=== PATIENT | male | born 1950 | race Caucasian/White ===

== ENCOUNTER → 2017-02-18 | Outpatient (CLI) | payer MEDICARE ==
[2017-02-18 12:01] LABS: EKG EKG PERFORMED
[2017-02-18 12:52] LABS: Partial Thromboplastin Time 25.1 sec (22.0-30.0); Prothrombin Time 10.5 sec (9.0-12.0)
[2017-02-18 12:54] LABS: Appearance,Urine Clear (Clear); Bilirubin,Urine Negative (Negative); Glucose,Urine (UA) Negative (Negative); Ketones,Urine Negative (Negative); Leukocyte Esterase,Urine Negative (Negative); Nitrite,Urine Negative (Negative); Protein,Urine Trace (Negative); Specific Gravity,Urine 1.013 (1.001-1.035); UA Billing (MACRO vs. MICRO) CHEM; Urobilinogen,Urine <2.0 mg/dL (<2.0)
[2017-02-18 12:55] LABS: Basophils # (A) 0.1 k/uL (0-0.2); Basophils % (A) 1 %; CH 31.2; CHCM 33.3; Eosinophils # (A) 0.5 k/uL (0-0.7); Eosinophils % (A) 6 %; HCT 42.7 % (39.0-53.0); HGB 13.6 gm/dL (13.0-17.5); Luc # (Auto) 0.16; Luc % (Auto) 2; Lymphocytes % (A) 11 %; MCHC 31.8 g/dL (31.0-37.0); MCV 94.2 fL (80.0-100.0); Mean Platelet Volume 8.2; Monocytes # (A) 0.8 k/uL (0-1.0); Monocytes % (A) 9 %; Neutrophils # (A) 6.2 k/uL (1.3-7.7); Neutrophils % (A) 71 %; RBC 4.53 m/uL (4.30-5.90); RDW 14.7 % (11.5-15.5); WBC 8.7 k/uL (3.8-10.6); WBC (Perox) 8.72
[2017-02-18 12:58] LABS: Anion Gap 9 mmol/L; Blood Urea Nitrogen 23 mg/dL (9-20); Calcium 9.7 mg/dL (8.4-10.2); Carbon Dioxide 23 mmol/L (22-30); Chloride 108 mmol/L (98-107); Glucose 161 mg/dL (74-99); Non-African American GFR(MDRD) >60 (>60 ml/min/1.73 sqM); Potassium 5.4 mmol/L (3.5-5.1); Sodium 140 mmol/L (137-145)
--- NOTE | 2017-02-18 13:02 | XR ---
EXAMINATION TYPE: XR chest 2V DATE OF EXAM: 02/18/2017 COMPARISON: Chest x-ray February 12, 2017 HISTORY: Presurgical study TECHNIQUE: Frontal and lateral views of the chest are obtained. FINDINGS: Background of chronic emphysematous changes felt present. There is some eventration of righ t hemidiaphragm with blunting of right posterior costophrenic angle suggesting new tiny right pleural effusion. There is some residual right basilar scarring and/or atelectasis redemonstrated. Left idris g remains clear. The cardiac silhouette size is stable and upper limits of normal. Surgical changes b ilateral humeral heads is partially imaged. IMPRESSION: Chronic emphysematous change with new small right pleural effusion and patchy right basil ar scarring and/or atelectasis redemonstrated.
== END | disposition home or self-care (01) ==
LOC: LABWHC1 11:30
PROVIDERS: ATTEND Orthopaedic Surgery Orthopaedic Surgery of the Spine
DX: Z01.818 Encounter for other preprocedural examination (principal); M48.00 Spinal stenosis, site unspecified; J43.9 Emphysema, unspecified; J90 Pleural effusion, not elsewhere classified; Z79.01 Long term (current) use of anticoagulants; Z01.810 Encounter for preprocedural cardiovascular examination
CPT/HCPCS: 36415; 71020; 80048; 81003; 85025; 85610; 85730; 93005

== ENCOUNTER → 2017-02-20 | Outpatient (CLI) | payer MEDICARE | END | disposition home or self-care (01) | LOC: LABPAT 13:48 | PROVIDERS: ATTEND Physician Assistant | DX: Z01.812 Encounter for preprocedural laboratory examination (principal) | CPT/HCPCS: 87070 ==

== ENCOUNTER 2017-02-27 06:17 | Inpatient (IN) | payer MEDICARE ==
[2017-02-19 12:45] VITALS: BMI 29.5
[~2017-02-27 06:17] MED LIST: BACITRACIN 50,000 UNIT, POLYMYXIN B 500,000 UNIT in SODIUM CHLORIDE 0.9% IRRIGATIO 1,00... IRRIGATION ONE; HYDROmorphone 1 MG/ML 1 ML SYRINGE IVP PRN; LACTATED RINGERS 1,000 ML IV SCH; LIDOCAINE 1% 20 ML VIAL (10MG/ML) FOR IV START INTRADERMA PRN; ONDANSETRON 4 MG/2 ML VIAL IVP ONE; SCOPOLAMINE 1.5MG/72HR PATCH TRANSDERM ONE; ceFAZolin 2 GM in SODIUM CHLORIDE 0.9% 100 ML IVPB ONE
[2017-02-27 07:17] LABS: Glucose,Whole Blood 142 mg/dL (75-99)
[2017-02-27] MEDS: LACTATED RINGERS 1,000 ML IV SCH (07:18)
[2017-02-27 08:08] LABS: Basophils # (A) 0.1 k/uL (0-0.2); Basophils % (A) 1 %; CHCM 33.2; Eosinophils # (A) 0.4 k/uL (0-0.7); Eosinophils % (A) 5 %; HCT 38.3 % (39.0-53.0); HDW 2.85; HGB 12.3 gm/dL (13.0-17.5); Luc # (Auto) 0.14; Luc % (Auto) 2; Lymphocytes # (A) 1.1 k/uL (1.0-4.8); Lymphocytes % (A) 12 %; MCH 30.2 pg (25.0-35.0); MCHC 32.1 g/dL (31.0-37.0); Monocytes # (A) 0.8 k/uL (0-1.0); Monocytes % (A) 9 %; Neutrophils # (A) 6.1 k/uL (1.3-7.7); Neutrophils % (A) 71 %; RBC 4.08 m/uL (4.30-5.90); RDW 14.3 % (11.5-15.5); WBC 8.6 k/uL (3.8-10.6); WBC (Perox) 8.84
[2017-02-27] MEDS ORDERED: GLYCOPYRROLATE 0.2 MG/ML 2 ML VIAL ONE (08:25)
[2017-02-27] MEDS ORDERED: SUCCINYLCHOLINE CHLORIDE 100 MG/5 ML SYR IV ONE (08:25)
[2017-02-27] MEDS ORDERED: ePHEDrine SULFATE/0.9% NACL/PF 50 MG/5 ML SYRINGE IV ONE (08:25)
[2017-02-27] MEDS ORDERED: PHENYLEPHRINE-0.9% NACL SYG 1 MG/10 ML SYRINGE ONE (08:25)
[2017-02-27] MEDS ORDERED: PROPOFOL 10 MG/ML 20 ML VIAL IV ONE (08:25)
[2017-02-27] MEDS ORDERED: fentaNYL (PF) 50 MCG/ML 2 ML AMP ONE (08:25)
[2017-02-27] MEDS ORDERED: HYDROmorphone (PF) 1 MG/ML ONE (08:25)
[2017-02-27] MEDS ORDERED: MIDAZOLAM 2 MG/2 ML VIAL ONE (08:25)
[2017-02-27 08:34] LABS: Potassium 5.2 mmol/L (3.5-5.1)
[2017-02-27] MEDS ORDERED: THROMBIN (BOVINE) 5,000 UNIT VIAL TOPICAL ONE (08:59)
[2017-02-27] MEDS ORDERED: GELATIN SPONGE,ABSORB (SMALL) 1 EACH SPONGE TOPICAL ONE (08:59)
[2017-02-27] MEDS ORDERED: BUPIVACAINE (PF) 0.25% 30 ML VIAL SQ ONE (08:59)
[2017-02-27] MEDS ORDERED: SODIUM CHLORIDE 0.9% 1,000 ML IV ONE ×3 (09:15→12:42)
[2017-02-27] MEDS: BUPIVACAINE LIPOSOME/PF 1.3% 20 ML, BUPIVACAIN-EPI 0.5%-1:200,000 25 ML, SODIUM CHLORID... MISCELLANE ONE ×6 (10:48→13:11)
[2017-02-27] MEDS ORDERED: SODIUM CHLORIDE 0.9% (PF) 10 ML VIAL ONE (10:48)
[2017-02-27] MEDS ORDERED: MAGNESIUM HYDROXIDE 2,400 MG/10 ML CUP PO PRN (13:37)
[2017-02-27] MEDS ORDERED: BENZOCAINE/MENTHOL LOZENG 1 EACH LOZENGE MUCOUS MEM PRN (13:37)
[2017-02-27] MEDS ORDERED: ONDANSETRON 4 MG/2 ML VIAL IVP PRN (13:38)
[2017-02-27] MEDS ORDERED: HYDROcodone/APAP 5-325MG 1 EACH TAB PO PRN (13:38)
[2017-02-27] MEDS ORDERED: IPRATROPIUM 0.5 MG/2.5 ML NEBU INHALATION PRN (13:44)
--- NOTE | 2017-02-27 13:54 | P.OP ---
Date of Procedure: 02/27/17 Preoperative Diagnosis: Spinal stenosis L3 4 L4 5 Spondylolisthesis L4 5 Neurogenic claudication Lower extremity radiculopathy Low back pain History of prior laminectomy decompression L4 5 Postoperative Diagnosis: Same Anesthesia: GETA Pathology: none sent Condition: stable Disposition: PACU Description of Procedure: DESCRIPTION OF PROCEDURE(S): BRIEF OPERATIVE NOTE Preoperative Diagnosis: Spinal stenosis, spondylolisthesis L4 5, degenerative disc disease, neurogenic claudication, lower extremity radiculopathy, history of prior laminectomy L4 5 Postoperative Diagnosis: Same Procedure: Laminectomy and decompression L3 4 with wide bilateral foraminotomies and facetectomy on the left Laminectomy and revision compression L4 5 with bilateral foraminotomy and facetectomy on the left Minimally invasive Posterior lateral decompression and fusion L3 4 L4 5 Minimally invasive Transforaminal lumbar interbody fusion for a 360 fusion L3 4 L4 5 Discectomy for decompression L3 4 L4 5 Placement of interbody graft L3 4 L4 5 Harvesting of bone marrow aspirate be of the pedicle of L3 on the right Local autogenous bone grafting Use of Cell Saver Use of bone graft extenders Surgeon: Dr. Lin Video Manager: Floyd Baer is present throughout the entire the case persistence during positioning, dissection, exposure, visualization, and all crucial elements of the case as well as closure. Anesthesia: General anesthesia per Dr. Dr. Zacarias Estimated blood loss: Approximately 750 mL Complications: None apparent Components implanted: K2M minimally invasive Festus pedicle screw system with 6 screws measuring 6.5 x 50 mm 2 rods measuring 70 mm and 2 [place] interbody cages with 1 asked to empty sponge and 30 mL of fibrous bone matrix to supplemental local autogenous bone graft Disposition: To recovery room in good stable condition. OPERATIVE INDICATIONS The patient has had long-standing issues in their lower back and lower extremities. He was having progressive pain in his lower back with worsening radicular symptoms and neurogenic claudication his bilateral lower extremities much worse on the left than the right. He had been through history of decompression and his lumbar spine many years ago which had given him some relief but over the past several years has been having worsening symptoms. The patient has been through conservative treatment. He is not having any prolonged relief despite conservative treatment for his lumbar spine. We discussed various treatment options including surgery, and the patient wishes to proceed with surgery We discussed the risk, patient's alternatives and benefits of surgery including but not limited to, risk of bleeding risk of infection, risk of need for further surgery, risk of decreased, loss of motion, muscle function, malunion nonunion, hardware failure, nerve damage, paralysis, heart attack, blindness and . OPERATIVE SUMMARY After discussing all the risks, patient alternatives and benefits at length, the patient elected to proceed with surgical intervention, signed informed consent, and presented for their procedure. The patient was seen and examined in the preoperative holding area and the surgical site was marked. The patient was given antibiotics and brought to the operating room. The patient was sedated and intubated by anesthesia in standard fashion. The patient was positioned on to the operating room table in a prone position on the appropriate frame which was well-padded and well molded. We were careful to pad any bony prominences and pressure points. We were careful to maintain the patient's cervical spine and good neutral alignment and position throughout. The patient was prepped and draped in a normal standard fashion. An appropriate timeout and keystone protocol performed. We were able to proceed with the surgery. The local wound area was infiltrated with local anesthetic. I was able utilize C-arm guidance to establish appropriate position over the pedicles bilaterally at the appropriate levels at L3 4 and 5. With the appropriate levels confirmed was able to make small stab incisions over the appropriate pedicle sites bilaterally. Utilizing C-arm in his house able to establish a Jamshidi needle over the lateral aspect of the pedicle and advanced the trocar into the pedicle being careful not to breech superiorly inferiorly medially or laterally. Position was confirmed regularly with AP and lateral images on C-arm. I was able to establish the trocar into the pedicle appropriately into the posterior aspect of the vertebral body bilaterally at the appropriate levels at L3 4 and 5. This was done at each of the pedicle positions and each of the vertebrae. At L3 on the right I used a device with the Jamshidi needle and the syringe to aspirate bone marrow from the vertebral body of the pedicle of L3 on the right. This was utilized to supplemental local autogenous bone graft and bone supplement. At each of the levels I was able place the guidewire into the trocar and into the vertebral body appropriately under C-arm guidance. Dissection was taken down over the wire to the appropriate starting position for the screw placed. The appropriate length screw was chosen, threaded over the guidewire and screwed appropriately into the pedicle and vertebral body under C-arm guidance in excellent alignment and position with good bony purchase. This is done at each of the screw sites at the appropriate levels at L3-L4 and L5 bilaterally. With the screws intact I extended the incision to connect the screw hole sites on the most symptomatic side on the left. I dissected down to establish access over the pars and lamina to the base of the spinous process. I was able to expose the facet joint. The capsule the facet was taken down and showed some facet arthrosis at the joint. I was able to use a combination of curettes and Kerrison rongeurs and a high-speed drill to take down the facet joint and do a facetectomy. Partial laminectomy was also performed. I was able get excellent foraminal decompression and central decompression with undermining across midline to perform a laminectomy centrally and contralaterally. As able get good central decompression. The ligamentum flavum was taken down to further decompress centrally and at bilateral neural foramen. I was able to expose the disc space and visualize the traversing nerve root. Note was made of some disc protrusion at the level causing further compression of the nerve root. I was able to establish a annulotomy at the appropriate level protecting soft tissue and neural structures. No was made of some disc desiccation at the disc. I performed a complete discectomy with accommodation of curettes and rasps and scrapers. I was able get good endplate preparation at the disc space. I sized for the appropriate size interbody spacer protecting the soft tissue and neural structures. The wound was copiously irrigated and suctioned dry. There is no evidence of any dural tear or leak. I was able to pack the disc space with local autogenous bone graft as well as a small amount of infuse which was also placed into the interbody cage itself. Protecting the soft tissue structures and neural structures I was able place the interbody cage in good alignment and good position with good fit and fill at the interbody space. His issues was confirmed with C-arm guidance. This was done first at L4 5 and then at L3 4 in similar fashion. Good hemostasis maintained. There is no evidence of any dural tear or leak. The wound was irrigated and suctioned dry. With the hardware intact, intraoperative C-arm imaging was again taken which showed good alignment and position of the hardware at the appropriate levels at L3 4 and L4 5. We were then able to measure, contour and place the rods and appropriate hardware bilaterally. I was able to place capcrews, tighten them down, and shear them off appropriately. The sheared portion was counted and accounted for. With this intact I was able to place the local autogenous bone graft with additional bone graft enhancer as necessary into the posterior lateral gutters over the decorticated transverse processes. The remainder of the bone graft was placed over the facet joint on the contralateral side after taking down the facet joint capsule. With the bone graft intact, a stable construct, and good decompression at the appropriate levels, we were able to proceed with closure. Good hemostasis was maintained. There is no evidence of dural tear or leak. The fascia was closed for a watertight closure. he subcuticular tissue was closed with absorbable suture. The wound was cleaned and dried and dressed with the appropriate dressing. The drapes were broken down. The patient was gently rolled back onto their hospital bed being careful to maintain their cervical spine and good neutral alignment and position. They were woken up by anesthesia, extubated, and brought to the recovery room in good stable condition. The patient will be admitted to the hospital for appropriate postoperative care , medical management and monitoring. We will continue to follow them closely about the postoperative course.
[2017-02-27] MEDS ORDERED: MIDAZOLAM 2 MG/2 ML VIAL IV ONE (13:57)
[2017-02-27] MEDS: HYDROmorphone 0.5 MG/0.5 ML SYRINGE IVP PRN ×2 (14:12→14:27)
--- NOTE | 2017-02-27 14:22 | FL ---
Fluoroscopy History: MIN INVASIVE LUMBAR FUSION 2 MIN 22 SEC FL TIME USED DURING MIN. INVASIVE LUMBAR FUSION
--- NOTE | 2017-02-27 14:23 | XR ---
EXAMINATION TYPE: XR lumbar spine 2 or 3V DATE OF EXAM: 02/27/2017 CLINICAL HISTORY: MIN INVASIVE LUMBAR FUSION TECHNIQUE: 2 paper images submitted. COMPARISON: None Pedicular screws are seen bilaterally at L3-L4 and L5.
[2017-02-27 14:35] LABS: Glucose,Whole Blood 182 mg/dL (75-99)
[2017-02-27] MEDS: HYDROmorphone 1 MG/ML 1 ML SYRINGE IVP PRN ×2 (16:15→22:44)
[2017-02-27 16:39] LABS: Glucose,Whole Blood 154 mg/dL (75-99)
[2017-02-27] MEDS: IPRATROPIUM-ALBUTEROL 3 ML NEB INHALATION PRN ×2 (16:43→20:26)
[2017-02-27] MEDS: HYDROcodone/APAP 5-325MG 1 EACH TAB PO PRN ×2 (17:01→21:04)
[2017-02-27] MEDS: metFORMIN 500 MG TAB PO SCH (17:02)
[2017-02-27] MEDS: REPAGLINIDE 1 MG TAB PO SCH (17:03)
[2017-02-27] MEDS: INSULIN LISPRO (humaLOG) 300 UNIT/3 ML VIAL SQ SCH ×2 (17:41→21:13)
[2017-02-27] MEDS: ceFAZolin 2 GM in SODIUM CHLORIDE 0.9% 100 ML IVPB SCH ×2 (17:41→23:31)
[2017-02-27] MEDS: SODIUM CHLORIDE 0.9% 1,000 ML IV SCH (17:46)
[2017-02-27] MEDS: Acetaminophen-Codeine 300-30mg TAB PO PRN (19:54)
[2017-02-27] MEDS: SYMBICORT 80-4.5 MCG INHALER INHALATION SCH (20:26)
[2017-02-27 20:41] LABS: Hemoglobin A1C 6.5 % (4.2-6.1)
[2017-02-27 20:59] LABS: Glucose,Whole Blood 153 mg/dL (75-99)
[2017-02-27] MEDS: ATORVASTATIN 40 MG TAB PO SCH (21:16)
[2017-02-28] MEDS: HYDROcodone/APAP 5-325MG 1 EACH TAB PO PRN ×6 (01:07→23:28)
[2017-02-28] MEDS: Acetaminophen-Codeine 300-30mg TAB PO PRN (02:06)
[2017-02-28] MEDS: CALCIUM CARBONATE 500 MG CHEWABLE PO PRN ×3 (03:36→17:23)
[2017-02-28] MEDS: HYDROmorphone 1 MG/ML 1 ML SYRINGE IVP PRN ×2 (03:37→07:58)
[2017-02-28] MEDS: SODIUM CHLORIDE 0.9% 1,000 ML IV SCH ×3 (03:37→19:21)
[2017-02-28] MEDS: LACTATED RINGERS 1,000 ML IV SCH (06:45)
[2017-02-28 06:59] LABS: Glucose,Whole Blood 150 mg/dL (75-99)
[2017-02-28] MEDS: IPRATROPIUM-ALBUTEROL 3 ML NEB INHALATION PRN (07:29)
[2017-02-28] MEDS: SYMBICORT 80-4.5 MCG INHALER INHALATION SCH ×2 (07:29→20:52)
[2017-02-28 07:51] LABS: Anion Gap 8 mmol/L; Blood Urea Nitrogen 11 mg/dL (9-20); Calcium 8.9 mg/dL (8.4-10.2); Carbon Dioxide 23 mmol/L (22-30); Chloride 108 mmol/L (98-107); Glucose 132 mg/dL (74-99); Non-African American GFR(MDRD) >60 (>60 ml/min/1.73 sqM); Potassium 5.2 mmol/L (3.5-5.1); Sodium 139 mmol/L (137-145)
[2017-02-28 08:07] LABS: Basophils # (A) 0.1 k/uL (0-0.2); Basophils % (A) 1 %; CH 30.9; CHCM 32.4; Eosinophils # (A) 0.3 k/uL (0-0.7); Eosinophils % (A) 2 %; HCT 33.1 % (39.0-53.0); HDW 2.76; HGB 10.5 gm/dL (13.0-17.5); Luc # (Auto) 0.12; Luc % (Auto) 1; Lymphocytes # (A) 0.6 k/uL (1.0-4.8); Lymphocytes % (A) 5 %; MCH 30.6 pg (25.0-35.0); MCHC 31.9 g/dL (31.0-37.0); Mean Platelet Volume 8.3; Monocytes # (A) 1.1 k/uL (0-1.0); Monocytes % (A) 9 %; Neutrophils # (A) 10.5 k/uL (1.3-7.7); Neutrophils % (A) 83 %; RBC 3.45 m/uL (4.30-5.90); RDW 14.1 % (11.5-15.5); WBC 12.6 k/uL (3.8-10.6); WBC (Perox) 13.49
[2017-02-28] MEDS: VIT A,C & E-LUTEIN-MINERALS 1 EACH TAB PO SCH (08:24)
[2017-02-28] MEDS: INSULIN LISPRO (humaLOG) 300 UNIT/3 ML VIAL SQ SCH ×4 (08:24→20:31)
[2017-02-28] MEDS: REPAGLINIDE 1 MG TAB PO SCH ×3 (08:25→17:24)
[2017-02-28] MEDS: ASPIRIN 325 MG TAB PO SCH (08:25)
[2017-02-28] MEDS: SENNOSIDES-DOCUSATE SODIUM 1 EACH TAB PO SCH (08:25)
[2017-02-28] MEDS: metFORMIN 500 MG TAB PO SCH ×2 (08:25→17:24)
[2017-02-28] MEDS: LISINOPRIL 20 MG TAB PO SCH (08:26)
[2017-02-28] MEDS: METOPROLOL TARTRATE 25 MG TAB PO SCH (08:26)
[2017-02-28] MEDS ORDERED: NICOTINE POLACRILEX 2 MG GUM BUCCAL PRN (08:40)
[2017-02-28] MEDS ORDERED: NON-FORMULARY DRUG (Liraglutide [Victoza 3-Pak] 1.8 MG) SQ SCH (09:00)
--- NOTE | 2017-02-28 09:34 | CONS ---
CONSULTATION DATE OF CONSULTATION: 02/27/2017 REASON FOR CONSULTATION: Medical management requested by Dr. Lin. CONSULTATION: This is a patient I saw yesterday evening on 3 surgical floor. Patient is a pleasant 67-year-old patient who follows with Dr. Leal. The patient has undergone lumbar surgery by Dr. Lin. Post procedure, patient had some pain lying in bed. Patient has difficulty getting around, Patient's chronic stable medical conditions include diabetes, hyperlipidemia, hypertension and coronary artery disease. Currently no nausea, vomiting. The patient at the baseline had slight shortness of breath. Patient did eat a small amount of supper. REVIEW OF SYSTEMS: CONSTITUTIONAL: None. HEENT: Decreased hearing with hearing aid. RESPIRATORY: Mild baseline shortness of breath. CARDIOVASCULAR: None. GASTROINTESTINAL: None. GENITOURINARY: Mooney catheter. DERMATOLOGICAL: None. HEMATOLOGICAL: None. LYMPHATIC: None. PSYCHIATRY: None. NEUROLOGICAL: None. MUSCULOSKELETAL: Chronic low back pain with some radiculopathy. PAST MEDICAL HISTORY: Diabetes mellitus type 2, hyperlipidemia, hypertension, coronary artery disease with stent. PAST SURGICAL HISTORY: Back surgery, cardiac cath with stent, joint replacement, bilateral knee replacement, bilateral shoulder surgery, lumbar decompression of L1. SOCIAL HISTORY: Smokes a pack a day. , no alcohol. FAMILY HISTORY: Reviewed, noncontributory to presentation. HOME MEDICATIONS: Glucophage 1000 mg p.o. b.i.d., PreserVision 1 capsule p.o. daily, stool softener 1 tablet p.o. daily p.r.n., Prandin 0.5 p.o. a.c. t.i.d., 10 mg p.o. daily, metoprolol 25 p.o. daily, Victoza 1.8 mg subcu in the morning, Combivent Respimat 2 puffs q.i.d. p.r.n., Atrovent nebulizers q.i.d. p.r.n., Neurontin 300 mg p.o. t.i.d. p.r.n., Symbicort 80/4.5 b.i.d., Lipitor 40 mg q.h.s., aspirin 325 mg p.o. daily, Tylenol No. 3 one tablet q.6 p.r.n. ALLERGIES: None. PHYSICAL EXAMINATION: Temperature 97, pulse 53, respiratory 18, blood pressure 135/75, pulse ox 96% on 2 L. GENERAL APPEARANCE: Average build, lying in bed, slightly uncomfortable. EYES: Pupils equal, conjunctivae normal. HEENT: External appearance of nose, ear, oral cavity normal. Hearing aid in place. NECK: JVD unable to assess. Mass not palpable. Respiratory effort normal. LUNGS: Diminished breath sounds. CARDIOVASCULAR: First and second sounds normal. No edema. ABDOMEN: Soft, nontender. Liver and spleen not palpable. LYMPHATICS: No lymph node palpable in the neck or axillae. PSYCHIATRY: Alert and oriented x3. Mood and affect normal. LOWER EXTREMITIES: Venodyne boots in place. MUSCULOSKELETAL: Dressing over the lumbar spine.. INVESTIGATIONS: White count 8.6, hemoglobin 12.3, potassium 5.2, Accu-Cheks noted, HGB A1c is 6.5. ASSESSMENT: 1. Patient has undergone laminectomy and decompression in the lumbar area with a diagnosis of spinal stenosis, L3, L4 and L5, spondylolisthesis at L4-5, neurogenic claudication, lower extremity radiculopathy. 2. Coronary artery disease with prior history of stent. 3. Diabetes mellitus, type 2. Chronically on oral hyperglycemic. 4. Hyperlipidemia. 5. Essential hypertension. 6. Hard of hearing, uses hearing aids. 7. Chronic nicotine dependence. Patient is an active cigarette smoker. 8. Chronic obstructive pulmonary disease in a current smoker. PLAN: Home medication will be resumed. Accu-Cheks will be followed. Will put the patient on scheduled nebulizers. Pain control per the Primary Team. Patient has got Venodyne boots for DVT prophylaxis. Care was discussed with the patient. Questions were answered. Thank you, Dr. Lin. MMODL / IJN: [id number] /
[2017-02-28] MEDS: GABAPENTIN 300 MG CAP PO PRN ×2 (09:41→17:24)
[2017-02-28] MEDS: NICOTINE 21MG/24HR PATCH TRANSDERM SCH (09:41)
--- NOTE | 2017-02-28 09:50 | P.PN ---
Progress Note - Text Postoperative day #1 Patient is seen and examined today at bedside. The patient has some pain around the surgical site as expected. Pain is being controlled with medication. He feels that his left lower extremity numbness and tingling is gone. He feels encouraged by the improvement at his left lower extremity. He was able to tolerate some breakfast this morning. Physical Exam Afebrile with stable vital signs Abdomen is soft nontender. Chest has good excursion deep and space expiration The incision site is clean dry and intact. No erythema there is no purulence. Dressing is clear Extremities have not had neurologic change from prior to surgery. He has sustained dorsal flexion plantarflexion and EHL intact bilateral lower extremities Calves and thighs were soft nontender without evidence of DVT. Assessment/Plan Postoperative day #1 status post minimally invasive decompression and fusion L3 4 and L4 5 for his spinal stenosis with spondylolisthesis and degenerative disease with lower extremity radiculopathy The patient's lower extremity symptoms have improved well already with his surgery. Patient is progressing as expected from the surgery. We will continue to increase the patient's mobilization with therapy. He was already able to get up out of bed and get to the bathroom and we'll continue to increase his mobilization over the next day or 2. We will continue pain control with oral or IV medications. We'll continue to follow patient closely.
[2017-02-28] MEDS: HYDROmorphone 0.5 MG/0.5 ML SYRINGE IVP PRN ×3 (11:09→21:40)
[2017-02-28] MEDS: IPRATROPIUM-ALBUTEROL 3 ML NEB INHALATION SCH ×4 (11:25→20:53)
[2017-02-28 11:38] LABS: Glucose,Whole Blood 183 mg/dL (75-99)
[2017-02-28 16:29] LABS: Glucose,Whole Blood 117 mg/dL (75-99)
[2017-02-28 18:01] LABS: Appearance,Urine Clear (Clear); Bilirubin,Urine Negative (Negative); Glucose,Urine (UA) Negative (Negative); Ketones,Urine Negative (Negative); Leukocyte Esterase,Urine Negative (Negative); Mucus,Urine Rare /hpf; Nitrite,Urine Negative (Negative); Particle Count 641; Protein,Urine Negative (Negative); RBC,Urine 4 /hpf (0-5); Specific Gravity,Urine 1.005 (1.001-1.035); UA Billing (MACRO vs. MICRO) MICRO; Urobilinogen,Urine <2.0 mg/dL (<2.0); WBC,Urine 3 /hpf (0-5)
--- NOTE | 2017-02-28 18:16 | PN ---
PROGRESS NOTE I am covering for Dr. Bynum. INTERVAL HISTORY: This 67-year-old gentleman who was admitted after back surgery is being closely monitored. No chest pain. No palpitations. No fever. PHYSICAL EXAM: HEENT: Alert, oriented x3. VITAL SIGNS: Pulse 70, blood pressure 140/61, respirations 16, temperature 98 degrees, pulse ox 94% on 2 L. HEENT: Conjunctivae normal. NECK: Supple. No JVD. CARDIOVASCULAR: S1 and S2 muffled. LUNGS: Breath sounds diminished at the bases. Few scattered rhonchi and crackles, left more than right. ABDOMEN: Soft. NERVOUS SYSTEM: Status post surgery. LABORATORY DATA: WBC 12.7, hemoglobin 10.5, sodium 139, potassium 3.2. ASSESSMENT: 1. Status post laminectomy and decompression L3, L4, and L5, for spondylolysis. 2. Coronary artery disease with stent. 3. Diabetes type 2. 4. Chronic obstructive pulmonary disease. 5. Hyperlipidemia. 6. Hypertension. 7. Hard of hearing. 8. History of nicotine dependence. RECOMMENDATIONS AND DISCUSSION: In this 67-year-old gentleman who presented with multiple medical issues, we will monitor the patient closely. Continue the current management and symptomatic treatment. Otherwise recommend continue the bronchodilators and incentive spirometry. DVT prophylaxis. Closely follow with surgery. Further recommendations to follow. MMODL / IJN: [id number] /
[2017-02-28 20:19] LABS: Glucose,Whole Blood 180 mg/dL (75-99)
[2017-02-28] MEDS: ATORVASTATIN 40 MG TAB PO SCH (20:30)
[2017-03-01] MEDS: HYDROmorphone 0.5 MG/0.5 ML SYRINGE IVP PRN ×3 (01:26→09:39)
[2017-03-01] MEDS: GABAPENTIN 300 MG CAP PO PRN ×2 (02:07→20:30)
[2017-03-01] MEDS: HYDROcodone/APAP 5-325MG 1 EACH TAB PO PRN (04:05)
[2017-03-01] MEDS: SODIUM CHLORIDE 0.9% 1,000 ML IV SCH (06:04)
[2017-03-01] MEDS: LACTATED RINGERS 1,000 ML IV SCH (06:06)
[2017-03-01 07:15] LABS: Glucose,Whole Blood 164 mg/dL (75-99)
[2017-03-01 07:43] LABS: Basophils # (A) 0.1 k/uL (0-0.2); Basophils % (A) 1 %; CH 30.2; CHCM 31.4; Eosinophils # (A) 0.1 k/uL (0-0.7); Eosinophils % (A) 1 %; HCT 30.9 % (39.0-53.0); HDW 2.87; HGB 9.8 gm/dL (13.0-17.5); Hypochromasia Slight; Luc # (Auto) 0.22; Luc % (Auto) 2; Lymphocytes # (A) 0.7 k/uL (1.0-4.8); Lymphocytes % (A) 6 %; MCH 30.6 pg (25.0-35.0); MCHC 31.8 g/dL (31.0-37.0); MCV 96.5 fL (80.0-100.0); Mean Platelet Volume 7.9; Monocytes # (A) 1.1 k/uL (0-1.0); Monocytes % (A) 9 %; Neutrophils # (A) 10.1 k/uL (1.3-7.7); Neutrophils % (A) 82 %; RDW 13.7 % (11.5-15.5); WBC 12.3 k/uL (3.8-10.6); WBC (Perox) 13.08
--- NOTE | 2017-03-01 07:49 | P.PN ---
Progress Note - Text Orthopedic Spine Patient is a pleasant 67-year-old male who is seen and examined at the bedside following posterior lateral decompression and fusion performed Saturday. Patient states they are doing well postsurgically. He is not currently experiencing any lower extremity radiculopathy of the bilateral lower extremities. He had numbness and tingling prior to surgery but states his symptoms have completely resolved. He does have some soreness at the surgical sites, which are expected. He states he felt pretty well yesterday and ambulating multiple times which may have caused an increase in his back pain. He has felt increased tightness of his lumbar spine. He's been eating and voiding without significant difficulty. He has not had a bowel movement yet but his abdomen is soft and he is not feeling any abdominal pain. He states he has had some heartburn postsurgically that has been controlled with Tums. He is happy with his progress so far postsurgically. He is hoping to continue to improve today with plans to hopefully discharge home tomorrow, 03/02/2017. . Physical Exam Lumbar Fusion: Status post surgical day number 2 Patient is awake, alert, and oriented 3 Vital signs stable Good chest excursion with deep inspiration and expiration Abdomen soft nontender Dorsiflexion, plantarflexion, and extensor hallucis longus positive sustained bilaterally No signs or symptoms of DVT; no calf pain; pneumatic cuffs not currently intact bilateral lower extremities Dressing is dry and intact; no erythema, purulence, or signs of infection No active drainage from the incision sites No significant pain with palpation of the incision sites Dressing removed during physical examination and nonstick Telfa and Tegaderm reapplied Neurovascularly intact bilaterally lower extremities Assessment: Minimally Invasive Posterior lateral decompression and fusion L3-4 and L4-5 Transforaminal lumbar interbody fusion 34 and L4-5 Neurogenic claudication L4-5 spondylolisthesis L3-4 and L4-5 spinal stenosis Low back pain Plan: 1. Ambulate as tolerated; work with Physical Therapy to increase mobilization 2. Continue pain control with IV and oral medications; we will plan to discontinue [place] 5 mg/325 mg and and [place] 7.5 mg/325 mg to try to better control his symptoms today. We will also add Valium 5 mg as needed every 8 hours for muscle spasms. We will plan to try to wean him off his IV Dilaudid today in anticipation for discharge home tomorrow. 3. Dressing changed to nonstick Telfa and Tegaderm 4. Medical management can continue to manage patient for patient's other medical issues 5. We will continue to follow the patient closely; patient continues to improve , we will plan for discharge home as early as tomorrow, 03/02/2017 6. Patient can follow-up with Floyd Amaya PA-C or Dr. Gamaliel Lin at [facility] in 2-3 weeks following discharge
[2017-03-01] MEDS: INSULIN LISPRO (humaLOG) 300 UNIT/3 ML VIAL SQ SCH ×4 (08:01→20:28)
[2017-03-01] MEDS: REPAGLINIDE 1 MG TAB PO SCH ×3 (08:02→18:18)
[2017-03-01] MEDS: metFORMIN 500 MG TAB PO SCH ×2 (08:02→18:18)
[2017-03-01] MEDS: HYDROcodone/APAP 7.5-325MG 1 EACH TAB PO PRN ×4 (08:46→20:29)
[2017-03-01] MEDS: LISINOPRIL 20 MG TAB PO SCH (08:47)
[2017-03-01] MEDS: ASPIRIN 325 MG TAB PO SCH (08:48)
[2017-03-01] MEDS: NICOTINE 21MG/24HR PATCH TRANSDERM SCH (08:48)
[2017-03-01] MEDS: METOPROLOL TARTRATE 25 MG TAB PO SCH (08:48)
[2017-03-01] MEDS: VIT A,C & E-LUTEIN-MINERALS 1 EACH TAB PO SCH (08:49)
[2017-03-01] MEDS: SENNOSIDES-DOCUSATE SODIUM 1 EACH TAB PO SCH (08:51)
[2017-03-01] MEDS: IPRATROPIUM-ALBUTEROL 3 ML NEB INHALATION SCH ×4 (09:11→19:29)
[2017-03-01] MEDS: SYMBICORT 80-4.5 MCG INHALER INHALATION SCH ×2 (09:12→19:29)
[2017-03-01] MEDS: DIAZEPAM 5 MG TAB PO PRN ×3 (10:48→23:34)
[2017-03-01 11:04] LABS: Glucose,Whole Blood 169 mg/dL (75-99)
[2017-03-01 17:35] LABS: Glucose,Whole Blood 130 mg/dL (75-99)
--- NOTE | 2017-03-01 19:02 | PN ---
PROGRESS NOTE DATE OF SERVICE: 03/01/2017 This 67-year-old gentleman with a past medical history of multiple medical problems was admitted after laminectomy and decompression at L3-4, L4-5. No chest pain. No palpitations. No fever. PHYSICAL EXAMINATION: On exam, alert and oriented x3. Pulse 77, blood pressure 99/61, respiration 16, temperature 98.4, pulse ox 91% on room air. HEENT: Conjunctivae normal. NECK: No jugular venous distention. CARDIOVASCULAR SYSTEM: S1, S2 muffled. RESPIRATORY: Breath sounds diminished at the bases. A few scattered rhonchi and crackles. Expiratory wheezing at present. ABDOMEN: Soft, non-tender. LEGS: No edema. No swelling. NERVOUS SYSTEM: No focal deficit.. LABS: WBC 12.6, hemoglobin 9.8. ASSESSMENT: 1. Status post laminectomy and decompression L3-4, L4-5 for spondylosis. 2. Coronary artery disease and stent. 3. Diabetes mellitus, type 2. 4. Chronic obstructive pulmonary disease. 5. Hyperlipidemia. 6. Hypertension. 7. Hard of hearing. 8. History of nicotine dependence. RECOMMENDATIONS AND DISCUSSION: I recommend to continue current management, continue symptomatic treatment, incentive spirometry. Closely monitor. Guarded prognosis. Closely follow with Surgery. Further recommendations to follow. MMODL / IJN: [id number] /
[2017-03-01 20:17] LABS: Glucose,Whole Blood 176 mg/dL (75-99)
[2017-03-01] MEDS: ATORVASTATIN 40 MG TAB PO SCH (20:28)
[2017-03-02] MEDS: HYDROcodone/APAP 7.5-325MG 1 EACH TAB PO PRN ×3 (00:36→04:40)
[2017-03-02] MEDS: GABAPENTIN 300 MG CAP PO PRN ×2 (04:36→13:35)
[2017-03-02] MEDS: LACTATED RINGERS 1,000 ML IV SCH (05:53)
[2017-03-02] MEDS: IPRATROPIUM-ALBUTEROL 3 ML NEB INHALATION SCH ×2 (07:14→11:04)
[2017-03-02] MEDS: SYMBICORT 80-4.5 MCG INHALER INHALATION SCH (07:14)
[2017-03-02] MEDS: INSULIN LISPRO (humaLOG) 300 UNIT/3 ML VIAL SQ SCH ×2 (07:46→12:28)
[2017-03-02 07:53] LABS: Glucose,Whole Blood 158 mg/dL (75-99)
[2017-03-02 07:54] LABS: Basophils # (A) 0.1 k/uL (0-0.2); Basophils % (A) 1 %; CHCM 32.9; Eosinophils # (A) 0.2 k/uL (0-0.7); Eosinophils % (A) 3 %; HCT 28.5 % (39.0-53.0); HDW 2.83; HGB 9.2 gm/dL (13.0-17.5); Luc # (Auto) 0.17; Luc % (Auto) 2; Lymphocytes # (A) 0.8 k/uL (1.0-4.8); Lymphocytes % (A) 8 %; MCH 30.8 pg (25.0-35.0); MCHC 32.4 g/dL (31.0-37.0); Mean Platelet Volume 8.4; Monocytes # (A) 0.8 k/uL (0-1.0); Monocytes % (A) 9 %; Neutrophils # (A) 7.2 k/uL (1.3-7.7); Neutrophils % (A) 78 %; RDW 14.1 % (11.5-15.5); WBC 9.3 k/uL (3.8-10.6); WBC (Perox) 9.84
[2017-03-02 08:00] VITALS: RESP 16
[2017-03-02] MEDS: metFORMIN 500 MG TAB PO SCH (08:01)
[2017-03-02] MEDS: ASPIRIN 325 MG TAB PO SCH (08:01)
[2017-03-02] MEDS: DIAZEPAM 5 MG TAB PO PRN (08:01)
[2017-03-02] MEDS: REPAGLINIDE 1 MG TAB PO SCH ×2 (08:01→13:35)
[2017-03-02] MEDS: LISINOPRIL 20 MG TAB PO SCH (08:02)
[2017-03-02] MEDS: METOPROLOL TARTRATE 25 MG TAB PO SCH (08:02)
[2017-03-02] MEDS: VIT A,C & E-LUTEIN-MINERALS 1 EACH TAB PO SCH (08:02)
[2017-03-02] MEDS: SENNOSIDES-DOCUSATE SODIUM 1 EACH TAB PO SCH (08:08)
[2017-03-02] MEDS ORDERED: HYDROcodone/APAP 5-325MG 1 EACH TAB PO PRN (10:20)
[2017-03-02] MEDS ORDERED: BISACODYL 5 MG TABLET.DR PO STA (10:22)
--- NOTE | 2017-03-02 10:23 | P.DS ---
Providers Date of admission: 02/27/17 06:17 Expected date of discharge: 03/02/17 Attending physician: Kisha Lin Consults: 02/27/17 13:38 Consult Physician Routine Consulting Provider: Beto Bynum Consult Reason/Comments: medical management Do you want consulting provider notified?: Yes Primary care physician: Clyde Leal - Discharge Diagnosis(es) (1) Neurogenic claudication Current Visit: Yes Status: Acute (2) Lumbar spinal stenosis Current Visit: Yes Status: Acute (3) Spondylolisthesis, lumbar region Current Visit: Yes Status: Acute (4) Low back pain Current Visit: Yes Status: Acute (5) Radiculopathy with lower extremity symptoms Current Visit: Yes Status: Acute Hospital Course: This is a pleasant 67-year-old male who presented with Neurogenic claudication, L4-5 spondylolisthesis, L3-4 and L4-5 spinal stenosis, and low back pain who failed outpatient conservative therapy. He was admitted for a Minimally invasive posterior lateral decompression and fusion at L3-4 and L4-5 with transforaminal lumbar interbody fusion L3-4 and L4-5. Patient has had significant improvement in his lower extremity radiculopathy postsurgically. He is not currently experiencing any pain in bilateral legs. He continues to have some stiffness and pain at the surgical sites, but states his pain has been fairly well controlled with medication. He's been able to ambulate without significant difficulty. He has not had a bowel movement since prior to surgical intervention. He does feel some abdominal distention and has been passing lots of gas. He has received a stool softener and laxative but has not had a bowel movement yet this morning. We discussed we'll continue to help facilitate a bowel movement prior to his discharge home. The patient tolerated the procedure well and did well postoperatively. Condition on day of discharge stable. Patient will be discharged home after he is able to have a bowel movement. Patient was cleared preoperatively for surgery by Dr. Leal. Patient currently denies any nausea, vomiting, fever, or chills. Patient is eating and voiding freely without difficulty. Patient may shower Tegaderm dressing intact. Patient may remove Tegaderm dressing in 3 days and shower without a dressing at that time. Patient should keep Steri-Strips intact and allow them to fall off naturally. Patient should refrain from driving until at least after their first follow-up appointment in the office. Patient should avoid excessive bending, lifting, and twisting; no lifting greater than 10 pounds. Patient will be given a prescription for [place] 7.5 mg/325 mg 1-2 tabs every 6 hours as needed for pain, dispense #90 and Valium 5 mg/325 mg 1 tab every 8 hours dispense #90 at discharge. He may resume regular home scheduled medications as previous he prescribed but should discontinue Tylenol #3. Physical Exam on day of discharge: Patient is awake, alert, and oriented 3 Vital signs stable Good chest excursion with deep inspiration and expiration Abdomen soft nontender No signs or symptoms of DVT; no calf pain Extensor hallucis longus, plantarflexion, and dorsiflexion positive sustained bilateral lower extremities Incision is clean, dry, and intact; no erythema, purulence, or signs of infection Tegaderm dressing and non-stick Telfa intact Procedures: Minimally invasive posterior lateral decompression and fusion at L3-4 and L4-5 with transforaminal lumbar interbody fusion L3-4 and L4-5. Patient Condition at Discharge: Stable Plan - Discharge Summary New Discharge Prescriptions: New Diazepam [Valium] 5 mg PO TID PRN #90 tab PRN Reason: Muscle Spasm HYDROcodone/APAP 7.5-325MG [[place] 7.5-325] 1 - 2 each PO Q6HR PRN #90 tab PRN Reason: Pain No Action metFORMIN HCL [Glucophage] 1,000 mg PO BID Ramipril [Ramipril] 10 mg PO QAM Ipratropium/Albuterol Sulfate [Combivent Respimat Inhaler] 2 puff INHALATION RT-QID PRN PRN Reason: Shortness Of Breath Ipratropium Nebulized [Atrovent Nebulized] 1 appful INHALATION RT-QID PRN PRN Reason: copd Budesonide-Formot 80-4.5 Mcg [Symbicort 80-4.5 Mcg Inhaler] 2 puff INHALATION RT-BID Atorvastatin [Lipitor] 40 mg PO HS Aspirin 325 mg PO DAILY Acetaminophen-Codeine 300-30mg [Tylenol #3] 1 tab PO Q6H PRN PRN Reason: Pain Repaglinide [Prandin] 0.5 mg PO AC-TID Liraglutide [Victoza 3-Casey] 1.8 mg SQ QAM Gabapentin [Neurontin] 300 mg PO TID PRN PRN Reason: Pain Metoprolol Tartrate 25 mg PO QAM Vit C/E/Zn/Coppr/Lutein/Zeaxan [Preservision Areds 2 Softgel] 1 cap PO DAILY Stool Softener(Unknown Name/Do 1 tab PO DAILY PRN PRN Reason: Constipation Discharge Medication List Aspirin 325 mg PO DAILY 04/26/14 [History] Atorvastatin [Lipitor] 40 mg PO HS 04/26/14 [History] Budesonide-Formot 80-4.5 Mcg [Symbicort 80-4.5 Mcg Inhaler] 2 puff INHALATION RT -BID 04/26/14 [History] Ipratropium Nebulized [Atrovent Nebulized] 1 appful INHALATION RT-QID PRN [History] Ipratropium/Albuterol Sulfate [Combivent Respimat Inhaler] 2 puff INHALATION RT- QID PRN 04/26/14 [History] Ramipril [Ramipril] 10 mg PO QAM 04/26/14 [History] metFORMIN HCL [Glucophage] 1,000 mg PO BID 04/26/14 [History] Acetaminophen-Codeine 300-30mg [Tylenol #3] 1 tab PO Q6H PRN 02/19/17 [History] Gabapentin [Neurontin] 300 mg PO TID PRN 02/19/17 [History] Liraglutide [Victoza 3-Casey] 1.8 mg SQ QAM 02/19/17 [History] Metoprolol Tartrate 25 mg PO QAM 02/19/17 [History] Repaglinide [Prandin] 0.5 mg PO AC-TID 02/19/17 [History] Stool Softener(Unknown Name/Do 1 tab PO DAILY PRN 02/19/17 [History] Vit C/E/Zn/Coppr/Lutein/Zeaxan [Preservision Areds 2 Softgel] 1 cap PO DAILY [History] Diazepam [Valium] 5 mg PO TID PRN #90 tab 03/02/17 [Rx] HYDROcodone/APAP 7.5-325MG [[place] 7.5-325] 1 - 2 each PO Q6HR PRN #90 tab [Rx] Follow up Appointment(s)/Referral(s): Floyd Amaya, RAJENDRA [PH[employer]ICIAN [employer]] - 2 Weeks (Patient may follow-up with Floyd Amaya PA-C or Dr. Gamaliel Lin at [facility] in 2-3 weeks following discharge. ) Activity/Diet/Wound Care/Special Instructions: 1. Patient may shower with Tegaderm dressing intact. 2. Patient may remove Tegaderm dressing in 3 days and shower without a dressing at that time. 3. Patient should keep Steri-Strips intact and allow them to fall off naturally. 4. Patient should refrain from driving until at least after their first follow- up appointment in the office. 5. Patient should avoid excessive bending, twisting, and lifting; no lifting greater than 10 pounds 6. Take medications as prescribed 7. Do not soak in tub No anti-inflammatory medication except daily home dose of aspirin Discharge Disposition: HOME SELF-CARE
[2017-03-02] MEDS ORDERED: HYDROcodone/APAP 7.5-325MG 1 EACH TAB PO PRN (11:10)
[2017-03-02 11:11] VITALS: PULSE 72
[2017-03-02 11:56] LABS: Glucose,Whole Blood 183 mg/dL (75-99)
[2017-03-02] MEDS: NICOTINE 21MG/24HR PATCH TRANSDERM SCH (12:20)
[2017-03-02 13:52] VITALS: BP 133/69; TEMP 98
--- NOTE | 2017-03-02 18:18 | P.PN ---
Subjective This 67-year-old gentleman with a past medical history of multiple medical problems was admitted after spine surgery. Patient is improved significantly. Blood sugars well controlled. No chest pain or shortness of breath. Objective - Vital Signs Vital signs: Vital Signs Temp 98 F 03/02/17 13:51 Pulse 72 03/02/17 13:51 Resp 16 03/02/17 13:51 BP 133/69 03/02/17 13:51 Pulse Ox 99 03/02/17 13:51 Intake & Output 03/01/17 03/02/17 03/02/17 18:59 06:59 18:59 Intake Total 780 900 Output Total 300 750 Balance 480 900 -750 Weight 90.718 kg Intake: IV 600 900 Sodium Chloride 0.9% 1, 600 900 000 ml @ 75 mls/hr IV . [id number] ZULMA Rx#:[id number] Oral 180 Output: Urine 300 750 Other: Voiding Method Toilet # Voids 2 - Exam On exam, alert and oriented x3. HEENT: Conjunctivae normal. eyes normal. NECK: No JVD. No thyroid enlargement. No LNs CARDIOVASCULAR: S1, S2 muffled. No murmur RESPIRATION: Breath sounds diminished in the bases. No rhonchi or crackles. No bronchial breathing. ABDOMEN: Soft, nontender . No guarding. no masses palpable. No ascites, No hepatosplenomegaly.Bowel sounds heard. LEGS: No edema. no swelling NERVOUS SYSTEM: Cranial N 2-12 grossly normal. Moves all 4 limbs. No focal deficits. No sensory deficit. No signs of cerebellar dysfucntion. Skin: no ulcer no rash Joints: No active swelling. No inflammation. Extension the back status post surgery Lymphatic system. No LN neck axilla or groin. - Labs CBC & Chem 7: 03/02/17 07:05 02/28/17 07:01 Labs: Abnormal Lab Results - Last 24 Hours (Table) 03/01/17 03/02/17 03/02/17 Range/Units 20:13 07:05 07:43 RBC 3.00 L (4.30-5.90) m/uL Hgb 9.2 L (13.0-17.5) gm/dL Hct 28.5 L (39.0-53.0) % Lymphocytes # 0.8 L (1.0-4.8) k/uL POC Glucose (mg/dL) 176 H 158 H (75-99) mg/dL 03/02/17 Range/Units 11:33 RBC (4.30-5.90) m/uL Hgb (13.0-17.5) gm/dL Hct (39.0-53.0) % Lymphocytes # (1.0-4.8) k/uL POC Glucose (mg/dL) 183 H (75-99) mg/dL Assessment and Plan Plan: Final diagnosis 1. Status post laminectomy and decompression of L3 for L5 of for further spondylosis. 2. CAD stent. Next in 3. Diabetes mellitus type 2. 4. COPD. 5. Hyperlipidemia. 6. Hypertension Plan In this 67-year-old gentleman I would recommend to continue the current medications. Resume the home medications. Incentive spirometry. Follow closely the primary physician. Rest of the recommendations per orthopedic surgery.
== END 2017-03-02 13:55 | disposition home or self-care (01) | DRG 460 ==
LOC: 2ORMAIN 06:17 → 3SUR 14:07
PROVIDERS: ADMIT Orthopaedic Surgery Orthopaedic Surgery of the Spine; ATTEND Orthopaedic Surgery Orthopaedic Surgery of the Spine
PROC: 0ST20ZZ Resection of Lumbar Vertebral Disc, Open Approach (ICD-10-PCS; 2017-02-27)
PROC: 07DS3ZZ Extraction of Vertebral Bone Marrow, Percutaneous Approach (ICD-10-PCS; 2017-02-27)
PROC: 0SG10A1 (ICD-10-PCS; principal; 2017-02-27 08:00)
DX: M48.06 Spinal stenosis, lumbar region (principal); I42.9 Cardiomyopathy, unspecified; K76.89 Other specified diseases of liver; J44.9 Chronic obstructive pulmonary disease, unspecified; I10 Essential (primary) hypertension; E11.9 Type 2 diabetes mellitus without complications; M43.16 Spondylolisthesis, lumbar region; E78.5 Hyperlipidemia, unspecified; F17.210 Nicotine dependence, cigarettes, uncomplicated; H91.90 Unspecified hearing loss, unspecified ear; I25.10 Atherosclerotic heart disease of native coronary artery without angina pectoris; M54.16 Radiculopathy, lumbar region; M51.36 Other intervertebral disc degeneration, lumbar region; I49.3 Ventricular premature depolarization; Z79.82 Long term (current) use of aspirin; Z79.84 Long term (current) use of oral hypoglycemic drugs; Z79.899 Other long term (current) drug therapy; Z96.653 Presence of artificial knee joint, bilateral; Z95.5 Presence of coronary angioplasty implant and graft; Z98.1 Arthrodesis status
CPT/HCPCS: 72100; 80048; 80051; 81001; 83036; 85025; 86850; 86900; 86901; 94640

== ENCOUNTER 2020-02-16 06:49 | Day surgery (SDC) | payer MEDICARE ==
[2020-02-02 11:46] VITALS: BMI 27.9
[~2020-02-16 06:49] MED LIST changes: -BACITRACIN 50,000 UNIT, POLYMYXIN B 500,000 UNIT in SODIUM CHLORIDE 0.9% IRRIGATIO 1,00... IRRIGATION ONE; -HYDROmorphone 1 MG/ML 1 ML SYRINGE IVP PRN; -LIDOCAINE 1% 20 ML VIAL (10MG/ML) FOR IV START INTRADERMA PRN; -ONDANSETRON 4 MG/2 ML VIAL IVP ONE; -SCOPOLAMINE 1.5MG/72HR PATCH TRANSDERM ONE; -ceFAZolin 2 GM in SODIUM CHLORIDE 0.9% 100 ML IVPB ONE
[2020-02-16 07:08] VITALS: TEMP 98.1
[2020-02-16] MEDS ORDERED: LIDOCAINE 1% (10MG/ML) FOR IV START INTRADERMA ONE (07:22)
[2020-02-16] MEDS ORDERED: PROPOFOL 10 MG/ML 20 ML VIAL IV ONE (07:27)
[2020-02-16 07:37] LABS: Glucose,Whole Blood 180 mg/dL (75-99)
--- NOTE | 2020-02-16 08:02 | P.PCN ---
Date of Procedure: 02/16/20 Description of Procedure: BRIEF HISTORY: Patient is a 69-year-old male with a personal history of colon polyps presents for outpatient colonoscopy. No change in bowel habits, blood per rectum. No family history of colon cancer. He reports last colonoscopy was 5 years ago. PROCEDURE PERFORMED: Colonoscopy with polypectomy. PREOPERATIVE DIAGNOSIS: Personal history of colon polyps, last colonoscopy 5 years ago by. ESTIMATED BLOOD LOSS: Minimal. IV sedation per Anesthesia. PROCEDURE: After informed consent was obtained, the patient, was brought into the endoscopy unit. IV sedation was administered by Anesthesia under continuous monitoring. Digital rectal examination was normal. Initially the Olympus CF-190 flexible video colonoscope was then inserted in the rectum, gradually advanced into the cecum without any difficulty. Careful examination was performed as the scope was gradually being withdrawn. Ileocecal valve and the appendiceal orifice were visualized and appeared normal. Prep was excellent. Mucosa of the cecum, ascending colon, transverse colon, descending colon, sigmoid colon, and rectum appeared normal, with 4 diminutive polyps measuring 2-3 mm in size removed from the transverse colon, descending colon and sigmoid colon 2 with cold forceps po lypectomy. Retroflexion was performed in the rectum and no lesions were seen, low-grade internal hemorrhoids and. The patient tolerated the procedure well. IMPRESSION: 4 diminutive polyps with cold forcep polypectomy, 2 from the sigmoid colon, and one from the transverse colon and descending colon. Low-grade internal hemorrhoids. RECOMMENDATIONS: Findings of this examination were discussed with the patient and his . Okay to resume diet. Okay to resume medication. Await pathology from polypectomies. Would recommend repeat colonoscopy in 5 years for personal history of colon polyps and pathology from polypectomies.
[2020-02-16 08:30] VITALS: BP 130/71; PULSE 71; RESP 20
== END 2020-02-16 08:30 | disposition home or self-care (01) ==
LOC: ORWHC2ENDO 06:49
PROVIDERS: ATTEND Internal Medicine
DX: Z12.11 Encounter for screening for malignant neoplasm of colon (principal); K63.5 Polyp of colon; K63.89 Other specified diseases of intestine; K64.8 Other hemorrhoids; D12.4 Benign neoplasm of descending colon; Z86.010 Personal history of colon polyps; I25.10 Atherosclerotic heart disease of native coronary artery without angina pectoris; I10 Essential (primary) hypertension; E78.5 Hyperlipidemia, unspecified; J44.9 Chronic obstructive pulmonary disease, unspecified; E11.9 Type 2 diabetes mellitus without complications; M19.90 Unspecified osteoarthritis, unspecified site; H91.90 Unspecified hearing loss, unspecified ear; Z72.0 Tobacco use; Z79.84 Long term (current) use of oral hypoglycemic drugs; Z79.51 Long term (current) use of inhaled steroids; Z79.82 Long term (current) use of aspirin; Z79.899 Other long term (current) drug therapy; Z96.653 Presence of artificial knee joint, bilateral; Z95.5 Presence of coronary angioplasty implant and graft; Z98.890 Other specified postprocedural states
CPT/HCPCS: 88305; 45380; J2704

== ENCOUNTER 2021-11-13 05:53 | Day surgery (SDC) | payer MEDICARE ==
[2021-11-09 16:40] VITALS: BMI 27.2
[2021-11-13] MEDS ORDERED: HEPARIN SODIUM,PORCINE 2,500 UNIT in SODIUM CHLORIDE 0.9% 250 ML IRRIGATION PRN (05:54)
[2021-11-13] MEDS ORDERED: ALPRAZolam 0.25 MG TAB PO PRN (05:54)
[2021-11-13] MEDS ORDERED: ATORVASTATIN 80 MG TAB PO STA (05:54)
[2021-11-13] MEDS ORDERED: HEPARIN SODIUM,PORCINE 10,000 UNIT in SODIUM CHLORIDE 0.9% 1,000 ML IRRIGATION PRN (05:54)
[2021-11-13] MEDS ORDERED: NITROGLYCERIN SL TABS 0.4 MG TAB SUBLINGUAL PRN (05:54)
[2021-11-13] MEDS ORDERED: ALPRAZolam 0.5 MG TAB PO PRN (05:54)
[2021-11-13] MEDS ORDERED: SODIUM CHLORIDE 0.9% 1,000 ML in EMPTY BAG 1 BAG IV SCH (05:54)
[2021-11-13] MEDS ORDERED: ASPIRIN 325 MG TAB PO STA (05:54)
[2021-11-13 06:37] LABS: Glucose,Whole Blood 183 mg/dL (75-99)
[2021-11-13 06:49] LABS: Basophils # (A) 0.1 k/uL (0-0.2); Basophils % (A) 1 %; Eosinophils # (A) 0.3 k/uL (0-0.7); Eosinophils % (A) 3 %; HCT 35.2 % (39.0-53.0); HGB 10.4 gm/dL (13.0-17.5); Hypochromasia Marked; Lymphocytes # (A) 1.1 k/uL (1.0-4.8); Lymphocytes % (A) 10 %; MCH 26.9 pg (25.0-35.0); MCHC 29.5 g/dL (31.0-37.0); MCV 91.2 fL (80.0-100.0); Mean Platelet Volume 8.5; Monocytes # (A) 0.9 k/uL (0-1.0); Monocytes % (A) 8 %; Neutrophils # (A) 8.8 k/uL (1.3-7.7); Neutrophils % (A) 76 %; Platelet Count 290 k/uL (150-450); RBC 3.87 m/uL (4.30-5.90); RDW 15.8 % (11.5-15.5); WBC 11.6 k/uL (3.8-10.6)
[2021-11-13 06:53] VITALS: TEMP 97.7
[2021-11-13 07:03] LABS: Calcium 8.7 mg/dL (8.4-10.2); Potassium 5.5 mmol/L (3.5-5.1)
[2021-11-13] MEDS ORDERED: fentaNYL (PF) 50 MCG/ML 2 ML AMP ONE (07:06)
[2021-11-13] MEDS: BENZOCAINE SPRAY 1 CAN MUCOUS MEM ONE ×2 (07:10→07:15)
[2021-11-13] MEDS ORDERED: fentaNYL (PF) 50 MCG/ML 2 ML AMP IVP ONE (07:16)
[2021-11-13] MEDS ORDERED: MIDAZOLAM 2 MG/2 ML VIAL IVP ONE (07:16)
[2021-11-13] MEDS ORDERED: VERAPAMIL 2.5 MG/ML 2 ML AMP ONE (07:17)
[2021-11-13] MEDS ORDERED: IV FLUID CONTINUATION 1,000 ML IV ONE (07:22)
--- NOTE | 2021-11-13 07:35 | P.PCN ---
Date of Procedure: 11/13/21 Description of Procedure: Indication: Evaluation of mitral valve Procedure Description: After explaining the procedure to the patient, it's risk and complications, blood pressure, heart rate and O2 saturation were monitored. The throat was sprayed with Cetacaine. Patient received 2 mg intravenous Versed, 50 mcg intravenous fentanyl. The probe was introduced into the esophagus without difficulty. Images were obtained. Following that, the probe was removed. There was no immediate complication. Findings: Left atrial size is dilated, left atrial appendage is normal. Left ventricular size is normal the inferior wall appears to be hypokinetic, ejection fraction 45-50%. The aortic valve revealed fibrocalcific changes with preserved opening. Thickening of the mitral valve leaflets was noted, tricuspid valve appears to be normal. No pericardial effusion was noted. The descending thoracic aorta re vealed mild to moderate atherosclerotic changes. Contrast bubble study revealed very late minor shunting. Doppler: Pulse wave and color Doppler was obtained and revealed severe mitral regurgitation, eccentric with moderate tricuspid and mild aortic regurgitation. There was a small PFO with [id number] shunting. Conclusion: 1. Dilated left atrium 2. Normal left ventricle size with mild decrease in the ejection fraction 3. Severe eccentric mitral regurgitation 4. And moderate tricuspid regurgitation with mild aortic regurgitation 5. Small PFO with [id number] shunting
[2021-11-13] MEDS: LIDOCAINE 1% INJ 10MG/ML (30 ML VIAL-PF) SQ ONE ×3 (07:46→07:58)
[2021-11-13] MEDS ORDERED: VERAPAMIL SYRINGE (5 MG/10 ML) INTRAARTER ONE (07:49)
[2021-11-13] MEDS ORDERED: HEPARIN SODIUM 1,000 UN/ML (10ML VL) ONE (08:01)
[2021-11-13] MEDS ORDERED: HEPARIN SODIUM 1,000 UN/ML (10ML VL) IV ONE (08:05)
[2021-11-13] MEDS ORDERED: IOPAMIDOL-370 125ML BTL INJ ONE (08:26)
[2021-11-13] MEDS ORDERED: RX INFO: IV CONTRAST WAS GIVEN 1 EACH MISC MISCELLANE PRN (08:35)
[2021-11-13] MEDS ORDERED: IPRATROPIUM 0.5 MG/2.5 ML NEBU INHALATION PRN (08:36)
[2021-11-13 08:37] LABS: O2 Sat Blood Gas 68.5 %
[2021-11-13 08:43] LABS: O2 Sat Blood Gas 97.8 %
[2021-11-13] MEDS ORDERED: SODIUM CHLORIDE 0.9% 1,000 ML IV SCH (08:45)
[2021-11-13 08:47] LABS: O2 Sat Blood Gas 62.5 %
[2021-11-13] MEDS ORDERED: NON FORMULARY DRUG (Fluticasone/Umeclidin/Vilanter [Trelegy Ellipta 100-62.5-25] 1 EACH Bl INHALATION SCH (09:00)
[2021-11-13] MEDS ORDERED: PIOGLITAZONE 15 MG TAB PO SCH (09:00)
[2021-11-13] MEDS ORDERED: NON FORMULARY DRUG (Liraglutide [Victoza 3-Pak] 0.6 MG/0.1 ML Pen.Injctr) SQ SCH (09:00)
[2021-11-13 11:18] VITALS: RESP 16
[2021-11-13 12:26] VITALS: BP 110/58; PULSE 66
--- NOTE | 2021-11-13 13:14 | P.CARDCATH ---
Date of Procedure: 11/13/21 Description of Procedure: Cardiac Catheterization: The patient's a 71-year-old male with a known history of CAD, diabetes, hypertension and hyperlipidemia who presented with progressive dyspnea, evidence of mitral regurgitation and new onset atrial fibrillation. Recommendations were made regarding cardiac catheterization, the risks and the complications were discussed with the patient who is in full understanding and agreement. 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 Using Xylocaine Anesthesia and Seldinger technique, a 6-Kosovan sheath was introduced in the right radial artery . Attempts to advance the wire in the right brachial venous sheath were unsuccessful, using Xylocaine anesthesia in the Seldinger technique an 8-Kosovan sheath were introduced in the right femoral vein. Subsequently, selective coronary angiography performed using a 5-Kosovan 3.5 bend Iván catheter. Multiple views of the coronary artery including hemiaxial views were obtained. The 5-Kosovan Pigtail catheter was used to cross the aortic valve and LVEDP was calculated. Following that right heart catheterization was performed using [place]-Varghese catheter, multiple pressures and this was obtained. Following that, catheter and sheath were removed. Hemostasis was obtained with deployment of TR band and compression of the right femoral vein. There was no immediate complication. Patient was returned to room in stable condition. Of note, the patient received a total of 4500 units of intravenous heparin as well as intra-arterial verapamil. There was no immediate complications. Findings: Fluoroscopy: Showed severe calcification involving the LAD and the right coronary artery Left main: This is a size vessel, bifurcating into LAD and left circumflex, left main has no high-grade stenosis. LAD: This is a large size vessel, reaching to the apex, giving rise to 2 diagonal branch. The LAD in the proximal and midsegment has intimal disease of 20-30%. Left circumflex: This is a nondominant vessel, giving rise to one obtuse marginal branch of moderate caliber. The proximal segment of the obtuse marginal branch has 50% stenosis. The left circumflex after the takeoff of the obtuse marginal branch has 99% stenosis, the vessel beyond that is small in caliber. RCA: This vessel is totally occluded proximally with no significant antegrade flow. Collaterals from the left system to the distal PDA and PLV were noted. [Left] Ventriculogram: Was not performed Hemodynamics: Cardiac output by thermodilution 6.7 L/m with an index of 3.3 L/m pulmonary artery systolic 65 with a diastolic of 23 and a mean of 40 mmHg, which pressure V-wave of 30 with a mean of 20 mmHg, right ventricle systolic pressure of 65 and end-diastolic of 15 mmHg, right atrium V-wave of 16 with a mean of 12 mmHg. There was no gradient across the aortic valve, LVEDP 12-16 mmHg. Pulmonary artery saturation 69%, right atrium 63%, arterial 98%. Cardiac output Carmen 6.6 L/m. Conclusion: 1. Calcified coronary arteries 2. Chronically occluded proximal RCA 3. Subtotally occluded mid left circumflex 4. Mild disease in the LAD 5. Moderate pulmonary hypertension Recommendations: The patient will be continued on maximal medical therapy and will be evaluated for possible mitral valve intervention. The findings and the recommendations were discussed with the patient and his family and they are in full und erstanding and agreement. Duration of sedation is 43 minutes.
[2021-11-13] MEDS ORDERED: REPAGLINIDE 1 MG TAB PO SCH (17:30)
[2021-11-13] MEDS ORDERED: ATORVASTATIN 80 MG TAB PO SCH (21:00)
[2021-11-14] MEDS ORDERED: lisinopriL 20 MG TAB PO SCH (09:00)
[2021-11-14] MEDS ORDERED: METOPROLOL TARTRATE 25 MG TAB PO SCH (09:00)
== END 2021-11-13 13:00 | disposition home or self-care (01) ==
LOC: CATHCVL 05:53
PROVIDERS: ATTEND Internal Medicine Interventional Cardiology
DX: I48.11 Longstanding persistent atrial fibrillation (principal); I08.3 Combined rheumatic disorders of mitral, aortic and tricuspid valves; Q21.1 Atrial septal defect; I70.0 Atherosclerosis of aorta; I25.10 Atherosclerotic heart disease of native coronary artery without angina pectoris; I25.84 Coronary atherosclerosis due to calcified coronary lesion; Z95.5 Presence of coronary angioplasty implant and graft; I27.20 Pulmonary hypertension, unspecified; E11.22 Type 2 diabetes mellitus with diabetic chronic kidney disease; I12.9 Hypertensive chronic kidney disease with stage 1 through stage 4 chronic kidney disease, or unspecified chronic kidney disease; N18.9 Chronic kidney disease, unspecified; J44.9 Chronic obstructive pulmonary disease, unspecified; E78.2 Mixed hyperlipidemia; I42.9 Cardiomyopathy, unspecified; Z79.4 Long term (current) use of insulin; Z79.01 Long term (current) use of anticoagulants; F17.210 Nicotine dependence, cigarettes, uncomplicated; Z79.899 Other long term (current) drug therapy; Z79.82 Long term (current) use of aspirin
CPT/HCPCS: 93312; 93320; 93325; 93460; 80048; 85018; 82810; 85025; 87635; C1769 ×4; C1894 ×2; C1751; J2250; J2001; J3010; J1644; Q9967

== ENCOUNTER 2021-11-19 22:47 | Emergency (ER) | payer MEDICARE ==
[2021-11-19] MEDS ORDERED: NITROGLYCERIN OINT 1 INCH/GM PACKET TOPICAL STA (22:58)
--- NOTE | 2021-11-19 23:03 | ED ---
Chest Pain HPI - General Stated Complaint: chest pain Time Seen by Provider: 11/19/21 22:51 Source: patient, RN notes reviewed - History of Present Illness Initial Comments: This is a pleasant 71-year-old male presents to emergency by complaining of chest pain. Patient has a history of cardiovascular disease. Patient states the pain started about 3 AM and continued to get worse today. He described a burning sensation in the left chest which radiated to the shoulder and the left jaw area. He did have some associated shortness of breath. No significant diaphoresis or nausea. Patient found some old nitroglycerin at home and took that at about 5 PM which did relieve the pain. However he then came back. Patient was given nitroglycerin in the EMS and was also given chewable aspirin. Patient states the pain has subsided at this time. Note that the patient is on Eliquis and has a history of atrial fibrillation Patient recently had a cardiac catheterization done by Dr. Man. This was done on November 13. Patient did have some blockages but there was no stent deployment. Apparently patient has some level valvular heart disease. No headache, no fever or chills, no changes in vision or hearing, no sore throat or difficulty with speech, no neck pain,, no abdominal pain, no nausea or vomiting, no changes in urination or bowel movements, no numbness or tingling, no extremity pain, no skin rashes or lesions. - Related Data Home Medications Medication Instructions Recorded Confirmed Aspirin 325 mg PO DAILY 04/26/14 11/13/21 Atorvastatin [Lipitor] 80 mg PO HS 04/26/14 11/13/21 Ipratropium Nebulized [Atrovent 1 appful INHALATION RT-QID PRN 04/26/14 11/13/21 Nebulized 0.2 MG/ML] Ramipril 10 mg PO QAM 04/26/14 11/13/21 metFORMIN HCL [Glucophage] 1,000 mg PO BID 04/26/14 11/13/21 Liraglutide [Victoza 3-Casey] 1.8 mg SQ QAM 02/19/17 11/13/21 Metoprolol Tartrate 25 mg PO QAM 02/19/17 11/13/21 Repaglinide [Prandin] 0.5 mg PO AC-SUPPER 02/19/17 11/13/21 Stool Softener(Unknown Name/Do 1 tab PO DAILY PRN 02/19/17 11/09/21 Vit C/E/Zn/Coppr/Lutein/Zeaxan 2 cap PO DAILY 02/19/17 11/13/21 [Preservision Areds 2 Softgel] Acetaminophen [Tylenol Extra 500 - 1,000 mg PO DIRECTED PRN 02/02/20 11/09/21 Strength] Pioglitazone [Actos] 15 mg PO DAILY 02/02/20 11/13/21 Apixaban [Eliquis] 5 mg PO BID 11/09/21 11/13/21 Fluticasone/Umeclidin/Vilanter 1 inhalation INHALATION DAILY 11/09/21 11/13/21 [Trelegy Ellipta 100-62.5-25] Furosemide [Lasix] 20 mg PO BID 11/09/21 11/13/21 Allergies Allergy/AdvReac Type Severity Reaction Status Date / Time No Known Allergies Allergy Verified 11/19/21 23:34 Review of Systems ROS Statement: Those systems with pertinent positive or pertinent negative responses have been documented in the HPI. ROS Other: All systems not noted in ROS Statement are negative. EKG Findings - EKG Comments: EKG Findings:: EKG done at 2255 reveals atrial fibrillation with a rate of 87. CO interval is not measurable. Other intervals are normal. Normal axis. Patient does have evidence of ST depression in the lateral precordial leads no evidence of ST elevation. When compared to the previous study from 11/13/2021 these depressions are new. Past Medical History Past Medical History: Atrial Fibrillation, COPD, Diabetes Mellitus, Hyperlipidemia, Hypertension, Myocardial Infarction (NH) Additional Past Medical History / Comment(s): BLE EDEMA Last Myocardial Infarction Date:: 2000 History of Any Multi-Drug Resistant Organisms: None Reported Past Surgical History: Back Surgery, Heart Catheterization With Stent, Joint Replacement, Orthopedic Surgery Additional Past Surgical History / Comment(s): LUIZ KNEE REPLACEMENT, LUIZ SHOULDER SX, ONE STENT, lumbar decompression, BACK INJECTIONS, COLONOSCOPY, LUIZ CATARACTS REMOVED WITH LENS IMPLANTS, Past Anesthesia/Blood Transfusion Reactions: No Reported Reaction Date of Last Stent Placement:: 2000 Smoking Status: Current every day smoker - Past Family History Father Family Medical History: No Reported History General Exam - General Exam Comments Initial Comments: Patient does not appear to be ill or toxic. No distress at the time I'm seeing him. General appearance: alert, in no apparent distress Head exam: Present: atraumatic, normocephalic, normal inspection Eye exam: Present: normal appearance, PERRL, EOMI. Absent: scleral icterus, conjunctival injection, periorbital swelling ENT exam: Present: normal exam, mucous membranes moist Neck exam: Present: normal inspection, full ROM. Absent: tenderness, meningismus, lymphadenopathy Respiratory exam: Present: normal lung sounds bilaterally. Absent: respiratory distress, wheezes, rales, rhonchi, stridor Cardiovascular Exam: Present: regular rate, normal rhythm, normal heart sounds. Absent: systolic murmur, diastolic murmur, rubs, gallop, clicks GI/Abdominal exam: Present: soft, normal bowel sounds. Absent: distended, tenderness, guarding, rebound, rigid, organomegaly, mass, bruit, pulsatile mass, hernia Rectal exam: Present: normal inspection, normal rectal tone. Absent: decreased rectal tone Extremities exam: Present: normal inspection, full ROM, normal capillary refill. Absent: tenderness, pedal edema, joint swelling, calf tenderness Back exam: Present: normal inspection Neurological exam: Present: alert, oriented X3, CN II-XII intact Psychiatric exam: Present: normal affect, normal mood Skin exam: Present: warm, dry, intact, pallor (Pale general). Absent: normal color, rash Course Vital Signs 11/19/21 11/20/21 11/20/21 23:15 01:00 01:43 Temperature 97.8 F 97.6 F 98 F Pulse Rate 91 94 102 H Respiratory 22 22 20 Rate Blood Pressure 103/61 104/59 102/63 O2 Sat by Pulse 97 100 99 Oximetry 11/20/21 11/20/21 11/20/21 01:57 02:27 02:41 Temperature 97.8 F 97.8 F Pulse Rate 100 100 100 Respiratory 20 20 20 Rate Blood Pressure 96/51 109/68 109/69 O2 Sat by Pulse 99 99 97 Oximetry - Reevaluation(s) Reevaluation #1: 11/19/21 23:51 Patient's hemoglobin came back at 5.7. This is a considerable drop over the last 6 days. 2 units of packed red blood cells ordered. Type and screen ordered. Protonix ordered as the patient was describing some burning chest pain. Reevaluation #2: 11/20/21 00:47 Medical record is reviewed Patient hemodynamically stable. Patient is informed of results and questions answered Patient in no distress Reevaluation #3: 11/20/21 This patient was again reevaluated prior to discharge and remained hemodynamically stable despite the hemoglobin. Blood transfusion process. Patient had no chest pain, no tachypnea. - Consultations Consultation #1: EKG findings were discussed in detail with the on-call biodiesel engine specialist, Dr. Ramos. Consultation #2: Was discussed with the ED physician at [facility], Dr. Espinoza who accepts transfer Chest Pain MDM - Differential Diagnosis AMI, ACS, Chest Wall Syndrome - MDM Cardiac catheter was from the right radial approach. Patient states she's been on Ahlquist for a few weeks. He denies any bleeding, denies any dark stools. Patient's hemoglobin 5.7. 2 units of packed red blood cells ordered. Rectal exam performed. Hemoccult sent. Protonix 80 mg ordered. Patient did receive aspirin in the ambulance on the way here. Patient states he did take his Eliquis earlier in the day. We'll hold any further antiplatelet or anticoagulation medications. Elevated troponin possibly related to demand from significant anemia transferred to [facility]. Consent for transfer obtained. Discussed findings with the patient and family. All questions answered. Discussed with Dr. Espinoza at the accepting hospital. Patient hemodynamic stable for transfer. Receiving 2 units of packed red blood cells. Critical Care Time Critical Care Time: Yes Total Critical Care Time: 50 Critical Care Time: Symptomatically anemia, chest pain, EKG changes consistent with ischemia. Disposition Clinical Impression: Acute coronary syndrome, Gastrointestinal bleeding, Non-STEMI (non-ST elevated myocardial infarction), Symptomatic anemia Narrative: Elevated troponin and an STEMI likely related to demand from significant anemia Disposition: OTHER INSTITUTION NOT DEFINED Condition: Fair Is patient prescribed a controlled substance at d/c from ED?: No Referrals: Clyde Leal DO [Primary Care Provider] - 1-2 days Time of Disposition: 01:53 - Out of Hospital Transfer - Req. Specs Out of Hospital Transfer - Requested Specifics: Other Emergency Center ([facility])
--- NOTE | 2021-11-19 23:36 | XR ---
EXAMINATION TYPE: XR chest 1V portable DATE OF EXAM: 11/19/2021 COMPARISON: 11/17/2020 HISTORY: Chest pain TECHNIQUE: FINDINGS: Heart is enlarged. There is no gross heart failure. There is some mild linear density at th e right lung base. No pleural effusion. There is very slight blunting of the costophrenic angles. IMPRESSION: There is some pleural reaction and subsegmental atelectasis at the lung bases mainly on t he right side which is increased compared to recent exam. No heart failure seen.
[2021-11-19 23:39] LABS: Anisocytosis Moderate; Basophils # (A) 0.1 k/uL (0-0.2); Basophils % (A) 1 %; Eosinophils # (A) 0.2 k/uL (0-0.7); Eosinophils % (A) 2 %; Hypochromasia Marked; Lymphocytes # (A) 1.1 k/uL (1.0-4.8); Lymphocytes % (A) 10 %; MCH 28.1 pg (25.0-35.0); MCHC 30.5 g/dL (31.0-37.0); MCV 92.2 fL (80.0-100.0); Macrocytosis Slight; Monocytes # (A) 0.7 k/uL (0-1.0); Monocytes % (A) 6 %; Neutrophils # (A) 8.3 k/uL (1.3-7.7); Neutrophils % (A) 78 %; Platelet Count 296 k/uL (150-450); RBC 2.04 m/uL (4.30-5.90); RDW 20.6 % (11.5-15.5); WBC 10.6 k/uL (3.8-10.6)
[2021-11-19 23:40] LABS: HCT 18.8 % (39.0-53.0); HGB 5.7 gm/dL (13.0-17.5)
[2021-11-19] MEDS ORDERED: PANTOPRAZOLE 40 MG/10 ML VIAL IVP ONE (23:49)
[2021-11-19 23:50] LABS: Albumin 3.1 g/dL (3.5-5.0); Calcium 7.9 mg/dL (8.4-10.2); Magnesium 2.2 mg/dL (1.6-2.3); Potassium 5.1 mmol/L (3.5-5.1); Total Bilirubin 0.2 mg/dL (0.2-1.3); Total Protein 5.1 g/dL (6.3-8.2)
[2021-11-20 00:41] LABS: INR 1.2 (<1.2); Partial Thromboplastin Time 23.6 sec (22.0-30.0); Prothrombin Time 12.5 sec (9.0-12.0)
[2021-11-20 01:52] VITALS: RESP 20
[2021-11-20 02:01] VITALS: PULSE 100
[2021-11-20] MEDS ORDERED: ACETAMINOPHEN TAB 500 MG TAB PO STA (02:03)
[2021-11-20] MEDS ORDERED: SODIUM CHLORIDE 0.9% 500 ML 500 ML IV ONE (02:03)
[2021-11-20 02:33] VITALS: TEMP 97.8
[2021-11-20 02:42] VITALS: BP 109/69
== END 2021-11-20 02:42 | disposition other institution (70) ==
LOC: EC 22:47
DX: I24.9 Acute ischemic heart disease, unspecified (principal); K92.2 Gastrointestinal hemorrhage, unspecified; I21.4 Non-ST elevation (NSTEMI) myocardial infarction; D64.9 Anemia, unspecified; J44.9 Chronic obstructive pulmonary disease, unspecified; F17.200 Nicotine dependence, unspecified, uncomplicated; I25.2 Old myocardial infarction; E11.9 Type 2 diabetes mellitus without complications; I10 Essential (primary) hypertension; I48.91 Unspecified atrial fibrillation; E78.5 Hyperlipidemia, unspecified; Z79.899 Other long term (current) drug therapy; Z79.02 Long term (current) use of antithrombotics/antiplatelets; Z79.51 Long term (current) use of inhaled steroids; Z79.84 Long term (current) use of oral hypoglycemic drugs; Z79.4 Long term (current) use of insulin; Z79.82 Long term (current) use of aspirin; Z79.01 Long term (current) use of anticoagulants
CPT/HCPCS: 36415; 71045; 80053; 82272; 83735; 83880; 84484; 85025; 85610; 85730; 86850; 86900; 86901; 86920; 93005; 96374; 99291

== ENCOUNTER 2021-12-25 05:34 | Day surgery (SDC) | payer MEDICARE ==
[2021-12-22 11:20] VITALS: BMI 28.0
[2021-12-25] MEDS ORDERED: SODIUM CHLORIDE 0.9% 1,000 ML IV SCH ×2 (06:00→07:45)
[2021-12-25 06:18] VITALS: TEMP 97.8
[2021-12-25 06:34] LABS: Glucose,Whole Blood 159 mg/dL (70-110)
[2021-12-25 07:03] LABS: Calcium 8.9 mg/dL (8.4-10.2); Potassium 4.6 mmol/L (3.5-5.1)
[2021-12-25] MEDS ORDERED: PROPOFOL 10 MG/ML 20 ML VIAL IV ONE (07:25)
[2021-12-25] MEDS ORDERED: BENZOCAINE SPRAY 1 CAN TOPICAL ONE (07:31)
[2021-12-25] MEDS ORDERED: IPRATROPIUM-ALBUTEROL 3 ML NEB INHALATION PRN (07:45)
[2021-12-25] MEDS ORDERED: HYDROcodone/APAP 7.5-325MG 1 EACH TAB PO PRN (07:45)
--- NOTE | 2021-12-25 07:50 | P.PCN ---
Date of Procedure: 12/25/21 Description of Procedure: Indication: Evaluation of left atrial appendage Procedure Description: After explaining the procedure to the patient, it's risk and complications, blood pressure, heart rate and O2 saturation were monitored. The throat was sprayed with Cetacaine. Patient received sedation per anesthesia department. The probe was introduced into the esophagus without difficulty. Images were obtained. Following that, the probe was removed. There was no immediate complication. Findings: Left atrial size is moderately dilated, left atrial appendage is normal. The ventricle size is normal. Inferior wall hypokinesis was noted with an ejection fraction of 45-50%. The aortic valve revealed fibrocalcific changes of the aortic cusps with preserved opening. Mild thickening of the mitral valve leaflets was noted. The tricuspid valve appears to be normal. Descending thoracic aorta was normal. No pericardial effusion was noted. Contrast bubble study revealed right to left shunting through a PFO. Doppler: Pulse wave and color Doppler were obtained, severe eccentric mitral regurgitation with moderate tricuspid regurgitation was noted. No clear shunting was documented. Conclusion: 1. Dilated left atrium with normal appearance of the left atrial appendage 2. Normal ventricle size with mild impairment of the systolic function 3. Severe eccentric mitral regurgitation was moderate tricuspid regurgitation 4. Evidence of PFO with [id number] shunting 5. Aortic sclerosis with no evidence of stenosis
--- NOTE | 2021-12-25 07:51 | P.PCN ---
Date of Procedure: 12/25/21 Description of Procedure: Cardioversion: Indication: Atrial fibrillation Procedure: After explaining the procedure to the patient as well as the risks and the complications and after performing transesophageal echocardiogram and obtaining sedate state. Anesthesia department synchronized biphasic cardiovers ion using 150 J, 200 J was successful in restoring sinus mechanism. There was no immediate complications.
[2021-12-25 08:24] VITALS: RESP 16
[2021-12-25] MEDS ORDERED: STOOL SOFTENER PO SCH (09:00)
[2021-12-25] MEDS ORDERED: FUROSEMIDE 40 MG TAB PO SCH (09:00)
[2021-12-25] MEDS ORDERED: PIOGLITAZONE 15 MG TAB PO SCH (09:00)
[2021-12-25] MEDS ORDERED: NON FORMULARY DRUG (Liraglutide [Victoza 3-Pak] 0.6 MG/0.1 ML Pen.Injctr) SQ SCH (09:00)
[2021-12-25] MEDS ORDERED: metFORMIN 500 MG TAB PO SCH (09:00)
[2021-12-25 09:05] VITALS: BP 141/71; PULSE 85
[2021-12-25] MEDS ORDERED: NON FORMULARY DRUG (Repaglinide 0.5 MG Tab) PO SCH (17:30)
[2021-12-25] MEDS ORDERED: PANTOPRAZOLE 40 MG TABLET PO SCH (17:30)
[2021-12-25] MEDS ORDERED: NON FORMULARY DRUG (Fluticasone/Umeclidin/Vilanter [Trelegy Ellipta 100-62.5-25] 1 EACH Bl INHALATION SCH (21:00)
[2021-12-25] MEDS ORDERED: FENOFIBRATE 160 MG TAB PO SCH (21:00)
[2021-12-25] MEDS ORDERED: FERROUS SULFATE 325 MG TAB PO SCH (21:00)
[2021-12-25] MEDS ORDERED: APIXABAN 5 MG TAB PO SCH (21:00)
[2021-12-25] MEDS ORDERED: ATORVASTATIN 80 MG TAB PO SCH (21:00)
[2021-12-26] MEDS ORDERED: lisinopriL 20 MG TAB PO SCH (09:00)
[2021-12-26] MEDS ORDERED: METOPROLOL TARTRATE 25 MG TAB PO SCH (09:00)
[2021-12-26] MEDS ORDERED: VIT A,C & E-LUTEIN-MINERALS 1 EACH TAB PO SCH (09:00)
== END 2021-12-25 09:09 | disposition home or self-care (01) ==
LOC: CATHCVL 05:34
PROVIDERS: ATTEND Internal Medicine Interventional Cardiology
DX: I48.11 Longstanding persistent atrial fibrillation (principal); I08.3 Combined rheumatic disorders of mitral, aortic and tricuspid valves; I25.10 Atherosclerotic heart disease of native coronary artery without angina pectoris; I12.9 Hypertensive chronic kidney disease with stage 1 through stage 4 chronic kidney disease, or unspecified chronic kidney disease; E11.22 Type 2 diabetes mellitus with diabetic chronic kidney disease; N18.9 Chronic kidney disease, unspecified; I25.5 Ischemic cardiomyopathy; F17.210 Nicotine dependence, cigarettes, uncomplicated; E78.2 Mixed hyperlipidemia; I49.3 Ventricular premature depolarization; J44.9 Chronic obstructive pulmonary disease, unspecified; K92.2 Gastrointestinal hemorrhage, unspecified; Z20.822 Contact with and (suspected) exposure to COVID-19; Z95.5 Presence of coronary angioplasty implant and graft; Z79.899 Other long term (current) drug therapy; Z79.01 Long term (current) use of anticoagulants; Z79.84 Long term (current) use of oral hypoglycemic drugs; Z79.51 Long term (current) use of inhaled steroids; Z98.890 Other specified postprocedural states
CPT/HCPCS: 93312; 93320; 93325; 92960; 80048; 87635; J2704

== ENCOUNTER → 2022-04-12 | Outpatient (CLI) | payer MEDICARE ==
--- NOTE | 2022-04-12 09:21 | XR ---
EXAMINATION TYPE: XR chest 2V DATE OF EXAM: 04/12/2022 9:12 AM COMPARISON: Chest radiographs from 11/19/2021 TECHNIQUE: XR chest 2V Frontal and lateral views of the chest. CLINICAL INDICATION:Male, 72 years old with history of OPEN HEART; FINDINGS: Lungs/Pleura: No pleural effusion or pneumothorax. Redemonstration of chronic parenchymal opacities i n the lower lungs with right greater than left. Underlying emphysematous changes. Pulmonary vascularity: Unremarkable. Heart/mediastinum: Cardiomediastinal silhouette is enlarged and stable. Atherosclerotic calcificatio ns are seen in the aorta. Musculoskeletal: Multiple level degenerative disc disease changes seen throughout the spine. Metallic anchors bilateral humeral heads redemonstrated. Partial visualization of lumbar fusion hardware. IMPRESSION: Chronic changes. No new focal infiltrate. No significant change from prior exams.
--- NOTE | 2022-04-12 09:48 | P.PN ---
Progress Note - Text Progress Note Date: 04/12/22 5 meter walk test completed without difficulty: #1 4.37 sec #2 4.08 sec #3 4.42 sec STS risk score for CAB/MVr calculated and discussed with patient/
[2022-04-12 10:24] LABS: Partial Thromboplastin Time 24.5 sec (22.0-30.0); Prothrombin Time 10.8 sec (9.0-12.0)
--- NOTE | 2022-04-12 12:17 | US ---
EXAMINATION TYPE: US carotid duplex BILAT DATE OF EXAM: 04/12/2022 COMPARISON: NONE CLINICAL HISTORY: OPEN HEART. PreOp. Hx CAD. TECHNIQUE: Carotid duplex ultrasound examination. Indirect Doppler criteria was utilized. FINDINGS: EXAM MEASUREMENTS: RIGHT: Peak Systolic Velocity (PSV) cm/sec ----- Right CCA: 104.7 ----- Right ICA: 169.3 ----- Right ECA: 96.9 ICA/CCA ratio: 1.6 RIGHT: End Diastole cm/sec ----- Right CCA: 14.1 ----- Right ICA: 43.2 ----- Right ECA: 0.0 LEFT: Peak Systolic Velocity (PSV) cm/sec ----- Left CCA: 78.8 ----- Left ICA: 86.7 ----- Left ECA: 146.8 ICA/CCA ratio: 1.1 LEFT: End Diastole cm/sec ----- Left CCA: 18.0 ----- Left ICA: 24.1 ----- Left ECA: 0.0 VERTEBRALS (direction of flow): Right Vertebral: Antegrade Left Vertebral: Antegrade Rhythm: Normal BIOASSAYIST NOTES: Plaque seen bilaterally. Elevated right ICA velocities and left ECA. Wall thicke moises. Moderate atherosclerotic plaque demonstrated within the bilateral carotid bulbs. IMPRESSION: 1. 50-69% stenosis involving the origin of the right internal carotid artery. 2. Less than 50% stenosis involving the origin of the left internal carotid artery. Criteria for Assigning % of Stenosis / Diameter reduction (Estimation based on the indirect measurements of the internal carotid artery velocities (ICA PSV). 1. Normal (no stenosis)=ICA PSV < 125 cm/s: ratio < 2.0: ICA EDV<40 cm/s. 2. Less than 50% stenosis=ICA PSV < 125 cm/s: ratio < 2.0: ICA EDV<40 cm/s. 3. 50 to 69% stenosis=ICA PSV of 125 to 230 cm/s: ration 2.0 ? 4.0: ICA EDV 40-100 cm/s. 4. Greater than 70% stenosis to near occlusion= ICA PSV > 230 cm/s: ratio > 4.0: ICA EDV > 100 cm/s. 5. Near occlusion= ICA PSV velocities may be low or undetectable: variable ratio and ICA EDV. 6. Total occlusion=unable to detect flow.
[2022-04-12 14:20] LABS: HCT 27.7 % (39.6-50.0); MCH 30.8 pg (27.0-32.0); MCHC 28.9 g/dL (32.0-37.0); MCV 106.5 fL (80.0-97.0); Mean Platelet Volume 10.3 fL (9.5-12.2); NRBC Per 100 WBC 0 /100 WBCS (0.0-0.0); Platelet Count 206 X 10*3/uL (140-440); RDW 17.2 % (11.5-14.5); WBC 6.14 X 10*3/uL (4.50-10.00)
[2022-04-12 14:33] LABS: ALT 17 U/L (10-49); AST 15 U/L (14-35); African American GFR (CKD) 48.8 (60.0-200.0); Albumin 4.3 g/dL (3.8-4.9); Albumin/Globulin Ratio 2.06 (1.60-3.17); Alkaline Phosphatase 29 U/L (41-126); BUN/Creat Ratio 20.19 Ratio (12.00-20.00); Blood Urea Nitrogen 32.3 mg/dL (9.0-27.0); Calcium 9.4 mg/dL (8.7-10.3); Carbon Dioxide 22.4 mmol/L (20.0-27.5); Chloride 112 mmol/L (96-109); Chol/HDL Ratio 2.78 Ratio; Globulin 2.1 g/dL (1.6-3.3); Glucose 185 mg/dL (70-110); LDL Cholesterol,Calculated 72.2 mg/dL (0.0-131.0); Magnesium 2.1 mg/dL (1.5-2.4); Non-African American GFR(CKD) 42.1 (60.0-200.0); Potassium 5.8 mmol/L (3.5-5.5); Sodium 143 mmol/L (135-145); Total Protein 6.4 g/dL (6.2-8.2)
[2022-04-12 15:38] LABS: Hepatitis A Antibody IgM Nonreactive (Nonreactive); Hepatitis B Core IgM Nonreactive (Nonreactive); Hepatitis B Surface Antigen Nonreactive (Nonreactive); Hepatitis C IgG Antibody Nonreactive (Nonreactive)
[2022-04-12 15:56] LABS: Appearance,Urine Clear (Clear); Bilirubin,Urine Negative (Negative); Blood,Urine Negative (Negative); Color,Urine Yellow (Yellow); Ketones,Urine Negative (Negative); Nitrite,Urine Negative (Negative); PH, Urine 5.5 (5.0-8.0); Specific Gravity,Urine 1.014 (1.001-1.030); Urobilinogen,Urine 0.2 (0.2,1.0)
--- NOTE | 2022-04-16 22:58 | US ---
EXAMINATION TYPE: US vein mapping BIL DATE OF EXAM: 04/12/2022 11:22 AM COMPARISON: NONE CLINICAL HISTORY: OPEN HEART. PreOP. SIDE PERFORMED: Bilateral TECHNIQUE: Lower extremity saphenous vein is examined and measured utilizing real time linear array sonography. Patient History: Smoker: Yes Heart Disease: Yes Previous DVT: No Vascular Surgery: No Discoloration: Yes Hypertension: No Diabetes: Yes Paralysis: No Varicosities: No Edema: Yes DUPLEX FINDINGS: Greater Saphenous: Color flow seen Measurements in mm: Right Greater Saphenous: Groin: 4.8 x 4.9 mm High Thigh: 3.6 x 2.7 mm Mid Thigh: 2.6 x 2.3 mm Above Knee: 2.4 x 2.0 mm Knee: 2.2 x 1.9 mm Below Knee: 2.0 x 1.6 mm Mid Calf: 3.9 x 2.4 mm At Ankle: 3.4 x 2.2 mm Left Greater Saphenous: Groin: 4.5 x 3.8 mm High Thigh: 4.4 x 3.5 mm Mid Thigh: 3.6 x 3.1 mm Above Knee: 2.9 x 2.6 mm Knee: 3.2 x 2.5 mm Below Knee: 3.3 x 2.3 mm Mid Calf: 1.8 x 1.2 mm At Ankle: 2.1 x 1.5 mm Edema channels visualized IMPRESSION: 1. Bilateral GSV measurements listed above. 2. Performing surgeon to determine viability as conduit.
--- NOTE | 2022-04-17 11:07 | US ---
EXAMINATION TYPE: US arterial LE single level DATE OF EXAM: 04/12/2022 11:41 AM CLINICAL HISTORY: OPEN HEART. Preop testing. Patient unable to lay flat. History of diabetes and hy perlipidemia. History of coronary artery disease and myocardial infarction. Doppler Waveforms: Right: Multiphasic Left: Biphasic Ankle-Brachial Indices: Right: 1.0 Left: 1.1 Toe Brachial Indices: Right: 0.7 Left: 0.6 IMPRESSION: Normal SATISH and TBI values bilaterally.
== END | disposition home or self-care (01) ==
LOC: LABWHC1 08:51
PROVIDERS: ATTEND Thoracic Surgery (Cardiothoracic Vascular Surgery)
DX: I25.10 Atherosclerotic heart disease of native coronary artery without angina pectoris (principal)
CPT/HCPCS: 36415; 71046; 80053; 80061; 80074; 81003; 83036; 83735; 84443; 85027; 85610; 85730; 87070; 87086; 93005; 93880; 93922; 93970; 94150

== ENCOUNTER 2022-04-19 05:43 | Inpatient (IN) | payer MEDICARE ==
[~2022-04-19 05:43] MED LIST changes: +ALBUMIN HUMAN 25% 50 ML IV ONE; +ALBUMIN HUMAN 5% 500 ML IVPB ONE; +ASPIRIN 325 MG TAB PO ONE; +ATORVASTATIN 10 MG TAB PO ONE; +CALCIUM CHLORIDE 100 MG/ML 10 ML SYRINGE IV ONE; +CARDIOPLEGIC SOLN (K+ 16 MEQ/L 1,000 ML with SODIUM BICARB (1 MEQ/ML) 20 ML, LIDOCAINE ... PERFUSION ONE; +CHLORHEXIDINE GLUCONATE 15 ML CUP MUCOUS MEM ONE; +CLEVIDIPINE BUTYRATE 25 MG in EMPTY BAG 1 BAG IV ONE; +HEPARIN SODIUM 1,000 UN/ML (10ML VL) IV ONE; +HEPARIN SODIUM,PORCINE 5,000 UNIT in SODIUM CHLORIDE 0.9% 500 ML 500 ML IV ONE; +INSULIN REGULAR 100 UNIT in SODIUM CHLORIDE 0.9% 100 ML IV ONE; +LACTATED RINGERS 1,000 ML IV ONE; -LACTATED RINGERS 1,000 ML IV SCH; +MAGNESIUM SULFATE 16.24 MEQ in EMPTY SYRINGE 1 SYR IV ONE; +MANNITOL 25% 12.5 GM/50 ML VIAL IV ONE; +METOPROLOL TARTRATE 12.5 MG TAB PO ONE; +NITROGLYCERIN SL TABS 0.4 MG TAB SUBLINGUAL ONE; +NITROGLYCERIN-D5W PMX 25 MG/250 ML BTL IV ONE; +NITROGLYCERIN-D5W PMX 50 MG in DEXTROSE/WATER 1 250ML.BAG IV ONE; +NOREPINEPHRINE 4 MG in SODIUM CHLORIDE 0.9% 250 ML IV ONE; +PAPAVERINE 360 MG in SODIUM CHLORIDE 0.9% 90 ML IV ONE; +PHENYLEPHRINE 10 MG/ML VIAL IV ONE; +PHENYLEPHRINE 40 MG in SODIUM CHLORIDE 0.9% 250 ML IV ONE; +PROTAMINE SULFATE 10 MG/ML 25 ML VIAL IV ONE; +PROTAMINE SULFATE 250 MG in EMPTY BAG 1 BAG IV ONE; +SODIUM BICARB 8.4% 50 ML SYR (1 MEQ/ML) IV ONE; +SODIUM CHLORIDE 0.9% 1,000 ML IV ONE; +TRANEXAMIC ACID 2,000 MG in SODIUM CHLORIDE 0.9% 80 ML IV ONE; +ceFAZolin 1,000 MG in SODIUM CHLORIDE 0.9% IRRIGATIO 1,000 ML IRRIGATION ONE; +propofoL 1,000 MG/100 ML VIAL IV ONE
[2022-04-19] MEDS ORDERED: LACTATED RINGERS 1,000 ML IV ONE (06:06)
[2022-04-19 06:11] LABS: Glucose,Whole Blood 148 mg/dL (70-110)
[2022-04-19 06:24] LABS: HCT 28.7 % (39.0-53.0); HGB 9.1 gm/dL (13.0-17.5); Hypochromasia Marked; MCH 32.2 pg (25.0-35.0); MCHC 31.8 g/dL (31.0-37.0); MCV 101.4 fL (80.0-100.0); Macrocytosis Slight; Mean Platelet Volume 9.2; Platelet Count 201 k/uL (150-450); Poikilocytosis Slight; RBC 2.83 m/uL (4.30-5.90); RDW 15.2 % (11.5-15.5); WBC 5.3 k/uL (3.8-10.6)
[2022-04-19 06:34] LABS: African American GFR (CKD) 56 (>60 ml/min/1.73 sqM); Anion Gap 7 mmol/L; Blood Urea Nitrogen 27 mg/dL (9-20); Calcium 9.1 mg/dL (8.4-10.2); Carbon Dioxide 24 mmol/L (22-30); Chloride 112 mmol/L (98-107); Glucose 162 mg/dL (74-99); Non-African American GFR(CKD) 49 (>60 ml/min/1.73 sqM); Potassium 4.9 mmol/L (3.5-5.1); Sodium 143 mmol/L (137-145)
[2022-04-19] MEDS ORDERED: LIDOCAINE 2% SYG (PF) 100 MG/5 ML ONE (07:45)
[2022-04-19] MEDS ORDERED: HEPARIN SODIUM,PORCINE 10,000 UNIT/ML 1 ML VIAL ONE (07:45)
[2022-04-19] MEDS ORDERED: MAGNESIUM SULFATE 4 MEQ/ML 10ML VIAL ONE (07:45)
[2022-04-19] MEDS ORDERED: ceFAZolin 1,000 MG VIAL ONE (07:45)
[2022-04-19] MEDS ORDERED: INSULIN REGULAR 100 UNIT/ML VIAL (IV) ONE (07:45)
[2022-04-19] MEDS ORDERED: WATER FOR INJECTION, STERILE 10 ML VIAL IV ONE (07:45)
[2022-04-19] MEDS ORDERED: VECURONIUM 10 MG VIAL IV ONE (07:45)
[2022-04-19] MEDS ORDERED: MIDAZOLAM HCL 10 MG/10 ML VIAL ONE (07:45)
[2022-04-19] MEDS ORDERED: NITROGLYCERIN-D5W PMX 50 MG/250 ML BOTTLE IV ONE (07:45)
[2022-04-19] MEDS ORDERED: SODIUM CHLORIDE 0.9% 100 ML BAG ONE (07:45)
[2022-04-19] MEDS ORDERED: ePHEDrine 50 MG/ML 1 ML VIAL ONE (07:45)
[2022-04-19] MEDS ORDERED: fentaNYL (PF) 50 MCG/ML 50 ML VIAL ONE (07:45)
[2022-04-19] MEDS ORDERED: PHENYLEPHRINE-0.9% NACL SYG 1,000 MCG/10 ML SYRINGE ONE (07:45)
[2022-04-19] MEDS ORDERED: GLYCOPYRROLATE 0.2 MG/ML 2 ML VIAL ONE (07:45)
[2022-04-19] MEDS ORDERED: TRANEXAMIC ACID IN NACL,ISO-OS 1,000 MG/100 ML BAG ONE (07:45)
[2022-04-19] MEDS ORDERED: PROPOFOL 10 MG/ML 20 ML VIAL IV ONE (07:45)
[2022-04-19] MEDS ORDERED: ELECTROLYTE-R (PH 7.4) 1,000 ML IV.SOLN IV ONE (07:45)
[2022-04-19] MEDS ORDERED: SODIUM CHLORIDE 0.9% IRRIG 1,000 ML BTL IRRIGATION ONE (07:45)
[2022-04-19 08:38] LABS: ABG Base Excess -2.8 mmol/L; ABG Glucose Whole Blood 139 mg/dL (75-99); ABG HCO3 23 mmol/L (21-25); ABG Ionized Calcium 5.1 mg/dL (4.5-5.3); ABG Lactic Acid Whole Blood 0.5 mmol/L (0.5-1.6); ABG PCO2 45 mmHg (35-45); ABG PH 7.32 (7.35-7.45); ABG PO2 170 mmHg (83-108); ABG Potassium Whole Blood 4.7 mmol/L (3.4-4.5); ABG Sodium Whole Blood 145 mmol/L (135-146); ABG TCO2 25 mmol/L (19-24)
[2022-04-19 10:15] LABS: ABG Base Excess -2.9 mmol/L; ABG Glucose Whole Blood 159 mg/dL (75-99); ABG HCO3 23 mmol/L (21-25); ABG Ionized Calcium 5.1 mg/dL (4.5-5.3); ABG Lactic Acid Whole Blood 0.5 mmol/L (0.5-1.6); ABG PCO2 42 mmHg (35-45); ABG PH 7.34 (7.35-7.45); ABG PO2 243 mmHg (83-108); ABG Potassium Whole Blood 4.7 mmol/L (3.4-4.5); ABG Sodium Whole Blood 144 mmol/L (135-146); ABG TCO2 24 mmol/L (19-24)
[2022-04-19 10:48] LABS: ABG Base Excess -6.1 mmol/L; ABG Glucose Whole Blood 159 mg/dL (75-99); ABG HCO3 22 mmol/L (21-25); ABG Ionized Calcium 4.6 mg/dL (4.5-5.3); ABG PCO2 58 mmHg (35-45); ABG PO2 273 mmHg (83-108); ABG Potassium Whole Blood 4.6 mmol/L (3.4-4.5); ABG Sodium Whole Blood 141 mmol/L (135-146); ABG TCO2 24 mmol/L (19-24)
[2022-04-19 10:57] LABS: ABG Base Excess -4.7 mmol/L; ABG Glucose Whole Blood 165 mg/dL (75-99); ABG HCO3 21 mmol/L (21-25); ABG Ionized Calcium 4.5 mg/dL (4.5-5.3); ABG Lactic Acid Whole Blood 0.9 mmol/L (0.5-1.6); ABG PCO2 40 mmHg (35-45); ABG PH 7.33 (7.35-7.45); ABG PO2 395 mmHg (83-108); ABG Potassium Whole Blood 4.9 mmol/L (3.4-4.5); ABG Sodium Whole Blood 141 mmol/L (135-146); ABG TCO2 22 mmol/L (19-24)
[2022-04-19 11:33] LABS: ABG Base Excess -2.3 mmol/L; ABG Glucose Whole Blood 131 mg/dL (75-99); ABG HCO3 23 mmol/L (21-25); ABG Ionized Calcium 4.8 mg/dL (4.5-5.3); ABG Lactic Acid Whole Blood 0.8 mmol/L (0.5-1.6); ABG PCO2 40 mmHg (35-45); ABG PH 7.37 (7.35-7.45); ABG PO2 258 mmHg (83-108); ABG Potassium Whole Blood 4.7 mmol/L (3.4-4.5); ABG Sodium Whole Blood 143 mmol/L (135-146); ABG TCO2 24 mmol/L (19-24)
[2022-04-19 12:07] LABS: ABG Base Excess -2.5 mmol/L; ABG Glucose Whole Blood 125 mg/dL (75-99); ABG HCO3 23 mmol/L (21-25); ABG Ionized Calcium 4.9 mg/dL (4.5-5.3); ABG Lactic Acid Whole Blood 0.9 mmol/L (0.5-1.6); ABG PCO2 45 mmHg (35-45); ABG PH 7.33 (7.35-7.45); ABG PO2 346 mmHg (83-108); ABG Potassium Whole Blood 4.8 mmol/L (3.4-4.5); ABG Sodium Whole Blood 143 mmol/L (135-146); ABG TCO2 25 mmol/L (19-24)
[2022-04-19 12:43] LABS: ABG Base Excess -3.3 mmol/L; ABG Glucose Whole Blood 111 mg/dL (75-99); ABG HCO3 22 mmol/L (21-25); ABG Ionized Calcium 4.7 mg/dL (4.5-5.3); ABG Lactic Acid Whole Blood 1.1 mmol/L (0.5-1.6); ABG PCO2 42 mmHg (35-45); ABG PH 7.33 (7.35-7.45); ABG PO2 356 mmHg (83-108); ABG Potassium Whole Blood 5.4 mmol/L (3.4-4.5); ABG Sodium Whole Blood 141 mmol/L (135-146); ABG TCO2 24 mmol/L (19-24)
[2022-04-19 13:08] LABS: ABG Base Excess -2.4 mmol/L; ABG Glucose Whole Blood 115 mg/dL (75-99); ABG HCO3 23 mmol/L (21-25); ABG Ionized Calcium 4.6 mg/dL (4.5-5.3); ABG Lactic Acid Whole Blood 1.8 mmol/L (0.5-1.6); ABG PCO2 39 mmHg (35-45); ABG PH 7.37 (7.35-7.45); ABG PO2 309 mmHg (83-108); ABG Potassium Whole Blood 5.5 mmol/L (3.4-4.5); ABG Sodium Whole Blood 143 mmol/L (135-146); ABG TCO2 24 mmol/L (19-24)
[2022-04-19 14:04] LABS: ABG Hematocrit 24 % (34.0-46.0)
[2022-04-19 14:05] LABS: ABG Hematocrit 23 % (34.0-46.0)
[2022-04-19 14:06] LABS: ABG Hematocrit 23 % (34.0-46.0); ABG PH 7.18 (7.35-7.45)
[2022-04-19 14:07] LABS: ABG Hematocrit 24 % (34.0-46.0)
[2022-04-19 14:08] LABS: ABG Hematocrit 23 % (34.0-46.0)
[2022-04-19 14:09] LABS: ABG Hematocrit 22 % (34.0-46.0)
[2022-04-19 14:09] LABS: ABG Hematocrit 23 % (34.0-46.0)
[2022-04-19 14:10] LABS: ABG Base Excess -3.8 mmol/L; ABG Glucose Whole Blood 123 mg/dL (75-99); ABG HCO3 23 mmol/L (21-25); ABG Ionized Calcium 4.8 mg/dL (4.5-5.3); ABG Lactic Acid Whole Blood 1.7 mmol/L (0.5-1.6); ABG Oxygen Saturation 98.7 % (94-97); ABG PCO2 50 mmHg (35-45); ABG PH 7.27 (7.35-7.45); ABG PO2 117 mmHg (83-108); ABG Potassium Whole Blood 4.8 mmol/L (3.4-4.5); ABG Sodium Whole Blood 145 mmol/L (135-146); ABG TCO2 25 mmol/L (19-24)
[2022-04-19 14:11] LABS: ABG Hematocrit 24 % (34.0-46.0)
[2022-04-19 14:15] LABS: ABG Hematocrit 22 % (34.0-46.0)
--- NOTE | 2022-04-19 14:22 | P.ANPRN ---
Procedure Note - Anesthesia - Invasive Line Right Central Line Time Out Performed: Yes ([id number]) Date of Procedure: 04/19/22 Time of Procedure: 07:32 Location of Patient: PreOp Preparation: Sterile Prep, Sterile Dressing Arterial Line Location: Radial Ultrasound Used: Yes Purpose - Visualization and Identification of Vasculature: Yes Needle Guage: 18g touhy Image Stored and Saved: Yes Narrative: Central line placement per sterile protocol utilized. +local +cvp +jwire +uneventful dilation and introduction right IJ CORDIS.
--- NOTE | 2022-04-19 14:24 | P.ANPRN ---
Procedure Note - Anesthesia - Invasive Line Right [place] Time Out Performed: Yes ([id number]) Date of Procedure: 04/19/22 Time of Procedure: 07:41 Preparation: Sterile Prep Arterial Line Location: Radial Ultrasound Used: No Purpose - Visualization and Identification of Vasculature: No Image Stored and Saved: No Narrative: Central line placement per sterile protocol utilized. swan floated in sheath in one attempt. wedge at 60cm. b/d. w/d 5 cm . locked at 55cm.
[2022-04-19] MEDS ORDERED: MUPIROCIN 2% OINT 22 GM TUBE NASAL ONE (14:45)
[2022-04-19] MEDS ORDERED: ALBUMIN HUMAN 5% 250 ML IVPB ONE ×2 (14:53→16:22)
[2022-04-19] MEDS ORDERED: DEXTROSE 50% SYRINGE 50 ML IVP PRN ×2 (14:56)
[2022-04-19] MEDS ORDERED: Magnesium Replacement Protocol 1 EACH MISC MISCELLANE PRN (14:56)
[2022-04-19] MEDS ORDERED: DEXTROSE 5% IN WATER 100 ML with AMIODARONE 150 MG IV PRN (14:56)
[2022-04-19] MEDS ORDERED: hydrALAZINE HCL 20 MG/ML 1 ML VIAL IVP PRN (14:56)
[2022-04-19] MEDS ORDERED: BENZOCAINE/MENTHOL LOZENG 1 EACH LOZENGE MUCOUS MEM PRN (14:56)
[2022-04-19] MEDS ORDERED: CLEVIDIPINE BUTYRATE 25 MG in EMPTY BAG 1 BAG IV SCH (14:56)
[2022-04-19] MEDS ORDERED: AMIODARONE 360 MG in DEXTROSE 5% IN WATER 200 ML IV PRN ×2 (14:56)
[2022-04-19] MEDS ORDERED: METOCLOPRAMIDE 5 MG/ML 2 ML VIAL IVP PRN (14:56)
[2022-04-19] MEDS ORDERED: DEXMEDETOMIDINE/0.9% NACL(PMX) 400 MCG in EMPTY BAG 1 BAG IV SCH (14:56)
[2022-04-19] MEDS ORDERED: Potassium Replacement Protocol 1 EACH MISC MISCELLANE PRN (14:56)
[2022-04-19] MEDS ORDERED: AMIODARONE 450 MG in DEXTROSE 5% IN WATER 250 ML IV PRN ×2 (14:56)
[2022-04-19] MEDS ORDERED: CALCIUM GLUCONATE IN NACL 2 GM in SALINE 1 100ML.BAG IVPB PRN (14:56)
--- NOTE | 2022-04-19 15:14 | P.OP ---
Date of Procedure: 04/19/22 Preoperative Diagnosis: Regurgitation, coronary artery disease, paroxysmal atrial fibrillation, patent foramen ovale, tricuspid regurgitation, chronic valvular systolic congestive heart failure Postoperative Diagnosis: Same Procedure(s) Performed: Mitral valve repair with 28 mm physio-2 ring, CABG 3 with saphenous vein grafts to first diagonal, obtuse marginal, posterior descending coronary arteries, closure of PFO, endovascular vein harvest, modified Castanon maze procedure with full left-sided lesion set and ligation of the left atrial appendage, SCOTT by anesthesia. Implants: 28 mm physio-2 ring Anesthesia: GETA Surgeon: Hai Raines It Account Manager #1: Herve Retana It Account Manager #2: Torin Willingham Estimated Blood Loss (ml): 800 IV fluids (ml): 2,000 Urine output (ml): 500 Pathology: none sent Condition: stable Disposition: ICU Indications for Procedure: 72-year-old male presents with persistent worsening shortness of breath. Echocardiography demonstrated severe mitral regurgitation with posteriorly directed jet tracking all the way along the posterior wall to the back wall of the atrium, mild to moderate tricuspid regurgitation, decreased left ventricular function with ejection fraction of 40-45%. Patent foramen ovale was noted. Cardiac catheterization showed severe 2 vessel coronary artery disease with 90% stenosis of the major marginal branch and circumflex and complete occlusion of the right coronary artery with faint filling of the posterior descending coronary artery. There was mild disease in the LAD but tight stenosis in the 2 diagonal branches. Patient has history of atrial fibrillation with previous cardioversion in the spring time of this year. He is currently in sinus rhythm. Patient was referred by Dr. Man for mitral valve repair and CABG. Patient was seen in the office. Plan was for mitral valve repair, possible tricuspid valve repair, modified Castanon maze procedure, closure of patent foramen ovale, coronary bypass grafting of obtuse marginal, posterior descending, one or 2 diagonal branches. Elective surgery was scheduled. Operative Findings: SCOTT demonstrated global hypokinesia with ejection fraction around 40%. There was severe mitral regurgitation with a posteriorly directed jet as noted previously. There was trivial tricuspid regurgitation noted under general anesthetic loading conditions. Posterior descending coronary was a heavily diseased vessel with a 1 mm lumen. Obtuse marginal was a small vessel with a 1 mm lumen. First diagonal was proximally calcified and a 1.5 mm distal lumen. The second diagonal was small. Mitral valve demonstrated posterior annular dilatation with mild prolapse of the anterior leaflet. On putting the posterior ring sutures in, the regurgitation appeared to markedly improve and there was no longer evidence of prolapse. This suggested that a ring would be adequate for repair. Exposure of the mitral valve itself was quite challenging. Following initial test dose of protamine which was uneventful patient developed hypotension and pulmonary artery hypertension with dilatation of the right ventricle during administration of the main protamine dose. Protamine reaction was diagnosed and the patient was treated appropriately and hemodynamics improved. Description of Procedure: Patient was brought to the operating room placed supine on the operating table. General anesthesia was induced. Anterior torso and bilateral lower extremities were sterilely prepped and draped. The probe was placed. Bilateral thigh saphenous veins were harvested using endovascular vein harvest technique. While the veins were being prepared on the back table, midline sternotomy was performed. Left pleural space was opened widely. The pericardium was opened in the midline and the heart exposed with pericardial sutures. Patient was systemically heparinized. Coronary targets were identified. Patient was cannulated for cardiopulmonary bypass with a 7 mm soft flow cannula in the distal ascending aorta, a 36 straight venous cannula through the right atrial appendage into the inferior vena cava, a 30 right angle cannula in the superior vena cava. Antegrade and retrograde cardioplegia lines were placed in standard fashion. Caval tapes were passed. Patient was placed on cardioplegia bypass. Dissection was first carried out around the right-sided pulmonary veins and ablation of the left atrium at the insertion of the right-sided pulmonary veins was performed with the AtriCure RF clamp. 3 parallel lines were performed. Next we exposed the left-sided pulmonary veins. The ligament of Adrian was divided with electrocautery. The left-sided pulmonary veins were encircled. Ablation of the left atrium at the insertion of the left-sided pulmonary veins was performed with 3 parallel lines with the AtriCure clamp. Heart was lowered into anatomic position. The aorta was crossclamped and the heart was arrested with cold crystalloid cardioplegia followed by retrograde cardioplegia. The PDA was exposed first. It was opened and saphenous vein anastomosed in end-to-side fashion with running 7-0 Prolene suture. On completion anastomosis it was probed proximally and distally and noted to be patent. The suture was tied and the graft tested and noted to be hemostatic. The vein was cut to appropriately to reach the ascending aorta. Lateral wall the heart was exposed the major marginal branch was opened fairly proximally. It was a soft vessel with minimal wall disease but very small. Second piece of saphenous vein was anastomosed in an inside fashion with running 7-0 Prolene suture. On completion anastomosis it was probed proximally and distally with a 1 mm probe noted to be patent. Suture was tied with good result and hemostasis and the graft was flushed with cold blood cardioplegia and noted to flow well. First diagonal was exposed. It was opened and easily accepted a 1.5 mm probe proximally. It was calcified and very tight proximally. Third piece of saphenous vein was anastomosed in end-to-side fashion with running 7-0 Prolene suture. Completion anastomosis was probed and noted to be patent. Suture was tied and blood cardioplegia was given with good hemostasis. We now exposed the inner atrial groove and dissected within it. The left atrium was opened through the inner atrial groove. Alicia retractor was used for exposure of the mitral valve. The left-sided maze was completed with the AtriCure clamp performing 3 parallel roof and floor lesions. AtriCure cryoprobe was used to perform the mitral valve lesion and the coronary sinus lesion. Left atrial appendage was oversewn with a 2 layer running closure of 3-0 Prolene suture. The mitral valve was now explored and tested. Posterior annular sutures were placed and the valve was again tested. It was felt that a ring would be adequate for closure and the remaining sutures were placed circumferentially around the annulus of the mitral valve. The anterior leaflet was sized and a 28 mm physio-2 ring was chosen and brought up on the field. Valve sutures were passed through the physio-2 ring and it was seated. Sutures were secured with coronary. The valve was tested and noted to be competent. We irrigated the left atrium at this point. The PFO was closed with running 4-0 Prolene in 2 layers. The left atrium was then closed with a single layer running 3-0 Prolene suture. It was de-aired prior to tying the suture. 2 proximal anastomoses were now instructed in the ascending aorta with a 4 mm punch holes 1 for the PDA and one for the obtuse marginal graft. The patient was taken placed in Trendelenburg and the cross-clamp was removed. Atrial and ventricular pacing wires were placed and patient was initially in complete heart block and was paced. Bulldog clamps were placed proximally and distally on the obtuse marginal graft and it was opened longitudinally. The diagonal graft was jumped off this with running 7-0 Prolene side to end anastomosis. On completion of this the grafts were all de- aired with needle holes and the inflow open. Distal anastomoses were checked and noted to be hemostatic. The left ventricle was de-aired with a 16-gauge Angiocath in the apex of the left ventricle which was then closed with a 6-0 Prolene suture. The aortic vent was removed and reinforced with a 40 pledgeted Prolene suture. The retrograde cardioplegia line had already been removed. The inferior vena caval cannula was pulled back into the right atrium and the superior vena caval cannula was clamped and removed. Pursestring was tied with good result and hemostasis. Patient was now weaned from cardiopulmonary bypass and without difficulty. Protamine was started and the patient was decannulated in standard fashion. Aortic cannulation site was reinforced with a 40 pledgeted Prolene suture. The right atrial cannulation site was reinforced with a heavy silk tie. About [address] way through the protamine dose patient became hypotensive. PA pressures danielle precipitously. Patient was started on epinephrine. Echocardiography demonstrated right ventricular dilatation and poor right ventricular function. Over a period of time this resolved.'s was felt to be a protamine reaction. Once the pressure had stabilized and normalized the epinephrine dose was cut back to a low dose. We then proceeded with closure of the sternum. The left pleural space was drained with a 32-Andorran chest tube. Mediastinum was drained with 236-Andorran chest tubes. The chest was irrigated with antibiotic solution. After assuring good hemostasis sternum was closed with 8 sternal wires. The fascia was closed with 0 Ethibond. The subcutaneous and subcuticular layers were closed layers of Vicryl suture. Dry sterile dressings were applied the patient was transferred to the ICU in stable hemodynamic condition. He did receive 2 units of blood prior to going on pump as pump prime due to a starting hemoglobin of 8. Her final hemoglobin was over 7. He also received 1 unit of platelets and 2 units of FFP.
[2022-04-19 15:22] LABS: Glucose,Whole Blood 168 mg/dL (70-110)
[2022-04-19 15:50] LABS: ABG Base Excess -2.2 mmol/L; ABG HCO3 25 mmol/L (21-25); ABG PCO2 53 mmHg (35-45); ABG PH 7.27 (7.35-7.45); ABG PO2 327 mmHg (83-108); ABG TCO2 26 mmol/L (19-24)
--- NOTE | 2022-04-19 15:53 | XR ---
EXAMINATION TYPE: XR chest 1V portable DATE OF EXAM: 04/19/2022 COMPARISON: 04/12/2022 HISTORY: Postop TECHNIQUE: Single frontal view of the chest is obtained. FINDINGS: ET tube 4 cm above mustapha. [place]-Varghese catheter overlying the proximal pulmonary outflow tra ct. Left-sided chest tube and mediastinal drain noted. Suggestion of an epicardial lead. Postsurgical changes with no pneumothorax. Prominent interstitium with areas of subsegmental consolidation and sm all effusion. Hyperinflation compatible COPD. IMPRESSION: 1. COPD with mild venous congestion and small bilateral pleural effusions. 2. Postoperative changes with no sizable pneumothorax.
[2022-04-19 15:55] LABS: Allen Test Performed? no
[2022-04-19] MEDS: LACTATED RINGERS 1,000 ML IV SCH (16:09)
[2022-04-19 16:22] LABS: Ionized Calcium 5.3 mg/dL (4.5-5.3)
[2022-04-19 16:25] LABS: Anisocytosis Slight; Basophils # (A) 0.1 k/uL (0-0.2); Basophils % (A) 0 %; Eosinophils # (A) 0.1 k/uL (0-0.7); Eosinophils % (A) 1 %; HCT 28.3 % (39.0-53.0); HGB 8.8 gm/dL (13.0-17.5); Hypochromasia Marked; Lymphocytes # (A) 0.6 k/uL (1.0-4.8); Lymphocytes % (A) 4 %; MCH 30.9 pg (25.0-35.0); MCV 99.8 fL (80.0-100.0); Macrocytosis Slight; Mean Platelet Volume 9.5; Monocytes # (A) 1.1 k/uL (0-1.0); Monocytes % (A) 8 %; Neutrophils % (A) 85 %; Platelet Count 200 k/uL (150-450); Poikilocytosis Moderate; RBC 2.83 m/uL (4.30-5.90); RDW 16.6 % (11.5-15.5)
[2022-04-19 16:29] LABS: INR 1.1 (<1.2); Partial Thromboplastin Time 30.9 sec (22.0-30.0)
[2022-04-19 16:30] LABS: Albumin 3.1 g/dL (3.5-5.0); Calcium 8.3 mg/dL (8.4-10.2); Magnesium 4.9 mg/dL (1.6-2.3); Total Bilirubin 0.9 mg/dL (0.2-1.3); Total Protein 4.8 g/dL (6.3-8.2)
[2022-04-19] MEDS: IPRATROPIUM-ALBUTEROL 3 ML NEB INHALATION SCH ×2 (16:45→19:09)
[2022-04-19] MEDS: HEPARIN SODIUM,PORCINE/PF 5,000 UNIT/0.5 ML SYRINGE SQ SCH ×2 (16:58→23:01)
[2022-04-19] MEDS ORDERED: NITROGLYCERIN-D5W PMX 50 MG in DEXTROSE/WATER 1 250ML.BAG IV SCH (17:00)
[2022-04-19] MEDS ORDERED: EPINEPHrine 4 MG in DEXTROSE 5% IN WATER 250 ML IV SCH ×2 (17:00)
[2022-04-19] MEDS: ACETAMINOPHEN IV (For NPO) 1,000 MG in EMPTY BAG 1 BAG IVPB SCH ×2 (17:00→23:01)
[2022-04-19 17:12] LABS: Glucose,Whole Blood 136 mg/dL (70-110)
[2022-04-19 18:01] LABS: Glucose,Whole Blood 135 mg/dL (70-110)
[2022-04-19] MEDS: INSULIN REGULAR 100 UNIT in SODIUM CHLORIDE 0.9% 100 ML IV SCH (18:09)
[2022-04-19 18:13] LABS: Anisocytosis Slight; Basophils # (A) 0.1 k/uL (0-0.2); Basophils % (A) 1 %; Eosinophils % (A) 0 %; HCT 25.4 % (39.0-53.0); HGB 8.4 gm/dL (13.0-17.5); Hypochromasia Marked; Lymphocytes # (A) 0.4 k/uL (1.0-4.8); Lymphocytes % (A) 3 %; MCH 32.5 pg (25.0-35.0); MCHC 33.2 g/dL (31.0-37.0); MCV 98.1 fL (80.0-100.0); Macrocytosis Slight; Mean Platelet Volume 10.1; Monocytes % (A) 10 %; Neutrophils # (A) 9.2 k/uL (1.3-7.7); Neutrophils % (A) 85 %; Platelet Count 154 k/uL (150-450); Poikilocytosis Moderate; RBC 2.59 m/uL (4.30-5.90); RDW 16.1 % (11.5-15.5); WBC 10.9 k/uL (3.8-10.6)
[2022-04-19 19:00] LABS: Glucose,Whole Blood 123 mg/dL (70-110)
[2022-04-19] MEDS: ALBUMIN HUMAN 5% 250 ML in EMPTY BAG 1 BAG IVPB PRN (19:01)
[2022-04-19] MEDS: SYMBICORT 80-4.5 MCG INHALER INHALATION SCH (19:10)
[2022-04-19 20:01] LABS: Glucose,Whole Blood 128 mg/dL (70-110)
[2022-04-19 20:07] LABS: ABG Base Excess -1.4 mmol/L; ABG HCO3 24 mmol/L (21-25); ABG Oxygen Saturation 99.9 % (94-97); ABG PCO2 43 mmHg (35-45); ABG PH 7.36 (7.35-7.45); ABG PO2 162 mmHg (83-108); ABG TCO2 25 mmol/L (19-24); Allen Test Performed? Yes
[2022-04-19 20:31] LABS: Anisocytosis Slight; Basophils % (A) 0 %; Eosinophils % (A) 0 %; HCT 24.9 % (39.0-53.0); HGB 7.9 gm/dL (13.0-17.5); Hypochromasia Marked; Lymphocytes # (A) 0.3 k/uL (1.0-4.8); Lymphocytes % (A) 4 %; MCH 31.6 pg (25.0-35.0); MCHC 31.9 g/dL (31.0-37.0); MCV 99.1 fL (80.0-100.0); Macrocytosis Slight; Mean Platelet Volume 9.3; Monocytes # (A) 0.9 k/uL (0-1.0); Monocytes % (A) 10 %; Neutrophils # (A) 7.2 k/uL (1.3-7.7); Neutrophils % (A) 83 %; Platelet Count 138 k/uL (150-450); Poikilocytosis Moderate; RBC 2.51 m/uL (4.30-5.90); RDW 16.2 % (11.5-15.5); WBC 8.7 k/uL (3.8-10.6)
[2022-04-19 21:08] LABS: Glucose,Whole Blood 125 mg/dL (70-110)
[2022-04-19] MEDS: ATORVASTATIN 80 MG TAB PO SCH (21:40)
[2022-04-19] MEDS: FERROUS SULFATE 325 MG TAB PO SCH (21:40)
[2022-04-19] MEDS: FENOFIBRATE 160 MG TAB PO SCH (21:42)
[2022-04-19 21:59] LABS: Glucose,Whole Blood 124 mg/dL (70-110)
[2022-04-19] MEDS: MUPIROCIN 2% OINT 22 GM TUBE NASAL SCH (22:27)
[2022-04-19 22:59] LABS: Glucose,Whole Blood 127 mg/dL (70-110)
[2022-04-19 23:59] LABS: Glucose,Whole Blood 132 mg/dL (70-110)
[2022-04-20 00:58] LABS: Glucose,Whole Blood 118 mg/dL (70-110)
[2022-04-20 01:58] LABS: Glucose,Whole Blood 120 mg/dL (70-110)
[2022-04-20 02:54] LABS: Glucose,Whole Blood 119 mg/dL (70-110)
[2022-04-20 03:15] LABS: Anisocytosis Slight; Basophils % (A) 0 %; Eosinophils % (A) 0 %; HCT 25.4 % (39.0-53.0); HGB 7.7 gm/dL (13.0-17.5); Hypochromasia Marked; Lymphocytes # (A) 0.5 k/uL (1.0-4.8); Lymphocytes % (A) 5 %; MCH 30.2 pg (25.0-35.0); MCHC 30.1 g/dL (31.0-37.0); MCV 100.5 fL (80.0-100.0); Macrocytosis Slight; Mean Platelet Volume 10.4; Monocytes % (A) 11 %; Neutrophils # (A) 7.1 k/uL (1.3-7.7); Neutrophils % (A) 80 %; Platelet Count 139 k/uL (150-450); Poikilocytosis Moderate; RBC 2.53 m/uL (4.30-5.90); RDW 16.5 % (11.5-15.5); WBC 8.9 k/uL (3.8-10.6)
[2022-04-20 03:27] LABS: Albumin 3.5 g/dL (3.5-5.0); Calcium 8.1 mg/dL (8.4-10.2); Magnesium 4.1 mg/dL (1.6-2.3); Potassium 5.8 mmol/L (3.5-5.1); Total Bilirubin 0.4 mg/dL (0.2-1.3)
[2022-04-20] MEDS ORDERED: FUROSEMIDE 10 MG/ML 2 ML VIAL IV STA (03:37)
[2022-04-20 03:52] LABS: Glucose,Whole Blood 115 mg/dL (70-110)
[2022-04-20 04:50] LABS: Glucose,Whole Blood 117 mg/dL (70-110)
[2022-04-20] MEDS: IPRATROPIUM-ALBUTEROL 3 ML NEB INHALATION PRN ×2 (05:44→14:38)
[2022-04-20 05:55] LABS: Glucose,Whole Blood 119 mg/dL (70-110)
[2022-04-20 06:31] LABS: Magnesium 3.6 mg/dL (1.6-2.3); Potassium 5.5 mmol/L (3.5-5.1)
[2022-04-20 06:53] LABS: Glucose,Whole Blood 115 mg/dL (70-110)
--- NOTE | 2022-04-20 07:31 | XR ---
EXAMINATION TYPE: XR chest 1V portable DATE OF EXAM: 04/20/2022 5:59 AM COMPARISON: Chest radiograph from one day prior. TECHNIQUE: XR chest 1V portable Portable AP radiograph of the chest. CLINICAL INDICATION:Male, 72 years old with history of Post Operative Cardiac Surgery; FINDINGS: Lungs/Pleura: Scattered opacities are unchanged from prior. There is no evidence of pleural effusion, focal consolidation, or pneumothorax. Pulmonary vascularity: Unremarkable. Heart/mediastinum: Cardiomediastinal silhouette is enlarged and stable. Musculoskeletal: No acute osseous pathology. Midline sternotomy wires are noted. Lines/Tubes: Left thoracotomy tube is present without evidence of pneumothorax. There is a [place]-Varghese catheter with tip projecting over the spine. Drainage tubes with tips projecting over the mediastinum. IMPRESSION: 1. Postsurgical changes. The lung parenchyma is grossly unchanged from prior. Scattered opacities co uld relate to atelectasis versus pulmonary vascular congestion. 2. Left thoracotomy without evidence pneumothorax.
[2022-04-20] MEDS: HYDROcodone/APAP 5-325MG 1 EACH TAB PO PRN ×5 (07:57→23:03)
[2022-04-20] MEDS: HEPARIN SODIUM,PORCINE/PF 5,000 UNIT/0.5 ML SYRINGE SQ SCH ×3 (08:03→23:03)
[2022-04-20 08:08] LABS: Glucose,Whole Blood 303 mg/dL (70-110)
[2022-04-20] MEDS: METOPROLOL TARTRATE 12.5 MG TAB PO SCH ×2 (08:14→21:15)
[2022-04-20] MEDS: ASPIRIN 325 MG TAB PO SCH (08:14)
[2022-04-20] MEDS: FERROUS SULFATE 325 MG TAB PO SCH ×2 (08:14→21:16)
[2022-04-20] MEDS: CLOPIDOGREL 75 MG TAB PO SCH (08:14)
[2022-04-20] MEDS: IPRATROPIUM-ALBUTEROL 3 ML NEB INHALATION SCH ×4 (08:25→21:24)
[2022-04-20] MEDS: SYMBICORT 80-4.5 MCG INHALER INHALATION SCH ×2 (08:25→21:24)
[2022-04-20 09:00] LABS: Glucose,Whole Blood 233 mg/dL (70-110)
[2022-04-20] MEDS ORDERED: AMIODARONE 200 MG TAB PO SCH (09:00)
[2022-04-20] MEDS ORDERED: MAGNESIUM HYDROXIDE 2,400 MG/10 ML CUP PO PRN (09:00)
[2022-04-20] MEDS ORDERED: PANTOPRAZOLE 40 MG/10 ML VIAL IVP SCH (09:00)
[2022-04-20] MEDS: MUPIROCIN 2% OINT 22 GM TUBE NASAL SCH ×2 (09:16→21:18)
[2022-04-20 09:56] LABS: Glucose,Whole Blood 170 mg/dL (70-110)
[2022-04-20] MEDS: ALBUMIN HUMAN 5% 250 ML in EMPTY BAG 1 BAG IVPB PRN ×2 (10:12→13:47)
[2022-04-20 11:04] LABS: Glucose,Whole Blood 125 mg/dL (70-110)
--- NOTE | 2022-04-20 11:25 | P.CNPUL ---
History of Present Illness Consult date: 04/20/22 Requesting physician: Hai Raines Reason for consult: other (Mechanical ventilator/critical care management) Chief complaint: Coronary artery disease, valvular heart disease History of present illness: This is a pleasant 72-year-old male patient with a known history of osteoarthritis was multiple orthopedic surgeries, diabetes mellitus, hyperlipidemia, chronic tobacco dependence, paroxysmal atrial fibrillation. He was recently found to have coronary artery disease with a total occlusion of the RCA with collateral circulation, obtuse marginal with 99% stenosis and mild LAD disease. His ejection fraction is 45%. He was also found to have severe mitral regurgitation, moderate central tricuspid regurgitation as well as evidence of a PFO with simid-tk-aodk shunt. He was recommended coronary artery bypass grafting and valvular repair. He was brought in to the hospital yesterday for an elective procedure. He did undergo mitral valve repair, coronary bypass grafting 3 with an SVG to the first diagonal, obtuse marginal and posterior descending coronary arteries, closure of a PFO, modified Castanon-Maze procedure and litigation of the left atrial appendage. He was successfully extubated within the 6 hour protocol. He is seen today in consultation in the intensive care unit. He is ready sitting up in a chair. Awake and alert in no acute distress. He is maintaining O2 saturation in the 90s on 3 L/m per nasal cannula. He has insulin drip at 5 units per hour. Lactated Ringer's at 20 miles per hour. He initially was on epinephrine drip that has been discontinu ed. He did receive 2 units of packed red blood cells, 2 units of fresh frozen plasma and 1 unit of platelets. White count 8.9. Hemoglobin 7.7. Platelets 139,000. Sodium 142. Potassium 5.5. Chloride 111. Bicarb 23. BUN 32. Creatinine 1.73. Glucose 125. AST 1:30. ALT 37. Magnesium 3.6. Mean arterial blood pressure in the 70s. PA pressures 50/18. CVP 12. Cardiac output 6.5. Cardiac index 3.1. He is on bronchodilators. Working well with the incentive spirometer. Chest x-ray reveals scattered opacities bilaterally. No evidence of pleural effusion, focal consolidation or pneumothorax. Mediastinal 2, left pleural chest tube in place. He is continued on oral amiodarone. Heparin for DVT prophylaxis. Review of Systems REVIEW OF SYSTEMS: CONSTITUTIONAL: Denies any recent significant weight loss or weight gain. EYES: Denies change in vision. EARS, NOSE, MOUTH, THROAT: Denies headaches, denies sore throat. CARDIOVASCULAR: Surgical site chest pain, no palpitations or syncopal episodes. RESPIRATORY: Denies shortness of breath, cough, congestion or hemoptysis. GASTROINTESTINAL: Denies change in appetite, denies abdominal pain GENITOURINARY: Denies hematuria, denies infections. MUSKULOSKELETAL: Denies pain, denies swelling. INTEGUMENTARY: Denies rash, denies eczema. NEUROLOGICAL: Denies recent memory loss, no recent seizure activity. PSYCHIATRIC: Denies anxiety, denies depression. HEMATOLOGIC/LYMPHATIC: Denies anemia, denies enlarged lymph nodes. Past Medical History Past Medical History: Atrial Fibrillation, Blood Disorder, COPD, Diabetes Mellitus, GI Bleed, Hearing Disorder / Deafness, Hyperlipidemia, Hypertension, Myocardial Infarction ([place]), Pneumonia Additional Past Medical History / Comment(s): Anemia, had GI Bleed 11/22, had 4 units of blood. Bilateral lower extremity edema. Hx [place] X2. Insomnia. Hx Pneumonia. Chronic back pain. Last Myocardial Infarction Date:: 11/2021 History of Any Multi-Drug Resistant Organisms: None Reported Past Surgical History: Back Surgery, Heart Catheterization With Stent, Joint Replacement, Orthopedic Surgery Additional Past Surgical History / Comment(s): BILATERAL KNEE REPLACEMENTS, BILATERAL SHOULDER SURGERY, ONE CARDIAC STENT, back surgery X2 (lumbar decompression and fusion), BACK INJECTIONS, COLONOSCOPY, BILATERAL CATARACTS REMOVED WITH LENS IMPLANTS, Cardioversion. Past Anesthesia/Blood Transfusion Reactions: No Reported Reaction Date of Last Stent Placement:: 2000 Smoking Status: Current some day smoker - Past Family History Father Family Medical History: No Reported History Mother Family Medical History: No Reported History Medications and Allergies Home Medications Medication Instructions Recorded Confirmed Type Atorvastatin [Lipitor] 80 mg PO HS 04/26/14 04/12/22 History Ramipril 10 mg PO QAM 04/26/14 04/12/22 History metFORMIN HCL [Glucophage] 500 mg PO BID 04/26/14 04/12/22 History Liraglutide [Victoza 3-Casey] 1.8 mg SQ DAILY 02/19/17 04/12/22 History Metoprolol Tartrate 25 mg PO QAM 02/19/17 04/12/22 History Stool Softener(Unknown Name/Do 2 tab PO DAILY 02/19/17 04/12/22 History Vit C/E/Zn/Coppr/Lutein/Zeaxan 2 cap PO DAILY 02/19/17 04/12/22 History [Preservision Areds 2 Softgel] Acetaminophen [Tylenol Extra 500 - 1,000 mg PO DIRECTED PRN 02/02/20 04/12/22 History Strength] Pioglitazone [Actos] 15 mg PO DAILY 02/02/20 04/19/22 History Apixaban [Eliquis] 5 mg PO BID 11/09/21 04/12/22 History Fluticasone/Umeclidin/Vilanter 1 inhalation INHALATION HS 11/09/21 04/12/22 History [Trelegy Ellipta 100-62.5-25] Fenofibrate 160 mg PO HS 12/22/21 04/12/22 History Ferrous Sulfate [Feosol] 325 mg PO BID 12/22/21 04/12/22 History Furosemide [Lasix] 40 mg PO BID 12/22/21 04/12/22 History Ipratropium-Albuterol Nebulize 3 ml INHALATION QID PRN 12/22/21 04/12/22 History [Duoneb 0.5 mg-3 mg/3 ml Soln] Pantoprazole Sodium [Protonix] 40 mg PO PC-LUNCH 12/22/21 04/12/22 History Repaglinide [Prandin] 0.5 mg PO AC-SUPPER 12/22/21 04/12/22 History Mupirocin [Mupirocin 2%] 1 applic NASAL BID #1 tub 04/14/22 04/19/22 Rx Allergies Allergy/AdvReac Type Severity Reaction Status Date / Time No Known Allergies Allergy Verified 04/12/22 09:23 Physical Exam Vitals: Vital Signs Temp Pulse Resp BP Pulse Ox FiO2 04/20/22 10:00 63 24 111/48 97 04/20/22 09:30 66 18 113/60 95 04/20/22 09:00 70 17 138/68 95 04/20/22 08:30 71 24 125/58 99 04/20/22 08:25 71 04/20/22 08:00 72 32 H 126/74 95 04/20/22 07:30 69 37 H 95 04/20/22 06:00 68 27 H 129/87 96 04/20/22 05:55 67 04/20/22 05:44 68 04/20/22 05:30 67 20 127/62 97 04/20/22 05:00 61 22 127/62 93 L 04/20/22 04:30 67 14 128/64 94 L 04/20/22 04:00 99.0 F 66 25 H 124/66 94 L 04/20/22 03:30 68 27 H 122/65 96 04/20/22 03:00 64 25 H 117/64 95 04/20/22 02:30 66 26 H 123/78 96 04/20/22 02:00 66 28 H 124/61 95 04/20/22 01:30 66 26 H 125/59 95 04/20/22 01:00 66 24 116/63 95 04/20/22 00:30 66 26 H 113/56 97 04/20/22 00:00 98.6 F 66 29 H 126/64 95 04/19/22 23:30 67 26 H 118/63 95 04/19/22 23:00 68 27 H 111/62 94 L 04/19/22 22:30 67 27 H 121/67 91 L 04/19/22 22:00 66 27 H 98 04/19/22 21:30 66 19 97 04/19/22 21:00 66 20 95 04/19/22 20:30 66 30 H 94 L 04/19/22 20:15 64 24 98 04/19/22 20:00 99.1 F 64 23 98 50 04/19/22 19:45 64 27 H 99 04/19/22 19:30 63 11 L 98 50 04/19/22 19:20 61 04/19/22 19:15 61 19 98 50 04/19/22 19:10 61 50 04/19/22 19:00 60 0 L 97 04/19/22 18:45 60 0 L 97 04/19/22 18:30 61 18 96 04/19/22 18:15 63 18 97 04/19/22 18:00 64 18 98 04/19/22 17:45 66 18 98 04/19/22 17:30 68 18 97 04/19/22 17:15 66 18 98 04/19/22 17:00 99.3 F 70 14 98 50 04/19/22 16:56 64 11/17/22 16:45 64 04/19/22 16:40 62 19 95 04/19/22 16:30 62 10 L 96 04/19/22 16:20 60 14 95 04/19/22 16:10 63 12 96 04/19/22 16:00 63 18 99 50 04/19/22 15:56 50 04/19/22 15:50 66 8 L 98 04/19/22 15:40 44 H 98 04/19/22 15:30 97.9 F 83 14 100 100 04/19/22 15:20 75 14 04/19/22 15:15 20 100 Intake and Output 04/19/22 04/20/22 04/20/22 22:59 06:59 14:59 Intake Total 2344.154 7239.449 584.751 Output Total 975 1239 315 Balance 925.628 4845.449 269.751 Intake: IV 372 721 167 ACETAMINOPHEN IV (For NPO 100 ) 1,000 mg In Empty Bag 1 bag @ 400 mls/hr IVPB Q6HR [facility] Rx#:[id number] Lactated Ringers 1,000 ml 150 400 60 @ 50 mls/hr IV .Q20H [facility] Rx#:[id number] cardiac ooutput 150 81 30 ceFAZolin 2 gm In Sodium 50 50 Chloride 0.9% 50 ml @ 100 mls/hr IVPB Q8HR [facility] Rx# :[id number] pressure bags 72 90 27 Intake, IV Titration 969.075 2.449 17.751 Amount Albumin Human 5% 250 ml @ 750 0 mls/hr IVPB .STK-[facility] Rx#:[id number] Insulin Regular 100 unit 3.392 2.449 17.751 In Sodium Chloride 0.9% 100 ml @ Per Protocol IV .Q0M [facility] Rx#:[id number] Lactated Ringers 1,000 ml 150 @ 50 mls/hr IV .Q20H [facility] Rx#:[id number] ceFAZolin 2 gm In Sodium 50 Chloride 0.9% 50 ml @ 100 mls/hr IVPB Q8HR [facility] Rx# :[id number] propofoL 1,000 mg In 15.683 Empty Bag 1 bag @ Titrate IV .Q0M [facility] Rx#: [id number] Oral 500 400 Tube Feeding 1200 Output: Chest Tube Drainage 370 434 160 left pleural 100 164 60 mediastinal x2 270 270 100 Urine 605 805 155 Other: Voiding Method Indwelling Catheter Indwelling Catheter Indwelling Catheter Weight 98.4 kg 98.4 kg ABP, PAP, CO, CI - Last 8 Hours Arterial Blood Pressure 106/42 Arterial Blood Pressure 105/41 Arterial Blood Pressure 122/45 Arterial Blood Pressure 140/46 Arterial Blood Pressure 123/47 Arterial Blood Pressure 129/50 Arterial Blood Pressure 123/44 Arterial Blood Pressure 114/42 Arterial Blood Pressure 136/48 Arterial Blood Pressure 119/52 Arterial Blood Pressure 129/52 Arterial Blood Pressure 130/52 Pulmonary Artery Pressure 50/18 Pulmonary Artery Pressure 55/21 Pulmonary Artery Pressure 54/20 Pulmonary Artery Pressure 60/23 Pulmonary Artery Pressure 66/22 Pulmonary Artery Pressure 65/22 Pulmonary Artery Pressure 60/19 Pulmonary Artery Pressure 58/20 Pulmonary Artery Pressure 76/32 Pulmonary Artery Pressure 71/27 Pulmonary Artery Pressure 73/25 Pulmonary Artery Pressure 69/25 Cardiac Output 6.5 Cardiac Output 6.2 Cardiac Output 6.1 Cardiac Index 3.1 Cardiac Index 3 Cardiac Index 2.9 GENERAL EXAM: Alert, pale, pleasant 72-year-old male, and 3 L nasal cannula, up in a chair at the bedside, fairly comfortable in no apparent distress. HEAD: Normocephalic. EYES: Normal reaction of pupils, equal size. NOSE: Clear with pink turbinates. THROAT: No erythema or exudates. NECK: Right IJ [place]-Varghese catheter in place. No masses, no JVD. CHEST: Surgical dressing dry and intact. Heart Hugger in place. Mediastinal 2, left pleural chest tubes in place LUNGS: Equal air entry with no crackles, wheeze, rhonchi or dullness. CVS: S1 and S2 normal with no audible murmur, regular rhythm. ABDOMEN: No hepatosplenomegaly, normal bowel sounds, no guarding or rigidity. SPINE: No scoliosis or deformity SKIN: No rashes CENTRAL NERVOUS SYSTEM: No focal deficits, tone is normal in all 4 extremities. EXTREMITIES: Arterial line secured in place. There is no peripheral edema. No clubbing, no cyanosis. Peripheral pulses are intact. Results - Laboratory Findings CBC and BMP: 04/20/22 02:50 04/20/22 05:55 ABG ABG pH 7.36 (7.35-7.45) 04/19/22 20:05 ABG pCO2 43 mmHg (35-45) 04/19/22 20:05 ABG pO2 162 mmHg (83-108) H 04/19/22 20:05 ABG O2 Saturation 99.9 % (94-97) H 04/19/22 20:05 PT/INR, D-dimer PT 12.0 sec (9.0-12.0) 04/19/22 15:45 INR 1.1 (<1.2) 04/19/22 15:45 Abnormal lab findings: Abnormal Labs 04/12/22 04/19/22 04/19/22 09:21 06:10 06:15 WBC RBC 2.83 L Hgb 9.1 L Hct 28.7 L MCV 101.4 H MCHC RDW Plt Count Neutrophils # Lymphocytes # Monocytes # APTT ABG pH ABG pCO2 ABG pO2 ABG Total CO2 ABG O2 Saturation ABG Hematocrit ABG Potassium ABG Glucose ABG Lactic Acid Hemoglobin Potassium Chloride BUN Creatinine Glucose POC Glucose (mg/dL) 148 H Calcium Magnesium AST Alkaline Phosphatase Total Protein Albumin Arterial Blood Potassium Arterial Blood Glucose Crossmatch See Detail 04/19/22 04/19/22 04/19/22 06:15 08:37 10:14 WBC RBC Hgb Hct MCV MCHC RDW Plt Count Neutrophils # Lymphocytes # Monocytes # APTT ABG pH 7.32 L 7.34 L ABG pCO2 ABG pO2 170 H 243 H ABG Total CO2 25 H ABG O2 Saturation 100.0 H 100.0 H ABG Hematocrit 24 L 23 L ABG Potassium 4.7 H 4.7 H ABG Glucose 139 H 159 H ABG Lactic Acid Hemoglobin 7.9 L 7.5 L Potassium Chloride 112 H BUN 27 H Creatinine 1.43 H Glucose 162 H POC Glucose (mg/dL) Calcium Magnesium AST Alkaline Phosphatase Total Protein Albumin Arterial Blood Potassium 4.7 H 4.7 H Arterial Blood Glucose 139 H 159 H Crossmatch 04/19/22 04/19/22 04/19/22 10:47 10:56 11:32 WBC RBC Hgb Hct MCV MCHC RDW Plt Count Neutrophils # Lymphocytes # Monocytes # APTT ABG pH 7.18 L* 7.33 L ABG pCO2 58 H ABG pO2 273 H 395 H 258 H ABG Total CO2 ABG O2 Saturation 100.0 H 100.0 H 100.0 H ABG Hematocrit 23 L 24 L 23 L ABG Potassium 4.6 H 4.9 H 4.7 H ABG Glucose 159 H 165 H 131 H ABG Lactic Acid Hemoglobin 7.4 L 7.9 L 7.6 L Potassium Chloride BUN Creatinine Glucose POC Glucose (mg/dL) Calcium Magnesium AST Alkaline Phosphatase Total Protein Albumin Arterial Blood Potassium 4.6 H 4.9 H 4.7 H Arterial Blood Glucose 159 H 165 H 131 H Crossmatch 04/19/22 04/19/22 04/19/22 12:06 12:42 13:07 WBC RBC Hgb Hct MCV MCHC RDW Plt Count Neutrophils # Lymphocytes # Monocytes # APTT ABG pH 7.33 L 7.33 L ABG pCO2 ABG pO2 346 H 356 H 309 H ABG Total CO2 25 H ABG O2 Saturation 100.0 H 100.0 H 100.0 H ABG Hematocrit 23 L 22 L 24 L ABG Potassium 4.8 H 5.4 H 5.5 H ABG Glucose 125 H 111 H 115 H ABG Lactic Acid 1.8 H Hemoglobin 7.5 L 7.0 L* 7.7 L Potassium Chloride BUN Creatinine Glucose POC Glucose (mg/dL) Calcium Magnesium AST Alkaline Phosphatase Total Protein Albumin Arterial Blood Potassium 4.8 H 5.4 H 5.5 H Arterial Blood Glucose 125 H 111 H 115 H Crossmatch 04/19/22 04/19/22 04/19/22 14:09 15:21 15:45 WBC 14.0 H RBC 2.83 L Hgb 8.8 L Hct 28.3 L MCV MCHC RDW 16.6 H Plt Count Neutrophils # 12.0 H Lymphocytes # 0.6 L Monocytes # 1.1 H APTT ABG pH 7.27 L ABG pCO2 50 H ABG pO2 117 H ABG Total CO2 25 H ABG O2 Saturation 98.7 H ABG Hematocrit 22 L ABG Potassium 4.8 H ABG Glucose 123 H ABG Lactic Acid 1.7 H Hemoglobin 7.2 L Potassium Chloride BUN Creatinine Glucose POC Glucose (mg/dL) 168 H Calcium Magnesium AST Alkaline Phosphatase Total Protein Albumin Arterial Blood Potassium 4.8 H Arterial Blood Glucose 123 H Crossmatch 04/19/22 04/19/22 04/19/22 15:45 15:45 15:48 WBC RBC Hgb Hct MCV MCHC RDW Plt Count Neutrophils # Lymphocytes # Monocytes # APTT 30.9 H ABG pH 7.27 L ABG pCO2 53 H ABG pO2 327 H ABG Total CO2 26 H ABG O2 Saturation 100.0 H ABG Hematocrit ABG Potassium ABG Glucose ABG Lactic Acid Hemoglobin Potassium Chloride 115 H BUN 27 H Creatinine 1.34 H Glucose 160 H POC Glucose (mg/dL) Calcium 8.3 L Magnesium 4.9 H AST 92 H Alkaline Phosphatase 28 L Total Protein 4.8 L Albumin 3.1 L Arterial Blood Potassium Arterial Blood Glucose Crossmatch 04/19/22 04/19/22 04/19/22 17:10 17:58 18:00 WBC 10.9 H RBC 2.59 L Hgb 8.4 L Hct 25.4 L MCV MCHC RDW 16.1 H Plt Count Neutrophils # 9.2 H Lymphocytes # 0.4 L Monocytes # APTT ABG pH ABG pCO2 ABG pO2 ABG Total CO2 ABG O2 Saturation ABG Hematocrit ABG Potassium ABG Glucose ABG Lactic Acid Hemoglobin Potassium Chloride BUN Creatinine Glucose POC Glucose (mg/dL) 136 H 135 H Calcium Magnesium AST Alkaline Phosphatase Total Protein Albumin Arterial Blood Potassium Arterial Blood Glucose Crossmatch 04/19/22 04/19/22 04/19/22 18:58 20:00 20:05 WBC RBC Hgb Hct MCV MCHC RDW Plt Count Neutrophils # Lymphocytes # Monocytes # APTT ABG pH ABG pCO2 ABG pO2 162 H ABG Total CO2 25 H ABG O2 Saturation 99.9 H ABG Hematocrit ABG Potassium ABG Glucose ABG Lactic Acid Hemoglobin Potassium Chloride BUN Creatinine Glucose POC Glucose (mg/dL) 123 H 128 H Calcium Magnesium AST Alkaline Phosphatase Total Protein Albumin Arterial Blood Potassium Arterial Blood Glucose Crossmatch 04/19/22 04/19/22 04/19/22 20:09 21:07 21:58 WBC RBC 2.51 L Hgb 7.9 L Hct 24.9 L MCV MCHC RDW 16.2 H Plt Count 138 L Neutrophils # Lymphocytes # 0.3 L Monocytes # APTT ABG pH ABG pCO2 ABG pO2 ABG Total CO2 ABG O2 Saturation ABG Hematocrit ABG Potassium ABG Glucose ABG Lactic Acid Hemoglobin Potassium Chloride BUN Creatinine Glucose POC Glucose (mg/dL) 125 H 124 H Calcium Magnesium AST Alkaline Phosphatase Total Protein Albumin Arterial Blood Potassium Arterial Blood Glucose Crossmatch 04/19/22 04/19/2204/20/22 22:57 23:58 00:57 WBC RBC Hgb Hct MCV MCHC RDW Plt Count Neutrophils # Lymphocytes # Monocytes # APTT ABG pH ABG pCO2 ABG pO2 ABG Total CO2 ABG O2 Saturation ABG Hematocrit ABG Potassium ABG Glucose ABG Lactic Acid Hemoglobin Potassium Chloride BUN Creatinine Glucose POC Glucose (mg/dL) 127 H 132 H 118 H Calcium Magnesium AST Alkaline Phosphatase Total Protein Albumin Arterial Blood Potassium Arterial Blood Glucose Crossmatch 04/20/22 04/20/22 04/20/22 01:56 02:50 02:50 WBC RBC 2.53 L Hgb 7.7 L Hct 25.4 L MCV 100.5 H MCHC 30.1 L RDW 16.5 H Plt Count 139 L Neutrophils # Lymphocytes # 0.5 L Monocytes # APTT ABG pH ABG pCO2 ABG pO2 ABG Total CO2 ABG O2 Saturation ABG Hematocrit ABG Potassium ABG Glucose ABG Lactic Acid Hemoglobin Potassium 5.8 H Chloride 112 H BUN 32 H Creatinine 1.68 H Glucose 111 H POC Glucose (mg/dL) 120 H Calcium 8.1 L Magnesium 4.1 H AST 130 H Alkaline Phosphatase 30 L Total Protein 5.0 L Albumin Arterial Blood Potassium Arterial Blood Glucose Crossmatch 04/20/22 04/20/22 04/20/22 02:52 03:50 04:48 WBC RBC Hgb Hct MCV MCHC RDW Plt Count Neutrophils # Lymphocytes # Monocytes # APTT ABG pH ABG pCO2 ABG pO2 ABG Total CO2 ABG O2 Saturation ABG Hematocrit ABG Potassium ABG Glucose ABG Lactic Acid Hemoglobin Potassium Chloride BUN Creatinine Glucose POC Glucose (mg/dL) 119 H 115 H 117 H Calcium Magnesium AST Alkaline Phosphatase Total Protein Albumin Arterial Blood Potassium Arterial Blood Glucose Crossmatch 04/20/22 04/20/22 04/20/22 05:53 05:55 06:51 WBC RBC Hgb Hct MCV MCHC RDW Plt Count Neutrophils # Lymphocytes # Monocytes # APTT ABG pH ABG pCO2 ABG pO2 ABG Total CO2 ABG O2 Saturation ABG Hematocrit ABG Potassium ABG Glucose ABG Lactic Acid Hemoglobin Potassium 5.5 H Chloride 111 H BUN 32 H Creatinine 1.73 H Glucose 111 H POC Glucose (mg/dL) 119 H 115 H Calcium 8.0 L Magnesium 3.6 H AST Alkaline Phosphatase Total Protein Albumin Arterial Blood Potassium Arterial Blood Glucose Crossmatch 04/20/22 04/20/22 04/20/22 08:06 08:58 09:55 WBC RBC Hgb Hct MCV MCHC RDW Plt Count Neutrophils # Lymphocytes # Monocytes # APTT ABG pH ABG pCO2 ABG pO2 ABG Total CO2 ABG O2 Saturation ABG Hematocrit ABG Potassium ABG Glucose ABG Lactic Acid Hemoglobin Potassium Chloride BUN Creatinine Glucose POC Glucose (mg/dL) 303 H 233 H 170 H Calcium Magnesium AST Alkaline Phosphatase Total Protein Albumin Arterial Blood Potassium Arterial Blood Glucose Crossmatch 04/20/22 11:02 WBC RBC Hgb Hct MCV MCHC RDW Plt Count Neutrophils # Lymphocytes # Monocytes # APTT ABG pH ABG pCO2 ABG pO2 ABG Total CO2 ABG O2 Saturation ABG Hematocrit ABG Potassium ABG Glucose ABG Lactic Acid Hemoglobin Potassium Chloride BUN Creatinine Glucose POC Glucose (mg/dL) 125 H Calcium Magnesium AST Alkaline Phosphatase Total Protein Albumin Arterial Blood Potassium Arterial Blood Glucose Crossmatch - Diagnostic Findings Chest x-ray: image reviewed Assessment and Plan Assessment: Coronary artery disease with valvular heart disease. Status post mitral valve repair, coronary bypass grafting 3 with an SVG to the first diagonal, obtuse marginal and posterior descending coronary arteries, closure of a PFO, modified Castanon-Maze procedure and litigation of the left atrial appendage. Postoperative d ay #1. Acute hypoxemic respiratory failure secondary to above, expected outcome of surgery, currently on 3 L nasal cannula Paroxysmal atrial fibrillation Chronic and ongoing tobacco dependence Chronic obstructive pulmonary disease, maintained on Trelegy and DuoNeb inhalations in the outpatient setting Acute on chronic anemia, status post 2 units packed red blood cells is in remission. Current hemoglobin 7.7 Osteoarthritis at multiple orthopedic surgeries Diabetes mellitus Hyperlipidemia Plan: The patient was seen and evaluated Chest x-ray, labs and medications reviewed Stable and on 3 L nasal cannula Encouraged increased use of the incentive spirometer Educated regarding the importance of complete smoking cessation Continue DuoNeb inhalations, Symbicort Heparin for DVT prophylaxis Titrate down the FiO2 as tolerated Increase his activity as tolerated We will continue to follow and make further recommendations based on his clinical status I have personally seen and examined the patient, performed the documentation and the assessment and plan as written. Number of minutes spent on the visit: 20.
--- NOTE | 2022-04-20 11:36 | CONS ---
CONSULTATION HISTORY OF PRESENT ILLNESS: This is a 72-year-old gentleman, who underwent aortocoronary bypass surgery, surgical closure of PFO, Maze procedure, and mitral valve repair performed by Dr. Raines. This was a high-risk operation, and the patient apparently intraoperatively had an episode of hypotension related to some protamine reaction, but he has recovered from this. This gentleman had bypass surgery with saphenous vein graft to the first diagonal, obtuse marginal, and PDA branches and closure of PFO. He has been extubated. He is actually doing well. His ejection fraction is in the 40% to 45% range. He has calcified coronary arteries. He is off the Cleviprex drip, seems to be doing well with fair urine output. He is also working on his incentive spirometry. Please refer to the detailed note by Dr. Man from his recent cardiac catheterization. PAST MEDICAL HISTORY: This patient has other comorbid conditions in the form of paroxysmal atrial fibrillation, type 2 diabetes, hypertension, and hyperlipidemia. LABORATORY DATA: Suggest that his renal function is mildly impaired at 1.73. He is receiving some albumin and IV fluids. PHYSICAL EXAMINATION: VITAL SIGNS: On examination, blood pressure is 108/70, pulse rate is 70, sinus. HEENT: Unremarkable. Fundus was not examined. NECK: Supple. There is JVD 1 cm. No carotid bruit. HEART: S1 and S2 heard normally. I cannot appreciate any murmurs. There is a lot of pericardial noise. LUNGS: Reveal diminished air entry in bilateral lung west. ABDOMEN: Deferred. LOWER EXTREMITIES: Reveal diminished pulses. CENTRAL NERVOUS SYSTEM: Grossly, no focal deficits. IMPRESSION: 1. Status post bypass surgery, mitral valve repair, and patent foramen ovale closure. High-risk surgery, did well. 2. Type 2 diabetes. 3. Hypertension. 4. Hyperlipidemia. RECOMMENDATIONS: Same medical regimen. Continue incentive spirometry. Prognosis is good with therapy. The patient is doing very well. MMODL / IJN: [id number] /
[2022-04-20 12:21] LABS: Glucose,Whole Blood 126 mg/dL (70-110)
--- NOTE | 2022-04-20 12:41 | P.PN ---
Subjective Progress Note Date: 04/20/22 Principal diagnosis: Severe mitral valve regurgitation, coronary artery disease, paroxysmal atrial fibrillation, patent foramen ovale, tricuspid regurgitation, chronic valvular systolic congestive heart failure. Past medical history significant for hypertension, hyperlipidemia, coronary artery disease with history of previous PCI to his circumflex coronary artery in May 2001, non-ST elevated myocardial infarction of November 2021, ischemic cardiomyopathy with an ejection f raction of 40-45%, anemia with history of GI bleed in November 2021 receiving a transfusion 4 units of packed red blood cells, diabetes mellitus type 2, osteoarthritis, COPD with a preoperative FEV1 of 41% with a base volume of 1.24 L, chronic ongoing nicotine dependence, chronic low back pain and a hearing disorder. POD #1 Mitral valve repair with 28 mm physio-2 ring, CABG 3 with saphenous vein grafts to first diagonal, obtuse marginal, posterior descending coronary arteries, closure of PFO, endovascular vein harvest, modified Castanon maze procedure with full left-sided lesion set and ligation of the left atrial appendage, SCOTT by anesthesia. Postoperative acute blood loss anemia, expected given his history of anemia, hemodilution and cardiopulmonary bypass. The patient was seen and examined in follow-up today 04/20/2022 at his bedside in the intensive care unit. He was successfully extubated at 8:17 PM last evening, oxygen saturation is are currently 96% on 3 L nasal cannula and he is achieving 1000 mL on his incentive spirometry with encouragement. Bedside telemetry showing normal sinus rhythm heart rate 71 BPM. Epinephrine drip and nitroglycerin drip have been discontinued. The patient currently rates his pain 5 out of 10 on the pain scale 2 his chest tube insertion sites and with taking a deep breath. Right IJ Cordis and Leasburg-Varghese catheter remain in place with current hemodynamic showing a cardiac output of 6.2, cardiac index 3.0, PA pressure 67/19 and CVP 19 mmHg. Mooney catheter remains in place for accurate I's and O's and his urine output in the last 8 hours was 805 mL. Chest x-ray results reviewed this morning. Mediastinal and left pleural chest tubes remain in place to low continuous wall suction -20 cm H2O. No air leak is present. Draining thin serosanguineous drainage. Mediastinal chest tubes drained 270 mL output in the last 8 hours and 550 mL output since surgery, left pleural chest tube drained 165 mL output in the last 8 hours and 250 mL output since surgery. Laboratory results reviewed this morning, the patient's potassium was 5.8 this morning he was given 20 mg of Lasix IV 1 and a repeat potassium was 5.5. Objective - Vital Signs Vital signs: Vital Signs Temp 99.0 F 04/20/22 04:00 Pulse 63 04/20/22 10:00 Resp 24 04/20/22 10:00 BP 111/48 04/20/22 10:00 Pulse Ox 97 04/20/22 10:00 FiO2 50 04/19/22 20:00 Intake & Output 04/19/22 04/20/22 04/20/22 18:59 06:59 18:59 Intake Total 2483.683 2932.841 584.751 Output Total 3035 1539 315 Balance -645.631 7187.841 269.751 Weight 98.4 kg 98.4 kg Intake: IV 168 977 167 ACETAMINOPHEN IV (For NPO 100 ) 1,000 mg In Empty Bag 1 bag @ 400 mls/hr IVPB Q6HR ZULMA Rx#:[id number] Lactated Ringers 1,000 ml 550 60 @ 50 mls/hr IV .Q20H ZULMA Rx#:[id number] cardiac ooutput 80 151 30 ceFAZolin 2 gm In Sodium 50 50 Chloride 0.9% 50 ml @ 100 mls/hr IVPB Q8HR ZULMA Rx# :[id number] pressure bags 36 126 27 Intake, IV Titration 715.683 255.841 17.751 Amount Albumin Human 5% 250 ml @ 500 250 0 mls/hr IVPB .STK-MED ONE Rx#:[id number] Insulin Regular 100 unit 5.841 17.751 In Sodium Chloride 0.9% 100 ml @ Per Protocol IV .Q0M ZULMA Rx#:[id number] Lactated Ringers 1,000 ml 150 @ 50 mls/hr IV .Q20H ZULMA Rx#:[id number] ceFAZolin 2 gm In Sodium 50 Chloride 0.9% 50 ml @ 100 mls/hr IVPB Q8HR ZULMA Rx# :[id number] propofoL 1,000 mg In 15.683 Empty Bag 1 bag @ Titrate IV .Q0M ZULMA Rx#: [id number] Oral 500 400 Tube Feeding 1200 Blood Product 1600 Ffp 24 Cpd Unit 319 [id number] Ffp 24 Cpd Unit 314 [id number] Platelet Pheresis Pas 347 Psoralen Unit [id number] Rc As-1 Unit 310 [id number] Rc As-1 Unit 310 [id number] Output: Chest Tube Drainage 230 574 160 left pleural 80 184 60 mediastinal x2 150 390 100 Urine 805 965 155 Estimated Blood Loss 1999 Other: Voiding Method Indwelling Catheter Indwelling Catheter Indwelling Catheter ABP, PAP, CO, CI - Last Documented Arterial Blood Pressure 106/42 Pulmonary Artery Pressure 50/18 Cardiac Output 6.5 Cardiac Index 3.1 - Exam CONSTITUTIONAL: Sitting up to the bedside chair in the intensive care unit, appears comfortable, cooperative, no apparent acute distress. HEENT: Neck is supple, no JVD, no lymphadenopathy. Right IJ Cordis and Leasburg- Varghese catheter in place and functioning. RESPIRATORY: Lungs sounds essentially clear throughout, diminished to his bilateral bases. Respirations are symmetrical and nonlabored. Currently on 3 L nasal cannula with oxygen saturations 96%. Able to achieve 1000 mL on incentive spirometry. Strong cough. CARDIOVASCULAR: Regular rhythm and rate. S1 and S2 present, negative for S3, gallop or murmur. Sternum is stable. Palpable peripheral pulses bilaterally, +1 edema to his bilateral lower extremities. No calf pain or tenderness noted. Heart hugger in place with patient demonstrating appropriate use. Knee-high RAFAEL hose and sequential compression devices in place to his bilateral lower extremities. GASTROINTESTINAL: Abdomen soft, nontender, nondistended. Hypoactive bowel sounds present 4 quadrants. Tolerating diet. Passing flatus. No guarding or rigidity. GENITOURINARY: Mooney present draining clear, yellow urine. Urine output 805 mL in the last 8 hours. INTEGUMENTARY: Skin is warm and dry with no evidence of clubbing or cyanosis. Midline sternal incision clean dry and well approximated, covered with dry intact dressing. Bilateral lower extremity EVH sites well approximated without redness or drainage. NEUROLOGIC: Cranial nerves II through XII intact. No focal deficits. MUSKULOSKELETAL: Able to move all extremities, strength equal bilaterally, generalized weakness. PSYCHIATRIC: Alert and oriented to person place and time, appropriate affect, intact judgment and insight. INVASIVE LINES AND TUBES: Mediastinal/left pleural chest tubes present and connected to low continuous wall suction, no air leaks present. Mediastinal tubes with 270 mL of thin serosanguineous drainage overnight, 550 mL output in the last 24 hours. Left pleural chest tube with 165 mL of thin serosanguineous drainage overnight, 250 mL output in the last 24 hours. Atrial and ventricular epicardial pacemaker wires present, connected to generator, VVI backup rate 50 bpm. Right internal jugular Leasburg/Cordis, right radial arterial line present. Last CO 6.0, CI 3.0, PA 67/19 and CVP 19 mmHg. - Allied health notes Allied health notes reviewed: nursing - Labs CBC & Chem 7: 04/20/22 02:50 04/20/22 05:55 Labs: Abnormal Lab Results - Last 24 Hours (Table) 04/12/22 04/19/22 04/19/22 Range/Units 09:21 08:37 10:14 WBC (3.8-10.6) k/uL RBC (4.30-5.90) m/uL Hgb (13.0-17.5) gm/dL Hct (39.0-53.0) % MCV (80.0-100.0) fL MCHC (31.0-37.0) g/dL RDW (11.5-15.5) % Plt Count (150-450) k/uL Neutrophils # (1.3-7.7) k/uL Lymphocytes # (1.0-4.8) k/uL Monocytes # (0-1.0) k/uL APTT (22.0-30.0) sec ABG pH 7.32 L 7.34 L (7.35-7.45) ABG pCO2 (35-45) mmHg ABG pO2 170 H 243 H (83-108) mmHg ABG Total CO2 25 H (19-24) mmol/L ABG O2 Saturation 100.0 H 100.0 H (94-97) % ABG Hematocrit 24 L 23 L (34.0-46.0) % ABG Potassium 4.7 H 4.7 H (3.4-4.5) mmol/L ABG Glucose 139 H 159 H (75-99) mg/dL ABG Lactic Acid (0.5-1.6) mmol/L Hemoglobin 7.9 L 7.5 L (13.0-17.5) gm/dL Potassium (3.5-5.1) mmol/L Chloride (98-107) mmol/L BUN (9-20) mg/dL Creatinine (0.66-1.25) mg/dL Glucose (74-99) mg/dL POC Glucose (mg/dL) (70-110) mg/dL Calcium (8.4-10.2) mg/dL Magnesium (1.6-2.3) mg/dL AST (17-59) U/L Alkaline Phosphatase (38-126) U/L Total Protein (6.3-8.2) g/dL Albumin (3.5-5.0) g/dL Arterial Blood Potassium 4.7 H 4.7 H (3.4-4.5) mmol/L Arterial Blood Glucose 139 H 159 H (75-99) mg/dL Crossmatch See Detail 04/19/22 04/19/22 04/19/22 Range/Units 10:47 10:56 11:32 WBC (3.8-10.6) k/uL RBC (4.30-5.90) m/uL Hgb (13.0-17.5) gm/dL Hct (39.0-53.0) % MCV (80.0-100.0) fL MCHC (31.0-37.0) g/dL RDW (11.5-15.5) % Plt Count (150-450) k/uL Neutrophils # (1.3-7.7) k/uL Lymphocytes # (1.0-4.8) k/uL Monocytes # (0-1.0) k/uL APTT (22.0-30.0) sec ABG pH 7.18 L* 7.33 L (7.35-7.45) ABG pCO2 58 H (35-45) mmHg ABG pO2 273 H 395 H 258 H (83-108) mmHg ABG Total CO2 (19-24) mmol/L ABG O2 Saturation 100.0 H 100.0 H 100.0 H (94-97) % ABG Hematocrit 23 L 24 L 23 L (34.0-46.0) % ABG Potassium 4.6 H 4.9 H 4.7 H (3.4-4.5) mmol/L ABG Glucose 159 H 165 H 131 H (75-99) mg/dL ABG Lactic Acid (0.5-1.6) mmol/L Hemoglobin 7.4 L 7.9 L 7.6 L (13.0-17.5) gm/dL Potassium (3.5-5.1) mmol/L Chloride (98-107) mmol/L BUN (9-20) mg/dL Creatinine (0.66-1.25) mg/dL Glucose (74-99) mg/dL POC Glucose (mg/dL) (70-110) mg/dL Calcium (8.4-10.2) mg/dL Magnesium (1.6-2.3) mg/dL AST (17-59) U/L Alkaline Phosphatase (38-126) U/L Total Protein (6.3-8.2) g/dL Albumin (3.5-5.0) g/dL Arterial Blood Potassium 4.6 H 4.9 H 4.7 H (3.4-4.5) mmol/L Arterial Blood Glucose 159 H 165 H 131 H (75-99) mg/dL Crossmatch 04/19/22 04/19/22 04/19/22 Range/Units 12:06 12:42 13:07 WBC (3.8-10.6) k/uL RBC (4.30-5.90) m/uL Hgb (13.0-17.5) gm/dL Hct (39.0-53.0) % MCV (80.0-100.0) fL MCHC (31.0-37.0) g/dL RDW (11.5-15.5) % Plt Count (150-450) k/uL Neutrophils # (1.3-7.7) k/uL Lymphocytes # (1.0-4.8) k/uL Monocytes # (0-1.0) k/uL APTT (22.0-30.0) sec ABG pH 7.33 L 7.33 L (7.35-7.45) ABG pCO2 (35-45) mmHg ABG pO2 346 H 356 H 309 H (83-108) mmHg ABG Total CO2 25 H (19-24) mmol/L ABG O2 Saturation 100.0 H 100.0 H 100.0 H (94-97) % ABG Hematocrit 23 L 22 L 24 L (34.0-46.0) % ABG Potassium 4.8 H 5.4 H 5.5 H (3.4-4.5) mmol/L ABG Glucose 125 H 111 H 115 H (75-99) mg/dL ABG Lactic Acid 1.8 H (0.5-1.6) mmol/L Hemoglobin 7.5 L 7.0 L* 7.7 L (13.0-17.5) gm/dL Potassium (3.5-5.1) mmol/L Chloride (98-107) mmol/L BUN (9-20) mg/dL Creatinine (0.66-1.25) mg/dL Glucose (74-99) mg/dL POC Glucose (mg/dL) (70-110) mg/dL Calcium (8.4-10.2) mg/dL Magnesium (1.6-2.3) mg/dL AST (17-59) U/L Alkaline Phosphatase (38-126) U/L Total Protein (6.3-8.2) g/dL Albumin (3.5-5.0) g/dL Arterial Blood Potassium 4.8 H 5.4 H 5.5 H (3.4-4.5) mmol/L Arterial Blood Glucose 125 H 111 H 115 H (75-99) mg/dL Crossmatch 04/19/22 04/19/22 04/19/22 Range/Units 14:09 15:21 15:45 WBC 14.0 H (3.8-10.6) k/uL RBC 2.83 L (4.30-5.90) m/uL Hgb 8.8 L (13.0-17.5) gm/dL Hct 28.3 L (39.0-53.0) % MCV (80.0-100.0) fL MCHC (31.0-37.0) g/dL RDW 16.6 H (11.5-15.5) % Plt Count (150-450) k/uL Neutrophils # 12.0 H (1.3-7.7) k/uL Lymphocytes # 0.6 L (1.0-4.8) k/uL Monocytes # 1.1 H (0-1.0) k/uL APTT (22.0-30.0) sec ABG pH 7.27 L (7.35-7.45) ABG pCO2 50 H (35-45) mmHg ABG pO2 117 H (83-108) mmHg ABG Total CO2 25 H (19-24) mmol/L ABG O2 Saturation 98.7 H (94-97) % ABG Hematocrit 22 L (34.0-46.0) % ABG Potassium 4.8 H (3.4-4.5) mmol/L ABG Glucose 123 H (75-99) mg/dL ABG Lactic Acid 1.7 H (0.5-1.6) mmol/L Hemoglobin 7.2 L (13.0-17.5) gm/dL Potassium (3.5-5.1) mmol/L Chloride (98-107) mmol/L BUN (9-20) mg/dL Creatinine (0.66-1.25) mg/dL Glucose (74-99) mg/dL POC Glucose (mg/dL) 168 H (70-110) mg/dL Calcium (8.4-10.2) mg/dL Magnesium (1.6-2.3) mg/dL AST (17-59) U/L Alkaline Phosphatase (38-126) U/L Total Protein (6.3-8.2) g/dL Albumin (3.5-5.0) g/dL Arterial Blood Potassium 4.8 H (3.4-4.5) mmol/L Arterial Blood Glucose 123 H (75-99) mg/dL Crossmatch 04/19/22 04/19/22 04/19/22 Range/Units 15:45 15:45 15:48 WBC (3.8-10.6) k/uL RBC (4.30-5.90) m/uL Hgb (13.0-17.5) gm/dL Hct (39.0-53.0) % MCV (80.0-100.0) fL MCHC (31.0-37.0) g/dL RDW (11.5-15.5) % Plt Count (150-450) k/uL Neutrophils # (1.3-7.7) k/uL Lymphocytes # (1.0-4.8) k/uL Monocytes # (0-1.0) k/uL APTT 30.9 H (22.0-30.0) sec ABG pH 7.27 L (7.35-7.45) ABG pCO2 53 H (35-45) mmHg ABG pO2 327 H (83-108) mmHg ABG Total CO2 26 H (19-24) mmol/L ABG O2 Saturation 100.0 H (94-97) % ABG Hematocrit (34.0-46.0) % ABG Potassium (3.4-4.5) mmol/L ABG Glucose (75-99) mg/dL ABG Lactic Acid (0.5-1.6) mmol/L Hemoglobin (13.0-17.5) gm/dL Potassium (3.5-5.1) mmol/L Chloride 115 H (98-107) mmol/L BUN 27 H (9-20) mg/dL Creatinine 1.34 H (0.66-1.25) mg/dL Glucose 160 H (74-99) mg/dL POC Glucose (mg/dL) (70-110) mg/dL Calcium 8.3 L (8.4-10.2) mg/dL Magnesium 4.9 H (1.6-2.3) mg/dL AST 92 H (17-59) U/L Alkaline Phosphatase 28 L (38-126) U/L Total Protein 4.8 L (6.3-8.2) g/dL Albumin 3.1 L (3.5-5.0) g/dL Arterial Blood Potassium (3.4-4.5) mmol/L Arterial Blood Glucose (75-99) mg/dL Crossmatch 04/19/22 04/19/22 04/19/22 Range/Units 17:10 17:58 18:00 WBC 10.9 H (3.8-10.6) k/uL RBC 2.59 L (4.30-5.90) m/uL Hgb 8.4 L (13.0-17.5) gm/dL Hct 25.4 L (39.0-53.0) % MCV (80.0-100.0) fL MCHC (31.0-37.0) g/dL RDW 16.1 H (11.5-15.5) % Plt Count (150-450) k/uL Neutrophils # 9.2 H (1.3-7.7) k/uL Lymphocytes # 0.4 L (1.0-4.8) k/uL Monocytes # (0-1.0) k/uL APTT (22.0-30.0) sec ABG pH (7.35-7.45) ABG pCO2 (35-45) mmHg ABG pO2 (83-108) mmHg ABG Total CO2 (19-24) mmol/L ABG O2 Saturation (94-97) % ABG Hematocrit (34.0-46.0) % ABG Potassium (3.4-4.5) mmol/L ABG Glucose (75-99) mg/dL ABG Lactic Acid (0.5-1.6) mmol/L Hemoglobin (13.0-17.5) gm/dL Potassium (3.5-5.1) mmol/L Chloride (98-107) mmol/L BUN (9-20) mg/dL Creatinine (0.66-1.25) mg/dL Glucose (74-99) mg/dL POC Glucose (mg/dL) 136 H 135 H (70-110) mg/dL Calcium (8.4-10.2) mg/dL Magnesium (1.6-2.3) mg/dL AST (17-59) U/L Alkaline Phosphatase (38-126) U/L Total Protein (6.3-8.2) g/dL Albumin (3.5-5.0) g/dL Arterial Blood Potassium (3.4-4.5) mmol/L Arterial Blood Glucose (75-99) mg/dL Crossmatch 04/19/22 04/19/22 04/19/22 Range/Units 18:58 20:00 20:05 WBC (3.8-10.6) k/uL RBC (4.30-5.90) m/uL Hgb (13.0-17.5) gm/dL Hct (39.0-53.0) % MCV (80.0-100.0) fL MCHC (31.0-37.0) g/dL RDW (11.5-15.5) % Plt Count (150-450) k/uL Neutrophils # (1.3-7.7) k/uL Lymphocytes # (1.0-4.8) k/uL Monocytes # (0-1.0) k/uL APTT (22.0-30.0) sec ABG pH (7.35-7.45) ABG pCO2 (35-45) mmHg ABG pO2 162 H (83-108) mmHg ABG Total CO2 25 H (19-24) mmol/L ABG O2 Saturation 99.9 H (94-97) % ABG Hematocrit (34.0-46.0) % ABG Potassium (3.4-4.5) mmol/L ABG Glucose (75-99) mg/dL ABG Lactic Acid (0.5-1.6) mmol/L Hemoglobin (13.0-17.5) gm/dL Potassium (3.5-5.1) mmol/L Chloride (98-107) mmol/L BUN (9-20) mg/dL Creatinine (0.66-1.25) mg/dL Glucose (74-99) mg/dL POC Glucose (mg/dL) 123 H 128 H (70-110) mg/dL Calcium (8.4-10.2) mg/dL Magnesium (1.6-2.3) mg/dL AST (17-59) U/L Alkaline Phosphatase (38-126) U/L Total Protein (6.3-8.2) g/dL Albumin (3.5-5.0) g/dL Arterial Blood Potassium (3.4-4.5) mmol/L Arterial Blood Glucose (75-99) mg/dL Crossmatch 04/19/22 04/19/22 04/19/22 Range/Units 20:09 21:07 21:58 WBC (3.8-10.6) k/uL RBC 2.51 L (4.30-5.90) m/uL Hgb 7.9 L (13.0-17.5) gm/dL Hct 24.9 L (39.0-53.0) % MCV (80.0-100.0) fL MCHC (31.0-37.0) g/dL RDW 16.2 H (11.5-15.5) % Plt Count 138 L (150-450) k/uL Neutrophils # (1.3-7.7) k/uL Lymphocytes # 0.3 L (1.0-4.8) k/uL Monocytes # (0-1.0) k/uL APTT (22.0-30.0) sec ABG pH (7.35-7.45) ABG pCO2 (35-45) mmHg ABG pO2 (83-108) mmHg ABG Total CO2 (19-24) mmol/L ABG O2 Saturation (94-97) % ABG Hematocrit (34.0-46.0) % ABG Potassium (3.4-4.5) mmol/L ABG Glucose (75-99) mg/dL ABG Lactic Acid (0.5-1.6) mmol/L Hemoglobin (13.0-17.5) gm/dL Potassium (3.5-5.1) mmol/L Chloride (98-107) mmol/L BUN (9-20) mg/dL Creatinine (0.66-1.25) mg/dL Glucose (74-99) mg/dL POC Glucose (mg/dL) 125 H 124 H (70-110) mg/dL Calcium (8.4-10.2) mg/dL Magnesium (1.6-2.3) mg/dL AST (17-59) U/L Alkaline Phosphatase (38-126) U/L Total Protein (6.3-8.2) g/dL Albumin (3.5-5.0) g/dL Arterial Blood Potassium (3.4-4.5) mmol/L Arterial Blood Glucose (75-99) mg/dL Crossmatch 04/19/22 04/19/22 04/20/22 Range/Units 22:57 23:58 00:57 WBC (3.8-10.6) k/uL RBC (4.30-5.90) m/uL Hgb (13.0-17.5) gm/dL Hct (39.0-53.0) % MCV (80.0-100.0) fL MCHC (31.0-37.0) g/dL RDW (11.5-15.5) % Plt Count (150-450) k/uL Neutrophils # (1.3-7.7) k/uL Lymphocytes # (1.0-4.8) k/uL Monocytes # (0-1.0) k/uL APTT (22.0-30.0) sec ABG pH (7.35-7.45) ABG pCO2 (35-45) mmHg ABG pO2 (83-108) mmHg ABG Total CO2 (19-24) mmol/L ABG O2 Saturation (94-97) % ABG Hematocrit (34.0-46.0) % ABG Potassium (3.4-4.5) mmol/L ABG Glucose (75-99) mg/dL ABG Lactic Acid (0.5-1.6) mmol/L Hemoglobin (13.0-17.5) gm/dL Potassium (3.5-5.1) mmol/L Chloride (98-107) mmol/L BUN (9-20) mg/dL Creatinine (0.66-1.25) mg/dL Glucose (74-99) mg/dL POC Glucose (mg/dL) 127 H 132 H 118 H (70-110) mg/dL Calcium (8.4-10.2) mg/dL Magnesium (1.6-2.3) mg/dL AST (17-59) U/L Alkaline Phosphatase (38-126) U/L Total Protein (6.3-8.2) g/dL Albumin (3.5-5.0) g/dL Arterial Blood Potassium (3.4-4.5) mmol/L Arterial Blood Glucose (75-99) mg/dL Crossmatch 04/20/22 04/20/22 04/20/22 Range/Units 01:56 02:50 02:50 WBC (3.8-10.6) k/uL RBC 2.53 L (4.30-5.90) m/uL Hgb 7.7 L (13.0-17.5) gm/dL Hct 25.4 L (39.0-53.0) % MCV 100.5 H (80.0-100.0) fL MCHC 30.1 L (31.0-37.0) g/dL RDW 16.5 H (11.5-15.5) % Plt Count 139 L (150-450) k/uL Neutrophils # (1.3-7.7) k/uL Lymphocytes # 0.5 L (1.0-4.8) k/uL Monocytes # (0-1.0) k/uL APTT (22.0-30.0) sec ABG pH (7.35-7.45) ABG pCO2 (35-45) mmHg ABG pO2 (83-108) mmHg ABG Total CO2 (19-24) mmol/L ABG O2 Saturation (94-97) % ABG Hematocrit (34.0-46.0) % ABG Potassium (3.4-4.5) mmol/L ABG Glucose (75-99) mg/dL ABG Lactic Acid (0.5-1.6) mmol/L Hemoglobin (13.0-17.5) gm/dL Potassium 5.8 H (3.5-5.1) mmol/L Chloride 112 H (98-107) mmol/L BUN 32 H (9-20) mg/dL Creatinine 1.68 H (0.66-1.25) mg/dL Glucose 111 H (74-99) mg/dL POC Glucose (mg/dL) 120 H (70-110) mg/dL Calcium 8.1 L (8.4-10.2) mg/dL Magnesium 4.1 H (1.6-2.3) mg/dL AST 130 H (17-59) U/L Alkaline Phosphatase 30 L (38-126) U/L Total Protein 5.0 L (6.3-8.2) g/dL Albumin (3.5-5.0) g/dL Arterial Blood Potassium (3.4-4.5) mmol/L Arterial Blood Glucose (75-99) mg/dL Crossmatch 04/20/22 04/20/22 04/20/22 Range/Units 02:52 03:50 04:48 WBC (3.8-10.6) k/uL RBC (4.30-5.90) m/uL Hgb (13.0-17.5) gm/dL Hct (39.0-53.0) % MCV (80.0-100.0) fL MCHC (31.0-37.0) g/dL RDW (11.5-15.5) % Plt Count (150-450) k/uL Neutrophils # (1.3-7.7) k/uL Lymphocytes # (1.0-4.8) k/uL Monocytes # (0-1.0) k/uL APTT (22.0-30.0) sec ABG pH (7.35-7.45) ABG pCO2 (35-45) mmHg ABG pO2 (83-108) mmHg ABG Total CO2 (19-24) mmol/L ABG O2 Saturation (94-97) % ABG Hematocrit (34.0-46.0) % ABG Potassium (3.4-4.5) mmol/L ABG Glucose (75-99) mg/dL ABG Lactic Acid (0.5-1.6) mmol/L Hemoglobin (13.0-17.5) gm/dL Potassium (3.5-5.1) mmol/L Chloride (98-107) mmol/L BUN (9-20) mg/dL Creatinine (0.66-1.25) mg/dL Glucose (74-99) mg/dL POC Glucose (mg/dL) 119 H 115 H 117 H (70-110) mg/dL Calcium (8.4-10.2) mg/dL Magnesium (1.6-2.3) mg/dL AST (17-59) U/L Alkaline Phosphatase (38-126) U/L Total Protein (6.3-8.2) g/dL Albumin (3.5-5.0) g/dL Arterial Blood Potassium (3.4-4.5) mmol/L Arterial Blood Glucose (75-99) mg/dL Crossmatch 04/20/22 04/20/22 04/20/22 Range/Units 05:53 05:55 06:51 WBC (3.8-10.6) k/uL RBC (4.30-5.90) m/uL Hgb (13.0-17.5) gm/dL Hct (39.0-53.0) % MCV (80.0-100.0) fL MCHC (31.0-37.0) g/dL RDW (11.5-15.5) % Plt Count (150-450) k/uL Neutrophils # (1.3-7.7) k/uL Lymphocytes # (1.0-4.8) k/uL Monocytes # (0-1.0) k/uL APTT (22.0-30.0) sec ABG pH (7.35-7.45) ABG pCO2 (35-45) mmHg ABG pO2 (83-108) mmHg ABG Total CO2 (19-24) mmol/L ABG O2 Saturation (94-97) % ABG Hematocrit (34.0-46.0) % ABG Potassium (3.4-4.5) mmol/L ABG Glucose (75-99) mg/dL ABG Lactic Acid (0.5-1.6) mmol/L Hemoglobin (13.0-17.5) gm/dL Potassium 5.5 H (3.5-5.1) mmol/L Chloride 111 H (98-107) mmol/L BUN 32 H (9-20) mg/dL Creatinine 1.73 H (0.66-1.25) mg/dL Glucose 111 H (74-99) mg/dL POC Glucose (mg/dL) 119 H 115 H (70-110) mg/dL Calcium 8.0 L (8.4-10.2) mg/dL Magnesium 3.6 H (1.6-2.3) mg/dL AST (17-59) U/L Alkaline Phosphatase (38-126) U/L Total Protein (6.3-8.2) g/dL Albumin (3.5-5.0) g/dL Arterial Blood Potassium (3.4-4.5) mmol/L Arterial Blood Glucose (75-99) mg/dL Crossmatch 04/20/22 04/20/22 04/20/22 Range/Units 08:06 08:58 09:55 WBC (3.8-10.6) k/uL RBC (4.30-5.90) m/uL Hgb (13.0-17.5) gm/dL Hct (39.0-53.0) % MCV (80.0-100.0) fL MCHC (31.0-37.0) g/dL RDW (11.5-15.5) % Plt Count (150-450) k/uL Neutrophils # (1.3-7.7) k/uL Lymphocytes # (1.0-4.8) k/uL Monocytes # (0-1.0) k/uL APTT (22.0-30.0) sec ABG pH (7.35-7.45) ABG pCO2 (35-45) mmHg ABG pO2 (83-108) mmHg ABG Total CO2 (19-24) mmol/L ABG O2 Saturation (94-97) % ABG Hematocrit (34.0-46.0) % ABG Potassium (3.4-4.5) mmol/L ABG Glucose (75-99) mg/dL ABG Lactic Acid (0.5-1.6) mmol/L Hemoglobin (13.0-17.5) gm/dL Potassium (3.5-5.1) mmol/L Chloride (98-107) mmol/L BUN (9-20) mg/dL Creatinine (0.66-1.25) mg/dL Glucose (74-99) mg/dL POC Glucose (mg/dL) 303 H 233 H 170 H (70-110) mg/dL Calcium (8.4-10.2) mg/dL Magnesium (1.6-2.3) mg/dL AST (17-59) U/L Alkaline Phosphatase (38-126) U/L Total Protein (6.3-8.2) g/dL Albumin (3.5-5.0) g/dL Arterial Blood Potassium (3.4-4.5) mmol/L Arterial Blood Glucose (75-99) mg/dL Crossmatch 04/20/22 Range/Units 11:02 WBC (3.8-10.6) k/uL RBC (4.30-5.90) m/uL Hgb (13.0-17.5) gm/dL Hct (39.0-53.0) % MCV (80.0-100.0) fL MCHC (31.0-37.0) g/dL RDW (11.5-15.5) % Plt Count (150-450) k/uL Neutrophils # (1.3-7.7) k/uL Lymphocytes # (1.0-4.8) k/uL Monocytes # (0-1.0) k/uL APTT (22.0-30.0) sec ABG pH (7.35-7.45) ABG pCO2 (35-45) mmHg ABG pO2 (83-108) mmHg ABG Total CO2 (19-24) mmol/L ABG O2 Saturation (94-97) % ABG Hematocrit (34.0-46.0) % ABG Potassium (3.4-4.5) mmol/L ABG Glucose (75-99) mg/dL ABG Lactic Acid (0.5-1.6) mmol/L Hemoglobin (13.0-17.5) gm/dL Potassium (3.5-5.1) mmol/L Chloride (98-107) mmol/L BUN (9-20) mg/dL Creatinine (0.66-1.25) mg/dL Glucose (74-99) mg/dL POC Glucose (mg/dL) 125 H (70-110) mg/dL Calcium (8.4-10.2) mg/dL Magnesium (1.6-2.3) mg/dL AST (17-59) U/L Alkaline Phosphatase (38-126) U/L Total Protein (6.3-8.2) g/dL Albumin (3.5-5.0) g/dL Arterial Blood Potassium (3.4-4.5) mmol/L Arterial Blood Glucose (75-99) mg/dL Crossmatch Microbiology - Last 24 Hours (Table) 04/19/22 19:45 Gram Stain - Preliminary Sputum Sputum Culture - Preliminary - Imaging and Cardiology Chest x-ray: report reviewed, image reviewed Assessment and Plan Assessment: 1. Severe mitral valve regurgitation, status post mitral valve repair with a 28 mm physio-2 ring 2. Coronary artery disease, history of PCI to his circumflex coronary artery in May 2001, status post coronary artery bypass grafting 3 vessels 3. Paroxysmal atrial fibrillation, status post modified Castanon maze procedure with full left-sided lesion set and ligation of left atrial appendage 4. Patent foramen ovale, status post closure of PFO 5. Chronic valvular systolic congestive heart failure 6. Ischemic cardiomyopathy with an ejection fraction of 40-45% 7. Non-ST elevated myocardial infarction in November 2021 8. History of renal insufficiency with a baseline creatinine of 1.28-1.6 9. History of hypertension 10. History of hyperlipidemia, treated, cholesterol 150, LDL 72 and triglycerides 119 11. Chronic anemia, with a history of GI bleed in November of 2021 requiring transfusion of 4 units of packed red blood cells 12. Diabetes mellitus type 2 13. COPD with a preoperative FEV1 41% of predicted value with a base volume of 1.24 L 14. Chronic ongoing tobacco dependence 15. Osteoarthritis 16. Chronic lower back pain 17. Hearing disorder 18. Postoperative acute blood loss anemia, expected given his history of anemia, hemodilution and cardiopulmonary bypass Plan: 1. Continue aspirin, statin, fenofibrate, Plavix, and beta siomara therapy. Will increase beta siomara therapy as tolerated. 2. Discontinue IV nitroglycerin. 3. Discontinue epinephrine drip. 4. Continue amiodarone for A. fib prophylaxis, ChadsVasc 5. Amiodarone 200 mg by mouth twice a day. 5. Wean O2 as tolerated. Encourage incentive spirometry is 10 times every hour while awake. Bronchodilators per pulmonology. Patient is on Symbicort 804 0.5 g inhaler 2 puffs twice a day. 6. Increase activity, ambulate as tolerated. PT/OT/cardiac rehab consulted. 7. Will monitor daily labs and chest x-rays. Electronic replacement per protocol. 8. GI/DVT prophylaxis. 9. Insulin management per primary care service. Patient is a diabetic with a preoperative hemoglobin A1c of 5.6%. 10. Pain control with current medication regimen. 11. Continue [place], [place], arterial line present with a 24 hours. 12. Continue mediastinal/left pleural chest tubes for another 24 hours. 13. Continue [place] catheter for another 24 hours for strict accurate intake and output. 14. Daily weights. 15. Continue home dose of iron sulfate for history of anemia, start vitamin C 500 mg by mouth daily at noon. 16. The importance of risk modification including smoking cessation has been discussed with the patient. Smoking cessation information will be provided to the patient upon discharge. 17. More recommendations to follow based on patient's clinical course. Time with Patient: Greater than 30
--- NOTE | 2022-04-20 13:00 | P.CONS ---
History of Present Illness - Reason for Consult Posterior CABG - History of Present Illness Patient is a pleasant 72-year-old male came in the for elective mitral valve repair, hematocrit bypass grafting maze procedure, PFO closure. Patient is extubated sitting in the chair patient still has a [place] catheter, CVP of around 12, cardiac index 3.1 patient creatinine went up to 1.70 resulting elevated potassium of 5.5 patient is off pressor support, off nitro drip patient still has 2 mediastinal and one left-sided chest tube. REVIEW OF SYSTEMS: CONSTITUTIONAL: No fever, no malaise, no fatigue. HEENT: No recent visual problems or hearing problems. Denied any sore throat. CARDIOVASCULAR: No chest pain, orthopnea, PND, no palpitations, no syncope. PULMONARY: No shortness of breath, no cough, no hemoptysis. GASTROINTESTINAL: No diarrhea, no nausea, no vomiting, no abdominal pain. NEUROLOGICAL: No headaches, no weakness, no numbness. HEMATOLOGICAL: Denies any bleeding or petechiae. GENITOURINARY: Denies any burning micturition, frequency, or urgency. MUSCULOSKELETAL/RHEUMATOLOGICAL: Denies any joint pain, swelling, or any muscle pain. ENDOCRINE: Denies any polyuria or polydipsia. The rest of the 14-point review of systems is negative. PHYSICAL EXAMINATION: GENERAL: The patient is alert and oriented x3, not in any acute distress. Well developed, well nourished. HEENT: Pupils are round and equally reacting to light. EOMI. No scleral icterus. No conjunctival pallor. Normocephalic, atraumatic. No pharyngeal erythema. No thyromegaly. CARDIOVASCULAR: S1 and S2 present. No murmurs, rubs, or gallops. PULMONARY: Chest is clear to auscultation, no wheezing or crackles. ABDOMEN: Soft, nontender, nondistended, normoactive bowel sounds. No palpable organomegaly. MUSCULOSKELETAL: No joint swelling or deformity. EXTREMITIES: No cyanosis, clubbing, or pedal edema. NEUROLOGICAL: Gross neurological examination did not reveal any focal deficits. SKIN: No rashes. Assessment and plan -Coronary artery disease mitral valvular disease status post CABG mitral valve repair. Postoperative Management is mainly by cardiothoracic surgery -Elevated blood sugars, type 2 diabetes mellitus will use a sliding scale insulin for that, patient usually uses metformin and pioglitazone at home. -Proximal atrial fibrillation status post modified [place]-Maze procedure [place]- acute renal failure on chronic kidney disease stage II with renal failure is probably prerenal azotemia e-hyperkalemia secondary to acute and failure -COPD without any acute exacerbation Hyperlipidemia DVT prophylaxis: Patient is on subcutaneous heparin Past Medical History Past Medical History: Atrial Fibrillation, Blood Disorder, COPD, Diabetes Mellitus, GI Bleed, Hearing Disorder / Deafness, Hyperlipidemia, Hypertension, Myocardial Infarction ([place]), Pneumonia Additional Past Medical History / Comment(s): Anemia, had GI Bleed 11/22, had 4 units of blood. Bilateral lower extremity edema. Hx [place] X2. Insomnia. Hx Pneumonia. Chronic back pain. Last Myocardial Infarction Date:: 11/2021 History of Any Multi-Drug Resistant Organisms: None Reported Past Surgical History: Back Surgery, Heart Catheterization With Stent, Joint Replacement, Orthopedic Surgery Additional Past Surgical History / Comment(s): BILATERAL KNEE REPLACEMENTS, BILATERAL SHOULDER SURGERY, ONE CARDIAC STENT, back surgery X2 (lumbar decompression and fusion), BACK INJECTIONS, COLONOSCOPY, BILATERAL CATARACTS REMOVED WITH LENS IMPLANTS, Cardioversion. Past Anesthesia/Blood Transfusion Reactions: No Reported Reaction Date of Last Stent Placement:: 2000 Smoking Status: Current some day smoker - Past Family History Father Family Medical History: No Reported History Mother Family Medical History: No Reported History Medications and Allergies Home Medications Medication Instructions Recorded Confirmed Type Atorvastatin [Lipitor] 80 mg PO HS 04/26/14 04/12/22 History Ramipril 10 mg PO QAM 04/26/14 04/12/22 History metFORMIN HCL [Glucophage] 500 mg PO BID 04/26/14 04/12/22 History Liraglutide [Victoza 3-Casey] 1.8 mg SQ DAILY 02/19/17 04/12/22 History Metoprolol Tartrate 25 mg PO QAM 02/19/17 04/12/22 History Stool Softener(Unknown Name/Do 2 tab PO DAILY 02/19/17 04/12/22 History Vit C/E/Zn/Coppr/Lutein/Zeaxan 2 cap PO DAILY 02/19/17 04/12/22 History [Preservision Areds 2 Softgel] Acetaminophen [Tylenol Extra 500 - 1,000 mg PO DIRECTED PRN 02/02/20 04/12/22 History Strength] Pioglitazone [Actos] 15 mg PO DAILY 02/02/20 04/19/22 History Apixaban [Eliquis] 5 mg PO BID 11/09/21 04/12/22 History Fluticasone/Umeclidin/Vilanter 1 inhalation INHALATION HS 11/09/21 04/12/22 History [Carlos Cowartta 100-62.5-25] Fenofibrate 160 mg PO HS 12/22/21 04/12/22 History Ferrous Sulfate [Feosol] 325 mg PO BID 12/22/21 04/12/22 History Furosemide [Lasix] 40 mg PO BID 12/22/21 04/12/22 History Ipratropium-Albuterol Nebulize 3 ml INHALATION QID PRN 12/22/21 04/12/22 History [Duoneb 0.5 mg-3 mg/3 ml Soln] Pantoprazole Sodium [Protonix] 40 mg PO PC-LUNCH 12/22/21 04/12/22 History Repaglinide [Prandin] 0.5 mg PO AC-SUPPER 12/22/21 04/12/22 History Mupirocin [Mupirocin 2%] 1 applic NASAL BID #1 tub 04/14/22 04/19/22 Rx Allergies Allergy/AdvReac Type Severity Reaction Status Date / Time No Known Allergies Allergy Verified 04/12/22 09:23 Physical Exam Vitals: Vital Signs Temp Pulse Resp BP Pulse Ox FiO2 04/20/22 12:12 80 04/20/22 12:01 80 04/20/22 11:30 60 25 H 98/57 98 04/20/22 11:00 61 26 H 101/59 98 04/20/22 10:30 62 23 108/70 96 04/20/22 10:00 63 24 111/48 97 04/20/22 09:30 66 18 113/60 95 04/20/22 09:00 70 17 138/68 95 04/20/22 08:35 71 04/20/22 08:30 71 24 125/58 99 04/20/22 08:25 71 04/20/22 08:00 72 32 H 126/74 95 04/20/22 07:30 69 37 H 95 04/20/22 06:00 68 27 H 129/87 96 04/20/22 05:55 67 04/20/22 05:44 68 04/20/22 05:30 67 20 127/62 97 04/20/22 05:00 61 22 127/62 93 L 04/20/22 04:30 67 14 128/64 94 L 04/20/22 04:00 99.0 F 66 25 H 124/66 94 L 04/20/22 03:30 68 27 H 122/65 96 04/20/22 03:00 64 25 H 117/64 95 04/20/22 02:30 66 26 H 123/78 96 04/20/22 02:00 66 28 H 124/61 95 04/20/22 01:30 66 26 H 125/59 95 04/20/22 01:00 66 24 116/63 95 04/20/22 00:30 66 26 H 113/56 97 04/20/22 00:00 98.6 F 66 29 H 126/64 95 04/19/22 23:30 67 26 H 118/63 95 04/19/22 23:00 68 27 H 111/62 94 L 04/19/22 22:30 67 27 H 121/67 91 L 04/19/22 22:00 66 27 H 98 04/19/22 21:30 66 19 97 04/19/22 21:00 66 20 95 04/19/22 20:30 66 30 H 94 L 04/19/22 20:15 64 24 98 04/19/22 20:00 99.1 F 64 23 98 50 04/19/22 19:45 64 27 H 99 04/19/22 19:30 63 11 L 98 50 04/19/22 19:20 61 04/19/22 19:15 61 19 98 50 04/19/22 19:10 61 50 04/19/22 19:00 60 0 L 97 04/19/22 18:45 60 0 L 97 04/19/22 18:30 61 18 96 04/19/22 18:15 63 18 97 04/19/22 18:00 64 18 98 04/19/22 17:45 66 18 98 04/19/22 17:30 68 18 97 04/19/22 17:15 66 18 98 04/19/22 17:00 99.3 F 70 14 98 50 04/19/22 16:56 64 17 16:45 64 04/19/22 16:40 62 19 95 04/19/22 16:30 62 10 L 96 04/19/22 16:20 60 14 95 04/19/22 16:10 63 12 96 04/19/22 16:00 63 18 99 50 04/19/22 15:56 50 04/19/22 15:50 66 8 L 98 04/19/22 15:40 44 H 98 04/19/22 15:30 97.9 F 83 14 100 100 04/19/22 15:20 75 14 04/19/22 15:15 20 100 Intake and Output 04/19/22 04/20/22 04/20/22 22:59 06:59 14:59 Intake Total 5592.507 1109.449 613.751 Output Total 975 1239 375 Balance 045.882 7440.449 238.751 Intake: IV 372 721 196 ACETAMINOPHEN IV (For NPO 100 ) 1,000 mg In Empty Bag 1 bag @ 400 mls/hr IVPB Q6HR [facility] Rx#:[id number] Lactated Ringers 1,000 ml 150 400 80 @ 50 mls/hr IV .Q20H [facility] Rx#:[id number] cardiac ooutput 150 81 30 ceFAZolin 2 gm In Sodium 50 50 Chloride 0.9% 50 ml @ 100 mls/hr IVPB Q8HR [facility] Rx# :[id number] pressure bags 72 90 36 Intake, IV Titration 969.075 2.449 17.751 Amount Albumin Human 5% 250 ml @ 750 0 mls/hr IVPB .STK-MED ONE Rx#:[id number] Insulin Regular 100 unit 3.392 2.449 17.751 In Sodium Chloride 0.9% 100 ml @ Per Protocol IV .Q0M [facility] Rx#:[id number] Lactated Ringers 1,000 ml 150 @ 50 mls/hr IV .Q20H [facility] Rx#:[id number] ceFAZolin 2 gm In Sodium 50 Chloride 0.9% 50 ml @ 100 mls/hr IVPB Q8HR [facility] Rx# :[id number] propofoL 1,000 mg In 15.683 Empty Bag 1 bag @ Titrate IV .Q0M [facility] Rx#: [id number] Oral 500 400 Tube Feeding 1200 Output: Chest Tube Drainage 370 434 190 left pleural 100 164 70 mediastinal x2 270 270 120 Urine 605 805 185 Other: Voiding Method Indwelling Catheter Indwelling Catheter Indwelling Catheter Weight 98.4 kg 98.4 kg ABP, PAP, CO, CI - Last 8 Hours Arterial Blood Pressure 96/39 Arterial Blood Pressure 101/41 Arterial Blood Pressure 103/43 Arterial Blood Pressure 106/42 Arterial Blood Pressure 105/41 Arterial Blood Pressure 122/45 Arterial Blood Pressure 140/46 Arterial Blood Pressure 123/47 Arterial Blood Pressure 129/50 Arterial Blood Pressure 123/44 Arterial Blood Pressure 114/42 Arterial Blood Pressure 136/48 Pulmonary Artery Pressure 55/17 Pulmonary Artery Pressure 52/16 Pulmonary Artery Pressure 50/17 Pulmonary Artery Pressure 50/18 Pulmonary Artery Pressure 55/21 Pulmonary Artery Pressure 54/20 Pulmonary Artery Pressure 60/23 Pulmonary Artery Pressure 66/22 Pulmonary Artery Pressure 65/22 Pulmonary Artery Pressure 60/19 Pulmonary Artery Pressure 58/20 Pulmonary Artery Pressure 76/32 Cardiac Output 4.6 Cardiac Output 6.5 Cardiac Output 6.2 Cardiac Index 2.2 Cardiac Index 3.1 Cardiac Index 3 Results CBC & Chem 7: 04/20/22 02:50 04/20/22 05:55 Labs: Abnormal Lab Results - Last 24 Hours (Table) 04/12/22 04/19/22 04/19/22 Range/Units 09:21 08:37 10:14 WBC (3.8-10.6) k/uL RBC (4.30-5.90) m/uL Hgb (13.0-17.5) gm/dL Hct (39.0-53.0) % MCV (80.0-100.0) fL MCHC (31.0-37.0) g/dL RDW (11.5-15.5) % Plt Count (150-450) k/uL Neutrophils # (1.3-7.7) k/uL Lymphocytes # (1.0-4.8) k/uL Monocytes # (0-1.0) k/uL APTT (22.0-30.0) sec ABG pH 7.32 L 7.34 L (7.35-7.45) ABG pCO2 (35-45) mmHg ABG pO2 170 H 243 H (83-108) mmHg ABG Total CO2 25 H (19-24) mmol/L ABG O2 Saturation 100.0 H 100.0 H (94-97) % ABG Hematocrit 24 L 23 L (34.0-46.0) % ABG Potassium 4.7 H 4.7 H (3.4-4.5) mmol/L ABG Glucose 139 H 159 H (75-99) mg/dL ABG Lactic Acid (0.5-1.6) mmol/L Hemoglobin 7.9 L 7.5 L (13.0-17.5) gm/dL Potassium (3.5-5.1) mmol/L Chloride (98-107) mmol/L BUN (9-20) mg/dL Creatinine (0.66-1.25) mg/dL Glucose (74-99) mg/dL POC Glucose (mg/dL) (70-110) mg/dL Calcium (8.4-10.2) mg/dL Magnesium (1.6-2.3) mg/dL AST (17-59) U/L Alkaline Phosphatase (38-126) U/L Total Protein (6.3-8.2) g/dL Albumin (3.5-5.0) g/dL Arterial Blood Potassium 4.7 H 4.7 H (3.4-4.5) mmol/L Arterial Blood Glucose 139 H 159 H (75-99) mg/dL Crossmatch See Detail 04/19/22 04/19/22 04/19/22 Range/Units 10:47 10:56 11:32 WBC (3.8-10.6) k/uL RBC (4.30-5.90) m/uL Hgb (13.0-17.5) gm/dL Hct (39.0-53.0) % MCV (80.0-100.0) fL MCHC (31.0-37.0) g/dL RDW (11.5-15.5) % Plt Count (150-450) k/uL Neutrophils # (1.3-7.7) k/uL Lymphocytes # (1.0-4.8) k/uL Monocytes # (0-1.0) k/uL APTT (22.0-30.0) sec ABG pH 7.18 L* 7.33 L (7.35-7.45) ABG pCO2 58 H (35-45) mmHg ABG pO2 273 H 395 H 258 H (83-108) mmHg ABG Total CO2 (19-24) mmol/L ABG O2 Saturation 100.0 H 100.0 H 100.0 H (94-97) % ABG Hematocrit 23 L 24 L 23 L (34.0-46.0) % ABG Potassium 4.6 H 4.9 H 4.7 H (3.4-4.5) mmol/L ABG Glucose 159 H 165 H 131 H (75-99) mg/dL ABG Lactic Acid (0.5-1.6) mmol/L Hemoglobin 7.4 L 7.9 L 7.6 L (13.0-17.5) gm/dL Potassium (3.5-5.1) mmol/L Chloride (98-107) mmol/L BUN (9-20) mg/dL Creatinine (0.66-1.25) mg/dL Glucose (74-99) mg/dL POC Glucose (mg/dL) (70-110) mg/dL Calcium (8.4-10.2) mg/dL Magnesium (1.6-2.3) mg/dL AST (17-59) U/L Alkaline Phosphatase (38-126) U/L Total Protein (6.3-8.2) g/dL Albumin (3.5-5.0) g/dL Arterial Blood Potassium 4.6 H 4.9 H 4.7 H (3.4-4.5) mmol/L Arterial Blood Glucose 159 H 165 H 131 H (75-99) mg/dL Crossmatch 04/19/22 04/19/22 04/19/22 Range/Units 12:06 12:42 13:07 WBC (3.8-10.6) k/uL RBC (4.30-5.90) m/uL Hgb (13.0-17.5) gm/dL Hct (39.0-53.0) % MCV (80.0-100.0) fL MCHC (31.0-37.0) g/dL RDW (11.5-15.5) % Plt Count (150-450) k/uL Neutrophils # (1.3-7.7) k/uL Lymphocytes # (1.0-4.8) k/uL Monocytes # (0-1.0) k/uL APTT (22.0-30.0) sec ABG pH 7.33 L 7.33 L (7.35-7.45) ABG pCO2 (35-45) mmHg ABG pO2 346 H 356 H 309 H (83-108) mmHg ABG Total CO2 25 H (19-24) mmol/L ABG O2 Saturation 100.0 H 100.0 H 100.0 H (94-97) % ABG Hematocrit 23 L 22 L 24 L (34.0-46.0) % ABG Potassium 4.8 H 5.4 H 5.5 H (3.4-4.5) mmol/L ABG Glucose 125 H 111 H 115 H (75-99) mg/dL ABG Lactic Acid 1.8 H (0.5-1.6) mmol/L Hemoglobin 7.5 L 7.0 L* 7.7 L (13.0-17.5) gm/dL Potassium (3.5-5.1) mmol/L Chloride (98-107) mmol/L BUN (9-20) mg/dL Creatinine (0.66-1.25) mg/dL Glucose (74-99) mg/dL POC Glucose (mg/dL) (70-110) mg/dL Calcium (8.4-10.2) mg/dL Magnesium (1.6-2.3) mg/dL AST (17-59) U/L Alkaline Phosphatase (38-126) U/L Total Protein (6.3-8.2) g/dL Albumin (3.5-5.0) g/dL Arterial Blood Potassium 4.8 H 5.4 H 5.5 H (3.4-4.5) mmol/L Arterial Blood Glucose 125 H 111 H 115 H (75-99) mg/dL Crossmatch 04/19/22 04/19/22 04/19/22 Range/Units 14:09 15:21 15:45 WBC 14.0 H (3.8-10.6) k/uL RBC 2.83 L (4.30-5.90) m/uL Hgb 8.8 L (13.0-17.5) gm/dL Hct 28.3 L (39.0-53.0) % MCV (80.0-100.0) fL MCHC (31.0-37.0) g/dL RDW 16.6 H (11.5-15.5) % Plt Count (150-450) k/uL Neutrophils # 12.0 H (1.3-7.7) k/uL Lymphocytes # 0.6 L (1.0-4.8) k/uL Monocytes # 1.1 H (0-1.0) k/uL APTT (22.0-30.0) sec ABG pH 7.27 L (7.35-7.45) ABG pCO2 50 H (35-45) mmHg ABG pO2 117 H (83-108) mmHg ABG Total CO2 25 H (19-24) mmol/L ABG O2 Saturation 98.7 H (94-97) % ABG Hematocrit 22 L (34.0-46.0) % ABG Potassium 4.8 H (3.4-4.5) mmol/L ABG Glucose 123 H (75-99) mg/dL ABG Lactic Acid 1.7 H (0.5-1.6) mmol/L Hemoglobin 7.2 L (13.0-17.5) gm/dL Potassium (3.5-5.1) mmol/L Chloride (98-107) mmol/L BUN (9-20) mg/dL Creatinine (0.66-1.25) mg/dL Glucose (74-99) mg/dL POC Glucose (mg/dL) 168 H (70-110) mg/dL Calcium (8.4-10.2) mg/dL Magnesium (1.6-2.3) mg/dL AST (17-59) U/L Alkaline Phosphatase (38-126) U/L Total Protein (6.3-8.2) g/dL Albumin (3.5-5.0) g/dL Arterial Blood Potassium 4.8 H (3.4-4.5) mmol/L Arterial Blood Glucose 123 H (75-99) mg/dL Crossmatch 04/19/22 04/19/22 04/19/22 Range/Units 15:45 15:45 15:48 WBC (3.8-10.6) k/uL RBC (4.30-5.90) m/uL Hgb (13.0-17.5) gm/dL Hct (39.0-53.0) % MCV (80.0-100.0) fL MCHC (31.0-37.0) g/dL RDW (11.5-15.5) % Plt Count (150-450) k/uL Neutrophils # (1.3-7.7) k/uL Lymphocytes # (1.0-4.8) k/uL Monocytes # (0-1.0) k/uL APTT 30.9 H (22.0-30.0) sec ABG pH 7.27 L (7.35-7.45) ABG pCO2 53 H (35-45) mmHg ABG pO2 327 H (83-108) mmHg ABG Total CO2 26 H (19-24) mmol/L ABG O2 Saturation 100.0 H (94-97) % ABG Hematocrit (34.0-46.0) % ABG Potassium (3.4-4.5) mmol/L ABG Glucose (75-99) mg/dL ABG Lactic Acid (0.5-1.6) mmol/L Hemoglobin (13.0-17.5) gm/dL Potassium (3.5-5.1) mmol/L Chloride 115 H (98-107) mmol/L BUN 27 H (9-20) mg/dL Creatinine 1.34 H (0.66-1.25) mg/dL Glucose 160 H (74-99) mg/dL POC Glucose (mg/dL) (70-110) mg/dL Calcium 8.3 L (8.4-10.2) mg/dL Magnesium 4.9 H (1.6-2.3) mg/dL AST 92 H (17-59) U/L Alkaline Phosphatase 28 L (38-126) U/L Total Protein 4.8 L (6.3-8.2) g/dL Albumin 3.1 L (3.5-5.0) g/dL Arterial Blood Potassium (3.4-4.5) mmol/L Arterial Blood Glucose (75-99) mg/dL Crossmatch 04/19/22 04/19/22 04/19/22 Range/Units 17:10 17:58 18:00 WBC 10.9 H (3.8-10.6) k/uL RBC 2.59 L (4.30-5.90) m/uL Hgb 8.4 L (13.0-17.5) gm/dL Hct 25.4 L (39.0-53.0) % MCV (80.0-100.0) fL MCHC (31.0-37.0) g/dL RDW 16.1 H (11.5-15.5) % Plt Count (150-450) k/uL Neutrophils # 9.2 H (1.3-7.7) k/uL Lymphocytes # 0.4 L (1.0-4.8) k/uL Monocytes # (0-1.0) k/uL APTT (22.0-30.0) sec ABG pH (7.35-7.45) ABG pCO2 (35-45) mmHg ABG pO2 (83-108) mmHg ABG Total CO2 (19-24) mmol/L ABG O2 Saturation (94-97) % ABG Hematocrit (34.0-46.0) % ABG Potassium (3.4-4.5) mmol/L ABG Glucose (75-99) mg/dL ABG Lactic Acid (0.5-1.6) mmol/L Hemoglobin (13.0-17.5) gm/dL Potassium (3.5-5.1) mmol/L Chloride (98-107) mmol/L BUN (9-20) mg/dL Creatinine (0.66-1.25) mg/dL Glucose (74-99) mg/dL POC Glucose (mg/dL) 136 H 135 H (70-110) mg/dL Calcium (8.4-10.2) mg/dL Magnesium (1.6-2.3) mg/dL AST (17-59) U/L Alkaline Phosphatase (38-126) U/L Total Protein (6.3-8.2) g/dL Albumin (3.5-5.0) g/dL Arterial Blood Potassium (3.4-4.5) mmol/L Arterial Blood Glucose (75-99) mg/dL Crossmatch 04/19/22 04/19/22 04/19/22 Range/Units 18:58 20:00 20:05 WBC (3.8-10.6) k/uL RBC (4.30-5.90) m/uL Hgb (13.0-17.5) gm/dL Hct (39.0-53.0) % MCV (80.0-100.0) fL MCHC (31.0-37.0) g/dL RDW (11.5-15.5) % Plt Count (150-450) k/uL Neutrophils # (1.3-7.7) k/uL Lymphocytes # (1.0-4.8) k/uL Monocytes # (0-1.0) k/uL APTT (22.0-30.0) sec ABG pH (7.35-7.45) ABG pCO2 (35-45) mmHg ABG pO2 162 H (83-108) mmHg ABG Total CO2 25 H (19-24) mmol/L ABG O2 Saturation 99.9 H (94-97) % ABG Hematocrit (34.0-46.0) % ABG Potassium (3.4-4.5) mmol/L ABG Glucose (75-99) mg/dL ABG Lactic Acid (0.5-1.6) mmol/L Hemoglobin (13.0-17.5) gm/dL Potassium (3.5-5.1) mmol/L Chloride (98-107) mmol/L BUN (9-20) mg/dL Creatinine (0.66-1.25) mg/dL Glucose (74-99) mg/dL POC Glucose (mg/dL) 123 H 128 H (70-110) mg/dL Calcium (8.4-10.2) mg/dL Magnesium (1.6-2.3) mg/dL AST (17-59) U/L Alkaline Phosphatase (38-126) U/L Total Protein (6.3-8.2) g/dL Albumin (3.5-5.0) g/dL Arterial Blood Potassium (3.4-4.5) mmol/L Arterial Blood Glucose (75-99) mg/dL Crossmatch 04/19/22 04/19/22 04/19/22 Range/Units 20:09 21:07 21:58 WBC (3.8-10.6) k/uL RBC 2.51 L (4.30-5.90) m/uL Hgb 7.9 L (13.0-17.5) gm/dL Hct 24.9 L (39.0-53.0) % MCV (80.0-100.0) fL MCHC (31.0-37.0) g/dL RDW 16.2 H (11.5-15.5) % Plt Count 138 L (150-450) k/uL Neutrophils # (1.3-7.7) k/uL Lymphocytes # 0.3 L (1.0-4.8) k/uL Monocytes # (0-1.0) k/uL APTT (22.0-30.0) sec ABG pH (7.35-7.45) ABG pCO2 (35-45) mmHg ABG pO2 (83-108) mmHg ABG Total CO2 (19-24) mmol/L ABG O2 Saturation (94-97) % ABG Hematocrit (34.0-46.0) % ABG Potassium (3.4-4.5) mmol/L ABG Glucose (75-99) mg/dL ABG Lactic Acid (0.5-1.6) mmol/L Hemoglobin (13.0-17.5) gm/dL Potassium (3.5-5.1) mmol/L Chloride (98-107) mmol/L BUN (9-20) mg/dL Creatinine (0.66-1.25) mg/dL Glucose (74-99) mg/dL POC Glucose (mg/dL) 125 H 124 H (70-110) mg/dL Calcium (8.4-10.2) mg/dL Magnesium (1.6-2.3) mg/dL AST (17-59) U/L Alkaline Phosphatase (38-126) U/L Total Protein (6.3-8.2) g/dL Albumin (3.5-5.0) g/dL Arterial Blood Potassium (3.4-4.5) mmol/L Arterial Blood Glucose (75-99) mg/dL Crossmatch 04/19/22 04/19/22 04/20/22 Range/Units 22:57 23:58 00:57 WBC (3.8-10.6) k/uL RBC (4.30-5.90) m/uL Hgb (13.0-17.5) gm/dL Hct (39.0-53.0) % MCV (80.0-100.0) fL MCHC (31.0-37.0) g/dL RDW (11.5-15.5) % Plt Count (150-450) k/uL Neutrophils # (1.3-7.7) k/uL Lymphocytes # (1.0-4.8) k/uL Monocytes # (0-1.0) k/uL APTT (22.0-30.0) sec ABG pH (7.35-7.45) ABG pCO2 (35-45) mmHg ABG pO2 (83-108) mmHg ABG Total CO2 (19-24) mmol/L ABG O2 Saturation (94-97) % ABG Hematocrit (34.0-46.0) % ABG Potassium (3.4-4.5) mmol/L ABG Glucose (75-99) mg/dL ABG Lactic Acid (0.5-1.6) mmol/L Hemoglobin (13.0-17.5) gm/dL Potassium (3.5-5.1) mmol/L Chloride (98-107) mmol/L BUN (9-20) mg/dL Creatinine (0.66-1.25) mg/dL Glucose (74-99) mg/dL POC Glucose (mg/dL) 127 H 132 H 118 H (70-110) mg/dL Calcium (8.4-10.2) mg/dL Magnesium (1.6-2.3) mg/dL AST (17-59) U/L Alkaline Phosphatase (38-126) U/L Total Protein (6.3-8.2) g/dL Albumin (3.5-5.0) g/dL Arterial Blood Potassium (3.4-4.5) mmol/L Arterial Blood Glucose (75-99) mg/dL Crossmatch 04/20/22 04/20/22 04/20/22 Range/Units 01:56 02:50 02:50 WBC (3.8-10.6) k/uL RBC 2.53 L (4.30-5.90) m/uL Hgb 7.7 L (13.0-17.5) gm/dL Hct 25.4 L (39.0-53.0) % MCV 100.5 H (80.0-100.0) fL MCHC 30.1 L (31.0-37.0) g/dL RDW 16.5 H (11.5-15.5) % Plt Count 139 L (150-450) k/uL Neutrophils # (1.3-7.7) k/uL Lymphocytes # 0.5 L (1.0-4.8) k/uL Monocytes # (0-1.0) k/uL APTT (22.0-30.0) sec ABG pH (7.35-7.45) ABG pCO2 (35-45) mmHg ABG pO2 (83-108) mmHg ABG Total CO2 (19-24) mmol/L ABG O2 Saturation (94-97) % ABG Hematocrit (34.0-46.0) % ABG Potassium (3.4-4.5) mmol/L ABG Glucose (75-99) mg/dL ABG Lactic Acid (0.5-1.6) mmol/L Hemoglobin (13.0-17.5) gm/dL Potassium 5.8 H (3.5-5.1) mmol/L Chloride 112 H (98-107) mmol/L BUN 32 H (9-20) mg/dL Creatinine 1.68 H (0.66-1.25) mg/dL Glucose 111 H (74-99) mg/dL POC Glucose (mg/dL) 120 H (70-110) mg/dL Calcium 8.1 L (8.4-10.2) mg/dL Magnesium 4.1 H (1.6-2.3) mg/dL AST 130 H (17-59) U/L Alkaline Phosphatase 30 L (38-126) U/L Total Protein 5.0 L (6.3-8.2) g/dL Albumin (3.5-5.0) g/dL Arterial Blood Potassium (3.4-4.5) mmol/L Arterial Blood Glucose (75-99) mg/dL Crossmatch 04/20/22 04/20/22 04/20/22 Range/Units 02:52 03:50 04:48 WBC (3.8-10.6) k/uL RBC (4.30-5.90) m/uL Hgb (13.0-17.5) gm/dL Hct (39.0-53.0) % MCV (80.0-100.0) fL MCHC (31.0-37.0) g/dL RDW (11.5-15.5) % Plt Count (150-450) k/uL Neutrophils # (1.3-7.7) k/uL Lymphocytes # (1.0-4.8) k/uL Monocytes # (0-1.0) k/uL APTT (22.0-30.0) sec ABG pH (7.35-7.45) ABG pCO2 (35-45) mmHg ABG pO2 (83-108) mmHg ABG Total CO2 (19-24) mmol/L ABG O2 Saturation (94-97) % ABG Hematocrit (34.0-46.0) % ABG Potassium (3.4-4.5) mmol/L ABG Glucose (75-99) mg/dL ABG Lactic Acid (0.5-1.6) mmol/L Hemoglobin (13.0-17.5) gm/dL Potassium (3.5-5.1) mmol/L Chloride (98-107) mmol/L BUN (9-20) mg/dL Creatinine (0.66-1.25) mg/dL Glucose (74-99) mg/dL POC Glucose (mg/dL) 119 H 115 H 117 H (70-110) mg/dL Calcium (8.4-10.2) mg/dL Magnesium (1.6-2.3) mg/dL AST (17-59) U/L Alkaline Phosphatase (38-126) U/L Total Protein (6.3-8.2) g/dL Albumin (3.5-5.0) g/dL Arterial Blood Potassium (3.4-4.5) mmol/L Arterial Blood Glucose (75-99) mg/dL Crossmatch 04/20/22 04/20/22 04/20/22 Range/Units 05:53 05:55 06:51 WBC (3.8-10.6) k/uL RBC (4.30-5.90) m/uL Hgb (13.0-17.5) gm/dL Hct (39.0-53.0) % MCV (80.0-100.0) fL MCHC (31.0-37.0) g/dL RDW (11.5-15.5) % Plt Count (150-450) k/uL Neutrophils # (1.3-7.7) k/uL Lymphocytes # (1.0-4.8) k/uL Monocytes # (0-1.0) k/uL APTT (22.0-30.0) sec ABG pH (7.35-7.45) ABG pCO2 (35-45) mmHg ABG pO2 (83-108) mmHg ABG Total CO2 (19-24) mmol/L ABG O2 Saturation (94-97) % ABG Hematocrit (34.0-46.0) % ABG Potassium (3.4-4.5) mmol/L ABG Glucose (75-99) mg/dL ABG Lactic Acid (0.5-1.6) mmol/L Hemoglobin (13.0-17.5) gm/dL Potassium 5.5 H (3.5-5.1) mmol/L Chloride 111 H (98-107) mmol/L BUN 32 H (9-20) mg/dL Creatinine 1.73 H (0.66-1.25) mg/dL Glucose 111 H (74-99) mg/dL POC Glucose (mg/dL) 119 H 115 H (70-110) mg/dL Calcium 8.0 L (8.4-10.2) mg/dL Magnesium 3.6 H (1.6-2.3) mg/dL AST (17-59) U/L Alkaline Phosphatase (38-126) U/L Total Protein (6.3-8.2) g/dL Albumin (3.5-5.0) g/dL Arterial Blood Potassium (3.4-4.5) mmol/L Arterial Blood Glucose (75-99) mg/dL Crossmatch 04/20/22 04/20/22 04/20/22 Range/Units 08:06 08:58 09:55 WBC (3.8-10.6) k/uL RBC (4.30-5.90) m/uL Hgb (13.0-17.5) gm/dL Hct (39.0-53.0) % MCV (80.0-100.0) fL MCHC (31.0-37.0) g/dL RDW (11.5-15.5) % Plt Count (150-450) k/uL Neutrophils # (1.3-7.7) k/uL Lymphocytes # (1.0-4.8) k/uL Monocytes # (0-1.0) k/uL APTT (22.0-30.0) sec ABG pH (7.35-7.45) ABG pCO2 (35-45) mmHg ABG pO2 (83-108) mmHg ABG Total CO2 (19-24) mmol/L ABG O2 Saturation (94-97) % ABG Hematocrit (34.0-46.0) % ABG Potassium (3.4-4.5) mmol/L ABG Glucose (75-99) mg/dL ABG Lactic Acid (0.5-1.6) mmol/L Hemoglobin (13.0-17.5) gm/dL Potassium (3.5-5.1) mmol/L Chloride (98-107) mmol/L BUN (9-20) mg/dL Creatinine (0.66-1.25) mg/dL Glucose (74-99) mg/dL POC Glucose (mg/dL) 303 H 233 H 170 H (70-110) mg/dL Calcium (8.4-10.2) mg/dL Magnesium (1.6-2.3) mg/dL AST (17-59) U/L Alkaline Phosphatase (38-126) U/L Total Protein (6.3-8.2) g/dL Albumin (3.5-5.0) g/dL Arterial Blood Potassium (3.4-4.5) mmol/L Arterial Blood Glucose (75-99) mg/dL Crossmatch 04/20/22 04/20/22 Range/Units 11:02 12:19 WBC (3.8-10.6) k/uL RBC (4.30-5.90) m/uL Hgb (13.0-17.5) gm/dL Hct (39.0-53.0) % MCV (80.0-100.0) fL MCHC (31.0-37.0) g/dL RDW (11.5-15.5) % Plt Count (150-450) k/uL Neutrophils # (1.3-7.7) k/uL Lymphocytes # (1.0-4.8) k/uL Monocytes # (0-1.0) k/uL APTT (22.0-30.0) sec ABG pH (7.35-7.45) ABG pCO2 (35-45) mmHg ABG pO2 (83-108) mmHg ABG Total CO2 (19-24) mmol/L ABG O2 Saturation (94-97) % ABG Hematocrit (34.0-46.0) % ABG Potassium (3.4-4.5) mmol/L ABG Glucose (75-99) mg/dL ABG Lactic Acid (0.5-1.6) mmol/L Hemoglobin (13.0-17.5) gm/dL Potassium (3.5-5.1) mmol/L Chloride (98-107) mmol/L BUN (9-20) mg/dL Creatinine (0.66-1.25) mg/dL Glucose (74-99) mg/dL POC Glucose (mg/dL) 125 H 126 H (70-110) mg/dL Calcium (8.4-10.2) mg/dL Magnesium (1.6-2.3) mg/dL AST (17-59) U/L Alkaline Phosphatase (38-126) U/L Total Protein (6.3-8.2) g/dL Albumin (3.5-5.0) g/dL Arterial Blood Potassium (3.4-4.5) mmol/L Arterial Blood Glucose (75-99) mg/dL Crossmatch Microbiology - Last 24 Hours (Table) 04/19/22 19:45 Gram Stain - Preliminary Sputum Sputum Culture - Preliminary
[2022-04-20 13:57] LABS: Glucose,Whole Blood 234 mg/dL (70-110)
[2022-04-20] MEDS: DEXTROSE/WATER 1 250ML.BAG with DOPamine DRIP 800 MG IV SCH (16:21)
[2022-04-20 17:21] LABS: Glucose,Whole Blood 197 mg/dL (70-110)
[2022-04-20] MEDS: INSULIN ASPART (NovoLOG) 100 UNIT/ML VIAL SQ SCH ×2 (18:13→21:18)
[2022-04-20] MEDS: LACTATED RINGERS 1,000 ML IV SCH (18:15)
[2022-04-20] MEDS: FUROSEMIDE 100 MG in SODIUM CHLORIDE 0.9% 90 ML IV SCH (20:29)
[2022-04-20] MEDS: SENNOSIDES-DOCUSATE SODIUM 1 EACH TAB PO SCH (21:15)
[2022-04-20] MEDS: ATORVASTATIN 80 MG TAB PO SCH (21:15)
[2022-04-20] MEDS: AMIODARONE 200 MG TAB PO SCH (21:16)
[2022-04-20] MEDS: FENOFIBRATE 160 MG TAB PO SCH (21:18)
[2022-04-20 23:36] LABS: Albumin 3.8 g/dL (3.5-5.0); Calcium 7.7 mg/dL (8.4-10.2); Potassium 5.7 mmol/L (3.5-5.1); Total Bilirubin 0.5 mg/dL (0.2-1.3); Total Protein 5.5 g/dL (6.3-8.2)
[2022-04-21 04:24] LABS: Basophils % (A) 0 %; Eosinophils % (A) 0 %; HCT 23.4 % (39.0-53.0); HGB 7.3 gm/dL (13.0-17.5); Hypochromasia Marked; Lymphocytes # (A) 0.5 k/uL (1.0-4.8); Lymphocytes % (A) 5 %; MCH 31.3 pg (25.0-35.0); MCHC 31.4 g/dL (31.0-37.0); MCV 99.7 fL (80.0-100.0); Macrocytosis Slight; Mean Platelet Volume 10.2; Monocytes # (A) 1.1 k/uL (0-1.0); Monocytes % (A) 11 %; Neutrophils # (A) 7.7 k/uL (1.3-7.7); Neutrophils % (A) 81 %; Platelet Count 144 k/uL (150-450); Poikilocytosis Slight; RBC 2.35 m/uL (4.30-5.90); RDW 15.4 % (11.5-15.5); WBC 9.6 k/uL (3.8-10.6)
[2022-04-21 04:31] LABS: Ionized Calcium 4.5 mg/dL (4.5-5.3)
[2022-04-21 04:38] LABS: Albumin 3.6 g/dL (3.5-5.0); Calcium 7.6 mg/dL (8.4-10.2); Total Bilirubin 0.6 mg/dL (0.2-1.3); Total Protein 5.3 g/dL (6.3-8.2)
[2022-04-21 05:03] LABS: Potassium 6.1 mmol/L (3.5-5.1)
[2022-04-21] MEDS ORDERED: DEXTROSE 50% SYRINGE 50 ML IVP STA ×2 (05:16→18:14)
[2022-04-21] MEDS ORDERED: INSULIN REGULAR 100 UNIT/ML VIAL (IV) IV ONE ×2 (05:16→18:30)
[2022-04-21 05:40] LABS: Glucose,Whole Blood 341 mg/dL (70-110)
[2022-04-21] MEDS: INSULIN ASPART (NovoLOG) 100 UNIT/ML VIAL SQ SCH (06:15)
[2022-04-21 07:02] LABS: Glucose,Whole Blood 176 mg/dL (70-110)
[2022-04-21] MEDS: INSULIN REGULAR 100 UNIT in SODIUM CHLORIDE 0.9% 100 ML IV SCH (07:05)
--- NOTE | 2022-04-21 07:47 | XR ---
EXAMINATION TYPE: XR chest 1V portable DATE OF EXAM: 04/21/2022 Comparison: 04/20/2022 Clinical History: 72-year-old male Post Operative Cardiac Surgery Findings: Right IJ [place] catheter is present. The tip is not clearly seen beyond the low right atrium. Medi astinal drain. Left-sided chest tube. No appreciable pneumothorax. Median sternotomy wires. Heart mil dly enlarged. Interstitial prominence. An annuloplasty ring. Increasing patchy bibasilar opacities. H eart remains enlarged. Suture anchors right humeral head from prior cuff repair. Impression: 1. Right IJ [place] catheter tip is obscured. Not clearly seen beyond the lower right atrium. 2. Similar cardiomegaly and ongoing mild pulmonary vascular congestion. 3. Increasing patchy bibasilar opacities, either atelectasis or patchy pulmonary edema.
[2022-04-21] MEDS: IPRATROPIUM-ALBUTEROL 3 ML NEB INHALATION SCH ×4 (07:52→20:55)
[2022-04-21] MEDS: SYMBICORT 80-4.5 MCG INHALER INHALATION SCH (07:52)
[2022-04-21] MEDS: HEPARIN SODIUM,PORCINE/PF 5,000 UNIT/0.5 ML SYRINGE SQ SCH ×2 (08:15→16:12)
[2022-04-21] MEDS: METOPROLOL TARTRATE 12.5 MG TAB PO SCH ×2 (08:15→20:08)
[2022-04-21] MEDS: HYDROcodone/APAP 5-325MG 1 EACH TAB PO PRN ×2 (08:16→16:08)
[2022-04-21] MEDS: ASPIRIN 325 MG TAB PO SCH (08:16)
--- NOTE | 2022-04-21 08:16 | P.PN ---
Subjective Progress Note Date: 04/21/22 Principal diagnosis: Severe mitral valve regurgitation, coronary artery disease, paroxysmal atrial fibrillation, patent foramen ovale, tricuspid regurgitation, chronic systolic congestive heart failure. Previous medical history of hypertension, hyperlipidemia, coronary artery disease with history of previous PCI, non-ST elevated myocardial infarction in November 2021, ischemic cardiomyopathy with EF 40- 45%, right internal carotid stenosis 50-79%, renal insufficiency, anemia with history of GI bleed in November 2021 S/P transfusion PRBCs, diabetes mellitus type 2, osteoarthritis, severe COPD, chronic ongoing nicotine dependence, remote history of pneumonia, chronic low back pain and hearing disorder. Nasal swab positive for MSSA preoperative POD #2 Mitral valve repair with 28 mm physio-2 ring, CABG 3 with saphenous vein grafts to first diagonal, obtuse marginal, posterior descending coronary arteries, closure of PFO, endovascular vein harvest, modified Castanon maze procedure with full left-sided lesion set and ligation of the left atrial appendage, SCOTT by anesthesia. Postoperative acute blood loss anemia, expected given his history of anemia, hemodilution and cardiopulmonary bypass The patient was seen and examined this morning sitting up in a recliner in the intensive care unit in no acute distress. Remains AV paced at 80 bpm, underlying rhythm sinus in the mid 60s, blood pressure soft, currently on IV dopamine. Remains on 4 L nasal cannula. States pain is controlled on current medication regimen, complains of mild shortness of breath, oxygen saturation 98- 100% on 4 L nasal cannula. Patient had minimal urine output yesterday and was started on continuous IV Lasix. Labs and chest x-ray reviewed, potassium 6.1 this morning, received insulin and dextrose which brought potassium down to 5.4. Right internal jugular [place], right radial arterial line, mediastinal/left pleural chest tubes all remain. Objective - Vital Signs Vital signs: Vital Signs Temp 99.1 F 04/21/22 04:00 Pulse 79 04/21/22 06:00 Resp 22 04/21/22 06:00 BP 92/60 04/21/22 06:00 Pulse Ox 100 04/21/22 06:00 FiO2 40 04/21/22 03:00 Intake & Output 04/20/22 04/21/22 04/21/22 18:59 06:59 18:59 Intake Total 1561.751 587 0 Output Total 561 572 Balance 1000.751 15 0 Weight 98.4 kg 96.7 kg Intake: IV 439 527 Lactated Ringers 1,000 ml 220 260 @ 20 mls/hr IV .Q24H ZULMA Rx#:[id number] cardiac ooutput 70 150 ceFAZolin 2 gm In Sodium 50 Chloride 0.9% 50 ml @ 100 mls/hr IVPB Q8HR ZULMA Rx# :[id number] pressure bags 99 117 Intake, IV Titration 22.751 60 0 Amount Furosemide 100 mg In 60 Sodium Chloride 0.9% 90 ml @ 5 MG/HR 5 mls/hr IV .Q20H ZULMA Rx#:[id number] Insulin Regular 100 unit 22.751 0 In Sodium Chloride 0.9% 100 ml @ Per Protocol IV .Q0M ZULMA Rx#:[id number] Oral 1100 Output: Chest Tube Drainage 330 170 left pleural 170 110 mediastinal x2 160 60 Urine 231 402 Other: Voiding Method Indwelling Catheter Indwelling Catheter ABP, PAP, CO, CI - Last Documented Arterial Blood Pressure 94/39 Pulmonary Artery Pressure 55/23 Cardiac Output 5.0 Cardiac Index 2.4 - Exam CONSTITUTIONAL: Appears somewhat comfortable, cooperative RESPIRATORY: Lungs sounds diminished and of course bilaterally. Respirations even, nonlabored. Currently on 4 L nasal cannula with oxygen saturation 98- 100%. Able to achieve 750 mL on incentive spirometry. Strong cough. CARDIOVASCULAR: S1, S2 present. Regular rate and rhythm, AV paced at 80 bpm, underlying rhythm sinus rhythm in the mid 60s on telemetry. Sternum stable. Palpable peripheral pulses bilaterally. Generalized edema present. No calf pain or tenderness noted. Heart hugger in place. Antiembolism stockings, SCDs present. GASTROINTESTINAL: Abdomen soft, nontender, nondistended. Tympanic to percussion. Hypoactive bowel sounds present 4 quadrants. Tolerating minimal clear liquids. Positive belching, denies flatus GENITOURINARY: Mooney present draining clear, yellow urine. Output overnight 30-50 mL per hour, 628 mL in the last 24 hours INTEGUMENTARY: Skin is warm and dry with evidence of good perfusion. Anterior chest incision well approximated and covered with dry intact dressing. Bilateral EVH site well approximated without redness or drainage. NEUROLOGIC: Cranial nerves II through XII intact MUSKULOSKELETAL: Able to move all extremities, strength equal bilaterally PSYCHIATRIC: Alert and oriented to person place and time, appropriate affect, intact judgment and insight INVASIVE LINES AND TUBES: Mediastinal/left pleural chest tubes present and connected to wall suction, no air leaks present. Mediastinal tube with 30 mL serosanguineous drainage overnight, 300 mL in the last 24 hours. Left pleural chest tube with 50 mL serosanguineous drainage overnight, 350 mL in the last 24 hours. A/V epicardial pacemaker wires present, connected to generator, DDD mode with rate 80 bpm. Right internal jugular [place], right radial arterial line present. Last CO/CI 5.0/2.4, PA 51/21, CVP 12. - Allied health notes Allied health notes reviewed: nursing - Labs CBC & Chem 7: 04/21/22 03:34 04/21/22 06:30 Labs: Abnormal Lab Results - Last 24 Hours (Table) 04/12/22 04/20/22 04/20/22 Range/Units 09:21 08:06 08:58 RBC (4.30-5.90) m/uL Hgb (13.0-17.5) gm/dL Hct (39.0-53.0) % Plt Count (150-450) k/uL Lymphocytes # (1.0-4.8) k/uL Monocytes # (0-1.0) k/uL Sodium (137-145) mmol/L Potassium (3.5-5.1) mmol/L Carbon Dioxide (22-30) mmol/L BUN (9-20) mg/dL Creatinine (0.66-1.25) mg/dL Glucose (74-99) mg/dL POC Glucose (mg/dL) 303 H 233 H (70-110) mg/dL Calcium (8.4-10.2) mg/dL Magnesium (1.6-2.3) mg/dL AST (17-59) U/L ALT (4-49) U/L Alkaline Phosphatase (38-126) U/L Total Protein (6.3-8.2) g/dL Crossmatch See Detail 04/20/22 04/20/22 04/20/22 Range/Units 09:55 11:02 12:19 RBC (4.30-5.90) m/uL Hgb (13.0-17.5) gm/dL Hct (39.0-53.0) % Plt Count (150-450) k/uL Lymphocytes # (1.0-4.8) k/uL Monocytes # (0-1.0) k/uL Sodium (137-145) mmol/L Potassium (3.5-5.1) mmol/L Carbon Dioxide (22-30) mmol/L BUN (9-20) mg/dL Creatinine (0.66-1.25) mg/dL Glucose (74-99) mg/dL POC Glucose (mg/dL) 170 H 125 H 126 H (70-110) mg/dL Calcium (8.4-10.2) mg/dL Magnesium (1.6-2.3) mg/dL AST (17-59) U/L ALT (4-49) U/L Alkaline Phosphatase (38-126) U/L Total Protein (6.3-8.2) g/dL Crossmatch 04/20/22 04/20/22 04/20/22 Range/Units 13:56 17:19 23:04 RBC (4.30-5.90) m/uL Hgb (13.0-17.5) gm/dL Hct (39.0-53.0) % Plt Count (150-450) k/uL Lymphocytes # (1.0-4.8) k/uL Monocytes # (0-1.0) k/uL Sodium 134 L (137-145) mmol/L Potassium 5.7 H (3.5-5.1) mmol/L Carbon Dioxide (22-30) mmol/L BUN 39 H (9-20) mg/dL Creatinine 2.21 H (0.66-1.25) mg/dL Glucose 169 H (74-99) mg/dL POC Glucose (mg/dL) 234 H 197 H (70-110) mg/dL Calcium 7.7 L (8.4-10.2) mg/dL Magnesium (1.6-2.3) mg/dL AST 1828 H (17-59) U/L ALT 646 H (4-49) U/L Alkaline Phosphatase 28 L (38-126) U/L Total Protein 5.5 L (6.3-8.2) g/dL Crossmatch 04/21/22 04/21/22 04/21/22 Range/Units 03:34 03:34 03:34 RBC 2.35 L (4.30-5.90) m/uL Hgb 7.3 L (13.0-17.5) gm/dL Hct 23.4 L (39.0-53.0) % Plt Count 144 L (150-450) k/uL Lymphocytes # 0.5 L (1.0-4.8) k/uL Monocytes # 1.1 H (0-1.0) k/uL Sodium 132 L (137-145) mmol/L Potassium 6.1 H* (3.5-5.1) mmol/L Carbon Dioxide 21 L (22-30) mmol/L BUN 41 H (9-20) mg/dL Creatinine 2.53 H (0.66-1.25) mg/dL Glucose 175 H (74-99) mg/dL POC Glucose (mg/dL) (70-110) mg/dL Calcium 7.6 L (8.4-10.2) mg/dL Magnesium 3.6 H (1.6-2.3) mg/dL AST 1309 H (17-59) U/L ALT 547 H (4-49) U/L Alkaline Phosphatase 31 L (38-126) U/L Total Protein 5.3 L (6.3-8.2) g/dL Crossmatch 04/21/22 04/21/22 04/21/22 Range/Units 05:39 06:30 07:00 RBC (4.30-5.90) m/uL Hgb (13.0-17.5) gm/dL Hct (39.0-53.0) % Plt Count (150-450) k/uL Lymphocytes # (1.0-4.8) k/uL Monocytes # (0-1.0) k/uL Sodium (137-145) mmol/L Potassium 5.4 H (3.5-5.1) mmol/L Carbon Dioxide (22-30) mmol/L BUN (9-20) mg/dL Creatinine (0.66-1.25) mg/dL Glucose (74-99) mg/dL POC Glucose (mg/dL) 341 H 176 H (70-110) mg/dL Calcium (8.4-10.2) mg/dL Magnesium (1.6-2.3) mg/dL AST (17-59) U/L ALT (4-49) U/L Alkaline Phosphatase (38-126) U/L Total Protein (6.3-8.2) g/dL Crossmatch Microbiology - Last 24 Hours (Table) 04/19/22 19:45 Gram Stain - Preliminary Sputum Sputum Culture - Preliminary - Imaging and Cardiology Chest x-ray: report reviewed, image reviewed Assessment and Plan Assessment: 1. Severe mitral valve regurgitation, status post mitral valve repair 2. Coronary artery disease, previous PCI, previous non-STEMI, status post CABG 3 3. History of paroxysmal atrial fibrillation, previous cardioversion, on Eliquis outpatient for anticoagulation, status post modified Castanon maze and ligation of left atrial appendage 4. Patent foramen ovale, status post closure 5. Tricuspid regurgitation 6. Chronic systolic congestive heart failure, ischemic cardiomyopathy with EF 40-45% 7. History of hypertension 8. History hyperlipidemia, treated, cholesterol 150, LDL 72 9. Right internal carotid stenosis 50-79% 10. Anemia with history of GI bleed in November 2021 S/P transfusion PRBCs 11. Acute on chronic renal insufficiency, baseline creatinine 1.28-1.6 12. Diabetes mellitus type 2, preoperative hemoglobin A1c 5.6% 13. Osteoarthritis 14. Severe COPD, preoperative FEV1 41% of predicted 15. Chronic ongoing nicotine dependence 16. Remote history of pneumonia 17. Chronic low back pain, hearing disorder 18. Nasal swab positive for MSSA preoperative 19. Postoperative acute blood loss anemia, expected 20. Elevated transaminases Plan: 1. Continue aspirin, Plavix, and beta siomara therapy. Hold parameters placed on BB. Statin on hold due to elevated LFT 2. Discontinue amiodarone due to elevated LFTs. No anticoagulation until after all lines and tubes have been discontinued, likely will discharge home on Eliquis 3. Continue dopamine, IV Lasix 4. Wean O2 as tolerated. Encourage incentive spirometry 10 times every hour while awake. Bronchodilators, BiPAP per pulmonology 5. Increase activity, ambulate as tolerated. PT/OT/cardiac rehab consulted. 6. Will monitor daily labs and chest x-rays. Electronic replacement per protocol. 7. GI/DVT prophylaxis. 8. Insulin management per primary care service. Patient is a diabetic with a preoperative hemoglobin A1c of 5.6% on multiple oral medications, needs tight blood sugar control, placed back on insulin drip due to blood sugars greater than 200 9. Pain control with current medication regimen. 10. Continue [place], arterial line 11. Continue mediastinal/left pleural chest tubes for another 24 hours 12. Continue Mooney catheter for another 24 hours for strict accurate intake and output. 13. Daily weights. 14. Smoking cessation counseling and education provided to patient and family 15. More recommendations to follow based on patient's clinical course.
[2022-04-21] MEDS: CLOPIDOGREL 75 MG TAB PO SCH (08:17)
[2022-04-21] MEDS: FERROUS SULFATE 325 MG TAB PO SCH ×2 (08:17→20:23)
[2022-04-21] MEDS: MUPIROCIN 2% OINT 22 GM TUBE NASAL SCH ×2 (08:17→20:24)
[2022-04-21] MEDS: ASCORBIC ACID 500 MG TAB PO SCH (08:17)
[2022-04-21] MEDS: AMIODARONE 200 MG TAB PO SCH (08:17)
[2022-04-21] MEDS: LACTATED RINGERS 1,000 ML IV SCH (08:27)
[2022-04-21 09:07] LABS: Glucose,Whole Blood 149 mg/dL (70-110)
[2022-04-21 10:30] LABS: Glucose,Whole Blood 138 mg/dL (70-110)
[2022-04-21 11:19] LABS: Glucose,Whole Blood 118 mg/dL (70-110)
[2022-04-21] MEDS: FUROSEMIDE 100 MG in SODIUM CHLORIDE 0.9% 90 ML IV SCH ×3 (12:14→22:03)
[2022-04-21 12:17] LABS: Glucose,Whole Blood 145 mg/dL (70-110)
--- NOTE | 2022-04-21 12:43 | P.PN ---
Subjective Progress Note Date: 04/21/22 This is a pleasant 72-year-old male patient with a known history of osteoarthritis was multiple orthopedic surgeries, diabetes mellitus, hyperlipidemia, chronic tobacco dependence, paroxysmal atrial fibrillation. He was recently found to have coronary artery disease with a total occlusion of the RCA with collateral circulation, obtuse marginal with 99% stenosis and mild LAD disease. His ejection fraction is 45%. He was also found to have severe mitral regurgitation, moderate central tricuspid regurgitation as well as evidence of a PFO with [id number] shunt. He was recommended coronary artery bypass grafting and valvular repair. He was brought in to the hospital yesterday 04/20/2022 for an elective procedure. He did undergo mitral valve repair, coronary bypass grafting 3 with an SVG to the first diagonal, obtuse marginal and posterior descending coronary arteries, closure of a PFO, modified Castanon-Maze procedure and litigation of the left atrial appendage. He was successfully extubated within the 6 hour protocol. He is seen today in consultation in the intensive care unit. He is ready sitting up in a chair. Awake and alert in no acute distress. He is maintaining O2 saturation in the 90s on 3 L/m per nasal cannula. He has insulin drip at 5 units per hour. Lactated Ringer's at 20 miles per hour. He initially was on epinephrine drip that has been discontinued. He did receive 2 units of packed red blood cells, 2 units of fresh frozen plasma and 1 unit of platelets. White count 8.9. Hemoglobin 7.7. Platelets 139,000. Sodium 142. Potassium 5.5. Chloride 111. Bicarb 23. BUN 32. Creatinine 1.73. Glucose 125. AST 1:30. ALT 37. Magnesium 3.6. Mean arterial blood pressure in the 70s. PA pressures 50/18. CVP 12. Cardiac output 6.5. Cardiac index 3.1. He is on bronchodilators. Working well with the incentive spirometer. Chest x-ray reveals scattered opacities bilaterally. No evidence of pleural effusion, focal consolidation or pneumothorax. Medias tinal 2, left pleural chest tube in place. He is continued on oral amiodarone. Heparin for DVT prophylaxis. The patient is seen today in 04/21/2022 in follow-up in the intensive care unit. He is currently sitting up in a recliner at the bedside. Maintaining O2 saturations on 5 L/m per nasal cannula. He did require BiPAP support last evening and was placed on 14/10 and 100% FiO2 eventually decreased to 40%. He is currently on a Lasix drip at 5 mg per hour. Dopamine drip at 2 mcg/kg/m. Ca rdiac output 4.6. Cardiac index 2.2. He is dual pacing. He has normal saline at 20 ML's per hour. He is unemployed about 750 MLS on the incentive spirometer. His x-ray continues to show cardiomegaly with ongoing mild pulmonary vascular congestion. Increasing patchy bibasilar opacities/atelecta sis. Right IJ [place]-Varghese catheter remains in place. He is sternal and left sided chest tubes remain in place. No pneumothorax. White count 9.6. Hemoglobin 7.3. Platelets 144. Sodium 132. Potassium 5.4. Bicarb 21. BUN 41. Creatinine 2.53. Glucose 175. AST 1309. ALT 547. Albumin 3.6. The patient does have a cyst the year smoking history. He remains on DuoNeb inhalations 4 times a day and when necessary. Heparin for DVT prophylaxis. Objective - Vital Signs Vital signs: Vital Signs Temp 99.1 F 04/21/22 04:00 Pulse 80 04/21/22 11:43 Resp 25 H 04/21/22 11:00 BP 100/56 04/21/22 11:00 Pulse Ox 96 04/21/22 11:36 FiO2 40 04/21/22 09:00 Intake & Output 04/20/22 04/21/22 04/21/22 18:59 06:59 18:59 Intake Total 1561.751 587 249.071 Output Total 561 572 100 Balance 1000.751 15 149.071 Weight 98.4 kg 96.7 kg Intake: IV 439 527 136 Lactated Ringers 1,000 ml 220 260 @ 20 mls/hr IV .Q24H ZULMA Rx#:[id number] NS 80 cardiac ooutput 70 150 20 ceFAZolin 2 gm In Sodium 50 Chloride 0.9% 50 ml @ 100 mls/hr IVPB Q8HR ZULMA Rx# :[id number] pressure bags 99 117 36 Intake, IV Titration 22.751 60 113.071 Amount Dextrose/Water 1 250ml. 8 bag @ 2 MCG/KG/MIN 3.69 mls/hr IV .Q24H ZULMA with DOPamine DRIP 800 mg Rx#: [id number] Furosemide 100 mg In 60 98.75 Sodium Chloride 0.9% 90 ml @ 5 MG/HR 5 mls/hr IV .Q20H ZULMA Rx#:[id number] Insulin Regular 100 unit 22.751 6.321 In Sodium Chloride 0.9% 100 ml @ Per Protocol IV .Q0M ZULMA Rx#:[id number] Oral 1100 Output: Chest Tube Drainage 330 170 40 left pleural 170 110 40 mediastinal x2 160 60 0 Urine 231 402 60 Other: Voiding Method Indwelling Catheter Indwelling Catheter Indwelling Catheter ABP, PAP, CO, CI - Last Documented Arterial Blood Pressure 89/46 Pulmonary Artery Pressure 55/26 Cardiac Output 4.6 Cardiac Index 2.2 - Exam GENERAL EXAM: Alert, pale, pleasant 72-year-old male,on 5 L nasal cannula, up in a chair at the bedside, fairly comfortable in no apparent distress. HEAD: Normocephalic. EYES: Normal reaction of pupils, equal size. NOSE: Clear with pink turbinates. THROAT: No erythema or exudates. NECK: Right IJ [place]Varghese catheter in place. No masses, no JVD. CHEST: Surgical dressing dry and intact. Heart Hugger in place. Mediastinal 2, left pleural chest tubes in place LUNGS: Equal air entry with end expiratory wheeze, basilar crackles. CVS: S1 and S2 normal with no audible murmur, regular rhythm. ABDOMEN: No hepatosplenomegaly, normal bowel sounds, no guarding or rigidity. SPINE: No scoliosis or deformity SKIN: No rashes CENTRAL NERVOUS SYSTEM: No focal deficits, tone is normal in all 4 extremities. EXTREMITIES: Arterial line secured in place. There is no peripheral edema. No clubbing, no cyanosis. Peripheral pulses are intact. - Labs CBC & Chem 7: 04/21/22 03:34 04/21/22 06:30 Labs: Abnormal Lab Results - Last 24 Hours (Table) 04/12/22 04/20/22 04/20/22 Range/Units 09:21 13:56 17:19 RBC (4.30-5.90) m/uL Hgb (13.0-17.5) gm/dL Hct (39.0-53.0) % Plt Count (150-450) k/uL Lymphocytes # (1.0-4.8) k/uL Monocytes # (0-1.0) k/uL Sodium (137-145) mmol/L Potassium (3.5-5.1) mmol/L Carbon Dioxide (22-30) mmol/L BUN (9-20) mg/dL Creatinine (0.66-1.25) mg/dL Glucose (74-99) mg/dL POC Glucose (mg/dL) 234 H 197 H (70-110) mg/dL Calcium (8.4-10.2) mg/dL Magnesium (1.6-2.3) mg/dL AST (17-59) U/L ALT (4-49) U/L Alkaline Phosphatase (38-126) U/L Total Protein (6.3-8.2) g/dL Crossmatch See Detail 04/20/22 04/21/22 04/21/22 Range/Units 23:04 03:34 03:34 RBC 2.35 L (4.30-5.90) m/uL Hgb 7.3 L (13.0-17.5) gm/dL Hct 23.4 L (39.0-53.0) % Plt Count 144 L (150-450) k/uL Lymphocytes # 0.5 L (1.0-4.8) k/uL Monocytes # 1.1 H (0-1.0) k/uL Sodium 134 L 132 L (137-145) mmol/L Potassium 5.7 H 6.1 H* (3.5-5.1) mmol/L Carbon Dioxide 21 L (22-30) mmol/L BUN 39 H 41 H (9-20) mg/dL Creatinine 2.21 H 2.53 H (0.66-1.25) mg/dL Glucose 169 H 175 H (74-99) mg/dL POC Glucose (mg/dL) (70-110) mg/dL Calcium 7.7 L 7.6 L (8.4-10.2) mg/dL Magnesium (1.6-2.3) mg/dL AST 1828 H 1309 H (17-59) U/L ALT 646 H 547 H (4-49) U/L Alkaline Phosphatase 28 L 31 L (38-126) U/L Total Protein 5.5 L 5.3 L (6.3-8.2) g/dL Crossmatch 04/21/22 04/21/22 04/21/22 Range/Units 03:34 05:39 06:30 RBC (4.30-5.90) m/uL Hgb (13.0-17.5) gm/dL Hct (39.0-53.0) % Plt Count (150-450) k/uL Lymphocytes # (1.0-4.8) k/uL Monocytes # (0-1.0) k/uL Sodium (137-145) mmol/L Potassium 5.4 H (3.5-5.1) mmol/L Carbon Dioxide (22-30) mmol/L BUN (9-20) mg/dL Creatinine (0.66-1.25) mg/dL Glucose (74-99) mg/dL POC Glucose (mg/dL) 341 H (70-110) mg/dL Calcium (8.4-10.2) mg/dL Magnesium 3.6 H (1.6-2.3) mg/dL AST (17-59) U/L ALT (4-49) U/L Alkaline Phosphatase (38-126) U/L Total Protein (6.3-8.2) g/dL Crossmatch 04/21/22 04/21/22 04/21/22 Range/Units 07:00 09:05 10:27 RBC (4.30-5.90) m/uL Hgb (13.0-17.5) gm/dL Hct (39.0-53.0) % Plt Count (150-450) k/uL Lymphocytes # (1.0-4.8) k/uL Monocytes # (0-1.0) k/uL Sodium (137-145) mmol/L Potassium (3.5-5.1) mmol/L Carbon Dioxide (22-30) mmol/L BUN (9-20) mg/dL Creatinine (0.66-1.25) mg/dL Glucose (74-99) mg/dL POC Glucose (mg/dL) 176 H 149 H 138 H (70-110) mg/dL Calcium (8.4-10.2) mg/dL Magnesium (1.6-2.3) mg/dL AST (17-59) U/L ALT (4-49) U/L Alkaline Phosphatase (38-126) U/L Total Protein (6.3-8.2) g/dL Crossmatch 04/21/22 04/21/22 Range/Units 11:17 12:12 RBC (4.30-5.90) m/uL Hgb (13.0-17.5) gm/dL Hct (39.0-53.0) % Plt Count (150-450) k/uL Lymphocytes # (1.0-4.8) k/uL Monocytes # (0-1.0) k/uL Sodium (137-145) mmol/L Potassium (3.5-5.1) mmol/L Carbon Dioxide (22-30) mmol/L BUN (9-20) mg/dL Creatinine (0.66-1.25) mg/dL Glucose (74-99) mg/dL POC Glucose (mg/dL) 118 H 145 H (70-110) mg/dL Calcium (8.4-10.2) mg/dL Magnesium (1.6-2.3) mg/dL AST (17-59) U/L ALT (4-49) U/L Alkaline Phosphatase (38-126) U/L Total Protein (6.3-8.2) g/dL Crossmatch Microbiology - Last 24 Hours (Table) 04/19/22 19:45 Gram Stain - Preliminary Sputum Sputum Culture - Preliminary Assessment and Plan Assessment: Coronary artery disease with valvular heart disease. Status post mitral valve repair, coronary bypass grafting 3 with an SVG to the first diagonal, obtuse marginal and posterior descending coronary arteries, closure of a PFO, modified Castanon-Maze procedure and litigation of the left atrial appendage. Postoperative day #2. Acute hypoxemic respiratory failure secondary to above, expected outcome of surgery, currently on 5 L nasal cannula and the patient did require BiPAP the evening of 04/20/2022 Paroxysmal atrial fibrillation Chronic and ongoing tobacco dependence Chronic obstructive pulmonary disease, FEV1 value of 52% of predicted, maintained on Trelegy and DuoNeb inhalations in the outpatient setting Acute on chronic anemia, status post 2 units packed red blood cells is in remission. Current hemoglobin 7.3 Osteoarthritis at multiple orthopedic surgeries Diabetes mellitus Hyperlipidemia Plan: The patient was seen and evaluated Chest x-ray, labs and medications reviewed Requiring a Lasix drip and dopamine support Did require BiPAP support last night, currently on 5 L Encouraged increased use of the incentive spirometer Educated regarding the importance of complete smoking cessation Continue DuoNeb inhalations, Symbicort Heparin for DVT prophylaxis Titrate down the FiO2 as tolerated Increase his activity as tolerated We will continue to follow I have personally seen and examined the patient, performed the documentation and the assessment and plan as written. Number of minutes spent on the visit: 10.
[2022-04-21 13:37] LABS: Glucose,Whole Blood 130 mg/dL (70-110)
--- NOTE | 2022-04-21 14:06 | P.PN ---
Subjective Progress Note Date: 04/21/22 Patient is a pleasant 72-year-old male came in the for elective mitral valve repair, CABG x 3 vessel, maze procedure, PFO closure. Patient is extubated sitting in the chair patient still has a [place]-Varghese catheter, CVP of around 12, cardiac index 3.1 patient creatinine went up to 1.70 resulting elevated pot assium of 5.5 patient is off pressor support, off nitro drip patient still has 2 mediastinal and one left-sided chest tube. 04/21/2022 Patient is evaluated in ICU today, sitting up in chair. He is postoperative day #2 for elective mitral valve repair, hematocrit bypass grafting maze procedure and PFO closure. He is on BiPAP with fio2 of 40% Continues with mediastinal/left pleural chest tubes. Continue with indwelling catheter. Received dose of IV albumin yesterday afternoon. Chest xray today showing ongoing mild pulmonary vascular congestion, increasing patchy bibasilar opacities, atelectasis vs. pulmonary edema. Currently on lasix gtt at 10mls/hr, continues on dopamine gtt at 3.68 mls/hr. Continues on insulin gtt and blood glucose remains in the 140 to 130s. Labs today showing sodium 132, potassium 6.1 improved to 5.4, BUN 41, creatinine 2.53, elevated liver enzymes. Hgb 7.3. Review of Systems Constitutional: Denied any fatigue denied any fever. Cardio vascular: denied any chest pain, palpitations Gastrointestinal: denied any nausea, vomiting, diarrhea Pulmonary: Denied any shortness of breath cough, reports incisional chest wall discomfort Neurologic denied any new focal deficits. Generalized weakness. All inpatient medications were reviewed and appropriate changes in these medications as dictated in the interval history and assessment and plan. PHYSICAL EXAMINATION: GENERAL: This a 72 year old male currently on BiPAP in ICU. HEENT: Pupils are round and equally reacting to light. EOMI. No scleral icterus. No conjunctival pallor. Normocephalic, atraumatic. No pharyngeal erythema. No thyromegaly. CARDIOVASCULAR: S1 and S2 present. No murmurs, rubs, or gallops. PULMONARY: Chest is clear to auscultation, no wheezing or crackles. Diminished. ABDOMEN: Soft, nontender, nondistended, normoactive bowel sounds. No palpable organomegaly. Mediastinal/left pleural chest tubes. Indwelling catheter. MUSCULOSKELETAL: No joint swelling or deformity. EXTREMITIES: No cyanosis, clubbing, or pedal edema. NEUROLOGICAL: Gross neurological examination did not reveal any focal deficits. SKIN: No rashes. Assessment and plan -Coronary artery disease mitral valvular disease status post CABG mitral valve repair. Postoperative Management is mainly by cardiothoracic surgery -Diabetes Mellitus type 2 with hyperglycemia, continuing hold oral diabetic agents, patient continues on insulin infusion. Once blood sugar improves and stable will consider transition off insulin gtt. -Paroxysmal atrial fibrillation status post modified Castanon-Maze procedure -acute renal failure on chronic kidney disease stage II with renal failure is probably prerenal azotemia -hyperkalemia secondary to acute renal failure, improved with lasix and dextrose currently 5.4. -COPD without any acute exacerbation -Hyperlipidemia -Hx of GI bleed requiring blood transfusion in November of 2021 -Chronic tobacco dependence DVT prophylaxis: Patient is on subcutaneous heparin Full Code The impression and plan of care has been dictated by Celestina Marroquin, Nurse Practitioner as directed. Dr. Ila MD I have performed a history and physical examination and medical decision making of this patient, discussed the same with the dictator, and agree with the dictators assessment and plan as written, documented as a scribe. Based on total visit time, I have performed more than 50% of this visit. Objective - Vital Signs Vital signs: Vital Signs Temp 37.1 F L 04/21/22 12:00 Pulse 80 04/21/22 13:00 Resp 38 H 04/21/22 13:00 BP 99/55 04/21/22 13:00 Pulse Ox 93 L 04/21/22 13:00 FiO2 40 04/21/22 12:00 Intake & Output 04/20/22 04/21/22 04/21/22 18:59 06:59 18:59 Intake Total 1561.751 587 578.986 Output Total 561 572 160 Balance 1000.751 15 418.986 Weight 98.4 kg 96.7 kg Intake: IV 439 527 214 Lactated Ringers 1,000 ml 220 260 @ 20 mls/hr IV .Q24H ZULMA Rx#:[id number] NS 120 cardiac ooutput 70 150 40 ceFAZolin 2 gm In Sodium 50 Chloride 0.9% 50 ml @ 100 mls/hr IVPB Q8HR ZULMA Rx# :[id number] pressure bags 99 117 54 Intake, IV Titration 22.751 60 124.986 Amount Dextrose/Water 1 250ml. 12 bag @ 2 MCG/KG/MIN 3.69 mls/hr IV .Q24H ZULMA with DOPamine DRIP 800 mg Rx#: [id number] Furosemide 100 mg In 60 105.083 Sodium Chloride 0.9% 90 ml @ 5 MG/HR 5 mls/hr IV .Q20H ZULMA Rx#:[id number] Insulin Regular 100 unit 22.751 7.903 In Sodium Chloride 0.9% 100 ml @ Per Protocol IV .Q0M ZULMA Rx#:[id number] Oral 1100 240 Output: Chest Tube Drainage 330 170 70 left pleural 170 110 60 mediastinal x2 160 60 10 Urine 231 402 90 Other: Voiding Method Indwelling Catheter Indwelling Catheter Indwelling Catheter ABP, PAP, CO, CI - Last Documented Arterial Blood Pressure 91/45 Pulmonary Artery Pressure 56/25 Cardiac Output 4.7 Cardiac Index 2.2 - Labs CBC & Chem 7: 04/21/22 03:34 04/21/22 06:30 Labs: Abnormal Lab Results - Last 24 Hours (Table) 04/12/22 04/20/22 04/20/22 Range/Units 09:21 13:56 17:19 RBC (4.30-5.90) m/uL Hgb (13.0-17.5) gm/dL Hct (39.0-53.0) % Plt Count (150-450) k/uL Lymphocytes # (1.0-4.8) k/uL Monocytes # (0-1.0) k/uL Sodium (137-145) mmol/L Potassium (3.5-5.1) mmol/L Carbon Dioxide (22-30) mmol/L BUN (9-20) mg/dL Creatinine (0.66-1.25) mg/dL Glucose (74-99) mg/dL POC Glucose (mg/dL) 234 H 197 H (70-110) mg/dL Calcium (8.4-10.2) mg/dL Magnesium (1.6-2.3) mg/dL AST (17-59) U/L ALT (4-49) U/L Alkaline Phosphatase (38-126) U/L Total Protein (6.3-8.2) g/dL Crossmatch See Detail 1104/21/22 04/21/22 Range/Units 23:04 03:34 03:34 RBC 2.35 L (4.30-5.90) m/uL Hgb 7.3 L (13.0-17.5) gm/dL Hct 23.4 L (39.0-53.0) % Plt Count 144 L (150-450) k/uL Lymphocytes # 0.5 L (1.0-4.8) k/uL Monocytes # 1.1 H (0-1.0) k/uL Sodium 134 L 132 L (137-145) mmol/L Potassium 5.7 H 6.1 H* (3.5-5.1) mmol/L Carbon Dioxide 21 L (22-30) mmol/L BUN 39 H 41 H (9-20) mg/dL Creatinine 2.21 H 2.53 H (0.66-1.25) mg/dL Glucose 169 H 175 H (74-99) mg/dL POC Glucose (mg/dL) (70-110) mg/dL Calcium 7.7 L 7.6 L (8.4-10.2) mg/dL Magnesium (1.6-2.3) mg/dL AST 1828 H 1309 H (17-59) U/L ALT 646 H 547 H (4-49) U/L Alkaline Phosphatase 28 L 31 L (38-126) U/L Total Protein 5.5 L 5.3 L (6.3-8.2) g/dL Crossmatch 04/21/22 04/21/22 04/21/22 Range/Units 03:34 05:39 06:30 RBC (4.30-5.90) m/uL Hgb (13.0-17.5) gm/dL Hct (39.0-53.0) % Plt Count (150-450) k/uL Lymphocytes # (1.0-4.8) k/uL Monocytes # (0-1.0) k/uL Sodium (137-145) mmol/L Potassium 5.4 H (3.5-5.1) mmol/L Carbon Dioxide (22-30) mmol/L BUN (9-20) mg/dL Creatinine (0.66-1.25) mg/dL Glucose (74-99) mg/dL POC Glucose (mg/dL) 341 H (70-110) mg/dL Calcium (8.4-10.2) mg/dL Magnesium 3.6 H (1.6-2.3) mg/dL AST (17-59) U/L ALT (4-49) U/L Alkaline Phosphatase (38-126) U/L Total Protein (6.3-8.2) g/dL Crossmatch 04/21/22 04/21/22 04/21/22 Range/Units 07:00 09:05 10:27 RBC (4.30-5.90) m/uL Hgb (13.0-17.5) gm/dL Hct (39.0-53.0) % Plt Count (150-450) k/uL Lymphocytes # (1.0-4.8) k/uL Monocytes # (0-1.0) k/uL Sodium (137-145) mmol/L Potassium (3.5-5.1) mmol/L Carbon Dioxide (22-30) mmol/L BUN (9-20) mg/dL Creatinine (0.66-1.25) mg/dL Glucose (74-99) mg/dL POC Glucose (mg/dL) 176 H 149 H 138 H (70-110) mg/dL Calcium (8.4-10.2) mg/dL Magnesium (1.6-2.3) mg/dL AST (17-59) U/L ALT (4-49) U/L Alkaline Phosphatase (38-126) U/L Total Protein (6.3-8.2) g/dL Crossmatch 04/21/22 04/21/22 04/21/22 Range/Units 11:17 12:12 13:35 RBC (4.30-5.90) m/uL Hgb (13.0-17.5) gm/dL Hct (39.0-53.0) % Plt Count (150-450) k/uL Lymphocytes # (1.0-4.8) k/uL Monocytes # (0-1.0) k/uL Sodium (137-145) mmol/L Potassium (3.5-5.1) mmol/L Carbon Dioxide (22-30) mmol/L BUN (9-20) mg/dL Creatinine (0.66-1.25) mg/dL Glucose (74-99) mg/dL POC Glucose (mg/dL) 118 H 145 H 130 H (70-110) mg/dL Calcium (8.4-10.2) mg/dL Magnesium (1.6-2.3) mg/dL AST (17-59) U/L ALT (4-49) U/L Alkaline Phosphatase (38-126) U/L Total Protein (6.3-8.2) g/dL Crossmatch Microbiology - Last 24 Hours (Table) 04/19/22 19:45 Gram Stain - Preliminary Sputum Sputum Culture - Preliminary Assessment and Plan Time with Patient: Less than 30
[2022-04-21] MEDS: DEXTROSE/WATER 1 250ML.BAG with DOPamine DRIP 800 MG IV SCH (14:25)
[2022-04-21 15:58] LABS: Glucose,Whole Blood 141 mg/dL (70-110)
[2022-04-21 17:10] LABS: Glucose,Whole Blood 151 mg/dL (70-110)
[2022-04-21 18:40] LABS: Glucose,Whole Blood 403 mg/dL (70-110)
[2022-04-21 18:42] LABS: Glucose,Whole Blood 378 mg/dL (70-110)
[2022-04-21 20:10] LABS: Glucose,Whole Blood 168 mg/dL (70-110)
[2022-04-21] MEDS: SENNOSIDES-DOCUSATE SODIUM 1 EACH TAB PO SCH (20:23)
[2022-04-21] MEDS: FENOFIBRATE 160 MG TAB PO SCH (20:24)
[2022-04-21] MEDS: SYMBICORT 160-4.5 MCG INHALER INHALATION SCH (20:55)
[2022-04-21 21:09] LABS: Glucose,Whole Blood 159 mg/dL (70-110)
[2022-04-21 21:54] LABS: Glucose,Whole Blood 160 mg/dL (70-110)
[2022-04-21 23:07] LABS: Glucose,Whole Blood 147 mg/dL (70-110)
[2022-04-21 23:57] LABS: Glucose,Whole Blood 149 mg/dL (70-110)
[2022-04-22 01:10] LABS: Glucose,Whole Blood 145 mg/dL (70-110)
[2022-04-22 02:01] LABS: Glucose,Whole Blood 135 mg/dL (70-110)
[2022-04-22] MEDS: IPRATROPIUM-ALBUTEROL 3 ML NEB INHALATION PRN (02:27)
[2022-04-22 03:03] LABS: Glucose,Whole Blood 125 mg/dL (70-110)
[2022-04-22 04:01] LABS: Glucose,Whole Blood 121 mg/dL (70-110)
[2022-04-22 04:13] LABS: Basophils % (A) 0 %; Eosinophils # (A) 0.1 k/uL (0-0.7); Eosinophils % (A) 2 %; HCT 23.3 % (39.0-53.0); HGB 7.4 gm/dL (13.0-17.5); Hypochromasia Marked; Lymphocytes # (A) 0.4 k/uL (1.0-4.8); Lymphocytes % (A) 5 %; MCH 31.4 pg (25.0-35.0); MCHC 31.7 g/dL (31.0-37.0); MCV 98.9 fL (80.0-100.0); Macrocytosis Slight; Mean Platelet Volume 10.1; Monocytes # (A) 0.9 k/uL (0-1.0); Monocytes % (A) 10 %; Neutrophils # (A) 6.8 k/uL (1.3-7.7); Neutrophils % (A) 79 %; Platelet Count 135 k/uL (150-450); Poikilocytosis Slight; RBC 2.35 m/uL (4.30-5.90); RDW 15.2 % (11.5-15.5); WBC 8.5 k/uL (3.8-10.6)
[2022-04-22 04:28] LABS: Albumin 3.4 g/dL (3.5-5.0); Calcium 7.4 mg/dL (8.4-10.2); Magnesium 3.7 mg/dL (1.6-2.3); Potassium 5.8 mmol/L (3.5-5.1); Total Bilirubin 0.7 mg/dL (0.2-1.3); Total Protein 5.3 g/dL (6.3-8.2)
[2022-04-22] MEDS: HYDROcodone/APAP 5-325MG 1 EACH TAB PO PRN (04:28)
[2022-04-22 04:59] LABS: Glucose,Whole Blood 116 mg/dL (70-110)
[2022-04-22 06:00] LABS: Glucose,Whole Blood 123 mg/dL (70-110)
[2022-04-22 07:02] LABS: Glucose,Whole Blood 107 mg/dL (70-110)
[2022-04-22] MEDS: FUROSEMIDE 100 MG in SODIUM CHLORIDE 0.9% 90 ML IV SCH ×3 (07:08→23:22)
--- NOTE | 2022-04-22 07:38 | P.PN ---
Subjective Progress Note Date: 04/22/22 Principal diagnosis: Severe mitral valve regurgitation, coronary artery disease, paroxysmal atrial fibrillation, patent foramen ovale, tricuspid regurgitation, chronic systolic congestive heart failure. Previous medical history of hypertension, hyperlipidemia, coronary artery disease with history of previous PCI, non-ST elevated myocardial infarction in November 2021, ischemic cardiomyopathy with EF 40- 45%, right internal carotid stenosis 50-79%, renal insufficiency, anemia with history of GI bleed in November 2021 S/P transfusion PRBCs, diabetes mellitus type 2, osteoarthritis, severe COPD, chronic ongoing nicotine dependence, remote history of pneumonia, chronic low back pain and hearing disorder. Nasal swab positive for MSSA preoperative POD #3 Mitral valve repair with 28 mm physio-2 ring, CABG 3 with saphenous vein grafts to first diagonal, obtuse marginal, posterior descending coronary arteries, closure of PFO, endovascular vein harvest, modified Castanon maze procedure with full left-sided lesion set and ligation of the left atrial appendage, SCOTT by anesthesia. Protamine reaction intraoperative Postoperative acute blood loss anemia, expected given his history of anemia, hemodilution and cardiopulmonary bypass Acute on chronic kidney failure, likely from hypotension from intraoperative protamine reaction Elevated transaminases, likely from hypotension from intraoperative protamine reaction The patient was seen and examined this morning sitting up in a recliner in the intensive care unit in no acute distress. Remains AV paced at 80 bpm, underlying rhythm sinus in the low 50s with hypotension off pacing, blood pressure soft especially when not paced, currently on IV dopamine. Currently on 12 L high flow nasal cannula with oxygen saturation in the high 90s, only able to achieve 750 mL on his incentive spirometer. States pain is controlled on current medication regimen, denies shortness of breath, states he feels a little better today. Patient had minimal urine output again decreased yesterday and continuous IV Lasix increased. Labs and chest x-ray reviewed. Right internal jugular [place]/Cordis, right radial arterial line, mediastinal/left pleural chest tubes all remain. Objective - Vital Signs Vital signs: Vital Signs Temp 99.3 F 04/22/22 04:00 Pulse 80 04/22/22 07:00 Resp 23 04/22/22 07:00 BP 114/61 04/22/22 07:00 Pulse Ox 96 04/22/22 07:00 FiO2 100 04/21/22 19:00 Intake & Output 11/04/22/22 04/22/22 18:59 06:59 18:59 Intake Total 1393.365 523.768 105.108 Output Total 395 530 Balance 998.365 -6.232 105.108 Weight 97.1 kg Intake: IV 448 438 NS 240 240 cardiac ooutput 100 90 pressure bags 108 108 Intake, IV Titration 145.365 85.768 105.108 Amount Dextrose/Water 1 250ml. 22 bag @ 2 MCG/KG/MIN 3.69 mls/hr IV .Q24H ZULMA with DOPamine DRIP 800 mg Rx#: [id number] Furosemide 100 mg In 114.250 76.333 90.833 Sodium Chloride 0.9% 90 ml @ 10 MG/HR 10 mls/hr IV .Q10H ZULMA Rx#: [id number] Insulin Regular 100 unit 9.115 9.435 14.275 In Sodium Chloride 0.9% 100 ml @ Per Protocol IV .Q0M ZULMA Rx#:[id number] Oral 800 Output: Chest Tube Drainage 180 140 left pleural 140 90 mediastinal x2 40 50 Urine 215 390 Other: Voiding Method Indwelling Catheter Indwelling Catheter ABP, PAP, CO, CI - Last Documented Arterial Blood Pressure 18/5 Pulmonary Artery Pressure 58/26 Cardiac Output 4.5 Cardiac Index 2.2 - Exam CONSTITUTIONAL: Appears comfortable, cooperative, very hard of hearing RESPIRATORY: Lungs sounds diminished bilaterally. Respirations even, nonla bored. Currently on 12 L high flow nasal cannula with oxygen saturation 98%. Able to achieve 750 mL on incentive spirometry. Strong nonproductive cough. CARDIOVASCULAR: S1, S2 present. Regular rate and rhythm, AV paced at 80 bpm, underlying rhythm sinus rhythm in the mid 50s on telemetry. Sternum stable. Palpable peripheral pulses bilaterally. Generalized edema present. No calf pain or tenderness noted. Heart hugger in place. Antiembolism stockings, SCDs present. GASTROINTESTINAL: Abdomen soft, nontender, nondistended. Tympanic to percussion. Active bowel sounds present 4 quadrants. Tolerating minimal diet. Positive flatus GENITOURINARY: Mooney present draining clear, yellow urine. Output overnight 30-55 mL per hour, 605 mL in the last 24 hours INTEGUMENTARY: Skin is warm and dry with evidence of good perfusion. Anterior chest incision well approximated and covered with dry intact dressing. Bilateral EVH site well approximated without redness or drainage. NEUROLOGIC: Cranial nerves II through XII intact MUSKULOSKELETAL: Able to move all extremities, strength equal bilaterally PSYCHIATRIC: Alert and oriented to person place and time, appropriate affect, intact judgment and insight INVASIVE LINES AND TUBES: Mediastinal/left pleural chest tubes present and connected to wall suction, no air leaks present. Mediastinal tube with 30 mL serosanguineous drainage overnight, 100 mL in the last 24 hours. Left pleural chest tube with 60 mL serosanguineous drainage overnight, 250 mL in the last 24 hours. A/V epicardial pacemaker wires present, connected to generator, DDD mode with rate 80 bpm. Right internal jugular [place]/Cordis, right radial arterial monica e present. Last CO/CI 4.5/2.2, PA 60/28, CVP 15. - Allied health notes Allied health notes reviewed: nursing - Labs CBC & Chem 7: 04/22/22 04:00 04/22/22 04:00 Labs: Abnormal Lab Results - Last 24 Hours (Table) 04/21/22 04/21/22 04/21/22 Range/Units 09:05 10:27 11:17 RBC (4.30-5.90) m/uL Hgb (13.0-17.5) gm/dL Hct (39.0-53.0) % Plt Count (150-450) k/uL Lymphocytes # (1.0-4.8) k/uL Sodium (137-145) mmol/L Potassium (3.5-5.1) mmol/L BUN (9-20) mg/dL Creatinine (0.66-1.25) mg/dL Glucose (74-99) mg/dL POC Glucose (mg/dL) 149 H 138 H 118 H (70-110) mg/dL Calcium (8.4-10.2) mg/dL Magnesium (1.6-2.3) mg/dL AST (17-59) U/L ALT (4-49) U/L Total Protein (6.3-8.2) g/dL Albumin (3.5-5.0) g/dL 04/21/22 04/21/22 04/21/22 Range/Units 12:12 13:35 15:50 RBC (4.30-5.90) m/uL Hgb (13.0-17.5) gm/dL Hct (39.0-53.0) % Plt Count (150-450) k/uL Lymphocytes # (1.0-4.8) k/uL Sodium (137-145) mmol/L Potassium (3.5-5.1) mmol/L BUN (9-20) mg/dL Creatinine (0.66-1.25) mg/dL Glucose (74-99) mg/dL POC Glucose (mg/dL) 145 H 130 H 141 H (70-110) mg/dL Calcium (8.4-10.2) mg/dL Magnesium (1.6-2.3) mg/dL AST (17-59) U/L ALT (4-49) U/L Total Protein (6.3-8.2) g/dL Albumin (3.5-5.0) g/dL 04/21/22 04/21/22 04/21/22 Range/Units 17:05 17:09 18:38 RBC (4.30-5.90) m/uL Hgb (13.0-17.5) gm/dL Hct (39.0-53.0) % Plt Count (150-450) k/uL Lymphocytes # (1.0-4.8) k/uL Sodium (137-145) mmol/L Potassium 6.2 H* (3.5-5.1) mmol/L BUN (9-20) mg/dL Creatinine (0.66-1.25) mg/dL Glucose (74-99) mg/dL POC Glucose (mg/dL) 151 H 403 H (70-110) mg/dL Calcium (8.4-10.2) mg/dL Magnesium (1.6-2.3) mg/dL AST (17-59) U/L ALT (4-49) U/L Total Protein (6.3-8.2) g/dL Albumin (3.5-5.0) g/dL 04/21/22 04/21/22 04/21/22 Range/Units 18:41 20:03 21:08 RBC (4.30-5.90) m/uL Hgb (13.0-17.5) gm/dL Hct (39.0-53.0) % Plt Count (150-450) k/uL Lymphocytes # (1.0-4.8) k/uL Sodium (137-145) mmol/L Potassium (3.5-5.1) mmol/L BUN (9-20) mg/dL Creatinine (0.66-1.25) mg/dL Glucose (74-99) mg/dL POC Glucose (mg/dL) 378 H 168 H 159 H (70-110) mg/dL Calcium (8.4-10.2) mg/dL Magnesium (1.6-2.3) mg/dL AST (17-59) U/L ALT (4-49) U/L Total Protein (6.3-8.2) g/dL Albumin (3.5-5.0) g/dL 04/21/22 04/21/22 04/21/22 Range/Units 21:50 21:52 23:04 RBC (4.30-5.90) m/uL Hgb (13.0-17.5) gm/dL Hct (39.0-53.0) % Plt Count (150-450) k/uL Lymphocytes # (1.0-4.8) k/uL Sodium (137-145) mmol/L Potassium 5.6 H (3.5-5.1) mmol/L BUN (9-20) mg/dL Creatinine (0.66-1.25) mg/dL Glucose (74-99) mg/dL POC Glucose (mg/dL) 160 H 147 H (70-110) mg/dL Calcium (8.4-10.2) mg/dL Magnesium (1.6-2.3) mg/dL AST (17-59) U/L ALT (4-49) U/L Total Protein (6.3-8.2) g/dL Albumin (3.5-5.0) g/dL 04/21/22 04/22/22 04/22/22 Range/Units 23:56 01:07 01:59 RBC (4.30-5.90) m/uL Hgb (13.0-17.5) gm/dL Hct (39.0-53.0) % Plt Count (150-450) k/uL Lymphocytes # (1.0-4.8) k/uL Sodium (137-145) mmol/L Potassium (3.5-5.1) mmol/L BUN (9-20) mg/dL Creatinine (0.66-1.25) mg/dL Glucose (74-99) mg/dL POC Glucose (mg/dL) 149 H 145 H 135 H (70-110) mg/dL Calcium (8.4-10.2) mg/dL Magnesium (1.6-2.3) mg/dL AST (17-59) U/L ALT (4-49) U/L Total Protein (6.3-8.2) g/dL Albumin (3.5-5.0) g/dL 04/22/22 04/22/22 04/22/22 Range/Units 03:01 03:59 04:00 RBC 2.35 L (4.30-5.90) m/uL Hgb 7.4 L (13.0-17.5) gm/dL Hct 23.3 L (39.0-53.0) % Plt Count 135 L (150-450) k/uL Lymphocytes # 0.4 L (1.0-4.8) k/uL Sodium (137-145) mmol/L Potassium (3.5-5.1) mmol/L BUN (9-20) mg/dL Creatinine (0.66-1.25) mg/dL Glucose (74-99) mg/dL POC Glucose (mg/dL) 125 H 121 H (70-110) mg/dL Calcium (8.4-10.2) mg/dL Magnesium (1.6-2.3) mg/dL AST (17-59) U/L ALT (4-49) U/L Total Protein (6.3-8.2) g/dL Albumin (3.5-5.0) g/dL 04/22/22 04/22/22 04/22/22 Range/Units 04:00 04:58 05:59 RBC (4.30-5.90) m/uL Hgb (13.0-17.5) gm/dL Hct (39.0-53.0) % Plt Count (150-450) k/uL Lymphocytes # (1.0-4.8) k/uL Sodium 131 L (137-145) mmol/L Potassium 5.8 H (3.5-5.1) mmol/L BUN 51 H (9-20) mg/dL Creatinine 3.14 H (0.66-1.25) mg/dL Glucose 110 H (74-99) mg/dL POC Glucose (mg/dL) 116 H 123 H (70-110) mg/dL Calcium 7.4 L (8.4-10.2) mg/dL Magnesium 3.7 H (1.6-2.3) mg/dL AST 2217 H (17-59) U/L ALT 1006 H (4-49) U/L Total Protein 5.3 L (6.3-8.2) g/dL Albumin 3.4 L (3.5-5.0) g/dL - Imaging and Cardiology Chest x-ray: image reviewed Assessment and Plan Assessment: 1. Severe mitral valve regurgitation, status post mitral valve repair 2. Coronary artery disease, previous PCI, previous non-STEMI, status post CABG 3 3. History of paroxysmal atrial fibrillation, previous cardioversion, on Eliquis outpatient for anticoagulation, status post modified Castanon maze and ligation of left atrial appendage 4. Patent foramen ovale, status post closure 5. Tricuspid regurgitation 6. Chronic systolic congestive heart failure, ischemic cardiomyopathy with EF 40-45% 7. History of hypertension 8. History hyperlipidemia, treated, cholesterol 150, LDL 72 9. Right internal carotid stenosis 50-79% 10. Anemia with history of GI bleed in November 2021 S/P transfusion PRBCs 11. Acute on chronic renal failure, baseline creatinine 1.28-1.6 12. Diabetes mellitus type 2, preoperative hemoglobin A1c 5.6% 13. Osteoarthritis 14. Severe COPD, preoperative FEV1 41% of predicted 15. Chronic ongoing nicotine dependence 16. Remote history of pneumonia 17. Chronic low back pain, hearing disorder 18. Nasal swab positive for MSSA preoperative 19. Postoperative acute blood loss anemia, expected 20. Elevated transaminases 21. Protamine reaction intraoperative Plan: 1. Continue aspirin, Plavix, and beta siomara therapy. Hold parameters placed on BB. Statin on hold due to elevated LFT 2. Amiodarone discontinued due to elevated LFTs. No anticoagulation until after all lines and tubes have been discontinued, likely will discharge home on Eliquis 3. Continue dopamine, IV Lasix 4. Wean O2 as tolerated. Encourage incentive spirometry 10 times every hour while awake. Bronchodilators, BiPAP per pulmonology 5. Increase activity, ambulate as tolerated. PT/OT/cardiac rehab consulted. 6. Will monitor daily labs and chest x-rays. Electronic replacement per protocol. 7. GI/DVT prophylaxis. 8. Insulin management per primary care service. Patient is a diabetic with a preoperative hemoglobin A1c of 5.6% on multiple oral medications, needs tight blood sugar control 9. Pain control with current medication regimen. 10. Continue Seneca, Cordis, arterial line 11. Will discontinue chest tubes 12. Continue Mooney catheter for another 24 hours for strict accurate intake and output. 13. Daily weights. 14. Smoking cessation counseling and education provided to patient and family 15. More recommendations to follow based on patient's clinical course.
--- NOTE | 2022-04-22 08:31 | XR ---
EXAMINATION TYPE: XR chest 1V portable DATE OF EXAM: 04/22/2022 Comparison: 04/21/2022 Clinical History: 72-year-old male post cardiac surgery Findings: Right IJ Butler-Varghese catheter, tip in the main pulmonary outflow tract. Median sternotomy wires with an nuloplasty ring. Left-sided chest tube in place. Interstitial prominence is similar to slightly impro brayan. Patchy bibasilar opacities persist but show slight improvement. No sizable pleural effusion. No appreciable pneumothorax. Heart remains enlarged. Full-thickness rotator cuff retear right shoulder. Impression: Cardiomegaly and mild pulmonary vascular congestion similar to slightly improved. Patchy bibasilar op acities persist but also show slight improvement.
[2022-04-22 08:35] LABS: Glucose,Whole Blood 155 mg/dL (70-110)
[2022-04-22] MEDS: SYMBICORT 160-4.5 MCG INHALER INHALATION SCH ×2 (08:55→19:47)
[2022-04-22] MEDS: IPRATROPIUM-ALBUTEROL 3 ML NEB INHALATION SCH ×4 (08:55→19:47)
[2022-04-22] MEDS: SODIUM CHLORIDE 0.9% 1,000 ML IV SCH ×2 (09:21→23:23)
[2022-04-22] MEDS: METOPROLOL TARTRATE 12.5 MG TAB PO SCH ×2 (09:29→19:34)
[2022-04-22 09:34] LABS: Glucose,Whole Blood 144 mg/dL (70-110)
[2022-04-22] MEDS: CLOPIDOGREL 75 MG TAB PO SCH (09:41)
[2022-04-22] MEDS: ASPIRIN 325 MG TAB PO SCH (09:41)
[2022-04-22] MEDS: HEPARIN SODIUM,PORCINE/PF 5,000 UNIT/0.5 ML SYRINGE SQ SCH ×4 (09:41→23:23)
[2022-04-22] MEDS: ASCORBIC ACID 500 MG TAB PO SCH (09:42)
[2022-04-22] MEDS: FERROUS SULFATE 325 MG TAB PO SCH ×2 (09:42→20:38)
[2022-04-22] MEDS: MUPIROCIN 2% OINT 22 GM TUBE NASAL SCH ×2 (09:44→20:38)
[2022-04-22] MEDS: traMADol 50 MG TAB PO PRN ×2 (09:54→15:09)
[2022-04-22 11:14] LABS: Glucose,Whole Blood 173 mg/dL (70-110)
--- NOTE | 2022-04-22 11:25 | CA ---
Transthoracic Echo Report Name: Derek Araiza Age: 72 Gender: M : 1950 Exam Date: 04/21/2022 13:45 Exam Location: [facility] Ht (in): 69 Wt (lb): 213 Ordering Physician: Santiago Ramos MD ([id number]) Attending/Referring Phys: Rachel MENEZES Comptroller Deyanira Laguna RDCS Procedure CPT: Indications: LV function Cardiac Hx: Technical Quality: Technically difficult study Contrast 1: Total Dose (mL): Contrast 2: Total Dose (mL): MEASUREMENTS (Male / Female) Normal Values DOPPLER MV Peak Velocity 190.2 cm/s MV Peak Gradient 14.5 mmHg MV Mean Velocity 84.9 cm/s MV Mean Gradient 4.1 mmHg MV Velocity Time Integral 33.0 cm MR Peak Velocity 402.9 cm/s MR Peak Gradient 64.9 mmHg TR Peak Velocity 342.2 cm/s TR Peak Gradient 46.8 mmHg Right Ventricular Systolic Press 51.8 mmHg FINDINGS Left Ventricle Limited study, s/p CABG, PFO closure and mitral valve repair. Preserved ejection fraction, EF 45-50%, Inferior wall hypokinesis. Abnormal (paradoxical) septal motion consistent with postoperative state. Right Ventricle Moderate to severe pulmonary hypertension. Right Atrium Left Atrium Mitral Valve S/P repair, [id number] mitral regurgitation. Aortic Valve Tricuspid Valve Moderate tricuspid regurgitation. Pulmonic Valve Pericardium No pericardial effusion. Aorta CONCLUSIONS Mild LV systolic dysfunction Mild to moderate mitral regurgitation Moderate pulmonary hypertension with moderate tricuspid regurgitation Previewed by: Dr. Santiago Ramos MD (Electronically Signed) Final Date: 22 April 2022 11:24
[2022-04-22 11:59] LABS: Glucose,Whole Blood 162 mg/dL (70-110)
--- NOTE | 2022-04-22 13:09 | P.PN ---
Subjective Progress Note Date: 04/22/22 Principal diagnosis: Status post CABG. This is a pleasant 72-year-old male patient with a known history of osteoarthritis was multiple orthopedic surgeries, diabetes mellitus, hyp erlipidemia, chronic tobacco dependence, paroxysmal atrial fibrillation. He was recently found to have coronary artery disease with a total occlusion of the RCA with collateral circulation, obtuse marginal with 99% stenosis and mild LAD disease. His ejection fraction is 45%. He was also found to have severe mitral regurgitation, moderate central tricuspid regurgitation as well as evidence of a PFO with aecfl-vw-ozwl shunt. He was recommended coronary artery bypass grafting and valvular repair. He was brought in to the hospital yesterday 04/20/2022 for an elective procedure. He did undergo mitral valve repair, coronary bypass grafting 3 with an SVG to the first diagonal, obtuse marginal and posterior descending coronary arteries, closure of a PFO, modified Castanon-Maze procedure and litigation of the left atrial appendage. He was successfully extubated within the 6 hour protocol. He is seen today in consultation in the intensive care unit. He is ready sitting up in a chair. Awake and alert in no acute distress. He is maintaining O2 saturation in the 90s on 3 L/m per nasal cannula. He has insulin drip at 5 units per hour. Lactated Ringer's at 20 miles per hour. He initially was on epinephrine drip that has been discontinued. He did receive 2 units of packed red blood cells, 2 units of fresh frozen plasma and 1 unit of platelets. White count 8.9. Hemoglobin 7.7. Platelets 139,000. Sodium 142. Potassium 5.5. Chloride 111. Bicarb 23. BUN 32. Creatinine 1.73. Glucose 125. AST 1:30. ALT 37. Magnesium 3.6. Mean arterial blood pressure in the 70s. PA pressures 50/18. CVP 12. Cardiac output 6.5. Cardiac index 3.1. He is on bronchodilators. Working well with the incentive spirometer. Chest x-ray reveals scattered opacities bilaterally. No evidence of pleural effusion, focal consolidation or pneumothorax. Mediastinal 2, left pleural chest tube in place. He is continued on oral amiodarone. Heparin for DVT prophylaxis. The patient is seen today in 04/21/2022 in follow-up in the intensive care unit. He is currently sitting up in a recliner at the bedside. Maintaining O2 saturations on 5 L/m per nasal cannula. He did require BiPAP support last evening and was placed on 14/10 and 100% FiO2 eventually decreased to 40%. He is currently on a Lasix drip at 5 mg per hour. Dopamine drip at 2 mcg/kg/m. Cardiac output 4.6. Cardiac index 2.2. He is dual pacing. He has normal saline at 20 ML's per hour. He is unemployed about 750 MLS on the incentive spirometer. His x-ray continues to show cardiomegaly with ongoing mild pulmonary vascular congestion. Increasing patchy bibasilar opacities/atelectasis. Right IJ [place]-Varghese catheter remains in place. He is sternal and left sided chest tubes remain in place. No pneumothorax. White count 9.6. Hemoglobin 7.3. Platelets 144. Sodium 132. Potassium 5.4. Bicarb 21. BUN 41. Creatinine 2.53. Glucose 175. AST 1309. ALT 547. Albumin 3.6. The patient does have a cyst the year smoking history. He remains on DuoNeb inhalations 4 times a day and when necessary. Heparin for DVT prophylaxis. Progress note dated 04/22/2022. 72-year-old male, who is currently seen in room 267. He's postop day #3. The patient's currently on 8 L high flow oxygen. He is getting dopamine at 2 mcg/kg/m, a Lasix drip at 10 mg an hour, insulin at 1.5 units an hour, and saline at 20 mL an hour. Labs today include a white count of 8.5, hemoglobin 7.4, hematocrit 23.3, and a platelet count of 135,000. Sodium 131, potassium 5.8, chlorides 102, CO2 23, BUN 51, and creatinine 3.1. AST was 2217. ALT is 1006. Chest x-ray shows cardiomegaly, and pulmonary vascular congestion. Objective - Vital Signs Vital signs: Vital Signs Temp 97.9 F 04/22/22 12:00 Pulse 80 04/22/22 12:00 Resp 23 04/22/22 12:00 BP 116/60 04/22/22 12:00 Pulse Ox 97 04/22/22 12:00 FiO2 100 04/22/22 12:00 Intake & Output 04/21/22 04/22/22 04/22/22 18:59 06:59 18:59 Intake Total 1393.365 523.768 535.057 Output Total 395 530 290 Balance 998.365 -6.232 245.057 Weight 97.1 kg Intake: IV 448 438 185 NS 240 240 100 cardiac ooutput 100 90 40 pressure bags 108 108 45 Intake, IV Titration 145.365 85.768 110.057 Amount Dextrose/Water 1 250ml. 22 bag @ 2 MCG/KG/MIN 3.69 mls/hr IV .Q24H ZULMA with DOPamine DRIP 800 mg Rx#: [id number] Furosemide 100 mg In 114.250 76.333 90.833 Sodium Chloride 0.9% 90 ml @ 10 MG/HR 10 mls/hr IV .Q10H ZULMA Rx#: [id number] Insulin Regular 100 unit 9.115 9.435 19.224 In Sodium Chloride 0.9% 100 ml @ Per Protocol IV .Q0M ZULMA Rx#:[id number] Oral 800 240 Output: Chest Tube Drainage 180 140 50 left pleural 140 90 40 mediastinal x2 40 50 10 Urine 215 390 240 Other: Voiding Method Indwelling Catheter Indwelling Catheter Indwelling Catheter ABP, PAP, CO, CI - Last Documented Arterial Blood Pressure 101/46 Pulmonary Artery Pressure 63/22 Cardiac Output 5.1 Cardiac Index 2.4 - Exam No acute distress, oriented 3. No audible wheezing, use of accessory muscles, or conversational dyspnea. The patient remains on high flow nasal cannula. HEENT examination is grossly unremarkable. Neck supple. Full range of motion. No adenopathy thyromegaly or neck vein distention. Cardiovascular examination reveals regular rhythm rate. S1-S2 normal. No S3 or S4. No discernible murmur noted. Heart rate is 80 bpm. Heart sounds are distant. Lungs reveal scattered bilateral rhonchi. Crackles at the bases. No wheezes. Breath sounds are equal bilaterally. Saturations are 97%. Abdomen soft bowel sounds are heard. No masses or tenderness. Extremities are intact. No cyanosis clubbing or edema. Skin is without rash or lesion. Neurologic examination is brief but nonfocal. - Labs CBC & Chem 7: 04/22/22 04:00 04/22/22 04:00 Labs: Abnormal Lab Results - Last 24 Hours (Table) 04/21/22 04/21/22 04/21/22 Range/Units 13:35 15:50 17:05 RBC (4.30-5.90) m/uL Hgb (13.0-17.5) gm/dL Hct (39.0-53.0) % Plt Count (150-450) k/uL Lymphocytes # (1.0-4.8) k/uL Sodium (137-145) mmol/L Potassium 6.2 H* (3.5-5.1) mmol/L BUN (9-20) mg/dL Creatinine (0.66-1.25) mg/dL Glucose (74-99) mg/dL POC Glucose (mg/dL) 130 H 141 H (70-110) mg/dL Calcium (8.4-10.2) mg/dL Magnesium (1.6-2.3) mg/dL AST (17-59) U/L ALT (4-49) U/L Total Protein (6.3-8.2) g/dL Albumin (3.5-5.0) g/dL 04/21/22 04/21/22 04/21/22 Range/Units 17:09 18:38 18:41 RBC (4.30-5.90) m/uL Hgb (13.0-17.5) gm/dL Hct (39.0-53.0) % Plt Count (150-450) k/uL Lymphocytes # (1.0-4.8) k/uL Sodium (137-145) mmol/L Potassium (3.5-5.1) mmol/L BUN (9-20) mg/dL Creatinine (0.66-1.25) mg/dL Glucose (74-99) mg/dL POC Glucose (mg/dL) 151 H 403 H 378 H (70-110) mg/dL Calcium (8.4-10.2) mg/dL Magnesium (1.6-2.3) mg/dL AST (17-59) U/L ALT (4-49) U/L Total Protein (6.3-8.2) g/dL Albumin (3.5-5.0) g/dL 04/21/22 04/21/22 04/21/22 Range/Units 20:03 21:08 21:50 RBC (4.30-5.90) m/uL Hgb (13.0-17.5) gm/dL Hct (39.0-53.0) % Plt Count (150-450) k/uL Lymphocytes # (1.0-4.8) k/uL Sodium (137-145) mmol/L Potassium 5.6 H (3.5-5.1) mmol/L BUN (9-20) mg/dL Creatinine (0.66-1.25) mg/dL Glucose (74-99) mg/dL POC Glucose (mg/dL) 168 H 159 H (70-110) mg/dL Calcium (8.4-10.2) mg/dL Magnesium (1.6-2.3) mg/dL AST (17-59) U/L ALT (4-49) U/L Total Protein (6.3-8.2) g/dL Albumin (3.5-5.0) g/dL 04/21/22 04/21/22 04/21/22 Range/Units 21:52 23:04 23:56 RBC (4.30-5.90) m/uL Hgb (13.0-17.5) gm/dL Hct (39.0-53.0) % Plt Count (150-450) k/uL Lymphocytes # (1.0-4.8) k/uL Sodium (137-145) mmol/L Potassium (3.5-5.1) mmol/L BUN (9-20) mg/dL Creatinine (0.66-1.25) mg/dL Glucose (74-99) mg/dL POC Glucose (mg/dL) 160 H 147 H 149 H (70-110) mg/dL Calcium (8.4-10.2) mg/dL Magnesium (1.6-2.3) mg/dL AST (17-59) U/L ALT (4-49) U/L Total Protein (6.3-8.2) g/dL Albumin (3.5-5.0) g/dL 04/22/22 04/22/22 04/22/22 Range/Units 01:07 01:59 03:01 RBC (4.30-5.90) m/uL Hgb (13.0-17.5) gm/dL Hct (39.0-53.0) % Plt Count (150-450) k/uL Lymphocytes # (1.0-4.8) k/uL Sodium (137-145) mmol/L Potassium (3.5-5.1) mmol/L BUN (9-20) mg/dL Creatinine (0.66-1.25) mg/dL Glucose (74-99) mg/dL POC Glucose (mg/dL) 145 H 135 H 125 H (70-110) mg/dL Calcium (8.4-10.2) mg/dL Magnesium (1.6-2.3) mg/dL AST (17-59) U/L ALT (4-49) U/L Total Protein (6.3-8.2) g/dL Albumin (3.5-5.0) g/dL 04/22/22 04/22/22 04/22/22 Range/Units 03:59 04:00 04:00 RBC 2.35 L (4.30-5.90) m/uL Hgb 7.4 L (13.0-17.5) gm/dL Hct 23.3 L (39.0-53.0) % Plt Count 135 L (150-450) k/uL Lymphocytes # 0.4 L (1.0-4.8) k/uL Sodium 131 L (137-145) mmol/L Potassium 5.8 H (3.5-5.1) mmol/L BUN 51 H (9-20) mg/dL Creatinine 3.14 H (0.66-1.25) mg/dL Glucose 110 H (74-99) mg/dL POC Glucose (mg/dL) 121 H (70-110) mg/dL Calcium 7.4 L (8.4-10.2) mg/dL Magnesium 3.7 H (1.6-2.3) mg/dL AST 2217 H (17-59) U/L ALT 1006 H (4-49) U/L Total Protein 5.3 L (6.3-8.2) g/dL Albumin 3.4 L (3.5-5.0) g/dL 04/22/22 04/22/22 04/22/22 Range/Units 04:58 05:59 08:33 RBC (4.30-5.90) m/uL Hgb (13.0-17.5) gm/dL Hct (39.0-53.0) % Plt Count (150-450) k/uL Lymphocytes # (1.0-4.8) k/uL Sodium (137-145) mmol/L Potassium (3.5-5.1) mmol/L BUN (9-20) mg/dL Creatinine (0.66-1.25) mg/dL Glucose (74-99) mg/dL POC Glucose (mg/dL) 116 H 123 H 155 H (70-110) mg/dL Calcium (8.4-10.2) mg/dL Magnesium (1.6-2.3) mg/dL AST (17-59) U/L ALT (4-49) U/L Total Protein (6.3-8.2) g/dL Albumin (3.5-5.0) g/dL 04/22/22 04/22/22 04/22/22 Range/Units 09:32 11:12 11:57 RBC (4.30-5.90) m/uL Hgb (13.0-17.5) gm/dL Hct (39.0-53.0) % Plt Count (150-450) k/uL Lymphocytes # (1.0-4.8) k/uL Sodium (137-145) mmol/L Potassium (3.5-5.1) mmol/L BUN (9-20) mg/dL Creatinine (0.66-1.25) mg/dL Glucose (74-99) mg/dL POC Glucose (mg/dL) 144 H 173 H 162 H (70-110) mg/dL Calcium (8.4-10.2) mg/dL Magnesium (1.6-2.3) mg/dL AST (17-59) U/L ALT (4-49) U/L Total Protein (6.3-8.2) g/dL Albumin (3.5-5.0) g/dL Microbiology - Last 24 Hours (Table) 04/19/22 19:45 Gram Stain - Final Sputum Sputum Culture - Final Assessment and Plan Assessment: Coronary artery disease with valvular heart disease. Status post mitral valve repair, coronary bypass grafting 3 with an SVG to the first diagonal, obtuse marginal and posterior descending coronary arteries, closure of a PFO, modified Castanon-Maze procedure and litigation of the left atrial appendage. Postoperative day #3. Acute hypoxemic respiratory failure secondary to above, expected outcome of surgery, currently on 8 L nasal cannula and the patient did require BiPAP the evening of 04/20/2022. Paroxysmal atrial fibrillation. Chronic and ongoing tobacco dependence. Chronic obstructive pulmonary disease, FEV1 value of 52% of predicted, maintained on Trelegy and DuoNeb inhalations in the outpatient setting. Acute on chronic anemia, status post 2 units packed red blood cells is in remission. Osteoarthritis at multiple orthopedic surgeries. Diabetes mellitus. Hyperlipidemia. Plan: Plan dated 04/22/2022. The patient will absolutely not wearing the BiPAP device. The patient is on dopamine, Lasix drip, and insulin drip. Today is postop day #3. Labs, x-rays, and medications are reviewed. The patient's overall prognosis remains guarded. We will continue to follow and make recommendations along the way. The patient continues on DVT and GI prophylaxis. He continues on breathing treatments. Prognosis is guarded.
[2022-04-22 13:16] LABS: Glucose,Whole Blood 151 mg/dL (70-110)
[2022-04-22 14:21] LABS: Glucose,Whole Blood 135 mg/dL (70-110)
--- NOTE | 2022-04-22 15:20 | P.PN ---
Subjective Progress Note Date: 04/22/22 Patient is a pleasant 72-year-old male came in the for elective mitral valve repair, CABG x 3 vessel, maze procedure, PFO closure. Patient is extubated sitting in the chair patient still has a [place]-Varghese catheter, CVP of around 12, cardiac index 3.1 patient creatinine went up to 1.70 resulting elevated pot assium of 5.5 patient is off pressor support, off nitro drip patient still has 2 mediastinal and one left-sided chest tube. 04/21/2022 Patient is evaluated in ICU today, sitting up in chair. He is postoperative day #2 for elective mitral valve repair, hematocrit bypass grafting maze procedure and PFO closure. He is on BiPAP with fio2 of 40% Continues with mediastinal/left pleural chest tubes. Continue with indwelling catheter. Received dose of IV albumin yesterday afternoon. Chest xray today showing ongoing mild pulmonary vascular congestion, increasing patchy bibasilar opacities, atelectasis vs. pulmonary edema. Currently on lasix gtt at 10mls/hr, continues on dopamine gtt at 3.68 mls/hr. Continues on insulin gtt and blood glucose remains in the 140 to 130s. Labs today showing sodium 132, potassium 6.1 improved to 5.4, BUN 41, creatinine 2.53, elevated liver enzymes. Hgb 7.3. 04/22/2022 Patient continues to be monitored closely in intensive care unit, he is postoperative day #3 for elective mitral valve repair, maze procedure, PFO closure. Managed by primary team. He had limited echocardiogram completed showing EF 45 to 50%, mild to moderate MR, moderate pulmonary hypertension with moderate TR. Chest xray today shows slight improvement in pulmonary vascular congestion. Maintained on lasix gtt at 10mls/hr, dopamine gtt, Continues with 2 mediastinal chest tubes. Continues with indwelling catheter. Continues with right IJ swan/cordis, right radial arterial line. He has been weaned off BiPAP currently on high flow cannula at 15L. He has been tolerating some diet. Continues on insulin gtt which will continue until his diet stabilizes. Current glucose in the 140s. Creatinine today 3.14. Review of Systems Constitutional: Denied any fatigue denied any fever. Cardio vascular: denied any chest pain, palpitations Gastrointestinal: denied any nausea, vomiting, diarrhea Pulmonary: Denied any shortness of breath cough, reports incisional chest wall discomfort Neurologic denied any new focal deficits. Generalized weakness. All inpatient medications were reviewed and appropriate changes in these medications as dictated in the interval history and assessment and plan. PHYSICAL EXAMINATION: GENERAL: This a 72 year old male currently on High flow cannula monitored in ICU. HEENT: Pupils are round and equally reacting to light. EOMI. No scleral icterus. No conjunctival pallor. Normocephalic, atraumatic. No pharyngeal erythema. No thyromegaly. CARDIOVASCULAR: S1 and S2 present. No murmurs, rubs, or gallops. PULMONARY: Chest is clear to auscultation, no wheezing or crackles. Diminished. ABDOMEN: Soft, nontender, nondistended, normoactive bowel sounds. No palpable organomegaly. Mediastinal/left pleural chest tubes. Indwelling catheter. MUSCULOSKELETAL: No joint swelling or deformity. EXTREMITIES: No cyanosis, clubbing, or pedal edema. NEUROLOGICAL: Gross neurological examination did not reveal any focal deficits. SKIN: No rashes. Assessment and plan -Coronary artery disease mitral valvular disease status post CABG mitral valve repair. Postoperative Management is mainly by cardiothoracic surgery -Diabetes Mellitus type 2 with hyperglycemia, continuing hold oral diabetic agents, patient continues on insulin infusion. Once blood sugar improves and stable, patient tolerating diet will consider transition off insulin gtt. -Paroxysmal atrial fibrillation status post modified Castanon-Maze procedure, Patient is currently AV Paced -acute renal failure on chronic kidney disease stage II with renal failure is probably prerenal azotemia, -hyperkalemia secondary to acute renal failure currently 5.8. -Elevated transaminases -COPD without any acute exacerbation -Hyperlipidemia -History of coronary artery disease with previous PCI -Hx of GI bleed requiring blood transfusion in November of 2021 -Chronic nicotine dependence DVT prophylaxis: Patient is on subcutaneous heparin Full Code The impression and plan of care has been dictated by Celestina Marroquin Nurse Practitioner as directed. Dr. Ila MD I have performed a history and physical examination and medical decision making of this patient, discussed the same with the dictator, and agree with the dictators assessment and plan as written, documented as a scribe. Based on total visit time, I have performed more than 50% of this visit. Objective - Vital Signs Vital signs: Vital Signs Temp 99.1 F 04/22/22 08:00 Pulse 81 04/22/22 09:09 Resp 24 04/22/22 09:00 BP 94/60 04/22/22 09:00 Pulse Ox 97 04/22/22 09:06 FiO2 100 04/21/22 19:00 Intake & Output 04/21/22 04/22/22 04/22/22 18:59 06:59 18:59 Intake Total 1393.365 523.768 403.108 Output Total 395 530 85 Balance 998.365 -6.232 318.108 Weight 97.1 kg Intake: IV 448 438 58 NS 240 240 40 cardiac ooutput 100 90 pressure bags 108 108 18 Intake, IV Titration 145.365 85.768 105.108 Amount Dextrose/Water 1 250ml. 22 bag @ 2 MCG/KG/MIN 3.69 mls/hr IV .Q24H ZULMA with DOPamine DRIP 800 mg Rx#: [id number] Furosemide 100 mg In 114.250 76.333 90.833 Sodium Chloride 0.9% 90 ml @ 10 MG/HR 10 mls/hr IV .Q10H ZULMA Rx#: [id number] Insulin Regular 100 unit 9.115 9.435 14.275 In Sodium Chloride 0.9% 100 ml @ Per Protocol IV .Q0M ZULMA Rx#:[id number] Oral 800 240 Output: Chest Tube Drainage 180 140 30 left pleural 140 90 20 mediastinal x2 40 50 10 Urine 215 390 55 Other: Voiding Method Indwelling Catheter Indwelling Catheter ABP, PAP, CO, CI - Last Documented Arterial Blood Pressure 95/46 Pulmonary Artery Pressure 67/26 Cardiac Output 5.1 Cardiac Index 2.4 - Labs CBC & Chem 7: 04/22/22 04:00 04/22/22 04:00 Labs: Abnormal Lab Results - Last 24 Hours (Table) 04/21/22 04/21/22 04/21/22 Range/Units 10:27 11:17 12:12 RBC (4.30-5.90) m/uL Hgb (13.0-17.5) gm/dL Hct (39.0-53.0) % Plt Count (150-450) k/uL Lymphocytes # (1.0-4.8) k/uL Sodium (137-145) mmol/L Potassium (3.5-5.1) mmol/L BUN (9-20) mg/dL Creatinine (0.66-1.25) mg/dL Glucose (74-99) mg/dL POC Glucose (mg/dL) 138 H 118 H 145 H (70-110) mg/dL Calcium (8.4-10.2) mg/dL Magnesium (1.6-2.3) mg/dL AST (17-59) U/L ALT (4-49) U/L Total Protein (6.3-8.2) g/dL Albumin (3.5-5.0) g/dL 04/21/22 04/21/22 04/21/22 Range/Units 13:35 15:50 17:05 RBC (4.30-5.90) m/uL Hgb (13.0-17.5) gm/dL Hct (39.0-53.0) % Plt Count (150-450) k/uL Lymphocytes # (1.0-4.8) k/uL Sodium (137-145) mmol/L Potassium 6.2 H* (3.5-5.1) mmol/L BUN (9-20) mg/dL Creatinine (0.66-1.25) mg/dL Glucose (74-99) mg/dL POC Glucose (mg/dL) 130 H 141 H (70-110) mg/dL Calcium (8.4-10.2) mg/dL Magnesium (1.6-2.3) mg/dL AST (17-59) U/L ALT (4-49) U/L Total Protein (6.3-8.2) g/dL Albumin (3.5-5.0) g/dL 04/21/22 04/21/22 04/21/22 Range/Units 17:09 18:38 18:41 RBC (4.30-5.90) m/uL Hgb (13.0-17.5) gm/dL Hct (39.0-53.0) % Plt Count (150-450) k/uL Lymphocytes # (1.0-4.8) k/uL Sodium (137-145) mmol/L Potassium (3.5-5.1) mmol/L BUN (9-20) mg/dL Creatinine (0.66-1.25) mg/dL Glucose (74-99) mg/dL POC Glucose (mg/dL) 151 H 403 H 378 H (70-110) mg/dL Calcium (8.4-10.2) mg/dL Magnesium (1.6-2.3) mg/dL AST (17-59) U/L ALT (4-49) U/L Total Protein (6.3-8.2) g/dL Albumin (3.5-5.0) g/dL 04/21/22 04/21/22 04/21/22 Range/Units 20:03 21:08 21:50 RBC (4.30-5.90) m/uL Hgb (13.0-17.5) gm/dL Hct (39.0-53.0) % Plt Count (150-450) k/uL Lymphocytes # (1.0-4.8) k/uL Sodium (137-145) mmol/L Potassium 5.6 H (3.5-5.1) mmol/L BUN (9-20) mg/dL Creatinine (0.66-1.25) mg/dL Glucose (74-99) mg/dL POC Glucose (mg/dL) 168 H 159 H (70-110) mg/dL Calcium (8.4-10.2) mg/dL Magnesium (1.6-2.3) mg/dL AST (17-59) U/L ALT (4-49) U/L Total Protein (6.3-8.2) g/dL Albumin (3.5-5.0) g/dL 04/21/22 04/21/22 04/21/22 Range/Units 21:52 23:04 23:56 RBC (4.30-5.90) m/uL Hgb (13.0-17.5) gm/dL Hct (39.0-53.0) % Plt Count (150-450) k/uL Lymphocytes # (1.0-4.8) k/uL Sodium (137-145) mmol/L Potassium (3.5-5.1) mmol/L BUN (9-20) mg/dL Creatinine (0.66-1.25) mg/dL Glucose (74-99) mg/dL POC Glucose (mg/dL) 160 H 147 H 149 H (70-110) mg/dL Calcium (8.4-10.2) mg/dL Magnesium (1.6-2.3) mg/dL AST (17-59) U/L ALT (4-49) U/L Total Protein (6.3-8.2) g/dL Albumin (3.5-5.0) g/dL 04/22/22 04/22/22 04/22/22 Range/Units 01:07 01:59 03:01 RBC (4.30-5.90) m/uL Hgb (13.0-17.5) gm/dL Hct (39.0-53.0) % Plt Count (150-450) k/uL Lymphocytes # (1.0-4.8) k/uL Sodium (137-145) mmol/L Potassium (3.5-5.1) mmol/L BUN (9-20) mg/dL Creatinine (0.66-1.25) mg/dL Glucose (74-99) mg/dL POC Glucose (mg/dL) 145 H 135 H 125 H (70-110) mg/dL Calcium (8.4-10.2) mg/dL Magnesium (1.6-2.3) mg/dL AST (17-59) U/L ALT (4-49) U/L Total Protein (6.3-8.2) g/dL Albumin (3.5-5.0) g/dL 04/22/22 04/22/22 04/22/22 Range/Units 03:59 04:00 04:00 RBC 2.35 L (4.30-5.90) m/uL Hgb 7.4 L (13.0-17.5) gm/dL Hct 23.3 L (39.0-53.0) % Plt Count 135 L (150-450) k/uL Lymphocytes # 0.4 L (1.0-4.8) k/uL Sodium 131 L (137-145) mmol/L Potassium 5.8 H (3.5-5.1) mmol/L BUN 51 H (9-20) mg/dL Creatinine 3.14 H (0.66-1.25) mg/dL Glucose 110 H (74-99) mg/dL POC Glucose (mg/dL) 121 H (70-110) mg/dL Calcium 7.4 L (8.4-10.2) mg/dL Magnesium 3.7 H (1.6-2.3) mg/dL AST 2217 H (17-59) U/L ALT 1006 H (4-49) U/L Total Protein 5.3 L (6.3-8.2) g/dL Albumin 3.4 L (3.5-5.0) g/dL 04/22/22 04/22/22 04/22/22 Range/Units 04:58 05:59 08:33 RBC (4.30-5.90) m/uL Hgb (13.0-17.5) gm/dL Hct (39.0-53.0) % Plt Count (150-450) k/uL Lymphocytes # (1.0-4.8) k/uL Sodium (137-145) mmol/L Potassium (3.5-5.1) mmol/L BUN (9-20) mg/dL Creatinine (0.66-1.25) mg/dL Glucose (74-99) mg/dL POC Glucose (mg/dL) 116 H 123 H 155 H (70-110) mg/dL Calcium (8.4-10.2) mg/dL Magnesium (1.6-2.3) mg/dL AST (17-59) U/L ALT (4-49) U/L Total Protein (6.3-8.2) g/dL Albumin (3.5-5.0) g/dL 04/22/22 Range/Units 09:32 RBC (4.30-5.90) m/uL Hgb (13.0-17.5) gm/dL Hct (39.0-53.0) % Plt Count (150-450) k/uL Lymphocytes # (1.0-4.8) k/uL Sodium (137-145) mmol/L Potassium (3.5-5.1) mmol/L BUN (9-20) mg/dL Creatinine (0.66-1.25) mg/dL Glucose (74-99) mg/dL POC Glucose (mg/dL) 144 H (70-110) mg/dL Calcium (8.4-10.2) mg/dL Magnesium (1.6-2.3) mg/dL AST (17-59) U/L ALT (4-49) U/L Total Protein (6.3-8.2) g/dL Albumin (3.5-5.0) g/dL Assessment and Plan Time with Patient: Less than 30
[2022-04-22 15:25] LABS: Glucose,Whole Blood 178 mg/dL (70-110)
[2022-04-22] MEDS: DEXTROSE/WATER 1 250ML.BAG with DOPamine DRIP 800 MG IV SCH (16:38)
[2022-04-22 16:42] LABS: Glucose,Whole Blood 175 mg/dL (70-110)
[2022-04-22 17:29] LABS: Glucose,Whole Blood 176 mg/dL (70-110)
[2022-04-22 17:52] LABS: Glucose,Whole Blood 140 mg/dL (70-110)
[2022-04-22 19:06] LABS: Glucose,Whole Blood 177 mg/dL (70-110)
[2022-04-22 19:56] LABS: Glucose,Whole Blood 167 mg/dL (70-110)
[2022-04-22 20:13] LABS: ABG HCO3 20 mmol/L (21-25); ABG Oxygen Saturation 99.6 % (94-97); ABG PCO2 47 mmHg (35-45); ABG PH 7.23 (7.35-7.45); ABG PO2 149 mmHg (83-108); ABG TCO2 21 mmol/L (19-24); Allen Test Performed? Yes
[2022-04-22] MEDS ORDERED: SODIUM BICARB 8.4% 50 ML SYR (1 MEQ/ML) IV STA ×3 (20:20→22:07)
[2022-04-22] MEDS: SENNOSIDES-DOCUSATE SODIUM 1 EACH TAB PO SCH (20:38)
[2022-04-22 21:03] LABS: Glucose,Whole Blood 144 mg/dL (70-110)
[2022-04-22 21:58] LABS: ABG Base Excess -3.7 mmol/L; ABG HCO3 23 mmol/L (21-25); ABG PCO2 49 mmHg (35-45); ABG PH 7.28 (7.35-7.45); ABG PO2 162 mmHg (83-108); ABG TCO2 24 mmol/L (19-24); Allen Test Performed? Yes
[2022-04-22 21:59] LABS: Glucose,Whole Blood 131 mg/dL (70-110)
[2022-04-22 23:10] LABS: Glucose,Whole Blood 126 mg/dL (70-110)
[2022-04-23 00:07] LABS: Glucose,Whole Blood 122 mg/dL (70-110)
--- NOTE | 2022-04-23 00:53 | PN ---
PROGRESS NOTE SUBJECTIVE: Derek is a 72-year-old gentleman who has coronary artery disease, severe mitral regurgitation, patent foramen ovale, and underwent surgery for the same. His postop course is complicated by blood loss anemia, acute worsening of underlying renal failure, and elevated liver enzymes. MEDICATIONS: The patient is currently on, 1. Aspirin. 2. Renal dose dopamine. 3. Lasix drip. An echocardiogram I repeated yesterday showed an ejection fraction of 45% to 50% with [id number] mitral regurgitation, moderate tricuspid regurgitation, and pulmonary hypertension. OBJECTIVE: VITAL SIGNS: Heart rate is 80 beats per minute. Blood pressure is 114/64, respiratory rate is 18, PA pressure is 64 mm. His O2 saturation is 96% on 6 L. CHEST: Reveals diminished air entry at the bases. HEART: Reveals first and second heart sounds. No gallop. No murmur. EXTREMITIES: Reveals 1+ edema. Peripheral pulses are felt. LABS: Show a hemoglobin of 7.4, platelet count is 135. He is in renal failure with a BUN of 51, creatinine of 3.1, and potassium of 5.8. ASSESSMENT: 1. Coronary artery disease, status post coronary artery bypass graft. 2. Severe mitral regurgitation, status post mitral valve repair. 3. Acute respiratory failure. 4. Acute renal failure. 5. Paroxysmal atrial fibrillation. PLAN: Continue the patient on Lasix drip. MMODL / IJN: [id number] /
[2022-04-23 00:55] LABS: Glucose,Whole Blood 125 mg/dL (70-110)
--- NOTE | 2022-04-23 01:35 | PN ---
PROGRESS NOTE DATE OF SERVICE: 04/21/2022 SUBJECTIVE: The patient was seen in the ICU. He has known coronary artery disease, severe mitral regurgitation, atrial fibrillation along with PFO, and underwent bypass surgery with mitral valve repair and closure of the PFO along with left atrial appendage occlusion. The patient had an ejection fraction of 40% to 45% prior to surgery. He developed multiple issues postoperatively including hypotension, respiratory insufficiency requiring BiPAP support, and the patient had been started on Lasix drip along with dopamine. He is alert, awake, and is able to answer questions. OBJECTIVE: GENERAL: On exam, remained in sinus rhythm, has severe pulmonary hypertension, maintaining blood pressure. CHEST: Reveals diminished air entry at the bases. HEART: Reveals first and second heart sounds, and a systolic murmur at the apex. ABDOMEN: Soft. EXTREMITIES: Reveals mild edema. ASSESSMENT: 1. Coronary artery disease, status post coronary artery bypass graft. 2. Mitral regurgitation, status post mitral valve repair. 3. Patent foramen ovale closure. PLAN: Given the unexplained hypotension and respiratory failure, I will obtain a limited echo on him to reassess his LV function and the mitral regurgitation. MMODL / IJN: [id number] /
[2022-04-23 01:59] LABS: Glucose,Whole Blood 121 mg/dL (70-110)
[2022-04-23 03:06] LABS: Glucose,Whole Blood 119 mg/dL (70-110)
[2022-04-23 04:04] LABS: Glucose,Whole Blood 116 mg/dL (70-110)
[2022-04-23 04:17] LABS: HGB 7.5 gm/dL (13.0-17.5); Hypochromasia Marked; MCH 32.3 pg (25.0-35.0); MCHC 32.7 g/dL (31.0-37.0); MCV 98.6 fL (80.0-100.0); Macrocytosis Slight; Mean Platelet Volume 10.5; Platelet Count 111 k/uL (150-450); Poikilocytosis Slight; RBC 2.33 m/uL (4.30-5.90); RDW 15.5 % (11.5-15.5)
[2022-04-23 04:30] LABS: Albumin 3.2 g/dL (3.5-5.0); Calcium 7.5 mg/dL (8.4-10.2); Magnesium 3.7 mg/dL (1.6-2.3); Total Bilirubin 0.9 mg/dL (0.2-1.3); Total Protein 5.2 g/dL (6.3-8.2)
[2022-04-23 05:10] LABS: Glucose,Whole Blood 115 mg/dL (70-110)
[2022-04-23 05:39] LABS: Band Neutrophils % 1 %; Eosinophils # (M) 0.33 k/uL (0-0.7); Lymphocytes # (M) 0.41 k/uL (1.0-4.8); Metamyelocytes # (M) 0.08 k/uL (0); Metamyelocytes % 1 %; Monocytes # (M) 1.07 k/uL (0-1.0); Myelocytes # (M) 0.08 k/uL (0); Myelocytes % 1 %; Neutrophils % (M) 77 %; Nucleated Red Blood Cells 2 /100 WBC (0-0); Polychromasia Present; Total Cells Counted 200; WBC 8.2 k/uL (3.8-10.6)
[2022-04-23 05:54] LABS: ABG Base Excess -3.9 mmol/L; ABG HCO3 23 mmol/L (21-25); ABG Oxygen Saturation 97.7 % (94-97); ABG PCO2 48 mmHg (35-45); ABG PH 7.28 (7.35-7.45); ABG PO2 95 mmHg (83-108); ABG TCO2 24 mmol/L (19-24); Allen Test Performed? Yes
[2022-04-23 06:08] LABS: Glucose,Whole Blood 119 mg/dL (70-110)
[2022-04-23 06:54] LABS: Glucose,Whole Blood 110 mg/dL (70-110)
[2022-04-23] MEDS ORDERED: traMADol 50 MG TAB PO PRN ×2 (07:01→08:14)
[2022-04-23] MEDS ORDERED: SODIUM ZIRCONIUM CYCLOSILICATE 10 GM PACKET PO ONE (07:30)
[2022-04-23] MEDS: IPRATROPIUM-ALBUTEROL 3 ML NEB INHALATION SCH ×4 (07:33→20:32)
[2022-04-23] MEDS: SYMBICORT 160-4.5 MCG INHALER INHALATION SCH ×2 (07:33→20:32)
--- NOTE | 2022-04-23 07:45 | CONS ---
CONSULTATION HISTORY OF PRESENT ILLNESS: Derek is a 72-year-old gentleman who underwent bypass along with mitral valve repair, had patent foraminal ovale that had been repaired. He has an ejection fraction of around 40%-45%. The patient also had a modified Castanon procedure in the ED. PHYSICAL EXAMINATION: VITAL SIGNS: Heart rate is 80 beats per minute, blood pressure is 91/55, and respiratory rate is 18. NECK: There is no jugular venous distention. CHEST: Reveals diminished air entry bilaterally. There are no rhonchi. HEART: Reveals first and second heart sounds, irregular rhythm. ABDOMEN: Soft. EXTREMITIES: Reveal bilateral 1+ pitting edema. LABORATORIES: Show a hemoglobin of 7.3, BUN is 41, creatinine is 2.5. ASSESSMENT: 1. Coronary artery disease, status post coronary artery bypass graft. 2. Mitral regurgitation, status post mitral valve repair. 3. Patent foramen ovale, status post closure. 4. Acute worsening of chronic renal failure. 5. Paroxysmal atrial fibrillation. 6. Hypotension. PLAN: The patient will continue with current medications. Continue with the supportive care. MMODL / IJN: [id number] /
[2022-04-23] MEDS ORDERED: [UNRECOGNIZED DRUG - REMARK] PO PRN (07:47)
[2022-04-23] MEDS: HEPARIN SODIUM,PORCINE/PF 5,000 UNIT/0.5 ML SYRINGE SQ SCH ×2 (07:59→16:14)
[2022-04-23 08:14] LABS: Glucose,Whole Blood 128 mg/dL (70-110)
[2022-04-23] MEDS: FUROSEMIDE 100 MG in SODIUM CHLORIDE 0.9% 90 ML IV SCH (08:31)
[2022-04-23] MEDS: ISOSORBIDE MONONITRATE ER 15 MG TAB PO SCH (08:33)
[2022-04-23] MEDS: FERROUS SULFATE 325 MG TAB PO SCH ×2 (08:33→20:40)
[2022-04-23] MEDS: ASPIRIN 325 MG TAB PO SCH (08:33)
[2022-04-23] MEDS: CLOPIDOGREL 75 MG TAB PO SCH (08:33)
[2022-04-23] MEDS: ASCORBIC ACID 500 MG TAB PO SCH (08:33)
--- NOTE | 2022-04-23 08:38 | P.PN ---
Subjective Progress Note Date: 04/23/22 Principal diagnosis: Severe mitral valve regurgitation, coronary artery disease, paroxysmal atrial fibrillation, patent foramen ovale, tricuspid regurgitation, chronic systolic congestive heart failure. Previous medical history of hypertension, hyperlipidemia, coronary artery disease with history of previous PCI, non-ST elevated myocardial infarction in November 2021, ischemic cardiomyopathy with EF 40- 45%, right internal carotid stenosis 50-79%, renal insufficiency, anemia with history of GI bleed in November 2021 S/P transfusion PRBCs, diabetes mellitus type 2, osteoarthritis, severe COPD, chronic ongoing nicotine dependence, remote history of pneumonia, chronic low back pain and hearing disorder. Nasal swab positive for MSSA preoperative POD #4 Mitral valve repair with 28 mm physio-2 ring, CABG 3 with saphenous vein grafts to first diagonal, obtuse marginal, posterior descending coronary arteries, closure of PFO, endovascular vein harvest, modified Castanon maze procedure with full left-sided lesion set and ligation of the left atrial appendage, SCOTT by anesthesia. Protamine reaction intraoperative Postoperative acute blood loss anemia, expected given his history of anemia, hemodilution and cardiopulmonary bypass Acute on chronic kidney failure, likely from hypotension from intraoperative protamine reaction Elevated transaminases, likely from hypotension from intraoperative protamine reaction The patient was seen and examined this morning sitting up in a recliner in the intensive care unit in no acute distress. Remains AV paced at 80 bpm, underlying rhythm sinus in the 70s, blood pressure actually improved without pacing. Currently on 5 L high flow nasal cannula with oxygen saturation in the high 90s, only able to achieve 750 mL on his incentive spirometer. States pain is controlled on current medication regimen, denies shortness of breath, appears a bit sleepy today. The patient was quite restless yesterday afternoon, sitter ordered, ABGs ordered, patient was acidotic and was given bicarb IV. Urine output has picked up. Remains on IV Lasix and dopamine, no beta blockers were given yesterday. Labs and chest x-ray reviewed. Right internal jugular [place]/Cordis, right radial arterial line all remain. Objective - Vital Signs Vital signs: Vital Signs Temp 98.4 F 04/23/22 04:00 Pulse 74 04/23/22 07:43 Resp 18 04/23/22 07:43 BP 110/63 04/23/22 07:00 Pulse Ox 100 04/23/22 07:00 FiO2 100 04/22/22 16:00 Intake & Output 04/22/22 04/23/22 04/23/22 18:59 06:59 18:59 Intake Total 1068.915 591.882 Output Total 550 715 Balance 518.915 -123.118 Weight 99.3 kg Intake: IV 388 477 NS 240 260 cardiac ooutput 40 100 pressure bags 108 117 Intake, IV Titration 200.915 114.882 Amount Furosemide 100 mg In 165.833 87.333 Sodium Chloride 0.9% 90 ml @ 10 MG/HR 10 mls/hr IV .Q10H ZULMA Rx#: [id number] Insulin Regular 100 unit 35.082 27.549 In Sodium Chloride 0.9% 100 ml @ Per Protocol IV .Q0M ZULMA Rx#:[id number] Oral 480 Output: Chest Tube Drainage 50 left pleural 40 mediastinal x2 10 Urine 500 715 Other: Voiding Method Indwelling Catheter Indwelling Catheter ABP, PAP, CO, CI - Last Documented Arterial Blood Pressure 88/41 Pulmonary Artery Pressure 59/25 Cardiac Output 4.7 Cardiac Index 2.2 - Exam CONSTITUTIONAL: Appears comfortable, cooperative, very hard of hearing RESPIRATORY: Lungs sounds diminished bilaterally. Respirations even, nonlabored. Currently on 5 L high flow nasal cannula with oxygen saturation 99%. Able to achieve 750 mL on incentive spirometry. Strong nonproductive cough. CARDIOVASCULAR: S1, S2 present. Regular rate and rhythm, AV paced at 80 bpm, underlying rhythm sinus rhythm in the 70s on telemetry. Sternum stable. Palpable peripheral pulses bilaterally. Generalized edema present. No calf pain or tenderness noted. Heart hugger in place. Antiembolism stockings, SCDs present. GASTROINTESTINAL: Abdomen soft, nontender, nondistended. Tympanic to percussi on. Active bowel sounds present 4 quadrants. Tolerating minimal diet. Positive flatus GENITOURINARY: Mooney present draining clear, yellow urine. Output overnight 35-80 mL per hour, 1170 mL in the last 24 hours INTEGUMENTARY: Skin is warm and dry with evidence of good perfusion. Anterior chest incision well approximated and covered with dry intact dressing. Bilateral EVH site well approximated without redness or drainage. NEUROLOGIC: Cranial nerves II through XII intact MUSKULOSKELETAL: Able to move all extremities, strength equal bilaterally PSYCHIATRIC: Oriented to person place and time, appears a bit sleepy today, less agitated INVASIVE LINES AND TUBES: A/V epicardial pacemaker wires present, connected to generator, DDD mode with rate 80 bpm. Right internal jugular [place]/Cordis, right radial arterial line present. Last CO/CI 4.7/2.2, PA 62/20, CVP 14. - Allied health notes Allied health notes reviewed: nursing - Labs CBC & Chem 7: 04/23/22 04:00 04/23/22 04:00 Labs: Abnormal Lab Results - Last 24 Hours (Table) 04/22/22 04/22/22 04/22/22 Range/Units 08:33 09:32 11:12 RBC (4.30-5.90) m/uL Hgb (13.0-17.5) gm/dL Hct (39.0-53.0) % Plt Count (150-450) k/uL Lymphocytes # (Manual) (1.0-4.8) k/uL Monocytes # (Manual) (0-1.0) k/uL Metamyelocytes # (Man) (0) k/uL Myelocytes # (Manual) (0) k/uL Nucleated RBCs (0-0) /100 WBC ABG pH (7.35-7.45) ABG pCO2 (35-45) mmHg ABG pO2 (83-108) mmHg ABG HCO3 (21-25) mmol/L ABG O2 Saturation (94-97) % Sodium (137-145) mmol/L Potassium (3.5-5.1) mmol/L BUN (9-20) mg/dL Creatinine (0.66-1.25) mg/dL Glucose (74-99) mg/dL POC Glucose (mg/dL) 155 H 144 H 173 H (70-110) mg/dL Calcium (8.4-10.2) mg/dL Magnesium (1.6-2.3) mg/dL AST (17-59) U/L ALT (4-49) U/L Total Protein (6.3-8.2) g/dL Albumin (3.5-5.0) g/dL 04/22/22 04/22/22 04/22/22 Range/Units 11:57 13:15 14:19 RBC (4.30-5.90) m/uL Hgb (13.0-17.5) gm/dL Hct (39.0-53.0) % Plt Count (150-450) k/uL Lymphocytes # (Manual) (1.0-4.8) k/uL Monocytes # (Manual) (0-1.0) k/uL Metamyelocytes # (Man) (0) k/uL Myelocytes # (Manual) (0) k/uL Nucleated RBCs (0-0) /100 WBC ABG pH (7.35-7.45) ABG pCO2 (35-45) mmHg ABG pO2 (83-108) mmHg ABG HCO3 (21-25) mmol/L ABG O2 Saturation (94-97) % Sodium (137-145) mmol/L Potassium (3.5-5.1) mmol/L BUN (9-20) mg/dL Creatinine (0.66-1.25) mg/dL Glucose (74-99) mg/dL POC Glucose (mg/dL) 162 H 151 H 135 H (70-110) mg/dL Calcium (8.4-10.2) mg/dL Magnesium (1.6-2.3) mg/dL AST (17-59) U/L ALT (4-49) U/L Total Protein (6.3-8.2) g/dL Albumin (3.5-5.0) g/dL 04/22/22 04/22/22 04/22/22 Range/Units 15:23 16:41 17:27 RBC (4.30-5.90) m/uL Hgb (13.0-17.5) gm/dL Hct (39.0-53.0) % Plt Count (150-450) k/uL Lymphocytes # (Manual) (1.0-4.8) k/uL Monocytes # (Manual) (0-1.0) k/uL Metamyelocytes # (Man) (0) k/uL Myelocytes # (Manual) (0) k/uL Nucleated RBCs (0-0) /100 WBC ABG pH (7.35-7.45) ABG pCO2 (35-45) mmHg ABG pO2 (83-108) mmHg ABG HCO3 (21-25) mmol/L ABG O2 Saturation (94-97) % Sodium (137-145) mmol/L Potassium (3.5-5.1) mmol/L BUN (9-20) mg/dL Creatinine (0.66-1.25) mg/dL Glucose (74-99) mg/dL POC Glucose (mg/dL) 178 H 175 H 176 H (70-110) mg/dL Calcium (8.4-10.2) mg/dL Magnesium (1.6-2.3) mg/dL AST (17-59) U/L ALT (4-49) U/L Total Protein (6.3-8.2) g/dL Albumin (3.5-5.0) g/dL 04/22/22 04/22/22 04/22/22 Range/Units 17:51 19:05 19:54 RBC (4.30-5.90) m/uL Hgb (13.0-17.5) gm/dL Hct (39.0-53.0) % Plt Count (150-450) k/uL Lymphocytes # (Manual) (1.0-4.8) k/uL Monocytes # (Manual) (0-1.0) k/uL Metamyelocytes # (Man) (0) k/uL Myelocytes # (Manual) (0) k/uL Nucleated RBCs (0-0) /100 WBC ABG pH (7.35-7.45) ABG pCO2 (35-45) mmHg ABG pO2 (83-108) mmHg ABG HCO3 (21-25) mmol/L ABG O2 Saturation (94-97) % Sodium (137-145) mmol/L Potassium (3.5-5.1) mmol/L BUN (9-20) mg/dL Creatinine (0.66-1.25) mg/dL Glucose (74-99) mg/dL POC Glucose (mg/dL) 140 H 177 H 167 H (70-110) mg/dL Calcium (8.4-10.2) mg/dL Magnesium (1.6-2.3) mg/dL AST (17-59) U/L ALT (4-49) U/L Total Protein (6.3-8.2) g/dL Albumin (3.5-5.0) g/dL 04/22/22 04/22/22 04/22/22 Range/Units 20:10 21:02 21:55 RBC (4.30-5.90) m/uL Hgb (13.0-17.5) gm/dL Hct (39.0-53.0) % Plt Count (150-450) k/uL Lymphocytes # (Manual) (1.0-4.8) k/uL Monocytes # (Manual) (0-1.0) k/uL Metamyelocytes # (Man) (0) k/uL Myelocytes # (Manual) (0) k/uL Nucleated RBCs (0-0) /100 WBC ABG pH 7.23 L 7.28 L (7.35-7.45) ABG pCO2 47 H 49 H (35-45) mmHg ABG pO2 149 H 162 H (83-108) mmHg ABG HCO3 20 L (21-25) mmol/L ABG O2 Saturation 99.6 H 100.0 H (94-97) % Sodium (137-145) mmol/L Potassium (3.5-5.1) mmol/L BUN (9-20) mg/dL Creatinine (0.66-1.25) mg/dL Glucose (74-99) mg/dL POC Glucose (mg/dL) 144 H (70-110) mg/dL Calcium (8.4-10.2) mg/dL Magnesium (1.6-2.3) mg/dL AST (17-59) U/L ALT (4-49) U/L Total Protein (6.3-8.2) g/dL Albumin (3.5-5.0) g/dL 04/22/22 04/22/22 04/23/22 Range/Units 21:57 23:09 00:06 RBC (4.30-5.90) m/uL Hgb (13.0-17.5) gm/dL Hct (39.0-53.0) % Plt Count (150-450) k/uL Lymphocytes # (Manual) (1.0-4.8) k/uL Monocytes # (Manual) (0-1.0) k/uL Metamyelocytes # (Man) (0) k/uL Myelocytes # (Manual) (0) k/uL Nucleated RBCs (0-0) /100 WBC ABG pH (7.35-7.45) ABG pCO2 (35-45) mmHg ABG pO2 (83-108) mmHg ABG HCO3 (21-25) mmol/L ABG O2 Saturation (94-97) % Sodium (137-145) mmol/L Potassium (3.5-5.1) mmol/L BUN (9-20) mg/dL Creatinine (0.66-1.25) mg/dL Glucose (74-99) mg/dL POC Glucose (mg/dL) 131 H 126 H 122 H (70-110) mg/dL Calcium (8.4-10.2) mg/dL Magnesium (1.6-2.3) mg/dL AST (17-59) U/L ALT (4-49) U/L Total Protein (6.3-8.2) g/dL Albumin (3.5-5.0) g/dL 04/23/22 04/23/22 04/23/22 Range/Units 00:53 01:58 03:04 RBC (4.30-5.90) m/uL Hgb (13.0-17.5) gm/dL Hct (39.0-53.0) % Plt Count (150-450) k/uL Lymphocytes # (Manual) (1.0-4.8) k/uL Monocytes # (Manual) (0-1.0) k/uL Metamyelocytes # (Man) (0) k/uL Myelocytes # (Manual) (0) k/uL Nucleated RBCs (0-0) /100 WBC ABG pH (7.35-7.45) ABG pCO2 (35-45) mmHg ABG pO2 (83-108) mmHg ABG HCO3 (21-25) mmol/L ABG O2 Saturation (94-97) % Sodium (137-145) mmol/L Potassium (3.5-5.1) mmol/L BUN (9-20) mg/dL Creatinine (0.66-1.25) mg/dL Glucose (74-99) mg/dL POC Glucose (mg/dL) 125 H 121 H 119 H (70-110) mg/dL Calcium (8.4-10.2) mg/dL Magnesium (1.6-2.3) mg/dL AST (17-59) U/L ALT (4-49) U/L Total Protein (6.3-8.2) g/dL Albumin (3.5-5.0) g/dL 04/23/22 04/23/22 04/23/22 Range/Units 04:00 04:00 04:02 RBC 2.33 L (4.30-5.90) m/uL Hgb 7.5 L (13.0-17.5) gm/dL Hct 23.0 L (39.0-53.0) % Plt Count 111 L (150-450) k/uL Lymphocytes # (Manual) 0.41 L (1.0-4.8) k/uL Monocytes # (Manual) 1.07 H (0-1.0) k/uL Metamyelocytes # (Man) 0.08 H (0) k/uL Myelocytes # (Manual) 0.08 H (0) k/uL Nucleated RBCs 2 H (0-0) /100 WBC ABG pH (7.35-7.45) ABG pCO2 (35-45) mmHg ABG pO2 (83-108) mmHg ABG HCO3 (21-25) mmol/L ABG O2 Saturation (94-97) % Sodium 135 L (137-145) mmol/L Potassium 6.0 H (3.5-5.1) mmol/L BUN 67 H (9-20) mg/dL Creatinine 3.43 H (0.66-1.25) mg/dL Glucose 108 H (74-99) mg/dL POC Glucose (mg/dL) 116 H (70-110) mg/dL Calcium 7.5 L (8.4-10.2) mg/dL Magnesium 3.7 H (1.6-2.3) mg/dL AST 3595 H (17-59) U/L ALT 1512 H (4-49) U/L Total Protein 5.2 L (6.3-8.2) g/dL Albumin 3.2 L (3.5-5.0) g/dL 04/23/22 04/23/22 04/23/22 Range/Units 05:08 05:50 06:07 RBC (4.30-5.90) m/uL Hgb (13.0-17.5) gm/dL Hct (39.0-53.0) % Plt Count (150-450) k/uL Lymphocytes # (Manual) (1.0-4.8) k/uL Monocytes # (Manual) (0-1.0) k/uL Metamyelocytes # (Man) (0) k/uL Myelocytes # (Manual) (0) k/uL Nucleated RBCs (0-0) /100 WBC ABG pH 7.28 L (7.35-7.45) ABG pCO2 48 H (35-45) mmHg ABG pO2 (83-108) mmHg ABG HCO3 (21-25) mmol/L ABG O2 Saturation 97.7 H (94-97) % Sodium (137-145) mmol/L Potassium (3.5-5.1) mmol/L BUN (9-20) mg/dL Creatinine (0.66-1.25) mg/dL Glucose (74-99) mg/dL POC Glucose (mg/dL) 115 H 119 H (70-110) mg/dL Calcium (8.4-10.2) mg/dL Magnesium (1.6-2.3) mg/dL AST (17-59) U/L ALT (4-49) U/L Total Protein (6.3-8.2) g/dL Albumin (3.5-5.0) g/dL 04/23/22 Range/Units 08:12 RBC (4.30-5.90) m/uL Hgb (13.0-17.5) gm/dL Hct (39.0-53.0) % Plt Count (150-450) k/uL Lymphocytes # (Manual) (1.0-4.8) k/uL Monocytes # (Manual) (0-1.0) k/uL Metamyelocytes # (Man) (0) k/uL Myelocytes # (Manual) (0) k/uL Nucleated RBCs (0-0) /100 WBC ABG pH (7.35-7.45) ABG pCO2 (35-45) mmHg ABG pO2 (83-108) mmHg ABG HCO3 (21-25) mmol/L ABG O2 Saturation (94-97) % Sodium (137-145) mmol/L Potassium (3.5-5.1) mmol/L BUN (9-20) mg/dL Creatinine (0.66-1.25) mg/dL Glucose (74-99) mg/dL POC Glucose (mg/dL) 128 H (70-110) mg/dL Calcium (8.4-10.2) mg/dL Magnesium (1.6-2.3) mg/dL AST (17-59) U/L ALT (4-49) U/L Total Protein (6.3-8.2) g/dL Albumin (3.5-5.0) g/dL Microbiology - Last 24 Hours (Table) 04/19/22 19:45 Gram Stain - Final Sputum Sputum Culture - Final - Imaging and Cardiology Chest x-ray: image reviewed Assessment and Plan Assessment: 1. Severe mitral valve regurgitation, status post mitral valve repair 2. Coronary artery disease, previous PCI, previous non-STEMI, status post CABG 3 3. History of paroxysmal atrial fibrillation, previous cardioversion, on Eliquis outpatient for anticoagulation, status post modified Castanon maze and ligation of left atrial appendage 4. Patent foramen ovale, status post closure 5. Tricuspid regurgitation 6. Chronic systolic congestive heart failure, ischemic cardiomyopathy with EF 40-45% 7. History of hypertension 8. History hyperlipidemia, treated, cholesterol 150, LDL 72 9. Right internal carotid stenosis 50-79% 10. Anemia with history of GI bleed in November 2021 S/P transfusion PRBCs 11. Acute on chronic renal failure, baseline creatinine 1.28-1.6 12. Diabetes mellitus type 2, preoperative hemoglobin A1c 5.6% 13. Osteoarthritis 14. Severe COPD, preoperative FEV1 41% of predicted 15. Chronic ongoing nicotine dependence 16. Remote history of pneumonia 17. Chronic low back pain, hearing disorder 18. Nasal swab positive for MSSA preoperative 19. Postoperative acute blood loss anemia, expected 20. Elevated transaminases 21. Protamine reaction intraoperative Plan: 1. Continue aspirin, Plavix. Hold BB today. Statin on hold due to elevated LFT. Initiate low-dose Imdur for pulmonary artery hypertension 2. Amiodarone discontinued due to elevated LFTs. No anticoagulation until after all lines and tubes have been discontinued, likely will discharge home on Eliquis 3. Will wean dopamine, decrease IV Lasix to 5 mg per hour 4. Wean O2 as tolerated. Encourage incentive spirometry 10 times every hour while awake. Bronchodilators, BiPAP per pulmonology 5. Increase activity, ambulate as tolerated. PT/OT/cardiac rehab following 6. Will monitor daily labs and chest x-rays. Electronic replacement per protocol. Avoid hepatotoxic and nephrotoxic medications. Will give lokelma for hyperkalemia 7. GI/DVT prophylaxis. 8. Insulin management per primary care service. Patient is a diabetic with a preoperative hemoglobin A1c of 5.6% on multiple oral medications, needs tight blood sugar control 9. Pain control with current medication regimen. 10. Likely will discontinue [place]/Cordis, arterial line later today 11. Continue Mooney catheter for another 24 hours for strict accurate intake and output. 12. Place external pacemaker to a backup rate 50 bpm 13. Daily weights. 14. Smoking cessation counseling and education provided to patient and family 15. More recommendations to follow based on patient's clinical course.
--- NOTE | 2022-04-23 08:52 | P.PN ---
Subjective Progress Note Date: 04/23/22 The patient is a 72-year-old male who is currently admitted to the hospital after undergoing CABG 3 with mitral valve repair and PFO closure on April 19. Postoperative complications include acute kidney injury, hypotension, and respiratory insufficiency requiring BiPAP. The patient is currently on a dopamine drip and Lasix drip. The patient was interviewed and examined resting comfortably in the recliner. He states he currently has no difficulty breathing and denies any pain. GENERAL: Ill-appearing, well-nourished and in no acute distress. NECK: Supple without JVD or thyromegaly. LUNGS: Breath sounds diminished to auscultation bilaterally. Respiration equal and unlabored. No wheezes, rales or rhonchi. HEART: Regular rate and rhythm. Soft systolic murmur. No rubs or gallops. S1 and S2 heard. EXTREMITIES: Normal range of motion, mild generalized edema. Cool extremities. No pedal pulses. VITALS: BP 123/66, pulse 74, temp 98.8F, respiratory rate 21, SpO2 93% on 5 L on high flow nasal cannula TELEMETRY: Sinus rhythm overnight. No arrhythmias. LABS: WBC 8.2, hemoglobin 7.5, platelet 111, sodium 135, potassium 6, BUN 67, creatinine 3.43, AST 3595, ALT 1512 IMPRESSION: Coronary artery disease status post CABG 3 Mitral regurgitation, status post mitral valve repair PFO, status post closure Acute kidney injury Hyperkalemia, secondary to a JENIFFER Elevated liver enzymes PLAN: Continue supportive care Continue to monitor for atrial arrhythmias Further recommendations will be based upon clinical course I am dictating on behalf of Dr Rudolph Elam's history/physical and asse ssment/plan. Objective - Vital Signs Vital signs: Vital Signs Temp 98.4 F 04/23/22 04:00 Pulse 74 04/23/22 07:43 Resp 18 04/23/22 07:43 BP 110/63 04/23/22 07:00 Pulse Ox 100 04/23/22 07:00 FiO2 100 04/22/22 16:00 Intake & Output 04/22/22 04/23/22 04/23/22 18:59 06:59 18:59 Intake Total 1068.915 591.882 395.333 Output Total 550 715 100 Balance 518.915 -123.118 295.333 Weight 99.3 kg Intake: IV 388 477 59 NS 240 260 20 cardiac ooutput 40 100 30 pressure bags 108 117 9 Intake, IV Titration 200.915 114.882 86.333 Amount Furosemide 100 mg In 165.833 87.333 86.333 Sodium Chloride 0.9% 90 ml @ 5 MG/HR 5 mls/hr IV .Q20H [facility]ULMA Rx#:[id number] Insulin Regular 100 unit 35.082 27.549 In Sodium Chloride 0.9% 100 ml @ Per Protocol IV .Q0M ZULMA Rx#:[id number] Oral 480 250 Output: Chest Tube Drainage 50 left pleural 40 mediastinal x2 10 Urine 500 715 100 Other: Voiding Method Indwelling Catheter Indwelling Catheter ABP, PAP, CO, CI - Last Documented Arterial Blood Pressure 88/41 Pulmonary Artery Pressure 59/25 Cardiac Output 4.7 Cardiac Index 2.2 - Labs CBC & Chem 7: 04/23/22 04:00 04/23/22 04:00 Labs: Abnormal Lab Results - Last 24 Hours (Table) 04/22/22 04/22/22 04/22/22 Range/Units 09:32 11:12 11:57 RBC (4.30-5.90) m/uL Hgb (13.0-17.5) gm/dL Hct (39.0-53.0) % Plt Count (150-450) k/uL Lymphocytes # (Manual) (1.0-4.8) k/uL Monocytes # (Manual) (0-1.0) k/uL Metamyelocytes # (Man) (0) k/uL Myelocytes # (Manual) (0) k/uL Nucleated RBCs (0-0) /100 WBC ABG pH (7.35-7.45) ABG pCO2 (35-45) mmHg ABG pO2 (83-108) mmHg ABG HCO3 (21-25) mmol/L ABG O2 Saturation (94-97) % Sodium (137-145) mmol/L Potassium (3.5-5.1) mmol/L BUN (9-20) mg/dL Creatinine (0.66-1.25) mg/dL Glucose (74-99) mg/dL POC Glucose (mg/dL) 144 H 173 H 162 H (70-110) mg/dL Calcium (8.4-10.2) mg/dL Magnesium (1.6-2.3) mg/dL AST (17-59) U/L ALT (4-49) U/L Total Protein (6.3-8.2) g/dL Albumin (3.5-5.0) g/dL 04/22/22 04/22/22 04/22/22 Range/Units 13:15 14:19 15:23 RBC (4.30-5.90) m/uL Hgb (13.0-17.5) gm/dL Hct (39.0-53.0) % Plt Count (150-450) k/uL Lymphocytes # (Manual) (1.0-4.8) k/uL Monocytes # (Manual) (0-1.0) k/uL Metamyelocytes # (Man) (0) k/uL Myelocytes # (Manual) (0) k/uL Nucleated RBCs (0-0) /100 WBC ABG pH (7.35-7.45) ABG pCO2 (35-45) mmHg ABG pO2 (83-108) mmHg ABG HCO3 (21-25) mmol/L ABG O2 Saturation (94-97) % Sodium (137-145) mmol/L Potassium (3.5-5.1) mmol/L BUN (9-20) mg/dL Creatinine (0.66-1.25) mg/dL Glucose (74-99) mg/dL POC Glucose (mg/dL) 151 H 135 H 178 H (70-110) mg/dL Calcium (8.4-10.2) mg/dL Magnesium (1.6-2.3) mg/dL AST (17-59) U/L ALT (4-49) U/L Total Protein (6.3-8.2) g/dL Albumin (3.5-5.0) g/dL 04/22/22 04/22/22 04/22/22 Range/Units 16:41 17:27 17:51 RBC (4.30-5.90) m/uL Hgb (13.0-17.5) gm/dL Hct (39.0-53.0) % Plt Count (150-450) k/uL Lymphocytes # (Manual) (1.0-4.8) k/uL Monocytes # (Manual) (0-1.0) k/uL Metamyelocytes # (Man) (0) k/uL Myelocytes # (Manual) (0) k/uL Nucleated RBCs (0-0) /100 WBC ABG pH (7.35-7.45) ABG pCO2 (35-45) mmHg ABG pO2 (83-108) mmHg ABG HCO3 (21-25) mmol/L ABG O2 Saturation (94-97) % Sodium (137-145) mmol/L Potassium (3.5-5.1) mmol/L BUN (9-20) mg/dL Creatinine (0.66-1.25) mg/dL Glucose (74-99) mg/dL POC Glucose (mg/dL) 175 H 176 H 140 H (70-110) mg/dL Calcium (8.4-10.2) mg/dL Magnesium (1.6-2.3) mg/dL AST (17-59) U/L ALT (4-49) U/L Total Protein (6.3-8.2) g/dL Albumin (3.5-5.0) g/dL 04/22/22 04/22/22 04/22/22 Range/Units 19:05 19:54 20:10 RBC (4.30-5.90) m/uL Hgb (13.0-17.5) gm/dL Hct (39.0-53.0) % Plt Count (150-450) k/uL Lymphocytes # (Manual) (1.0-4.8) k/uL Monocytes # (Manual) (0-1.0) k/uL Metamyelocytes # (Man) (0) k/uL Myelocytes # (Manual) (0) k/uL Nucleated RBCs (0-0) /100 WBC ABG pH 7.23 L (7.35-7.45) ABG pCO2 47 H (35-45) mmHg ABG pO2 149 H (83-108) mmHg ABG HCO3 20 L (21-25) mmol/L ABG O2 Saturation 99.6 H (94-97) % Sodium (137-145) mmol/L Potassium (3.5-5.1) mmol/L BUN (9-20) mg/dL Creatinine (0.66-1.25) mg/dL Glucose (74-99) mg/dL POC Glucose (mg/dL) 177 H 167 H (70-110) mg/dL Calcium (8.4-10.2) mg/dL Magnesium (1.6-2.3) mg/dL AST (17-59) U/L ALT (4-49) U/L Total Protein (6.3-8.2) g/dL Albumin (3.5-5.0) g/dL 04/22/22 04/22/22 04/22/22 Range/Units 21:02 21:55 21:57 RBC (4.30-5.90) m/uL Hgb (13.0-17.5) gm/dL Hct (39.0-53.0) % Plt Count (150-450) k/uL Lymphocytes # (Manual) (1.0-4.8) k/uL Monocytes # (Manual) (0-1.0) k/uL Metamyelocytes # (Man) (0) k/uL Myelocytes # (Manual) (0) k/uL Nucleated RBCs (0-0) /100 WBC ABG pH 7.28 L (7.35-7.45) ABG pCO2 49 H (35-45) mmHg ABG pO2 162 H (83-108) mmHg ABG HCO3 (21-25) mmol/L ABG O2 Saturation 100.0 H (94-97) % Sodium (137-145) mmol/L Potassium (3.5-5.1) mmol/L BUN (9-20) mg/dL Creatinine (0.66-1.25) mg/dL Glucose (74-99) mg/dL POC Glucose (mg/dL) 144 H 131 H (70-110) mg/dL Calcium (8.4-10.2) mg/dL Magnesium (1.6-2.3) mg/dL AST (17-59) U/L ALT (4-49) U/L Total Protein (6.3-8.2) g/dL Albumin (3.5-5.0) g/dL 04/22/22 04/23/22 04/23/22 Range/Units 23:09 00:06 00:53 RBC (4.30-5.90) m/uL Hgb (13.0-17.5) gm/dL Hct (39.0-53.0) % Plt Count (150-450) k/uL Lymphocytes # (Manual) (1.0-4.8) k/uL Monocytes # (Manual) (0-1.0) k/uL Metamyelocytes # (Man) (0) k/uL Myelocytes # (Manual) (0) k/uL Nucleated RBCs (0-0) /100 WBC ABG pH (7.35-7.45) ABG pCO2 (35-45) mmHg ABG pO2 (83-108) mmHg ABG HCO3 (21-25) mmol/L ABG O2 Saturation (94-97) % Sodium (137-145) mmol/L Potassium (3.5-5.1) mmol/L BUN (9-20) mg/dL Creatinine (0.66-1.25) mg/dL Glucose (74-99) mg/dL POC Glucose (mg/dL) 126 H 122 H 125 H (70-110) mg/dL Calcium (8.4-10.2) mg/dL Magnesium (1.6-2.3) mg/dL AST (17-59) U/L ALT (4-49) U/L Total Protein (6.3-8.2) g/dL Albumin (3.5-5.0) g/dL 04/23/22 04/23/22 04/23/22 Range/Units 01:58 03:04 04:00 RBC 2.33 L (4.30-5.90) m/uL Hgb 7.5 L (13.0-17.5) gm/dL Hct 23.0 L (39.0-53.0) % Plt Count 111 L (150-450) k/uL Lymphocytes # (Manual) 0.41 L (1.0-4.8) k/uL Monocytes # (Manual) 1.07 H (0-1.0) k/uL Metamyelocytes # (Man) 0.08 H (0) k/uL Myelocytes # (Manual) 0.08 H (0) k/uL Nucleated RBCs 2 H (0-0) /100 WBC ABG pH (7.35-7.45) ABG pCO2 (35-45) mmHg ABG pO2 (83-108) mmHg ABG HCO3 (21-25) mmol/L ABG O2 Saturation (94-97) % Sodium (137-145) mmol/L Potassium (3.5-5.1) mmol/L BUN (9-20) mg/dL Creatinine (0.66-1.25) mg/dL Glucose (74-99) mg/dL POC Glucose (mg/dL) 121 H 119 H (70-110) mg/dL Calcium (8.4-10.2) mg/dL Magnesium (1.6-2.3) mg/dL AST (17-59) U/L ALT (4-49) U/L Total Protein (6.3-8.2) g/dL Albumin (3.5-5.0) g/dL 04/23/22 04/23/22 04/23/22 Range/Units 04:00 04:02 05:08 RBC (4.30-5.90) m/uL Hgb (13.0-17.5) gm/dL Hct (39.0-53.0) % Plt Count (150-450) k/uL Lymphocytes # (Manual) (1.0-4.8) k/uL Monocytes # (Manual) (0-1.0) k/uL Metamyelocytes # (Man) (0) k/uL Myelocytes # (Manual) (0) k/uL Nucleated RBCs (0-0) /100 WBC ABG pH (7.35-7.45) ABG pCO2 (35-45) mmHg ABG pO2 (83-108) mmHg ABG HCO3 (21-25) mmol/L ABG O2 Saturation (94-97) % Sodium 135 L (137-145) mmol/L Potassium 6.0 H (3.5-5.1) mmol/L BUN 67 H (9-20) mg/dL Creatinine 3.43 H (0.66-1.25) mg/dL Glucose 108 H (74-99) mg/dL POC Glucose (mg/dL) 116 H 115 H (70-110) mg/dL Calcium 7.5 L (8.4-10.2) mg/dL Magnesium 3.7 H (1.6-2.3) mg/dL AST 3595 H (17-59) U/L ALT 1512 H (4-49) U/L Total Protein 5.2 L (6.3-8.2) g/dL Albumin 3.2 L (3.5-5.0) g/dL 04/23/22 04/23/22 04/23/22 Range/Units 05:50 06:07 08:12 RBC (4.30-5.90) m/uL Hgb (13.0-17.5) gm/dL Hct (39.0-53.0) % Plt Count (150-450) k/uL Lymphocytes # (Manual) (1.0-4.8) k/uL Monocytes # (Manual) (0-1.0) k/uL Metamyelocytes # (Man) (0) k/uL Myelocytes # (Manual) (0) k/uL Nucleated RBCs (0-0) /100 WBC ABG pH 7.28 L (7.35-7.45) ABG pCO2 48 H (35-45) mmHg ABG pO2 (83-108) mmHg ABG HCO3 (21-25) mmol/L ABG O2 Saturation 97.7 H (94-97) % Sodium (137-145) mmol/L Potassium (3.5-5.1) mmol/L BUN (9-20) mg/dL Creatinine (0.66-1.25) mg/dL Glucose (74-99) mg/dL POC Glucose (mg/dL) 119 H 128 H (70-110) mg/dL Calcium (8.4-10.2) mg/dL Magnesium (1.6-2.3) mg/dL AST (17-59) U/L ALT (4-49) U/L Total Protein (6.3-8.2) g/dL Albumin (3.5-5.0) g/dL Microbiology - Last 24 Hours (Table) 04/19/22 19:45 Gram Stain - Final Sputum Sputum Culture - Final
--- NOTE | 2022-04-23 08:58 | XR ---
EXAMINATION TYPE: XR chest 1V portable DATE OF EXAM: 04/23/2022 COMPARISON: 04/22/2022 HISTORY: Postop TECHNIQUE: Single frontal view of the chest is obtained. FINDINGS: Right IJ [place]-Varghese catheter, tip in the main pulmonary outflow tract. Median sternotomy wi res with annuloplasty ring. Left-sided chest tube in place. Interstitial prominence is similar to sli ghtly prior exam. Patchy bibasilar opacities persist but show slight improvement. No sizable pleural effusion. No appreciable pneumothorax. Heart remains enlarged. Postsurgical change right shoulder. IMPRESSION: 1. Cardiomegaly and pulmonary vascular congestion with bilateral infiltrate and pleural effusion phyllis herrera.
[2022-04-23 09:22] LABS: Glucose,Whole Blood 156 mg/dL (70-110)
[2022-04-23] MEDS ORDERED: DEXTROSE/WATER 1 250ML.BAG with DOPamine DRIP 800 MG IV SCH (10:00)
[2022-04-23 10:18] LABS: Glucose,Whole Blood 143 mg/dL (70-110)
[2022-04-23 11:06] LABS: Glucose,Whole Blood 141 mg/dL (70-110)
--- NOTE | 2022-04-23 11:09 | P.PN ---
Progress Note - Text Progress Note Date: 04/23/22 Patient is a pleasant 72-year-old male came in the for elective mitral valve repair, CABG x 3 vessel, maze procedure, PFO closure. Patient is extubated sitting in the chair patient still has a [place]-Varghese catheter, CVP of around 12, cardiac index 3.1 patient creatinine went up to 1.70 resulting elevated potassium of 5.5 patient is off pressor support, off nitro drip patient still has 2 mediastinal and one left-sided chest tube. 04/21/2022 Patient is evaluated in ICU today, sitting up in chair. He is postoperative day #2 for elective mitral valve repair, hematocrit bypass grafting maze procedure and PFO closure. He is on BiPAP with fio2 of 40% Continues with mediastinal/left pleural chest tubes. Continue with indwelling catheter. Received dose of IV albumin yesterday afternoon. Chest xray today showing ongoing mild pulmonary vascular congestion, increasing patchy bibasilar opacities, atelectasis vs. pulmonary edema. Currently on lasix gtt at 10mls/hr, continues on dopamine gtt at 3.68 mls/hr. Continues on insulin gtt and blood glucose remains in the 140 to 130s. Labs today showing sodium 132, potassium 6.1 improved to 5.4, BUN 41, creatinine 2.53, elevated liver enzymes. Hgb 7.3. 04/22/2022 Patient continues to be monitored closely in intensive care unit, he is postoperative day #3 for elective mitral valve repair, maze procedure, PFO closure. Managed by primary team. He had limited echocardiogram completed showing EF 45 to 50%, mild to moderate MR, moderate pulmonary hypertension with moderate TR. Chest xray today shows slight improvement in pulmonary vascular congestion. Maintained on lasix gtt at 10mls/hr, dopamine gtt, Continues with 2 mediastinal chest tubes. Continues with indwelling catheter. Continues with right IJ swan/cordis, right radial arterial line. He has been weaned off BiPAP currently on high flow cannula at 15L. He has been tolerating some diet. Continues on insulin gtt which will continue until his diet stabilizes. Current glucose in the 140s. Creatinine today 3.14. April 23: I assumed care of patient today from [facility]. ICU. In a recliner. Tired. Little oral intake. Nasal cannula. Drips include IV dopamine and Lasix. Some shortness of breath. Mooney catheter. Active Medications Albuterol/Ipratropium (Ipratropium-Albuterol 3 Ml Neb) 3 ml INHALATION RT-Q2H PRN PRN Reason: Shortness Of Breath Or Wheezing Last Admin: 04/22/22 02:27 Dose: 3 ml Albuterol/Ipratropium (Ipratropium-Albuterol 3 Ml Neb) 3 ml INHALATION RT-QID [facility] Last Admin: 04/23/22 07:33 Dose: 3 ml Ascorbic Acid (Ascorbic Acid 500 Mg Tab) 500 mg PO DAILY [facility] Last Admin: 04/23/22 08:33 Dose: 500 mg Aspirin (Aspirin 325 Mg Tab) 325 mg PO DAILY [facility] Last Admin: 04/23/22 08:33 Dose: 325 mg Benzocaine/Menthol (Benzocaine/Menthol Lozeng 1 Each Lozenge) 1 each MUCOUS MEM Q2H PRN PRN Reason: Sore Throat Bisacodyl (Bisacodyl 10 Mg Supp) 10 mg RECTAL DAILY PRN PRN Reason: Constipation Budesonide/Formoterol Fumarate (Symbicort 160-4.5 Mcg Inhaler) 2 puff INHALATION RT-BID [facility] Last Admin: 04/23/22 07:33 Dose: 2 puff Clopidogrel Bisulfate (Clopidogrel 75 Mg Tab) 75 mg PO DAILY [facility] Last Admin: 04/23/22 08:33 Dose: 75 mg Dextrose/Water (Dextrose 50% Syringe 50 Ml) 25 ml IVP PER PROTOCOL PRN; Protocol PRN Reason: Hypoglycemia Dextrose/Water (Dextrose 50% Syringe 50 Ml) 50 ml IVP PER PROTOCOL PRN; Protocol PRN Reason: Hypoglycemia Ferrous Sulfate (Ferrous Sulfate 325 Mg Tab) 325 mg PO BID [facility] Last Admin: 04/23/22 08:33 Dose: 325 mg Heparin Sodium (Porcine) (Heparin Sodium,Porcine/Pf 5,000 Unit/0.5 Ml Syringe) 5,000 unit SQ Q8HR [facility] Last Admin: 04/23/22 07:59 Dose: 5,000 unit Calcium Gluconate/Sodium (Chloride 2 gm/ IV Solution) 100 mls @ 100 mls/hr IVPB ONCE PRN PRN Reason: Ionized Calcium less than 4.4 Stop: 05/19/22 23:00 Insulin Human Regular 100 unit (/ Sodium Chloride) 101 mls @ 0 mls/hr IV .Q0M [facility]; Protocol Last Titration: 04/23/22 09:21 Dose: 2.5 unit/hr, 2.525 mls/hr Furosemide 100 mg/ Sodium (Chloride) 100 mls @ 5 mls/hr IV .Q20H [facility] Last Admin: 04/23/22 08:31 Dose: 10 mg/hr, 10 mls/hr Sodium Chloride (Saline 0.9%) 1,000 mls @ 20 mls/hr IV .Q24H [facility] Last Admin: 04/22/22 23:23 Dose: 20 mls/hr Isosorbide Mononitrate (Isosorbide Mononitrate Er 15 Mg Tab) 15 mg PO DAILY [facility] Last Admin: 04/23/22 08:33 Dose: 15 mg Magnesium Hydroxide (Magnesium Hydroxide 2,400 Mg/10 Ml Cup) 2,400 mg PO BID PRN PRN Reason: Constipation Last Admin: 04/22/22 07:08 Dose: 2,400 mg Metoprolol Tartrate (Metoprolol Tartrate 12.5 Mg Tab) 12.5 mg PO BID [facility] Last Admin: 04/22/22 19:34 Dose: Not Given Miscellaneous Information (Potassium Replacement Protocol 1 Each Misc) 1 each MISCELLANE DAILY PRN; Protocol PRN Reason: Per Protocol Miscellaneous Information (Magnesium Replacement Protocol 1 Each Misc) 1 each MISCELLANE DAILY PRN; Protocol PRN Reason: Per Protocol Miscellaneous Information (Hold Lopressor Today) 1 each PO ONCE PRN PRN Reason: See Comments Stop: 04/23/22 23:00 Ondansetron HCl (Ondansetron 4 Mg/2 Ml Vial) 4 mg IVP Q6HR PRN PRN Reason: Nausea And Vomiting Senna/Docusate Sodium (Sennosides-Docusate Sodium 1 Each Tab) 2 each PO HS [facility] Last Admin: 04/22/22 20:38 Dose: 2 each Sodium Chloride (Sodium Chloride 0.9% Flush 10 Ml Syringe) 10 ml IV BID [facility] Last Admin: 04/23/22 08:37 Dose: 10 ml Tramadol HCl (Tramadol 50 Mg Tab) 25 mg PO Q12HR PRN PRN Reason: Pain On examination: VITAL SIGNS: [98, 74, 21, 1 23 x 66, 93% on 5 L] GENERAL APPEARANCE: Tired, lethargic, and a recliner HEENT: Normal external appearance of nose and ear. Oral cavity normal EYES: Pupils equal. Conjunctiva normal. NECK: JVD not raised. Mass not palpable. RESPIRATORY: Respiratory effort increased. Lungs diminished breath sounds. CARDIOVASCULAR: First and second sounds normal. No edema. ABDOMEN: Soft. Liver and spleen not palpable. No tenderness. No mass palpable. Mooney catheter PSYCHIATRY: Tired but able to answer simple questions INVESTIGATIONS, reviewed in the clinical context: WBC 8.2 hemoglobin 7.5 platelets 111 sodium 135 progression 6 BUN 67 creatinine 3.43 AST 3595 ALT 1512 Limited 2-D echocardiogram: EF 45-50%. Inferior wall hypokinesis. Moderate MR. Moderate pulmonary hypertension with moderate TR. Assessment and plan -Coronary artery disease mitral valvular disease status post CABG mitral valve repair. Followed by by cardiothoracic surgery -Diabetes Mellitus type 2 with hyperglycemia, continuing hold oral diabetic agents, patient continues on insulin infusion. Once blood sugar improves and stable, patient tolerating diet will consider transition off insulin gtt. -Paroxysmal atrial fibrillation status post modified [place]-Maze procedure, Patient is currently AV Paced -acute renal failure on chronic kidney disease stage II with renal failure is probably prerenal azotemia, cardiorenal syndrome.: Worsening Follow eyes and nose. On dopamine. -hyperkalemia secondary to acute renal failure: Worsening add Lokelma. Renal diet -Acute hepatitis, likely ischemic Follow closely. GI services not available in the hospital. Hold any hepatic offensive medications. Amiodarone was discontinued. -COPD without any acute exacerbation DuoNeb -Hyperlipidemia Hold statins - coronary artery disease with previous PCI Aspirin, Lasix, Imdur, Lopressor currently on hold -Acute postprocedure blood loss anemia as expected from surgery Patient receive 2 units of PRBC -Chronic nicotine dependence -Moderate MR and TR Follow with cardiology -Moderate secondary probably hypertension Encourage oral intake. Patient noted renal diet. Lokelma 5 mg 3 times a day. Will consult nephrology if okay with primary. Other medications to continue. Follow labs. We'll transition to Lantus tonight. Resume home dose of Victoza
[2022-04-23 12:08] LABS: Glucose,Whole Blood 147 mg/dL (70-110)
--- NOTE | 2022-04-23 12:27 | P.PN ---
Subjective Progress Note Date: 04/23/22 On 04/23/2022, the patient is postop day #4. The patient underwent mitral valve repair and 3 vessel bypass surgery and closure of a PFO. The patient is sitting up on a chair and he seems to be calm and comfortable. His chest x-ray showing postsurgical changes/post thoracotomy changes and small effusions nonprotective changes in the lung base bilaterally. Otherwise, the patient is awake and alert and following commands. He is currently on 3 L of O2 nasal cannula with a pulse ox of 95%. His cardiac rhythm is sinus for now. Pain is under adequate control. Noted the patient has history of diabetes mellitus, chronic stage II kidney disease hyperlipidemia, the patient has had multiple orthopedic surgeries and the patient has also paroxysmal atrial fibrillation. The patient multivessel coronary artery disease as discussed earlier in the patient underwent cardiac bypass surgery. Blood work from today shows a hemoglobin 7.5 with a white cell count of 8.2 and a platelet count of 111. Sodium is at 135, potassium is at 6 with a BUN of 67 and a creatinine of 3.4 and a potassium is up to 6.0. The patient did have a shock liver situation where the ALT went up to 1512 and AST was up to 3595. Bilirubin remained of 0.9. The patient is currently on no pressors. The patient's chest tubes have been removed. In terms of blood products, he received 3 units of PRBC, 1 unit of platelets and 2 units of fresh frozen plasma postop. Currently is on Lasix drip which is running at 5 mg an hour. He was treated for his high potassium and he was given a dose of lokalma Objective - Vital Signs Vital signs: Vital Signs Temp 98.8 F 04/23/22 08:00 Pulse 76 04/23/22 11:37 Resp 18 04/23/22 11:37 BP 110/61 04/23/22 11:00 Pulse Ox 95 04/23/22 11:00 FiO2 100 04/22/22 16:00 Intake & Output 04/22/22 04/23/22 04/23/22 18:59 06:59 18:59 Intake Total 1068.915 591.882 486.752 Output Total 550 715 440 Balance 518.915 -123.118 46.752 Weight 99.3 kg Intake: IV 388 477 146 NS 240 260 80 cardiac ooutput 40 100 30 pressure bags 108 117 36 Intake, IV Titration 200.915 114.882 90.752 Amount Furosemide 100 mg In 165.833 87.333 86.333 Sodium Chloride 0.9% 90 ml @ 5 MG/HR 5 mls/hr IV .Q20H ZULMA Rx#:[id number] Insulin Regular 100 unit 35.082 27.549 4.419 In Sodium Chloride 0.9% 100 ml @ Per Protocol IV .Q0M ZULMA Rx#:[id number] Oral 480 250 Output: Chest Tube Drainage 50 left pleural 40 mediastinal x2 10 Urine 500 715 440 Other: Voiding Method Indwelling Catheter Indwelling Catheter Indwelling Catheter ABP, PAP, CO, CI - Last Documented Arterial Blood Pressure 137/47 Pulmonary Artery Pressure 67/18 Cardiac Output 5.8 Cardiac Index 2.8 - Exam CONSTITUTIONAL: Appears comfortable, cooperative, very hard of hearing RESPIRATORY: Lungs sounds diminished bilaterally. Respirations even, nonl abored. Currently on 5 L high flow nasal cannula with oxygen saturation 99%. Able to achieve 750 mL on incentive spirometry. Strong nonproductive cough. CARDIOVASCULAR: S1, S2 present. Regular rate and rhythm, AV paced at 80 bpm, underlying rhythm sinus rhythm in the 70s on telemetry. Sternum stable. Palpable peripheral pulses bilaterally. Generalized edema present. No calf pain or tenderness noted. Heart hugger in place. Antiembolism stockings, SCDs present. GASTROINTESTINAL: Abdomen soft, nontender, nondistended. Tympanic to percussion. Active bowel sounds present 4 quadrants. Tolerating minimal diet. Positive flatus GENITOURINARY: Mooney present draining clear, yellow urine. Output overnight 35-80 mL per hour, 1170 mL in the last 24 hours INTEGUMENTARY: Skin is warm and dry with evidence of good perfusion. Anterior chest incision well approximated and covered with dry intact dressing. Bilateral EVH site well approximated without redness or drainage. NEUROLOGIC: Cranial nerves II through XII intact MUSKULOSKELETAL: Able to move all extremities, strength equal bilaterally PSYCHIATRIC: Oriented to person place and time, appears a bit sleepy today, less agitated INVASIVE LINES AND TUBES: A/V epicardial pacemaker wires present, connected to generator, DDD mode with rate 80 bpm. Right internal jugular [employer]/[place], right radial arterial line present. Last CO/CI 4.7/2.2, PA 62/20, CVP 14. - Labs CBC & Chem 7: 04/23/22 04:00 04/23/22 04:00 Labs: Abnormal Lab Results - Last 24 Hours (Table) 04/22/22 04/22/22 04/22/22 Range/Units 13:15 14:19 15:23 RBC (4.30-5.90) m/uL Hgb (13.0-17.5) gm/dL Hct (39.0-53.0) % Plt Count (150-450) k/uL Lymphocytes # (Manual) (1.0-4.8) k/uL Monocytes # (Manual) (0-1.0) k/uL Metamyelocytes # (Man) (0) k/uL Myelocytes # (Manual) (0) k/uL Nucleated RBCs (0-0) /100 WBC ABG pH (7.35-7.45) ABG pCO2 (35-45) mmHg ABG pO2 (83-108) mmHg ABG HCO3 (21-25) mmol/L ABG O2 Saturation (94-97) % Sodium (137-145) mmol/L Potassium (3.5-5.1) mmol/L BUN (9-20) mg/dL Creatinine (0.66-1.25) mg/dL Glucose (74-99) mg/dL POC Glucose (mg/dL) 151 H 135 H 178 H (70-110) mg/dL Calcium (8.4-10.2) mg/dL Magnesium (1.6-2.3) mg/dL AST (17-59) U/L ALT (4-49) U/L Total Protein (6.3-8.2) g/dL Albumin (3.5-5.0) g/dL 04/22/22 04/22/22 04/22/22 Range/Units 16:41 17:27 17:51 RBC (4.30-5.90) m/uL Hgb (13.0-17.5) gm/dL Hct (39.0-53.0) % Plt Count (150-450) k/uL Lymphocytes # (Manual) (1.0-4.8) k/uL Monocytes # (Manual) (0-1.0) k/uL Metamyelocytes # (Man) (0) k/uL Myelocytes # (Manual) (0) k/uL Nucleated RBCs (0-0) /100 WBC ABG pH (7.35-7.45) ABG pCO2 (35-45) mmHg ABG pO2 (83-108) mmHg ABG HCO3 (21-25) mmol/L ABG O2 Saturation (94-97) % Sodium (137-145) mmol/L Potassium (3.5-5.1) mmol/L BUN (9-20) mg/dL Creatinine (0.66-1.25) mg/dL Glucose (74-99) mg/dL POC Glucose (mg/dL) 175 H 176 H 140 H (70-110) mg/dL Calcium (8.4-10.2) mg/dL Magnesium (1.6-2.3) mg/dL AST (17-59) U/L ALT (4-49) U/L Total Protein (6.3-8.2) g/dL Albumin (3.5-5.0) g/dL 04/22/22 04/22/22 04/22/22 Range/Units 19:05 19:54 20:10 RBC (4.30-5.90) m/uL Hgb (13.0-17.5) gm/dL Hct (39.0-53.0) % Plt Count (150-450) k/uL Lymphocytes # (Manual) (1.0-4.8) k/uL Monocytes # (Manual) (0-1.0) k/uL Metamyelocytes # (Man) (0) k/uL Myelocytes # (Manual) (0) k/uL Nucleated RBCs (0-0) /100 WBC ABG pH 7.23 L (7.35-7.45) ABG pCO2 47 H (35-45) mmHg ABG pO2 149 H (83-108) mmHg ABG HCO3 20 L (21-25) mmol/L ABG O2 Saturation 99.6 H (94-97) % Sodium (137-145) mmol/L Potassium (3.5-5.1) mmol/L BUN (9-20) mg/dL Creatinine (0.66-1.25) mg/dL Glucose (74-99) mg/dL POC Glucose (mg/dL) 177 H 167 H (70-110) mg/dL Calcium (8.4-10.2) mg/dL Magnesium (1.6-2.3) mg/dL AST (17-59) U/L ALT (4-49) U/L Total Protein (6.3-8.2) g/dL Albumin (3.5-5.0) g/dL 04/22/22 04/22/22 04/22/22 Range/Units 21:02 21:55 21:57 RBC (4.30-5.90) m/uL Hgb (13.0-17.5) gm/dL Hct (39.0-53.0) % Plt Count (150-450) k/uL Lymphocytes # (Manual) (1.0-4.8) k/uL Monocytes # (Manual) (0-1.0) k/uL Metamyelocytes # (Man) (0) k/uL Myelocytes # (Manual) (0) k/uL Nucleated RBCs (0-0) /100 WBC ABG pH 7.28 L (7.35-7.45) ABG pCO2 49 H (35-45) mmHg ABG pO2 162 H (83-108) mmHg ABG HCO3 (21-25) mmol/L ABG O2 Saturation 100.0 H (94-97) % Sodium (137-145) mmol/L Potassium (3.5-5.1) mmol/L BUN (9-20) mg/dL Creatinine (0.66-1.25) mg/dL Glucose (74-99) mg/dL POC Glucose (mg/dL) 144 H 131 H (70-110) mg/dL Calcium (8.4-10.2) mg/dL Magnesium (1.6-2.3) mg/dL AST (17-59) U/L ALT (4-49) U/L Total Protein (6.3-8.2) g/dL Albumin (3.5-5.0) g/dL 04/22/22 04/23/22 04/23/22 Range/Units 23:09 00:06 00:53 RBC (4.30-5.90) m/uL Hgb (13.0-17.5) gm/dL Hct (39.0-53.0) % Plt Count (150-450) k/uL Lymphocytes # (Manual) (1.0-4.8) k/uL Monocytes # (Manual) (0-1.0) k/uL Metamyelocytes # (Man) (0) k/uL Myelocytes # (Manual) (0) k/uL Nucleated RBCs (0-0) /100 WBC ABG pH (7.35-7.45) ABG pCO2 (35-45) mmHg ABG pO2 (83-108) mmHg ABG HCO3 (21-25) mmol/L ABG O2 Saturation (94-97) % Sodium (137-145) mmol/L Potassium (3.5-5.1) mmol/L BUN (9-20) mg/dL Creatinine (0.66-1.25) mg/dL Glucose (74-99) mg/dL POC Glucose (mg/dL) 126 H 122 H 125 H (70-110) mg/dL Calcium (8.4-10.2) mg/dL Magnesium (1.6-2.3) mg/dL AST (17-59) U/L ALT (4-49) U/L Total Protein (6.3-8.2) g/dL Albumin (3.5-5.0) g/dL 04/23/22 04/23/22 04/23/22 Range/Units 01:58 03:04 04:00 RBC 2.33 L (4.30-5.90) m/uL Hgb 7.5 L (13.0-17.5) gm/dL Hct 23.0 L (39.0-53.0) % Plt Count 111 L (150-450) k/uL Lymphocytes # (Manual) 0.41 L (1.0-4.8) k/uL Monocytes # (Manual) 1.07 H (0-1.0) k/uL Metamyelocytes # (Man) 0.08 H (0) k/uL Myelocytes # (Manual) 0.08 H (0) k/uL Nucleated RBCs 2 H (0-0) /100 WBC ABG pH (7.35-7.45) ABG pCO2 (35-45) mmHg ABG pO2 (83-108) mmHg ABG HCO3 (21-25) mmol/L ABG O2 Saturation (94-97) % Sodium (137-145) mmol/L Potassium (3.5-5.1) mmol/L BUN (9-20) mg/dL Creatinine (0.66-1.25) mg/dL Glucose (74-99) mg/dL POC Glucose (mg/dL) 121 H 119 H (70-110) mg/dL Calcium (8.4-10.2) mg/dL Magnesium (1.6-2.3) mg/dL AST (17-59) U/L ALT (4-49) U/L Total Protein (6.3-8.2) g/dL Albumin (3.5-5.0) g/dL 04/23/22 04/23/22 04/23/22 Range/Units 04:00 04:02 05:08 RBC (4.30-5.90) m/uL Hgb (13.0-17.5) gm/dL Hct (39.0-53.0) % Plt Count (150-450) k/uL Lymphocytes # (Manual) (1.0-4.8) k/uL Monocytes # (Manual) (0-1.0) k/uL Metamyelocytes # (Man) (0) k/uL Myelocytes # (Manual) (0) k/uL Nucleated RBCs (0-0) /100 WBC ABG pH (7.35-7.45) ABG pCO2 (35-45) mmHg ABG pO2 (83-108) mmHg ABG HCO3 (21-25) mmol/L ABG O2 Saturation (94-97) % Sodium 135 L (137-145) mmol/L Potassium 6.0 H (3.5-5.1) mmol/L BUN 67 H (9-20) mg/dL Creatinine 3.43 H (0.66-1.25) mg/dL Glucose 108 H (74-99) mg/dL POC Glucose (mg/dL) 116 H 115 H (70-110) mg/dL Calcium 7.5 L (8.4-10.2) mg/dL Magnesium 3.7 H (1.6-2.3) mg/dL AST 3595 H (17-59) U/L ALT 1512 H (4-49) U/L Total Protein 5.2 L (6.3-8.2) g/dL Albumin 3.2 L (3.5-5.0) g/dL 04/23/22 04/23/22 04/23/22 Range/Units 05:50 06:07 08:12 RBC (4.30-5.90) m/uL Hgb (13.0-17.5) gm/dL Hct (39.0-53.0) % Plt Count (150-450) k/uL Lymphocytes # (Manual) (1.0-4.8) k/uL Monocytes # (Manual) (0-1.0) k/uL Metamyelocytes # (Man) (0) k/uL Myelocytes # (Manual) (0) k/uL Nucleated RBCs (0-0) /100 WBC ABG pH 7.28 L (7.35-7.45) ABG pCO2 48 H (35-45) mmHg ABG pO2 (83-108) mmHg ABG HCO3 (21-25) mmol/L ABG O2 Saturation 97.7 H (94-97) % Sodium (137-145) mmol/L Potassium (3.5-5.1) mmol/L BUN (9-20) mg/dL Creatinine (0.66-1.25) mg/dL Glucose (74-99) mg/dL POC Glucose (mg/dL) 119 H 128 H (70-110) mg/dL Calcium (8.4-10.2) mg/dL Magnesium (1.6-2.3) mg/dL AST (17-59) U/L ALT (4-49) U/L Total Protein (6.3-8.2) g/dL Albumin (3.5-5.0) g/dL 04/23/22 04/23/22 04/23/22 Range/Units 09:20 10:16 11:05 RBC (4.30-5.90) m/uL Hgb (13.0-17.5) gm/dL Hct (39.0-53.0) % Plt Count (150-450) k/uL Lymphocytes # (Manual) (1.0-4.8) k/uL Monocytes # (Manual) (0-1.0) k/uL Metamyelocytes # (Man) (0) k/uL Myelocytes # (Manual) (0) k/uL Nucleated RBCs (0-0) /100 WBC ABG pH (7.35-7.45) ABG pCO2 (35-45) mmHg ABG pO2 (83-108) mmHg ABG HCO3 (21-25) mmol/L ABG O2 Saturation (94-97) % Sodium (137-145) mmol/L Potassium (3.5-5.1) mmol/L BUN (9-20) mg/dL Creatinine (0.66-1.25) mg/dL Glucose (74-99) mg/dL POC Glucose (mg/dL) 156 H 143 H 141 H (70-110) mg/dL Calcium (8.4-10.2) mg/dL Magnesium (1.6-2.3) mg/dL AST (17-59) U/L ALT (4-49) U/L Total Protein (6.3-8.2) g/dL Albumin (3.5-5.0) g/dL 04/23/22 Range/Units 12:06 RBC (4.30-5.90) m/uL Hgb (13.0-17.5) gm/dL Hct (39.0-53.0) % Plt Count (150-450) k/uL Lymphocytes # (Manual) (1.0-4.8) k/uL Monocytes # (Manual) (0-1.0) k/uL Metamyelocytes # (Man) (0) k/uL Myelocytes # (Manual) (0) k/uL Nucleated RBCs (0-0) /100 WBC ABG pH (7.35-7.45) ABG pCO2 (35-45) mmHg ABG pO2 (83-108) mmHg ABG HCO3 (21-25) mmol/L ABG O2 Saturation (94-97) % Sodium (137-145) mmol/L Potassium (3.5-5.1) mmol/L BUN (9-20) mg/dL Creatinine (0.66-1.25) mg/dL Glucose (74-99) mg/dL POC Glucose (mg/dL) 147 H (70-110) mg/dL Calcium (8.4-10.2) mg/dL Magnesium (1.6-2.3) mg/dL AST (17-59) U/L ALT (4-49) U/L Total Protein (6.3-8.2) g/dL Albumin (3.5-5.0) g/dL Microbiology - Last 24 Hours (Table) 04/19/22 19:45 Gram Stain - Final Sputum Sputum Culture - Final Assessment and Plan Plan: 1. Severe mitral valve regurgitation, status post mitral valve repair, postoperative day #4 2. Coronary artery disease, previous PCI, previous non-STEMI, status post CABG 3, postop day #4 3. History of paroxysmal atrial fibrillation, previous cardioversion, on [facility] outpatient for anticoagulation, status post modified [place] maze and ligation of left atrial appendage, postop day #4 4. Patent foramen ovale, status post closure, postop day #4 5. Tricuspid regurgitation 6. Chronic systolic congestive heart failure, ischemic cardiomyopathy with EF 4 0-45% 7. History of hypertension 8. History hyperlipidemia, treated, cholesterol 150, LDL 72 9. Right internal carotid stenosis 50-79% 10. Anemia with history of GI bleed in November 2021 S/P transfusion PRBCs 11. Acute on chronic renal failure, baseline creatinine 1.28-1.6, and the patient was found to have a secondary hyperkalemia and the potassium level is being monitored. The patient was treated accordingly. 12. Diabetes mellitus type 2, preoperative hemoglobin A1c 5.6% currently on insulin drip at 3 units an hour 13. Osteoarthritis 14. Severe COPD, preoperative FEV1 41% of predicted 15. Chronic ongoing nicotine dependence 16. Remote history of pneumonia 17. Chronic low back pain, hearing disorder 18. Nasal swab positive for MSSA preoperative 19. Postoperative acute blood loss anemia, expected 20. Elevated transaminases, most likely due to shock liver and the significant elevation of the ALT and AST which are being monitored 21. Protamine reaction intraoperative Plan: Keep the patient on 3 L O2 nasal cannula Continue incentive spirometer Continue Lasix at the rate of 10 mg an hour Monitor the potassium level and lokalma was given Monitor LFTs [employer]-[place] catheter removed Patient's underlying cardiac rhythm is sinus at the rate of 70 Surgical one-sided dry-cleaning and intact Moderate hemoglobin Chest tubes are removed The patient is going to be switched to Lantus and Victoza We'll continue to follow
[2022-04-23 13:31] LABS: Glucose,Whole Blood 137 mg/dL (70-110)
[2022-04-23 14:43] LABS: Glucose,Whole Blood 151 mg/dL (70-110)
[2022-04-23 16:12] LABS: Glucose,Whole Blood 137 mg/dL (70-110)
[2022-04-23] MEDS: SODIUM ZIRCONIUM CYCLOSILICATE 10 GM PACKET PO SCH ×2 (16:14→21:10)
[2022-04-23 18:01] LABS: Glucose,Whole Blood 169 mg/dL (70-110)
[2022-04-23] MEDS ORDERED: DEXTROSE 50% SYRINGE 50 ML IVP PRN ×2 (18:33)
[2022-04-23 18:55] LABS: Glucose,Whole Blood 216 mg/dL (70-110)
[2022-04-23 20:31] LABS: Glucose,Whole Blood 163 mg/dL (70-110)
[2022-04-23] MEDS: INSULIN DETEMIR (LEVEMIR) 100 UNIT/ML SYR SQ SCH (20:39)
[2022-04-23] MEDS: SENNOSIDES-DOCUSATE SODIUM 1 EACH TAB PO SCH (20:40)
[2022-04-23] MEDS: INSULIN ASPART (NovoLOG) 100 UNIT/ML VIAL SQ SCH (20:40)
[2022-04-23] MEDS ORDERED: INSULIN DETEMIR (LEVEMIR) 100 UNIT/ML SYR SQ SCH (21:00)
[2022-04-24] MEDS: HEPARIN SODIUM,PORCINE/PF 5,000 UNIT/0.5 ML SYRINGE SQ SCH ×3 (00:13→16:33)
[2022-04-24] MEDS: FUROSEMIDE 100 MG in SODIUM CHLORIDE 0.9% 90 ML IV SCH ×2 (00:14→21:51)
[2022-04-24] MEDS: bisacodyL 10 MG SUPP RECTAL PRN (06:11)
[2022-04-24 06:57] LABS: Glucose,Whole Blood 147 mg/dL (70-110)
[2022-04-24] MEDS: INSULIN ASPART (NovoLOG) 100 UNIT/ML VIAL SQ SCH ×4 (06:57→21:56)
[2022-04-24 07:04] LABS: Albumin 3.1 g/dL (3.5-5.0); Magnesium 3.3 mg/dL (1.6-2.3); Phosphorus 6.9 mg/dL (2.5-4.5); Potassium 5.1 mmol/L (3.5-5.1); Total Bilirubin 1.1 mg/dL (0.2-1.3)
[2022-04-24 07:11] LABS: HGB 7.1 gm/dL (13.0-17.5); Hypochromasia Marked; MCH 30.7 pg (25.0-35.0); Macrocytosis Slight; Mean Platelet Volume 10.3; Platelet Count 122 k/uL (150-450); Poikilocytosis Slight; RBC 2.33 m/uL (4.30-5.90); RDW 15.3 % (11.5-15.5)
--- NOTE | 2022-04-24 07:53 | XR ---
EXAMINATION TYPE: XR chest 1V portable DATE OF EXAM: 04/24/2022 6:05 AM COMPARISON: Chest radiographs from 04/23/2022 TECHNIQUE: XR chest 1V portable Frontal view of the chest. CLINICAL INDICATION:Male, 72 years old with history of post cardiac surgery; FINDINGS: Lungs/Pleura: Similar interstitial prominence. Patchy bibasilar opacities persist. Small right pleura l effusion. Heart/mediastinum: Cardiomediastinal silhouette is enlarged and stable. Aortic valvular prosthesis. Musculoskeletal: No acute osseous pathology. Midline sternotomy wires are noted and stable. Post surg ical change of the left shoulder. Lines/Tubes: Interval removal of right IJ [place]-Varg[place] catheter. IMPRESSION: Stable cardiomegaly and pulmonary vascular congestion with bilateral airspace opacities and right ple ural effusion.
[2022-04-24] MEDS: IPRATROPIUM-ALBUTEROL 3 ML NEB INHALATION SCH ×4 (08:46→22:09)
[2022-04-24] MEDS: SYMBICORT 160-4.5 MCG INHALER INHALATION SCH ×2 (08:46→22:09)
[2022-04-24] MEDS: NON FORMULARY DRUG SQ SCH (09:01)
[2022-04-24] MEDS: ASCORBIC ACID 500 MG TAB PO SCH (09:03)
[2022-04-24] MEDS: FERROUS SULFATE 325 MG TAB PO SCH ×2 (09:03→21:53)
[2022-04-24] MEDS: METOPROLOL TARTRATE 12.5 MG TAB PO SCH ×2 (09:03→21:52)
[2022-04-24] MEDS: CLOPIDOGREL 75 MG TAB PO SCH (09:04)
[2022-04-24] MEDS: ASPIRIN 325 MG TAB PO SCH (09:04)
[2022-04-24] MEDS: ISOSORBIDE MONONITRATE ER 15 MG TAB PO SCH (09:04)
[2022-04-24] MEDS: SODIUM ZIRCONIUM CYCLOSILICATE 10 GM PACKET PO SCH (09:04)
[2022-04-24] MEDS: SODIUM CHLORIDE 0.9% 1,000 ML IV SCH (09:05)
--- NOTE | 2022-04-24 09:45 | P.PN ---
Subjective Progress Note Date: 04/24/22 Principal diagnosis: Severe mitral valve regurgitation, coronary artery disease, paroxysmal atrial fibrillation, patent foramen ovale, tricuspid regurgitation, chronic systolic congestive heart failure. Previous medical history of hypertension, hyperlipidemia, coronary artery disease with history of previous PCI, non-ST elevated myocardial infarction in November 2021, ischemic cardiomyopathy with EF 40- 45%, right internal carotid stenosis 50-79%, renal insufficiency, anemia with history of GI bleed in November 2021 S/P transfusion PRBCs, diabetes mellitus type 2, osteoarthritis, severe COPD, chronic ongoing nicotine dependence, remote history of pneumonia, chronic low back pain and hearing disorder. Nasal swab positive for MSSA preoperative POD #5 Mitral valve repair with 28 mm physio-2 ring, CABG 3 with saphenous vein grafts to first diagonal, obtuse marginal, posterior descending coronary arteries, closure of PFO, endovascular vein harvest, modified Castanon maze procedure with full left-sided lesion set and ligation of the left atrial appendage, SCOTT by anesthesia. Protamine reaction intraoperative Postoperative acute blood loss anemia, expected given his history of anemia, hemodilution and cardiopulmonary bypass Acute on chronic kidney failure, likely from hypotension from intraoperative protamine reaction Elevated transaminases, likely from hypotension from intraoperative protamine reaction The patient was seen and examined this morning sitting up in a recliner in the intensive care unit in no acute distress. Remains in sinus rhythm, hemodynamically stable on no pressors or inotropes. Currently on 3 L nasal cannula with oxygen saturation in the mid 90s, able to achieve 1000 mL on his incentive spirometer. States pain is controlled on current medication regimen, denies shortness of breath. Urine output stable, remains on IV Lasix. Beta siomara was held yesterday Labs and chest x-ray reviewed with some improvement. Right internal jugular Cordis remains. Nursing reports some confusion overnight, patient is oriented but does make inappropriate comments and appears to have occasional panic attacks. Objective - Vital Signs Vital signs: Vital Signs Temp 97.5 F L 04/24/22 04:00 Pulse 75 04/24/22 07:00 Resp 33 H 04/24/22 07:00 BP 123/59 04/24/22 07:00 Pulse Ox 93 L 04/24/22 07:00 FiO2 100 04/22/22 16:00 Intake & Output 04/23/22 04/24/22 04/24/22 18:59 06:59 18:59 Intake Total 969.152 981 23 Output Total 805 870 60 Balance 164.152 111 -37 Weight 101.8 kg Intake: IV 313 276 23 NS 220 240 20 cardiac ooutput 30 pressure bags 63 36 3 Intake, IV Titration 206.152 Amount Furosemide 100 mg In 186.333 Sodium Chloride 0.9% 90 ml @ 5 MG/HR 5 mls/hr IV .Q20H [facility] Rx#:[id number] Insulin Regular 100 unit 19.819 In Sodium Chloride 0.9% 100 ml @ Per Protocol IV .Q0M [facility] Rx#:[id number] Oral 450 705 Output: Urine 805 870 60 Other: Voiding Method Indwelling Catheter Indwelling Catheter ABP, PAP, CO, CI - Last Documented Arterial Blood Pressure 137/47 Pulmonary Artery Pressure 67/18 Cardiac Output 5.8 Cardiac Index 2.8 - Exam CONSTITUTIONAL: Appears comfortable, cooperative, very hard of hearing RESPIRATORY: Lungs sounds diminished bilaterally. Respirations even, nonlabored. Currently on 3 L high flow nasal cannula with oxygen saturation 93%. Able to achieve 1000 mL on incentive spirometry. Strong nonproductive cough. CARDIOVASCULAR: S1, S2 present. Regular rate and rhythm, sinus rhythm on telemetry. Sternum stable. Palpable peripheral pulses bilaterally. Generalized edema present. No calf pain or tenderness noted. Heart hugger in place. Antiembolism stockings, SCDs present. GASTROINTESTINAL: Abdomen soft, nontender, nondistended. Tympanic to percussion. Active bowel sounds present 4 quadrants. Tolerating minimal diet. Positive flatus GENITOURINARY: Mooney present draining clear, yellow urine. Output overnight 100 mL per hour, 1675 mL in the last 24 hours INTEGUMENTARY: Skin is warm and dry with evidence of good perfusion. Anterior chest incision well approximated and covered with dry intact dressing. Bilateral EVH site well approximated without redness or drainage. NEUROLOGIC: Cranial nerves II through XII intact MUSKULOSKELETAL: Able to move all extremities, strength equal bilaterally PSYCHIATRIC: Oriented to person place and time, inappropriate at times INVASIVE LINES AND TUBES: A/V epicardial pacemaker wires present, connected to generator, DDD mode with backup rate 50 bpm. Right internal jugular cordis present. Last CVP 24. - Allied health notes Allied health notes reviewed: nursing - Labs CBC & Chem 7: 04/24/22 06:06 04/24/22 06:06 Labs: Abnormal Lab Results - Last 24 Hours (Table) 04/23/22 04/23/22 04/23/22 Range/Units 09:20 10:16 11:05 RBC (4.30-5.90) m/uL Hgb (13.0-17.5) gm/dL Hct (39.0-53.0) % Plt Count (150-450) k/uL Sodium (137-145) mmol/L Potassium (3.5-5.1) mmol/L BUN (9-20) mg/dL Creatinine (0.66-1.25) mg/dL Glucose (74-99) mg/dL POC Glucose (mg/dL) 156 H 143 H 141 H (70-110) mg/dL Calcium (8.4-10.2) mg/dL Phosphorus (2.5-4.5) mg/dL Magnesium (1.6-2.3) mg/dL AST (17-59) U/L ALT (4-49) U/L Total Protein (6.3-8.2) g/dL Albumin (3.5-5.0) g/dL 04/23/22 04/23/22 04/23/22 Range/Units 12:06 13:29 14:41 RBC (4.30-5.90) m/uL Hgb (13.0-17.5) gm/dL Hct (39.0-53.0) % Plt Count (150-450) k/uL Sodium (137-145) mmol/L Potassium (3.5-5.1) mmol/L BUN (9-20) mg/dL Creatinine (0.66-1.25) mg/dL Glucose (74-99) mg/dL POC Glucose (mg/dL) 147 H 137 H 151 H (70-110) mg/dL Calcium (8.4-10.2) mg/dL Phosphorus (2.5-4.5) mg/dL Magnesium (1.6-2.3) mg/dL AST (17-59) U/L ALT (4-49) U/L Total Protein (6.3-8.2) g/dL Albumin (3.5-5.0) g/dL 04/23/22 04/23/22 04/23/22 Range/Units 14:52 16:10 18:00 RBC (4.30-5.90) m/uL Hgb (13.0-17.5) gm/dL Hct (39.0-53.0) % Plt Count (150-450) k/uL Sodium (137-145) mmol/L Potassium 5.7 H (3.5-5.1) mmol/L BUN (9-20) mg/dL Creatinine (0.66-1.25) mg/dL Glucose (74-99) mg/dL POC Glucose (mg/dL) 137 H 169 H (70-110) mg/dL Calcium (8.4-10.2) mg/dL Phosphorus (2.5-4.5) mg/dL Magnesium (1.6-2.3) mg/dL AST (17-59) U/L ALT (4-49) U/L Total Protein (6.3-8.2) g/dL Albumin (3.5-5.0) g/dL 04/23/22 04/23/22 04/23/22 Range/Units 18:53 20:29 22:25 RBC (4.30-5.90) m/uL Hgb (13.0-17.5) gm/dL Hct (39.0-53.0) % Plt Count (150-450) k/uL Sodium (137-145) mmol/L Potassium 5.8 H (3.5-5.1) mmol/L BUN (9-20) mg/dL Creatinine (0.66-1.25) mg/dL Glucose (74-99) mg/dL POC Glucose (mg/dL) 216 H 163 H (70-110) mg/dL Calcium (8.4-10.2) mg/dL Phosphorus (2.5-4.5) mg/dL Magnesium (1.6-2.3) mg/dL AST (17-59) U/L ALT (4-49) U/L Total Protein (6.3-8.2) g/dL Albumin (3.5-5.0) g/dL 04/24/22 04/24/22 04/24/22 Range/Units 06:06 06:06 06:56 RBC 2.33 L (4.30-5.90) m/uL Hgb 7.1 L (13.0-17.5) gm/dL Hct 23.0 L (39.0-53.0) % Plt Count 122 L (150-450) k/uL Sodium 133 L (137-145) mmol/L Potassium (3.5-5.1) mmol/L BUN 77 H (9-20) mg/dL Creatinine 2.97 H (0.66-1.25) mg/dL Glucose 130 H (74-99) mg/dL POC Glucose (mg/dL) 147 H (70-110) mg/dL Calcium 7.0 L (8.4-10.2) mg/dL Phosphorus 6.9 H (2.5-4.5) mg/dL Magnesium 3.3 H (1.6-2.3) mg/dL AST 1270 H (17-59) U/L ALT 1038 H (4-49) U/L Total Protein 5.0 L (6.3-8.2) g/dL Albumin 3.1 L (3.5-5.0) g/dL - Imaging and Cardiology Chest x-ray: report reviewed, image reviewed Assessment and Plan Assessment: 1. Severe mitral valve regurgitation, status post mitral valve repair 2. Coronary artery disease, previous PCI, previous non-STEMI, status post CABG 3 3. History of paroxysmal atrial fibrillation, previous cardioversion, on [facility] outpatient for anticoagulation, status post modified Castanon maze and ligation of left atrial appendage 4. Patent foramen ovale, status post closure 5. Tricuspid regurgitation 6. Chronic systolic congestive heart failure, ischemic cardiomyopathy with EF 40-45% 7. History of hypertension 8. History hyperlipidemia, treated, cholesterol 150, LDL 72 9. Right internal carotid stenosis 50-79% 10. Anemia with history of GI bleed in November 2021 S/P transfusion PRBCs 11. Acute on chronic renal failure, baseline creatinine 1.28-1.6 12. Diabetes mellitus type 2, preoperative hemoglobin A1c 5.6% 13. Osteoarthritis 14. Severe COPD, preoperative FEV1 41% of predicted 15. Chronic ongoing nicotine dependence 16. Remote history of pneumonia 17. Chronic low back pain, hearing disorder 18. Nasal swab positive for MSSA preoperative 19. Postoperative acute blood loss anemia, expected 20. Elevated transaminases 21. Protamine reaction intraoperative Plan: 1. Continue aspirin, Plavix, beta siomara, low dose Imdur. Statin on hold due to elevated LFT, will reintroduce when liver enzymes stabilize. 2. Amiodarone discontinued due to elevated LFTs. No anticoagulation until after all lines and tubes have been discontinued, likely will discharge home on Eliquis 3. Decrease IV Lasix to 3 mg per hour 4. Wean O2 as tolerated. Encourage incentive spirometry 10 times every hour while awake. Bronchodilators, BiPAP per pulmonology 5. Increase activity, ambulate as tolerated. PT/OT/cardiac rehab following 6. Will monitor daily labs and chest x-rays. Electronic replacement per protocol. Avoid hepatotoxic and nephrotoxic medications. Lokelma for hyperkalemia 7. GI/DVT prophylaxis. 8. Insulin management per primary care service. Patient is a diabetic with a preoperative hemoglobin A1c of 5.6% on multiple oral medications, needs tight blood sugar control 9. Pain control with current medication regimen. 10. We'll obtain midline, discontinue Cordis 11. Continue Mooney catheter for another 24 hours for strict accurate intake and output. 12. Continue external pacemaker to a backup rate 50 bpm 13. Daily weights. 14. Smoking cessation counseling and education provided to patient and family 15. More recommendations to follow based on patient's clinical course.
[2022-04-24 09:48] LABS: Eosinophils # (M) 0.09 k/uL (0-0.7); Lymphocytes # (M) 0.28 k/uL (1.0-4.8); Monocytes # (M) 1.56 k/uL (0-1.0); Myelocytes # (M) 0.09 k/uL (0); Myelocytes % 1 %; Neutrophils # (M) 7.27 k/uL (1.3-7.7); Neutrophils % (M) 79 %; Nucleated Red Blood Cells 2 /100 WBC (0-0); Total Cells Counted 200; WBC 9.2 k/uL (3.8-10.6)
[2022-04-24 09:49] LABS: Polychromasia Present
--- NOTE | 2022-04-24 09:58 | P.PN ---
Subjective Progress Note Date: 04/24/22 The patient is a 72-year-old male who is currently admitted to the hospital after undergoing CABG 3 with mitral valve repair and PFO closure on April 19. Postoperative complications include acute kidney injury, hypotension, and respiratory insufficiency requiring BiPAP. IV drips have been weaned over the last 24 hours. The patient was interviewed and examined resting comfortably in the recliner. His breathing is quite labored, however he just ambulate to the restroom and back to the chair. Nursing staff states after about 5 minutes, he will typically come down. GENERAL: Ill-appearing, well-nourished and in no acute distress. NECK: Supple without JVD or thyromegaly. LUNGS: Breath sounds diminished to auscultation bilaterally. Respiration equal and unlabored. No wheezes, rales or rhonchi. HEART: Regular rate and rhythm. Soft systolic murmur. No rubs or gallops. S1 and S2 heard. EXTREMITIES: Normal range of motion, mild generalized edema. Cool extremities. No pedal pulses. VITALS: Blood pressure 127/72, pulse 75, temp 98.4F, SpO2 94% on 4 L nasal cannula TELEMETRY: Sinus rhythm overnight. No arrhythmias. LABS: WBC 9.2, hemoglobin 7.1, hematocrit 23.0, platelet 122, sodium 133, potassium 5.1, BUN 77, creatinine 2.97, AST 1270, ALT 1038 IMPRESSION: Coronary artery disease status post CABG 3 Mitral regurgitation, status post mitral valve repair PFO, status post closure Acute kidney injury Hyperkalemia, secondary to a JENIFFER Elevated liver enzymes PLAN: Continue supportive care Continue to monitor for atrial arrhythmias Further recommendations will be based upon clinical course I am dictating on behalf of Dr Rudolph Elam's history/physical and assessment/plan. Objective - Vital Signs Vital signs: Vital Signs Temp 98.4 F 04/24/22 08:00 Pulse 75 04/24/22 09:00 Resp 27 H 04/24/22 09:00 BP 127/72 04/24/22 09:00 Pulse Ox 94 L 04/24/22 09:00 FiO2 100 04/22/22 16:00 Intake & Output 04/23/22 04/24/22 04/24/22 18:59 06:59 18:59 Intake Total 969.152 981 146.667 Output Total 805 870 195 Balance 164.152 111 -48.333 Weight 101.8 kg Intake: IV 313 276 69 NS 220 240 60 cardiac ooutput 30 pressure bags 63 36 9 Intake, IV Titration 206.152 77.667 Amount Furosemide 100 mg In 186.333 77.667 Sodium Chloride 0.9% 90 ml @ 3 MG/HR 3 mls/hr IV .Q24H [facility] Rx#:[id number] Insulin Regular 100 unit 19.819 In Sodium Chloride 0.9% 100 ml @ Per Protocol IV .Q0M [facility] Rx#:[id number] Oral 450 705 Output: Urine 805 870 195 Other: Voiding Method Indwelling Catheter Indwelling Catheter ABP, PAP, CO, CI - Last Documented Arterial Blood Pressure 137/47 Pulmonary Artery Pressure 67/18 Cardiac Output 5.8 Cardiac Index 2.8 - Labs CBC & Chem 7: 04/24/22 06:06 04/24/22 06:06 Labs: Abnormal Lab Results - Last 24 Hours (Table) 04/23/22 04/23/22 04/23/22 Range/Units 10:16 11:05 12:06 RBC (4.30-5.90) m/uL Hgb (13.0-17.5) gm/dL Hct (39.0-53.0) % Plt Count (150-450) k/uL Sodium (137-145) mmol/L Potassium (3.5-5.1) mmol/L BUN (9-20) mg/dL Creatinine (0.66-1.25) mg/dL Glucose (74-99) mg/dL POC Glucose (mg/dL) 143 H 141 H 147 H (70-110) mg/dL Calcium (8.4-10.2) mg/dL Phosphorus (2.5-4.5) mg/dL Magnesium (1.6-2.3) mg/dL AST (17-59) U/L ALT (4-49) U/L Total Protein (6.3-8.2) g/dL Albumin (3.5-5.0) g/dL 04/23/22 04/23/22 04/23/22 Range/Units 13:29 14:41 14:52 RBC (4.30-5.90) m/uL Hgb (13.0-17.5) gm/dL Hct (39.0-53.0) % Plt Count (150-450) k/uL Sodium (137-145) mmol/L Potassium 5.7 H (3.5-5.1) mmol/L BUN (9-20) mg/dL Creatinine (0.66-1.25) mg/dL Glucose (74-99) mg/dL POC Glucose (mg/dL) 137 H 151 H (70-110) mg/dL Calcium (8.4-10.2) mg/dL Phosphorus (2.5-4.5) mg/dL Magnesium (1.6-2.3) mg/dL AST (17-59) U/L ALT (4-49) U/L Total Protein (6.3-8.2) g/dL Albumin (3.5-5.0) g/dL 04/23/22 04/23/22 04/23/22 Range/Units 16:10 18:00 18:53 RBC (4.30-5.90) m/uL Hgb (13.0-17.5) gm/dL Hct (39.0-53.0) % Plt Count (150-450) k/uL Sodium (137-145) mmol/L Potassium (3.5-5.1) mmol/L BUN (9-20) mg/dL Creatinine (0.66-1.25) mg/dL Glucose (74-99) mg/dL POC Glucose (mg/dL) 137 H 169 H 216 H (70-110) mg/dL Calcium (8.4-10.2) mg/dL Phosphorus (2.5-4.5) mg/dL Magnesium (1.6-2.3) mg/dL AST (17-59) U/L ALT (4-49) U/L Total Protein (6.3-8.2) g/dL Albumin (3.5-5.0) g/dL 04/23/22 04/23/22 04/24/22 Range/Units 20:29 22:25 06:06 RBC 2.33 L (4.30-5.90) m/uL Hgb 7.1 L (13.0-17.5) gm/dL Hct 23.0 L (39.0-53.0) % Plt Count 122 L (150-450) k/uL Sodium (137-145) mmol/L Potassium 5.8 H (3.5-5.1) mmol/L BUN (9-20) mg/dL Creatinine (0.66-1.25) mg/dL Glucose (74-99) mg/dL POC Glucose (mg/dL) 163 H (70-110) mg/dL Calcium (8.4-10.2) mg/dL Phosphorus (2.5-4.5) mg/dL Magnesium (1.6-2.3) mg/dL AST (17-59) U/L ALT (4-49) U/L Total Protein (6.3-8.2) g/dL Albumin (3.5-5.0) g/dL 04/24/22 04/24/22 Range/Units 06:06 06:56 RBC (4.30-5.90) m/uL Hgb (13.0-17.5) gm/dL Hct (39.0-53.0) % Plt Count (150-450) k/uL Sodium 133 L (137-145) mmol/L Potassium (3.5-5.1) mmol/L BUN 77 H (9-20) mg/dL Creatinine 2.97 H (0.66-1.25) mg/dL Glucose 130 H (74-99) mg/dL POC Glucose (mg/dL) 147 H (70-110) mg/dL Calcium 7.0 L (8.4-10.2) mg/dL Phosphorus 6.9 H (2.5-4.5) mg/dL Magnesium 3.3 H (1.6-2.3) mg/dL AST 1270 H (17-59) U/L ALT 1038 H (4-49) U/L Total Protein 5.0 L (6.3-8.2) g/dL Albumin 3.1 L (3.5-5.0) g/dL
[2022-04-24 11:11] LABS: Glucose,Whole Blood 148 mg/dL (70-110)
--- NOTE | 2022-04-24 13:05 | P.PN ---
Progress Note - Text Progress Note Date: 04/24/22 Patient is a pleasant 72-year-old male came in the for elective mitral valve repair, CABG x 3 vessel, maze procedure, PFO closure. Patient is extubated sitting in the chair patient still has a Wolcott-Varghese catheter, CVP of around 12, cardiac index 3.1 patient creatinine went up to 1.70 resulting elevated potassium of 5.5 patient is off pressor support, off nitro drip patient still has 2 mediastinal and one left-sided chest tube. 04/21/2022 Patient is evaluated in ICU today, sitting up in chair. He is postoperative day #2 for elective mitral valve repair, hematocrit bypass grafting maze procedure and PFO closure. He is on BiPAP with fio2 of 40% Continues with mediastinal/left pleural chest tubes. Continue with indwelling catheter. Received dose of IV albumin yesterday afternoon. Chest xray today showing ongoing mild pulmonary vascular congestion, increasing patchy bibasilar opacities, atelectasis vs. pulmonary edema. Currently on lasix gtt at 10mls/hr, continues on dopamine gtt at 3.68 mls/hr. Continues on insulin gtt and blood glucose remains in the 140 to 130s. Labs today showing sodium 132, potassium 6.1 improved to 5.4, BUN 41, creatinine 2.53, elevated liver enzymes. Hgb 7.3. 04/22/2022 Patient continues to be monitored closely in intensive care unit, he is postoperative day #3 for elective mitral valve repair, maze procedure, PFO closure. Managed by primary team. He had limited echocardiogram completed showing EF 45 to 50%, mild to moderate MR, moderate pulmonary hypertension with moderate TR. Chest xray today shows slight improvement in pulmonary vascular congestion. Maintained on lasix gtt at 10mls/hr, dopamine gtt, Continues with 2 mediastinal chest tubes. Continues with indwelling catheter. Continues with right IJ swan/cordis, right radial arterial line. He has been weaned off BiPAP currently on high flow cannula at 15L. He has been tolerating some diet. Continues on insulin gtt which will continue until his diet stabilizes. Current glucose in the 140s. Creatinine today 3.14. April 23: I assumed care of patient today from [facility]. ICU. In a recliner. Tired. Little oral intake. Nasal cannula. Drips include IV dopamine and Lasix. Some shortness of breath. Mooney catheter. 04/24/2020: ICU. Up. 4 L nasal cannula. Did eat better. Edema present. On the Lasix drip 5 mg an hour. Some improvement in creatinine. Active Medications Albuterol/Ipratropium (Ipratropium-Albuterol 3 Ml Neb) 3 ml INHALATION RT-Q2H PRN PRN Reason: Shortness Of Breath Or Wheezing Last Admin: 04/22/22 02:27 Dose: 3 ml Albuterol/Ipratropium (Ipratropium-Albuterol 3 Ml Neb) 3 ml INHALATION RT-QID [facility] Last Admin: 04/24/22 11:33 Dose: 3 ml Ascorbic Acid (Ascorbic Acid 500 Mg Tab) 500 mg PO DAILY [facility] Last Admin: 04/24/22 09:03 Dose: 500 mg Aspirin (Aspirin 325 Mg Tab) 325 mg PO DAILY [facility] Last Admin: 04/24/22 09:04 Dose: 325 mg Benzocaine/Menthol (Benzocaine/Menthol Lozeng 1 Each Lozenge) 1 each MUCOUS MEM Q2H PRN PRN Reason: Sore Throat Bisacodyl (Bisacodyl 10 Mg Supp) 10 mg RECTAL DAILY PRN PRN Reason: Constipation Last Admin: 04/24/22 06:11 Dose: 10 mg Budesonide/Formoterol Fumarate (Symbicort 160-4.5 Mcg Inhaler) 2 puff INHALATION RT-BID [facility] Last Admin: 04/24/22 08:46 Dose: Not Given Clopidogrel Bisulfate (Clopidogrel 75 Mg Tab) 75 mg PO DAILY [facility] Last Admin: 04/24/22 09:04 Dose: 75 mg Dextrose/Water (Dextrose 50% Syringe 50 Ml) 25 ml IVP PER PROTOCOL PRN; Protocol PRN Reason: Hypoglycemia Dextrose/Water (Dextrose 50% Syringe 50 Ml) 50 ml IVP PER PROTOCOL PRN; Protocol PRN Reason: Hypoglycemia Dextrose/Water (Dextrose 50% Syringe 50 Ml) 25 ml IVP PER PROTOCOL PRN; Protocol PRN Reason: Hypoglycemia Dextrose/Water (Dextrose 50% Syringe 50 Ml) 50 ml IVP PER PROTOCOL PRN; Protocol PRN Reason: Hypoglycemia Ferrous Sulfate (Ferrous Sulfate 325 Mg Tab) 325 mg PO BID [facility] Last Admin: 04/24/22 09:03 Dose: 325 mg Heparin Sodium (Porcine) (Heparin Sodium,Porcine/Pf 5,000 Unit/0.5 Ml Syringe) 5,000 unit SQ Q8HR [facility] Last Admin: 04/24/22 09:03 Dose: 5,000 unit Calcium Gluconate/Sodium (Chloride 2 gm/ IV Solution) 100 mls @ 100 mls/hr IVPB ONCE PRN PRN Reason: Ionized Calcium less than 4.4 Stop: 05/19/22 23:00 Furosemide 100 mg/ Sodium (Chloride) 100 mls @ 3 mls/hr IV .Q24H [facility] Last Infusion: 04/24/22 08:00 Dose: 3 mg/hr, 3 mls/hr Sodium Chloride (Saline 0.9%) 1,000 mls @ 20 mls/hr IV .Q24H [facility] Last Admin: 04/24/22 09:05 Dose: 20 mls/hr Insulin Aspart (Insulin Aspart (Novolog) 100 Unit/Ml Vial) 0 unit SQ ACHS [facility]; Protocol Last Admin: 04/24/22 11:28 Dose: Not Given Insulin Detemir (Insulin Detemir (Levemir) 100 Unit/Ml Syr) 20 unit SQ [facility] Last Admin: 04/23/22 20:39 Dose: 20 unit Isosorbide Mononitrate (Isosorbide Mononitrate Er 15 Mg Tab) 15 mg PO DAILY [facility] Last Admin: 04/24/22 09:04 Dose: 15 mg Magnesium Hydroxide (Magnesium Hydroxide 2,400 Mg/10 Ml Cup) 2,400 mg PO BID PRN PRN Reason: Constipation Last Admin: 04/22/22 07:08 Dose: 2,400 mg Metoprolol Tartrate (Metoprolol Tartrate 12.5 Mg Tab) 12.5 mg PO BID [facility] Last Admin: 04/24/22 09:03 Dose: 12.5 mg Miscellaneous Information (Potassium Replacement Protocol 1 Each Misc) 1 each MISCELLANE DAILY PRN; Protocol PRN Reason: Per Protocol Miscellaneous Information (Magnesium Replacement Protocol 1 Each Misc) 1 each MISCELLANE DAILY PRN; Protocol PRN Reason: Per Protocol Non-Formulary Medication (Non Formulary Drug) 1 each SQ DAILY [facility] Last Admin: 04/24/22 09:01 Dose: Not Given Ondansetron HCl (Ondansetron 4 Mg/2 Ml Vial) 4 mg IVP Q6HR PRN PRN Reason: Nausea And Vomiting Senna/Docusate Sodium (Sennosides-Docusate Sodium 1 Each Tab) 2 each PO HS [facility] Last Admin: 04/23/22 20:40 Dose: 2 each Sodium Chloride (Sodium Chloride 0.9% Flush 10 Ml Syringe) 10 ml IV BID [facility] Last Admin: 04/24/22 09:05 Dose: 10 ml Sodium Zirconium Cyclosilicate (Sodium Zirconium Cyclosilicate 10 Gm Packet) 5 gm PO TID [facility] Last Admin: 04/24/22 09:04 Dose: 5 gm Tramadol HCl (Tramadol 50 Mg Tab) 25 mg PO Q12HR PRN PRN Reason: Pain On examination: VITAL SIGNS: 73, 26, 122/64, 94% on 4 L GENERAL APPEARANCE: Tired, in a recliner HEENT: Normal external appearance of nose and ear. Oral cavity normal EYES: Pupils equal. Conjunctiva normal. NECK: JVD not raised. Mass not palpable. RESPIRATORY: Respiratory effort increased. Lungs diminished breath sounds. CARDIOVASCULAR: First and second sounds normal. Edema present ABDOMEN: Soft. Liver and spleen not palpable. No tenderness. No mass palpable. Mooney catheter PSYCHIATRY: Tired, answering questions appropriately INVESTIGATIONS, reviewed in the clinical context: 04/24/2022: WBC 9.2 hemoglobin 7.1 platelets 122 potassium 5.1 BUN 77 creatinine 2.97 AST 1270 ALT 1038 WBC 8.2 hemoglobin 7.5 platelets 111 sodium 135 progression 6 BUN 67 creatinine 3.43 AST 3595 ALT 1512 Limited 2-D echocardiogram: EF 45-50%. Inferior wall hypokinesis. Moderate MR. Moderate pulmonary hypertension with moderate TR. Assessment and plan -Coronary artery disease mitral valvular disease status post CABG mitral valve repair. Followed by by cardiothoracic surgery -Acute hypoxic respiratory failure from pulmonary edema: Slow to respond 4 L nasal cannula -Diabetes Mellitus type 2 with hyperglycemia, continuing hold oral diabetic agents, started on Lantus last night. Off insulin drip. -Paroxysmal atrial fibrillation status post modified Castanon-Maze procedure, Patient is currently AV Paced -acute renal failure on chronic kidney disease stage II with renal failure is probably prerenal azotemia, cardiorenal syndrome.: Slow to respond Lasix drip. Off dopamine -hyperkalemia secondary to acute renal failure: Improving Stop Lokelma today. Renal diet -Acute hepatitis, likely ischemic: Some improvement Follow closely. GI services not available in the hospital. Hold any hepatic offensive medications. Off amiodarone -COPD without any acute exacerbation DuoNeb -Hyperlipidemia Hold statins, because of elevated LFTs - coronary artery disease with previous PCI Aspirin, Lasix, Imdur, Lopressor currently on hold -Acute postprocedure blood loss anemia as expected from surgery Patient receive 2 units of PRBC, follow CBC -Chronic nicotine dependence -Moderate MR and TR Follow with cardiology -Moderate secondary probably hypertension Patient down to 4 L nasal cannula. Patient is off dopamine drip. Lasix drip at 5 mg hour. For fluid overload. Encourage oral intake. LFTs coming down.
--- NOTE | 2022-04-24 15:26 | P.PN ---
Subjective Progress Note Date: 04/24/22 On 04/23/2022, the patient is postop day #4. The patient underwent mitral valve repair and 3 vessel bypass surgery and closure of a PFO. The patient is sitting up on a chair and he seems to be calm and comfortable. His chest x-ray showing postsurgical changes/post thoracotomy changes and small effusions nonprotective changes in the lung base bilaterally. Otherwise, the patient is awake and alert and following commands. He is currently on 3 L of O2 nasal cannula with a pulse ox of 95%. His cardiac rhythm is sinus for now. Pain is under adequate control. Noted the patient has history of diabetes mellitus, chronic stage II kidney disease hyperlipidemia, the patient has had multiple orthopedic surgeries and the patient has also paroxysmal atrial fibrillation. The patient multivessel coronary artery disease as discussed earlier in the patient underwent cardiac bypass surgery. Blood work from today shows a hemoglobin 7.5 with a white cell count of 8.2 and a platelet count of 111. Sodium is at 135, potassium is at 6 with a BUN of 67 and a creatinine of 3.4 and a potassium is up to 6.0. The patient did have a shock liver situation where the ALT went up to 1512 and AST was up to 3595. Bilirubin remained of 0.9. The patient is currently on no pressors. The patient's chest tubes have been removed. In terms of blood products, he received 3 units of PRBC, 1 unit of platelets and 2 units of fresh frozen plasma postop. Currently is on Lasix drip which is running at 5 mg an hour. He was treated for his high potassium and he was given a dose of lokalma On today's evaluation of 04/24/2022, the patient is postop day #5. The patient is doing well and he has no specific complaints. He continues to diurese and the patient is currently on Lasix 3 mg an hour. The patient is currently on 4 L of O2 nasal cannula. The patient underwent mitral valve repair and 3 vessel bypass surgery and closure of a PFO. He is comfortable. Is using the incentive spirometer. Surgical one-sided dry clean and intact. The patient is currently on no pressors. At the same time, the patient was having an issue with an acute kidney injury and the creatinine is stable for now. The BUN is at 27 with a creatinine of 2.97 which is improved compared to yesterday. The patient has a white cell count of 9.2 with a hemoglobin of 7.1 and a platelet count of 122. Sodium is at 133, potassium level is at 5.1, improved compared to yesterday, the patient did have also a shock liver which is improving, AST is down to 1270 and ALTs on to 1038. Glucose at 1:30. Normal electrolytes. Alert and awake. Following commands and answering questions. No other significant events. Remains on Levemir insulin 20 units along with a sliding scale coverage. Objective - Vital Signs Vital signs: Vital Signs Temp 98.4 F 04/24/22 08:00 Pulse 75 04/24/22 09:00 Resp 27 H 04/24/22 09:00 BP 127/72 04/24/22 09:00 Pulse Ox 94 L 04/24/22 09:00 FiO2 100 04/22/22 16:00 Intake & Output 04/23/22 04/24/22 04/24/22 18:59 06:59 18:59 Intake Total 969.152 981 146.667 Output Total 805 870 195 Balance 164.152 111 -48.333 Weight 101.8 kg Intake: IV 313 276 69 NS 220 240 60 cardiac ooutput 30 pressure bags 63 36 9 Intake, IV Titration 206.152 77.667 Amount Furosemide 100 mg In 186.333 77.667 Sodium Chloride 0.9% 90 ml @ 3 MG/HR 3 mls/hr IV .Q24H [facility] Rx#:[id number] Insulin Regular 100 unit 19.819 In Sodium Chloride 0.9% 100 ml @ Per Protocol IV .Q0M [facility] Rx#:[id number] Oral 450 705 Output: Urine 805 870 195 Other: Voiding Method Indwelling Catheter Indwelling Catheter ABP, PAP, CO, CI - Last Documented Arterial Blood Pressure 137/47 Pulmonary Artery Pressure 67/18 Cardiac Output 5.8 Cardiac Index 2.8 - Exam CONSTITUTIONAL: Appears comfortable, cooperative, very hard of hearing RESPIRATORY: Lungs sounds diminished bilaterally. Respirations even, nonlabored. Currently on 3 L high flow nasal cannula with oxygen saturation 93%. Able to achieve 1000 mL on incentive spirometry. Strong nonproductive cough. CARDIOVASCULAR: S1, S2 present. Regular rate and rhythm, sinus rhythm on telemetry. Sternum stable. Palpable peripheral pulses bilaterally. Generalized edema present. No calf pain or tenderness noted. Heart hugger in place. Antiembolism stockings, SCDs present. GASTROINTESTINAL: Abdomen soft, nontender, nondistended. Tympanic to percussion. Active bowel sounds present 4 quadrants. Tolerating minimal diet. Positive flatus GENITOURINARY: Mooney present draining clear, yellow urine. Output overnight 100 mL per hour, 1675 mL in the last 24 hours INTEGUMENTARY: Skin is warm and dry with evidence of good perfusion. Anterior chest incision well approximated and covered with dry intact dressing. Bilateral EVH site well approximated without redness or drainage. NEUROLOGIC: Cranial nerves II through XII intact MUSKULOSKELETAL: Able to move all extremities, strength equal bilaterally PSYCHIATRIC: Oriented to person place and time, inappropriate at times INVASIVE LINES AND TUBES: A/V epicardial pacemaker wires present, connected to generator, DDD mode with backup rate 50 bpm. Right internal jugular cordis present. Last CVP 24. - Labs CBC & Chem 7: 04/24/22 06:06 04/24/22 06:06 Labs: Abnormal Lab Results - Last 24 Hours (Table) 04/23/22 04/23/22 04/23/22 Range/Units 10:16 11:05 12:06 RBC (4.30-5.90) m/uL Hgb (13.0-17.5) gm/dL Hct (39.0-53.0) % Plt Count (150-450) k/uL Sodium (137-145) mmol/L Potassium (3.5-5.1) mmol/L BUN (9-20) mg/dL Creatinine (0.66-1.25) mg/dL Glucose (74-99) mg/dL POC Glucose (mg/dL) 143 H 141 H 147 H (70-110) mg/dL Calcium (8.4-10.2) mg/dL Phosphorus (2.5-4.5) mg/dL Magnesium (1.6-2.3) mg/dL AST (17-59) U/L ALT (4-49) U/L Total Protein (6.3-8.2) g/dL Albumin (3.5-5.0) g/dL 04/23/22 04/23/22 04/23/22 Range/Units 13:29 14:41 14:52 RBC (4.30-5.90) m/uL Hgb (13.0-17.5) gm/dL Hct (39.0-53.0) % Plt Count (150-450) k/uL Sodium (137-145) mmol/L Potassium 5.7 H (3.5-5.1) mmol/L BUN (9-20) mg/dL Creatinine (0.66-1.25) mg/dL Glucose (74-99) mg/dL POC Glucose (mg/dL) 137 H 151 H (70-110) mg/dL Calcium (8.4-10.2) mg/dL Phosphorus (2.5-4.5) mg/dL Magnesium (1.6-2.3) mg/dL AST (17-59) U/L ALT (4-49) U/L Total Protein (6.3-8.2) g/dL Albumin (3.5-5.0) g/dL 04/23/22 04/23/22 04/23/22 Range/Units 16:10 18:00 18:53 RBC (4.30-5.90) m/uL Hgb (13.0-17.5) gm/dL Hct (39.0-53.0) % Plt Count (150-450) k/uL Sodium (137-145) mmol/L Potassium (3.5-5.1) mmol/L BUN (9-20) mg/dL Creatinine (0.66-1.25) mg/dL Glucose (74-99) mg/dL POC Glucose (mg/dL) 137 H 169 H 216 H (70-110) mg/dL Calcium (8.4-10.2) mg/dL Phosphorus (2.5-4.5) mg/dL Magnesium (1.6-2.3) mg/dL AST (17-59) U/L ALT (4-49) U/L Total Protein (6.3-8.2) g/dL Albumin (3.5-5.0) g/dL 04/23/22 04/23/22 04/24/22 Range/Units 20:29 22:25 06:06 RBC 2.33 L (4.30-5.90) m/uL Hgb 7.1 L (13.0-17.5) gm/dL Hct 23.0 L (39.0-53.0) % Plt Count 122 L (150-450) k/uL Sodium (137-145) mmol/L Potassium 5.8 H (3.5-5.1) mmol/L BUN (9-20) mg/dL Creatinine (0.66-1.25) mg/dL Glucose (74-99) mg/dL POC Glucose (mg/dL) 163 H (70-110) mg/dL Calcium (8.4-10.2) mg/dL Phosphorus (2.5-4.5) mg/dL Magnesium (1.6-2.3) mg/dL AST (17-59) U/L ALT (4-49) U/L Total Protein (6.3-8.2) g/dL Albumin (3.5-5.0) g/dL 04/24/22 04/24/22 Range/Units 06:06 06:56 RBC (4.30-5.90) m/uL Hgb (13.0-17.5) gm/dL Hct (39.0-53.0) % Plt Count (150-450) k/uL Sodium 133 L (137-145) mmol/L Potassium (3.5-5.1) mmol/L BUN 77 H (9-20) mg/dL Creatinine 2.97 H (0.66-1.25) mg/dL Glucose 130 H (74-99) mg/dL POC Glucose (mg/dL) 147 H (70-110) mg/dL Calcium 7.0 L (8.4-10.2) mg/dL Phosphorus 6.9 H (2.5-4.5) mg/dL Magnesium 3.3 H (1.6-2.3) mg/dL AST 1270 H (17-59) U/L ALT 1038 H (4-49) U/L Total Protein 5.0 L (6.3-8.2) g/dL Albumin 3.1 L (3.5-5.0) g/dL Assessment and Plan Plan: 1. Severe mitral valve regurgitation, status post mitral valve repair, postoperative day #5 2. Coronary artery disease, previous PCI, previous non-STEMI, status post CABG 3, postop day #5 3. History of paroxysmal atrial fibrillation, previous cardioversion, on [facility] outpatient for anticoagulation, status post modified Castanon maze and ligation of left atrial appendage, postop day #5 4. Patent foramen ovale, status post closure, postop day #5 5. Tricuspid regurgitation 6. Chronic systolic congestive heart failure, ischemic cardiomyopathy with EF 40-45% 7. History of hypertension 8. History hyperlipidemia, treated, cholesterol 150, LDL 72 9. Right internal carotid stenosis 50-79% 10. Anemia with history of GI bleed in November 2021 S/P transfusion PRBCs 11. Acute on chronic renal failure, baseline creatinine 1.28-1.6, and the patient was found to have a secondary hyperkalemia and the potassium level is being monitored. The patient was treated accordingly. 12. Diabetes mellitus type 2, preoperative hemoglobin A1c 5.6% currently on insulin drip at 3 units an hour 13. Osteoarthritis 14. Severe COPD, preoperative FEV1 41% of predicted 15. Chronic ongoing nicotine dependence 16. Remote history of pneumonia 17. Chronic low back pain, hearing disorder 18. Nasal swab positive for MSSA preoperative 19. Postoperative acute blood loss anemia, expected 20. Elevated transaminases, most likely due to shock liver and the significant elevation of the ALT and AST which are being monitored 21. Protamine reaction intraoperative Plan: Keep the patient on 3-4 L O2 nasal cannula Continue incentive spirometer Continue Lasix at the rate of 3 mg an hour Monitor the potassium level and lokalma was given, potassium level is normalized Monitor LFTs Frederick-Varghese catheter removed Patient's underlying cardiac rhythm is sinus Surgical one-sided dry-cleaning and intact Hemoglobin is stable Chest tubes are removed The patient is going to be switched to Lantus We'll continue to follow
[2022-04-24 16:41] LABS: Glucose,Whole Blood 143 mg/dL (70-110)
[2022-04-24 21:44] LABS: Glucose,Whole Blood 170 mg/dL (70-110)
[2022-04-24] MEDS: SENNOSIDES-DOCUSATE SODIUM 1 EACH TAB PO SCH (21:52)
[2022-04-24] MEDS: INSULIN DETEMIR (LEVEMIR) 100 UNIT/ML SYR SQ SCH (21:53)
[2022-04-25] MEDS: HEPARIN SODIUM,PORCINE/PF 5,000 UNIT/0.5 ML SYRINGE SQ SCH ×3 (00:50→15:46)
[2022-04-25] MEDS: FUROSEMIDE 100 MG in SODIUM CHLORIDE 0.9% 90 ML IV SCH (00:59)
[2022-04-25] MEDS: SODIUM CHLORIDE 0.9% 1,000 ML IV SCH ×2 (06:23→09:04)
[2022-04-25 07:57] LABS: HCT 23.4 % (39.0-53.0); HGB 7.2 gm/dL (13.0-17.5); Hypochromasia Marked; MCH 31.1 pg (25.0-35.0); MCV 100.4 fL (80.0-100.0); Macrocytosis Slight; Mean Platelet Volume 9.7; Platelet Count 211 k/uL (150-450); Poikilocytosis Slight; RBC 2.33 m/uL (4.30-5.90); RDW 15.7 % (11.5-15.5); WBC 12.4 k/uL (3.8-10.6)
[2022-04-25 08:00] LABS: Glucose,Whole Blood 218 mg/dL (70-110)
[2022-04-25] MEDS: INSULIN ASPART (NovoLOG) 100 UNIT/ML VIAL SQ SCH ×4 (08:05→20:42)
[2022-04-25 08:11] LABS: Albumin 3.1 g/dL (3.5-5.0); Calcium 7.3 mg/dL (8.4-10.2); Magnesium 3.1 mg/dL (1.6-2.3); Potassium 4.5 mmol/L (3.5-5.1); Total Bilirubin 1.1 mg/dL (0.2-1.3)
--- NOTE | 2022-04-25 08:19 | XR ---
EXAMINATION TYPE: XR chest 1V portable DATE OF EXAM: 04/25/2022 6:23 AM COMPARISON: Chest radiograph from one day prior. TECHNIQUE: XR chest 1V portable Portable AP radiograph of the chest. CLINICAL INDICATION:Male, 72 years old with history of post cardiac surgery; FINDINGS: Lungs/Pleura: There is no evidence of focal consolidation, or pneumothorax. Bibasilar blunting of the costophrenic angles with associated atelectasis. Pulmonary vascularity: Pulmonary vascular congestion. Heart/mediastinum: Cardiomediastinal silhouette is enlarged and stable. Musculoskeletal: No acute osseous pathology. Midline sternotomy wires are noted. IMPRESSION: Cardiomegaly, pulmonary vascular congestion and bilateral pleural effusions.
[2022-04-25] MEDS: IPRATROPIUM-ALBUTEROL 3 ML NEB INHALATION SCH ×4 (08:24→22:10)
[2022-04-25] MEDS: SYMBICORT 160-4.5 MCG INHALER INHALATION SCH ×2 (08:25→22:09)
[2022-04-25] MEDS: FERROUS SULFATE 325 MG TAB PO SCH ×2 (09:04→20:42)
[2022-04-25] MEDS: METOPROLOL TARTRATE 12.5 MG TAB PO SCH ×2 (09:04→20:41)
[2022-04-25] MEDS: ISOSORBIDE MONONITRATE ER 15 MG TAB PO SCH (09:04)
[2022-04-25] MEDS: ASCORBIC ACID 500 MG TAB PO SCH (09:04)
[2022-04-25] MEDS: CLOPIDOGREL 75 MG TAB PO SCH (09:04)
[2022-04-25] MEDS: ASPIRIN 325 MG TAB PO SCH (09:04)
[2022-04-25] MEDS: NON FORMULARY DRUG SQ SCH (10:02)
--- NOTE | 2022-04-25 10:30 | P.PN ---
Subjective Progress Note Date: 04/25/22 Principal diagnosis: Severe mitral valve regurgitation, coronary artery disease, paroxysmal atrial fibrillation, patent foramen ovale, tricuspid regurgitation, chronic systolic congestive heart failure. Previous medical history of hypertension, hyperlipidemia, coronary artery disease with history of previous PCI, non-ST elevated myocardial infarction in November 2021, ischemic cardiomyopathy with EF 40- 45%, right internal carotid stenosis 50-79%, renal insufficiency, anemia with history of GI bleed in November 2021 S/P transfusion PRBCs, diabetes mellitus type 2, osteoarthritis, severe COPD, chronic ongoing nicotine dependence, remote history of pneumonia, chronic low back pain and hearing disorder. Nasal swab positive for MSSA preoperative POD #6 Mitral valve repair with 28 mm physio-2 ring, CABG 3 with saphenous vein grafts to first diagonal, obtuse marginal, posterior descending coronary arteries, closure of PFO, endovascular vein harvest, modified Castanon maze procedure with full left-sided lesion set and ligation of the left atrial appendage, SCOTT by anesthesia. Protamine reaction intraoperative Postoperative acute blood loss anemia, expected given his history of anemia, hemodilution and cardiopulmonary bypass Acute on chronic kidney failure, likely from hypotension from intraoperative protamine reaction Elevated transaminases, likely from hypotension from intraoperative protamine reaction The patient was seen and examined this morning sitting up in a recliner in the intensive care unit in no acute distress eating breakfast. Remains in sinus rhythm, hemodynamically stable on no pressors or inotropes. Currently on 3 L nasal cannula with oxygen saturation in the mid 90s, able to achieve 1000 mL on his incentive spirometer. States pain is controlled on current medication regimen, denies shortness of breath. Urine output stable, remains on IV Lasix. Labs and chest x-ray reviewed. Patient did ambulate a bit yesterday with assistance. Objective - Vital Signs Vital signs: Vital Signs Temp 98 F 04/25/22 08:00 Pulse 70 04/25/22 10:00 Resp 21 04/25/22 10:00 BP 123/62 04/25/22 10:00 Pulse Ox 93 L 04/25/22 10:00 FiO2 100 04/22/22 16:00 Intake & Output 04/24/22 04/25/22 04/25/22 18:59 06:59 18:59 Intake Total 901.667 665.333 463 Output Total 1015 1005 435 Balance -113.333 -339.667 28 Weight 100.2 kg Intake: IV 234 143 43 Furosemide 100 mg In 36 33 3 Sodium Chloride 0.9% 90 ml @ 3 MG/HR 3 mls/hr IV .Q24H ZULMA Rx#:[id number] NS 180 110 40 pressure bags 18 Intake, IV Titration 77.667 22.333 Amount Furosemide 100 mg In 77.667 22.333 Sodium Chloride 0.9% 90 ml @ 3 MG/HR 3 mls/hr IV .Q24H ZULMA Rx#:[id number] Oral 590 500 420 Output: Urine 1015 1005 435 Other: Voiding Method Indwelling Catheter Indwelling Catheter Indwelling Catheter ABP, PAP, CO, CI - Last Documented Arterial Blood Pressure 137/47 Pulmonary Artery Pressure 67/18 Cardiac Output 5.8 Cardiac Index 2.8 - Exam CONSTITUTIONAL: Appears comfortable, cooperative, very hard of hearing RESPIRATORY: Lungs sounds diminished bilaterally. Respirations even, nonlabored. Currently on 3 L high flow nasal cannula with oxygen saturation 94%. Able to achieve 1000 mL on incentive spirometry. Strong nonproductive cough. CARDIOVASCULAR: S1, S2 present. Regular rate and rhythm, sinus rhythm on telemetry. Sternum stable. Palpable peripheral pulses bilaterally. Generalized edema present. No calf pain or tenderness noted. Heart hugger in place. Antiembolism stockings, SCDs present. GASTROINTESTINAL: Abdomen soft, nontender, nondistended. Active bowel sounds present 4 quadrants. Tolerating minimal diet. Positive minimal bowel movement this morning GENITOURINARY: Mooney present draining clear, yellow urine. Output overnight 70-120 mL per hour, 2020 mL in the last 24 hours INTEGUMENTARY: Skin is warm and dry with evidence of good perfusion. Anterior chest incision well approximated and covered with dry intact dressing. Bilateral EVH site well approximated without redness or drainage. NEUROLOGIC: Cranial nerves II through XII intact MUSKULOSKELETAL: Able to move all extremities, strength equal bilaterally PSYCHIATRIC: Oriented to person place and time, inappropriate at times INVASIVE LINES AND TUBES: A/V epicardial pacemaker wires present, grounded - Allied health notes Allied health notes reviewed: nursing - Labs CBC & Chem 7: 04/25/22 07:29 04/25/22 07:29 Labs: Abnormal Lab Results - Last 24 Hours (Table) 04/24/22 04/24/22 04/24/22 Range/Units 11:09 16:40 21:42 WBC (3.8-10.6) k/uL RBC (4.30-5.90) m/uL Hgb (13.0-17.5) gm/dL Hct (39.0-53.0) % MCV (80.0-100.0) fL RDW (11.5-15.5) % Sodium (137-145) mmol/L BUN (9-20) mg/dL Creatinine (0.66-1.25) mg/dL Glucose (74-99) mg/dL POC Glucose (mg/dL) 148 H 143 H 170 H (70-110) mg/dL Calcium (8.4-10.2) mg/dL Magnesium (1.6-2.3) mg/dL AST (17-59) U/L ALT (4-49) U/L Total Protein (6.3-8.2) g/dL Albumin (3.5-5.0) g/dL 04/25/22 04/25/22 04/25/22 Range/Units 07:29 07:29 07:59 WBC 12.4 H (3.8-10.6) k/uL RBC 2.33 L (4.30-5.90) m/uL Hgb 7.2 L (13.0-17.5) gm/dL Hct 23.4 L (39.0-53.0) % MCV 100.4 H (80.0-100.0) fL RDW 15.7 H (11.5-15.5) % Sodium 131 L (137-145) mmol/L BUN 85 H (9-20) mg/dL Creatinine 2.12 H (0.66-1.25) mg/dL Glucose 141 H (74-99) mg/dL POC Glucose (mg/dL) 218 H (70-110) mg/dL Calcium 7.3 L (8.4-10.2) mg/dL Magnesium 3.1 H (1.6-2.3) mg/dL AST 503 H (17-59) U/L ALT 619 H (4-49) U/L Total Protein 5.0 L (6.3-8.2) g/dL Albumin 3.1 L (3.5-5.0) g/dL - Imaging and Cardiology Chest x-ray: report reviewed, image reviewed Assessment and Plan Assessment: 1. Severe mitral valve regurgitation, status post mitral valve repair 2. Coronary artery disease, previous PCI, previous non-STEMI, status post CABG 3 3. History of paroxysmal atrial fibrillation, previous cardioversion, on Eliquis outpatient for anticoagulation, status post modified Castanon maze and ligation of left atrial appendage 4. Patent foramen ovale, status post closure 5. Tricuspid regurgitation 6. Chronic systolic congestive heart failure, ischemic cardiomyopathy with EF 40-45% 7. History of hypertension 8. History hyperlipidemia, treated, cholesterol 150, LDL 72 9. Right internal carotid stenosis 50-79% 10. Anemia with history of GI bleed in November 2021 S/P transfusion PRBCs 11. Acute on chronic renal failure, baseline creatinine 1.28-1.6 12. Diabetes mellitus type 2, preoperative hemoglobin A1c 5.6% 13. Osteoarthritis 14. Severe COPD, preoperative FEV1 41% of predicted 15. Chronic ongoing nicotine dependence 16. Remote history of pneumonia 17. Chronic low back pain, hearing disorder 18. Nasal swab positive for MSSA preoperative 19. Postoperative acute blood loss anemia, expected 20. Elevated transaminases 21. Protamine reaction intraoperative Plan: 1. Continue aspirin, Plavix, beta siomara, low dose Imdur. Statin on hold due to elevated LFT, will reintroduce when liver enzymes stabilize. 2. Amiodarone discontinued due to elevated LFTs. No anticoagulation until after all lines and tubes have been discontinued, likely will discharge on Eliquis 3. Likely will discontinue IV continuously, transition to twice a day dosing 4. Wean O2 as tolerated. Encourage incentive spirometry 10 times every hour while awake. Bronchodilators, BiPAP per pulmonology 5. Increase activity, ambulate as tolerated. PT/OT/cardiac rehab following 6. Will monitor daily labs and chest x-rays. Electronic replacement per protocol. Avoid hepatotoxic and nephrotoxic medications. 7. GI/DVT prophylaxis. 8. Insulin management per primary care service. Patient is a diabetic with a preoperative hemoglobin A1c of 5.6% on multiple oral medications, needs tight blood sugar control 9. Pain control with current medication regimen. 10. Discontinue Mooney catheter, may bladder scan and straight cath for greater than 300 mL residual 11. Strict accurate intake and output. Daily weights. 12. Consultation placed for Dr. Mora for possible inpatient rehab at discharge 13. Smoking cessation counseling and education provided to patient and family 14. More recommendations to follow based on patient's clinical course.
[2022-04-25 11:25] LABS: Glucose,Whole Blood 178 mg/dL (70-110)
--- NOTE | 2022-04-25 11:45 | P.PN ---
Subjective Patient is awaiting placement He is status post mitral valve repair, coronary artery bypass grafting and P foreclosure He sitting up comfortably in bed Hematology stable Off pressors completely Blood pressure 112/64 mmHg pulse rate in the 60s Breath sounds are reduced bilaterally Heart sounds S1 and S2 are normal Plan Continue current care Patient awaiting placement Objective - Vital Signs Vital signs: Vital Signs Temp 98 F 04/25/22 08:00 Pulse 64 04/25/22 11:00 Resp 21 04/25/22 10:00 BP 112/64 04/25/22 11:00 Pulse Ox 97 04/25/22 11:00 FiO2 100 04/22/22 16:00 Intake & Output 04/24/22 04/25/22 04/25/22 18:59 06:59 18:59 Intake Total 901.667 665.333 473 Output Total 1015 1005 545 Balance -113.333 -339.667 -72 Weight 100.2 kg Intake: IV 234 143 53 Furosemide 100 mg In 36 33 3 Sodium Chloride 0.9% 90 ml @ 3 MG/HR 3 mls/hr IV .Q24H ZULMA Rx#:[id number] NS 180 110 50 pressure bags 18 Intake, IV Titration 77.667 22.333 Amount Furosemide 100 mg In 77.667 22.333 Sodium Chloride 0.9% 90 ml @ 3 MG/HR 3 mls/hr IV .Q24H ZULMA Rx#:[id number] Oral 590 500 420 Output: Urine 1015 1005 545 Other: Voiding Method Indwelling Catheter Indwelling Catheter Indwelling Catheter ABP, PAP, CO, CI - Last Documented Arterial Blood Pressure 137/47 Pulmonary Artery Pressure 67/18 Cardiac Output 5.8 Cardiac Index 2.8 - Labs CBC & Chem 7: 04/25/22 07:29 04/25/22 07:29 Labs: Abnormal Lab Results - Last 24 Hours (Table) 04/24/22 04/24/22 04/25/22 Range/Units 16:40 21:42 07:29 WBC 12.4 H (3.8-10.6) k/uL RBC 2.33 L (4.30-5.90) m/uL Hgb 7.2 L (13.0-17.5) gm/dL Hct 23.4 L (39.0-53.0) % MCV 100.4 H (80.0-100.0) fL RDW 15.7 H (11.5-15.5) % Sodium (137-145) mmol/L BUN (9-20) mg/dL Creatinine (0.66-1.25) mg/dL Glucose (74-99) mg/dL POC Glucose (mg/dL) 143 H 170 H (70-110) mg/dL Calcium (8.4-10.2) mg/dL Magnesium (1.6-2.3) mg/dL AST (17-59) U/L ALT (4-49) U/L Total Protein (6.3-8.2) g/dL Albumin (3.5-5.0) g/dL 04/25/22 04/25/22 04/25/22 Range/Units 07:29 07:59 11:24 WBC (3.8-10.6) k/uL RBC (4.30-5.90) m/uL Hgb (13.0-17.5) gm/dL Hct (39.0-53.0) % MCV (80.0-100.0) fL RDW (11.5-15.5) % Sodium 131 L (137-145) mmol/L BUN 85 H (9-20) mg/dL Creatinine 2.12 H (0.66-1.25) mg/dL Glucose 141 H (74-99) mg/dL POC Glucose (mg/dL) 218 H 178 H (70-110) mg/dL Calcium 7.3 L (8.4-10.2) mg/dL Magnesium 3.1 H (1.6-2.3) mg/dL AST 503 H (17-59) U/L ALT 619 H (4-49) U/L Total Protein 5.0 L (6.3-8.2) g/dL Albumin 3.1 L (3.5-5.0) g/dL
--- NOTE | 2022-04-25 12:08 | P.CONS ---
History of Present Illness - Chief Complaint Cardiac debility - History of Present Illness I had the opportunity to see patient for inpatient rehab consultation the. Patient admitted to Dr. Raines April 19 for elective MVR and three-vessel CABG. Seen by Dr. Chowdhury for ICU care. Seen by Dr. moss for medical. Chest x-rays followed demonstrate cardiomegaly, congestion and bilaterally effusions. PT reports moderate assistance bed mobility and maximal assistance to stand and gait 3 feet, hand-held. OT prescribed but I am unable to find any recent notes. Previous functional history as elicited from : 72-year-old right-handed white male who is lives in a first-floor return for home with . does most of the cooking and laundry and patient does most of the driving. Otherwise independent with standing shower and gait without device. PCP Dr. Leal. He is in the process of quitting smoking and has rare drink. Review of Systems Review of systems: ENT: Hard of hearing long-standing. Eyes: Denies discharge or photophobia. Cardiac: Minimal to no sternal discomfort. Pulmonary: Mild shortness of breath. Gastrointestinal: Denies nausea, emesis, constipation, diarrhea. Genitourinary: Denies discharge or frequency. Musculoskeletal: Denies muscle or bone aches. Neurologic: Denies motor or sensory change. Endocrine: Denies shakes or sweats. Oncology: Denies cancers. Dermatologic: Denies rash, itching, pruritus. ALLERGY/immunology: Denies sneezes, rashes. Past Medical History Past Medical History: Atrial Fibrillation, Blood Disorder, COPD, Diabetes Mellitus, GI Bleed, Hearing Disorder / Deafness, Hyperlipidemia, Hypertension, Myocardial Infarction (CO), Pneumonia Additional Past Medical History / Comment(s): Anemia, had GI Bleed 11/22, had 4 units of blood. Bilateral lower extremity edema. Hx CO X2. Insomnia. Hx Pneumonia. Chronic back pain. Last Myocardial Infarction Date:: 11/2021 History of Any Multi-Drug Resistant Organisms: None Reported Past Surgical History: Back Surgery, Heart Catheterization With Stent, Joint Replacement, Orthopedic Surgery Additional Past Surgical History / Comment(s): BILATERAL KNEE REPLACEMENTS, BILATERAL SHOULDER SURGERY, ONE CARDIAC STENT, back surgery X2 (lumbar decompression and fusion), BACK INJECTIONS, COLONOSCOPY, BILATERAL CATARACTS REMOVED WITH LENS IMPLANTS, Cardioversion. Past Anesthesia/Blood Transfusion Reactions: No Reported Reaction Date of Last Stent Placement:: 2000 Smoking Status: Current some day smoker - Past Family History Father Family Medical History: No Reported History Mother Family Medical History: No Reported History Medications and Allergies Home Medications Medication Instructions Recorded Confirmed Type Atorvastatin [Lipitor] 80 mg PO HS 04/26/14 04/12/22 History Ramipril 10 mg PO QAM 04/26/14 04/12/22 History metFORMIN HCL [Glucophage] 500 mg PO BID 04/26/14 04/12/22 History Liraglutide [Victoza 3-Casey] 1.8 mg SQ DAILY 02/19/17 04/12/22 History Metoprolol Tartrate 25 mg PO QAM 02/19/17 04/12/22 History Stool Softener(Unknown Name/Do 2 tab PO DAILY 02/19/17 04/12/22 History Vit C/E/Zn/Coppr/Lutein/Zeaxan 2 cap PO DAILY 02/19/17 04/12/22 History [Preservision Areds 2 Softgel] Acetaminophen [Tylenol Extra 500 - 1,000 mg PO DIRECTED PRN 02/02/20 04/12/22 History Strength] Pioglitazone [Actos] 15 mg PO DAILY 02/02/20 04/19/22 History Apixaban [Eliquis] 5 mg PO BID 11/09/21 04/12/22 History Fluticasone/Umeclidin/Vilanter 1 inhalation INHALATION HS 11/09/21 04/12/22 History [Trelegy Ellipta 100-62.5-25] Fenofibrate 160 mg PO HS 12/22/21 04/12/22 History Ferrous Sulfate [Feosol] 325 mg PO BID 12/22/21 04/12/22 History Furosemide [Lasix] 40 mg PO BID 12/22/21 04/12/22 History Ipratropium-Albuterol Nebulize 3 ml INHALATION QID PRN 12/22/21 04/12/22 History [Duoneb 0.5 mg-3 mg/3 ml Soln] Pantoprazole Sodium [Protonix] 40 mg PO PC-LUNCH 12/22/21 04/12/22 History Repaglinide [Prandin] 0.5 mg PO AC-SUPPER 12/22/21 04/12/22 History Mupirocin [Mupirocin 2%] 1 applic NASAL BID #1 tub 04/14/22 04/19/22 Rx Allergies Allergy/AdvReac Type Severity Reaction Status Date / Time protamine AdvReac Anaphylaxis Verified 04/22/22 07:27 Physical Exam Vitals: Vital Signs Temp Pulse Resp BP Pulse Ox 04/25/22 11:00 64 112/64 97 04/25/22 10:00 70 21 123/62 93 L 04/25/22 09:00 71 12 123/62 94 L 04/25/22 08:42 68 04/25/22 08:25 68 04/25/22 08:00 98 F 70 26 H 93/80 95 04/25/22 07:00 68 22 126/68 95 04/25/22 06:00 68 23 92/56 93 L 04/25/22 05:00 66 21 112/59 99 04/25/22 04:00 98.2 F 63 15 107/58 94 L 04/25/22 03:00 68 17 118/58 94 L 04/25/22 02:00 65 18 113/55 98 04/25/22 01:00 64 21 119/55 99 04/25/22 00:00 97.8 F 64 20 104/50 98 04/24/22 23:00 64 21 130/67 96 04/24/22 22:23 70 04/24/22 22:10 70 04/24/22 22:00 72 18 147/86 96 04/24/22 21:00 75 22 109/53 95 04/24/22 20:00 97.5 F L 71 20 109/55 97 04/24/22 19:00 70 28 H 120/61 97 04/24/22 18:00 71 24 114/61 95 04/24/22 17:37 71 04/24/22 17:27 70 04/24/22 17:00 71 20 130/64 92 L 04/24/22 16:00 98.5 F 71 16 107/59 92 L 04/24/22 15:00 75 20 108/57 97 04/24/22 14:00 70 24 105/55 99 04/24/22 13:00 76 27 H 116/62 96 Intake and Output 04/24/22 04/25/22 04/25/22 22:59 06:59 14:59 Intake Total 354 376.333 473 Output Total 580 785 545 Balance -226 -408.667 -72 Intake: IV 104 104 53 Furosemide 100 mg In 24 24 3 Sodium Chloride 0.9% 90 ml @ 3 MG/HR 3 mls/hr IV .Q24H ZULMA Rx#:[id number] NS 80 80 50 Intake, IV Titration 22.333 Amount Furosemide 100 mg In 22.333 Sodium Chloride 0.9% 90 ml @ 3 MG/HR 3 mls/hr IV .Q24H ZULMA Rx#:[id number] Oral 250 250 420 Output: Urine 580 785 545 Other: Voiding Method Indwelling Catheter Indwelling Catheter Indwelling Catheter Weight 100.2 kg Skin: Atrophic, intact. General: Overweight build and comfortable appearance. Head: Normocephalic, atraumatic. Eyes: Symmetric. Pupils equal round. Ears: Symmetric. Hearing markedly diminished bilateral. Mouth: Clear. Neck: Supple. Carotid without bruit. Cardiac: Regular rate and rhythm. Heart hugger. Chest clean and dressed. Lungs: Clear anteriorly and posteriorly. Abdomen: Soft active nontender. Extremities: Normal tone. Neurological: Mental status: Alert, cooperative, pleasant. Cranial nerves: Symmetric facial tone and trapezius. Motor: Normal strength and isolation all 4 limbs. Sensation: Intact throughout. DTRs: Symmetric and equal throughout. Mobility: Patient currently eating in Chaya chair and did not attempt to stand. Results CBC & Chem 7: 04/25/22 07:29 04/25/22 07:29 Labs: Abnormal Lab Results - Last 24 Hours (Table) 04/24/22 04/24/22 04/25/22 Range/Units 16:40 21:42 07:29 WBC 12.4 H (3.8-10.6) k/uL RBC 2.33 L (4.30-5.90) m/uL Hgb 7.2 L (13.0-17.5) gm/dL Hct 23.4 L (39.0-53.0) % MCV 100.4 H (80.0-100.0) fL RDW 15.7 H (11.5-15.5) % Sodium (137-145) mmol/L BUN (9-20) mg/dL Creatinine (0.66-1.25) mg/dL Glucose (74-99) mg/dL POC Glucose (mg/dL) 143 H 170 H (70-110) mg/dL Calcium (8.4-10.2) mg/dL Magnesium (1.6-2.3) mg/dL AST (17-59) U/L ALT (4-49) U/L Total Protein (6.3-8.2) g/dL Albumin (3.5-5.0) g/dL 04/25/22 04/25/22 04/25/22 Range/Units 07:29 07:59 11:24 WBC (3.8-10.6) k/uL RBC (4.30-5.90) m/uL Hgb (13.0-17.5) gm/dL Hct (39.0-53.0) % MCV (80.0-100.0) fL RDW (11.5-15.5) % Sodium 131 L (137-145) mmol/L BUN 85 H (9-20) mg/dL Creatinine 2.12 H (0.66-1.25) mg/dL Glucose 141 H (74-99) mg/dL POC Glucose (mg/dL) 218 H 178 H (70-110) mg/dL Calcium 7.3 L (8.4-10.2) mg/dL Magnesium 3.1 H (1.6-2.3) mg/dL AST 503 H (17-59) U/L ALT 619 H (4-49) U/L Total Protein 5.0 L (6.3-8.2) g/dL Albumin 3.1 L (3.5-5.0) g/dL Assessment and Plan (1) Acute coronary syndrome Current Visit: No Status: Acute Code(s): I24.9 - ACUTE ISCHEMIC HEART DISEASE, UNSPECIFIED SNOMED Code(s): 986203957 (2) Lumbar spinal stenosis Current Visit: No Status: Acute Code(s): M48.06 - SPINAL STENOSIS, LUMBAR REGION * DO NOT USE * SNOMED Code(s): 47500953 Plan: Comments and plan: Diagnoses should also include hard of hearing. Patient reports that he was confused dramatically yesterday and is resolving nicely but still with some confusion. At this time continue to follow PT and OT with your self. I discussed possible inpatient rehab with would currently defer to ICU treatment.
--- NOTE | 2022-04-25 14:52 | P.PN ---
Progress Note - Text Progress Note Date: 04/25/22 Patient is a pleasant 72-year-old male came in the for elective mitral valve repair, CABG x 3 vessel, maze procedure, PFO closure. Patient is extubated sitting in the chair patient still has a Fackler-Varghese catheter, CVP of around 12, cardiac index 3.1 patient creatinine went up to 1.70 resulting elevated potassium of 5.5 patient is off pressor support, off nitro drip patient still has 2 mediastinal and one left-sided chest tube. 04/21/2022 Patient is evaluated in ICU today, sitting up in chair. He is postoperative day #2 for elective mitral valve repair, hematocrit bypass grafting maze procedure and PFO closure. He is on BiPAP with fio2 of 40% Continues with mediastinal/left pleural chest tubes. Continue with indwelling catheter. Received dose of IV albumin yesterday afternoon. Chest xray today showing ongoing mild pulmonary vascular congestion, increasing patchy bibasilar opacities, atelectasis vs. pulmonary edema. Currently on lasix gtt at 10mls/hr, continues on dopamine gtt at 3.68 mls/hr. Continues on insulin gtt and blood glucose remains in the 140 to 130s. Labs today showing sodium 132, potassium 6.1 improved to 5.4, BUN 41, creatinine 2.53, elevated liver enzymes. Hgb 7.3. 04/22/2022 Patient continues to be monitored closely in intensive care unit, he is postoperative day #3 for elective mitral valve repair, maze procedure, PFO closure. Managed by primary team. He had limited echocardiogram completed showing EF 45 to 50%, mild to moderate MR, moderate pulmonary hypertension with moderate TR. Chest xray today shows slight improvement in pulmonary vascular congestion. Maintained on lasix gtt at 10mls/hr, dopamine gtt, Continues with 2 mediastinal chest tubes. Continues with indwelling catheter. Continues with right IJ swan/cordis, right radial arterial line. He has been weaned off BiPAP currently on high flow cannula at 15L. He has been tolerating some diet. Continues on insulin gtt which will continue until his diet stabilizes. Current glucose in the 140s. Creatinine today 3.14. April 23: [facility] In a recliner. Tired. Little oral intake. Nasal cannula. Drips include IV dopamine and Lasix. Some shortness of breath. Mooney catheter. 04/24/2022: ICU. Up. 4 L nasal cannula. Did eat better. Edema present. On the Lasix drip 5 mg an hour. Some improvement in creatinine. 04/25/2022: ICU. Up in a recliner. Eating better. at the bedside. Edema present. Off Lasix drip. Feeling better. Creatinine coming down. LFTs improving. Home dose of Victoza was started Active Medications Albuterol/Ipratropium (Ipratropium-Albuterol 3 Ml Neb) 3 ml INHALATION RT-Q2H PRN PRN Reason: Shortness Of Breath Or Wheezing Last Admin: 04/22/22 02:27 Dose: 3 ml Albuterol/Ipratropium (Ipratropium-Albuterol 3 Ml Neb) 3 ml INHALATION RT-QID [facility] Last Admin: 04/25/22 08:24 Dose: 3 ml Ascorbic Acid (Ascorbic Acid 500 Mg Tab) 500 mg PO DAILY [facility] Last Admin: 04/25/22 09:04 Dose: 500 mg Aspirin (Aspirin 325 Mg Tab) 325 mg PO DAILY [facility] Last Admin: 04/25/22 09:04 Dose: 325 mg Benzocaine/Menthol (Benzocaine/Menthol Lozeng 1 Each Lozenge) 1 each MUCOUS MEM Q2H PRN PRN Reason: Sore Throat Bisacodyl (Bisacodyl 10 Mg Supp) 10 mg RECTAL DAILY PRN PRN Reason: Constipation Last Admin: 04/24/22 06:11 Dose: 10 mg Budesonide/Formoterol Fumarate (Symbicort 160-4.5 Mcg Inhaler) 2 puff INHALATION RT-BID [facility] Last Admin: 04/25/22 08:25 Dose: 2 puff Clopidogrel Bisulfate (Clopidogrel 75 Mg Tab) 75 mg PO DAILY [facility] Last Admin: 04/25/22 09:04 Dose: 75 mg Dextrose/Water (Dextrose 50% Syringe 50 Ml) 25 ml IVP PER PROTOCOL PRN; Pr otocol PRN Reason: Hypoglycemia Dextrose/Water (Dextrose 50% Syringe 50 Ml) 50 ml IVP PER PROTOCOL PRN; Protocol PRN Reason: Hypoglycemia Dextrose/Water (Dextrose 50% Syringe 50 Ml) 25 ml IVP PER PROTOCOL PRN; Protocol PRN Reason: Hypoglycemia Dextrose/Water (Dextrose 50% Syringe 50 Ml) 50 ml IVP PER PROTOCOL PRN; Protocol PRN Reason: Hypoglycemia Ferrous Sulfate (Ferrous Sulfate 325 Mg Tab) 325 mg PO BID [facility] Last Admin: 04/25/22 09:04 Dose: 325 mg Heparin Sodium (Porcine) (Heparin Sodium,Porcine/Pf 5,000 Unit/0.5 Ml Syringe) 5,000 unit SQ Q8HR [facility] Last Admin: 04/25/22 09:03 Dose: 5,000 unit Calcium Gluconate/Sodium (Chloride 2 gm/ IV Solution) 100 mls @ 100 mls/hr IVPB ONCE PRN PRN Reason: Ionized Calcium less than 4.4 Stop: 05/19/22 23:00 Insulin Aspart (Insulin Aspart (Novolog) 100 Unit/Ml Vial) 0 unit SQ ACHS [facility]; Protocol Last Admin: 04/25/22 12:03 Dose: 2 unit Insulin Detemir (Insulin Detemir (Levemir) 100 Unit/Ml Syr) 10 unit SQ HS [facility] Isosorbide Mononitrate (Isosorbide Mononitrate Er 15 Mg Tab) 15 mg PO DAILY [facility] Last Admin: 04/25/22 09:04 Dose: 15 mg Magnesium Hydroxide (Magnesium Hydroxide 2,400 Mg/10 Ml Cup) 2,400 mg PO BID PRN PRN Reason: Constipation Last Admin: 04/22/22 07:08 Dose: 2,400 mg Metoprolol Tartrate (Metoprolol Tartrate 12.5 Mg Tab) 12.5 mg PO BID [facility] Last Admin: 04/25/22 09:04 Dose: 12.5 mg Miscellaneous Information (Potassium Replacement Protocol 1 Each Misc) 1 each MISCELLANE DAILY PRN; Protocol PRN Reason: Per Protocol Miscellaneous Information (Magnesium Replacement Protocol 1 Each Misc) 1 each MISCELLANE DAILY PRN; Protocol PRN Reason: Per Protocol Non-Formulary Medication (Non Formulary Drug) 1 each SQ DAILY [facility] Last Admin: 04/25/22 10:02 Dose: 1 each Ondansetron HCl (Ondansetron 4 Mg/2 Ml Vial) 4 mg IVP Q6HR PRN PRN Reason: Nausea And Vomiting Pioglitazone HCl (Pioglitazone 15 Mg Tab) 15 mg PO DAILY [facility] Senna/Docusate Sodium (Sennosides-Docusate Sodium 1 Each Tab) 2 each PO HS [facility] Last Admin: 11/22/22 21:52 Dose: 2 each Sodium Chloride (Sodium Chloride 0.9% Flush 10 Ml Syringe) 10 ml IV BID [facility] Last Admin: 04/25/22 09:09 Dose: 10 ml Tramadol HCl (Tramadol 50 Mg Tab) 25 mg PO Q12HR PRN PRN Reason: Pain Last Admin: 04/25/22 02:54 Dose: 25 mg On examination: VITAL SIGNS: 98.1, 64, 19, 1 10 x 54, 95% on 3 L GENERAL APPEARANCE: Up in a recliner, more awake HEENT: Normal external appearance of nose and ear. Oral cavity normal EYES: Pupils equal. Conjunctiva normal. NECK: JVD not raised. Mass not palpable. RESPIRATORY: Respiratory effort increased. Lungs diminished breath sounds. CARDIOVASCULAR: First and second sounds normal. Edema present ABDOMEN: Soft. Liver and spleen not palpable. No tenderness. No mass palpable. Mooney catheter PSYCHIATRY: AO 3, mood and affect normal INVESTIGATIONS, reviewed in the clinical context: 04/25/2022: WBC 12.4 hemoglobin 7.2 potassium 4.5 BUN 85 creatinine 2.12 AST 503 ALT 619 04/24/2022: WBC 9.2 hemoglobin 7.1 platelets 122 potassium 5.1 BUN 77 creatinine 2.97 AST 1270 ALT 1038 WBC 8.2 hemoglobin 7.5 platelets 111 sodium 135 progression 6 BUN 67 creatinine 3.43 AST 3595 ALT 1512 Limited 2-D echocardiogram: EF 45-50%. Inferior wall hypokinesis. Moderate MR. Moderate pulmonary hypertension with moderate TR. Assessment and plan -Coronary artery disease mitral valvular disease status post CABG mitral valve repair. Followed by by cardiothoracic surgery -Acute hypoxic respiratory failure from pulmonary edema: Slow to respond 4 L nasal cannula -Diabetes Mellitus type 2 with hyperglycemia, Home dose of Victoza started. Eating much better. Start Actos. Cutback Levemir to 10 units daily at bedtime. -Paroxysmal atrial fibrillation status post modified Castanon-Maze procedure, -acute renal failure on chronic kidney disease stage II with renal failure is probably prerenal azotemia, cardiorenal syndrome.: Improving Lasix drip discontinued. Off dopamine -hyperkalemia secondary to acute renal failure: Corrected Received Lokelma. Renal diet -Acute hepatitis, likely ischemic: Significant improvement Follow closely. GI services not available in the hospital. Hold any hepatic offensive medications. Off amiodarone -COPD without any acute exacerbation DuoNeb -Hyperlipidemia Hold statins, because of elevated LFTs - coronary artery disease with previous PCI Aspirin, Lasix, Imdur, Lopressor currently on hold -Acute postprocedure blood loss anemia as expected from surgery Patient receive 2 units of PRBC, follow CBC -Chronic nicotine dependence -Moderate MR and TR Follow with cardiology -Moderate secondary probably hypertension 4 L nasal cannula. Lasix drip discontinued. Home dose of Victoza resume. Resume Actos. Cutback Levemir to 10 units at night. Fluid restriction 2000 mL daily.
[2022-04-25] MEDS: PIOGLITAZONE 15 MG TAB PO SCH (15:59)
--- NOTE | 2022-04-25 16:47 | P.PN ---
Subjective Progress Note Date: 04/25/22 On 04/23/2022, the patient is postop day #4. The patient underwent mitral valve repair and 3 vessel bypass surgery and closure of a PFO. The patient is sitting up on a chair and he seems to be calm and comfortable. His chest x-ray showing postsurgical changes/post thoracotomy changes and small effusions nonprotective changes in the lung base bilaterally. Otherwise, the patient is awake and alert and following commands. He is currently on 3 L of O2 nasal cannula with a pulse ox of 95%. His cardiac rhythm is sinus for now. Pain is under adequate control. Noted the patient has history of diabetes mellitus, chronic stage II kidney disease hyperlipidemia, the patient has had multiple orthopedic surgeries and the patient has also paroxysmal atrial fibrillation. The patient multivessel coronary artery disease as discussed earlier in the patient underwent cardiac bypass surgery. Blood work from today shows a hemoglobin 7.5 with a white cell count of 8.2 and a platelet count of 111. Sodium is at 135, potassium is at 6 with a BUN of 67 and a creatinine of 3.4 and a potassium is up to 6.0. The patient did have a shock liver situation where the ALT went up to 1512 and AST was up to 3595. Bilirubin remained of 0.9. The patient is currently on no pressors. The patient's chest tubes have been removed. In terms of blood products, he received 3 units of PRBC, 1 unit of platelets and 2 units of fresh frozen plasma postop. Currently is on Lasix drip which is running at 5 mg an hour. He was treated for his high potassium and he was given a dose of lokalma On today's evaluation of 04/24/2022, the patient is postop day #5. The patient is doing well and he has no specific complaints. He continues to diurese and the patient is currently on Lasix 3 mg an hour. The patient is currently on 4 L of O2 nasal cannula. The patient underwent mitral valve repair and 3 vessel bypass surgery and closure of a PFO. He is comfortable. Is using the incentive spirometer. Surgical one-sided dry clean and intact. The patient is currently on no pressors. At the same time, the patient was having an issue with an acute kidney injury and the creatinine is stable for now. The BUN is at 27 with a creatinine of 2.97 which is improved compared to yesterday. The patient has a white cell count of 9.2 with a hemoglobin of 7.1 and a platelet count of 122. Sodium is at 133, potassium level is at 5.1, improved compared to yesterday, the patient did have also a shock liver which is improving, AST is down to 1270 and ALTs on to 1038. Glucose at 1:30. Normal electrolytes. Alert and awake. Following commands and answering questions. No other significant events. Remains on Levemir insulin 20 units along with a sliding scale coverage. On 04/22/2022, the patient remains extubated on 3 L of oxygen by nasal cannula. Doing well. No specific complaints. He continues to diurese well. He has been improvement in renal function. The patient is on Lasix drip at 3 mg an hour and the patient's BUN is at 85 with a creatinine of 2.12. Sodium levels is 131. The WBC count is at 12.4 with a hemoglobin of 7.2 and a platelet count of 211. Liver functions is also improving as the patient is shock liver and LFTs are improving. The patient has no specific complaints. The chest x-ray from today showed cardiomegaly and pulmonary vessel congestion and bilateral pleural effusions. The patient is essentially postop day #6 Objective - Vital Signs Vital signs: Vital Signs Temp 98 F 04/25/22 08:00 Pulse 70 04/25/22 10:00 Resp 21 04/25/22 10:00 BP 123/62 04/25/22 10:00 Pulse Ox 93 L 04/25/22 10:00 FiO2 100 04/22/22 16:00 Intake & Output 04/24/22 04/25/22 04/25/22 18:59 06:59 18:59 Intake Total 901.667 665.333 463 Output Total 1015 1005 435 Balance -113.333 -339.667 28 Weight 100.2 kg Intake: IV 234 143 43 Furosemide 100 mg In 36 33 3 Sodium Chloride 0.9% 90 ml @ 3 MG/HR 3 mls/hr IV .Q24H [facility] Rx#:[id number] NS 180 110 40 pressure bags 18 Intake, IV Titration 77.667 22.333 Amount Furosemide 100 mg In 77.667 22.333 Sodium Chloride 0.9% 90 ml @ 3 MG/HR 3 mls/hr IV .Q24H [facility] Rx#:[id number] Oral 590 500 420 Output: Urine 1015 1005 435 Other: Voiding Method Indwelling Catheter Indwelling Catheter Indwelling Catheter ABP, PAP, CO, CI - Last Documented Arterial Blood Pressure 137/47 Pulmonary Artery Pressure 67/18 Cardiac Output 5.8 Cardiac Index 2.8 - Exam CONSTITUTIONAL: Appears comfortable, cooperative, very hard of hearing RESPIRATORY: Lungs sounds diminished bilaterally. Respirations even, nonlabored. Currently on 3 L high flow nasal cannula with oxygen saturation 94%. Able to achieve 1000 mL on incentive spirometry. Strong nonproductive cough. CARDIOVASCULAR: S1, S2 present. Regular rate and rhythm, sinus rhythm on telemetry. Sternum stable. Palpable peripheral pulses bilaterally. Generalized edema present. No calf pain or tenderness noted. Heart hugger in place. Antiembolism stockings, SCDs present. GASTROINTESTINAL: Abdomen soft, nontender, nondistended. Active bowel sounds present 4 quadrants. Tolerating minimal diet. Positive minimal bowel movement this morning GENITOURINARY: Mooney present draining clear, yellow urine. Output overnight 70-120 mL per hour, 2020 mL in the last 24 hours INTEGUMENTARY: Skin is warm and dry with evidence of good perfusion. Anterior chest incision well approximated and covered with dry intact dressing. Bilateral EVH site well approximated without redness or drainage. NEUROLOGIC: Cranial nerves II through XII intact MUSKULOSKELETAL: Able to move all extremities, strength equal bilaterally PSYCHIATRIC: Oriented to person place and time, inappropriate at times INVASIVE LINES AND TUBES: A/V epicardial pacemaker wires present, grounded - Labs CBC & Chem 7: 04/25/22 07:29 04/25/22 07:29 Labs: Abnormal Lab Results - Last 24 Hours (Table) 04/24/22 04/24/22 04/24/22 Range/Units 11:09 16:40 21:42 WBC (3.8-10.6) k/uL RBC (4.30-5.90) m/uL Hgb (13.0-17.5) gm/dL Hct (39.0-53.0) % MCV (80.0-100.0) fL RDW (11.5-15.5) % Sodium (137-145) mmol/L BUN (9-20) mg/dL Creatinine (0.66-1.25) mg/dL Glucose (74-99) mg/dL POC Glucose (mg/dL) 148 H 143 H 170 H (70-110) mg/dL Calcium (8.4-10.2) mg/dL Magnesium (1.6-2.3) mg/dL AST (17-59) U/L ALT (4-49) U/L Total Protein (6.3-8.2) g/dL Albumin (3.5-5.0) g/dL 04/25/22 04/25/22 04/25/22 Range/Units 07:29 07:29 07:59 WBC 12.4 H (3.8-10.6) k/uL RBC 2.33 L (4.30-5.90) m/uL Hgb 7.2 L (13.0-17.5) gm/dL Hct 23.4 L (39.0-53.0) % MCV 100.4 H (80.0-100.0) fL RDW 15.7 H (11.5-15.5) % Sodium 131 L (137-145) mmol/L BUN 85 H (9-20) mg/dL Creatinine 2.12 H (0.66-1.25) mg/dL Glucose 141 H (74-99) mg/dL POC Glucose (mg/dL) 218 H (70-110) mg/dL Calcium 7.3 L (8.4-10.2) mg/dL Magnesium 3.1 H (1.6-2.3) mg/dL AST 503 H (17-59) U/L ALT 619 H (4-49) U/L Total Protein 5.0 L (6.3-8.2) g/dL Albumin 3.1 L (3.5-5.0) g/dL Assessment and Plan Plan: 1. Severe mitral valve regurgitation, status post mitral valve repair, postoperative day #6 2. Coronary artery disease, previous PCI, previous non-STEMI, status post CABG 3, postop day #6 3. History of paroxysmal atrial fibrillation, previous cardioversion, on [facility] outpatient for anticoagulation, status post modified Castanon maze and ligation of left atrial appendage, postop day #6 4. Patent foramen ovale, status post closure, postop day #6 5. Tricuspid regurgitation 6. Chronic systolic congestive heart failure, ischemic cardiomyopathy with EF 40-45% 7. History of hypertension 8. History hyperlipidemia, treated, cholesterol 150, LDL 72 9. Right internal carotid stenosis 50-79% 10. Anemia with history of GI bleed in November 2021 S/P transfusion PRBCs 11. Acute on chronic renal failure, baseline creatinine 1.28-1.6, and the patient was found to have a secondary hyperkalemia and the potassium level is being monitored. The patient was treated accordingly. The patient's acute kidney injury is improving and the creatinine is down to 2.12 12. Diabetes mellitus type 2, preoperative hemoglobin A1c 5.6% currently on insulin drip at 3 units an hour 13. Osteoarthritis 14. Severe COPD, preoperative FEV1 41% of predicted 15. Chronic ongoing nicotine dependence 16. Remote history of pneumonia 17. Chronic low back pain, hearing disorder 18. Nasal swab positive for MSSA preoperative 19. Postoperative acute blood loss anemia, expected 20. Elevated transaminases, most likely due to shock liver and the significant elevation of the ALT and AST which are being monitored, and the level is also improving and there is a decline and LFTs 21. Protamine reaction intraoperative Plan: Keep the patient on 3 L O2 nasal cannula Continue incentive spirometer discontinue the Lasix drip Monitor LFTs [place]-Varghese catheter removed yesterday Surgical one-sided dry-cleaning and intact Hemoglobin is stable at 7.2 Chest tubes are removed yesterday The patient is going to be switched to Lantus at a dose of 20 unit LFTs are also improving We'll continue to follow
[2022-04-25 17:05] LABS: Glucose,Whole Blood 165 mg/dL (70-110)
[2022-04-25 20:37] LABS: Glucose,Whole Blood 185 mg/dL (70-110)
[2022-04-25] MEDS: SENNOSIDES-DOCUSATE SODIUM 1 EACH TAB PO SCH (20:42)
[2022-04-25] MEDS ORDERED: FUROSEMIDE 10 MG/ML 2 ML VIAL IV SCH (21:00)
[2022-04-25] MEDS ORDERED: INSULIN DETEMIR (LEVEMIR) 100 UNIT/ML SYR SQ SCH (21:00)
[2022-04-26] MEDS: HEPARIN SODIUM,PORCINE/PF 5,000 UNIT/0.5 ML SYRINGE SQ SCH ×4 (00:38→23:47)
[2022-04-26 06:34] LABS: Glucose,Whole Blood 146 mg/dL (70-110)
[2022-04-26] MEDS: INSULIN ASPART (NovoLOG) 100 UNIT/ML VIAL SQ SCH ×4 (06:35→20:21)
--- NOTE | 2022-04-26 07:50 | XR ---
EXAMINATION TYPE: XR chest 1V portable DATE OF EXAM: 04/26/2022 COMPARISON: 04/25/2022 HISTORY: Postcardiac surgery TECHNIQUE: Single frontal view of the chest is obtained. FINDINGS: There is a persistent opacity obscuring the right hemidiaphragm and right likely combinati on of atelectasis and pleural effusion. The opacity in the left upper lobe seen on the prior study kwok s resolved in the interval. 3. The heart is mildly prominent. The osseous structures are intact. There is been rotator cuff repai r on the right. There are median sternotomy wires. IMPRESSION: 1. No change in the right lower lobe opacity as described above. 2. Clearing of the opacity in the left upper lobe. 3. Persistent mild to moderate cardiomegaly
[2022-04-26] MEDS: FERROUS SULFATE 325 MG TAB PO SCH ×2 (08:50→20:23)
[2022-04-26] MEDS: PIOGLITAZONE 15 MG TAB PO SCH (08:50)
[2022-04-26] MEDS: CLOPIDOGREL 75 MG TAB PO SCH (08:50)
[2022-04-26] MEDS: ASCORBIC ACID 500 MG TAB PO SCH (08:50)
[2022-04-26] MEDS: NON FORMULARY DRUG SQ SCH (08:51)
[2022-04-26] MEDS: METOPROLOL TARTRATE 12.5 MG TAB PO SCH ×2 (08:51→20:22)
[2022-04-26] MEDS: ASPIRIN 325 MG TAB PO SCH (08:51)
[2022-04-26] MEDS: ISOSORBIDE MONONITRATE ER 15 MG TAB PO SCH (08:51)
[2022-04-26 09:03] LABS: Calcium 7.4 mg/dL (8.4-10.2); Magnesium 2.9 mg/dL (1.6-2.3); Potassium 4.6 mmol/L (3.5-5.1); Total Bilirubin 1.2 mg/dL (0.2-1.3); Total Protein 4.9 g/dL (6.3-8.2)
[2022-04-26] MEDS: IPRATROPIUM-ALBUTEROL 3 ML NEB INHALATION SCH ×4 (09:13→20:51)
[2022-04-26] MEDS: SYMBICORT 160-4.5 MCG INHALER INHALATION SCH ×2 (09:13→20:51)
[2022-04-26 09:24] LABS: HGB 7.4 gm/dL (13.0-17.5); Hypochromasia Marked; MCH 31.6 pg (25.0-35.0); Macrocytosis Slight; Mean Platelet Volume 10.6; Poikilocytosis Slight; RBC 2.36 m/uL (4.30-5.90); RDW 15.6 % (11.5-15.5); WBC 9.1 k/uL (3.8-10.6)
--- NOTE | 2022-04-26 09:36 | P.PN ---
Subjective The patient is a 72-year-old male who is currently admitted to the hospital after undergoing CABG 3 with mitral valve repair and PFO closure on April 19. Postoperative complications include acute kidney injury, hypotension, and respiratory insufficiency requiring BiPAP. 04/26 Patient seen and examined. Patient admits he is still very edematous. His Lasix were stopped yesterday however continues to have significant upper and lower extremity edema. His creatinine has been improving close to back to baseline 1.5 today. Liver enzymes also have been improving. Denies any chest pain or pressure. GENERAL: Ill-appearing, well-nourished and in no acute distress. NECK: Supple without JVD or thyromegaly. LUNGS: Breath sounds diminished to auscultation bilaterally. Respiration equal and unlabored. No wheezes, rales or rhonchi. HEART: Regular rate and rhythm. Soft systolic murmur. No rubs or gallops. S1 and S2 heard. EXTREMITIES: Normal range of motion, 3+ LE edema. No pedal pulses. VITALS: Vitals reviewed IMPRESSION: Coronary artery disease status post CABG 3 Mitral regurgitation, status post mitral valve repair PFO, status post closure Acute kidney injury, improving Hyperkalemia, secondary to a JENIFFER Elevated liver enzymes, likely due to shock liver Acute on chronic diastolic heart failure, LV EF 45-50% PLAN: Continue supportive care Patient remains very edematous and we will continue with IV diuresis. Monitor ins and outs. Monitor kidney function and liver enzymes however appear to be improving. Further recommendations will be based upon clinical course Objective - Vital Signs Vital signs: Vital Signs Temp 97.8 F 04/26/22 04:00 Pulse 68 04/26/22 09:24 Resp 12 04/26/22 09:24 BP 141/55 04/26/22 07:00 Pulse Ox 96 04/26/22 09:13 FiO2 100 04/22/22 16:00 Intake & Output 04/25/22 04/26/22 04/26/22 18:59 06:59 18:59 Intake Total 1353 560 Output Total 1100 1060 Balance 253 -500 Weight 100.7 kg Intake: IV 63 Furosemide 100 mg In 3 Sodium Chloride 0.9% 90 ml @ 3 MG/HR 3 mls/hr IV .Q24H [facility] Rx#:[id number] NS 60 Oral 1290 560 Output: Urine 1100 1060 Other: Voiding Method Indwelling Catheter Indwelling Catheter # Bowel Movements 1 ABP, PAP, CO, CI - Last Documented Arterial Blood Pressure 137/47 Pulmonary Artery Pressure 67/18 Cardiac Output 5.8 Cardiac Index 2.8 - Labs CBC & Chem 7: 04/26/22 07:58 04/26/22 07:58 Labs: Abnormal Lab Results - Last 24 Hours (Table) 04/25/22 04/25/22 04/25/22 Range/Units 11: 17:03 20:36 RBC (4.30-5.90) m/uL Hgb (13.0-17.5) gm/dL Hct (39.0-53.0) % MCV (80.0-100.0) fL RDW (11.5-15.5) % Sodium (137-145) mmol/L BUN (9-20) mg/dL Creatinine (0.66-1.25) mg/dL Glucose (74-99) mg/dL POC Glucose (mg/dL) 178 H 165 H 185 H (70-110) mg/dL Calcium (8.4-10.2) mg/dL Magnesium (1.6-2.3) mg/dL AST (17-59) U/L ALT (4-49) U/L Total Protein (6.3-8.2) g/dL Albumin (3.5-5.0) g/dL 04/26/22 04/26/22 04/26/22 Range/Units 06:33 07:58 07:58 RBC 2.36 L (4.30-5.90) m/uL Hgb 7.4 L (13.0-17.5) gm/dL Hct 24.0 L (39.0-53.0) % MCV 102.0 H (80.0-100.0) fL RDW 15.6 H (11.5-15.5) % Sodium 133 L (137-145) mmol/L BUN 83 H (9-20) mg/dL Creatinine 1.54 H (0.66-1.25) mg/dL Glucose 176 H (74-99) mg/dL POC Glucose (mg/dL) 146 H (70-110) mg/dL Calcium 7.4 L (8.4-10.2) mg/dL Magnesium 2.9 H (1.6-2.3) mg/dL AST 266 H (17-59) U/L ALT 477 H (4-49) U/L Total Protein 4.9 L (6.3-8.2) g/dL Albumin 3.0 L (3.5-5.0) g/dL
[2022-04-26 10:11] LABS: Platelet Count 101 k/uL (150-450)
[2022-04-26] MEDS: FUROSEMIDE 10 MG/ML 4 ML VIAL IV SCH ×2 (10:25→20:22)
[2022-04-26 11:35] LABS: Glucose,Whole Blood 182 mg/dL (70-110)
--- NOTE | 2022-04-26 12:56 | P.PN ---
Subjective Progress Note Date: 04/26/22 Principal diagnosis: Severe mitral valve regurgitation, coronary artery disease, paroxysmal atrial fibrillation, patent foramen ovale, tricuspid regurgitation, chronic systolic congestive heart failure. Past medical history significant for hypertension, hyperlipidemia, coronary artery disease with history of previous PCI, non-ST elevated myocardial infarction in November 2021, ischemic cardiomyopathy with EF 40- 45%, right internal carotid stenosis 50-79%, renal insufficiency, anemia with history of GI bleed in November 2021 S/P transfusion PRBCs, diabetes mellitus type 2, osteoarthritis, severe COPD, chronic ongoing nicotine dependence, remote history of pneumonia, chronic low back pain and hearing disorder. Nasal swab positive for MSSA preoperative. POD #7 Mitral valve repair with 28 mm physio-2 ring, CABG 3 with saphenous vein grafts to first diagonal, obtuse marginal, posterior descending coronary arteries, closure of PFO, endovascular vein harvest, modified Castanon maze procedure with full left-sided lesion set and ligation of the left atrial appendage, SCOTT by anesthesia. Protamine reaction intraoperative Postoperative acute blood loss anemia, expected given his history of anemia, hemodilution and cardiopulmonary bypass. Acute on chronic kidney failure, likely from hypotension from intraoperative protamine reaction. Elevated transaminases, likely from hypotension from intraoperative protamine reaction. The patient was seen and examined in follow-up this morning 04/26/2022 at his bedside in the intensive care unit. Currently he is sitting up to the bedside chair, is awake, alert, oriented 3 and is in no acute apparent distress. He remains hemodynamically stable and is currently on no on a topical pressure support. Denies any complaints of pain or shortness of breath at this time. Oxygen saturations are 94% on 3 L nasal cannula and he is achieving 1000 mL on his incentive spirometry with much encouragement. Mooney catheter remains in place for accurate I's and O's. Laboratory results today show a CBC count of 9.1, hemoglobin 7.4, hematocrit 24.0, platelets 101, sodium 133, potassium 4.6 BUN 83, creatinine 1.54, glucose 176, and his liver enzymes are trending down with his AST 266 and ALT 477. Chest x-ray was reviewed. Patient is ambulating in the intensive care unit hallway with assistance from nursing and therapy staff. Objective - Vital Signs Vital signs: Vital Signs Temp 97.6 F 04/26/22 08:00 Pulse 61 04/26/22 11:50 Resp 14 04/26/22 11:50 BP 119/61 04/26/22 11:00 Pulse Ox 94 L 04/26/22 11:00 FiO2 100 04/22/22 16:00 Intake & Output 04/25/22 04/26/22 04/26/22 18:59 06:59 18:59 Intake Total 1353 560 Output Total 1100 1060 640 Balance 253 -500 -640 Weight 100.7 kg Intake: IV 63 Furosemide 100 mg In 3 Sodium Chloride 0.9% 90 ml @ 3 MG/HR 3 mls/hr IV .Q24H ZULMA Rx#:[id number] NS 60 Oral 1290 560 Output: Urine 1100 1060 640 Other: Voiding Method Indwelling Catheter Indwelling Catheter Indwelling Catheter # Bowel Movements 1 ABP, PAP, CO, CI - Last Documented Arterial Blood Pressure 137/47 Pulmonary Artery Pressure 67/18 Cardiac Output 5.8 Cardiac Index 2.8 - Exam CONSTITUTIONAL: Sitting up to the bedside chair in the intensive care unit, appears comfortable, cooperative, no apparent acute distress. HEENT: Neck is supple, no JVD, no lymphadenopathy. RESPIRATORY: Lungs sounds essentially clear throughout, few scattered expiratory wheezes to his bilateral bases. Respirations are symmetrical and nonlabored. Currently on 3 L nasal cannula with oxygen saturations 94%. Able to achieve 1000 mL on incentive spirometry. Strong cough. CARDIOVASCULAR: Regular rhythm and rate. S1 and S2 present, negative for S3, gallop or murmur. Sternum is stable. Palpable peripheral pulses bilaterally, +1 edema to his bilateral lower extremities. No calf pain or tenderness noted. Heart hugger in place with patient demonstrating appropriate use. Knee-high RAFAEL hose and sequential compression devices in place to his bilateral lower extremities. GASTROINTESTINAL: Abdomen soft, nontender, nondistended. Active bowel sounds present 4 quadrants. Tolerating diet. Passing flatus. No guarding or rigidity. Bowel movement this a.m. GENITOURINARY: Mooney present draining clear, yellow urine. Urine output 865 mL in the last 8 hours. INTEGUMENTARY: Skin is warm and dry with no evidence of clubbing or cyanosis. Midline sternal incision clean dry and well approximated, covered with dry intact dressing. Bilateral lower extremity EVH sites well approximated without redness or drainage. NEUROLOGIC: Cranial nerves II through XII intact. No focal deficits. MUSKULOSKELETAL: Able to move all extremities, strength equal bilaterally, generalized weakness. PSYCHIATRIC: Alert and oriented to person place and time, appropriate affect, intact judgment and insight. INVASIVE LINES AND TUBES: Atrial and ventricular epicardial pacemaker wires in place and grounded. - Allied health notes Allied health notes reviewed: nursing - Labs CBC & Chem 7: 04/26/22 07:58 04/26/22 07:58 Labs: Abnormal Lab Results - Last 24 Hours (Table) 04/25/22 04/25/22 04/26/22 Range/Units 17:03 20:36 06:33 RBC (4.30-5.90) m/uL Hgb (13.0-17.5) gm/dL Hct (39.0-53.0) % MCV (80.0-100.0) fL RDW (11.5-15.5) % Plt Count (150-450) k/uL Sodium (137-145) mmol/L BUN (9-20) mg/dL Creatinine (0.66-1.25) mg/dL Glucose (74-99) mg/dL POC Glucose (mg/dL) 165 H 185 H 146 H (70-110) mg/dL Calcium (8.4-10.2) mg/dL Magnesium (1.6-2.3) mg/dL AST (17-59) U/L ALT (4-49) U/L Total Protein (6.3-8.2) g/dL Albumin (3.5-5.0) g/dL 04/26/22 04/26/22 04/26/22 Range/Units 07:58 07:58 11:33 RBC 2.36 L (4.30-5.90) m/uL Hgb 7.4 L (13.0-17.5) gm/dL Hct 24.0 L (39.0-53.0) % MCV 102.0 H (80.0-100.0) fL RDW 15.6 H (11.5-15.5) % Plt Count 101 L D (150-450) k/uL Sodium 133 L (137-145) mmol/L BUN 83 H (9-20) mg/dL Creatinine 1.54 H (0.66-1.25) mg/dL Glucose 176 H (74-99) mg/dL POC Glucose (mg/dL) 182 H (70-110) mg/dL Calcium 7.4 L (8.4-10.2) mg/dL Magnesium 2.9 H (1.6-2.3) mg/dL AST 266 H (17-59) U/L ALT 477 H (4-49) U/L Total Protein 4.9 L (6.3-8.2) g/dL Albumin 3.0 L (3.5-5.0) g/dL - Imaging and Cardiology Chest x-ray: report reviewed, image reviewed Assessment and Plan Assessment: 1. Severe mitral valve regurgitation, status post mitral valve repair 2. Coronary artery disease, previous PCI, previous non-STEMI, status post CABG 3 3. History of paroxysmal atrial fibrillation, previous cardioversion, on Eliquis outpatient for anticoagulation, status post modified Castanon maze and ligation of left atrial appendage 4. Patent foramen ovale, status post closure 5. Tricuspid regurgitation 6. Chronic systolic congestive heart failure, ischemic cardiomyopathy with EF 40-45% 7. History of hypertension 8. History hyperlipidemia, treated, cholesterol 150, LDL 72 9. Right internal carotid stenosis 50-79% 10. Anemia with history of GI bleed in November 2021 S/P transfusion PRBCs 11. Acute on chronic renal failure, baseline creatinine 1.28-1.6 12. Diabetes mellitus type 2, preoperative hemoglobin A1c 5.6% 13. Osteoarthritis 14. Severe COPD, preoperative FEV1 41% of predicted 15. Chronic ongoing nicotine dependence 16. Remote history of pneumonia 17. Chronic low back pain, hearing disorder 18. Nasal swab positive for MSSA preoperative 19. Postoperative acute blood loss anemia, expected 20. Elevated transaminases 21. Protamine reaction intraoperative Plan: 1. Continue aspirin, Plavix, beta siomara, and low dose Imdur. Continue to hold statin due to elevated LFT, will reintroduce when liver enzymes stabilize. 2. Amiodarone discontinued due to elevated LFTs. No anticoagulation until after all lines and tubes have been discontinued, likely will discharge on Eliquis. 3. Continue Lasix 40 mg IV every 12 hours. 4. Wean O2 as tolerated. Encourage incentive spirometry 10 times every hour while awake. Bronchodilators, BiPAP per pulmonology. 5. Increase activity, ambulate as tolerated. PT/OT/cardiac rehab following. 6. Will monitor daily labs and chest x-rays. Electronic replacement per protocol. Avoid hepatotoxic and nephrotoxic medications. 7. GI/DVT prophylaxis. 8. Insulin management per primary care service. Patient is a diabetic with a preoperative hemoglobin A1c of 5.6% on multiple oral medications, needs tight blood sugar control. 9. Pain control with current medication regimen. 10. Discontinue Mooney catheter, may bladder scan and straight cath for greater than 300 mL residual. 11. Strict accurate intake and output. Daily weights. 12. Dr. Mora consult noted and appreciated. 13. Smoking cessation counseling and education provided to patient and family. 14. More recommendations to follow based on patient's clinical course. Time with Patient: Greater than 30
--- NOTE | 2022-04-26 13:13 | P.PN ---
Progress Note - Text Progress Note Date: 04/26/22 Patient is a pleasant 72-year-old male came in the for elective mitral valve repair, CABG x 3 vessel, maze procedure, PFO closure. Patient is extubated sitting in the chair patient still has a [place] catheter, CVP of around 12, cardiac index 3.1 patient creatinine went up to 1.70 resulting elevated potassium of 5.5 patient is off pressor support, off nitro drip patient still has 2 mediastinal and one left-sided chest tube. 04/21/2022 Patient is evaluated in ICU today, sitting up in chair. He is postoperative day #2 for elective mitral valve repair, hematocrit bypass grafting maze procedure and PFO closure. He is on BiPAP with fio2 of 40% Continues with mediastinal/left pleural chest tubes. Continue with indwelling catheter. Received dose of IV albumin yesterday afternoon. Chest xray today showing ongoing mild pulmonary vascular congestion, increasing patchy bibasilar opacities, atelectasis vs. pulmonary edema. Currently on lasix gtt at 10mls/hr, continues on dopamine gtt at 3.68 mls/hr. Continues on insulin gtt and blood glucose remains in the 140 to 130s. Labs today showing sodium 132, potassium 6.1 improved to 5.4, BUN 41, creatinine 2.53, elevated liver enzymes. Hgb 7.3. 04/22/2022 Patient continues to be monitored closely in intensive care unit, he is postoperative day #3 for elective mitral valve repair, maze procedure, PFO closure. Managed by primary team. He had limited echocardiogram completed showing EF 45 to 50%, mild to moderate MR, moderate pulmonary hypertension with moderate TR. Chest xray today shows slight improvement in pulmonary vascular congestion. Maintained on lasix gtt at 10mls/hr, dopamine gtt, Continues with 2 mediastinal chest tubes. Continues with indwelling catheter. Continues with right IJ swan/cordis, right radial arterial line. He has been weaned off BiPAP currently on high flow cannula at 15L. He has been tolerating some diet. Continues on insulin gtt which will continue until his diet stabilizes. Current glucose in the 140s. Creatinine today 3.14. April 23: I assumed care of patient today from [facility] ICU. In a recliner. Tired. Little oral intake. Nasal cannula. Drips include IV dopamine and Lasix. Some shortness of breath. Mooney catheter. 04/24/2022: ICU. Up. 4 L nasal cannula. Did eat better. Edema present. On the Lasix drip 5 mg an hour. Some improvement in creatinine. 04/25/2022: ICU. Up in a recliner. Eating better. at the bedside. Edema present. Off Lasix drip. Feeling better. Creatinine coming down. LFTs improving. Home dose of Victoza was started 04/26/2022: ICU. Up in a recliner. 4 L nasal cannula. Eating about 50%. Accu-Cheks noted. Active Medications Albuterol/Ipratropium (Ipratropium-Albuterol 3 Ml Neb) 3 ml INHALATION RT-Q2H PRN PRN Reason: Shortness Of Breath Or Wheezing Last Admin: 04/22/22 02:27 Dose: 3 ml Albuterol/Ipratropium (Ipratropium-Albuterol 3 Ml Neb) 3 ml INHALATION RT-QID [facility] Last Admin: 04/26/22 11:39 Dose: 3 ml Ascorbic Acid (Ascorbic Acid 500 Mg Tab) 500 mg PO DAILY [facility] Last Admin: 04/26/22 08:50 Dose: 500 mg Aspirin (Aspirin 325 Mg Tab) 325 mg PO DAILY [facility] Last Admin: 04/26/22 08:51 Dose: 325 mg Benzocaine/Menthol (Benzocaine/Menthol Lozeng 1 Each Lozenge) 1 each MUCOUS MEM Q2H PRN PRN Reason: Sore Throat Bisacodyl (Bisacodyl 10 Mg Supp) 10 mg RECTAL DAILY PRN PRN Reason: Constipation Last Admin: 04/24/22 06:11 Dose: 10 mg Budesonide/Formoterol Fumarate (Symbicort 160-4.5 Mcg Inhaler) 2 puff INHALATION RT-BID [facility] Last Admin: 04/26/22 09:13 Dose: 2 puff Clopidogrel Bisulfate (Clopidogrel 75 Mg Tab) 75 mg PO DAILY [facility] Last Admin: 04/26/22 08:50 Dose: 75 mg Dextrose/Water (Dextrose 50% Syringe 50 Ml) 25 ml IVP PER PROTOCOL PRN; Protocol PRN Reason: Hypoglycemia Dextrose/Water (Dextrose 50% Syringe 50 Ml) 50 ml IVP PER PROTOCOL PRN; Protocol PRN Reason: Hypoglycemia Dextrose/Water (Dextrose 50% Syringe 50 Ml) 25 ml IVP PER PROTOCOL PRN; Protocol PRN Reason: Hypoglycemia Dextrose/Water (Dextrose 50% Syringe 50 Ml) 50 ml IVP PER PROTOCOL PRN; Protocol PRN Reason: Hypoglycemia Ferrous Sulfate (Ferrous Sulfate 325 Mg Tab) 325 mg PO BID [facility] Last Admin: 04/26/22 08:50 Dose: 325 mg Furosemide (Furosemide 10 Mg/Ml 4 Ml Vial) 40 mg IV Q12HR [facility] Last Admin: 04/26/22 10:25 Dose: 40 mg Heparin Sodium (Porcine) (Heparin Sodium,Porcine/Pf 5,000 Unit/0.5 Ml Syringe) 5,000 unit SQ Q8HR [facility] Last Admin: 04/26/22 08:50 Dose: 5,000 unit Calcium Gluconate/Sodium (Chloride 2 gm/ IV Solution) 100 mls @ 100 mls/hr IVPB ONCE PRN PRN Reason: Ionized Calcium less than 4.4 Stop: 05/19/22 23:00 Insulin Aspart (Insulin Aspart (Novolog) 100 Unit/Ml Vial) 0 unit SQ ACHS [facility]; Protocol Last Admin: 04/26/22 12:24 Dose: 2 unit Isosorbide Mononitrate (Isosorbide Mononitrate Er 15 Mg Tab) 15 mg PO DAILY [facility] Last Admin: 04/26/22 08:51 Dose: 15 mg Magnesium Hydroxide (Magnesium Hydroxide 2,400 Mg/10 Ml Cup) 2,400 mg PO BID PRN PRN Reason: Constipation Last Admin: 04/22/22 07:08 Dose: 2,400 mg Metoprolol Tartrate (Metoprolol Tartrate 12.5 Mg Tab) 12.5 mg PO BID [facility] Last Admin: 04/26/22 08:51 Dose: 12.5 mg Miscellaneous Information (Potassium Replacement Protocol 1 Each Misc) 1 each MISCELLANE DAILY PRN; Protocol PRN Reason: Per Protocol Miscellaneous Information (Magnesium Replacement Protocol 1 Each Misc) 1 each MISCELLANE DAILY PRN; Protocol PRN Reason: Per Protocol Non-Formulary Medication (Non Formulary Drug) 1 each SQ DAILY [facility] Last Admin: 04/26/22 08:51 Dose: 1 each Ondansetron HCl (Ondansetron 4 Mg/2 Ml Vial) 4 mg IVP Q6HR PRN PRN Reason: Nausea And Vomiting Pioglitazone HCl (Pioglitazone 15 Mg Tab) 15 mg PO DAILY [facility] Last Admin: 04/26/22 08:50 Dose: 15 mg Senna/Docusate Sodium (Sennosides-Docusate Sodium 1 Each Tab) 2 each PO HS [facility] Last Admin: 04/25/22 20:42 Dose: 2 each Sodium Chloride (Sodium Chloride 0.9% Flush 10 Ml Syringe) 10 ml IV BID [facility] Last Admin: 04/26/22 09:00 Dose: 10 ml Tramadol HCl (Tramadol 50 Mg Tab) 25 mg PO Q12HR PRN PRN Reason: Pain Last Admin: 04/25/22 02:54 Dose: 25 mg On examination: VITAL SIGNS: 97.6, 69, 13, 105/52, 98% on 3 L GENERAL APPEARANCE: Up in a recliner, not in distress HEENT: Normal external appearance of nose and ear. Oral cavity normal EYES: Pupils equal. Conjunctiva normal. NECK: JVD not raised. Mass not palpable. RESPIRATORY: Respiratory effort increased. Lungs diminished breath sounds. CARDIOVASCULAR: First and second sounds normal. Edema present ABDOMEN: Soft. Liver and spleen not palpable. No tenderness. No mass palpable. Mooney catheter PSYCHIATRY: AO 3, mood and affect normal INVESTIGATIONS, reviewed in the clinical context: 04/26/2022: WBC 9.1 hemoglobin 7.4 platelets 101 potassium 4.6 BUN 83 creatinine 1.5 for AST 266 ALT 477 04/25/2022: WBC 12.4 hemoglobin 7.2 potassium 4.5 BUN 85 creatinine 2.12 AST 503 ALT 619 04/24/2022: WBC 9.2 hemoglobin 7.1 platelets 122 potassium 5.1 BUN 77 creatinine 2.97 AST 1270 ALT 1038 WBC 8.2 hemoglobin 7.5 platelets 111 sodium 135 progression 6 BUN 67 creatinine 3.43 AST 3595 ALT 1512 Limited 2-D echocardiogram: EF 45-50%. Inferior wall hypokinesis. Moderate MR. Moderate pulmonary hypertension with moderate TR. Assessment and plan -Coronary artery disease mitral valvular disease status post CABG mitral valve repair. Followed by by cardiothoracic surgery -Acute hypoxic respiratory failure from pulmonary edema: Improving 3 L nasal cannula -Diabetes Mellitus type 2 with hyperglycemia, Victoza , Actos. Levemir 8 units daily at bedtime -Paroxysmal atrial fibrillation status post modified Castanon-Maze procedure, -acute renal failure on chronic kidney disease stage II with renal failure is probably prerenal azotemia, cardiorenal syndrome.: Improving Lasix drip discontinued. Off dopamine. Creatinine peaked at 3.43. Down to 1.5 for -hyperkalemia secondary to acute renal failure: Corrected Received Lokelma. Renal diet -Acute hepatitis, likely ischemic: Improving Follow closely. GI services not available in the hospital. Hold any hepatic offensive medications. Off amiodarone -COPD without any acute exacerbation DuoNeb -Hyperlipidemia Hold statins, because of elevated LFTs - coronary artery disease with previous PCI Aspirin, Lasix, Imdur, Lopressor currently on hold -Acute postprocedure blood loss anemia as expected from surgery Patient receive 2 units of PRBC, follow CBC -Chronic nicotine dependence -Moderate MR and TR Follow with cardiology -Moderate secondary probably hypertension 3 L nasal cannula. Change Levemir to 8 units at night. Other medications to continue. Incentive spirometry. Discussed with patient..
[2022-04-26] MEDS: traMADol 50 MG TAB PO SCH (14:27)
--- NOTE | 2022-04-26 15:12 | P.PN ---
Subjective Progress Note Date: 04/26/22 On 04/23/2022, the patient is postop day #4. The patient underwent mitral valve repair and 3 vessel bypass surgery and closure of a PFO. The patient is sitting up on a chair and he seems to be calm and comfortable. His chest x-ray showing postsurgical changes/post thoracotomy changes and small effusions nonprotective changes in the lung base bilaterally. Otherwise, the patient is awake and alert and following commands. He is currently on 3 L of O2 nasal cannula with a pulse ox of 95%. His cardiac rhythm is sinus for now. Pain is under adequate control. Noted the patient has history of diabetes mellitus, chronic stage II kidney disease hyperlipidemia, the patient has had multiple orthopedic surgeries and the patient has also paroxysmal atrial fibrillation. The patient multivessel coronary artery disease as discussed earlier in the patient underwent cardiac bypass surgery. Blood work from today shows a hemoglobin 7.5 with a white cell count of 8.2 and a platelet count of 111. Sodium is at 135, potassium is at 6 with a BUN of 67 and a creatinine of 3.4 and a potassium is up to 6.0. The patient did have a shock liver situation where the ALT went up to 1512 and AST was up to 3595. Bilirubin remained of 0.9. The patient is currently on no pressors. The patient's chest tubes have been removed. In terms of blood products, he received 3 units of PRBC, 1 unit of platelets and 2 units of fresh frozen plasma postop. Currently is on Lasix drip which is running at 5 mg an hour. He was treated for his high potassium and he was given a dose of lokalma On today's evaluation of 04/24/2022, the patient is postop day #5. The patient is doing well and he has no specific complaints. He continues to diurese and the patient is currently on Lasix 3 mg an hour. The patient is currently on 4 L of O2 nasal cannula. The patient underwent mitral valve repair and 3 vessel bypass surgery and closure of a PFO. He is comfortable. Is using the incentive spirometer. Surgical one-sided dry clean and intact. The patient is currently on no pressors. At the same time, the patient was having an issue with an acute kidney injury and the creatinine is stable for now. The BUN is at 27 with a creatinine of 2.97 which is improved compared to yesterday. The patient has a white cell count of 9.2 with a hemoglobin of 7.1 and a platelet count of 122. Sodium is at 133, potassium level is at 5.1, improved compared to yesterday, the patient did have also a shock liver which is improving, AST is down to 1270 and ALTs on to 1038. Glucose at 1:30. Normal electrolytes. Alert and awake. Following commands and answering questions. No other significant events. Remains on Levemir insulin 20 units along with a sliding scale coverage. On 04/25/2022, the patient remains extubated on 3 L of oxygen by nasal cannula. Doing well. No specific complaints. He continues to diurese well. He has been improvement in renal function. The patient is on Lasix drip at 3 mg an hour and the patient's BUN is at 85 with a creatinine of 2.12. Sodium levels is 131. The WBC count is at 12.4 with a hemoglobin of 7.2 and a platelet count of 211. Liver functions is also improving as the patient is shock liver and LFTs are improving. The patient has no specific complaints. The chest x-ray from today showed cardiomegaly and pulmonary vessel congestion and bilateral pleural effusions. The patient is essentially postop day #6 On 04/26/2022, the patient is postop day #7, the patient remains on 3 L of oxygen by nasal cannula. Repeat chest x-ray was done today and the patient shows improvement in volume status although it is not completely. The patient continues to have some residual effusion in the lung bases. Meanwhile, LFTs are improving and is consistent with shock liver disease improving. AST is down to 266 with an LDL 477 and bilirubin of 1.2. The patient also has a improvement in renal function and the BUN is down to 83 with a creatinine of 1.54. Sodium is at 133, potassium is at 4.6, bicarb is 24 with a chloride of 99. The white cell cause of 9.1 with a hemoglobin of 7.4. Cardiac rhythm is sinus. No chest tube. The patient using incentive spirometer and falling approximately 1000. The patient remains on Lasix 40 mg IV every 12 hours. Ultram for pain control. The patient on a combination of aspirin and Plavix. The patient is also on metoprolol 12.5 mg by mouth twice a day. Objective - Vital Signs Vital signs: Vital Signs Temp 97.9 F 04/26/22 12:00 Pulse 67 04/26/22 15:00 Resp 21 04/26/22 15:00 BP 97/76 04/26/22 15:00 Pulse Ox 96 04/26/22 15:00 FiO2 100 04/22/22 16:00 Intake & Output 04/25/22 04/26/22 04/26/22 18:59 06:59 18:59 Intake Total 1353 560 240 Output Total 1100 1060 810 Balance 253 -500 -570 Weight 100.7 kg Intake: IV 63 Furosemide 100 mg In 3 Sodium Chloride 0.9% 90 ml @ 3 MG/HR 3 mls/hr IV .Q24H ZULMA Rx#:[id number] NS 60 Oral 1290 560 240 Output: Urine 1100 1060 810 Other: Voiding Method Indwelling Catheter Indwelling Catheter Indwelling Catheter # Bowel Movements 1 ABP, PAP, CO, CI - Last Documented Arterial Blood Pressure 137/47 Pulmonary Artery Pressure 67/18 Cardiac Output 5.8 Cardiac Index 2.8 - Exam CONSTITUTIONAL: Sitting up to the bedside chair in the intensive care unit, appears comfortable, cooperative, no apparent acute distress. HEENT: Neck is supple, no JVD, no lymphadenopathy. RESPIRATORY: Lungs sounds essentially clear throughout, few scattered expiratory wheezes to his bilateral bases. Respirations are symmetrical and non labored. Currently on 3 L nasal cannula with oxygen saturations 94%. Able to achieve 1000 mL on incentive spirometry. Strong cough. CARDIOVASCULAR: Regular rhythm and rate. S1 and S2 present, negative for S3, gallop or murmur. Sternum is stable. Palpable peripheral pulses bilaterally, +1 edema to his bilateral lower extremities. No calf pain or tenderness noted. Heart hugger in place with patient demonstrating appropriate use. Knee-high RAFAEL hose and sequential compression devices in place to his bilateral lower extremities. GASTROINTESTINAL: Abdomen soft, nontender, nondistended. Active bowel sounds present 4 quadrants. Tolerating diet. Passing flatus. No guarding or rigidi ty. Bowel movement this a.m. GENITOURINARY: Mooney present draining clear, yellow urine. Urine output 865 mL in the last 8 hours. INTEGUMENTARY: Skin is warm and dry with no evidence of clubbing or cyanosis. Midline sternal incision clean dry and well approximated, covered with dry intact dressing. Bilateral lower extremity EVH sites well approximated without redness or drainage. NEUROLOGIC: Cranial nerves II through XII intact. No focal deficits. MUSKULOSKELETAL: Able to move all extremities, strength equal bilaterally, generalized weakness. PSYCHIATRIC: Alert and oriented to person place and time, appropriate affect, intact judgment and insight. INVASIVE LINES AND TUBES: Atrial and ventricular epicardial pacemaker wires in place and grounded. - Labs CBC & Chem 7: 04/26/22 07:58 04/26/22 07:58 Labs: Abnormal Lab Results - Last 24 Hours (Table) 04/25/22 04/25/22 04/26/22 Range/Units 17:03 20:36 06:33 RBC (4.30-5.90) m/uL Hgb (13.0-17.5) gm/dL Hct (39.0-53.0) % MCV (80.0-100.0) fL RDW (11.5-15.5) % Plt Count (150-450) k/uL Sodium (137-145) mmol/L BUN (9-20) mg/dL Creatinine (0.66-1.25) mg/dL Glucose (74-99) mg/dL POC Glucose (mg/dL) 165 H 185 H 146 H (70-110) mg/dL Calcium (8.4-10.2) mg/dL Magnesium (1.6-2.3) mg/dL AST (17-59) U/L ALT (4-49) U/L Total Protein (6.3-8.2) g/dL Albumin (3.5-5.0) g/dL 04/26/22 04/26/22 04/26/22 Range/Units 07:58 07:58 11:33 RBC 2.36 L (4.30-5.90) m/uL Hgb 7.4 L (13.0-17.5) gm/dL Hct 24.0 L (39.0-53.0) % MCV 102.0 H (80.0-100.0) fL RDW 15.6 H (11.5-15.5) % Plt Count 101 L D (150-450) k/uL Sodium 133 L (137-145) mmol/L BUN 83 H (9-20) mg/dL Creatinine 1.54 H (0.66-1.25) mg/dL Glucose 176 H (74-99) mg/dL POC Glucose (mg/dL) 182 H (70-110) mg/dL Calcium 7.4 L (8.4-10.2) mg/dL Magnesium 2.9 H (1.6-2.3) mg/dL AST 266 H (17-59) U/L ALT 477 H (4-49) U/L Total Protein 4.9 L (6.3-8.2) g/dL Albumin 3.0 L (3.5-5.0) g/dL Assessment and Plan Plan: 1. Severe mitral valve regurgitation, status post mitral valve repair, postoperative day # 7 2. Coronary artery disease, previous PCI, previous non-STEMI, status post CABG 3, postop day #7 3. History of paroxysmal atrial fibrillation, previous cardioversion, on [facility] outpatient for anticoagulation, status post modified [place] maze and ligation of left atrial appendage, postop day #7 4. Patent foramen ovale, status post closure, postop day #7 5. Tricuspid regurgitation 6. Chronic systolic congestive heart failure, ischemic cardiomyopathy with EF 40-45% 7. History of hypertension 8. History hyperlipidemia, treated, cholesterol 150, LDL 72 9. Right internal carotid stenosis 50-79% 10. Anemia with history of GI bleed in November 2021 S/P transfusion PRBCs 11. Acute on chronic renal failure, improving and the creatinine is down to 1.6 12. Diabetes mellitus type 2, preoperative hemoglobin A1c 5.6% currently Levemir insulin 8 units along with a sliding scale coverage 13. Osteoarthritis 14. Severe COPD, preoperative FEV1 41% of predicted 15. Chronic ongoing nicotine dependence 16. Remote history of pneumonia 17. Chronic low back pain, hearing disorder 18. Nasal swab positive for MSSA preoperative 19. Postoperative acute blood loss anemia, expected 20. Elevated transaminases, most likely due to shock liver and the significant elevation of the ALT and AST which are being monitored, and the level is also improving and there is a decline and LFTs 21. Protamine reaction intraoperative Plan: Keep the patient on 3 L O2 nasal cannula Continue IV Lasix Chest x-ray is improving Continue incentive spirometer Monitor LFTs, improving [place]-Varghese catheter removed Surgical one-sided dry-cleaning and intact Hemoglobin is stable at 7.2 Chest tubes are removed The patient is going to be switched to Lantus LFTs are also improving We'll continue to follow
[2022-04-26 16:49] LABS: Glucose,Whole Blood 142 mg/dL (70-110)
[2022-04-26 20:10] LABS: Glucose,Whole Blood 173 mg/dL (70-110)
[2022-04-26] MEDS: INSULIN DETEMIR (LEVEMIR) 100 UNIT/ML SYR SQ SCH (20:21)
[2022-04-26] MEDS: SENNOSIDES-DOCUSATE SODIUM 1 EACH TAB PO SCH (20:22)
[2022-04-26] MEDS: IPRATROPIUM-ALBUTEROL 3 ML NEB INHALATION PRN (23:28)
[2022-04-27] MEDS: traMADol 50 MG TAB PO SCH ×2 (02:02→14:39)
[2022-04-27] MEDS: IPRATROPIUM-ALBUTEROL 3 ML NEB INHALATION PRN (04:43)
[2022-04-27 06:45] LABS: Glucose,Whole Blood 136 mg/dL (70-110)
[2022-04-27 06:45] LABS: Glucose,Whole Blood 162 mg/dL (70-110)
[2022-04-27] MEDS: INSULIN ASPART (NovoLOG) 100 UNIT/ML VIAL SQ SCH ×4 (06:50→22:22)
[2022-04-27 08:06] LABS: Calcium 7.6 mg/dL (8.4-10.2); Potassium 4.1 mmol/L (3.5-5.1); Total Bilirubin 1.1 mg/dL (0.2-1.3)
[2022-04-27 08:43] LABS: HCT 23.7 % (39.0-53.0); HGB 7.3 gm/dL (13.0-17.5); Hypochromasia Marked; MCHC 30.9 g/dL (31.0-37.0); MCV 100.3 fL (80.0-100.0); Macrocytosis Slight; Mean Platelet Volume 9.5; Poikilocytosis Slight; RBC 2.36 m/uL (4.30-5.90); RDW 15.4 % (11.5-15.5); WBC 10.5 k/uL (3.8-10.6)
[2022-04-27 08:44] LABS: Platelet Count 167 k/uL (150-450)
[2022-04-27] MEDS: SYMBICORT 160-4.5 MCG INHALER INHALATION SCH ×2 (09:02→20:12)
[2022-04-27] MEDS: IPRATROPIUM-ALBUTEROL 3 ML NEB INHALATION SCH ×4 (09:02→20:12)
--- NOTE | 2022-04-27 09:13 | XR ---
EXAMINATION TYPE: XR chest 1V portable DATE OF EXAM: 04/27/2022 Comparison: 04/26/2022 Clinical History: 72-year-old male Postoperative cardiac surgery Findings: Median sternotomy wires are present. Heart mildly enlarged. Diffuse interstitial and patchy bilateral opacities show slight interval increase. Small right greater than left pleural effusions with patchy bibasilar opacities also slightly increased. Suture anchors in both humeral heads. Loss of the subac romial space on the right suggests rotator cuff re-tear. Impression: Correlate for any vascular congestion and possible mild patchy pulmonary edema, slightly worsened fro m prior study. Small right greater than left pleural effusions with adjacent atelectasis, similar to slightly increased as well.
[2022-04-27] MEDS: HEPARIN SODIUM,PORCINE/PF 5,000 UNIT/0.5 ML SYRINGE SQ SCH ×2 (09:21→16:54)
[2022-04-27] MEDS: METOPROLOL TARTRATE 12.5 MG TAB PO SCH (09:21)
[2022-04-27] MEDS: ASCORBIC ACID 500 MG TAB PO SCH (09:21)
[2022-04-27] MEDS: CLOPIDOGREL 75 MG TAB PO SCH (09:21)
[2022-04-27] MEDS: ISOSORBIDE MONONITRATE ER 15 MG TAB PO SCH (09:21)
[2022-04-27] MEDS: ASPIRIN 325 MG TAB PO SCH (09:21)
[2022-04-27] MEDS: FERROUS SULFATE 325 MG TAB PO SCH ×2 (09:21→22:22)
[2022-04-27] MEDS: PIOGLITAZONE 15 MG TAB PO SCH (09:22)
[2022-04-27] MEDS: ONDANSETRON 4 MG/2 ML VIAL IVP PRN (09:22)
[2022-04-27] MEDS: bisacodyL 10 MG SUPP RECTAL PRN (09:22)
[2022-04-27] MEDS: FUROSEMIDE 10 MG/ML 4 ML VIAL IV SCH ×2 (09:22→16:55)
[2022-04-27] MEDS ORDERED: METOPROLOL TARTRATE 12.5 MG TAB PO STA (09:37)
--- NOTE | 2022-04-27 09:50 | US ---
EXAMINATION TYPE: US chest DATE OF EXAM: 04/27/2022 COMPARISON: CXR CLINICAL HISTORY: pleural effusion. Pleural effusion TECHNIQUE: Targeted ultrasound of the posterior lower right hemithorax EXAM MEASUREMENTS: Right Pleural Effusion pocket size: 0.9 cm Right skin surface to fluid distance: 3.2 cm Right side NOT marked for possible thoracentesis outside the dept. Pulmonologists are able to review the images in the patient?s EMR. IMPRESSIONS: Trace right pleural effusion.
[2022-04-27] MEDS: AMIODARONE 200 MG TAB PO SCH ×2 (10:18→22:22)
--- NOTE | 2022-04-27 10:36 | P.PN ---
Subjective The patient is a 72-year-old male who is currently admitted to the hospital after undergoing CABG 3 with mitral valve repair and PFO closure on April 19. Postoperative complications include acute kidney injury, hypotension, and respiratory insufficiency requiring BiPAP. 04/26 Patient seen and examined. Patient admits he is still very edematous. His Lasix were stopped yesterday however continues to have significant upper and lower extremity edema. His creatinine has been improving close to back to baseline 1.5 today. Liver enzymes also have been improving. Denies any chest pain or pressure. 04/27 Patient seen and examined. Patient states his shortness breath has somewhat worsened since yesterday. He was placed on Lasix with a urine output. His creatinine remained stable and liver enzymes improving. Chest x-ray showing w orsening pulmonary edema. GENERAL: Ill-appearing, well-nourished and in no acute distress. NECK: Supple without JVD or thyromegaly. LUNGS: Breath sounds diminished to auscultation bilaterally. Respiration equal and unlabored. No wheezes, rales or rhonchi. HEART: Regular rate and rhythm. Soft systolic murmur. No rubs or gallops. S1 and S2 heard. EXTREMITIES: Normal range of motion, 3+ LE edema. No pedal pulses. VITALS: Vitals reviewed IMPRESSION: Coronary artery disease status post CABG 3 Mitral regurgitation, status post mitral valve repair PFO, status post closure Acute kidney injury, improving Hyperkalemia, secondary to a JENIFFER Elevated liver enzymes, likely due to shock liver Acute on chronic diastolic heart failure, LV EF 45-50% PLAN: Continue supportive care Patient remains very edematous and we will continue with IV diuresis. Patient with significant pulmonary edema and attempt nitro with patient having some tachypnea on exam. Monitor closely. Possible BiPAP if needed. Objective - Vital Signs Vital signs: Vital Signs Temp 97.7 F 04/27/22 08:00 Pulse 81 04/27/22 10:00 Resp 17 04/27/22 10:00 BP 115/63 04/27/22 10:00 Pulse Ox 92 L 04/27/22 10:00 FiO2 100 04/22/22 16:00 Intake & Output 04/26/22 04/27/22 04/27/22 18:59 06:59 18:59 Intake Total 480 720 240 Output Total 1360 1200 525 Balance -880 -480 -285 Weight 101 kg Intake: Oral 480 720 240 Output: Urine 1360 1200 525 Other: Voiding Method Indwelling Catheter Indwelling Catheter ABP, PAP, CO, CI - Last Documented Arterial Blood Pressure 137/47 Pulmonary Artery Pressure 67/18 Cardiac Output 5.8 Cardiac Index 2.8 - Labs CBC & Chem 7: 04/27/22 07:01 04/27/22 07:01 Labs: Abnormal Lab Results - Last 24 Hours (Table) 04/26/22 04/26/22 04/26/22 Range/Units 11:33 16:48 20:09 RBC (4.30-5.90) m/uL Hgb (13.0-17.5) gm/dL Hct (39.0-53.0) % MCV (80.0-100.0) fL MCHC (31.0-37.0) g/dL BUN (9-20) mg/dL Creatinine (0.66-1.25) mg/dL Glucose (74-99) mg/dL POC Glucose (mg/dL) 182 H 142 H 173 H (70-110) mg/dL Calcium (8.4-10.2) mg/dL AST (17-59) U/L ALT (4-49) U/L Total Protein (6.3-8.2) g/dL Albumin (3.5-5.0) g/dL 04/27/22 04/27/22 04/27/22 Range/Units 06:43 06:44 07:01 RBC 2.36 L (4.30-5.90) m/uL Hgb 7.3 L (13.0-17.5) gm/dL Hct 23.7 L (39.0-53.0) % MCV 100.3 H (80.0-100.0) fL MCHC 30.9 L (31.0-37.0) g/dL BUN (9-20) mg/dL Creatinine (0.66-1.25) mg/dL Glucose (74-99) mg/dL POC Glucose (mg/dL) 162 H 136 H (70-110) mg/dL Calcium (8.4-10.2) mg/dL AST (17-59) U/L ALT (4-49) U/L Total Protein (6.3-8.2) g/dL Albumin (3.5-5.0) g/dL 04/27/22 Range/Units 07:01 RBC (4.30-5.90) m/uL Hgb (13.0-17.5) gm/dL Hct (39.0-53.0) % MCV (80.0-100.0) fL MCHC (31.0-37.0) g/dL BUN 75 H (9-20) mg/dL Creatinine 1.35 H (0.66-1.25) mg/dL Glucose 119 H (74-99) mg/dL POC Glucose (mg/dL) (70-110) mg/dL Calcium 7.6 L (8.4-10.2) mg/dL AST 167 H (17-59) U/L ALT 378 H (4-49) U/L Total Protein 5.0 L (6.3-8.2) g/dL Albumin 3.0 L (3.5-5.0) g/dL
--- NOTE | 2022-04-27 10:38 | P.PN ---
Subjective Progress Note Date: 04/27/22 On 04/23/2022, the patient is postop day #4. The patient underwent mitral valve repair and 3 vessel bypass surgery and closure of a PFO. The patient is sitting up on a chair and he seems to be calm and comfortable. His chest x-ray showing postsurgical changes/post thoracotomy changes and small effusions nonprotective changes in the lung base bilaterally. Otherwise, the patient is awake and alert and following commands. He is currently on 3 L of O2 nasal cannula with a pulse ox of 95%. His cardiac rhythm is sinus for now. Pain is under adequate control. Noted the patient has history of diabetes mellitus, chronic stage II kidney disease hyperlipidemia, the patient has had multiple orthopedic surgeries and the patient has also paroxysmal atrial fibrillation. The patient multivessel coronary artery disease as discussed earlier in the patient underwent cardiac bypass surgery. Blood work from today shows a hemoglobin 7.5 with a white cell count of 8.2 and a platelet count of 111. Sodium is at 135, potassium is at 6 with a BUN of 67 and a creatinine of 3.4 and a potassium is up to 6.0. The patient did have a shock liver situation where the ALT went up to 1512 and AST was up to 3595. Bilirubin remained of 0.9. The patient is currently on no pressors. The patient's chest tubes have been removed. In terms of blood products, he received 3 units of PRBC, 1 unit of platelets and 2 units of fresh frozen plasma postop. Currently is on Lasix drip which is running at 5 mg an hour. He was treated for his high potassium and he was given a dose of lokalma On today's evaluation of 04/24/2022, the patient is postop day #5. The patient is doing well and he has no specific complaints. He continues to diurese and the patient is currently on Lasix 3 mg an hour. The patient is currently on 4 L of O2 nasal cannula. The patient underwent mitral valve repair and 3 vessel bypass surgery and closure of a PFO. He is comfortable. Is using the incentive spirometer. Surgical one-sided dry clean and intact. The patient is currently on no pressors. At the same time, the patient was having an issue with an acute kidney injury and the creatinine is stable for now. The BUN is at 27 with a creatinine of 2.97 which is improved compared to yesterday. The patient has a white cell count of 9.2 with a hemoglobin of 7.1 and a platelet count of 122. Sodium is at 133, potassium level is at 5.1, improved compared to yesterday, the patient did have also a shock liver which is improving, AST is down to 1270 and ALTs on to 1038. Glucose at 1:30. Normal electrolytes. Alert and awake. Following commands and answering questions. No other significant events. Remains on Levemir insulin 20 units along with a sliding scale coverage. On 04/25/2022, the patient remains extubated on 3 L of oxygen by nasal cannula. Doing well. No specific complaints. He continues to diurese well. He has been improvement in renal function. The patient is on Lasix drip at 3 mg an hour and the patient's BUN is at 85 with a creatinine of 2.12. Sodium levels is 131. The WBC count is at 12.4 with a hemoglobin of 7.2 and a platelet count of 211. Liver functions is also improving as the patient is shock liver and LFTs are improving. The patient has no specific complaints. The chest x-ray from today showed cardiomegaly and pulmonary vessel congestion and bilateral pleural effusions. The patient is essentially postop day #6 On 04/26/2022, the patient is postop day #7, the patient remains on 3 L of oxygen by nasal cannula. Repeat chest x-ray was done today and the patient shows improvement in volume status although it is not completely. The patient continues to have some residual effusion in the lung bases. Meanwhile, LFTs are improving and is consistent with shock liver disease improving. AST is down to 266 with an LDL 477 and bilirubin of 1.2. The patient also has a improvement in renal function and the BUN is down to 83 with a creatinine of 1.54. Sodium is at 133, potassium is at 4.6, bicarb is 24 with a chloride of 99. The white cell cause of 9.1 with a hemoglobin of 7.4. Cardiac rhythm is sinus. No chest tube. The patient using incentive spirometer and falling approximately 1000. The patient remains on Lasix 40 mg IV every 12 hours. Ultram for pain control. The patient on a combination of aspirin and Plavix. The patient is also on metoprolol 12.5 mg by mouth twice a day. On 04/27/2022 the patient is postop day #8. The patient is currently on oxygen at 3 L. There was concern of pleural effusion. Based on that, ultrasound of the chest was done. Based on review of the ultrasound, there is no sizable effusion on the left. There is trace right-sided pleural effusion. As such, there is no need for thoracentesis at this point in time. This was discussed with the surgical team. The patient is still being diuresed with IV Lasix. We'll function continues to improve and the creatinine is down to 1.35. The liver function tests also continued to improve as the patient a component of shock liver which is improving. Hemoglobin stable at 7.3. The WBC count is at 10.5. Cardiac rhythm is A. fib fibrillation as the patient went into atrial fibrillation at around midnight. The patient was started on oral amiodarone 200 mg twice a day. No loading was given. The rate is controlled for now. No anticoagulants have been utilized.. Using incentive spirometer. Following approximately 1000 on his incentive spirometer. At the same time, the patient is on a combination of aspirin and Plavix. The patient is also on metoprolol dose of 25 mg by mouth twice a day. He is on amiodarone 200 mg by mouth daily as the patient went into amiodarone and he was started on amiodarone Objective - Vital Signs Vital signs: Vital Signs Temp 97.7 F 04/27/22 08:00 Pulse 81 04/27/22 10:00 Resp 17 04/27/22 10:00 BP 115/63 04/27/22 10:00 Pulse Ox 92 L 04/27/22 10:00 FiO2 100 04/22/22 16:00 Intake & Output 04/26/22 04/27/22 04/27/22 18:59 06:59 18:59 Intake Total 480 720 240 Output Total 1360 1200 525 Balance -880 -480 -285 Weight 101 kg Intake: Oral 480 720 240 Output: Urine 1360 1200 525 Other: Voiding Method Indwelling Catheter Indwelling Catheter ABP, PAP, CO, CI - Last Documented Arterial Blood Pressure 137/47 Pulmonary Artery Pressure 67/18 Cardiac Output 5.8 Cardiac Index 2.8 - Exam CONSTITUTIONAL: Sitting up to the bedside chair in the intensive care unit, appears comfortable, cooperative, no apparent acute distress. HEENT: Neck is supple, no JVD, no lymphadenopathy. RESPIRATORY: Lungs sounds essentially clear throughout, few scattered expiratory wheezes to his bilateral bases. Respirations are symmetrical and nonlabored. Currently on 3 L nasal cannula with oxygen saturations 94%. Able to achieve 1000 mL on incentive spirometry. Strong cough. CARDIOVASCULAR: irregular rhythm and rate. S1 and S2 present, negative for S3, gallop or murmur. Sternum is stable. Palpable peripheral pulses bilaterally, +1 edema to his bilateral lower extremities. No calf pain or tenderness noted. Heart hugger in place with patient demonstrating appropriate use. Knee-high RAFAEL hose and sequential compression devices in place to his bilateral lower extremities. GASTROINTESTINAL: Abdomen soft, nontender, nondistended. Active bowel sounds present 4 quadrants. Tolerating diet. Passing flatus. No guarding or rigidity. Bowel movement this a.m. GENITOURINARY: Mooney present draining clear, yellow urine. Urine output 865 mL in the last 8 hours. INTEGUMENTARY: Skin is warm and dry with no evidence of clubbing or cyanosis. Midline sternal incision clean dry and well approximated, covered with dry intact dressing. Bilateral lower extremity EVH sites well approximated without redness or drainage. NEUROLOGIC: Cranial nerves II through XII intact. No focal deficits. MUSKULOSKELETAL: Able to move all extremities, strength equal bilaterally, generalized weakness. PSYCHIATRIC: Alert and oriented to person place and time, appropriate affect, intact judgment and insight. INVASIVE LINES AND TUBES: Atrial and ventricular epicardial pacemaker wires in place and grounded. - Labs CBC & Chem 7: 04/27/22 07:01 04/27/22 07:01 Labs: Abnormal Lab Results - Last 24 Hours (Table) 04/26/22 04/26/22 04/26/22 Range/Units 11:33 16:48 20:09 RBC (4.30-5.90) m/uL Hgb (13.0-17.5) gm/dL Hct (39.0-53.0) % MCV (80.0-100.0) fL MCHC (31.0-37.0) g/dL BUN (9-20) mg/dL Creatinine (0.66-1.25) mg/dL Glucose (74-99) mg/dL POC Glucose (mg/dL) 182 H 142 H 173 H (70-110) mg/dL Calcium (8.4-10.2) mg/dL AST (17-59) U/L ALT (4-49) U/L Total Protein (6.3-8.2) g/dL Albumin (3.5-5.0) g/dL 04/27/22 04/27/22 04/27/22 Range/Units 06:43 06:44 07:01 RBC 2.36 L (4.30-5.90) m/uL Hgb 7.3 L (13.0-17.5) gm/dL Hct 23.7 L (39.0-53.0) % MCV 100.3 H (80.0-100.0) fL MCHC 30.9 L (31.0-37.0) g/dL BUN (9-20) mg/dL Creatinine (0.66-1.25) mg/dL Glucose (74-99) mg/dL POC Glucose (mg/dL) 162 H 136 H (70-110) mg/dL Calcium (8.4-10.2) mg/dL AST (17-59) U/L ALT (4-49) U/L Total Protein (6.3-8.2) g/dL Albumin (3.5-5.0) g/dL 04/27/22 Range/Units 07:01 RBC (4.30-5.90) m/uL Hgb (13.0-17.5) gm/dL Hct (39.0-53.0) % MCV (80.0-100.0) fL MCHC (31.0-37.0) g/dL BUN 75 H (9-20) mg/dL Creatinine 1.35 H (0.66-1.25) mg/dL Glucose 119 H (74-99) mg/dL POC Glucose (mg/dL) (70-110) mg/dL Calcium 7.6 L (8.4-10.2) mg/dL AST 167 H (17-59) U/L ALT 378 H (4-49) U/L Total Protein 5.0 L (6.3-8.2) g/dL Albumin 3.0 L (3.5-5.0) g/dL Assessment and Plan Plan: 1. Severe mitral valve regurgitation, status post mitral valve repair, postoperative day # 8 2. Coronary artery disease, previous PCI, previous non-STEMI, status post CABG 3, postop day #8 3. History of paroxysmal atrial fibrillation, previous cardioversion, on [facility] outpatient for anticoagulation, status post modified Castanon maze and ligation of left atrial appendage, postop day #8 4. Patent foramen ovale, status post closure, postop day #8 5. Onset atrial fibrillation with a controlled rate and the patient is currently on oral amiodarone 6. Chronic systolic congestive heart failure, ischemic cardiomyopathy with EF 40-45% 7. History of hypertension 8. History hyperlipidemia, treated, cholesterol 150, LDL 72 9. Right internal carotid stenosis 50-79% 10. Anemia with history of GI bleed in November 2021 S/P transfusion PRBCs 11. Acute on chronic renal failure, improving and the creatinine is down to 1.6 12. Diabetes mellitus type 2, preoperative hemoglobin A1c 5.6% currently Levemir insulin 8 units along with a sliding scale coverage 13. Osteoarthritis 14. Severe COPD, preoperative FEV1 41% of predicted 15. Chronic ongoing nicotine dependence 16. Remote history of pneumonia 17. Chronic low back pain, hearing disorder 18. Nasal swab positive for MSSA preoperative 19. Postoperative acute blood loss anemia, expected 20. Elevated transaminases, most likely due to shock liver and the significant elevation of the ALT and AST which are being monitored, and the level is also improving and there is a decline and LFTs 21. Protamine reaction intraoperative Plan: Keep the patient on 3 L O2 nasal cannula Continue IV Lasix No need for thoracentesis and the patient has no sizable pleural effusion on the ultrasound Chest x-ray is improving Continue incentive spirometer Monitor LFTs, improving Harlan-Varghese catheter removed Surgical one-sided dry-cleaning and intact Hemoglobin is stable at 7.2 Continue amiodarone regarding the new onset atrial fibrillation. Rate is con trolled Chest tubes are removed The patient is going to be switched to Levemir insulin 8 units and is lying scattered coverage LFTs are also improving We'll continue to follow
[2022-04-27] MEDS ORDERED: NITROGLYCERIN-D5W PMX 50 MG in DEXTROSE/WATER 1 250ML.BAG IV SCH (11:15)
[2022-04-27] MEDS: NON FORMULARY DRUG SQ SCH (11:23)
[2022-04-27 11:27] LABS: Glucose,Whole Blood 220 mg/dL (70-110)
[2022-04-27 11:30] LABS: Glucose,Whole Blood 228 mg/dL (70-110)
--- NOTE | 2022-04-27 12:06 | P.PN ---
Subjective Progress Note Date: 04/27/22 Principal diagnosis: Severe mitral valve regurgitation, coronary artery disease, paroxysmal atrial fibrillation, patent foramen ovale, tricuspid regurgitation, chronic systolic congestive heart failure. Past medical history significant for hypertension, hyperlipidemia, coronary artery disease with history of previous PCI, non-ST elevated myocardial infarction in November 2021, ischemic cardiomyopathy with EF 40- 45%, right internal carotid stenosis 50-79%, renal insufficiency, anemia with history of GI bleed in November 2021 S/P transfusion PRBCs, diabetes mellitus type 2, osteoarthritis, severe COPD, chronic ongoing nicotine dependence, remote history of pneumonia, chronic low back pain and hearing disorder. Nasal swab positive for MSSA preoperative. POD #8 Mitral valve repair with 28 mm physio-2 ring, CABG 3 with saphenous vein grafts to first diagonal, obtuse marginal, posterior descending coronary arteries, closure of PFO, endovascular vein harvest, modified Castanon maze procedure with full left-sided lesion set and ligation of the left atrial appendage, SCOTT by anesthesia. Protamine reaction intraoperative Postoperative acute blood loss anemia, expected given his history of anemia, hemodilution and cardiopulmonary bypass. Acute on chronic kidney failure, likely from hypotension from intraoperative protamine reaction. Elevated transaminases, likely from hypotension from intraoperative protamine reaction. The patient was seen and examined today 04/27/2022 at his bedside in the intensive care unit. Currently sitting up to the bedside chair, is awake, aler t, oriented 3 and is in no acute apparent distress. He reports he feels somewhat improved today, and currently denies any complaints of pain or shortness of breath with sitting in the chair. He is complaining of some generalized weakness. Oxygen saturations are 96% on 1 L nasal cannula and he is achieving 1000 mL on his incentive spirometry with encouragement. Bedside telemetry showing atrial fibrillation heart rate 76 BPM. He remains hemodynamically stable and is currently on no inotropic pressor support. Chest x-ray reviewed this morning. Ultrasound of the right chest completed this morning with trace pleural effusion reported. Mooney catheter remains in place for accurate I's and O's, urine output 825 mL in the last 8 hours. He remains on Lasix 40 mg IV every 12 hours. Laboratory results this morning show a WBC count of 10.5, hemoglobin 7.3, hematocrit 23.7, platelets 167, sodium 137, potassium 4.1, BUN 75, creatinine 1.35, AST 167 and ALT 378. BUN and creatinine and liver enzymes continued to trend down. A lengthy discussion with the patient and the patient's this morning in regards the importance of ambulating and working with nursing staff and physical therapy with walking, and participating with therapy. Objective - Vital Signs Vital signs: Vital Signs Temp 97.7 F 04/27/22 08:00 Pulse 70 04/27/22 11:00 Resp 28 H 04/27/22 11:00 BP 102/84 04/27/22 11:00 Pulse Ox 91 L 04/27/22 11:00 FiO2 100 04/22/22 16:00 Intake & Output 04/26/22 04/27/22 04/27/22 18:59 06:59 18:59 Intake Total 480 720 240 Output Total 1360 1200 750 Balance -880 -480 -510 Weight 101 kg Intake: Oral 480 720 240 Output: Urine 1360 1200 750 Other: Voiding Method Indwelling Catheter Indwelling Catheter Indwelling Catheter # Bowel Movements 1 ABP, PAP, CO, CI - Last Documented Arterial Blood Pressure 137/47 Pulmonary Artery Pressure 67/18 Cardiac Output 5.8 Cardiac Index 2.8 - Exam CONSTITUTIONAL: Sitting up to the bedside chair in the intensive care unit, appears comfortable, cooperative, no apparent acute distress. HEENT: Neck is supple, no JVD, no lymphadenopathy. RESPIRATORY: Lungs sounds essentially clear throughout, few scattered expiratory wheezes and faint crackles to his bilateral bases. Diminished to his right lower lobe. Respirations are symmetrical and nonlabored. Currently on 1 L nasal cannula with oxygen saturations 96%. Able to achieve 1000 mL on incentive spirometry. Strong cough. CARDIOVASCULAR: Irregular rhythm and controlled rate. S1 and S2 present, negative for S3, gallop or murmur. Sternum is stable. Palpable peripheral pulses bilaterally, +1 edema to his bilateral lower extremities. No calf pain or tenderness noted. Heart hugger in place with patient demonstrating appropriate use. Knee-high RAFAEL hose and sequential compression devices in place to his bilateral lower extremities. GASTROINTESTINAL: Abdomen soft, nontender, nondistended. Active bowel sounds present 4 quadrants. Tolerating diet. Passing flatus. No guarding or rigidity. Bowel movement yesterday 04/26/2022. GENITOURINARY: Mooney present draining clear, yellow urine. Urine output 825 mL in the last 8 hours. INTEGUMENTARY: Skin is warm and dry with no evidence of clubbing or cyanosis. Midline sternal incision clean dry and well approximated, covered with dry intact dressing. Bilateral lower extremity EVH sites well approximated without redness or drainage. Erythema to his coccyx, dressing clean, dry and intact. NEUROLOGIC: Cranial nerves II through XII intact. No focal deficits. MUSKULOSKELETAL: Able to move all extremities, strength equal bilaterally, generalized weakness. PSYCHIATRIC: Alert and oriented to person place and time, appropriate affect, intact judgment and insight. INVASIVE LINES AND TUBES: Atrial and ventricular epicardial pacemaker wires in place and grounded. - Allied health notes Allied health notes reviewed: nursing - Labs CBC & Chem 7: 04/27/22 07:01 04/27/22 07:01 Labs: Abnormal Lab Results - Last 24 Hours (Table) 04/26/22 04/26/22 04/27/22 Range/Units 16:48 20:09 06:43 RBC (4.30-5.90) m/uL Hgb (13.0-17.5) gm/dL Hct (39.0-53.0) % MCV (80.0-100.0) fL MCHC (31.0-37.0) g/dL BUN (9-20) mg/dL Creatinine (0.66-1.25) mg/dL Glucose (74-99) mg/dL POC Glucose (mg/dL) 142 H 173 H 162 H (70-110) mg/dL Calcium (8.4-10.2) mg/dL AST (17-59) U/L ALT (4-49) U/L Total Protein (6.3-8.2) g/dL Albumin (3.5-5.0) g/dL 04/27/22 04/27/22 04/27/22 Range/Units 06:44 07:01 07:01 RBC 2.36 L (4.30-5.90) m/uL Hgb 7.3 L (13.0-17.5) gm/dL Hct 23.7 L (39.0-53.0) % MCV 100.3 H (80.0-100.0) fL MCHC 30.9 L (31.0-37.0) g/dL BUN 75 H (9-20) mg/dL Creatinine 1.35 H (0.66-1.25) mg/dL Glucose 119 H (74-99) mg/dL POC Glucose (mg/dL) 136 H (70-110) mg/dL Calcium 7.6 L (8.4-10.2) mg/dL AST 167 H (17-59) U/L ALT 378 H (4-49) U/L Total Protein 5.0 L (6.3-8.2) g/dL Albumin 3.0 L (3.5-5.0) g/dL 04/27/22 04/27/22 Range/Units 11:26 11:29 RBC (4.30-5.90) m/uL Hgb (13.0-17.5) gm/dL Hct (39.0-53.0) % MCV (80.0-100.0) fL MCHC (31.0-37.0) g/dL BUN (9-20) mg/dL Creatinine (0.66-1.25) mg/dL Glucose (74-99) mg/dL POC Glucose (mg/dL) 220 H 228 H (70-110) mg/dL Calcium (8.4-10.2) mg/dL AST (17-59) U/L ALT (4-49) U/L Total Protein (6.3-8.2) g/dL Albumin (3.5-5.0) g/dL - Imaging and Cardiology Chest x-ray: report reviewed, image reviewed Assessment and Plan Assessment: 1. Severe mitral valve regurgitation, status post mitral valve repair 2. Coronary artery disease, previous PCI, previous non-STEMI, status post CABG 3 3. History of paroxysmal atrial fibrillation, previous cardioversion, on [facility] outpatient for anticoagulation, status post modified Castanon maze and ligation of left atrial appendage 4. Patent foramen ovale, status post closure 5. Tricuspid regurgitation 6. Chronic systolic congestive heart failure, ischemic cardiomyopathy with EF 40-45% 7. History of hypertension 8. History hyperlipidemia, treated, cholesterol 150, LDL 72 9. Right internal carotid stenosis 50-79% 10. Anemia with history of GI bleed in November 2021 S/P transfusion PRBCs 11. Acute on chronic renal failure, baseline creatinine 1.28-1.6 12. Diabetes mellitus type 2, preoperative hemoglobin A1c 5.6% 13. Osteoarthritis 14. Severe COPD, preoperative FEV1 41% of predicted 15. Chronic ongoing nicotine dependence 16. Remote history of pneumonia 17. Chronic low back pain 18. Hearing disorder 19. Nasal swab positive for MSSA preoperative 20. Postoperative acute blood loss anemia, expected 21. Elevated transaminases 22. Protamine reaction intraoperative Plan: 1. Continue aspirin, Plavix, beta siomara, and low dose Imdur. Continue to hold statin due to elevated LFT, will reintroduce when liver enzymes stabilize. 2. Amiodarone 200 mg by mouth twice a day. No anticoagulation until after all lines and tubes have been discontinued, likely will discharge on Eliquis. 3. Continue Lasix 40 mg IV every 12 hours. 4. Wean O2 as tolerated. Encourage incentive spirometry 10 times every hour while awake. Bronchodilators, BiPAP per pulmonology. 5. Increase activity, ambulate as tolerated. PT/OT/cardiac rehab following. Needs much encouragement with ambulation. 6. Will monitor daily labs and chest x-rays. Electronic replacement per protocol. Avoid hepatotoxic and nephrotoxic medications. 7. GI/DVT prophylaxis. 8. Insulin management per primary care service. Patient is a diabetic with a preoperative hemoglobin A1c of 5.6% on multiple oral medications, needs tight blood sugar control. 9. Pain control with current medication regimen. 10. Discontinue Mooney catheter, may bladder scan and straight cath for greater than 300 mL residual. 11. Strict accurate intake and output. Daily weights. 12. Dr. Mora consult noted and appreciated. 13. Smoking cessation counseling and education provided to patient and family. 14. Ultrasound right chest today. 15. We will remove his atrial and ventricular epicardial pacemaker wires tomorrow a.m. 16. More recommendations to follow based on patient's clinical course. Time with Patient: Greater than 30
[2022-04-27 16:51] LABS: Glucose,Whole Blood 140 mg/dL (70-110)
--- NOTE | 2022-04-27 19:18 | P.PN ---
Progress Note - Text Progress Note Date: 04/27/22 Patient is a pleasant 72-year-old male came in the for elective mitral valve repair, CABG x 3 vessel, maze procedure, PFO closure. Patient is extubated sitting in the chair patient still has a Monroe-Varghese catheter, CVP of around 12, cardiac index 3.1 patient creatinine went up to 1.70 resulting elevated potassium of 5.5 patient is off pressor support, off nitro drip patient still has 2 mediastinal and one left-sided chest tube. 04/21/2022 Patient is evaluated in ICU today, sitting up in chair. He is postoperative day #2 for elective mitral valve repair, hematocrit bypass grafting maze procedure and PFO closure. He is on BiPAP with fio2 of 40% Continues with mediastinal/left pleural chest tubes. Continue with indwelling catheter. Received dose of IV albumin yesterday afternoon. Chest xray today showing ongoing mild pulmonary vascular congestion, increasing patchy bibasilar opacities, atelectasis vs. pulmonary edema. Currently on lasix gtt at 10mls/hr, continues on dopamine gtt at 3.68 mls/hr. Continues on insulin gtt and blood glucose remains in the 140 to 130s. Labs today showing sodium 132, potassium 6.1 improved to 5.4, BUN 41, creatinine 2.53, elevated liver enzymes. Hgb 7.3. 04/22/2022 Patient continues to be monitored closely in intensive care unit, he is postoperative day #3 for elective mitral valve repair, maze procedure, PFO closure. Managed by primary team. He had limited echocardiogram completed showing EF 45 to 50%, mild to moderate MR, moderate pulmonary hypertension with moderate TR. Chest xray today shows slight improvement in pulmonary vascular congestion. Maintained on lasix gtt at 10mls/hr, dopamine gtt, Continues with 2 mediastinal chest tubes. Continues with indwelling catheter. Continues with right IJ swan/cordis, right radial arterial line. He has been weaned off BiPAP currently on high flow cannula at 15L. He has been tolerating some diet. Continues on insulin gtt which will continue until his diet stabilizes. Current glucose in the 140s. Creatinine today 3.14. April 23: I assumed care of patient today from [facility]. ICU. In a recliner. Tired. Little oral intake. Nasal cannula. Drips include IV dopamine and Lasix. Some shortness of breath. Mooney catheter. 04/24/2022: ICU. Up. 4 L nasal cannula. Did eat better. Edema present. On the Lasix drip 5 mg an hour. Some improvement in creatinine. 04/25/2022: ICU. Up in a recliner. Eating better. at the bedside. Edema present. Off Lasix drip. Feeling better. Creatinine coming down. LFTs improving. Home dose of Victoza was started 04/26/2022: ICU. Up in a recliner. 4 L nasal cannula. Eating about 50%. Accu-Cheks noted. 04/27/2022: ICU: Patient went into atrial fibrillation overnight. Put on oral amiodarone and Lopressor per CTS.. Some worsening of shortness of breath. Placed on IV Lasix. Eating some. Up in a recliner. Active Medications Albuterol/Ipratropium (Ipratropium-Albuterol 3 Ml Neb) 3 ml INHALATION RT-Q2H PRN PRN Reason: Shortness Of Breath Or Wheezing Last Admin: 04/27/22 04:43 Dose: 3 ml Albuterol/Ipratropium (Ipratropium-Albuterol 3 Ml Neb) 3 ml INHALATION RT-QID [facility] Last Admin: 04/27/22 16:52 Dose: 3 ml Amiodarone HCl (Amiodarone 200 Mg Tab) 200 mg PO BID [facility] Last Admin: 04/27/22 10:18 Dose: 200 mg Ascorbic Acid (Ascorbic Acid 500 Mg Tab) 500 mg PO DAILY [facility] Last Admin: 04/27/22 09:21 Dose: 500 mg Aspirin (Aspirin 325 Mg Tab) 325 mg PO DAILY [facility] Last Admin: 04/27/22 09:21 Dose: 325 mg Bisacodyl (Bisacodyl 10 Mg Supp) 10 mg RECTAL DAILY PRN PRN Reason: Constipation Last Admin: 04/27/22 09:22 Dose: 10 mg Budesonide/Formoterol Fumarate (Symbicort 160-4.5 Mcg Inhaler) 2 puff INHALATION RT-BID [facility] Last Admin: 04/27/22 09:02 Dose: 2 puff Clopidogrel Bisulfate (Clopidogrel 75 Mg Tab) 75 mg PO DAILY [facility] Last Admin: 04/27/22 09:21 Dose: 75 mg Dextrose/Water (Dextrose 50% Syringe 50 Ml) 25 ml IVP PER PROTOCOL PRN; Protocol PRN Reason: Hypoglycemia Dextrose/Water (Dextrose 50% Syringe 50 Ml) 50 ml IVP PER PROTOCOL PRN; Prot ocol PRN Reason: Hypoglycemia Dextrose/Water (Dextrose 50% Syringe 50 Ml) 25 ml IVP PER PROTOCOL PRN; Protocol PRN Reason: Hypoglycemia Dextrose/Water (Dextrose 50% Syringe 50 Ml) 50 ml IVP PER PROTOCOL PRN; Protocol PRN Reason: Hypoglycemia Ferrous Sulfate (Ferrous Sulfate 325 Mg Tab) 325 mg PO BID [facility] Last Admin: 04/27/22 09:21 Dose: 325 mg Furosemide (Furosemide 10 Mg/Ml 4 Ml Vial) 40 mg IV BID@0900,1600 [facility] Last Admin: 04/27/22 16:55 Dose: 40 mg Heparin Sodium (Porcine) (Heparin Sodium,Porcine/Pf 5,000 Unit/0.5 Ml Syringe) 5,000 unit SQ Q8HR [facility] Last Admin: 04/27/22 16:54 Dose: 5,000 unit Calcium Gluconate/Sodium (Chloride 2 gm/ IV Solution) 100 mls @ 100 mls/hr IVPB ONCE PRN PRN Reason: Ionized Calcium less than 4.4 Stop: 05/19/22 23:00 Nitroglycerin/Dextrose 50 mg/ (IV Solution) 250 mls @ 1.5 mls/hr IV .Q24H [facility]; Protocol Last Admin: 04/27/22 12:21 Dose: 5 mcg/min, 1.5 mls/hr Insulin Aspart (Insulin Aspart (Novolog) 100 Unit/Ml Vial) 0 unit SQ ACHS [facility]; Protocol Last Admin: 04/27/22 16:54 Dose: Not Given Insulin Detemir (Insulin Detemir (Levemir) 100 Unit/Ml Syr) 8 unit SQ HS [facility] Last Admin: 04/26/22 20:21 Dose: 8 unit Isosorbide Mononitrate (Isosorbide Mononitrate Er 15 Mg Tab) 15 mg PO DAILY [facility] Last Admin: 04/27/22 09:21 Dose: 15 mg Magnesium Hydroxide (Magnesium Hydroxide 2,400 Mg/10 Ml Cup) 2,400 mg PO BID PRN PRN Reason: Constipation Last Admin: 04/22/22 07:08 Dose: 2,400 mg Metoprolol Tartrate (Metoprolol Tartrate 25 Mg Tab) 25 mg PO BID [facility] Miscellaneous Information (Potassium Replacement Protocol 1 Each Misc) 1 each MISCELLANE DAILY PRN; Protocol PRN Reason: Per Protocol Miscellaneous Information (Magnesium Replacement Protocol 1 Each Misc) 1 each MISCELLANE DAILY PRN; Protocol PRN Reason: Per Protocol Non-Formulary Medication (Non Formulary Drug) 1 each SQ DAILY [facility] Last Admin: 04/27/22 11:23 Dose: 1 each Ondansetron HCl (Ondansetron 4 Mg/2 Ml Vial) 4 mg IVP Q6HR PRN PRN Reason: Nausea And Vomiting Last Admin: 04/27/22 09:22 Dose: 4 mg Pioglitazone HCl (Pioglitazone 15 Mg Tab) 15 mg PO DAILY [facility] Last Admin: 04/27/22 09:22 Dose: 15 mg Senna/Docusate Sodium (Sennosides-Docusate Sodium 1 Each Tab) 2 each PO HS [facility] Last Admin: 04/26/22 20:22 Dose: 2 each Sodium Chloride (Sodium Chloride 0.9% Flush 10 Ml Syringe) 10 ml IV BID [facility] Last Admin: 04/27/22 09:22 Dose: 10 ml Tramadol HCl (Tramadol 50 Mg Tab) 25 mg PO Q12H [facility] Last Admin: 04/27/22 14:39 Dose: 25 mg On examination: VITAL SIGNS: 97.9, 85, 22, 112.57, 97% on 3 L GENERAL APPEARANCE: Up in a recliner, tired HEENT: Normal external appearance of nose and ear. Oral cavity normal EYES: Pupils equal. Conjunctiva normal. NECK: JVD not raised. Mass not palpable. RESPIRATORY: Respiratory effort increased. Lungs diminished breath sounds. CARDIOVASCULAR: First and second sounds normal. Edema present ABDOMEN: Soft. Liver and spleen not palpable. No tenderness. No mass palpable. Mooney catheter PSYCHIATRY: AO 3, mood and affect normal INVESTIGATIONS, reviewed in the clinical context: 04/27/2022: WBC 10.5 hemoglobin 7.3 platelets 167 potassium 4.1 BUN 75 creatinine 1.35 AST was 67 ALT 378 04/26/2022: WBC 9.1 hemoglobin 7.4 platelets 101 potassium 4.6 BUN 83 creatinine 1.5 for AST 266 ALT 477 04/25/2022: WBC 12.4 hemoglobin 7.2 potassium 4.5 BUN 85 creatinine 2.12 AST 503 ALT 619 04/24/2022: WBC 9.2 hemoglobin 7.1 platelets 122 potassium 5.1 BUN 77 creatinine 2.97 AST 1270 ALT 1038 WBC 8.2 hemoglobin 7.5 platelets 111 sodium 135 progression 6 BUN 67 creatinine 3.43 AST 3595 ALT 1512 Limited 2-D echocardiogram: EF 45-50%. Inferior wall hypokinesis. Moderate MR. Moderate pulmonary hypertension with moderate TR. Assessment and plan -Acute on chronic congestive heart exacerbation from systolic/diastolic dysfunction EF 45-50%: 6 clinical worsening, precipitated by worsening A. fib IV Lasix resumed -Acute hypoxic respiratory failure from pulmonary edema: Improving 3 L nasal cannula -Diabetes Mellitus type 2 with hyperglycemia, Victoza , Actos. Levemir 8 units daily at bedtime -Paroxysmal atrial fibrillation status post modified Castanon-Maze procedure,: With rapid late overnight. Patient put back on amiodarone per CTS and Lopressor. -acute renal failure on chronic kidney disease stage II with renal failure is probably prerenal azotemia, cardiorenal syndrome.: Improving Creatinine peaked at 3.43. Down to 1.5 for -hyperkalemia secondary to acute renal failure: Corrected Received Lokelma. Renal diet -Acute hepatitis, likely ischemic: Improving Follow closely. GI services not available in the hospital. Hold any hepatic offensive medications. Off amiodarone -COPD without any acute exacerbation DuoNeb -Hyperlipidemia Hold statins, because of elevated LFTs - coronary artery disease with previous PCI Aspirin, Lasix, Imdur, Lopressor currently on hold -Acute postprocedure blood loss anemia as expected from surgery Patient receive 2 units of PRBC, follow CBC -Chronic nicotine dependence -Severe MR status post mitral valve failure, status post CABG, status post PFO Patel -Moderate secondary probably hypertension 3 L nasal cannula. Patient back into A. fib. Placed on amiodarone and Lopressor earlier today. Did communicated to cardiology at [facility] about keeping iron LFTs in view of recent bump up in LFTs. Which are evident improving. Patient has been previously amiodarone loaded...
[2022-04-27 22:04] LABS: Glucose,Whole Blood 265 mg/dL (70-110)
[2022-04-27] MEDS: INSULIN DETEMIR (LEVEMIR) 100 UNIT/ML SYR SQ SCH (22:22)
[2022-04-27] MEDS: SENNOSIDES-DOCUSATE SODIUM 1 EACH TAB PO SCH (22:22)
[2022-04-27] MEDS: METOPROLOL TARTRATE 25 MG TAB PO SCH (22:23)
[2022-04-28] MEDS: HEPARIN SODIUM,PORCINE/PF 5,000 UNIT/0.5 ML SYRINGE SQ SCH ×4 (00:27→23:45)
[2022-04-28] MEDS: traMADol 50 MG TAB PO SCH ×4 (01:20→16:59)
[2022-04-28 06:54] LABS: Glucose,Whole Blood 152 mg/dL (70-110)
[2022-04-28] MEDS: INSULIN ASPART (NovoLOG) 100 UNIT/ML VIAL SQ SCH ×4 (07:08→20:05)
[2022-04-28 07:11] LABS: HCT 23.4 % (39.0-53.0); HGB 7.1 gm/dL (13.0-17.5); Hypochromasia Marked; MCH 30.7 pg (25.0-35.0); MCHC 30.4 g/dL (31.0-37.0); MCV 100.8 fL (80.0-100.0); Macrocytosis Slight; Mean Platelet Volume 9.5; Platelet Count 205 k/uL (150-450); Poikilocytosis Slight; RBC 2.33 m/uL (4.30-5.90); RDW 15.6 % (11.5-15.5)
[2022-04-28 07:26] LABS: Calcium 7.7 mg/dL (8.4-10.2); Potassium 4.7 mmol/L (3.5-5.1); Total Bilirubin 1.2 mg/dL (0.2-1.3); Total Protein 5.2 g/dL (6.3-8.2)
[2022-04-28] MEDS: IPRATROPIUM-ALBUTEROL 3 ML NEB INHALATION SCH ×5 (08:20→19:55)
[2022-04-28] MEDS: SYMBICORT 160-4.5 MCG INHALER INHALATION SCH ×2 (08:20→19:55)
[2022-04-28] MEDS: ACETAMINOPHEN TAB 325 MG TAB PO PRN ×2 (08:21→20:54)
--- NOTE | 2022-04-28 08:21 | XR ---
EXAMINATION TYPE: XR chest 1V portable DATE OF EXAM: 04/28/2022 COMPARISON: 04/28/2022 HISTORY: Post cardiac surgery TECHNIQUE: Single frontal view of the chest is obtained. FINDINGS: There is a prosthetic heart valve and median sternotomy wires. The heart is prominent in size and pulmonary vasculature appears mildly congested. There are small bi lateral pleural effusions and bibasilar infiltrates unchanged. There is no pneumothorax. The osseous structures are intact. There has been right rotator cuff repair . IMPRESSION: 1. Postsurgical changes of aortic valve replacement. 2. No change in the acute cardiopulmonary disease as described above.
[2022-04-28] MEDS: FERROUS SULFATE 325 MG TAB PO SCH ×2 (08:24→20:04)
[2022-04-28] MEDS: ASCORBIC ACID 500 MG TAB PO SCH (08:24)
[2022-04-28] MEDS: CLOPIDOGREL 75 MG TAB PO SCH (08:24)
[2022-04-28] MEDS: AMIODARONE 200 MG TAB PO SCH ×2 (08:25→20:04)
[2022-04-28] MEDS: METOPROLOL TARTRATE 25 MG TAB PO SCH ×2 (08:25→20:04)
[2022-04-28] MEDS: ASPIRIN 325 MG TAB PO SCH (08:25)
[2022-04-28] MEDS: ISOSORBIDE MONONITRATE ER 15 MG TAB PO SCH (08:26)
[2022-04-28] MEDS: FUROSEMIDE 10 MG/ML 4 ML VIAL IV SCH (08:27)
--- NOTE | 2022-04-28 08:48 | P.PN ---
Subjective Progress Note Date: 04/28/22 Principal diagnosis: Severe mitral valve regurgitation, coronary artery disease, paroxysmal atrial fibrillation, patent foramen ovale, tricuspid regurgitation, chronic systolic congestive heart failure. Past medical history significant for hypertension, hyperlipidemia, coronary artery disease with history of previous PCI, non-ST elevated myocardial infarction in November 2021, ischemic cardiomyopathy with EF 40- 45%, right internal carotid stenosis 50-79%, renal insufficiency, anemia with history of GI bleed in November 2021 S/P transfusion PRBCs, diabetes mellitus type 2, osteoarthritis, severe COPD, chronic ongoing nicotine dependence, remote history of pneumonia, chronic low back pain and hearing disorder. Nasal swab positive for MSSA preoperative. POD #9 Mitral valve repair with 28 mm physio-2 ring, CABG 3 with saphenous vein grafts to first diagonal, obtuse marginal, posterior descending coronary arteries, closure of PFO, endovascular vein harvest, modified Castanon maze procedure with full left-sided lesion set and ligation of the left atrial appendage, SCOTT by anesthesia. Protamine reaction intraoperative Postoperative acute blood loss anemia, expected given his history of anemia, hemodilution and cardiopulmonary bypass. Acute on chronic kidney failure, likely from hypotension from intraoperative protamine reaction. Elevated transaminases, likely from hypotension from intraoperative protamine reaction. The patient was seen and examined in follow-up today 04/28/2022 at his bedside in the intensive care unit. He is sitting up to the bedside chair, is awake, alert, oriented 3 and is in no acute apparent distress. Denies any complaints of shortness of breath with sitting, although he is complaining of some shortness of breath with activity. Denies any complaints of pain at this time. The patient reports he was much active yesterday with walking in the hallway and reports that he walked around 4-5 times yesterday with assistance from nursing and therapy staff. Oxygen saturation are 95% on 1 L nasal cannula and he is achieving 1250 mL on his incentive spirometry with encouragement. He was started on a nitroglycerin drip yesterday per cardiology recommendations which is currently running at 5 mcg/m. Bedside telemetry showing atrial fibrillation heart rate 79 BPM. He remains on amiodarone 200 mg by mouth twice a day which was started yesterday for atrial fibrillation prophylaxis. Laboratory results this morning show a WBC count of 15.0, hemoglobin 7.1, hematocrit 23.4, platelets 205, sodium 134, potassium 4.7, chloride 98, CO2 32, BUN 71, creatinine 1.50, glucose 114, AST 90 and ALT 285. His Mooney catheter was removed yesterday and his urine output in the last 8 hours was 525 mL. His T- max temperature in the last 24 hours is 99.1F. Chest x-ray was reviewed. He remains hemodynamically stable. Objective - Vital Signs Vital signs: Vital Signs Temp 99.1 F 04/28/22 08:00 Pulse 91 04/28/22 08:00 Resp 25 H 04/28/22 08:00 BP 107/69 04/28/22 08:00 Pulse Ox 93 L 04/28/22 08:00 FiO2 100 04/22/22 16:00 Intake & Output 04/27/22 04/28/22 04/28/22 18:59 06:59 18:59 Intake Total 740.5 780 120 Output Total 1575 800 Balance -834.5 -20 120 Weight 102 kg Intake: Intake, IV Titration 10.5 Amount Nitroglycerin-D5w Pmx 50 10.5 mg In Dextrose/Water 1 250ml.bag @ 5 MCG/MIN 1.5 mls/hr IV .Q24H ZULMA Rx#: [id number] Oral 730 780 120 Output: Urine 1575 800 Other: Voiding Method Urinal Urinal # Voids 0 # Bowel Movements 1 ABP, PAP, CO, CI - Last Documented Arterial Blood Pressure 137/47 Pulmonary Artery Pressure 67/18 Cardiac Output 5.8 Cardiac Index 2.8 - Exam CONSTITUTIONAL: Sitting up to the bedside chair in the intensive care unit, appears comfortable, cooperative, no apparent acute distress. HEENT: Neck is supple, no JVD, no lymphadenopathy. RESPIRATORY: Lungs sounds essentially clear throughout, few scattered crackles to his bilateral bases. Diminished to his right lower lobe. Respirations are symmetrical and nonlabored. Currently on 1 L nasal cannula with oxygen saturations 95%. Able to achieve 1250 mL on incentive spirometry. Strong c ough. CARDIOVASCULAR: Irregular rhythm and controlled rate. S1 and S2 present, negative for S3, gallop or murmur. Sternum is stable. Palpable peripheral pulses bilaterally, +1 edema to his bilateral lower extremities. No calf pain or tenderness noted. Heart hugger in place with patient demonstrating appropriate use. Knee-high RAFAEL hose and sequential compression devices in place to his bilateral lower extremities. Bedside telemetry showing atrial fibrillation heart rate 79 BPM. GASTROINTESTINAL: Abdomen soft, nontender, nondistended. Active bowel sounds present 4 quadrants. Tolerating diet. Passing flatus. No guarding or rigidity. Bowel movement yesterday 04/27/2022. GENITOURINARY: Continues to void. Urine output 525 mL in the last 8 hours. INTEGUMENTARY: Skin is warm and dry with no evidence of clubbing or cyanosis. Midline sternal incision clean dry and well approximated, covered with dry intact dressing. Bilateral lower extremity EVH sites well approximated without redness or drainage. Erythema to his buttocks, dressing clean, dry and intact. NEUROLOGIC: Cranial nerves II through XII intact. No focal deficits. MUSKULOSKELETAL: Able to move all extremities, strength equal bilaterally, generalized weakness. PSYCHIATRIC: Alert and oriented to person place and time, appropriate affect, intact judgment and insight. INVASIVE LINES AND TUBES: Atrial and ventricular epicardial pacemaker wires in place and grounded. - Allied health notes Allied health notes reviewed: nursing - Labs CBC & Chem 7: 04/28/22 06:55 04/28/22 06:55 Labs: Abnormal Lab Results - Last 24 Hours (Table) 04/27/22 04/27/22 04/27/22 Range/Units 07:01 11:26 11:29 WBC (3.8-10.6) k/uL RBC 2.36 L (4.30-5.90) m/uL Hgb 7.3 L (13.0-17.5) gm/dL Hct 23.7 L (39.0-53.0) % MCV 100.3 H (80.0-100.0) fL MCHC 30.9 L (31.0-37.0) g/dL RDW (11.5-15.5) % Sodium (137-145) mmol/L Carbon Dioxide (22-30) mmol/L BUN (9-20) mg/dL Creatinine (0.66-1.25) mg/dL Glucose (74-99) mg/dL POC Glucose (mg/dL) 220 H 228 H (70-110) mg/dL Calcium (8.4-10.2) mg/dL AST (17-59) U/L ALT (4-49) U/L Total Protein (6.3-8.2) g/dL Albumin (3.5-5.0) g/dL 04/27/22 04/27/22 04/28/22 Range/Units 16:50 22:03 06:53 WBC (3.8-10.6) k/uL RBC (4.30-5.90) m/uL Hgb (13.0-17.5) gm/dL Hct (39.0-53.0) % MCV (80.0-100.0) fL MCHC (31.0-37.0) g/dL RDW (11.5-15.5) % Sodium (137-145) mmol/L Carbon Dioxide (22-30) mmol/L BUN (9-20) mg/dL Creatinine (0.66-1.25) mg/dL Glucose (74-99) mg/dL POC Glucose (mg/dL) 140 H 265 H 152 H (70-110) mg/dL Calcium (8.4-10.2) mg/dL AST (17-59) U/L ALT (4-49) U/L Total Protein (6.3-8.2) g/dL Albumin (3.5-5.0) g/dL 04/28/22 04/28/22 Range/Units 06:55 06:55 WBC 15.0 H (3.8-10.6) k/uL RBC 2.33 L (4.30-5.90) m/uL Hgb 7.1 L (13.0-17.5) gm/dL Hct 23.4 L (39.0-53.0) % MCV 100.8 H (80.0-100.0) fL MCHC 30.4 L (31.0-37.0) g/dL RDW 15.6 H (11.5-15.5) % Sodium 134 L (137-145) mmol/L Carbon Dioxide 32 H (22-30) mmol/L BUN 71 H (9-20) mg/dL Creatinine 1.50 H (0.66-1.25) mg/dL Glucose 114 H (74-99) mg/dL POC Glucose (mg/dL) (70-110) mg/dL Calcium 7.7 L (8.4-10.2) mg/dL AST 90 H (17-59) U/L ALT 285 H (4-49) U/L Total Protein 5.2 L (6.3-8.2) g/dL Albumin 3.0 L (3.5-5.0) g/dL - Imaging and Cardiology Chest x-ray: report reviewed, image reviewed Assessment and Plan Assessment: 1. Severe mitral valve regurgitation, status post mitral valve repair 2. Coronary artery disease, previous PCI, previous non-STEMI, status post CABG 3 3. History of paroxysmal atrial fibrillation, previous cardioversion, on Eliquis outpatient for anticoagulation, status post modified Castanon maze and ligation of left atrial appendage 4. Patent foramen ovale, status post closure 5. Tricuspid regurgitation 6. Chronic diastolic congestive heart failure, ischemic cardiomyopathy with EF 40-45% 7. History of hypertension 8. History hyperlipidemia, treated, cholesterol 150, LDL 72 9. Right internal carotid stenosis 50-79% 10. Anemia with history of GI bleed in November 2021 S/P transfusion PRBCs 11. Acute on chronic renal failure, baseline creatinine 1.2-1.6 12. Diabetes mellitus type 2, preoperative hemoglobin A1c 5.6% 13. Osteoarthritis 14. Severe COPD, preoperative FEV1 41% of predicted 15. Chronic ongoing nicotine dependence 16. Remote history of pneumonia 17. Chronic low back pain 18. Hearing disorder 19. Nasal swab positive for MSSA preoperative 20. Postoperative acute blood loss anemia, expected 21. Elevated transaminases 22. Protamine reaction intraoperative 23. Medical debility, generalized weakness Plan: 1. Continue aspirin, Plavix, beta siomara, and low dose Imdur. We will increase his metoprolol tartrate 50 mg by mouth twice a day with hold parameters. 2. Continue to hold statin due to elevated LFT, will reintroduce when liver enzymes stabilize. 3. Continue Amiodarone 200 mg by mouth twice a day. No anticoagulation until after his epicardial pacemaker wires have been removed, likely will discharge on Eliquis. 4. Continue Lasix 40 mg IV every 12 hours. 5. Wean O2 as tolerated. Encourage incentive spirometry 10 times every hour while awake. Bronchodilators per pulmonology/critical care management. 6. Increase activity, ambulate as tolerated. PT/OT/cardiac rehab following. Needs much encouragement with ambulation. 7. Will monitor daily labs and chest x-rays. Electronic replacement per protocol. Avoid hepatotoxic and nephrotoxic medications. 8. GI/DVT prophylaxis. 9. Insulin management per primary care service. Patient is a diabetic with a preoperative hemoglobin A1c of 5.6% on multiple oral medications, needs tight blood sugar control. 10. Pain control with current medication regimen. 11. Discontinue Mooney catheter, may bladder scan and straight cath for greater than 300 mL residual. 12. Strict accurate intake and output. Daily weights. 13. Shower daily. 14. Importance of risk modification including smoking cessation counseling and education provided to patient and family. 15. Nitroglycerin drip management per cardiology recommendations. 16. Keep atrial and ventricular epicardial pacemaker wires in place. 17. Send urinalysis with reflex culture white count today is 15.0. 18. More recommendations to follow based on patient's clinical course. Time with Patient: Greater than 30
[2022-04-28] MEDS ORDERED: BENZOCAINE/MENTHOL LOZENG 1 EACH LOZENGE MUCOUS MEM PRN (08:53)
[2022-04-28] MEDS ORDERED: METOPROLOL TARTRATE 50 MG TAB PO SCH ×2 (09:00→21:00)
[2022-04-28] MEDS: NON FORMULARY DRUG SQ SCH (09:04)
[2022-04-28] MEDS: PIOGLITAZONE 15 MG TAB PO SCH (09:10)
[2022-04-28] MEDS ORDERED: METOPROLOL TARTRATE 25 MG TAB PO ONE (09:15)
[2022-04-28] MEDS ORDERED: ALBUMIN HUMAN 25% 50 ML in EMPTY BAG 1 BAG IVPB ONE (10:21)
[2022-04-28 10:51] LABS: Appearance,Urine Cloudy (Clear); Bilirubin,Urine Negative (Negative); Blood,Urine Trace (Negative); Color,Urine Yellow; Glucose,Urine (UA) Negative (Negative); Hyaline Casts,Urine 7 /lpf (0-2); Ketones,Urine Negative (Negative); Leukocyte Esterase,Urine Negative (Negative); Nitrite,Urine Negative (Negative); Protein,Urine Negative (Negative); RBC,Urine 3 /hpf (0-5); Specific Gravity,Urine 1.013 (1.001-1.035); Uric Acid Crystals,Urine Occasional /hpf; Urobilinogen,Urine <2.0 mg/dL (<2.0); WBC,Urine 2 /hpf (0-5)
[2022-04-28] MEDS: BENZOCAINE/MENTHOL LOZENG 1 EACH LOZENGE MUCOUS MEM PRN (11:01)
--- NOTE | 2022-04-28 11:47 | P.PN ---
Subjective Progress Note Date: 04/28/22 On 04/23/2022, the patient is postop day #4. The patient underwent mitral valve repair and 3 vessel bypass surgery and closure of a PFO. The patient is sitting up on a chair and he seems to be calm and comfortable. His chest x-ray showing postsurgical changes/post thoracotomy changes and small effusions nonprotective changes in the lung base bilaterally. Otherwise, the patient is awake and alert and following commands. He is currently on 3 L of O2 nasal cannula with a pulse ox of 95%. His cardiac rhythm is sinus for now. Pain is under adequate control. Noted the patient has history of diabetes mellitus, chronic stage II kidney disease hyperlipidemia, the patient has had multiple orthopedic surgeries and the patient has also paroxysmal atrial fibrillation. The patient multivessel coronary artery disease as discussed earlier in the patient underwent cardiac bypass surgery. Blood work from today shows a hemoglobin 7.5 with a white cell count of 8.2 and a platelet count of 111. Sodium is at 135, potassium is at 6 with a BUN of 67 and a creatinine of 3.4 and a potassium is up to 6.0. The patient did have a shock liver situation where the ALT went up to 1512 and AST was up to 3595. Bilirubin remained of 0.9. The patient is currently on no pressors. The patient's chest tubes have been removed. In terms of blood products, he received 3 units of PRBC, 1 unit of platelets and 2 units of fresh frozen plasma postop. Currently is on Lasix drip which is running at 5 mg an hour. He was treated for his high potassium and he was given a dose of lokalma On today's evaluation of 04/24/2022, the patient is postop day #5. The patient is doing well and he has no specific complaints. He continues to diurese and the patient is currently on Lasix 3 mg an hour. The patient is currently on 4 L of O2 nasal cannula. The patient underwent mitral valve repair and 3 vessel bypass surgery and closure of a PFO. He is comfortable. Is using the incentive spirometer. Surgical one-sided dry clean and intact. The patient is currently on no pressors. At the same time, the patient was having an issue with an acute kidney injury and the creatinine is stable for now. The BUN is at 27 with a creatinine of 2.97 which is improved compared to yesterday. The patient has a white cell count of 9.2 with a hemoglobin of 7.1 and a platelet count of 122. Sodium is at 133, potassium level is at 5.1, improved compared to yesterday, the patient did have also a shock liver which is improving, AST is down to 1270 and ALTs on to 1038. Glucose at 1:30. Normal electrolytes. Alert and awake. Following commands and answering questions. No other significant events. Remains on Levemir insulin 20 units along with a sliding scale coverage. On 04/25/2022, the patient remains extubated on 3 L of oxygen by nasal cannula. Doing well. No specific complaints. He continues to diurese well. He has been improvement in renal function. The patient is on Lasix drip at 3 mg an hour and the patient's BUN is at 85 with a creatinine of 2.12. Sodium levels is 131. The WBC count is at 12.4 with a hemoglobin of 7.2 and a platelet count of 211. Liver functions is also improving as the patient is shock liver and LFTs are improving. The patient has no specific complaints. The chest x-ray from today showed cardiomegaly and pulmonary vessel congestion and bilateral pleural effusions. The patient is essentially postop day #6 On 04/26/2022, the patient is postop day #7, the patient remains on 3 L of oxygen by nasal cannula. Repeat chest x-ray was done today and the patient shows improvement in volume status although it is not completely. The patient continues to have some residual effusion in the lung bases. Meanwhile, LFTs are improving and is consistent with shock liver disease improving. AST is down to 266 with an LDL 477 and bilirubin of 1.2. The patient also has a improvement in renal function and the BUN is down to 83 with a creatinine of 1.54. Sodium is at 133, potassium is at 4.6, bicarb is 24 with a chloride of 99. The white cell cause of 9.1 with a hemoglobin of 7.4. Cardiac rhythm is sinus. No chest tube. The patient using incentive spirometer and falling approximately 1000. The patient remains on Lasix 40 mg IV every 12 hours. Ultram for pain control. The patient on a combination of aspirin and Plavix. The patient is also on metoprolol 12.5 mg by mouth twice a day. On 04/27/2022 the patient is postop day #8. The patient is currently on oxygen at 3 L. There was concern of pleural effusion. Based on that, ultrasound of the chest was done. Based on review of the ultrasound, there is no sizable effusion on the left. There is trace right-sided pleural effusion. As such, there is no need for thoracentesis at this point in time. This was discussed with the surgical team. The patient is still being diuresed with IV Lasix. We'll function continues to improve and the creatinine is down to 1.35. The liver function tests also continued to improve as the patient a component of shock liver which is improving. Hemoglobin stable at 7.3. The WBC count is at 10.5. Cardiac rhythm is A. fib fibrillation as the patient went into atrial fibrillation at around midnight. The patient was started on oral amiodarone 200 mg twice a day. No loading was given. The rate is controlled for now. No anticoagulants have been utilized.. Using incentive spirometer. Following approximately 1000 on his incentive spirometer. At the same time, the patient is on a combination of aspirin and Plavix. The patient is also on metoprolol dose of 25 mg by mouth twice a day. He is on amiodarone 200 mg by mouth daily as the patient went into amiodarone and he was started on amiodarone 04/28/2022, the patient's postop day #9. Currently is on oxygen at 1 L per minute nasal cannula. Chest x-ray is still unchanged and the patient is small bilateral pleural effusion and atelectatic change in the lung bases bilaterally. He is in sinus rhythm. He converted from H of fibrillation back into sinus. He is still on amiodarone. He is using incentive spirometer. His falling approximately 1000. He is weak. We were able to get him up and ambulate for short distances. He does have a stage II ulcer on his coccyx. He is still on Lasix and he is currently on 40 mg IV push every 12 hours. He is in a negative fluid balance. Urine output is adequate for now. Hemoglobin is at 7.1. There was some elevation in his white cell count was up to 15. As mentioned, all of the chest tubes arousals. His UA was negative. LFTs are improving. His BUN is at 71 with a creatinine of 1.5 and a sodium level is at 134. No other significant events otherwise for now. His blood sugars under adequate control. His sternum is stable clean and intact. We felt that on off is getting confused. For the most part and during my evaluation he seemed to be appropriate however he does have global generalized weakness. I Objective - Vital Signs Vital signs: Vital Signs Temp 99.1 F 04/28/22 08:00 Pulse 65 04/28/22 11:22 Resp 36 H 04/28/22 11:00 BP 87/48 04/28/22 11:00 Pulse Ox 95 04/28/22 11:00 FiO2 100 04/22/22 16:00 Intake & Output 04/27/22 04/28/22 04/28/22 18:59 06:59 18:59 Intake Total 740.5 780 270 Output Total 1575 800 272 Balance -834.5 -20 -2 Weight 102 kg Intake: Intake, IV Titration 10.5 50 Amount Albumin Human 25% 50 ml 50 In Empty Bag 1 bag @ 50 mls/hr IVPB ONCE ONE Rx#: [id number] Nitroglycerin-D5w Pmx 50 10.5 mg In Dextrose/Water 1 250ml.bag @ 5 MCG/MIN 1.5 mls/hr IV .Q24H ZULMA Rx#: [id number] Oral 730 780 220 Output: Urine 1575 800 225 Post Void Residual 47 Other: Voiding Method Urinal Urinal Urinal # Voids 0 # Bowel Movements 1 ABP, PAP, CO, CI - Last Documented Arterial Blood Pressure 137/47 Pulmonary Artery Pressure 67/18 Cardiac Output 5.8 Cardiac Index 2.8 - Exam CONSTITUTIONAL: Sitting up to the bedside chair in the intensive care unit, appears comfortable, cooperative, no apparent acute distress. HEENT: Neck is supple, no JVD, no lymphadenopathy. RESPIRATORY: Lungs sounds essentially clear throughout, few scattered crackles to his bilateral bases. Diminished to his right lower lobe. Respirations are symmetrical and nonlabored. Currently on 1 L nasal cannula with oxygen saturations 95%. Able to achieve 1250 mL on incentive spirometry. Strong cough. CARDIOVASCULAR: Irregular rhythm and controlled rate. S1 and S2 present, negative for S3, gallop or murmur. Sternum is stable. Palpable peripheral pulses bilaterally, +1 edema to his bilateral lower extremities. No calf pain or tenderness noted. Heart hugger in place with patient demonstrating appropriate use. Knee-high RAFAEL hose and sequential compression devices in place to his bilateral lower extremities. Bedside telemetry showing atrial fibrillation heart rate 79 BPM. GASTROINTESTINAL: Abdomen soft, nontender, nondistended. Active bowel sounds present 4 quadrants. Tolerating diet. Passing flatus. No guarding or rigidity. Bowel movement yesterday 04/27/2022. GENITOURINARY: Continues to void. Urine output 525 mL in the last 8 hours. INTEGUMENTARY: Skin is warm and dry with no evidence of clubbing or cyanosis. Midline sternal incision clean dry and well approximated, covered with dry intact dressing. Bilateral lower extremity EVH sites well approximated without redness or drainage. Erythema to his buttocks, dressing clean, dry and intact. NEUROLOGIC: Cranial nerves II through XII intact. No focal deficits. MUSKULOSKELETAL: Able to move all extremities, strength equal bilaterally, generalized weakness. PSYCHIATRIC: Alert and oriented to person place and time, appropriate affect, intact judgment and insight. INVASIVE LINES AND TUBES: Atrial and ventricular epicardial pacemaker wires in place and grounded. - Labs CBC & Chem 7: 04/28/22 06:55 04/28/22 06:55 Labs: Abnormal Lab Results - Last 24 Hours (Table) 04/27/22 04/27/22 04/28/22 Range/Units 16:50 22:03 06:53 WBC (3.8-10.6) k/uL RBC (4.30-5.90) m/uL Hgb (13.0-17.5) gm/dL Hct (39.0-53.0) % MCV (80.0-100.0) fL MCHC (31.0-37.0) g/dL RDW (11.5-15.5) % Sodium (137-145) mmol/L Carbon Dioxide (22-30) mmol/L BUN (9-20) mg/dL Creatinine (0.66-1.25) mg/dL Glucose (74-99) mg/dL POC Glucose (mg/dL) 140 H 265 H 152 H (70-110) mg/dL Calcium (8.4-10.2) mg/dL AST (17-59) U/L ALT (4-49) U/L Total Protein (6.3-8.2) g/dL Albumin (3.5-5.0) g/dL Urine Blood (Negative) Uric Acid Crystals (None) /hpf Hyaline Casts (0-2) /lpf 04/28/22 04/28/22 04/28/22 Range/Units 06:55 06:55 10:00 WBC 15.0 H (3.8-10.6) k/uL RBC 2.33 L (4.30-5.90) m/uL Hgb 7.1 L (13.0-17.5) gm/dL Hct 23.4 L (39.0-53.0) % MCV 100.8 H (80.0-100.0) fL MCHC 30.4 L (31.0-37.0) g/dL RDW 15.6 H (11.5-15.5) % Sodium 134 L (137-145) mmol/L Carbon Dioxide 32 H (22-30) mmol/L BUN 71 H (9-20) mg/dL Creatinine 1.50 H (0.66-1.25) mg/dL Glucose 114 H (74-99) mg/dL POC Glucose (mg/dL) (70-110) mg/dL Calcium 7.7 L (8.4-10.2) mg/dL AST 90 H (17-59) U/L ALT 285 H (4-49) U/L Total Protein 5.2 L (6.3-8.2) g/dL Albumin 3.0 L (3.5-5.0) g/dL Urine Blood Trace H (Negative) Uric Acid Crystals Occasional H (None) /hpf Hyaline Casts 7 H (0-2) /lpf Assessment and Plan Plan: 1. Severe mitral valve regurgitation, status post mitral valve repair, p ostoperative day # 9 2. Coronary artery disease, previous PCI, previous non-STEMI, status post CABG 3, postop day #9 3. History of paroxysmal atrial fibrillation, previous cardioversion, on Eliqu is outpatient for anticoagulation, status post modified Castanon maze and ligation of left atrial appendage, postop day #9 4. Patent foramen ovale, status post closure, postop day #9 5. Onset atrial fibrillation with a controlled rate and the patient is currently on oral amiodarone, this morning, the patient converted back into normal sinus rhythm. The patient is currently on metoprolol 25 mg by mouth twice a day. A higher dose of metoprolol caused some bradycardia and hypotension. The patient was given a bolus of albumin, 12.5 g, and the blood pressures under adequate control for now. 6. Chronic systolic congestive heart failure, ischemic cardiomyopathy with EF 40-45% 7. History of hypertension 8. History hyperlipidemia, treated, cholesterol 150, LDL 72 9. Right internal carotid stenosis 50-79% 10. Anemia with history of GI bleed in November 2021 S/P transfusion PRBCs 11. Acute on chronic renal failure, creatinine is at 1.5 12. Diabetes mellitus type 2, preoperative hemoglobin A1c 5.6% currently Levemir insulin 8 units along with a sliding scale coverage 13. Osteoarthritis 14. Severe COPD, preoperative FEV1 41% of predicted 15. Chronic ongoing nicotine dependence 16. Remote history of pneumonia 17. Chronic low back pain, hearing disorder 18. Nasal swab positive for MSSA preoperative 19. Postoperative acute blood loss anemia, expected 20. Elevated transaminases, most likely due to shock liver and the significant elevation of the ALT and AST which are being monitored, and the level is also improving and there is a decline and LFTs 21. Protamine reaction intraoperative 22, decubitus ulcer stage II Plan: Chest x-ray findings were noted Keep the patient on 1 L O2 nasal cannula Continue IV Lasix No need for thoracentesis and the patient has no sizable pleural effusion on the ultrasound Continue incentive spirometer Monitor LFTs, improving Surgical one-sided dry-cleaning and intact Hemoglobin is stable Continue amiodarone t The patient is going to be switched to Levemir insulin 8 units and is lying scattered coverage LFTs are also improving Frequent was positioning and Opteform to the decub ulcers in addition to Zn oxide We'll continue to follow
[2022-04-28 11:48] LABS: Glucose,Whole Blood 147 mg/dL (70-110)
--- NOTE | 2022-04-28 13:04 | P.PN ---
Subjective The patient is a 72-year-old male who is currently admitted to the hospital after undergoing CABG 3 with mitral valve repair and PFO closure on April 19. Postoperative complications include acute kidney injury, hypotension, and respiratory insufficiency requiring BiPAP. 04/26 Patient seen and examined. Patient admits he is still very edematous. His Lasix were stopped yesterday however continues to have significant upper and lower extremity edema. His creatinine has been improving close to back to baseline 1.5 today. Liver enzymes also have been improving. Denies any chest pain or pressure. 04/27 Patient seen and examined. Patient states his shortness breath has somewhat worsened since yesterday. He was placed on Lasix with a urine output. His creatinine remained stable and liver enzymes improving. Chest x-ray showing w orsening pulmonary edema. 04/28 Patient seen and examined. Patient still having significant dyspnea. He was briefly placed on nitroglycerin however blood pressures have been borderline and this was discontinued. Chest x-ray still showing significant vascular congestion and still has 2-3+ lower extremity edema. Admits he feels somewhat similar to yesterday and still significant dyspnea. He has been on Lasix with - 1300 mL output over the last 24 hours. Creatinine mildly increased up to 1.5. Liver enzymes mildly improving and remains on amiodarone. He converted to sinus rhythm. GENERAL: Ill-appearing, well-nourished and in no acute distress. NECK: Supple without JVD or thyromegaly. LUNGS: Breath sounds diminished to auscultation bilaterally. Respiration equal and unlabored. No wheezes, rales or rhonchi. HEART: Regular rate and rhythm. Soft systolic murmur. No rubs or gallops. S1 and S2 heard. EXTREMITIES: Normal range of motion, 3+ LE edema. No pedal pulses. VITALS: Vitals reviewed IMPRESSION: Coronary artery disease status post CABG 3 Mitral regurgitation, status post mitral valve repair PFO, status post closure Acute kidney injury, improving Hyperkalemia, secondary to a JENIFFER Elevated liver enzymes, likely due to shock liver Acute on chronic diastolic heart failure, LV EF 45-50% PLAN: Continue supportive care Patient remains very edematous and mild improvement with Lasix however still significant edema and we will change management analyst to Bumex. Watch creatinine closely with mild increasing creatinine possibly related to lower blood pressures. Objective - Vital Signs Vital signs: Vital Signs Temp 97.5 F L 04/28/22 12:00 Pulse 57 L 04/28/22 12:00 Resp 23 04/28/22 12:00 BP 84/61 04/28/22 12:00 Pulse Ox 93 L 04/28/22 12:00 FiO2 100 04/22/22 16:00 Intake & Output 04/27/22 04/28/22 04/28/22 18:59 06:59 18:59 Intake Total 740.5 780 670 Output Total 1575 800 272 Balance -834.5 -20 398 Weight 102 kg Intake: Intake, IV Titration 10.5 50 Amount Albumin Human 25% 50 ml 50 In Empty Bag 1 bag @ 50 mls/hr IVPB ONCE ONE Rx#: [id number] Nitroglycerin-D5w Pmx 50 10.5 mg In Dextrose/Water 1 250ml.bag @ 5 MCG/MIN 1.5 mls/hr IV .Q24H ZULMA Rx#: [id number] Oral 730 780 620 Output: Urine 1575 800 225 Post Void Residual 47 Other: Voiding Method Urinal Urinal Urinal # Voids 0 # Bowel Movements 1 ABP, PAP, CO, CI - Last Documented Arterial Blood Pressure 137/47 Pulmonary Artery Pressure 67/18 Cardiac Output 5.8 Cardiac Index 2.8 - Labs CBC & Chem 7: 04/28/22 06:55 04/28/22 06:55 Labs: Abnormal Lab Results - Last 24 Hours (Table) 04/27/22 04/27/22 04/28/22 Range/Units 16:50 22:03 06:53 WBC (3.8-10.6) k/uL RBC (4.30-5.90) m/uL Hgb (13.0-17.5) gm/dL Hct (39.0-53.0) % MCV (80.0-100.0) fL MCHC (31.0-37.0) g/dL RDW (11.5-15.5) % Sodium (137-145) mmol/L Carbon Dioxide (22-30) mmol/L BUN (9-20) mg/dL Creatinine (0.66-1.25) mg/dL Glucose (74-99) mg/dL POC Glucose (mg/dL) 140 H 265 H 152 H (70-110) mg/dL Calcium (8.4-10.2) mg/dL AST (17-59) U/L ALT (4-49) U/L Total Protein (6.3-8.2) g/dL Albumin (3.5-5.0) g/dL Urine Blood (Negative) Uric Acid Crystals (None) /hpf Hyaline Casts (0-2) /lpf 04/28/22 04/28/22 04/28/22 Range/Units 06:55 06:55 10:00 WBC 15.0 H (3.8-10.6) k/uL RBC 2.33 L (4.30-5.90) m/uL Hgb 7.1 L (13.0-17.5) gm/dL Hct 23.4 L (39.0-53.0) % MCV 100.8 H (80.0-100.0) fL MCHC 30.4 L (31.0-37.0) g/dL RDW 15.6 H (11.5-15.5) % Sodium 134 L (137-145) mmol/L Carbon Dioxide 32 H (22-30) mmol/L BUN 71 H (9-20) mg/dL Creatinine 1.50 H (0.66-1.25) mg/dL Glucose 114 H (74-99) mg/dL POC Glucose (mg/dL) (70-110) mg/dL Calcium 7.7 L (8.4-10.2) mg/dL AST 90 H (17-59) U/L ALT 285 H (4-49) U/L Total Protein 5.2 L (6.3-8.2) g/dL Albumin 3.0 L (3.5-5.0) g/dL Urine Blood Trace H (Negative) Uric Acid Crystals Occasional H (None) /hpf Hyaline Casts 7 H (0-2) /lpf 04/28/22 Range/Units 11:46 WBC (3.8-10.6) k/uL RBC (4.30-5.90) m/uL Hgb (13.0-17.5) gm/dL Hct (39.0-53.0) % MCV (80.0-100.0) fL MCHC (31.0-37.0) g/dL RDW (11.5-15.5) % Sodium (137-145) mmol/L Carbon Dioxide (22-30) mmol/L BUN (9-20) mg/dL Creatinine (0.66-1.25) mg/dL Glucose (74-99) mg/dL POC Glucose (mg/dL) 147 H (70-110) mg/dL Calcium (8.4-10.2) mg/dL AST (17-59) U/L ALT (4-49) U/L Total Protein (6.3-8.2) g/dL Albumin (3.5-5.0) g/dL Urine Blood (Negative) Uric Acid Crystals (None) /hpf Hyaline Casts (0-2) /lpf
[2022-04-28] MEDS: IPRATROPIUM-ALBUTEROL 3 ML NEB INHALATION PRN (13:56)
[2022-04-28] MEDS: BUMETANIDE 0.25 MG/ML 10 ML VIAL IV SCH (14:21)
--- NOTE | 2022-04-28 15:07 | P.PN ---
Progress Note - Text Progress Note Date: 04/28/22 Patient is a pleasant 72-year-old male came in the for elective mitral valve repair, CABG x 3 vessel, maze procedure, PFO closure. Patient is extubated sitting in the chair patient still has a Delta-Varghese catheter, CVP of around 12, cardiac index 3.1 patient creatinine went up to 1.70 resulting elevated potassium of 5.5 patient is off pressor support, off nitro drip patient still has 2 mediastinal and one left-sided chest tube. 04/21/2022 Patient is evaluated in ICU today, sitting up in chair. He is postoperative day #2 for elective mitral valve repair, hematocrit bypass grafting maze procedure and PFO closure. He is on BiPAP with fio2 of 40% Continues with mediastinal/left pleural chest tubes. Continue with indwelling catheter. Received dose of IV albumin yesterday afternoon. Chest xray today showing ongoing mild pulmonary vascular congestion, increasing patchy bibasilar opacities, atelectasis vs. pulmonary edema. Currently on lasix gtt at 10mls/hr, continues on dopamine gtt at 3.68 mls/hr. Continues on insulin gtt and blood glucose remains in the 140 to 130s. Labs today showing sodium 132, potassium 6.1 improved to 5.4, BUN 41, creatinine 2.53, elevated liver enzymes. Hgb 7.3. 04/22/2022 Patient continues to be monitored closely in intensive care unit, he is postoperative day #3 for elective mitral valve repair, maze procedure, PFO closure. Managed by primary team. He had limited echocardiogram completed showing EF 45 to 50%, mild to moderate MR, moderate pulmonary hypertension with moderate TR. Chest xray today shows slight improvement in pulmonary vascular congestion. Maintained on lasix gtt at 10mls/hr, dopamine gtt, Continues with 2 mediastinal chest tubes. Continues with indwelling catheter. Continues with right IJ swan/cordis, right radial arterial line. He has been weaned off BiPAP currently on high flow cannula at 15L. He has been tolerating some diet. Continues on insulin gtt which will continue until his diet stabilizes. Current glucose in the 140s. Creatinine today 3.14. April 23: I assumed care of patient today from [facility]. ICU. In a recliner. Tired. Little oral intake. Nasal cannula. Drips include IV dopamine and Lasix. Some shortness of breath. Mooney catheter. 04/24/2022: ICU. Up. 4 L nasal cannula. Did eat better. Edema present. On the Lasix drip 5 mg an hour. Some improvement in creatinine. 04/25/2022: ICU. Up in a recliner. Eating better. at the bedside. Edema present. Off Lasix drip. Feeling better. Creatinine coming down. LFTs improving. Home dose of Victoza was started 04/26/2022: ICU. Up in a recliner. 4 L nasal cannula. Eating about 50%. Accu-Cheks noted. 04/27/2022: ICU: Patient went into atrial fibrillation overnight. Put on oral amiodarone and Lopressor per CTS.. Some worsening of shortness of breath. Placed on IV Lasix. Eating some. Up in a recliner. 04/28/2022: ICU. Patient received Lopressor today for the A. fib. Patient went down into sinus rhythm. Blood pressure also dropped her was 70 systolic. Oxygen increased to 4 L. Short of breath. Patient did walk 10-12 steps up to the door. Eating fair. Lower extremity edema edema present. Up in a chair. Tired. Active Medications Acetaminophen (Acetaminophen Tab 325 Mg Tab) 650 mg PO Q6HR PRN PRN Reason: Fever and/ or Pain Last Admin: 04/28/22 08:21 Dose: 650 mg Albuterol/Ipratropium (Ipratropium-Albuterol 3 Ml Neb) 3 ml INHALATION RT-Q2H PRN PRN Reason: Shortness Of Breath Or Wheezing Last Admin: 04/28/22 13:56 Dose: 3 ml Albuterol/Ipratropium (Ipratropium-Albuterol 3 Ml Neb) 3 ml INHALATION RT-QID [facility] Last Admin: 04/28/22 11:10 Dose: 3 ml Amiodarone HCl (Amiodarone 200 Mg Tab) 200 mg PO BID [facility] Last Admin: 04/28/22 08:25 Dose: 200 mg Ascorbic Acid (Ascorbic Acid 500 Mg Tab) 500 mg PO DAILY [facility] Last Admin: 04/28/22 08:24 Dose: 500 mg Aspirin (Aspirin 325 Mg Tab) 325 mg PO DAILY [facility] Last Admin: 04/28/22 08:25 Dose: 325 mg Benzocaine/Menthol (Benzocaine/Menthol Lozeng 1 Each Lozenge) 1 each MUCOUS MEM Q2HR PRN PRN Reason: Sore Throat Last Admin: 04/28/22 11:01 Dose: 1 each Bisacodyl (Bisacodyl 10 Mg Supp) 10 mg RECTAL DAILY PRN PRN Reason: Constipation Last Admin: 04/27/22 09:22 Dose: 10 mg Budesonide/Formoterol Fumarate (Symbicort 160-4.5 Mcg Inhaler) 2 puff INHALATION RT-BID [facility] Last Admin: 04/28/22 08:20 Dose: Not Given Bumetanide (Bumetanide 0.25 Mg/Ml 10 Ml Vial) 2 mg IV Q12H [facility] Last Admin: 04/28/22 14:21 Dose: 2 mg Clopidogrel Bisulfate (Clopidogrel 75 Mg Tab) 75 mg PO DAILY [facility] Last Admin: 04/28/22 08:24 Dose: 75 mg Dextrose/Water (Dextrose 50% Syringe 50 Ml) 25 ml IVP PER PROTOCOL PRN; Protocol PRN Reason: Hypoglycemia Dextrose/Water (Dextrose 50% Syringe 50 Ml) 50 ml IVP PER PROTOCOL PRN; Protocol PRN Reason: Hypoglycemia Dextrose/Water (Dextrose 50% Syringe 50 Ml) 25 ml IVP PER PROTOCOL PRN; Protocol PRN Reason: Hypoglycemia Dextrose/Water (Dextrose 50% Syringe 50 Ml) 50 ml IVP PER PROTOCOL PRN; Protocol PRN Reason: Hypoglycemia Ferrous Sulfate (Ferrous Sulfate 325 Mg Tab) 325 mg PO BID [facility] Last Admin: 04/28/22 08:24 Dose: 325 mg Heparin Sodium (Porcine) (Heparin Sodium,Porcine/Pf 5,000 Unit/0.5 Ml Syringe) 5,000 unit SQ Q8HR [facility] Last Admin: 04/28/22 08:27 Dose: 5,000 unit Calcium Gluconate/Sodium (Chloride 2 gm/ IV Solution) 100 mls @ 100 mls/hr IVPB ONCE PRN PRN Reason: Ionized Calcium less than 4.4 Stop: 05/19/22 23:00 Insulin Aspart (Insulin Aspart (Novolog) 100 Unit/Ml Vial) 0 unit SQ ACHS [facility]; Protocol Last Admin: 04/28/22 11:50 Dose: Not Given Insulin Detemir (Insulin Detemir (Levemir) 100 Unit/Ml Syr) 8 unit SQ HS [facility] Last Admin: 04/27/22 22:22 Dose: 8 unit Isosorbide Mononitrate (Isosorbide Mononitrate Er 15 Mg Tab) 15 mg PO DAILY [facility] Last Admin: 04/28/22 08:26 Dose: 15 mg Magnesium Hydroxide (Magnesium Hydroxide 2,400 Mg/10 Ml Cup) 2,400 mg PO BID PRN PRN Reason: Constipation Last Admin: 04/22/22 07:08 Dose: 2,400 mg Metoprolol Tartrate (Metoprolol Tartrate 25 Mg Tab) 25 mg PO BID [facility] Miscellaneous Information (Potassium Replacement Protocol 1 Each Misc) 1 each MISCELLANE DAILY PRN; Protocol PRN Reason: Per Protocol Miscellaneous Information (Magnesium Replacement Protocol 1 Each Misc) 1 each MISCELLANE DAILY PRN; Protocol PRN Reason: Per Protocol Non-Formulary Medication (Non Formulary Drug) 1 each SQ DAILY [facility] Last Admin: 04/28/22 09:04 Dose: 1 each Ondansetron HCl (Ondansetron 4 Mg/2 Ml Vial) 4 mg IVP Q6HR PRN PRN Reason: Nausea And Vomiting Last Admin: 04/27/22 09:22 Dose: 4 mg Pioglitazone HCl (Pioglitazone 15 Mg Tab) 15 mg PO DAILY [facility] Last Admin: 04/28/22 09:10 Dose: 15 mg Senna/Docusate Sodium (Sennosides-Docusate Sodium 1 Each Tab) 2 each PO HS [facility] Last Admin: 04/27/22 22:22 Dose: 2 each Sodium Chloride (Sodium Chloride 0.9% Flush 10 Ml Syringe) 10 ml IV BID [facility] Last Admin: 04/28/22 08:31 Dose: 10 ml Tramadol HCl (Tramadol 50 Mg Tab) 50 mg PO TID [facility] Last Admin: 04/28/22 11:27 Dose: 50 mg On examination: VITAL SIGNS: 97.5, 66, 20, 80/67, 97% on 4 L GENERAL APPEARANCE: Up in a recliner, tired HEENT: Normal external appearance of nose and ear. Oral cavity normal EYES: Pupils equal. Conjunctiva normal. NECK: JVD not raised. Mass not palpable. RESPIRATORY: Respiratory effort increased. Lungs diminished breath sounds. CARDIOVASCULAR: First and second sounds normal. Edema present ABDOMEN: Soft. Liver and spleen not palpable. No tenderness. No mass palpable. Mooney catheter PSYCHIATRY: AO 3, mood and affect normal INVESTIGATIONS, reviewed in the clinical context: 04/28/2022: WBC 15 hemoglobin 7.1 potassium 4.7 BUN 71 creatinine 1.50 AST 90 AST 285 04/27/2022: WBC 10.5 hemoglobin 7.3 platelets 167 potassium 4.1 BUN 75 creatinine 1.35 AST was 67 ALT 378 04/26/2022: WBC 9.1 hemoglobin 7.4 platelets 101 potassium 4.6 BUN 83 creatinine 1.5 for AST 266 ALT 477 04/25/2022: WBC 12.4 hemoglobin 7.2 potassium 4.5 BUN 85 creatinine 2.12 AST 503 ALT 619 04/24/2022: WBC 9.2 hemoglobin 7.1 platelets 122 potassium 5.1 BUN 77 creatinine 2.97 AST 1270 ALT 1038 WBC 8.2 hemoglobin 7.5 platelets 111 sodium 135 progression 6 BUN 67 creatinine 3.43 AST 3595 ALT 1512 Limited 2-D echocardiogram: EF 45-50%. Inferior wall hypokinesis. Moderate MR. Moderate pulmonary hypertension with moderate TR. Assessment and plan -Acute on chronic congestive heart exacerbation from systolic/diastolic dysfunction EF 45-50%: 6 clinical worsening, precipitated by worsening A. fib IV Bumex 2 mg every 12 -Acute hypoxic respiratory failure from pulmonary edema: Worsening 4 L nasal cannula -Diabetes Mellitus type 2 with hyperglycemia, Victoza , Actos. Levemir 8 units daily at bedtime -Paroxysmal atrial fibrillation status post modified Castanon-Maze procedure,: With rapid ventricular rate: Now back into sinus rhythm amiodarone ,Lopressor. -acute renal failure on chronic kidney disease stage II with renal failure is probably prerenal azotemia, cardiorenal syndrome.: Improving Creatinine peaked at 3.43. Down to 1.5 for -hyperkalemia secondary to acute renal failure: Corrected Received Lokelma. Renal diet -Acute hepatitis, likely ischemic: Improving Follow closely. GI services not available in the hospital. Hold any hepatic offensive medications. Follow LFTs patient started back on amiodarone -COPD without any acute exacerbation DuoNeb -Hyperlipidemia Hold statins, because of elevated LFTs - coronary artery disease with previous PCI Aspirin, Lasix, Imdur, Lopressor currently on hold -Acute postprocedure blood loss anemia as expected from surgery Patient receive 2 units of PRBC, follow CBC -Chronic nicotine dependence -Severe MR status post mitral valve failure, status post CABG, status post PFO Patel -Moderate secondary probably hypertension 4 L nasal cannula. Lopressor 25 mg twice a day. Amiodarone. Discussed with patient. Follow with consultants.
[2022-04-28 16:22] LABS: Glucose,Whole Blood 205 mg/dL (70-110)
[2022-04-28 19:54] LABS: Glucose,Whole Blood 211 mg/dL (70-110)
[2022-04-28] MEDS: INSULIN DETEMIR (LEVEMIR) 100 UNIT/ML SYR SQ SCH (20:04)
[2022-04-28] MEDS: SENNOSIDES-DOCUSATE SODIUM 1 EACH TAB PO SCH (20:04)
[2022-04-29] MEDS: BUMETANIDE 0.25 MG/ML 10 ML VIAL IV SCH ×4 (04:05→15:53)
[2022-04-29 04:21] LABS: Basophils # (A) 0.1 k/uL (0-0.2); Basophils % (A) 0 %; Eosinophils # (A) 0.2 k/uL (0-0.7); Eosinophils % (A) 1 %; HCT 24.8 % (39.0-53.0); HGB 7.6 gm/dL (13.0-17.5); Hypochromasia Marked; Lymphocytes # (A) 0.8 k/uL (1.0-4.8); Lymphocytes % (A) 4 %; MCH 30.6 pg (25.0-35.0); MCHC 30.5 g/dL (31.0-37.0); MCV 100.4 fL (80.0-100.0); Macrocytosis Slight; Mean Platelet Volume 9.3; Monocytes # (A) 1.8 k/uL (0-1.0); Monocytes % (A) 10 %; Neutrophils # (A) 15.1 k/uL (1.3-7.7); Neutrophils % (A) 82 %; Platelet Count 272 k/uL (150-450); Poikilocytosis Slight; RBC 2.47 m/uL (4.30-5.90); RDW 15.7 % (11.5-15.5); WBC 18.5 k/uL (3.8-10.6)
[2022-04-29 04:30] LABS: Albumin 3.3 g/dL (3.5-5.0); Magnesium 2.7 mg/dL (1.6-2.3); Potassium 4.9 mmol/L (3.5-5.1); Total Bilirubin 1.1 mg/dL (0.2-1.3); Total Protein 5.4 g/dL (6.3-8.2)
[2022-04-29] MEDS: IPRATROPIUM-ALBUTEROL 3 ML NEB INHALATION PRN ×2 (05:29→23:30)
[2022-04-29 06:13] LABS: Glucose,Whole Blood 119 mg/dL (70-110)
[2022-04-29] MEDS: INSULIN ASPART (NovoLOG) 100 UNIT/ML VIAL SQ SCH ×4 (06:15→21:06)
[2022-04-29] MEDS: ACETAMINOPHEN TAB 325 MG TAB PO PRN ×2 (06:36→19:57)
--- NOTE | 2022-04-29 07:30 | XR ---
EXAMINATION TYPE: XR chest 1V portable DATE OF EXAM: 04/29/2022 COMPARISON: 04/28/2022 HISTORY: Postcardiac surgery TECHNIQUE: Single frontal view of the chest is obtained. FINDINGS: There are postsurgical changes of aortic valve replacement. There is a persistent small right pleural effusion. The left basilar opacity obscuring the left hemid iaphragm possibly slightly improved. The band of opacity in the left upper lobe which most likely rep resent atelectasis has resolved in the interval. There is no pneumothorax. The osseous structures are intact. There been bilateral rotator cuff repairs IMPRESSION: Acute cardiopulmonary disease status post CABG surgery. There is been mild interval impr ovement as described above.
[2022-04-29] MEDS: SYMBICORT 160-4.5 MCG INHALER INHALATION SCH ×2 (07:46→20:06)
[2022-04-29] MEDS: IPRATROPIUM-ALBUTEROL 3 ML NEB INHALATION SCH ×4 (07:46→20:05)
[2022-04-29] MEDS ORDERED: ALBUMIN HUMAN 25% 50 ML in EMPTY BAG 1 BAG IVPB ONE (08:38)
[2022-04-29] MEDS: ISOSORBIDE MONONITRATE ER 15 MG TAB PO SCH (09:11)
[2022-04-29] MEDS: ASPIRIN 325 MG TAB PO SCH (09:11)
[2022-04-29] MEDS: FERROUS SULFATE 325 MG TAB PO SCH ×2 (09:11→19:57)
[2022-04-29] MEDS: PIOGLITAZONE 15 MG TAB PO SCH (09:12)
[2022-04-29] MEDS: AMIODARONE 200 MG TAB PO SCH ×2 (09:12→19:58)
[2022-04-29] MEDS: TAMSULOSIN 0.4 MG CAP.ER.24H PO SCH (09:12)
[2022-04-29] MEDS: ASCORBIC ACID 500 MG TAB PO SCH (09:12)
[2022-04-29] MEDS: CLOPIDOGREL 75 MG TAB PO SCH (09:12)
[2022-04-29] MEDS: METOPROLOL TARTRATE 25 MG TAB PO SCH ×2 (09:12→19:58)
[2022-04-29] MEDS: HEPARIN SODIUM,PORCINE/PF 5,000 UNIT/0.5 ML SYRINGE SQ SCH ×3 (09:12→23:15)
[2022-04-29] MEDS ORDERED: CALCIUM GLUCONATE IN NACL 1 GM in SALINE 1 100ML.BAG IVPB ONE (09:14)
--- NOTE | 2022-04-29 09:18 | P.PN ---
Subjective Progress Note Date: 04/29/22 Principal diagnosis: Severe mitral valve regurgitation, coronary artery disease, paroxysmal atrial fibrillation, patent foramen ovale, tricuspid regurgitation, chronic systolic congestive heart failure. Past medical history significant for hypertension, hyperlipidemia, coronary artery disease with history of previous PCI, non-ST elevated myocardial infarction in November 2021, ischemic cardiomyopathy with EF 40- 45%, right internal carotid stenosis 50-79%, renal insufficiency, anemia with history of GI bleed in November 2021 S/P transfusion PRBCs, diabetes mellitus type 2, osteoarthritis, severe COPD, chronic ongoing nicotine dependence, remote history of pneumonia, chronic low back pain and hearing disorder. Nasal swab positive for MSSA preoperative. POD #10 Mitral valve repair with 28 mm physio-2 ring, CABG 3 with saphenous vein grafts to first diagonal, obtuse marginal, posterior descending coronary arteries, closure of PFO, endovascular vein harvest, modified Castanon maze procedure with full left-sided lesion set and ligation of the left atrial appendage, SCOTT by anesthesia. Protamine reaction intraoperative Postoperative acute blood loss anemia, expected given his history of anemia, hemodilution and cardiopulmonary bypass. Acute on chronic kidney failure, likely from hypotension from intraoperative protamine reaction. Elevated transaminases, likely from hypotension from intraoperative protamine reaction. The patient was seen and examined today 04/29/2022 at his bedside in the intensive care unit. He is sitting up to the bedside chair, is awake, alert, oriented 3 and is in no acute apparent distress. The patient had some episodes of confusion yesterday and his Ultram was discontinued due to the confusion. Oxygen saturations are 96% on 3 L nasal cannula and he is achieving 2172-6903 mL on his incentive spirometry with encouragement. Denies any complaints of pain at this time, although continues to complain of generalized weakness and shortness of breath with exertion. Bedside telemetry is currently showing normal sinus rhythm heart rate 70 bpm, no further episodes of atrial fibrillation have been reported. He remains hemodynamically stable and is currently on no inotropic pressure support. This morning the patient urinated around 100 mL of urine, a bladder scan was completed which showed a postvoid residual of 400 mL and the patient was straight cathed for 450 mL. Laboratory results this morning show a WBC count of 18.5, hemoglobin 7.6, hematocrit 24.8, platelets 272, sodium 129, potassium 4.9, chloride 94, CO2 27, T1 81, creatinine 1.98, glucose 86, calcium 8.0, total bilirubin 2.7, liver enzymes continue to trend downward with his AST this morning 62 and his ALT 213. Patient continues on amiodarone 200 mg by mouth twice a day and metoprolol tartrate 25 mg by mouth twice a day. Chest x-ray was reviewed. IV Lasix has been switched to Bumex 2 mg IV every 12 hours. Objective - Vital Signs Vital signs: Vital Signs Temp 98.5 F 04/29/22 04:00 Pulse 96 04/29/22 07:58 Resp 24 04/29/22 07:00 BP 111/56 04/29/22 07:00 Pulse Ox 94 L 04/29/22 07:00 FiO2 100 04/22/22 16:00 Intake & Output 04/28/22 04/29/22 04/29/22 18:59 06:59 18:59 Intake Total 880 1080 Output Total 497 1332 Balance 383 -252 Weight 103.1 kg Intake: Intake, IV Titration 50 Amount Albumin Human 25% 50 ml 50 In Empty Bag 1 bag @ 50 mls/hr IVPB ONCE ONE Rx#: [id number] Oral 830 1080 Output: Urine 450 925 Post Void Residual 47 407 Other: Voiding Method Urinal # Voids 1 ABP, PAP, CO, CI - Last Documented Arterial Blood Pressure 137/47 Pulmonary Artery Pressure 67/18 Cardiac Output 5.8 Cardiac Index 2.8 - Exam CONSTITUTIONAL: Sitting up to the bedside chair in the intensive care unit, appears comfortable, cooperative, no apparent acute distress. HEENT: Neck is supple, no JVD, no lymphadenopathy. RESPIRATORY: Lungs sounds essentially clear throughout, few scattered crackles and faint expiratory wheezes to his bilateral bases. Diminished to his right lower lobe. Respirations are symmetrical and nonlabored. Currently on 3 L nasal cannula with oxygen saturations 95%. Able to achieve 3009-5231 mL on incentive spirometry. Strong cough. CARDIOVASCULAR: Regular rhythm and rate. S1 and S2 present, negative for S3, gallop or murmur. Sternum is stable. Palpable peripheral pulses bilaterally, +1 to +2 edema to his bilateral lower extremities. No calf pain or tenderness noted. Heart hugger in place with patient demonstrating appropriate use. Knee- high RAFAEL hose and sequential compression devices in place to his bilateral lower extremities. Bedside telemetry showing normal sinus rhythm heart rate 70 BPM. GASTROINTESTINAL: Abdomen soft, nontender, nondistended. Active bowel sounds present 4 quadrants. Tolerating diet. Passing flatus. No guarding or rig idity. Bowel movement on 04/27/2022. GENITOURINARY: Continues to void. Urine output 825 mL in the last 8 hours. Required straight cath after a postvoid residual of 400 mL with 450 mL drained with his straight cath. INTEGUMENTARY: Skin is warm and dry with no evidence of clubbing or cyanosis. Midline sternal incision clean dry and well approximated, covered with dry intact dressing. Bilateral lower extremity EVH sites well approximated without redness or drainage. Erythema to his buttocks, optifoam dressing clean, dry and intact. MUSKULOSKELETAL: Able to move all extremities, strength equal bilaterally, generalized weakness. PSYCHIATRIC: Alert and oriented to person place and time, appropriate affect, intact judgment and insight. INVASIVE LINES AND TUBES: Atrial and ventricular epicardial pacemaker wires in place and grounded. - Allied health notes Allied health notes reviewed: nursing - Labs CBC & Chem 7: 04/29/22 03:54 04/29/22 03:54 Labs: Abnormal Lab Results - Last 24 Hours (Table) 04/28/22 04/28/22 04/28/22 Range/Units 10:00 11:46 16:21 WBC (3.8-10.6) k/uL RBC (4.30-5.90) m/uL Hgb (13.0-17.5) gm/dL Hct (39.0-53.0) % MCV (80.0-100.0) fL MCHC (31.0-37.0) g/dL RDW (11.5-15.5) % Neutrophils # (1.3-7.7) k/uL Lymphocytes # (1.0-4.8) k/uL Monocytes # (0-1.0) k/uL Sodium (137-145) mmol/L Chloride (98-107) mmol/L BUN (9-20) mg/dL Creatinine (0.66-1.25) mg/dL POC Glucose (mg/dL) 147 H 205 H (70-110) mg/dL Calcium (8.4-10.2) mg/dL Magnesium (1.6-2.3) mg/dL AST (17-59) U/L ALT (4-49) U/L Total Protein (6.3-8.2) g/dL Albumin (3.5-5.0) g/dL Urine Blood Trace H (Negative) Uric Acid Crystals Occasional H (None) /hpf Hyaline Casts 7 H (0-2) /lpf 04/28/22 04/29/22 04/29/22 Range/Units 19:52 03:54 03:54 WBC 18.5 H (3.8-10.6) k/uL RBC 2.47 L (4.30-5.90) m/uL Hgb 7.6 L (13.0-17.5) gm/dL Hct 24.8 L (39.0-53.0) % MCV 100.4 H (80.0-100.0) fL MCHC 30.5 L (31.0-37.0) g/dL RDW 15.7 H (11.5-15.5) % Neutrophils # 15.1 H (1.3-7.7) k/uL Lymphocytes # 0.8 L (1.0-4.8) k/uL Monocytes # 1.8 H (0-1.0) k/uL Sodium 129 L (137-145) mmol/L Chloride 94 L (98-107) mmol/L BUN 81 H (9-20) mg/dL Creatinine 1.98 H (0.66-1.25) mg/dL POC Glucose (mg/dL) 211 H (70-110) mg/dL Calcium 8.0 L (8.4-10.2) mg/dL Magnesium 2.7 H (1.6-2.3) mg/dL AST 62 H (17-59) U/L ALT 213 H (4-49) U/L Total Protein 5.4 L (6.3-8.2) g/dL Albumin 3.3 L (3.5-5.0) g/dL Urine Blood (Negative) Uric Acid Crystals (None) /hpf Hyaline Casts (0-2) /lpf 04/29/22 Range/Units 06:12 WBC (3.8-10.6) k/uL RBC (4.30-5.90) m/uL Hgb (13.0-17.5) gm/dL Hct (39.0-53.0) % MCV (80.0-100.0) fL MCHC (31.0-37.0) g/dL RDW (11.5-15.5) % Neutrophils # (1.3-7.7) k/uL Lymphocytes # (1.0-4.8) k/uL Monocytes # (0-1.0) k/uL Sodium (137-145) mmol/L Chloride (98-107) mmol/L BUN (9-20) mg/dL Creatinine (0.66-1.25) mg/dL POC Glucose (mg/dL) 119 H (70-110) mg/dL Calcium (8.4-10.2) mg/dL Magnesium (1.6-2.3) mg/dL AST (17-59) U/L ALT (4-49) U/L Total Protein (6.3-8.2) g/dL Albumin (3.5-5.0) g/dL Urine Blood (Negative) Uric Acid Crystals (None) /hpf Hyaline Casts (0-2) /lpf - Imaging and Cardiology Chest x-ray: report reviewed, image reviewed Assessment and Plan Assessment: 1. Severe mitral valve regurgitation, status post mitral valve repair 2. Coronary artery disease, previous PCI, previous non-STEMI, status post CABG 3 3. History of paroxysmal atrial fibrillation, previous cardioversion, on [facility] outpatient for anticoagulation, status post modified Castanon maze and ligation of left atrial appendage 4. Patent foramen ovale, status post closure 5. Tricuspid regurgitation 6. Chronic diastolic congestive heart failure, ischemic cardiomyopathy with EF 40-45% 7. History of hypertension 8. History hyperlipidemia, treated, cholesterol 150, LDL 72 9. Right internal carotid stenosis 50-79% 10. Anemia with history of GI bleed in November 2021 S/P transfusion PRBCs 11. Acute on chronic renal failure, baseline creatinine 1.2-1.6 12. Diabetes mellitus type 2, preoperative hemoglobin A1c 5.6% 13. Osteoarthritis 14. Severe COPD, preoperative FEV1 41% of predicted 15. Chronic ongoing nicotine dependence 16. Remote history of pneumonia 17. Chronic low back pain 18. Hearing disorder 19. Nasal swab positive for MSSA preoperative 20. Postoperative acute blood loss anemia, expected 21. Elevated transaminases, continue to trend downward, AST 62 and ALT 213 today 22. Protamine reaction intraoperative 23. Medical debility, generalized weakness Plan: 1. Continue aspirin, Plavix, beta siomara, and low dose Imdur. We will increase his metoprolol tartrate as tolerated with hold parameters. 2. Continue to hold statin due to elevated LFT, will reintroduce when liver enzymes stabilize. 3. Continue Amiodarone 200 mg by mouth twice a day for atrial fibrillation prophylaxis. No anticoagulation until after his epicardial pacemaker wires have been removed, likely will discharge on Eliquis. 4. Continue Bumex 2 mg IV every 12 hours. Albumin 25% IV piggyback 1 now prior to his morning dose of Bumex. 5. Wean O2 as tolerated. Encourage incentive spirometry 10 times every hour while awake. Bronchodilators per pulmonology/critical care management. 6. Increase activity, ambulate as tolerated. PT/OT/cardiac rehab following. Needs much encouragement with ambulation. 7. Will monitor daily labs and chest x-rays. Electronic replacement per protocol. Avoid hepatotoxic and nephrotoxic medications. 8. GI/DVT prophylaxis. 9. Insulin management per primary care service. Patient is a diabetic with a preoperative hemoglobin A1c of 5.6% on multiple oral medications, needs tight blood sugar control. 10. Pain control with current medication regimen. Ultram discontinued due to patient confusion yesterday. 11. Bladder scan every 6 hours and when necessary postvoid residual, place Mooney catheter for greater than 300 mL residual. Flomax 0.4 mg by mouth daily initiated this morning. Urinalysis was negative. 12. Strict accurate intake and output. Daily weights. 13. Shower daily. 14. Importance of risk modification including smoking cessation counseling and education provided to patient and family. 15. Send for blood culture and sputum culture due to elevated WBC count of 18.5. We will also send a pro calcitonin level and a C reactive protein. 16. Keep atrial and ventricular epicardial pacemaker wires in place. 17. Computed tomography scan of the chest without contrast has been ordered. 18. Calcium gluconate 1 g IV piggyback 1 now. 19. More recommendations to follow based on patient's clinical course. Time with Patient: Greater than 30
--- NOTE | 2022-04-29 10:15 | P.PN ---
Subjective The patient is a 72-year-old male who is currently admitted to the hospital after undergoing CABG 3 with mitral valve repair and PFO closure on April 19. Postoperative complications include acute kidney injury, hypotension, and respiratory insufficiency requiring BiPAP. 04/26 Patient seen and examined. Patient admits he is still very edematous. His Lasix were stopped yesterday however continues to have significant upper and lower extremity edema. His creatinine has been improving close to back to baseline 1.5 today. Liver enzymes also have been improving. Denies any chest pain or pressure. 04/27 Patient seen and examined. Patient states his shortness breath has somewhat worsened since yesterday. He was placed on Lasix with a urine output. His creatinine remained stable and liver enzymes improving. Chest x-ray showing w orsening pulmonary edema. 04/28 Patient seen and examined. Patient still having significant dyspnea. He was briefly placed on nitroglycerin however blood pressures have been borderline and this was discontinued. Chest x-ray still showing significant vascular congestion and still has 2-3+ lower extremity edema. Admits he feels somewhat similar to yesterday and still significant dyspnea. He has been on Lasix with - 1300 mL output over the last 24 hours. Creatinine mildly increased up to 1.5. Liver enzymes mildly improving and remains on amiodarone. He converted to sinus rhythm. 04/29 Patient seen and examined. Patient still with significant dyspnea. Denies any chest pain or pressure. Still has significant lower extremity edema. Has had good urine output. Creatinine increased up to 1.9. White blood cell increased to 18.5, hemoglobin 7.6, sodium 129, remains in sinus rhythm on telemetry, AST 62, ALT 213, CRP 5.6, albumin 3.3. GENERAL: Ill-appearing, well-nourished and in no acute distress. NECK: Supple without JVD or thyromegaly. LUNGS: Breath sounds diminished to auscultation bilaterally. Respiration equal and unlabored. No wheezes, rales or rhonchi. HEART: Regular rate and rhythm. +2/6 systolic murmur. No rubs or gallops. S1 and S2 heard. EXTREMITIES: Normal range of motion, 3+ LE edema. No pedal pulses. VITALS: Vitals reviewed IMPRESSION: Coronary artery disease status post CABG 3 Mitral regurgitation, status post mitral valve repair PFO, status post closure Acute kidney injury, improving Hyperkalemia, secondary to a JENIFFER Elevated liver enzymes, likely due to shock liver Acute on chronic diastolic heart failure, LV EF 45-50% PLAN: Continue supportive care Patient still with significant edema and chest x-ray still showing significant effusion and vascular congestion. He was switched over to Bumex with continued urine output however worsening creatinine and worsened hyponatremia. Check repeat echo. Agree with CAT scan to further evaluate pulmonary status. Consider repeat right heart catheterization if continued worsened creatinine. Further recommendations to follow. Objective - Vital Signs Vital signs: Vital Signs Temp 98.5 F 04/29/22 04:00 Pulse 96 04/29/22 07:58 Resp 24 04/29/22 07:00 BP 111/56 04/29/22 07:00 Pulse Ox 94 L 04/29/22 07:00 FiO2 100 04/22/22 16:00 Intake & Output 04/28/22 04/29/22 04/29/22 18:59 06:59 18:59 Intake Total 880 1080 Output Total 497 1332 Balance 383 -252 Weight 103.1 kg Intake: Intake, IV Titration 50 Amount Albumin Human 25% 50 ml 50 In Empty Bag 1 bag @ 50 mls/hr IVPB ONCE ONE Rx#: [id number] Oral 830 1080 Output: Urine 450 925 Post Void Residual 47 407 Other: Voiding Method Urinal # Voids 1 ABP, PAP, CO, CI - Last Documented Arterial Blood Pressure 137/47 Pulmonary Artery Pressure 67/18 Cardiac Output 5.8 Cardiac Index 2.8 - Labs CBC & Chem 7: 04/29/22 03:54 04/29/22 03:54 Labs: Abnormal Lab Results - Last 24 Hours (Table) 04/28/22 04/28/22 04/28/22 Range/Units 10:00 11:46 16:21 WBC (3.8-10.6) k/uL RBC (4.30-5.90) m/uL Hgb (13.0-17.5) gm/dL Hct (39.0-53.0) % MCV (80.0-100.0) fL MCHC (31.0-37.0) g/dL RDW (11.5-15.5) % Neutrophils # (1.3-7.7) k/uL Lymphocytes # (1.0-4.8) k/uL Monocytes # (0-1.0) k/uL Sodium (137-145) mmol/L Chloride (98-107) mmol/L BUN (9-20) mg/dL Creatinine (0.66-1.25) mg/dL POC Glucose (mg/dL) 147 H 205 H (70-110) mg/dL Calcium (8.4-10.2) mg/dL Magnesium (1.6-2.3) mg/dL AST (17-59) U/L ALT (4-49) U/L C-Reactive Protein (<1.0) mg/dL Total Protein (6.3-8.2) g/dL Albumin (3.5-5.0) g/dL Urine Blood Trace H (Negative) Uric Acid Crystals Occasional H (None) /hpf Hyaline Casts 7 H (0-2) /lpf 04/28/22 04/29/22 04/29/22 Range/Units 19:52 03:54 03:54 WBC 18.5 H (3.8-10.6) k/uL RBC 2.47 L (4.30-5.90) m/uL Hgb 7.6 L (13.0-17.5) gm/dL Hct 24.8 L (39.0-53.0) % MCV 100.4 H (80.0-100.0) fL MCHC 30.5 L (31.0-37.0) g/dL RDW 15.7 H (11.5-15.5) % Neutrophils # 15.1 H (1.3-7.7) k/uL Lymphocytes # 0.8 L (1.0-4.8) k/uL Monocytes # 1.8 H (0-1.0) k/uL Sodium 129 L (137-145) mmol/L Chloride 94 L (98-107) mmol/L BUN 81 H (9-20) mg/dL Creatinine 1.98 H (0.66-1.25) mg/dL POC Glucose (mg/dL) 211 H (70-110) mg/dL Calcium 8.0 L (8.4-10.2) mg/dL Magnesium 2.7 H (1.6-2.3) mg/dL AST 62 H (17-59) U/L ALT 213 H (4-49) U/L C-Reactive Protein (<1.0) mg/dL Total Protein 5.4 L (6.3-8.2) g/dL Albumin 3.3 L (3.5-5.0) g/dL Urine Blood (Negative) Uric Acid Crystals (None) /hpf Hyaline Casts (0-2) /lpf 04/29/22 04/29/22 Range/Units 06:12 09:22 WBC (3.8-10.6) k/uL RBC (4.30-5.90) m/uL Hgb (13.0-17.5) gm/dL Hct (39.0-53.0) % MCV (80.0-100.0) fL MCHC (31.0-37.0) g/dL RDW (11.5-15.5) % Neutrophils # (1.3-7.7) k/uL Lymphocytes # (1.0-4.8) k/uL Monocytes # (0-1.0) k/uL Sodium (137-145) mmol/L Chloride (98-107) mmol/L BUN (9-20) mg/dL Creatinine (0.66-1.25) mg/dL POC Glucose (mg/dL) 119 H (70-110) mg/dL Calcium (8.4-10.2) mg/dL Magnesium (1.6-2.3) mg/dL AST (17-59) U/L ALT (4-49) U/L C-Reactive Protein 5.6 H (<1.0) mg/dL Total Protein (6.3-8.2) g/dL Albumin (3.5-5.0) g/dL Urine Blood (Negative) Uric Acid Crystals (None) /hpf Hyaline Casts (0-2) /lpf
--- NOTE | 2022-04-29 10:58 | CT ---
EXAMINATION TYPE: CT chest wo con DATE OF EXAM: 04/29/2022 COMPARISON: None HISTORY: pleural effusions CT DLP: 708.5 mGycm. Automated Exposure Control for Dose Reduction was Utilized. TECHNIQUE: CT scan of the thorax is performed without IV contrast. FINDINGS: The lungs are clear of consolidative or interstitial density. No suspicious lung masses seen. There is a 2-lead cardiac pacemaker in the heart is moderately to markedly enlarged. There is a moderate to large left pleural effusion and moderate right pleural effusion. Portion of th e right effusion appears loculated along the lateral chest wall. There is no mediastinal, hilar or axillary adenopathy. The osseous structures are intact. Limited scanning the upper abdomen reveals no gross abnormality. IMPRESSION: 1. Moderate partially loculated right pleural effusion. 2. Moderate to large left pleural effusion. 3. Marked cardiomegaly without pulmonary vascular congestion or interstitial edema.
--- NOTE | 2022-04-29 11:24 | P.PN ---
Subjective Progress Note Date: 04/29/22 On 04/23/2022, the patient is postop day #4. The patient underwent mitral valve repair and 3 vessel bypass surgery and closure of a PFO. The patient is sitting up on a chair and he seems to be calm and comfortable. His chest x-ray showing postsurgical changes/post thoracotomy changes and small effusions nonprotective changes in the lung base bilaterally. Otherwise, the patient is awake and alert and following commands. He is currently on 3 L of O2 nasal cannula with a pulse ox of 95%. His cardiac rhythm is sinus for now. Pain is under adequate control. Noted the patient has history of diabetes mellitus, chronic stage II kidney disease hyperlipidemia, the patient has had multiple orthopedic surgeries and the patient has also paroxysmal atrial fibrillation. The patient multivessel coronary artery disease as discussed earlier in the patient underwent cardiac bypass surgery. Blood work from today shows a hemoglobin 7.5 with a white cell count of 8.2 and a platelet count of 111. Sodium is at 135, potassium is at 6 with a BUN of 67 and a creatinine of 3.4 and a potassium is up to 6.0. The patient did have a shock liver situation where the ALT went up to 1512 and AST was up to 3595. Bilirubin remained of 0.9. The patient is currently on no pressors. The patient's chest tubes have been removed. In terms of blood products, he received 3 units of PRBC, 1 unit of platelets and 2 units of fresh frozen plasma postop. Currently is on Lasix drip which is running at 5 mg an hour. He was treated for his high potassium and he was given a dose of lokalma On today's evaluation of 04/24/2022, the patient is postop day #5. The patient is doing well and he has no specific complaints. He continues to diurese and the patient is currently on Lasix 3 mg an hour. The patient is currently on 4 L of O2 nasal cannula. The patient underwent mitral valve repair and 3 vessel bypass surgery and closure of a PFO. He is comfortable. Is using the incentive spirometer. Surgical one-sided dry clean and intact. The patient is currently on no pressors. At the same time, the patient was having an issue with an acute kidney injury and the creatinine is stable for now. The BUN is at 27 with a creatinine of 2.97 which is improved compared to yesterday. The patient has a white cell count of 9.2 with a hemoglobin of 7.1 and a platelet count of 122. Sodium is at 133, potassium level is at 5.1, improved compared to yesterday, the patient did have also a shock liver which is improving, AST is down to 1270 and ALTs on to 1038. Glucose at 1:30. Normal electrolytes. Alert and awake. Following commands and answering questions. No other significant events. Remains on Levemir insulin 20 units along with a sliding scale coverage. On 04/25/2022, the patient remains extubated on 3 L of oxygen by nasal cannula. Doing well. No specific complaints. He continues to diurese well. He has been improvement in renal function. The patient is on Lasix drip at 3 mg an hour and the patient's BUN is at 85 with a creatinine of 2.12. Sodium levels is 131. The WBC count is at 12.4 with a hemoglobin of 7.2 and a platelet count of 211. Liver functions is also improving as the patient is shock liver and LFTs are improving. The patient has no specific complaints. The chest x-ray from today showed cardiomegaly and pulmonary vessel congestion and bilateral pleural effusions. The patient is essentially postop day #6 On 04/26/2022, the patient is postop day #7, the patient remains on 3 L of oxygen by nasal cannula. Repeat chest x-ray was done today and the patient shows improvement in volume status although it is not completely. The patient continues to have some residual effusion in the lung bases. Meanwhile, LFTs are improving and is consistent with shock liver disease improving. AST is down to 266 with an LDL 477 and bilirubin of 1.2. The patient also has a improvement in renal function and the BUN is down to 83 with a creatinine of 1.54. Sodium is at 133, potassium is at 4.6, bicarb is 24 with a chloride of 99. The white cell cause of 9.1 with a hemoglobin of 7.4. Cardiac rhythm is sinus. No chest tube. The patient using incentive spirometer and falling approximately 1000. The patient remains on Lasix 40 mg IV every 12 hours. Ultram for pain control. The patient on a combination of aspirin and Plavix. The patient is also on metoprolol 12.5 mg by mouth twice a day. On 04/27/2022 the patient is postop day #8. The patient is currently on oxygen at 3 L. There was concern of pleural effusion. Based on that, ultrasound of the chest was done. Based on review of the ultrasound, there is no sizable effusion on the left. There is trace right-sided pleural effusion. As such, there is no need for thoracentesis at this point in time. This was discussed with the surgical team. The patient is still being diuresed with IV Lasix. We'll function continues to improve and the creatinine is down to 1.35. The liver function tests also continued to improve as the patient a component of shock liver which is improving. Hemoglobin stable at 7.3. The WBC count is at 10.5. Cardiac rhythm is A. fib fibrillation as the patient went into atrial fibrillation at around midnight. The patient was started on oral amiodarone 200 mg twice a day. No loading was given. The rate is controlled for now. No anticoagulants have been utilized.. Using incentive spirometer. Following approximately 1000 on his incentive spirometer. At the same time, the patient is on a combination of aspirin and Plavix. The patient is also on metoprolol dose of 25 mg by mouth twice a day. He is on amiodarone 200 mg by mouth daily as the patient went into amiodarone and he was started on amiodarone 04/28/2022, the patient's postop day #9. Currently is on oxygen at 1 L per minute nasal cannula. Chest x-ray is still unchanged and the patient is small bilateral pleural effusion and atelectatic change in the lung bases bilaterally. He is in sinus rhythm. He converted from H of fibrillation back into sinus. He is still on amiodarone. He is using incentive spirometer. His falling approximately 1000. He is weak. We were able to get him up and ambulate for short distances. He does have a stage II ulcer on his coccyx. He is still on Lasix and he is currently on 40 mg IV push every 12 hours. He is in a negative fluid balance. Urine output is adequate for now. Hemoglobin is at 7.1. There was some elevation in his white cell count was up to 15. As mentioned, all of the chest tubes arousals. His UA was negative. LFTs are improving. His BUN is at 71 with a creatinine of 1.5 and a sodium level is at 134. No other significant events otherwise for now. His blood sugars under adequate control. His sternum is stable clean and intact. We felt that on off is getting confused. For the most part and during my evaluation he seemed to be appropriate however he does have global generalized weakness. On 04/29/2022 the patient is postop day #9. In view of his ongoing shortness of breath and concern for pneumonia, CAT scan of the chest was done. I reviewed the CAT scan, I see a small left-sided pleural effusion along with left basilar atelectasis. There is no airspace disease of consolidation. There is no evidence of any pneumonia. The basic count of 18.5 with a hemoglobin of 7.6. Sodium is at 129. The patient continues to be reason he was placed on Bumex 2 mg every 12 hours. Urine output is low at this point in time. Creatinine is up to 1.98 with a BUN of 81. The patient is currently on oxygen at 3 L. His current pulse ox is 95%. Is using the incentive spirometer. He was not given antibiotics. Cardiac rhythm is sinus. He remains on amiodarone 200 mg twice a day. Is also on metoprolol 25 mg by mouth twice a day. He remains on a combination of aspirin and Plavix. He is on Levemir 8 units. He is ambulating. He states that he is still short of breath. Objective - Vital Signs Vital signs: Vital Signs Temp 98.5 F 04/29/22 04:00 Pulse 96 04/29/22 07:58 Resp 24 04/29/22 07:00 BP 111/56 04/29/22 07:00 Pulse Ox 94 L 04/29/22 07:00 FiO2 100 04/22/22 16:00 Intake & Output 04/28/22 04/29/22 04/29/22 18:59 06:59 18:59 Intake Total 880 1080 Output Total 497 1332 Balance 383 -252 Weight 103.1 kg Intake: Intake, IV Titration 50 Amount Albumin Human 25% 50 ml 50 In Empty Bag 1 bag @ 50 mls/hr IVPB ONCE ONE Rx#: [id number] Oral 830 1080 Output: Urine 450 925 Post Void Residual 47 407 Other: Voiding Method Urinal # Voids 1 ABP, PAP, CO, CI - Last Documented Arterial Blood Pressure 137/47 Pulmonary Artery Pressure 67/18 Cardiac Output 5.8 Cardiac Index 2.8 - Exam CONSTITUTIONAL: Sitting up to the bedside chair in the intensive care unit, appears comfortable, cooperative, no apparent acute distress. HEENT: Neck is supple, no JVD, no lymphadenopathy. RESPIRATORY: Lungs sounds essentially clear throughout, few scattered crackles to his bilateral bases. Diminished to his right lower lobe. Respirations are symmetrical and nonlabored. Currently on 1 L nasal cannula with oxygen saturations 95%. Able to achieve 1250 mL on incentive spirometry. Strong cough. CARDIOVASCULAR: Irregular rhythm and controlled rate. S1 and S2 present, negative for S3, gallop or murmur. Sternum is stable. Palpable peripheral pulses bilaterally, +1 edema to his bilateral lower extremities. No calf pain or tenderness noted. Heart hugger in place with patient demonstrating appropriate use. Knee-high RAFAEL hose and sequential compression devices in place to his bilateral lower extremities. Bedside telemetry showing atrial fibrillation heart rate 79 BPM. GASTROINTESTINAL: Abdomen soft, nontender, nondistended. Active bowel sounds present 4 quadrants. Tolerating diet. Passing flatus. No guarding or rigidity. Bowel movement yesterday 04/27/2022. GENITOURINARY: Continues to void. Urine output 525 mL in the last 8 hours. INTEGUMENTARY: Skin is warm and dry with no evidence of clubbing or cyanosis. Midline sternal incision clean dry and well approximated, covered with dry intact dressing. Bilateral lower extremity EVH sites well approximated without redness or drainage. Erythema to his buttocks, dressing clean, dry and intact. NEUROLOGIC: Cranial nerves II through XII intact. No focal deficits. MUSKULOSKELETAL: Able to move all extremities, strength equal bilaterally, generalized weakness. PSYCHIATRIC: Alert and oriented to person place and time, appropriate affect, intact judgment and insight. INVASIVE LINES AND TUBES: Atrial and ventricular epicardial pacemaker wires in place and grounded. - Labs CBC & Chem 7: 04/29/22 03:54 04/29/22 03:54 Labs: Abnormal Lab Results - Last 24 Hours (Table) 04/28/22 04/28/22 04/28/22 Range/Units 11:46 16:21 19:52 WBC (3.8-10.6) k/uL RBC (4.30-5.90) m/uL Hgb (13.0-17.5) gm/dL Hct (39.0-53.0) % MCV (80.0-100.0) fL MCHC (31.0-37.0) g/dL RDW (11.5-15.5) % Neutrophils # (1.3-7.7) k/uL Lymphocytes # (1.0-4.8) k/uL Monocytes # (0-1.0) k/uL Sodium (137-145) mmol/L Chloride (98-107) mmol/L BUN (9-20) mg/dL Creatinine (0.66-1.25) mg/dL POC Glucose (mg/dL) 147 H 205 H 211 H (70-110) mg/dL Calcium (8.4-10.2) mg/dL Magnesium (1.6-2.3) mg/dL AST (17-59) U/L ALT (4-49) U/L C-Reactive Protein (<1.0) mg/dL Total Protein (6.3-8.2) g/dL Albumin (3.5-5.0) g/dL 04/29/22 04/29/22 04/29/22 Range/Units 03:54 03:54 06:12 WBC 18.5 H (3.8-10.6) k/uL RBC 2.47 L (4.30-5.90) m/uL Hgb 7.6 L (13.0-17.5) gm/dL Hct 24.8 L (39.0-53.0) % MCV 100.4 H (80.0-100.0) fL MCHC 30.5 L (31.0-37.0) g/dL RDW 15.7 H (11.5-15.5) % Neutrophils # 15.1 H (1.3-7.7) k/uL Lymphocytes # 0.8 L (1.0-4.8) k/uL Monocytes # 1.8 H (0-1.0) k/uL Sodium 129 L (137-145) mmol/L Chloride 94 L (98-107) mmol/L BUN 81 H (9-20) mg/dL Creatinine 1.98 H (0.66-1.25) mg/dL POC Glucose (mg/dL) 119 H (70-110) mg/dL Calcium 8.0 L (8.4-10.2) mg/dL Magnesium 2.7 H (1.6-2.3) mg/dL AST 62 H (17-59) U/L ALT 213 H (4-49) U/L C-Reactive Protein (<1.0) mg/dL Total Protein 5.4 L (6.3-8.2) g/dL Albumin 3.3 L (3.5-5.0) g/dL 04/29/22 Range/Units 09:22 WBC (3.8-10.6) k/uL RBC (4.30-5.90) m/uL Hgb (13.0-17.5) gm/dL Hct (39.0-53.0) % MCV (80.0-100.0) fL MCHC (31.0-37.0) g/dL RDW (11.5-15.5) % Neutrophils # (1.3-7.7) k/uL Lymphocytes # (1.0-4.8) k/uL Monocytes # (0-1.0) k/uL Sodium (137-145) mmol/L Chloride (98-107) mmol/L BUN (9-20) mg/dL Creatinine (0.66-1.25) mg/dL POC Glucose (mg/dL) (70-110) mg/dL Calcium (8.4-10.2) mg/dL Magnesium (1.6-2.3) mg/dL AST (17-59) U/L ALT (4-49) U/L C-Reactive Protein 5.6 H (<1.0) mg/dL Total Protein (6.3-8.2) g/dL Albumin (3.5-5.0) g/dL Assessment and Plan Plan: 1. Severe mitral valve regurgitation, status post mitral valve repair, postoperative day # 10 2. Coronary artery disease, previous PCI, previous non-STEMI, status post CABG 3, postop day #10 3. History of paroxysmal atrial fibrillation, previous cardioversion, on Eliqu outpatient for anticoagulation, status post modified Castanon maze and ligation of left atrial appendage, postop day #10 4. Patent foramen ovale, status post closure, postop day #10 5. Atrial fibrillation, expected outcome of surgery and the patient is back to normal sinus rhythm. The patient is currently on oral amiodarone, and metoprolol. No anticoagulations yet. 6. Chronic systolic congestive heart failure, ischemic cardiomyopathy with EF 40-45% 7. History of hypertension 8. History hyperlipidemia, treated, cholesterol 150, LDL 72 9. Right internal carotid stenosis 50-79% 10. Anemia with history of GI bleed in November 2021 S/P transfusion PRBCs 11. Acute on chronic renal failure, creatinine is at 1.9 12. Diabetes mellitus type 2, preoperative hemoglobin A1c 5.6% currently Levemir insulin 8 units along with a sliding scale coverage 13. Osteoarthritis 14. Severe COPD, preoperative FEV1 41% of predicted 15. Chronic ongoing nicotine dependence 16. Remote history of pneumonia 17. Chronic low back pain, hearing disorder 18. Nasal swab positive for MSSA preoperative 19. Postoperative acute blood loss anemia, expected 20. Elevated transaminases, most likely due to shock liver and the significant elevation of the ALT and AST which are being monitored, and the level is also improving and there is a decline and LFTs 21. Protamine reaction intraoperative 22 decubitus ulcer stage 2 23, small left-sided pleural effusion along with some left basilar atelectasis. Plan: Chest x-ray findings were noted Keep the patient on 3 L O2 nasal cannula I am not saying much of fluid overload in this patient. I reviewed the CAT scan of the chest. The pleural effusion is small and the patient has a left basilar atelectasis.. A bedside thoracentesis will be done only if his condition remains unchanged and/or gets worse. I will suggest even reducing diuretic though that the patient is developing an acute kidney injury. Continue incentive spirometer Monitor LFTs, improving Surgical one-sided dry-cleaning and intact Hemoglobin is stable Continue amiodarone and metoprolol The patient is going to be switched to Levemir insulin 8 units and is lying scattered coverage LFTs are also improving Frequent was positioning and Opteform to the decub ulcers in addition to Zn oxide We'll continue to follow
[2022-04-29 11:26] LABS: Glucose,Whole Blood 132 mg/dL (70-110)
[2022-04-29] MEDS: NON FORMULARY DRUG SQ SCH (13:10)
[2022-04-29 16:19] LABS: Glucose,Whole Blood 214 mg/dL (70-110)
--- NOTE | 2022-04-29 18:09 | P.PN ---
Progress Note - Text Progress Note Date: 04/29/22 Patient is a pleasant 72-year-old male came in the for elective mitral valve repair, CABG x 3 vessel, maze procedure, PFO closure. Patient is extubated sitting in the chair patient still has a [place] catheter, CVP of around 12, cardiac index 3.1 patient creatinine went up to 1.70 resulting elevated potassium of 5.5 patient is off pressor support, off nitro drip patient still has 2 mediastinal and one left-sided chest tube. 04/21/2022 Patient is evaluated in ICU today, sitting up in chair. He is postoperative day #2 for elective mitral valve repair, hematocrit bypass grafting maze procedure and PFO closure. He is on BiPAP with fio2 of 40% Continues with mediastinal/left pleural chest tubes. Continue with indwelling catheter. Received dose of IV albumin yesterday afternoon. Chest xray today showing ongoing mild pulmonary vascular congestion, increasing patchy bibasilar opacities, atelectasis vs. pulmonary edema. Currently on lasix gtt at 10mls/hr, continues on dopamine gtt at 3.68 mls/hr. Continues on insulin gtt and blood glucose remains in the 140 to 130s. Labs today showing sodium 132, potassium 6.1 improved to 5.4, BUN 41, creatinine 2.53, elevated liver enzymes. Hgb 7.3. 04/22/2022 Patient continues to be monitored closely in intensive care unit, he is postoperative day #3 for elective mitral valve repair, maze procedure, PFO closure. Managed by primary team. He had limited echocardiogram completed showing EF 45 to 50%, mild to moderate MR, moderate pulmonary hypertension with moderate TR. Chest xray today shows slight improvement in pulmonary vascular congestion. Maintained on lasix gtt at 10mls/hr, dopamine gtt, Continues with 2 mediastinal chest tubes. Continues with indwelling catheter. Continues with right IJ swan/cordis, right radial arterial line. He has been weaned off BiPAP currently on high flow cannula at 15L. He has been tolerating some diet. Continues on insulin gtt which will continue until his diet stabilizes. Current glucose in the 140s. Creatinine today 3.14. April 23: I assumed care of patient today from [facility]. ICU. In a recliner. Tired. Little oral intake. Nasal cannula. Drips include IV dopamine and Lasix. Some shortness of breath. Mooney catheter. 04/24/2022: ICU. Up. 4 L nasal cannula. Did eat better. Edema present. On the Lasix drip 5 mg an hour. Some improvement in creatinine. 04/25/2022: ICU. Up in a recliner. Eating better. at the bedside. Edema present. Off Lasix drip. Feeling better. Creatinine coming down. LFTs improving. Home dose of Victoza was started 04/26/2022: ICU. Up in a recliner. 4 L nasal cannula. Eating about 50%. Accu-Cheks noted. 04/27/2022: ICU: Patient went into atrial fibrillation overnight. Put on oral amiodarone and Lopressor per CTS.. Some worsening of shortness of breath. Placed on IV Lasix. Eating some. Up in a recliner. 04/28/2022: ICU. Patient received Lopressor today for the A. fib. Patient went down into sinus rhythm. Blood pressure also dropped her was 70 systolic. Oxygen increased to 4 L. Short of breath. Patient did walk 10-12 steps up to the door. Eating fair. Lower extremity edema edema present. Up in a chair. Tired. 04/29/2022: ICU. Short of breath. 3 L nasal cannula. Eating fair. Edema pre sent. Getting Bumex. Getting IV albumin and IV calcium. Using incentive spirometry. Up in a chair. Discussed with at the bedside. Increasing white count, infiltrated urine check stat x-ray suggestive of pneumonia. Started on IV cefepime. On examination: VITAL SIGNS: 97.8, 63, 25, 106.96, 92% on 3 L GENERAL APPEARANCE: Up in a recliner, tired HEENT: Normal external appearance of nose and ear. Oral cavity normal EYES: Pupils equal. Conjunctiva normal. NECK: JVD not raised. Mass not palpable. RESPIRATORY: Respiratory effort increased. Lungs diminished breath sounds. CARDIOVASCULAR: First and second sounds normal. Edema present ABDOMEN: Soft. Liver and spleen not palpable. No tenderness. No mass palpable. Mooney catheter PSYCHIATRY: AO 3, mood and affect normal INVESTIGATIONS, reviewed in the clinical context: CT chest [April 29]: Moderate partial obliterate right pleural effusion, left pleural effusion, cardiomegaly. , 04/29/2022: WBC 18.5 hemoglobin 7.6 platelets 272 potassium 4.9 creatinine 1.98 CRP 5.6 procalcitonin 0.7 to, AST 62, ALT 213 04/28/2022: WBC 15 hemoglobin 7.1 potassium 4.7 BUN 71 creatinine 1.50 AST 90 AST 285 04/27/2022: WBC 10.5 hemoglobin 7.3 platelets 167 potassium 4.1 BUN 75 creatinine 1.35 AST was 67 ALT 378 04/26/2022: WBC 9.1 hemoglobin 7.4 platelets 101 potassium 4.6 BUN 83 creatinine 1.5 for AST 266 ALT 477 04/25/2022: WBC 12.4 hemoglobin 7.2 potassium 4.5 BUN 85 creatinine 2.12 AST 503 ALT 619 04/24/2022: WBC 9.2 hemoglobin 7.1 platelets 122 potassium 5.1 BUN 77 creatinine 2.97 AST 1270 ALT 1038 WBC 8.2 hemoglobin 7.5 platelets 111 sodium 135 progression 6 BUN 67 creatinine 3.43 AST 3595 ALT 1512 Limited 2-D echocardiogram: EF 45-50%. Inferior wall hypokinesis. Moderate MR. Moderate pulmonary hypertension with moderate TR. Assessment and plan -Acute on chronic congestive heart exacerbation from systolic/diastolic dysfunction EF 45-50%:, precipitated by worsening A. fib IV Bumex 2 mg every 12 -Suspect pneumonia, patient short of breath, infiltrate on chest x-ray, increasing white count and procalcitonin IV cefepime -Acute hypoxic respiratory failure from pulmonary edema: Slow to respond 3 L nasal cannula -Diabetes Mellitus type 2 with hyperglycemia, Victoza , Actos. Levemir 8 units daily at bedtime -Paroxysmal atrial fibrillation status post modified Castanon-Maze procedure,: With rapid ventricular rate: Now back into sinus rhythm amiodarone ,Lopressor. -acute renal failure on chronic kidney disease stage II with renal failure is probably prerenal azotemia, cardiorenal syndrome.: Worsening Creatinine peaked at 3.43. Creatinine going up to 1.98 -hyperkalemia secondary to acute renal failure: Corrected Received Lokelma. Renal diet -Acute hepatitis, likely ischemic: Improving Follow closely. GI services not available in the hospital. Hold any hepatic offensive medications. Follow LFTs patient started back on amiodarone -COPD without any acute exacerbation DuoNeb -Hyperlipidemia Hold statins, because of elevated LFTs - coronary artery disease with previous PCI Aspirin, Lasix, Imdur, Lopressor currently on hold -Acute postprocedure blood loss anemia as expected from surgery Patient receive 2 units of PRBC, follow CBC -Chronic nicotine dependence -Severe MR status post mitral valve failure, status post CABG, status post PFO Patel -Moderate secondary probably hypertension 3 L nasal cannula. Started on IV cefepime for pneumonia. Also getting IV albumin and IV calcium. We need to cut back on IV Bumex. Follow with consultants. Discussed with patient and
[2022-04-29] MEDS: CEFEPIME 2 GM in SODIUM CHLORIDE 0.9% 100 ML IVPB SCH (19:58)
[2022-04-29] MEDS: SENNOSIDES-DOCUSATE SODIUM 1 EACH TAB PO SCH (19:59)
[2022-04-29 21:01] LABS: Glucose,Whole Blood 281 mg/dL (70-110)
[2022-04-29] MEDS: INSULIN DETEMIR (LEVEMIR) 100 UNIT/ML SYR SQ SCH (21:05)
[2022-04-30] MEDS: BUMETANIDE 0.25 MG/ML 10 ML VIAL IV SCH ×2 (02:08→15:00)
[2022-04-30] MEDS: ACETAMINOPHEN TAB 325 MG TAB PO PRN ×3 (02:08→18:22)
[2022-04-30 04:48] LABS: Basophils # (A) 0.1 k/uL (0-0.2); Basophils % (A) 1 %; Eosinophils # (A) 0.2 k/uL (0-0.7); Eosinophils % (A) 1 %; HCT 23.1 % (39.0-53.0); HGB 7.1 gm/dL (13.0-17.5); Hypochromasia Marked; Lymphocytes # (A) 0.6 k/uL (1.0-4.8); Lymphocytes % (A) 4 %; MCH 30.3 pg (25.0-35.0); MCHC 30.6 g/dL (31.0-37.0); MCV 98.8 fL (80.0-100.0); Macrocytosis Slight; Mean Platelet Volume 8.7; Monocytes # (A) 1.4 k/uL (0-1.0); Monocytes % (A) 8 %; Neutrophils % (A) 84 %; Platelet Count 270 k/uL (150-450); Poikilocytosis Slight; RBC 2.34 m/uL (4.30-5.90); RDW 15.4 % (11.5-15.5); WBC 17.8 k/uL (3.8-10.6)
[2022-04-30 05:01] LABS: Albumin 3.4 g/dL (3.5-5.0); Calcium 8.2 mg/dL (8.4-10.2); Magnesium 2.5 mg/dL (1.6-2.3); Potassium 4.6 mmol/L (3.5-5.1); Total Bilirubin 1.1 mg/dL (0.2-1.3); Total Protein 5.5 g/dL (6.3-8.2)
[2022-04-30 06:53] LABS: Glucose,Whole Blood 142 mg/dL (70-110)
[2022-04-30] MEDS: INSULIN ASPART (NovoLOG) 100 UNIT/ML VIAL SQ SCH ×4 (06:53→22:03)
--- NOTE | 2022-04-30 08:07 | XR ---
EXAMINATION TYPE: XR chest 1V portable DATE OF EXAM: 04/30/2022 COMPARISON: 04/29/2022 INDICATION: Postop cardiac surgery TECHNIQUE: Single frontal view of the chest is obtained. FINDINGS: The heart size is enlarged. The pulmonary vasculature is upper limits of normal. There is a small right pleural effusion. Small left pleural effusion is present. These have improved over the interval. Sternotomy wires are present from prior cardiac valve surgery. IMPRESSION: 1. Improving small bilateral pleural effusions.
[2022-04-30] MEDS: IPRATROPIUM-ALBUTEROL 3 ML NEB INHALATION SCH ×4 (08:17→19:42)
[2022-04-30] MEDS: SYMBICORT 160-4.5 MCG INHALER INHALATION SCH ×2 (08:17→19:42)
[2022-04-30] MEDS: HEPARIN SODIUM,PORCINE/PF 5,000 UNIT/0.5 ML SYRINGE SQ SCH ×3 (08:50→22:54)
[2022-04-30] MEDS: NON FORMULARY DRUG SQ SCH (08:51)
[2022-04-30] MEDS: CLOPIDOGREL 75 MG TAB PO SCH (08:52)
[2022-04-30] MEDS: AMIODARONE 200 MG TAB PO SCH ×2 (08:52→20:03)
[2022-04-30] MEDS: CEFEPIME 2 GM in SODIUM CHLORIDE 0.9% 100 ML IVPB SCH ×2 (08:52→22:02)
[2022-04-30] MEDS: ASPIRIN 325 MG TAB PO SCH (08:52)
[2022-04-30] MEDS: METOPROLOL TARTRATE 25 MG TAB PO SCH ×2 (08:52→20:03)
[2022-04-30] MEDS: ASCORBIC ACID 500 MG TAB PO SCH (08:52)
[2022-04-30] MEDS: PIOGLITAZONE 15 MG TAB PO SCH (08:52)
[2022-04-30] MEDS: TAMSULOSIN 0.4 MG CAP.ER.24H PO SCH (08:55)
[2022-04-30] MEDS: ISOSORBIDE MONONITRATE ER 15 MG TAB PO SCH (08:55)
[2022-04-30] MEDS ORDERED: metOLazone 5 MG TAB PO SCH (09:00)
--- NOTE | 2022-04-30 09:01 | P.PN ---
Subjective Progress Note Date: 04/30/22 Principal diagnosis: Severe mitral valve regurgitation, coronary artery disease, paroxysmal atrial fibrillation, patent foramen ovale, tricuspid regurgitation, chronic systolic congestive heart failure. Past medical history significant for hypertension, hyperlipidemia, coronary artery disease with history of previous PCI, non-ST elevated myocardial infarction in November 2021, ischemic cardiomyopathy with EF 40- 45%, right internal carotid stenosis 50-79%, renal insufficiency, anemia with history of GI bleed in November 2021 S/P transfusion PRBCs, diabetes mellitus type 2, osteoarthritis, severe COPD, chronic ongoing nicotine dependence, remote history of pneumonia, chronic low back pain and hearing disorder. Nasal swab positive for MSSA preoperative. POD #11 Mitral valve repair with 28 mm physio-2 ring, CABG 3 with saphenous vein grafts to first diagonal, obtuse marginal, posterior descending coronary arteries, closure of PFO, endovascular vein harvest, modified Castanon maze procedure with full left-sided lesion set and ligation of the left atrial appendage, SCOTT by anesthesia. Protamine reaction intraoperative Postoperative acute blood loss anemia, expected given his history of anemia, hemodilution and cardiopulmonary bypass. Acute on chronic kidney failure, likely from hypotension from intraoperative protamine reaction. Elevated transaminases, likely from hypotension from intraoperative protamine reaction. The patient was seen and examined in follow-up today 04/30/2022 at his bedside in the intensive care unit. Currently he is sitting up to the bedside chair, is awake, alert, oriented 3 and is in no acute apparent distress. He continues to complain of some shortness of breath, and currently is complaining of some shortness of breath with just sitting in the chair which he reports gets worse with ambulating. He is also complaining of some surgical type pain to his sternal incision waiting his pain 3-4 out of 10 on the pain scale. His sternum is stable, his heart hugger is in place with good demonstration of use. No drainage or redness is present to his sternal incision. Oxygen saturation are 98% on 3 L nasal cannula and he is achieving 1000 mL on his incentive spirometry with encouragement. He remains hemodynamically stable and is currently on no inotropic or pressor support. A Mooney catheter was placed yesterday for postvoid residuals of greater than 400 mL of urine. Urine output was 980 mL in the last 8 hours. Dressing is clean, dry and in place to his stage II decubitus ulcer to his buttocks. He is been afebrile the last 24 hours. Laboratory results this morning show a WBC count of 17.8, hemoglobin 7.1, hematocrit 23.1, platelets 270, sodium 131, potassium 4.6, chloride 94, CO2 28, BUN 84, creatinine 1.83, leukocyte 94, calcium 8.2, magnesium 2.5, and his liver enzymes continue to trend down with his AST 44 and ALT 162 this morning. Blood cultures, and sputum cultures were sent yesterday due to his elevated WBC count yesterday and he was empirically started on cefepime 2 g IV piggyback every every 12 hours by pulmonary critical care medicine. Chest x-ray was reviewed this morning. Atrial and ventricular epicardial pacemaker wires remain in place and grounded. Bedside telemetry showing normal sinus rhythm heart rate 70 bpm. No further reports of atrial fibrillation. A computed tomography scan of his chest was completed yesterday without contrast which demonstrated a moderate partially loculated right pleural effusion, moderate to large left pleural effusion and marked cardiomegaly without vascular congestion or interstitial edema. He continues on Bumex 2 mg IV every 12 hours, metoprolol tartrate 25 mg by mouth twice a day and amiodarone 200 mg by mouth twice a day. Objective - Vital Signs Vital signs: Vital Signs Temp 98.6 F 04/30/22 04:00 Pulse 92 04/30/22 08:28 Resp 26 H 04/30/22 07:00 BP 135/70 04/30/22 07:00 Pulse Ox 97 04/30/22 08:18 FiO2 100 04/22/22 16:00 Intake & Output 04/29/22 04/30/22 04/30/22 18:59 06:59 18:59 Intake Total 1400 350 Output Total 910 1510 130 Balance 490 -1160 -130 Weight 103 kg Intake: Intake, IV Titration 100 Amount Cefepime 2 gm In Sodium 100 Chloride 0.9% 100 ml @ 25 mls/hr IVPB Q12HR [facility] Rx #:[id number] Oral 1400 250 Output: Urine 910 1510 130 Other: Voiding Method Indwelling Catheter Indwelling Catheter ABP, PAP, CO, CI - Last Documented Arterial Blood Pressure 137/47 Pulmonary Artery Pressure 67/18 Cardiac Output 5.8 Cardiac Index 2.8 - Exam CONSTITUTIONAL: Sitting up to the bedside chair in the intensive care unit, appears comfortable, cooperative, no apparent acute distress. HEENT: Neck is supple, no JVD, no lymphadenopathy. RESPIRATORY: Lungs sounds essentially clear throughout, diminished to his bilateral bases. Respirations are symmetrical and nonlabored. Currently on 3 L nasal cannula with oxygen saturations 98%. Able to achieve 1000 mL on incentive spirometry. Strong cough. CARDIOVASCULAR: Regular rhythm and rate. S1 and S2 present, negative for S3, gallop or murmur. Sternum is stable. Palpable peripheral pulses bilaterally, +1 to +2 edema to his bilateral lower extremities. No calf pain or tenderness noted. Heart hugger in place with patient demonstrating appropriate use. Knee- high RAFAEL hose and sequential compression devices in place to his bilateral lower extremities. Bedside telemetry showing normal sinus rhythm heart rate 70 BPM. GASTROINTESTINAL: Abdomen soft, nontender, nondistended. Active bowel sounds present 4 quadrants. Tolerating diet. Passing flatus. No guarding or rigidity. Bowel movement on 04/27/2022. GENITOURINARY: Mooney catheter in place for accurate I's and O's. Urine output 980 mL in the last 8 hours. INTEGUMENTARY: Skin is warm and dry with no evidence of clubbing or cyanosis. Midline sternal incision clean dry and well approximated, covered with dry intact dressing. Bilateral lower extremity EVH sites well approximated without redness or drainage. Erythema to his buttocks, optifoam dressing clean, dry and intact. MUSKULOSKELETAL: Able to move all extremities, strength equal bilaterally, generalized weakness. PSYCHIATRIC: Alert and oriented to person place and time, appropriate affect, intact judgment and insight. INVASIVE LINES AND TUBES: Atrial and ventricular epicardial pacemaker wires in place and grounded. - Allied health notes Allied health notes reviewed: nursing - Labs CBC & Chem 7: 04/30/22 04:26 04/30/22 04:26 Labs: Abnormal Lab Results - Last 24 Hours (Table) 04/29/22 04/29/22 04/29/22 Range/Units 09:22 09:22 11:24 WBC (3.8-10.6) k/uL RBC (4.30-5.90) m/uL Hgb (13.0-17.5) gm/dL Hct (39.0-53.0) % MCHC (31.0-37.0) g/dL Neutrophils # (1.3-7.7) k/uL Lymphocytes # (1.0-4.8) k/uL Monocytes # (0-1.0) k/uL Sodium (137-145) mmol/L Chloride (98-107) mmol/L BUN (9-20) mg/dL Creatinine (0.66-1.25) mg/dL POC Glucose (mg/dL) 132 H (70-110) mg/dL Calcium (8.4-10.2) mg/dL Magnesium (1.6-2.3) mg/dL ALT (4-49) U/L C-Reactive Protein 5.6 H (<1.0) mg/dL Total Protein (6.3-8.2) g/dL Albumin (3.5-5.0) g/dL Procalcitonin 0.72 H (0.02-0.09) ng/mL 04/29/22 04/29/22 04/30/22 Range/Units 16:18 20:59 04:26 WBC 17.8 H (3.8-10.6) k/uL RBC 2.34 L (4.30-5.90) m/uL Hgb 7.1 L (13.0-17.5) gm/dL Hct 23.1 L (39.0-53.0) % MCHC 30.6 L (31.0-37.0) g/dL Neutrophils # 15.0 H (1.3-7.7) k/uL Lymphocytes # 0.6 L (1.0-4.8) k/uL Monocytes # 1.4 H (0-1.0) k/uL Sodium (137-145) mmol/L Chloride (98-107) mmol/L BUN (9-20) mg/dL Creatinine (0.66-1.25) mg/dL POC Glucose (mg/dL) 214 H 281 H (70-110) mg/dL Calcium (8.4-10.2) mg/dL Magnesium (1.6-2.3) mg/dL ALT (4-49) U/L C-Reactive Protein (<1.0) mg/dL Total Protein (6.3-8.2) g/dL Albumin (3.5-5.0) g/dL Procalcitonin (0.02-0.09) ng/mL 04/30/22 04/30/22 Range/Units 04:26 06:52 WBC (3.8-10.6) k/uL RBC (4.30-5.90) m/uL Hgb (13.0-17.5) gm/dL Hct (39.0-53.0) % MCHC (31.0-37.0) g/dL Neutrophils # (1.3-7.7) k/uL Lymphocytes # (1.0-4.8) k/uL Monocytes # (0-1.0) k/uL Sodium 131 L (137-145) mmol/L Chloride 94 L (98-107) mmol/L BUN 84 H (9-20) mg/dL Creatinine 1.83 H (0.66-1.25) mg/dL POC Glucose (mg/dL) 142 H (70-110) mg/dL Calcium 8.2 L (8.4-10.2) mg/dL Magnesium 2.5 H (1.6-2.3) mg/dL ALT 162 H (4-49) U/L C-Reactive Protein (<1.0) mg/dL Total Protein 5.5 L (6.3-8.2) g/dL Albumin 3.4 L (3.5-5.0) g/dL Procalcitonin (0.02-0.09) ng/mL - Imaging and Cardiology Chest x-ray: report reviewed, image reviewed Assessment and Plan Assessment: 1. Severe mitral valve regurgitation, status post mitral valve repair 2. Coronary artery disease, previous PCI, previous non-STEMI, status post CABG 3 3. History of paroxysmal atrial fibrillation, previous cardioversion, on [facility] outpatient for anticoagulation, status post modified Castanon maze and ligation of left atrial appendage, currently in normal sinus rhythm 4. Patent foramen ovale, status post closure 5. Tricuspid regurgitation 6. Chronic diastolic congestive heart failure, ischemic cardiomyopathy with EF 40-45% 7. History of hypertension 8. History hyperlipidemia, treated, cholesterol 150, LDL 72 9. Right internal carotid stenosis 50-79% 10. Anemia with history of GI bleed in November 2021 S/P transfusion PRBCs 11. Acute on chronic renal failure, baseline creatinine 1.2-1.6 12. Diabetes mellitus type 2, preoperative hemoglobin A1c 5.6% 13. Osteoarthritis 14. Severe COPD, preoperative FEV1 41% of predicted 15. Chronic ongoing nicotine dependence 16. Remote history of pneumonia 17. Chronic low back pain 18. Hearing disorder 19. Nasal swab positive for MSSA preoperative 20. Postoperative acute blood loss anemia, expected 21. Elevated transaminases, continue to trend downward, AST 44 and ALT 162 today 22. Protamine reaction intraoperative 23. Medical debility, generalized weakness 24. Stage II decubitus to his buttocks 25. Small left-sided pleural effusion Plan: 1. Continue aspirin, Plavix, beta siomara, and low dose Imdur. We will increase his metoprolol tartrate as tolerated with hold parameters. 2. We will restart his Lipitor 40 mg by mouth daily as his liver enzymes continue to trend down. 3. Continue Amiodarone 200 mg by mouth twice a day for atrial fibrillation prophylaxis. No anticoagulation until after his epicardial pacemaker wires have been removed, likely will discharge on Eliquis. 4. Continue Bumex 2 mg IV every 12 hours. Zaroxolyn 5 mg by mouth 1 now. 5. Wean O2 as tolerated. Encourage incentive spirometry 10 times every hour while awake. Bronchodilators per pulmonology/critical care management. 6. Increase activity, ambulate as tolerated. PT/OT/cardiac rehab following. Needs much encouragement with ambulation. 7. Will monitor daily labs and chest x-rays. Electronic replacement per protocol. Avoid hepatotoxic and nephrotoxic medications. 8. GI/DVT prophylaxis. 9. Insulin management per primary care service. Patient is a diabetic with a preoperative hemoglobin A1c of 5.6% on multiple oral medications, needs tight blood sugar control. 10. Pain control with current medication regimen. 11. Continue Mooney catheter for urinary retention and strict accurate I's and O's. Continue Flomax 0.4 mg by mouth daily. Urinalysis was negative. 12. Daily weights. 13. Shower daily. 14. Importance of risk modification including smoking cessation counseling and education provided to patient and family. 15. Continue to monitor blood culture and sputum culture results. Continue cefepime 2 g every 12 hours for empiric and about coverage. 16. Keep atrial and ventricular epicardial pacemaker wires in place. 17. Limited 2-D echocardiogram results remain pending. 18. More recommendations to follow based on patient's clinical course. Time with Patient: Greater than 30
--- NOTE | 2022-04-30 10:07 | P.GSCN ---
History of Present Illness Consult date: 04/30/22 Reason for Consult: Urinary retention Requesting physician: Herve Retana History of present illness: The patient is a 72-year-old male patient with a past medical history of coronary artery disease, severe mitral regurgitation, moderate tricuspid regurgitation, and a PFO, diabetes mellitus, hyperlipidemia, chronic tobacco dependence, and paroxysmal atrial fibrillation. The patient is now POD# 11 from an elective CABG x 3, MVR, MAZE procedure, and PFO closure with Dr. Raines. urology is consulted for urinary retention. Patient had his Mccain catheter removed on 04/27, his postvoid residual was greater than 400 mL and subsequently mccain was placed. He indicated he was able to void small amount urine, but was straining to void with a weak stream. Denies any dysuria or gross hematuria. At baseline denies any voiding dysfunction, indicates he empties his bladder completely. No previous history of urinary retention. No previous bladder or prostate surgeries. Review of Systems CONSTITUTIONAL: No fever, no malaise, no fatigue. HEENT: No recent visual problems. Reports hard of hearing CARDIOVASCULAR: Minimal steranal discomfort. PULMONARY: Reports shortness of breath. GASTROINTESTINAL: No diarrhea, no nausea, no vomiting. Reports constipation GENITOURINARY: Reports burning with urination. No frequency, or urgency. Past Medical History Past Medical History: Atrial Fibrillation, Blood Disorder, COPD, Diabetes Mellitus, GI Bleed, Hearing Disorder / Deafness, Hyperlipidemia, Hypertension, Myocardial Infarction ([place]), Pneumonia Additional Past Medical History / Comment(s): Anemia, had GI Bleed 11/22, had 4 units of blood. Bilateral lower extremity edema. Hx [place] X2. Insomnia. Hx Pneumonia. Chronic back pain. Last Myocardial Infarction Date:: 11/2021 History of Any Multi-Drug Resistant Organisms: None Reported Past Surgical History: Back Surgery, Heart Catheterization With Stent, Joint Replacement, Orthopedic Surgery Additional Past Surgical History / Comment(s): BILATERAL KNEE REPLACEMENTS, BILATERAL SHOULDER SURGERY, ONE CARDIAC STENT, back surgery X2 (lumbar decompression and fusion), BACK INJECTIONS, COLONOSCOPY, BILATERAL CATARACTS REMOVED WITH LENS IMPLANTS, Cardioversion. Past Anesthesia/Blood Transfusion Reactions: No Reported Reaction Date of Last Stent Placement:: 2000 Smoking Status: Current some day smoker - Past Family History Father Family Medical History: No Reported History Mother Family Medical History: No Reported History Medications and Allergies Home Medications Medication Instructions Recorded Confirmed Type Atorvastatin [Lipitor] 80 mg PO HS 04/26/14 04/12/22 History Ramipril 10 mg PO QAM 04/26/14 04/12/22 History metFORMIN HCL [Glucophage] 500 mg PO BID 04/26/14 04/12/22 History Liraglutide [Victoza 3-Casey] 1.8 mg SQ DAILY 02/19/17 04/12/22 History Metoprolol Tartrate 25 mg PO QAM 02/19/17 04/12/22 History Stool Softener(Unknown Name/Do 2 tab PO DAILY 02/19/17 04/12/22 History Vit C/E/Zn/Coppr/Lutein/Zeaxan 2 cap PO DAILY 02/19/17 04/12/22 History [Preservision Areds 2 Softgel] Acetaminophen [Tylenol Extra 500 - 1,000 mg PO DIRECTED PRN 02/02/20 04/12/22 History Strength] Pioglitazone [Actos] 15 mg PO DAILY 02/02/20 04/19/22 History Apixaban [Eliquis] 5 mg PO BID 11/09/21 04/12/22 History Fluticasone/Umeclidin/Vilanter 1 inhalation INHALATION HS 11/09/21 04/12/22 History [Trelegy Ellipta 100-62.5-25] Fenofibrate 160 mg PO HS 12/22/21 04/12/22 History Ferrous Sulfate [Feosol] 325 mg PO BID 12/22/21 04/12/22 History Furosemide [Lasix] 40 mg PO BID 12/22/21 04/12/22 History Ipratropium-Albuterol Nebulize 3 ml INHALATION QID PRN 12/22/21 04/12/22 History [Duoneb 0.5 mg-3 mg/3 ml Soln] Pantoprazole Sodium [Protonix] 40 mg PO PC-LUNCH 12/22/21 04/12/22 History Repaglinide [Prandin] 0.5 mg PO AC-SUPPER 12/22/21 04/12/22 History Mupirocin [Mupirocin 2%] 1 applic NASAL BID #1 tub 04/14/22 04/19/22 Rx Allergies Allergy/AdvReac Type Severity Reaction Status Date / Time protamine AdvReac Anaphylaxis Verified 04/22/22 07:27 Surgical - Exam Vital Signs Temp Pulse Resp BP Pulse Ox 97.1 F L 95 20 154/90 94 L 04/19/22 06:05 04/19/22 06:05 04/19/22 06:05 04/19/22 06:05 04/19/22 06:05 General: Well developed, well nourished. No acute distress. HEENT: Head is atraumatic, normocephalic. Lungs: Tachypneic. On 3L NC. Abdomen/GI: Soft, mildly distended, + abdominal tenderness. : Mccain catheter draining clear yellow urine Vascular: 1+ peripheral edema Skin: Warm and dry Neurologic: Awake, alert and oriented times 3. CN II-XII grossly intact. No focal deficits. Psychiatric: Appropriate mood and affect. Results - Labs 04/30/22 04:26 04/30/22 04:26 Abnormal Lab Results - Last 24 Hours (Table) 04/29/22 04/29/22 04/29/22 Range/Units 09:22 09:22 11:24 WBC (3.8-10.6) k/uL RBC (4.30-5.90) m/uL Hgb (13.0-17.5) gm/dL Hct (39.0-53.0) % MCHC (31.0-37.0) g/dL Neutrophils # (1.3-7.7) k/uL Lymphocytes # (1.0-4.8) k/uL Monocytes # (0-1.0) k/uL Sodium (137-145) mmol/L Chloride (98-107) mmol/L BUN (9-20) mg/dL Creatinine (0.66-1.25) mg/dL POC Glucose (mg/dL) 132 H (70-110) mg/dL Calcium (8.4-10.2) mg/dL Magnesium (1.6-2.3) mg/dL ALT (4-49) U/L C-Reactive Protein 5.6 H (<1.0) mg/dL Total Protein (6.3-8.2) g/dL Albumin (3.5-5.0) g/dL Procalcitonin 0.72 H (0.02-0.09) ng/mL 04/29/22 04/29/22 04/30/22 Range/Units 16:18 20:59 04:26 WBC 17.8 H (3.8-10.6) k/uL RBC 2.34 L (4.30-5.90) m/uL Hgb 7.1 L (13.0-17.5) gm/dL Hct 23.1 L (39.0-53.0) % MCHC 30.6 L (31.0-37.0) g/dL Neutrophils # 15.0 H (1.3-7.7) k/uL Lymphocytes # 0.6 L (1.0-4.8) k/uL Monocytes # 1.4 H (0-1.0) k/uL Sodium (137-145) mmol/L Chloride (98-107) mmol/L BUN (9-20) mg/dL Creatinine (0.66-1.25) mg/dL POC Glucose (mg/dL) 214 H 281 H (70-110) mg/dL Calcium (8.4-10.2) mg/dL Magnesium (1.6-2.3) mg/dL ALT (4-49) U/L C-Reactive Protein (<1.0) mg/dL Total Protein (6.3-8.2) g/dL Albumin (3.5-5.0) g/dL Procalcitonin (0.02-0.09) ng/mL 04/30/22 04/30/22 Range/Units 04:26 06:52 WBC (3.8-10.6) k/uL RBC (4.30-5.90) m/uL Hgb (13.0-17.5) gm/dL Hct (39.0-53.0) % MCHC (31.0-37.0) g/dL Neutrophils # (1.3-7.7) k/uL Lymphocytes # (1.0-4.8) k/uL Monocytes # (0-1.0) k/uL Sodium 131 L (137-145) mmol/L Chloride 94 L (98-107) mmol/L BUN 84 H (9-20) mg/dL Creatinine 1.83 H (0.66-1.25) mg/dL POC Glucose (mg/dL) 142 H (70-110) mg/dL Calcium 8.2 L (8.4-10.2) mg/dL Magnesium 2.5 H (1.6-2.3) mg/dL ALT 162 H (4-49) U/L C-Reactive Protein (<1.0) mg/dL Total Protein 5.5 L (6.3-8.2) g/dL Albumin 3.4 L (3.5-5.0) g/dL Procalcitonin (0.02-0.09) ng/mL Diabetes panel 04/30/22 Range/Units 04:26 Sodium 131 L (137-145) mmol/L Potassium 4.6 (3.5-5.1) mmol/L Chloride 94 L (98-107) mmol/L Carbon Dioxide 28 (22-30) mmol/L BUN 84 H (9-20) mg/dL Creatinine 1.83 H (0.66-1.25) mg/dL Glucose 94 (74-99) mg/dL Calcium 8.2 L (8.4-10.2) mg/dL AST 44 (17-59) U/L ALT 162 H (4-49) U/L Alkaline Phosphatase 58 (38-126) U/L Total Protein 5.5 L (6.3-8.2) g/dL Albumin 3.4 L (3.5-5.0) g/dL Calcium panel 04/30/22 Range/Units 04:26 Calcium 8.2 L (8.4-10.2) mg/dL Albumin 3.4 L (3.5-5.0) g/dL Pituitary panel 04/30/22 Range/Units 04:26 Sodium 131 L (137-145) mmol/L Potassium 4.6 (3.5-5.1) mmol/L Chloride 94 L (98-107) mmol/L Carbon Dioxide 28 (22-30) mmol/L BUN 84 H (9-20) mg/dL Creatinine 1.83 H (0.66-1.25) mg/dL Glucose 94 (74-99) mg/dL Calcium 8.2 L (8.4-10.2) mg/dL Adrenal panel 04/30/22 Range/Units 04:26 Sodium 131 L (137-145) mmol/L Potassium 4.6 (3.5-5.1) mmol/L Chloride 94 L (98-107) mmol/L Carbon Dioxide 28 (22-30) mmol/L BUN 84 H (9-20) mg/dL Creatinine 1.83 H (0.66-1.25) mg/dL Glucose 94 (74-99) mg/dL Calcium 8.2 L (8.4-10.2) mg/dL Total Bilirubin 1.1 (0.2-1.3) mg/dL AST 44 (17-59) U/L ALT 162 H (4-49) U/L Alkaline Phosphatase 58 (38-126) U/L Total Protein 5.5 L (6.3-8.2) g/dL Albumin 3.4 L (3.5-5.0) g/dL Assessment and Plan Assessment: The patient is seen sitting up in a chair. He appears mildly short of breath. He denies any history of urinary retention. He has had Mccain catheters in the past for surgery and has never had a problem afterward. However, during this admission, it appears his catheter was removed-post operatively on 04/27/22. He was able to void, but experienced some burning with urination and had to strain to empty his bladder fully. PVR was 407 ml and a Mccain was re-inserted. The patient also states he feels constipated. his urinary retention is most likely secondary to his recent surgery, anesthesia, and immobility. Discussed with him also his constipation is contributing to his urinary retention Plan: - Continue Flomax - Continue Senokot-s and Ducolax, as his constipation is contributing to his urinary retention - Leave Mccain catheter in for one week - Remove Mccain for voiding trial prior to discharge Impression and plan of care have been directed as dictated by the signing physician. Zahida Myrick nurse practitioner acting as scribe for signing physician. Zahida Myrick [facility] Palliative Care/Urology Spectralink [phone] Email: [email or web address] I personally performed and participated in the history, physical, the decision making, I agree with the assessment and plan of [employer]
[2022-04-30] MEDS: bisacodyL 10 MG SUPP RECTAL PRN (10:13)
[2022-04-30] MEDS: ATORVASTATIN 40 MG TAB PO SCH (10:37)
--- NOTE | 2022-04-30 11:48 | P.PN ---
Subjective Progress Note Date: 04/30/22 Principal diagnosis: Postoperative day #11Mitral valve repair with 28 mm physio-2 ring, CABG 3 with saphenous vein grafts to first diagonal, obtuse marginal, posterior descending coronary arteries, closure of PFO, endovascular vein harvest, modified Castanon maze procedure with full left-sided lesion set and ligation of the left atrial appendage, SCOTT by anesthesia. Protamine reaction intraoperative Reevaluated today on 04/30/22, patient is sitting up in a bedside chair, he is awake alert oriented 3, he does complain of shortness of breath, remind you that the patient does have history of severe underlying COPD, FEV1 is normally just over 1 L, 42% of the predicted value. Patient is on bronchodilators for his underlying COPD. Chest x-ray is showing small pleural effusions, not large enough to consider thoracentesis. Remains on diuretics in the form of Bumex. Patient is also on metoprolol 25 twice a day and on amiodarone. Patient does not seem to be in distress, he is on 3 L nasal cannula. WBC count today 17.8 hemoglobin is 7.1, electrolytes are normal BUN is 84 creatinine 1.83, baseline is 1.43. Objective - Vital Signs Vital signs: Vital Signs Temp 97.7 F 04/30/22 08:00 Pulse 60 04/30/22 11:00 Resp 20 04/30/22 11:00 BP 114/57 04/30/22 11:00 Pulse Ox 97 04/30/22 11:00 FiO2 100 04/22/22 16:00 Intake & Output 04/29/22 04/30/22 04/30/22 18:59 06:59 18:59 Intake Total 1400 350 340 Output Total 910 1510 745 Balance 490 1160 -405 Weight 103 kg Intake: Intake, IV Titration 100 100 Amount Cefepime 2 gm In Sodium 100 100 Chloride 0.9% 100 ml @ 25 mls/hr IVPB Q12HR [facility] Rx #:[id number] Oral 1400 250 240 Output: Urine 910 1510 745 Other: Voiding Method Indwelling Catheter Indwelling Catheter Indwelling Catheter ABP, PAP, CO, CI - Last Documented Arterial Blood Pressure 137/47 Pulmonary Artery Pressure 67/18 Cardiac Output 5.8 Cardiac Index 2.8 - Exam Physical Exam: Revealed a 72-year-old white male sitting in a bedside chair, in no distress. On 3 L nasal cannula Head: Atraumatic, normocephalic. HEENT:[Neck is supple.] [No neck masses.] [No thyromegaly.] [No JVD.] Chest: Diminished breath sounds at the bases with crackles at the bases no rhonchi and no wheezes Cardiac Exam: Irregular irregular rhythm. [Normal S1 and S2, no S3 gallop, no murmur.] Abdomen: [Soft, nontender, no megaly, no rebound, no guarding, normal bowel sounds.] Extremities: [No clubbing, 1+ bipedal edema, no cyanosis.] Neurological Exam: [No focal neurologic deficit.] Alert oriented 3. Psychiatric: Normal mood affect and normal mental status examination. Skin: No rashes. - Labs CBC & Chem 7: 04/30/22 04:26 04/30/22 04:26 Labs: Abnormal Lab Results - Last 24 Hours (Table) 04/29/22 04/29/22 04/29/22 Range/Units 09: 16:18 20:59 WBC (3.8-10.6) k/uL RBC (4.30-5.90) m/uL Hgb (13.0-17.5) gm/dL Hct (39.0-53.0) % MCHC (31.0-37.0) g/dL Neutrophils # (1.3-7.7) k/uL Lymphocytes # (1.0-4.8) k/uL Monocytes # (0-1.0) k/uL Sodium (137-145) mmol/L Chloride (98-107) mmol/L BUN (9-20) mg/dL Creatinine (0.66-1.25) mg/dL POC Glucose (mg/dL) 214 H 281 H (70-110) mg/dL Calcium (8.4-10.2) mg/dL Magnesium (1.6-2.3) mg/dL ALT (4-49) U/L Total Protein (6.3-8.2) g/dL Albumin (3.5-5.0) g/dL Procalcitonin 0.72 H (0.02-0.09) ng/mL 04/30/22 04/30/22 04/30/22 Range/Units 04:26 04:26 06:52 WBC 17.8 H (3.8-10.6) k/uL RBC 2.34 L (4.30-5.90) m/uL Hgb 7.1 L (13.0-17.5) gm/dL Hct 23.1 L (39.0-53.0) % MCHC 30.6 L (31.0-37.0) g/dL Neutrophils # 15.0 H (1.3-7.7) k/uL Lymphocytes # 0.6 L (1.0-4.8) k/uL Monocytes # 1.4 H (0-1.0) k/uL Sodium 131 L (137-145) mmol/L Chloride 94 L (98-107) mmol/L BUN 84 H (9-20) mg/dL Creatinine 1.83 H (0.66-1.25) mg/dL POC Glucose (mg/dL) 142 H (70-110) mg/dL Calcium 8.2 L (8.4-10.2) mg/dL Magnesium 2.5 H (1.6-2.3) mg/dL ALT 162 H (4-49) U/L Total Protein 5.5 L (6.3-8.2) g/dL Albumin 3.4 L (3.5-5.0) g/dL Procalcitonin (0.02-0.09) ng/mL Microbiology - Last 24 Hours (Table) 04/29/22 23:30 Sputum Culture - Preliminary Sputum Assessment and Plan Assessment: Impression: 1. Severe mitral valve regurgitation, status post mitral valve repair, postoperative day # 11 2. Coronary artery disease, previous PCI, previous non-STEMI, status post CABG 3, postop day #10 3. History of paroxysmal atrial fibrillation, previous cardioversion, on [facility] outpatient for anticoagulation, status post modified Castanon maze and ligation of left atrial appendage, postop day #10 4. Patent foramen ovale, status post closure, postop day #10 5. Atrial fibrillation, expected outcome of surgery and the patient is back to normal sinus rhythm. The patient is currently on oral amiodarone, and meto prolol. No anticoagulations yet. 6. Chronic systolic congestive heart failure, ischemic cardiomyopathy with EF 40-45% 7. History of hypertension 8. History hyperlipidemia, treated, cholesterol 150, LDL 72 9. Right internal carotid stenosis 50-79% 10. Anemia with history of GI bleed in November 2021 S/P transfusion PRBCs 11. Acute on chronic renal failure, creatinine is at 1.9 12. Diabetes mellitus type 2, preoperative hemoglobin A1c 5.6% currently Levemir insulin 8 units along with a sliding scale coverage 13. Osteoarthritis 14. Severe COPD, preoperative FEV1 41% of predicted 15. Chronic ongoing nicotine dependence 16. Remote history of pneumonia 17. Chronic low back pain, hearing disorder 18. Nasal swab positive for MSSA preoperative 19. Postoperative acute blood loss anemia, expected 20. Elevated transaminases, most likely due to shock liver and the significant elevation of the ALT and AST which are being monitored, and the level is also improving and there is a decline and LFTs 21. Protamine reaction intraoperative 22 decubitus ulcer stage 2 23, small left-sided pleural effusion along with some left basilar atelectasis. Recommendation: Continue oxygen and titrate accordingly Continue bronchodilators and diuretics, the effusions are not large enough to consider thoracentesis Continue incentive spirometry Continue GI and DVT prophylaxis Continue metoprolol and amiodarone. Consider rehab placement. We'll continue to follow Time with Patient: Less than 30
[2022-04-30 11:55] LABS: Glucose,Whole Blood 252 mg/dL (70-110)
--- NOTE | 2022-04-30 12:48 | P.PN ---
Subjective Progress Note Date: 04/30/22 The patient is a 72-year-old male who is currently admitted to the hospital after undergoing CABG 3 with mitral valve repair and PFO closure on April 19. Postoperative complications include acute kidney injury, hypotension, and respiratory insufficiency requiring BiPAP. 04/26 Patient seen and examined. Patient admits he is still very edematous. His Lasix were stopped yesterday however continues to have significant upper and lower extremity edema. His creatinine has been improving close to back to baseline 1.5 today. Liver enzymes also have been improving. Denies any chest pain or pressure. 04/27 Patient seen and examined. Patient states his shortness breath has somewhat worsened since yesterday. He was placed on Lasix with a urine output. His creatinine remained stable and liver enzymes improving. Chest x-ray showing worsening pulmonary edema. 04/28 Patient seen and examined. Patient still having significant dyspnea. He was briefly placed on nitroglycerin however blood pressures have been borderline and this was discontinued. Chest x-ray still showing significant vascular congestion and still has 2-3+ lower extremity edema. Admits he feels somewhat similar to yesterday and still significant dyspnea. He has been on Lasix with - 1300 mL output over the last 24 hours. Creatinine mildly increased up to 1.5. Liver enzymes mildly improving and remains on amiodarone. He converted to sinus rhythm. 04/29 Patient seen and examined. Patient still with significant dyspnea. Denies any chest pain or pressure. Still has significant lower extremity edema. Has had g ood urine output. Creatinine increased up to 1.9. White blood cell increased to 18.5, hemoglobin 7.6, sodium 129, remains in sinus rhythm on telemetry, AST 62, ALT 213, CRP 5.6, albumin 3.3. 04/30 Patient remains in the intensive care unit with continued dyspnea. Patient is being diuresed with Bumex with good urine output. quality assurance monitor is sinus rhythm. Heart rate in the 60s and 70s, blood pressure 114/57, pulse ox 95% on 3 L. WBC 17.8, hemoglobin 7.1. Sodium 131, potassium 4.6, chloride 94, CO2 28, BUN 84 creatinine 1.84. Chest x-ray reveals improving small bilateral pleural effusions. Repeat echo pending. CAT scan of the chest revealed moderate partially loculated right pleural ef fusion, moderate to large left pleural effusion, marked cardiomegaly without pulmonary vascular congestion or interstitial edema. Physical examination GENERAL: Ill-appearing, well-nourished and in no acute distress. NECK: Supple without JVD or thyromegaly. LUNGS: Breath sounds diminished to auscultation bilaterally. Respiration equal and unlabored. No wheezes, rales or rhonchi. HEART: Regular rate and rhythm. +2/6 systolic murmur. No rubs or gallops. S1 and S2 heard. EXTREMITIES: Normal range of motion, 2+ LE edema. No pedal pulses. VITALS: Vitals reviewed IMPRESSION: Coronary artery disease status post CABG 3 Mitral regurgitation, status post mitral valve repair PFO, status post closure Acute kidney injury, improving Hyperkalemia, secondary to a JENIFFER Elevated liver enzymes, likely due to shock liver Acute on chronic diastolic heart failure, LV EF 45-50% PLAN: Continue supportive care Continue diuresing with Bumex 2 mg IV every 12 hours, monitor I&O, daily weights, electrolyte and renal function Check repeat echo. Further recommendations to follow. Nurse practitioner note has been reviewed, I agree with documented findings and plan of care. Patient was seen and examined. Objective - Vital Signs Vital signs: Vital Signs Temp 97.7 F 04/30/22 08:00 Pulse 67 04/30/22 12:11 Resp 20 04/30/22 11:00 BP 114/57 04/30/22 11:00 Pulse Ox 97 04/30/22 11:00 FiO2 100 04/22/22 16:00 Intake & Output 04/29/22 04/30/22 04/30/22 18:59 06:59 18:59 Intake Total 1400 350 340 Output Total 910 1510 745 Balance 490 -1160 -405 Weight 103 kg Intake: Intake, IV Titration 100 100 Amount Cefepime 2 gm In Sodium 100 100 Chloride 0.9% 100 ml @ 25 mls/hr IVPB Q12HR [facility] Rx #:[id number] Oral 1400 250 240 Output: Urine 910 1510 745 Other: Voiding Method Indwelling Catheter Indwelling Catheter Indwelling Catheter ABP, PAP, CO, CI - Last Documented Arterial Blood Pressure 137/47 Pulmonary Artery Pressure 67/18 Cardiac Output 5.8 Cardiac Index 2.8 - Labs CBC & Chem 7: 04/30/22 04:26 11/28/22 04:26 Labs: Abnormal Lab Results - Last 24 Hours (Table) 04/29/22 04/29/22 04/29/22 Range/Units 09:22 16:18 20:59 WBC (3.8-10.6) k/uL RBC (4.30-5.90) m/uL Hgb (13.0-17.5) gm/dL Hct (39.0-53.0) % MCHC (31.0-37.0) g/dL Neutrophils # (1.3-7.7) k/uL Lymphocytes # (1.0-4.8) k/uL Monocytes # (0-1.0) k/uL Sodium (137-145) mmol/L Chloride (98-107) mmol/L BUN (9-20) mg/dL Creatinine (0.66-1.25) mg/dL POC Glucose (mg/dL) 214 H 281 H (70-110) mg/dL Calcium (8.4-10.2) mg/dL Magnesium (1.6-2.3) mg/dL ALT (4-49) U/L Total Protein (6.3-8.2) g/dL Albumin (3.5-5.0) g/dL Procalcitonin 0.72 H (0.02-0.09) ng/mL 04/30/22 04/30/22 04/30/22 Range/Units 04:26 04:26 06:52 WBC 17.8 H (3.8-10.6) k/uL RBC 2.34 L (4.30-5.90) m/uL Hgb 7.1 L (13.0-17.5) gm/dL Hct 23.1 L (39.0-53.0) % MCHC 30.6 L (31.0-37.0) g/dL Neutrophils # 15.0 H (1.3-7.7) k/uL Lymphocytes # 0.6 L (1.0-4.8) k/uL Monocytes # 1.4 H (0-1.0) k/uL Sodium 131 L (137-145) mmol/L Chloride 94 L (98-107) mmol/L BUN 84 H (9-20) mg/dL Creatinine 1.83 H (0.66-1.25) mg/dL POC Glucose (mg/dL) 142 H (70-110) mg/dL Calcium 8.2 L (8.4-10.2) mg/dL Magnesium 2.5 H (1.6-2.3) mg/dL ALT 162 H (4-49) U/L Total Protein 5.5 L (6.3-8.2) g/dL Albumin 3.4 L (3.5-5.0) g/dL Procalcitonin (0.02-0.09) ng/mL 04/30/22 Range/Units 11:53 WBC (3.8-10.6) k/uL RBC (4.30-5.90) m/uL Hgb (13.0-17.5) gm/dL Hct (39.0-53.0) % MCHC (31.0-37.0) g/dL Neutrophils # (1.3-7.7) k/uL Lymphocytes # (1.0-4.8) k/uL Monocytes # (0-1.0) k/uL Sodium (137-145) mmol/L Chloride (98-107) mmol/L BUN (9-20) mg/dL Creatinine (0.66-1.25) mg/dL POC Glucose (mg/dL) 252 H (70-110) mg/dL Calcium (8.4-10.2) mg/dL Magnesium (1.6-2.3) mg/dL ALT (4-49) U/L Total Protein (6.3-8.2) g/dL Albumin (3.5-5.0) g/dL Procalcitonin (0.02-0.09) ng/mL Microbiology - Last 24 Hours (Table) 04/29/22 09:27 Blood Culture - Preliminary Blood No Growth after 24 hours 04/29/22 09:22 Blood Culture - Preliminary Blood No Growth after 24 hours 04/29/22 23:30 Sputum Culture - Preliminary Sputum
--- NOTE | 2022-04-30 13:57 | P.PN ---
Progress Note - Text Progress Note Date: 04/30/22 Patient is a pleasant 72-year-old male came in the for elective mitral valve repair, CABG x 3 vessel, maze procedure, PFO closure. Patient is extubated sitting in the chair patient still has a Jackson-Varghese catheter, CVP of around 12, cardiac index 3.1 patient creatinine went up to 1.70 resulting elevated potassium of 5.5 patient is off pressor support, off nitro drip patient still has 2 mediastinal and one left-sided chest tube. 04/21/2022 Patient is evaluated in ICU today, sitting up in chair. He is postoperative day #2 for elective mitral valve repair, hematocrit bypass grafting maze procedure and PFO closure. He is on BiPAP with fio2 of 40% Continues with mediastinal/left pleural chest tubes. Continue with indwelling catheter. Received dose of IV albumin yesterday afternoon. Chest xray today showing ongoing mild pulmonary vascular congestion, increasing patchy bibasilar opacities, atelectasis vs. pulmonary edema. Currently on lasix gtt at 10mls/hr, continues on dopamine gtt at 3.68 mls/hr. Continues on insulin gtt and blood glucose remains in the 140 to 130s. Labs today showing sodium 132, potassium 6.1 improved to 5.4, BUN 41, creatinine 2.53, elevated liver enzymes. Hgb 7.3. 04/22/2022 Patient continues to be monitored closely in intensive care unit, he is postoperative day #3 for elective mitral valve repair, maze procedure, PFO closure. Managed by primary team. He had limited echocardiogram completed showing EF 45 to 50%, mild to moderate MR, moderate pulmonary hypertension with moderate TR. Chest xray today shows slight improvement in pulmonary vascular congestion. Maintained on lasix gtt at 10mls/hr, dopamine gtt, Continues with 2 mediastinal chest tubes. Continues with indwelling catheter. Continues with right IJ swan/cordis, right radial arterial line. He has been weaned off BiPAP currently on high flow cannula at 15L. He has been tolerating some diet. Continues on insulin gtt which will continue until his diet stabilizes. Current glucose in the 140s. Creatinine today 3.14. April 23: I assumed care of patient today from [facility]. ICU. In a recliner. Tired. Little oral intake. Nasal cannula. Drips include IV dopamine and Lasix. Some shortness of breath. Mooney catheter. 04/24/2022: ICU. Up. 4 L nasal cannula. Did eat better. Edema present. On the Lasix drip 5 mg an hour. Some improvement in creatinine. 04/25/2022: ICU. Up in a recliner. Eating better. at the bedside. Edema present. Off Lasix drip. Feeling better. Creatinine coming down. LFTs improving. Home dose of Victoza was started 04/26/2022: ICU. Up in a recliner. 4 L nasal cannula. Eating about 50%. Accu-Cheks noted. 04/27/2022: ICU: Patient went into atrial fibrillation overnight. Put on oral amiodarone and Lopressor per CTS.. Some worsening of shortness of breath. Placed on IV Lasix. Eating some. Up in a recliner. 04/28/2022: ICU. Patient received Lopressor today for the A. fib. Patient went down into sinus rhythm. Blood pressure also dropped her was 70 systolic. Oxygen increased to 4 L. Short of breath. Patient did walk 10-12 steps up to the door. Eating fair. Lower extremity edema edema present. Up in a chair. Tired. 04/29/2022: ICU. Short of breath. 3 L nasal cannula. Eating fair. Edema pre sent. Getting Bumex. Getting IV albumin and IV calcium. Using incentive spirometry. Up in a chair. Discussed with at the bedside. Increasing white count, infiltrated urine chest x-ray suggestive of pneumonia. Started on IV cefepime 04/30/2022: ICU. Remains short of breath. 3 L nasal cannula. Started on IV cefepime yesterday.. Oral intake fair. Edema present. Remains on Bumex. Fo sher catheter. Discussed with patient and at the bedside. Discussed with Dr. Cortez from cardiothoracic surgery. Active Medications Acetaminophen (Acetaminophen Tab 325 Mg Tab) 650 mg PO Q6HR PRN PRN Reason: Fever and/ or Pain Last Admin: 04/30/22 10:36 Dose: 650 mg Albuterol/Ipratropium (Ipratropium-Albuterol 3 Ml Neb) 3 ml INHALATION RT-Q2H PRN PRN Reason: Shortness Of Breath Or Wheezing Last Admin: 04/29/22 23:30 Dose: 3 ml Albuterol/Ipratropium (Ipratropium-Albuterol 3 Ml Neb) 3 ml INHALATION RT-QID [facility] Last Admin: 04/30/22 12:10 Dose: 3 ml Amiodarone HCl (Amiodarone 200 Mg Tab) 200 mg PO BID [facility] Last Admin: 04/30/22 08:52 Dose: 200 mg Ascorbic Acid (Ascorbic Acid 500 Mg Tab) 500 mg PO DAILY [facility] Last Admin: 04/30/22 08:52 Dose: 500 mg Aspirin (Aspirin 325 Mg Tab) 325 mg PO DAILY [facility] Last Admin: 04/30/22 08:52 Dose: 325 mg Atorvastatin Calcium (Atorvastatin 40 Mg Tab) 40 mg PO DAILY [facility] Last Admin: 04/30/22 10:37 Dose: 40 mg Benzocaine/Menthol (Benzocaine/Menthol Lozeng 1 Each Lozenge) 1 each MUCOUS MEM Q2HR PRN PRN Reason: Sore Throat Last Admin: 04/28/22 11:01 Dose: 1 each Bisacodyl (Bisacodyl 10 Mg Supp) 10 mg RECTAL DAILY PRN PRN Reason: Constipation Last Admin: 04/30/22 10:13 Dose: 10 mg Budesonide/Formoterol Fumarate (Symbicort 160-4.5 Mcg Inhaler) 2 puff INHALATION RT-BID [facility] Last Admin: 04/30/22 08:17 Dose: 2 puff Bumetanide (Bumetanide 0.25 Mg/Ml 10 Ml Vial) 2 mg IV Q12H [facility] Last Admin: 04/30/22 02:08 Dose: 2 mg Clopidogrel Bisulfate (Clopidogrel 75 Mg Tab) 75 mg PO DAILY [facility] Last Admin: 04/30/22 08:52 Dose: 75 mg Dextrose/Water (Dextrose 50% Syringe 50 Ml) 25 ml IVP PER PROTOCOL PRN; Protocol PRN Reason: Hypoglycemia Dextrose/Water (Dextrose 50% Syringe 50 Ml) 50 ml IVP PER PROTOCOL PRN; Protocol PRN Reason: Hypoglycemia Dextrose/Water (Dextrose 50% Syringe 50 Ml) 25 ml IVP PER PROTOCOL PRN; Protocol PRN Reason: Hypoglycemia Dextrose/Water (Dextrose 50% Syringe 50 Ml) 50 ml IVP PER PROTOCOL PRN; Protocol PRN Reason: Hypoglycemia Ferrous Sulfate (Ferrous Sulfate 325 Mg Tab) 325 mg PO BID [facility] Last Admin: 04/29/22 19:57 Dose: 325 mg Heparin Sodium (Porcine) (Heparin Sodium,Porcine/Pf 5,000 Unit/0.5 Ml Syringe) 5,000 unit SQ Q8HR [facility] Last Admin: 04/30/22 08:50 Dose: 5,000 unit Calcium Gluconate/Sodium (Chloride 2 gm/ IV Solution) 100 mls @ 100 mls/hr IVPB ONCE PRN PRN Reason: Ionized Calcium less than 4.4 Stop: 05/19/22 23:00 Cefepime HCl 2 gm/ Sodium (Chloride) 100 mls @ 25 mls/hr IVPB Q12HR [facility]; Protocol Stop: 05/04/22 21:01 Last Admin: 04/30/22 08:52 Dose: 25 mls/hr Insulin Aspart (Insulin Aspart (Novolog) 100 Unit/Ml Vial) 0 unit SQ ACHS [facility]; Protocol Last Admin: 04/30/22 12:05 Dose: 6 unit Insulin Detemir (Insulin Detemir (Levemir) 100 Unit/Ml Syr) 8 unit SQ HS [facility] Last Admin: 04/29/22 21:05 Dose: 8 unit Isosorbide Mononitrate (Isosorbide Mononitrate Er 15 Mg Tab) 15 mg PO DAILY [facility] Last Admin: 04/30/22 08:55 Dose: 15 mg Magnesium Hydroxide (Magnesium Hydroxide 2,400 Mg/10 Ml Cup) 2,400 mg PO BID PRN PRN Reason: Constipation Last Admin: 04/22/22 07:08 Dose: 2,400 mg Metoprolol Tartrate (Metoprolol Tartrate 25 Mg Tab) 25 mg PO BID [facility] Last Admin: 04/30/22 08:52 Dose: 25 mg Miscellaneous Information (Potassium Replacement Protocol 1 Each Misc) 1 each MISCELLANE DAILY PRN; Protocol PRN Reason: Per Protocol Miscellaneous Information (Magnesium Replacement Protocol 1 Each Misc) 1 each MISCELLANE DAILY PRN; Protocol PRN Reason: Per Protocol Non-Formulary Medication (Non Formulary Drug) 1 each SQ DAILY [facility] Last Admin: 04/30/22 08:51 Dose: 1 each Ondansetron HCl (Ondansetron 4 Mg/2 Ml Vial) 4 mg IVP Q6HR PRN PRN Reason: Nausea And Vomiting Last Admin: 04/27/22 09:22 Dose: 4 mg Pioglitazone HCl (Pioglitazone 15 Mg Tab) 15 mg PO DAILY [facility] Last Admin: 04/30/22 08:52 Dose: 15 mg Senna/Docusate Sodium (Sennosides-Docusate Sodium 1 Each Tab) 2 each PO HS [facility] Last Admin: 04/29/22 19:59 Dose: 2 each Sodium Chloride (Sodium Chloride 0.9% Flush 10 Ml Syringe) 10 ml IV BID [facility] Last Admin: 04/30/22 08:53 Dose: 10 ml Tamsulosin HCl (Tamsulosin 0.4 Mg Cap.Er.24h) 0.4 mg PO PC-BRKFST [facility] Last Admin: 04/30/22 08:55 Dose: 0.4 mg On examination: VITAL SIGNS: 97.8, 66, 18, 140s/57, 95% on 2 L GENERAL APPEARANCE: Up in a recliner, tired, short of breath HEENT: Normal external appearance of nose and ear. Oral cavity normal EYES: Pupils equal. Conjunctiva normal. NECK: JVD not raised. Mass not palpable. RESPIRATORY: Respiratory effort increased. Lungs diminished breath sounds. CARDIOVASCULAR: First and second sounds normal. Edema present ABDOMEN: Soft. Liver and spleen not palpable. No tenderness. No mass palpable. Mooney catheter PSYCHIATRY: AO 3, mood and affect normal INVESTIGATIONS, reviewed in the clinical context: 04/30/2022: WBC 17.81 7.14.6 BUN [address] chest [April 29]: Moderate partial obliterate right pleural effusion, left pleural effusion, cardiomegaly. , 04/29/2022: WBC 18.5 hemoglobin 7.6 platelets 272 potassium 4.9 creatinine 1.98 CRP 5.6 procalcitonin 0.7 to, AST 62, ALT 213 04/28/2022: WBC 15 hemoglobin 7.1 potassium 4.7 BUN 71 creatinine 1.50 AST 90 AST 285 04/27/2022: WBC 10.5 hemoglobin 7.3 platelets 167 potassium 4.1 BUN 75 creatinine 1.35 AST was 67 ALT 378 04/26/2022: WBC 9.1 hemoglobin 7.4 platelets 101 potassium 4.6 BUN 83 creatinine 1.5 for AST 266 ALT 477 04/25/2022: WBC 12.4 hemoglobin 7.2 potassium 4.5 BUN 85 creatinine 2.12 AST 503 ALT 619 04/24/2022: WBC 9.2 hemoglobin 7.1 platelets 122 potassium 5.1 BUN 77 creatinine 2.97 AST 1270 ALT 1038 WBC 8.2 hemoglobin 7.5 platelets 111 sodium 135 progression 6 BUN 67 creatinine 3.43 AST 3595 ALT 1512 Limited 2-D echocardiogram: EF 45-50%. Inferior wall hypokinesis. Moderate MR. Moderate pulmonary hypertension with moderate TR. Assessment and plan -Acute on chronic congestive heart exacerbation from systolic/diastolic dysfunction EF 45-50%:, precipitated by worsening A. fib IV Bumex 2 mg every 12 -Suspect pneumonia, patient short of breath, infiltrate on chest x-ray, increasing white count and procalcitonin: Slow to respond IV cefepime -Acute hypoxic respiratory failure from pulmonary edema: Slow to respond 3 L nasal cannula -Diabetes Mellitus type 2 with hyperglycemia, Victoza , Actos. Levemir 8 units daily at bedtime -Paroxysmal atrial fibrillation status post modified Castanon-Maze procedure,: With rapid ventricular rate: Now back into sinus rhythm amiodarone ,Lopressor. -acute renal failure on chronic kidney disease stage II with renal failure is probably prerenal azotemia, cardiorenal syndrome.: Worsening Creatinine peaked at 3.43. Creatinine going up to 1.98 -hyperkalemia secondary to acute renal failure: Corrected Received Lokelma. Renal diet -Acute hepatitis, likely ischemic: Improving Follow closely. GI services not available in the hospital. Hold any hepatic offensive medications. Follow LFTs patient as patient started back on amiodarone -Acute COPD exacerbation, and a smoker DuoNeb. Symbicort -Hyperlipidemia Hold statins, because of elevated LFTs - coronary artery disease with previous PCI Aspirin, Lasix, Imdur, Lopressor currently on hold -Acute postprocedure blood loss anemia as expected from surgery Patient receive 2 units of PRBC, follow CBC -Chronic nicotine dependence -Sacral decubitus ulcer, stage II Local care -Severe MR status post mitral valve failure, status post CABG, status post PFO Patel -Moderate secondary probably hypertension 3 L nasal cannula. IV cefepime per cardiology IV Bumex. Discussed with Dr. Cortez from cardiothoracic. Discussed with patient and
[2022-04-30 17:07] LABS: Glucose,Whole Blood 184 mg/dL (70-110)
--- NOTE | 2022-04-30 18:05 | XR ---
EXAMINATION TYPE: XR chest 1V portable DATE OF EXAM: 04/30/2022 5:03 PM COMPARISON: Chest radiographs from 04/22/2022 earlier in the day TECHNIQUE: XR chest 1V portable Portable AP radiograph of the chest. CLINICAL INDICATION:Male, 72 years old with history of post thoracentesis; FINDINGS: Lungs/Pleura: No evidence of focal consolidation or pneumothorax. Blunting of the costophrenic angles is present. Pulmonary vascularity: Pulmonary vascular congestion. Heart/mediastinum: Cardiomediastinal silhouette is enlarged and stable. Valvular heart repair changes are present. Musculoskeletal: No acute osseous pathology. Midline sternotomy wires are noted. IMPRESSION: Cardiomegaly, pulmonary vascular congestion and bilateral pleural effusions. Correlate with BNP for c ongestive heart failure. Findings not significantly changed from earlier in the day.
[2022-04-30] MEDS: SENNOSIDES-DOCUSATE SODIUM 1 EACH TAB PO SCH (20:03)
[2022-04-30] MEDS: FERROUS SULFATE 325 MG TAB PO SCH (20:04)
[2022-04-30] MEDS: BENZOCAINE/MENTHOL LOZENG 1 EACH LOZENGE MUCOUS MEM PRN (20:07)
[2022-04-30 21:56] LABS: Glucose,Whole Blood 203 mg/dL (70-110)
[2022-04-30] MEDS: INSULIN DETEMIR (LEVEMIR) 100 UNIT/ML SYR SQ SCH (22:03)
--- NOTE | 2022-04-30 23:06 | OP ---
OPERATIVE REPORT PROCEDURE PERFORMED: Left-sided thoracentesis. PREOPERATIVE DIAGNOSIS: Left pleural effusion. POSTOPERATIVE DIAGNOSIS: Left pleural effusion. ANESTHESIA USED: 2 mL of 1% lidocaine. DESCRIPTION OF PROCEDURE: The patient was placed in a sitting upright position, the area below the left scapula was prepared in a sterile fashion, drapes were applied. The area of the fluid was earlier localized with ultrasound, and the area correlated to the 8th intercostal space and tip of the scapula. Then, the area was locally anesthetized with lidocaine and a 26-gauge needle was inserted to the pleural space and the fluid was localized to the needle. Then a small tiny incision was made, and a 9-Kyrgyz thoracentesis catheter was used with the needle, advanced into the pleural space until the fluid was obtained, then the catheter was advanced over the needle into the pleural space and the needle was pulled out of the pleural space. Freely flowing fluid was removed, roughly 850 mL drained from the left pleural space, was slightly serosanguineous. The fluid was sent for different diagnostic studies. Chest x-ray is pending, no immediate complications noted. Procedure was well tolerated. MMODL / IJN: [id number] /
[2022-05-01] MEDS: BUMETANIDE 0.25 MG/ML 10 ML VIAL IV SCH ×2 (01:50→14:21)
[2022-05-01 02:15] LABS: Appearance,BF Bloody
[2022-05-01] MEDS: ACETAMINOPHEN TAB 325 MG TAB PO PRN ×4 (02:52→20:08)
[2022-05-01 04:23] LABS: LDH, Body Fluid Source Pleural Fluid; T. Protein, Body Fluid Source Pleural Fluid; Total Protein, Body Fluid 1880 mg/dL
[2022-05-01 05:45] LABS: Glucose,Whole Blood 177 mg/dL (70-110)
[2022-05-01] MEDS: INSULIN ASPART (NovoLOG) 100 UNIT/ML VIAL SQ SCH ×4 (05:47→20:52)
[2022-05-01] MEDS: BENZOCAINE/MENTHOL LOZENG 1 EACH LOZENGE MUCOUS MEM PRN (05:47)
--- NOTE | 2022-05-01 07:01 | XR ---
EXAMINATION TYPE: XR chest 1V portable DATE OF EXAM: 05/01/2022 CLINICAL HISTORY: Difficulty breathing progress study. Post operative cardiac surgery TECHNIQUE: Single AP portable upright view of the chest is obtained. COMPARISON: Chest x-ray from one day earlier and older studies. FINDINGS: Overlying sternal wires along with cardiac valve surgical change are redemonstrated. Persi stent bibasilar opacities and small bilateral pleural effusions. Surgical changes right humeral head noted. No pneumothorax seen bilaterally. Stable cardiomegaly. IMPRESSION: Cardiomegaly with mild central vascular congestion and small bilateral pleural effusions along with bibasilar atelectasis all redemonstrated. No significant change from one day earlier.
[2022-05-01 07:39] LABS: Basophils # (A) 0.1 k/uL (0-0.2); Basophils % (A) 0 %; Eosinophils # (A) 0.2 k/uL (0-0.7); Eosinophils % (A) 1 %; HCT 23.2 % (39.0-53.0); HGB 7.2 gm/dL (13.0-17.5); Hypochromasia Marked; Lymphocytes # (A) 0.5 k/uL (1.0-4.8); Lymphocytes % (A) 3 %; MCH 30.4 pg (25.0-35.0); MCV 98.1 fL (80.0-100.0); Mean Platelet Volume 8.5; Monocytes # (A) 1.2 k/uL (0-1.0); Monocytes % (A) 8 %; Neutrophils # (A) 13.1 k/uL (1.3-7.7); Neutrophils % (A) 86 %; Platelet Count 305 k/uL (150-450); Poikilocytosis Slight; RBC 2.36 m/uL (4.30-5.90); RDW 15.5 % (11.5-15.5); WBC 15.3 k/uL (3.8-10.6)
[2022-05-01 07:49] LABS: Albumin 3.2 g/dL (3.5-5.0); Calcium 8.2 mg/dL (8.4-10.2); Magnesium 2.2 mg/dL (1.6-2.3); Total Bilirubin 1.2 mg/dL (0.2-1.3); Total Protein 5.4 g/dL (6.3-8.2)
[2022-05-01] MEDS: IPRATROPIUM-ALBUTEROL 3 ML NEB INHALATION SCH ×4 (07:53→21:03)
[2022-05-01] MEDS: SYMBICORT 160-4.5 MCG INHALER INHALATION SCH ×2 (07:53→21:03)
[2022-05-01] MEDS ORDERED: POTASSIUM CHLORIDE ER 20 MEQ TAB.ER PO SCH (08:00)
[2022-05-01] MEDS: CEFEPIME 2 GM in SODIUM CHLORIDE 0.9% 100 ML IVPB SCH ×2 (08:22→20:59)
[2022-05-01] MEDS: METOPROLOL TARTRATE 25 MG TAB PO SCH ×2 (08:23→20:08)
[2022-05-01] MEDS: ISOSORBIDE MONONITRATE ER 15 MG TAB PO SCH (08:23)
[2022-05-01] MEDS: CLOPIDOGREL 75 MG TAB PO SCH (08:23)
[2022-05-01] MEDS: ASPIRIN 325 MG TAB PO SCH (08:23)
[2022-05-01] MEDS: PIOGLITAZONE 15 MG TAB PO SCH (08:23)
[2022-05-01] MEDS: FERROUS SULFATE 325 MG TAB PO SCH ×2 (08:23→20:08)
[2022-05-01] MEDS: ATORVASTATIN 40 MG TAB PO SCH (08:23)
[2022-05-01] MEDS: AMIODARONE 200 MG TAB PO SCH ×2 (08:23→20:08)
[2022-05-01] MEDS: ASCORBIC ACID 500 MG TAB PO SCH (08:23)
[2022-05-01] MEDS: TAMSULOSIN 0.4 MG CAP.ER.24H PO SCH (08:27)
[2022-05-01] MEDS: NON FORMULARY DRUG SQ SCH (08:27)
[2022-05-01] MEDS: HEPARIN SODIUM,PORCINE/PF 5,000 UNIT/0.5 ML SYRINGE SQ SCH ×3 (08:27→23:03)
[2022-05-01] MEDS ORDERED: metOLazone 2.5 MG TAB PO SCH (09:00)
--- NOTE | 2022-05-01 09:34 | P.PN ---
Subjective Progress Note Date: 05/01/22 Principal diagnosis: Severe mitral valve regurgitation, coronary artery disease, paroxysmal atrial fibrillation, patent foramen ovale, tricuspid regurgitation, chronic systolic congestive heart failure. Past medical history significant for hypertension, hyperlipidemia, coronary artery disease with history of previous PCI, non-ST elevated myocardial infarction in November 2021, ischemic cardiomyopathy with EF 40- 45%, right internal carotid stenosis 50-79%, renal insufficiency, anemia with history of GI bleed in November 2021 S/P transfusion PRBCs, diabetes mellitus type 2, osteoarthritis, severe COPD, chronic ongoing nicotine dependence, remote history of pneumonia, chronic low back pain and hearing disorder. Nasal swab positive for MSSA preoperative. POD #12 Mitral valve repair with 28 mm physio-2 ring, CABG 3 with saphenous vein grafts to first diagonal, obtuse marginal, posterior descending coronary arteries, closure of PFO, endovascular vein harvest, modified Castanon maze procedure with full left-sided lesion set and ligation of the left atrial appendage, SCOTT by anesthesia. Protamine reaction intraoperative Postoperative acute blood loss anemia, expected given his history of anemia, hemodilution and cardiopulmonary bypass. Acute on chronic kidney failure, likely from hypotension from intraoperative protamine reaction. Elevated transaminases, likely from hypotension from intraoperative protamine reaction. Left pleural effusion, status post day #1 left-sided thoracentesis with 850 mL of fluid drained by Dr. Aguilar The patient was seen and examined in follow-up today 05/01/2022 at his bedside in the intensive care unit. Oxygen saturations are 96% on 2 L nasal cannula and he is achieving 1000 mL on his incentive spirometry. He reports he is reading is somewhat improved today after undergoing the left-sided thoracentesis yesterday 04/30/[address] Aguilar with 850 mL of fluid drained. Complaining of some generalized pain rating his pain 3-4 out of 10 on the pain scale. Bedside telemetry showing normal sinus rhythm heart rate 66 BPM. He remains hemodynamically stable and is currently on NO inotropic or pressor support. He continues to have a Mooney catheter in place for some urinary retention, he continues on Bumex 2 mg IV every 12 hours and was given a dose of Zaroxolyn 5 mg by mouth 1 yesterday. Is currently diuresing around 2-300 mL per hour. He remains afebrile in the last 24 hours, sputum culture and blood cultures continue to show no growth after 24 hours. He remains on cefepime 2 g IV piggyback every 12 hours for antibiotic coverage. Laboratory results this morning show a WBC count trending down at 15.3, hemoglobin 7.2, hematocrit 23.2, platelets 305, sodium 131, potassium 4.0, BUN 79, creatinine 1.57, glucose 143, calcium 8.2 and liver enzymes continue to improve with an AST of 43 and ALT 131. He was restarted on Lipitor 40 mg by mouth daily yesterday. He also continues on amiodarone 200 mg by mouth twice a day and metoprolol tartrate 25 mg by mouth twice a day. Transthoracic 2-D echocardiogram was completed this morning with results pending. Objective - Vital Signs Vital signs: Vital Signs Temp 98.2 F 05/01/22 08:00 Pulse 75 05/01/22 09:00 Resp 26 H 05/01/22 09:00 BP 110/55 05/01/22 09:00 Pulse Ox 96 05/01/22 09:00 FiO2 100 04/22/22 16:00 Intake & Output 04/30/22 05/01/22 05/01/22 18:59 06:59 18:59 Intake Total 820 250 590 Output Total 3235 3035 750 Balance -2415 -4957 -160 Weight 99 kg Intake: Intake, IV Titration 100 100 Amount Cefepime 2 gm In Sodium 100 100 Chloride 0.9% 100 ml @ 25 mls/hr IVPB Q12HR [facility] Rx #:[id number] Oral 720 250 490 Output: Drainage 860 thoracentesis 860 Urine 2375 3035 750 Other: Voiding Method Indwelling Catheter Indwelling Catheter Indwelling Catheter # Bowel Movements 1 ABP, PAP, CO, CI - Last Documented Arterial Blood Pressure 137/47 Pulmonary Artery Pressure 67/18 Cardiac Output 5.8 Cardiac Index 2.8 - Exam CONSTITUTIONAL: Sitting up to the bedside chair in the intensive care unit, appe ars comfortable, cooperative, no apparent acute distress. HEENT: Neck is supple, no JVD, no lymphadenopathy. RESPIRATORY: Lungs sounds essentially clear throughout, diminished to his bilateral bases. Respirations are symmetrical and nonlabored. Currently on 2 L nasal cannula with oxygen saturations 96%. Able to achieve 1000 mL on incentive spirometry. Strong cough. CARDIOVASCULAR: Regular rhythm and rate. S1 and S2 present, negative for S3, gallop or murmur. Sternum is stable. Palpable peripheral pulses bilaterally, +1 to +2 edema to his bilateral lower extremities. No calf pain or tenderness noted. Heart hugger in place with patient demonstrating appropriate use. Knee- high RAFAEL hose and sequential compression devices in place to his bilateral lower extremities. Bedside telemetry showing normal sinus rhythm heart rate 66 BPM. GASTROINTESTINAL: Abdomen soft, nontender, nondistended. Active bowel sounds present 4 quadrants. Tolerating diet. Passing flatus. No guarding or rigidity. Bowel movement on 04/30/2022. GENITOURINARY: Mooney catheter in place for accurate I's and O's. Urine output 2200 mL in the last 8 hours. INTEGUMENTARY: Skin is warm and dry with no evidence of clubbing or cyanosis. Midline sternal incision clean dry and well approximated, covered with dry intact dressing. Bilateral lower extremity EVH sites well approximated without redness or drainage. Erythema to his buttocks, optifoam dressing clean, dry and intact. MUSKULOSKELETAL: Able to move all extremities, strength equal bilaterally, generalized weakness. PSYCHIATRIC: Alert and oriented to person place and time, appropriate affect, intact judgment and insight. INVASIVE LINES AND TUBES: Atrial and ventricular epicardial pacemaker wires in place and grounded. - Allied health notes Allied health notes reviewed: nursing - Labs CBC & Chem 7: 05/01/22 06:33 05/01/22 06:33 Labs: Abnormal Lab Results - Last 24 Hours (Table) 04/30/22 04/30/22 04/30/22 Range/Units 11:53 17:05 21:54 WBC (3.8-10.6) k/uL RBC (4.30-5.90) m/uL Hgb (13.0-17.5) gm/dL Hct (39.0-53.0) % Neutrophils # (1.3-7.7) k/uL Lymphocytes # (1.0-4.8) k/uL Monocytes # (0-1.0) k/uL Sodium (137-145) mmol/L Chloride (98-107) mmol/L Carbon Dioxide (22-30) mmol/L BUN (9-20) mg/dL Creatinine (0.66-1.25) mg/dL Glucose (74-99) mg/dL POC Glucose (mg/dL) 252 H 184 H 203 H (70-110) mg/dL Calcium (8.4-10.2) mg/dL ALT (4-49) U/L Total Protein (6.3-8.2) g/dL Albumin (3.5-5.0) g/dL 05/01/22 05/01/22 05/01/22 Range/Units 05:43 06:33 06:33 WBC 15.3 H (3.8-10.6) k/uL RBC 2.36 L (4.30-5.90) m/uL Hgb 7.2 L (13.0-17.5) gm/dL Hct 23.2 L (39.0-53.0) % Neutrophils # 13.1 H (1.3-7.7) k/uL Lymphocytes # 0.5 L (1.0-4.8) k/uL Monocytes # 1.2 H (0-1.0) k/uL Sodium 131 L (137-145) mmol/L Chloride 93 L (98-107) mmol/L Carbon Dioxide 32 H (22-30) mmol/L BUN 79 H (9-20) mg/dL Creatinine 1.57 H (0.66-1.25) mg/dL Glucose 143 H (74-99) mg/dL POC Glucose (mg/dL) 177 H (70-110) mg/dL Calcium 8.2 L (8.4-10.2) mg/dL ALT 131 H (4-49) U/L Total Protein 5.4 L (6.3-8.2) g/dL Albumin 3.2 L (3.5-5.0) g/dL Microbiology - Last 24 Hours (Table) 04/30/22 16:45 Gram Stain - Preliminary Pleural Fluid Body Fluid Culture - Preliminary 04/30/22 16:45 Fungal Culture - Preliminary Pleural Fluid 04/30/22 16:45 Acid Fast Bacilli Culture - Preliminary Pleural Fluid 04/29/22 23:30 Gram Stain - Preliminary Sputum Sputum Culture - Preliminary 04/29/22 09:27 Blood Culture - Preliminary Blood No Growth after 24 hours 04/29/22 09: Blood Culture - Preliminary Blood No Growth after 24 hours - Imaging and Cardiology Chest x-ray: report reviewed, image reviewed Assessment and Plan Assessment: 1. Severe mitral valve regurgitation, status post mitral valve repair 2. Coronary artery disease, previous PCI, previous non-STEMI, status post CABG 3 3. History of paroxysmal atrial fibrillation, previous cardioversion, on Eliquis outpatient for anticoagulation, status post modified Castanon maze and ligation of left atrial appendage, currently in normal sinus rhythm 4. Patent foramen ovale, status post closure 5. Tricuspid regurgitation 6. Chronic diastolic congestive heart failure, ischemic cardiomyopathy with EF 40-45% 7. History of hypertension 8. History hyperlipidemia, treated, cholesterol 150, LDL 72 9. Right internal carotid stenosis 50-79% 10. Anemia with history of GI bleed in November 2021 S/P transfusion PRBCs 11. Acute on chronic renal failure, baseline creatinine 1.2-1.6 12. Diabetes mellitus type 2, preoperative hemoglobin A1c 5.6% 13. Osteoarthritis 14. Severe COPD, preoperative FEV1 41% of predicted 15. Chronic ongoing nicotine dependence 16. Remote history of pneumonia 17. Chronic low back pain 18. Hearing disorder 19. Nasal swab positive for MSSA preoperative 20. Postoperative acute blood loss anemia, expected 21. Elevated transaminases, continue to trend downward, AST 43 and ALT 143 today 22. Protamine reaction intraoperative 23. Medical debility, generalized weakness 24. Stage II decubitus to his buttocks 25. Small left-sided pleural effusion, status post left-sided thoracentesis on 04/30/2022 26. Urinary retention possibly secondary to constipation Plan: 1. Continue aspirin, Plavix, beta siomara, statin and low dose Imdur. We will increase his metoprolol tartrate as tolerated. 2. Zaroxolyn 2.5 mg by mouth 1 now. Continue Bumex 2 mg IV every 12 hours per cardiology management. 3. Continue Amiodarone 200 mg by mouth twice a day for atrial fibrillation prophylaxis. No anticoagulation until after his epicardial pacemaker wires have been removed, likely will discharge on Eliquis. 4. Transthoracic 2-D echocardiogram was completed this morning, results pending. 5. Wean O2 as tolerated. Encourage incentive spirometry 10 times every hour while awake. Bronchodilators per pulmonology/critical care management. 6. Increase activity, ambulate as tolerated. PT/OT/cardiac rehab following. Needs much encouragement with ambulation. 7. Will monitor daily labs and chest x-rays. Electronic replacement per prot ocol. Avoid hepatotoxic and nephrotoxic medications. 8. GI/DVT prophylaxis. 9. Insulin management per primary care service. Patient is a diabetic with a preoperative hemoglobin A1c of 5.6% on multiple oral medications, needs tight blood sugar control. 10. Pain control with current medication regimen. 11. Continue Mooney catheter for urinary retention and strict accurate I's and O's. Continue Flomax 0.4 mg by mouth daily. Urinalysis was negative. Urology consult noted and appreciated. Recommendations to leave Mooney catheter in for 1 week and remove Mooney for voiding trial prior to discharge. 12. Daily weights. 13. Shower daily. 14. Importance of risk modification including smoking cessation counseling and education provided to patient and family. 15. Continue to monitor blood culture and sputum culture results, culture showed no growth after 24 hours. Continue cefepime 2 g every 12 hours for empiric and about coverage. 16. We will remove his atrial and ventricular epicardial pacemaker wires today, bed rest for 1 hour post pacemaker wire removal. 17. More recommendations to follow based on patient's clinical course. Time with Patient: Greater than 30
--- NOTE | 2022-05-01 09:50 | CA ---
Transthoracic Echo Report Name: Derek Arazia Age: 72 Gender: M : 1950 Exam Date: 05/01/2022 08:03 Exam Location: [facility] Ht (in): 69 Wt (lb): 218 Ordering Physician: Herve Retana Attending/Referring Phys: Mazin COOPER Packaging Technician Veronica Reyes, RDCAROLINA Procedure CPT: Indications: evaluate LV function Cardiac Hx: Pt is S/P cabgx3, mv repair, pfo closure. Limited echo for lv function. Technical Quality: Contrast 1: Total Dose (mL): Contrast 2: Total Dose (mL): MEASUREMENTS (Male / Female) Normal Values DOPPLER AV Peak Velocity 338.4 cm/s AV Peak Gradient 45.8 mmHg AV Mean Velocity 203.1 cm/s AV Mean Gradient 20.0 mmHg AV Velocity Time Integral 56.2 cm MV Peak Velocity 247.3 cm/s MV Peak Gradient 24.5 mmHg MV Mean Velocity 121.8 cm/s MV Mean Gradient 7.5 mmHg MV Velocity Time Integral 58.4 cm MV Area PHT 1.9 cm??? MV Deceleration Time 421.4 ms FINDINGS Left Ventricle Left ventricular ejection fraction is estimated at 45-50% with atypical septal motion.. Right Ventricle Right Atrium Left Atrium Mitral Valve Mitral valve repair is evident with restriction of mitral valve leaflet motion. There is mild to moderate regurgitation with 2 jets. Aortic Valve Moderate aortic stenosis with a peak gradient of 46 mmHg and a mean gradient of 20mmHg. Tricuspid Valve Pulmonic Valve Pericardium Normal pericardium. Aorta CONCLUSIONS Fair left ventricle systolic function with estimated ejection fraction of 45% with atypical septal motion. There is mild to moderate mitral regurgitation with 2 jets. Mitral valve repair is evident. There is also moderate aortic stenosis. No significant pericardial effusion Previewed by: Dr. Leonora Rolon MD (Electronically Signed) Final Date: 01 May 2022 09:49
--- NOTE | 2022-05-01 11:26 | P.PN ---
Subjective Progress Note Date: 05/01/22 This is a pleasant 72-year-old male patient with a known history of osteoarthritis was multiple orthopedic surgeries, diabetes mellitus, hyperlipidemia, chronic tobacco dependence, paroxysmal atrial fibrillation. He was recently found to have coronary artery disease with a total occlusion of the RCA with collateral circulation, obtuse marginal with 99% stenosis and mild LAD disease. His ejection fraction is 45%. He was also found to have severe mitral regurgitation, moderate central tricuspid regurgitation as well as evidence of a PFO with [id number] shunt. He was recommended coronary artery bypass grafting and valvular repair. He was brought in to the hospital yesterday 04/20/2022 for an elective procedure. He did undergo mitral valve repair, coronary bypass grafting 3 with an SVG to the first diagonal, obtuse marginal and posterior descending coronary arteries, closure of a PFO, modified Castanon-Maze procedure and litigation of the left atrial appendage. He was successfully extubated within the 6 hour protocol. He is seen today in consultation in the intensive care unit. He is ready sitting up in a chair. Awake and alert in no acute distress. He is maintaining O2 saturation in the 90s on 3 L/m per nasal cannula. He has insulin drip at 5 units per hour. Lactated Ringer's at 20 miles per hour. He initially was on epinephrine drip that has been discontinued. He did receive 2 units of packed red blood cells, 2 units of fresh frozen plasma and 1 unit of platelets. White count 8.9. Hemoglobin 7.7. Platelets 139,000. Sodium 142. Potassium 5.5. Chloride 111. Bicarb 23. BUN 32. Creatinine 1.73. Glucose 125. AST 1:30. ALT 37. Magnesium 3.6. Mean arterial blood pressure in the 70s. PA pressures 50/18. CVP 12. Cardiac output 6.5. Cardiac index 3.1. He is on bronchodilators. Working well with the incentive spirometer. Chest x-ray reveals scattered opacities bilaterally. No evidence of pleural effusion, focal consolidation or pneumothorax. Medias tinal 2, left pleural chest tube in place. He is continued on oral amiodarone. Heparin for DVT prophylaxis. The patient is seen today in 04/21/2022 in follow-up in the intensive care unit. He is currently sitting up in a recliner at the bedside. Maintaining O2 saturations on 5 L/m per nasal cannula. He did require BiPAP support last evening and was placed on 14/ and 100% FiO2 eventually decreased to 40%. He is currently on a Lasix drip at 5 mg per hour. Dopamine drip at 2 mcg/kg/m. Ca rdiac output 4.6. Cardiac index 2.2. He is dual pacing. He has normal saline at 20 ML's per hour. He is unemployed about 750 MLS on the incentive spirometer. His x-ray continues to show cardiomegaly with ongoing mild pulmonary vascular congestion. Increasing patchy bibasilar opacities/atelecta sis. Right IJ Burghill-Varghese catheter remains in place. He is sternal and left sided chest tubes remain in place. No pneumothorax. White count 9.6. Hemoglobin 7.3. Platelets 144. Sodium 132. Potassium 5.4. Bicarb 21. BUN 41. Creatinine 2.53. Glucose 175. AST 1309. ALT 547. Albumin 3.6. The patient does have a cyst the year smoking history. He remains on DuoNeb inhalations 4 times a day and when necessary. Heparin for DVT prophylaxis. Postoperative day #11Mitral valve repair with 28 mm physio-2 ring, CABG 3 with saphenous vein grafts to first diagonal, obtuse marginal, posterior descending coronary arteries, closure of PFO, endovascular vein harvest, modified Castanon maze procedure with full left-sided lesion set and ligation of the left atrial appendage, SCOTT by anesthesia. Protamine reaction intraoperative Reevaluated today on 04/30/22, patient is sitting up in a bedside chair, he is awake alert oriented 3, he does complain of shortness of breath, remind you that the patient does have history of severe underlying COPD, FEV1 is normally just over 1 L, 42% of the predicted value. Patient is on bronchodilators for his underlying COPD. Chest x-ray is showing small pleural effusions, not large enough to consider thoracentesis. Remains on diuretics in the form of Bumex. Patient is also on metoprolol 25 twice a day and on amiodarone. Patient does not seem to be in distress, he is on 3 L nasal cannula. WBC count today 17.8 hemoglobin is 7.1, electrolytes are normal BUN is 84 creatinine 1.83, baseline is 1.43. The patient is seen today 05/01/2022 in follow-up in the intensive care unit. He is currently sitting up in a chair at the bedside. Awake and alert in no acute distress. Feeling a bit stronger today compared to yesterday. He is maintaining good O2 saturations in the mid 90s on 2 L/m per nasal cannula. He is afebrile. Hemodynamically stable. He did undergo a left-sided thoracentesis yesterday with approximately 850 mL of slightly serosanguineous fluid removed. This was transudate with the protein of 1.8 and an LDH 175. Chest x-ray shows improved aeration. No pneumothorax post procedure. He is continuing to work with the incentive spirometer. Follow-up limited echocardiogram revealed that ejection fraction of 45-50% with atypical septal motion. Evidence of mitral valve repair. Moderate aortic stenosis with a mean gradient 20 mmHg. No evidence of pericardial effusion. He is status post 2 units of packed red blood cells, 2 units of fresh frozen plasma and 1 unit of platelets this admission. White count 15.3. Hemoglobin 7.2. Platelets 305. Sodium 131. Potassium 4.0. Bicarb 32. BUN 79. Creatinine 1.57. Glucose 143. AST 43. ALT 131. Albumin 3.2. He remains on bronchodilators, antibiotics in the form of cefepime. Heparin for DVT prophylaxis. Continued on amiodarone. Currently in a regular rhythm. Objective - Vital Signs Vital signs: Vital Signs Temp 98.2 F 05/01/22 08:00 Pulse 67 05/01/22 10:00 Resp 22 05/01/22 10:00 BP 118/52 05/01/22 10:00 Pulse Ox 96 05/01/22 10:00 FiO2 100 04/22/22 16:00 Intake & Output 04/30/22 05/01/22 05/01/22 18:59 06:59 18:59 Intake Total 820 250 590 Output Total 3235 3035 975 Balance -2362 -7161 -718 Weight 99 kg Intake: Intake, IV Titration 100 100 Amount Cefepime 2 gm In Sodium 100 100 Chloride 0.9% 100 ml @ 25 mls/hr IVPB Q12HR [facility] Rx #:[id number] Oral 720 250 490 Output: Drainage 860 thoracentesis 860 Urine 2375 3035 975 Other: Voiding Method Indwelling Catheter Indwelling Catheter Indwelling Catheter # Bowel Movements 1 ABP, PAP, CO, CI - Last Documented Arterial Blood Pressure 137/47 Pulmonary Artery Pressure 67/18 Cardiac Output 5.8 Cardiac Index 2.8 - Exam GENERAL EXAM: Alert, pleasant 72-year-old male,on 3 L nasal cannula, up in a chair at the bedside, fairly comfortable in no apparent distress. HEAD: Normocephalic. EYES: Normal reaction of pupils, equal size. NOSE: Clear with pink turbinates. THROAT: No erythema or exudates. NECK: No masses, no JVD. CHEST: Surgical dressing dry and intact. Heart Hugger in place. LUNGS: Equal air entry with end expiratory wheeze, basilar crackles. CVS: S1 and S2 normal with no audible murmur, regular rhythm. ABDOMEN: No hepatosplenomegaly, normal bowel sounds, no guarding or rigidity. SPINE: No scoliosis or deformity SKIN: No rashes CENTRAL NERVOUS SYSTEM: No focal deficits, tone is normal in all 4 extremities. EXTREMITIES: There is no peripheral edema. No clubbing, no cyanosis. Peripheral pulses are intact. - Labs CBC & Chem 7: 05/01/22 06:33 05/01/22 06:33 Labs: Abnormal Lab Results - Last 24 Hours (Table) 04/30/22 04/30/22 04/30/22 Range/Units 11:53 17:05 21:54 WBC (3.8-10.6) k/uL RBC (4.30-5.90) m/uL Hgb (13.0-17.5) gm/dL Hct (39.0-53.0) % Neutrophils # (1.3-7.7) k/uL Lymphocytes # (1.0-4.8) k/uL Monocytes # (0-1.0) k/uL Sodium (137-145) mmol/L Chloride (98-107) mmol/L Carbon Dioxide (22-30) mmol/L BUN (9-20) mg/dL Creatinine (0.66-1.25) mg/dL Glucose (74-99) mg/dL POC Glucose (mg/dL) 252 H 184 H 203 H (70-110) mg/dL Calcium (8.4-10.2) mg/dL ALT (4-49) U/L Total Protein (6.3-8.2) g/dL Albumin (3.5-5.0) g/dL 05/01/22 05/01/22 05/01/22 Range/Units 05:43 06:33 06:33 WBC 15.3 H (3.8-10.6) k/uL RBC 2.36 L (4.30-5.90) m/uL Hgb 7.2 L (13.0-17.5) gm/dL Hct 23.2 L (39.0-53.0) % Neutrophils # 13.1 H (1.3-7.7) k/uL Lymphocytes # 0.5 L (1.0-4.8) k/uL Monocytes # 1.2 H (0-1.0) k/uL Sodium 131 L (137-145) mmol/L Chloride 93 L (98-107) mmol/L Carbon Dioxide 32 H (22-30) mmol/L BUN 79 H (9-20) mg/dL Creatinine 1.57 H (0.66-1.25) mg/dL Glucose 143 H (74-99) mg/dL POC Glucose (mg/dL) 177 H (70-110) mg/dL Calcium 8.2 L (8.4-10.2) mg/dL ALT 131 H (4-49) U/L Total Protein 5.4 L (6.3-8.2) g/dL Albumin 3.2 L (3.5-5.0) g/dL Microbiology - Last 24 Hours (Table) 04/30/22 16:45 Gram Stain - Preliminary Pleural Fluid Body Fluid Culture - Preliminary 04/30/22 16:45 Fungal Culture - Preliminary Pleural Fluid 04/30/22 16:45 Acid Fast Bacilli Culture - Preliminary Pleural Fluid 04/29/22 23:30 Gram Stain - Preliminary Sputum Sputum Culture - Preliminary 04/29/22 09:27 Blood Culture - Preliminary Blood No Growth after 24 hours 04/29/22 09:22 Blood Culture - Preliminary Blood No Growth after 24 hours Assessment and Plan Assessment: Coronary artery disease with valvular heart disease. Status post mitral valve repair, coronary bypass grafting 3 with an SVG to the first diagonal, obtuse marginal and posterior descending coronary arteries, closure of a PFO, modified Castanon-Maze procedure and litigation of the left atrial appendage. Postoperative day #12. Acute hypoxemic respiratory failure secondary to above, expected outcome of surgery, currently on 3 L nasal cannula Left-sided pleural effusion, not uncommon post open heart surgery, status post thoracentesis with approximately 850 of serosanguineous fluid removed. Analysis resembles transudate with a protein of 1.8 and a LDH of 175 Paroxysmal atrial fibrillation, regular rhythm, maintained on Cordarone Chronic and ongoing tobacco dependence Chronic obstructive pulmonary disease, FEV1 value of 52% of predicted, maintained on Trelegy and DuoNeb inhalations in the outpatient setting Acute on chronic anemia, status post 2 units packed red blood cells is in remission. Current hemoglobin 7.3 Osteoarthritis at multiple orthopedic surgeries Diabetes mellitus Hyperlipidemia Plan: The patient was seen and evaluated Chest x-ray, labs and medications reviewed Encouraged increased use of the incentive spirometer Educated regarding the importance of complete smoking cessation Continue DuoNeb inhalations, Symbicort Heparin for DVT prophylaxis Titrate down the FiO2 as tolerated Increase his activity as tolerated We will continue to follow I have personally seen and examined the patient, performed the documentation and the assessment and plan as written. Number of minutes spent on the visit: 10.
--- NOTE | 2022-05-01 11:29 | US ---
EXAMINATION TYPE: US chest DATE OF EXAM: 04/30/2022 COMPARISON: Same day chest x-ray CLINICAL HISTORY: Left pleural effusion. TECHNIQUE: Targeted ultrasound of the posterior lower left hemithorax EXAM MEASUREMENTS: Left Pleural Effusion pocket size: 9.4 cm Left skin surface to fluid distance: 3.5 cm Left side marked for possible thoracentesis outside the dept. Pulmonologists are able to review the images in the patient?s EMR. [id number] size left pleural effusion on images saved correlates with same day x-ray IMPRESSIONS: As above.
[2022-05-01 11:57] LABS: Glucose,Whole Blood 251 mg/dL (70-110)
--- NOTE | 2022-05-01 12:39 | PN ---
PROGRESS NOTE SUBJECTIVE: This is a 72-year-old gentleman, who underwent bypass surgery with mitral valve repair and PFO closure on April 19 and has had multiple problems and recovery including renal insufficiency, hypertension, respiratory failure. The patient is feeling better compared to yesterday. Remains in sinus rhythm. Denies any chest pain, but continues to have shortness of breath with very minimal activity. MEDICATIONS: He is currently on: 1. Amiodarone 200 b.i.d. 2. Aspirin. 3. Lipitor. 4. Bumex 2 mg IV q.12. 5. Lopressor 25 b.i.d. OBJECTIVE: VITAL SIGNS: Heart rate is 67 beats per minute, blood pressure is 118/50, respiratory rate is 18. CHEST: Reveals diminished air entry bilaterally with occasional rhonchi. HEART: Reveals first and second heart sounds. No gallop. Has a systolic murmur at the apex. ABDOMEN: Soft. EXTREMITIES: Reveals bilateral [id number] edema. IMAGING: Repeat echocardiogram shows an ejection fraction of 45%, [id number] mitral regurgitation and moderate aortic stenosis. ASSESSMENT: 1. Coronary artery disease, status post coronary artery bypass graft. 2. Mitral regurgitation, status post mitral valve repair. 3. Chronic systolic heart failure. 4. Renal failure. PLAN: The patient will be continued on Bumex. MMODL / IJN: [id number] /
--- NOTE | 2022-05-01 14:50 | P.PN ---
Progress Note - Text Progress Note Date: 05/01/22 Patient is a pleasant 72-year-old male came in the for elective mitral valve repair, CABG x 3 vessel, maze procedure, PFO closure. Patient is extubated sitting in the chair patient still has a Julian-Varghese catheter, CVP of around 12, cardiac index 3.1 patient creatinine went up to 1.70 resulting elevated potassium of 5.5 patient is off pressor support, off nitro drip patient still has 2 mediastinal and one left-sided chest tube. 04/21/2022 Patient is evaluated in ICU today, sitting up in chair. He is postoperative day #2 for elective mitral valve repair, hematocrit bypass grafting maze procedure and PFO closure. He is on BiPAP with fio2 of 40% Continues with mediastinal/left pleural chest tubes. Continue with indwelling catheter. Received dose of IV albumin yesterday afternoon. Chest xray today showing ongoing mild pulmonary vascular congestion, increasing patchy bibasilar opacities, atelectasis vs. pulmonary edema. Currently on lasix gtt at 10mls/hr, continues on dopamine gtt at 3.68 mls/hr. Continues on insulin gtt and blood glucose remains in the 140 to 130s. Labs today showing sodium 132, potassium 6.1 improved to 5.4, BUN 41, creatinine 2.53, elevated liver enzymes. Hgb 7.3. 04/22/2022 Patient continues to be monitored closely in intensive care unit, he is postoperative day #3 for elective mitral valve repair, maze procedure, PFO closure. Managed by primary team. He had limited echocardiogram completed showing EF 45 to 50%, mild to moderate MR, moderate pulmonary hypertension with moderate TR. Chest xray today shows slight improvement in pulmonary vascular congestion. Maintained on lasix gtt at 10mls/hr, dopamine gtt, Continues with 2 mediastinal chest tubes. Continues with indwelling catheter. Continues with right IJ swan/cordis, right radial arterial line. He has been weaned off BiPAP currently on high flow cannula at 15L. He has been tolerating some diet. Continues on insulin gtt which will continue until his diet stabilizes. Current glucose in the 140s. Creatinine today 3.14. April 23: [facility]. In a recliner. Tired. Little oral intake. Nasal cannula. Drips include IV dopamine and Lasix. Some shortness of breath. Mooney catheter. 04/24/2022: ICU. Up. 4 L nasal cannula. Did eat better. Edema present. On the Lasix drip 5 mg an hour. Some improvement in creatinine. 04/25/2022: ICU. Up in a recliner. Eating better. at the bedside. Edema present. Off Lasix drip. Feeling better. Creatinine coming down. LFTs improving. Home dose of Victoza was started 04/26/2022: ICU. Up in a recliner. 4 L nasal cannula. Eating about 50%. Accu-Cheks noted. 04/27/2022: ICU: Patient went into atrial fibrillation overnight. Put on oral amiodarone and Lopressor per CTS.. Some worsening of shortness of breath. Placed on IV Lasix. Eating some. Up in a recliner. 04/28/2022: ICU. Patient received Lopressor today for the A. fib. Patient went down into sinus rhythm. Blood pressure also dropped her was 70 systolic. Oxygen increased to 4 L. Short of breath. Patient did walk 10-12 steps up to the door. Eating fair. Lower extremity edema edema present. Up in a chair. Tired. 04/29/2022: ICU. Short of breath. 3 L nasal cannula. Eating fair. Edema pre sent. Getting Bumex. Getting IV albumin and IV calcium. Using incentive spirometry. Up in a chair. Discussed with at the bedside. Increasing white count, infiltrated urine chest x-ray suggestive of pneumonia. Started on IV cefepime 04/30/2022: ICU. Remains short of breath. 3 L nasal cannula. Started on IV cefepime yesterday.. Oral intake fair. Edema present. Remains on Bumex. Fo sher catheter. Discussed with patient and at the bedside. Discussed with Dr. Cortez from cardiothoracic surgery. 05/01/2022: ICU. Zaroxolyn was added. Good diuresis. Breathing better. On IV cefepime. Left paracentesis is done. 850 mL removed. Oral intake fair. Breathing a bit better. Telemetry shows sinus rhythm. 2 L nasal cannula. at the bedside. Will DC Actos. Even though smaller dose. Given CHF renal failure. Increase Lantus to 12 units. Active Medications Acetaminophen (Acetaminophen Tab 325 Mg Tab) 650 mg PO Q6HR PRN PRN Reason: Fever and/ or Pain Last Admin: 05/01/22 14:20 Dose: 650 mg Albuterol/Ipratropium (Ipratropium-Albuterol 3 Ml Neb) 3 ml INHALATION RT-Q2H PRN PRN Reason: Shortness Of Breath Or Wheezing Last Admin: 04/29/22 23:30 Dose: 3 ml Albuterol/Ipratropium (Ipratropium-Albuterol 3 Ml Neb) 3 ml INHALATION RT-QID [facility] Last Admin: 05/01/22 11:57 Dose: 3 ml Amiodarone HCl (Amiodarone 200 Mg Tab) 200 mg PO BID [facility] Last Admin: 05/01/22 08:23 Dose: 200 mg Ascorbic Acid (Ascorbic Acid 500 Mg Tab) 500 mg PO DAILY [facility] Last Admin: 05/01/22 08:23 Dose: 500 mg Aspirin (Aspirin 325 Mg Tab) 325 mg PO DAILY [facility] Last Admin: 05/01/22 08:23 Dose: 325 mg Atorvastatin Calcium (Atorvastatin 40 Mg Tab) 40 mg PO DAILY [facility] Last Admin: 05/01/22 08:23 Dose: 40 mg Benzocaine/Menthol (Benzocaine/Menthol Lozeng 1 Each Lozenge) 1 each MUCOUS MEM Q2HR PRN PRN Reason: Sore Throat Last Admin: 05/01/22 05:47 Dose: 1 each Bisacodyl (Bisacodyl 10 Mg Supp) 10 mg RECTAL DAILY PRN PRN Reason: Constipation Last Admin: 04/30/22 10:13 Dose: 10 mg Budesonide/Formoterol Fumarate (Symbicort 160-4.5 Mcg Inhaler) 2 puff INHALATION RT-BID [facility] Last Admin: 05/01/22 07:53 Dose: 2 puff Bumetanide (Bumetanide 0.25 Mg/Ml 10 Ml Vial) 2 mg IV Q12H [facility] Last Admin: 05/01/22 14:21 Dose: 2 mg Clopidogrel Bisulfate (Clopidogrel 75 Mg Tab) 75 mg PO DAILY [facility] Last Admin: 05/01/22 08:23 Dose: 75 mg Dextrose/Water (Dextrose 50% Syringe 50 Ml) 25 ml IVP PER PROTOCOL PRN; Protocol PRN Reason: Hypoglycemia Dextrose/Water (Dextrose 50% Syringe 50 Ml) 50 ml IVP PER PROTOCOL PRN; Protocol PRN Reason: Hypoglycemia Dextrose/Water (Dextrose 50% Syringe 50 Ml) 25 ml IVP PER PROTOCOL PRN; Protocol PRN Reason: Hypoglycemia Dextrose/Water (Dextrose 50% Syringe 50 Ml) 50 ml IVP PER PROTOCOL PRN; Pro tocol PRN Reason: Hypoglycemia Ferrous Sulfate (Ferrous Sulfate 325 Mg Tab) 325 mg PO BID [facility] Last Admin: 05/01/22 08:23 Dose: 325 mg Heparin Sodium (Porcine) (Heparin Sodium,Porcine/Pf 5,000 Unit/0.5 Ml Syringe) 5,000 unit SQ Q8HR [facility] Last Admin: 05/01/22 08:27 Dose: 5,000 unit Calcium Gluconate/Sodium (Chloride 2 gm/ IV Solution) 100 mls @ 100 mls/hr IVPB ONCE PRN PRN Reason: Ionized Calcium less than 4.4 Stop: 05/19/22 23:00 Cefepime HCl 2 gm/ Sodium (Chloride) 100 mls @ 25 mls/hr IVPB Q12HR [facility]; Protocol Stop: 05/04/22 21:01 Last Admin: 05/01/22 08:22 Dose: 25 mls/hr Insulin Aspart (Insulin Aspart (Novolog) 100 Unit/Ml Vial) 0 unit SQ [facility]; Protocol Last Admin: 05/01/22 12:11 Dose: 6 unit Insulin Detemir (Insulin Detemir (Levemir) 100 Unit/Ml Syr) 12 unit SQ [facility] Isosorbide Mononitrate (Isosorbide Mononitrate Er 15 Mg Tab) 15 mg PO DAILY [facility] Last Admin: 05/01/22 08:23 Dose: 15 mg Magnesium Hydroxide (Magnesium Hydroxide 2,400 Mg/10 Ml Cup) 2,400 mg PO BID PRN PRN Reason: Constipation Last Admin: 04/22/22 07:08 Dose: 2,400 mg Metoprolol Tartrate (Metoprolol Tartrate 25 Mg Tab) 25 mg PO BID [facility] Last Admin: 05/01/22 08:23 Dose: 25 mg Miscellaneous Information (Potassium Replacement Protocol 1 Each Misc) 1 each MISCELLANE DAILY PRN; Protocol PRN Reason: Per Protocol Miscellaneous Information (Magnesium Replacement Protocol 1 Each Misc) 1 each MISCELLANE DAILY PRN; Protocol PRN Reason: Per Protocol Non-Formulary Medication (Non Formulary Drug) 1 each SQ DAILY [facility] Last Admin: 05/01/22 08:27 Dose: 1 each Ondansetron HCl (Ondansetron 4 Mg/2 Ml Vial) 4 mg IVP Q6HR PRN PRN Reason: Nausea And Vomiting Last Admin: 04/27/22 09:22 Dose: 4 mg Senna/Docusate Sodium (Sennosides-Docusate Sodium 1 Each Tab) 2 each PO HS [facility] Last Admin: 04/30/22 20:03 Dose: 2 each Sodium Chloride (Sodium Chloride 0.9% Flush 10 Ml Syringe) 10 ml IV BID [facility] Last Admin: 05/01/22 08:24 Dose: 10 ml Tamsulosin HCl (Tamsulosin 0.4 Mg Cap.Er.24h) 0.4 mg PO PC-BRKFST [facility] Last Admin: 05/01/22 08:27 Dose: 0.4 mg On examination: VITAL SIGNS: 98.2, 61, 22, 94/48, 96% on 2 L GENERAL APPEARANCE: In bed tired, short of breath HEENT: Normal external appearance of nose and ear. Oral cavity normal EYES: Pupils equal. Conjunctiva normal. NECK: JVD not raised. Mass not palpable. RESPIRATORY: Respiratory effort increased. Lungs diminished breath sounds. CARDIOVASCULAR: First and second sounds normal. Edema present ABDOMEN: Soft. Liver and spleen not palpable. No tenderness. No mass palpable. Mooney catheter PSYCHIATRY: AO 3, mood and affect normal INVESTIGATIONS, reviewed in the clinical context: Limited 2-D echocardiogram [May 01]: EF 45%. [id number] MR, moderate aortic stenosis 05/01/2022: WBC 15.3 hemoglobin 7.2 platelets 305 potassium 4. 39 creatinine 1.57 04/30/2022: WBC 17.81 7.14.6 BUN [address] chest [April 29]: Moderate partial obliterate right pleural effusion, left pleural effusion, cardiomegaly. , 04/29/2022: WBC 18.5 hemoglobin 7.6 platelets 272 potassium 4.9 creatinine 1.98 CRP 5.6 procalcitonin 0.7 to, AST 62, ALT 213 04/28/2022: WBC 15 hemoglobin 7.1 potassium 4.7 BUN 71 creatinine 1.50 AST 90 AST 285 04/27/2022: WBC 10.5 hemoglobin 7.3 platelets 167 potassium 4.1 BUN 75 creatinine 1.35 AST was 67 ALT 378 04/26/2022: WBC 9.1 hemoglobin 7.4 platelets 101 potassium 4.6 BUN 83 creatinine 1.5 for AST 266 ALT 477 04/25/2022: WBC 12.4 hemoglobin 7.2 potassium 4.5 BUN 85 creatinine 2.12 AST 503 ALT 619 04/24/2022: WBC 9.2 hemoglobin 7.1 platelets 122 potassium 5.1 BUN 77 creatinine 2.97 AST 1270 ALT 1038 WBC 8.2 hemoglobin 7.5 platelets 111 sodium 135 progression 6 BUN 67 creatinine 3.43 AST 3595 ALT 1512 Limited 2-D echocardiogram: EF 45-50%. Inferior wall hypokinesis. Moderate MR. Moderate pulmonary hypertension with moderate TR. Assessment and plan -Acute on chronic congestive heart exacerbation from systolic/diastolic dysfunction EF 45-50%:, precipitated by A. fib: Slow to respond IV Bumex 2 mg every 12 -Suspect pneumonia, patient short of breath, infiltrate on chest x-ray, increasing white count and procalcitonin: IV cefepime -Acute hypoxic respiratory failure from pulmonary edema: 3 L nasal cannula -Diabetes Mellitus type 2 with hyperglycemia, Victoza , Actos-discontinue. Levemir 12 units daily at bedtime -Paroxysmal atrial fibrillation status post modified Castanon-Maze procedure,: With rapid ventricular rate: Now - sinus rhythm amiodarone ,Lopressor. -acute renal failure on chronic kidney disease stage II with renal failure is probably prerenal azotemia, cardiorenal syndrome.: Worsening Creatinine peaked at 3.43. Creatinine slowly coming down -hyperkalemia secondary to acute renal failure: Corrected Received Lokelma. Renal diet -Acute hepatitis, likely ischemic: Improving Follow closely. GI services not available in the hospital. Hold any hepatic offensive medications. Follow LFTs patient as patient started back on amiodarone -Acute COPD exacerbation, and a smoker DuoNeb. Symbicort -Hyperlipidemia Hold statins, because of elevated LFTs - coronary artery disease with previous PCI Aspirin, Lasix, Imdur, Lopressor -Acute postprocedure blood loss anemia as expected from surgery Patient receive 2 units of PRBC, follow CBC -Chronic nicotine dependence -Sacral decubitus ulcer, stage II Local care - post mitral valve failure, status post CABG, status post PFO closure: Currently [id number] MR -Moderate aortic stenosis -Moderate secondary probably hypertension 3 L nasal cannula. IV cefepime , IV Bumex. Good diuresis with IV Zaroxolyn. Discussed with patient and . (blood pressure running on the lower side. Hypoalbuminemic. Hemoglobin globin 7.2. Symptomatic. Should benefit from a unit of blood. Informed [employer]/ [facility] cardiothoracic surgery team)..
[2022-05-01 16:31] LABS: Glucose,Whole Blood 213 mg/dL (70-110)
[2022-05-01] MEDS: SENNOSIDES-DOCUSATE SODIUM 1 EACH TAB PO SCH (20:08)
[2022-05-01 20:18] LABS: Glucose,Whole Blood 194 mg/dL (70-110)
[2022-05-01] MEDS: INSULIN DETEMIR (LEVEMIR) 100 UNIT/ML SYR SQ SCH (20:52)
[2022-05-02] MEDS: BUMETANIDE 0.25 MG/ML 10 ML VIAL IV SCH ×2 (02:03→08:19)
[2022-05-02 06:07] LABS: Basophils % (A) 0 %; Eosinophils # (A) 0.2 k/uL (0-0.7); Eosinophils % (A) 1 %; HCT 24.5 % (39.0-53.0); HGB 7.4 gm/dL (13.0-17.5); Hypochromasia Marked; Lymphocytes # (A) 0.6 k/uL (1.0-4.8); Lymphocytes % (A) 3 %; MCH 29.4 pg (25.0-35.0); MCHC 30.2 g/dL (31.0-37.0); MCV 97.2 fL (80.0-100.0); Mean Platelet Volume 8.8; Monocytes # (A) 1.3 k/uL (0-1.0); Monocytes % (A) 8 %; Neutrophils # (A) 14.6 k/uL (1.3-7.7); Neutrophils % (A) 86 %; Platelet Count 349 k/uL (150-450); Poikilocytosis Slight; RBC 2.52 m/uL (4.30-5.90); RDW 15.4 % (11.5-15.5); WBC 16.9 k/uL (3.8-10.6)
[2022-05-02 06:32] LABS: Albumin 3.2 g/dL (3.5-5.0); Calcium 8.4 mg/dL (8.4-10.2); Magnesium 2.2 mg/dL (1.6-2.3); Potassium 3.7 mmol/L (3.5-5.1); Total Bilirubin 1.2 mg/dL (0.2-1.3); Total Protein 5.5 g/dL (6.3-8.2)
[2022-05-02] MEDS ORDERED: POTASSIUM CHLORIDE ER 20 MEQ TAB.ER PO SCH (06:45)
[2022-05-02 06:53] LABS: Glucose,Whole Blood 181 mg/dL (70-110)
[2022-05-02] MEDS: INSULIN ASPART (NovoLOG) 100 UNIT/ML VIAL SQ SCH ×4 (06:57→20:43)
--- NOTE | 2022-05-02 07:36 | P.PN ---
Subjective Progress Note Date: 05/02/22 Principal diagnosis: Severe mitral valve regurgitation, coronary artery disease, paroxysmal atrial fibrillation, patent foramen ovale, tricuspid regurgitation, chronic systolic congestive heart failure. Past medical history significant for hypertension, hyperlipidemia, coronary artery disease with history of previous PCI, non-ST elevated myocardial infarction in November 2021, ischemic cardiomyopathy with EF 40- 45%, right internal carotid stenosis 50-79%, renal insufficiency, anemia with history of GI bleed in November 2021 S/P transfusion PRBCs, diabetes mellitus type 2, osteoarthritis, severe COPD, chronic ongoing nicotine dependence, remote history of pneumonia, chronic low back pain and hearing disorder. Nasal swab positive for MSSA preoperative. POD #13 Mitral valve repair with 28 mm physio-2 ring, CABG 3 with saphenous vein grafts to first diagonal, obtuse marginal, posterior descending coronary arteries, closure of PFO, endovascular vein harvest, modified Castanon maze procedure with full left-sided lesion set and ligation of the left atrial appendage, SCOTT by anesthesia. Protamine reaction intraoperative Postoperative acute blood loss anemia, expected given his history of anemia, hemodilution and cardiopulmonary bypass. Acute on chronic kidney failure, likely from hypotension from intraoperative protamine reaction. Elevated transaminases, likely from hypotension from intraoperative protamine reaction. Left pleural effusion, status post day #1 left-sided thoracentesis with 850 mL of fluid drained by Dr. Aguilar The patient was seen and examined in follow-up today 05/02/2022 at his bedside in the intensive care unit. He reports his breathing feels improved today in regards to his breathing and is less short of breath with sitting and with activity. Still complaining of some surgical type pain to his sternal incision, although there is no redness or drainage to the sternal incision and his sternum is stable. He remains hemodynamically stable and is currently on no inotropic of pressure support. Oxygen saturation are 93% on room air and he is achieving 2457-5428 mL on his incentive spirometry with much encouragement. He reports he was up ambulating in the intensive care unit hallway yesterday with standby assistance from nursing and therapy staff, and tolerated well. Bedside telemetry showing normal sinus rhythm with bundle branch block heart rate 66 BPM. His atrial and ventricular epicardial pacemaker wires were removed yesterday without incident. Laboratory results today show a WBC count of 16.9, hemoglobin 7.4, hematocrit 24.5, platelets 349, sodium 135, potassium 3.7, chloride 91, CO2 36, BUN 77, creatinine 1.54, glucose 148, calcium 8.4, magnesium 2.2, AST 44 and ALT 111. He remains on cefepime 2 g IV piggyback every 12 hours for her catabolic coverage. He remains afebrile the last 24 hours. Chest x-ray was reviewed. Preliminary Gram stain sputum shows many normal respiratory fernanda and his blood cultures show no growth after 48 hours. Mooney catheter remains in place for urinary retention and accurate I's and O's. He continues on Bumex 2 mg IV due to off hours and was given a dose of Zaroxolyn 2.5 mg by mouth yesterday 1. Urine output has been 200-300 mL per hour. He remains on amiodarone 200 mg by mouth twice a day and Metoprolol tartrate 25 mg by mouth twice a day. Objective - Vital Signs Vital signs: Vital Signs Temp 98.3 F 05/02/22 04:00 Pulse 69 05/02/22 06:00 Resp 27 H 05/02/22 06:00 BP 112/48 05/02/22 06:00 Pulse Ox 96 05/02/22 06:00 FiO2 100 04/22/22 16:00 Intake & Output 05/01/22 05/02/22 05/02/22 18:59 06:59 18:59 Intake Total 1070 350 Output Total 2190 3155 Balance -1120 -2805 Weight 96.4 kg Intake: Intake, IV Titration 100 100 Amount Cefepime 2 gm In Sodium 100 100 Chloride 0.9% 100 ml @ 25 mls/hr IVPB Q12HR [facility] Rx #:[id number] Oral 970 250 Output: Urine 2190 3155 Other: Voiding Method Indwelling Catheter Indwelling Catheter ABP, PAP, CO, CI - Last Documented Arterial Blood Pressure 137/47 Pulmonary Artery Pressure 67/18 Cardiac Output 5.8 Cardiac Index 2.8 - Exam CONSTITUTIONAL: Sitting up to the bedside chair in the intensive care unit, appears comfortable, cooperative, no apparent acute distress. HEENT: Neck is supple, no JVD, no lymphadenopathy. RESPIRATORY: Lungs sounds essentially clear throughout, diminished to his bilateral bases. Respirations are symmetrical and nonlabored. Currently on room air with oxygen saturations 93%. Able to achieve 7832-1711 mL on incentive spirometry. Strong cough. CARDIOVASCULAR: Regular rhythm and rate. S1 and S2 present, negative for S3, gallop or murmur. Sternum is stable. Palpable peripheral pulses bilaterally, +1 to +2 edema to his bilateral lower extremities. No calf pain or tenderness noted. Heart hugger in place with patient demonstrating appropriate use. Knee- high RAFAEL hose and sequential compression devices in place to his bilateral lower extremities. Bedside telemetry showing normal sinus rhythm with BBB heart rate 66 BPM. GASTROINTESTINAL: Abdomen soft, nontender, nondistended. Active bowel sounds present 4 quadrants. Tolerating diet. Passing flatus. No guarding or rigidity. Bowel movement on 04/30/2022. GENITOURINARY: Mooney catheter in place for accurate I's and O's. Urine output 2300 mL in the last 8 hours. INTEGUMENTARY: Skin is warm and dry with no evidence of clubbing or cyanosis. Midline sternal incision clean dry and well approximated, covered with dry intact dressing. Bilateral lower extremity EVH sites well approximated without redness or drainage. Erythema to his buttocks, optifoam dressing clean, dry and intact. MUSKULOSKELETAL: Able to move all extremities, strength equal bilaterally, generalized weakness. PSYCHIATRIC: Alert and oriented to person place and time, appropriate affect, intact judgment and insight. - Allied health notes Allied health notes reviewed: nursing - Labs CBC & Chem 7: 05/02/22 05:35 05/02/22 05:35 Labs: Abnormal Lab Results - Last 24 Hours (Table) 05/01/22 05/01/22 05/01/22 Range/Units 06:33 06:33 11:56 WBC 15.3 H (3.8-10.6) k/uL RBC 2.36 L (4.30-5.90) m/uL Hgb 7.2 L (13.0-17.5) gm/dL Hct 23.2 L (39.0-53.0) % MCHC (31.0-37.0) g/dL Neutrophils # 13.1 H (1.3-7.7) k/uL Lymphocytes # 0.5 L (1.0-4.8) k/uL Monocytes # 1.2 H (0-1.0) k/uL Sodium 131 L (137-145) mmol/L Chloride 93 L (98-107) mmol/L Carbon Dioxide 32 H (22-30) mmol/L BUN 79 H (9-20) mg/dL Creatinine 1.57 H (0.66-1.25) mg/dL Glucose 143 H (74-99) mg/dL POC Glucose (mg/dL) 251 H (70-110) mg/dL Calcium 8.2 L (8.4-10.2) mg/dL ALT 131 H (4-49) U/L Total Protein 5.4 L (6.3-8.2) g/dL Albumin 3.2 L (3.5-5.0) g/dL 05/01/22 05/01/22 05/02/22 Range/Units 16:29 20:17 05:35 WBC 16.9 H (3.8-10.6) k/uL RBC 2.52 L (4.30-5.90) m/uL Hgb 7.4 L (13.0-17.5) gm/dL Hct 24.5 L (39.0-53.0) % MCHC 30.2 L (31.0-37.0) g/dL Neutrophils # 14.6 H (1.3-7.7) k/uL Lymphocytes # 0.6 L (1.0-4.8) k/uL Monocytes # 1.3 H (0-1.0) k/uL Sodium (137-145) mmol/L Chloride (98-107) mmol/L Carbon Dioxide (22-30) mmol/L BUN (9-20) mg/dL Creatinine (0.66-1.25) mg/dL Glucose (74-99) mg/dL POC Glucose (mg/dL) 213 H 194 H (70-110) mg/dL Calcium (8.4-10.2) mg/dL ALT (4-49) U/L Total Protein (6.3-8.2) g/dL Albumin (3.5-5.0) g/dL 05/02/22 05/02/22 Range/Units 05:35 06:51 WBC (3.8-10.6) k/uL RBC (4.30-5.90) m/uL Hgb (13.0-17.5) gm/dL Hct (39.0-53.0) % MCHC (31.0-37.0) g/dL Neutrophils # (1.3-7.7) k/uL Lymphocytes # (1.0-4.8) k/uL Monocytes # (0-1.0) k/uL Sodium 135 L (137-145) mmol/L Chloride 91 L (98-107) mmol/L Carbon Dioxide 36 H (22-30) mmol/L BUN 77 H (9-20) mg/dL Creatinine 1.54 H (0.66-1.25) mg/dL Glucose 148 H (74-99) mg/dL POC Glucose (mg/dL) 181 H (70-110) mg/dL Calcium (8.4-10.2) mg/dL ALT 111 H (4-49) U/L Total Protein 5.5 L (6.3-8.2) g/dL Albumin 3.2 L (3.5-5.0) g/dL Microbiology - Last 24 Hours (Table) 04/30/22 16:45 Acid Fast Bacilli Smear - Final Pleural Fluid Acid Fast Bacilli Culture - Preliminary 04/29/22 23:30 Gram Stain - Preliminary Sputum Sputum Culture - Preliminary 04/29/22 09:27 Blood Culture - Preliminary Blood No Growth after 48 hours 04/29/22 09:22 Blood Culture - Preliminary Blood No Growth after 48 hours 04/30/22 16:45 Gram Stain - Preliminary Pleural Fluid Body Fluid Culture - Preliminary 04/30/22 16:45 Fungal Culture - Preliminary Pleural Fluid - Imaging and Cardiology Chest x-ray: report reviewed, image reviewed Assessment and Plan Assessment: 1. Severe mitral valve regurgitation, status post mitral valve repair 2. Coronary artery disease, previous PCI, previous non-STEMI, status post CABG 3 3. History of paroxysmal atrial fibrillation, previous cardioversion, on [facility] outpatient for anticoagulation, status post modified Castanon maze and ligation of left atrial appendage, currently in normal sinus rhythm 4. Patent foramen ovale, status post closure 5. Tricuspid regurgitation 6. Chronic diastolic congestive heart failure, ischemic cardiomyopathy with EF 40-45% 7. History of hypertension 8. History hyperlipidemia, treated, cholesterol 150, LDL 72 9. Right internal carotid stenosis 50-79% 10. Anemia with history of GI bleed in November 2021 S/P transfusion PRBCs 11. Acute on chronic renal failure, baseline creatinine 1.2-1.6 12. Diabetes mellitus type 2, preoperative hemoglobin A1c 5.6% 13. Osteoarthritis 14. Severe COPD, preoperative FEV1 41% of predicted 15. Chronic ongoing nicotine dependence 16. Remote history of pneumonia 17. Chronic low back pain 18. Hearing disorder 19. Nasal swab positive for MSSA preoperative 20. Postoperative acute blood loss anemia, expected 21. Elevated transaminases, continue to trend downward, AST 43 and ALT 143 today 22. Protamine reaction intraoperative 23. Medical debility, generalized weakness 24. Stage II decubitus to his buttocks 25. Small left-sided pleural effusion, status post left-sided thoracentesis on 04/30/2022 26. Urinary retention possibly secondary to constipation Plan: 1. Continue aspirin, Plavix, beta siomara, statin and low dose Imdur. We will increase his metoprolol tartrate as tolerated. 2. Zaroxolyn 2.5 mg by mouth 1 now. Continue Bumex 2 mg IV every 12 hours per cardiology management. 3. Continue Amiodarone 200 mg by mouth twice a day for atrial fibrillation pro phylaxis. No anticoagulation until after his epicardial pacemaker wires have been removed, likely will discharge on Eliquis. 4. Encourage incentive spirometry 10 times every hour while awake. [facility] hodilators per pulmonology/critical care management. 5. Increase activity, ambulate as tolerated. PT/OT/cardiac rehab following. Needs much encouragement with ambulation. 6. Will monitor daily labs and chest x-rays. Electronic replacement per protocol. Avoid hepatotoxic and nephrotoxic medications. 7. GI/DVT prophylaxis. 8. Insulin management per primary care service. Patient is a diabetic with a preoperative hemoglobin A1c of 5.6% on multiple oral medications, needs tight blood sugar control. 9. Pain control with current medication regimen. 10. Continue Mooney catheter for urinary retention and strict accurate I's and O's. Continue Flomax 0.4 mg by mouth daily. Urinalysis was negative. Urology consult noted and appreciated. Recommendations to leave Mooney catheter in for 1 week and remove Mooney for voiding trial prior to discharge. 11. Daily weights. 12. Shower daily. 13. Importance of risk modification including smoking cessation counseling and education provided to patient and family. 14. Continue to monitor blood culture and sputum culture results, culture showe d no growth after 24 hours. Continue cefepime 2 g every 12 hours for empiric and about coverage. 15. Wound care was consulted for management of the wound to his buttocks. 16. Dr. Mora was reconsult for evaluation placement inpatient rehab. 17. More recommendations to follow based on patient's clinical course. Time with Patient: Greater than 30
[2022-05-02] MEDS: SYMBICORT 160-4.5 MCG INHALER INHALATION SCH ×2 (08:13→20:51)
[2022-05-02] MEDS: IPRATROPIUM-ALBUTEROL 3 ML NEB INHALATION SCH ×4 (08:13→20:51)
[2022-05-02] MEDS: ACETAMINOPHEN TAB 325 MG TAB PO PRN (08:16)
[2022-05-02] MEDS: CEFEPIME 2 GM in SODIUM CHLORIDE 0.9% 100 ML IVPB SCH ×2 (08:17→20:43)
[2022-05-02] MEDS: bisacodyL 10 MG SUPP RECTAL PRN (08:17)
[2022-05-02] MEDS: AMIODARONE 200 MG TAB PO SCH ×2 (08:18→20:43)
[2022-05-02] MEDS: TAMSULOSIN 0.4 MG CAP.ER.24H PO SCH (08:18)
[2022-05-02] MEDS: HEPARIN SODIUM,PORCINE/PF 5,000 UNIT/0.5 ML SYRINGE SQ SCH ×3 (08:18→23:02)
[2022-05-02] MEDS: FERROUS SULFATE 325 MG TAB PO SCH ×2 (08:18→20:43)
[2022-05-02] MEDS: METOPROLOL TARTRATE 25 MG TAB PO SCH ×3 (08:18→23:01)
[2022-05-02] MEDS: ASPIRIN 325 MG TAB PO SCH (08:18)
[2022-05-02] MEDS: ATORVASTATIN 40 MG TAB PO SCH (08:18)
[2022-05-02] MEDS: ASCORBIC ACID 500 MG TAB PO SCH (08:18)
[2022-05-02] MEDS: POTASSIUM CHLORIDE ER 10 MEQ TAB.ER.PRT PO SCH (08:19)
[2022-05-02] MEDS: CLOPIDOGREL 75 MG TAB PO SCH (08:19)
[2022-05-02] MEDS: NON FORMULARY DRUG SQ SCH (08:19)
[2022-05-02] MEDS: ISOSORBIDE MONONITRATE ER 15 MG TAB PO SCH (08:20)
--- NOTE | 2022-05-02 08:22 | XR ---
EXAMINATION TYPE: XR chest 1V portable DATE OF EXAM: 05/02/2022 Comparison: 05/01/2022 Clinical History: 72-year-old male Postoperative cardiac surgery Findings: Median sternotomy wires are present. Heart mildly enlarged. Mild hyperinflation. Ongoing small bilate ral pleural effusions with bibasilar opacities, right greater than left. Impression: Overall similar appearance, likely pulmonary vascular congestion along with small bilateral pleural e ffusions with adjacent atelectasis and/or consolidation.
--- NOTE | 2022-05-02 08:51 | P.PN ---
Progress Note - Text Asked to review patient. Had pacer wires removed yesterday. PT reports max assist for bed mobility, moderate for transfers and gait 75 ft, PAPER STRIPPER. OT reports independent for feed and supervisoin for grooming, minimal assist for upper dress, total for lower dress, moderate for toileting and maximal assist for bathing. Would accept for IPR pending inusrance authorization.
[2022-05-02] MEDS ORDERED: metOLazone 2.5 MG TAB PO SCH (09:00)
[2022-05-02 11:32] LABS: Glucose,Whole Blood 187 mg/dL (70-110)
--- NOTE | 2022-05-02 12:44 | P.PN ---
Subjective Progress Note Date: 05/02/22 Principal diagnosis: Postoperative day #13Mitral valve repair with 28 mm physio-2 ring, CABG 3 with saphenous vein grafts to first diagonal, obtuse marginal, posterior descending coronary arteries, closure of PFO, endovascular vein harvest, modified Castanon maze procedure with full left-sided lesion set and ligation of the left atrial appendage, SCOTT by anesthesia. Protamine reaction intraoperative Reevaluated today on 04/30/22, patient is sitting up in a bedside chair, he is awake alert oriented 3, he does complain of shortness of breath, remind you that the patient does have history of severe underlying COPD, FEV1 is normally just over 1 L, 42% of the predicted value. Patient is on bronchodilators for his underlying COPD. Chest x-ray is showing small pleural effusions, not large enough to consider thoracentesis. Remains on diuretics in the form of Bumex. Patient is also on metoprolol 25 twice a day and on amiodarone. Patient does not seem to be in distress, he is on 3 L nasal cannula. WBC count today 17.8 hemoglobin is 7.1, electrolytes are normal BUN is 84 creatinine 1.83, baseline is 1.43. The patient is seen today 05/01/2022 in follow-up in the intensive care unit. He is currently sitting up in a chair at the bedside. Awake and alert in no acute distress. Feeling a bit stronger today compared to yesterday. He is maintaining good O2 saturations in the mid 90s on 2 L/m per nasal cannula. He is afebrile. Hemodynamically stable. He did undergo a left-sided thoracentesis yesterday with approximately 850 mL of slightly serosanguineous fluid removed. This was transudate with the protein of 1.8 and an LDH 175. Chest x-ray shows improved aeration. No pneumothorax post procedure. He is continuing to work with the incentive spirometer. Follow-up limited echocardiogram revealed that ejection fraction of 45-50% with atypical septal motion. Evidence of mitral valve repair. Moderate aortic stenosis with a mean gradient 20 mmHg. No franklyn dence of pericardial effusion. He is status post 2 units of packed red blood cells, 2 units of fresh frozen plasma and 1 unit of platelets this admission. White count 15.3. Hemoglobin 7.2. Platelets 305. Sodium 131. Potassium 4.0. Bicarb 32. BUN 79. Creatinine 1.57. Glucose 143. AST 43. ALT 131. Albumin 3.2. He remains on bronchodilators, antibiotics in the form of cefepime. Heparin for DVT prophylaxis. Continued on amiodarone. Currently in a regular rhythm. Reevaluated today on 05/02/2022, patient is doing great, much better today compared to the last few days, breathing easier, does not seem to be in any distress. Chest x-ray shows a small tiny pleural effusions not large enough to consider repeat thoracentesis. WBC count is 16.9 hemoglobin is 7.4. Electrodes are normal BUN is 77 creatinine 1.54. Objective - Vital Signs Vital signs: Vital Signs Temp 98.7 F 05/02/22 12:00 Pulse 87 05/02/22 12:00 Resp 16 05/02/22 12:00 BP 91/57 05/02/22 12:00 Pulse Ox 94 L 05/02/22 12:00 FiO2 100 04/22/22 16:00 Intake & Output 05/01/22 05/02/22 05/02/22 18:59 06:59 18:59 Intake Total 1070 350 600 Output Total 2190 3155 1025 Balance -6200 -4418 -866 Weight 96.4 kg 96.4 kg Intake: Intake, IV Titration 100 100 100 Amount Cefepime 2 gm In Sodium 100 100 100 Chloride 0.9% 100 ml @ 25 mls/hr IVPB Q12HR [facility] Rx #:[id number] Oral 970 250 500 Output: Urine 2190 3155 1025 Other: Voiding Method Indwelling Catheter Indwelling Catheter Indwelling Catheter ABP, PAP, CO, CI - Last Documented Arterial Blood Pressure 137/47 Pulmonary Artery Pressure 67/18 Cardiac Output 5.8 Cardiac Index 2.8 - Exam Physical Exam: Revealed a 72-year-old white male sitting in a bedside chair, in no distress. On 2 L nasal cannula O2 saturations 94%. Head: Atraumatic, normocephalic. HEENT:[Neck is supple.] [No neck masses.] [No thyromegaly.] [No JVD.] Chest: Diminished breath sounds at the bases with crackles at the bases no rhonchi and no wheezes Cardiac Exam: Irregular irregular rhythm. [Normal S1 and S2, no S3 gallop, no murmur.] Abdomen: [Soft, nontender, no megaly, no rebound, no guarding, normal bowel sounds.] Extremities: [No clubbing, 1+ bipedal edema, no cyanosis.] Neurological Exam: [No focal neurologic deficit.] Alert oriented 3. Psychiatric: Normal mood affect and normal mental status examination. Skin: No rashes. - Labs CBC & Chem 7: 05/02/22 05:35 05/02/22 05:35 Labs: Abnormal Lab Results - Last 24 Hours (Table) 05/01/22 05/01/22 05/02/22 Range/Units 16:29 20:17 05:35 WBC (3.8-10.6) k/uL RBC (4.30-5.90) m/uL Hgb (13.0-17.5) gm/dL Hct (39.0-53.0) % MCHC (31.0-37.0) g/dL Neutrophils # (1.3-7.7) k/uL Lymphocytes # (1.0-4.8) k/uL Monocytes # (0-1.0) k/uL Sodium (137-145) mmol/L Chloride (98-107) mmol/L Carbon Dioxide (22-30) mmol/L BUN (9-20) mg/dL Creatinine (0.66-1.25) mg/dL Glucose (74-99) mg/dL POC Glucose (mg/dL) 213 H 194 H (70-110) mg/dL ALT (4-49) U/L Total Protein (6.3-8.2) g/dL Albumin (3.5-5.0) g/dL Procalcitonin 0.42 H (0.02-0.09) ng/mL 05/02/22 05/02/22 05/02/22 Range/Units 05:35 05:35 06:51 WBC 16.9 H (3.8-10.6) k/uL RBC 2.52 L (4.30-5.90) m/uL Hgb 7.4 L (13.0-17.5) gm/dL Hct 24.5 L (39.0-53.0) % MCHC 30.2 L (31.0-37.0) g/dL Neutrophils # 14.6 H (1.3-7.7) k/uL Lymphocytes # 0.6 L (1.0-4.8) k/uL Monocytes # 1.3 H (0-1.0) k/uL Sodium 135 L (137-145) mmol/L Chloride 91 L (98-107) mmol/L Carbon Dioxide 36 H (22-30) mmol/L BUN 77 H (9-20) mg/dL Creatinine 1.54 H (0.66-1.25) mg/dL Glucose 148 H (74-99) mg/dL POC Glucose (mg/dL) 181 H (70-110) mg/dL ALT 111 H (4-49) U/L Total Protein 5.5 L (6.3-8.2) g/dL Albumin 3.2 L (3.5-5.0) g/dL Procalcitonin (0.02-0.09) ng/mL 05/02/22 Range/Units 11:31 WBC (3.8-10.6) k/uL RBC (4.30-5.90) m/uL Hgb (13.0-17.5) gm/dL Hct (39.0-53.0) % MCHC (31.0-37.0) g/dL Neutrophils # (1.3-7.7) k/uL Lymphocytes # (1.0-4.8) k/uL Monocytes # (0-1.0) k/uL Sodium (137-145) mmol/L Chloride (98-107) mmol/L Carbon Dioxide (22-30) mmol/L BUN (9-20) mg/dL Creatinine (0.66-1.25) mg/dL Glucose (74-99) mg/dL POC Glucose (mg/dL) 187 H (70-110) mg/dL ALT (4-49) U/L Total Protein (6.3-8.2) g/dL Albumin (3.5-5.0) g/dL Procalcitonin (0.02-0.09) ng/mL Microbiology - Last 24 Hours (Table) 04/29/22 09:27 Blood Culture - Preliminary Blood No Growth after 72 hours 04/29/22 09:22 Blood Culture - Preliminary Blood No Growth after 72 hours 04/30/22 16:45 Gram Stain - Preliminary Pleural Fluid Body Fluid Culture - Preliminary 04/30/22 16:45 Acid Fast Bacilli Smear - Final Pleural Fluid Acid Fast Bacilli Culture - Preliminary 04/29/22 23:30 Gram Stain - Preliminary Sputum Sputum Culture - Preliminary Assessment and Plan Assessment: Impression: 1. Severe mitral valve regurgitation, status post mitral valve repair, postoperative day # 13 2. Coronary artery disease, previous PCI, previous non-STEMI, status post CABG 3, postop day #10 3. History of paroxysmal atrial fibrillation, previous cardioversion, on [facility] outpatient for anticoagulation, status post modified Castanon maze and ligation of left atrial appendage, postop day #10 4. Patent foramen ovale, status post closure, postop day #10 5. Atrial fibrillation, expected outcome of surgery and the patient is back to normal sinus rhythm. The patient is currently on oral amiodarone, and metoprolol. No anticoagulations yet. 6. Chronic systolic congestive heart failure, ischemic cardiomyopathy with EF 40-45% 7. History of hypertension 8. History hyperlipidemia, treated, cholesterol 150, LDL 72 9. Right internal carotid stenosis 50-79% 10. Anemia with history of GI bleed in November 2021 S/P transfusion PRBCs 11. Acute on chronic renal failure, creatinine is at 1.9 12. Diabetes mellitus type 2, preoperative hemoglobin A1c 5.6% currently Levemir insulin 8 units along with a sliding scale coverage 13. Osteoarthritis 14. Severe COPD, preoperative FEV1 41% of predicted 15. Chronic ongoing nicotine dependence 16. Remote history of pneumonia 17. Chronic low back pain, hearing disorder 18. Nasal swab positive for MSSA preoperative 19. Postoperative acute blood loss anemia, expected 20. Elevated transaminases, most likely due to shock liver and the significant elevation of the ALT and AST which are being monitored, and the level is also im proving and there is a decline and LFTs 21. Protamine reaction intraoperative 22 decubitus ulcer stage 2 23, small left-sided pleural effusion along with some left basilar atelectasis. Recommendation: Continue aspirin and Plavix beta blockers and statins. Continue diuretics. Continue amiodarone. Continue daily weights. Ambulate as much as possible and encouraged to ambulate Continue oxygen and titrate accordingly, presently down to 2 L nasal cannula. Continue bronchodilators and diuretics, the effusions are not large enough to consider thoracentesis Continue incentive spirometry Continue GI and DVT prophylaxis Continue metoprolol and amiodarone. Possible rehab placement We'll continue to follow Time with Patient: Less than 30
--- NOTE | 2022-05-02 13:25 | PN ---
PROGRESS NOTE HISTORY OF PRESENT ILLNESS: A 72-year-old gentleman who underwent bypass surgery, mitral valve repair, PFO closure, and has been in the hospital for almost 2 weeks now, has had multiple issues and is currently being evaluated for possible rehab. He has had paroxysmal atrial fibrillation and went into Afib yesterday with a controlled ventricular rate. He is not on any anticoagulant as per CT Surgery. Patient already had modified Maze procedure with ligation of the left atrial appendage. His risk for stroke is very low. PHYSICAL EXAMINATION: VITAL SIGNS: Today, heart rate is 70 beats per minute, blood pressure 118/62, and respiratory rate is 18. NECK: There is no jugular venous distention. Carotid upstroke is normal. There is no bruit. CHEST: Reveals good air entry bilaterally. HEART: Reveals first and second heart sounds. No gallop, no murmur. ABDOMEN: Soft, nontender. EXTREMITIES: Did not reveal any edema. Examination of extremities reveals bilateral pitting edema. Peripheral pulses are felt. LABS: Show a hemoglobin of 7.4, BUN is 77, creatinine is 1.5. ASSESSMENT: Coronary artery disease, status post CABG; mitral regurgitation status post mitral valve repair . PLAN: Continue the amiodarone. Continue supportive caret MMODL / IJN: [id number] /
--- NOTE | 2022-05-02 14:25 | P.PN ---
Progress Note - Text Progress Note Date: 05/02/22 Patient is a pleasant 72-year-old male came in the for elective mitral valve repair, CABG x 3 vessel, maze procedure, PFO closure. Patient is extubated sitting in the chair patient still has a [place]-V[place] catheter, CVP of around 12, cardiac index 3.1 patient creatinine went up to 1.70 resulting elevated potassium of 5.5 patient is off pressor support, off nitro drip patient still has 2 mediastinal and one left-sided chest tube. 04/21/2022 Patient is evaluated in ICU today, sitting up in chair. He is postoperative day #2 for elective mitral valve repair, hematocrit bypass grafting maze procedure and PFO closure. He is on BiPAP with fio2 of 40% Continues with mediastinal/left pleural chest tubes. Continue with indwelling catheter. Received dose of IV albumin yesterday afternoon. Chest xray today showing ongoing mild pulmonary vascular congestion, increasing patchy bibasilar opacities, atelectasis vs. pulmonary edema. Currently on lasix gtt at 10mls/hr, continues on dopamine gtt at 3.68 mls/hr. Continues on insulin gtt and blood glucose remains in the 140 to 130s. Labs today showing sodium 132, potassium 6.1 improved to 5.4, BUN 41, creatinine 2.53, elevated liver enzymes. Hgb 7.3. 04/22/2022 Patient continues to be monitored closely in intensive care unit, he is postoperative day #3 for elective mitral valve repair, maze procedure, PFO closure. Managed by primary team. He had limited echocardiogram completed showing EF 45 to 50%, mild to moderate MR, moderate pulmonary hypertension with moderate TR. Chest xray today shows slight improvement in pulmonary vascular congestion. Maintained on lasix gtt at 10mls/hr, dopamine gtt, Continues with 2 mediastinal chest tubes. Continues with indwelling catheter. Continues with right IJ swan/cordis, right radial arterial line. He has been weaned off BiPAP currently on high flow cannula at 15L. He has been tolerating some diet. Continues on insulin gtt which will continue until his diet stabilizes. Current glucose in the 140s. Creatinine today 3.14. April 23: [facility] In a recliner. Tired. Little oral intake. Nasal cannula. Drips include IV dopamine and Lasix. Some shortness of breath. Mooney catheter. 04/24/2022: ICU. Up. 4 L nasal cannula. Did eat better. Edema present. On the Lasix drip 5 mg an hour. Some improvement in creatinine. 04/25/2022: ICU. Up in a recliner. Eating better. at the bedside. Edema present. Off Lasix drip. Feeling better. Creatinine coming down. LFTs improving. Home dose of Victoza was started 04/26/2022: ICU. Up in a recliner. 4 L nasal cannula. Eating about 50%. Accu-Cheks noted. 04/27/2022: ICU: Patient went into atrial fibrillation overnight. Put on oral amiodarone and Lopressor per CTS.. Some worsening of shortness of breath. Placed on IV Lasix. Eating some. Up in a recliner. 04/28/2022: ICU. Patient received Lopressor today for the A. fib. Patient went down into sinus rhythm. Blood pressure also dropped her was 70 systolic. Oxygen increased to 4 L. Short of breath. Patient did walk 10-12 steps up to the door. Eating fair. Lower extremity edema edema present. Up in a chair. Tired. 04/29/2022: ICU. Short of breath. 3 L nasal cannula. Eating fair. Edema pre sent. Getting Bumex. Getting IV albumin and IV calcium. Using incentive spirometry. Up in a chair. Discussed with at the bedside. Increasing white count, infiltrated urine chest x-ray suggestive of pneumonia. Started on IV cefepime 04/30/2022: ICU. Remains short of breath. 3 L nasal cannula. Started on IV cefepime yesterday.. Oral intake fair. Edema present. Remains on Bumex. Fo sher catheter. Discussed with patient and at the bedside. Discussed with Dr. Cortez from cardiothoracic surgery. 05/01/2022: ICU. Zaroxolyn was added. Good diuresis. Breathing better. On IV cefepime. Left paracentesis is done. 850 mL removed. Oral intake fair. Breathing a bit better. Telemetry shows sinus rhythm. 2 L nasal cannula. at the bedside. Will DC Actos. Even though smaller dose. Given CHF renal failure. Increase Lantus to 12 units. 05/02/2022: ICU. Over 3 is a negative fluid balance. Last 24 hours. Some improvement in breathing. Oral intake fair. Remains in atrial fibrillation controlled. 2 L nasal cannula. Add Diamox. 4 metabolic alkalosis Active Medications Acetaminophen (Acetaminophen Tab 325 Mg Tab) 650 mg PO Q6HR PRN PRN Reason: Fever and/ or Pain Last Admin: 05/02/22 08:16 Dose: 650 mg Albuterol/Ipratropium (Ipratropium-Albuterol 3 Ml Neb) 3 ml INHALATION RT-Q2H PRN PRN Reason: Shortness Of Breath Or Wheezing Last Admin: 04/29/22 23:30 Dose: 3 ml Albuterol/Ipratropium (Ipratropium-Albuterol 3 Ml Neb) 3 ml INHALATION RT-QID [facility] Last Admin: 05/02/22 11:15 Dose: 3 ml Amiodarone HCl (Amiodarone 200 Mg Tab) 200 mg PO BID [facility] Stop: 05/04/22 01:00 Last Admin: 05/02/22 08:18 Dose: 200 mg Amiodarone HCl (Amiodarone 200 Mg Tab) 200 mg PO DAILY [facility] Ascorbic Acid (Ascorbic Acid 500 Mg Tab) 500 mg PO DAILY [facility] Last Admin: 05/02/22 08:18 Dose: 500 mg Aspirin (Aspirin 325 Mg Tab) 325 mg PO DAILY [facility] Last Admin: 05/02/22 08:18 Dose: 325 mg Atorvastatin Calcium (Atorvastatin 40 Mg Tab) 40 mg PO DAILY [facility] Last Admin: 05/02/22 08:18 Dose: 40 mg Benzocaine/Menthol (Benzocaine/Menthol Lozeng 1 Each Lozenge) 1 each MUCOUS MEM Q2HR PRN PRN Reason: Sore Throat Last Admin: 05/01/22 05:47 Dose: 1 each Bisacodyl (Bisacodyl 10 Mg Supp) 10 mg RECTAL DAILY PRN PRN Reason: Constipation Last Admin: 05/02/22 08:17 Dose: 10 mg Budesonide/Formoterol Fumarate (Symbicort 160-4.5 Mcg Inhaler) 2 puff INHALATION RT-BID [facility] Last Admin: 05/02/22 08:13 Dose: 2 puff Bumetanide (Bumetanide 0.25 Mg/Ml 10 Ml Vial) 2 mg IV DAILY [facility] Last Admin: 05/02/22 08:19 Dose: 2 mg Clopidogrel Bisulfate (Clopidogrel 75 Mg Tab) 75 mg PO DAILY [facility] Last Admin: 05/02/22 08:19 Dose: 75 mg Dextrose/Water (Dextrose 50% Syringe 50 Ml) 25 ml IVP PER PROTOCOL PRN; Protocol PRN Reason: Hypoglycemia Dextrose/Water (Dextrose 50% Syringe 50 Ml) 50 ml IVP PER PROTOCOL PRN; Protocol PRN Reason: Hypoglycemia Dextrose/Water (Dextrose 50% Syringe 50 Ml) 25 ml IVP PER PROTOCOL PRN; Protoco l PRN Reason: Hypoglycemia Dextrose/Water (Dextrose 50% Syringe 50 Ml) 50 ml IVP PER PROTOCOL PRN; Protocol PRN Reason: Hypoglycemia Ferrous Sulfate (Ferrous Sulfate 325 Mg Tab) 325 mg PO BID [facility] Last Admin: 05/02/22 08:18 Dose: 325 mg Heparin Sodium (Porcine) (Heparin Sodium,Porcine/Pf 5,000 Unit/0.5 Ml Syringe) 5,000 unit SQ Q8HR [facility] Last Admin: 05/02/22 08:18 Dose: 5,000 unit Calcium Gluconate/Sodium (Chloride 2 gm/ IV Solution) 100 mls @ 100 mls/hr IVPB ONCE PRN PRN Reason: Ionized Calcium less than 4.4 Stop: 05/19/22 23:00 Cefepime HCl 2 gm/ Sodium (Chloride) 100 mls @ 25 mls/hr IVPB Q12HR [facility]; Protocol Stop: 05/04/22 21:01 Last Admin: 05/02/22 08:17 Dose: 25 mls/hr Insulin Aspart (Insulin Aspart (Novolog) 100 Unit/Ml Vial) 0 unit SQ ACHS [facility]; Protocol Last Admin: 05/02/22 12:17 Dose: 2 unit Insulin Detemir (Insulin Detemir (Levemir) 100 Unit/Ml Syr) 12 unit SQ HS [facility] Last Admin: 05/01/22 20:52 Dose: 12 unit Isosorbide Mononitrate (Isosorbide Mononitrate Er 15 Mg Tab) 15 mg PO DAILY [facility] Last Admin: 05/02/22 08:20 Dose: 15 mg Magnesium Hydroxide (Magnesium Hydroxide 2,400 Mg/10 Ml Cup) 2,400 mg PO BID PRN PRN Reason: Constipation Last Admin: 04/22/22 07:08 Dose: 2,400 mg Metoprolol Tartrate (Metoprolol Tartrate 25 Mg Tab) 25 mg PO BID [facility] Last Admin: 05/02/22 08:18 Dose: 25 mg Miscellaneous Information (Potassium Replacement Protocol 1 Each Misc) 1 each MISCELLANE DAILY PRN; Protocol PRN Reason: Per Protocol Miscellaneous Information (Magnesium Replacement Protocol 1 Each Misc) 1 each MISCELLANE DAILY PRN; Protocol PRN Reason: Per Protocol Non-Formulary Medication (Non Formulary Drug) 1 each SQ DAILY [facility] Last Admin: 05/02/22 08:19 Dose: 1 each Ondansetron HCl (Ondansetron 4 Mg/2 Ml Vial) 4 mg IVP Q6HR PRN PRN Reason: Nausea And Vomiting Last Admin: 04/27/22 09:22 Dose: 4 mg Potassium Chloride (Potassium Chloride Er 10 Meq Tab.Er.Prt) 10 meq PO DAILY [facility] Last Admin: 05/02/22 08:19 Dose: 10 meq Senna/Docusate Sodium (Sennosides-Docusate Sodium 1 Each Tab) 2 each PO HS [facility] Last Admin: 05/01/22 20:08 Dose: 2 each Sodium Chloride (Sodium Chloride 0.9% Flush 10 Ml Syringe) 10 ml IV BID [facility] Last Admin: 05/02/22 08:20 Dose: 10 ml Tamsulosin HCl (Tamsulosin 0.4 Mg Cap.Er.24h) 0.4 mg PO PC-BRKFST [facility] Last Admin: 05/02/22 08:18 Dose: 0.4 mg On examination: VITAL SIGNS: 98.7, 87, 16, 91/57, 94% on 2 L GENERAL APPEARANCE: In bed tired, less short of breath HEENT: Normal external appearance of nose and ear. Oral cavity normal EYES: Pupils equal. Conjunctiva normal. NECK: JVD not raised. Mass not palpable. RESPIRATORY: Respiratory effort increased. Lungs diminished breath sounds. CARDIOVASCULAR: First and second sounds normal. Edema present ABDOMEN: Soft. Liver and spleen not palpable. No tenderness. No mass palpable. Mooney catheter PSYCHIATRY: AO 3, mood and affect normal INVESTIGATIONS, reviewed in the clinical context: 05/02/2022: WBC 16.911 7.4 potassium 3.7 BUN 77 creatinine 1.5 for bicarb 36 Limited 2-D echocardiogram [May 01]: EF 45%. [id number] MR, moderate aortic stenosis 05/01/2022: WBC 15.3 hemoglobin 7.2 platelets 305 potassium 4. 39 creatinine 1.57 04/30/2022: WBC 17.81 7.14.6 BUN [address] chest [April 29]: Moderate partial obliterate right pleural effusion, left pleural effusion, cardiomegaly. 04/29/2022: WBC 18.5 hemoglobin 7.6 platelets 272 potassium 4.9 creatinine 1.98 CRP 5.6 procalcitonin 0.7 to, AST 62, ALT 213 04/28/2022: WBC 15 hemoglobin 7.1 potassium 4.7 BUN 71 creatinine 1.50 AST 90 AST 285 04/27/2022: WBC 10.5 hemoglobin 7.3 platelets 167 potassium 4.1 BUN 75 creatinine 1.35 AST was 67 ALT 378 04/26/2022: WBC 9.1 hemoglobin 7.4 platelets 101 potassium 4.6 BUN 83 creatinine 1.5 for AST 266 ALT 477 04/25/2022: WBC 12.4 hemoglobin 7.2 potassium 4.5 BUN 85 creatinine 2.12 AST 503 ALT 619 04/24/2022: WBC 9.2 hemoglobin 7.1 platelets 122 potassium 5.1 BUN 77 creatinine 2.97 AST 1270 ALT 1038 WBC 8.2 hemoglobin 7.5 platelets 111 sodium 135 progression 6 BUN 67 creatinine 3.43 AST 3595 ALT 1512 Limited 2-D echocardiogram: EF 45-50%. Inferior wall hypokinesis. Moderate MR. Moderate pulmonary hypertension with moderate TR. Assessment and plan -Acute on chronic congestive heart exacerbation from systolic/diastolic dysfunction EF 45-50%:, precipitated by A. fib: Slow to respond IV Bumex 2 mg daily. -Suspect pneumonia, patient short of breath, infiltrate on chest x-ray, increasing white count and procalcitonin: IV cefepime -Acute hypoxic respiratory failure from pulmonary edema/pneumonia: 2 L nasal cannula -Diabetes Mellitus type 2 with hyperglycemia, Victoza , Actos-discontinue. Levemir 12 units daily at bedtime -Paroxysmal atrial fibrillation status post modified [place]-Maze procedure,: With rapid ventricular rate: Now - sinus rhythm amiodarone ,Lopressor. -acute renal failure on chronic kidney disease stage II with renal failure is probably prerenal azotemia, cardiorenal syndrome.: Worsening Creatinine peaked at 3.43. Creatinine slowly coming down, down to 1.5 for -hyperkalemia secondary to acute renal failure: Corrected Received Lokelma. Renal diet -Acute hepatitis, likely ischemic: Improving Follow closely. GI services not available in the hospital. Hold any hepatic offensive medications. Follow LFTs patient as patient started back on amiodarone -Acute COPD exacerbation, in a smoker DuoNeb. Symbicort -Hyperlipidemia Lipitor -Metabolic alkalosis from diuresis Add Diamox - coronary artery disease with previous PCI Aspirin, Lasix, Imdur, Lopressor -Acute postprocedure blood loss anemia as expected from surgery Patient receive 2 units of PRBC, follow CBC -Chronic nicotine dependence -Sacral decubitus ulcer, stage II Local care - post mitral valve failure, status post CABG, status post PFO closure: Currently [id number] MR -Moderate aortic stenosis -Moderate secondary probably hypertension 2 L nasal cannula. IV cefepime , IV Bumex cutback to daily. Add Diamox. Discussed with patient and .
[2022-05-02] MEDS: BENZOCAINE/MENTHOL LOZENG 1 EACH LOZENGE MUCOUS MEM PRN (15:04)
[2022-05-02] MEDS: acetaZOLAMIDE 250 MG TAB PO SCH ×2 (15:04→20:43)
[2022-05-02 16:22] LABS: Glucose,Whole Blood 156 mg/dL (70-110)
[2022-05-02 20:35] LABS: Glucose,Whole Blood 254 mg/dL (70-110)
[2022-05-02] MEDS: SENNOSIDES-DOCUSATE SODIUM 1 EACH TAB PO SCH (20:44)
[2022-05-02] MEDS: INSULIN DETEMIR (LEVEMIR) 100 UNIT/ML SYR SQ SCH (20:44)
--- NOTE | 2022-05-02 22:29 | P.CONS ---
History of Present Illness - Reason for Consult Consult date: 05/02/22 Leukocytosis Requesting physician: Neema Ferrell - Chief Complaint Worsening lower back pain x few days - History of Present Illness pelvic area patient is a 72-year-old male electively admitted to the hospital on 04/19/2022 and this patient was status post mitral valve repair and coronary bypass grafting x3 patient subsequently has been in the hospital after his surgery, the patient did have postoperative acute blood loss acute on chronic renal insufficiency and left effusion in this patient who status post left-sided thoracocentesis patient did not have any fever during this hospital stay patient did have a normal white count until 04/27/2022 and the patient white count has been trending up over the last 5 days up to 16.9 today and that has prompted this infectious disease consultation patient did have elevated BUN and creatinine liver enzymes are normal 0.4 to urine on 1126 has been negative pleural fluid analysis was mostly bloody pleural fluid cultures are currently pending patient did have blood cultures on 1127 that has been negative and s putum culture has been negative patient is currently on cefepime patient is hemodynamically stable on no pressor support per the nursing staff patient denies having any headache or URI symptoms no chest pain or shortness with occasional cough no abdominal pain no diarrhea he did have a Mooney catheter for retention and the patient has also developed pressure ulcer to the sacral area during this hospital stay patient is complaining of pain mostly sharp 6-7 out of 10 and no radiation and did have difficulty sleeping because of this pressure ulcer Review of Systems Positive point has been mentioned in the HPI rest of the systems are negative Past Medical History Past Medical History: Atrial Fibrillation, Blood Disorder, COPD, Diabetes Mellitus, GI Bleed, Hearing Disorder / Deafness, Hyperlipidemia, Hypertension, Myocardial Infarction (MD), Pneumonia Additional Past Medical History / Comment(s): Anemia, had GI Bleed 11/22, had 4 units of blood. Bilateral lower extremity edema. Hx MD X2. Insomnia. Hx Pneumonia. Chronic back pain. Last Myocardial Infarction Date:: 11/2021 History of Any Multi-Drug Resistant Organisms: None Reported Past Surgical History: Back Surgery, Heart Catheterization With Stent, Joint Replacement, Orthopedic Surgery Additional Past Surgical History / Comment(s): BILATERAL KNEE REPLACEMENTS, BILATERAL SHOULDER SURGERY, ONE CARDIAC STENT, back surgery X2 (lumbar decompre ssion and fusion), BACK INJECTIONS, COLONOSCOPY, BILATERAL CATARACTS REMOVED WITH LENS IMPLANTS, Cardioversion. Past Anesthesia/Blood Transfusion Reactions: No Reported Reaction Date of Last Stent Placement:: 2000 Smoking Status: Current some day smoker - Past Family History Father Family Medical History: No Reported History Mother Family Medical History: No Reported History Medications and Allergies Home Medications Medication Instructions Recorded Confirmed Type Vit C/E/Zn/Coppr/Lutein/Zeaxan 2 cap PO DAILY 02/19/17 04/12/22 History [Preservision Areds 2 Softgel] Apixaban [Eliquis] 5 mg PO BID 11/09/21 04/12/22 History Fluticasone/Umeclidin/Vilanter 1 inhalation INHALATION HS 11/09/21 04/12/22 History [Trelegy Ellipta 100-62.5-25] Ferrous Sulfate [Iron (65 MG 325 mg PO BID 12/22/21 04/12/22 History Elemental)] Ipratropium-Albuterol Nebulize 3 ml INHALATION QID PRN 12/22/21 04/12/22 History [Duoneb 0.5 mg-3 mg/3 ml Soln] Acetaminophen Tab [Tylenol] 650 mg PO Q6HR PRN tab 05/18/22 Rx Ascorbic Acid [Vitamin C] 500 mg PO DAILY tab 05/18/22 Rx Aspirin 81 mg PO DAILY tab 05/18/22 Rx Atorvastatin [Lipitor] 40 mg PO DAILY tab 05/18/22 Rx Benzocaine/Menthol Lozeng [Cepacol 1 each MUCOUS MEM Q2HR PRN lozenge 05/18/22 Rx lozenge] Bumetanide [Bumex] 2 mg PO DAILY #30 tablet 05/18/22 Rx Dapagliflozin Propanediol [Farxiga] 10 mg PO DAILY tab 05/18/22 Rx HYDROcodone/APAP 5-325MG [[place] 1 each PO Q6HR PRN tab 05/18/22 Rx 5-325] INSULIN ASPART (NovoLOG) [NovoLOG 0 unit SQ ACHS each 05/18/22 Rx (formulary)] Ipratropium-Albuterol Nebulize 3 ml INHALATION RT-Q2H PRN each 05/18/22 Rx [Duoneb 0.5 mg-3 mg/3 ml Soln] Lidocaine 5% Patch [Lidoderm 5% 2 patch TOPICAL DAILY patch 05/18/22 Rx Patch] Metoprolol Tartrate [Lopressor] 25 mg PO BID tab 05/18/22 Rx Pantoprazole [Protonix] 40 mg PO BID #60 tab 05/18/22 Rx Piperacillin-Tazobactam [Zosyn] 3.375 gm IVPB Q8HR #21 each 05/18/22 Rx Potassium Chloride ER [K-Dur 10] 10 meq PO DAILY tab 05/18/22 Rx Sennosides-Docusate Sodium 2 each PO HS PRN tab 05/18/22 Rx [Senokot-S] Tamsulosin [Flomax] 0.4 mg PO PC-BRKFST cap 05/18/22 Rx bisacodyL [Dulcolax] 10 mg RECTAL DAILY PRN suppositor 05/18/22 Rx guaiFENesin-DM 600/30MG [Mucinex 1 each PO Q12HR PRN #1 tab 05/18/22 Rx Dm] lisinopriL [Zestril] 5 mg PO DAILY@1200 tab 05/18/22 Rx Allergies Allergy/AdvReac Type Severity Reaction Status Date / Time protamine AdvReac Anaphylaxis Verified 04/22/22 07:27 Physical Exam Vitals: Vital Signs Temp Pulse Resp BP Pulse Ox 05/02/22 08:24 75 05/02/22 08:14 75 05/02/22 08:00 98 F 86 20 109/56 85 L 05/02/22 07:00 66 20 120/53 93 L 05/02/22 06:00 69 27 H 112/48 96 05/02/22 05:00 66 11 L 105/52 97 05/02/22 04:00 98.3 F 66 18 110/52 95 05/02/22 03:00 66 22 93/47 96 05/02/22 02:00 68 25 H 100/42 95 05/02/22 01:00 68 24 96/44 94 L 05/02/22 00:00 98 F 67 26 H 90/44 94 L 05/01/22 23:00 68 23 94/45 94 L 05/01/22 22:00 66 22 105/47 96 05/01/22 21:18 65 05/01/22 21:03 70 05/01/22 21:00 72 18 115/60 95 05/01/22 20:00 97.6 F 70 20 118/52 99 05/01/22 19:00 79 24 105/48 96 05/01/22 18:00 72 13 100/75 95 05/01/22 17:00 97.4 F L 70 10 L 126/54 97 05/01/22 16:55 65 05/01/22 16:42 67 05/01/22 16:00 87 29 H 103/51 90 L 05/01/22 15:00 68 22 92/48 95 05/01/22 14:00 69 22 103/51 94 L 05/01/22 13:00 69 23 103/53 94 L 05/01/22 12:08 62 05/01/22 12:00 98.2 F 61 22 94/48 96 05/01/22 11:57 61 05/01/22 11:00 61 23 97/85 96 05/01/22 10:00 67 22 118/52 96 Intake and Output 05/01/22 05/02/22 05/02/22 22:59 06:59 14:59 Intake Total 590 Output Total 1695 2300 250 Balance -1105 -2300 -250 Intake: Intake, IV Titration 100 Amount Cefepime 2 gm In Sodium 100 Chloride 0.9% 100 ml @ 25 mls/hr IVPB Q12HR [facility] Rx #:[id number] Oral 490 Output: Urine 1695 2300 250 Other: Voiding Method Indwelling Catheter Indwelling Catheter Indwelling Catheter Weight 96.4 kg 96.4 kg GENERAL DESCRIPTION: Elderly male lying in bed, no distress. No tachypnea or accessory muscle of respiration use. HEENT: Shows Pallor , no scleral icterus. Oral mucous membrane is dry. No pharyngeal erythema or thrush NECK: Trachea central, no thyromegaly. LUNGS: Unlabored breathing. Decreased breath sounds the base. HEART: S1, S2, regular rate and rhythm. No loud murmur ABDOMEN: Soft, no tenderness , guarding or rigidity, no organomegaly EXTREMITIES: No edema of feet. SKIN: No rash, no masses palpable. Patient did have unstageable sacral pressure ulcer with surrounding redness and some foul-smelling NEUROLOGICAL: The patient is awake, alert, oriented x3, mood and affect normal. Results CBC & Chem 7: 05/18/22 05:25 05/18/22 05:25 Labs: Abnormal Lab Results - Last 24 Hours (Table) 05/01/22 05/01/22 05/01/22 Range/Units 11:56 16:29 20:17 WBC (3.8-10.6) k/uL RBC (4.30-5.90) m/uL Hgb (13.0-17.5) gm/dL Hct (39.0-53.0) % MCHC (31.0-37.0) g/dL Neutrophils # (1.3-7.7) k/uL Lymphocytes # (1.0-4.8) k/uL Monocytes # (0-1.0) k/uL Sodium (137-145) mmol/L Chloride (98-107) mmol/L Carbon Dioxide (22-30) mmol/L BUN (9-20) mg/dL Creatinine (0.66-1.25) mg/dL Glucose (74-99) mg/dL POC Glucose (mg/dL) 251 H 213 H 194 H (70-110) mg/dL ALT (4-49) U/L Total Protein (6.3-8.2) g/dL Albumin (3.5-5.0) g/dL Procalcitonin (0.02-0.09) ng/mL 05/02/22 05/02/22 05/02/22 Range/Units 05:35 05:35 05:35 WBC 16.9 H (3.8-10.6) k/uL RBC 2.52 L (4.30-5.90) m/uL Hgb 7.4 L (13.0-17.5) gm/dL Hct 24.5 L (39.0-53.0) % MCHC 30.2 L (31.0-37.0) g/dL Neutrophils # 14.6 H (1.3-7.7) k/uL Lymphocytes # 0.6 L (1.0-4.8) k/uL Monocytes # 1.3 H (0-1.0) k/uL Sodium 135 L (137-145) mmol/L Chloride 91 L (98-107) mmol/L Carbon Dioxide 36 H (22-30) mmol/L BUN 77 H (9-20) mg/dL Creatinine 1.54 H (0.66-1.25) mg/dL Glucose 148 H (74-99) mg/dL POC Glucose (mg/dL) (70-110) mg/dL ALT 111 H (4-49) U/L Total Protein 5.5 L (6.3-8.2) g/dL Albumin 3.2 L (3.5-5.0) g/dL Procalcitonin 0.42 H (0.02-0.09) ng/mL 05/02/22 Range/Units 06:51 WBC (3.8-10.6) k/uL RBC (4.30-5.90) m/uL Hgb (13.0-17.5) gm/dL Hct (39.0-53.0) % MCHC (31.0-37.0) g/dL Neutrophils # (1.3-7.7) k/uL Lymphocytes # (1.0-4.8) k/uL Monocytes # (0-1.0) k/uL Sodium (137-145) mmol/L Chloride (98-107) mmol/L Carbon Dioxide (22-30) mmol/L BUN (9-20) mg/dL Creatinine (0.66-1.25) mg/dL Glucose (74-99) mg/dL POC Glucose (mg/dL) 181 H (70-110) mg/dL ALT (4-49) U/L Total Protein (6.3-8.2) g/dL Albumin (3.5-5.0) g/dL Procalcitonin (0.02-0.09) ng/mL Microbiology - Last 24 Hours (Table) 04/30/22 16:45 Gram Stain - Preliminary Pleural Fluid Body Fluid Culture - Preliminary 04/30/22 16:45 Acid Fast Bacilli Smear - Final Pleural Fluid Acid Fast Bacilli Culture - Preliminary 04/29/22 23:30 Gram Stain - Preliminary Sputum Sputum Culture - Preliminary 04/29/22 09:27 Blood Culture - Preliminary Blood No Growth after 48 hours 04/29/22 09:22 Blood Culture - Preliminary Blood No Growth after 48 hours Assessment and Plan (1) Leukocytosis Status: Acute Code(s): D72.829 - ELEVATED WHITE BLOOD CELL COUNT, UNSPECIFIED SNOMED Code(s): 931957951 Plan: 1patient with a leukocytosis in this patient who is postop day #13 mitral valve repair and CABG x3 patient did not have any fever during this hospital stay and the white count has been slowly creeping up over the last 5 days source possible cath versus UTI versus his sacral pressure ulcer, patient started as well as vein grafting sites looks clean without evidence of any cellulitis he did have a thoracocentesis with fluid does not look infected. 2we will check blood cultures UA and culture CRP. 3we will apply Medihoney to the sacral wound and keep the area of the pressure. 4continue the patient on empiric Cefepime at this point We will follow on clinical condition and cultures to further adjust medication if needed Thank you for this consultation will follow this patient along with you Time with Patient: Greater than 30
[2022-05-03 03:53] LABS: Appearance,Urine Cloudy (Clear); Bilirubin,Urine Negative (Negative); Blood,Urine Moderate (Negative); Color,Urine Light Yellow; Glucose,Urine (UA) Negative (Negative); Ketones,Urine Negative (Negative); Leukocyte Esterase,Urine Negative (Negative); Mucus,Urine Rare /hpf; Nitrite,Urine Negative (Negative); PH, Urine 6.5 (5.0-8.0); Protein,Urine Negative (Negative); RBC,Urine 10 /hpf (0-5); Specific Gravity,Urine 1.011 (1.001-1.035); Urobilinogen,Urine <2.0 mg/dL (<2.0); WBC,Urine 1 /hpf (0-5)
[2022-05-03 06:31] LABS: Basophils # (A) 0.1 k/uL (0-0.2); Basophils % (A) 0 %; Eosinophils # (A) 0.3 k/uL (0-0.7); Eosinophils % (A) 2 %; HCT 24.6 % (39.0-53.0); HGB 7.5 gm/dL (13.0-17.5); Hypochromasia Marked; Lymphocytes # (A) 0.5 k/uL (1.0-4.8); Lymphocytes % (A) 3 %; MCH 29.8 pg (25.0-35.0); MCHC 30.3 g/dL (31.0-37.0); MCV 98.1 fL (80.0-100.0); Mean Platelet Volume 8.3; Monocytes # (A) 1.2 k/uL (0-1.0); Monocytes % (A) 7 %; Neutrophils # (A) 14.6 k/uL (1.3-7.7); Neutrophils % (A) 86 %; Platelet Count 372 k/uL (150-450); Poikilocytosis Slight; RBC 2.51 m/uL (4.30-5.90); RDW 15.1 % (11.5-15.5)
[2022-05-03 06:43] LABS: Glucose,Whole Blood 173 mg/dL (70-110)
[2022-05-03] MEDS: INSULIN ASPART (NovoLOG) 100 UNIT/ML VIAL SQ SCH ×4 (06:45→21:14)
[2022-05-03 06:58] LABS: Albumin 3.1 g/dL (3.5-5.0); Calcium 8.6 mg/dL (8.4-10.2); Potassium 3.7 mmol/L (3.5-5.1); Total Bilirubin 1.1 mg/dL (0.2-1.3); Total Protein 5.5 g/dL (6.3-8.2)
[2022-05-03 07:59] LABS: C Reactive Protein 5.3 mg/dL (<1.0)
[2022-05-03] MEDS: HEPARIN SODIUM,PORCINE/PF 5,000 UNIT/0.5 ML SYRINGE SQ SCH (07:59)
[2022-05-03] MEDS: POTASSIUM CHLORIDE ER 10 MEQ TAB.ER.PRT PO SCH (07:59)
[2022-05-03] MEDS: ATORVASTATIN 40 MG TAB PO SCH (08:00)
[2022-05-03] MEDS: METOPROLOL TARTRATE 25 MG TAB PO SCH ×2 (08:00→21:14)
[2022-05-03] MEDS: AMIODARONE 200 MG TAB PO SCH ×2 (08:00→21:14)
[2022-05-03] MEDS: CEFEPIME 2 GM in SODIUM CHLORIDE 0.9% 100 ML IVPB SCH ×2 (08:00→21:13)
[2022-05-03] MEDS: FERROUS SULFATE 325 MG TAB PO SCH ×2 (08:00→21:14)
[2022-05-03] MEDS: ASCORBIC ACID 500 MG TAB PO SCH (08:00)
[2022-05-03] MEDS: TAMSULOSIN 0.4 MG CAP.ER.24H PO SCH (08:00)
[2022-05-03] MEDS: acetaZOLAMIDE 250 MG TAB PO SCH ×2 (08:02→21:14)
[2022-05-03] MEDS: ISOSORBIDE MONONITRATE ER 15 MG TAB PO SCH ×2 (08:02→11:24)
--- NOTE | 2022-05-03 08:08 | XR ---
EXAMINATION TYPE: XR chest 1V portable DATE OF EXAM: 05/03/2022 HISTORY: Shortness of breath. COMPARISON: 05/02/2022 TECHNIQUE: Single view of the chest is submitted. FINDINGS: Demonstrated are scattered senescent parenchymal change. Continued pulmonary venous congestion with cardiomegaly and small effusions as well as scattered infi ltrates. Hilar and mediastinal structures are within normal limits. Degenerative changes are seen of the dorsal spine. IMPRESSION: 1. Stable chest which may be on the basis of congestive failure.
[2022-05-03] MEDS: APIXABAN 5 MG TAB PO SCH ×2 (08:11→21:13)
[2022-05-03] MEDS: ASPIRIN 81 MG PO SCH (08:12)
[2022-05-03] MEDS: IPRATROPIUM-ALBUTEROL 3 ML NEB INHALATION SCH ×4 (08:22→20:00)
[2022-05-03] MEDS: SYMBICORT 160-4.5 MCG INHALER INHALATION SCH ×2 (08:22→20:00)
[2022-05-03] MEDS: NON FORMULARY DRUG SQ SCH (08:28)
[2022-05-03] MEDS: ACETAMINOPHEN TAB 325 MG TAB PO PRN ×2 (08:28→17:46)
[2022-05-03] MEDS: guaiFENesin-DM 600/30MG 1 EACH TAB.ER.12H PO SCH ×2 (08:31→21:14)
[2022-05-03] MEDS: BUMETANIDE 0.25 MG/ML 10 ML VIAL IV SCH (09:16)
--- NOTE | 2022-05-03 09:37 | P.PN ---
Subjective Progress Note Date: 05/03/22 Principal diagnosis: Severe mitral valve regurgitation, coronary artery disease, paroxysmal atrial fibrillation, patent foramen ovale, tricuspid regurgitation, chronic systolic congestive heart failure. Previous medical history of hypertension, hyperlipidemia, coronary artery disease with history of previous PCI, non-ST elevated myocardial infarction in November 2021, ischemic cardiomyopathy with EF 40- 45%, right internal carotid stenosis 50-79%, renal insufficiency, anemia with history of GI bleed in November 2021 S/P transfusion PRBCs, diabetes mellitus type 2, osteoarthritis, severe COPD, chronic ongoing nicotine dependence, remote history of pneumonia, chronic low back pain and hearing disorder. Nasal swab positive for MSSA preoperative POD #14 Mitral valve repair with 28 mm physio-2 ring, CABG 3 with saphenous vein grafts to first diagonal, obtuse marginal, posterior descending coronary arteries, closure of PFO, endovascular vein harvest, modified Castanon maze procedure with full left-sided lesion set and ligation of the left atrial appendage, SCOTT by anesthesia. Protamine reaction intraoperative Postoperative acute blood loss anemia, expected given his history of anemia, hemodilution and cardiopulmonary bypass Acute on chronic kidney failure, likely from hypotension from intraoperative protamine reaction Elevated transaminases, likely from hypotension from intraoperative protamine reaction Left pleural effusion, status post left-sided thoracentesis with removal of [address] Aguilar Leukocytosis, afebrile, CRP and pro-calcitonin trending down, sputum culture negative, no pneumonia, no UTI, likely due to sacral stage II ulcer The patient was seen and examined this morning sitting up in a recliner in the intensive care unit in no acute distress. Currently in controlled atrial fibrillation, hemodynamically stable. Currently on 3 L nasal cannula with oxygen saturation in the mid 90s, able to achieve 1000 mL on his incentive spirometer. States pain is controlled on current medication regimen, pain is generally with coughing. Sacral decubitus ulcer stage II present due to lack of mobility. Does complain of some increased shortness of breath this morning. Infectious disease consulted yesterday for leukocytosis. Labs and chest x-ray reviewed. Objective - Vital Signs Vital signs: Vital Signs Temp 97.7 F 05/03/22 04:00 Pulse 80 05/03/22 08:35 Resp 19 05/03/22 07:00 BP 102/60 05/03/22 07:00 Pulse Ox 97 05/03/22 07:00 FiO2 100 04/22/22 16:00 Intake & Output 05/02/22 05/03/22 05/03/22 18:59 06:59 18:59 Intake Total 600 250 Output Total 2250 1575 Balance -1650 -1325 Weight 96.4 kg 94.6 kg Intake: Intake, IV Titration 100 Amount Cefepime 2 gm In Sodium 100 Chloride 0.9% 100 ml @ 25 mls/hr IVPB Q12HR [facility] Rx #:[id number] Oral 500 250 Output: Urine 2250 1575 Other: Voiding Method Indwelling Catheter Indwelling Catheter # Bowel Movements 1 ABP, PAP, CO, CI - Last Documented Arterial Blood Pressure 137/47 Pulmonary Artery Pressure 67/18 Cardiac Output 5.8 Cardiac Index 2.8 - Exam CONSTITUTIONAL: Appears mostly comfortable, cooperative, very hard of hearing RESPIRATORY: Lungs sounds diminished bilaterally. Respirations even, nonlabored. Currently on 3 L high flow nasal cannula with oxygen saturation 94%. Able to achieve 1000 mL on incentive spirometry. Strong nonproductive cough. CARDIOVASCULAR: S1, S2 present. Irregular rate and rhythm, controlled atrial fibrillation on telemetry. Sternum stable. Palpable peripheral pulses bilaterally. Bilateral lower extremity edema present. No calf pain or tenderness noted. Heart hugger in place. Antiembolism stockings, SCDs present. GASTROINTESTINAL: Abdomen soft, nontender, nondistended. Active bowel sounds present 4 quadrants. Tolerating diet. Positive bowel movement 05/02 GENITOURINARY: Mooney present draining clear, yellow urine. Output overnight 75-125 mL per hour, 3825 mL in the last 24 hours INTEGUMENTARY: Skin is warm and dry. Anterior chest incision well approximated. Bilateral EVH site well approximated. Stage II present to sacrum NEUROLOGIC: Cranial nerves II through XII intact MUSKULOSKELETAL: Able to move all extremities, strength equal bilaterally PSYCHIATRIC: Oriented to person place and time - Labs CBC & Chem 7: 05/03/22 05:54 05/03/22 05:54 Labs: Abnormal Lab Results - Last 24 Hours (Table) 05/02/22 05/02/22 05/02/22 Range/Units 05:35 11:31 16:20 WBC (3.8-10.6) k/uL RBC (4.30-5.90) m/uL Hgb (13.0-17.5) gm/dL Hct (39.0-53.0) % MCHC (31.0-37.0) g/dL Neutrophils # (1.3-7.7) k/uL Lymphocytes # (1.0-4.8) k/uL Monocytes # (0-1.0) k/uL Sodium (137-145) mmol/L Chloride (98-107) mmol/L Carbon Dioxide (22-30) mmol/L BUN (9-20) mg/dL Creatinine (0.66-1.25) mg/dL Glucose (74-99) mg/dL POC Glucose (mg/dL) 187 H 156 H (70-110) mg/dL ALT (4-49) U/L C-Reactive Protein (<1.0) mg/dL Total Protein (6.3-8.2) g/dL Albumin (3.5-5.0) g/dL Procalcitonin 0.42 H (0.02-0.09) ng/mL Urine Blood (Negative) Urine RBC (0-5) /hpf Urine Mucus (None) /hpf 05/02/22 05/03/22 05/03/22 Range/Units 20:35 03:23 05:54 WBC 17.0 H (3.8-10.6) k/uL RBC 2.51 L (4.30-5.90) m/uL Hgb 7.5 L (13.0-17.5) gm/dL Hct 24.6 L (39.0-53.0) % MCHC 30.3 L (31.0-37.0) g/dL Neutrophils # 14.6 H (1.3-7.7) k/uL Lymphocytes # 0.5 L (1.0-4.8) k/uL Monocytes # 1.2 H (0-1.0) k/uL Sodium (137-145) mmol/L Chloride (98-107) mmol/L Carbon Dioxide (22-30) mmol/L BUN (9-20) mg/dL Creatinine (0.66-1.25) mg/dL Glucose (74-99) mg/dL POC Glucose (mg/dL) 254 H (70-110) mg/dL ALT (4-49) U/L C-Reactive Protein (<1.0) mg/dL Total Protein (6.3-8.2) g/dL Albumin (3.5-5.0) g/dL Procalcitonin (0.02-0.09) ng/mL Urine Blood Moderate H (Negative) Urine RBC 10 H (0-5) /hpf Urine Mucus Rare H (None) /hpf 05/03/22 05/03/22 Range/Units 05:54 06:41 WBC (3.8-10.6) k/uL RBC (4.30-5.90) m/uL Hgb (13.0-17.5) gm/dL Hct (39.0-53.0) % MCHC (31.0-37.0) g/dL Neutrophils # (1.3-7.7) k/uL Lymphocytes # (1.0-4.8) k/uL Monocytes # (0-1.0) k/uL Sodium 133 L (137-145) mmol/L Chloride 90 L (98-107) mmol/L Carbon Dioxide 37 H (22-30) mmol/L BUN 64 H (9-20) mg/dL Creatinine 1.54 H (0.66-1.25) mg/dL Glucose 143 H (74-99) mg/dL POC Glucose (mg/dL) 173 H (70-110) mg/dL ALT 92 H (4-49) U/L C-Reactive Protein 5.3 H (<1.0) mg/dL Total Protein 5.5 L (6.3-8.2) g/dL Albumin 3.1 L (3.5-5.0) g/dL Procalcitonin (0.02-0.09) ng/mL Urine Blood (Negative) Urine RBC (0-5) /hpf Urine Mucus (None) /hpf Microbiology - Last 24 Hours (Table) 04/29/22 23:30 Gram Stain - Final Sputum Sputum Culture - Final 04/29/22 09:27 Blood Culture - Preliminary Blood No Growth after 72 hours 04/29/22 09:22 Blood Culture - Preliminary Blood No Growth after 72 hours 04/30/22 16:45 Gram Stain - Preliminary Pleural Fluid Body Fluid Culture - Preliminary Assessment and Plan Assessment: 1. Severe mitral valve regurgitation, status post mitral valve repair 2. Coronary artery disease, previous PCI, previous non-STEMI, status post CABG 3 3. History of paroxysmal atrial fibrillation, previous cardioversion, on Eliquis outpatient for anticoagulation, status post modified Castanon maze and ligation of left atrial appendage 4. Patent foramen ovale, status post closure 5. Tricuspid regurgitation 6. Chronic systolic congestive heart failure, ischemic cardiomyopathy with EF 40-45% 7. History of hypertension 8. History hyperlipidemia, treated, cholesterol 150, LDL 72 9. Right internal carotid stenosis 50-79% 10. Anemia with history of GI bleed in November 2021 S/P transfusion PRBCs 11. Acute on chronic renal failure, baseline creatinine 1.28-1.6 12. Diabetes mellitus type 2, preoperative hemoglobin A1c 5.6% 13. Osteoarthritis 14. Severe COPD, preoperative FEV1 41% of predicted 15. Chronic ongoing nicotine dependence 16. Remote history of pneumonia 17. Chronic low back pain, hearing disorder 18. Nasal swab positive for MSSA preoperative 19. Postoperative acute blood loss anemia, expected 20. Elevated transaminases 21. Protamine reaction intraoperative 22. Leukocytosis, afebrile, CRP and pro-calcitonin trending down, sputum culture negative, no pneumonia, no UTI, likely due to sacral stage II ulcer 23. Medical debility, generalized weakness 24. Stage II decubitus to his buttocks 25. Small left-sided pleural effusion, status post left-sided thoracentesis on 04/30/2022 26. Urinary retention possibly secondary to constipation Plan: 1. Continue low dose aspirin, beta siomara, low dose Imdur, statin 2. Continue amiodarone, will taper dose tomorrow. Eliquis initiated today 3. Continue bumex 2 mg IV daily. Diamox iniated by Dr. Bynum 4. Wean O2 as tolerated. Encourage incentive spirometry 10 times every hour while awake. Bronchodilators per pulmonology 5. Increase activity, ambulate as tolerated. PT/OT/cardiac rehab following 6. Will monitor daily labs and chest x-rays. Electronic replacement per pro tocol 7. GI/DVT prophylaxis. 8. Insulin management per primary care service. Patient is a diabetic with a preoperative hemoglobin A1c of 5.6% on multiple oral medications, needs tight blood sugar control 9. Pain control with current medication regimen. Avoid narcotics 10. Continue Mooney catheter for 1 week before another trial void per urology recommendations. Continue Flomax 11. Strict accurate intake and output. Daily weights. 12. Dr. Chen consulted yesterday due to leukocytosis. Continue cefepime. UA negative, sputum culture negative. CRP, pro-calcitonin trending down. Remains afebrile 13. Smoking cessation counseling and education provided to patient and family 14. Medihoney ordered for sacral decubitus per Dr. Chen 15. Plan is for discharge to inpatient rehab due to medical debility in need for daily physician input regarding activity level, lab work and medication adjustments. Hopeful to discharge in the next 24-48 hours to [facility] 16. More recommendations to follow based on patient's clinical course.
[2022-05-03 11:13] LABS: Glucose,Whole Blood 212 mg/dL (70-110)
[2022-05-03] MEDS ORDERED: ANIDULAFUNGIN 200 MG in SODIUM CHLORIDE 0.9% 200 ML IVPB ONE (12:30)
--- NOTE | 2022-05-03 12:56 | P.PN ---
Subjective Progress Note Date: 05/03/22 Principal diagnosis: Postoperative day #14 Mitral valve repair with 28 mm physio-2 ring, CABG 3 with saphenous vein grafts to first diagonal, obtuse marginal, posterior descending coronary arteries, closure of PFO, endovascular vein harvest, modified Castanon maze procedure with full left-sided lesion set and ligation of the left atrial appendage, SCOTT by anesthesia. Protamine reaction intraoperative Reevaluated today on 04/30/22, patient is sitting up in a bedside chair, he is awake alert oriented 3, he does complain of shortness of breath, remind you that the patient does have history of severe underlying COPD, FEV1 is normally just over 1 L, 42% of the predicted value. Patient is on bronchodilators for his underlying COPD. Chest x-ray is showing small pleural effusions, not large enough to consider thoracentesis. Remains on diuretics in the form of Bumex. Patient is also on metoprolol 25 twice a day and on amiodarone. Patient does not seem to be in distress, he is on 3 L nasal cannula. WBC count today 17.8 hemoglobin is 7.1, electrolytes are normal BUN is 84 creatinine 1.83, baseline is 1.43. The patient is seen today 05/01/2022 in follow-up in the intensive care unit. He is currently sitting up in a chair at the bedside. Awake and alert in no acute distress. Feeling a bit stronger today compared to yesterday. He is maintaining good O2 saturations in the mid 90s on 2 L/m per nasal cannula. He is afebrile. Hemodynamically stable. He did undergo a left-sided thoracentesis yesterday with approximately 850 mL of slightly serosanguineous fluid removed. This was transudate with the protein of 1.8 and an LDH 175. Chest x-ray shows improved aeration. No pneumothorax post procedure. He is continuing to work with the incentive spirometer. Follow-up limited echocardiogram revealed that ejection fraction of 45-50% with atypical septal motion. Evidence of mitral valve repair. Moderate aortic stenosis with a mean gradient 20 mmHg. No ev idence of pericardial effusion. He is status post 2 units of packed red blood cells, 2 units of fresh frozen plasma and 1 unit of platelets this admission. White count 15.3. Hemoglobin 7.2. Platelets 305. Sodium 131. Potassium 4.0. Bicarb 32. BUN 79. Creatinine 1.57. Glucose 143. AST 43. ALT 131. Albumin 3.2. He remains on bronchodilators, antibiotics in the form of cefepime. Heparin for DVT prophylaxis. Continued on amiodarone. Currently in a regular rhythm. Reevaluated today on 05/02/2022, patient is doing great, much better today compared to the last few days, breathing easier, does not seem to be in any distress. Chest x-ray shows a small tiny pleural effusions not large enough to consider repeat thoracentesis. WBC count is 16.9 hemoglobin is 7.4. Electrodes are normal BUN is 77 creatinine 1.54. Reevaluated today on 05/03/22, patient is basically about the same, today he seems to be a bit more short of breath but he was yesterday. Chest x-ray is basically about the same, patient remains on diuretics, remains on bronchodilators, remains on 3 L nasal cannula. No major change overall in the last 24 hours except he seems to be more symptomatic today. Patient was noted to have a bit of leukocytosis today, WBC count is 17.0 hemoglobin is 7.5, but no clear-cut evidence of infection. Basic metabolic profile is normal. Urinalysis is unremarkable. Patient was seen by infectious disease on consultation, he is now on empiric cefepime although no clear-cut evidence of infection except the patient does have leukocytosis with Objective - Vital Signs Vital signs: Vital Signs Temp 98.1 F 05/03/22 12:00 Pulse 68 05/03/22 12:00 Resp 22 05/03/22 12:00 BP 103/60 05/03/22 12:00 Pulse Ox 70 L 05/03/22 12:00 FiO2 40 05/03/22 12:00 Intake & Output 05/02/22 05/03/22 05/03/22 18:59 06:59 18:59 Intake Total 600 250 360 Output Total 2250 1575 1025 Balance -4463 -1393 -993 Weight 96.4 kg 94.6 kg Intake: Intake, IV Titration 100 Amount Cefepime 2 gm In Sodium 100 Chloride 0.9% 100 ml @ 25 mls/hr IVPB Q12HR [facility] Rx #:[id number] Oral 500 250 360 Output: Urine 2250 1575 1025 Other: Voiding Method Indwelling Catheter Indwelling Catheter Indwelling Catheter # Bowel Movements 1 ABP, PAP, CO, CI - Last Documented Arterial Blood Pressure 137/47 Pulmonary Artery Pressure 67/18 Cardiac Output 5.8 Cardiac Index 2.8 - Exam Physical Exam: Revealed a 72-year-old white male sitting in a bedside chair, in no distress. On 3 L nasal cannula O2 saturations 94%. Head: Atraumatic, normocephalic. HEENT:[Neck is supple.] [No neck masses.] [No thyromegaly.] [No JVD.] Chest: Diminished breath sounds at the bases with crackles at the bases no rhonchi and no wheezes Cardiac Exam: Irregular irregular rhythm. [Normal S1 and S2, no S3 gallop, no murmur.] Abdomen: [Soft, nontender, no megaly, no rebound, no guarding, normal bowel sounds.] Extremities: [No clubbing, 1+ bipedal edema, no cyanosis.] Neurological Exam: [No focal neurologic deficit.] Alert oriented 3. Psychiatric: Normal mood affect and normal mental status examination. Skin: No rashes. - Labs CBC & Chem 7: 05/03/22 05:54 05/03/22 05:54 Labs: Abnormal Lab Results - Last 24 Hours (Table) 05/02/22 05/02/22 05/03/22 Range/Units 16:20 20:35 03:23 WBC (3.8-10.6) k/uL RBC (4.30-5.90) m/uL Hgb (13.0-17.5) gm/dL Hct (39.0-53.0) % MCHC (31.0-37.0) g/dL Neutrophils # (1.3-7.7) k/uL Lymphocytes # (1.0-4.8) k/uL Monocytes # (0-1.0) k/uL Sodium (137-145) mmol/L Chloride (98-107) mmol/L Carbon Dioxide (22-30) mmol/L BUN (9-20) mg/dL Creatinine (0.66-1.25) mg/dL Glucose (74-99) mg/dL POC Glucose (mg/dL) 156 H 254 H (70-110) mg/dL ALT (4-49) U/L C-Reactive Protein (<1.0) mg/dL Total Protein (6.3-8.2) g/dL Albumin (3.5-5.0) g/dL Urine Blood Moderate H (Negative) Urine RBC 10 H (0-5) /hpf Urine Mucus Rare H (None) /hpf 05/03/22 05/03/22 05/03/22 Range/Units 05:54 05:54 06:41 WBC 17.0 H (3.8-10.6) k/uL RBC 2.51 L (4.30-5.90) m/uL Hgb 7.5 L (13.0-17.5) gm/dL Hct 24.6 L (39.0-53.0) % MCHC 30.3 L (31.0-37.0) g/dL Neutrophils # 14.6 H (1.3-7.7) k/uL Lymphocytes # 0.5 L (1.0-4.8) k/uL Monocytes # 1.2 H (0-1.0) k/uL Sodium 133 L (137-145) mmol/L Chloride 90 L (98-107) mmol/L Carbon Dioxide 37 H (22-30) mmol/L BUN 64 H (9-20) mg/dL Creatinine 1.54 H (0.66-1.25) mg/dL Glucose 143 H (74-99) mg/dL POC Glucose (mg/dL) 173 H (70-110) mg/dL ALT 92 H (4-49) U/L C-Reactive Protein 5.3 H (<1.0) mg/dL Total Protein 5.5 L (6.3-8.2) g/dL Albumin 3.1 L (3.5-5.0) g/dL Urine Blood (Negative) Urine RBC (0-5) /hpf Urine Mucus (None) /hpf 05/03/22 Range/Units 11:12 WBC (3.8-10.6) k/uL RBC (4.30-5.90) m/uL Hgb (13.0-17.5) gm/dL Hct (39.0-53.0) % MCHC (31.0-37.0) g/dL Neutrophils # (1.3-7.7) k/uL Lymphocytes # (1.0-4.8) k/uL Monocytes # (0-1.0) k/uL Sodium (137-145) mmol/L Chloride (98-107) mmol/L Carbon Dioxide (22-30) mmol/L BUN (9-20) mg/dL Creatinine (0.66-1.25) mg/dL Glucose (74-99) mg/dL POC Glucose (mg/dL) 212 H (70-110) mg/dL ALT (4-49) U/L C-Reactive Protein (<1.0) mg/dL Total Protein (6.3-8.2) g/dL Albumin (3.5-5.0) g/dL Urine Blood (Negative) Urine RBC (0-5) /hpf Urine Mucus (None) /hpf Microbiology - Last 24 Hours (Table) 04/29/22 09:27 Blood Culture - Preliminary Blood No Growth after 96 hours 04/29/22 09:22 Blood Culture - Preliminary Blood No Growth after 96 hours 04/30/22 16:45 Gram Stain - Preliminary Pleural Fluid Body Fluid Culture - Preliminary 04/29/22 23:30 Gram Stain - Final Sputum Sputum Culture - Final Assessment and Plan Assessment: Impression: 1. Severe mitral valve regurgitation, status post mitral valve repair, postoperative day # 14 2. Coronary artery disease, previous PCI, previous non-STEMI, status post CABG 3, postop day # 14 3. History of paroxysmal atrial fibrillation, previous cardioversion, on [facility] outpatient for anticoagulation, status post modified Castanon maze and ligation of left atrial appendage, postop day # 14 4. Patent foramen ovale, status post closure, postop day # 14 5. Atrial fibrillation, expected outcome of surgery and the patient is back to normal sinus rhythm. The patient is currently on oral amiodarone, and metoprolol. No anticoagulations yet. 6. Chronic systolic congestive heart failure, ischemic cardiomyopathy with EF 40-45% 7. History of hypertension 8. History hyperlipidemia, treated, cholesterol 150, LDL 72 9. Right internal carotid stenosis 50-79% 10. Anemia with history of GI bleed in November 2021 S/P transfusion PRBCs 11. Acute on chronic renal failure, creatinine is at 1.9 12. Diabetes mellitus type 2, preoperative hemoglobin A1c 5.6% currently Levemir insulin 8 units along with a sliding scale coverage 13. Osteoarthritis 14. Severe COPD, preoperative FEV1 41% of predicted 15. Chronic ongoing nicotine dependence 16. Remote history of pneumonia 17. Chronic low back pain, hearing disorder 18. Nasal swab positive for MSSA preoperative 19. Postoperative acute blood loss anemia, expected 20. Elevated transaminases, most likely due to shock liver and the significant elevation of the ALT and AST which are being monitored, and the level is also improving and there is a decline and LFTs 21. Protamine reaction intraoperative 22 decubitus ulcer stage 2 23, small left-sided pleural effusion along with some left basilar atelectasis 24 chronic right lower lobe atelectasis and chronically abnormal chest x-ray in the right lower lobe area Recommendation: Continue aspirin and Plavix beta blockers and statins. Continue diuretics. Continue amiodarone. Continue daily weights. Ambulate as much as possible and encouraged to ambulate Continue oxygen and titrate accordingly, presently down to 2 L nasal cannula. Continue bronchodilators and diuretics, the effusions are not large enough to consider thoracentesis Continue incentive spirometry Continue GI and DVT prophylaxis Continue metoprolol and amiodarone. Empiric cefepime as recommended by infectious disease for his leukocytosis. Possible rehab placement We'll continue to follow Time with Patient: Less than 30
--- NOTE | 2022-05-03 13:11 | P.PN ---
Progress Note - Text Progress Note Date: 05/03/22 Patient is a pleasant 72-year-old male came in the for elective mitral valve repair, CABG x 3 vessel, maze procedure, PFO closure. Patient is extubated sitting in the chair patient still has a Lawrence-Varghese catheter, CVP of around 12, cardiac index 3.1 patient creatinine went up to 1.70 resulting elevated potassium of 5.5 patient is off pressor support, off nitro drip patient still has 2 mediastinal and one left-sided chest tube. 04/21/2022 Patient is evaluated in ICU today, sitting up in chair. He is postoperative day #2 for elective mitral valve repair, hematocrit bypass grafting maze procedure and PFO closure. He is on BiPAP with fio2 of 40% Continues with mediastinal/left pleural chest tubes. Continue with indwelling catheter. Received dose of IV albumin yesterday afternoon. Chest xray today showing ongoing mild pulmonary vascular congestion, increasing patchy bibasilar opacities, atelectasis vs. pulmonary edema. Currently on lasix gtt at 10mls/hr, continues on dopamine gtt at 3.68 mls/hr. Continues on insulin gtt and blood glucose remains in the 140 to 130s. Labs today showing sodium 132, potassium 6.1 improved to 5.4, BUN 41, creatinine 2.53, elevated liver enzymes. Hgb 7.3. 04/22/2022 Patient continues to be monitored closely in intensive care unit, he is postoperative day #3 for elective mitral valve repair, maze procedure, PFO closure. Managed by primary team. He had limited echocardiogram completed showing EF 45 to 50%, mild to moderate MR, moderate pulmonary hypertension with moderate TR. Chest xray today shows slight improvement in pulmonary vascular congestion. Maintained on lasix gtt at 10mls/hr, dopamine gtt, Continues with 2 mediastinal chest tubes. Continues with indwelling catheter. Continues with right IJ swan/cordis, right radial arterial line. He has been weaned off BiPAP currently on high flow cannula at 15L. He has been tolerating some diet. Continues on insulin gtt which will continue until his diet stabilizes. Current glucose in the 140s. Creatinine today 3.14. April 23: I assumed care of patient today from [facility] Hospitalist. ICU. In a recliner. Tired. Little oral intake. Nasal cannula. Drips include IV dopamine and Lasix. Some shortness of breath. Mooney catheter. 04/24/2022: ICU. Up. 4 L nasal cannula. Did eat better. Edema present. On the Lasix drip 5 mg an hour. Some improvement in creatinine. 04/25/2022: ICU. Up in a recliner. Eating better. at the bedside. Edema present. Off Lasix drip. Feeling better. Creatinine coming down. LFTs improving. Home dose of Victoza was started 04/26/2022: ICU. Up in a recliner. 4 L nasal cannula. Eating about 50%. Accu-Cheks noted. 04/27/2022: ICU: Patient went into atrial fibrillation overnight. Put on oral amiodarone and Lopressor per CTS.. Some worsening of shortness of breath. Placed on IV Lasix. Eating some. Up in a recliner. 04/28/2022: ICU. Patient received Lopressor today for the A. fib. Patient went down into sinus rhythm. Blood pressure also dropped her was 70 systolic. Oxygen increased to 4 L. Short of breath. Patient did walk 10-12 steps up to the door. Eating fair. Lower extremity edema edema present. Up in a chair. Tired. 04/29/2022: ICU. Short of breath. 3 L nasal cannula. Eating fair. Edema pre sent. Getting Bumex. Getting IV albumin and IV calcium. Using incentive spirometry. Up in a chair. Discussed with at the bedside. Increasing white count, infiltrated urine chest x-ray suggestive of pneumonia. Started on IV cefepime 04/30/2022: ICU. Remains short of breath. 3 L nasal cannula. Started on IV cefepime yesterday.. Oral intake fair. Edema present. Remains on Bumex. Fo sher catheter. Discussed with patient and at the bedside. Discussed with Dr. Cortez from cardiothoracic surgery. 05/01/2022: ICU. Zaroxolyn was added. Good diuresis. Breathing better. On IV cefepime. Left paracentesis is done. 850 mL removed. Oral intake fair. Breathing a bit better. Telemetry shows sinus rhythm. 2 L nasal cannula. at the bedside. Will DC Actos. Even though smaller dose. Given CHF renal failure. Increase Lantus to 12 units. 05/02/2022: ICU. Over 3 is a negative fluid balance. Last 24 hours. Some improvement in breathing. Oral intake fair. Remains in atrial fibrillation controlled. 2 L nasal cannula. Add Diamox. 4 metabolic alkalosis 05/03/2022: ICU. This morning patient became short of breath. Dr. Chen from [place] consulted for sacral decub. Remains on IV cefepime. Oral intake fair. Had a BM. On IV Bumex. I discussed with Dr. Aguilar from pulmonary. Patient is known to him. Advanced COPD. His right lung changes are chronic. Has had previous CAT scans. He may have had a located effusion. Active Medications Acetaminophen (Acetaminophen Tab 325 Mg Tab) 650 mg PO Q6HR PRN PRN Reason: Fever and/ or Pain Last Admin: 05/03/22 08:28 Dose: 650 mg Acetazolamide (Acetazolamide 250 Mg Tab) 250 mg PO BID [facility] Last Admin: 05/03/22 08:02 Dose: 250 mg Albuterol/Ipratropium (Ipratropium-Albuterol 3 Ml Neb) 3 ml INHALATION RT-Q2H PRN PRN Reason: Shortness Of Breath Or Wheezing Last Admin: 04/29/22 23:30 Dose: 3 ml Albuterol/Ipratropium (Ipratropium-Albuterol 3 Ml Neb) 3 ml INHALATION RT-QID [facility] Last Admin: 05/03/22 11:21 Dose: 3 ml Amiodarone HCl (Amiodarone 200 Mg Tab) 200 mg PO BID [facility] Stop: 05/04/22 01:00 Last Admin: 05/03/22 08:00 Dose: 200 mg Amiodarone HCl (Amiodarone 200 Mg Tab) 200 mg PO DAILY [facility] Apixaban (Apixaban 5 Mg Tab) 5 mg PO BID [facility]; Protocol Last Admin: 05/03/22 08:11 Dose: 5 mg Ascorbic Acid (Ascorbic Acid 500 Mg Tab) 500 mg PO DAILY [facility] Last Admin: 05/03/22 08:00 Dose: 500 mg Aspirin (Aspirin 81 Mg) 81 mg PO DAILY [facility] Last Admin: 05/03/22 08:12 Dose: 81 mg Atorvastatin Calcium (Atorvastatin 40 Mg Tab) 40 mg PO DAILY [facility] Last Admin: 05/03/22 08:00 Dose: 40 mg Benzocaine/Menthol (Benzocaine/Menthol Lozeng 1 Each Lozenge) 1 each MUCOUS MEM Q2HR PRN PRN Reason: Sore Throat Last Admin: 05/02/22 15:04 Dose: 1 each Bisacodyl (Bisacodyl 10 Mg Supp) 10 mg RECTAL DAILY PRN PRN Reason: Constipation Last Admin: 05/02/22 08:17 Dose: 10 mg Budesonide/Formoterol Fumarate (Symbicort 160-4.5 Mcg Inhaler) 2 puff INHALATION RT-BID [facility] Last Admin: 05/03/22 08:22 Dose: 2 puff Bumetanide (Bumetanide 0.25 Mg/Ml 10 Ml Vial) 2 mg IV DAILY [facility] Last Admin: 05/03/22 09:16 Dose: 2 mg Dextrose/Water (Dextrose 50% Syringe 50 Ml) 25 ml IVP PER PROTOCOL PRN; Protocol PRN Reason: Hypoglycemia Dextrose/Water (Dextrose 50% Syringe 50 Ml) 50 ml IVP PER PROTOCOL PRN; Protocol PRN Reason: Hypoglycemia Dextrose/Water (Dextrose 50% Syringe 50 Ml) 25 ml IVP PER PROTOCOL PRN; Protocol PRN Reason: Hypoglycemia Dextrose/Water (Dextrose 50% Syringe 50 Ml) 50 ml IVP PER PROTOCOL PRN; Protocol PRN Reason: Hypoglycemia Ferrous Sulfate (Ferrous Sulfate 325 Mg Tab) 325 mg PO BID [facility] Last Admin: 05/03/22 08:00 Dose: 325 mg Guaifenesin/Dextromethorphan (Guaifenesin-Dm 600/30mg 1 Each Tab.Er.12h) 1 each PO Q12HR [facility] Last Admin: 05/03/22 08:31 Dose: 1 each Calcium Gluconate/Sodium (Chloride 2 gm/ IV Solution) 100 mls @ 100 mls/hr IVPB ONCE PRN PRN Reason: Ionized Calcium less than 4.4 Stop: 05/19/22 23:00 Cefepime HCl 2 gm/ Sodium (Chloride) 100 mls @ 25 mls/hr IVPB Q12HR [facility]; Protocol Stop: 05/04/22 21:01 Last Admin: 05/03/22 08:00 Dose: 25 mls/hr Anidulafungin 200 mg/ Sodium (Chloride) 200 mls @ 84 mls/hr IVPB ONCE ONE; Protocol Stop: 05/03/22 14:52 Last Admin: 05/03/22 12:33 Dose: 84 mls/hr Anidulafungin 100 mg/ Sodium (Chloride) 100 mls @ 84 mls/hr IVPB DAILY [facility]; Protocol Insulin Aspart (Insulin Aspart (Novolog) 100 Unit/Ml Vial) 0 unit SQ ACHS [facility]; Protocol Last Admin: 05/03/22 12:14 Dose: 4 unit Insulin Detemir (Insulin Detemir (Levemir) 100 Unit/Ml Syr) 12 unit SQ HS [facility] Last Admin: 05/02/22 20:44 Dose: 12 unit Isosorbide Mononitrate (Isosorbide Mononitrate Er 15 Mg Tab) 15 mg PO DAILY@1200 [facility] Last Admin: 05/03/22 11:24 Dose: Not Given Magnesium Hydroxide (Magnesium Hydroxide 2,400 Mg/10 Ml Cup) 2,400 mg PO BID PRN PRN Reason: Constipation Last Admin: 04/22/22 07:08 Dose: 2,400 mg Metoprolol Tartrate (Metoprolol Tartrate 25 Mg Tab) 25 mg PO BID [facility] Last Admin: 05/03/22 08:00 Dose: 25 mg Miscellaneous Information (Potassium Replacement Protocol 1 Each Misc) 1 each MISCELLANE DAILY PRN; Protocol PRN Reason: Per Protocol Miscellaneous Information (Magnesium Replacement Protocol 1 Each Misc) 1 each MISCELLANE DAILY PRN; Protocol PRN Reason: Per Protocol Non-Formulary Medication (Non Formulary Drug) 1 each SQ DAILY [facility] Last Admin: 05/03/22 08:28 Dose: 1 each Ondansetron HCl (Ondansetron 4 Mg/2 Ml Vial) 4 mg IVP Q6HR PRN PRN Reason: Nausea And Vomiting Last Admin: 04/27/22 09:22 Dose: 4 mg Potassium Chloride (Potassium Chloride Er 10 Meq Tab.Er.Prt) 10 meq PO DAILY [facility] Last Admin: 05/03/22 07:59 Dose: 10 meq Senna/Docusate Sodium (Sennosides-Docusate Sodium 1 Each Tab) 2 each PO HS [facility] Last Admin: 05/02/22 20:44 Dose: 2 each Sodium Chloride (Sodium Chloride 0.9% Flush 10 Ml Syringe) 10 ml IV BID [facility] Last Admin: 05/03/22 08:32 Dose: 10 ml Tamsulosin HCl (Tamsulosin 0.4 Mg Cap.Er.24h) 0.4 mg PO PC-BRKFST ZULMA Last Admin: 05/03/22 08:00 Dose: 0.4 mg On examination: VITAL SIGNS: 98.1, 68, 22, 103/60, on BiPAP GENERAL APPEARANCE: Up in chair, short of breath HEENT: Normal external appearance of nose and ear. Oral cavity normal EYES: Pupils equal. Conjunctiva normal. NECK: JVD not raised. Mass not palpable. RESPIRATORY: Respiratory effort increased. Lungs diminished breath sounds. CARDIOVASCULAR: First and second sounds normal. Edema present ABDOMEN: Soft. Liver and spleen not palpable. No tenderness. No mass palpable. Mooney catheter PSYCHIATRY: AO 3, mood and affect normal INVESTIGATIONS, reviewed in the clinical context: 05/03/2022: WBC 17 hemoglobin 7.5 inches 372 potassium 3.7 BUN 64 creatinine 1.5 for 05/02/2022: WBC 16.911 7.4 potassium 3.7 BUN 77 creatinine 1.5 for bicarb 36 Limited 2-D echocardiogram [May 01]: EF 45%. [id number] MR, moderate aortic stenosis 05/01/2022: WBC 15.3 hemoglobin 7.2 platelets 305 potassium 4. 39 creatinine 1.57 04/30/2022: WBC 17.81 7.14.6 BUN [address] chest [April 29]: Moderate partial obliterate right pleural effusion, left pleural effusion, cardiomegaly. 04/29/2022: WBC 18.5 hemoglobin 7.6 platelets 272 potassium 4.9 creatinine 1.98 CRP 5.6 procalcitonin 0.7 to, AST 62, ALT 213 04/28/2022: WBC 15 hemoglobin 7.1 potassium 4.7 BUN 71 creatinine 1.50 AST 90 AST 285 04/27/2022: WBC 10.5 hemoglobin 7.3 platelets 167 potassium 4.1 BUN 75 creatinine 1.35 AST was 67 ALT 378 04/26/2022: WBC 9.1 hemoglobin 7.4 platelets 101 potassium 4.6 BUN 83 creatinine 1.5 for AST 266 ALT 477 04/25/2022: WBC 12.4 hemoglobin 7.2 potassium 4.5 BUN 85 creatinine 2.12 AST 503 ALT 619 04/24/2022: WBC 9.2 hemoglobin 7.1 platelets 122 potassium 5.1 BUN 77 creatinine 2.97 AST 1270 ALT 1038 WBC 8.2 hemoglobin 7.5 platelets 111 sodium 135 progression 6 BUN 67 creatinine 3.43 AST 3595 ALT 1512 Limited 2-D echocardiogram: EF 45-50%. Inferior wall hypokinesis. Moderate MR. Moderate pulmonary hypertension with moderate TR. Assessment and plan -Acute on chronic congestive heart exacerbation from systolic/diastolic dysfunction EF 45-50%:, precipitated by A. fib: Slow to respond IV Bumex 2 mg daily. -Suspect pneumonia, patient short of breath, infiltrate on chest x-ray, increasing white count and procalcitonin: IV cefepime -Acute hypoxic respiratory failure from pulmonary edema/pneumonia: 2 L nasal cannula -Diabetes Mellitus type 2 with hyperglycemia, Victoza , Actos-discontinue. Levemir 12 units daily at bedtime -Paroxysmal atrial fibrillation status post modified Castanon-Maze procedure,: With rapid ventricular rate: Now - sinus rhythm amiodarone ,Lopressor. -acute renal failure on chronic kidney disease stage II with renal failure is probably prerenal azotemia, cardiorenal syndrome.: Worsening Creatinine peaked at 3.43. Creatinine slowly coming down, down to 1.5 for -hyperkalemia secondary to acute renal failure: Corrected Received Lokelma. Renal diet -Acute hepatitis, likely ischemic: Improving Follow closely. GI services not available in the hospital. Hold any hepatic offensive medications. Follow LFTs patient as patient started back on amiodarone -Acute COPD exacerbation, in a smoker DuoNeb. Symbicort -Hyperlipidemia Lipitor -Sacral decubitus ulcer: Follow with ideally/Dr. Chen -Metabolic alkalosis from diuresis Diamox - coronary artery disease with previous PCI Aspirin, Lasix, Imdur, Lopressor -Acute postprocedure blood loss anemia as expected from surgery 2 units of PRBC, follow CBC -Chronic nicotine dependence -Sacral decubitus ulcer, stage II Local care - post mitral valve failure, status post CABG, status post PFO closure: Currently [id number]-[id number] MR -Moderate aortic stenosis -Moderate secondary probably hypertension Continue current treatment plan. IV cefepime. Oxygen. IV Bumex. Discussed with patient and . Discussed with Dr. Aguilar.
[2022-05-03 16:21] LABS: Glucose,Whole Blood 170 mg/dL (70-110)
[2022-05-03 21:01] LABS: Glucose,Whole Blood 208 mg/dL (70-110)
[2022-05-03] MEDS: SENNOSIDES-DOCUSATE SODIUM 1 EACH TAB PO SCH (21:14)
[2022-05-03] MEDS: INSULIN DETEMIR (LEVEMIR) 100 UNIT/ML SYR SQ SCH (21:15)
--- NOTE | 2022-05-03 23:48 | P.PN ---
Subjective Progress Note Date: 05/03/22 Principal diagnosis: Leukocytosis Patient is a 72-year-old male electively admitted to the hospital 04/19/2022 for mitral valve repair and coronary bypass grafting 3 and this patient has been afebrile however noticed to have worsening leukocytosis. On today's evaluation that is 05/03/2022, the patient denies having any fever or any chills is currently breathing comfortably denies any chest pain no worsening cough or sputum production no abdominal pain or diaphoresis or vomiting or pain to the lower back area Objective - Vital Signs Vital signs: Vital Signs Temp 97.9 F 05/03/22 08:00 Pulse 68 05/03/22 11:33 Resp 30 H 05/03/22 10:00 BP 103/60 05/03/22 10:00 Pulse Ox 94 L 05/03/22 10:00 FiO2 100 04/22/22 16:00 Intake & Output 05/02/22 05/03/22 05/03/22 18:59 06:59 18:59 Intake Total 600 250 360 Output Total 2250 1575 650 Balance -1650 -1325 -290 Weight 96.4 kg 94.6 kg Intake: Intake, IV Titration 100 Amount Cefepime 2 gm In Sodium 100 Chloride 0.9% 100 ml @ 25 mls/hr IVPB Q12HR [facility] Rx #:[id number] Oral 500 250 360 Output: Urine 2250 1575 650 Other: Voiding Method Indwelling Catheter Indwelling Catheter Indwelling Catheter # Bowel Movements 1 ABP, PAP, CO, CI - Last Documented Arterial Blood Pressure 137/47 Pulmonary Artery Pressure 67/18 Cardiac Output 5.8 Cardiac Index 2.8 - Exam GENERAL DESCRIPTION: An elderly male up in the chair in no distress RESPIRATORY SYSTEM: Unlabored breathing , decreased breath sounds at bases HEART: S1 S2 regular rate and rhythm , ABDOMEN: Soft , no tenderness EXTREMITIES: 2+ edema feet - Labs CBC & Chem 7: 05/03/22 05:54 05/03/22 05:54 Labs: Abnormal Lab Results - Last 24 Hours (Table) 05/02/22 05/02/22 05/03/22 Range/Units 16:20 20:35 03:23 WBC (3.8-10.6) k/uL RBC (4.30-5.90) m/uL Hgb (13.0-17.5) gm/dL Hct (39.0-53.0) % MCHC (31.0-37.0) g/dL Neutrophils # (1.3-7.7) k/uL Lymphocytes # (1.0-4.8) k/uL Monocytes # (0-1.0) k/uL Sodium (137-145) mmol/L Chloride (98-107) mmol/L Carbon Dioxide (22-30) mmol/L BUN (9-20) mg/dL Creatinine (0.66-1.25) mg/dL Glucose (74-99) mg/dL POC Glucose (mg/dL) 156 H 254 H (70-110) mg/dL ALT (4-49) U/L C-Reactive Protein (<1.0) mg/dL Total Protein (6.3-8.2) g/dL Albumin (3.5-5.0) g/dL Urine Blood Moderate H (Negative) Urine RBC 10 H (0-5) /hpf Urine Mucus Rare H (None) /hpf 05/03/22 05/03/22 05/03/22 Range/Units 05:54 05:54 06:41 WBC 17.0 H (3.8-10.6) k/uL RBC 2.51 L (4.30-5.90) m/uL Hgb 7.5 L (13.0-17.5) gm/dL Hct 24.6 L (39.0-53.0) % MCHC 30.3 L (31.0-37.0) g/dL Neutrophils # 14.6 H (1.3-7.7) k/uL Lymphocytes # 0.5 L (1.0-4.8) k/uL Monocytes # 1.2 H (0-1.0) k/uL Sodium 133 L (137-145) mmol/L Chloride 90 L (98-107) mmol/L Carbon Dioxide 37 H (22-30) mmol/L BUN 64 H (9-20) mg/dL Creatinine 1.54 H (0.66-1.25) mg/dL Glucose 143 H (74-99) mg/dL POC Glucose (mg/dL) 173 H (70-110) mg/dL ALT 92 H (4-49) U/L C-Reactive Protein 5.3 H (<1.0) mg/dL Total Protein 5.5 L (6.3-8.2) g/dL Albumin 3.1 L (3.5-5.0) g/dL Urine Blood (Negative) Urine RBC (0-5) /hpf Urine Mucus (None) /hpf 05/03/22 Range/Units 11:12 WBC (3.8-10.6) k/uL RBC (4.30-5.90) m/uL Hgb (13.0-17.5) gm/dL Hct (39.0-53.0) % MCHC (31.0-37.0) g/dL Neutrophils # (1.3-7.7) k/uL Lymphocytes # (1.0-4.8) k/uL Monocytes # (0-1.0) k/uL Sodium (137-145) mmol/L Chloride (98-107) mmol/L Carbon Dioxide (22-30) mmol/L BUN (9-20) mg/dL Creatinine (0.66-1.25) mg/dL Glucose (74-99) mg/dL POC Glucose (mg/dL) 212 H (70-110) mg/dL ALT (4-49) U/L C-Reactive Protein (<1.0) mg/dL Total Protein (6.3-8.2) g/dL Albumin (3.5-5.0) g/dL Urine Blood (Negative) Urine RBC (0-5) /hpf Urine Mucus (None) /hpf Microbiology - Last 24 Hours (Table) 04/29/22 09:27 Blood Culture - Preliminary Blood No Growth after 96 hours 04/29/22 09:22 Blood Culture - Preliminary Blood No Growth after 96 hours 04/30/22 16:45 Gram Stain - Preliminary Pleural Fluid Body Fluid Culture - Preliminary 04/29/22 23:30 Gram Stain - Final Sputum Sputum Culture - Final Assessment and Plan (1) Leukocytosis Current Visit: Yes Status: Acute Code(s): D72.829 - ELEVATED WHITE BLOOD CELL COUNT, UNSPECIFIED SNOMED Code(s): 112411215 Plan: 1patient with a leukocytosis in this patient who is postop day #13 mitral valve repair and CABG x3 patient did not have any fever during this hospital stay and the white count has been slowly creeping up over the last 5 days source possible cath versus UTI versus his sacral pressure ulcer, patient started as well as vein grafting sites looks clean without evidence of any cellulitis he did have a thoracocentesis with fluid does not look infected. 2 blood cultures are currently pending UA was not significantly positive CRP mildly elevated. 3we will apply Medihoney to the sacral wound and keep the area of the pressure. 4continue the patient with cefepime with worsening of the white count will add at Eraxis and monitor clinical course closely Time with Patient: Less than 30
--- NOTE | 2022-05-04 01:14 | CONS ---
CONSULTATION HISTORY OF PRESENT ILLNESS: Derek is a 72-year-old gentleman who was admitted, has been in the ICU for about 14 days following bypass surgery, mitral valve repair, closure of the PFO. He is making slow, but steady recovery. This morning, he is feeling better, remains in atrial fibrillation with controlled ventricular rate, stable hemodynamically, improving urine output and improving stable kidney functions. His BUN has dropped from 77 to 64. PHYSICAL EXAMINATION: GENERAL: Comfortable at rest. VITAL SIGNS: Blood pressure is somewhat on the lower side of 102/62, respiratory rate is 18. CHEST: Reveals diminished air entry at the bases. HEART: Reveals first and second heart sounds and a systolic murmur at the left lower sternal border. ABDOMEN: Soft. EXTREMITIES: Reveals 1+ edema. LABORATORY DATA: Show a hemoglobin of 3.7. BUN and creatinine are elevated. Hemoglobin is 7.5. ASSESSMENT: 1. Coronary artery disease, status post coronary artery bypass grafting. 2. Mitral regurgitation, status post mitral valve repair. 3. Persistent atrial fibrillation. 4. Chronic renal insufficiency. 5. Respiratory insufficiency. PLAN: Continue current medications. MMODL / IJN: [id number] /
[2022-05-04 07:04] LABS: Albumin 2.8 g/dL (3.5-5.0); Calcium 8.3 mg/dL (8.4-10.2); Magnesium 2.3 mg/dL (1.6-2.3); Potassium 3.7 mmol/L (3.5-5.1); Total Bilirubin 0.9 mg/dL (0.2-1.3)
[2022-05-04 07:12] LABS: Hypochromasia Marked; MCH 28.6 pg (25.0-35.0); MCHC 28.9 g/dL (31.0-37.0); MCV 99.1 fL (80.0-100.0); Macrocytosis Slight; Mean Platelet Volume 8.5; Platelet Count 362 k/uL (150-450); Poikilocytosis Slight; RBC 2.12 m/uL (4.30-5.90); RDW 15.3 % (11.5-15.5)
[2022-05-04 07:20] LABS: HGB 6.1 gm/dL (13.0-17.5)
--- NOTE | 2022-05-04 07:36 | PN ---
PROGRESS NOTE HISTORY OF PRESENT ILLNESS: A 72-year-old gentleman with complex and multiple medical and surgical issues. Remains in ICU 14 days after his mitral valve repair, bypass surgery, closure of the PFO, and ligation of the left atrial appendage. He is making slow, but steady recovery. Remains in atrial fibrillation with controlled ventricular rate. Blood pressure is normal. The patient is on DICTATION ENDS HERE MMODL / IJN: [id number] /
[2022-05-04 07:39] LABS: Glucose,Whole Blood 182 mg/dL (70-110)
[2022-05-04] MEDS: INSULIN ASPART (NovoLOG) 100 UNIT/ML VIAL SQ SCH ×4 (07:40→21:18)
--- NOTE | 2022-05-04 08:25 | XR ---
EXAMINATION TYPE: XR chest 1V portable DATE OF EXAM: 05/04/2022 Comparison: 05/03/2022 Clinical History: 72-year-old male post cardiac surgery Findings: Median sternotomy wires are present. Annuloplasty ring noted in the heart. Cardiac/pericardiac silhou ette remains mild to moderately enlarged. Uncoiling small right pleural effusion. Diffuse interstitia l opacities and patchy bibasilar opacities persist. Impression: Overall similar cardiomegaly with small right pleural effusion, bibasilar opacities, probably atelect asis, and pulmonary vascular congestion.
--- NOTE | 2022-05-04 08:38 | US ---
EXAMINATION TYPE: US chest DATE OF EXAM: 05/04/2022 COMPARISON: Radiograph same day CLINICAL HISTORY: 72-year-old male possible thoracentesis right side. Effusions TECHNIQUE: Targeted ultrasound of the posterior lower bilateral hemithoraces EXAM MEASUREMENTS: Right Pleural Effusion pocket size: No measurable fluid pocket visualized Left Pleural Effusion pocket size: 10.5 cm Left skin surface to fluid distance: 3.8 cm Right side NOT marked for possible thoracentesis outside the dept. Left side marked for possible thoracentesis outside the dept. Pulmonologists are able to review the images in the patient?s EMR. IMPRESSIONS: [id number] left pleural effusion with underlying atelectasis.
[2022-05-04] MEDS: IPRATROPIUM-ALBUTEROL 3 ML NEB INHALATION SCH ×4 (08:39→21:51)
[2022-05-04] MEDS: SYMBICORT 160-4.5 MCG INHALER INHALATION SCH ×2 (08:39→21:51)
[2022-05-04] MEDS: BUMETANIDE 0.25 MG/ML 10 ML VIAL IV SCH (09:11)
[2022-05-04] MEDS: ANIDULAFUNGIN 100 MG in SODIUM CHLORIDE 0.9% 100 ML IVPB SCH (09:11)
[2022-05-04] MEDS: TAMSULOSIN 0.4 MG CAP.ER.24H PO SCH (09:12)
[2022-05-04] MEDS: FERROUS SULFATE 325 MG TAB PO SCH ×2 (09:12→21:17)
[2022-05-04] MEDS: ACETAMINOPHEN TAB 325 MG TAB PO PRN ×3 (09:12→18:52)
[2022-05-04] MEDS: AMIODARONE 200 MG TAB PO SCH (09:12)
[2022-05-04] MEDS: ASPIRIN 81 MG PO SCH (09:12)
[2022-05-04] MEDS: METOPROLOL TARTRATE 25 MG TAB PO SCH ×2 (09:12→21:17)
[2022-05-04] MEDS: ASCORBIC ACID 500 MG TAB PO SCH (09:12)
[2022-05-04] MEDS: POTASSIUM CHLORIDE ER 10 MEQ TAB.ER.PRT PO SCH (09:17)
[2022-05-04] MEDS: APIXABAN 5 MG TAB PO SCH ×2 (09:17→21:17)
[2022-05-04] MEDS: ATORVASTATIN 40 MG TAB PO SCH (09:17)
[2022-05-04] MEDS: acetaZOLAMIDE 250 MG TAB PO SCH ×2 (09:20→21:18)
[2022-05-04] MEDS: guaiFENesin-DM 600/30MG 1 EACH TAB.ER.12H PO SCH ×2 (09:20→21:18)
--- NOTE | 2022-05-04 09:40 | P.CONS ---
History of Present Illness - Reason for Consult Consult date: 05/04/22 wound care - History of Present Illness Is a 72-year-old gentleman who is being seen in ICU for a pressure ulcer to the sacral. The area appears to have been present prior to admission. Patient has a stage II/stage III pressure ulcer to the sacrum measuring approximately 5 x 8 x 0.2 cm. Significant amount of nonviable tissue including eschar and slough. No granulation noted to the wound bed. No tunneling or undermining noted at this time. The periwound shows minimal redness and no excoriation or macerations noted. Patient states that he did not know that the ulceration has been there. However he does have tenderness and pain to the site at times. Ulceration has odiferous drainage noted. Review Of Systems: Constitutional: No fever, no chills, no night sweats. No weight change. No weakness, fatigue or lethargy. No daytime sleepiness. Integumentary:reports wounds, no lesions. No rash or pruritus. No unusual bruising. No change in hair or nails. Physical exam: General Appearance: Alert, cooperative, no distress, appears stated age. Skin: See HPI all other Skin color, texture, tugor normal, no rashes or lesions. Neurologic: Alert oriented x3 Assessment: 1. Stage III pressure ulcer sacral 2. Diabetes with skin ulceration Plan: 1. Apply absorptive silver moistened, sacral border foam. Change Saturday. Utilize it air-filled cushion when sitting. Change position every 2 hours as needed. Patient would benefit from advanced wound care and wound care center. Patient would also benefit from debridement to the site and possible negative pressure wound VAC. He is agreeable for treatment. We will be happy to see him in a wound care center. Thank you for the consultation any questions to contact the wound care center DNP note has been reviewed and discussed with Dr. Steve and the impression and plan of care has been directed as dictated. Past Medical History Past Medical History: Atrial Fibrillation, Blood Disorder, COPD, Diabetes Mellitus, GI Bleed, Hearing Disorder / Deafness, Hyperlipidemia, Hypertension, Myocardial Infarction (AL), Pneumonia Additional Past Medical History / Comment(s): Anemia, had GI Bleed 11/22, had 4 units of blood. Bilateral lower extremity edema. Hx AL X2. Insomnia. Hx Pneumonia. Chronic back pain. Last Myocardial Infarction Date:: 11/2021 History of Any Multi-Drug Resistant Organisms: None Reported Past Surgical History: Back Surgery, Heart Catheterization With Stent, Joint Replacement, Orthopedic Surgery Additional Past Surgical History / Comment(s): BILATERAL KNEE REPLACEMENTS, BILATERAL SHOULDER SURGERY, ONE CARDIAC STENT, back surgery X2 (lumbar d ecompression and fusion), BACK INJECTIONS, COLONOSCOPY, BILATERAL CATARACTS REMOVED WITH LENS IMPLANTS, Cardioversion. Past Anesthesia/Blood Transfusion Reactions: No Reported Reaction Date of Last Stent Placement:: 2000 Smoking Status: Current some day smoker - Past Family History Father Family Medical History: No Reported History Mother Family Medical History: No Reported History Medications and Allergies Home Medications Medication Instructions Recorded Confirmed Type Atorvastatin [Lipitor] 80 mg PO HS 04/26/14 04/12/22 History Ramipril 10 mg PO QAM 04/26/14 04/12/22 History metFORMIN HCL [Glucophage] 500 mg PO BID 04/26/14 04/12/22 History Liraglutide [Victoza 3-Casey] 1.8 mg SQ DAILY 02/19/17 04/12/22 History Metoprolol Tartrate 25 mg PO QAM 02/19/17 04/12/22 History Stool Softener(Unknown Name/Do 2 tab PO DAILY 02/19/17 04/12/22 History Vit C/E/Zn/Coppr/Lutein/Zeaxan 2 cap PO DAILY 02/19/17 04/12/22 History [Preservision Areds 2 Softgel] Acetaminophen [Tylenol Extra 500 - 1,000 mg PO DIRECTED PRN 02/02/20 04/12/22 History Strength] Pioglitazone [Actos] 15 mg PO DAILY 02/02/20 04/19/22 History Apixaban [Eliquis] 5 mg PO BID 11/09/21 04/12/22 History Fluticasone/Umeclidin/Vilanter 1 inhalation INHALATION HS 11/09/21 04/12/22 History [Trelegy Ellipta 100-62.5-25] Fenofibrate 160 mg PO HS 12/22/21 04/12/22 History Ferrous Sulfate [Feosol] 325 mg PO BID 12/22/21 04/12/22 History Furosemide [Lasix] 40 mg PO BID 12/22/21 04/12/22 History Ipratropium-Albuterol Nebulize 3 ml INHALATION QID PRN 12/22/21 04/12/22 History [Duoneb 0.5 mg-3 mg/3 ml Soln] Pantoprazole Sodium [Protonix] 40 mg PO PC-LUNCH 12/22/21 04/12/22 History Repaglinide [Prandin] 0.5 mg PO AC-SUPPER 12/22/21 04/12/22 History Mupirocin [Mupirocin 2%] 1 applic NASAL BID #1 tub 04/14/22 04/19/22 Rx Allergies Allergy/AdvReac Type Severity Reaction Status Date / Time protamine AdvReac Anaphylaxis Verified 04/22/22 07:27 Physical Exam Vitals: Vital Signs Temp Pulse Resp BP Pulse Ox 05/04/22 08:51 74 05/04/22 08:40 73 05/04/22 07:00 74 24 123/92 92 L 05/04/22 06:00 74 20 94/44 93 L 05/04/22 05:00 75 19 100/49 96 05/04/22 04:00 98.0 F 75 19 105/41 94 L 05/04/22 03:00 73 23 94/43 93 L 05/04/22 02:00 71 19 106/46 95 05/04/22 01:00 70 18 112/45 96 05/04/22 00:00 98.0 F 73 19 104/45 98 05/03/22 23:00 74 23 94/41 95 05/03/22 22:00 79 22 95/44 95 05/03/22 21:00 82 20 94/50 93 L 05/03/22 20:11 82 05/03/22 20:00 97.8 F 80 22 104/53 93 L 05/03/22 19:00 69 19 107/58 05/03/22 18:00 76 24 107/58 05/03/22 17:00 72 14 120/66 05/03/22 16:13 76 05/03/22 16:01 74 05/03/22 16:00 98.4 F 77 5 L 120/66 95 05/03/22 15:00 77 9 L 115/43 99 05/03/22 13:00 76 22 102/59 88 L 05/03/22 12:00 98 F 68 22 103/60 70 L 05/03/22 11:33 68 05/03/22 11:21 67 05/03/22 11:00 69 20 94/54 96 05/03/22 10:00 65 30 H 103/60 94 L Intake and Output 05/03/22 05/04/22 05/04/22 22:59 06:59 14:59 Intake Total 360 Output Total 740 1130 120 Balance -380 -1130 -120 Intake: Oral 360 Output: Urine 740 1130 120 Other: Voiding Method Indwelling Catheter Indwelling Catheter Weight 93.4 kg Results CBC & Chem 7: 05/04/22 06:07 05/04/22 06:07 Labs: Abnormal Lab Results - Last 24 Hours (Table) 05/03/22 05/03/22 05/03/22 Range/Units 11:12 16:20 20:59 WBC (3.8-10.6) k/uL RBC (4.30-5.90) m/uL Hgb (13.0-17.5) gm/dL Hct (39.0-53.0) % MCHC (31.0-37.0) g/dL Sodium (137-145) mmol/L Chloride (98-107) mmol/L Carbon Dioxide (22-30) mmol/L BUN (9-20) mg/dL Creatinine (0.66-1.25) mg/dL Glucose (74-99) mg/dL POC Glucose (mg/dL) 212 H 170 H 208 H (70-110) mg/dL Calcium (8.4-10.2) mg/dL ALT (4-49) U/L Total Protein (6.3-8.2) g/dL Albumin (3.5-5.0) g/dL Crossmatch 05/04/22 05/04/22 05/04/22 Range/Units 06:07 06:07 07:37 WBC 16.0 H (3.8-10.6) k/uL RBC 2.12 L (4.30-5.90) m/uL Hgb 6.1 L* (13.0-17.5) gm/dL Hct 21.0 L (39.0-53.0) % MCHC 28.9 L (31.0-37.0) g/dL Sodium 132 L (137-145) mmol/L Chloride 92 L (98-107) mmol/L Carbon Dioxide 36 H (22-30) mmol/L BUN 75 H (9-20) mg/dL Creatinine 1.75 H (0.66-1.25) mg/dL Glucose 152 H (74-99) mg/dL POC Glucose (mg/dL) 182 H (70-110) mg/dL Calcium 8.3 L (8.4-10.2) mg/dL ALT 73 H (4-49) U/L Total Protein 5.0 L (6.3-8.2) g/dL Albumin 2.8 L (3.5-5.0) g/dL Crossmatch 05/04/22 Range/Units 07:55 WBC (3.8-10.6) k/uL RBC (4.30-5.90) m/uL Hgb (13.0-17.5) gm/dL Hct (39.0-53.0) % MCHC (31.0-37.0) g/dL Sodium (137-145) mmol/L Chloride (98-107) mmol/L Carbon Dioxide (22-30) mmol/L BUN (9-20) mg/dL Creatinine (0.66-1.25) mg/dL Glucose (74-99) mg/dL POC Glucose (mg/dL) (70-110) mg/dL Calcium (8.4-10.2) mg/dL ALT (4-49) U/L Total Protein (6.3-8.2) g/dL Albumin (3.5-5.0) g/dL Crossmatch See Detail Microbiology - Last 24 Hours (Table) 04/30/22 16:45 Gram Stain - Preliminary Pleural Fluid Body Fluid Culture - Preliminary 05/03/22 05:54 Blood Culture - Preliminary Blood No Growth after 24 hours 04/29/22 09:27 Blood Culture - Preliminary Blood No Growth after 96 hours 04/29/22 09:22 Blood Culture - Preliminary Blood No Growth after 96 hours Assessment and Plan (1) Stage III pressure ulcer of sacral region Current Visit: Yes Status: Acute Code(s): L89.153 - PRESSURE ULCER OF SACRAL REGION, STAGE 3 SNOMED Code(s): 30894428170853 (2) Type 2 diabetes mellitus with other skin ulcer Current Visit: Yes Status: Acute Code(s): E11.622 - TYPE 2 DIABETES MELLITUS WITH OTHER SKIN ULCER; L98.499 - NON-PRESSURE CHRONIC ULCER OF SKIN OF SITES W UNSP SEVERITY SNOMED Code(s): 538156210
[2022-05-04] MEDS ORDERED: POTASSIUM CHLORIDE ER 20 MEQ TAB.ER PO STA (09:46)
--- NOTE | 2022-05-04 10:01 | P.PN ---
Subjective Progress Note Date: 05/04/22 Principal diagnosis: Severe mitral valve regurgitation, coronary artery disease, paroxysmal atrial fibrillation, patent foramen ovale, tricuspid regurgitation, chronic systolic congestive heart failure. Previous medical history of hypertension, hyperlipidemia, coronary artery disease with history of previous PCI, non-ST elevated myocardial infarction in November 2021, ischemic cardiomyopathy with EF 40- 45%, right internal carotid stenosis 50-79%, renal insufficiency, anemia with history of GI bleed in November 2021 S/P transfusion PRBCs, diabetes mellitus type 2, osteoarthritis, severe COPD, chronic ongoing nicotine dependence, remote history of pneumonia, chronic low back pain and hearing disorder. Nasal swab positive for MSSA preoperative POD #15 Mitral valve repair with 28 mm physio-2 ring, CABG 3 with saphenous vein grafts to first diagonal, obtuse marginal, posterior descending coronary arteries, closure of PFO, endovascular vein harvest, modified Castanon maze procedure with full left-sided lesion set and ligation of the left atrial appendage, SCOTT by anesthesia. Protamine reaction intraoperative Postoperative acute blood loss anemia, expected given his history of anemia, hemodilution and cardiopulmonary bypass Acute on chronic kidney failure, likely from hypotension from intraoperative protamine reaction Elevated transaminases, likely from hypotension from intraoperative protamine reaction Left pleural effusion, status post left-sided thoracentesis with removal of [address] Aguilar Leukocytosis, afebrile, CRP and pro-calcitonin trending down, sputum culture negative, no pneumonia, no UTI, likely due to sacral stage II ulcer The patient was seen and examined this morning with Dr. Cortez sitting up in a recliner in the intensive care unit in no acute distress. Currently in sinus rhythm, hemodynamically stable. Currently on 2 L nasal cannula with oxygen saturation in the mid 90s, able to achieve 1000 mL on his incentive spirometer. States pain is controlled on current medication regimen, pain is generally with coughing. Sacral decubitus ulcer stage II-III present due to lack of mobility. Labs and chest x-ray reviewed. Hemoglobin dropped this morning, will give packed red blood cells when available. Patient was hopefully going to rehab today, however due to need for blood transfusion will hold off transfer. Chest ultrasound ordered for possible thoracentesis, Dr. Aguilar to perform left-sided thoracentesis again today. Patient has ambulated in the hallway with assistance. Objective - Vital Signs Vital signs: Vital Signs Temp 98.0 F 12/02/22 04:00 Pulse 74 05/04/22 08:51 Resp 24 05/04/22 07:00 BP 123/92 05/04/22 07:00 Pulse Ox 92 L 05/04/22 07:00 FiO2 100 04/22/22 16:00 Intake & Output 05/03/22 05/04/22 05/04/22 18:59 06:59 18:59 Intake Total 1080 Output Total 1565 1630 470 Balance -485 -1630 -470 Weight 93.4 kg Intake: Oral 1080 Output: Urine 1565 1630 470 Other: Voiding Method Indwelling Catheter Indwelling Catheter ABP, PAP, CO, CI - Last Documented Arterial Blood Pressure 137/47 Pulmonary Artery Pressure 67/18 Cardiac Output 5.8 Cardiac Index 2.8 - Exam CONSTITUTIONAL: Appears mostly comfortable, cooperative, very hard of hearing RESPIRATORY: Lungs sounds diminished bilaterally. Respirations even, nonlabored. Currently on 2 L high flow nasal cannula with oxygen saturation 94%. Able to achieve 1000 mL on incentive spirometry. Strong nonproductive cough. CARDIOVASCULAR: S1, S2 present. Regular rate and rhythm, sinus rhythm on telemetry. Sternum stable. Palpable peripheral pulses bilaterally. Bilateral lower extremity edema present. No calf pain or tenderness noted. Heart hugger in place. Antiembolism stockings, SCDs present. GASTROINTESTINAL: Abdomen soft, nontender, nondistended. Active bowel sounds present 4 quadrants. Tolerating diet. Positive bowel movement 05/02 GENITOURINARY: Mooney present draining clear, yellow urine. Output overnight 120-140 mL per hour, 3195 mL in the last 24 hours INTEGUMENTARY: Skin is warm and dry. Anterior chest incision well approximated. Bilateral EVH site well approximated. Stage II-III present to sacrum NEUROLOGIC: Cranial nerves II through XII intact MUSKULOSKELETAL: Able to move all extremities, strength equal bilaterally PSYCHIATRIC: Oriented to person place and time - Labs CBC & Chem 7: 05/04/22 06:07 05/04/22 06:07 Labs: Abnormal Lab Results - Last 24 Hours (Table) 05/03/22 05/03/22 05/03/22 Range/Units 11:12 16:20 20:59 WBC (3.8-10.6) k/uL RBC (4.30-5.90) m/uL Hgb (13.0-17.5) gm/dL Hct (39.0-53.0) % MCHC (31.0-37.0) g/dL Sodium (137-145) mmol/L Chloride (98-107) mmol/L Carbon Dioxide (22-30) mmol/L BUN (9-20) mg/dL Creatinine (0.66-1.25) mg/dL Glucose (74-99) mg/dL POC Glucose (mg/dL) 212 H 170 H 208 H (70-110) mg/dL Calcium (8.4-10.2) mg/dL ALT (4-49) U/L Total Protein (6.3-8.2) g/dL Albumin (3.5-5.0) g/dL Crossmatch 05/04/22 05/04/22 05/04/22 Range/Units 06:07 06:07 07:37 WBC 16.0 H (3.8-10.6) k/uL RBC 2.12 L (4.30-5.90) m/uL Hgb 6.1 L* (13.0-17.5) gm/dL Hct 21.0 L (39.0-53.0) % MCHC 28.9 L (31.0-37.0) g/dL Sodium 132 L (137-145) mmol/L Chloride 92 L (98-107) mmol/L Carbon Dioxide 36 H (22-30) mmol/L BUN 75 H (9-20) mg/dL Creatinine 1.75 H (0.66-1.25) mg/dL Glucose 152 H (74-99) mg/dL POC Glucose (mg/dL) 182 H (70-110) mg/dL Calcium 8.3 L (8.4-10.2) mg/dL ALT 73 H (4-49) U/L Total Protein 5.0 L (6.3-8.2) g/dL Albumin 2.8 L (3.5-5.0) g/dL Crossmatch 05/04/22 Range/Units 07:55 WBC (3.8-10.6) k/uL RBC (4.30-5.90) m/uL Hgb (13.0-17.5) gm/dL Hct (39.0-53.0) % MCHC (31.0-37.0) g/dL Sodium (137-145) mmol/L Chloride (98-107) mmol/L Carbon Dioxide (22-30) mmol/L BUN (9-20) mg/dL Creatinine (0.66-1.25) mg/dL Glucose (74-99) mg/dL POC Glucose (mg/dL) (70-110) mg/dL Calcium (8.4-10.2) mg/dL ALT (4-49) U/L Total Protein (6.3-8.2) g/dL Albumin (3.5-5.0) g/dL Crossmatch See Detail Microbiology - Last 24 Hours (Table) 04/30/22 16:45 Gram Stain - Preliminary Pleural Fluid Body Fluid Culture - Preliminary 05/03/22 05:54 Blood Culture - Preliminary Blood No Growth after 24 hours 04/29/22 09:27 Blood Culture - Preliminary Blood No Growth after 96 hours 04/29/22 09:22 Blood Culture - Preliminary Blood No Growth after 96 hours Assessment and Plan Assessment: 1. Severe mitral valve regurgitation, status post mitral valve repair 2. Coronary artery disease, previous PCI, previous non-STEMI, status post CABG 3 3. History of paroxysmal atrial fibrillation, previous cardioversion, on [facility] outpatient for anticoagulation, status post modified Castanon maze and ligation of left atrial appendage 4. Patent foramen ovale, status post closure 5. Tricuspid regurgitation 6. Chronic systolic congestive heart failure, ischemic cardiomyopathy with EF 40-45% 7. History of hypertension 8. History hyperlipidemia, treated, cholesterol 150, LDL 72 9. Right internal carotid stenosis 50-79% 10. Anemia with history of GI bleed in November 2021 S/P transfusion PRBCs 11. Acute on chronic renal failure, baseline creatinine 1.28-1.6 12. Diabetes mellitus type 2, preoperative hemoglobin A1c 5.6% 13. Osteoarthritis 14. Severe COPD, preoperative FEV1 41% of predicted 15. Chronic ongoing nicotine dependence 16. Remote history of pneumonia 17. Chronic low back pain, hearing disorder 18. Nasal swab positive for MSSA preoperative 19. Postoperative acute blood loss anemia, expected 20. Elevated transaminases 21. Protamine reaction intraoperative 22. Leukocytosis, afebrile, CRP and pro-calcitonin trending down, sputum culture negative, no pneumonia, no UTI, likely due to sacral stage II ulcer 23. Medical debility, generalized weakness 24. Stage II decubitus to his buttocks 25. Small left-sided pleural effusion, status post left-sided thoracentesis on 04/30/2022 26. Urinary retention possibly secondary to constipation Plan: 1. Continue low dose aspirin, beta siomara, low dose Imdur, statin 2. Continue amiodarone, Eliquis 3. Continue bumex 2 mg IV daily. Diamox iniated by Dr. Bynum 4. Wean O2 as tolerated. Encourage incentive spirometry 10 times every hour while awake. Bronchodilators per pulmonology. Dr. Aguilar to perform another thoracentesis today on the left side 5. Increase activity, ambulate as tolerated. PT/OT/cardiac rehab following 6. Will monitor daily labs and chest x-rays. Electrolyte replacement per protocol. Will transfuse 1 unit packed red blood cells today 7. GI/DVT prophylaxis. 8. Insulin management per primary care service. Patient is a diabetic with a preoperative hemoglobin A1c of 5.6% on multiple oral medications, needs tight blood sugar control 9. Pain control with current medication regimen. Avoid narcotics 10. Continue Mooney catheter for 1 week before another trial void per urology recommendations. Continue Flomax 11. Strict accurate intake and output. Daily weights. 12. Dr. Chen consulted due to leukocytosis. Continue cefepime, Eraxis added. UA negative, sputum culture negative. CRP, pro-calcitonin trending down. Remains afebrile 13. Smoking cessation counseling and education provided to patient and family 14. Medihoney ordered for sacral decubitus per Dr. Chen, patient may follow in the wound care center after discharge with recommendations for possible wound VAC 15. Plan is for discharge to inpatient rehab due to medical debility in need for daily physician input regarding activity level, lab work and medication adjustments 16. More recommendations to follow based on patient's clinical course.
[2022-05-04] MEDS: NON FORMULARY DRUG SQ SCH (10:17)
[2022-05-04] MEDS: CEFEPIME 2 GM in SODIUM CHLORIDE 0.9% 100 ML IVPB SCH ×2 (10:18→21:17)
[2022-05-04 11:04] LABS: Glucose,Whole Blood 217 mg/dL (70-110)
--- NOTE | 2022-05-04 11:34 | XR ---
EXAMINATION TYPE: XR chest 1V portable DATE OF EXAM: 05/04/2022 Comparison: 05/04/2022 Clinical History: 72-year-old male S/P left thoracentesis Findings: Median sternotomy wires. Annuloplasty ring. Mild to moderate cardiomegaly. Diffuse interstitial/vascu lar prominence persists. Ongoing small right pleural effusion with right basilar opacity. Improving a eration at the left base. No appreciable pneumothorax. Impression: Improving aeration at the left base. No appreciable pneumothorax. Continued small right pleural effus ion with adjacent atelectasis and/or consolidation. Similar cardiomegaly and suspected pulmonary vasc ular congestion.
--- NOTE | 2022-05-04 12:16 | P.PN ---
Subjective Progress Note Date: 05/04/22 Principal diagnosis: Postoperative day #15 Mitral valve repair with 28 mm physio-2 ring, CABG 3 with saphenous vein grafts to first diagonal, obtuse marginal, posterior descending coronary arteries, closure of PFO, endovascular vein harvest, modified Castanon maze procedure with full left-sided lesion set and ligation of the left atrial appendage, SCOTT by anesthesia. Protamine reaction intraoperative Reevaluated today on 04/30/22, patient is sitting up in a bedside chair, he is awake alert oriented 3, he does complain of shortness of breath, remind you that the patient does have history of severe underlying COPD, FEV1 is normally just over 1 L, 42% of the predicted value. Patient is on bronchodilators for his underlying COPD. Chest x-ray is showing small pleural effusions, not large enough to consider thoracentesis. Remains on diuretics in the form of Bumex. Patient is also on metoprolol 25 twice a day and on amiodarone. Patient does not seem to be in distress, he is on 3 L nasal cannula. WBC count today 17.8 hemoglobin is 7.1, electrolytes are normal BUN is 84 creatinine 1.83, baseline is 1.43. The patient is seen today 05/01/2022 in follow-up in the intensive care unit. He is currently sitting up in a chair at the bedside. Awake and alert in no acute distress. Feeling a bit stronger today compared to yesterday. He is maintaining good O2 saturations in the mid 90s on 2 L/m per nasal cannula. He is afebrile. Hemodynamically stable. He did undergo a left-sided thoracentesis yesterday with approximately 850 mL of slightly serosanguineous fluid removed. This was transudate with the protein of 1.8 and an LDH 175. Chest x-ray shows improved aeration. No pneumothorax post procedure. He is continuing to work with the incentive spirometer. Follow-up limited echocardiogram revealed that ejection fraction of 45-50% with atypical septal motion. Evidence of mitral valve repair. Moderate aortic stenosis with a mean gradient 20 mmHg. No ev idence of pericardial effusion. He is status post 2 units of packed red blood cells, 2 units of fresh frozen plasma and 1 unit of platelets this admission. White count 15.3. Hemoglobin 7.2. Platelets 305. Sodium 131. Potassium 4.0. Bicarb 32. BUN 79. Creatinine 1.57. Glucose 143. AST 43. ALT 131. Albumin 3.2. He remains on bronchodilators, antibiotics in the form of cefepime. Heparin for DVT prophylaxis. Continued on amiodarone. Currently in a regular rhythm. Reevaluated today on 05/02/2022, patient is doing great, much better today compared to the last few days, breathing easier, does not seem to be in any distress. Chest x-ray shows a small tiny pleural effusions not large enough to consider repeat thoracentesis. WBC count is 16.9 hemoglobin is 7.4. Electrodes are normal BUN is 77 creatinine 1.54. Reevaluated today on 05/03/22, patient is basically about the same, today he seems to be a bit more short of breath but he was yesterday. Chest x-ray is basically about the same, patient remains on diuretics, remains on bronchodilators, remains on 3 L nasal cannula. No major change overall in the last 24 hours except he seems to be more symptomatic today. Patient was noted to have a bit of leukocytosis today, WBC count is 17.0 hemoglobin is 7.5, but no clear-cut evidence of infection. Basic metabolic profile is normal. Urinalysis is unremarkable. Patient was seen by infectious disease on consultation, he is now on empiric cefepime although no clear-cut evidence of infection except the patient does have leukocytosis Reevaluated today on 05/04/22, patient remains in the ICU, continues to have good days and bad days, today he seems to be a bit more short of breath, chest x-ray showed mild pulmonary vascular congestion, and bilateral small pleural eff usions. Ultrasound of the chest from yesterday showed at 10 cm pocket in the left pleural space, hence I went ahead and recommended thoracentesis, I was able to drain 550 mL of serosanguineous fluid from the left pleural space. No complications post procedure. The procedure was well-tolerated. In the meantime the patient remains on diuretics, bronchodilators, and he is also on antibiotics empirically because of leukocytosis. Hemoglobin is down today to 6.1, and the patient is scheduled to have a unit of packed RBCs, I believe this will significantly improve his shortness of breath. Electrolytes are normal his BUN is 75 creatinine 1.75 Objective - Vital Signs Vital signs: Vital Signs Temp 97.8 F 05/04/22 08:00 Pulse 64 05/04/22 11:00 Resp 22 05/04/22 11:00 BP 99/56 05/04/22 11:00 Pulse Ox 97 05/04/22 11:00 FiO2 100 04/22/22 16:00 Intake & Output 05/03/22 05/04/22 05/04/22 18:59 06:59 18:59 Intake Total 1080 Output Total 1565 1630 915 Balance -485 -1630 -915 Weight 93.4 kg Intake: Oral 1080 Output: Urine 1565 1630 915 Other: Voiding Method Indwelling Catheter Indwelling Catheter Indwelling Catheter ABP, PAP, CO, CI - Last Documented Arterial Blood Pressure 137/47 Pulmonary Artery Pressure 67/18 Cardiac Output 5.8 Cardiac Index 2.8 - Exam Physical Exam: Revealed a 72-year-old white male in no distress, looks pale, he is on 3 L nasal cannula Head: Atraumatic, normocephalic. HEENT:[Neck is supple.] [No neck masses.] [No thyromegaly.] [No JVD.] Chest: Diminished breath sounds at the bases with crackles at the bases no rhonchi and no wheezes Cardiac Exam: Irregular irregular rhythm. [Normal S1 and S2, no S3 gallop, no murmur.] Abdomen: [Soft, nontender, no megaly, no rebound, no guarding, normal bowel sounds.] Extremities: [No clubbing, 1+ bipedal edema, no cyanosis.] Neurological Exam: [No focal neurologic deficit.] Alert oriented 3. Psychiatric: Normal mood affect and normal mental status examination. Skin: No rashes. - Labs CBC & Chem 7: 05/04/22 06:07 05/04/22 06:07 Labs: Abnormal Lab Results - Last 24 Hours (Table) 05/03/22 05/03/22 05/04/22 Range/Units 16:20 20:59 06:07 WBC 16.0 H (3.8-10.6) k/uL RBC 2.12 L (4.30-5.90) m/uL Hgb 6.1 L* (13.0-17.5) gm/dL Hct 21.0 L (39.0-53.0) % MCHC 28.9 L (31.0-37.0) g/dL Sodium (137-145) mmol/L Chloride (98-107) mmol/L Carbon Dioxide (22-30) mmol/L BUN (9-20) mg/dL Creatinine (0.66-1.25) mg/dL Glucose (74-99) mg/dL POC Glucose (mg/dL) 170 H 208 H (70-110) mg/dL Calcium (8.4-10.2) mg/dL ALT (4-49) U/L Total Protein (6.3-8.2) g/dL Albumin (3.5-5.0) g/dL Crossmatch 05/04/22 05/04/22 05/04/22 Range/Units 06:07 07:37 07:55 WBC (3.8-10.6) k/uL RBC (4.30-5.90) m/uL Hgb (13.0-17.5) gm/dL Hct (39.0-53.0) % MCHC (31.0-37.0) g/dL Sodium 132 L (137-145) mmol/L Chloride 92 L (98-107) mmol/L Carbon Dioxide 36 H (22-30) mmol/L BUN 75 H (9-20) mg/dL Creatinine 1.75 H (0.66-1.25) mg/dL Glucose 152 H (74-99) mg/dL POC Glucose (mg/dL) 182 H (70-110) mg/dL Calcium 8.3 L (8.4-10.2) mg/dL ALT 73 H (4-49) U/L Total Protein 5.0 L (6.3-8.2) g/dL Albumin 2.8 L (3.5-5.0) g/dL Crossmatch See Detail 05/04/22 Range/Units 11:02 WBC (3.8-10.6) k/uL RBC (4.30-5.90) m/uL Hgb (13.0-17.5) gm/dL Hct (39.0-53.0) % MCHC (31.0-37.0) g/dL Sodium (137-145) mmol/L Chloride (98-107) mmol/L Carbon Dioxide (22-30) mmol/L BUN (9-20) mg/dL Creatinine (0.66-1.25) mg/dL Glucose (74-99) mg/dL POC Glucose (mg/dL) 217 H (70-110) mg/dL Calcium (8.4-10.2) mg/dL ALT (4-49) U/L Total Protein (6.3-8.2) g/dL Albumin (3.5-5.0) g/dL Crossmatch Microbiology - Last 24 Hours (Table) 04/29/22 09:27 Blood Culture - Preliminary Blood No Growth after 120 hours 04/29/22 09:22 Blood Culture - Preliminary Blood No Growth after 120 hours 04/30/22 16:45 Gram Stain - Preliminary Pleural Fluid Body Fluid Culture - Preliminary 05/03/22 05:54 Blood Culture - Preliminary Blood No Growth after 24 hours Assessment and Plan Assessment: Impression: 1. Severe mitral valve regurgitation, status post mitral valve repair, postoperative day # 15 2. Coronary artery disease, previous PCI, previous non-STEMI, status post CABG 3, postop day # 15 3. History of paroxysmal atrial fibrillation, previous cardioversion, on [facility] outpatient for anticoagulation, status post modified Castanon maze and ligation of left atrial appendage, postop day # 15 4. Patent foramen ovale, status post closure, postop day # 15 5. Atrial fibrillation, expected outcome of surgery and the patient is back to normal sinus rhythm. The patient is currently on oral amiodarone, and metoprolol. No anticoagulations yet. 6. Chronic systolic congestive heart failure, ischemic cardiomyopathy with EF 40-45% 7. History of hypertension 8. History hyperlipidemia, treated, cholesterol 150, LDL 72 9. Right internal carotid stenosis 50-79% 10. Anemia with history of GI bleed in November 2021 S/P transfusion PRBCs 11. Acute on chronic renal failure, creatinine is at 1.9 12. Diabetes mellitus type 2, preoperative hemoglobin A1c 5.6% currently Levemir insulin 8 units along with a sliding scale coverage 13. Osteoarthritis 14. Severe COPD, preoperative FEV1 41% of predicted 15. Chronic ongoing nicotine dependence 16. Remote history of pneumonia 17. Chronic low back pain, hearing disorder 18. Nasal swab positive for MSSA preoperative 19. Postoperative acute blood loss anemia, expected 20. Elevated transaminases, most likely due to shock liver and the significant elevation of the ALT and AST which are being monitored, and the level is also improving and there is a decline and LFTs 21. Protamine reaction intraoperative 22 decubitus ulcer stage 2 23, small left-sided pleural effusion along with some left basilar atelectasis, patient is status post repeat thoracentesis on 05/04/22, 550 mL of serosanguineous fluid was removed from the left. Previous thoracentesis was done a few days ago and I was able to drain 850 mL of serosanguineous fluid from the left pleural space also hence patient is status post left-sided thoracentesis 2 24 chronic right lower lobe atelectasis and chronically abnormal chest x-ray in the right lower lobe area Recommendation: Continue aspirin and Plavix beta blockers and statins. Continue eliquis Continue diuretics. Continue amiodarone. Continue daily weights. Ambulate as much as possible and encouraged to ambulate Continue oxygen and titrate accordingly Continue bronchodilators and diuretics Continue incentive spirometry Continue GI and DVT prophylaxis Continue metoprolol and amiodarone. Continue antibiotics empirically/cefepime Repeat left-sided thoracentesis done today, and 550 mL of fluid was drained Possible rehab placement We'll continue to follow Time with Patient: Less than 30
[2022-05-04] MEDS: ISOSORBIDE MONONITRATE ER 15 MG TAB PO SCH (12:33)
--- NOTE | 2022-05-04 14:27 | OP ---
OPERATIVE REPORT PROCEDURE PERFORMED: Left-sided thoracentesis. PREOPERATIVE DIAGNOSIS: Left pleural effusion. POSTOPERATIVE DIAGNOSIS: Left pleural effusion. ANESTHESIA USED: 2 mL of 1% lidocaine. DESCRIPTION OF PROCEDURE: The patient was placed in a sitting upright position, and the area below the left scapula was prepared in a sterile fashion, and drapes were applied. The area was earlier localized by ultrasound, and it correlated to the level of the 8th intercostal space and tip of the scapula. The area was locally anesthetized with lidocaine. Then, a 26-gauge needle was inserted at the same site into the pleural space until the fluid was obtained. Then, a small tiny incision was made, and the catheter was advanced into the pleural space with a needle. As soon as the pleural fluid was obtained, the catheter was advanced over the needle, and the needle was pulled out of the pleural space. Freely flowing fluid was drained. Roughly 550 mL of serosanguineous fluid was drained from the left pleural space. The procedure was well tolerated. Fluid was discarded, mostly because it was sent earlier previously for diagnostic studies. I did not feel that needs any further diagnostic studies. Again, no complications. Chest x- ray showed no pneumothorax and complete clearing of the left pleural space. No more fluid noted. MMODL / IJN: [id number] /
--- NOTE | 2022-05-04 16:21 | P.PN ---
Progress Note - Text Progress Note Date: 05/04/22 Patient is a pleasant 72-year-old male came in the for elective mitral valve repair, CABG x 3 vessel, maze procedure, PFO closure. Patient is extubated sitting in the chair patient still has a Era-Varghese catheter, CVP of around 12, cardiac index 3.1 patient creatinine went up to 1.70 resulting elevated potassium of 5.5 patient is off pressor support, off nitro drip patient still has 2 mediastinal and one left-sided chest tube. 04/21/2022 Patient is evaluated in ICU today, sitting up in chair. He is postoperative day #2 for elective mitral valve repair, hematocrit bypass grafting maze procedure and PFO closure. He is on BiPAP with fio2 of 40% Continues with mediastinal/left pleural chest tubes. Continue with indwelling catheter. Received dose of IV albumin yesterday afternoon. Chest xray today showing ongoing mild pulmonary vascular congestion, increasing patchy bibasilar opacities, atelectasis vs. pulmonary edema. Currently on lasix gtt at 10mls/hr, continues on dopamine gtt at 3.68 mls/hr. Continues on insulin gtt and blood glucose remains in the 140 to 130s. Labs today showing sodium 132, potassium 6.1 improved to 5.4, BUN 41, creatinine 2.53, elevated liver enzymes. Hgb 7.3. 04/22/2022 Patient continues to be monitored closely in intensive care unit, he is postoperative day #3 for elective mitral valve repair, maze procedure, PFO closure. Managed by primary team. He had limited echocardiogram completed showing EF 45 to 50%, mild to moderate MR, moderate pulmonary hypertension with moderate TR. Chest xray today shows slight improvement in pulmonary vascular congestion. Maintained on lasix gtt at 10mls/hr, dopamine gtt, Continues with 2 mediastinal chest tubes. Continues with indwelling catheter. Continues with right IJ swan/cordis, right radial arterial line. He has been weaned off BiPAP currently on high flow cannula at 15L. He has been tolerating some diet. Continues on insulin gtt which will continue until his diet stabilizes. Current glucose in the 140s. Creatinine today 3.14. April 23: [facility] In a recliner. Tired. Little oral intake. Nasal cannula. Drips include IV dopamine and Lasix. Some shortness of breath. Mooney catheter. 04/24/2022: ICU. Up. 4 L nasal cannula. Did eat better. Edema present. On the Lasix drip 5 mg an hour. Some improvement in creatinine. 04/25/2022: ICU. Up in a recliner. Eating better. at the bedside. Edema present. Off Lasix drip. Feeling better. Creatinine coming down. LFTs improving. Home dose of Victoza was started 04/26/2022: ICU. Up in a recliner. 4 L nasal cannula. Eating about 50%. Accu-Cheks noted. 04/27/2022: ICU: Patient went into atrial fibrillation overnight. Put on oral amiodarone and Lopressor per CTS.. Some worsening of shortness of breath. Placed on IV Lasix. Eating some. Up in a recliner. 04/28/2022: ICU. Patient received Lopressor today for the A. fib. Patient went down into sinus rhythm. Blood pressure also dropped her was 70 systolic. Oxygen increased to 4 L. Short of breath. Patient did walk 10-12 steps up to the door. Eating fair. Lower extremity edema edema present. Up in a chair. Tired. 04/29/2022: ICU. Short of breath. 3 L nasal cannula. Eating fair. Edema pre sent. Getting Bumex. Getting IV albumin and IV calcium. Using incentive spirometry. Up in a chair. Discussed with at the bedside. Increasing white count, infiltrated urine chest x-ray suggestive of pneumonia. Started on IV cefepime 04/30/2022: ICU. Remains short of breath. 3 L nasal cannula. Started on IV cefepime yesterday.. Oral intake fair. Edema present. Remains on Bumex. Fo sher catheter. Discussed with patient and at the bedside. Discussed with Dr. Cortez from cardiothoracic surgery. 05/01/2022: ICU. Zaroxolyn was added. Good diuresis. Breathing better. On IV cefepime. Left paracentesis is done. 850 mL removed. Oral intake fair. Breathing a bit better. Telemetry shows sinus rhythm. 2 L nasal cannula. at the bedside. Will DC Actos. Even though smaller dose. Given CHF renal failure. Increase Lantus to 12 units. 05/02/2022: ICU. Over 3 is a negative fluid balance. Last 24 hours. Some improvement in breathing. Oral intake fair. Remains in atrial fibrillation controlled. 2 L nasal cannula. Add Diamox. 4 metabolic alkalosis 05/03/2022: ICU. This morning patient became short of breath. Dr. Chen from [place] consulted for sacral decub. Remains on IV cefepime. Oral intake fair. Had a BM. On IV Bumex. I discussed with Dr. Aguilar from pulmonary. Patient is known to him. Advanced COPD. His right lung changes are chronic. Has had previous CAT scans. He may have had a located effusion. 05/04/2022: ICU. Breathing a bit better. Hemoglobin dropped to 6.1. Awaiting transfusion. Tolerating diet. On IV cefepime. Patient started on IV eraxis by Dr. Prescott from [place]. Active Medications Acetaminophen (Acetaminophen Tab 325 Mg Tab) 650 mg PO Q6HR PRN PRN Reason: Fever and/ or Pain Last Admin: 05/04/22 13:26 Dose: 650 mg Acetazolamide (Acetazolamide 250 Mg Tab) 250 mg PO BID [facility] Last Admin: 05/04/22 09:20 Dose: 250 mg Albuterol/Ipratropium (Ipratropium-Albuterol 3 Ml Neb) 3 ml INHALATION RT-Q2H PRN PRN Reason: Shortness Of Breath Or Wheezing Last Admin: 04/29/22 23:30 Dose: 3 ml Albuterol/Ipratropium (Ipratropium-Albuterol 3 Ml Neb) 3 ml INHALATION RT-QID [facility] Last Admin: 05/04/22 16:17 Dose: 3 ml Amiodarone HCl (Amiodarone 200 Mg Tab) 200 mg PO DAILY [facility] Last Admin: 05/04/22 09:12 Dose: 200 mg Apixaban (Apixaban 5 Mg Tab) 5 mg PO BID [facility]; Protocol Last Admin: 05/04/22 09:17 Dose: 5 mg Ascorbic Acid (Ascorbic Acid 500 Mg Tab) 500 mg PO DAILY [facility] Last Admin: 05/04/22 09:12 Dose: 500 mg Aspirin (Aspirin 81 Mg) 81 mg PO DAILY [facility] Last Admin: 05/04/22 09:12 Dose: 81 mg Atorvastatin Calcium (Atorvastatin 40 Mg Tab) 40 mg PO DAILY [facility] Last Admin: 05/04/22 09:17 Dose: 40 mg Benzocaine/Menthol (Benzocaine/Menthol Lozeng 1 Each Lozenge) 1 each MUCOUS MEM Q2HR PRN PRN Reason: Sore Throat Last Admin: 05/02/22 15:04 Dose: 1 each Bisacodyl (Bisacodyl 10 Mg Supp) 10 mg RECTAL DAILY PRN PRN Reason: Constipation Last Admin: 05/02/22 08:17 Dose: 10 mg Budesonide/Formoterol Fumarate (Symbicort 160-4.5 Mcg Inhaler) 2 puff INHALATION RT-BID [facility] Last Admin: 05/04/22 08:39 Dose: 2 puff Bumetanide (Bumetanide 0.25 Mg/Ml 10 Ml Vial) 2 mg IV DAILY [facility] Last Admin: 05/04/22 09:11 Dose: 2 mg Dextrose/Water (Dextrose 50% Syringe 50 Ml) 25 ml IVP PER PROTOCOL PRN; Protocol PRN Reason: Hypoglycemia Dextrose/Water (Dextrose 50% Syringe 50 Ml) 50 ml IVP PER PROTOCOL PRN; Protocol PRN Reason: Hypoglycemia Dextrose/Water (Dextrose 50% Syringe 50 Ml) 25 ml IVP PER PROTOCOL PRN; Protocol PRN Reason: Hypoglycemia Dextrose/Water (Dextrose 50% Syringe 50 Ml) 50 ml IVP PER PROTOCOL PRN; Protocol PRN Reason: Hypoglycemia Ferrous Sulfate (Ferrous Sulfate 325 Mg Tab) 325 mg PO BID [facility] Last Admin: 05/04/22 09:12 Dose: 325 mg Guaifenesin/Dextromethorphan (Guaifenesin-Dm 600/30mg 1 Each Tab.Er.12h) 1 each PO Q12HR [facility] Last Admin: 05/04/22 09:20 Dose: 1 each Calcium Gluconate/Sodium (Chloride 2 gm/ IV Solution) 100 mls @ 100 mls/hr IVPB ONCE PRN PRN Reason: Ionized Calcium less than 4.4 Stop: 05/19/22 23:00 Cefepime HCl 2 gm/ Sodium (Chloride) 100 mls @ 25 mls/hr IVPB Q12HR [facility]; Protocol Stop: 05/04/22 21:01 Last Admin: 05/04/22 10:18 Dose: 25 mls/hr Anidulafungin 100 mg/ Sodium (Chloride) 100 mls @ 84 mls/hr IVPB DAILY [facility]; Protocol Last Admin: 05/04/22 09:11 Dose: 84 mls/hr Insulin Aspart (Insulin Aspart (Novolog) 100 Unit/Ml Vial) 0 unit SQ ACHS [facility]; Protocol Last Admin: 05/04/22 12:36 Dose: 4 unit Insulin Detemir (Insulin Detemir (Levemir) 100 Unit/Ml Syr) 16 unit SQ HS [facility] Last Admin: 05/03/22 21:15 Dose: 16 unit Isosorbide Mononitrate (Isosorbide Mononitrate Er 15 Mg Tab) 15 mg PO DAILY@1200 [facility] Last Admin: 05/04/22 12:33 Dose: Not Given Magnesium Hydroxide (Magnesium Hydroxide 2,400 Mg/10 Ml Cup) 2,400 mg PO BID PRN PRN Reason: Constipation Last Admin: 04/22/22 07:08 Dose: 2,400 mg Metoprolol Tartrate (Metoprolol Tartrate 25 Mg Tab) 25 mg PO BID [facility] Last Admin: 05/04/22 09:12 Dose: 25 mg Miscellaneous Information (Potassium Replacement Protocol 1 Each Misc) 1 each MISCELLANE DAILY PRN; Protocol PRN Reason: Per Protocol Miscellaneous Information (Magnesium Replacement Protocol 1 Each Misc) 1 each MISCELLANE DAILY PRN; Protocol PRN Reason: Per Protocol Non-Formulary Medication (Non Formulary Drug) 1 each SQ DAILY [facility] Last Admin: 05/04/22 10:17 Dose: 1 each Ondansetron HCl (Ondansetron 4 Mg/2 Ml Vial) 4 mg IVP Q6HR PRN PRN Reason: Nausea And Vomiting Last Admin: 04/27/22 09:22 Dose: 4 mg Potassium Chloride (Potassium Chloride Er 20 Meq Tab.Er) 20 meq PO DAILY [facility] Senna/Docusate Sodium (Sennosides-Docusate Sodium 1 Each Tab) 2 each PO HS [facility] Last Admin: 05/03/22 21:14 Dose: 2 each Sodium Chloride (Sodium Chloride 0.9% Flush 10 Ml Syringe) 10 ml IV BID [facility] Last Admin: 05/04/22 09:21 Dose: 10 ml Tamsulosin HCl (Tamsulosin 0.4 Mg Cap.Er.24h) 0.4 mg PO -BRKFST [facility] Last Admin: 05/04/22 09:12 Dose: 0.4 mg On examination: VITAL SIGNS: 98.3, 63, 22, 102/52, 90% on 2 L GENERAL APPEARANCE: Up in chair, short of breath HEENT: Normal external appearance of nose and ear. Oral cavity normal EYES: Pupils equal. Conjunctiva normal. NECK: JVD not raised. Mass not palpable. RESPIRATORY: Respiratory effort increased. Lungs diminished breath sounds. CARDIOVASCULAR: First and second sounds normal. Edema present ABDOMEN: Soft. Liver and spleen not palpable. No tenderness. No mass palpable. Mooney catheter PSYCHIATRY: AO 3, mood and affect normal INVESTIGATIONS, reviewed in the clinical context: 05/04/2022: WBC 16 hemoglobin 6.1 platelets 362 potassium 3.7 BUN 75 creatinine 1.75 Limited 2-D echocardiogram [May 01]: EF 45%. [id number] MR, moderate aortic stenosis 05/01/2022: WBC 15.3 hemoglobin 7.2 platelets 305 potassium 4. [address] chest [April 29]: Moderate partial obliterate right pleural effusion, left pleural effusion, cardiomegaly. 04/24/2022: WBC 9.2 hemoglobin 7.1 platelets 122 potassium 5.1 BUN 77 creatinine 2.97 AST 1270 ALT 1038 WBC 8.2 hemoglobin 7.5 platelets 111 sodium 135 progression 6 BUN 67 creatinine 3.43 AST 3595 ALT 1512 Limited 2-D echocardiogram: EF 45-50%. Inferior wall hypokinesis. Moderate MR. Moderate pulmonary hypertension with moderate TR. Assessment and plan -Acute on chronic congestive heart exacerbation from systolic/diastolic dysfunction EF 45-50%:, precipitated by A. fib: Slow to respond IV Bumex 2 mg daily. -Suspect pneumonia, patient short of breath, infiltrate on chest x-ray, increasing white count and procalcitonin: IV cefepime -Acute hypoxic respiratory failure from pulmonary edema/pneumonia: 2 L nasal cannula -Diabetes Mellitus type 2 with hyperglycemia, Victoza , Actos-discontinue. Levemir 16 units daily at bedtime -Paroxysmal atrial fibrillation status post modified Castanon-Maze procedure,: With rapid ventricular rate: Now - sinus rhythm amiodarone ,Lopressor. -acute renal failure on chronic kidney disease stage II with renal failure is probably prerenal azotemia, cardiorenal syndrome.: Worsening Creatinine peaked at 3.43. Creatinine 1.75 -hyperkalemia secondary to acute renal failure: Corrected Received Lokelma. Renal diet -Acute hepatitis, likely ischemic: Improving Follow closely. GI services not available in the hospital. Hold any hepatic offensive medications. Follow LFTs patient as patient started back on amiodarone -Acute COPD exacerbation, in a smoker DuoNeb. Symbicort -Hyperlipidemia Lipitor -Sacral decubitus ulcer: Stage II Follow with/Dr. Chen -Metabolic alkalosis from diuresis Diamox - coronary artery disease with previous PCI Aspirin, Lasix, Imdur, Lopressor -Acute postprocedure blood loss anemia as expected from surgery, further decline 2 units of PRBC, follow CBC. Awaiting unit of blood today. -Chronic nicotine dependence - post mitral valve failure, status post CABG, status post PFO closure: Currently [id number] MR -Moderate aortic stenosis -Moderate secondary probably hypertension IV cefepime. Oxygen. IV Bumex. iv eraxis. Pending blood transfusion. Follow with multiple consultants.
[2022-05-04 16:38] LABS: Glucose,Whole Blood 212 mg/dL (70-110)
[2022-05-04 20:53] LABS: Glucose,Whole Blood 249 mg/dL (70-110)
[2022-05-04] MEDS: SENNOSIDES-DOCUSATE SODIUM 1 EACH TAB PO SCH (21:17)
[2022-05-04] MEDS: INSULIN DETEMIR (LEVEMIR) 100 UNIT/ML SYR SQ SCH (21:19)
[2022-05-05] MEDS: ACETAMINOPHEN TAB 325 MG TAB PO PRN ×2 (01:00→10:26)
--- NOTE | 2022-05-05 01:27 | PN ---
PROGRESS NOTE SUBJECTIVE: Derek is a 72-year-old gentleman, who has been in the hospital for 15 days now following bypass surgery, mitral valve repair, closure of the PFO, and has had a fairly prolonged and complicated postop course. This morning, he developed severe anemia with a hemoglobin of 6.1 and is to undergo blood transfusion for the same. His labs show that the BUN is 75, creatinine is 1.7. Current medications include Eliquis 5 b.i.d., Lipitor, Imdur, Lopressor 25 b.i.d. The patient is back in sinus rhythm this morning. He had pleural effusion and underwent thoracentesis of the left side. OBJECTIVE: VITAL SIGNS: Stable. CHEST: Reveals diminished air entry at the bases. HEART: Reveals first and second heart sounds. No gallop. EXTREMITIES: Reveals bilateral 1+ pitting edema. ASSESSMENT AND PLAN: 1. Coronary artery disease, status post coronary artery bypass graft. 2. Mitral regurgitation, status post mitral valve repair. 3. Paroxysmal atrial fibrillation. 4. Severe symptoms of anemia, requiring blood transfusion. MMODL / IJN: [id number] /
[2022-05-05 06:55] LABS: Anisocytosis Slight; HCT 23.4 % (39.0-53.0); Hypochromasia Marked; MCH 27.7 pg (25.0-35.0); MCHC 28.8 g/dL (31.0-37.0); MCV 96.2 fL (80.0-100.0); Mean Platelet Volume 8.4; Platelet Count 343 k/uL (150-450); Poikilocytosis Slight; RBC 2.43 m/uL (4.30-5.90); RDW 16.8 % (11.5-15.5); WBC 18.1 k/uL (3.8-10.6)
[2022-05-05 06:59] LABS: HGB 6.7 gm/dL (13.0-17.5)
[2022-05-05 07:03] LABS: Calcium 8.3 mg/dL (8.4-10.2)
--- NOTE | 2022-05-05 07:29 | P.PN ---
Subjective Progress Note Date: 05/05/22 Principal diagnosis: Severe mitral valve regurgitation, coronary artery disease, paroxysmal atrial fibrillation, patent foramen ovale, tricuspid regurgitation, chronic systolic congestive heart failure. Previous medical history of hypertension, hyperlipidemia, coronary artery disease with history of previous PCI, non-ST elevated myocardial infarction in November 2021, ischemic cardiomyopathy with EF 40- 45%, right internal carotid stenosis 50-79%, renal insufficiency, anemia with history of GI bleed in November 2021 S/P transfusion PRBCs, diabetes mellitus type 2, osteoarthritis, severe COPD, chronic ongoing nicotine dependence, remote history of pneumonia, chronic low back pain and hearing disorder. Nasal swab positive for MSSA preoperative POD #16 Mitral valve repair with 28 mm physio-2 ring, CABG 3 with saphenous vein grafts to first diagonal, obtuse marginal, posterior descending coronary arteries, closure of PFO, endovascular vein harvest, modified Castanon maze procedure with full left-sided lesion set and ligation of the left atrial appendage, SCOTT by anesthesia. Protamine reaction intraoperative Postoperative acute blood loss anemia, expected given his history of anemia, hemodilution and cardiopulmonary bypass Acute on chronic kidney failure, likely from hypotension from intraoperative protamine reaction Elevated transaminases, likely from hypotension from intraoperative protamine reaction Left pleural effusion, status post left-sided thoracentesis with removal of [address] Aguilar on 04/30/22 and again on 05/04/22 for 550 mL fluid Leukocytosis, afebrile, CRP and pro-calcitonin trending down, sputum culture negative, no pneumonia, no UTI, blood culture preliminary negative, likely due to sacral stage II ulcer The patient was seen and examined this morning sitting up in a recliner in the intensive care unit in no acute distress. Currently in sinus rhythm, hemodynamically stable. Currently on 2 L nasal cannula with oxygen saturation in the mid 90s, able to achieve 1000 mL on his incentive spirometer. States pain is controlled on current medication regimen, pain is generally with coughing. Sacral decubitus ulcer stage II-III present due to lack of mobility. Labs and chest x-ray reviewed. Hemoglobin 6.1 yeserday, received 1 unit packed red blood cells, hemoglobin 6.7 this morning. Patient had left sided thoracentesis again yesterday by Dr. Aguilar with removal of 550 mL fluid. Patient has ambulated in the hallway with assistance. Objective - Vital Signs Vital signs: Vital Signs Temp 98.3 F 05/05/22 04:00 Pulse 69 05/05/22 05:00 Resp 15 05/05/22 05:00 BP 107/41 05/05/22 05:00 Pulse Ox 98 05/05/22 05:00 FiO2 100 04/22/22 16:00 Intake & Output 05/04/22 05/05/22 05/05/22 18:59 06:59 18:59 Intake Total 455 Output Total 2165 1450 Balance -2165 -995 Intake: IV 45 0.9 45 Oral 100 Blood Product 310 Rc As-1 Unit 310 [id number] Output: Urine 2165 1450 Other: Voiding Method Indwelling Catheter Indwelling Catheter # Bowel Movements 1 ABP, PAP, CO, CI - Last Documented Arterial Blood Pressure 137/47 Pulmonary Artery Pressure 67/18 Cardiac Output 5.8 Cardiac Index 2.8 - Exam CONSTITUTIONAL: Appears mostly comfortable, cooperative, very hard of hearing RESPIRATORY: Lungs sounds diminished bilaterally. Respirations even, nonlabored. Currently on 2 L high flow nasal cannula with oxygen saturation 93%. Able to achieve 1000 mL on incentive spirometry. Strong nonproductive cough. CARDIOVASCULAR: S1, S2 present. Regular rate and rhythm, sinus rhythm on telemetry. Sternum stable. Palpable peripheral pulses bilaterally. Bilateral lower extremity edema present. No calf pain or tenderness noted. Heart hugger in place. Antiembolism stockings, SCDs present. GASTROINTESTINAL: Abdomen soft, nontender, nondistended. Active bowel sounds present 4 quadrants. Tolerating diet. Positive bowel movement 05/04 GENITOURINARY: Mooney present draining clear, yellow urine. Output overnight 100-350 mL per hour, 3615 mL in the last 24 hours INTEGUMENTARY: Skin is warm and dry. Anterior chest incision well approximated. Bilateral EVH site well approximated. Stage II-III present to sacrum NEUROLOGIC: Cranial nerves II through XII intact MUSKULOSKELETAL: Able to move all extremities, strength equal bilaterally PSYCHIATRIC: Oriented to person place and time - Allied health notes Allied health notes reviewed: nursing - Labs CBC & Chem 7: 05/05/22 06:03 05/05/22 06:03 Labs: Abnormal Lab Results - Last 24 Hours (Table) 04/12/22 05/04/22 05/04/22 Range/Units 09:21 06:07 07:37 WBC 16.0 H (3.8-10.6) k/uL RBC 2.12 L (4.30-5.90) m/uL Hgb 6.1 L* (13.0-17.5) gm/dL Hct 21.0 L (39.0-53.0) % MCHC 28.9 L (31.0-37.0) g/dL RDW (11.5-15.5) % Sodium (137-145) mmol/L Chloride (98-107) mmol/L Carbon Dioxide (22-30) mmol/L BUN (9-20) mg/dL Creatinine (0.66-1.25) mg/dL Glucose (74-99) mg/dL POC Glucose (mg/dL) 182 H (70-110) mg/dL Calcium (8.4-10.2) mg/dL Crossmatch See Detail 05/04/22 05/04/22 05/04/22 Range/Units 07:55 11:02 11:33 WBC (3.8-10.6) k/uL RBC (4.30-5.90) m/uL Hgb (13.0-17.5) gm/dL Hct (39.0-53.0) % MCHC (31.0-37.0) g/dL RDW (11.5-15.5) % Sodium (137-145) mmol/L Chloride (98-107) mmol/L Carbon Dioxide (22-30) mmol/L BUN (9-20) mg/dL Creatinine (0.66-1.25) mg/dL Glucose (74-99) mg/dL POC Glucose (mg/dL) 217 H (70-110) mg/dL Calcium (8.4-10.2) mg/dL Crossmatch See Detail See Detail 05/04/22 05/04/22 05/05/22 Range/Units 16:37 20:52 06:03 WBC 18.1 H (3.8-10.6) k/uL RBC 2.43 L (4.30-5.90) m/uL Hgb 6.7 L* (13.0-17.5) gm/dL Hct 23.4 L (39.0-53.0) % MCHC 28.8 L (31.0-37.0) g/dL RDW 16.8 H (11.5-15.5) % Sodium (137-145) mmol/L Chloride (98-107) mmol/L Carbon Dioxide (22-30) mmol/L BUN (9-20) mg/dL Creatinine (0.66-1.25) mg/dL Glucose (74-99) mg/dL POC Glucose (mg/dL) 212 H 249 H (70-110) mg/dL Calcium (8.4-10.2) mg/dL Crossmatch 05/05/22 Range/Units 06:03 WBC (3.8-10.6) k/uL RBC (4.30-5.90) m/uL Hgb (13.0-17.5) gm/dL Hct (39.0-53.0) % MCHC (31.0-37.0) g/dL RDW (11.5-15.5) % Sodium 134 L (137-145) mmol/L Chloride 95 L (98-107) mmol/L Carbon Dioxide 33 H (22-30) mmol/L BUN 85 H (9-20) mg/dL Creatinine 1.46 H (0.66-1.25) mg/dL Glucose 150 H (74-99) mg/dL POC Glucose (mg/dL) (70-110) mg/dL Calcium 8.3 L (8.4-10.2) mg/dL Crossmatch Microbiology - Last 24 Hours (Table) 04/29/22 09:27 Blood Culture - Preliminary Blood No Growth after 120 hours 04/29/22 09:22 Blood Culture - Preliminary Blood No Growth after 120 hours 04/30/22 16:45 Gram Stain - Preliminary Pleural Fluid Body Fluid Culture - Preliminary 05/03/22 05:54 Blood Culture - Preliminary Blood No Growth after 24 hours - Imaging and Cardiology Chest x-ray: image reviewed Assessment and Plan Assessment: 1. Severe mitral valve regurgitation, status post mitral valve repair 2. Coronary artery disease, previous PCI, previous non-STEMI, status post CABG 3 3. History of paroxysmal atrial fibrillation, previous cardioversion, on [facility] outpatient for anticoagulation, status post modified Castanon maze and ligation of left atrial appendage 4. Patent foramen ovale, status post closure 5. Tricuspid regurgitation 6. Chronic systolic congestive heart failure, ischemic cardiomyopathy with EF 40-45% 7. History of hypertension 8. History hyperlipidemia, treated, cholesterol 150, LDL 72 9. Right internal carotid stenosis 50-79% 10. Anemia with history of GI bleed in November 2021 S/P transfusion PRBCs 11. Acute on chronic renal failure, baseline creatinine 1.28-1.6 12. Diabetes mellitus type 2, preoperative hemoglobin A1c 5.6% 13. Osteoarthritis 14. Severe COPD, preoperative FEV1 41% of predicted 15. Chronic ongoing nicotine dependence 16. Remote history of pneumonia 17. Chronic low back pain, hearing disorder 18. Nasal swab positive for MSSA preoperative 19. Postoperative acute blood loss anemia, expected 20. Elevated transaminases 21. Protamine reaction intraoperative 22. Leukocytosis, afebrile, CRP and pro-calcitonin trending down, sputum cultu re negative, no pneumonia, no UTI, likely due to sacral stage II ulcer 23. Medical debility, generalized weakness 24. Stage II decubitus to his buttocks 25. Small left-sided pleural effusion, status post left-sided thoracentesis on 04/30/2022 26. Urinary retention possibly secondary to constipation Plan: 1. Continue low dose aspirin, beta siomara, low dose Imdur, statin 2. Continue amiodarone, Eliquis 3. Continue bumex 2 mg IV daily. Diamox iniated by Dr. Bynum 4. Wean O2 as tolerated. Encourage incentive spirometry 10 times every hour while awake. Bronchodilators per pulmonology 5. Increase activity, ambulate as tolerated. PT/OT/cardiac rehab following 6. Will monitor daily labs and chest x-rays. Electrolyte replacement per protocol. Will transfuse 1 unit packed red blood cells today 7. GI/DVT prophylaxis. 8. Insulin management per primary care service. Patient is a diabetic with a preoperative hemoglobin A1c of 5.6% on multiple oral medications, needs tighter blood sugar control as he is still having blood sugars in the 200s 9. Pain control with current medication regimen. Avoid narcotics 10. Will discontinue Mooney and trial void again today as it has been a week since reinsertion of Mooney catheter. If the patient continues to have high residual will reinsert Mooney and reconsult urology. Continue Flomax 11. Strict accurate intake and output. Daily weights. 12. Dr. Chen consulted due to leukocytosis. Continue Eraxis, cefepime discontinued as it reached its stop date. UA negative, sputum culture negative, blood cultures preliminary negative. CRP, pro-calcitonin trending down. Remains afebrile 13. Smoking cessation counseling and education provided to patient and family 14. Medihoney ordered for sacral decubitus per Dr. Chen, patient may follow in the wound care center after discharge with recommendations for possible wound VAC 15. Plan is for discharge to inpatient rehab due to medical debility in need for daily physician input regarding activity level, lab work and medication adjustments 16. More recommendations to follow based on patient's clinical course.
--- NOTE | 2022-05-05 07:40 | XR ---
EXAMINATION TYPE: XR chest 1V portable DATE OF EXAM: 05/05/2022 6:15 AM COMPARISON: Chest radiographs from 05/04/2022. TECHNIQUE: XR chest 1V portable Portable AP radiograph of the chest. CLINICAL INDICATION:Male, 72 years old with history of post cardiac surgery; FINDINGS: Lungs/Pleura: Consolidation changes and right pleural effusion are similar to prior. The left lung de monstrates scattered airspace opacities with suspected skinfold on the left upper outer lateral aspec t. Pulmonary vascularity: Pulmonary vascular congestion. Heart/mediastinum: Cardiomediastinal silhouette is enlarged and stable. Post valve repair changes. Musculoskeletal: No acute osseous pathology. Midline sternotomy wires are noted. IMPRESSION: 1. Similar right pleural effusion with associated atelectasis and suggest some loculations pleural f luid along the right lateral wall. 2. Cardiomegaly with Scattered haziness of lungs is not significantly changed given patient position ing. Correlate for congestive heart failure.
[2022-05-05] MEDS: IPRATROPIUM-ALBUTEROL 3 ML NEB INHALATION SCH ×4 (07:52→18:59)
[2022-05-05] MEDS: SYMBICORT 160-4.5 MCG INHALER INHALATION SCH ×2 (07:52→18:59)
[2022-05-05 09:36] LABS: Glucose,Whole Blood 261 mg/dL (70-110)
[2022-05-05] MEDS: INSULIN ASPART (NovoLOG) 100 UNIT/ML VIAL SQ SCH ×4 (09:46→20:28)
[2022-05-05] MEDS: METOPROLOL TARTRATE 25 MG TAB PO SCH ×2 (09:47→20:29)
[2022-05-05] MEDS: TAMSULOSIN 0.4 MG CAP.ER.24H PO SCH (09:47)
[2022-05-05] MEDS: ATORVASTATIN 40 MG TAB PO SCH (09:47)
[2022-05-05] MEDS: ASPIRIN 81 MG PO SCH (09:47)
[2022-05-05] MEDS: POTASSIUM CHLORIDE ER 20 MEQ TAB.ER PO SCH (09:48)
[2022-05-05] MEDS: APIXABAN 5 MG TAB PO SCH ×2 (09:49→20:29)
[2022-05-05] MEDS: AMIODARONE 200 MG TAB PO SCH (09:49)
[2022-05-05] MEDS: ANIDULAFUNGIN 100 MG in SODIUM CHLORIDE 0.9% 100 ML IVPB SCH (09:55)
[2022-05-05] MEDS: FERROUS SULFATE 325 MG TAB PO SCH ×2 (09:56→20:29)
[2022-05-05] MEDS: guaiFENesin-DM 600/30MG 1 EACH TAB.ER.12H PO SCH ×2 (09:56→21:02)
[2022-05-05] MEDS: acetaZOLAMIDE 250 MG TAB PO SCH ×2 (09:56→21:02)
[2022-05-05] MEDS: BUMETANIDE 0.25 MG/ML 10 ML VIAL IV SCH (09:57)
[2022-05-05] MEDS: ASCORBIC ACID 500 MG TAB PO SCH (10:26)
[2022-05-05 11:38] LABS: Glucose,Whole Blood 249 mg/dL (70-110)
--- NOTE | 2022-05-05 12:24 | P.PN ---
Subjective Progress Note Date: 05/05/22 Principal diagnosis: Postoperative day # 16 Mitral valve repair with 28 mm physio-2 ring, CABG 3 with saphenous vein grafts to first diagonal, obtuse marginal, posterior descending coronary arteries, closure of PFO, endovascular vein harvest, modified Castanon maze procedure with full left-sided lesion set and ligation of the left atrial appendage, SCOTT by anesthesia. Protamine reaction intraoperative Reevaluated today on 04/30/22, patient is sitting up in a bedside chair, he is awake alert oriented 3, he does complain of shortness of breath, remind you that the patient does have history of severe underlying COPD, FEV1 is normally just over 1 L, 42% of the predicted value. Patient is on bronchodilators for his underlying COPD. Chest x-ray is showing small pleural effusions, not large enough to consider thoracentesis. Remains on diuretics in the form of Bumex. Patient is also on metoprolol 25 twice a day and on amiodarone. Patient does not seem to be in distress, he is on 3 L nasal cannula. WBC count today 17.8 hemoglobin is 7.1, electrolytes are normal BUN is 84 creatinine 1.83, baseline is 1.43. The patient is seen today 05/01/2022 in follow-up in the intensive care unit. He is currently sitting up in a chair at the bedside. Awake and alert in no acute distress. Feeling a bit stronger today compared to yesterday. He is maintaining good O2 saturations in the mid 90s on 2 L/m per nasal cannula. He is afebrile. Hemodynamically stable. He did undergo a left-sided thoracentesis yesterday with approximately 850 mL of slightly serosanguineous fluid removed. This was transudate with the protein of 1.8 and an LDH 175. Chest x-ray shows improved aeration. No pneumothorax post procedure. He is continuing to work with the incentive spirometer. Follow-up limited echocardiogram revealed that ejection fraction of 45-50% with atypical septal motion. Evidence of mitral valve repair. Moderate aortic stenosis with a mean gradient 20 mmHg. No e vidence of pericardial effusion. He is status post 2 units of packed red blood cells, 2 units of fresh frozen plasma and 1 unit of platelets this admission. White count 15.3. Hemoglobin 7.2. Platelets 305. Sodium 131. Potassium 4.0. Bicarb 32. BUN 79. Creatinine 1.57. Glucose 143. AST 43. ALT 131. Albumin 3.2. He remains on bronchodilators, antibiotics in the form of cefepime. Hepar in for DVT prophylaxis. Continued on amiodarone. Currently in a regular rhythm. Reevaluated today on 05/02/2022, patient is doing great, much better today compared to the last few days, breathing easier, does not seem to be in any distress. Chest x-ray shows a small tiny pleural effusions not large enough to consider repeat thoracentesis. WBC count is 16.9 hemoglobin is 7.4. Electrodes are normal BUN is 77 creatinine 1.54. Reevaluated today on 05/03/22, patient is basically about the same, today he seems to be a bit more short of breath but he was yesterday. Chest x-ray is basically about the same, patient remains on diuretics, remains on bronchodilators, remains on 3 L nasal cannula. No major change overall in the last 24 hours except he seems to be more symptomatic today. Patient was noted to have a bit of leukocytosis today, WBC count is 17.0 hemoglobin is 7.5, but no clear-cut evidence of infection. Basic metabolic profile is normal. Urinalysis is unremarkable. Patient was seen by infectious disease on consultation, he is now on empiric cefepime although no clear-cut evidence of infection except the patient does have leukocytosis Reevaluated today on 05/04/22, patient remains in the ICU, continues to have good days and bad days, today he seems to be a bit more short of breath, chest x-ray showed mild pulmonary vascular congestion, and bilateral small pleural ef fusions. Ultrasound of the chest from yesterday showed at 10 cm pocket in the left pleural space, hence I went ahead and recommended thoracentesis, I was able to drain 550 mL of serosanguineous fluid from the left pleural space. No complications post procedure. The procedure was well-tolerated. In the meantime the patient remains on diuretics, bronchodilators, and he is also on antibiotics empirically because of leukocytosis. Hemoglobin is down today to 6.1, and the patient is scheduled to have a unit of packed RBCs, I believe this will significantly improve his shortness of breath. Electrolytes are normal his BUN is 75 creatinine 1.75 Reevaluated today on 06/01/22, remains in the ICU, remains marginal at best. Today the patient is feeling a bit better, and he would likely feel even better once he gets another unit of packed RBCs continues to have low hemoglobin. Chest x-ray showed minimal atelectasis, no clear-cut evidence of congestive heart failure. Patient is sitting at a bedside chair, he is on 2 L nasal cannula, able to achieve about 1000 mL via incentive spirometry. No pain, no discomfort, continues to have a sacral decubitus ulcer stage II3. Hemoglobin today is 6.7, was 6.1 yesterday, and he will receive another unit of packed RBCs today. Objective - Vital Signs Vital signs: Vital Signs Temp 98.0 F 05/05/22 10:24 Pulse 64 05/05/22 11:18 Resp 16 05/05/22 11:00 BP 115/56 05/05/22 11:00 Pulse Ox 97 05/05/22 10:24 FiO2 100 04/22/22 16:00 Intake & Output 05/04/22 05/05/22 05/05/22 18:59 06:59 18:59 Intake Total 705 935 Output Total 2165 1650 850 Balance -2165 -945 85 Weight 90.7 kg Intake: IV 55 5 0.9 55 5 Intake, IV Titration 100 Amount Anidulafungin 100 mg In 100 Sodium Chloride 0.9% 100 ml @ 84 mls/hr IVPB DAILY [facility] Rx#:[id number] Oral 340 520 Blood Product 310 310 Rc As-1 Unit 310 [id number] Rc As-1 Unit 310 [id number] Output: Urine 2165 1650 850 Other: Voiding Method Indwelling Catheter Indwelling Catheter # Bowel Movements 1 ABP, PAP, CO, CI - Last Documented Arterial Blood Pressure 137/47 Pulmonary Artery Pressure 67/18 Cardiac Output 5.8 Cardiac Index 2.8 - Exam Physical Exam: Revealed a 72-year-old white male in no distress, looks pale, he is on 2 L nasal cannula Head: Atraumatic, normocephalic. HEENT:[Neck is supple.] [No neck masses.] [No thyromegaly.] [No JVD.] Chest: Diminished breath sounds at the bases with crackles at the bases no rhonchi and no wheezes Cardiac Exam: Irregular irregular rhythm. [Normal S1 and S2, no S3 gallop, no murmur.] Abdomen: [Soft, nontender, no megaly, no rebound, no guarding, normal bowel sounds.] Extremities: [No clubbing, 1+ bipedal edema, no cyanosis.] Neurological Exam: [No focal neurologic deficit.] Alert oriented 3. Psychiatric: Normal mood affect and normal mental status examination. Skin: No rashes. Patient has a sacral decubitus ulcer 23 - Labs CBC & Chem 7: 05/05/22 06:03 05/05/22 06:03 Labs: Abnormal Lab Results - Last 24 Hours (Table) 04/12/22 05/04/22 05/04/22 Range/Units 09:21 07:55 11:33 WBC (3.8-10.6) k/uL RBC (4.30-5.90) m/uL Hgb (13.0-17.5) gm/dL Hct (39.0-53.0) % MCHC (31.0-37.0) g/dL RDW (11.5-15.5) % Sodium (137-145) mmol/L Chloride (98-107) mmol/L Carbon Dioxide (22-30) mmol/L BUN (9-20) mg/dL Creatinine (0.66-1.25) mg/dL Glucose (74-99) mg/dL POC Glucose (mg/dL) (70-110) mg/dL Calcium (8.4-10.2) mg/dL Crossmatch See Detail See Detail See Detail 05/04/22 05/04/22 05/05/22 Range/Units 16:37 20:52 06:03 WBC 18.1 H (3.8-10.6) k/uL RBC 2.43 L (4.30-5.90) m/uL Hgb 6.7 L* (13.0-17.5) gm/dL Hct 23.4 L (39.0-53.0) % MCHC 28.8 L (31.0-37.0) g/dL RDW 16.8 H (11.5-15.5) % Sodium (137-145) mmol/L Chloride (98-107) mmol/L Carbon Dioxide (22-30) mmol/L BUN (9-20) mg/dL Creatinine (0.66-1.25) mg/dL Glucose (74-99) mg/dL POC Glucose (mg/dL) 212 H 249 H (70-110) mg/dL Calcium (8.4-10.2) mg/dL Crossmatch 05/05/22 05/05/22 05/05/22 Range/Units 06:03 09:34 11:36 WBC (3.8-10.6) k/uL RBC (4.30-5.90) m/uL Hgb (13.0-17.5) gm/dL Hct (39.0-53.0) % MCHC (31.0-37.0) g/dL RDW (11.5-15.5) % Sodium 134 L (137-145) mmol/L Chloride 95 L (98-107) mmol/L Carbon Dioxide 33 H (22-30) mmol/L BUN 85 H (9-20) mg/dL Creatinine 1.46 H (0.66-1.25) mg/dL Glucose 150 H (74-99) mg/dL POC Glucose (mg/dL) 261 H 249 H (70-110) mg/dL Calcium 8.3 L (8.4-10.2) mg/dL Crossmatch Microbiology - Last 24 Hours (Table) 04/29/22 09:27 Blood Culture - Final Blood No Growth after 144 hours 04/29/22 09:22 Blood Culture - Final Blood No Growth after 144 hours 04/30/22 16:45 Gram Stain - Final Pleural Fluid Body Fluid Culture - Final 05/03/22 05:54 Blood Culture - Preliminary Blood No Growth after 48 hours Assessment and Plan Assessment: Impression: 1. Severe mitral valve regurgitation, status post mitral valve repair, postoperative day # 16 2. Coronary artery disease, previous PCI, previous non-STEMI, status post CABG 3, postop day # 16 3. History of paroxysmal atrial fibrillation, previous cardioversion, on [facility] outpatient for anticoagulation, status post modified Castanon maze and ligation of left atrial appendage, postop day # 16 4. Patent foramen ovale, status post closure, postop day # 16 5. Atrial fibrillation, expected outcome of surgery and the patient is back to normal sinus rhythm. The patient is currently on oral amiodarone, and meto prolol. No anticoagulations yet. 6. Chronic systolic congestive heart failure, ischemic cardiomyopathy with EF 40-45% 7. History of hypertension 8. History hyperlipidemia, treated, cholesterol 150, LDL 72 9. Right internal carotid stenosis 50-79% 10. Anemia with history of GI bleed in November 2021 S/P transfusion PRBCs 11. Acute on chronic renal failure, creatinine is at 1.9 12. Diabetes mellitus type 2, preoperative hemoglobin A1c 5.6% currently Levemir insulin 8 units along with a sliding scale coverage 13. Osteoarthritis 14. Severe COPD, preoperative FEV1 41% of predicted 15. Chronic ongoing nicotine dependence 16. Remote history of pneumonia 17. Chronic low back pain, hearing disorder 18. Nasal swab positive for MSSA preoperative 19. Postoperative acute blood loss anemia, expected 20. Elevated transaminases, most likely due to shock liver and the significant elevation of the ALT and AST which are being monitored, and the level is also improving and there is a decline and LFTs 21. Protamine reaction intraoperative 22 decubitus ulcer stage 2 23, small left-sided pleural effusion along with some left basilar atelectasis, patient is status post repeat thoracentesis on 05/04/22, 550 mL of serosanguineous fluid was removed from the left. Previous thoracentesis was done a few days ago and I was able to drain 850 mL of serosanguineous fluid from the left pleural space also hence patient is status post left-sided thoracentesis 2 24 chronic right lower lobe atelectasis and chronically abnormal chest x-ray in the right lower lobe area Recommendation: Agree with blood transfusion today, patient should receive another unit of packed RBCs. Continue aspirin and Plavix beta blockers and statins. Continue eliquis Continue diuretics. Continue amiodarone. Continue daily weights. Ambulate as much as possible and encouraged to ambulate Continue oxygen and titrate accordingly Continue bronchodilators and diuretics Continue incentive spirometry Continue GI and DVT prophylaxis Continue metoprolol and amiodarone. Continue antibiotics empirically/cefepime Possible rehab placement We'll continue to follow Time with Patient: Less than 30
[2022-05-05] MEDS: NON FORMULARY DRUG SQ SCH (13:13)
[2022-05-05] MEDS: ISOSORBIDE MONONITRATE ER 15 MG TAB PO SCH (13:20)
--- NOTE | 2022-05-05 14:23 | P.PN ---
Progress Note - Text Progress Note Date: 05/05/22 Patient is a pleasant 72-year-old male came in the for elective mitral valve repair, CABG x 3 vessel, maze procedure, PFO closure. Patient is extubated sitting in the chair patient still has a [place]-Varghese catheter, CVP of around 12, cardiac index 3.1 patient creatinine went up to 1.70 resulting elevated potassium of 5.5 patient is off pressor support, off nitro drip patient still has 2 mediastinal and one left-sided chest tube. 04/21/2022 Patient is evaluated in ICU today, sitting up in chair. He is postoperative day #2 for elective mitral valve repair, hematocrit bypass grafting maze procedure and PFO closure. He is on BiPAP with fio2 of 40% Continues with mediastinal/left pleural chest tubes. Continue with indwelling catheter. Received dose of IV albumin yesterday afternoon. Chest xray today showing ongoing mild pulmonary vascular congestion, increasing patchy bibasilar opacities, atelectasis vs. pulmonary edema. Currently on lasix gtt at 10mls/hr, continues on dopamine gtt at 3.68 mls/hr. Continues on insulin gtt and blood glucose remains in the 140 to 130s. Labs today showing sodium 132, potassium 6.1 improved to 5.4, BUN 41, creatinine 2.53, elevated liver enzymes. Hgb 7.3. 04/22/2022 Patient continues to be monitored closely in intensive care unit, he is postoperative day #3 for elective mitral valve repair, maze procedure, PFO closure. Managed by primary team. He had limited echocardiogram completed showing EF 45 to 50%, mild to moderate MR, moderate pulmonary hypertension with moderate TR. Chest xray today shows slight improvement in pulmonary vascular congestion. Maintained on lasix gtt at 10mls/hr, dopamine gtt, Continues with 2 mediastinal chest tubes. Continues with indwelling catheter. Continues with right IJ swan/cordis, right radial arterial line. He has been weaned off BiPAP currently on high flow cannula at 15L. He has been tolerating some diet. Continues on insulin gtt which will continue until his diet stabilizes. Current glucose in the 140s. Creatinine today 3.14. April 23: [facility] In a recliner. Tired. Little oral intake. Nasal cannula. Drips include IV dopamine and Lasix. Some shortness of breath. Mooney catheter. 04/24/2022: ICU. Up. 4 L nasal cannula. Did eat better. Edema present. On the Lasix drip 5 mg an hour. Some improvement in creatinine. 04/25/2022: ICU. Up in a recliner. Eating better. at the bedside. Edema present. Off Lasix drip. Feeling better. Creatinine coming down. LFTs improving. Home dose of Victoza was started 04/26/2022: ICU. Up in a recliner. 4 L nasal cannula. Eating about 50%. Accu-Cheks noted. 04/27/2022: ICU: Patient went into atrial fibrillation overnight. Put on oral amiodarone and Lopressor per CTS.. Some worsening of shortness of breath. Placed on IV Lasix. Eating some. Up in a recliner. 04/28/2022: ICU. Patient received Lopressor today for the A. fib. Patient went down into sinus rhythm. Blood pressure also dropped her was 70 systolic. Oxygen increased to 4 L. Short of breath. Patient did walk 10-12 steps up to the door. Eating fair. Lower extremity edema edema present. Up in a chair. Tired. 04/29/2022: ICU. Short of breath. 3 L nasal cannula. Eating fair. Edema pre sent. Getting Bumex. Getting IV albumin and IV calcium. Using incentive spirometry. Up in a chair. Discussed with at the bedside. Increasing white count, infiltrated urine chest x-ray suggestive of pneumonia. Started on IV cefepime 04/30/2022: ICU. Remains short of breath. 3 L nasal cannula. Started on IV cefepime yesterday.. Oral intake fair. Edema present. Remains on Bumex. Fo sher catheter. Discussed with patient and at the bedside. Discussed with Dr. Cortez from cardiothoracic surgery. 05/01/2022: ICU. Zaroxolyn was added. Good diuresis. Breathing better. On IV cefepime. Left paracentesis is done. 850 mL removed. Oral intake fair. Breathing a bit better. Telemetry shows sinus rhythm. 2 L nasal cannula. at the bedside. Will DC Actos. Even though smaller dose. Given CHF renal failure. Increase Lantus to 12 units. 05/02/2022: ICU. Over 3 is a negative fluid balance. Last 24 hours. Some improvement in breathing. Oral intake fair. Remains in atrial fibrillation controlled. 2 L nasal cannula. Add Diamox. 4 metabolic alkalosis 05/03/2022: ICU. This morning patient became short of breath. Dr. Chen from [place] consulted for sacral decub. Remains on IV cefepime. Oral intake fair. Had a BM. On IV Bumex. I discussed with Dr. Aguilar from pulmonary. Patient is known to him. Advanced COPD. His right lung changes are chronic. Has had previous CAT scans. He may have had a located effusion. 05/04/2022: ICU. Breathing a bit better. Hemoglobin dropped to 6.1. Awaiting transfusion. Tolerating diet. On IV cefepime. Patient started on IV eraxis by Dr. Prescott from [place]. 05 May 2022: ICU. Patient received a unit of blood yesterday evening. Getting another unit of blood today. Breathing better. Remains on IV Bumex. IV cefepime discontinued. Remains on IV Eraxis. Oral intake fair. Up in a chair. at the bedside. Increase Levemir to 20 units at night. Active Medications Acetaminophen (Acetaminophen Tab 325 Mg Tab) 650 mg PO Q6HR PRN PRN Reason: Fever and/ or Pain Last Admin: 05/05/22 10:26 Dose: 650 mg Acetazolamide (Acetazolamide 250 Mg Tab) 250 mg PO BID [facility] Last Admin: 05/05/22 09:56 Dose: 250 mg Albuterol/Ipratropium (Ipratropium-Albuterol 3 Ml Neb) 3 ml INHALATION RT-Q2H PRN PRN Reason: Shortness Of Breath Or Wheezing Last Admin: 04/29/22 23:30 Dose: 3 ml Albuterol/Ipratropium (Ipratropium-Albuterol 3 Ml Neb) 3 ml INHALATION RT-QID [facility] Last Admin: 05/05/22 11:08 Dose: 3 ml Amiodarone HCl (Amiodarone 200 Mg Tab) 200 mg PO DAILY [facility] Last Admin: 05/05/22 09:49 Dose: 200 mg Apixaban (Apixaban 5 Mg Tab) 5 mg PO BID [facility]; Protocol Last Admin: 05/05/22 09:49 Dose: 5 mg Ascorbic Acid (Ascorbic Acid 500 Mg Tab) 500 mg PO DAILY [facility] Last Admin: 05/05/22 10:26 Dose: 500 mg Aspirin (Aspirin 81 Mg) 81 mg PO DAILY [facility] Last Admin: 05/05/22 09:47 Dose: 81 mg Atorvastatin Calcium (Atorvastatin 40 Mg Tab) 40 mg PO DAILY [facility] Last Admin: 05/05/22 09:47 Dose: 40 mg Benzocaine/Menthol (Benzocaine/Menthol Lozeng 1 Each Lozenge) 1 each MUCOUS MEM Q2HR PRN PRN Reason: Sore Throat Last Admin: 05/02/22 15:04 Dose: 1 each Bisacodyl (Bisacodyl 10 Mg Supp) 10 mg RECTAL DAILY PRN PRN Reason: Constipation Last Admin: 05/02/22 08:17 Dose: 10 mg Budesonide/Formoterol Fumarate (Symbicort 160-4.5 Mcg Inhaler) 2 puff INHALATION RT-BID [facility] Last Admin: 05/05/22 07:52 Dose: 2 puff Bumetanide (Bumetanide 0.25 Mg/Ml 10 Ml Vial) 2 mg IV DAILY [facility] Last Admin: 05/05/22 09:57 Dose: 2 mg Dextrose/Water (Dextrose 50% Syringe 50 Ml) 25 ml IVP PER PROTOCOL PRN; Protocol PRN Reason: Hypoglycemia Dextrose/Water (Dextrose 50% Syringe 50 Ml) 50 ml IVP PER PROTOCOL PRN; Protocol PRN Reason: Hypoglycemia Dextrose/Water (Dextrose 50% Syringe 50 Ml) 25 ml IVP PER PROTOCOL PRN; Protocol PRN Reason: Hypoglycemia Dextrose/Water (Dextrose 50% Syringe 50 Ml) 50 ml IVP PER PROTOCOL PRN; Protocol PRN Reason: Hypoglycemia Ferrous Sulfate (Ferrous Sulfate 325 Mg Tab) 325 mg PO BID [facility] Last Admin: 05/05/22 09:56 Dose: 325 mg Guaifenesin/Dextromethorphan (Guaifenesin-Dm 600/30mg 1 Each Tab.Er.12h) 1 each PO Q12HR [facility] Last Admin: 05/05/22 09:56 Dose: 1 each Calcium Gluconate/Sodium (Chloride 2 gm/ IV Solution) 100 mls @ 100 mls/hr IVPB ONCE PRN PRN Reason: Ionized Calcium less than 4.4 Stop: 05/19/22 23:00 Anidulafungin 100 mg/ Sodium (Chloride) 100 mls @ 84 mls/hr IVPB DAILY [facility]; Protocol Last Admin: 05/05/22 09:55 Dose: 84 mls/hr Insulin Aspart (Insulin Aspart (Novolog) 100 Unit/Ml Vial) 0 unit SQ ACHS [facility]; Protocol Last Admin: 05/05/22 13:17 Dose: 4 unit Insulin Detemir (Insulin Detemir (Levemir) 100 Unit/Ml Syr) 16 unit SQ HS [facility] Last Admin: 05/04/22 21:19 Dose: 16 unit Isosorbide Mononitrate (Isosorbide Mononitrate Er 15 Mg Tab) 15 mg PO DAILY@1200 [facility] Last Admin: 05/05/22 13:20 Dose: Not Given Magnesium Hydroxide (Magnesium Hydroxide 2,400 Mg/10 Ml Cup) 2,400 mg PO BID PRN PRN Reason: Constipation Last Admin: 04/22/22 07:08 Dose: 2,400 mg Metoprolol Tartrate (Metoprolol Tartrate 25 Mg Tab) 25 mg PO BID [facility] Last Admin: 05/05/22 09:47 Dose: 25 mg Miscellaneous Information (Potassium Replacement Protocol 1 Each Misc) 1 each MISCELLANE DAILY PRN; Protocol PRN Reason: Per Protocol Miscellaneous Information (Magnesium Replacement Protocol 1 Each Misc) 1 each MISCELLANE DAILY PRN; Protocol PRN Reason: Per Protocol Non-Formulary Medication (Non Formulary Drug) 1 each SQ DAILY [facility] Last Admin: 05/05/22 13:13 Dose: 1 each Ondansetron HCl (Ondansetron 4 Mg/2 Ml Vial) 4 mg IVP Q6HR PRN PRN Reason: Nausea And Vomiting Last Admin: 04/27/22 09:22 Dose: 4 mg Potassium Chloride (Potassium Chloride Er 20 Meq Tab.Er) 20 meq PO DAILY [facility] Last Admin: 05/05/22 09:48 Dose: 20 meq Senna/Docusate Sodium (Sennosides-Docusate Sodium 1 Each Tab) 2 each PO HS [facility] Last Admin: 05/04/22 21:17 Dose: 2 each Sodium Chloride (Sodium Chloride 0.9% Flush 10 Ml Syringe) 10 ml IV BID [facility] Last Admin: 05/05/22 09:48 Dose: 10 ml Tamsulosin HCl (Tamsulosin 0.4 Mg Cap.Er.24h) 0.4 mg PO PC-BRKFST [facility] Last Admin: 05/05/22 09:47 Dose: 0.4 mg On examination: VITAL SIGNS: 65, 19, 101/50, 98% on 2 L GENERAL APPEARANCE: Up in chair, less short of breath HEENT: Normal external appearance of nose and ear. Oral cavity normal EYES: Pupils equal. Conjunctiva normal. NECK: JVD not raised. Mass not palpable. RESPIRATORY: Respiratory effort increased. Lungs diminished breath sounds. CARDIOVASCULAR: First and second sounds normal. Edema present ABDOMEN: Soft. Liver and spleen not palpable. No tenderness. No mass palpable. Mooney catheter PSYCHIATRY: AO 3, mood and affect normal INVESTIGATIONS, reviewed in the clinical context: 05/05/2022: WBC 18.1 hemoglobin 6.7 potassium 4. 85 creatinine 1.46 05/04/2022: WBC 16 hemoglobin 6.1 platelets 362 potassium 3.7 BUN 75 creatinine 1.75 Limited 2-D echocardiogram [May 01]: EF 45%. [id number] MR, moderate aortic stenosis 05/01/2022: WBC 15.3 hemoglobin 7.2 platelets 305 potassium 4. [address] chest [April 29]: Moderate partial obliterate right pleural effusion, left pleural effusion, cardiomegaly. 04/24/2022: WBC 9.2 hemoglobin 7.1 platelets 122 potassium 5.1 BUN 77 creatinine 2.97 AST 1270 ALT 1038 WBC 8.2 hemoglobin 7.5 platelets 111 sodium 135 progression 6 BUN 67 creatinine 3.43 AST 3595 ALT 1512 Limited 2-D echocardiogram: EF 45-50%. Inferior wall hypokinesis. Moderate MR. Moderate pulmonary hypertension with moderate TR. Assessment and plan -Acute on chronic congestive heart exacerbation from systolic/diastolic dysfunction EF 45-50%:, precipitated by A. fib: Slow to respond IV Bumex 2 mg daily. -pneumonia, short of breath, infiltrate on chest x-ray, increasing white count and procalcitonin: Better IV cefepime-completed -Acute hypoxic respiratory failure from pulmonary edema/pneumonia: 2 L nasal cannula -Diabetes Mellitus type 2 with hyperglycemia, Victoza , Actos-discontinue. Increase Levemir 20 units daily at bedtime -Paroxysmal atrial fibrillation status post modified Castanon-Maze procedure,: With rapid ventricular rate: Now - sinus rhythm amiodarone ,Lopressor. -acute renal failure on chronic kidney disease stage II with renal failure is probably prerenal azotemia, cardiorenal syndrome.: Creatinine peaked at 3.43. Creatinine 1.46 -hyperkalemia secondary to acute renal failure: Corrected Received Lokelma. Renal diet -Acute hepatitis, likely ischemic: Improving Follow closely. GI services not available in the hospital. Hold any hepatic offensive medications. Follow LFTs patient as patient started back on amiodarone -Acute COPD exacerbation, in a smoker DuoNeb. Symbicort -Hyperlipidemia Lipitor -Sacral decubitus ulcer: Stage II Follow with/Dr. Chen -Metabolic alkalosis from diuresis Diamox - coronary artery disease with previous PCI Aspirin, Lasix, Imdur, Lopressor -Acute postprocedure blood loss anemia as expected from surgery, also hospital- acquired anemia from blood draws 3 units of PRBC, follow CBC. Awaiting 30 unit of blood -Chronic nicotine dependence - post mitral valve failure, status post CABG, status post PFO closure: Currently [id number] MR -Moderate aortic stenosis -Moderate secondary pulmonary hypertension IV cefepime discontinued. Oxygen. IV Bumex. iv eraxis. Patient will be getting second unit of blood.. Follow with multiple consultants. Increase Levemir to 20 units at night.
[2022-05-05 16:58] LABS: Glucose,Whole Blood 148 mg/dL (70-110)
[2022-05-05 20:19] LABS: Glucose,Whole Blood 239 mg/dL (70-110)
[2022-05-05] MEDS: SENNOSIDES-DOCUSATE SODIUM 1 EACH TAB PO SCH (20:30)
[2022-05-05] MEDS ORDERED: INSULIN DETEMIR (LEVEMIR) 100 UNIT/ML SYR SQ SCH (21:00)
--- NOTE | 2022-05-05 23:46 | P.PN ---
Subjective Progress Note Date: 05/04/22 Principal diagnosis: Leukocytosis Patient is a 72-year-old male electively admitted to the hospital 04/19/2022 for mitral valve repair and coronary bypass grafting 3 and this patient has been afebrile however noticed to have worsening leukocytosis. On today's evaluation that is 05/04/2022, the patient remains to be afebrile, the patient is breathing comfortably on nasal cannula oxygen, denies any chest pain no worsening cough or sputum production no abdominal pain or diaphoresis or vomiting or pain to the lower back area Objective - Vital Signs Vital signs: Vital Signs Temp 97.8 F 05/04/22 08:00 Pulse 64 05/04/22 11:00 Resp 22 05/04/22 11:00 BP 99/56 05/04/22 11:00 Pulse Ox 97 05/04/22 11:00 FiO2 100 04/22/22 16:00 Intake & Output 05/03/22 05/04/22 05/04/22 18:59 06:59 18:59 Intake Total 1080 Output Total 1565 1630 915 Balance -485 -1630 -915 Weight 93.4 kg Intake: Oral 1080 Output: Urine 1565 1630 915 Other: Voiding Method Indwelling Catheter Indwelling Catheter Indwelling Catheter ABP, PAP, CO, CI - Last Documented Arterial Blood Pressure 137/47 Pulmonary Artery Pressure 67/18 Cardiac Output 5.8 Cardiac Index 2.8 - Exam GENERAL DESCRIPTION: An elderly male up in the chair in no distress RESPIRATORY SYSTEM: Unlabored breathing , decreased breath sounds at bases HEART: S1 S2 regular rate and rhythm , ABDOMEN: Soft , no tenderness EXTREMITIES: 2+ edema feet - Labs CBC & Chem 7: 05/05/22 06:03 05/05/22 06:03 Labs: Abnormal Lab Results - Last 24 Hours (Table) 05/03/22 05/03/22 05/04/22 Range/Units 16:20 20:59 06:07 WBC 16.0 H (3.8-10.6) k/uL RBC 2.12 L (4.30-5.90) m/uL Hgb 6.1 L* (13.0-17.5) gm/dL Hct 21.0 L (39.0-53.0) % MCHC 28.9 L (31.0-37.0) g/dL Sodium (137-145) mmol/L Chloride (98-107) mmol/L Carbon Dioxide (22-30) mmol/L BUN (9-20) mg/dL Creatinine (0.66-1.25) mg/dL Glucose (74-99) mg/dL POC Glucose (mg/dL) 170 H 208 H (70-110) mg/dL Calcium (8.4-10.2) mg/dL ALT (4-49) U/L Total Protein (6.3-8.2) g/dL Albumin (3.5-5.0) g/dL Crossmatch 05/04/22 05/04/22 05/04/22 Range/Units 06:07 07:37 07:55 WBC (3.8-10.6) k/uL RBC (4.30-5.90) m/uL Hgb (13.0-17.5) gm/dL Hct (39.0-53.0) % MCHC (31.0-37.0) g/dL Sodium 132 L (137-145) mmol/L Chloride 92 L (98-107) mmol/L Carbon Dioxide 36 H (22-30) mmol/L BUN 75 H (9-20) mg/dL Creatinine 1.75 H (0.66-1.25) mg/dL Glucose 152 H (74-99) mg/dL POC Glucose (mg/dL) 182 H (70-110) mg/dL Calcium 8.3 L (8.4-10.2) mg/dL ALT 73 H (4-49) U/L Total Protein 5.0 L (6.3-8.2) g/dL Albumin 2.8 L (3.5-5.0) g/dL Crossmatch See Detail 05/04/22 Range/Units 11:02 WBC (3.8-10.6) k/uL RBC (4.30-5.90) m/uL Hgb (13.0-17.5) gm/dL Hct (39.0-53.0) % MCHC (31.0-37.0) g/dL Sodium (137-145) mmol/L Chloride (98-107) mmol/L Carbon Dioxide (22-30) mmol/L BUN (9-20) mg/dL Creatinine (0.66-1.25) mg/dL Glucose (74-99) mg/dL POC Glucose (mg/dL) 217 H (70-110) mg/dL Calcium (8.4-10.2) mg/dL ALT (4-49) U/L Total Protein (6.3-8.2) g/dL Albumin (3.5-5.0) g/dL Crossmatch Microbiology - Last 24 Hours (Table) 04/29/22 09:27 Blood Culture - Preliminary Blood No Growth after 120 hours 04/29/22 09:22 Blood Culture - Preliminary Blood No Growth after 120 hours 04/30/22 16:45 Gram Stain - Preliminary Pleural Fluid Body Fluid Culture - Preliminary 05/03/22 05:54 Blood Culture - Preliminary Blood No Growth after 24 hours Assessment and Plan (1) Leukocytosis Current Visit: Yes Status: Acute Code(s): D72.829 - ELEVATED WHITE BLOOD CELL COUNT, UNSPECIFIED SNOMED Code(s): 826796861 Plan: 1patient with a leukocytosis in this patient who is postop day #13 mitral valve repair and CABG x3 patient did not have any fever during this hospital stay and the white count has been slowly creeping up over the last 5 days source possible cath versus UTI versus his sacral pressure ulcer, patient started as well as vein grafting sites looks clean without evidence of any cellulitis he did have a thoracocentesis with fluid does not look infected. 2 blood cultures are currently pending UA was not significantly positive CRP mildly elevated. 3patient was advised Medihoney to the sacral wound however has been switched over to Aquacel silver dressing by the wound care nurse, keep the area of the pressure. 4 patient tocontinue the patient with cefepime and Eraxis white count slightly down to 16,000 today and will monitor daily Time with Patient: Less than 30
--- NOTE | 2022-05-05 23:48 | P.PN ---
Subjective Progress Note Date: 05/05/22 Principal diagnosis: Leukocytosis Patient is a 72-year-old male electively admitted to the hospital 04/19/2022 for mitral valve repair and coronary bypass grafting 3 and this patient has been afebrile however noticed to have worsening leukocytosis. On today's evaluation that is 05/05/2022, the patient continues to be afebrile, the patient is breathing comfortably on nasal cannula oxygen, the patient denies any chest pain no worsening cough or sputum production no abdominal pain however still complaining of pain to the sacral wound area but no worsening Objective - Vital Signs Vital signs: Vital Signs Temp 98.0 F 05/05/22 10:24 Pulse 67 05/05/22 12:00 Resp 20 05/05/22 12:00 BP 105/45 05/05/22 12:00 Pulse Ox 94 L 05/05/22 12:00 FiO2 100 04/22/22 16:00 Intake & Output 05/04/22 05/05/22 05/05/22 18:59 06:59 18:59 Intake Total 705 935 Output Total 2165 1650 850 Balance -2165 -945 85 Weight 90.7 kg Intake: IV 55 5 0.9 55 5 Intake, IV Titration 100 Amount Anidulafungin 100 mg In 100 Sodium Chloride 0.9% 100 ml @ 84 mls/hr IVPB DAILY [facility] Rx#:[id number] Oral 340 520 Blood Product 310 310 Rc As-1 Unit 310 [id number] Rc As-1 Unit 310 [id number] Output: Urine 2165 1650 850 Other: Voiding Method Indwelling Catheter Indwelling Catheter # Bowel Movements 1 ABP, PAP, CO, CI - Last Documented Arterial Blood Pressure 137/47 Pulmonary Artery Pressure 67/18 Cardiac Output 5.8 Cardiac Index 2.8 - Exam GENERAL DESCRIPTION: An elderly male up in the chair in no distress RESPIRATORY SYSTEM: Unlabored breathing , decreased breath sounds at bases HEART: S1 S2 regular rate and rhythm , ABDOMEN: Soft , no tenderness EXTREMITIES: 2+ edema feet - Labs CBC & Chem 7: 05/05/22 06:03 05/05/22 06:03 Labs: Abnormal Lab Results - Last 24 Hours (Table) 04/12/22 05/04/22 05/04/22 Range/Units 09:21 07:55 11:33 WBC (3.8-10.6) k/uL RBC (4.30-5.90) m/uL Hgb (13.0-17.5) gm/dL Hct (39.0-53.0) % MCHC (31.0-37.0) g/dL RDW (11.5-15.5) % Sodium (137-145) mmol/L Chloride (98-107) mmol/L Carbon Dioxide (22-30) mmol/L BUN (9-20) mg/dL Creatinine (0.66-1.25) mg/dL Glucose (74-99) mg/dL POC Glucose (mg/dL) (70-110) mg/dL Calcium (8.4-10.2) mg/dL Crossmatch See Detail See Detail See Detail 05/04/22 05/04/22 05/05/22 Range/Units 16:37 20:52 06:03 WBC 18.1 H (3.8-10.6) k/uL RBC 2.43 L (4.30-5.90) m/uL Hgb 6.7 L* (13.0-17.5) gm/dL Hct 23.4 L (39.0-53.0) % MCHC 28.8 L (31.0-37.0) g/dL RDW 16.8 H (11.5-15.5) % Sodium (137-145) mmol/L Chloride (98-107) mmol/L Carbon Dioxide (22-30) mmol/L BUN (9-20) mg/dL Creatinine (0.66-1.25) mg/dL Glucose (74-99) mg/dL POC Glucose (mg/dL) 212 H 249 H (70-110) mg/dL Calcium (8.4-10.2) mg/dL Crossmatch 05/05/22 05/05/22 05/05/22 Range/Units 06:03 09:34 11:36 WBC (3.8-10.6) k/uL RBC (4.30-5.90) m/uL Hgb (13.0-17.5) gm/dL Hct (39.0-53.0) % MCHC (31.0-37.0) g/dL RDW (11.5-15.5) % Sodium 134 L (137-145) mmol/L Chloride 95 L (98-107) mmol/L Carbon Dioxide 33 H (22-30) mmol/L BUN 85 H (9-20) mg/dL Creatinine 1.46 H (0.66-1.25) mg/dL Glucose 150 H (74-99) mg/dL POC Glucose (mg/dL) 261 H 249 H (70-110) mg/dL Calcium 8.3 L (8.4-10.2) mg/dL Crossmatch Microbiology - Last 24 Hours (Table) 04/29/22 09:27 Blood Culture - Final Blood No Growth after 144 hours 04/29/22 09:22 Blood Culture - Final Blood No Growth after 144 hours 04/30/22 16:45 Gram Stain - Final Pleural Fluid Body Fluid Culture - Final 05/03/22 05:54 Blood Culture - Preliminary Blood No Growth after 48 hours Assessment and Plan (1) Leukocytosis Current Visit: Yes Status: Acute Code(s): D72.829 - ELEVATED WHITE BLOOD CELL COUNT, UNSPECIFIED SNOMED Code(s): 862857615 Plan: 1patient with a leukocytosis in this patient who is postop day #13 mitral valve repair and CABG x3 patient did not have any fever during this hospital stay and the white count has been slowly creeping up over the last 5 days source possible cath versus UTI versus his sacral pressure ulcer, patient started as well as vein grafting sites looks clean without evidence of any cellulitis he did have a thoracocentesis with fluid does not look infected. 2 blood cultures are currently pending UA was not significantly positive CRP mildly elevated. 3patient was advised Medihoney to the sacral wound however has been switched over to Aquacel silver dressing by the wound care nurse, keep the area of the pressure. 4 patient did have slight worsening of his white count which is up to 18,000, he will continue with Eraxis, will add daptomycin to cover for the gram- positive, repeat a CRP and CBC with the a.m. lab Time with Patient: Less than 30
--- NOTE | 2022-05-06 06:11 | PN ---
PROGRESS NOTE SUBJECTIVE: A 72-year-old gentleman with history of coronary artery disease, status post CABG, mitral regurgitation, status post mitral valve repair, PFO status post closure and Castanon Maze procedure, who is postop day #16, is feeling somewhat better today, was received blood transfusion yesterday. OBJECTIVE: GENERAL: He is back in sinus rhythm with a heart rate of 65 beats per minute, blood pressure is 102/55, respiratory rate 18. CHEST: Exam reveals diminished air entry at the bases. HEART: Exam reveals first and second heart sounds. No gallop. EXTREMITIES: Exam of extremities did not reveal any edema. The patient is currently on amiodarone, Eliquis 5 b.i.d., Lipitor, Imdur, and Lopressor. ASSESSMENT: CAD, status post CABG. The patient's hemoglobin today is 6.7. We will continue him on his current medications. Increase his activity. MMODL / IJN: [id number] /
[2022-05-06 06:53] LABS: Glucose,Whole Blood 203 mg/dL (70-110)
[2022-05-06] MEDS: IPRATROPIUM-ALBUTEROL 3 ML NEB INHALATION SCH ×4 (06:53→20:05)
[2022-05-06] MEDS: SYMBICORT 160-4.5 MCG INHALER INHALATION SCH ×2 (06:53→20:05)
[2022-05-06 06:54] LABS: Anisocytosis Slight; HCT 20.4 % (39.0-53.0); Hypochromasia Marked; MCH 28.9 pg (25.0-35.0); MCHC 30.2 g/dL (31.0-37.0); MCV 95.5 fL (80.0-100.0); Macrocytosis Slight; Mean Platelet Volume 8.3; Platelet Count 322 k/uL (150-450); Poikilocytosis Slight; RBC 2.14 m/uL (4.30-5.90); RDW 17.8 % (11.5-15.5); WBC 19.7 k/uL (3.8-10.6)
[2022-05-06 06:56] LABS: Albumin 2.7 g/dL (3.5-5.0); Calcium 8.2 mg/dL (8.4-10.2); Magnesium 2.3 mg/dL (1.6-2.3); Potassium 3.8 mmol/L (3.5-5.1); Total Bilirubin 0.7 mg/dL (0.2-1.3); Total Protein 4.9 g/dL (6.3-8.2)
[2022-05-06 07:02] LABS: HGB 6.2 gm/dL (13.0-17.5)
[2022-05-06] MEDS: APIXABAN 5 MG TAB PO SCH (07:11)
--- NOTE | 2022-05-06 07:19 | XR ---
EXAMINATION TYPE: XR chest 1V portable DATE OF EXAM: 05/06/2022 5:30 AM COMPARISON: Chest radiograph from one day prior. TECHNIQUE: XR chest 1V portable Portable AP radiograph of the chest. CLINICAL INDICATION:Male, 72 years old with history of post cardiac surgery; FINDINGS: Lungs/Pleura: Blunting of the right costophrenic angle. No evidence of pneumothorax. Pulmonary vascularity: Pulmonary vascular congestion. Heart/mediastinum: Cardiomediastinal silhouette is enlarged and stable. Post valve repair changes. Musculoskeletal: No acute osseous pathology. Midline sternotomy wires are noted.Rotator cuff repair c hanges bilaterally IMPRESSION: Cardiomegaly and mild pulmonary vascular congestion in right pleural effusion. Findings suspicious fo r congestive heart failure.
[2022-05-06] MEDS: INSULIN ASPART (NovoLOG) 100 UNIT/ML VIAL SQ SCH ×4 (07:26→20:21)
[2022-05-06] MEDS ORDERED: MD COMMUNICATION TO PHARMACY 1 EACH MISC PO PRN (07:30)
[2022-05-06] MEDS ORDERED: POTASSIUM CHLORIDE ER 20 MEQ TAB.ER PO STA (07:34)
[2022-05-06 07:44] LABS: C Reactive Protein 2.6 mg/dL (<1.0)
[2022-05-06] MEDS: ASPIRIN 325 MG TAB PO SCH (08:44)
[2022-05-06] MEDS: FERROUS SULFATE 325 MG TAB PO SCH ×2 (08:45→20:22)
[2022-05-06] MEDS: TAMSULOSIN 0.4 MG CAP.ER.24H PO SCH (08:45)
[2022-05-06] MEDS: AMIODARONE 200 MG TAB PO SCH (08:45)
[2022-05-06] MEDS: ASCORBIC ACID 500 MG TAB PO SCH (08:45)
[2022-05-06] MEDS: POTASSIUM CHLORIDE ER 20 MEQ TAB.ER PO SCH (08:45)
[2022-05-06] MEDS: guaiFENesin-DM 600/30MG 1 EACH TAB.ER.12H PO SCH ×2 (08:46→20:21)
[2022-05-06] MEDS: acetaZOLAMIDE 250 MG TAB PO SCH ×2 (08:46→20:22)
[2022-05-06] MEDS: LIDOCAINE 5% PATCH TOPICAL SCH (08:51)
[2022-05-06] MEDS: ANIDULAFUNGIN 100 MG in SODIUM CHLORIDE 0.9% 100 ML IVPB SCH (09:03)
--- NOTE | 2022-05-06 09:10 | P.PN ---
Subjective Progress Note Date: 05/06/22 Principal diagnosis: Severe mitral valve regurgitation, coronary artery disease, paroxysmal atrial fibrillation, patent foramen ovale, tricuspid regurgitation, chronic systolic congestive heart failure. Previous medical history of hypertension, hyperlipidemia, coronary artery disease with history of previous PCI, non-ST elevated myocardial infarction in November 2021, ischemic cardiomyopathy with EF 40- 45%, right internal carotid stenosis 50-79%, renal insufficiency, anemia with history of GI bleed in November 2021 S/P transfusion PRBCs, diabetes mellitus type 2, osteoarthritis, severe COPD, chronic ongoing nicotine dependence, remote history of pneumonia, chronic low back pain and hearing disorder. Nasal swab positive for MSSA preoperative POD #17 Mitral valve repair with 28 mm physio-2 ring, CABG 3 with saphenous vein grafts to first diagonal, obtuse marginal, posterior descending coronary arteries, closure of PFO, endovascular vein harvest, modified Castanon maze procedure with full left-sided lesion set and ligation of the left atrial appendage, SCOTT by anesthesia. Protamine reaction intraoperative Postoperative acute blood loss anemia, expected given his history of anemia, hemodilution and cardiopulmonary bypass Acute on chronic kidney failure, likely from hypotension from intraoperative protamine reaction Elevated transaminases, likely from hypotension from intraoperative protamine reaction Left pleural effusion, status post left-sided thoracentesis with removal of [address] Aguilar on 04/30/22 and again on 05/04/22 for 550 mL fluid Leukocytosis, afebrile, CRP and pro-calcitonin trending down, sputum culture negative, no pneumonia, no UTI, blood culture preliminary negative, likely due to sacral stage II ulcer The patient was seen and examined this morning with Dr. Cortez sitting up in a recliner in the intensive care unit in no acute distress. Currently in sinus rhythm, hemodynamically stable. Currently on 3 L nasal cannula with oxygen saturation in the mid 90s, able to achieve 6829-5251 mL on his incentive spirometer. States pain is controlled on current medication regimen, pain is generally with coughing. Sacral decubitus ulcer stage II-III present due to lack of mobility. Labs and chest x-ray reviewed. Received 1 unit packed red blood cells yesterday, hemoglobin 6.2 this morning, will receive another unit PRBCs and Eliquis discontinued. Patient had bowel movement yesterday with no evidence of blood per nursing. Mooney discontinued yesterday, patient has been able to void clear yellow urine without difficulty until this morning when he had hematuria with clots present. WBC continues to elevate despite negative cultures. Daptomycin added and statin stopped by Dr. Chen. Patient has ambulated in the hallway with assistance. Objective - Vital Signs Vital signs: Vital Signs Temp 98.4 F 05/06/22 04:00 Pulse 68 05/06/22 07:04 Resp 12 05/06/22 07:00 BP 93/43 05/06/22 07:00 Pulse Ox 99 05/06/22 07:00 FiO2 100 04/22/22 16:00 Intake & Output 05/05/22 05/06/22 05/06/22 18:59 06:59 18:59 Intake Total 1135 Output Total 1836 950 0 Balance -701 -950 0 Weight 90.5 kg Intake: IV 5 0.9 5 Intake, IV Titration 100 Amount Anidulafungin 100 mg In 100 Sodium Chloride 0.9% 100 ml @ 84 mls/hr IVPB DAILY [facility] Rx#:[id number] Oral 720 Blood Product 310 Rc As-1 Unit 310 [id number] Output: Urine 1825 950 0 Post Void Residual 11 Other: Voiding Method Urinal Urinal # Bowel Movements 1 ABP, PAP, CO, CI - Last Documented Arterial Blood Pressure 137/47 Pulmonary Artery Pressure 67/18 Cardiac Output 5.8 Cardiac Index 2.8 - Exam CONSTITUTIONAL: Appears mostly comfortable, cooperative, very hard of hearing RESPIRATORY: Lungs sounds diminished bilaterally. Respirations even, nonlabored. Currently on 3 L high flow nasal cannula with oxygen saturation 94%. Able to achieve 3330-1267 mL on incentive spirometry. Strong nonproductive cough. CARDIOVASCULAR: S1, S2 present. Regular rate and rhythm, sinus rhythm on telemetry. Sternum stable. Palpable peripheral pulses bilaterally. Bilateral lower extremity edema present, less than yesterday. No calf pain or tenderness noted. Heart hugger in place. Antiembolism stockings, SCDs present. GASTROINTESTINAL: Abdomen soft, nontender, nondistended. Active bowel sounds present 4 quadrants. Tolerating diet. Positive bowel movement 05/05 GENITOURINARY: Mooney discontinued, voiding 150-360 mL at a time, was clear, yellow yesterday, hematuria this am. Output 2775 mL in the last 24 hours INTEGUMENTARY: Skin is warm and dry. Anterior chest incision well approximated. Bilateral EVH site well approximated. Stage II-III present to sacrum NEUROLOGIC: Cranial nerves II through XII intact MUSKULOSKELETAL: Able to move all extremities, strength equal bilaterally PSYCHIATRIC: Oriented to person place and time - Allied health notes Allied health notes reviewed: nursing - Labs CBC & Chem 7: 05/06/22 06:07 05/06/22 06:07 Labs: Abnormal Lab Results - Last 24 Hours (Table) 05/04/22 05/05/22 05/05/22 Range/Units 11:33 09:34 11:36 WBC (3.8-10.6) k/uL RBC (4.30-5.90) m/uL Hgb (13.0-17.5) gm/dL Hct (39.0-53.0) % MCHC (31.0-37.0) g/dL RDW (11.5-15.5) % Sodium (137-145) mmol/L BUN (9-20) mg/dL Creatinine (0.66-1.25) mg/dL Glucose (74-99) mg/dL POC Glucose (mg/dL) 261 H 249 H (70-110) mg/dL Calcium (8.4-10.2) mg/dL ALT (4-49) U/L C-Reactive Protein (<1.0) mg/dL Total Protein (6.3-8.2) g/dL Albumin (3.5-5.0) g/dL Crossmatch See Detail 05/05/22 05/05/22 05/06/22 Range/Units 16:57 20:18 06:07 WBC 19.7 H (3.8-10.6) k/uL RBC 2.14 L (4.30-5.90) m/uL Hgb 6.2 L* (13.0-17.5) gm/dL Hct 20.4 L (39.0-53.0) % MCHC 30.2 L (31.0-37.0) g/dL RDW 17.8 H (11.5-15.5) % Sodium (137-145) mmol/L BUN (9-20) mg/dL Creatinine (0.66-1.25) mg/dL Glucose (74-99) mg/dL POC Glucose (mg/dL) 148 H 239 H (70-110) mg/dL Calcium (8.4-10.2) mg/dL ALT (4-49) U/L C-Reactive Protein (<1.0) mg/dL Total Protein (6.3-8.2) g/dL Albumin (3.5-5.0) g/dL Crossmatch 05/06/22 05/06/22 Range/Units 06:07 06:52 WBC (3.8-10.6) k/uL RBC (4.30-5.90) m/uL Hgb (13.0-17.5) gm/dL Hct (39.0-53.0) % MCHC (31.0-37.0) g/dL RDW (11.5-15.5) % Sodium 134 L (137-145) mmol/L BUN 83 H (9-20) mg/dL Creatinine 1.50 H (0.66-1.25) mg/dL Glucose 163 H (74-99) mg/dL POC Glucose (mg/dL) 203 H (70-110) mg/dL Calcium 8.2 L (8.4-10.2) mg/dL ALT 63 H (4-49) U/L C-Reactive Protein 2.6 H (<1.0) mg/dL Total Protein 4.9 L (6.3-8.2) g/dL Albumin 2.7 L (3.5-5.0) g/dL Crossmatch Microbiology - Last 24 Hours (Table) 05/03/22 05:54 Blood Culture - Preliminary Blood No Growth after 72 hours 04/29/22 09:27 Blood Culture - Final Blood No Growth after 144 hours 04/29/22 09:22 Blood Culture - Final Blood No Growth after 144 hours 04/30/22 16:45 Gram Stain - Final Pleural Fluid Body Fluid Culture - Final - Imaging and Cardiology Chest x-ray: report reviewed, image reviewed Assessment and Plan Assessment: 1. Severe mitral valve regurgitation, status post mitral valve repair 2. Coronary artery disease, previous PCI, previous non-STEMI, status post CABG 3 3. History of paroxysmal atrial fibrillation, previous cardioversion, on [facility] outpatient for anticoagulation, status post modified Castanon maze and ligation of left atrial appendage 4. Patent foramen ovale, status post closure 5. Tricuspid regurgitation 6. Chronic systolic congestive heart failure, ischemic cardiomyopathy with EF 40-45% 7. History of hypertension 8. History hyperlipidemia, treated, cholesterol 150, LDL 72 9. Right internal carotid stenosis 50-79% 10. Anemia with history of GI bleed in November 2021 S/P transfusion PRBCs 11. Acute on chronic renal failure, baseline creatinine 1.28-1.6 12. Diabetes mellitus type 2, preoperative hemoglobin A1c 5.6% 13. Osteoarthritis 14. Severe COPD, preoperative FEV1 41% of predicted 15. Chronic ongoing nicotine dependence 16. Remote history of pneumonia 17. Chronic low back pain, hearing disorder 18. Nasal swab positive for MSSA preoperative 19. Postoperative acute blood loss anemia, expected 20. Elevated transaminases 21. Protamine reaction intraoperative 22. Leukocytosis, afebrile, CRP and pro-calcitonin trending down, sputum culture negative, no pneumonia, no UTI, likely due to sacral stage II ulcer 23. Medical debility, generalized weakness 24. Stage II decubitus to his buttocks 25. Small left-sided pleural effusion, status post left-sided thoracentesis on 04/30/2022 26. Urinary retention possibly secondary to constipation Plan: 1. Continue full dose aspirin, beta siomara, low dose Imdur. Statin discontinued by Dr. Chen 2. Continue amiodarone. Eliquis discontinued 3. Continue bumex 2 mg IV daily. Diamox continued by Dr. Bynum 4. Wean O2 as tolerated. Encourage incentive spirometry 10 times every hour while awake. Bronchodilators per pulmonology 5. Increase activity, ambulate as tolerated. PT/OT/cardiac rehab following 6. Will monitor daily labs and chest x-rays. Electrolyte replacement per andres col. Will transfuse 1 unit packed red blood cells today 7. GI/DVT prophylaxis. 8. Insulin management per primary care service. Patient is a diabetic with a preoperative hemoglobin A1c of 5.6% on multiple oral medications, needs tighter blood sugar control as he is still having blood sugars in the 200s 9. Pain control with current medication regimen. Avoid narcotics 10. Continue Flomax. Urology reconsulted due to hematuria, patient NPO after midnight in case of intervention by urology 11. Strict accurate intake and output. Daily weights. 12. Dr. Chen consulted due to leukocytosis. Continue Eraxis, daptomycin added . UA negative, sputum culture negative, blood cultures preliminary negative. CRP, pro-calcitonin trending down. Remains afebrile 13. Smoking cessation counseling and education provided to patient and family 14. Medihoney ordered for sacral decubitus per Dr. Chen, patient may follow in the wound care center after discharge with recommendations for possible wound VAC 15. Plan is for discharge to inpatient rehab due to medical debility in need for daily physician input regarding activity level, lab work and medication adjustments 16. More recommendations to follow based on patient's clinical course.
[2022-05-06] MEDS: BUMETANIDE 0.25 MG/ML 10 ML VIAL IV SCH (10:28)
[2022-05-06] MEDS: NON FORMULARY DRUG SQ SCH (10:28)
[2022-05-06] MEDS: METOPROLOL TARTRATE 25 MG TAB PO SCH ×2 (10:28→20:22)
[2022-05-06 11:22] LABS: Glucose,Whole Blood 265 mg/dL (70-110)
--- NOTE | 2022-05-06 13:23 | PN ---
PROGRESS NOTE SUBJECTIVE: Derek is a 72-year-old gentleman with complex and prolonged postop recovery from extensive cardiac surgery including bypass, mitral valve repair, closure of the PFO, and Maze procedure. Today is postop day #17. Clinically, he is feeling better. Denies any chest pain or difficulty in breathing, but his hemoglobin had dropped to 6.2, and continues to have significant intravascular volume depletion. OBJECTIVE: VITAL SIGNS: Heart rate is 68 beats per minute, blood pressure is 93/40, respiratory rate is 12. CHEST: Reveals diminished air entry bilaterally. HEART: Reveals first and second heart sounds. No gallop. Has a systolic murmur at the apex. ABDOMEN: Soft. EXTREMITIES: Reveals bilateral 1+ pitting edema. MEDICATIONS: The patient is currently on: 1. Imdur daily. 2. Cordarone 200 mg daily. 3. Diamox. 4. Bumex. 5. Lopressor. 6. K-Dur. ASSESSMENT: 1. Coronary artery disease, status post coronary artery bypass graft; mitral regurgitation, status post mitral valve repair. 2. Pleural effusion, status post thoracentesis. 3. Anemia. PLAN: The patient will undergo blood transfusion today. Continue the Bumex. Anemia could be due to hemolysis due to continued blood loss. MMODL / IJN: [id number] /
--- NOTE | 2022-05-06 13:35 | P.PN ---
Subjective Progress Note Date: 05/06/22 Principal diagnosis: Postoperative day # 17 Mitral valve repair with 28 mm physio-2 ring, CABG 3 with saphenous vein grafts to first diagonal, obtuse marginal, posterior descending coronary arteries, closure of PFO, endovascular vein harvest, modified Castanon maze procedure with full left-sided lesion set and ligation of the left atrial appendage, SCOTT by anesthesia. Protamine reaction intraoperative Reevaluated today on 04/30/22, patient is sitting up in a bedside chair, he is awake alert oriented 3, he does complain of shortness of breath, remind you that the patient does have history of severe underlying COPD, FEV1 is normally just over 1 L, 42% of the predicted value. Patient is on bronchodilators for his underlying COPD. Chest x-ray is showing small pleural effusions, not large enough to consider thoracentesis. Remains on diuretics in the form of Bumex. Patient is also on metoprolol 25 twice a day and on amiodarone. Patient does not seem to be in distress, he is on 3 L nasal cannula. WBC count today 17.8 hemoglobin is 7.1, electrolytes are normal BUN is 84 creatinine 1.83, baseline is 1.43. The patient is seen today 05/01/2022 in follow-up in the intensive care unit. He is currently sitting up in a chair at the bedside. Awake and alert in no acute distress. Feeling a bit stronger today compared to yesterday. He is maintaining good O2 saturations in the mid 90s on 2 L/m per nasal cannula. He is afebrile. Hemodynamically stable. He did undergo a left-sided thoracentesis yesterday with approximately 850 mL of slightly serosanguineous fluid removed. This was transudate with the protein of 1.8 and an LDH 175. Chest x-ray shows improved aeration. No pneumothorax post procedure. He is continuing to work with the incentive spirometer. Follow-up limited echocardiogram revealed that ejection fraction of 45-50% with atypical septal motion. Evidence of mitral valve repair. Moderate aortic stenosis with a mean gradient 20 mmHg. No e vidence of pericardial effusion. He is status post 2 units of packed red blood cells, 2 units of fresh frozen plasma and 1 unit of platelets this admission. White count 15.3. Hemoglobin 7.2. Platelets 305. Sodium 131. Potassium 4.0. Bicarb 32. BUN 79. Creatinine 1.57. Glucose 143. AST 43. ALT 131. Albumin 3.2. He remains on bronchodilators, antibiotics in the form of cefepime. Hepar in for DVT prophylaxis. Continued on amiodarone. Currently in a regular rhythm. Reevaluated today on 05/02/2022, patient is doing great, much better today compared to the last few days, breathing easier, does not seem to be in any distress. Chest x-ray shows a small tiny pleural effusions not large enough to consider repeat thoracentesis. WBC count is 16.9 hemoglobin is 7.4. Electrodes are normal BUN is 77 creatinine 1.54. Reevaluated today on 05/03/22, patient is basically about the same, today he seems to be a bit more short of breath but he was yesterday. Chest x-ray is basically about the same, patient remains on diuretics, remains on bronchodilators, remains on 3 L nasal cannula. No major change overall in the last 24 hours except he seems to be more symptomatic today. Patient was noted to have a bit of leukocytosis today, WBC count is 17.0 hemoglobin is 7.5, but no clear-cut evidence of infection. Basic metabolic profile is normal. Urinalysis is unremarkable. Patient was seen by infectious disease on consultation, he is now on empiric cefepime although no clear-cut evidence of infection except the patient does have leukocytosis Reevaluated today on 05/04/22, patient remains in the ICU, continues to have good days and bad days, today he seems to be a bit more short of breath, chest x-ray showed mild pulmonary vascular congestion, and bilateral small pleural ef fusions. Ultrasound of the chest from yesterday showed at 10 cm pocket in the left pleural space, hence I went ahead and recommended thoracentesis, I was able to drain 550 mL of serosanguineous fluid from the left pleural space. No complications post procedure. The procedure was well-tolerated. In the meantime the patient remains on diuretics, bronchodilators, and he is also on antibiotics empirically because of leukocytosis. Hemoglobin is down today to 6.1, and the patient is scheduled to have a unit of packed RBCs, I believe this will significantly improve his shortness of breath. Electrolytes are normal his BUN is 75 creatinine 1.75 Reevaluated today on 05/05/22, remains in the ICU, remains marginal at best. Today the patient is feeling a bit better, and he would likely feel even better once he gets another unit of packed RBCs continues to have low hemoglobin. Chest x-ray showed minimal atelectasis, no clear-cut evidence of congestive heart failure. Patient is sitting at a bedside chair, he is on 2 L nasal cannula, able to achieve about 1000 mL via incentive spirometry. No pain, no discomfort, continues to have a sacral decubitus ulcer stage II3. Hemoglobin today is 6.7, was 6.1 yesterday, and he will receive another unit of packed RBCs today. Reevaluated today on 05/06/22, remains in the ICU, patient is doing well, requiring another unit of packed RBCs today, patient is having hematuria, and that's going to be addressed by urology which was consulted. Pulmonary-arboleda is about the same, remains on 2 L nasal cannula, chest x-ray is showing evidence of interstitial edema and small tiny left-sided and right-sided pleural effusions, not large enough to consider thoracentesis at this point yet. He remained generally weak and short of breath with any activity. Hemoglobin today is 6.2, WBC count is 19.7, patient was placed on daptomycin and Eraxis empirically by infectious disease on the case. All cultures have been nondiagnostic so far including blood pleural effusion cultures and sputum cultures. Patient does have a sacral decubitus ulcer that may be causing his leukocytosis Objective - Vital Signs Vital signs: Vital Signs Temp 98.5 F 05/06/22 11:14 Pulse 70 05/06/22 11:14 Resp 20 05/06/22 11:14 BP 121/73 05/06/22 11:14 Pulse Ox 97 05/06/22 11:00 FiO2 100 04/22/22 16:00 Intake & Output 05/05/22 05/06/22 05/06/22 18:59 06:59 18:59 Intake Total 1135 310 Output Total 1264 666 935 Balance -810 -234 -512 Weight 90.5 kg Intake: IV 5 0.9 5 Intake, IV Titration 100 Amount Anidulafungin 100 mg In 100 Sodium Chloride 0.9% 100 ml @ 84 mls/hr IVPB DAILY [facility] Rx#:[id number] Oral 720 Blood Product 310 310 As-1 Unit 310 [id number] As-1 Unit 310 [id number] Output: Urine 1825 950 725 Post Void Residual 11 Other: Voiding Method Urinal Urinal # Bowel Movements 1 ABP, PAP, CO, CI - Last Documented Arterial Blood Pressure 137/47 Pulmonary Artery Pressure 67/18 Cardiac Output 5.8 Cardiac Index 2.8 - Exam Physical Exam: Revealed a 72-year-old white male in no distress, looks pale, he is on 2 L nasal cannula Head: Atraumatic, normocephalic. HEENT:[Neck is supple.] [No neck masses.] [No thyromegaly.] [No JVD.] Chest: Diminished breath sounds at the bases with crackles at the bases no rhonchi and no wheezes Cardiac Exam: Irregular irregular rhythm. [Normal S1 and S2, no S3 gallop, no murmur.] Abdomen: [Soft, nontender, no megaly, no rebound, no guarding, normal bowel sounds.] Extremities: [No clubbing, 1+ bipedal edema, no cyanosis.] Neurological Exam: [No focal neurologic deficit.] Alert oriented 3. Psychiatric: Normal mood affect and normal mental status examination. Skin: No rashes. Patient has a sacral decubitus ulcer 23 - Labs CBC & Chem 7: 05/06/22 06:07 05/06/22 06:07 Labs: Abnormal Lab Results - Last 24 Hours (Table) 05/04/22 05/05/22 05/05/22 Range/Units 11:33 16:57 20:18 WBC (3.8-10.6) k/uL RBC (4.30-5.90) m/uL Hgb (13.0-17.5) gm/dL Hct (39.0-53.0) % MCHC (31.0-37.0) g/dL RDW (11.5-15.5) % Sodium (137-145) mmol/L BUN (9-20) mg/dL Creatinine (0.66-1.25) mg/dL Glucose (74-99) mg/dL POC Glucose (mg/dL) 148 H 239 H (70-110) mg/dL Calcium (8.4-10.2) mg/dL ALT (4-49) U/L C-Reactive Protein (<1.0) mg/dL Total Protein (6.3-8.2) g/dL Albumin (3.5-5.0) g/dL Crossmatch See Detail 05/06/22 05/06/22 05/06/22 Range/Units 06:07 06:07 06:52 WBC 19.7 H (3.8-10.6) k/uL RBC 2.14 L (4.30-5.90) m/uL Hgb 6.2 L* (13.0-17.5) gm/dL Hct 20.4 L (39.0-53.0) % MCHC 30.2 L (31.0-37.0) g/dL RDW 17.8 H (11.5-15.5) % Sodium 134 L (137-145) mmol/L BUN 83 H (9-20) mg/dL Creatinine 1.50 H (0.66-1.25) mg/dL Glucose 163 H (74-99) mg/dL POC Glucose (mg/dL) 203 H (70-110) mg/dL Calcium 8.2 L (8.4-10.2) mg/dL ALT 63 H (4-49) U/L C-Reactive Protein 2.6 H (<1.0) mg/dL Total Protein 4.9 L (6.3-8.2) g/dL Albumin 2.7 L (3.5-5.0) g/dL Crossmatch 05/06/22 Range/Units 11:20 WBC (3.8-10.6) k/uL RBC (4.30-5.90) m/uL Hgb (13.0-17.5) gm/dL Hct (39.0-53.0) % MCHC (31.0-37.0) g/dL RDW (11.5-15.5) % Sodium (137-145) mmol/L BUN (9-20) mg/dL Creatinine (0.66-1.25) mg/dL Glucose (74-99) mg/dL POC Glucose (mg/dL) 265 H (70-110) mg/dL Calcium (8.4-10.2) mg/dL ALT (4-49) U/L C-Reactive Protein (<1.0) mg/dL Total Protein (6.3-8.2) g/dL Albumin (3.5-5.0) g/dL Crossmatch Microbiology - Last 24 Hours (Table) 05/03/22 05:54 Blood Culture - Preliminary Blood No Growth after 72 hours 04/29/22 09:27 Blood Culture - Final Blood No Growth after 144 hours 04/29/22 09:22 Blood Culture - Final Blood No Growth after 144 hours 04/30/22 16:45 Gram Stain - Final Pleural Fluid Body Fluid Culture - Final Assessment and Plan Assessment: Impression: 1. Severe mitral valve regurgitation, status post mitral valve repair, postoperative day # 17 2. Coronary artery disease, previous PCI, previous non-STEMI, status post CABG 3, postop day # 17 3. History of paroxysmal atrial fibrillation, previous cardioversion, on [facility] outpatient for anticoagulation, status post modified Castanon maze and ligation of left atrial appendage, postop day 17 4. Patent foramen ovale, status post closure, postop day # 17 5. Atrial fibrillation, expected outcome of surgery and the patient is back to normal sinus rhythm. The patient is currently on oral amiodarone, and metoprolol. No anticoagulations yet. 6. Chronic systolic congestive heart failure, ischemic cardiomyopathy with EF 40-45% 7. History of hypertension 8. History hyperlipidemia, treated, cholesterol 150, LDL 72 9. Right internal carotid stenosis 50-79% 10. Anemia with history of GI bleed in November 2021 S/P transfusion PRBCs 11. Acute on chronic renal failure, creatinine is at 1.9 12. Diabetes mellitus type 2, preoperative hemoglobin A1c 5.6% currently Levemir insulin 8 units along with a sliding scale coverage 13. Osteoarthritis 14. Severe COPD, preoperative FEV1 41% of predicted 15. Chronic ongoing nicotine dependence 16. Remote history of pneumonia 17. Chronic low back pain, hearing disorder 18. Nasal swab positive for MSSA preoperative 19. Postoperative acute blood loss anemia, expected 20. Elevated transaminases, most likely due to shock liver and the significant elevation of the ALT and AST which are being monitored, and the level is also improving and there is a decline and LFTs 21. Protamine reaction intraoperative 22 decubitus ulcer stage 2 23, small left-sided pleural effusion along with some left basilar atelectasis, patient is status post repeat thoracentesis on 05/04/22, 550 mL of serosanguineous fluid was removed from the left. Previous thoracentesis was done a few days ago and I was able to drain 850 mL of serosanguineous fluid from the left pleural space also hence patient is status post left-sided thoracen tesis 2 24 chronic right lower lobe atelectasis and chronically abnormal chest x-ray in the right lower lobe area 24 acute hematuria, to be addressed by urology, may have to address his anticoagulation therapy all over again. And may replace some of that on hold Recommendation: Patient to receive another unit of packed RBCs today for low hemoglobin of 6.2, he is also to receive Lasix. Continue aspirin and Plavix beta blockers and statins. Hold eliquis for now because of hematuria. Continue diuretics. Continue antibiotics as per infectious disease on the case. Continue amiodarone. Continue daily weights. Ambulate as much as possible and encouraged to ambulate Continue oxygen and titrate accordingly Continue bronchodilators and diuretics Continue incentive spirometry Continue GI and DVT prophylaxis Continue metoprolol and amiodarone. Possible rehab placement We'll continue to follow Time with Patient: Less than 30
--- NOTE | 2022-05-06 13:38 | P.PN ---
Progress Note - Text Progress Note Date: 05/06/22 Patient is a pleasant 72-year-old male came in the for elective mitral valve repair, CABG x 3 vessel, maze procedure, PFO closure. Patient is extubated sitting in the chair patient still has a Eckerty-Varghese catheter, CVP of around 12, cardiac index 3.1 patient creatinine went up to 1.70 resulting elevated potassium of 5.5 patient is off pressor support, off nitro drip patient still has 2 mediastinal and one left-sided chest tube. 04/21/2022 Patient is evaluated in ICU today, sitting up in chair. He is postoperative day #2 for elective mitral valve repair, hematocrit bypass grafting maze procedure and PFO closure. He is on BiPAP with fio2 of 40% Continues with mediastinal/left pleural chest tubes. Continue with indwelling catheter. Received dose of IV albumin yesterday afternoon. Chest xray today showing ongoing mild pulmonary vascular congestion, increasing patchy bibasilar opacities, atelectasis vs. pulmonary edema. Currently on lasix gtt at 10mls/hr, continues on dopamine gtt at 3.68 mls/hr. Continues on insulin gtt and blood glucose remains in the 140 to 130s. Labs today showing sodium 132, potassium 6.1 improved to 5.4, BUN 41, creatinine 2.53, elevated liver enzymes. Hgb 7.3. 04/22/2022 Patient continues to be monitored closely in intensive care unit, he is postoperative day #3 for elective mitral valve repair, maze procedure, PFO closure. Managed by primary team. He had limited echocardiogram completed showing EF 45 to 50%, mild to moderate MR, moderate pulmonary hypertension with moderate TR. Chest xray today shows slight improvement in pulmonary vascular congestion. Maintained on lasix gtt at 10mls/hr, dopamine gtt, Continues with 2 mediastinal chest tubes. Continues with indwelling catheter. Continues with right IJ swan/cordis, right radial arterial line. He has been weaned off BiPAP currently on high flow cannula at 15L. He has been tolerating some diet. Continues on insulin gtt which will continue until his diet stabilizes. Current glucose in the 140s. Creatinine today 3.14. April 23: I assumed care of patient today from [facility]. ICU. In a recliner. Tired. Little oral intake. Nasal cannula. Drips include IV dopamine and Lasix. Some shortness of breath. Mooney catheter. 04/24/2022: ICU. Up. 4 L nasal cannula. Did eat better. Edema present. On the Lasix drip 5 mg an hour. Some improvement in creatinine. 04/25/2022: ICU. Up in a recliner. Eating better. at the bedside. Edema present. Off Lasix drip. Feeling better. Creatinine coming down. LFTs improving. Home dose of Victoza was started 04/26/2022: ICU. Up in a recliner. 4 L nasal cannula. Eating about 50%. Accu-Cheks noted. 04/27/2022: ICU: Patient went into atrial fibrillation overnight. Put on oral amiodarone and Lopressor per CTS.. Some worsening of shortness of breath. Placed on IV Lasix. Eating some. Up in a recliner. 04/28/2022: ICU. Patient received Lopressor today for the A. fib. Patient went down into sinus rhythm. Blood pressure also dropped her was 70 systolic. Oxygen increased to 4 L. Short of breath. Patient did walk 10-12 steps up to the door. Eating fair. Lower extremity edema edema present. Up in a chair. Tired. 04/29/2022: ICU. Short of breath. 3 L nasal cannula. Eating fair. Edema pre sent. Getting Bumex. Getting IV albumin and IV calcium. Using incentive spirometry. Up in a chair. Discussed with at the bedside. Increasing white count, infiltrated urine chest x-ray suggestive of pneumonia. Started on IV cefepime 04/30/2022: ICU. Remains short of breath. 3 L nasal cannula. Started on IV cefepime yesterday.. Oral intake fair. Edema present. Remains on Bumex. Fo sher catheter. Discussed with patient and at the bedside. Discussed with Dr. Cortez from cardiothoracic surgery. 05/01/2022: ICU. Zaroxolyn was added. Good diuresis. Breathing better. On IV cefepime. Left paracentesis is done. 850 mL removed. Oral intake fair. Breathing a bit better. Telemetry shows sinus rhythm. 2 L nasal cannula. at the bedside. Will DC Actos. Even though smaller dose. Given CHF renal failure. Increase Lantus to 12 units. 05/02/2022: ICU. Over 3 is a negative fluid balance. Last 24 hours. Some improvement in breathing. Oral intake fair. Remains in atrial fibrillation controlled. 2 L nasal cannula. Add Diamox. 4 metabolic alkalosis 05/03/2022: ICU. This morning patient became short of breath. Dr. Chen from [place] consulted for sacral decub. Remains on IV cefepime. Oral intake fair. Had a BM. On IV Bumex. I discussed with Dr. Aguilar from pulmonary. Patient is known to him. Advanced COPD. His right lung changes are chronic. Has had previous CAT scans. He may have had a located effusion. 05/04/2022: ICU. Breathing a bit better. Hemoglobin dropped to 6.1. Awaiting transfusion. Tolerating diet. On IV cefepime. Patient started on IV eraxis by Dr. Prescott from [place]. 05 May 2022: ICU. Patient received a unit of blood yesterday evening. Getting another unit of blood today. Breathing better. Remains on IV Bumex. IV cefepime discontinued. Remains on IV Eraxis. Oral intake fair. Up in a chair. at the bedside. Increase Levemir to 20 units at night. 05/06/2022: ICU. Patient received a 3rd unit blood this morning. Breathing better. Had some blood in his urine. On 2 L is cannula. Sitting up in a chair, eating better. Some cough with brownish sputum. Active Medications Acetaminophen (Acetaminophen Tab 325 Mg Tab) 650 mg PO Q6HR PRN PRN Reason: Fever and/ or Pain Last Admin: 05/05/22 10:26 Dose: 650 mg Acetazolamide (Acetazolamide 250 Mg Tab) 250 mg PO BID [facility] Last Admin: 05/06/22 08:46 Dose: 250 mg Albuterol/Ipratropium (Ipratropium-Albuterol 3 Ml Neb) 3 ml INHALATION RT-Q2H PRN PRN Reason: Shortness Of Breath Or Wheezing Last Admin: 04/29/22 23:30 Dose: 3 ml Albuterol/Ipratropium (Ipratropium-Albuterol 3 Ml Neb) 3 ml INHALATION RT-QID [facility] Last Admin: 05/06/22 11:06 Dose: 3 ml Amiodarone HCl (Amiodarone 200 Mg Tab) 200 mg PO DAILY [facility] Stop: 05/11/22 10:00 Last Admin: 05/06/22 08:45 Dose: 200 mg Ascorbic Acid (Ascorbic Acid 500 Mg Tab) 500 mg PO DAILY [facility] Last Admin: 05/06/22 08:45 Dose: 500 mg Aspirin (Aspirin 325 Mg Tab) 325 mg PO DAILY [facility] Last Admin: 05/06/22 08:44 Dose: 325 mg Benzocaine/Menthol (Benzocaine/Menthol Lozeng 1 Each Lozenge) 1 each MUCOUS MEM Q2HR PRN PRN Reason: Sore Throat Last Admin: 05/02/22 15:04 Dose: 1 each Bisacodyl (Bisacodyl 10 Mg Supp) 10 mg RECTAL DAILY PRN PRN Reason: Constipation Last Admin: 05/02/22 08:17 Dose: 10 mg Budesonide/Formoterol Fumarate (Symbicort 160-4.5 Mcg Inhaler) 2 puff INHALATION RT-BID [facility] Last Admin: 05/06/22 06:53 Dose: 2 puff Bumetanide (Bumetanide 0.25 Mg/Ml 10 Ml Vial) 2 mg IV DAILY [facility] Last Admin: 05/06/22 10:28 Dose: 2 mg Dextrose/Water (Dextrose 50% Syringe 50 Ml) 25 ml IVP PER PROTOCOL PRN; Protocol PRN Reason: Hypoglycemia Dextrose/Water (Dextrose 50% Syringe 50 Ml) 50 ml IVP PER PROTOCOL PRN; Protocol PRN Reason: Hypoglycemia Dextrose/Water (Dextrose 50% Syringe 50 Ml) 25 ml IVP PER PROTOCOL PRN; Protocol PRN Reason: Hypoglycemia Dextrose/Water (Dextrose 50% Syringe 50 Ml) 50 ml IVP PER PROTOCOL PRN; Protocol PRN Reason: Hypoglycemia Ferrous Sulfate (Ferrous Sulfate 325 Mg Tab) 325 mg PO BID [facility] Last Admin: 05/06/22 08:45 Dose: 325 mg Guaifenesin/Dextromethorphan (Guaifenesin-Dm 600/30mg 1 Each Tab.Er.12h) 1 each PO Q12HR [facility] Last Admin: 05/06/22 08:46 Dose: 1 each Calcium Gluconate/Sodium (Chloride 2 gm/ IV Solution) 100 mls @ 100 mls/hr IVPB ONCE PRN PRN Reason: Ionized Calcium less than 4.4 Stop: 05/19/22 23:00 Daptomycin 360 mg/ Sodium (Chloride) 50 mls @ 100 mls/hr IVPB Q24H [facility]; Protocol Last Admin: 05/06/22 01:29 Dose: 100 mls/hr Piperacillin Sod/Tazobactam (Sod 3.375 gm/ Sodium Chloride) 100 mls @ 25 mls/hr IVPB Q8HR [facility]; Protocol Insulin Aspart (Insulin Aspart (Novolog) 100 Unit/Ml Vial) 0 unit SQ ACHS [facility]; Protocol Last Admin: 05/06/22 12:01 Dose: 6 unit Insulin Detemir (Insulin Detemir (Levemir) 100 Unit/Ml Syr) 20 unit SQ HS [facility] Last Admin: 05/05/22 20:28 Dose: 20 unit Isosorbide Mononitrate (Isosorbide Mononitrate Er 15 Mg Tab) 15 mg PO DAILY@1200 [facility] Last Admin: 05/05/22 13:20 Dose: Not Given Lidocaine (Lidocaine 5% Patch) 2 patch TOPICAL DAILY [facility]; Protocol Last Admin: 05/06/22 08:51 Dose: 2 patch Magnesium Hydroxide (Magnesium Hydroxide 2,400 Mg/10 Ml Cup) 2,400 mg PO BID PRN PRN Reason: Constipation Last Admin: 04/22/22 07:08 Dose: 2,400 mg Metoprolol Tartrate (Metoprolol Tartrate 25 Mg Tab) 25 mg PO BID [facility] Last Admin: 05/06/22 10:28 Dose: 25 mg Miscellaneous Information (Potassium Replacement Protocol 1 Each Misc) 1 each MISCELLANE DAILY PRN; Protocol PRN Reason: Per Protocol Miscellaneous Information (Magnesium Replacement Protocol 1 Each Misc) 1 each MISCELLANE DAILY PRN; Protocol PRN Reason: Per Protocol Non-Formulary Medication (Non Formulary Drug) 1 each SQ DAILY [facility] Last Admin: 05/06/22 10:28 Dose: 1 each Ondansetron HCl (Ondansetron 4 Mg/2 Ml Vial) 4 mg IVP Q6HR PRN PRN Reason: Nausea And Vomiting Last Admin: 04/27/22 09:22 Dose: 4 mg Potassium Chloride (Potassium Chloride Er 20 Meq Tab.Er) 20 meq PO DAILY [facility] Last Admin: 05/06/22 08:45 Dose: 20 meq Senna/Docusate Sodium (Sennosides-Docusate Sodium 1 Each Tab) 2 each PO HS [facility] Last Admin: 05/05/22 20:30 Dose: 2 each Sodium Chloride (Sodium Chloride 0.9% Flush 10 Ml Syringe) 10 ml IV BID [facility] Last Admin: 05/06/22 08:47 Dose: 10 ml Tamsulosin HCl (Tamsulosin 0.4 Mg Cap.Er.24h) 0.4 mg PO PC-BRKFST [facility] Last Admin: 05/06/22 08:45 Dose: 0.4 mg On examination: VITAL SIGNS: Afebrile, 70, 20, 121/73, 97% on 2 L GENERAL APPEARANCE: Up in chair, breathing better HEENT: Normal external appearance of nose and ear. Oral cavity normal EYES: Pupils equal. Conjunctiva normal. NECK: JVD not raised. Mass not palpable. RESPIRATORY: Respiratory effort increased. Lungs diminished breath sounds. CARDIOVASCULAR: First and second sounds normal. Edema present ABDOMEN: Soft. Liver and spleen not palpable. No tenderness. No mass palpable. Mooney catheter PSYCHIATRY: AO 3, mood and affect normal INVESTIGATIONS, reviewed in the clinical context: 05/06/2022: WBC 19.7 hemoglobin 6.2 platelets 322 potassium 3.8. 83 creatinine 1.50 05/05/2022: WBC 18.1 hemoglobin 6.7 potassium 4. 85 creatinine 1.46 05/04/2022: WBC 16 hemoglobin 6.1 platelets 362 potassium 3.7 BUN 75 creatinine 1.75 Limited 2-D echocardiogram [May 01]: EF 45%. [id number] MR, moderate aortic stenosis 05/01/2022: WBC 15.3 hemoglobin 7.2 platelets 305 potassium 4. [address] chest [April 29]: Moderate partial obliterate right pleural effusion, left pleural effusion, cardiomegaly. 04/24/2022: WBC 9.2 hemoglobin 7.1 platelets 122 potassium 5.1 BUN 77 creatinine 2.97 AST 1270 ALT 1038 WBC 8.2 hemoglobin 7.5 platelets 111 sodium 135 progression 6 BUN 67 creatinine 3.43 AST 3595 ALT 1512 Limited 2-D echocardiogram: EF 45-50%. Inferior wall hypokinesis. Moderate MR. Moderate pulmonary hypertension with moderate TR. Assessment and plan -Acute on chronic congestive heart exacerbation from systolic/diastolic dysfunction EF 45-50%:, precipitated by A. fib: Slow to respond IV Bumex 2 mg daily. -pneumonia, short of breath, infiltrate on chest x-ray, increasing white count and procalcitonin: Better IV cefepime-completed -Acute hypoxic respiratory failure from pulmonary edema/pneumonia: 2 L nasal cannula -Diabetes Mellitus type 2 with hyperglycemia, Victoza , Actos-discontinue. Increase Levemir 24 units daily at bedtime -Paroxysmal atrial fibrillation status post modified Castanon-Maze procedure,: With rapid ventricular rate: Now - sinus rhythm amiodarone ,Lopressor. -acute renal failure on chronic kidney disease stage II with renal failure is probably prerenal azotemia, cardiorenal syndrome.: Creatinine peaked at 3.43. Creatinine 1.46 -hyperkalemia secondary to acute renal failure: Corrected Received Lokelma. Renal diet -Acute hepatitis, likely ischemic: Improving Follow closely. GI services not available in the hospital. Hold any hepatic offensive medications. Follow LFTs patient as patient started back on amiodarone -Acute COPD exacerbation, in a smoker DuoNeb. Symbicort -Hyperlipidemia Lipitor -Sacral decubitus ulcer: Stage II Follow with/Dr. Chen -Metabolic alkalosis from diuresis Diamox - coronary artery disease with previous PCI Aspirin, Lasix, Imdur, Lopressor -Acute postprocedure blood loss anemia as expected from surgery, also hospital- acquired anemia from blood draws 5 units of PRBC, follow CBC. -Chronic nicotine dependence - post mitral valve failure, status post CABG, status post PFO closure: Currently [id number] MR -Moderate aortic stenosis -Moderate secondary pulmonary hypertension Oxygen. IV Bumex. iv eraxis. Received 5th units of blood today. Follow with multiple consultants. Increase Levemir to 24 units at night.
[2022-05-06] MEDS: ISOSORBIDE MONONITRATE ER 15 MG TAB PO SCH (14:47)
[2022-05-06] MEDS: bisacodyL 10 MG SUPP RECTAL PRN (15:09)
[2022-05-06 15:17] LABS: Appearance,Urine Clear (Clear); Bacteria,Urine Rare /hpf; Bilirubin,Urine Negative (Negative); Blood,Urine Moderate (Negative); Color,Urine Light Yellow; Glucose,Urine (UA) Negative (Negative); Ketones,Urine Negative (Negative); Leukocyte Esterase,Urine Negative (Negative); Mucus,Urine Rare /hpf; Nitrite,Urine Negative (Negative); PH, Urine 5.5 (5.0-8.0); Protein,Urine Trace (Negative); RBC,Urine 17 /hpf (0-5); Specific Gravity,Urine 1.011 (1.001-1.035); Urobilinogen,Urine <2.0 mg/dL (<2.0); WBC,Urine 2 /hpf (0-5)
[2022-05-06 16:05] LABS: Anisocytosis Slight; Basophils # (A) 0.1 k/uL (0-0.2); Basophils % (A) 1 %; Eosinophils # (A) 0.5 k/uL (0-0.7); Eosinophils % (A) 2 %; Hypochromasia Marked; Lymphocytes # (A) 0.8 k/uL (1.0-4.8); Lymphocytes % (A) 4 %; MCHC 30.4 g/dL (31.0-37.0); Mean Platelet Volume 8.7; Monocytes # (A) 1.2 k/uL (0-1.0); Monocytes % (A) 5 %; Neutrophils # (A) 19.3 k/uL (1.3-7.7); Neutrophils % (A) 86 %; Platelet Count 331 k/uL (150-450); Poikilocytosis Slight; RDW 18.7 % (11.5-15.5); WBC 22.5 k/uL (3.8-10.6)
[2022-05-06 16:12] LABS: HGB 6.7 gm/dL (13.0-17.5)
[2022-05-06] MEDS: PIPERACILLIN-TAZOBACTAM 3.375 GM in SODIUM CHLORIDE 0.9% 100 ML IVPB SCH (16:33)
[2022-05-06 17:03] LABS: Glucose,Whole Blood 229 mg/dL (70-110)
[2022-05-06 20:13] LABS: Glucose,Whole Blood 277 mg/dL (70-110)
[2022-05-06] MEDS: INSULIN DETEMIR (LEVEMIR) 100 UNIT/ML SYR SQ SCH (20:21)
[2022-05-06] MEDS: SENNOSIDES-DOCUSATE SODIUM 1 EACH TAB PO SCH (20:22)
[2022-05-06] MEDS: PANTOPRAZOLE 40 MG/10 ML VIAL IVP SCH (20:22)
[2022-05-06] MEDS: ACETAMINOPHEN TAB 325 MG TAB PO PRN (20:27)
--- NOTE | 2022-05-06 23:02 | P.PN ---
Subjective Progress Note Date: 05/06/22 Principal diagnosis: Leukocytosis Patient is a 72-year-old male electively admitted to the hospital 04/19/2022 for mitral valve repair and coronary bypass grafting 3 and this patient has been afebrile however noticed to have worsening leukocytosis. On today's evaluation that is 05/06/2022, the patient remains to be afebrile, the patient is breathing comfortably on 2 L nasal cannula oxygen, the patient denies any chest pain no worsening cough or sputum production no abdominal pain the patient is still complaining of pain to the sacral wound area but no worsening, patient is also developed hematuria the patient did not have a Mooney catheter Objective - Vital Signs Vital signs: Vital Signs Temp 98.5 F 05/06/22 11:14 Pulse 70 05/06/22 11:14 Resp 20 05/06/22 11:14 BP 121/73 05/06/22 11:14 Pulse Ox 94 L 05/06/22 10:00 FiO2 100 04/22/22 16:00 Intake & Output 05/05/22 05/06/22 05/06/22 18:59 06:59 18:59 Intake Total 1135 310 Output Total 1836 950 475 Balance -701 -950 -165 Weight 90.5 kg Intake: IV 5 0.9 5 Intake, IV Titration 100 Amount Anidulafungin 100 mg In 100 Sodium Chloride 0.9% 100 ml @ 84 mls/hr IVPB DAILY [facility] Rx#:[id number] Oral 720 Blood Product 310 310 Rc As-1 Unit 310 [id number] Rc As-1 Unit 310 [id number] Output: Urine 1825 950 475 Post Void Residual 11 Other: Voiding Method Urinal Urinal # Bowel Movements 1 ABP, PAP, CO, CI - Last Documented Arterial Blood Pressure 137/47 Pulmonary Artery Pressure 67/18 Cardiac Output 5.8 Cardiac Index 2.8 - Exam GENERAL DESCRIPTION: An elderly male up in the chair in no distress RESPIRATORY SYSTEM: Unlabored breathing , decreased breath sounds at bases HEART: S1 S2 regular rate and rhythm , ABDOMEN: Soft , no tenderness Stages the sacral pressure ulcer with a black esher and surrounding redness some foul-smelling EXTREMITIES: 2+ edema feet - Labs CBC & Chem 7: 05/06/22 15:38 05/06/22 06:07 Labs: Abnormal Lab Results - Last 24 Hours (Table) 05/04/22 05/05/22 05/05/22 Range/Units 11:33 11:36 16:57 WBC (3.8-10.6) k/uL RBC (4.30-5.90) m/uL Hgb (13.0-17.5) gm/dL Hct (39.0-53.0) % MCHC (31.0-37.0) g/dL RDW (11.5-15.5) % Sodium (137-145) mmol/L BUN (9-20) mg/dL Creatinine (0.66-1.25) mg/dL Glucose (74-99) mg/dL POC Glucose (mg/dL) 249 H 148 H (70-110) mg/dL Calcium (8.4-10.2) mg/dL ALT (4-49) U/L C-Reactive Protein (<1.0) mg/dL Total Protein (6.3-8.2) g/dL Albumin (3.5-5.0) g/dL Crossmatch See Detail 05/05/22 05/06/22 05/06/22 Range/Units 20:18 06:07 06:07 WBC 19.7 H (3.8-10.6) k/uL RBC 2.14 L (4.30-5.90) m/uL Hgb 6.2 L* (13.0-17.5) gm/dL Hct 20.4 L (39.0-53.0) % MCHC 30.2 L (31.0-37.0) g/dL RDW 17.8 H (11.5-15.5) % Sodium 134 L (137-145) mmol/L BUN 83 H (9-20) mg/dL Creatinine 1.50 H (0.66-1.25) mg/dL Glucose 163 H (74-99) mg/dL POC Glucose (mg/dL) 239 H (70-110) mg/dL Calcium 8.2 L (8.4-10.2) mg/dL ALT 63 H (4-49) U/L C-Reactive Protein 2.6 H (<1.0) mg/dL Total Protein 4.9 L (6.3-8.2) g/dL Albumin 2.7 L (3.5-5.0) g/dL Crossmatch 05/06/22 05/06/22 Range/Units 06:52 11:20 WBC (3.8-10.6) k/uL RBC (4.30-5.90) m/uL Hgb (13.0-17.5) gm/dL Hct (39.0-53.0) % MCHC (31.0-37.0) g/dL RDW (11.5-15.5) % Sodium (137-145) mmol/L BUN (9-20) mg/dL Creatinine (0.66-1.25) mg/dL Glucose (74-99) mg/dL POC Glucose (mg/dL) 203 H 265 H (70-110) mg/dL Calcium (8.4-10.2) mg/dL ALT (4-49) U/L C-Reactive Protein (<1.0) mg/dL Total Protein (6.3-8.2) g/dL Albumin (3.5-5.0) g/dL Crossmatch Microbiology - Last 24 Hours (Table) 05/03/22 05:54 Blood Culture - Preliminary Blood No Growth after 72 hours 04/29/22 09:27 Blood Culture - Final Blood No Growth after 144 hours 04/29/22 09:22 Blood Culture - Final Blood No Growth after 144 hours 04/30/22 16:45 Gram Stain - Final Pleural Fluid Body Fluid Culture - Final Assessment and Plan (1) Leukocytosis Current Visit: Yes Status: Acute Code(s): D72.829 - ELEVATED WHITE BLOOD CELL COUNT, UNSPECIFIED SNOMED Code(s): 052449906 Plan: 1patient with a leukocytosis in this patient who is postop day #13 mitral valve repair and CABG x3 patient did not have any fever during this hospital stay and the white count has been slowly creeping up over the last 5 days source possible cath versus UTI versus his sacral pressure ulcer, patient started as well as vein grafting sites looks clean without evidence of any cellulitis he did have a thoracocentesis with fluid does not look infected. 2 blood cultures are currently pending UA was not significantly positive CRP mildly elevated. 3patient was advised Medihoney to the sacral wound however has been switched over to Aquacel silver dressing by the wound care nurse, with bilateral also likely source of his elevated white count patient will benefit from Gen. surgery evaluation for surgical debridement patient was started on daptomycin we will add Zosyn to cover for gram-negative and monitor white count closely Time with Patient: Less than 30
[2022-05-07] MEDS: PIPERACILLIN-TAZOBACTAM 3.375 GM in SODIUM CHLORIDE 0.9% 100 ML IVPB SCH ×4 (00:08→23:23)
[2022-05-07] MEDS: ACETAMINOPHEN TAB 325 MG TAB PO PRN ×3 (02:32→20:28)
[2022-05-07 07:16] LABS: Glucose,Whole Blood 134 mg/dL (70-110)
[2022-05-07] MEDS: INSULIN ASPART (NovoLOG) 100 UNIT/ML VIAL SQ SCH ×5 (07:22→21:05)
[2022-05-07 07:30] LABS: Anisocytosis Slight; HCT 20.5 % (39.0-53.0); Hypochromasia Marked; MCH 28.6 pg (25.0-35.0); MCHC 30.4 g/dL (31.0-37.0); MCV 93.8 fL (80.0-100.0); Macrocytosis Slight; Mean Platelet Volume 8.4; Platelet Count 334 k/uL (150-450); Poikilocytosis Slight; RBC 2.18 m/uL (4.30-5.90); RDW 19.5 % (11.5-15.5); WBC 23.1 k/uL (3.8-10.6)
[2022-05-07 07:53] LABS: Albumin 2.9 g/dL (3.5-5.0); Calcium 8.5 mg/dL (8.4-10.2); Potassium 4.2 mmol/L (3.5-5.1); Total Bilirubin 1.1 mg/dL (0.2-1.3); Total Protein 5.2 g/dL (6.3-8.2)
[2022-05-07 07:55] LABS: HGB 6.2 gm/dL (13.0-17.5)
[2022-05-07] MEDS: SYMBICORT 160-4.5 MCG INHALER INHALATION SCH ×2 (08:09→20:03)
[2022-05-07] MEDS: IPRATROPIUM-ALBUTEROL 3 ML NEB INHALATION SCH ×4 (08:09→20:03)
--- NOTE | 2022-05-07 08:20 | P.PN ---
Subjective Progress Note Date: 05/07/22 Principal diagnosis: Status post CABG The patient is a 72-year-old gentleman who is status post CABG as well as mitral valve repair with surgery complicated by recurrent pleural effusion. The patient was seen this morning. He is overall stable from a perivascular standpoint of view. He is not on any vasopressors at this point. He does have history of hematuria but that seems to be cleared this morning. Currently he is on aspirin. He does have also history of paroxysmal atrial fibrillation and he was receiving oral anticoagulation which was stopped. Objective - Vital Signs Vital signs: Vital Signs Temp 97.8 F 05/07/22 04:00 Pulse 66 05/07/22 07:00 Resp 28 H 05/07/22 07:00 BP 112/48 05/07/22 07:00 Pulse Ox 96 05/07/22 07:00 FiO2 100 04/22/22 16:00 Intake & Output 05/06/22 05/07/22 05/07/22 18:59 06:59 18:59 Intake Total 410 690 Output Total 1126 650 281 Balance -716 40 -281 Weight 92.5 kg Intake: IV 150 DAPTOmycin 360 mg In 50 Sodium Chloride 0.9% 50 ml @ 100 mls/hr IVPB Q24H [facility] Rx#:[id number] Piperacillin-Tazobactam 3 100 .375 gm In Sodium Chloride 0.9% 100 ml @ 25 mls/hr IVPB Q8HR [facility] Rx# :[id number] Intake, IV Titration 100 Amount Piperacillin-Tazobactam 3 100 .375 gm In Sodium Chloride 0.9% 100 ml @ 25 mls/hr IVPB Q8HR [facility] Rx# :[id number] Oral 540 Blood Product 310 Rc As-1 Unit 310 [id number] Output: Urine 1125 650 150 Post Void Residual 131 Stool 1 Other: Voiding Method Urinal Urinal # Voids 1 0 1 # Bowel Movements 1 ABP, PAP, CO, CI - Last Documented Arterial Blood Pressure 137/47 Pulmonary Artery Pressure 67/18 Cardiac Output 5.8 Cardiac Index 2.8 - Constitutional General appearance: Present: no acute distress - Respiratory Respiratory: bilateral: diminished - Cardiovascular Rhythm: regular - Labs CBC & Chem 7: 05/07/22 06:52 05/07/22 06:52 Labs: Abnormal Lab Results - Last 24 Hours (Table) 05/04/22 05/06/22 05/06/22 Range/Units 11:33 11:20 14:42 WBC (3.8-10.6) k/uL RBC (4.30-5.90) m/uL Hgb (13.0-17.5) gm/dL Hct (39.0-53.0) % MCHC (31.0-37.0) g/dL RDW (11.5-15.5) % Neutrophils # (1.3-7.7) k/uL Lymphocytes # (1.0-4.8) k/uL Monocytes # (0-1.0) k/uL Sodium (137-145) mmol/L BUN (9-20) mg/dL Creatinine (0.66-1.25) mg/dL Glucose (74-99) mg/dL POC Glucose (mg/dL) 265 H (70-110) mg/dL AST (17-59) U/L ALT (4-49) U/L Total Protein (6.3-8.2) g/dL Albumin (3.5-5.0) g/dL Urine Protein Trace H (Negative) Urine Blood Moderate H (Negative) Urine RBC 17 H (0-5) /hpf Urine Bacteria Rare H (None) /hpf Urine Mucus Rare H (None) /hpf Crossmatch See Detail 05/06/22 05/06/22 05/06/22 Range/Units 15:38 17:01 20:11 WBC 22.5 H (3.8-10.6) k/uL RBC 2.40 L (4.30-5.90) m/uL Hgb 6.7 L* (13.0-17.5) gm/dL Hct 22.0 L (39.0-53.0) % MCHC 30.4 L (31.0-37.0) g/dL RDW 18.7 H (11.5-15.5) % Neutrophils # 19.3 H (1.3-7.7) k/uL Lymphocytes # 0.8 L (1.0-4.8) k/uL Monocytes # 1.2 H (0-1.0) k/uL Sodium (137-145) mmol/L BUN (9-20) mg/dL Creatinine (0.66-1.25) mg/dL Glucose (74-99) mg/dL POC Glucose (mg/dL) 229 H 277 H (70-110) mg/dL AST (17-59) U/L ALT (4-49) U/L Total Protein (6.3-8.2) g/dL Albumin (3.5-5.0) g/dL Urine Protein (Negative) Urine Blood (Negative) Urine RBC (0-5) /hpf Urine Bacteria (None) /hpf Urine Mucus (None) /hpf Crossmatch 05/07/22 05/07/22 05/07/22 Range/Units 06:52 06:52 07:15 WBC 23.1 H (3.8-10.6) k/uL RBC 2.18 L (4.30-5.90) m/uL Hgb 6.2 L* (13.0-17.5) gm/dL Hct 20.5 L (39.0-53.0) % MCHC 30.4 L (31.0-37.0) g/dL RDW 19.5 H (11.5-15.5) % Neutrophils # (1.3-7.7) k/uL Lymphocytes # (1.0-4.8) k/uL Monocytes # (0-1.0) k/uL Sodium 136 L (137-145) mmol/L BUN 77 H (9-20) mg/dL Creatinine 1.48 H (0.66-1.25) mg/dL Glucose 109 H (74-99) mg/dL POC Glucose (mg/dL) 134 H (70-110) mg/dL AST 69 H (17-59) U/L ALT 70 H (4-49) U/L Total Protein 5.2 L (6.3-8.2) g/dL Albumin 2.9 L (3.5-5.0) g/dL Urine Protein (Negative) Urine Blood (Negative) Urine RBC (0-5) /hpf Urine Bacteria (None) /hpf Urine Mucus (None) /hpf Crossmatch Microbiology - Last 24 Hours (Table) 05/03/22 05:54 Blood Culture - Preliminary Blood No Growth after 96 hours 05/06/22 14:42 Gram Stain - Preliminary Sputum Sputum Culture - Preliminary Assessment and Plan Assessment: Assessment #1 status post CABG and mitral valve repair #2 paroxysmal atrial fibrillation #3 recurrent pleural effusion #4 hematuria #5 anemia Plan Agree about holding anticoagulation at this point Continue aspirin Continue monitor the hemoglobin Follow-up with the patient
--- NOTE | 2022-05-07 08:27 | XR ---
EXAMINATION TYPE: XR chest 1V portable DATE OF EXAM: 05/07/2022 5:56 AM COMPARISON: Chest radiograph from one day prior. TECHNIQUE: XR chest 1V portable Portable AP radiograph of the chest. CLINICAL INDICATION:Male, 72 years old with history of post cardiac surgery; FINDINGS: Lungs/Pleura: There is no evidence of focal consolidation, or pneumothorax. Blunting of the right co stophrenic angle. Pulmonary vascularity: Pulmonary vascular congestion. Heart/mediastinum: Cardiomediastinal silhouette is enlarged and stable. Post valve repair changes. Musculoskeletal: No acute osseous pathology. Midline sternotomy wires are noted. Other findings: None Lines/Tubes: Endotracheal tube with distal tip xx cm above the [place]ha Nasogastric tube with its distal tip and side-port projecting under the diaphragm. IMPRESSION: Cardiomegaly, small right pleural effusion and mild pulmonary vascular congestion. Overall not signi ficantly changed from one day prior.
[2022-05-07] MEDS: bisacodyL 10 MG SUPP RECTAL PRN (09:00)
[2022-05-07] MEDS: AMIODARONE 200 MG TAB PO SCH (09:00)
[2022-05-07] MEDS: POTASSIUM CHLORIDE ER 20 MEQ TAB.ER PO SCH (09:00)
[2022-05-07] MEDS: METOPROLOL TARTRATE 25 MG TAB PO SCH ×2 (09:00→20:29)
[2022-05-07] MEDS: TAMSULOSIN 0.4 MG CAP.ER.24H PO SCH (09:00)
[2022-05-07] MEDS: BUMETANIDE 0.25 MG/ML 10 ML VIAL IV SCH (09:01)
[2022-05-07] MEDS: FERROUS SULFATE 325 MG TAB PO SCH (09:01)
[2022-05-07] MEDS: ASCORBIC ACID 500 MG TAB PO SCH (09:01)
[2022-05-07] MEDS: acetaZOLAMIDE 250 MG TAB PO SCH (09:01)
[2022-05-07] MEDS: ASPIRIN 325 MG TAB PO SCH (09:01)
[2022-05-07] MEDS: PANTOPRAZOLE 40 MG/10 ML VIAL IVP SCH ×2 (09:02→20:29)
[2022-05-07] MEDS: NON FORMULARY DRUG SQ SCH (09:02)
[2022-05-07] MEDS: guaiFENesin-DM 600/30MG 1 EACH TAB.ER.12H PO SCH ×2 (09:02→20:29)
--- NOTE | 2022-05-07 09:15 | P.PN ---
Subjective Progress Note Date: 05/07/22 Principal diagnosis: Severe mitral valve regurgitation, coronary artery disease, paroxysmal atrial fibrillation, patent foramen ovale, tricuspid regurgitation, chronic systolic congestive heart failure. Previous medical history of hypertension, hyperlipidemia, coronary artery disease with history of previous PCI, non-ST elevated myocardial infarction in November 2021, ischemic cardiomyopathy with EF 40- 45%, right internal carotid stenosis 50-79%, renal insufficiency, anemia with history of GI bleed in November 2021 S/P transfusion PRBCs, diabetes mellitus type 2, osteoarthritis, severe COPD, chronic ongoing nicotine dependence, remote history of pneumonia, chronic low back pain and hearing disorder. Nasal swab positive for MSSA preoperative POD #18 Mitral valve repair with 28 mm physio-2 ring, CABG 3 with saphenous vein grafts to first diagonal, obtuse marginal, posterior descending coronary arteries, closure of PFO, endovascular vein harvest, modified Castanon maze procedure with full left-sided lesion set and ligation of the left atrial appendage, SCOTT by anesthesia. Protamine reaction intraoperative Postoperative acute blood loss anemia, expected given his history of anemia, hemodilution and cardiopulmonary bypass Acute on chronic kidney failure, likely from hypotension from intraoperative protamine reaction Elevated transaminases, likely from hypotension from intraoperative protamine reaction Left pleural effusion, status post left-sided thoracentesis with removal of [address] Aguilar on 04/30/22 and again on 05/04/22 for 550 mL fluid Leukocytosis, afebrile, CRP and pro-calcitonin trending down, sputum culture negative, no pneumonia, no UTI, blood culture preliminary negative, likely due to sacral stage II ulcer The patient was seen and examined this morning sitting up in a recliner in the intensive care unit in no acute distress. Currently in sinus rhythm, hemodynamically stable. Currently on 2 L nasal cannula with oxygen saturation in the mid 90s, able to achieve 1250 mL on his incentive spirometer. States pain is controlled on current medication regimen, pain is generally with coughing and to his coccyx. Sacral decubitus ulcer stage II-III present due to lack of mobility. Labs and chest x-ray reviewed. Received another unit packed red blood cells yesterday, hemoglobin 6.2 again this morning, will receive another unit PRBCs, Eliquis discontinued yesterday. Patient had black tarry stools last night per nursing, positive for occult blood. Yesterday morning he had 1 episode of hematuria with clots present, this did resolve and is now voiding yellow urine. WBC continues to elevate despite negative cultures. Daptomycin added, Zosyn also added by Dr. Chen with recommendations for general surgery to evaluate sacral decubitus for surgical debridement. Patient has ambulated in the hallway with assistance and showered this morning. Objective - Vital Signs Vital signs: Vital Signs Temp 97.7 F 05/07/22 08:52 Pulse 71 05/07/22 08:52 Resp 22 05/07/22 08:52 BP 123/60 05/07/22 08:52 Pulse Ox 98 05/07/22 08:52 FiO2 100 04/22/22 16:00 Intake & Output 05/06/22 05/07/22 05/07/22 18:59 06:59 18:59 Intake Total 410 690 0 Output Total 1126 650 281 Balance -716 40 -281 Weight 92.5 kg Intake: IV 150 DAPTOmycin 360 mg In 50 Sodium Chloride 0.9% 50 ml @ 100 mls/hr IVPB Q24H [facility] Rx#:[id number] Piperacillin-Tazobactam 3 100 .375 gm In Sodium Chloride 0.9% 100 ml @ 25 mls/hr IVPB Q8HR [facility] Rx# :[id number] Intake, IV Titration 100 Amount Piperacillin-Tazobactam 3 100 .375 gm In Sodium Chloride 0.9% 100 ml @ 25 mls/hr IVPB Q8HR [facility] Rx# :[id number] Oral 540 Blood Product 310 0 Rc As-1 Unit 0 [id number] Rc As-1 Unit 310 [id number] Output: Urine 1125 650 150 Post Void Residual 131 Stool 1 Other: Voiding Method Urinal Urinal # Voids 1 0 1 # Bowel Movements 1 ABP, PAP, CO, CI - Last Documented Arterial Blood Pressure 137/47 Pulmonary Artery Pressure 67/18 Cardiac Output 5.8 Cardiac Index 2.8 - Exam CONSTITUTIONAL: Appears mostly comfortable, cooperative, very hard of hearing RESPIRATORY: Lungs sounds diminished bilaterally. Respirations even, nonlabored. Currently on 2 L high flow nasal cannula with oxygen saturation 94%. Able to achieve 1250 mL on incentive spirometry. Strong nonproductive cough. CARDIOVASCULAR: S1, S2 present. Regular rate and rhythm, sinus rhythm on telemetry. Sternum stable. Palpable peripheral pulses bilaterally. Bilateral lower extremity edema present, less than yesterday. No calf pain or tenderness noted. Heart hugger in place. Antiembolism stockings, SCDs present. GASTROINTESTINAL: Abdomen soft, nontender, nondistended. Active bowel sounds present 4 quadrants. Tolerating diet. Positive bowel movement 05/07 GENITOURINARY: Voiding 150-200 mL at a time, output 1775 mL in the last 24 hours INTEGUMENTARY: Skin is warm and dry. Anterior chest incision well approximated. Bilateral EVH site well approximated. Stage II-III present to sacrum covered with opti-foam NEUROLOGIC: Cranial nerves II through XII intact MUSKULOSKELETAL: Able to move all extremities, strength equal bilaterally PSYCHIATRIC: Oriented to person place and time - Allied health notes Allied health notes reviewed: nursing - Labs CBC & Chem 7: 05/07/22 06:52 05/07/22 06:52 Labs: Abnormal Lab Results - Last 24 Hours (Table) 05/04/22 05/06/22 05/06/22 Range/Units 11:33 11:20 14:42 WBC (3.8-10.6) k/uL RBC (4.30-5.90) m/uL Hgb (13.0-17.5) gm/dL Hct (39.0-53.0) % MCHC (31.0-37.0) g/dL RDW (11.5-15.5) % Neutrophils # (1.3-7.7) k/uL Lymphocytes # (1.0-4.8) k/uL Monocytes # (0-1.0) k/uL Sodium (137-145) mmol/L BUN (9-20) mg/dL Creatinine (0.66-1.25) mg/dL Glucose (74-99) mg/dL POC Glucose (mg/dL) 265 H (70-110) mg/dL AST (17-59) U/L ALT (4-49) U/L Total Protein (6.3-8.2) g/dL Albumin (3.5-5.0) g/dL Urine Protein Trace H (Negative) Urine Blood Moderate H (Negative) Urine RBC 17 H (0-5) /hpf Urine Bacteria Rare H (None) /hpf Urine Mucus Rare H (None) /hpf Crossmatch See Detail 12/09/2205/06/22 05/06/22 Range/Units 15:38 17:01 20:11 WBC 22.5 H (3.8-10.6) k/uL RBC 2.40 L (4.30-5.90) m/uL Hgb 6.7 L* (13.0-17.5) gm/dL Hct 22.0 L (39.0-53.0) % MCHC 30.4 L (31.0-37.0) g/dL RDW 18.7 H (11.5-15.5) % Neutrophils # 19.3 H (1.3-7.7) k/uL Lymphocytes # 0.8 L (1.0-4.8) k/uL Monocytes # 1.2 H (0-1.0) k/uL Sodium (137-145) mmol/L BUN (9-20) mg/dL Creatinine (0.66-1.25) mg/dL Glucose (74-99) mg/dL POC Glucose (mg/dL) 229 H 277 H (70-110) mg/dL AST (17-59) U/L ALT (4-49) U/L Total Protein (6.3-8.2) g/dL Albumin (3.5-5.0) g/dL Urine Protein (Negative) Urine Blood (Negative) Urine RBC (0-5) /hpf Urine Bacteria (None) /hpf Urine Mucus (None) /hpf Crossmatch 05/07/22 05/07/22 05/07/22 Range/Units 06:52 06:52 07:15 WBC 23.1 H (3.8-10.6) k/uL RBC 2.18 L (4.30-5.90) m/uL Hgb 6.2 L* (13.0-17.5) gm/dL Hct 20.5 L (39.0-53.0) % MCHC 30.4 L (31.0-37.0) g/dL RDW 19.5 H (11.5-15.5) % Neutrophils # (1.3-7.7) k/uL Lymphocytes # (1.0-4.8) k/uL Monocytes # (0-1.0) k/uL Sodium 136 L (137-145) mmol/L BUN 77 H (9-20) mg/dL Creatinine 1.48 H (0.66-1.25) mg/dL Glucose 109 H (74-99) mg/dL POC Glucose (mg/dL) 134 H (70-110) mg/dL AST 69 H (17-59) U/L ALT 70 H (4-49) U/L Total Protein 5.2 L (6.3-8.2) g/dL Albumin 2.9 L (3.5-5.0) g/dL Urine Protein (Negative) Urine Blood (Negative) Urine RBC (0-5) /hpf Urine Bacteria (None) /hpf Urine Mucus (None) /hpf Crossmatch Microbiology - Last 24 Hours (Table) 05/03/22 05:54 Blood Culture - Preliminary Blood No Growth after 96 hours 05/06/22 14:42 Gram Stain - Preliminary Sputum Sputum Culture - Preliminary - Imaging and Cardiology Chest x-ray: report reviewed, image reviewed Assessment and Plan Assessment: 1. Severe mitral valve regurgitation, status post mitral valve repair 2. Coronary artery disease, previous PCI, previous non-STEMI, status post CABG 3 3. History of paroxysmal atrial fibrillation, previous cardioversion, on [facility] outpatient for anticoagulation, status post modified Castanon maze and ligation of left atrial appendage 4. Patent foramen ovale, status post closure 5. Tricuspid regurgitation 6. Chronic systolic congestive heart failure, ischemic cardiomyopathy with EF 40-45% 7. History of hypertension 8. History hyperlipidemia, treated, cholesterol 150, LDL 72 9. Right internal carotid stenosis 50-79% 10. Anemia with history of GI bleed in November 2021 S/P transfusion PRBCs 11. Acute on chronic renal failure, baseline creatinine 1.28-1.6 12. Diabetes mellitus type 2, preoperative hemoglobin A1c 5.6% 13. Osteoarthritis 14. Severe COPD, preoperative FEV1 41% of predicted 15. Chronic ongoing nicotine dependence 16. Remote history of pneumonia 17. Chronic low back pain, hearing disorder 18. Nasal swab positive for MSSA preoperative 19. Postoperative acute blood loss anemia, expected 20. Elevated transaminases 21. Protamine reaction intraoperative 22. Leukocytosis, afebrile, CRP and pro-calcitonin trending down, sputum culture negative, no pneumonia, no UTI, likely due to sacral stage II ulcer 23. Medical debility, generalized weakness 24. Stage II-III decubitus to his buttocks 25. Small left-sided pleural effusion, status post left-sided thoracentesis on 04/30/2022 26. Urinary retention possibly secondary to constipation Plan: 1. Continue full dose aspirin, beta siomara, low dose Imdur. Statin discontinued by Dr. Chen 2. Continue amiodarone. Eliquis discontinued 3. Continue bumex 2 mg IV daily. Diamox discontinued 4. Wean O2 as tolerated. Encourage incentive spirometry 10 times every hour while awake. Bronchodilators per pulmonology 5. Increase activity, ambulate as tolerated. PT/OT/cardiac rehab following 6. Will monitor daily labs and chest x-rays. Electrolyte replacement per protocol. Will transfuse 1 unit packed red blood cells today 7. GI/DVT prophylaxis. 8. Insulin management per primary care service. Patient is a diabetic with a preoperative hemoglobin A1c of 5.6% on multiple oral medications, needs tighter blood sugar control 9. Pain control with current medication regimen. Avoid narcotics 10. Continue Flomax 11. Strict accurate intake and output. Daily weights. 12. Dr. Chen consulted due to leukocytosis. Continue daptomycin, Zosyn added. UA negative, sputum culture negative, blood cultures preliminary negative. CRP, pro-calcitonin trending down. Remains afebrile 13. Smoking cessation counseling and education provided to patient and family 14. Medihoney ordered for sacral decubitus per Dr. Chen 15. Consult place for general surgery as there is no GI coverage this week for GI bleed as well as evaluation for surgical debridement of sacral decubitus 16. More recommendations to follow based on patient's clinical course.
[2022-05-07] MEDS: LIDOCAINE 5% PATCH TOPICAL SCH (10:41)
--- NOTE | 2022-05-07 11:15 | P.PN ---
Subjective Progress Note Date: 05/07/22 Principal diagnosis: Status post CABG. This is a pleasant 72-year-old male patient with a known history of osteoarthritis was multiple orthopedic surgeries, diabetes mellitus, hyp erlipidemia, chronic tobacco dependence, paroxysmal atrial fibrillation. He was recently found to have coronary artery disease with a total occlusion of the RCA with collateral circulation, obtuse marginal with 99% stenosis and mild LAD disease. His ejection fraction is 45%. He was also found to have severe mitral regurgitation, moderate central tricuspid regurgitation as well as evidence of a PFO with [id number] shunt. He was recommended coronary artery bypass grafting and valvular repair. He was brought in to the hospital yesterday 04/20/2022 for an elective procedure. He did undergo mitral valve repair, coronary bypass grafting 3 with an SVG to the first diagonal, obtuse marginal and posterior descending coronary arteries, closure of a PFO, modified Castanon-Maze procedure and litigation of the left atrial appendage. He was successfully extubated within the 6 hour protocol. He is seen today in consultation in the intensive care unit. He is ready sitting up in a chair. Awake and alert in no acute distress. He is maintaining O2 saturation in the 90s on 3 L/m per nasal cannula. He has insulin drip at 5 units per hour. Lactated Ringer's at 20 miles per hour. He initially was on epinephrine drip that has been discontinued. He did receive 2 units of packed red blood cells, 2 units of fresh frozen plasma and 1 unit of platelets. White count 8.9. Hemoglobin 7.7. Platelets 139,000. Sodium 142. Potassium 5.5. Chloride 111. Bicarb 23. BUN 32. Creatinine 1.73. Glucose 125. AST 1:30. ALT 37. Magnesium 3.6. Mean arterial blood pressure in the 70s. PA pressures 50/18. CVP 12. Cardiac output 6.5. Cardiac index 3.1. He is on bronchodilators. Working well with the incentive spirometer. Chest x-ray reveals scattered opacities bilaterally. No evidence of pleural effusion, focal consolidation or pneumothorax. Mediastinal 2, left pleural chest tube in place. He is continued on oral amiodarone. Heparin for DVT prophylaxis. The patient is seen today in 04/21/2022 in follow-up in the intensive care unit. He is currently sitting up in a recliner at the bedside. Maintaining O2 saturations on 5 L/m per nasal cannula. He did require BiPAP support last evening and was placed on 14/10 and 100% FiO2 eventually decreased to 40%. He is currently on a Lasix drip at 5 mg per hour. Dopamine drip at 2 mcg/kg/m. Cardiac output 4.6. Cardiac index 2.2. He is dual pacing. He has normal saline at 20 ML's per hour. He is unemployed about 750 MLS on the incentive spirometer. His x-ray continues to show cardiomegaly with ongoing mild pulmonary vascular congestion. Increasing patchy bibasilar opacities/atelectasis. Right IJ [place]-Varghese catheter remains in place. He is sternal and left sided chest tubes remain in place. No pneumothorax. White count 9.6. Hemoglobin 7.3. Platelets 144. Sodium 132. Potassium 5.4. Bicarb 21. BUN 41. Creatinine 2.53. Glucose 175. AST 1309. ALT 547. Albumin 3.6. The patient does have a cyst the year smoking history. He remains on DuoNeb inhalations 4 times a day and when necessary. Heparin for DVT prophylaxis. Progress note dated 04/22/2022. 72-year-old male, who is currently seen in room 267. He's postop day #3. The patient's currently on 8 L high flow oxygen. He is getting dopamine at 2 mcg/kg/m, a Lasix drip at 10 mg an hour, insulin at 1.5 units an hour, and saline at 20 mL an hour. Labs today include a white count of 8.5, hemoglobin 7.4, hematocrit 23.3, and a platelet count of 135,000. Sodium 131, potassium 5.8, chlorides 102, CO2 23, BUN 51, and creatinine 3.1. AST was 2217. ALT is 1006. Chest x-ray shows cardiomegaly, and pulmonary vascular congestion. Reevaluated today on 05/05/22, remains in the ICU, remains marginal at best. Today the patient is feeling a bit better, and he would likely feel even better once he gets another unit of packed RBCs continues to have low hemoglobin. Chest x-ray showed minimal atelectasis, no clear-cut evidence of congestive he art failure. Patient is sitting at a bedside chair, he is on 2 L nasal cannula, able to achieve about 1000 mL via incentive spirometry. No pain, no discomfort, continues to have a sacral decubitus ulcer stage II3. Hemoglobin today is 6.7, was 6.1 yesterday, and he will receive another unit of packed RBCs today. Reevaluated today on 05/06/22, remains in the ICU, patient is doing well, requiring another unit of packed RBCs today, patient is having hematuria, and that's going to be addressed by urology which was consulted. Pulmonary-arboleda is about the same, remains on 2 L nasal cannula, chest x-ray is showing evidence of interstitial edema and small tiny left-sided and right-sided pleural effusions, not large enough to consider thoracentesis at this point yet. He remained generally weak and short of breath with any activity. Hemoglobin today is 6.2, WBC count is 19.7, patient was placed on daptomycin and Eraxis empirically by infectious disease on the case. All cultures have been nondiagnostic so far including blood pleural effusion cultures and sputum cultures. Patient does hav e a sacral decubitus ulcer that may be causing his leukocytosis Progress note dated 05/07/2022. 72-year-old male status post four-vessel bypass grafting, mitral valve repair, and Castanon-Maze procedure. The patient is currently on 2 L of oxygen. Not receiving any IV fluids. He, he's had problems with anemia, he is receiving his sixth unit of blood. Surgery was consulted. White count 23.1, hemoglobin 6.2, hematocrit 20.5, and platelet count 334,000. Sodium 136, potassium 4.2, chlorides 100, due to 27, anion gap 9, BUN 77, and creatinine 1.48. Chest x-ray shows cardiomegaly, and small right pleural effusion. Objective - Vital Signs Vital signs: Vital Signs Temp 98.2 F 05/07/22 10:46 Pulse 62 05/07/22 10:46 Resp 18 05/07/22 10:46 BP 112/46 05/07/22 10:46 Pulse Ox 98 05/07/22 10:46 FiO2 100 04/22/22 16:00 Intake & Output 05/06/22 05/07/22 05/07/22 18:59 06:59 18:59 Intake Total 410 690 410 Output Total 1126 650 931 Balance -716 40 -521 Weight 92.5 kg 92.5 kg Intake: IV 150 100 DAPTOmycin 360 mg In 50 Sodium Chloride 0.9% 50 ml @ 100 mls/hr IVPB Q24H [facility] Rx#:[id number] Piperacillin-Tazobactam 3 100 100 .375 gm In Sodium Chloride 0.9% 100 ml @ 25 mls/hr IVPB Q8HR [facility] Rx# :[id number] Intake, IV Titration 100 Amount Piperacillin-Tazobactam 3 100 .375 gm In Sodium Chloride 0.9% 100 ml @ 25 mls/hr IVPB Q8HR [facility] Rx# :[id number] Oral 540 Blood Product 310 310 Rc As-1 Unit 310 [id number] Rc As-1 Unit 310 [id number] Output: Urine 1125 650 800 Post Void Residual 131 Stool 1 Other: Voiding Method Urinal Urinal # Voids 1 0 1 # Bowel Movements 1 1 ABP, PAP, CO, CI - Last Documented Arterial Blood Pressure 137/47 Pulmonary Artery Pressure 67/18 Cardiac Output 5.8 Cardiac Index 2.8 - Exam No acute distress, oriented 3. No audible wheezing, use of accessory muscles, or conversational dyspnea. The patient remains on 2 L of oxygen. HEENT examination is grossly unremarkable. Neck supple. Full range of motion. No adenopathy thyromegaly or neck vein distention. Cardiovascular examination reveals regular rhythm rate. S1-S2 normal. No S3 or S4. No discernible murmur noted. Heart rate is 62 bpm. Heart sounds are distant. Lungs reveal scattered bilateral rhonchi. Crackles at the bases. No wheezes. Breath sounds are equal bilaterally. Saturations are 98 %. Abdomen soft bowel sounds are heard. No masses or tenderness. Extremities are intact. No cyanosis clubbing or edema. Skin is without rash or lesion. Neurologic examination is brief but nonfocal. - Labs CBC & Chem 7: 05/07/22 06:52 05/07/22 06:52 Labs: Abnormal Lab Results - Last 24 Hours (Table) 05/04/22 05/06/22 05/06/22 Range/Units 11:33 11:20 14:42 WBC (3.8-10.6) k/uL RBC (4.30-5.90) m/uL Hgb (13.0-17.5) gm/dL Hct (39.0-53.0) % MCHC (31.0-37.0) g/dL RDW (11.5-15.5) % Neutrophils # (1.3-7.7) k/uL Lymphocytes # (1.0-4.8) k/uL Monocytes # (0-1.0) k/uL Sodium (137-145) mmol/L BUN (9-20) mg/dL Creatinine (0.66-1.25) mg/dL Glucose (74-99) mg/dL POC Glucose (mg/dL) 265 H (70-110) mg/dL AST (17-59) U/L ALT (4-49) U/L Total Protein (6.3-8.2) g/dL Albumin (3.5-5.0) g/dL Urine Protein Trace H (Negative) Urine Blood Moderate H (Negative) Urine RBC 17 H (0-5) /hpf Urine Bacteria Rare H (None) /hpf Urine Mucus Rare H (None) /hpf Crossmatch See Detail 05/06/22 05/06/22 05/06/22 Range/Units 15:38 17:01 20:11 WBC 22.5 H (3.8-10.6) k/uL RBC 2.40 L (4.30-5.90) m/uL Hgb 6.7 L* (13.0-17.5) gm/dL Hct 22.0 L (39.0-53.0) % MCHC 30.4 L (31.0-37.0) g/dL RDW 18.7 H (11.5-15.5) % Neutrophils # 19.3 H (1.3-7.7) k/uL Lymphocytes # 0.8 L (1.0-4.8) k/uL Monocytes # 1.2 H (0-1.0) k/uL Sodium (137-145) mmol/L BUN (9-20) mg/dL Creatinine (0.66-1.25) mg/dL Glucose (74-99) mg/dL POC Glucose (mg/dL) 229 H 277 H (70-110) mg/dL AST (17-59) U/L ALT (4-49) U/L Total Protein (6.3-8.2) g/dL Albumin (3.5-5.0) g/dL Urine Protein (Negative) Urine Blood (Negative) Urine RBC (0-5) /hpf Urine Bacteria (None) /hpf Urine Mucus (None) /hpf Crossmatch 05/07/22 05/07/22 05/07/22 Range/Units 06:52 06:52 07:15 WBC 23.1 H (3.8-10.6) k/uL RBC 2.18 L (4.30-5.90) m/uL Hgb 6.2 L* (13.0-17.5) gm/dL Hct 20.5 L (39.0-53.0) % MCHC 30.4 L (31.0-37.0) g/dL RDW 19.5 H (11.5-15.5) % Neutrophils # (1.3-7.7) k/uL Lymphocytes # (1.0-4.8) k/uL Monocytes # (0-1.0) k/uL Sodium 136 L (137-145) mmol/L BUN 77 H (9-20) mg/dL Creatinine 1.48 H (0.66-1.25) mg/dL Glucose 109 H (74-99) mg/dL POC Glucose (mg/dL) 134 H (70-110) mg/dL AST 69 H (17-59) U/L ALT 70 H (4-49) U/L Total Protein 5.2 L (6.3-8.2) g/dL Albumin 2.9 L (3.5-5.0) g/dL Urine Protein (Negative) Urine Blood (Negative) Urine RBC (0-5) /hpf Urine Bacteria (None) /hpf Urine Mucus (None) /hpf Crossmatch Microbiology - Last 24 Hours (Table) 05/03/22 05:54 Blood Culture - Preliminary Blood No Growth after 96 hours 05/06/22 14:42 Gram Stain - Preliminary Sputum Sputum Culture - Preliminary Assessment and Plan Assessment: Coronary artery disease with valvular heart disease. Status post mitral valve repair, coronary bypass grafting 3 with an SVG to the first diagonal, obtuse marginal and posterior descending coronary arteries, closure of a PFO, modified Castanon-Maze procedure and litigation of the left atrial appendage. Postoperative day #18. Acute hypoxemic respiratory failure secondary to above. Currently on 2 L of oxygen. Paroxysmal atrial fibrillation. Chronic and ongoing tobacco dependence. Chronic obstructive pulmonary disease, FEV1 value of 52% of predicted. Acute on chronic anemia, status post 6 units packed red blood cells. Osteoarthritis. Diabetes mellitus. Hyperlipidemia. Plan: Plan dated 04/22/2022. The patient will absolutely not wearing the BiPAP device. The patient is on dopamine, Lasix drip, and insulin drip. Today is postop day #3. Labs, x-rays, and medications are reviewed. The patient's overall prognosis remains guarded. We will continue to follow and make recommendations along the way. The patient continues on DVT and GI prophylaxis. He continues on breathing treatments. Prognosis is guarded. Plan dated 05/07/2022. The patient is receiving his sixth unit of blood. Surgery has been consulted for his ongoing anemia, and suspected GI bleed. We will continue to follow this patient and make recommendations along the way. Labs, x-rays, and medications are reviewed. Clinically, the patient looks reasonable, but pale. He's been weaned down to 2 L of oxygen. Prognosis is guarded. Time with Patient: Less than 30
[2022-05-07 11:22] LABS: Glucose,Whole Blood 281 mg/dL (70-110)
--- NOTE | 2022-05-07 13:23 | P.GSCN ---
History of Present Illness Consult date: 05/07/22 History of present illness: CHIEF COMPLAINT: Coronary artery disease and mitral regurgitation Reason for consult: Sacral wound debridement and possible GI bleed HISTORY OF PRESENT ILLNESS: This is a 72-year-old male with past medical history of mitral regurgitation, coronary artery disease patent foramen ovale, tricuspid regurgitation and chronic systolic congestive heart failure. He is status post mitral valve repair, CABG 3 vessels, closure of PFO and Castanon maze procedure on 04/19/2022. Patient has required thoracentesis during this admission. He did have paroxysmal atrial fibrillation and had been placed on anticoagulation. The last dose of Eliquis was on 05/05/22. Patient is currently in the ICU. He has been anemic with black stools. Hemoglobin on admission 9.1 his trend downwards to 6.2. Patient has required 6 units of packed red blood cells 2 units of FFP and 1 unit of platelets. The FFP and platelets were given on day of surgery. Patient does report some epigastric discomfort. He denies any nausea or vomiting. He has been having black stools but is also been on oral iron. He does report having bleeding in his stomach where he needed cauterization and clipping in November of this year. Patient reports her more recent EGD in March of this year and that was normal and done at [facility]. His last colonoscopy was over a year ago and he reports that was negative. During patient's hospitalization he has developed a sacral wound. The wound has been draining. Per nursing staff the drainage as decreasing. However, the skin is becoming black. PAST MEDICAL HISTORY: See below PAST SURGICAL HISTORY: See below MEDICATIONS: See below ALLERGIES: See below SOCIAL HISTORY: No illicit drug use. REVIEW OF SYSTEMS: CONSTITUTIONAL: Denies fever or chills. HEENT: Denies blurred vision, vision changes, or eye pain. Denies hemoptysis CARDIOVASCULAR: Denies chest pain or pressure. RESPIRATORY: No shortness of breath. GASTROINTESTINAL: See HPI for pertinent findings HEMATOLOGIC: Denies bleeding disorders. GENITOURINARY: Denies any blood in urine or increased urinary frequency. SKIN: Denies pruitis. Denies rash. PHYSICAL EXAM: VITAL SIGNS: Reviewed GENERAL: Well-developed in no acute distress. HEENT: No sclera icterus. Extraocular movements grossly intact. Moist buccal mucosa. Head is atraumatic, normocephalic. No nasal drainage. ABDOMEN: Soft. Nondistended. Epigastric tenderness NEUROLOGIC: Alert and oriented. Cranial nerves II through XII grossly intact. SKIN: Reviewed photo of the sacral wound. Patient has a sacral wound measuring 7 x 6 cm. There is eschar tissue with surrounding yellow tissue and an area of erythema. LABORATORY DATA: WBC is 23.1 HGB6.2 platelets 334 Sodium is 136 potassium 4.2 creatinine 1.48 IMAGING: Chest x-ray cardiomegaly, small right pleural effusion and mild pulmonary vascular congestion. ASSESSMENT: 1. Sacral wound pressure ulcer 2. GI bleed with black stools and anemia. On Iron supplement 3. Status post mitral valve repair, CABG, closure of PFO and Castanon maze procedure with cardiovascular surgery PLAN: -Further recommendations forthcoming per surgeon -Continue local wound care to sacral wound -Continue off loading of the sacral ulcer -Continue to hold Eliquis -Continue PPI -Continue monitor hemoglobin -Continue to monitor for any signs or symptoms of bleeding -We'll try to obtain records of EGD completed at [facility] in November 2021 Thank you for this consultation Physician Measuring Machine Tender note has been reviewed by physician. Signing provider agrees with the documented findings, assessment, and plan of care. I have personally seen and examined the patient, reviewed the SOFTWARE SALES EXECUTIVE /PAs history, exam and MDM and agree with the assessment and plan as written. Based on total visit time, I have performed more than 50% of the visit. As above: Patient with persistent GI bleed and heme positive stools. Patient with history of upper GI bleeding in November of this year. Most recent EGD showed resolution of the problem. I do not have records from the endoscopies performed over the last few months. Patient also with issues relating to a unstageable sacral decubitus ulcer. There is a tenderness, erythema, fluctuance and significant foul odor present with this. I suspect an underlying abscess is present. Options reviewed with the patient and his by phone. We'll proceed with EGD and debridement sacral decubitus ulcer tomorrow. Risks of bleeding, infection, inflammation, respiratory failure reviewed. They understand and wish to proceed. Past Medical History Past Medical History: Atrial Fibrillation, Blood Disorder, COPD, Diabetes Mellitus, GI Bleed, Hearing Disorder / Deafness, Hyperlipidemia, Hypertension, Myocardial Infarction (AR), Pneumonia Additional Past Medical History / Comment(s): Anemia, had GI Bleed 11/22, had 4 units of blood. Bilateral lower extremity edema. Hx AR X2. Insomnia. Hx Pneumonia. Chronic back pain. Last Myocardial Infarction Date:: 11/2021 History of Any Multi-Drug Resistant Organisms: None Reported Past Surgical History: Back Surgery, Heart Catheterization With Stent, Joint Replacement, Orthopedic Surgery Additional Past Surgical History / Comment(s): BILATERAL KNEE REPLACEMENTS, BILATERAL SHOULDER SURGERY, ONE CARDIAC STENT, back surgery X2 (lumbar decompression and fusion), BACK INJECTIONS, COLONOSCOPY, BILATERAL CATARACTS REMOVED WITH LENS IMPLANTS, Cardioversion. Past Anesthesia/Blood Transfusion Reactions: No Reported Reaction Date of Last Stent Placement:: 2000 Smoking Status: Current some day smoker - Past Family History Father Family Medical History: No Reported History Mother Family Medical History: No Reported History Medications and Allergies Home Medications Medication Instructions Recorded Confirmed Type Atorvastatin [Lipitor] 80 mg PO HS 04/26/14 04/12/22 History Ramipril 10 mg PO QAM 04/26/14 04/12/22 History metFORMIN HCL [Glucophage] 500 mg PO BID 04/26/14 04/12/22 History Liraglutide [Victoza 3-Casey] 1.8 mg SQ DAILY 02/19/17 04/12/22 History Metoprolol Tartrate 25 mg PO QAM 02/19/17 04/12/22 History Stool Softener(Unknown Name/Do 2 tab PO DAILY 02/19/17 04/12/22 History Vit C/E/Zn/Coppr/Lutein/Zeaxan 2 cap PO DAILY 02/19/17 04/12/22 History [Preservision Areds 2 Softgel] Acetaminophen [Tylenol Extra 500 - 1,000 mg PO DIRECTED PRN 02/02/20 04/12/22 History Strength] Pioglitazone [Actos] 15 mg PO DAILY 02/02/20 04/19/22 History Apixaban [Eliquis] 5 mg PO BID 11/09/21 04/12/22 History Fluticasone/Umeclidin/Vilanter 1 inhalation INHALATION HS 11/09/21 04/12/22 History [Trelegy Ellipta 100-62.5-25] Fenofibrate 160 mg PO HS 12/22/21 04/12/22 History Ferrous Sulfate [Feosol] 325 mg PO BID 12/22/21 04/12/22 History Furosemide [Lasix] 40 mg PO BID 12/22/21 04/12/22 History Ipratropium-Albuterol Nebulize 3 ml INHALATION QID PRN 12/22/21 04/12/22 History [Duoneb 0.5 mg-3 mg/3 ml Soln] Pantoprazole Sodium [Protonix] 40 mg PO PC-LUNCH 12/22/21 04/12/22 History Repaglinide [Prandin] 0.5 mg PO AC-SUPPER 12/22/21 04/12/22 History Mupirocin [Mupirocin 2%] 1 applic NASAL BID #1 tub 04/14/22 04/19/22 Rx Allergies Allergy/AdvReac Type Severity Reaction Status Date / Time protamine AdvReac Anaphylaxis Verified 04/22/22 07:27 Surgical - Exam Vital Signs Temp Pulse Resp BP Pulse Ox 97.1 F L 95 20 154/90 94 L 04/19/22 06:05 04/19/22 06:05 04/19/22 06:05 04/19/22 06:05 04/19/22 06:05 Results - Labs 05/07/22 06:52 05/07/22 06:52 Abnormal Lab Results - Last 24 Hours (Table) 05/04/22 05/06/22 05/06/22 Range/Units 11:33 14:42 15:38 WBC 22.5 H (3.8-10.6) k/uL RBC 2.40 L (4.30-5.90) m/uL Hgb 6.7 L* (13.0-17.5) gm/dL Hct 22.0 L (39.0-53.0) % MCHC 30.4 L (31.0-37.0) g/dL RDW 18.7 H (11.5-15.5) % Neutrophils # 19.3 H (1.3-7.7) k/uL Lymphocytes # 0.8 L (1.0-4.8) k/uL Monocytes # 1.2 H (0-1.0) k/uL Sodium (137-145) mmol/L BUN (9-20) mg/dL Creatinine (0.66-1.25) mg/dL Glucose (74-99) mg/dL POC Glucose (mg/dL) (70-110) mg/dL AST (17-59) U/L ALT (4-49) U/L Total Protein (6.3-8.2) g/dL Albumin (3.5-5.0) g/dL Urine Protein Trace H (Negative) Urine Blood Moderate H (Negative) Urine RBC 17 H (0-5) /hpf Urine Bacteria Rare H (None) /hpf Urine Mucus Rare H (None) /hpf Crossmatch See Detail Blood Bank Comment Sent to ReferenceLab A Reference Lab Result See BBK REF Reports A 05/06/22 05/06/22 05/07/22 Range/Units 17:01 20:11 06:52 WBC 23.1 H (3.8-10.6) k/uL RBC 2.18 L (4.30-5.90) m/uL Hgb 6.2 L* (13.0-17.5) gm/dL Hct 20.5 L (39.0-53.0) % MCHC 30.4 L (31.0-37.0) g/dL RDW 19.5 H (11.5-15.5) % Neutrophils # (1.3-7.7) k/uL Lymphocytes # (1.0-4.8) k/uL Monocytes # (0-1.0) k/uL Sodium (137-145) mmol/L BUN (9-20) mg/dL Creatinine (0.66-1.25) mg/dL Glucose (74-99) mg/dL POC Glucose (mg/dL) 229 H 277 H (70-110) mg/dL AST (17-59) U/L ALT (4-49) U/L Total Protein (6.3-8.2) g/dL Albumin (3.5-5.0) g/dL Urine Protein (Negative) Urine Blood (Negative) Urine RBC (0-5) /hpf Urine Bacteria (None) /hpf Urine Mucus (None) /hpf Crossmatch Blood Bank Comment Reference Lab Result 05/07/22 05/07/22 05/07/22 Range/Units 06:52 07:15 11:21 WBC (3.8-10.6) k/uL RBC (4.30-5.90) m/uL Hgb (13.0-17.5) gm/dL Hct (39.0-53.0) % MCHC (31.0-37.0) g/dL RDW (11.5-15.5) % Neutrophils # (1.3-7.7) k/uL Lymphocytes # (1.0-4.8) k/uL Monocytes # (0-1.0) k/uL Sodium 136 L (137-145) mmol/L BUN 77 H (9-20) mg/dL Creatinine 1.48 H (0.66-1.25) mg/dL Glucose 109 H (74-99) mg/dL POC Glucose (mg/dL) 134 H 281 H (70-110) mg/dL AST 69 H (17-59) U/L ALT 70 H (4-49) U/L Total Protein 5.2 L (6.3-8.2) g/dL Albumin 2.9 L (3.5-5.0) g/dL Urine Protein (Negative) Urine Blood (Negative) Urine RBC (0-5) /hpf Urine Bacteria (None) /hpf Urine Mucus (None) /hpf Crossmatch Blood Bank Comment Reference Lab Result Microbiology - Last 24 Hours (Table) 05/03/22 05:54 Blood Culture - Preliminary Blood No Growth after 96 hours 05/06/22 14:42 Gram Stain - Preliminary Sputum Sputum Culture - Preliminary Diabetes panel 05/07/22 Range/Units 06:52 Sodium 136 L (137-145) mmol/L Potassium 4.2 (3.5-5.1) mmol/L Chloride 100 (98-107) mmol/L Carbon Dioxide 27 (22-30) mmol/L BUN 77 H (9-20) mg/dL Creatinine 1.48 H (0.66-1.25) mg/dL Glucose 109 H (74-99) mg/dL Calcium 8.5 (8.4-10.2) mg/dL AST 69 H (17-59) U/L ALT 70 H (4-49) U/L Alkaline Phosphatase 58 (38-126) U/L Total Protein 5.2 L (6.3-8.2) g/dL Albumin 2.9 L (3.5-5.0) g/dL Calcium panel 05/07/22 Range/Units 06:52 Calcium 8.5 (8.4-10.2) mg/dL Albumin 2.9 L (3.5-5.0) g/dL Pituitary panel 05/07/22 Range/Units 06:52 Sodium 136 L (137-145) mmol/L Potassium 4.2 (3.5-5.1) mmol/L Chloride 100 (98-107) mmol/L Carbon Dioxide 27 (22-30) mmol/L BUN 77 H (9-20) mg/dL Creatinine 1.48 H (0.66-1.25) mg/dL Glucose 109 H (74-99) mg/dL Calcium 8.5 (8.4-10.2) mg/dL Adrenal panel 05/07/22 Range/Units 06:52 Sodium 136 L (137-145) mmol/L Potassium 4.2 (3.5-5.1) mmol/L Chloride 100 (98-107) mmol/L Carbon Dioxide 27 (22-30) mmol/L BUN 77 H (9-20) mg/dL Creatinine 1.48 H (0.66-1.25) mg/dL Glucose 109 H (74-99) mg/dL Calcium 8.5 (8.4-10.2) mg/dL Total Bilirubin 1.1 (0.2-1.3) mg/dL AST 69 H (17-59) U/L ALT 70 H (4-49) U/L Alkaline Phosphatase 58 (38-126) U/L Total Protein 5.2 L (6.3-8.2) g/dL Albumin 2.9 L (3.5-5.0) g/dL
[2022-05-07] MEDS: ISOSORBIDE MONONITRATE ER 15 MG TAB PO SCH (14:07)
--- NOTE | 2022-05-07 14:26 | P.PN ---
Subjective Progress Note Date: 05/07/22 The patient is a 72-year-old male patient with a past medical history of coronary artery disease, severe mitral regurgitation, moderate tricuspid regurgitation, and a PFO, diabetes mellitus, hyperlipidemia, chronic tobacco dependence, and paroxysmal atrial fibrillation. The patient had an elective CABG x 3, MVR, MAZE procedure, and PFO closure with Dr. Raines on 04/19/22. Urology was initally consulted for urinary retention. Patient had his Mooney catheter removed on 04/27, his postvoid residual was greater than 400 mL and subsequently another Mooney was placed. He indicated he was able to void small amount urine, but was straining to void with a weak stream. Denies any dysuria or gross hematuria. At baseline denies any voiding dysfunction, indicates he empties his bladder completely. No previous history of urinary retention. No previous bladder or prostate surgeries. 05/07 Urology was asked to re-evaluate the patient Per nursing staff, the patient's Mooney catheter has been out for two days now. Yesterday he developed hematuria with bright red urine and clots. His Hgb has dropped significantly and is 6.2 today. However, his urine is now clear and yellow. He is also positive for occult blood. General surgery has been consulted regarding possible GI bleed and debridement of sacral wound. Objective - Vital Signs Vital signs: Vital Signs Temp 98.2 F 05/07/22 12:00 Pulse 61 05/07/22 14:00 Resp 23 05/07/22 14:00 BP 98/42 05/07/22 14:00 Pulse Ox 98 05/07/22 14:00 FiO2 100 04/22/22 16:00 Intake & Output 05/06/22 05/07/22 05/07/22 18:59 06:59 18:59 Intake Total 410 690 410 Output Total 1953 408 6963 Balance -716 40 -871 Weight 92.5 kg 92.5 kg Intake: IV 150 100 DAPTOmycin 360 mg In 50 Sodium Chloride 0.9% 50 ml @ 100 mls/hr IVPB Q24H [facility] Rx#:[id number] Piperacillin-Tazobactam 3 100 100 .375 gm In Sodium Chloride 0.9% 100 ml @ 25 mls/hr IVPB Q8HR [facility] Rx# :[id number] Intake, IV Titration 100 Amount Piperacillin-Tazobactam 3 100 .375 gm In Sodium Chloride 0.9% 100 ml @ 25 mls/hr IVPB Q8HR [facility] Rx# :[id number] Oral 540 Blood Product 310 310 Rc As-1 Unit 310 [id number] Rc As-1 Unit 310 [id number] Output: Urine 4891 819 1638 Post Void Residual 131 Stool 1 Other: Voiding Method Urinal Urinal Urinal # Voids 1 0 1 # Bowel Movements 1 1 ABP, PAP, CO, CI - Last Documented Arterial Blood Pressure 137/47 Pulmonary Artery Pressure 67/18 Cardiac Output 5.8 Cardiac Index 2.8 - Exam General: Well developed, well nourished. No acute distress. Chronically ill appearing HEENT: Head is atraumatic, normocephalic. Lungs: Respirations even and nonlabored. On 2Ll NC Abdomen/GI: Soft, no guarding, or rigidity. + epigastric tenderness. : No suprapubic tenderness. Skin: Warm and dry Neurologic: Awake, alert and oriented times 3. CN II-XII grossly intact. No focal deficits. Psychiatric: Appropriate mood and affect. - Labs CBC & Chem 7: 05/07/22 06:52 05/07/22 06:52 Labs: Abnormal Lab Results - Last 24 Hours (Table) 05/04/22 05/06/22 05/06/22 Range/Units 11:33 14:42 15:38 WBC 22.5 H (3.8-10.6) k/uL RBC 2.40 L (4.30-5.90) m/uL Hgb 6.7 L* (13.0-17.5) gm/dL Hct 22.0 L (39.0-53.0) % MCHC 30.4 L (31.0-37.0) g/dL RDW 18.7 H (11.5-15.5) % Neutrophils # 19.3 H (1.3-7.7) k/uL Lymphocytes # 0.8 L (1.0-4.8) k/uL Monocytes # 1.2 H (0-1.0) k/uL Sodium (137-145) mmol/L BUN (9-20) mg/dL Creatinine (0.66-1.25) mg/dL Glucose (74-99) mg/dL POC Glucose (mg/dL) (70-110) mg/dL AST (17-59) U/L ALT (4-49) U/L Total Protein (6.3-8.2) g/dL Albumin (3.5-5.0) g/dL Urine Protein Trace H (Negative) Urine Blood Moderate H (Negative) Urine RBC 17 H (0-5) /hpf Urine Bacteria Rare H (None) /hpf Urine Mucus Rare H (None) /hpf Crossmatch See Detail Blood Bank Comment Sent to Reference[facility] A Reference Lab Result See BBK REF Reports A 05/06/22 05/06/22 05/07/22 Range/Units 17:01 20:11 06:52 WBC 23.1 H (3.8-10.6) k/uL RBC 2.18 L (4.30-5.90) m/uL Hgb 6.2 L* (13.0-17.5) gm/dL Hct 20.5 L (39.0-53.0) % MCHC 30.4 L (31.0-37.0) g/dL RDW 19.5 H (11.5-15.5) % Neutrophils # (1.3-7.7) k/uL Lymphocytes # (1.0-4.8) k/uL Monocytes # (0-1.0) k/uL Sodium (137-145) mmol/L BUN (9-20) mg/dL Creatinine (0.66-1.25) mg/dL Glucose (74-99) mg/dL POC Glucose (mg/dL) 229 H 277 H (70-110) mg/dL AST (17-59) U/L ALT (4-49) U/L Total Protein (6.3-8.2) g/dL Albumin (3.5-5.0) g/dL Urine Protein (Negative) Urine Blood (Negative) Urine RBC (0-5) /hpf Urine Bacteria (None) /hpf Urine Mucus (None) /hpf Crossmatch Blood Bank Comment Reference Lab Result 05/07/22 05/07/22 05/07/22 Range/Units 06:52 07:15 11:21 WBC (3.8-10.6) k/uL RBC (4.30-5.90) m/uL Hgb (13.0-17.5) gm/dL Hct (39.0-53.0) % MCHC (31.0-37.0) g/dL RDW (11.5-15.5) % Neutrophils # (1.3-7.7) k/uL Lymphocytes # (1.0-4.8) k/uL Monocytes # (0-1.0) k/uL Sodium 136 L (137-145) mmol/L BUN 77 H (9-20) mg/dL Creatinine 1.48 H (0.66-1.25) mg/dL Glucose 109 H (74-99) mg/dL POC Glucose (mg/dL) 134 H 281 H (70-110) mg/dL AST 69 H (17-59) U/L ALT 70 H (4-49) U/L Total Protein 5.2 L (6.3-8.2) g/dL Albumin 2.9 L (3.5-5.0) g/dL Urine Protein (Negative) Urine Blood (Negative) Urine RBC (0-5) /hpf Urine Bacteria (None) /hpf Urine Mucus (None) /hpf Crossmatch Blood Bank Comment Reference Lab Result Microbiology - Last 24 Hours (Table) 05/03/22 05:54 Blood Culture - Preliminary Blood No Growth after 96 hours 05/06/22 14:42 Gram Stain - Preliminary Sputum Sputum Culture - Preliminary Assessment and Plan Assessment: The patient is seen sitting up in a chair. His is present. The patient reports being able to void without difficulty since removal of his catheter. He denies any dysuria. He feels as if he is emptying his bladder completely. His PVR today was 131ml. He complains of frequency, but is on a Lasix drip. His vitals are stable, he is also on a Dopamine drip. He states he had two black tarry stools yesterday. He has had a total of 6 PRBC's, 2 FFP, and 1 Platelet this admission and has ongoing issues with anemia. (1) Retention of urine Current Visit: Yes Status: Acute Code(s): R33.9 - RETENTION OF URINE, UNSPECIFIED SNOMED Code(s): 006887231 (2) Hematuria Current Visit: Yes Status: Acute Code(s): R31.9 - HEMATURIA, UNSPECIFIED SNOMED Code(s): 14819220 Plan: - Continue Flomax - Monitor urine for hematuria - Monitor Hgb - PVR as needed Impression and plan of care have been directed as dictated by the signing physician. Zahida Myrick nurse practitioner acting as scribe for signing physician. Zahida Myrick [facility] [id number] Email: [email or web address]
--- NOTE | 2022-05-07 14:57 | P.PN ---
Progress Note - Text Progress Note Date: 05/07/22 Patient is a pleasant 72-year-old male came in the for elective mitral valve repair, CABG x 3 vessel, maze procedure, PFO closure. Patient is extubated sitting in the chair patient still has a Sumner-Varghese catheter, CVP of around 12, cardiac index 3.1 patient creatinine went up to 1.70 resulting elevated potassium of 5.5 patient is off pressor support, off nitro drip patient still has 2 mediastinal and one left-sided chest tube. 04/21/2022 Patient is evaluated in ICU today, sitting up in chair. He is postoperative day #2 for elective mitral valve repair, hematocrit bypass grafting maze procedure and PFO closure. He is on BiPAP with fio2 of 40% Continues with mediastinal/left pleural chest tubes. Continue with indwelling catheter. Received dose of IV albumin yesterday afternoon. Chest xray today showing ongoing mild pulmonary vascular congestion, increasing patchy bibasilar opacities, atelectasis vs. pulmonary edema. Currently on lasix gtt at 10mls/hr, continues on dopamine gtt at 3.68 mls/hr. Continues on insulin gtt and blood glucose remains in the 140 to 130s. Labs today showing sodium 132, potassium 6.1 improved to 5.4, BUN 41, creatinine 2.53, elevated liver enzymes. Hgb 7.3. 04/22/2022 Patient continues to be monitored closely in intensive care unit, he is postoperative day #3 for elective mitral valve repair, maze procedure, PFO closure. Managed by primary team. He had limited echocardiogram completed showing EF 45 to 50%, mild to moderate MR, moderate pulmonary hypertension with moderate TR. Chest xray today shows slight improvement in pulmonary vascular congestion. Maintained on lasix gtt at 10mls/hr, dopamine gtt, Continues with 2 mediastinal chest tubes. Continues with indwelling catheter. Continues with right IJ swan/cordis, right radial arterial line. He has been weaned off BiPAP currently on high flow cannula at 15L. He has been tolerating some diet. Continues on insulin gtt which will continue until his diet stabilizes. Current glucose in the 140s. Creatinine today 3.14. April 23: I assumed care of patient today from [facility]. ICU. In a recliner. Tired. Little oral intake. Nasal cannula. Drips include IV dopamine and Lasix. Some shortness of breath. Mooney catheter. 04/24/2022: ICU. Up. 4 L nasal cannula. Did eat better. Edema present. On the Lasix drip 5 mg an hour. Some improvement in creatinine. 04/25/2022: ICU. Up in a recliner. Eating better. at the bedside. Edema present. Off Lasix drip. Feeling better. Creatinine coming down. LFTs improving. Home dose of Victoza was started 04/26/2022: ICU. Up in a recliner. 4 L nasal cannula. Eating about 50%. Accu-Cheks noted. 04/27/2022: ICU: Patient went into atrial fibrillation overnight. Put on oral amiodarone and Lopressor per CTS.. Some worsening of shortness of breath. Placed on IV Lasix. Eating some. Up in a recliner. 04/28/2022: ICU. Patient received Lopressor today for the A. fib. Patient went down into sinus rhythm. Blood pressure also dropped her was 70 systolic. Oxygen increased to 4 L. Short of breath. Patient did walk 10-12 steps up to the door. Eating fair. Lower extremity edema edema present. Up in a chair. Tired. 04/29/2022: ICU. Short of breath. 3 L nasal cannula. Eating fair. Edema pre sent. Getting Bumex. Getting IV albumin and IV calcium. Using incentive spirometry. Up in a chair. Discussed with at the bedside. Increasing white count, infiltrated urine chest x-ray suggestive of pneumonia. Started on IV cefepime 04/30/2022: ICU. Remains short of breath. 3 L nasal cannula. Started on IV cefepime yesterday.. Oral intake fair. Edema present. Remains on Bumex. Fo sher catheter. Discussed with patient and at the bedside. Discussed with Dr. Cortez from cardiothoracic surgery. 05/01/2022: ICU. Zaroxolyn was added. Good diuresis. Breathing better. On IV cefepime. Left paracentesis is done. 850 mL removed. Oral intake fair. Breathing a bit better. Telemetry shows sinus rhythm. 2 L nasal cannula. at the bedside. Will DC Actos. Even though smaller dose. Given CHF renal failure. Increase Lantus to 12 units. 05/02/2022: ICU. Over 3 is a negative fluid balance. Last 24 hours. Some improvement in breathing. Oral intake fair. Remains in atrial fibrillation controlled. 2 L nasal cannula. Add Diamox. 4 metabolic alkalosis 05/03/2022: ICU. This morning patient became short of breath. Dr. Chen from [facility] consulted for sacral decub. Remains on IV cefepime. Oral intake fair. Had a BM. On IV Bumex. I discussed with Dr. Aguilar from pulmonary. Patient is known to him. Advanced COPD. His right lung changes are chronic. Has had previous CAT scans. He may have had a located effusion. 05/04/2022: ICU. Breathing a bit better. Hemoglobin dropped to 6.1. Awaiting transfusion. Tolerating diet. On IV cefepime. Patient started on IV eraxis by Dr. Prescott from [facility]. 05 May 2022: ICU. Patient received a unit of blood yesterday evening. Getting another unit of blood today. Breathing better. Remains on IV Bumex. IV cefepime discontinued. Remains on IV Eraxis. Oral intake fair. Up in a chair. at the bedside. Increase Levemir to 20 units at night. 05/06/2022: ICU. Patient received a 3rd unit blood this morning. Breathing better. Had some blood in his urine. On 2 L is cannula. Sitting up in a chair, eating better. Some cough with brownish sputum. 05/07/2022: ICU. Up in a chair. Eating better. On 2 L nasal cannula. On IV daptomycin. IV Zosyn. Has had dark stools but is on iron. We'll hold off oral iron to see if stool color lightens. Add NovoLog 5 units scheduled with meals. Hemoglobin dropped again to 6.2. Received 1 unit of blood today. Active Medications Acetaminophen (Acetaminophen Tab 325 Mg Tab) 650 mg PO Q6HR PRN PRN Reason: Fever and/ or Pain Last Admin: 05/07/22 10:52 Dose: 650 mg Albuterol/Ipratropium (Ipratropium-Albuterol 3 Ml Neb) 3 ml INHALATION RT-Q2H PRN PRN Reason: Shortness Of Breath Or Wheezing Last Admin: 04/29/22 23:30 Dose: 3 ml Albuterol/Ipratropium (Ipratropium-Albuterol 3 Ml Neb) 3 ml INHALATION RT-QID [facility] Last Admin: 05/07/22 11:14 Dose: 3 ml Amiodarone HCl (Amiodarone 200 Mg Tab) 200 mg PO DAILY [facility] Stop: 05/11/22 10:00 Last Admin: 05/07/22 09:00 Dose: 200 mg Ascorbic Acid (Ascorbic Acid 500 Mg Tab) 500 mg PO DAILY [facility] Last Admin: 05/07/22 09:01 Dose: 500 mg Aspirin (Aspirin 325 Mg Tab) 325 mg PO DAILY [facility] Last Admin: 05/07/22 09:01 Dose: 325 mg Benzocaine/Menthol (Benzocaine/Menthol Lozeng 1 Each Lozenge) 1 each MUCOUS MEM Q2HR PRN PRN Reason: Sore Throat Last Admin: 05/02/22 15:04 Dose: 1 each Bisacodyl (Bisacodyl 10 Mg Supp) 10 mg RECTAL DAILY PRN PRN Reason: Constipation Last Admin: 05/07/22 09:00 Dose: 10 mg Budesonide/Formoterol Fumarate (Symbicort 160-4.5 Mcg Inhaler) 2 puff INHALATION RT-BID [facility] Last Admin: 05/07/22 08:09 Dose: Not Given Bumetanide (Bumetanide 0.25 Mg/Ml 10 Ml Vial) 2 mg IV DAILY [facility] Last Admin: 05/07/22 09:01 Dose: 2 mg Dextrose/Water (Dextrose 50% Syringe 50 Ml) 25 ml IVP PER PROTOCOL PRN; Protocol PRN Reason: Hypoglycemia Dextrose/Water (Dextrose 50% Syringe 50 Ml) 50 ml IVP PER PROTOCOL PRN; Protocol PRN Reason: Hypoglycemia Dextrose/Water (Dextrose 50% Syringe 50 Ml) 25 ml IVP PER PROTOCOL PRN; Protocol PRN Reason: Hypoglycemia Dextrose/Water (Dextrose 50% Syringe 50 Ml) 50 ml IVP PER PROTOCOL PRN; Protocol PRN Reason: Hypoglycemia Guaifenesin/Dextromethorphan (Guaifenesin-Dm 600/30mg 1 Each Tab.Er.12h) 1 each PO Q12HR [facility] Last Admin: 05/07/22 09:02 Dose: 1 each Calcium Gluconate/Sodium (Chloride 2 gm/ IV Solution) 100 mls @ 100 mls/hr IVPB ONCE PRN PRN Reason: Ionized Calcium less than 4.4 Stop: 05/19/22 23:00 Daptomycin 360 mg/ Sodium (Chloride) 50 mls @ 100 mls/hr IVPB Q24H [facility]; Protoco l Last Admin: 05/07/22 00:08 Dose: 100 mls/hr Piperacillin Sod/Tazobactam (Sod 3.375 gm/ Sodium Chloride) 100 mls @ 25 mls/hr IVPB Q8HR [facility]; Protocol Last Admin: 05/07/22 08:48 Dose: 25 mls/hr Insulin Aspart (Insulin Aspart (Novolog) 100 Unit/Ml Vial) 0 unit SQ ACHS [facility]; Protocol Last Admin: 05/07/22 12:14 Dose: 6 unit Insulin Aspart (Insulin Aspart (Novolog) 100 Unit/Ml Vial) 5 unit SQ AC-TID [facility] Insulin Detemir (Insulin Detemir (Levemir) 100 Unit/Ml Syr) 24 unit SQ HS [facility] Last Admin: 05/06/22 20:21 Dose: 24 unit Isosorbide Mononitrate (Isosorbide Mononitrate Er 15 Mg Tab) 15 mg PO DAILY@1200 [facility] Last Admin: 05/07/22 14:07 Dose: Not Given Lidocaine (Lidocaine 5% Patch) 2 patch TOPICAL DAILY [facility]; Protocol Last Admin: 05/07/22 10:41 Dose: 2 patch Magnesium Hydroxide (Magnesium Hydroxide 2,400 Mg/10 Ml Cup) 2,400 mg PO BID PRN PRN Reason: Constipation Last Admin: 04/22/22 07:08 Dose: 2,400 mg Metoprolol Tartrate (Metoprolol Tartrate 25 Mg Tab) 25 mg PO BID [facility] Last Admin: 05/07/22 09:00 Dose: 25 mg Miscellaneous Information (Potassium Replacement Protocol 1 Each Misc) 1 each MISCELLANE DAILY PRN; Protocol PRN Reason: Per Protocol Miscellaneous Information (Magnesium Replacement Protocol 1 Each Misc) 1 each MISCELLANE DAILY PRN; Protocol PRN Reason: Per Protocol Non-Formulary Medication (Non Formulary Drug) 1 each SQ DAILY [facility] Last Admin: 05/07/22 09:02 Dose: 1 each Ondansetron HCl (Ondansetron 4 Mg/2 Ml Vial) 4 mg IVP Q6HR PRN PRN Reason: Nausea And Vomiting Last Admin: 04/27/22 09:22 Dose: 4 mg Pantoprazole Sodium (Pantoprazole 40 Mg/10 Ml Vial) 40 mg IVP BID [facility] Last Admin: 05/07/22 09:02 Dose: 40 mg Potassium Chloride (Potassium Chloride Er 20 Meq Tab.Er) 20 meq PO DAILY [facility] Last Admin: 05/07/22 09:00 Dose: 20 meq Senna/Docusate Sodium (Sennosides-Docusate Sodium 1 Each Tab) 2 each PO HS [facility] Last Admin: 05/06/22 20:22 Dose: 2 each Sodium Chloride (Sodium Chloride 0.9% Flush 10 Ml Syringe) 10 ml IV BID [facility] Last Admin: 05/07/22 11:26 Dose: Not Given Tamsulosin HCl (Tamsulosin 0.4 Mg Cap.Er.24h) 0.4 mg PO PC-BRKFST [facility] Last Admin: 05/07/22 09:00 Dose: 0.4 mg On examination: VITAL SIGNS: 98.2, 60, 15, 90/63, 99% on 2 L GENERAL APPEARANCE: Up in chair, breathing better HEENT: Normal external appearance of nose and ear. Oral cavity normal EYES: Pupils equal. Conjunctiva normal. NECK: JVD not raised. Mass not palpable. RESPIRATORY: Respiratory effort increased. Lungs diminished breath sounds. CARDIOVASCULAR: First and second sounds normal. Edema present ABDOMEN: Soft. Liver and spleen not palpable. No tenderness. No mass palpable. Mooney catheter PSYCHIATRY: AO 3, mood and affect normal INVESTIGATIONS, reviewed in the clinical context: 05/07/2022: WBC 23.1 hemoglobin 6.2 platelets 334 potassium 4.2 BUN 77 creatinine 1.48 AST 69 ALT 70 05/06/2022: WBC 19.7 hemoglobin 6.2 platelets 322 potassium 3.8. 83 creatinine 1.50 05/05/2022: WBC 18.1 hemoglobin 6.7 potassium 4. 85 creatinine 1.46 05/04/2022: WBC 16 hemoglobin 6.1 platelets 362 potassium 3.7 BUN 75 creatinine 1.75 Limited 2-D echocardiogram [May 01]: EF 45%. [id number] MR, moderate aortic stenosis 05/01/2022: WBC 15.3 hemoglobin 7.2 platelets 305 potassium 4. [address] chest [April 29]: Moderate partial obliterate right pleural effusion, left pleural effusion, cardiomegaly. 04/24/2022: WBC 9.2 hemoglobin 7.1 platelets 122 potassium 5.1 BUN 77 creatinine 2.97 AST 1270 ALT 1038 WBC 8.2 hemoglobin 7.5 platelets 111 sodium 135 progression 6 BUN 67 creatinine 3.43 AST 3595 ALT 1512 Limited 2-D echocardiogram: EF 45-50%. Inferior wall hypokinesis. Moderate MR. Moderate pulmonary hypertension with moderate TR. Assessment and plan -Acute on chronic congestive heart exacerbation from systolic/diastolic dysfunction EF 45-50%:, precipitated by A. fib: Slow to respond IV Bumex 2 mg daily. -pneumonia, short of breath, infiltrate on chest x-ray, increasing white count and procalcitonin: Better IV cefepime-completed -Acute hypoxic respiratory failure from pulmonary edema/pneumonia: 2 L nasal cannula -Diabetes Mellitus type 2 , uncontrolled with hyperglycemia, Victoza , Actos-discontinue. Levemir 24 units daily at bedtime. Add 5 units NovoLog with meals -Paroxysmal atrial fibrillation status post modified Castanon-Maze procedure,: With rapid ventricular rate: Now - sinus rhythm amiodarone ,Lopressor. -Dark stools, with drop in hemoglobin. Patient is on ferrous sulfate Hold ferrous sulfate to see patient stools still remained dark. Has received 6 units of blood. -acute renal failure on chronic kidney disease stage II with renal failure is probably prerenal azotemia, cardiorenal syndrome.: Creatinine peaked at 3.43. Creatinine 1.46 -hyperkalemia secondary to acute renal failure: Corrected Received Lokelma. Renal diet -Acute hepatitis, likely ischemic: Better Follow closely. GI services not available in the hospital. Hold any hepatic offensive medications. Follow LFTs patient as patient started back on amiodarone -Acute COPD exacerbation, in a smoker DuoNeb. Symbicort -Hyperlipidemia Lipitor -Sacral decubitus ulcer: Stage II Follow with/Dr. Chen -Metabolic alkalosis from diuresis Diamox - coronary artery disease with previous PCI Aspirin, Lasix, Imdur, Lopressor -Acute postprocedure blood loss anemia as expected from surgery, also hospital- acquired anemia from blood draws 5 units of PRBC, follow CBC. -Chronic nicotine dependence - post mitral valve failure, status post CABG, status post PFO closure: Radha arnett [id number] MR -Moderate aortic stenosis -Moderate secondary pulmonary hypertension Oxygen. IV Bumex. IV daptomycin, IV Zosyn. Patient received 6th unit of blood today. We'll stop ferrous sulfate for now. General surgery consulted to look at possible debridement of sacral decub wound. Discussed with patient and
[2022-05-07 16:25] LABS: Anisocytosis Slight; Basophils # (A) 0.1 k/uL (0-0.2); Basophils % (A) 0 %; Eosinophils # (A) 0.5 k/uL (0-0.7); Eosinophils % (A) 3 %; HCT 21.6 % (39.0-53.0); Hypochromasia Marked; Lymphocytes # (A) 0.7 k/uL (1.0-4.8); Lymphocytes % (A) 5 %; MCH 28.7 pg (25.0-35.0); MCV 95.7 fL (80.0-100.0); Macrocytosis Slight; Mean Platelet Volume 8.7; Monocytes % (A) 6 %; Neutrophils # (A) 13.9 k/uL (1.3-7.7); Neutrophils % (A) 84 %; Platelet Count 285 k/uL (150-450); Poikilocytosis Slight; RBC 2.26 m/uL (4.30-5.90); WBC 16.5 k/uL (3.8-10.6)
[2022-05-07 16:34] LABS: HGB 6.5 gm/dL (13.0-17.5)
[2022-05-07 16:50] LABS: Glucose,Whole Blood 241 mg/dL (70-110)
[2022-05-07] MEDS: SENNOSIDES-DOCUSATE SODIUM 1 EACH TAB PO SCH (20:28)
[2022-05-07 20:30] LABS: Glucose,Whole Blood 239 mg/dL (70-110)
[2022-05-07] MEDS: INSULIN DETEMIR (LEVEMIR) 100 UNIT/ML SYR SQ SCH (21:05)
[2022-05-08 06:39] LABS: Glucose,Whole Blood 200 mg/dL (70-110)
[2022-05-08] MEDS: INSULIN ASPART (NovoLOG) 100 UNIT/ML VIAL SQ SCH ×7 (06:44→20:25)
[2022-05-08 06:46] LABS: Anisocytosis Slight; Hypochromasia Marked; MCH 29.8 pg (25.0-35.0); MCHC 31.4 g/dL (31.0-37.0); MCV 95.1 fL (80.0-100.0); Macrocytosis Slight; Mean Platelet Volume 8.3; Platelet Count 257 k/uL (150-450); Poikilocytosis Slight; RBC 1.97 m/uL (4.30-5.90); RDW 18.9 % (11.5-15.5); WBC 14.9 k/uL (3.8-10.6)
[2022-05-08 07:00] LABS: Magnesium 2.4 mg/dL (1.6-2.3); Potassium 3.9 mmol/L (3.5-5.1)
[2022-05-08 07:03] LABS: HGB 5.9 gm/dL (13.0-17.5)
[2022-05-08 07:04] LABS: HCT 18.8 % (39.0-53.0)
--- NOTE | 2022-05-08 07:39 | P.PN ---
Subjective Progress Note Date: 05/08/22 Principal diagnosis: Status post CABG The patient is a 72-year-old gentleman who is status post CABG as well as mitral valve repair with surgery complicated by recurrent pleural effusion. 05/07/2022 The patient was seen this morning. He is overall stable from a perivascular st andpoint of view. He is not on any vasopressors at this point. He does have history of hematuria but that seems to be cleared this morning. Currently he is on aspirin. He does have also history of paroxysmal atrial fibrillation and he was receiving oral anticoagulation which was stopped. May [id number] The patient was seen and evaluated this morning. He remains stable from a cardiovascular standpoint of view. His hemoglobin this morning is 5.9 and he is in process of having one unit of packed RBC to be transfused. He was seen by the urology service and currently antiplatelet beside aspirin and anticoagulation are on hold. Objective - Vital Signs Vital signs: Vital Signs Temp 98 F 05/08/22 04:00 Pulse 63 05/08/22 07:00 Resp 12 05/08/22 07:00 BP 101/39 05/08/22 07:00 Pulse Ox 97 05/08/22 07:00 FiO2 100 04/22/22 16:00 Intake & Output 05/07/22 05/08/22 05/08/22 18:59 06:59 18:59 Intake Total 1260 175 Output Total 1631 1225 0 Balance -371 -1050 0 Weight 92.5 kg 90.6 kg Intake: IV 150 175 DAPTOmycin 360 mg In 50 Sodium Chloride 0.9% 50 ml @ 100 mls/hr IVPB Q24H [facility] Rx#:[id number] Piperacillin-Tazobactam 3 150 125 .375 gm In Sodium Chloride 0.9% 100 ml @ 25 mls/hr IVPB Q8HR [facility] Rx# :[id number] Oral 800 Blood Product 310 Rc As-1 Unit 310 [id number] Output: Urine 1500 1225 0 Post Void Residual 131 Other: Voiding Method Urinal Urinal # Voids 1 0 # Bowel Movements 1 ABP, PAP, CO, CI - Last Documented Arterial Blood Pressure 137/47 Pulmonary Artery Pressure 67/18 Cardiac Output 5.8 Cardiac Index 2.8 - Constitutional General appearance: Present: no acute distress - Respiratory Respiratory: bilateral: CTA - Cardiovascular Rhythm: regular - Labs CBC & Chem 7: 05/08/22 05:27 05/08/22 05:27 Labs: Abnormal Lab Results - Last 24 Hours (Table) 05/04/22 05/07/22 05/07/22 Range/Units 11:33 06:52 06:52 WBC 23.1 H (3.8-10.6) k/uL RBC 2.18 L (4.30-5.90) m/uL Hgb 6.2 L* (13.0-17.5) gm/dL Hct 20.5 L (39.0-53.0) % MCHC 30.4 L (31.0-37.0) g/dL RDW 19.5 H (11.5-15.5) % Neutrophils # (1.3-7.7) k/uL Lymphocytes # (1.0-4.8) k/uL Sodium 136 L (137-145) mmol/L BUN 77 H (9-20) mg/dL Creatinine 1.48 H (0.66-1.25) mg/dL Glucose 109 H (74-99) mg/dL POC Glucose (mg/dL) (70-110) mg/dL Calcium (8.4-10.2) mg/dL Magnesium (1.6-2.3) mg/dL AST 69 H (17-59) U/L ALT 70 H (4-49) U/L Total Protein 5.2 L (6.3-8.2) g/dL Albumin 2.9 L (3.5-5.0) g/dL Crossmatch See Detail Blood Bank Comment Sent to [facility] A Reference Lab Result See BBK REF Reports A 05/07/22 05/07/22 05/07/22 Range/Units 11:21 15:27 15:27 WBC 16.5 H (3.8-10.6) k/uL RBC 2.26 L (4.30-5.90) m/uL Hgb 6.5 L* (13.0-17.5) gm/dL Hct 21.6 L (39.0-53.0) % MCHC 30.0 L (31.0-37.0) g/dL RDW 19.0 H (11.5-15.5) % Neutrophils # 13.9 H (1.3-7.7) k/uL Lymphocytes # 0.7 L (1.0-4.8) k/uL Sodium (137-145) mmol/L BUN (9-20) mg/dL Creatinine (0.66-1.25) mg/dL Glucose (74-99) mg/dL POC Glucose (mg/dL) 281 H (70-110) mg/dL Calcium (8.4-10.2) mg/dL Magnesium (1.6-2.3) mg/dL AST (17-59) U/L ALT (4-49) U/L Total Protein (6.3-8.2) g/dL Albumin (3.5-5.0) g/dL Crossmatch See Detail Blood Bank Comment Reference Lab Result 05/07/22 05/07/22 05/07/22 Range/Units 16:49 18:25 20:28 WBC (3.8-10.6) k/uL RBC (4.30-5.90) m/uL Hgb (13.0-17.5) gm/dL Hct (39.0-53.0) % MCHC (31.0-37.0) g/dL RDW (11.5-15.5) % Neutrophils # (1.3-7.7) k/uL Lymphocytes # (1.0-4.8) k/uL Sodium (137-145) mmol/L BUN (9-20) mg/dL Creatinine (0.66-1.25) mg/dL Glucose (74-99) mg/dL POC Glucose (mg/dL) 241 H 239 H (70-110) mg/dL Calcium (8.4-10.2) mg/dL Magnesium (1.6-2.3) mg/dL AST (17-59) U/L ALT (4-49) U/L Total Protein (6.3-8.2) g/dL Albumin (3.5-5.0) g/dL Crossmatch See Detail Blood Bank Comment Sent to [facility] A Reference Lab Result 05/08/22 05/08/22 05/08/22 Range/Units 05:27 05:27 06:37 WBC 14.9 H (3.8-10.6) k/uL RBC 1.97 L (4.30-5.90) m/uL Hgb 5.9 L* (13.0-17.5) gm/dL Hct 18.8 L* (39.0-53.0) % MCHC (31.0-37.0) g/dL RDW 18.9 H (11.5-15.5) % Neutrophils # (1.3-7.7) k/uL Lymphocytes # (1.0-4.8) k/uL Sodium (137-145) mmol/L BUN 68 H (9-20) mg/dL Creatinine 1.48 H (0.66-1.25) mg/dL Glucose 140 H (74-99) mg/dL POC Glucose (mg/dL) 200 H (70-110) mg/dL Calcium 8.0 L (8.4-10.2) mg/dL Magnesium 2.4 H (1.6-2.3) mg/dL AST (17-59) U/L ALT (4-49) U/L Total Protein (6.3-8.2) g/dL Albumin (3.5-5.0) g/dL Crossmatch Blood Bank Comment Reference Lab Result Microbiology - Last 24 Hours (Table) 05/03/22 05:54 Blood Culture - Preliminary Blood No Growth after 96 hours 05/06/22 14:42 Gram Stain - Preliminary Sputum Sputum Culture - Preliminary Assessment and Plan Assessment: Assessment #1 status post CABG and mitral valve repair #2 paroxysmal atrial fibrillation #3 recurrent pleural effusion #4 hematuria #5 anemia Plan Agree about holding anticoagulation at this point Continue aspirin Continue monitor the hemoglobin Follow-up with the patient
[2022-05-08] MEDS: SYMBICORT 160-4.5 MCG INHALER INHALATION SCH ×2 (08:08→20:45)
[2022-05-08] MEDS: IPRATROPIUM-ALBUTEROL 3 ML NEB INHALATION SCH ×4 (08:08→20:45)
[2022-05-08] MEDS: PIPERACILLIN-TAZOBACTAM 3.375 GM in SODIUM CHLORIDE 0.9% 100 ML IVPB SCH ×3 (08:17→23:45)
--- NOTE | 2022-05-08 08:22 | P.PN ---
Subjective Progress Note Date: 05/08/22 Principal diagnosis: Severe mitral valve regurgitation, coronary artery disease, paroxysmal atrial fibrillation, patent foramen ovale, tricuspid regurgitation, chronic systolic congestive heart failure. Previous medical history of hypertension, hyperlipidemia, coronary artery disease with history of previous PCI, non-ST elevated myocardial infarction in November 2021, ischemic cardiomyopathy with EF 40- 45%, right internal carotid stenosis 50-79%, renal insufficiency, anemia with history of GI bleed in November 2021 S/P transfusion PRBCs, diabetes mellitus type 2, osteoarthritis, severe COPD, chronic ongoing nicotine dependence, remote history of pneumonia, chronic low back pain and hearing disorder. Nasal swab positive for MSSA preoperative POD #19 Mitral valve repair with 28 mm physio-2 ring, CABG 3 with saphenous vein grafts to first diagonal, obtuse marginal, posterior descending coronary arteries, closure of PFO, endovascular vein harvest, modified Castanon maze procedure with full left-sided lesion set and ligation of the left atrial appendage, SCOTT by anesthesia. Protamine reaction intraoperative Postoperative acute blood loss anemia, expected given his history of anemia, hemodilution and cardiopulmonary bypass Acute on chronic kidney failure, likely from hypotension from intraoperative protamine reaction Elevated transaminases, likely from hypotension from intraoperative protamine reaction Left pleural effusion, status post left-sided thoracentesis with removal of [address] Aguilar on 04/30/22 and again on 05/04/22 for 550 mL fluid Leukocytosis, afebrile, CRP and pro-calcitonin trending down, sputum culture negative, no pneumonia, no UTI, blood culture preliminary negative, likely due to sacral stage II ulcer The patient was seen and examined this morning sitting up in a recliner in the intensive care unit in no acute distress. Currently in sinus rhythm, hemodynamically stable. Currently on 2 L nasal cannula with oxygen saturation in the high 90s, able to achieve 1000 mL on his incentive spirometer. States pain is controlled on current medication regimen, pain is generally with coughing and to his coccyx. Sacral decubitus ulcer stage II-III present due to lack of mobility. Labs and chest x-ray reviewed. Received another unit packed red blood cells yesterday, hemoglobin 5.9 again this morning, will receive another unit PRBCs. Patient undergo EGD today by general surgery as well as debridement of sacral decubitus. He does appear more pale this morning. States he's had no more stools since yesterday. Iron stopped by internal medicine. WBC trending down this morning, cultures remain negative. Continues on Daptom ycin, Zosyn per Dr. Chen. Blood sugars remain uncontrolled in the 200s. Objective - Vital Signs Vital signs: Vital Signs Temp 98.4 F 05/08/22 08:00 Pulse 60 05/08/22 08:08 Resp 11 L 05/08/22 08:00 BP 125/58 05/08/22 08:00 Pulse Ox 99 05/08/22 08:00 FiO2 100 04/22/22 16:00 Intake & Output 05/07/22 05/08/22 05/08/22 18:59 06:59 18:59 Intake Total 1260 175 0 Output Total 1631 1225 200 Balance -371 -1050 -200 Weight 92.5 kg 90.6 kg Intake: IV 150 175 DAPTOmycin 360 mg In 50 Sodium Chloride 0.9% 50 ml @ 100 mls/hr IVPB Q24H ZULMA Rx#:[id number] Piperacillin-Tazobactam 3 150 125 .375 gm In Sodium Chloride 0.9% 100 ml @ 25 mls/hr IVPB Q8HR ZULMA Rx# :[id number] Oral 800 Blood Product 310 0 Unit 0 Rc As-1 Unit 310 [id number] Output: Urine 1500 1225 200 Post Void Residual 131 Other: Voiding Method Urinal Urinal # Voids 1 0 # Bowel Movements 1 ABP, PAP, CO, CI - Last Documented Arterial Blood Pressure 137/47 Pulmonary Artery Pressure 67/18 Cardiac Output 5.8 Cardiac Index 2.8 - Exam CONSTITUTIONAL: Appears mostly comfortable, cooperative, very hard of hearing, appears more pale this morning RESPIRATORY: Lungs sounds diminished bilaterally. Respirations even, nonlabored. Currently on 2 L high flow nasal cannula with oxygen saturation 99%. Able to achieve 1000 mL on incentive spirometry. Strong nonproductive cough. CARDIOVASCULAR: S1, S2 present. Regular rate and rhythm, sinus rhythm on telemetry. Sternum stable. Palpable peripheral pulses bilaterally. Bilateral lower extremity edema present. No calf pain or tenderness noted. Heart hugger in place. Antiembolism stockings, SCDs present. GASTROINTESTINAL: Abdomen soft, nontender, nondistended. Active bowel sounds present 4 quadrants. Currently NPO for endoscopy. Positive bowel movement 05/07 GENITOURINARY: Continues to void, output 2425 mL in the last 24 hours INTEGUMENTARY: Skin is warm and dry, pale. Anterior chest incision well approximated. Bilateral EVH site well approximated. Stage II-III present to sacrum covered with opti-foam NEUROLOGIC: Cranial nerves II through XII intact MUSKULOSKELETAL: Able to move all extremities, strength equal bilaterally PSYCHIATRIC: Oriented to person place and time - Allied health notes Allied health notes reviewed: nursing - Labs CBC & Chem 7: 05/08/22 05:27 05/08/22 05:27 Labs: Abnormal Lab Results - Last 24 Hours (Table) 05/04/22 05/07/22 05/07/22 Range/Units 11:33 11:21 15:27 WBC 16.5 H (3.8-10.6) k/uL RBC 2.26 L (4.30-5.90) m/uL Hgb 6.5 L* (13.0-17.5) gm/dL Hct 21.6 L (39.0-53.0) % MCHC 30.0 L (31.0-37.0) g/dL RDW 19.0 H (11.5-15.5) % Neutrophils # 13.9 H (1.3-7.7) k/uL Lymphocytes # 0.7 L (1.0-4.8) k/uL BUN (9-20) mg/dL Creatinine (0.66-1.25) mg/dL Glucose (74-99) mg/dL POC Glucose (mg/dL) 281 H (70-110) mg/dL Calcium (8.4-10.2) mg/dL Magnesium (1.6-2.3) mg/dL Crossmatch See Detail Blood Bank Comment Sent to ReferenceLab A Reference Lab Result See BBK REF Reports A 05/07/22 05/07/22 05/07/22 Range/Units 15:27 16:49 18:25 WBC (3.8-10.6) k/uL RBC (4.30-5.90) m/uL Hgb (13.0-17.5) gm/dL Hct (39.0-53.0) % MCHC (31.0-37.0) g/dL RDW (11.5-15.5) % Neutrophils # (1.3-7.7) k/uL Lymphocytes # (1.0-4.8) k/uL BUN (9-20) mg/dL Creatinine (0.66-1.25) mg/dL Glucose (74-99) mg/dL POC Glucose (mg/dL) 241 H (70-110) mg/dL Calcium (8.4-10.2) mg/dL Magnesium (1.6-2.3) mg/dL Crossmatch See Detail See Detail Blood Bank Comment Sent to ReferenceLab A Reference Lab Result 05/07/22 05/08/22 05/08/22 Range/Units 20:28 05:27 05:27 WBC 14.9 H (3.8-10.6) k/uL RBC 1.97 L (4.30-5.90) m/uL Hgb 5.9 L* (13.0-17.5) gm/dL Hct 18.8 L* (39.0-53.0) % MCHC (31.0-37.0) g/dL RDW 18.9 H (11.5-15.5) % Neutrophils # (1.3-7.7) k/uL Lymphocytes # (1.0-4.8) k/uL BUN 68 H (9-20) mg/dL Creatinine 1.48 H (0.66-1.25) mg/dL Glucose 140 H (74-99) mg/dL POC Glucose (mg/dL) 239 H (70-110) mg/dL Calcium 8.0 L (8.4-10.2) mg/dL Magnesium 2.4 H (1.6-2.3) mg/dL Crossmatch Blood Bank Comment Reference Lab Result 05/08/22 Range/Units 06:37 WBC (3.8-10.6) k/uL RBC (4.30-5.90) m/uL Hgb (13.0-17.5) gm/dL Hct (39.0-53.0) % MCHC (31.0-37.0) g/dL RDW (11.5-15.5) % Neutrophils # (1.3-7.7) k/uL Lymphocytes # (1.0-4.8) k/uL BUN (9-20) mg/dL Creatinine (0.66-1.25) mg/dL Glucose (74-99) mg/dL POC Glucose (mg/dL) 200 H (70-110) mg/dL Calcium (8.4-10.2) mg/dL Magnesium (1.6-2.3) mg/dL Crossmatch Blood Bank Comment Reference Lab Result Microbiology - Last 24 Hours (Table) 05/03/22 05:54 Blood Culture - Preliminary Blood No Growth after 96 hours 05/06/22 14:42 Gram Stain - Preliminary Sputum Sputum Culture - Preliminary - Imaging and Cardiology Chest x-ray: image reviewed Assessment and Plan Assessment: 1. Severe mitral valve regurgitation, status post mitral valve repair 2. Coronary artery disease, previous PCI, previous non-STEMI, status post CABG 3 3. History of paroxysmal atrial fibrillation, previous cardioversion, on [facility] outpatient for anticoagulation, status post modified Castanon maze and ligation of left atrial appendage 4. Patent foramen ovale, status post closure 5. Tricuspid regurgitation 6. Chronic systolic congestive heart failure, ischemic cardiomyopathy with EF 40-45% 7. History of hypertension 8. History hyperlipidemia, treated, cholesterol 150, LDL 72 9. Right internal carotid stenosis 50-79% 10. Anemia with history of GI bleed in November 2021 S/P transfusion PRBCs 11. Acute on chronic renal failure, baseline creatinine 1.28-1.6 12. Diabetes mellitus type 2, preoperative hemoglobin A1c 5.6% 13. Osteoarthritis 14. Severe COPD, preoperative FEV1 41% of predicted 15. Chronic ongoing nicotine dependence 16. Remote history of pneumonia 17. Chronic low back pain, hearing disorder 18. Nasal swab positive for MSSA preoperative 19. Postoperative acute blood loss anemia, expected 20. Elevated transaminases 21. Protamine reaction intraoperative 22. Leukocytosis, afebrile, CRP and pro-calcitonin trending down, sputum culture negative, no pneumonia, no UTI, likely due to sacral stage II ulcer 23. Medical debility, generalized weakness 24. Stage II-III decubitus to his buttocks 25. Small left-sided pleural effusion, status post left-sided thoracentesis on 04/30/2022 26. Urinary retention possibly secondary to constipation Plan: 1. Continue full dose aspirin, beta siomara, low dose Imdur. Statin discontinued by Dr. Chen 2. Continue amiodarone. Anticoagulation discontinued 3. Hold bumex today 4. Wean O2 as tolerated. Encourage incentive spirometry 10 times every hour while awake. Bronchodilators per pulmonology 5. Increase activity, ambulate as tolerated. PT/OT/cardiac rehab following 6. Will monitor daily labs and chest x-rays. Electrolyte replacement per protocol. Will transfuse 1 unit packed red blood cells today, patient does have antibodies making it difficult to get blood 7. GI/DVT prophylaxis. 8. Insulin management per primary care service. Patient is a diabetic with a preoperative hemoglobin A1c of 5.6% on multiple oral medications, needs tighter blood sugar control as blood sugars remained in the 200s 9. Pain control with current medication regimen. Avoid narcotics 10. Continue Flomax 11. Strict accurate intake and output. Daily weights. 12. Dr. Chen consulted due to leukocytosis. Continue daptomycin, Zosyn. UA negative, sputum culture negative, blood cultures preliminary negative. CRP, pro-calcitonin trending down. Remains afebrile 13. Smoking cessation counseling and education provided to patient and family 14. Medihoney ordered for sacral decubitus per Dr. Chen 15. Patient to go for EGD and sacral decubitus debridement today by Dr. Cardenas 16. More recommendations to follow based on patient's clinical course.
--- NOTE | 2022-05-08 08:48 | XR ---
EXAMINATION TYPE: XR chest 1V portable DATE OF EXAM: 05/08/2022 Comparison: 05/07/2022 Clinical History: 72-year-old male post cardiac surgery Findings: Median sternotomy wires with an annuloplasty ring. Mild to moderate cardiomegaly. Interstitial promin ence persists. Continued small right pleural effusion with adjacent right basilar opacity. Suture anc hors both humeral heads from prior cuff repair loss of the subacromial space on the right suggest rot ator cuff re-tear. Impression: Cardiomegaly and pulmonary vascular congestion persists. Likely background COPD. Ongoing small right pleural effusion with adjacent atelectasis and/or consolidation.
[2022-05-08] MEDS: LIDOCAINE 5% PATCH TOPICAL SCH (09:17)
[2022-05-08] MEDS: METOPROLOL TARTRATE 25 MG TAB PO SCH (09:18)
[2022-05-08] MEDS: PANTOPRAZOLE 40 MG/10 ML VIAL IVP SCH ×2 (09:18→21:00)
[2022-05-08] MEDS: ASCORBIC ACID 500 MG TAB PO SCH (09:19)
[2022-05-08] MEDS: TAMSULOSIN 0.4 MG CAP.ER.24H PO SCH (09:19)
[2022-05-08] MEDS: guaiFENesin-DM 600/30MG 1 EACH TAB.ER.12H PO SCH ×2 (09:19→20:33)
[2022-05-08] MEDS: AMIODARONE 200 MG TAB PO SCH (09:19)
[2022-05-08] MEDS: ASPIRIN 325 MG TAB PO SCH (09:20)
--- NOTE | 2022-05-08 10:03 | P.PN ---
Subjective Progress Note Date: 05/08/22 Principal diagnosis: Status post CABG. This is a pleasant 72-year-old male patient with a known history of osteoarthritis was multiple orthopedic surgeries, diabetes mellitus, hyp erlipidemia, chronic tobacco dependence, paroxysmal atrial fibrillation. He was recently found to have coronary artery disease with a total occlusion of the RCA with collateral circulation, obtuse marginal with 99% stenosis and mild LAD disease. His ejection fraction is 45%. He was also found to have severe mitral regurgitation, moderate central tricuspid regurgitation as well as evidence of a PFO with [id number] shunt. He was recommended coronary artery bypass grafting and valvular repair. He was brought in to the hospital yesterday 04/20/2022 for an elective procedure. He did undergo mitral valve repair, coronary bypass grafting 3 with an SVG to the first diagonal, obtuse marginal and posterior descending coronary arteries, closure of a PFO, modified Castanon-Maze procedure and litigation of the left atrial appendage. He was successfully extubated within the 6 hour protocol. He is seen today in consultation in the intensive care unit. He is ready sitting up in a chair. Awake and alert in no acute distress. He is maintaining O2 saturation in the 90s on 3 L/m per nasal cannula. He has insulin drip at 5 units per hour. Lactated Ringer's at 20 miles per hour. He initially was on epinephrine drip that has been discontinued. He did receive 2 units of packed red blood cells, 2 units of fresh frozen plasma and 1 unit of platelets. White count 8.9. Hemoglobin 7.7. Platelets 139,000. Sodium 142. Potassium 5.5. Chloride 111. Bicarb 23. BUN 32. Creatinine 1.73. Glucose 125. AST 1:30. ALT 37. Magnesium 3.6. Mean arterial blood pressure in the 70s. PA pressures 50/18. CVP 12. Cardiac output 6.5. Cardiac index 3.1. He is on bronchodilators. Working well with the incentive spirometer. Chest x-ray reveals scattered opacities bilaterally. No evidence of pleural effusion, focal consolidation or pneumothorax. Mediastinal 2, left pleural chest tube in place. He is continued on oral amiodarone. Heparin for DVT prophylaxis. The patient is seen today in 04/21/2022 in follow-up in the intensive care unit. He is currently sitting up in a recliner at the bedside. Maintaining O2 saturations on 5 L/m per nasal cannula. He did require BiPAP support last evening and was placed on 14/10 and 100% FiO2 eventually decreased to 40%. He is currently on a Lasix drip at 5 mg per hour. Dopamine drip at 2 mcg/kg/m. Cardiac output 4.6. Cardiac index 2.2. He is dual pacing. He has normal saline at 20 ML's per hour. He is unemployed about 750 MLS on the incentive spirometer. His x-ray continues to show cardiomegaly with ongoing mild pulmonary vascular congestion. Increasing patchy bibasilar opacities/atelectasis. Right IJ [place] catheter remains in place. He is sternal and left sided chest tubes remain in place. No pneumothorax. White count 9.6. Hemoglobin 7.3. Platelets 144. Sodium 132. Potassium 5.4. Bicarb 21. BUN 41. Creatinine 2.53. Glucose 175. AST 1309. ALT 547. Albumin 3.6. The patient does have a cyst the year smoking history. He remains on DuoNeb inhalations 4 times a day and when necessary. Heparin for DVT prophylaxis. Progress note dated 04/22/2022. 72-year-old male, who is currently seen in room 267. He's postop day #3. The patient's currently on 8 L high flow oxygen. He is getting dopamine at 2 mcg/kg/m, a Lasix drip at 10 mg an hour, insulin at 1.5 units an hour, and saline at 20 mL an hour. Labs today include a white count of 8.5, hemoglobin 7.4, hematocrit 23.3, and a platelet count of 135,000. Sodium 131, potassium 5.8, chlorides 102, CO2 23, BUN 51, and creatinine 3.1. AST was 2217. ALT is 1006. Chest x-ray shows cardiomegaly, and pulmonary vascular congestion. Reevaluated today on 05/05/22, remains in the ICU, remains marginal at best. Today the patient is feeling a bit better, and he would likely feel even better once he gets another unit of packed RBCs continues to have low hemoglobin. Chest x-ray showed minimal atelectasis, no clear-cut evidence of congestive he art failure. Patient is sitting at a bedside chair, he is on 2 L nasal cannula, able to achieve about 1000 mL via incentive spirometry. No pain, no discomfort, continues to have a sacral decubitus ulcer stage II3. Hemoglobin today is 6.7, was 6.1 yesterday, and he will receive another unit of packed RBCs today. Reevaluated today on 05/06/22, remains in the ICU, patient is doing well, requiring another unit of packed RBCs today, patient is having hematuria, and that's going to be addressed by urology which was consulted. Pulmonary-arboleda is about the same, remains on 2 L nasal cannula, chest x-ray is showing evidence of interstitial edema and small tiny left-sided and right-sided pleural effusions, not large enough to consider thoracentesis at this point yet. He remained generally weak and short of breath with any activity. Hemoglobin today is 6.2, WBC count is 19.7, patient was placed on daptomycin and Eraxis empirically by infectious disease on the case. All cultures have been nondiagnostic so far including blood pleural effusion cultures and sputum cultures. Patient does hav e a sacral decubitus ulcer that may be causing his leukocytosis Progress note dated 05/07/2022. 72-year-old male status post four-vessel bypass grafting, mitral valve repair, and Castanon-Maze procedure. The patient is currently on 2 L of oxygen. Not receiving any IV fluids. He, he's had problems with anemia, he is receiving his sixth unit of blood. Surgery was consulted. White count 23.1, hemoglobin 6.2, hematocrit 20.5, and platelet count 334,000. Sodium 136, potassium 4.2, chlorides 100, due to 27, anion gap 9, BUN 77, and creatinine 1.48. Chest x-ray shows cardiomegaly, and small right pleural effusion. Progress note dated 05/08/2022. 72-year-old male, status post four-vessel bypass grafting, mitral valve repair, and Castanon-Maze procedure. The patient is seen again in room 267, in the intensive care unit. He's on 2 L of oxygen. He is on no IV fluids. Because of ongoing anemia, the patient is receiving his 7 unit of packed red blood cells. He is scheduled for an EGD today. White count 14.9, hemoglobin 5.9, hematocrit 18.8, and platelet count 257,000. Sodium 137, potassium 3.9, chlorides 105, CO2 29, BUN 68, and creatinine 1.48. Chest x-ray show some cardiomegaly, and some mild pulmonary vascular congestion. Chest x-ray is largely unchanged. Objective - Vital Signs Vital signs: Vital Signs Temp 97.8 F 05/08/22 09:45 Pulse 367 H 05/08/22 09:45 Resp 23 05/08/22 09:45 BP 105/48 05/08/22 09:45 Pulse Ox 97 05/08/22 09:45 FiO2 100 04/22/22 16:00 Intake & Output 05/07/22 05/08/22 05/08/22 18:59 06:59 18:59 Intake Total 1260 175 310 Output Total 1631 1225 200 Balance -371 -1050 110 Weight 92.5 kg 90.6 kg Intake: IV 150 175 DAPTOmycin 360 mg In 50 Sodium Chloride 0.9% 50 ml @ 100 mls/hr IVPB Q24H ZULMA Rx#:[id number] Piperacillin-Tazobactam 3 150 125 .375 gm In Sodium Chloride 0.9% 100 ml @ 25 mls/hr IVPB Q8HR ZULMA Rx# :[id number] Oral 800 Blood Product 310 310 Rc As-1 Unit 310 [id number] Rc As-1 Unit 310 [id number] Output: Urine 1500 1225 200 Post Void Residual 131 Other: Voiding Method Urinal Urinal Urinal # Voids 1 0 # Bowel Movements 1 ABP, PAP, CO, CI - Last Documented Arterial Blood Pressure 137/47 Pulmonary Artery Pressure 67/18 Cardiac Output 5.8 Cardiac Index 2.8 - Exam No acute distress, oriented 3. No audible wheezing, use of accessory muscles, or conversational dyspnea. The patient looks pale. The patient remains on 2 L of oxygen. HEENT examination is grossly unremarkable. Neck supple. Full range of motion. No adenopathy thyromegaly or neck vein distention. Cardiovascular examination reveals regular rhythm rate. S1-S2 normal. No S3 or S4. No discernible murmur noted. Heart rate is 67 bpm. Heart sounds are distant. Lungs reveal scattered bilateral rhonchi. Crackles at the bases. No wheezes. Breath sounds are equal bilaterally. Saturations are 97 %. Abdomen soft bowel sounds are heard. No masses or tenderness. Extremities are intact. No cyanosis clubbing or edema. Skin is without rash or lesion. Neurologic examination is brief but nonfocal. - Labs CBC & Chem 7: 05/08/22 05:27 05/08/22 05:27 Labs: Abnormal Lab Results - Last 24 Hours (Table) 05/04/22 05/07/22 05/07/22 Range/Units 11:33 11:21 15:27 WBC 16.5 H (3.8-10.6) k/uL RBC 2.26 L (4.30-5.90) m/uL Hgb 6.5 L* (13.0-17.5) gm/dL Hct 21.6 L (39.0-53.0) % MCHC 30.0 L (31.0-37.0) g/dL RDW 19.0 H (11.5-15.5) % Neutrophils # 13.9 H (1.3-7.7) k/uL Lymphocytes # 0.7 L (1.0-4.8) k/uL BUN (9-20) mg/dL Creatinine (0.66-1.25) mg/dL Glucose (74-99) mg/dL POC Glucose (mg/dL) 281 H (70-110) mg/dL Calcium (8.4-10.2) mg/dL Magnesium (1.6-2.3) mg/dL Crossmatch See Detail Blood Bank Comment Sent to ReferenceLab A Reference Lab Result See BBK REF Reports A 05/07/22 05/07/22 05/07/22 Range/Units 15:27 16:49 18:25 WBC (3.8-10.6) k/uL RBC (4.30-5.90) m/uL Hgb (13.0-17.5) gm/dL Hct (39.0-53.0) % MCHC (31.0-37.0) g/dL RDW (11.5-15.5) % Neutrophils # (1.3-7.7) k/uL Lymphocytes # (1.0-4.8) k/uL BUN (9-20) mg/dL Creatinine (0.66-1.25) mg/dL Glucose (74-99) mg/dL POC Glucose (mg/dL) 241 H (70-110) mg/dL Calcium (8.4-10.2) mg/dL Magnesium (1.6-2.3) mg/dL Crossmatch See Detail See Detail Blood Bank Comment Sent to ReferenceLab A Reference Lab Result 05/07/22 05/08/22 05/08/22 Range/Units 20:28 05:27 05:27 WBC 14.9 H (3.8-10.6) k/uL RBC 1.97 L (4.30-5.90) m/uL Hgb 5.9 L* (13.0-17.5) gm/dL Hct 18.8 L* (39.0-53.0) % MCHC (31.0-37.0) g/dL RDW 18.9 H (11.5-15.5) % Neutrophils # (1.3-7.7) k/uL Lymphocytes # (1.0-4.8) k/uL BUN 68 H (9-20) mg/dL Creatinine 1.48 H (0.66-1.25) mg/dL Glucose 140 H (74-99) mg/dL POC Glucose (mg/dL) 239 H (70-110) mg/dL Calcium 8.0 L (8.4-10.2) mg/dL Magnesium 2.4 H (1.6-2.3) mg/dL Crossmatch Blood Bank Comment Reference Lab Result 05/08/22 Range/Units 06:37 WBC (3.8-10.6) k/uL RBC (4.30-5.90) m/uL Hgb (13.0-17.5) gm/dL Hct (39.0-53.0) % MCHC (31.0-37.0) g/dL RDW (11.5-15.5) % Neutrophils # (1.3-7.7) k/uL Lymphocytes # (1.0-4.8) k/uL BUN (9-20) mg/dL Creatinine (0.66-1.25) mg/dL Glucose (74-99) mg/dL POC Glucose (mg/dL) 200 H (70-110) mg/dL Calcium (8.4-10.2) mg/dL Magnesium (1.6-2.3) mg/dL Crossmatch Blood Bank Comment Reference Lab Result Microbiology - Last 24 Hours (Table) 05/03/22 05:54 Blood Culture - Preliminary Blood No Growth after 120 hours 05/06/22 14:42 Gram Stain - Preliminary Sputum Sputum Culture - Preliminary Assessment and Plan Assessment: Coronary artery disease with valvular heart disease. Status post mitral valve repair, coronary bypass grafting 3 with an SVG to the first diagonal, obtuse marginal and posterior descending coronary arteries, closure of a PFO, modified Castanon-Maze procedure and litigation of the left atrial appendage. Postoperative day #19. Acute hypoxemic respiratory failure secondary to above. Currently on 2 L of oxygen. Paroxysmal atrial fibrillation. Chronic and ongoing tobacco dependence. Chronic obstructive pulmonary disease, FEV1 value of 52% of predicted. Acute on chronic anemia, status post 7 units packed red blood cells. Osteoarthritis. Diabetes mellitus. Hyperlipidemia. Plan: Plan dated 04/22/2022. The patient will absolutely not wearing the BiPAP device. The patient is on dopamine, Lasix drip, and insulin drip. Today is postop day #3. Labs, x-rays, and medications are reviewed. The patient's overall prognosis remains guarded. We will continue to follow and make recommendations along the way. The patient continues on DVT and GI prophylaxis. He continues on breathing treatments. Prognosis is guarded. Plan dated 05/07/2022. The patient is receiving his sixth unit of blood. Surgery has been consulted for his ongoing anemia, and suspected GI bleed. We will continue to follow this patient and make recommendations along the way. Labs, x-rays, and medications are reviewed. Clinically, the patient looks reasonable, but pale. He's been weaned down to 2 L of oxygen. Prognosis is guarded. Plan dated 05/08/2022. The patient is currently receiving his seventh unit of blood. He is scheduled for an EGD today. He's on 2 L of oxygen. No IV fluids. The patient's overall prognosis remains very guarded. We will continue to follow make recommendations along the way. Labs, x-rays, and medications are all reviewed. Time with Patient: Less than 30
[2022-05-08] MEDS: NON FORMULARY DRUG SQ SCH (11:36)
[2022-05-08 11:38] LABS: Glucose,Whole Blood 153 mg/dL (70-110)
[2022-05-08] MEDS ORDERED: fentaNYL (PF) 50 MCG/ML 2 ML AMP ONE (13:20)
[2022-05-08] MEDS ORDERED: LIDOCAINE 2% INJ 20 MG/ML (2 ML VIAL) ONE (13:20)
[2022-05-08] MEDS ORDERED: LACTATED RINGERS 1,000 ML IV ONE (13:20)
[2022-05-08] MEDS ORDERED: PROPOFOL 10 MG/ML 20 ML VIAL IV ONE (13:20)
[2022-05-08] MEDS: POTASSIUM CHLORIDE ER 20 MEQ TAB.ER PO SCH (14:19)
--- NOTE | 2022-05-08 15:52 | P.OP ---
Date of Procedure: 05/08/22 Procedure(s) Performed: PREOPERATIVE DIAGNOSIS: GI bleed, sacral decubitus ulcer POSTOPERATIVE DIAGNOSIS: duodenitis, hiatal hernia, distal esophagitis, infected sacral decubitus ulcer with abscess PROCEDURE: incision and drainage and debridement sacral decubitus ulcer with sacral wound abscess, EGD SURGEON: Ronald EBL: 10 mL ANESTHESIA: sedation COMPLICATIONS: None OPERATIVE PROCEDURE: patient placed in the left decubitus position. The sacral region was prepped and draped sterilely. The necrotic skin was removed. An underlying abscess cavity was encountered. The necrotic skin, subcutaneous fat, and necrotic fascia was debrided and excised sharply using a scalpel and a curet. This was an excisional debridement. Small areas of bleeding were controlled using electrocautery. Wound was irrigated with saline. Wound was then packed with saline moistened Kerlix roll and overlying sterile gauze. Wound measured 12 x 10 cm with a depth of 4 cm. Next the Olympus gastroscope was inserted into the oropharynx and passed to the third to fourth portion of the duodenum. There was no blood present within the esophagus or stomach. The first and second portion of the duodenum appeared free of any blood however once we reached the third and fourth portion of the duodenum there was some fresh blood seen. Some clots were noted in the irrigated. No identifiable bleeding was seen there. There were no arteriovenous malformations encountered. The proximal duodenum appeared normal. There was no significant gastritis. The patient did have mild distal esophagitis and a small hiatal hernia seen. The remainder the esophagus appeared normal. DISPOSITION: begin local wound care to the sacral wound. 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 Will try to obtain previous endoscopy records.
[2022-05-08] MEDS: ISOSORBIDE MONONITRATE ER 15 MG TAB PO SCH (15:56)
[2022-05-08 16:17] LABS: Anisocytosis Slight; Hypochromasia Marked; MCH 30.3 pg (25.0-35.0); MCHC 31.1 g/dL (31.0-37.0); MCV 97.3 fL (80.0-100.0); Macrocytosis Slight; Mean Platelet Volume 8.4; Platelet Count 233 k/uL (150-450); Poikilocytosis Moderate; RBC 2.26 m/uL (4.30-5.90); RDW 18.2 % (11.5-15.5); WBC 17.9 k/uL (3.8-10.6)
[2022-05-08 16:20] LABS: HGB 6.8 gm/dL (13.0-17.5)
[2022-05-08 17:40] LABS: Glucose,Whole Blood 220 mg/dL (70-110)
--- NOTE | 2022-05-08 20:08 | P.PN ---
Progress Note - Text Progress Note Date: 05/08/22 Patient is a pleasant 72-year-old male came in the for elective mitral valve repair, CABG x 3 vessel, maze procedure, PFO closure. Patient is extubated sitting in the chair patient still has a Belk-Varghese catheter, CVP of around 12, cardiac index 3.1 patient creatinine went up to 1.70 resulting elevated potassium of 5.5 patient is off pressor support, off nitro drip patient still has 2 mediastinal and one left-sided chest tube. 04/21/2022 Patient is evaluated in ICU today, sitting up in chair. He is postoperative day #2 for elective mitral valve repair, hematocrit bypass grafting maze procedure and PFO closure. He is on BiPAP with fio2 of 40% Continues with mediastinal/left pleural chest tubes. Continue with indwelling catheter. Received dose of IV albumin yesterday afternoon. Chest xray today showing ongoing mild pulmonary vascular congestion, increasing patchy bibasilar opacities, atelectasis vs. pulmonary edema. Currently on lasix gtt at 10mls/hr, continues on dopamine gtt at 3.68 mls/hr. Continues on insulin gtt and blood glucose remains in the 140 to 130s. Labs today showing sodium 132, potassium 6.1 improved to 5.4, BUN 41, creatinine 2.53, elevated liver enzymes. Hgb 7.3. 04/22/2022 Patient continues to be monitored closely in intensive care unit, he is postoperative day #3 for elective mitral valve repair, maze procedure, PFO closure. Managed by primary team. He had limited echocardiogram completed showing EF 45 to 50%, mild to moderate MR, moderate pulmonary hypertension with moderate TR. Chest xray today shows slight improvement in pulmonary vascular congestion. Maintained on lasix gtt at 10mls/hr, dopamine gtt, Continues with 2 mediastinal chest tubes. Continues with indwelling catheter. Continues with right IJ swan/cordis, right radial arterial line. He has been weaned off BiPAP currently on high flow cannula at 15L. He has been tolerating some diet. Continues on insulin gtt which will continue until his diet stabilizes. Current glucose in the 140s. Creatinine today 3.14. April 23: I assumed care of patient today from [facility]. ICU. In a recliner. Tired. Little oral intake. Nasal cannula. Drips include IV dopamine and Lasix. Some shortness of breath. Mooney catheter. 04/24/2022: ICU. Up. 4 L nasal cannula. Did eat better. Edema present. On the Lasix drip 5 mg an hour. Some improvement in creatinine. 04/25/2022: ICU. Up in a recliner. Eating better. at the bedside. Edema present. Off Lasix drip. Feeling better. Creatinine coming down. LFTs improving. Home dose of Victoza was started 04/26/2022: ICU. Up in a recliner. 4 L nasal cannula. Eating about 50%. Accu-Cheks noted. 04/27/2022: ICU: Patient went into atrial fibrillation overnight. Put on oral amiodarone and Lopressor per CTS.. Some worsening of shortness of breath. Placed on IV Lasix. Eating some. Up in a recliner. 04/28/2022: ICU. Patient received Lopressor today for the A. fib. Patient went down into sinus rhythm. Blood pressure also dropped her was 70 systolic. Oxygen increased to 4 L. Short of breath. Patient did walk 10-12 steps up to the door. Eating fair. Lower extremity edema edema present. Up in a chair. Tired. 04/29/2022: ICU. Short of breath. 3 L nasal cannula. Eating fair. Edema pre sent. Getting Bumex. Getting IV albumin and IV calcium. Using incentive spirometry. Up in a chair. Discussed with at the bedside. Increasing white count, infiltrated urine chest x-ray suggestive of pneumonia. Started on IV cefepime 04/30/2022: ICU. Remains short of breath. 3 L nasal cannula. Started on IV cefepime yesterday.. Oral intake fair. Edema present. Remains on Bumex. Fo sher catheter. Discussed with patient and at the bedside. Discussed with Dr. Cortez from cardiothoracic surgery. 05/01/2022: ICU. Zaroxolyn was added. Good diuresis. Breathing better. On IV cefepime. Left paracentesis is done. 850 mL removed. Oral intake fair. Breathing a bit better. Telemetry shows sinus rhythm. 2 L nasal cannula. at the bedside. Will DC Actos. Even though smaller dose. Given CHF renal failure. Increase Lantus to 12 units. 05/02/2022: ICU. Over 3 is a negative fluid balance. Last 24 hours. Some improvement in breathing. Oral intake fair. Remains in atrial fibrillation controlled. 2 L nasal cannula. Add Diamox. 4 metabolic alkalosis 05/03/2022: ICU. This morning patient became short of breath. Dr. Chen from [place] consulted for sacral decub. Remains on IV cefepime. Oral intake fair. Had a BM. On IV Bumex. I discussed with Dr. Aguilar from pulmonary. Patient is known to him. Advanced COPD. His right lung changes are chronic. Has had previous CAT scans. He may have had a located effusion. 05/04/2022: ICU. Breathing a bit better. Hemoglobin dropped to 6.1. Awaiting transfusion. Tolerating diet. On IV cefepime. Patient started on IV eraxis by Dr. Prescott from [place]. 05 May 2022: ICU. Patient received a unit of blood yesterday evening. Getting another unit of blood today. Breathing better. Remains on IV Bumex. IV cefepime discontinued. Remains on IV Eraxis. Oral intake fair. Up in a chair. at the bedside. Increase Levemir to 20 units at night. 05/06/2022: ICU. Patient received a 3rd unit blood this morning. Breathing better. Had some blood in his urine. On 2 L is cannula. Sitting up in a chair, eating better. Some cough with brownish sputum. 05/07/2022: ICU. Up in a chair. Eating better. On 2 L nasal cannula. On IV daptomycin. IV Zosyn. Has had dark stools but is on iron. We'll hold off oral iron to see if stool color lightens. Add NovoLog 5 units scheduled with meals. Hemoglobin dropped again to 6.2. Received 1 unit of blood today. 05/08/2022: ICU. Seen by me this morning. Hemoglobin further dropped again. 5.9. Data patient underwent EGD by Dr. Fiore. Fresh blood seen in the third and fourth portion of duodenum of blood clots noted. No obvious source noted. Patient is on PPI. Also sacral decub ulcer abscess also drained. Patient received a unit of blood this morning. Discussed with Neema from cardiothoracic team. Patient does not like hospital food. has been free eating food from outside. Including [employer] fish [employer] etc. Difficult to control Accu- Cheks. Concerned the patient may become hypoglycemic if a more aggressive. farxiga is being added. Active Medications Acetaminophen (Acetaminophen Tab 325 Mg Tab) 650 mg PO Q6HR PRN PRN Reason: Fever and/ or Pain Last Admin: 05/07/22 20:28 Dose: 650 mg Albuterol/Ipratropium (Ipratropium-Albuterol 3 Ml Neb) 3 ml INHALATION RT-Q2H PRN PRN Reason: Shortness Of Breath Or Wheezing Last Admin: 04/29/22 23:30 Dose: 3 ml Albuterol/Ipratropium (Ipratropium-Albuterol 3 Ml Neb) 3 ml INHALATION RT-QID [facility] Last Admin: 05/08/22 15:50 Dose: Not Given Amiodarone HCl (Amiodarone 200 Mg Tab) 200 mg PO DAILY [facility] Stop: 05/11/22 10:00 Last Admin: 05/08/22 09:19 Dose: 200 mg Ascorbic Acid (Ascorbic Acid 500 Mg Tab) 500 mg PO DAILY [facility] Last Admin: 05/08/22 09:19 Dose: 500 mg Aspirin (Aspirin 325 Mg Tab) 325 mg PO DAILY [facility] Last Admin: 05/08/22 09:20 Dose: Not Given Benzocaine/Menthol (Benzocaine/Menthol Lozeng 1 Each Lozenge) 1 each MUCOUS MEM Q2HR PRN PRN Reason: Sore Throat Last Admin: 05/02/22 15:04 Dose: 1 each Bisacodyl (Bisacodyl 10 Mg Supp) 10 mg RECTAL DAILY PRN PRN Reason: Constipation Last Admin: 05/07/22 09:00 Dose: 10 mg Budesonide/Formoterol Fumarate (Symbicort 160-4.5 Mcg Inhaler) 2 puff INHALATION RT-BID [facility] Last Admin: 05/08/22 08:08 Dose: 2 puff Dapagliflozin (Dapagliflozin Propanediol 5 Mg Tablet) 5 mg PO DAILY [facility] Dextrose/Water (Dextrose 50% Syringe 50 Ml) 25 ml IVP PER PROTOCOL PRN; Protocol PRN Reason: Hypoglycemia Dextrose/Water (Dextrose 50% Syringe 50 Ml) 50 ml IVP PER PROTOCOL PRN; Prot ocol PRN Reason: Hypoglycemia Dextrose/Water (Dextrose 50% Syringe 50 Ml) 25 ml IVP PER PROTOCOL PRN; Protocol PRN Reason: Hypoglycemia Dextrose/Water (Dextrose 50% Syringe 50 Ml) 50 ml IVP PER PROTOCOL PRN; Protocol PRN Reason: Hypoglycemia Guaifenesin/Dextromethorphan (Guaifenesin-Dm 600/30mg 1 Each Tab.Er.12h) 1 each PO Q12HR [facility] Last Admin: 05/08/22 09:19 Dose: 1 each Daptomycin 360 mg/ Sodium (Chloride) 50 mls @ 100 mls/hr IVPB Q24H [facility]; Protocol Last Admin: 05/07/22 23:23 Dose: 100 mls/hr Piperacillin Sod/Tazobactam (Sod 3.375 gm/ Sodium Chloride) 100 mls @ 25 mls/hr IVPB Q8HR [facility]; Protocol Last Admin: 05/08/22 16:38 Dose: 25 mls/hr Insulin Aspart (Insulin Aspart (Novolog) 100 Unit/Ml Vial) 0 unit SQ ACHS [facility]; Protocol Last Admin: 05/08/22 17:49 Dose: 4 unit Insulin Aspart (Insulin Aspart (Novolog) 100 Unit/Ml Vial) 5 unit SQ AC-TID [facility] Last Admin: 05/08/22 17:49 Dose: 5 unit Insulin Detemir (Insulin Detemir (Levemir) 100 Unit/Ml Syr) 24 unit SQ HS [facility] Last Admin: 05/07/22 21:05 Dose: 24 unit Isosorbide Mononitrate (Isosorbide Mononitrate Er 15 Mg Tab) 15 mg PO DAILY@1200 [facility] Last Admin: 05/08/22 15:56 Dose: Not Given Lidocaine (Lidocaine 5% Patch) 2 patch TOPICAL DAILY [facility]; Protocol Last Admin: 05/08/22 09:17 Dose: 2 patch Magnesium Hydroxide (Magnesium Hydroxide 2,400 Mg/10 Ml Cup) 2,400 mg PO BID PRN PRN Reason: Constipation Last Admin: 04/22/22 07:08 Dose: 2,400 mg Metoprolol Tartrate (Metoprolol Tartrate 25 Mg Tab) 25 mg PO BID [facility] Last Admin: 05/08/22 09:18 Dose: 25 mg Miscellaneous Information (Potassium Replacement Protocol 1 Each Misc) 1 each MISCELLANE DAILY PRN; Protocol PRN Reason: Per Protocol Miscellaneous Information (Magnesium Replacement Protocol 1 Each Misc) 1 each MISCELLANE DAILY PRN; Protocol PRN Reason: Per Protocol Non-Formulary Medication (Non Formulary Drug) 1 each SQ DAILY [facility] Last Admin: 05/08/22 11:36 Dose: 1 each Ondansetron HCl (Ondansetron 4 Mg/2 Ml Vial) 4 mg IVP Q6HR PRN PRN Reason: Nausea And Vomiting Last Admin: 04/27/22 09:22 Dose: 4 mg Pantoprazole Sodium (Pantoprazole 40 Mg/10 Ml Vial) 40 mg IVP BID [facility] Last Admin: 05/08/22 09:18 Dose: 40 mg Potassium Chloride (Potassium Chloride Er 20 Meq Tab.Er) 20 meq PO DAILY [facility] Last Admin: 05/08/22 14:19 Dose: Not Given Senna/Docusate Sodium (Sennosides-Docusate Sodium 1 Each Tab) 2 each PO HS [facility] Last Admin: 05/07/22 20:28 Dose: 2 each Sodium Chloride (Sodium Chloride 0.9% Flush 10 Ml Syringe) 10 ml IV BID [facility] Last Admin: 05/08/22 09:20 Dose: 10 ml Tamsulosin HCl (Tamsulosin 0.4 Mg Cap.Er.24h) 0.4 mg PO PC-BRKFST [facility] Last Admin: 05/08/22 09:19 Dose: 0.4 mg On examination: VITAL SIGNS: 97.8, 62, 14, 105/48, 95% on 2 L GENERAL APPEARANCE: Up in chair, breathing better HEENT: Normal external appearance of nose and ear. Oral cavity normal EYES: Pupils equal. Conjunctiva normal. NECK: JVD not raised. Mass not palpable. RESPIRATORY: Respiratory effort increased. Lungs diminished breath sounds. CARDIOVASCULAR: First and second sounds normal. Edema present ABDOMEN: Soft. Liver and spleen not palpable. No tenderness. No mass palpable. Mooney catheter PSYCHIATRY: AO 3, mood and affect normal INVESTIGATIONS, reviewed in the clinical context: 05/08/2022: WBC 14.9 hemoglobin 5.9 platelets 27 BUN 68 creatinine 1.48 05/07/2022: WBC 23.1 hemoglobin 6.2 platelets 334 potassium 4.2 BUN 77 creatinine 1.48 AST 69 ALT 70 05/06/2022: WBC 19.7 hemoglobin 6.2 platelets 322 potassium 3.8. 83 creatinine 1.50 05/05/2022: WBC 18.1 hemoglobin 6.7 potassium 4. 85 creatinine 1.46 05/04/2022: WBC 16 hemoglobin 6.1 platelets 362 potassium 3.7 BUN 75 creatinine 1.75 Limited 2-D echocardiogram [May 01]: EF 45%. [id number]-wa-ulrgdzla MR, moderate aortic stenosis 05/01/2022: WBC 15.3 hemoglobin 7.2 platelets 305 potassium 4. [address] chest [April 29]: Moderate partial obliterate right pleural effusion, left pleural effusion, cardiomegaly. 04/24/2022: WBC 9.2 hemoglobin 7.1 platelets 122 potassium 5.1 BUN 77 creatinine 2.97 AST 1270 ALT 1038 WBC 8.2 hemoglobin 7.5 platelets 111 sodium 135 progression 6 BUN 67 creatinine 3.43 AST 3595 ALT 1512 Limited 2-D echocardiogram: EF 45-50%. Inferior wall hypokinesis. Moderate MR. Moderate pulmonary hypertension with moderate TR. Assessment and plan -Acute on chronic congestive heart exacerbation from systolic/diastolic dysfunction EF 45-50%:, precipitated by A. fib: Slow to respond IV Bumex 2 mg daily. -pneumonia, short of breath, infiltrate on chest x-ray, increasing white count and procalcitonin: Better IV cefepime-completed -Acute hypoxic respiratory failure from pulmonary edema/pneumonia: 2 L nasal cannula -Diabetes Mellitus type 2 , uncontrolled with hyperglycemia, Victoza , Actos-discontinue. Levemir 24 units daily at bedtime. Add 5 units NovoLog with meals -Paroxysmal atrial fibrillation status post modified Castanon-Maze procedure,: With rapid ventricular rate: Now - sinus rhythm amiodarone ,Lopressor. -Acute GI bleed from the third and fourth portion of duodenum. EGD encountered fresh blood with blood clots. No obvious source noted. Patient is on aspirin. Patient has required 5 units of blood loss 4 days. We are limited in terms of expertise in terms of further endoscopy correction of the same. Patient may need to go to a higher level of care where enteroscope/additi onal means to look down in the duodenum to close off source of bleeding. This was discussed with Dr. Fiore. He will discuss this with the cardiothoracic team. -acute renal failure on chronic kidney disease stage II with renal failure is probably prerenal azotemia, cardiorenal syndrome.: Creatinine peaked at 3.43. Creatinine 1.46 -hyperkalemia secondary to acute renal failure: Corrected Received Lokelma. Renal diet -Acute hepatitis, likely ischemic: Better Follow closely. GI services not available in the hospital. Hold any hepatic offensive medications. Follow LFTs patient as patient started back on amiodarone -Acute COPD exacerbation, in a smoker DuoNeb. Symbicort -Hyperlipidemia Lipitor -Sacral decubitus ulcer: With abscess. Large abscess was encountered. 12 x 10 x 4 cm deep. Cleaned out by Dr. Fiore. Follow with ID. -Metabolic alkalosis from diuresis Diamox - coronary artery disease with previous PCI Aspirin, Lasix, Imdur, Lopressor -Acute postprocedure blood loss anemia as expected from surgery, also hospital- acquired anemia from blood draws 5 units of PRBC, follow CBC. -Chronic nicotine dependence - post mitral valve failure, status post CABG, status post PFO closure: Currently [id number] MR -Moderate aortic stenosis -Moderate secondary pulmonary hypertension Patient received a unit of blood this morning. Active bleeding from the third portion of duodenum. No exact source found. Sacral large decubitus ulcer was I&D by Dr. Fiore. Follow H&H closely. Antibiotics PPI to continue.
[2022-05-08 20:20] LABS: Glucose,Whole Blood 144 mg/dL (70-110)
[2022-05-08] MEDS: SENNOSIDES-DOCUSATE SODIUM 1 EACH TAB PO SCH (20:34)
[2022-05-08] MEDS: INSULIN DETEMIR (LEVEMIR) 100 UNIT/ML SYR SQ SCH (20:45)
--- NOTE | 2022-05-09 00:48 | P.PN ---
Subjective Progress Note Date: 05/07/22 Principal diagnosis: Leukocytosis Patient is a 72-year-old male electively admitted to the hospital 04/19/2022 for mitral valve repair and coronary bypass grafting 3 and this patient has been afebrile however noticed to have worsening leukocytosis. On today's evaluation that is 05/07/2022, the patient continues to be afebrile, the patient is breathing comfortably on 2 L nasal cannula oxygen, the patient denies any chest pain the patient did have occasional cough no sputum production no nausea no vomiting no abdominal pain still complaining of pain to the sacral wound area Objective - Vital Signs Vital signs: Vital Signs Temp 98.2 F 05/07/22 12:00 Pulse 60 05/07/22 12:00 Resp 18 05/07/22 12:00 BP 108/63 05/07/22 12:00 Pulse Ox 99 05/07/22 12:00 FiO2 100 04/22/22 16:00 Intake & Output 05/06/22 05/07/22 05/07/22 18:59 06:59 18:59 Intake Total 410 690 410 Output Total 1235 056 0792 Balance -716 40 -871 Weight 92.5 kg 92.5 kg Intake: IV 150 100 DAPTOmycin 360 mg In 50 Sodium Chloride 0.9% 50 ml @ 100 mls/hr IVPB Q24H [facility] Rx#:[id number] Piperacillin-Tazobactam 3 100 100 .375 gm In Sodium Chloride 0.9% 100 ml @ 25 mls/hr IVPB Q8HR [facility] Rx# :[id number] Intake, IV Titration 100 Amount Piperacillin-Tazobactam 3 100 .375 gm In Sodium Chloride 0.9% 100 ml @ 25 mls/hr IVPB Q8HR [facility] Rx# :[id number] Oral 540 Blood Product 310 310 Rc As-1 Unit 310 [id number] Rc As-1 Unit 310 [id number] Output: Urine 6754 667 6277 Post Void Residual 131 Stool 1 Other: Voiding Method Urinal Urinal Urinal # Voids 1 0 1 # Bowel Movements 1 1 ABP, PAP, CO, CI - Last Documented Arterial Blood Pressure 137/47 Pulmonary Artery Pressure 67/18 Cardiac Output 5.8 Cardiac Index 2.8 - Exam GENERAL DESCRIPTION: An elderly male up in the chair in no distress RESPIRATORY SYSTEM: Unlabored breathing , decreased breath sounds at bases HEART: S1 S2 regular rate and rhythm , ABDOMEN: Soft , no tenderness Stages the sacral pressure ulcer with a black esher and surrounding redness some foul-smelling EXTREMITIES: 2+ edema feet - Labs CBC & Chem 7: 05/08/22 15:41 05/08/22 05:27 Labs: Abnormal Lab Results - Last 24 Hours (Table) 05/04/22 05/06/22 05/06/22 Range/Units 11:33 14:42 15:38 WBC 22.5 H (3.8-10.6) k/uL RBC 2.40 L (4.30-5.90) m/uL Hgb 6.7 L* (13.0-17.5) gm/dL Hct 22.0 L (39.0-53.0) % MCHC 30.4 L (31.0-37.0) g/dL RDW 18.7 H (11.5-15.5) % Neutrophils # 19.3 H (1.3-7.7) k/uL Lymphocytes # 0.8 L (1.0-4.8) k/uL Monocytes # 1.2 H (0-1.0) k/uL Sodium (137-145) mmol/L BUN (9-20) mg/dL Creatinine (0.66-1.25) mg/dL Glucose (74-99) mg/dL POC Glucose (mg/dL) (70-110) mg/dL AST (17-59) U/L ALT (4-49) U/L Total Protein (6.3-8.2) g/dL Albumin (3.5-5.0) g/dL Urine Protein Trace H (Negative) Urine Blood Moderate H (Negative) Urine RBC 17 H (0-5) /hpf Urine Bacteria Rare H (None) /hpf Urine Mucus Rare H (None) /hpf Crossmatch See Detail Blood Bank Comment Sent to [facility] A Reference Lab Result See BBK REF Reports A 05/06/22 05/06/22 05/07/22 Range/Units 17:01 20:11 06:52 WBC 23.1 H (3.8-10.6) k/uL RBC 2.18 L (4.30-5.90) m/uL Hgb 6.2 L* (13.0-17.5) gm/dL Hct 20.5 L (39.0-53.0) % MCHC 30.4 L (31.0-37.0) g/dL RDW 19.5 H (11.5-15.5) % Neutrophils # (1.3-7.7) k/uL Lymphocytes # (1.0-4.8) k/uL Monocytes # (0-1.0) k/uL Sodium (137-145) mmol/L BUN (9-20) mg/dL Creatinine (0.66-1.25) mg/dL Glucose (74-99) mg/dL POC Glucose (mg/dL) 229 H 277 H (70-110) mg/dL AST (17-59) U/L ALT (4-49) U/L Total Protein (6.3-8.2) g/dL Albumin (3.5-5.0) g/dL Urine Protein (Negative) Urine Blood (Negative) Urine RBC (0-5) /hpf Urine Bacteria (None) /hpf Urine Mucus (None) /hpf Crossmatch Blood Bank Comment Reference Lab Result 05/07/22 05/07/22 05/07/22 Range/Units 06:52 07:15 11:21 WBC (3.8-10.6) k/uL RBC (4.30-5.90) m/uL Hgb (13.0-17.5) gm/dL Hct (39.0-53.0) % MCHC (31.0-37.0) g/dL RDW (11.5-15.5) % Neutrophils # (1.3-7.7) k/uL Lymphocytes # (1.0-4.8) k/uL Monocytes # (0-1.0) k/uL Sodium 136 L (137-145) mmol/L BUN 77 H (9-20) mg/dL Creatinine 1.48 H (0.66-1.25) mg/dL Glucose 109 H (74-99) mg/dL POC Glucose (mg/dL) 134 H 281 H (70-110) mg/dL AST 69 H (17-59) U/L ALT 70 H (4-49) U/L Total Protein 5.2 L (6.3-8.2) g/dL Albumin 2.9 L (3.5-5.0) g/dL Urine Protein (Negative) Urine Blood (Negative) Urine RBC (0-5) /hpf Urine Bacteria (None) /hpf Urine Mucus (None) /hpf Crossmatch Blood Bank Comment Reference Lab Result Microbiology - Last 24 Hours (Table) 05/03/22 05:54 Blood Culture - Preliminary Blood No Growth after 96 hours 05/06/22 14:42 Gram Stain - Preliminary Sputum Sputum Culture - Preliminary Assessment and Plan (1) Leukocytosis Current Visit: Yes Status: Acute Code(s): D72.829 - ELEVATED WHITE BLOOD CELL COUNT, UNSPECIFIED SNOMED Code(s): 609691033 Plan: 1patient with a leukocytosis in this patient who is postop day #13 mitral valve repair and CABG x3 patient did not have any fever during this hospital stay and the white count has been slowly creeping up over the last 5 days source possible cath versus UTI versus his sacral pressure ulcer, patient started as well as vein grafting sites looks clean without evidence of any cellulitis he did have a thoracocentesis with fluid does not look infected. 2 blood cultures are negative. 3patient likely source of elevated white count is infected sacral pressure ulcer, Gen. surgery has been consulted for surgical debridement and deep culture, patient to continue with the daptomycin and Zosyn while waiting for the debridement and deep cultures Time with Patient: Less than 30
--- NOTE | 2022-05-09 00:50 | P.PN ---
Subjective Progress Note Date: 05/08/22 Principal diagnosis: Leukocytosis Patient is a 72-year-old male electively admitted to the hospital 04/19/2022 for mitral valve repair and coronary bypass grafting 3 and this patient has been afebrile however noticed to have worsening leukocytosis. Patient has been evaluated by general surgery and is scheduled for EGD and debridement of the sacral wound this afternoon On today's evaluation that is 05/08/2022, the patient to be afebrile, the patient is breathing comfortably on 2 L nasal cannula oxygen, the patient denies any chest pain the patient did have occasional cough but no sputum production, the patient denies nausea no vomiting no abdominal pain still complaining of pain to the sacral wound area Objective - Vital Signs Vital signs: Vital Signs Temp 97.8 F 05/08/22 09:45 Pulse 70 05/08/22 11:38 Resp 22 05/08/22 11:00 BP 112/56 05/08/22 11:00 Pulse Ox 99 05/08/22 11:00 FiO2 100 04/22/22 16:00 Intake & Output 05/07/22 05/08/22 05/08/22 18:59 06:59 18:59 Intake Total 1260 175 870 Output Total 1631 1225 300 Balance -371 -1050 570 Weight 92.5 kg 90.6 kg Intake: IV 150 175 100 DAPTOmycin 360 mg In 50 Sodium Chloride 0.9% 50 ml @ 100 mls/hr IVPB Q24H [facility] Rx#:[id number] Piperacillin-Tazobactam 3 150 125 100 .375 gm In Sodium Chloride 0.9% 100 ml @ 25 mls/hr IVPB Q8HR ZULMA Rx# :[id number] Oral 800 100 Blood Product 310 670 Rc As-1 Unit 310 [id number] Rc As-1 Unit 310 [id number] Output: Urine 1500 1225 300 Post Void Residual 131 Other: Voiding Method Urinal Urinal Urinal # Voids 1 0 # Bowel Movements 1 ABP, PAP, CO, CI - Last Documented Arterial Blood Pressure 137/47 Pulmonary Artery Pressure 67/18 Cardiac Output 5.8 Cardiac Index 2.8 - Exam GENERAL DESCRIPTION: An elderly male up in the chair in no distress RESPIRATORY SYSTEM: Unlabored breathing , decreased breath sounds at bases HEART: S1 S2 regular rate and rhythm , ABDOMEN: Soft , no tenderness Stages the sacral pressure ulcer with a black esher and surrounding redness some foul-smelling EXTREMITIES: 2+ edema feet - Labs CBC & Chem 7: 05/08/22 15:41 05/08/22 05:27 Labs: Abnormal Lab Results - Last 24 Hours (Table) 05/07/22 05/07/22 05/07/22 Range/Units 15:27 15:27 16:49 WBC 16.5 H (3.8-10.6) k/uL RBC 2.26 L (4.30-5.90) m/uL Hgb 6.5 L* (13.0-17.5) gm/dL Hct 21.6 L (39.0-53.0) % MCHC 30.0 L (31.0-37.0) g/dL RDW 19.0 H (11.5-15.5) % Neutrophils # 13.9 H (1.3-7.7) k/uL Lymphocytes # 0.7 L (1.0-4.8) k/uL BUN (9-20) mg/dL Creatinine (0.66-1.25) mg/dL Glucose (74-99) mg/dL POC Glucose (mg/dL) 241 H (70-110) mg/dL Calcium (8.4-10.2) mg/dL Magnesium (1.6-2.3) mg/dL Crossmatch See Detail Blood Bank Comment 05/07/22 05/07/22 05/08/22 Range/Units 18:25 20:28 05:27 WBC 14.9 H (3.8-10.6) k/uL RBC 1.97 L (4.30-5.90) m/uL Hgb 5.9 L* (13.0-17.5) gm/dL Hct 18.8 L* (39.0-53.0) % MCHC (31.0-37.0) g/dL RDW 18.9 H (11.5-15.5) % Neutrophils # (1.3-7.7) k/uL Lymphocytes # (1.0-4.8) k/uL BUN (9-20) mg/dL Creatinine (0.66-1.25) mg/dL Glucose (74-99) mg/dL POC Glucose (mg/dL) 239 H (70-110) mg/dL Calcium (8.4-10.2) mg/dL Magnesium (1.6-2.3) mg/dL Crossmatch See Detail Blood Bank [facility] 05/08/22 05/08/22 05/08/22 Range/Units 05:27 06:37 11:37 WBC (3.8-10.6) k/uL RBC (4.30-5.90) m/uL Hgb (13.0-17.5) gm/dL Hct (39.0-53.0) % MCHC (31.0-37.0) g/dL RDW (11.5-15.5) % Neutrophils # (1.3-7.7) k/uL Lymphocytes # (1.0-4.8) k/uL BUN 68 H (9-20) mg/dL Creatinine 1.48 H (0.66-1.25) mg/dL Glucose 140 H (74-99) mg/dL POC Glucose (mg/dL) 200 H 153 H (70-110) mg/dL Calcium 8.0 L (8.4-10.2) mg/dL Magnesium 2.4 H (1.6-2.3) mg/dL Crossmatch Blood Bank Comment Microbiology - Last 24 Hours (Table) 05/03/22 05:54 Blood Culture - Preliminary Blood No Growth after 120 hours 05/06/22 14:42 Gram Stain - Preliminary Sputum Sputum Culture - Preliminary Assessment and Plan (1) Leukocytosis Current Visit: Yes Status: Acute Code(s): D72.829 - ELEVATED WHITE BLOOD CELL COUNT, UNSPECIFIED SNOMED Code(s): 229134436 Plan: 1patient with a leukocytosis in this patient who is postop day #13 mitral valve repair and CABG x3 patient did not have any fever during this hospital stay and the white count has been slowly creeping up over the last 5 days source possible cath versus UTI versus his sacral pressure ulcer, patient started as well as vein grafting sites looks clean without evidence of any cellulitis he did have a thoracocentesis with fluid does not look infected. 2 blood cultures are negative. 3patient likely source of elevated white count is infected sacral pressure ulcer, Gen. surgery has been consulted for surgical debridement and deep culture which is scheduled for this afternoon, patient to continue with the daptomycin and Zosyn, white count is trending down with adjustment antibiotic on the basis of cultures Time with Patient: Less than 30
[2022-05-09 04:28] LABS: Anisocytosis Slight; Basophils # (A) 0.1 k/uL (0-0.2); Basophils % (A) 0 %; Eosinophils # (A) 0.4 k/uL (0-0.7); Eosinophils % (A) 3 %; HCT 20.7 % (39.0-53.0); Hypochromasia Marked; Lymphocytes # (A) 0.6 k/uL (1.0-4.8); Lymphocytes % (A) 4 %; MCH 30.9 pg (25.0-35.0); MCV 96.8 fL (80.0-100.0); Macrocytosis Slight; Mean Platelet Volume 8.7; Monocytes # (A) 0.9 k/uL (0-1.0); Monocytes % (A) 6 %; Neutrophils # (A) 12.5 k/uL (1.3-7.7); Neutrophils % (A) 85 %; Platelet Count 241 k/uL (150-450); Poikilocytosis Slight; RBC 2.14 m/uL (4.30-5.90); RDW 18.5 % (11.5-15.5); WBC 14.7 k/uL (3.8-10.6)
[2022-05-09 04:37] LABS: Albumin 2.4 g/dL (3.5-5.0); Calcium 8.1 mg/dL (8.4-10.2); Magnesium 2.5 mg/dL (1.6-2.3); Potassium 4.1 mmol/L (3.5-5.1); Total Bilirubin 0.8 mg/dL (0.2-1.3); Total Protein 4.6 g/dL (6.3-8.2)
[2022-05-09 04:59] LABS: HGB 6.6 gm/dL (13.0-17.5)
[2022-05-09 06:31] LABS: Glucose,Whole Blood 128 mg/dL (70-110)
[2022-05-09] MEDS: METOPROLOL TARTRATE 25 MG TAB PO SCH ×3 (06:57→20:32)
--- NOTE | 2022-05-09 07:19 | XR ---
EXAMINATION TYPE: XR chest 1V portable DATE OF EXAM: 05/09/2022 CLINICAL HISTORY: Difficulty breathing progress study. Postoperative cardiac surgery TECHNIQUE: Single AP portable semiupright view of the chest is obtained. COMPARISON: Chest x-ray from one day earlier and older studies. FINDINGS: Medial sternotomy wires along with cardiac valve ring are redemonstrated. Persistent cardiomegaly with small right pleural effusion and right basilar opacity. Left lung remain s clear. Metallic anchor left humeral head level redemonstrated. IMPRESSION: Cardiomegaly with small right pleural effusion and right basilar infiltrate and/or atelec tasis all redemonstrated. No significant change from one day earlier.
[2022-05-09] MEDS: INSULIN ASPART (NovoLOG) 100 UNIT/ML VIAL SQ SCH ×7 (07:27→20:31)
--- NOTE | 2022-05-09 07:54 | P.PN ---
Subjective Progress Note Date: 05/09/22 Principal diagnosis: Status post CABG The patient is a 72-year-old gentleman who is status post CABG as well as mitral valve repair with surgery complicated by recurrent pleural effusion. 05/07/2022 The patient was seen this morning. He is overall stable from a perivascular st andpoint of view. He is not on any vasopressors at this point. He does have history of hematuria but that seems to be cleared this morning. Currently he is on aspirin. He does have also history of paroxysmal atrial fibrillation and he was receiving oral anticoagulation which was stopped. May 082021 The patient was seen and evaluated this morning. He remains stable from a cardiovascular standpoint of view. His hemoglobin this morning is 5.9 and he is in process of having one unit of packed RBC to be transfused. He was seen by the urology service and currently antiplatelet beside aspirin and anticoagulation are on hold. May 092021 The patient was seen and evaluated this morning. The hemoglobin this morning is 6.6 and it was 6.8 yesterday. Overall he's stable with a soft blood pressure. He remains asymptomatic. He remains on antiplatelet with aspirin only. Objective - Vital Signs Vital signs: Vital Signs Temp 98.3 F 05/09/22 00:00 Pulse 65 05/09/22 07:00 Resp 26 H 05/09/22 07:00 BP 98/85 05/09/22 07:00 Pulse Ox 98 05/09/22 07:00 FiO2 100 04/22/22 16:00 Intake & Output 05/08/22 05/09/22 05/09/22 18:59 06:59 18:59 Intake Total 1720 625 400 Output Total 1010 1200 0 Balance 710 -575 400 Weight 91.1 kg Intake: IV 500 150 DAPTOmycin 360 mg In 50 Sodium Chloride 0.9% 50 ml @ 100 mls/hr IVPB Q24H [facility] Rx#:[id number] Piperacillin-Tazobactam 3 200 100 .375 gm In Sodium Chloride 0.9% 100 ml @ 25 mls/hr IVPB Q8HR [facility]MA Rx# :[id number] Oral 550 475 400 Blood Product 670 Rc As-1 Unit 310 [id number] Output: Urine 1000 1200 0 Estimated Blood Loss 10 Other: Voiding Method Urinal Urinal ABP, PAP, CO, CI - Last Documented Arterial Blood Pressure 137/47 Pulmonary Artery Pressure 67/18 Cardiac Output 5.8 Cardiac Index 2.8 - Constitutional General appearance: Present: no acute distress - Respiratory Respiratory: bilateral: diminished - Cardiovascular Heart sounds: normal: S1, S2 - Labs CBC & Chem 7: 05/09/22 04:07 05/09/22 04:07 Labs: Abnormal Lab Results - Last 24 Hours (Table) 05/07/22 05/08/22 05/08/22 Range/Units 18:25 11:37 15:41 WBC 17.9 H (3.8-10.6) k/uL RBC 2.26 L (4.30-5.90) m/uL Hgb 6.8 L* (13.0-17.5) gm/dL Hct 22.0 L (39.0-53.0) % RDW 18.2 H (11.5-15.5) % Neutrophils # (1.3-7.7) k/uL Lymphocytes # (1.0-4.8) k/uL BUN (9-20) mg/dL Creatinine (0.66-1.25) mg/dL Glucose (74-99) mg/dL POC Glucose (mg/dL) 153 H (70-110) mg/dL Calcium (8.4-10.2) mg/dL Magnesium (1.6-2.3) mg/dL AST (17-59) U/L ALT (4-49) U/L Total Protein (6.3-8.2) g/dL Albumin (3.5-5.0) g/dL Crossmatch See Detail 05/08/22 05/08/22 05/09/22 Range/Units 17:38 20:18 04:07 WBC 14.7 H (3.8-10.6) k/uL RBC 2.14 L (4.30-5.90) m/uL Hgb 6.6 L* (13.0-17.5) gm/dL Hct 20.7 L (39.0-53.0) % RDW 18.5 H (11.5-15.5) % Neutrophils # 12.5 H (1.3-7.7) k/uL Lymphocytes # 0.6 L (1.0-4.8) k/uL BUN (9-20) mg/dL Creatinine (0.66-1.25) mg/dL Glucose (74-99) mg/dL POC Glucose (mg/dL) 220 H 144 H (70-110) mg/dL Calcium (8.4-10.2) mg/dL Magnesium (1.6-2.3) mg/dL AST (17-59) U/L ALT (4-49) U/L Total Protein (6.3-8.2) g/dL Albumin (3.5-5.0) g/dL Crossmatch 05/09/22 05/09/22 Range/Units 04:07 06:30 WBC (3.8-10.6) k/uL RBC (4.30-5.90) m/uL Hgb (13.0-17.5) gm/dL Hct (39.0-53.0) % RDW (11.5-15.5) % Neutrophils # (1.3-7.7) k/uL Lymphocytes # (1.0-4.8) k/uL BUN 51 H (9-20) mg/dL Creatinine 1.27 H (0.66-1.25) mg/dL Glucose 112 H (74-99) mg/dL POC Glucose (mg/dL) 128 H (70-110) mg/dL Calcium 8.1 L (8.4-10.2) mg/dL Magnesium 2.5 H (1.6-2.3) mg/dL AST 67 H (17-59) U/L ALT 69 H (4-49) U/L Total Protein 4.6 L (6.3-8.2) g/dL Albumin 2.4 L (3.5-5.0) g/dL Crossmatch Microbiology - Last 24 Hours (Table) 05/06/22 14:42 Gram Stain - Preliminary Sputum Sputum Culture - Preliminary Margo albicans Aspergillus species 05/03/22 05:54 Blood Culture - Preliminary Blood No Growth after 120 hours Assessment and Plan Assessment: Assessment #1 status post CABG and mitral valve repair #2 paroxysmal atrial fibrillation #3 recurrent pleural effusion #4 hematuria #5 anemia Plan Monitor the hemoglobin very closely Monitor the pressure. The pressure is soft. Consider decrease the dose of metoprolol or isosorbide mononitrate if his pressure dropped Follow-up with the patient
[2022-05-09] MEDS: IPRATROPIUM-ALBUTEROL 3 ML NEB INHALATION SCH ×4 (08:35→21:57)
[2022-05-09] MEDS: SYMBICORT 160-4.5 MCG INHALER INHALATION SCH ×2 (08:35→21:57)
[2022-05-09] MEDS: PANTOPRAZOLE 40 MG/10 ML VIAL IVP SCH ×2 (09:03→20:32)
[2022-05-09] MEDS: PIPERACILLIN-TAZOBACTAM 3.375 GM in SODIUM CHLORIDE 0.9% 100 ML IVPB SCH ×2 (09:04→17:04)
[2022-05-09] MEDS: ASPIRIN 325 MG TAB PO SCH (09:09)
[2022-05-09] MEDS: TAMSULOSIN 0.4 MG CAP.ER.24H PO SCH (09:09)
[2022-05-09] MEDS: POTASSIUM CHLORIDE ER 20 MEQ TAB.ER PO SCH (09:10)
[2022-05-09] MEDS: bisacodyL 10 MG SUPP RECTAL PRN (09:10)
[2022-05-09] MEDS: AMIODARONE 200 MG TAB PO SCH (09:10)
[2022-05-09] MEDS: ASCORBIC ACID 500 MG TAB PO SCH (09:11)
[2022-05-09] MEDS: NON FORMULARY DRUG SQ SCH (09:11)
--- NOTE | 2022-05-09 09:16 | P.PN ---
Subjective Progress Note Date: 05/09/22 Principal diagnosis: Severe mitral valve regurgitation, coronary artery disease, paroxysmal atrial fibrillation, patent foramen ovale, tricuspid regurgitation, chronic systolic congestive heart failure. Previous medical history of hypertension, hyperlipidemia, coronary artery disease with history of previous PCI, non-ST elevated myocardial infarction in November 2021, ischemic cardiomyopathy with EF 40- 45%, right internal carotid stenosis 50-79%, renal insufficiency, anemia with history of GI bleed in November 2021 S/P transfusion PRBCs, diabetes mellitus type 2, osteoarthritis, severe COPD, chronic ongoing nicotine dependence, remote history of pneumonia, chronic low back pain and hearing disorder. Nasal swab positive for MSSA preoperative POD #20 Mitral valve repair with 28 mm physio-2 ring, CABG 3 with saphenous vein grafts to first diagonal, obtuse marginal, posterior descending coronary arteries, closure of PFO, endovascular vein harvest, modified Castanon maze procedure with full left-sided lesion set and ligation of the left atrial appendage, SCOTT by anesthesia. Protamine reaction intraoperative Postoperative acute blood loss anemia, expected given his history of anemia, hemodilution and cardiopulmonary bypass Acute on chronic kidney failure, likely from hypotension from intraoperative protamine reaction Elevated transaminases, likely from hypotension from intraoperative protamine reaction Left pleural effusion, status post left-sided thoracentesis with removal of [address] Aguilar on 04/30/22 and again on 05/04/22 for 550 mL fluid Leukocytosis, afebrile, CRP and pro-calcitonin trending down, sputum culture negative, no pneumonia, no UTI, blood culture preliminary negative, likely due to sacral stage II ulcer The patient was seen and examined this morning sitting up in a recliner in the intensive care unit in no acute distress eating breakfast. Currently in sinus rhythm, hemodynamically stable. Currently on 2 L nasal cannula with oxygen saturation in the high 90s, able to achieve 2000 mL on his incentive spirometer. States pain is controlled on current medication regimen, pain is generally with coughing and to his coccyx. Labs and chest x-ray reviewed. Hemoglobin was 5.9 yesterday morning, did receive 1 unit packed red blood cells prior to endoscopy, was 6.8 yesterday afternoon, this morning hemoglobin 6.6. Patient did undergo EGD yesterday by general surgery, there was no blood present in the esophagus or stomach nor the first or second portion of the duodenum, however there was fresh blood seen in the third and fourth portion of the duodenum along with clots but no identifiable active bleeding. Sacral decubitus debridement was also completed and subsequently packed with saline moistened Kerlix. Iron stopped by internal medicine. WBC trending down this morning, cultures remain negative except Margo growing in sputum. Continues on Daptomycin, Zosyn per Dr. Chen. Blood sugars are better controlled this morning, did discuss diet in great detail with patient and his yesterday. The patient does not want to eat hospital food so the has been bringing in food from home, unfortunately most of it has been high in carbohydrates. Importance of no simple carbohydrates as well as low carb food importance for the patient due to infection. Patient and verbalized understanding. Objective - Vital Signs Vital signs: Vital Signs Temp 98.3 F 05/09/22 00:00 Pulse 70 05/09/22 08:47 Resp 26 H 05/09/22 07:00 BP 98/85 05/09/22 07:00 Pulse Ox 98 05/09/22 07:00 FiO2 100 04/22/22 16:00 Intake & Output 05/08/22 05/09/22 05/09/22 18:59 06:59 18:59 Intake Total 1720 625 400 Output Total 1010 1200 0 Balance 710 -575 400 Weight 91.1 kg Intake: IV 500 150 DAPTOmycin 360 mg In 50 Sodium Chloride 0.9% 50 ml @ 100 mls/hr IVPB Q24H [facility]MA Rx#:[id number] Piperacillin-Tazobactam 3 200 100 .375 gm In Sodium Chloride 0.9% 100 ml @ 25 mls/hr IVPB Q8HR ZULMA Rx# :[id number] Oral 550 475 400 Blood Product 670 Rc As-1 Unit 310 [id number] Output: Urine 1000 1200 0 Estimated Blood Loss 10 Other: Voiding Method Urinal Urinal ABP, PAP, CO, CI - Last Documented Arterial Blood Pressure 137/47 Pulmonary Artery Pressure 67/18 Cardiac Output 5.8 Cardiac Index 2.8 - Exam CONSTITUTIONAL: Appears mostly comfortable, cooperative, very hard of hearing RESPIRATORY: Lungs sounds diminished bilaterally. Respirations even, nonlabored. Currently on 2 L high flow nasal cannula with oxygen saturation 9 9%. Able to achieve 2000 mL on incentive spirometry. Strong nonproductive cough. CARDIOVASCULAR: S1, S2 present. Regular rate and rhythm, sinus rhythm on telemetry. Sternum stable. Palpable peripheral pulses bilaterally. Bilateral lower extremity edema present. No calf pain or tenderness noted. Heart hugger in place. Antiembolism stockings, SCDs present. GASTROINTESTINAL: Abdomen soft, nontender, nondistended. Active bowel sounds present 4 quadrants. Tolerating diet. Positive bowel movement 05/07 GENITOURINARY: Continues to void, output 2200 mL in the last 24 hours INTEGUMENTARY: Skin is warm and dry, pale. Anterior chest incision well approximated. Bilateral EVH site well approximated. Stage II-III present to sacrum covered ABDs NEUROLOGIC: Cranial nerves II through XII intact MUSKULOSKELETAL: Able to move all extremities, strength equal bilaterally PSYCHIATRIC: Oriented to person place and time - Allied health notes Allied health notes reviewed: nursing - Labs CBC & Chem 7: 05/09/22 04:07 05/09/22 04:07 Labs: Abnormal Lab Results - Last 24 Hours (Table) 05/07/22 05/08/22 05/08/22 Range/Units 18:25 11:37 15:41 WBC 17.9 H (3.8-10.6) k/uL RBC 2.26 L (4.30-5.90) m/uL Hgb 6.8 L* (13.0-17.5) gm/dL Hct 22.0 L (39.0-53.0) % RDW 18.2 H (11.5-15.5) % Neutrophils # (1.3-7.7) k/uL Lymphocytes # (1.0-4.8) k/uL BUN (9-20) mg/dL Creatinine (0.66-1.25) mg/dL Glucose (74-99) mg/dL POC Glucose (mg/dL) 153 H (70-110) mg/dL Calcium (8.4-10.2) mg/dL Magnesium (1.6-2.3) mg/dL AST (17-59) U/L ALT (4-49) U/L Total Protein (6.3-8.2) g/dL Albumin (3.5-5.0) g/dL Crossmatch See Detail Blood Bank Comment Sent to [facility] Reference Lab Result See [facility] REF Reports A 05/08/22 05/08/22 05/09/22 Range/Units 17:38 20:18 04:07 WBC 14.7 H (3.8-10.6) k/uL RBC 2.14 L (4.30-5.90) m/uL Hgb 6.6 L* (13.0-17.5) gm/dL Hct 20.7 L (39.0-53.0) % RDW 18.5 H (11.5-15.5) % Neutrophils # 12.5 H (1.3-7.7) k/uL Lymphocytes # 0.6 L (1.0-4.8) k/uL BUN (9-20) mg/dL Creatinine (0.66-1.25) mg/dL Glucose (74-99) mg/dL POC Glucose (mg/dL) 220 H 144 H (70-110) mg/dL Calcium (8.4-10.2) mg/dL Magnesium (1.6-2.3) mg/dL AST (17-59) U/L ALT (4-49) U/L Total Protein (6.3-8.2) g/dL Albumin (3.5-5.0) g/dL Crossdctch Blood Bank Comment Reference Lab Result 05/09/22 05/09/22 Range/Units 04:07 06:30 WBC (3.8-10.6) k/uL RBC (4.30-5.90) m/uL Hgb (13.0-17.5) gm/dL Hct (39.0-53.0) % RDW (11.5-15.5) % Neutrophils # (1.3-7.7) k/uL Lymphocytes # (1.0-4.8) k/uL BUN 51 H (9-20) mg/dL Creatinine 1.27 H (0.66-1.25) mg/dL Glucose 112 H (74-99) mg/dL POC Glucose (mg/dL) 128 H (70-110) mg/dL Calcium 8.1 L (8.4-10.2) mg/dL Magnesium 2.5 H (1.6-2.3) mg/dL AST 67 H (17-59) U/L ALT 69 H (4-49) U/L Total Protein 4.6 L (6.3-8.2) g/dL Albumin 2.4 L (3.5-5.0) g/dL Crossmatch Blood Bank Comment Reference Lab Result Microbiology - Last 24 Hours (Table) 05/03/22 05:54 Blood Culture - Final Blood No Growth after 144 hours 05/06/22 14:42 Gram Stain - Preliminary Sputum Sputum Culture - Preliminary Margo albicans Aspergillus species - Imaging and Cardiology Chest x-ray: report reviewed, image reviewed Assessment and Plan Assessment: 1. Severe mitral valve regurgitation, status post mitral valve repair 2. Coronary artery disease, previous PCI, previous non-STEMI, status post CABG 3 3. History of paroxysmal atrial fibrillation, previous cardioversion, on [facility] outpatient for anticoagulation, status post modified Castanon maze and ligation of left atrial appendage 4. Patent foramen ovale, status post closure 5. Tricuspid regurgitation 6. Chronic systolic congestive heart failure, ischemic cardiomyopathy with EF 40-45% 7. History of hypertension 8. History hyperlipidemia, treated, cholesterol 150, LDL 72 9. Right internal carotid stenosis 50-79% 10. Acute on chronic blood loss anemia with history of GI bleed in November 2021 S/P transfusion PRBCs 11. Acute on chronic renal failure, baseline creatinine 1.28-1.6 12. Diabetes mellitus type 2, preoperative hemoglobin A1c 5.6% 13. Osteoarthritis 14. Severe COPD, preoperative FEV1 41% of predicted 15. Chronic ongoing nicotine dependence 16. Remote history of pneumonia 17. Chronic low back pain, hearing disorder 18. Nasal swab positive for MSSA preoperative 19. Postoperative acute blood loss anemia, expected 20. Elevated transaminases 21. Protamine reaction intraoperative 22. Leukocytosis, afebrile, CRP and pro-calcitonin trending down, sputum culture negative, no pneumonia, no UTI, likely due to sacral stage II ulcer 23. Medical debility, generalized weakness 24. Stage II-III decubitus to his buttocks, status post surgical debridement 25. Small left-sided pleural effusion, status post left-sided thoracentesis on 04/30/2022 26. Urinary retention possibly secondary to constipation Plan: 1. Continue full dose aspirin, beta siomara. Statin discontinued by Dr. Chen. Imdur stopped as patient has not been receiving due to blood pressure 2. Continue amiodarone. Anticoagulation discontinued 3. Hold bumex today 4. Wean O2 as tolerated. Encourage incentive spirometry 10 times every hour while awake. Bronchodilators per pulmonology 5. Increase activity, ambulate as tolerated. PT/OT/cardiac rehab following 6. Will monitor daily labs and chest x-rays. Electrolyte replacement per protocol. Will transfuse 1 unit packed red blood cells today, patient does have antibodies making it difficult to get blood 7. GI/DVT prophylaxis. 8. Insulin management per primary care service. Patient is a diabetic with a preoperative hemoglobin A1c of 5.6% on multiple oral medications, needs tight blood sugar control, diet changed and counseling provided to patient/ 9. Pain control with current medication regimen. Avoid narcotics 10. Continue Flomax 11. Strict accurate intake and output. Daily weights. 12. Dr. Chen consulted due to leukocytosis. Continue daptomycin, Zosyn. UA negative, sputum culture negative, blood cultures preliminary negative. WBC, CRP, pro-calcitonin trending down. Remains afebrile 13. Smoking cessation counseling and education provided to patient and family 14. Medihoney ordered for sacral decubitus per Dr. Chen 15. Records to be obtained regarding endoscopy completed in November 2021 at [facility]. Patient signed for records today 16. Decubitus dressing to be changed today by Dr. Cardenas 17. More recommendations to follow based on patient's clinical course.
[2022-05-09] MEDS: guaiFENesin-DM 600/30MG 1 EACH TAB.ER.12H PO SCH ×2 (09:20→20:42)
[2022-05-09] MEDS: DAPAGLIFLOZIN PROPANEDIOL 5 MG TABLET PO SCH (09:20)
[2022-05-09] MEDS: LIDOCAINE 5% PATCH TOPICAL SCH (09:20)
--- NOTE | 2022-05-09 09:37 | P.PN ---
Subjective Progress Note Date: 05/09/22 Principal diagnosis: Status post CABG. This is a pleasant 72-year-old male patient with a known history of osteoarthritis was multiple orthopedic surgeries, diabetes mellitus, hyp erlipidemia, chronic tobacco dependence, paroxysmal atrial fibrillation. He was recently found to have coronary artery disease with a total occlusion of the RCA with collateral circulation, obtuse marginal with 99% stenosis and mild LAD disease. His ejection fraction is 45%. He was also found to have severe mitral regurgitation, moderate central tricuspid regurgitation as well as evidence of a PFO with [id number] shunt. He was recommended coronary artery bypass grafting and valvular repair. He was brought in to the hospital yesterday 04/20/2022 for an elective procedure. He did undergo mitral valve repair, coronary bypass grafting 3 with an SVG to the first diagonal, obtuse marginal and posterior descending coronary arteries, closure of a PFO, modified Castanon-Maze procedure and litigation of the left atrial appendage. He was successfully extubated within the 6 hour protocol. He is seen today in consultation in the intensive care unit. He is ready sitting up in a chair. Awake and alert in no acute distress. He is maintaining O2 saturation in the 90s on 3 L/m per nasal cannula. He has insulin drip at 5 units per hour. Lactated Ringer's at 20 miles per hour. He initially was on epinephrine drip that has been discontinued. He did receive 2 units of packed red blood cells, 2 units of fresh frozen plasma and 1 unit of platelets. White count 8.9. Hemoglobin 7.7. Platelets 139,000. Sodium 142. Potassium 5.5. Chloride 111. Bicarb 23. BUN 32. Creatinine 1.73. Glucose 125. AST 1:30. ALT 37. Magnesium 3.6. Mean arterial blood pressure in the 70s. PA pressures 50/18. CVP 12. Cardiac output 6.5. Cardiac index 3.1. He is on bronchodilators. Working well with the incentive spirometer. Chest x-ray reveals scattered opacities bilaterally. No evidence of pleural effusion, focal consolidation or pneumothorax. Mediastinal 2, left pleural chest tube in place. He is continued on oral amiodarone. Heparin for DVT prophylaxis. The patient is seen today in 04/21/2022 in follow-up in the intensive care unit. He is currently sitting up in a recliner at the bedside. Maintaining O2 saturations on 5 L/m per nasal cannula. He did require BiPAP support last evening and was placed on 14/10 and 100% FiO2 eventually decreased to 40%. He is currently on a Lasix drip at 5 mg per hour. Dopamine drip at 2 mcg/kg/m. Cardiac output 4.6. Cardiac index 2.2. He is dual pacing. He has normal saline at 20 ML's per hour. He is unemployed about 750 MLS on the incentive spirometer. His x-ray continues to show cardiomegaly with ongoing mild pulmonary vascular congestion. Increasing patchy bibasilar opacities/atelectasis. Right IJ Homewood-Varghese catheter remains in place. He is sternal and left sided chest tubes remain in place. No pneumothorax. White count 9.6. Hemoglobin 7.3. Platelets 144. Sodium 132. Potassium 5.4. Bicarb 21. BUN 41. Creatinine 2.53. Glucose 175. AST 1309. ALT 547. Albumin 3.6. The patient does have a cyst the year smoking history. He remains on DuoNeb inhalations 4 times a day and when necessary. Heparin for DVT prophylaxis. Progress note dated 04/22/2022. 72-year-old male, who is currently seen in room 267. He's postop day #3. The patient's currently on 8 L high flow oxygen. He is getting dopamine at 2 mcg/kg/m, a Lasix drip at 10 mg an hour, insulin at 1.5 units an hour, and saline at 20 mL an hour. Labs today include a white count of 8.5, hemoglobin 7.4, hematocrit 23.3, and a platelet count of 135,000. Sodium 131, potassium 5.8, chlorides 102, CO2 23, BUN 51, and creatinine 3.1. AST was 2217. ALT is 1006. Chest x-ray shows cardiomegaly, and pulmonary vascular congestion. Reevaluated today on 05/05/22, remains in the ICU, remains marginal at best. Today the patient is feeling a bit better, and he would likely feel even better once he gets another unit of packed RBCs continues to have low hemoglobin. Chest x-ray showed minimal atelectasis, no clear-cut evidence of congestive he art failure. Patient is sitting at a bedside chair, he is on 2 L nasal cannula, able to achieve about 1000 mL via incentive spirometry. No pain, no discomfort, continues to have a sacral decubitus ulcer stage II3. Hemoglobin today is 6.7, was 6.1 yesterday, and he will receive another unit of packed RBCs today. Reevaluated today on 05/06/22, remains in the ICU, patient is doing well, requiring another unit of packed RBCs today, patient is having hematuria, and that's going to be addressed by urology which was consulted. Pulmonary-arboleda is about the same, remains on 2 L nasal cannula, chest x-ray is showing evidence of interstitial edema and small tiny left-sided and right-sided pleural effusions, not large enough to consider thoracentesis at this point yet. He remained generally weak and short of breath with any activity. Hemoglobin today is 6.2, WBC count is 19.7, patient was placed on daptomycin and Eraxis empirically by infectious disease on the case. All cultures have been nondiagnostic so far including blood pleural effusion cultures and sputum cultures. Patient does hav e a sacral decubitus ulcer that may be causing his leukocytosis Progress note dated 05/07/2022. 72-year-old male status post four-vessel bypass grafting, mitral valve repair, and Castanon-Maze procedure. The patient is currently on 2 L of oxygen. Not receiving any IV fluids. He, he's had problems with anemia, he is receiving his sixth unit of blood. Surgery was consulted. White count 23.1, hemoglobin 6.2, hematocrit 20.5, and platelet count 334,000. Sodium 136, potassium 4.2, chlorides 100, due to 27, anion gap 9, BUN 77, and creatinine 1.48. Chest x-ray shows cardiomegaly, and small right pleural effusion. Progress note dated 05/08/2022. 72-year-old male, status post four-vessel bypass grafting, mitral valve repair, and Castanon-Maze procedure. The patient is seen again in room 267, in the intensive care unit. He's on 2 L of oxygen. He is on no IV fluids. Because of ongoing anemia, the patient is receiving his 7 unit of packed red blood cells. He is scheduled for an EGD today. White count 14.9, hemoglobin 5.9, hematocrit 18.8, and platelet count 257,000. Sodium 137, potassium 3.9, chlorides 105, CO2 29, BUN 68, and creatinine 1.48. Chest x-ray show some cardiomegaly, and some mild pulmonary vascular congestion. Chest x-ray is largely unchanged. Progress note dated 05/09/2022. A 72-year-old male, again seen in room 267. He status post four-vessel bypass grafting, and mitral valve repair, along with a Castanon-Maze procedure. The patient has received a total of 7 units of packed red blood cells since being here in the ICU. He is currently on 2 L of oxygen. Not receiving any IV fluids. He did have an EGD yesterday, which did not reveal any active bleeding although there was blood in the gastrointestinal tract. Clinically, he is feeling a bit better today. White count 14.7, hemoglobin 6.6, hematocrit 20.7, platelet count 241,000. Sodium 137, potassium 4.1, chlorides 107, CO2 27, BUN 51, creatinine 1.27. Chest x-ray shows cardiomegaly with small right-sided effusion. Objective - Vital Signs Vital signs: Vital Signs Temp 98.3 F 05/09/22 00:00 Pulse 70 05/09/22 08:47 Resp 26 H 05/09/22 07:00 BP 98/85 05/09/22 07:00 Pulse Ox 98 05/09/22 07:00 FiO2 100 04/22/22 16:00 Intake & Output 05/08/22 05/09/22 05/09/22 18:59 06:59 18:59 Intake Total 1720 625 400 Output Total 1010 1200 0 Balance 710 -575 400 Weight 91.1 kg Intake: IV 500 150 DAPTOmycin 360 mg In 50 Sodium Chloride 0.9% 50 ml @ 100 mls/hr IVPB Q24H [facility] Rx#:[id number] Piperacillin-Tazobactam 3 200 100 .375 gm In Sodium Chloride 0.9% 100 ml @ 25 mls/hr IVPB Q8HR [facility] Rx# :[id number] Oral 550 475 400 Blood Product 670 Rc As-1 Unit 310 [id number] Output: Urine 1000 1200 0 Estimated Blood Loss 10 Other: Voiding Method Urinal Urinal ABP, PAP, CO, CI - Last Documented Arterial Blood Pressure 137/47 Pulmonary Artery Pressure 67/18 Cardiac Output 5.8 Cardiac Index 2.8 - Exam No acute distress, oriented 3. No audible wheezing, use of accessory muscles, or conversational dyspnea. The patient looks pale. The patient remains on 3 L of oxygen. HEENT examination is grossly unremarkable. Neck supple. Full range of motion. No adenopathy thyromegaly or neck vein distention. Cardiovascular examination reveals regular rhythm rate. S1-S2 normal. No S3 or S4. No discernible murmur noted. Heart rate is 70 bpm. Heart sounds are distant. Lungs reveal scattered bilateral rhonchi. Crackles at the bases. No wheezes. Breath sounds are equal bilaterally. Saturations are 97 %. Abdomen soft bowel sounds are heard. No masses or tenderness. Extremities are intact. No cyanosis clubbing or edema. Skin is without rash or lesion. Neurologic examination is brief but nonfocal. - Labs CBC & Chem 7: 05/09/22 04:07 05/09/22 04:07 Labs: Abnormal Lab Results - Last 24 Hours (Table) 05/07/22 05/08/22 05/08/22 Range/Units 18:25 11:37 15:41 WBC 17.9 H (3.8-10.6) k/uL RBC 2.26 L (4.30-5.90) m/uL Hgb 6.8 L* (13.0-17.5) gm/dL Hct 22.0 L (39.0-53.0) % RDW 18.2 H (11.5-15.5) % Neutrophils # (1.3-7.7) k/uL Lymphocytes # (1.0-4.8) k/uL BUN (9-20) mg/dL Creatinine (0.66-1.25) mg/dL Glucose (74-99) mg/dL POC Glucose (mg/dL) 153 H (70-110) mg/dL Calcium (8.4-10.2) mg/dL Magnesium (1.6-2.3) mg/dL AST (17-59) U/L ALT (4-49) U/L Total Protein (6.3-8.2) g/dL Albumin (3.5-5.0) g/dL Crossmatch See Detail [facility] See [facility] REF Reports A 05/08/22 05/08/22 05/09/22 Range/Units 17:38 20:18 04:07 WBC 14.7 H (3.8-10.6) k/uL RBC 2.14 L (4.30-5.90) m/uL Hgb 6.6 L* (13.0-17.5) gm/dL Hct 20.7 L (39.0-53.0) % RDW 18.5 H (11.5-15.5) % Neutrophils # 12.5 H (1.3-7.7) k/uL Lymphocytes # 0.6 L (1.0-4.8) k/uL BUN (9-20) mg/dL Creatinine (0.66-1.25) mg/dL Glucose (74-99) mg/dL POC Glucose (mg/dL) 220 H 144 H (70-110) mg/dL Calcium (8.4-10.2) mg/dL Magnesium (1.6-2.3) mg/dL AST (17-59) U/L ALT (4-49) U/L Total Protein (6.3-8.2) g/dL Albumin (3.5-5.0) g/dL [facility] Blood Bank Comment Reference Lab Result 05/09/22 05/09/22 Range/Units 04:07 06:30 WBC (3.8-10.6) k/uL RBC (4.30-5.90) m/uL Hgb (13.0-17.5) gm/dL Hct (39.0-53.0) % RDW (11.5-15.5) % Neutrophils # (1.3-7.7) k/uL Lymphocytes # (1.0-4.8) k/uL BUN 51 H (9-20) mg/dL Creatinine 1.27 H (0.66-1.25) mg/dL Glucose 112 H (74-99) mg/dL POC Glucose (mg/dL) 128 H (70-110) mg/dL Calcium 8.1 L (8.4-10.2) mg/dL Magnesium 2.5 H (1.6-2.3) mg/dL AST 67 H (17-59) U/L ALT 69 H (4-49) U/L Total Protein 4.6 L (6.3-8.2) g/dL Albumin 2.4 L (3.5-5.0) g/dL Crossmatch Blood Bank Comment Reference Lab Result Microbiology - Last 24 Hours (Table) 05/03/22 05:54 Blood Culture - Final Blood No Growth after 144 hours 05/06/22 14:42 Gram Stain - Preliminary Sputum Sputum Culture - Preliminary Margo albicans Aspergillus species Assessment and Plan Assessment: Coronary artery disease with valvular heart disease. Status post mitral valve repair, coronary bypass grafting 3 with an SVG to the first diagonal, obtuse marginal and posterior descending coronary arteries, closure of a PFO, modified Castanon-Maze procedure and litigation of the left atrial appendage. Postoperative day #20. Acute hypoxemic respiratory failure secondary to above. Currently on 3 L of oxygen. Paroxysmal atrial fibrillation. Chronic and ongoing tobacco dependence. Chronic obstructive pulmonary disease, FEV1 value of 52% of predicted. Acute on chronic anemia, status post 7 units packed red blood cells. Osteoarthritis. Diabetes mellitus. Hyperlipidemia. Plan: Plan dated 04/22/2022. The patient will absolutely not wearing the BiPAP device. The patient is on dopamine, Lasix drip, and insulin drip. Today is postop day #3. Labs, x-rays, and medications are reviewed. The patient's overall prognosis remains guarded. We will continue to follow and make recommendations along the way. The patient continues on DVT and GI prophylaxis. He continues on breathing treatments. Prognosis is guarded. Plan dated 05/07/2022. The patient is receiving his sixth unit of blood. Surgery has been consulted for his ongoing anemia, and suspected GI bleed. We will continue to follow this patient and make recommendations along the way. Labs, x-rays, and medications are reviewed. Clinically, the patient looks reasonable, but pale. He's been weaned down to 2 L of oxygen. Prognosis is guarded. Plan dated 05/08/2022. The patient is currently receiving his seventh unit of blood. He is scheduled for an EGD today. He's on 2 L of oxygen. No IV fluids. The patient's overall prognosis remains very guarded. We will continue to follow make recommendations along the way. Labs, x-rays, and medications are all reviewed. Plan dated 05/09/2022. The patient appears to be doing a bit better today. He's received a total of 7 units of PRBCs. He had an EGD yesterday. His sacral decubitus ulcer was also debrided yesterday. Labs, x-rays, and medications are reviewed. We will continue to follow. Prognosis is guarded. He still a bit anemic today, but no additional decision has been made about additional blood at this time. We will continue to follow make recommendations along the way. Time with Patient: Less than 30
[2022-05-09] MEDS: ACETAMINOPHEN TAB 325 MG TAB PO PRN (10:32)
[2022-05-09 11:17] LABS: Glucose,Whole Blood 175 mg/dL (70-110)
--- NOTE | 2022-05-09 12:46 | P.PN ---
Subjective Progress Note Date: 05/09/22 CHIEF COMPLAINT: GI bleed, sacral decubitus ulcer HISTORY OF PRESENT ILLNESS: Patient is currently in the ICU. Patient is status post EGD revealing duodenitis, hiatal hernia, distal esophagitis. There was blood in the third and fourth portion of the duodenum. Patient also had incision and drainage and debridement of sacral decubitus ulcer with abscess. Patient continues to have lack stools. Hemoglobin did drop to 6.6 he is receiving another unit of blood today. He does complain of pain with wound care changes of the sacral to keep this ulcer. Afebrile. WBC is down from 17.9-14.7 hemoglobin 6.6 platelets 241 12/01/1937 potassium 4.1 creatinine 1.27 PHYSICAL EXAM: VITAL SIGNS: Reviewed. GENERAL: Well-developed in no acute distress. HEENT: No sclera icterus. Extraocular movements grossly intact. Moist buccal mucosa. Head is atraumatic, normocephalic. ABDOMEN: Soft. Nondistended. Nontender. NEUROLOGIC: Alert and oriented. Cranial nerves II through XII grossly intact. Skin: Sacral decubitus ulcer has been debrided. healthy pink tissue noted. mild pink around wound ASSESSMENT: 1. Sacral decubitus ulcer and abscess status post incision, drainage and debridement 2. Acute GI bleed possibly due to AVMs. Status post EGD revealing duodenitis, hiatal hernia and distal esophagitis PLAN: -Continue local wound care to sacral ulcer -Continue to hold Eliquis -Continue to monitor hemoglobin and transfuse as needed -Continue monitoring for any signs or symptoms of bleeding -Patient may require transfer to tertiary care center if he continues to have low hemoglobin. Concerns for possible duodenal AVM bleeding. Physician Fire Safety Manager note has been reviewed by physician. Signing provider agrees with the documented findings, assessment, and plan of care. Objective - Vital Signs Vital signs: Vital Signs Temp 97.9 F 05/09/22 12:00 Pulse 62 05/09/22 12:27 Resp 19 05/09/22 12:00 BP 107/73 05/09/22 12:00 Pulse Ox 92 L 05/09/22 12:00 FiO2 100 04/22/22 16:00 Intake & Output 05/08/22 05/09/22 05/09/22 18:59 06:59 18:59 Intake Total 6565 246 0083 Output Total 1010 1200 250 Balance 710 -575 860 Weight 91.1 kg Intake: IV 500 150 100 DAPTOmycin 360 mg In 50 Sodium Chloride 0.9% 50 ml @ 100 mls/hr IVPB Q24H [facility] Rx#:[id number] Piperacillin-Tazobactam 3 200 100 100 .375 gm In Sodium Chloride 0.9% 100 ml @ 25 mls/hr IVPB Q8HR [facility] Rx# :[id number] Oral 550 475 650 Blood Product 670 360 Unit 0 Rc As-1 Unit 310 [id number] Output: Urine 1000 1200 250 Estimated Blood Loss 10 Other: Voiding Method Urinal Urinal Urinal # Voids 1 # Bowel Movements 1 ABP, PAP, CO, CI - Last Documented Arterial Blood Pressure 137/47 Pulmonary Artery Pressure 67/18 Cardiac Output 5.8 Cardiac Index 2.8 - Labs CBC & Chem 7: 05/09/22 04:07 05/09/22 04:07 Labs: Abnormal Lab Results - Last 24 Hours (Table) 05/07/22 05/08/22 05/08/22 Range/Units 18:25 15:41 17:38 WBC 17.9 H (3.8-10.6) k/uL RBC 2.26 L (4.30-5.90) m/uL Hgb 6.8 L* (13.0-17.5) gm/dL Hct 22.0 L (39.0-53.0) % RDW 18.2 H (11.5-15.5) % Neutrophils # (1.3-7.7) k/uL Lymphocytes # (1.0-4.8) k/uL BUN (9-20) mg/dL Creatinine (0.66-1.25) mg/dL Glucose (74-99) mg/dL POC Glucose (mg/dL) 220 H (70-110) mg/dL Calcium (8.4-10.2) mg/dL Magnesium (1.6-2.3) mg/dL AST (17-59) U/L ALT (4-49) U/L Total Protein (6.3-8.2) g/dL Albumin (3.5-5.0) g/dL Crossmatch See Detail Blood Bank Comment Sent to [facility] A Reference Lab Result See BBK REF Reports A 05/08/22 05/09/2205/09/22 Range/Units 20:18 04:07 04:07 WBC 14.7 H (3.8-10.6) k/uL RBC 2.14 L (4.30-5.90) m/uL Hgb 6.6 L* (13.0-17.5) gm/dL Hct 20.7 L (39.0-53.0) % RDW 18.5 H (11.5-15.5) % Neutrophils # 12.5 H (1.3-7.7) k/uL Lymphocytes # 0.6 L (1.0-4.8) k/uL BUN 51 H (9-20) mg/dL Creatinine 1.27 H (0.66-1.25) mg/dL Glucose 112 H (74-99) mg/dL POC Glucose (mg/dL) 144 H (70-110) mg/dL Calcium 8.1 L (8.4-10.2) mg/dL Magnesium 2.5 H (1.6-2.3) mg/dL AST 67 H (17-59) U/L ALT 69 H (4-49) U/L Total Protein 4.6 L (6.3-8.2) g/dL Albumin 2.4 L (3.5-5.0) g/dL [facility] Blood Bank Comment Reference Lab Result 05/09/22 05/09/22 Range/Units 06:30 11:16 WBC (3.8-10.6) k/uL RBC (4.30-5.90) m/uL Hgb (13.0-17.5) gm/dL Hct (39.0-53.0) % RDW (11.5-15.5) % Neutrophils # (1.3-7.7) k/uL Lymphocytes # (1.0-4.8) k/uL BUN (9-20) mg/dL Creatinine (0.66-1.25) mg/dL Glucose (74-99) mg/dL POC Glucose (mg/dL) 128 H 175 H (70-110) mg/dL Calcium (8.4-10.2) mg/dL Magnesium (1.6-2.3) mg/dL AST (17-59) U/L ALT (4-49) U/L Total Protein (6.3-8.2) g/dL Albumin (3.5-5.0) g/dL Crossmatch Blood Bank Comment Reference Lab Result Microbiology - Last 24 Hours (Table) 05/06/22 14:42 Gram Stain - Final Sputum Sputum Culture - Final Margo albicans Aspergillus fumigatus 05/03/22 05:54 Blood Culture - Final Blood No Growth after 144 hours
--- NOTE | 2022-05-09 16:27 | P.PN ---
Progress Note - Text Progress Note Date: 05/09/22 Patient is a pleasant 72-year-old male came in the for elective mitral valve repair, CABG x 3 vessel, maze procedure, PFO closure. Patient is extubated sitting in the chair patient still has a [place]-Varghese catheter, CVP of around 12, cardiac index 3.1 patient creatinine went up to 1.70 resulting elevated potassium of 5.5 patient is off pressor support, off nitro drip patient still has 2 mediastinal and one left-sided chest tube. 04/21/2022 Patient is evaluated in ICU today, sitting up in chair. He is postoperative day #2 for elective mitral valve repair, hematocrit bypass grafting maze procedure and PFO closure. He is on BiPAP with fio2 of 40% Continues with mediastinal/left pleural chest tubes. Continue with indwelling catheter. Received dose of IV albumin yesterday afternoon. Chest xray today showing ongoing mild pulmonary vascular congestion, increasing patchy bibasilar opacities, atelectasis vs. pulmonary edema. Currently on lasix gtt at 10mls/hr, continues on dopamine gtt at 3.68 mls/hr. Continues on insulin gtt and blood glucose remains in the 140 to 130s. Labs today showing sodium 132, potassium 6.1 improved to 5.4, BUN 41, creatinine 2.53, elevated liver enzymes. Hgb 7.3. 04/22/2022 Patient continues to be monitored closely in intensive care unit, he is postoperative day #3 for elective mitral valve repair, maze procedure, PFO closure. Managed by primary team. He had limited echocardiogram completed showing EF 45 to 50%, mild to moderate MR, moderate pulmonary hypertension with moderate TR. Chest xray today shows slight improvement in pulmonary vascular congestion. Maintained on lasix gtt at 10mls/hr, dopamine gtt, Continues with 2 mediastinal chest tubes. Continues with indwelling catheter. Continues with right IJ swan/cordis, right radial arterial line. He has been weaned off BiPAP currently on high flow cannula at 15L. He has been tolerating some diet. Continues on insulin gtt which will continue until his diet stabilizes. Current glucose in the 140s. Creatinine today 3.14. April 23: [facility] care of [facility]. In a recliner. Tired. Little oral intake. Nasal cannula. Drips include IV dopamine and Lasix. Some shortness of breath. Mooney catheter. 04/24/2022: ICU. Up. 4 L nasal cannula. Did eat better. Edema present. On the Lasix drip 5 mg an hour. Some improvement in creatinine. 04/25/2022: ICU. Up in a recliner. Eating better. at the bedside. Edema present. Off Lasix drip. Feeling better. Creatinine coming down. LFTs improving. Home dose of Victoza was started 04/26/2022: ICU. Up in a recliner. 4 L nasal cannula. Eating about 50%. Accu-Cheks noted. 04/27/2022: ICU: Patient went into atrial fibrillation overnight. Put on oral amiodarone and Lopressor per CTS.. Some worsening of shortness of breath. Placed on IV Lasix. Eating some. Up in a recliner. 04/28/2022: ICU. Patient received Lopressor today for the A. fib. Patient went down into sinus rhythm. Blood pressure also dropped her was 70 systolic. Oxygen increased to 4 L. Short of breath. Patient did walk 10-12 steps up to the door. Eating fair. Lower extremity edema edema present. Up in a chair. Tired. 04/29/2022: ICU. Short of breath. 3 L nasal cannula. Eating fair. Edema pre sent. Getting Bumex. Getting IV albumin and IV calcium. Using incentive spirometry. Up in a chair. Discussed with at the bedside. Increasing white count, infiltrated urine chest x-ray suggestive of pneumonia. Started on IV cefepime 04/30/2022: ICU. Remains short of breath. 3 L nasal cannula. Started on IV cefepime yesterday.. Oral intake fair. Edema present. Remains on Bumex. Fo sher catheter. Discussed with patient and at the bedside. Discussed with Dr. Cortez from cardiothoracic surgery. 05/01/2022: ICU. Zaroxolyn was added. Good diuresis. Breathing better. On IV cefepime. Left paracentesis is done. 850 mL removed. Oral intake fair. Breathing a bit better. Telemetry shows sinus rhythm. 2 L nasal cannula. at the bedside. Will DC Actos. Even though smaller dose. Given CHF renal failure. Increase Lantus to 12 units. 05/02/2022: ICU. Over 3 is a negative fluid balance. Last 24 hours. Some improvement in breathing. Oral intake fair. Remains in atrial fibrillation controlled. 2 L nasal cannula. Add Diamox. 4 metabolic alkalosis 05/03/2022: ICU. This morning patient became short of breath. Dr. Chen from [place] consulted for sacral decub. Remains on IV cefepime. Oral intake fair. Had a BM. On IV Bumex. I discussed with Dr. Aguilar from pulmonary. Patient is known to him. Advanced COPD. His right lung changes are chronic. Has had previous CAT scans. He may have had a located effusion. 05/04/2022: ICU. Breathing a bit better. Hemoglobin dropped to 6.1. Awaiting transfusion. Tolerating diet. On IV cefepime. Patient started on IV eraxis by Dr. Prescott from [place]. 05 May 2022: ICU. Patient received a unit of blood yesterday evening. Getting another unit of blood today. Breathing better. Remains on IV Bumex. IV cefepime discontinued. Remains on IV Eraxis. Oral intake fair. Up in a chair. at the bedside. Increase Levemir to 20 units at night. 05/06/2022: ICU. Patient received a 3rd unit blood this morning. Breathing better. Had some blood in his urine. On 2 L is cannula. Sitting up in a chair, eating better. Some cough with brownish sputum. 05/07/2022: ICU. Up in a chair. Eating better. On 2 L nasal cannula. On IV daptomycin. IV Zosyn. Has had dark stools but is on iron. We'll hold off oral iron to see if stool color lightens. Add NovoLog 5 units scheduled with meals. Hemoglobin dropped again to 6.2. Received 1 unit of blood today. 05/08/2022: ICU. Seen by me this morning. Hemoglobin further dropped again. 5.9. Data patient underwent EGD by Dr. Fiore. Fresh blood seen in the third and fourth portion of duodenum of blood clots noted. No obvious source noted. Patient is on PPI. Also sacral decub ulcer abscess also drained. Patient received a unit of blood this morning. Discussed with Neema from cardiothoracic team. Patient does not like hospital food. has been free eating food from outside. Including [employer] fish [employer] etc. Difficult to control Accu- Cheks. Concerned the patient may become hypoglycemic if a more aggressive. farxiga is being added. 05/09/2022: ICU. No further drop in hemoglobin after blood transfusion yesterday. Patient is off eliquis. Had a dark stool today. Oral intake fair. On 2 L nasal cannula. On IV daptomycin IV Zosyn. Active Medications Acetaminophen (Acetaminophen Tab 325 Mg Tab) 650 mg PO Q6HR PRN PRN Reason: Fever and/ or Mild Pain Last Admin: 05/09/22 10:32 Dose: 650 mg Hydrocodone Bitart/Acetaminophen (Hydrocodone/Apap 5-325mg 1 Each Tab) 1 each PO Q4HR PRN PRN Reason: Moderate Pain (Scale 4 to 6) Albuterol/Ipratropium (Ipratropium-Albuterol 3 Ml Neb) 3 ml INHALATION RT-Q2H PRN PRN Reason: Shortness Of Breath Or Wheezing Last Admin: 04/29/22 23:30 Dose: 3 ml Albuterol/Ipratropium (Ipratropium-Albuterol 3 Ml Neb) 3 ml INHALATION RT-QID [facility] Last Admin: 05/09/22 15:52 Dose: 3 ml Amiodarone HCl (Amiodarone 200 Mg Tab) 200 mg PO DAILY [facility] Stop: 05/11/22 10:00 Last Admin: 05/09/22 09:10 Dose: 200 mg Ascorbic Acid (Ascorbic Acid 500 Mg Tab) 500 mg PO DAILY [facility] Last Admin: 05/09/22 09:11 Dose: 500 mg Aspirin (Aspirin 325 Mg Tab) 325 mg PO DAILY [facility] Last Admin: 05/09/22 09:09 Dose: 325 mg Benzocaine/Menthol (Benzocaine/Menthol Lozeng 1 Each Lozenge) 1 each MUCOUS MEM Q2HR PRN PRN Reason: Sore Throat Last Admin: 05/02/22 15:04 Dose: 1 each Bisacodyl (Bisacodyl 10 Mg Supp) 10 mg RECTAL DAILY PRN PRN Reason: Constipation Last Admin: 05/09/22 09:10 Dose: 10 mg Budesonide/Formoterol Fumarate (Symbicort 160-4.5 Mcg Inhaler) 2 puff INHALATION RT-BID [facility] Last Admin: 05/09/22 08:35 Dose: 2 puff Dapagliflozin (Dapagliflozin Propanediol 5 Mg Tablet) 5 mg PO DAILY [facility] Last Admin: 05/09/22 09:20 Dose: 5 mg Dextrose/Water (Dextrose 50% Syringe 50 Ml) 25 ml IVP PER PROTOCOL PRN; Protocol PRN Reason: Hypoglycemia Dextrose/Water (Dextrose 50% Syringe 50 Ml) 50 ml IVP PER PROTOCOL PRN; Protocol PRN Reason: Hypoglycemia Guaifenesin/Dextromethorphan (Guaifenesin-Dm 600/30mg 1 Each Tab.Er.12h) 1 each PO Q12HR [facility] Last Admin: 05/09/22 09:20 Dose: 1 each Daptomycin 360 mg/ Sodium (Chloride) 50 mls @ 100 mls/hr IVPB Q24H [facility]; Protocol Last Admin: 05/08/22 23:34 Dose: 100 mls/hr Piperacillin Sod/Tazobactam (Sod 3.375 gm/ Sodium Chloride) 100 mls @ 25 mls/hr IVPB Q8HR [facility]; Protocol Last Admin: 05/09/22 09:04 Dose: 25 mls/hr Insulin Aspart (Insulin Aspart (Novolog) 100 Unit/Ml Vial) 0 unit SQ ACHS [facility]; Protocol Last Admin: 05/09/22 11:30 Dose: 2 unit Insulin Aspart (Insulin Aspart (Novolog) 100 Unit/Ml Vial) 5 unit SQ AC-TID [facility] Last Admin: 05/09/22 11:30 Dose: 5 unit Insulin Detemir (Insulin Detemir (Levemir) 100 Unit/Ml Syr) 24 unit SQ HS [facility] Last Admin: 05/08/22 20:45 Dose: 24 unit Lidocaine (Lidocaine 5% Patch) 2 patch TOPICAL DAILY [facility]; Protocol Last Admin: 05/09/22 09:20 Dose: 2 patch Magnesium Hydroxide (Magnesium Hydroxide 2,400 Mg/10 Ml Cup) 2,400 mg PO BID P RN PRN Reason: Constipation Last Admin: 04/22/22 07:08 Dose: 2,400 mg Metoprolol Tartrate (Metoprolol Tartrate 25 Mg Tab) 25 mg PO BID [facility] Last Admin: 05/09/22 09:11 Dose: 25 mg Miscellaneous Information (Potassium Replacement Protocol 1 Each Misc) 1 each MISCELLANE DAILY PRN; Protocol PRN Reason: Per Protocol Miscellaneous Information (Magnesium Replacement Protocol 1 Each Misc) 1 each MISCELLANE DAILY PRN; Protocol PRN Reason: Per Protocol Non-Formulary Medication (Non Formulary Drug) 1 each SQ DAILY [facility] Last Admin: 05/09/22 09:11 Dose: 1 each Ondansetron HCl (Ondansetron 4 Mg/2 Ml Vial) 4 mg IVP Q6HR PRN PRN Reason: Nausea And Vomiting Last Admin: 04/27/22 09:22 Dose: 4 mg Pantoprazole Sodium (Pantoprazole 40 Mg/10 Ml Vial) 40 mg IVP BID [facility] Last Admin: 05/09/22 09:03 Dose: 40 mg Potassium Chloride (Potassium Chloride Er 20 Meq Tab.Er) 20 meq PO DAILY [facility] Last Admin: 05/09/22 09:10 Dose: 20 meq Senna/Docusate Sodium (Sennosides-Docusate Sodium 1 Each Tab) 2 each PO HS [facility] Last Admin: 05/08/22 20:34 Dose: 2 each Sodium Chloride (Sodium Chloride 0.9% Flush 10 Ml Syringe) 10 ml IV BID [facility] Last Admin: 05/09/22 09:20 Dose: 10 ml Tamsulosin HCl (Tamsulosin 0.4 Mg Cap.Er.24h) 0.4 mg PO PC-BRKFST [facility] Last Admin: 05/09/22 09:09 Dose: 0.4 mg On examination: VITAL SIGNS: 97.9, 16, 19, 107/73, 92 % on 2 L GENERAL APPEARANCE: Up in chair, HEENT: Normal external appearance of nose and ear. Oral cavity normal EYES: Pupils equal. Conjunctiva normal. NECK: JVD not raised. Mass not palpable. RESPIRATORY: Respiratory effort increased. Lungs diminished breath sounds. CARDIOVASCULAR: First and second sounds normal. Edema present ABDOMEN: Soft. Liver and spleen not palpable. No tenderness. No mass palpable. Mooney catheter PSYCHIATRY: AO 3, mood and affect normal INVESTIGATIONS, reviewed in the clinical context: 05/09/2022: WBC 14.70 globin 6.6 platelets 241 potassium 4.1. 51 and creatinine 1.27 05/08/2022: WBC 14.9 hemoglobin 5.9 platelets 27 BUN 68 creatinine 1.48 05/07/2022: WBC 23.1 hemoglobin 6.2 platelets 334 potassium 4.2 BUN 77 creatinine 1.48 AST 69 ALT 70 05/06/2022: WBC 19.7 hemoglobin 6.2 platelets 322 potassium 3.8. 83 creatinine 1.50 05/05/2022: WBC 18.1 hemoglobin 6.7 potassium 4. 85 creatinine 1.46 05/04/2022: WBC 16 hemoglobin 6.1 platelets 362 potassium 3.7 BUN 75 creatinine 1.75 Limited 2-D echocardiogram [May 01]: EF 45%. [id number] MR, moderate aortic stenosis 05/01/2022: WBC 15.3 hemoglobin 7.2 platelets 305 potassium 4. [address] chest [April 29]: Moderate partial obliterate right pleural effusion, left pleural effusion, cardiomegaly. 04/24/2022: WBC 9.2 hemoglobin 7.1 platelets 122 potassium 5.1 BUN 77 creatinine 2.97 AST 1270 ALT 1038 WBC 8.2 hemoglobin 7.5 platelets 111 sodium 135 progression 6 BUN 67 creatinine 3.43 AST 3595 ALT 1512 Limited 2-D echocardiogram: EF 45-50%. Inferior wall hypokinesis. Moderate MR. Moderate pulmonary hypertension with moderate TR. Assessment and plan -Acute on chronic congestive heart exacerbation from systolic/diastolic dysfunction EF 45-50%:, precipitated by A. fib: Better Off Bumex -pneumonia, short of breath, infiltrate on chest x-ray, increasing white count and procalcitonin: Better IV cefepime-completed -Acute hypoxic respiratory failure from pulmonary edema/pneumonia: 2 L nasal cannula -Diabetes Mellitus type 2 , uncontrolled with hyperglycemia, Victoza , Actos-discontinue. Levemir 24 units daily at bedtime. 5 units NovoLog with meals. farxiga 5 mg -Paroxysmal atrial fibrillation status post modified [place]-Maze procedure,: With rapid ventricular rate: Now - sinus rhythm amiodarone ,Lopressor. Eliquis held because of GI bleed -Acute GI bleed from the third and fourth portion of duodenum. EGD encountered fresh blood with blood clots. No obvious source noted. Patient is on aspirin. Often eliquis. Patient has required 5 units of blood loss 4 days. We are limited in terms of expertise in terms of further endoscopy correction of the same. Patient may need to go to a higher level of care where enteroscope/additional means to look down in the duodenum to close off source of bleeding. This was discussed with Dr. Fiore. He will discuss this with the cardiothoracic team. -acute renal failure on chronic kidney disease stage II with renal failure is probably prerenal azotemia, cardiorenal syndrome.: Creatinine peaked at 3.43. Creatinine 1.46 -hyperkalemia secondary to acute renal failure: Corrected Received Lokelma. Renal diet -Acute hepatitis, likely ischemic: Better Follow closely. GI services not available in the hospital. Hold any hepatic offensive medications. Follow LFTs patient as patient started back on amiodarone -Acute COPD exacerbation, in a smoker DuoNeb. Symbicort -Hyperlipidemia Lipitor -Sacral decubitus ulcer: With abscess. Large abscess was encountered. 12 x 10 x 4 cm deep. Cleaned out by Dr. Fiore 05/08/2022. Follow with ID. -Metabolic alkalosis from diuresis Diamox - coronary artery disease with previous PCI Aspirin, Lasix, Imdur, Lopressor -Acute postprocedure blood loss anemia as expected from surgery, also hospital- acquired anemia from blood draws Received PRBC -Chronic nicotine dependence - post mitral valve failure, status post CABG, status post PFO closure: Currently qbjw-lo-eeuemoji MR -Moderate aortic stenosis -Moderate secondary pulmonary hypertension Patient received a unit of blood today. Remains on PPI. Has been off eliquis. On aspirin. Had another unit of PRBC today.. Follow H&H. If bleeding doesn't stop patient will need a transfer to tertiary center for further endoscopy.
[2022-05-09 17:01] LABS: Glucose,Whole Blood 173 mg/dL (70-110)
[2022-05-09 20:15] LABS: Glucose,Whole Blood 230 mg/dL (70-110)
[2022-05-09] MEDS: INSULIN DETEMIR (LEVEMIR) 100 UNIT/ML SYR SQ SCH (20:31)
[2022-05-09] MEDS: SENNOSIDES-DOCUSATE SODIUM 1 EACH TAB PO SCH (20:32)
[2022-05-10] MEDS: PIPERACILLIN-TAZOBACTAM 3.375 GM in SODIUM CHLORIDE 0.9% 100 ML IVPB SCH ×3 (00:14→16:34)
[2022-05-10] MEDS: ACETAMINOPHEN TAB 325 MG TAB PO PRN ×2 (00:30→09:27)
[2022-05-10 06:29] LABS: Anisocytosis Slight; HCT 23.9 % (39.0-53.0); HGB 7.6 gm/dL (13.0-17.5); Hypochromasia Marked; MCH 30.7 pg (25.0-35.0); MCHC 31.9 g/dL (31.0-37.0); MCV 96.2 fL (80.0-100.0); Macrocytosis Slight; Mean Platelet Volume 8.1; Platelet Count 219 k/uL (150-450); Poikilocytosis Moderate; RBC 2.48 m/uL (4.30-5.90); RDW 18.8 % (11.5-15.5); WBC 12.6 k/uL (3.8-10.6)
[2022-05-10 06:38] LABS: Calcium 8.1 mg/dL (8.4-10.2); Potassium 4.2 mmol/L (3.5-5.1)
[2022-05-10 06:54] LABS: Glucose,Whole Blood 108 mg/dL (70-110)
[2022-05-10] MEDS: INSULIN ASPART (NovoLOG) 100 UNIT/ML VIAL SQ SCH ×7 (06:57→21:06)
--- NOTE | 2022-05-10 08:09 | P.PN ---
Subjective Progress Note Date: 05/10/22 Principal diagnosis: Status post CABG The patient is a 72-year-old gentleman who is status post CABG as well as mitral valve repair with surgery complicated by recurrent pleural effusion. 05/07/2022 The patient was seen this morning. He is overall stable from a perivascular st andpoint of view. He is not on any vasopressors at this point. He does have history of hematuria but that seems to be cleared this morning. Currently he is on aspirin. He does have also history of paroxysmal atrial fibrillation and he was receiving oral anticoagulation which was stopped. May 082021 The patient was seen and evaluated this morning. He remains stable from a cardiovascular standpoint of view. His hemoglobin this morning is 5.9 and he is in process of having one unit of packed RBC to be transfused. He was seen by the urology service and currently antiplatelet beside aspirin and anticoagulation are on hold. May 092021 The patient was seen and evaluated this morning. The hemoglobin this morning is 6.6 and it was 6.8 yesterday. Overall he's stable with a soft blood pressure. He remains asymptomatic. He remains on antiplatelet with aspirin only. May 102021 The patient was seen and evaluated this morning. Hemoglobin this morning is above 7. He seems otherwise stable from a perivascular standpoint of view. He is of oral anticoagulation because of gastrointestinal bleeding and hematuria. Objective - Vital Signs Vital signs: Vital Signs Temp 97.9 F 05/10/22 04:00 Pulse 60 05/10/22 07:00 Resp 22 05/10/22 07:00 BP 107/44 05/10/22 07:00 Pulse Ox 96 05/10/22 07:00 FiO2 100 04/22/22 16:00 Intake & Output 05/09/22 05/10/22 05/10/22 18:59 06:59 18:59 Intake Total 2270 280 Output Total 250 975 0 Balance 2019 - 0 Weight 92.5 kg Intake: IV 200 280 0.9 130 DAPTOmycin 360 mg In 50 Sodium Chloride 0.9% 50 ml @ 100 mls/hr IVPB Q24H [facility] Rx#:[id number] Piperacillin-Tazobactam 3 200 100 .375 gm In Sodium Chloride 0.9% 100 ml @ 25 mls/hr IVPB Q8HR [facility] Rx# :[id number] Oral 1400 Blood Product 670 Rc As-1 Unit 310 [id number] Output: Urine 250 975 0 Other: Voiding Method Urinal Urinal # Voids 1 1 # Bowel Movements 1 1 ABP, PAP, CO, CI - Last Documented Arterial Blood Pressure 137/47 Pulmonary Artery Pressure 67/18 Cardiac Output 5.8 Cardiac Index 2.8 - Constitutional General appearance: Present: no acute distress - Respiratory Respiratory: bilateral: diminished - Cardiovascular Rhythm: regular - Labs CBC & Chem 7: 05/10/22 05:10 05/10/22 05:10 Labs: Abnormal Lab Results - Last 24 Hours (Table) 05/07/22 05/09/22 05/09/22 Range/Units 18:25 11:16 17:00 WBC (3.8-10.6) k/uL RBC (4.30-5.90) m/uL Hgb (13.0-17.5) gm/dL Hct (39.0-53.0) % RDW (11.5-15.5) % BUN (9-20) mg/dL Creatinine (0.66-1.25) mg/dL Glucose (74-99) mg/dL POC Glucose (mg/dL) 175 H 173 H (70-110) mg/dL Calcium (8.4-10.2) mg/dL Crossmatch See Detail Blood Bank Comment Sent to [facility] A Reference Lab Result See BBK REF Reports A 05/09/22 05/10/22 05/10/22 Range/Units 20:14 05:10 05:10 WBC 12.6 H (3.8-10.6) k/uL RBC 2.48 L (4.30-5.90) m/uL Hgb 7.6 L (13.0-17.5) gm/dL Hct 23.9 L (39.0-53.0) % RDW 18.8 H (11.5-15.5) % BUN 40 H (9-20) mg/dL Creatinine 1.33 H (0.66-1.25) mg/dL Glucose 70 L (74-99) mg/dL POC Glucose (mg/dL) 230 H (70-110) mg/dL Calcium 8.1 L (8.4-10.2) mg/dL Crossmatch Blood Bank Comment Reference Lab Result Microbiology - Last 24 Hours (Table) 05/06/22 14:42 Gram Stain - Final Sputum Sputum Culture - Final Margo albicans Aspergillus fumigatus 05/03/22 05:54 Blood Culture - Final Blood No Growth after 144 hours Assessment and Plan Assessment: Assessment #1 status post CABG and mitral valve repair #2 paroxysmal atrial fibrillation #3 recurrent pleural effusion #4 hematuria #5 anemia Plan Monitor the hemoglobin very closely. Hemoglobin this morning is above 7 Continue aspirin only and hold oral anticoagulation Follow-up with the patient
--- NOTE | 2022-05-10 08:11 | XR ---
EXAMINATION TYPE: XR chest 2V DATE OF EXAM: 05/10/2022 COMPARISON: 05/09/2022 HISTORY: Shortness of breath TECHNIQUE: Frontal and lateral views of the chest are obtained. FINDINGS: Scattered senescent parenchymal changes noted. Hyperinflation compatible with COPD. Medial sternotomy wires along with cardiac valve ring are redemonstrated. Pleural parenchymal opacity right lung base remains unchanged at this time. Heart size is stable. Mediastinal structures are stable and grossly unremarkable. No evidence for hilar prominence. Degenerative changes dorsal spine. IMPRESSION: 1. Continued right basilar pleural-parenchymal opacity and effusion with cardiomegaly. Postoperative changes as noted.
[2022-05-10] MEDS: IPRATROPIUM-ALBUTEROL 3 ML NEB INHALATION SCH ×4 (08:29→20:53)
[2022-05-10] MEDS: SYMBICORT 160-4.5 MCG INHALER INHALATION SCH ×2 (08:30→20:53)
[2022-05-10] MEDS: AMIODARONE 200 MG TAB PO SCH (09:22)
[2022-05-10] MEDS: TAMSULOSIN 0.4 MG CAP.ER.24H PO SCH (09:22)
[2022-05-10] MEDS: ASPIRIN 325 MG TAB PO SCH (09:22)
[2022-05-10] MEDS: ASCORBIC ACID 500 MG TAB PO SCH (09:22)
[2022-05-10] MEDS: METOPROLOL TARTRATE 25 MG TAB PO SCH ×2 (09:23→21:07)
[2022-05-10] MEDS: DAPAGLIFLOZIN PROPANEDIOL 5 MG TABLET PO SCH (09:23)
[2022-05-10] MEDS: LIDOCAINE 5% PATCH TOPICAL SCH (09:23)
[2022-05-10] MEDS: guaiFENesin-DM 600/30MG 1 EACH TAB.ER.12H PO SCH ×2 (09:23→21:05)
[2022-05-10] MEDS: POTASSIUM CHLORIDE ER 20 MEQ TAB.ER PO SCH (09:24)
[2022-05-10] MEDS: PANTOPRAZOLE 40 MG/10 ML VIAL IVP SCH ×2 (09:24→21:07)
[2022-05-10] MEDS: NON FORMULARY DRUG SQ SCH (09:27)
[2022-05-10] MEDS: BENZOCAINE/MENTHOL LOZENG 1 EACH LOZENGE MUCOUS MEM PRN (09:27)
[2022-05-10] MEDS: BUMETANIDE 0.25 MG/ML 10 ML VIAL IV SCH (10:00)
--- NOTE | 2022-05-10 11:01 | P.PN ---
Subjective Progress Note Date: 05/10/22 Principal diagnosis: Status post CABG. This is a pleasant 72-year-old male patient with a known history of osteoarthritis was multiple orthopedic surgeries, diabetes mellitus, hyp erlipidemia, chronic tobacco dependence, paroxysmal atrial fibrillation. He was recently found to have coronary artery disease with a total occlusion of the RCA with collateral circulation, obtuse marginal with 99% stenosis and mild LAD disease. His ejection fraction is 45%. He was also found to have severe mitral regurgitation, moderate central tricuspid regurgitation as well as evidence of a PFO with [id number]-[id number] shunt. He was recommended coronary artery bypass grafting and valvular repair. He was brought in to the hospital yesterday 04/20/2022 for an elective procedure. He did undergo mitral valve repair, coronary bypass grafting 3 with an SVG to the first diagonal, obtuse marginal and posterior descending coronary arteries, closure of a PFO, modified Castanon-Maze procedure and litigation of the left atrial appendage. He was successfully extubated within the 6 hour protocol. He is seen today in consultation in the intensive care unit. He is ready sitting up in a chair. Awake and alert in no acute distress. He is maintaining O2 saturation in the 90s on 3 L/m per nasal cannula. He has insulin drip at 5 units per hour. Lactated Ringer's at 20 miles per hour. He initially was on epinephrine drip that has been discontinued. He did receive 2 units of packed red blood cells, 2 units of fresh frozen plasma and 1 unit of platelets. White count 8.9. Hemoglobin 7.7. Platelets 139,000. Sodium 142. Potassium 5.5. Chloride 111. Bicarb 23. BUN 32. Creatinine 1.73. Glucose 125. AST 1:30. ALT 37. Magnesium 3.6. Mean arterial blood pressure in the 70s. PA pressures 50/18. CVP 12. Cardiac output 6.5. Cardiac index 3.1. He is on bronchodilators. Working well with the incentive spirometer. Chest x-ray reveals scattered opacities bilaterally. No evidence of pleural effusion, focal consolidation or pneumothorax. Mediastinal 2, left pleural chest tube in place. He is continued on oral amiodarone. Heparin for DVT prophylaxis. The patient is seen today in 04/21/2022 in follow-up in the intensive care unit. He is currently sitting up in a recliner at the bedside. Maintaining O2 saturations on 5 L/m per nasal cannula. He did require BiPAP support last evening and was placed on 14/10 and 100% FiO2 eventually decreased to 40%. He is currently on a Lasix drip at 5 mg per hour. Dopamine drip at 2 mcg/kg/m. Cardiac output 4.6. Cardiac index 2.2. He is dual pacing. He has normal saline at 20 ML's per hour. He is unemployed about 750 MLS on the incentive spirometer. His x-ray continues to show cardiomegaly with ongoing mild pulmonary vascular congestion. Increasing patchy bibasilar opacities/atelectasis. Right IJ [place]Varghese catheter remains in place. He is sternal and left sided chest tubes remain in place. No pneumothorax. White count 9.6. Hemoglobin 7.3. Platelets 144. Sodium 132. Potassium 5.4. Bicarb 21. BUN 41. Creatinine 2.53. Glucose 175. AST 1309. ALT 547. Albumin 3.6. The patient does have a cyst the year smoking history. He remains on DuoNeb inhalations 4 times a day and when necessary. Heparin for DVT prophylaxis. Progress note dated 04/22/2022. 72-year-old male, who is currently seen in room 267. He's postop day #3. The patient's currently on 8 L high flow oxygen. He is getting dopamine at 2 mcg/kg/m, a Lasix drip at 10 mg an hour, insulin at 1.5 units an hour, and saline at 20 mL an hour. Labs today include a white count of 8.5, hemoglobin 7.4, hematocrit 23.3, and a platelet count of 135,000. Sodium 131, potassium 5.8, chlorides 102, CO2 23, BUN 51, and creatinine 3.1. AST was 2217. ALT is 1006. Chest x-ray shows cardiomegaly, and pulmonary vascular congestion. Reevaluated today on 05/05/22, remains in the ICU, remains marginal at best. Today the patient is feeling a bit better, and he would likely feel even better once he gets another unit of packed RBCs continues to have low hemoglobin. Chest x-ray showed minimal atelectasis, no clear-cut evidence of congestive he art failure. Patient is sitting at a bedside chair, he is on 2 L nasal cannula, able to achieve about 1000 mL via incentive spirometry. No pain, no discomfort, continues to have a sacral decubitus ulcer stage II3. Hemoglobin today is 6.7, was 6.1 yesterday, and he will receive another unit of packed RBCs today. Reevaluated today on 05/06/22, remains in the ICU, patient is doing well, requiring another unit of packed RBCs today, patient is having hematuria, and that's going to be addressed by urology which was consulted. Pulmonary-arboleda is about the same, remains on 2 L nasal cannula, chest x-ray is showing evidence of interstitial edema and small tiny left-sided and right-sided pleural effusions, not large enough to consider thoracentesis at this point yet. He remained generally weak and short of breath with any activity. Hemoglobin today is 6.2, WBC count is 19.7, patient was placed on daptomycin and Eraxis empirically by infectious disease on the case. All cultures have been nondiagnostic so far including blood pleural effusion cultures and sputum cultures. Patient does hav e a sacral decubitus ulcer that may be causing his leukocytosis Progress note dated 05/07/2022. 72-year-old male status post four-vessel bypass grafting, mitral valve repair, and Castanon-Maze procedure. The patient is currently on 2 L of oxygen. Not receiving any IV fluids. He, he's had problems with anemia, he is receiving his sixth unit of blood. Surgery was consulted. White count 23.1, hemoglobin 6.2, hematocrit 20.5, and platelet count 334,000. Sodium 136, potassium 4.2, chlorides 100, due to 27, anion gap 9, BUN 77, and creatinine 1.48. Chest x-ray shows cardiomegaly, and small right pleural effusion. Progress note dated 05/08/2022. 72-year-old male, status post four-vessel bypass grafting, mitral valve repair, and Castanon-Maze procedure. The patient is seen again in room 267, in the intensive care unit. He's on 2 L of oxygen. He is on no IV fluids. Because of ongoing anemia, the patient is receiving his 7 unit of packed red blood cells. He is scheduled for an EGD today. White count 14.9, hemoglobin 5.9, hematocrit 18.8, and platelet count 257,000. Sodium 137, potassium 3.9, chlorides 105, CO2 29, BUN 68, and creatinine 1.48. Chest x-ray show some cardiomegaly, and some mild pulmonary vascular congestion. Chest x-ray is largely unchanged. Progress note dated 05/09/2022. A 72-year-old male, again seen in room 267. He status post four-vessel bypass grafting, and mitral valve repair, along with a Castanon-Maze procedure. The patient has received a total of 7 units of packed red blood cells since being here in the ICU. He is currently on 2 L of oxygen. Not receiving any IV fluids. He did have an EGD yesterday, which did not reveal any active bleeding although there was blood in the gastrointestinal tract. Clinically, he is feeling a bit better today. White count 14.7, hemoglobin 6.6, hematocrit 20.7, platelet count 241,000. Sodium 137, potassium 4.1, chlorides 107, CO2 27, BUN 51, creatinine 1.27. Chest x-ray shows cardiomegaly with small right-sided effusion. Progress note dated 05/10/2022. 72-year-old male, again seen in room 267. He's on 2 L of oxygen. No IV fluids. The patient did receive another unit of packed red blood cells, making his total of 8 units. The patient sitting in a chair next to his bed. He was complaining about his blood sugars being out of control, and the fact that he was being fed to many carbohydrates. White count 12.6, hemoglobin 7.6, hematocrit 23.9, and platelet count 219,000. Sodium 139, potassium 4.2, chlorides 107, CO2 26, BUN 40, creatinine 1.33. Chest x-ray shows cardiomegaly, and some basilar atelectatic changes. Objective - Vital Signs Vital signs: Vital Signs Temp 97.9 F 05/10/22 04:00 Pulse 67 05/10/22 08:32 Resp 22 05/10/22 07:00 BP 107/44 05/10/22 07:00 Pulse Ox 96 05/10/22 07:00 FiO2 100 04/22/22 16:00 Intake & Output 05/09/22 05/10/22 05/10/22 18:59 06:59 18:59 Intake Total 2270 280 Output Total 250 975 0 Balance 2020 -695 0 Weight 92.5 kg Intake: IV 200 280 0.9 130 DAPTOmycin 360 mg In 50 Sodium Chloride 0.9% 50 ml @ 100 mls/hr IVPB Q24H [facility] Rx#:[id number] Piperacillin-Tazobactam 3 200 100 .375 gm In Sodium Chloride 0.9% 100 ml @ 25 mls/hr IVPB Q8HR [facility] Rx# :[id number] Oral 1400 Blood Product 670 Rc As-1 Unit 310 [id number] Output: Urine 250 975 0 Other: Voiding Method Urinal Urinal # Voids 1 1 # Bowel Movements 1 1 ABP, PAP, CO, CI - Last Documented Arterial Blood Pressure 137/47 Pulmonary Artery Pressure 67/18 Cardiac Output 5.8 Cardiac Index 2.8 - Exam No acute distress, oriented 3. No audible wheezing, use of accessory muscles, or conversational dyspnea. The patient looks pale. The patient remains on 2 L of oxygen. HEENT examination is grossly unremarkable. Neck supple. Full range of motion. No adenopathy thyromegaly or neck vein distention. Cardiovascular examination reveals regular rhythm rate. S1-S2 normal. No S3 or S4. No discernible murmur noted. Heart rate is 67 bpm. Heart sounds are distant. Lungs reveal scattered bilateral rhonchi. Crackles at the bases. No wheezes. Breath sounds are equal bilaterally. Saturations are 96 %. Abdomen soft bowel sounds are heard. No masses or tenderness. Extremities are intact. No cyanosis clubbing or edema. Skin is without rash or lesion. Neurologic examination is brief but nonfocal. - Labs CBC & Chem 7: 05/10/22 05:10 05/10/22 05:10 Labs: Abnormal Lab Results - Last 24 Hours (Table) 05/07/22 05/09/22 05/09/22 Range/Units 18:25 11:16 17:00 WBC (3.8-10.6) k/uL RBC (4.30-5.90) m/uL Hgb (13.0-17.5) gm/dL Hct (39.0-53.0) % RDW (11.5-15.5) % BUN (9-20) mg/dL Creatinine (0.66-1.25) mg/dL Glucose (74-99) mg/dL POC Glucose (mg/dL) 175 H 173 H (70-110) mg/dL Calcium (8.4-10.2) mg/dL Crossmatch See Detail 05/09/22 05/10/22 05/10/22 Range/Units 20:14 05:10 05:10 WBC 12.6 H (3.8-10.6) k/uL RBC 2.48 L (4.30-5.90) m/uL Hgb 7.6 L (13.0-17.5) gm/dL Hct 23.9 L (39.0-53.0) % RDW 18.8 H (11.5-15.5) % BUN 40 H (9-20) mg/dL Creatinine 1.33 H (0.66-1.25) mg/dL Glucose 70 L (74-99) mg/dL POC Glucose (mg/dL) 230 H (70-110) mg/dL Calcium 8.1 L (8.4-10.2) mg/dL Crossmatch Microbiology - Last 24 Hours (Table) 05/06/22 14:42 Gram Stain - Final Sputum Sputum Culture - Final Margo albicans Aspergillus fumigatus 05/03/22 05:54 Blood Culture - Final Blood No Growth after 144 hours Assessment and Plan Assessment: Coronary artery disease with valvular heart disease. Status post mitral valve repair, coronary bypass grafting 3 with an SVG to the first diagonal, obtuse marginal and posterior descending coronary arteries, closure of a PFO, modified Castanon-Maze procedure and litigation of the left atrial appendage. Postoperative day #21. Acute hypoxemic respiratory failure secondary to above. Currently on 2 L of oxygen. Paroxysmal atrial fibrillation. Chronic and ongoing tobacco dependence. Chronic obstructive pulmonary disease, FEV1 value of 52% of predicted. Acute on chronic anemia, status post 7 units packed red blood cells. Osteoarthritis. Diabetes mellitus. Hyperlipidemia. Plan: Plan dated 04/22/2022. The patient will absolutely not wearing the BiPAP device. The patient is on dopamine, Lasix drip, and insulin drip. Today is postop day #3. Labs, x-rays, and medications are reviewed. The patient's overall prognosis remains guarded. We will continue to follow and make recommendations along the way. The patient continues on DVT and GI prophylaxis. He continues on breathing treatments. Prognosis is guarded. Plan dated 05/07/2022. The patient is receiving his sixth unit of blood. Surgery has been consulted for his ongoing anemia, and suspected GI bleed. We will continue to follow this patient and make recommendations along the way. Labs, x-rays, and medications are reviewed. Clinically, the patient looks reasonable, but pale. He's been weaned down to 2 L of oxygen. Prognosis is guarded. Plan dated 05/08/2022. The patient is currently receiving his seventh unit of blood. He is scheduled for an EGD today. He's on 2 L of oxygen. No IV fluids. The patient's overall prognosis remains very guarded. We will continue to follow make recommendations along the way. Labs, x-rays, and medications are all reviewed. Plan dated 05/09/2022. The patient appears to be doing a bit better today. He's received a total of 7 units of PRBCs. He had an EGD yesterday. His sacral decubitus ulcer was also debrided yesterday. Labs, x-rays, and medications are reviewed. We will continue to follow. Prognosis is guarded. He still a bit anemic today, but no additional decision has been made about additional blood at this time. We will continue to follow make recommendations along the way. Plan dated 05/10/2022. The patient appears to be doing about the same to slightly better. He did receive 1 additional unit of blood. That makes a total of 8 units of packed red blood cells. The patient's on 2 L of oxygen. No IV fluids. His hemoglobin this morning was 7.6. We will continue to follow. His blood glucose today was better at 108. Labs, x-rays, and medications are reviewed. Prognosis is guarded. Time with Patient: Less than 30
[2022-05-10 11:13] LABS: Glucose,Whole Blood 229 mg/dL (70-110)
--- NOTE | 2022-05-10 11:32 | P.PN ---
Subjective Progress Note Date: 05/10/22 Principal diagnosis: Severe mitral valve regurgitation, coronary artery disease, paroxysmal atrial fibrillation, patent foramen ovale, tricuspid regurgitation, chronic systolic congestive heart failure. Past medical history significant for hypertension, hyperlipidemia, coronary artery disease with history of previous PCI, non-ST elevated myocardial infarction in November 2021, ischemic cardiomyopathy with EF 40- 45%, right internal carotid stenosis 50-79%, renal insufficiency, anemia with history of GI bleed in November 2021 S/P transfusion PRBCs, diabetes mellitus type 2, osteoarthritis, severe COPD, chronic ongoing nicotine dependence, remote history of pneumonia, chronic low back pain and hearing disorder. Nasal swab positive for MSSA preoperative POD #21 Mitral valve repair with 28 mm physio-2 ring, CABG 3 with saphenous vein grafts to first diagonal, obtuse marginal, posterior descending coronary arteries, closure of PFO, endovascular vein harvest, modified Castanon maze procedure with full left-sided lesion set and ligation of the left atrial appendage, SCOTT by anesthesia. Protamine reaction intraoperative Postoperative acute blood loss anemia, expected given his history of anemia, hemodilution and cardiopulmonary bypass Acute on chronic kidney failure, likely from hypotension from intraoperative protamine reaction Elevated transaminases, likely from hypotension from intraoperative protamine reaction Left pleural effusion, status post left-sided thoracentesis with removal of [address] Aguilar on 04/30/22 and again on 05/04/22 for 550 mL fluid Leukocytosis, afebrile, CRP and pro-calcitonin trending down, sputum culture negative, no pneumonia, no UTI, blood culture preliminary negative, likely due to sacral stage II ulcer The patient was seen and examined in follow-up today 05/10/2022 at his bedside in the intensive care unit. Currently the patient is sitting up to bedside chair, is awake, alert, oriented 3 and is in no acute apparent distress. He is tolerating his breakfast. He denies any complaints of shortness of breath at this time, is complaining of some generalized pain to his coccyx. He although does report that he feels somewhat better today than he has over the past couple of days. Oxygen saturations are 98% on 2 L nasal cannula and he is achieving 1000 mL on his incentive spirometry with encouragement. His hemoglobin was 6.6 yesterday and did receive one unit of packed red blood cells transfusion. Laboratory results today show a WBC count of 12.6, hemoglobin 7.6, hematocrit 23.9, platelets 219, sodium 139, potassium 4.2, chloride 107, CO2 26, BUN 40, creatinine 1.33, and calcium 8.1. He remains on daptomycin and Zosyn for antibiotic coverage. WBC count continues to trend down this morning, and cultures remain negative except for Margo growing in his sputum. Bedside telemetry showing normal sinus rhythm heart rate 66 BPM. Is been afebrile the last 24 hours. Chest x-ray has been reviewed. He reports he has been up ambulating in the intensive care unit hallway with standby assistance of nursing and therapy staff and has been making more progress within the last couple of days. Objective - Vital Signs Vital signs: Vital Signs Temp 97.9 F 05/10/22 04:00 Pulse 67 05/10/22 08:32 Resp 22 05/10/22 07:00 BP 107/44 05/10/22 07:00 Pulse Ox 96 05/10/22 07:00 FiO2 100 04/22/22 16:00 Intake & Output 05/09/22 05/10/22 05/10/22 18:59 06:59 18:59 Intake Total 2270 280 Output Total 250 975 0 Balance 2020 -695 0 Weight 92.5 kg Intake: IV 200 280 0.9 130 DAPTOmycin 360 mg In 50 Sodium Chloride 0.9% 50 ml @ 100 mls/hr IVPB Q24H [facility] Rx#:[id number] Piperacillin-Tazobactam 3 200 100 .375 gm In Sodium Chloride 0.9% 100 ml @ 25 mls/hr IVPB Q8HR [facility] Rx# :[id number] Oral 1400 Blood Product 670 Rc As-1 Unit 310 [id number] Output: Urine 250 975 0 Other: Voiding Method Urinal Urinal # Voids 1 1 # Bowel Movements 1 1 ABP, PAP, CO, CI - Last Documented Arterial Blood Pressure 137/47 Pulmonary Artery Pressure 67/18 Cardiac Output 5.8 Cardiac Index 2.8 - Exam CONSTITUTIONAL: Sitting up to the bedside chair in the intensive care unit, appears comfortable, cooperative, no apparent acute distress. HEENT: Neck is supple, no JVD, no lymphadenopathy. RESPIRATORY: Lungs sounds essentially clear throughout, diminished to his bilateral bases. Respirations are symmetrical and nonlabored. Currently on 2 L nasal cannula oxygen with oxygen saturations 98%. Able to achieve 1000 mL on his incentive spirometry. Strong cough. CARDIOVASCULAR: Regular rhythm and rate. S1 and S2 present, negative for S3, gallop or murmur. Sternum is stable. Palpable peripheral pulses bilaterally, +1 edema to his bilateral lower extremities. No calf pain or tenderness noted. Heart hugger in place with patient demonstrating appropriate use. Knee-high RAFAEL hose and sequential compression devices in place to his bilateral lower extremities. Bedside telemetry showing normal sinus rhythm with heart rate 66 BPM. GASTROINTESTINAL: Abdomen soft, nontender, nondistended. Active bowel sounds present 4 quadrants. Tolerating diet. Passing flatus. No guarding or rigidity. Small tar-colored Bowel movement this morning 05/10/2022. GENITOURINARY: Continues to void. 825 mL of urine output in the last 8 hours. INTEGUMENTARY: Skin is warm and dry with no evidence of clubbing or cyanosis. Midline sternal incision clean dry and well approximated, covered with dry intact dressing. Bilateral lower extremity EVH sites well approximated without redness or drainage. Stage II to III decubitus ulcer present to his buttocks covered with optifoam. MUSKULOSKELETAL: Able to move all extremities, strength equal bilaterally, generalized weakness. PSYCHIATRIC: Alert and oriented to person place and time, appropriate affect, intact judgment and insight. - Allied health notes Allied health notes reviewed: nursing - Labs CBC & Chem 7: 05/10/22 05:10 05/10/22 05:10 Labs: Abnormal Lab Results - Last 24 Hours (Table) 05/07/22 05/09/22 05/09/22 Range/Units 18:25 11:16 17:00 WBC (3.8-10.6) k/uL RBC (4.30-5.90) m/uL Hgb (13.0-17.5) gm/dL Hct (39.0-53.0) % RDW (11.5-15.5) % BUN (9-20) mg/dL Creatinine (0.66-1.25) mg/dL Glucose (74-99) mg/dL POC Glucose (mg/dL) 175 H 173 H (70-110) mg/dL Calcium (8.4-10.2) mg/dL Crossmatch See Detail 05/09/22 05/10/22 05/10/22 Range/Units 20:14 05:10 05:10 WBC 12.6 H (3.8-10.6) k/uL RBC 2.48 L (4.30-5.90) m/uL Hgb 7.6 L (13.0-17.5) gm/dL Hct 23.9 L (39.0-53.0) % RDW 18.8 H (11.5-15.5) % BUN 40 H (9-20) mg/dL Creatinine 1.33 H (0.66-1.25) mg/dL Glucose 70 L (74-99) mg/dL POC Glucose (mg/dL) 230 H (70-110) mg/dL Calcium 8.1 L (8.4-10.2) mg/dL Crossmatch Microbiology - Last 24 Hours (Table) 05/06/22 14:42 Gram Stain - Final Sputum Sputum Culture - Final Margo albicans Aspergillus fumigatus 05/03/22 05:54 Blood Culture - Final Blood No Growth after 144 hours - Imaging and Cardiology Chest x-ray: report reviewed, image reviewed Assessment and Plan Assessment: 1. Severe mitral valve regurgitation, status post mitral valve repair 2. Coronary artery disease, previous PCI, previous non-STEMI, status post CABG 3 3. History of paroxysmal atrial fibrillation, previous cardioversion, on [facility] outpatient for anticoagulation, status post modified Castanon maze and ligation of left atrial appendage, currently in normal sinus rhythm 4. Patent foramen ovale, status post closure 5. Tricuspid regurgitation 6. Chronic diastolic congestive heart failure, ischemic cardiomyopathy with EF 40-45% 7. History of hypertension 8. History hyperlipidemia, treated, cholesterol 150, LDL 72 9. Right internal carotid stenosis 50-79% 10. Anemia with history of GI bleed in November 2021 S/P transfusion PRBCs 11. Acute on chronic renal failure, baseline creatinine 1.2-1.6 12. Diabetes mellitus type 2, preoperative hemoglobin A1c 5.6% 13. Osteoarthritis 14. Severe COPD, preoperative FEV1 41% of predicted 15. Chronic ongoing nicotine dependence 16. Remote history of pneumonia 17. Chronic low back pain 18. Hearing disorder 19. Nasal swab positive for MSSA preoperative 20. Postoperative acute blood loss anemia, expected 21. Elevated transaminases, continue to trend downward 22. Protamine reaction intraoperative 23. Medical debility, generalized weakness 24. Stage II-III decubitus to his buttocks, status post surgical debridement 25. Small left-sided pleural effusion, status post left-sided thoracentesis on 04/30/2022 26. Urinary retention possibly secondary to constipation Plan: 1. Continue full dose aspirin, and beta siomara. We will increase his metoprolol tartrate as tolerated. 2. Imdur has been discontinued due to some hypotensive episodes. 3. Continue Amiodarone 200 mg by mouth daily for atrial fibrillation prophylaxis. 4. Encourage incentive spirometry 10 times every hour while awake. Bronchodilators per pulmonology/critical care management. 5. Increase activity, ambulate as tolerated. PT/OT/cardiac rehab following. Needs much encouragement with ambulation. 6. Will monitor daily labs and chest x-rays. Electronic replacement per protocol. Avoid hepatotoxic and nephrotoxic medications. He received 1 unit of packed red blood cells yesterday for a hemoglobin of 6.6, today's hemoglobin is 7.6. 7. GI/DVT prophylaxis. 8. Insulin management per primary care service. Patient is a diabetic with a preoperative hemoglobin A1c of 5.6% on multiple oral medications, needs tight blood sugar control. 9. Pain control with current medication regimen. 10. Continue Flomax and continue to record strict accurate I's and O's. 11. Daily weights. 12. Shower daily. 13. Importance of risk modification including smoking cessation counseling and education provided to patient and family. 14. Continue to monitor blood culture and sputum culture results, culture showed no growth after 24 hours. Continue cefepime 2 g every 12 hours for emp iric and about coverage. 15. Wound care [facility] ordered for treatment for the patient's decubitus, managed by Dr. Chen from infectious disease. 16. Discharged to inpatient rehab within the next 24-48 hours. 17. Eliquis has been discontinued due to the patient's drop in hemoglobin. 18. Bumex 2 mg IV daily. 19. More recommendations to follow based on patient's clinical course. Time with Patient: Greater than 30
--- NOTE | 2022-05-10 12:56 | P.PN ---
Subjective Progress Note Date: 05/10/22 CHIEF COMPLAINT: GI bleed, sacral decubitus ulcer HISTORY OF PRESENT ILLNESS: Patient is currently in the ICU. Patient is status post EGD revealing duodenitis, hiatal hernia, distal esophagitis. There was blood in the third and fourth portion of the duodenum. Patient also had incision and drainage and debridement of sacral decubitus ulcer with abscess on 07/09/21. Patient continues to have black stools. He had 2 black stools yesterday and 1 this morning. He denies any abdominal pain. Denies any nausea or vomiting. Hemoglobin did go up from 6.6-7.6. He did receive 1 unit of blood yesterday. Patient does complain of soreness on his sacrum. Afebrile. WBC 14.7 down to 12.6 Hgb 6.6 up to 7.6 platelet [birth year]1970 through 9 T 4.2 creatinines 1.33 PHYSICAL EXAM: VITAL SIGNS: Reviewed. GENERAL: Well-developed in no acute distress. HEENT: No sclera icterus. Extraocular movements grossly intact. Moist buccal mucosa. Head is atraumatic, normocephalic. ABDOMEN: Soft. Nondistended. Nontender. NEUROLOGIC: Alert and oriented. Cranial nerves II through XII grossly intact. Skin: Sacral decubitus ulcer has been debrided. healthy pink tissue noted. mild pink around wound ASSESSMENT: 1. Sacral decubitus ulcer and abscess status post incision, drainage and debridement 2. Acute GI bleed possibly due to AVMs. Status post EGD revealing duodenitis, hiatal hernia and distal esophagitis PLAN: -Continue local wound care to sacral ulcer -Continue to hold Eliquis -Continue to monitor hemoglobin and transfuse as needed -Continue monitoring for any signs or symptoms of bleeding -Continue to monitor. Patient may require transfer to tertiary care center if his hemoglobin drops. Concerns for possible duodenal AVM bleeding. Patient would need to be seen by GI specialist. Physician Assignment Desk Assistant note has been reviewed by physician. Signing provider agrees with the documented findings, assessment, and plan of care. I have personally seen and examined the patient, reviewed the DIE TURNER /PAs history, exam and MDM and agree with the assessment and plan as written. Based on total visit time, I have performed more than 50% of the visit. As above: Patient says he feels better today. He did have a black colored stool today however hemoglobin more stable. Remains off of anticoagulation. Tolerating diet. Energy is improved. Less pain at the sacral wound site. Wound is improving in appearance. Continue local wound care. Monitor hemoglobin. Objective - Vital Signs Vital signs: Vital Signs Temp 98.3 F 05/10/22 08:00 Pulse 64 05/10/22 12:00 Resp 18 05/10/22 12:00 BP 114/64 05/10/22 12:00 Pulse Ox 96 05/10/22 12:00 FiO2 100 04/22/22 16:00 Intake & Output 05/09/22 05/10/22 05/10/22 18:59 06:59 18:59 Intake Total 2270 280 100 Output Total 250 975 750 Balance 2019 Weight 92.5 kg Intake: IV 200 280 100 0.9 130 DAPTOmycin 360 mg In 50 Sodium Chloride 0.9% 50 ml @ 100 mls/hr IVPB Q24H [facility] Rx#:[id number] Piperacillin-Tazobactam 3 200 100 100 .375 gm In Sodium Chloride 0.9% 100 ml @ 25 mls/hr IVPB Q8HR [facility] Rx# :[id number] Oral 1400 Blood Product 670 Rc As-1 Unit 310 [id number] Output: Urine 250 975 750 Other: Voiding Method Urinal Urinal Urinal # Voids 1 1 1 # Bowel Movements 1 1 1 ABP, PAP, CO, CI - Last Documented Arterial Blood Pressure 137/47 Pulmonary Artery Pressure 67/18 Cardiac Output 5.8 Cardiac Index 2.8 - Labs CBC & Chem 7: 05/10/22 05:10 05/10/22 05:10 Labs: Abnormal Lab Results - Last 24 Hours (Table) 05/09/22 05/09/22 05/10/22 Range/Units 17:00 20:14 05:10 WBC 12.6 H (3.8-10.6) k/uL RBC 2.48 L (4.30-5.90) m/uL Hgb 7.6 L (13.0-17.5) gm/dL Hct 23.9 L (39.0-53.0) % RDW 18.8 H (11.5-15.5) % BUN (9-20) mg/dL Creatinine (0.66-1.25) mg/dL Glucose (74-99) mg/dL POC Glucose (mg/dL) 173 H 230 H (70-110) mg/dL Calcium (8.4-10.2) mg/dL 05/10/22 05/10/22 Range/Units 05:10 11:11 WBC (3.8-10.6) k/uL RBC (4.30-5.90) m/uL Hgb (13.0-17.5) gm/dL Hct (39.0-53.0) % RDW (11.5-15.5) % BUN 40 H (9-20) mg/dL Creatinine 1.33 H (0.66-1.25) mg/dL Glucose 70 L (74-99) mg/dL POC Glucose (mg/dL) 229 H (70-110) mg/dL Calcium 8.1 L (8.4-10.2) mg/dL Microbiology - Last 24 Hours (Table) 05/06/22 14:42 Gram Stain - Final Sputum Sputum Culture - Final Margo albicans Aspergillus fumigatus 05/03/22 05:54 Blood Culture - Final Blood No Growth after 144 hours
--- NOTE | 2022-05-10 15:12 | P.PN ---
Progress Note - Text Progress Note Date: 05/10/22 Patient is a pleasant 72-year-old male came in the for elective mitral valve repair, CABG x 3 vessel, maze procedure, PFO closure. Patient is extubated sitting in the chair patient still has a Madison-Varghese catheter, CVP of around 12, cardiac index 3.1 patient creatinine went up to 1.70 resulting elevated potassium of 5.5 patient is off pressor support, off nitro drip patient still has 2 mediastinal and one left-sided chest tube. 04/21/2022 Patient is evaluated in ICU today, sitting up in chair. He is postoperative day #2 for elective mitral valve repair, hematocrit bypass grafting maze procedure and PFO closure. He is on BiPAP with fio2 of 40% Continues with mediastinal/left pleural chest tubes. Continue with indwelling catheter. Received dose of IV albumin yesterday afternoon. Chest xray today showing ongoing mild pulmonary vascular congestion, increasing patchy bibasilar opacities, atelectasis vs. pulmonary edema. Currently on lasix gtt at 10mls/hr, continues on dopamine gtt at 3.68 mls/hr. Continues on insulin gtt and blood glucose remains in the 140 to 130s. Labs today showing sodium 132, potassium 6.1 improved to 5.4, BUN 41, creatinine 2.53, elevated liver enzymes. Hgb 7.3. 04/22/2022 Patient continues to be monitored closely in intensive care unit, he is postoperative day #3 for elective mitral valve repair, maze procedure, PFO closure. Managed by primary team. He had limited echocardiogram completed showing EF 45 to 50%, mild to moderate MR, moderate pulmonary hypertension with moderate TR. Chest xray today shows slight improvement in pulmonary vascular congestion. Maintained on lasix gtt at 10mls/hr, dopamine gtt, Continues with 2 mediastinal chest tubes. Continues with indwelling catheter. Continues with right IJ swan/cordis, right radial arterial line. He has been weaned off BiPAP currently on high flow cannula at 15L. He has been tolerating some diet. Continues on insulin gtt which will continue until his diet stabilizes. Current glucose in the 140s. Creatinine today 3.14. April 23: [facility]. In a recliner. Tired. Little oral intake. Nasal cannula. Drips include IV dopamine and Lasix. Some shortness of breath. Mooney catheter. 04/24/2022: ICU. Up. 4 L nasal cannula. Did eat better. Edema present. On the Lasix drip 5 mg an hour. Some improvement in creatinine. 04/25/2022: ICU. Up in a recliner. Eating better. at the bedside. Edema present. Off Lasix drip. Feeling better. Creatinine coming down. LFTs improving. Home dose of Victoza was started 04/26/2022: ICU. Up in a recliner. 4 L nasal cannula. Eating about 50%. Accu-Cheks noted. 04/27/2022: ICU: Patient went into atrial fibrillation overnight. Put on oral amiodarone and Lopressor per CTS.. Some worsening of shortness of breath. Placed on IV Lasix. Eating some. Up in a recliner. 04/28/2022: ICU. Patient received Lopressor today for the A. fib. Patient went down into sinus rhythm. Blood pressure also dropped her was 70 systolic. Oxygen increased to 4 L. Short of breath. Patient did walk 10-12 steps up to the door. Eating fair. Lower extremity edema edema present. Up in a chair. Tired. 04/29/2022: ICU. Short of breath. 3 L nasal cannula. Eating fair. Edema pre sent. Getting Bumex. Getting IV albumin and IV calcium. Using incentive spirometry. Up in a chair. Discussed with at the bedside. Increasing white count, infiltrated urine chest x-ray suggestive of pneumonia. Started on IV cefepime 04/30/2022: ICU. Remains short of breath. 3 L nasal cannula. Started on IV cefepime yesterday.. Oral intake fair. Edema present. Remains on Bumex. Fo sher catheter. Discussed with patient and at the bedside. Discussed with Dr. Cortez from cardiothoracic surgery. 05/01/2022: ICU. Zaroxolyn was added. Good diuresis. Breathing better. On IV cefepime. Left paracentesis is done. 850 mL removed. Oral intake fair. Breathing a bit better. Telemetry shows sinus rhythm. 2 L nasal cannula. at the bedside. Will DC Actos. Even though smaller dose. Given CHF renal failure. Increase Lantus to 12 units. 05/02/2022: ICU. Over 3 is a negative fluid balance. Last 24 hours. Some improvement in breathing. Oral intake fair. Remains in atrial fibrillation controlled. 2 L nasal cannula. Add Diamox. 4 metabolic alkalosis 05/03/2022: ICU. This morning patient became short of breath. Dr. Chen from [place] consulted for sacral decub. Remains on IV cefepime. Oral intake fair. Had a BM. On IV Bumex. I discussed with Dr. Aguilar from pulmonary. Patient is known to him. Advanced COPD. His right lung changes are chronic. Has had previous CAT scans. He may have had a located effusion. 05/04/2022: ICU. Breathing a bit better. Hemoglobin dropped to 6.1. Awaiting transfusion. Tolerating diet. On IV cefepime. Patient started on IV eraxis by Dr. Prescott from [place]. 05 May 2022: ICU. Patient received a unit of blood yesterday evening. Getting another unit of blood today. Breathing better. Remains on IV Bumex. IV cefepime discontinued. Remains on IV Eraxis. Oral intake fair. Up in a chair. at the bedside. Increase Levemir to 20 units at night. 05/06/2022: ICU. Patient received a 3rd unit blood this morning. Breathing better. Had some blood in his urine. On 2 L is cannula. Sitting up in a chair, eating better. Some cough with brownish sputum. 05/07/2022: ICU. Up in a chair. Eating better. On 2 L nasal cannula. On IV daptomycin. IV Zosyn. Has had dark stools but is on iron. We'll hold off oral iron to see if stool color lightens. Add NovoLog 5 units scheduled with meals. Hemoglobin dropped again to 6.2. Received 1 unit of blood today. 05/08/2022: ICU. Seen by me this morning. Hemoglobin further dropped again. 5.9. Data patient underwent EGD by Dr. Fiore. Fresh blood seen in the third and fourth portion of duodenum of blood clots noted. No obvious source noted. Patient is on PPI. Also sacral decub ulcer abscess also drained. Patient received a unit of blood this morning. Discussed with Neema from cardiothoracic team. Patient does not like hospital food. has been free eating food from outside. Including [employer] fish [employer] etc. Difficult to control Accu- Cheks. Concerned the patient may become hypoglycemic if a more aggressive. farxiga is being added. 05/09/2022: ICU. No further drop in hemoglobin after blood transfusion yesterday. Patient is off eliquis. Had a dark stool today. Oral intake fair. On 2 L nasal cannula. On IV daptomycin IV Zosyn. 05/10/2022: ICU. Patient had no further drop in hemoglobin. Had a black stool. Off oxygen. Eating well. Accu-Cheks will stabilize. On IV daptomycin IV Zosyn. Sputum growing Margo albicans and Aspergillus fumigators. We'll decrease Levemir to 16 units. Decreased scheduled NovoLog to 3 units with meals. Active Medications Acetaminophen (Acetaminophen Tab 325 Mg Tab) 650 mg PO Q6HR PRN PRN Reason: Fever and/ or Mild Pain Last Admin: 05/10/22 09:27 Dose: 650 mg Hydrocodone Bitart/Acetaminophen (Hydrocodone/Apap 5-325mg 1 Each Tab) 1 each PO Q4HR PRN PRN Reason: Moderate Pain (Scale 4 to 6) Albuterol/Ipratropium (Ipratropium-Albuterol 3 Ml Neb) 3 ml INHALATION RT-Q2H PRN PRN Reason: Shortness Of Breath Or Wheezing Last Admin: 04/29/22 23:30 Dose: 3 ml Albuterol/Ipratropium (Ipratropium-Albuterol 3 Ml Neb) 3 ml INHALATION RT-QID COUNTS INCLUDE 234 BEDS AT THE [facility] Last Admin: 05/10/22 11:39 Dose: 3 ml Amiodarone HCl (Amiodarone 200 Mg Tab) 200 mg PO DAILY COUNTS INCLUDE 234 BEDS AT THE [facility] Stop: 05/11/22 10:00 Last Admin: 05/10/22 09:22 Dose: 200 mg Ascorbic Acid (Ascorbic Acid 500 Mg Tab) 500 mg PO DAILY COUNTS INCLUDE 234 BEDS AT THE [facility] Last Admin: 05/10/22 09:22 Dose: 500 mg Aspirin (Aspirin 325 Mg Tab) 325 mg PO DAILY COUNTS INCLUDE 234 BEDS AT THE [facility] Last Admin: 05/10/22 09:22 Dose: 325 mg Benzocaine/Menthol (Benzocaine/Menthol Lozeng 1 Each Lozenge) 1 each MUCOUS MEM Q2HR PRN PRN Reason: Sore Throat Last Admin: 05/10/22 09:27 Dose: 1 each Bisacodyl (Bisacodyl 10 Mg Supp) 10 mg RECTAL DAILY PRN PRN Reason: Constipation Last Admin: 05/09/22 09:10 Dose: 10 mg Budesonide/Formoterol Fumarate (Symbicort 160-4.5 Mcg Inhaler) 2 puff INHALATION RT-BID COUNTS INCLUDE 234 BEDS AT THE [facility] Last Admin: 05/10/22 08:30 Dose: 2 puff Bumetanide (Bumetanide 0.25 Mg/Ml 10 Ml Vial) 2 mg IV DAILY COUNTS INCLUDE 234 BEDS AT THE [facility] Last Admin: 05/10/22 10:00 Dose: 2 mg Dapagliflozin (Dapagliflozin Propanediol 5 Mg Tablet) 5 mg PO DAILY COUNTS INCLUDE 234 BEDS AT THE [facility] Last Admin: 05/10/22 09:23 Dose: 5 mg Dextrose/Water (Dextrose 50% Syringe 50 Ml) 25 ml IVP PER PROTOCOL PRN; Protocol PRN Reason: Hypoglycemia Dextrose/Water (Dextrose 50% Syringe 50 Ml) 50 ml IVP PER PROTOCOL PRN; Protocol PRN Reason: Hypoglycemia Guaifenesin/Dextromethorphan (Guaifenesin-Dm 600/30mg 1 Each Tab.Er.12h) 1 each PO Q12HR COUNTS INCLUDE 234 BEDS AT THE [facility] Last Admin: 05/10/22 09:23 Dose: 1 each Daptomycin 360 mg/ Sodium (Chloride) 50 mls @ 100 mls/hr IVPB Q24H [facility]; Protocol Last Admin: 05/10/22 00:14 Dose: 100 mls/hr Piperacillin Sod/Tazobactam (Sod 3.375 gm/ Sodium Chloride) 100 mls @ 25 mls/hr IVPB Q8HR [facility]; Protocol Last Admin: 05/10/22 09:22 Dose: 25 mls/hr Insulin Aspart (Insulin Aspart (Novolog) 100 Unit/Ml Vial) 0 unit SQ ACHS COUNTS INCLUDE 234 BEDS AT THE [facility]; Protocol Last Admin: 05/10/22 11:15 Dose: 4 unit Insulin Aspart (Insulin Aspart (Novolog) 100 Unit/Ml Vial) 5 unit SQ AC-TID COUNTS INCLUDE 234 BEDS AT THE [facility] Last Admin: 05/10/22 11:15 Dose: 5 unit Insulin Detemir (Insulin Detemir (Levemir) 100 Unit/Ml Syr) 24 unit SQ HS COUNTS INCLUDE 234 BEDS AT THE [facility] Last Admin: 05/09/22 20:31 Dose: 24 unit Lidocaine (Lidocaine 5% Patch) 2 patch TOPICAL DAILY COUNTS INCLUDE 234 BEDS AT THE [facility]; Protocol Last Admin: 05/10/22 09:23 Dose: 2 patch Magnesium Hydroxide (Magnesium Hydroxide 2,400 Mg/10 Ml Cup) 2,400 mg PO BID PRN PRN Reason: Constipation Last Admin: 04/22/22 07:08 Dose: 2,400 mg Metoprolol Tartrate (Metoprolol Tartrate 25 Mg Tab) 25 mg PO BID COUNTS INCLUDE 234 BEDS AT THE [facility] Last Admin: 05/10/22 09:23 Dose: 25 mg Miscellaneous Information (Potassium Replacement Protocol 1 Each Misc) 1 each MISCELLANE DAILY PRN; Protocol PRN Reason: Per Protocol Miscellaneous Information (Magnesium Replacement Protocol 1 Each Misc) 1 each MISCELLANE DAILY PRN; Protocol PRN Reason: Per Protocol Non-Formulary Medication (Non Formulary Drug) 1 each SQ DAILY COUNTS INCLUDE 234 BEDS AT THE [facility] Last Admin: 05/10/22 09:27 Dose: 1 each Ondansetron HCl (Ondansetron 4 Mg/2 Ml Vial) 4 mg IVP Q6HR PRN PRN Reason: Nausea And Vomiting Last Admin: 04/27/22 09:22 Dose: 4 mg Pantoprazole Sodium (Pantoprazole 40 Mg/10 Ml Vial) 40 mg IVP BID COUNTS INCLUDE 234 BEDS AT THE [facility] Last Admin: 05/10/22 09:24 Dose: 40 mg Potassium Chloride (Potassium Chloride Er 20 Meq Tab.Er) 20 meq PO DAILY COUNTS INCLUDE 234 BEDS AT THE [facility] Last Admin: 05/10/22 09:24 Dose: 20 meq Senna/Docusate Sodium (Sennosides-Docusate Sodium 1 Each Tab) 2 each PO HS COUNTS INCLUDE 234 BEDS AT THE [facility] Last Admin: 05/09/22 20:32 Dose: 2 each Sodium Chloride (Sodium Chloride 0.9% Flush 10 Ml Syringe) 10 ml IV BID COUNTS INCLUDE 234 BEDS AT THE [facility] Last Admin: 05/10/22 09:24 Dose: 10 ml Tamsulosin HCl (Tamsulosin 0.4 Mg Cap.Er.24h) 0.4 mg PO -BRKFST COUNTS INCLUDE 234 BEDS AT THE [facility] Last Admin: 05/10/22 09:22 Dose: 0.4 mg On examination: VITAL SIGNS: 98, 66, 20, 114/64, 96% on room air GENERAL APPEARANCE: Up in chair, comfortable HEENT: Normal external appearance of nose and ear. Oral cavity normal EYES: Pupils equal. Conjunctiva normal. NECK: JVD not raised. Mass not palpable. RESPIRATORY: Respiratory effort increased. Lungs diminished breath sounds. CARDIOVASCULAR: First and second sounds normal. Edema present ABDOMEN: Soft. Liver and spleen not palpable. No tenderness. No mass palpable. Sacral decub. Using a doughnut PSYCHIATRY: AO 3, mood and affect normal INVESTIGATIONS, reviewed in the clinical context: 05/10/2022: WBC 12.6-year-old globin 10.6 potassium 4.2 BUN 40 creatinine 1.33 05/09/2022: WBC 14.70 globin 6.6 platelets 241 potassium 4.1. 51 and creatinine 1.27 05/08/2022: WBC 14.9 hemoglobin 5.9 platelets 27 BUN 68 creatinine 1.48 05/07/2022: WBC 23.1 hemoglobin 6.2 platelets 334 potassium 4.2 BUN 77 creatinine 1.48 AST 69 ALT 70 05/06/2022: WBC 19.7 hemoglobin 6.2 platelets 322 potassium 3.8. 83 creatinine 1.50 05/05/2022: WBC 18.1 hemoglobin 6.7 potassium 4. 85 creatinine 1.46 05/04/2022: WBC 16 hemoglobin 6.1 platelets 362 potassium 3.7 BUN 75 creatinine 1.75 Limited 2-D echocardiogram [May 01]: EF 45%. [id number] MR, moderate aortic stenosis 05/01/2022: WBC 15.3 hemoglobin 7.2 platelets 305 potassium 4. [address] chest [April 29]: Moderate partial obliterate right pleural effusion, left pleural effusion, cardiomegaly. 04/24/2022: WBC 9.2 hemoglobin 7.1 platelets 122 potassium 5.1 BUN 77 creatinine 2.97 AST 1270 ALT 1038 WBC 8.2 hemoglobin 7.5 platelets 111 sodium 135 progression 6 BUN 67 creatinine 3.43 AST 3595 ALT 1512 Limited 2-D echocardiogram: EF 45-50%. Inferior wall hypokinesis. Moderate MR. Moderate pulmonary hypertension with moderate TR. Assessment and plan -Acute on chronic congestive heart exacerbation from systolic/diastolic dysfunction EF 45-50%:, precipitated by A. fib: Better Placed on Bumex 2 mg IV per cardiothoracic team. -pneumonia, short of breath, infiltrate on chest x-ray, increasing white count and procalcitonin: Better IV cefepime-completed -Acute hypoxic respiratory failure from pulmonary edema/pneumonia: Better 93% on room air -Diabetes Mellitus type 2 , uncontrolled with hyperglycemia, Victoza , Actos-discontinue. Levemir 24 units daily at bedtime. 5 units NovoLog with meals. farxiga 5 mg -Paroxysmal atrial fibrillation status post modified Castanon-Maze procedure,: With rapid ventricular rate: Now - sinus rhythm amiodarone ,Lopressor. Eliquis held because of GI bleed -Acute GI bleed from the third and fourth portion of duodenum. EGD encountered fresh blood with blood clots. No obvious source noted. Patient is on aspirin. Eliquis held -acute renal failure on chronic kidney disease stage II with renal failure is probably prerenal azotemia, cardiorenal syndrome.: Creatinine peaked at 3.43. Creatinine 1.46 -hyperkalemia secondary to acute renal failure: Corrected Received Lokelma. Renal diet -Acute hepatitis, likely ischemic: Better Follow closely. GI services not available in the hospital. Hold any hepatic offensive medications. Follow LFTs patient as patient started back on amiodarone -Acute COPD exacerbation, in a smoker DuoNeb. Symbicort -Hyperlipidemia Lipitor -Sacral decubitus ulcer: With abscess. Large abscess was encountered. 12 x 10 x 4 cm deep. Cleaned out by Dr. Fiore 05/08/2022. Follow with ID. On IV daptomycin, IV Zosyn -Metabolic alkalosis from diuresis Diamox - coronary artery disease with previous PCI Aspirin, Imdur, Lopressor -Acute postprocedure blood loss anemia as expected from surgery, also hospital- acquired anemia from blood draws Received PRBC -Chronic nicotine dependence - post mitral valve failure, status post CABG, status post PFO closure: Currently [id number] MR -Moderate aortic stenosis -Moderate secondary pulmonary hypertension Care was discussed with down from the cardiothoracic team. Patient is off oxygen. Has been put on Bumex 2 mg IV by CTS. Cutback Levemir to 16 units at night. Cutback scheduled NovoLog 3 units with meals. Using a doughnut. Follow with ID of the consultants.
[2022-05-10 16:33] LABS: Glucose,Whole Blood 161 mg/dL (70-110)
[2022-05-10 20:26] LABS: Glucose,Whole Blood 177 mg/dL (70-110)
[2022-05-10] MEDS ORDERED: INSULIN DETEMIR (LEVEMIR) 100 UNIT/ML SYR SQ SCH (21:00)
[2022-05-10] MEDS: SENNOSIDES-DOCUSATE SODIUM 1 EACH TAB PO SCH (21:07)
[2022-05-10] MEDS: HYDROcodone/APAP 5-325MG 1 EACH TAB PO PRN (21:16)
--- NOTE | 2022-05-10 23:31 | P.PN ---
Subjective Progress Note Date: 05/09/22 Principal diagnosis: Leukocytosis Patient is a 72-year-old male electively admitted to the hospital 04/19/2022 for mitral valve repair and coronary bypass grafting 3 and this patient has been afebrile however noticed to have worsening leukocytosis. Patient has been evaluated by general surgery and is scheduled for EGD and debridement of the sacral wound Completed on 05/08/2022 unfortunately abscess was drained but no cultures were obtained. On today's evaluation that is 05/09/2022 the patient remains to be afebrile, the patient is breathing comfortably on 2 L nasal cannula. Denies having any chest pain or shortness of the cough pain to the sacral wound area is currently controlled Objective - Vital Signs Vital signs: Vital Signs Temp 97.5 F L 05/09/22 12:25 Pulse 61 05/09/22 14:18 Resp 19 05/09/22 13:00 BP 109/45 05/09/22 14:18 Pulse Ox 100 05/09/22 13:00 FiO2 100 04/22/22 16:00 Intake & Output 05/08/22 05/09/22 05/09/22 18:59 06:59 18:59 Intake Total 5656 788 8483 Output Total 1010 1200 250 Balance 710 -575 1670 Weight 91.1 kg Intake: IV 500 150 100 DAPTOmycin 360 mg In 50 Sodium Chloride 0.9% 50 ml @ 100 mls/hr IVPB Q24H [facility] Rx#:[id number] Piperacillin-Tazobactam 3 200 100 100 .375 gm In Sodium Chloride 0.9% 100 ml @ 25 mls/hr IVPB Q8HR [facility] Rx# :[id number] Oral 278 662 0034 Blood Product 670 670 Rc As-1 Unit 310 [id number] As-1 Unit 310 [id number] Output: Urine 1000 1200 250 Estimated Blood Loss 10 Other: Voiding Method Urinal Urinal Urinal # Voids 1 # Bowel Movements 1 ABP, PAP, CO, CI - Last Documented Arterial Blood Pressure 137/47 Pulmonary Artery Pressure 67/18 Cardiac Output 5.8 Cardiac Index 2.8 - Exam GENERAL DESCRIPTION: An elderly male up in the chair in no distress RESPIRATORY SYSTEM: Unlabored breathing , decreased breath sounds at bases HEART: S1 S2 regular rate and rhythm , ABDOMEN: Soft , no tenderness Stages the sacral pressure ulcer with some slough tissue at base and surrounding redness some foul-smelling EXTREMITIES: 2+ edema feet - Labs CBC & Chem 7: 05/10/22 05:10 05/10/22 05:10 Labs: Abnormal Lab Results - Last 24 Hours (Table) 05/07/22 05/08/22 05/08/22 Range/Units 18:25 15:41 17:38 WBC 17.9 H (3.8-10.6) k/uL RBC 2.26 L (4.30-5.90) m/uL Hgb 6.8 L* (13.0-17.5) gm/dL Hct 22.0 L (39.0-53.0) % RDW 18.2 H (11.5-15.5) % Neutrophils # (1.3-7.7) k/uL Lymphocytes # (1.0-4.8) k/uL BUN (9-20) mg/dL Creatinine (0.66-1.25) mg/dL Glucose (74-99) mg/dL POC Glucose (mg/dL) 220 H (70-110) mg/dL Calcium (8.4-10.2) mg/dL Magnesium (1.6-2.3) mg/dL AST (17-59) U/L ALT (4-49) U/L Total Protein (6.3-8.2) g/dL Albumin (3.5-5.0) g/dL Crossmatch See Detail Blood Bank Comment Sent to [facility] A Reference Lab Result See BBK REF Reports A 05/08/22 05/09/22 05/09/22 Range/Units 20:18 04:07 04:07 WBC 14.7 H (3.8-10.6) k/uL RBC 2.14 L (4.30-5.90) m/uL Hgb 6.6 L* (13.0-17.5) gm/dL Hct 20.7 L (39.0-53.0) % RDW 18.5 H (11.5-15.5) % Neutrophils # 12.5 H (1.3-7.7) k/uL Lymphocytes # 0.6 L (1.0-4.8) k/uL BUN 51 H (9-20) mg/dL Creatinine 1.27 H (0.66-1.25) mg/dL Glucose 112 H (74-99) mg/dL POC Glucose (mg/dL) 144 H (70-110) mg/dL Calcium 8.1 L (8.4-10.2) mg/dL Magnesium 2.5 H (1.6-2.3) mg/dL AST 67 H (17-59) U/L ALT 69 H (4-49) U/L Total Protein 4.6 L (6.3-8.2) g/dL Albumin 2.4 L (3.5-5.0) g/dL Crossmatch Blood Bank Comment Reference Lab Result 05/09/22 05/09/22 Range/Units 06:30 11:16 WBC (3.8-10.6) k/uL RBC (4.30-5.90) m/uL Hgb (13.0-17.5) gm/dL Hct (39.0-53.0) % RDW (11.5-15.5) % Neutrophils # (1.3-7.7) k/uL Lymphocytes # (1.0-4.8) k/uL BUN (9-20) mg/dL Creatinine (0.66-1.25) mg/dL Glucose (74-99) mg/dL POC Glucose (mg/dL) 128 H 175 H (70-110) mg/dL Calcium (8.4-10.2) mg/dL Magnesium (1.6-2.3) mg/dL AST (17-59) U/L ALT (4-49) U/L Total Protein (6.3-8.2) g/dL Albumin (3.5-5.0) g/dL Crossmatch Blood Bank Comment Reference Lab Result Microbiology - Last 24 Hours (Table) 05/06/22 14:42 Gram Stain - Final Sputum Sputum Culture - Final Margo albicans Aspergillus fumigatus 05/03/22 05:54 Blood Culture - Final Blood No Growth after 144 hours Assessment and Plan (1) Leukocytosis Current Visit: Yes Status: Acute Code(s): D72.829 - ELEVATED WHITE BLOOD CELL COUNT, UNSPECIFIED SNOMED Code(s): 708537622 Plan: 1patient with a leukocytosis in this patient who is postop day #13 mitral valve repair and CABG x3 patient did not have any fever during this hospital stay and the white count has been slowly creeping up over the last 5 days source possible cath versus UTI versus his sacral pressure ulcer, patient started as well as vein grafting sites looks clean without evidence of any cellulitis he did have a thoracocentesis with fluid does not look infected. 2 blood cultures are negative. 3patient likely source of elevated white count is infected sacral pressure ulcer, , Patient is status post surgical debridement of the sacral pressure ul cer with evidence of abscess unfortunately no cultures were done as we do not have any culture data to narrow his antibiotics we will continue the patient on Zosyn and daptomycin and monitor clinical course closely Time with Patient: Less than 30
--- NOTE | 2022-05-10 23:33 | P.PN ---
Subjective Progress Note Date: 05/10/22 Principal diagnosis: Leukocytosis Patient is a 72-year-old male electively admitted to the hospital 04/19/2022 for mitral valve repair and coronary bypass grafting 3 and this patient has been afebrile however noticed to have worsening leukocytosis. Patient has been evaluated by general surgery and is scheduled for EGD and debridement of the sacral wound Completed on 05/08/2022 unfortunately abscess was drained but no cultures were obtained. On today's evaluation that is 05/10/2022 patient denies any fever or chills, the patient is breathing comfortably currently on 2 L nasal cannula denies any chest pain shortness with occasional cough no abdominal pain or any worsening pain to the sacral wound area Objective - Vital Signs Vital signs: Vital Signs Temp 98.0 F 05/10/22 13:00 Pulse 66 05/10/22 13:00 Resp 22 05/10/22 14:01 BP 114/64 05/10/22 14:01 Pulse Ox 96 05/10/22 14:01 FiO2 100 04/22/22 16:00 Intake & Output 05/09/22 05/10/22 05/10/22 18:59 06:59 18:59 Intake Total 2270 280 100 Output Total 250 975 900 Balance 2019 Weight 92.5 kg Intake: IV 200 280 100 0.9 130 DAPTOmycin 360 mg In 50 Sodium Chloride 0.9% 50 ml @ 100 mls/hr IVPB Q24H [facility] Rx#:[id number] Piperacillin-Tazobactam 3 200 100 100 .375 gm In Sodium Chloride 0.9% 100 ml @ 25 mls/hr IVPB Q8HR [facility] Rx# :[id number] Oral 1400 Blood Product 670 Rc As-1 Unit 310 [id number] Output: Urine 250 975 900 Other: Voiding Method Urinal Urinal Urinal # Voids 1 1 1 # Bowel Movements 1 1 1 ABP, PAP, CO, CI - Last Documented Arterial Blood Pressure 137/47 Pulmonary Artery Pressure 67/18 Cardiac Output 5.8 Cardiac Index 2.8 - Labs CBC & Chem 7: 05/10/22 05:10 05/10/22 05:10 Labs: Abnormal Lab Results - Last 24 Hours (Table) 05/09/22 05/09/22 05/10/22 Range/Units 17:00 20:14 05:10 WBC 12.6 H (3.8-10.6) k/uL RBC 2.48 L (4.30-5.90) m/uL Hgb 7.6 L (13.0-17.5) gm/dL Hct 23.9 L (39.0-53.0) % RDW 18.8 H (11.5-15.5) % BUN (9-20) mg/dL Creatinine (0.66-1.25) mg/dL Glucose (74-99) mg/dL POC Glucose (mg/dL) 173 H 230 H (70-110) mg/dL Calcium (8.4-10.2) mg/dL 05/10/22 05/10/22 Range/Units 05:10 11:11 WBC (3.8-10.6) k/uL RBC (4.30-5.90) m/uL Hgb (13.0-17.5) gm/dL Hct (39.0-53.0) % RDW (11.5-15.5) % BUN 40 H (9-20) mg/dL Creatinine 1.33 H (0.66-1.25) mg/dL Glucose 70 L (74-99) mg/dL POC Glucose (mg/dL) 229 H (70-110) mg/dL Calcium 8.1 L (8.4-10.2) mg/dL Microbiology - Last 24 Hours (Table) 05/06/22 14:42 Gram Stain - Final Sputum Sputum Culture - Final Margo albicans Aspergillus fumigatus Assessment and Plan (1) Leukocytosis Current Visit: Yes Status: Acute Code(s): D72.829 - ELEVATED WHITE BLOOD CELL COUNT, UNSPECIFIED SNOMED Code(s): 308232614 Plan: 1patient with a leukocytosis in this patient who is postop day #13 mitral valve repair and CABG x3 patient did not have any fever during this hospital stay and the white count has been slowly creeping up over the last 5 days source possible cath versus UTI versus his sacral pressure ulcer, patient started as well as vein grafting sites looks clean without evidence of any cellulitis he did have a thoracocentesis with fluid does not look infected. 2 blood cultures are negative. 3patient likely source of elevated white count is infected sacral pressure ulcer, , Patient is status post surgical debridement of the sacral pressure ulcer with evidence of abscess unfortunately no cultures were done as we do not have any culture data to narrow his antibiotics we will continue the patient on Zosyn and daptomycin 4the patient will likely need a PICC line for outpatient antibiotic therapy, patient benefit from wound VAC to the sacral wound area Time with Patient: Less than 30
[2022-05-11] MEDS: PIPERACILLIN-TAZOBACTAM 3.375 GM in SODIUM CHLORIDE 0.9% 100 ML IVPB SCH ×3 (00:13→15:36)
[2022-05-11] MEDS: IPRATROPIUM-ALBUTEROL 3 ML NEB INHALATION PRN (05:52)
[2022-05-11 06:46] LABS: Glucose,Whole Blood 116 mg/dL (70-110)
[2022-05-11] MEDS: INSULIN ASPART (NovoLOG) 100 UNIT/ML VIAL SQ SCH ×7 (07:09→20:18)
[2022-05-11 07:35] LABS: Anisocytosis Slight; Basophils # (A) 0.1 k/uL (0-0.2); Basophils % (A) 1 %; Eosinophils # (A) 0.2 k/uL (0-0.7); Eosinophils % (A) 1 %; HCT 24.4 % (39.0-53.0); HGB 7.6 gm/dL (13.0-17.5); Hypochromasia Marked; Lymphocytes # (A) 0.5 k/uL (1.0-4.8); Lymphocytes % (A) 4 %; MCH 30.6 pg (25.0-35.0); MCHC 31.4 g/dL (31.0-37.0); MCV 97.4 fL (80.0-100.0); Macrocytosis Slight; Mean Platelet Volume 8.3; Monocytes % (A) 7 %; Neutrophils # (A) 11.2 k/uL (1.3-7.7); Neutrophils % (A) 85 %; Platelet Count 229 k/uL (150-450); Poikilocytosis Slight; RDW 18.6 % (11.5-15.5); WBC 13.1 k/uL (3.8-10.6)
--- NOTE | 2022-05-11 07:47 | XR ---
EXAMINATION TYPE: XR chest 1V portable DATE OF EXAM: 05/11/2022 4:09 AM COMPARISON: Chest radiographs from 05/10/2022 TECHNIQUE: XR chest 1V portable Frontal view of the chest. CLINICAL INDICATION:Male, 72 years old with history of Postoperative cardiac surgery; FINDINGS: Lungs/Pleura: No pneumothorax. Small bilateral pleural effusions. Bibasilar patchy airspace opacities . Hyperinflation compatible with COPD. Pulmonary vascularity: Unremarkable. Heart/mediastinum: Cardiomediastinal silhouette is enlarged and stable. Cardiac valve ring redemonst rated. Musculoskeletal: No acute osseous pathology. Surgical anchor demonstrate within the left humeral head . Midline sternotomy wires. IMPRESSION: 1. Small bilateral pleural effusions with bibasilar patchy airspace opacities which may represent at electasis and/or infiltrate. 2. Stable cardiomegaly.
[2022-05-11] MEDS: SYMBICORT 160-4.5 MCG INHALER INHALATION SCH ×2 (07:49→19:06)
[2022-05-11] MEDS: IPRATROPIUM-ALBUTEROL 3 ML NEB INHALATION SCH ×4 (07:49→19:06)
[2022-05-11 07:51] LABS: Albumin 2.9 g/dL (3.5-5.0); Potassium 4.7 mmol/L (3.5-5.1); Total Bilirubin 0.8 mg/dL (0.2-1.3); Total Protein 5.3 g/dL (6.3-8.2)
--- NOTE | 2022-05-11 08:17 | P.PN ---
Subjective Progress Note Date: 05/11/22 Principal diagnosis: Status post CABG The patient is a 72-year-old gentleman who is status post CABG as well as mitral valve repair with surgery complicated by recurrent pleural effusion. 05/07/2022 The patient was seen this morning. He is overall stable from a perivascular st andpoint of view. He is not on any vasopressors at this point. He does have history of hematuria but that seems to be cleared this morning. Currently he is on aspirin. He does have also history of paroxysmal atrial fibrillation and he was receiving oral anticoagulation which was stopped. May 082021 The patient was seen and evaluated this morning. He remains stable from a cardiovascular standpoint of view. His hemoglobin this morning is 5.9 and he is in process of having one unit of packed RBC to be transfused. He was seen by the urology service and currently antiplatelet beside aspirin and anticoagulation are on hold. May 092021 The patient was seen and evaluated this morning. The hemoglobin this morning is 6.6 and it was 6.8 yesterday. Overall he's stable with a soft blood pressure. He remains asymptomatic. He remains on antiplatelet with aspirin only. May 102021 The patient was seen and evaluated this morning. Hemoglobin this morning is above 7. He seems otherwise stable from a perivascular standpoint of view. He is of oral anticoagulation because of gastrointestinal bleeding and hematuria. 05/11/2022 The patient was seen this morning. He remains a stable. Hemoglobin remains stable as well. The hemoglobin this morning is 7.9. He is not on any anticoagulation and only he is on aspirin as antiplatelet. Otherwise he remains hemodynamically stable. He has been in normal sinus mechanism. We'll continue the current medical regimen. The patient potentially is going to discharge into inpatient rehab Objective - Vital Signs Vital signs: Vital Signs Temp 99.1 F 05/11/22 04:00 Pulse 77 05/11/22 08:00 Resp 20 05/11/22 07:08 BP 96/41 05/11/22 07:08 Pulse Ox 96 05/11/22 07:08 FiO2 100 04/22/22 16:00 Intake & Output 05/10/22 05/11/22 05/11/22 18:59 06:59 18:59 Intake Total 600 230 Output Total 1300 800 Balance -700 -570 Weight 92.5 kg 93.4 kg Intake: IV 200 230 0.9 80 DAPTOmycin 360 mg In 50 Sodium Chloride 0.9% 50 ml @ 100 mls/hr IVPB Q24H [facility] Rx#:[id number] Piperacillin-Tazobactam 3 200 100 .375 gm In Sodium Chloride 0.9% 100 ml @ 25 mls/hr IVPB Q8HR [facility] Rx# :[id number] Oral 400 Output: Urine 1300 800 Other: Voiding Method Urinal Urinal # Voids 1 # Bowel Movements 1 1 ABP, PAP, CO, CI - Last Documented Arterial Blood Pressure 137/47 Pulmonary Artery Pressure 67/18 Cardiac Output 5.8 Cardiac Index 2.8 - Constitutional General appearance: Present: no acute distress - Respiratory Respiratory: bilateral: diminished - Cardiovascular Rhythm: regular Heart sounds: normal: S1, S2 Abnormal Heart Sounds: Present: systolic murmur - Labs CBC & Chem 7: 05/11/22 06:46 05/11/22 06:46 Labs: Abnormal Lab Results - Last 24 Hours (Table) 05/10/22 05/10/22 05/10/22 Range/Units 11:11 16:32 20:25 WBC (3.8-10.6) k/uL RBC (4.30-5.90) m/uL Hgb (13.0-17.5) gm/dL Hct (39.0-53.0) % RDW (11.5-15.5) % Neutrophils # (1.3-7.7) k/uL Lymphocytes # (1.0-4.8) k/uL Sodium (137-145) mmol/L BUN (9-20) mg/dL Creatinine (0.66-1.25) mg/dL POC Glucose (mg/dL) 229 H 161 H 177 H (70-110) mg/dL Calcium (8.4-10.2) mg/dL AST (17-59) U/L ALT (4-49) U/L Total Protein (6.3-8.2) g/dL Albumin (3.5-5.0) g/dL 05/11/22 05/11/22 05/11/22 Range/Units 06:44 06:46 06:46 WBC 13.1 H (3.8-10.6) k/uL RBC 2.50 L (4.30-5.90) m/uL Hgb 7.6 L (13.0-17.5) gm/dL Hct 24.4 L (39.0-53.0) % RDW 18.6 H (11.5-15.5) % Neutrophils # 11.2 H (1.3-7.7) k/uL Lymphocytes # 0.5 L (1.0-4.8) k/uL Sodium 136 L (137-145) mmol/L BUN 35 H (9-20) mg/dL Creatinine 1.43 H (0.66-1.25) mg/dL POC Glucose (mg/dL) 116 H (70-110) mg/dL Calcium 8.0 L (8.4-10.2) mg/dL AST 66 H (17-59) U/L ALT 73 H (4-49) U/L Total Protein 5.3 L (6.3-8.2) g/dL Albumin 2.9 L (3.5-5.0) g/dL Assessment and Plan Assessment: Assessment #1 status post CABG and mitral valve repair #2 paroxysmal atrial fibrillation #3 recurrent pleural effusion #4 hematuria #5 anemia Plan Monitor the hemoglobin very closely. Hemoglobin this morning is above 7 Continue aspirin only and hold oral anticoagulation Follow-up with the patient
--- NOTE | 2022-05-11 08:43 | CDI ---
Documentation Clarification Form Date: 05/11/2022 08:18:55 AM From: Marsha Sainz CCS, CCDS Admit Date: 04/19/2022 05:43:00 AM Patient Name: Derek Araiza Visit Number: [id number] Discharge Date: ATTENTION: The Clinical Documentation Specialists (CDI) and [facility] Coding Staff appreciate your assistance in clarifying documentation. Please respond to the clarification below the line at the bottom and electronically sign. The CDI & [facility] Coding staff will review the response and follow-up if needed. Please note: Queries are made part of the Legal Health Record. If you have any questions, please contact the author of this message via ITS. Dr. Beto Bynum: Pneumonia is documented in the 04/29 through 05/04 Medical Management Progress Notes: Suspect Pneumonia, patient SOB, infiltrate on CXR, increasing WBC & Procalcitonin. Started on IV Cefepime for Pneumonia. Also documented in the 05/05 & 05/10 Progress notes without further specificity. Per the 05/10 Medical Management Progress Note: Sputum growing Margo albicans and Aspergillus fumigators. Additional clarification regarding the type of Pneumonia is requested. History/Risk Factors per the 04/20 Medical Management Consult: Atrial fibrillation, COPD, Diabetes Mellitus, GI bleed, Hypertension, Hyperlipidemia, CO, Pneumonia, CAD, Heart cath w/stent. Current smoker. Clinical Indicators: Presented 04/19 for elective surgery: Mitral valve repair, CABG x3, Closure of PFO & Modified Castanon Maze procedure. Postop op Diagnosis: Mitral valve regurgitation, CAD, Paroxysmal A Fib, Tricuspid regurgitation, Chronic valvular systolic CHF, Patent foramen ovale. 05/03 VS: T 97.9, P 75, 84; R 24, 26 (sob), BP 114/75, 89/71, 102/60; PO 94 2Lnc. 05/06 VS: T 97.9, P 72, R 19, 30 (sob), BP 101/46, 112/57; PO 92, 95 2Lnc. 05/03 LAB: WBC 17.0, Hgb 7.5, Hct 24.6, Neutrophils 14.6, Lymphocytes 0.5; Na 133, Chl 90, CO2 37, BUN 64, Creatinine 1.54, Glucose 143, ALT 92, CRP 5.3, Total protein 5.5, Albumin 3.1. 05/06 LAB: WBC 19.7, Hgb 6.2, Hct 20.4; Na 134, BUN 83, Cr 1.50, glucose 163, Calcium 8.2, ALT 63, CRP 2.6, Total Protein 4.9, Albumin 2.7. 05/03 Blood culture (final): No growth after 144 hours. 05/03 Sputum Culture (final): Margo albicans, Aspergillus fumigatus. 05/03 CXR: Continued pulmonary venous congestion with cardiomegaly and small scattered infiltrates. Stable on basis of congestive failure. 05/06 CXR: Cardiomegaly and mild pulmonary vascular congestion in right pleural effusion. Findings suspicious for CHF. Treatment 05/03: IV Anidulafungin 200 mg 200 mls @ 84 mls/hr x1, continued to 05/06. Also receiving IV Daptomycin 360 mg 50 mls @ 100 mls/hr q24H, IV Zosyn/Tazobactam 100 mls @ 25 mls/hr q8H. Please clarify the type of Pneumonia, if known: [ ] Aspiration Pneumonia, Due to food or vomitus [ ] Bacterial Pneumonia, specify causal organism (if known): [ ] Gram Negative Bacterial Pneumonia [ ] Other Pneumonia, please specify organism if known: [ ] Viral Pneumonia, specify casual organism (if known) [ ] Ventilator Associated Pneumonia, please specify associated organism if known: [ ] Other, please specify: [ ] Unable to determine (Template Last Revised: August 2020) Probable gram-negative organism pneumonia. MTDD
--- NOTE | 2022-05-11 09:07 | CDI ---
Documentation Clarification Form Date: 05/11/2022 08:45:20 AM From: Marsha Sainz CCS, CCDS Admit Date: 04/19/2022 05:43:00 AM Patient Name: Derek Araiza Visit Number: [id number] Discharge Date: ATTENTION: The Clinical Documentation Specialists (CDI) and [facility] Coding Staff appreciate your assistance in clarifying documentation. Please respond to the clarification below the line at the bottom and electronically sign. The CDI & [facility] Coding staff will review the response and follow-up if needed. Please note: Queries are made part of the Legal Health Record. If you have any questions, please contact the author of this message via ITS. Dr. Beto Bynum: The patient presented with the following clinical indicators. Additional clarification regarding the etiology/cause of the clinical indicators is requested. History/Risk Factors per the 04/20 Medical Management Consult: Atrial fibrillation, COPD, Diabetes Mellitus, GI bleed, Hypertension, Hyperlipidemia, [place], Pneumonia, CAD, Heart cath w/stent. Current smoker. Clinical Indicators: Presented 04/19 for elective surgery: Mitral valve repair, CABG x3, Closure of PFO & Modified Castanon Maze procedure. Postop op Diagnosis: Mitral valve regurgitation, CAD, Paroxysmal A Fib, Tricuspid regurgitation, Chronic valvular systolic CHF, Patent foramen ovale. The patient developed Pneumonia as of 04/29 and a GI Bleed on 05/06 requiring multiple blood transfusions and a Sacral Decubitus Ulcer Stage II on 04/30 requiring debridement. 04/19 Postoperative VS: T 97.9, P 83, R 14, BP 148/65, 90/39; PO 100 on 100% vent. Extubated same day to 4Lnc. 04/25 VS: T 97.8, P 64, R 29, BP 118/64, 99/57; PO 95 3L high flow. 04/29 VSS, PO 93 3Lnc. 05/03 VS: T 97.9, P 84, 105; R 15, 21; BP 118/66, 108/59, PO 95 2Lnc, 93 2Lnc. 05/06 VS: T 97.9, P 72, R 19, 30 (sob), BP 101/46, 112/57; PO 92, 95 2Lnc. 04/19 Postoperative LAB: WBC 14.0, Hgb 8.8, Hct 28.3, Neutrophils 12.0, Lymphocytes 0.6. 04/25 LAB: WBC 12.4, Hgb 7.2, Hct 23.4; Na 131, BUN 85, Creatinine 2.12, total protein 5.0, Albumin 3.1 04/29 LAB: WBC 18.5, Hgb 7.6, Hct 24.8, Neutrophils 15.1, lymphocytes 0.8; Na 129, Chl 94, Total protein 5.4, Albumin 3.3, Lactic Acid 0.7, Procalcitonin 0.72 05/03 LAB: WBC 17.0, Hgb 7.5, Hct 24.6, Neutrophils 14.6, Lymphocytes 0.5; Na 133, Chl 90, CO2 37, BUN 64, Creatinine 1.54, Glucose 143, ALT 92, CRP 5.3, Total protein 5.5, Albumin 3.1. 05/06 LAB: WBC 19.7, Hgb 6.2, Hct 20.4; Na 134, BUN 83, Cr 1.50, glucose 163, Calcium 8.2, ALT 63, CRP 2.6, Total Protein 4.9, Albumin 2.7. 05/03 Blood culture (final): No growth after 144 hours. 05/03 Sputum Culture (final): Margo albicans, Aspergillus fumigatus. 05/03 CXR: Continued pulmonary venous congestion with cardiomegaly and small scattered infiltrates. Stable on basis of congestive failure. 05/06 CXR: Cardiomegaly and mild pulmonary vascular congestion in right pleural effusion. Findings suspicious for CHF. Treatment 04/19: IV albumin 250 mls @ 250 mls/hr, IV Amiodarone drip, IV Calcium gluconate 100 mls @ 100 mls/hr x1, IV Precedex 100 mls, IV Dextrose 103 mls @ 618 mls/hr q10M, IV Insulin n101 mls aris, IV Propofol 100 mls aris, IV Cefazolin 50 mls @ 100 mls/hr q8H, IV Epinephrine 250 mls q24H, IV Nitro 250 mls q24H. 05/03: IV Anidulafungin 200 mg 200 mls @ 84 mls/hr x1, continued to 05/06. Also receiving IV Daptomycin 360 mg 50 mls @ 100 mls/hr q24H, IV Zosyn/Tazobactam 100 mls @ 25 mls/hr q8H. Blood Transfusions: 04/19: 2 units PRBCs, 1 unit Platelets, 2 units FFP. 05/04 - 05/09: 6 units PRBCs. In your professional opinion, please clarify if these findings signify one of the following conditions: [ ] Sepsis POA [ ] Sepsis, Not POA [ ] Severe Sepsis with organ failure [ ] Septic Shock [ ] Other, please specify: [ ] Unable to determine _Sepsis, not POA _ (Template Last Reviewed: July 2020) [facility]
[2022-05-11] MEDS: TAMSULOSIN 0.4 MG CAP.ER.24H PO SCH (09:22)
[2022-05-11] MEDS: AMIODARONE 200 MG TAB PO SCH (09:22)
[2022-05-11] MEDS: ASCORBIC ACID 500 MG TAB PO SCH (09:22)
[2022-05-11] MEDS: ASPIRIN 325 MG TAB PO SCH (09:22)
[2022-05-11] MEDS: PANTOPRAZOLE 40 MG/10 ML VIAL IVP SCH ×2 (09:23→20:17)
[2022-05-11] MEDS: POTASSIUM CHLORIDE ER 20 MEQ TAB.ER PO SCH (09:23)
[2022-05-11] MEDS: DAPAGLIFLOZIN PROPANEDIOL 5 MG TABLET PO SCH (09:23)
[2022-05-11] MEDS: METOPROLOL TARTRATE 25 MG TAB PO SCH ×2 (09:23→20:17)
[2022-05-11] MEDS: NON FORMULARY DRUG SQ SCH (09:23)
[2022-05-11] MEDS: guaiFENesin-DM 600/30MG 1 EACH TAB.ER.12H PO SCH ×2 (09:23→20:15)
[2022-05-11] MEDS: BUMETANIDE 0.25 MG/ML 10 ML VIAL IV SCH (09:23)
[2022-05-11] MEDS: BENZOCAINE/MENTHOL LOZENG 1 EACH LOZENGE MUCOUS MEM PRN ×3 (09:52→20:15)
[2022-05-11] MEDS: LIDOCAINE 5% PATCH TOPICAL SCH (10:42)
--- NOTE | 2022-05-11 11:37 | P.PN ---
Subjective Progress Note Date: 05/11/22 Principal diagnosis: Severe mitral valve regurgitation, coronary artery disease, paroxysmal atrial fibrillation, patent foramen ovale, tricuspid regurgitation, chronic systolic congestive heart failure. Past medical history significant for hypertension, hyperlipidemia, coronary artery disease with history of previous PCI, non-ST elevated myocardial infarction in November 2021, ischemic cardiomyopathy with EF 40- 45%, right internal carotid stenosis 50-79%, renal insufficiency, anemia with history of GI bleed in November 2021 S/P transfusion PRBCs, diabetes mellitus type 2, osteoarthritis, severe COPD, chronic ongoing nicotine dependence, remote history of pneumonia, chronic low back pain and hearing disorder. Nasal swab positive for MSSA preoperative POD #22 Mitral valve repair with 28 mm physio-2 ring, CABG 3 with saphenous vein grafts to first diagonal, obtuse marginal, posterior descending coronary arteries, closure of PFO, endovascular vein harvest, modified Castanon maze procedure with full left-sided lesion set and ligation of the left atrial appendage, SCOTT by anesthesia. Protamine reaction intraoperative Postoperative acute blood loss anemia, expected given his history of anemia, hemodilution and cardiopulmonary bypass Acute on chronic kidney failure, likely from hypotension from intraoperative protamine reaction Elevated transaminases, likely from hypotension from intraoperative protamine reaction Left pleural effusion, status post left-sided thoracentesis with removal of [address] Aguilar on 04/30/22 and again on 05/04/22 for 550 mL fluid Leukocytosis, afebrile, CRP and pro-calcitonin trending down, sputum culture negative, no pneumonia, no UTI, blood culture preliminary negative, likely due to sacral stage II ulcer The patient was seen and examined in follow-up today 05/11/2022 at his bedside in the intensive care unit. Currently sitting up to the bedside chair, is awake, alert, oriented 3 and is in no acute apparent distress. He denies any complaints of shortness of breath at this time, although reports earlier this morning he requested a breathing treatment due to some shortness of breath, he is complaining of some generalized pain to his sacrum. He's been afebrile the last 24 hours. He remains hemodynamically stable and is currently on no inotropic or pressor support. Oxygen saturations are 92% on room air and he is achieving 1000 mL on his incentive spirometry with much encouragement. Bedside telemetry showing normal sinus rhythm heart rate 75 BPM. Laboratory results as morning show a WBC count of 13.1, hemoglobin 7.6, hematocrit 24.4, platelets 229, sodium 136, potassium 4.7, BUN 35, creatinine 1.43, calcium 8.0, AST 66 and ALT 73. The patient was restarted on some Bumex 2 mg IV daily yesterday and his urine output in the last 8 hours was 650 mL. He reports he is still having some black stools, although his hemoglobin remained stable today at 7.6, Eliquis has been discontinued and he remains on aspirin 325 mg by mouth daily. Chest x-ray has been reviewed. Culture results remain negative and he remains on daptomycin and Zosyn for antibiotic coverage managed by infectious disease. Objective - Vital Signs Vital signs: Vital Signs Temp 98.8 F 05/11/22 08:00 Pulse 76 05/11/22 08:00 Resp 27 H 05/11/22 09:00 BP 121/85 05/11/22 09:00 Pulse Ox 94 L 05/11/22 09:00 FiO2 100 04/22/22 16:00 Intake & Output 05/10/22 05/11/22 05/11/22 18:59 06:59 18:59 Intake Total 600 230 400 Output Total 1300 800 400 Balance -700 -570 0 Weight 92.5 kg 93.4 kg Intake: IV 200 230 0.9 80 DAPTOmycin 360 mg In 50 Sodium Chloride 0.9% 50 ml @ 100 mls/hr IVPB Q24H ZULMA Rx#:[id number] Piperacillin-Tazobactam 3 200 100 .375 gm In Sodium Chloride 0.9% 100 ml @ 25 mls/hr IVPB Q8HR ZULMA Rx# :[id number] Oral 400 400 Output: Urine 1300 800 400 Other: Voiding Method Urinal Urinal Urinal # Voids 1 1 # Bowel Movements 1 1 1 ABP, PAP, CO, CI - Last Documented Arterial Blood Pressure 137/47 Pulmonary Artery Pressure 67/18 Cardiac Output 5.8 Cardiac Index 2.8 - Exam CONSTITUTIONAL: Sitting up to the bedside chair in the intensive care unit, appears comfortable, cooperative, no apparent acute distress. HEENT: Neck is supple, no JVD, no lymphadenopathy. RESPIRATORY: Lungs sounds essentially clear throughout, diminished to his bilateral bases with few scattered crackles. Respirations are symmetrical and nonlabored. Currently on room air oxygen with oxygen saturations 92%. Able to achieve 1000 mL on his incentive spirometry. Strong cough. CARDIOVASCULAR: Regular rhythm and rate. S1 and S2 present, negative for S3, gallop or murmur. Sternum is stable. Palpable peripheral pulses bilaterally, +1 edema to his bilateral lower extremities. No calf pain or tenderness noted. Heart hugger in place with patient demonstrating appropriate use. Knee-high RAFAEL hose and sequential compression devices in place to his bilateral lower extremities. Bedside telemetry showing normal sinus rhythm with heart rate 66 BPM. GASTROINTESTINAL: Abdomen soft, nontender, nondistended. Active bowel sounds present 4 quadrants. Tolerating diet. Passing flatus. No guarding or rigidity. Small tar-colored Bowel movement this morning 05/11/2022. GENITOURINARY: Continues to void. 650 mL of urine output in the last 8 hours. INTEGUMENTARY: Skin is warm and dry with no evidence of clubbing or cyanosis. Midline sternal incision clean dry and well approximated, covered with dry intact dressing. Bilateral lower extremity EVH sites well approximated without redness or drainage. Stage II to III decubitus ulcer present to his buttocks covered with optifoam. MUSKULOSKELETAL: Able to move all extremities, strength equal bilaterally, generalized weakness. PSYCHIATRIC: Alert and oriented to person place and time, appropriate affect, intact judgment and insight. - Allied health notes Allied health notes reviewed: nursing - Labs CBC & Chem 7: 05/11/22 06:46 05/11/22 06:46 Labs: Abnormal Lab Results - Last 24 Hours (Table) 05/10/22 05/10/22 05/10/22 Range/Units 11:11 16:32 20:25 WBC (3.8-10.6) k/uL RBC (4.30-5.90) m/uL Hgb (13.0-17.5) gm/dL Hct (39.0-53.0) % RDW (11.5-15.5) % Neutrophils # (1.3-7.7) k/uL Lymphocytes # (1.0-4.8) k/uL Sodium (137-145) mmol/L BUN (9-20) mg/dL Creatinine (0.66-1.25) mg/dL POC Glucose (mg/dL) 229 H 161 H 177 H (70-110) mg/dL Calcium (8.4-10.2) mg/dL AST (17-59) U/L ALT (4-49) U/L Total Protein (6.3-8.2) g/dL Albumin (3.5-5.0) g/dL 05/11/22 05/11/22 05/11/22 Range/Units 06:44 06:46 06:46 WBC 13.1 H (3.8-10.6) k/uL RBC 2.50 L (4.30-5.90) m/uL Hgb 7.6 L (13.0-17.5) gm/dL Hct 24.4 L (39.0-53.0) % RDW 18.6 H (11.5-15.5) % Neutrophils # 11.2 H (1.3-7.7) k/uL Lymphocytes # 0.5 L (1.0-4.8) k/uL Sodium 136 L (137-145) mmol/L BUN 35 H (9-20) mg/dL Creatinine 1.43 H (0.66-1.25) mg/dL POC Glucose (mg/dL) 116 H (70-110) mg/dL Calcium 8.0 L (8.4-10.2) mg/dL AST 66 H (17-59) U/L ALT 73 H (4-49) U/L Total Protein 5.3 L (6.3-8.2) g/dL Albumin 2.9 L (3.5-5.0) g/dL - Imaging and Cardiology Chest x-ray: report reviewed, image reviewed Assessment and Plan Assessment: 1. Severe mitral valve regurgitation, status post mitral valve repair 2. Coronary artery disease, previous PCI, previous non-STEMI, status post CABG 3 3. History of paroxysmal atrial fibrillation, previous cardioversion, on [facility] outpatient for anticoagulation, status post modified Castanon maze and ligation of left atrial appendage, currently in normal sinus rhythm 4. Patent foramen ovale, status post closure 5. Tricuspid regurgitation 6. Chronic diastolic congestive heart failure, ischemic cardiomyopathy with EF 40-45% 7. History of hypertension 8. History hyperlipidemia, treated, cholesterol 150, LDL 72 9. Right internal carotid stenosis 50-79% 10. Anemia with history of GI bleed in November 2021 S/P transfusion PRBCs 11. Acute on chronic renal failure, baseline creatinine 1.2-1.6 12. Diabetes mellitus type 2, preoperative hemoglobin A1c 5.6% 13. Osteoarthritis 14. Severe COPD, preoperative FEV1 41% of predicted 15. Chronic ongoing nicotine dependence 16. Remote history of pneumonia 17. Chronic low back pain 18. Hearing disorder 19. Nasal swab positive for MSSA preoperative 20. Postoperative acute blood loss anemia, expected 21. Elevated transaminases, continue to trend downward 22. Protamine reaction intraoperative 23. Medical debility, generalized weakness 24. Stage II-III decubitus to his buttocks, status post surgical debridement 25. Small left-sided pleural effusion, status post left-sided thoracentesis on 04/30/2022 26. Urinary retention possibly secondary to constipation Plan: 1. Continue full dose aspirin, and beta siomara. We will increase his metoprolol tartrate as tolerated. 2. Encourage incentive spirometry 10 times every hour while awake. Bronchodilators per pulmonology/critical care management. 3. Wound care Medihoney ordered for treatment for the patient's decubitus, managed by Dr. Chen from infectious disease. Antibiotic management per infectious disease recommendations. 4. Will monitor daily labs and chest x-rays. Electrolyte replacement per protocol. Avoid hepatotoxic and nephrotoxic medications. He received 1 unit of packed red blood cells 05/09/2022 for a hemoglobin of 6.6, today's hemoglobin is 7.6. 5. Increase activity, ambulate as tolerated. PT/OT/cardiac rehab following. Needs much encouragement with ambulation. 6. Insulin management per primary care service. Patient is a diabetic with a preoperative hemoglobin A1c of 5.6% on multiple oral medications, needs tight blood sugar control. 7. GI/DVT prophylaxis. 8. Continue Flomax and continue to record strict accurate I's and O's. 9. Pain control with current medication regimen. 10. Daily weights. 11. Shower daily. 12. Importance of risk modification including smoking cessation counseling and education provided to patient and family. 13. Discharged to inpatient rehab within the next 24-48 hours. 14. Continue Bumex 2 mg IV daily. 15. More recommendations to follow based on patient's clinical course. Time with Patient: Greater than 30
[2022-05-11 11:51] LABS: Glucose,Whole Blood 173 mg/dL (70-110)
--- NOTE | 2022-05-11 11:53 | P.PN ---
Subjective Progress Note Date: 05/11/22 Principal diagnosis: Status post CABG. This is a pleasant 72-year-old male patient with a known history of osteoarthritis was multiple orthopedic surgeries, diabetes mellitus, hyp erlipidemia, chronic tobacco dependence, paroxysmal atrial fibrillation. He was recently found to have coronary artery disease with a total occlusion of the RCA with collateral circulation, obtuse marginal with 99% stenosis and mild LAD disease. His ejection fraction is 45%. He was also found to have severe mitral regurgitation, moderate central tricuspid regurgitation as well as evidence of a PFO with [id number] shunt. He was recommended coronary artery bypass grafting and valvular repair. He was brought in to the hospital yesterday 04/20/2022 for an elective procedure. He did undergo mitral valve repair, coronary bypass grafting 3 with an SVG to the first diagonal, obtuse marginal and posterior descending coronary arteries, closure of a PFO, modified Castanon-Maze procedure and litigation of the left atrial appendage. He was successfully extubated within the 6 hour protocol. He is seen today in consultation in the intensive care unit. He is ready sitting up in a chair. Awake and alert in no acute distress. He is maintaining O2 saturation in the 90s on 3 L/m per nasal cannula. He has insulin drip at 5 units per hour. Lactated Ringer's at 20 miles per hour. He initially was on epinephrine drip that has been discontinued. He did receive 2 units of packed red blood cells, 2 units of fresh frozen plasma and 1 unit of platelets. White count 8.9. Hemoglobin 7.7. Platelets 139,000. Sodium 142. Potassium 5.5. Chloride 111. Bicarb 23. BUN 32. Creatinine 1.73. Glucose 125. AST 1:30. ALT 37. Magnesium 3.6. Mean arterial blood pressure in the 70s. PA pressures 50/18. CVP 12. Cardiac output 6.5. Cardiac index 3.1. He is on bronchodilators. Working well with the incentive spirometer. Chest x-ray reveals scattered opacities bilaterally. No evidence of pleural effusion, focal consolidation or pneumothorax. Mediastinal 2, left pleural chest tube in place. He is continued on oral amiodarone. Heparin for DVT prophylaxis. The patient is seen today in 04/21/2022 in follow-up in the intensive care unit. He is currently sitting up in a recliner at the bedside. Maintaining O2 saturations on 5 L/m per nasal cannula. He did require BiPAP support last evening and was placed on 14/10 and 100% FiO2 eventually decreased to 40%. He is currently on a Lasix drip at 5 mg per hour. Dopamine drip at 2 mcg/kg/m. Cardiac output 4.6. Cardiac index 2.2. He is dual pacing. He has normal saline at 20 ML's per hour. He is unemployed about 750 MLS on the incentive spirometer. His x-ray continues to show cardiomegaly with ongoing mild pulmonary vascular congestion. Increasing patchy bibasilar opacities/atelectasis. Right IJ [place] catheter remains in place. He is sternal and left sided chest tubes remain in place. No pneumothorax. White count 9.6. Hemoglobin 7.3. Platelets 144. Sodium 132. Potassium 5.4. Bicarb 21. BUN 41. Creatinine 2.53. Glucose 175. AST 1309. ALT 547. Albumin 3.6. The patient does have a cyst the year smoking history. He remains on DuoNeb inhalations 4 times a day and when necessary. Heparin for DVT prophylaxis. Progress note dated 04/22/2022. 72-year-old male, who is currently seen in room 267. He's postop day #3. The patient's currently on 8 L high flow oxygen. He is getting dopamine at 2 mcg/kg/m, a Lasix drip at 10 mg an hour, insulin at 1.5 units an hour, and saline at 20 mL an hour. Labs today include a white count of 8.5, hemoglobin 7.4, hematocrit 23.3, and a platelet count of 135,000. Sodium 131, potassium 5.8, chlorides 102, CO2 23, BUN 51, and creatinine 3.1. AST was 2217. ALT is 1006. Chest x-ray shows cardiomegaly, and pulmonary vascular congestion. Reevaluated today on 05/05/22, remains in the ICU, remains marginal at best. Today the patient is feeling a bit better, and he would likely feel even better once he gets another unit of packed RBCs continues to have low hemoglobin. Chest x-ray showed minimal atelectasis, no clear-cut evidence of congestive he art failure. Patient is sitting at a bedside chair, he is on 2 L nasal cannula, able to achieve about 1000 mL via incentive spirometry. No pain, no discomfort, continues to have a sacral decubitus ulcer stage II3. Hemoglobin today is 6.7, was 6.1 yesterday, and he will receive another unit of packed RBCs today. Reevaluated today on 05/06/22, remains in the ICU, patient is doing well, requiring another unit of packed RBCs today, patient is having hematuria, and that's going to be addressed by urology which was consulted. Pulmonary-arboleda is about the same, remains on 2 L nasal cannula, chest x-ray is showing evidence of interstitial edema and small tiny left-sided and right-sided pleural effusions, not large enough to consider thoracentesis at this point yet. He remained generally weak and short of breath with any activity. Hemoglobin today is 6.2, WBC count is 19.7, patient was placed on daptomycin and Eraxis empirically by infectious disease on the case. All cultures have been nondiagnostic so far including blood pleural effusion cultures and sputum cultures. Patient does hav e a sacral decubitus ulcer that may be causing his leukocytosis Progress note dated 05/07/2022. 72-year-old male status post four-vessel bypass grafting, mitral valve repair, and Castanon-Maze procedure. The patient is currently on 2 L of oxygen. Not receiving any IV fluids. He, he's had problems with anemia, he is receiving his sixth unit of blood. Surgery was consulted. White count 23.1, hemoglobin 6.2, hematocrit 20.5, and platelet count 334,000. Sodium 136, potassium 4.2, chlorides 100, due to 27, anion gap 9, BUN 77, and creatinine 1.48. Chest x-ray shows cardiomegaly, and small right pleural effusion. Progress note dated 05/08/2022. 72-year-old male, status post four-vessel bypass grafting, mitral valve repair, and Castanon-Maze procedure. The patient is seen again in room 267, in the intensive care unit. He's on 2 L of oxygen. He is on no IV fluids. Because of ongoing anemia, the patient is receiving his 7 unit of packed red blood cells. He is scheduled for an EGD today. White count 14.9, hemoglobin 5.9, hematocrit 18.8, and platelet count 257,000. Sodium 137, potassium 3.9, chlorides 105, CO2 29, BUN 68, and creatinine 1.48. Chest x-ray show some cardiomegaly, and some mild pulmonary vascular congestion. Chest x-ray is largely unchanged. Progress note dated 05/09/2022. A 72-year-old male, again seen in room 267. He status post four-vessel bypass grafting, and mitral valve repair, along with a Castanon-Maze procedure. The patient has received a total of 7 units of packed red blood cells since being here in the ICU. He is currently on 2 L of oxygen. Not receiving any IV fluids. He did have an EGD yesterday, which did not reveal any active bleeding although there was blood in the gastrointestinal tract. Clinically, he is feeling a bit better today. White count 14.7, hemoglobin 6.6, hematocrit 20.7, platelet count 241,000. Sodium 137, potassium 4.1, chlorides 107, CO2 27, BUN 51, creatinine 1.27. Chest x-ray shows cardiomegaly with small right-sided effusion. Progress note dated 05/10/2022. 72-year-old male, again seen in room 267. He's on 2 L of oxygen. No IV fluids. The patient did receive another unit of packed red blood cells, making his total of 8 units. The patient sitting in a chair next to his bed. He was complaining about his blood sugars being out of control, and the fact that he was being fed to many carbohydrates. White count 12.6, hemoglobin 7.6, hematocrit 23.9, and platelet count 219,000. Sodium 139, potassium 4.2, chlorides 107, CO2 26, BUN 40, creatinine 1.33. Chest x-ray shows cardiomegaly, and some basilar atelectatic changes. Progress note dated 05/11/2022. 72-year-old male, again seen in room 267. He continues on room air, without any IV fluids. Hemoglobin this morning was 7.6. He's received a total of 8 units of packed red blood cells. Clinically, he is doing well. White count 13.1, hemoglobin 7.6, hematocrit 24.4, and platelet count 229,000. Sodium 136, potassium 4.7, chlorides 106, CO2 23, BUN 35, and creatinine 1.43. Chest x-ray shows cardiomegaly, bibasilar atelectasis, and very small pleural effusions bilaterally. Objective - Vital Signs Vital signs: Vital Signs Temp 98.8 F 05/11/22 08:00 Pulse 72 05/11/22 11:18 Resp 20 05/11/22 11:00 BP 93/59 05/11/22 11:00 Pulse Ox 93 L 05/11/22 11:00 FiO2 100 04/22/22 16:00 Intake & Output 05/10/22 05/11/22 05/11/22 18:59 06:59 18:59 Intake Total 600 230 500 Output Total 1300 800 400 Balance -700 -570 100 Weight 92.5 kg 93.4 kg Intake: IV 200 230 100 0.9 80 DAPTOmycin 360 mg In 50 Sodium Chloride 0.9% 50 ml @ 100 mls/hr IVPB Q24H [facility] Rx#:[id number] Piperacillin-Tazobactam 3 200 100 100 .375 gm In Sodium Chloride 0.9% 100 ml @ 25 mls/hr IVPB Q8HR ZULMA Rx# :[id number] Oral 400 400 Output: Urine 1300 800 400 Other: Voiding Method Urinal Urinal Urinal # Voids 1 1 # Bowel Movements 1 1 1 ABP, PAP, CO, CI - Last Documented Arterial Blood Pressure 137/47 Pulmonary Artery Pressure 67/18 Cardiac Output 5.8 Cardiac Index 2.8 - Exam No acute distress, oriented 3. No audible wheezing, use of accessory muscles, or conversational dyspnea. The patient looks pale. The patient's on room air. HEENT examination is grossly unremarkable. Neck supple. Full range of motion. No adenopathy thyromegaly or neck vein distention. Cardiovascular examination reveals regular rhythm rate. S1-S2 normal. No S3 or S4. No discernible murmur noted. Heart rate is 72 bpm. Heart sounds are distant. Lungs reveal scattered bilateral rhonchi. Crackles at the bases. No wheezes. Breath sounds are equal bilaterally. Saturations are 93 %. Abdomen soft bowel sounds are heard. No masses or tenderness. Extremities are intact. No cyanosis clubbing or edema. Skin is without rash or lesion. Neurologic examination is brief but nonfocal. - Labs CBC & Chem 7: 05/11/22 06:46 05/11/22 06:46 Labs: Abnormal Lab Results - Last 24 Hours (Table) 05/10/22 05/10/22 05/11/22 Range/Units 16:32 20:25 06:44 WBC (3.8-10.6) k/uL RBC (4.30-5.90) m/uL Hgb (13.0-17.5) gm/dL Hct (39.0-53.0) % RDW (11.5-15.5) % Neutrophils # (1.3-7.7) k/uL Lymphocytes # (1.0-4.8) k/uL Sodium (137-145) mmol/L BUN (9-20) mg/dL Creatinine (0.66-1.25) mg/dL POC Glucose (mg/dL) 161 H 177 H 116 H (70-110) mg/dL Calcium (8.4-10.2) mg/dL AST (17-59) U/L ALT (4-49) U/L Total Protein (6.3-8.2) g/dL Albumin (3.5-5.0) g/dL 05/11/22 05/11/22 Range/Units 06:46 06:46 WBC 13.1 H (3.8-10.6) k/uL RBC 2.50 L (4.30-5.90) m/uL Hgb 7.6 L (13.0-17.5) gm/dL Hct 24.4 L (39.0-53.0) % RDW 18.6 H (11.5-15.5) % Neutrophils # 11.2 H (1.3-7.7) k/uL Lymphocytes # 0.5 L (1.0-4.8) k/uL Sodium 136 L (137-145) mmol/L BUN 35 H (9-20) mg/dL Creatinine 1.43 H (0.66-1.25) mg/dL POC Glucose (mg/dL) (70-110) mg/dL Calcium 8.0 L (8.4-10.2) mg/dL AST 66 H (17-59) U/L ALT 73 H (4-49) U/L Total Protein 5.3 L (6.3-8.2) g/dL Albumin 2.9 L (3.5-5.0) g/dL Assessment and Plan Assessment: Coronary artery disease with valvular heart disease. Status post mitral valve repair, coronary bypass grafting 3 with an SVG to the first diagonal, obtuse marginal and posterior descending coronary arteries, closure of a PFO, modified Castanon-Maze procedure and litigation of the left atrial appendage. Postoperative day #22. Acute hypoxemic respiratory failure secondary to above. Currently on room air. Paroxysmal atrial fibrillation. Chronic and ongoing tobacco dependence. Chronic obstructive pulmonary disease, FEV1 value of 52% of predicted. Acute on chronic anemia, status post 8 units packed red blood cells. Osteoarthritis. Diabetes mellitus. Hyperlipidemia. Plan: Plan dated 04/22/2022. The patient will absolutely not wearing the BiPAP device. The patient is on dopamine, Lasix drip, and insulin drip. Today is postop day #3. Labs, x-rays, and medications are reviewed. The patient's overall prognosis remains guarded. We will continue to follow and make recommendations along the way. The patient continues on DVT and GI prophylaxis. He continues on breathing treatments. Prognosis is guarded. Plan dated 05/07/2022. The patient is receiving his sixth unit of blood. Surgery has been consulted fo r his ongoing anemia, and suspected GI bleed. We will continue to follow this patient and make recommendations along the way. Labs, x-rays, and medications are reviewed. Clinically, the patient looks reasonable, but pale. He's been weaned down to 2 L of oxygen. Prognosis is guarded. Plan dated 05/08/2022. The patient is currently receiving his seventh unit of blood. He is scheduled for an EGD today. He's on 2 L of oxygen. No IV fluids. The patient's overall prognosis remains very guarded. We will continue to follow make recommendations along the way. Labs, x-rays, and medications are all reviewed. Plan dated 05/09/2022. The patient appears to be doing a bit better today. He's received a total of 7 units of PRBCs. He had an EGD yesterday. His sacral decubitus ulcer was also debrided yesterday. Labs, x-rays, and medications are reviewed. We will continue to follow. Prognosis is guarded. He still a bit anemic today, but no additional decision has been made about additional blood at this time. We will continue to follow make recommendations along the way. Plan dated 05/10/2022. The patient appears to be doing about the same to slightly better. He did receive 1 additional unit of blood. That makes a total of 8 units of packed red blood cells. The patient's on 2 L of oxygen. No IV fluids. His hemoglobin this morning was 7.6. We will continue to follow. His blood glucose today was better at 108. Labs, x-rays, and medications are reviewed. Prognosis is guarded. Plan dated 05/11/2022. The patient is currently on room air. He appears relatively stable. Today's morning hemoglobin is 7.6. No additional blood transfusions are planned. We will continue to follow. Prognosis is guarded. Labs, x-rays, and medications are all reviewed. Time with Patient: Less than 30
[2022-05-11 16:27] LABS: Glucose,Whole Blood 168 mg/dL (70-110)
--- NOTE | 2022-05-11 16:31 | P.PN ---
Subjective Progress Note Date: 05/11/22 CHIEF COMPLAINT: GI bleed, sacral decubitus ulcer HISTORY OF PRESENT ILLNESS: Patient is currently in the ICU. Patient is status post EGD revealing duodenitis, hiatal hernia, distal esophagitis. There was blood in the third and fourth portion of the duodenum. Patient also had incision and drainage and debridement of sacral decubitus ulcer with abscess on 05/08/22. Patient's continues to have black stools. He reports to stools yesterday and one stool this morning. Hemoglobin is receiving remaining stable at 7.6. He does report improvement in the sacral wound. He denies any nausea or vomiting. Tolerating diet. Afebrile. WBC 13.1 Hgb 7.6 points to 29 creatinine 1.43 Patient seen and examined with Dr. martinez PHYSICAL EXAM: VITAL SIGNS: Reviewed. GENERAL: Well-developed in no acute distress. HEENT: No sclera icterus. Extraocular movements grossly intact. Moist buccal mucosa. Head is atraumatic, normocephalic. ABDOMEN: Soft. Nondistended. Nontender. NEUROLOGIC: Alert and oriented. Cranial nerves II through XII grossly intact. Skin: Sacral decubitus ulcer has been debrided. healthy pink tissue noted. mild pink around wound ASSESSMENT: 1. Sacral decubitus ulcer and abscess status post incision, drainage and debridement 2. Acute GI bleed possibly due to AVMs. Status post EGD revealing duodenitis, hiatal hernia and distal esophagitis PLAN: -Continue local wound care to sacral ulcer -Patient can shower and clean sacral wound in shower -Continue to hold Eliquis -Continue PPI -Continue to monitor hemoglobin and transfuse as needed -Continue monitoring for any signs or symptoms of bleeding -Continue to monitor. If hemoglobin drops patient may require transfer to tertiary care center. Concerns for possible duodenal AVM bleeding. Patient would need to be seen by GI specialist. Physician Sales Account Leader note has been reviewed by physician. Signing provider agrees with the documented findings, assessment, and plan of care. Objective - Vital Signs Vital signs: Vital Signs Temp 98.5 F 05/11/22 12:00 Pulse 72 05/11/22 12:00 Resp 21 05/11/22 12:00 BP 93/59 05/11/22 12:00 Pulse Ox 92 L 05/11/22 12:00 FiO2 100 04/22/22 16:00 Intake & Output 05/10/22 05/11/22 05/11/22 18:59 06:59 18:59 Intake Total 600 230 500 Output Total 1300 800 600 Balance -700 -570 -100 Weight 92.5 kg 93.4 kg Intake: IV 200 230 100 0.9 80 DAPTOmycin 360 mg In 50 Sodium Chloride 0.9% 50 ml @ 100 mls/hr IVPB Q24H [facility] Rx#:[id number] Piperacillin-Tazobactam 3 200 100 100 .375 gm In Sodium Chloride 0.9% 100 ml @ 25 mls/hr IVPB Q8HR [facility]MA Rx# :[id number] Oral 400 400 Output: Urine 1300 800 600 Other: Voiding Method Urinal Urinal Urinal # Voids 1 1 # Bowel Movements 1 1 1 ABP, PAP, CO, CI - Last Documented Arterial Blood Pressure 137/47 Pulmonary Artery Pressure 67/18 Cardiac Output 5.8 Cardiac Index 2.8 - Labs CBC & Chem 7: 05/11/22 06:46 05/11/22 06:46 Labs: Abnormal Lab Results - Last 24 Hours (Table) 05/10/22 05/10/22 05/11/22 Range/Units 16:32 20:25 06:44 WBC (3.8-10.6) k/uL RBC (4.30-5.90) m/uL Hgb (13.0-17.5) gm/dL Hct (39.0-53.0) % RDW (11.5-15.5) % Neutrophils # (1.3-7.7) k/uL Lymphocytes # (1.0-4.8) k/uL Sodium (137-145) mmol/L BUN (9-20) mg/dL Creatinine (0.66-1.25) mg/dL POC Glucose (mg/dL) 161 H 177 H 116 H (70-110) mg/dL Calcium (8.4-10.2) mg/dL AST (17-59) U/L ALT (4-49) U/L Total Protein (6.3-8.2) g/dL Albumin (3.5-5.0) g/dL 05/11/22 05/11/22 05/11/22 Range/Units 06:46 06:46 11:49 WBC 13.1 H (3.8-10.6) k/uL RBC 2.50 L (4.30-5.90) m/uL Hgb 7.6 L (13.0-17.5) gm/dL Hct 24.4 L (39.0-53.0) % RDW 18.6 H (11.5-15.5) % Neutrophils # 11.2 H (1.3-7.7) k/uL Lymphocytes # 0.5 L (1.0-4.8) k/uL Sodium 136 L (137-145) mmol/L BUN 35 H (9-20) mg/dL Creatinine 1.43 H (0.66-1.25) mg/dL POC Glucose (mg/dL) 173 H (70-110) mg/dL Calcium 8.0 L (8.4-10.2) mg/dL AST 66 H (17-59) U/L ALT 73 H (4-49) U/L Total Protein 5.3 L (6.3-8.2) g/dL Albumin 2.9 L (3.5-5.0) g/dL Microbiology - Last 24 Hours (Table) 04/30/22 16:45 Fungal Culture - Preliminary Pleural Fluid
--- NOTE | 2022-05-11 18:09 | P.PN ---
Progress Note - Text Progress Note Date: 05/11/22 Patient is a pleasant 72-year-old male came in the for elective mitral valve repair, CABG x 3 vessel, maze procedure, PFO closure. Patient is extubated sitting in the chair patient still has a [place] catheter, CVP of around 12, cardiac index 3.1 patient creatinine went up to 1.70 resulting elevated potassium of 5.5 patient is off pressor support, off nitro drip patient still has 2 mediastinal and one left-sided chest tube. 04/21/2022 Patient is evaluated in ICU today, sitting up in chair. He is postoperative day #2 for elective mitral valve repair, hematocrit bypass grafting maze procedure and PFO closure. He is on BiPAP with fio2 of 40% Continues with mediastinal/left pleural chest tubes. Continue with indwelling catheter. Received dose of IV albumin yesterday afternoon. Chest xray today showing ongoing mild pulmonary vascular congestion, increasing patchy bibasilar opacities, atelectasis vs. pulmonary edema. Currently on lasix gtt at 10mls/hr, continues on dopamine gtt at 3.68 mls/hr. Continues on insulin gtt and blood glucose remains in the 140 to 130s. Labs today showing sodium 132, potassium 6.1 improved to 5.4, BUN 41, creatinine 2.53, elevated liver enzymes. Hgb 7.3. 04/22/2022 Patient continues to be monitored closely in intensive care unit, he is postoperative day #3 for elective mitral valve repair, maze procedure, PFO closure. Managed by primary team. He had limited echocardiogram completed showing EF 45 to 50%, mild to moderate MR, moderate pulmonary hypertension with moderate TR. Chest xray today shows slight improvement in pulmonary vascular congestion. Maintained on lasix gtt at 10mls/hr, dopamine gtt, Continues with 2 mediastinal chest tubes. Continues with indwelling catheter. Continues with right IJ swan/cordis, right radial arterial line. He has been weaned off BiPAP currently on high flow cannula at 15L. He has been tolerating some diet. Continues on insulin gtt which will continue until his diet stabilizes. Current glucose in the 140s. Creatinine today 3.14. April 23: I assumed care of patient today from [facility]. ICU. In a recliner. Tired. Little oral intake. Nasal cannula. Drips include IV dopamine and Lasix. Some shortness of breath. Mooney catheter. 04/24/2022: ICU. Up. 4 L nasal cannula. Did eat better. Edema present. On the Lasix drip 5 mg an hour. Some improvement in creatinine. 04/25/2022: ICU. Up in a recliner. Eating better. at the bedside. Edema present. Off Lasix drip. Feeling better. Creatinine coming down. LFTs improving. Home dose of Victoza was started 04/26/2022: ICU. Up in a recliner. 4 L nasal cannula. Eating about 50%. Accu-Cheks noted. 04/27/2022: ICU: Patient went into atrial fibrillation overnight. Put on oral amiodarone and Lopressor per CTS.. Some worsening of shortness of breath. Placed on IV Lasix. Eating some. Up in a recliner. 04/28/2022: ICU. Patient received Lopressor today for the A. fib. Patient went down into sinus rhythm. Blood pressure also dropped her was 70 systolic. Oxygen increased to 4 L. Short of breath. Patient did walk 10-12 steps up to the door. Eating fair. Lower extremity edema edema present. Up in a chair. Tired. 04/29/2022: ICU. Short of breath. 3 L nasal cannula. Eating fair. Edema pre sent. Getting Bumex. Getting IV albumin and IV calcium. Using incentive spirometry. Up in a chair. Discussed with at the bedside. Increasing white count, infiltrated urine chest x-ray suggestive of pneumonia. Started on IV cefepime 04/30/2022: ICU. Remains short of breath. 3 L nasal cannula. Started on IV cefepime yesterday.. Oral intake fair. Edema present. Remains on Bumex. Fo sher catheter. Discussed with patient and at the bedside. Discussed with Dr. Cortez from cardiothoracic surgery. 05/01/2022: ICU. Zaroxolyn was added. Good diuresis. Breathing better. On IV cefepime. Left paracentesis is done. 850 mL removed. Oral intake fair. Breathing a bit better. Telemetry shows sinus rhythm. 2 L nasal cannula. at the bedside. Will DC Actos. Even though smaller dose. Given CHF renal failure. Increase Lantus to 12 units. 05/02/2022: ICU. Over 3 is a negative fluid balance. Last 24 hours. Some improvement in breathing. Oral intake fair. Remains in atrial fibrillation controlled. 2 L nasal cannula. Add Diamox. 4 metabolic alkalosis 05/03/2022: ICU. This morning patient became short of breath. Dr. Chen from [place] consulted for sacral decub. Remains on IV cefepime. Oral intake fair. Had a BM. On IV Bumex. I discussed with Dr. Aguilar from pulmonary. Patient is known to him. Advanced COPD. His right lung changes are chronic. Has had previous CAT scans. He may have had a located effusion. 05/04/2022: ICU. Breathing a bit better. Hemoglobin dropped to 6.1. Awaiting transfusion. Tolerating diet. On IV cefepime. Patient started on IV eraxis by Dr. Prescott from [place]. 05 May 2022: ICU. Patient received a unit of blood yesterday evening. Getting another unit of blood today. Breathing better. Remains on IV Bumex. IV cefepime discontinued. Remains on IV Eraxis. Oral intake fair. Up in a chair. at the bedside. Increase Levemir to 20 units at night. 05/06/2022: ICU. Patient received a 3rd unit blood this morning. Breathing better. Had some blood in his urine. On 2 L is cannula. Sitting up in a chair, eating better. Some cough with brownish sputum. 05/07/2022: ICU. Up in a chair. Eating better. On 2 L nasal cannula. On IV daptomycin. IV Zosyn. Has had dark stools but is on iron. We'll hold off oral iron to see if stool color lightens. Add NovoLog 5 units scheduled with meals. Hemoglobin dropped again to 6.2. Received 1 unit of blood today. 05/08/2022: ICU. Seen by me this morning. Hemoglobin further dropped again. 5.9. Data patient underwent EGD by Dr. Fiore. Fresh blood seen in the third and fourth portion of duodenum of blood clots noted. No obvious source noted. Patient is on PPI. Also sacral decub ulcer abscess also drained. Patient received a unit of blood this morning. Discussed with Neema from cardiothoracic team. Patient does not like hospital food. has been free eating food from outside. Including [employer] fish [employer] etc. Difficult to control Accu- Cheks. Concerned the patient may become hypoglycemic if a more aggressive. farxiga is being added. 05/09/2022: ICU. No further drop in hemoglobin after blood transfusion yesterday. Patient is off eliquis. Had a dark stool today. Oral intake fair. On 2 L nasal cannula. On IV daptomycin IV Zosyn. 05/10/2022: ICU. Patient had no further drop in hemoglobin. Had a black stool. Off oxygen. Eating well. Accu-Cheks will stabilize. On IV daptomycin IV Zosyn. Sputum growing Margo albicans and Aspergillus fumigators. We'll decrease Levemir to 16 units. Decreased scheduled NovoLog to 3 units with meals. 05/11/2022: ICU. Patient was short of breath this morning. Remains on IV Bumex. Had black stool today. Hemoglobin remained stable. Accu-Cheks followed. Levemir cutback to 12 units at night. Remains on IV daptomycin IV Zosyn. Up in a chair. Active Medications Acetaminophen (Acetaminophen Tab 325 Mg Tab) 650 mg PO Q6HR PRN PRN Reason: Fever and/ or Mild Pain Last Admin: 05/10/22 09:27 Dose: 650 mg Hydrocodone Bitart/Acetaminophen (Hydrocodone/Apap 5-325mg 1 Each Tab) 1 each PO Q4HR PRN PRN Reason: Moderate Pain (Scale 4 to 6) Last Admin: 05/10/22 21:16 Dose: 1 each Albuterol/Ipratropium (Ipratropium-Albuterol 3 Ml Neb) 3 ml INHALATION RT-Q2H PRN PRN Reason: Shortness Of Breath Or Wheezing Last Admin: 05/11/22 05:52 Dose: 3 ml Albuterol/Ipratropium (Ipratropium-Albuterol 3 Ml Neb) 3 ml INHALATION RT-QID ZULMA Last Admin: 05/11/22 16:22 Dose: 3 ml Ascorbic Acid (Ascorbic Acid 500 Mg Tab) 500 mg PO DAILY [facility] Last Admin: 05/11/22 09:22 Dose: 500 mg Aspirin (Aspirin 325 Mg Tab) 325 mg PO DAILY [facility] Last Admin: 05/11/22 09:22 Dose: 325 mg Benzocaine/Menthol (Benzocaine/Menthol Lozeng 1 Each Lozenge) 1 each MUCOUS MEM Q2HR PRN PRN Reason: Sore Throat Last Admin: 05/11/22 15:40 Dose: 1 each Bisacodyl (Bisacodyl 10 Mg Supp) 10 mg RECTAL DAILY PRN PRN Reason: Constipation Last Admin: 05/09/22 09:10 Dose: 10 mg Budesonide/Formoterol Fumarate (Symbicort 160-4.5 Mcg Inhaler) 2 puff INHALATION RT-BID [facility] Last Admin: 05/11/22 07:49 Dose: 2 puff Bumetanide (Bumetanide 0.25 Mg/Ml 10 Ml Vial) 2 mg IV DAILY [facility] Last Admin: 05/11/22 09:23 Dose: 2 mg Dapagliflozin (Dapagliflozin Propanediol 5 Mg Tablet) 5 mg PO DAILY [facility] Last Admin: 05/11/22 09:23 Dose: 5 mg Dextrose/Water (Dextrose 50% Syringe 50 Ml) 25 ml IVP PER PROTOCOL PRN; Protocol PRN Reason: Hypoglycemia Dextrose/Water (Dextrose 50% Syringe 50 Ml) 50 ml IVP PER PROTOCOL PRN; Protocol PRN Reason: Hypoglycemia Guaifenesin/Dextromethorphan (Guaifenesin-Dm 600/30mg 1 Each Tab.Er.12h) 1 each PO Q12HR [facility]ULMA Last Admin: 05/11/22 09:23 Dose: 1 each Daptomycin 360 mg/ Sodium (Chloride) 50 mls @ 100 mls/hr IVPB Q24H [facility]; Protocol Last Admin: 05/11/22 00:13 Dose: 100 mls/hr Piperacillin Sod/Tazobactam (Sod 3.375 gm/ Sodium Chloride) 100 mls @ 25 mls/hr IVPB Q8HR [facility]; Protocol Last Admin: 05/11/22 15:36 Dose: 25 mls/hr Insulin Aspart (Insulin Aspart (Novolog) 100 Unit/Ml Vial) 0 unit SQ ACHS [facility]ULMA; Protocol Last Admin: 05/11/22 16:51 Dose: 2 unit Insulin Aspart (Insulin Aspart (Novolog) 100 Unit/Ml Vial) 3 unit SQ AC-TID [facility] Last Admin: 05/11/22 16:51 Dose: 3 unit Insulin Detemir (Insulin Detemir (Levemir) 100 Unit/Ml Syr) 12 unit SQ HS [facility] Lidocaine (Lidocaine 5% Patch) 2 patch TOPICAL DAILY [facility]; Protocol Last Admin: 05/11/22 10:42 Dose: 2 patch Magnesium Hydroxide (Magnesium Hydroxide 2,400 Mg/10 Ml Cup) 2,400 mg PO BID PRN PRN Reason: Constipation Last Admin: 04/22/22 07:08 Dose: 2,400 mg Metoprolol Tartrate (Metoprolol Tartrate 25 Mg Tab) 25 mg PO BID [facility] Last Admin: 05/11/22 09:23 Dose: 25 mg Miscellaneous Information (Potassium Replacement Protocol 1 Each Misc) 1 each MISCELLANE DAILY PRN; Protocol PRN Reason: Per Protocol Miscellaneous Information (Magnesium Replacement Protocol 1 Each Misc) 1 each MISCELLANE DAILY PRN; Protocol PRN Reason: Per Protocol Non-Formulary Medication (Non Formulary Drug) 1 each SQ DAILY [facility] Last Admin: 05/11/22 09:23 Dose: 1 each Ondansetron HCl (Ondansetron 4 Mg/2 Ml Vial) 4 mg IVP Q6HR PRN PRN Reason: Nausea And Vomiting Last Admin: 04/27/22 09:22 Dose: 4 mg Pantoprazole Sodium (Pantoprazole 40 Mg/10 Ml Vial) 40 mg IVP BID [facility] Last Admin: 05/11/22 09:23 Dose: 40 mg Potassium Chloride (Potassium Chloride Er 20 Meq Tab.Er) 20 meq PO DAILY [facility] Last Admin: 05/11/22 09:23 Dose: 20 meq Senna/Docusate Sodium (Sennosides-Docusate Sodium 1 Each Tab) 2 each PO HS [facility] Last Admin: 05/10/22 21:07 Dose: 2 each Sodium Chloride (Sodium Chloride 0.9% Flush 10 Ml Syringe) 10 ml IV BID [facility] Last Admin: 05/11/22 09:23 Dose: 10 ml Tamsulosin HCl (Tamsulosin 0.4 Mg Cap.Er.24h) 0.4 mg PO PC-BRKFST [facility] Last Admin: 05/11/22 09:22 Dose: 0.4 mg On examination: VITAL SIGNS: 98.5, 77, 18, 107 with 52, 92% room air GENERAL APPEARANCE: Up in chair, which showed a breath HEENT: Normal external appearance of nose and ear. Oral cavity normal EYES: Pupils equal. Conjunctiva normal. NECK: JVD not raised. Mass not palpable. RESPIRATORY: Respiratory effort increased. Lungs diminished breath sounds. CARDIOVASCULAR: First and second sounds normal. Edema present ABDOMEN: Soft. Liver and spleen not palpable. No tenderness. No mass palpable. Sacral decub. Using a doughnut PSYCHIATRY: AO 3, mood and affect normal INVESTIGATIONS, reviewed in the clinical context: 05/11/2022: WBC 13.1 hemoglobin 7.6 platelets 229 potassium 4.7 BUN 35 creatinine 1.43 05/10/2022: WBC 12.6-year-old globin 10.6 potassium 4.2 BUN 40 creatinine 1.33 05/09/2022: WBC 14.70 globin 6.6 platelets 241 potassium 4.1. 51 and creatinine 1.27 05/08/2022: WBC 14.9 hemoglobin 5.9 platelets 27 BUN 68 creatinine 1.48 05/07/2022: WBC 23.1 hemoglobin 6.2 platelets 334 potassium 4.2 BUN 77 creatinine 1.48 AST 69 ALT 70 05/06/2022: WBC 19.7 hemoglobin 6.2 platelets 322 potassium 3.8. 83 creatinine 1.50 05/05/2022: WBC 18.1 hemoglobin 6.7 potassium 4. 85 creatinine 1.46 05/04/2022: WBC 16 hemoglobin 6.1 platelets 362 potassium 3.7 BUN 75 creatinine 1.75 Limited 2-D echocardiogram [May 01]: EF 45%. [id number] MR, moderate aortic stenosis 05/01/2022: WBC 15.3 hemoglobin 7.2 platelets 305 potassium 4. [address] chest [April 29]: Moderate partial obliterate right pleural effusion, left pleural effusion, cardiomegaly. 04/24/2022: WBC 9.2 hemoglobin 7.1 platelets 122 potassium 5.1 BUN 77 creatinine 2.97 AST 1270 ALT 1038 WBC 8.2 hemoglobin 7.5 platelets 111 sodium 135 progression 6 BUN 67 creatinine 3.43 AST 3595 ALT 1512 Limited 2-D echocardiogram: EF 45-50%. Inferior wall hypokinesis. Moderate MR. Moderate pulmonary hypertension with moderate TR. Assessment and plan -Acute on chronic congestive heart exacerbation from systolic/diastolic dysfunction EF 45-50%:, precipitated by A. fib: Better Placed on Bumex 2 mg IV per cardiothoracic team. -pneumonia, short of breath, infiltrate on chest x-ray, increasing white count and procalcitonin: Better IV cefepime-completed -Acute hypoxic respiratory failure from pulmonary edema/pneumonia: Better 93% on room air -Diabetes Mellitus type 2 , uncontrolled with hyperglycemia, Victoza , Actos-discontinue. Levemir 24 units daily at bedtime. 5 units NovoLog with meals. farxiga 5 mg -Paroxysmal atrial fibrillation status post modified [place]-Maze procedure,: With rapid ventricular rate: Now - sinus rhythm amiodarone ,Lopressor. Eliquis held because of GI bleed -Acute GI bleed from the third and fourth portion of duodenum. EGD encountered fresh blood with blood clots. No obvious source noted. Patient is on aspirin. Eliquis held -acute renal failure on chronic kidney disease stage II with renal failure is probably prerenal azotemia, cardiorenal syndrome.: Creatinine peaked at 3.43. Creatinine 1.46 -hyperkalemia secondary to acute renal failure: Corrected Received Lokelma. Renal diet -Acute hepatitis, likely ischemic: Better Follow closely. GI services not available in the hospital. Hold any hepatic offensive medications. Follow LFTs patient as patient started back on amiodarone -Acute COPD exacerbation, in a smoker DuoNeb. Symbicort -Hyperlipidemia Lipitor -Sacral decubitus ulcer: With abscess. Large abscess was encountered. 12 x 10 x 4 cm deep. Cleaned out by Dr. Fiore 05/08/2022. Follow with ID. On IV daptomycin, IV Zosyn -Metabolic alkalosis from diuresis Was on Diamox - coronary artery disease with previous PCI Aspirin, Imdur, Lopressor -Acute postprocedure blood loss anemia as expected from surgery, also hospital- acquired anemia from blood draws Received PRBC -Chronic nicotine dependence - post mitral valve failure, status post CABG, status post PFO closure: C oli [id number] MR -Moderate aortic stenosis -Moderate secondary pulmonary hypertension Continue to follow labs. Cutback Levemir to 20 minutes. Follow CBC. Antibiotics per ID. Discussed with patient. Pending authorization for rehab.
[2022-05-11] MEDS: ONDANSETRON 4 MG/2 ML VIAL IVP PRN (18:44)
[2022-05-11 20:13] LABS: Glucose,Whole Blood 222 mg/dL (70-110)
[2022-05-11] MEDS: SENNOSIDES-DOCUSATE SODIUM 1 EACH TAB PO SCH (20:15)
[2022-05-11] MEDS: INSULIN DETEMIR (LEVEMIR) 100 UNIT/ML SYR SQ SCH (20:15)
[2022-05-11] MEDS: ACETAMINOPHEN TAB 325 MG TAB PO PRN (20:16)
[2022-05-12] MEDS: PIPERACILLIN-TAZOBACTAM 3.375 GM in SODIUM CHLORIDE 0.9% 100 ML IVPB SCH ×4 (00:04→23:16)
[2022-05-12] MEDS: IPRATROPIUM-ALBUTEROL 3 ML NEB INHALATION PRN ×4 (02:50→23:24)
[2022-05-12] MEDS: BENZOCAINE/MENTHOL LOZENG 1 EACH LOZENGE MUCOUS MEM PRN ×4 (06:26→20:29)
[2022-05-12] MEDS: ACETAMINOPHEN TAB 325 MG TAB PO PRN ×3 (06:27→17:39)
[2022-05-12 06:32] LABS: Glucose,Whole Blood 179 mg/dL (70-110)
[2022-05-12] MEDS: INSULIN ASPART (NovoLOG) 100 UNIT/ML VIAL SQ SCH ×7 (06:35→20:21)
[2022-05-12 06:41] LABS: Anisocytosis Slight; Basophils # (A) 0.1 k/uL (0-0.2); Basophils % (A) 1 %; Eosinophils # (A) 0.1 k/uL (0-0.7); Eosinophils % (A) 0 %; HGB 7.3 gm/dL (13.0-17.5); Hypochromasia Marked; Lymphocytes # (A) 0.5 k/uL (1.0-4.8); Lymphocytes % (A) 4 %; MCH 30.4 pg (25.0-35.0); MCHC 31.5 g/dL (31.0-37.0); MCV 96.5 fL (80.0-100.0); Macrocytosis Slight; Mean Platelet Volume 8.6; Monocytes % (A) 7 %; Neutrophils # (A) 11.3 k/uL (1.3-7.7); Neutrophils % (A) 87 %; Platelet Count 211 k/uL (150-450); Poikilocytosis Slight; RBC 2.39 m/uL (4.30-5.90); RDW 18.1 % (11.5-15.5)
--- NOTE | 2022-05-12 06:59 | XR ---
EXAMINATION TYPE: XR chest 1V portable DATE OF EXAM: 05/12/2022 HISTORY: postoperative cardiac surgery COMPARISON: 05/11/2022 TECHNIQUE: Single view of the chest is submitted. FINDINGS: Persistent pulmonary venous congestion with basilar pleural-parenchymal opacities and small effusions . Improved aeration right lower lobe. No evidence for pneumothorax. Post operative changes of CABG. No sizeable pneumothorax. IMPRESSION: 1. Persistent pulmonary venous congestion with basilar pleural-parenchymal opacities and small effus ions. Improved aeration right lower lobe.
[2022-05-12 07:02] LABS: Albumin 2.8 g/dL (3.5-5.0); Calcium 7.8 mg/dL (8.4-10.2); Potassium 4.8 mmol/L (3.5-5.1); Total Bilirubin 0.9 mg/dL (0.2-1.3); Total Protein 5.1 g/dL (6.3-8.2)
--- NOTE | 2022-05-12 07:46 | P.PN ---
Subjective Progress Note Date: 05/12/22 Principal diagnosis: Status post CABG The patient is a 72-year-old gentleman who is status post CABG as well as mitral valve repair with surgery complicated by recurrent pleural effusion. 05/07/2022 The patient was seen this morning. He is overall stable from a perivascular st andpoint of view. He is not on any vasopressors at this point. He does have history of hematuria but that seems to be cleared this morning. Currently he is on aspirin. He does have also history of paroxysmal atrial fibrillation and he was receiving oral anticoagulation which was stopped. May 082021 The patient was seen and evaluated this morning. He remains stable from a cardiovascular standpoint of view. His hemoglobin this morning is 5.9 and he is in process of having one unit of packed RBC to be transfused. He was seen by the urology service and currently antiplatelet beside aspirin and anticoagulation are on hold. May 092021 The patient was seen and evaluated this morning. The hemoglobin this morning is 6.6 and it was 6.8 yesterday. Overall he's stable with a soft blood pressure. He remains asymptomatic. He remains on antiplatelet with aspirin only. May 102021 The patient was seen and evaluated this morning. Hemoglobin this morning is above 7. He seems otherwise stable from a perivascular standpoint of view. He is of oral anticoagulation because of gastrointestinal bleeding and hematuria. 05/11/2022 The patient was seen this morning. He remains a stable. Hemoglobin remains stable as well. The hemoglobin this morning is 7.9. He is not on any anticoagulation and only he is on aspirin as antiplatelet. Otherwise he remains hemodynamically stable. He has been in normal sinus mechanism. We'll continue the current medical regimen. The patient potentially is going to discharge into inpatient rehab May 122021 The patient was seen this morning. He is more short of breath today. On examination he does have bilateral primary the bases and also bilateral lower except his edema. He stated having black stool but the hemoglobin overall seems to be stable. He continues to be on aspirin only and we are holding any anti coagulation. Currently he is on Bumex 2 mg IV daily. The chest x-ray showed pulmonary vascular congestion is a small bilateral pleural effusion. Objective - Vital Signs Vital signs: Vital Signs Temp 98.0 F 05/12/22 04:00 Pulse 76 05/12/22 05:00 Resp 12 05/12/22 05:00 BP 126/58 05/12/22 05:00 Pulse Ox 97 05/12/22 05:00 FiO2 100 04/22/22 16:00 Intake & Output 05/11/22 05/12/22 05/12/22 18:59 06:59 18:59 Intake Total 950 1012 Output Total 1650 565 Balance -700 447 Weight 93.5 kg Intake: IV 200 240 0.9 40 DAPTOmycin 360 mg In 100 Sodium Chloride 0.9% 50 ml @ 100 mls/hr IVPB Q24H [facility] Rx#:[id number] Piperacillin-Tazobactam 3 200 100 .375 gm In Sodium Chloride 0.9% 100 ml @ 25 mls/hr IVPB Q8HR [facility] Rx# :[id number] Oral 750 772 Output: Urine 1650 565 Other: Voiding Method Urinal Urinal # Voids 1 1 # Bowel Movements 1 ABP, PAP, CO, CI - Last Documented Arterial Blood Pressure 137/47 Pulmonary Artery Pressure 67/18 Cardiac Output 5.8 Cardiac Index 2.8 - Constitutional General appearance: Present: no acute distress - Respiratory Respiratory: bilateral: rales - Cardiovascular Rhythm: regular - Labs CBC & Chem 7: 05/12/22 05:43 05/12/22 05:43 Labs: Abnormal Lab Results - Last 24 Hours (Table) 05/11/22 05/11/22 05/11/22 Range/Units 06:46 11:49 16:26 WBC (3.8-10.6) k/uL RBC (4.30-5.90) m/uL Hgb (13.0-17.5) gm/dL Hct (39.0-53.0) % RDW (11.5-15.5) % Neutrophils # (1.3-7.7) k/uL Lymphocytes # (1.0-4.8) k/uL Sodium 136 L (137-145) mmol/L BUN 35 H (9-20) mg/dL Creatinine 1.43 H (0.66-1.25) mg/dL Glucose (74-99) mg/dL POC Glucose (mg/dL) 173 H 168 H (70-110) mg/dL Calcium 8.0 L (8.4-10.2) mg/dL AST 66 H (17-59) U/L ALT 73 H (4-49) U/L Total Protein 5.3 L (6.3-8.2) g/dL Albumin 2.9 L (3.5-5.0) g/dL 05/11/22 05/12/22 05/12/22 Range/Units 20:12 05:43 05:43 WBC 13.0 H (3.8-10.6) k/uL RBC 2.39 L (4.30-5.90) m/uL Hgb 7.3 L (13.0-17.5) gm/dL Hct 23.0 L (39.0-53.0) % RDW 18.1 H (11.5-15.5) % Neutrophils # 11.3 H (1.3-7.7) k/uL Lymphocytes # 0.5 L (1.0-4.8) k/uL Sodium 135 L (137-145) mmol/L BUN 37 H (9-20) mg/dL Creatinine (0.66-1.25) mg/dL Glucose 131 H (74-99) mg/dL POC Glucose (mg/dL) 222 H (70-110) mg/dL Calcium 7.8 L (8.4-10.2) mg/dL AST 61 H (17-59) U/L ALT 64 H (4-49) U/L Total Protein 5.1 L (6.3-8.2) g/dL Albumin 2.8 L (3.5-5.0) g/dL 05/12/22 Range/Units 06:31 WBC (3.8-10.6) k/uL RBC (4.30-5.90) m/uL Hgb (13.0-17.5) gm/dL Hct (39.0-53.0) % RDW (11.5-15.5) % Neutrophils # (1.3-7.7) k/uL Lymphocytes # (1.0-4.8) k/uL Sodium (137-145) mmol/L BUN (9-20) mg/dL Creatinine (0.66-1.25) mg/dL Glucose (74-99) mg/dL POC Glucose (mg/dL) 179 H (70-110) mg/dL Calcium (8.4-10.2) mg/dL AST (17-59) U/L ALT (4-49) U/L Total Protein (6.3-8.2) g/dL Albumin (3.5-5.0) g/dL Microbiology - Last 24 Hours (Table) 04/30/22 16:45 Fungal Culture - Preliminary Pleural Fluid Assessment and Plan Assessment: Assessment #1 status post CABG and mitral valve repair #2 paroxysmal atrial fibrillation #3 recurrent pleural effusion #4 hematuria #5 anemia Plan Suggest increase the dose of Bumex Continue holding any anticoagulation Continue aspirin only Continue monitor the kidney function and electrolytes Follow-up with the patient
[2022-05-12] MEDS: IPRATROPIUM-ALBUTEROL 3 ML NEB INHALATION SCH ×4 (08:46→19:55)
[2022-05-12] MEDS: SYMBICORT 160-4.5 MCG INHALER INHALATION SCH ×2 (08:46→20:11)
[2022-05-12] MEDS: NON FORMULARY DRUG SQ SCH (09:17)
[2022-05-12] MEDS: LIDOCAINE 5% PATCH TOPICAL SCH (09:17)
[2022-05-12] MEDS: BUMETANIDE 0.25 MG/ML 10 ML VIAL IV SCH ×2 (09:18→20:20)
[2022-05-12] MEDS: PANTOPRAZOLE 40 MG/10 ML VIAL IVP SCH ×2 (09:18→20:19)
[2022-05-12] MEDS: TAMSULOSIN 0.4 MG CAP.ER.24H PO SCH (09:20)
[2022-05-12] MEDS: ASCORBIC ACID 500 MG TAB PO SCH (09:20)
[2022-05-12] MEDS: ASPIRIN 325 MG TAB PO SCH (09:20)
[2022-05-12] MEDS: guaiFENesin-DM 600/30MG 1 EACH TAB.ER.12H PO SCH ×2 (09:21→20:18)
[2022-05-12] MEDS: POTASSIUM CHLORIDE ER 10 MEQ TAB.ER.PRT PO SCH (09:22)
[2022-05-12] MEDS: DAPAGLIFLOZIN PROPANEDIOL 5 MG TABLET PO SCH (09:22)
[2022-05-12] MEDS: METOPROLOL TARTRATE 25 MG TAB PO SCH ×2 (09:22→20:19)
--- NOTE | 2022-05-12 10:23 | P.PN ---
Subjective Progress Note Date: 05/12/22 Principal diagnosis: Severe mitral valve regurgitation, coronary artery disease, paroxysmal atrial fibrillation, patent foramen ovale, tricuspid regurgitation, chronic systolic congestive heart failure. Past medical history significant for hypertension, hyperlipidemia, coronary artery disease with history of previous PCI, non-ST elevated myocardial infarction in November 2021, ischemic cardiomyopathy with EF 40- 45%, right internal carotid stenosis 50-79%, renal insufficiency, anemia with history of GI bleed in November 2021 S/P transfusion PRBCs, diabetes mellitus type 2, osteoarthritis, severe COPD, chronic ongoing nicotine dependence, remote history of pneumonia, chronic low back pain and hearing disorder. Nasal swab positive for MSSA preoperative POD #23 Mitral valve repair with 28 mm physio-2 ring, CABG 3 with saphenous vein grafts to first diagonal, obtuse marginal, posterior descending coronary arteries, closure of PFO, endovascular vein harvest, modified Castanon maze procedure with full left-sided lesion set and ligation of the left atrial appendage, SCOTT by anesthesia. Protamine reaction intraoperative Postoperative acute blood loss anemia, expected given his history of anemia, hemodilution and cardiopulmonary bypass Acute on chronic kidney failure, likely from hypotension from intraoperative protamine reaction Elevated transaminases, likely from hypotension from intraoperative protamine reaction Left pleural effusion, status post left-sided thoracentesis with removal of [address] Aguilar on 04/30/22 and again on 05/04/22 for 550 mL fluid Leukocytosis, afebrile, CRP and pro-calcitonin trending down, sputum culture negative, no pneumonia, no UTI, blood culture preliminary negative, likely due to sacral stage II ulcer The patient was seen and examined today 05/12/2022 at his bedside in the intensive care unit. He is currently sitting up to the bedside chair, is awake, alert, oriented 3 and is in no acute apparent distress. He continues to complain of some episodes of shortness of breath with activity, denies any surgical type pain at this time although was complaining of some pain to his sacral/coccyx area. He reports he continues to walk in the intensive care unit hallway with standby assistance from nursing and therapy staff. Tolerating well. Oxygen saturations are 99% on 3 L nasal cannula and he is achieving 1250 mL on his incentive spirometry with encouragement. Bedside telemetry showing normal sinus rhythm heart rate 72 BPM. Continues to have adequate urine output with 465 mL output the last 8 hours. Chest x-ray was reviewed. Laboratory results this morning show a WBC count of 13.0, hemoglobin 7.3, hematocrit 23.0, platelets 211, sodium 135, potassium 4.8, chloride 105, CO2 25, BUN 37, creatinine 1.24, glucose 131, calcium 7.8, AST 61 and ALT 64. He has been afebrile the last 24 hours. He continues on daptomycin and Zosyn for antibiotic coverage managed by infectious disease. Objective - Vital Signs Vital signs: Vital Signs Temp 98.0 F 05/12/22 04:00 Pulse 75 05/12/22 08:59 Resp 28 H 05/12/22 07:00 BP 135/54 05/12/22 07:00 Pulse Ox 99 05/12/22 07:00 FiO2 100 04/22/22 16:00 Intake & Output 05/11/22 05/12/22 05/12/22 18:59 06:59 18:59 Intake Total 950 1012 Output Total 1650 565 Balance -700 447 Weight 93.5 kg Intake: IV 200 240 0.9 40 DAPTOmycin 360 mg In 100 Sodium Chloride 0.9% 50 ml @ 100 mls/hr IVPB Q24H ZULMA Rx#:[id number] Piperacillin-Tazobactam 3 200 100 .375 gm In Sodium Chloride 0.9% 100 ml @ 25 mls/hr IVPB Q8HR ZULMA Rx# :[id number] Oral 750 772 Output: Urine 1650 565 Other: Voiding Method Urinal Urinal # Voids 1 0 0 # Bowel Movements 1 ABP, PAP, CO, CI - Last Documented Arterial Blood Pressure 137/47 Pulmonary Artery Pressure 67/18 Cardiac Output 5.8 Cardiac Index 2.8 - Exam CONSTITUTIONAL: Sitting up to the bedside chair in the intensive care unit, appears comfortable, cooperative, no apparent acute distress. HEENT: Neck is supple, no JVD, no lymphadenopathy. RESPIRATORY: Lungs sounds essentially clear throughout, diminished to his bilateral bases with few scattered crackles. Respirations are symmetrical and nonlabored. Currently on 3 L nasal cannula oxygen with oxygen saturations 99%. Able to achieve 1250 mL on his incentive spirometry. Strong cough. CARDIOVASCULAR: Regular rhythm and rate. S1 and S2 present, negative for S3, or gallop, soft systolic murmur heard best to his left sternal border. Sternum is stable. Palpable peripheral pulses bilaterally, +1 edema to his bilateral lower extremities. No calf pain or tenderness noted. Heart hugger in place with patient demonstrating appropriate use. Knee-high RAFAEL hose and sequential compression devices in place to his bilateral lower extremities. Bedside telemetry showing normal sinus rhythm with heart rate 72 BPM. GASTROINTESTINAL: Abdomen soft, nontender, nondistended. Active bowel sounds present 4 quadrants. Tolerating diet. Passing flatus. No guarding or rigidity. Small tar-colored Bowel movement this morning 05/12/2022. GENITOURINARY: Continues to void. 465 mL of urine output in the last 8 hours. INTEGUMENTARY: Skin is warm and dry with no evidence of clubbing or cyanosis. Midline sternal incision clean dry and well approximated, covered with dry intact dressing. Bilateral lower extremity EVH sites well approximated without redness or drainage. Stage II to III decubitus ulcer present to his buttocks covered with optifoam. MUSKULOSKELETAL: Able to move all extremities, strength equal bilaterally, generalized weakness. PSYCHIATRIC: Alert and oriented to person place and time, appropriate affect, intact judgment and insight. - Allied health notes Allied health notes reviewed: nursing - Labs CBC & Chem 7: 05/12/22 05:43 05/12/22 05:43 Labs: Abnormal Lab Results - Last 24 Hours (Table) 05/11/22 05/11/22 05/11/22 Range/Units 11:49 16:26 20:12 WBC (3.8-10.6) k/uL RBC (4.30-5.90) m/uL Hgb (13.0-17.5) gm/dL Hct (39.0-53.0) % RDW (11.5-15.5) % Neutrophils # (1.3-7.7) k/uL Lymphocytes # (1.0-4.8) k/uL Sodium (137-145) mmol/L BUN (9-20) mg/dL Glucose (74-99) mg/dL POC Glucose (mg/dL) 173 H 168 H 222 H (70-110) mg/dL Calcium (8.4-10.2) mg/dL AST (17-59) U/L ALT (4-49) U/L Total Protein (6.3-8.2) g/dL Albumin (3.5-5.0) g/dL 05/12/22 05/12/22 05/12/22 Range/Units 05:43 05:43 06:31 WBC 13.0 H (3.8-10.6) k/uL RBC 2.39 L (4.30-5.90) m/uL Hgb 7.3 L (13.0-17.5) gm/dL Hct 23.0 L (39.0-53.0) % RDW 18.1 H (11.5-15.5) % Neutrophils # 11.3 H (1.3-7.7) k/uL Lymphocytes # 0.5 L (1.0-4.8) k/uL Sodium 135 L (137-145) mmol/L BUN 37 H (9-20) mg/dL Glucose 131 H (74-99) mg/dL POC Glucose (mg/dL) 179 H (70-110) mg/dL Calcium 7.8 L (8.4-10.2) mg/dL AST 61 H (17-59) U/L ALT 64 H (4-49) U/L Total Protein 5.1 L (6.3-8.2) g/dL Albumin 2.8 L (3.5-5.0) g/dL Microbiology - Last 24 Hours (Table) 04/30/22 16:45 Fungal Culture - Preliminary Pleural Fluid - Imaging and Cardiology Chest x-ray: report reviewed, image reviewed Assessment and Plan Assessment: 1. Severe mitral valve regurgitation, status post mitral valve repair 2. Coronary artery disease, previous PCI, previous non-STEMI, status post CABG 3 3. History of paroxysmal atrial fibrillation, previous cardioversion, on [facility] outpatient for anticoagulation, status post modified Castanon maze and ligation of left atrial appendage, currently in normal sinus rhythm 4. Patent foramen ovale, status post closure 5. Tricuspid regurgitation 6. Chronic diastolic congestive heart failure, ischemic cardiomyopathy with EF 40-45% 7. History of hypertension 8. History hyperlipidemia, treated, cholesterol 150, LDL 72 9. Right internal carotid stenosis 50-79% 10. Anemia with history of GI bleed in November 2021 S/P transfusion PRBCs 11. Acute on chronic renal failure, baseline creatinine 1.2-1.6 12. Diabetes mellitus type 2, preoperative hemoglobin A1c 5.6% 13. Osteoarthritis 14. Severe COPD, preoperative FEV1 41% of predicted 15. Chronic ongoing nicotine dependence 16. Remote history of pneumonia 17. Chronic low back pain 18. Hearing disorder 19. Nasal swab positive for MSSA preoperative 20. Postoperative acute blood loss anemia, expected 21. Elevated transaminases, continue to trend downward 22. Protamine reaction intraoperative 23. Medical debility, generalized weakness 24. Stage II-III decubitus to his buttocks, status post surgical debridement 25. Small left-sided pleural effusion, status post left-sided thoracentesis on 04/30/2022 26. Urinary retention possibly secondary to constipation Plan: 1. Continue full dose aspirin, and beta siomara. We will increase his metoprolol tartrate as tolerated. 2. Encourage incentive spirometry 10 times every hour while awake. Bronchodilators per pulmonology/critical care management. 3. Wound care Medihoney ordered for treatment for the patient's decubitus, managed by Dr. Chen from infectious disease. Antibiotic management per infectious disease recommendations currently on daptomycin and Zosyn. 4. Will monitor daily labs and chest x-rays. Electrolyte replacement per protocol. Avoid hepatotoxic and nephrotoxic medications. He received 1 unit of packed red blood cells 05/09/2022 for a hemoglobin of 6.6, today's hemoglobin is 7.3. 5. Increase activity, ambulate as tolerated. PT/OT/cardiac rehab following. Needs much encouragement with ambulation. 6. Insulin management per primary care service. Patient is a diabetic with a preoperative hemoglobin A1c of 5.6% on multiple oral medications, needs tight blood sugar control. 7. GI/DVT prophylaxis. 8. Continue Flomax and continue to record strict accurate I's and O's. 9. Pain control with current medication regimen. 10. Daily weights. 11. Shower daily. 12. Importance of risk modification including smoking cessation counseling and education provided to patient and family. 13. Discharged to inpatient rehab within the next 24-48 hours, waiting on insurance authorization. 14. Bumex 2 mg IV twice a day by cardiology. 15. More recommendations to follow based on patient's clinical course. Time with Patient: Greater than 30
--- NOTE | 2022-05-12 10:56 | P.PN ---
Progress Note - Text Progress Note Date: 05/12/22 Patient remains relatively unchanged. His he will was 7.3. He'll continue local wound care with his decubitus ulcer.
[2022-05-12 11:25] LABS: Glucose,Whole Blood 204 mg/dL (70-110)
--- NOTE | 2022-05-12 12:02 | P.PN ---
Subjective Progress Note Date: 05/12/22 Principal diagnosis: Status post CABG. This is a pleasant 72-year-old male patient with a known history of osteoarthritis was multiple orthopedic surgeries, diabetes mellitus, hyp erlipidemia, chronic tobacco dependence, paroxysmal atrial fibrillation. He was recently found to have coronary artery disease with a total occlusion of the RCA with collateral circulation, obtuse marginal with 99% stenosis and mild LAD disease. His ejection fraction is 45%. He was also found to have severe mitral regurgitation, moderate central tricuspid regurgitation as well as evidence of a PFO with [id number]-vc-[id number] shunt. He was recommended coronary artery bypass grafting and valvular repair. He was brought in to the hospital yesterday 04/20/2022 for an elective procedure. He did undergo mitral valve repair, coronary bypass grafting 3 with an SVG to the first diagonal, obtuse marginal and posterior descending coronary arteries, closure of a PFO, modified Castanon-Maze procedure and litigation of the left atrial appendage. He was successfully extubated within the 6 hour protocol. He is seen today in consultation in the intensive care unit. He is ready sitting up in a chair. Awake and alert in no acute distress. He is maintaining O2 saturation in the 90s on 3 L/m per nasal cannula. He has insulin drip at 5 units per hour. Lactated Ringer's at 20 miles per hour. He initially was on epinephrine drip that has been discontinued. He did receive 2 units of packed red blood cells, 2 units of fresh frozen plasma and 1 unit of platelets. White count 8.9. Hemoglobin 7.7. Platelets 139,000. Sodium 142. Potassium 5.5. Chloride 111. Bicarb 23. BUN 32. Creatinine 1.73. Glucose 125. AST 1:30. ALT 37. Magnesium 3.6. Mean arterial blood pressure in the 70s. PA pressures 50/18. CVP 12. Cardiac output 6.5. Cardiac index 3.1. He is on bronchodilators. Working well with the incentive spirometer. Chest x-ray reveals scattered opacities bilaterally. No evidence of pleural effusion, focal consolidation or pneumothorax. Mediastinal 2, left pleural chest tube in place. He is continued on oral amiodarone. Heparin for DVT prophylaxis. The patient is seen today in 04/21/2022 in follow-up in the intensive care unit. He is currently sitting up in a recliner at the bedside. Maintaining O2 saturations on 5 L/m per nasal cannula. He did require BiPAP support last evening and was placed on 14/10 and 100% FiO2 eventually decreased to 40%. He is currently on a Lasix drip at 5 mg per hour. Dopamine drip at 2 mcg/kg/m. Cardiac output 4.6. Cardiac index 2.2. He is dual pacing. He has normal saline at 20 ML's per hour. He is unemployed about 750 MLS on the incentive spirometer. His x-ray continues to show cardiomegaly with ongoing mild pulmonary vascular congestion. Increasing patchy bibasilar opacities/atelectasis. Right IJ Anderson-Varghese catheter remains in place. He is sternal and left sided chest tubes remain in place. No pneumothorax. White count 9.6. Hemoglobin 7.3. Platelets 144. Sodium 132. Potassium 5.4. Bicarb 21. BUN 41. Creatinine 2.53. Glucose 175. AST 1309. ALT 547. Albumin 3.6. The patient does have a cyst the year smoking history. He remains on DuoNeb inhalations 4 times a day and when necessary. Heparin for DVT prophylaxis. Progress note dated 04/22/2022. 72-year-old male, who is currently seen in room 267. He's postop day #3. The patient's currently on 8 L high flow oxygen. He is getting dopamine at 2 mcg/kg/m, a Lasix drip at 10 mg an hour, insulin at 1.5 units an hour, and saline at 20 mL an hour. Labs today include a white count of 8.5, hemoglobin 7.4, hematocrit 23.3, and a platelet count of 135,000. Sodium 131, potassium 5.8, chlorides 102, CO2 23, BUN 51, and creatinine 3.1. AST was 2217. ALT is 1006. Chest x-ray shows cardiomegaly, and pulmonary vascular congestion. Reevaluated today on 05/05/22, remains in the ICU, remains marginal at best. Today the patient is feeling a bit better, and he would likely feel even better once he gets another unit of packed RBCs continues to have low hemoglobin. Chest x-ray showed minimal atelectasis, no clear-cut evidence of congestive he art failure. Patient is sitting at a bedside chair, he is on 2 L nasal cannula, able to achieve about 1000 mL via incentive spirometry. No pain, no discomfort, continues to have a sacral decubitus ulcer stage II3. Hemoglobin today is 6.7, was 6.1 yesterday, and he will receive another unit of packed RBCs today. Reevaluated today on 05/06/22, remains in the ICU, patient is doing well, requiring another unit of packed RBCs today, patient is having hematuria, and that's going to be addressed by urology which was consulted. Pulmonary-arboleda is about the same, remains on 2 L nasal cannula, chest x-ray is showing evidence of interstitial edema and small tiny left-sided and right-sided pleural effusions, not large enough to consider thoracentesis at this point yet. He remained generally weak and short of breath with any activity. Hemoglobin today is 6.2, WBC count is 19.7, patient was placed on daptomycin and Eraxis empirically by infectious disease on the case. All cultures have been nondiagnostic so far including blood pleural effusion cultures and sputum cultures. Patient does hav e a sacral decubitus ulcer that may be causing his leukocytosis Progress note dated 05/07/2022. 72-year-old male status post four-vessel bypass grafting, mitral valve repair, and Castanon-Maze procedure. The patient is currently on 2 L of oxygen. Not receiving any IV fluids. He, he's had problems with anemia, he is receiving his sixth unit of blood. Surgery was consulted. White count 23.1, hemoglobin 6.2, hematocrit 20.5, and platelet count 334,000. Sodium 136, potassium 4.2, chlorides 100, due to 27, anion gap 9, BUN 77, and creatinine 1.48. Chest x-ray shows cardiomegaly, and small right pleural effusion. Progress note dated 05/08/2022. 72-year-old male, status post four-vessel bypass grafting, mitral valve repair, and Castanon-Maze procedure. The patient is seen again in room 267, in the intensive care unit. He's on 2 L of oxygen. He is on no IV fluids. Because of ongoing anemia, the patient is receiving his 7 unit of packed red blood cells. He is scheduled for an EGD today. White count 14.9, hemoglobin 5.9, hematocrit 18.8, and platelet count 257,000. Sodium 137, potassium 3.9, chlorides 105, CO2 29, BUN 68, and creatinine 1.48. Chest x-ray show some cardiomegaly, and some mild pulmonary vascular congestion. Chest x-ray is largely unchanged. Progress note dated 05/09/2022. A 72-year-old male, again seen in room 267. He status post four-vessel bypass grafting, and mitral valve repair, along with a Castanon-Maze procedure. The patient has received a total of 7 units of packed red blood cells since being here in the ICU. He is currently on 2 L of oxygen. Not receiving any IV fluids. He did have an EGD yesterday, which did not reveal any active bleeding although there was blood in the gastrointestinal tract. Clinically, he is feeling a bit better today. White count 14.7, hemoglobin 6.6, hematocrit 20.7, platelet count 241,000. Sodium 137, potassium 4.1, chlorides 107, CO2 27, BUN 51, creatinine 1.27. Chest x-ray shows cardiomegaly with small right-sided effusion. Progress note dated 05/10/2022. 72-year-old male, again seen in room 267. He's on 2 L of oxygen. No IV fluids. The patient did receive another unit of packed red blood cells, making his total of 8 units. The patient sitting in a chair next to his bed. He was complaining about his blood sugars being out of control, and the fact that he was being fed to many carbohydrates. White count 12.6, hemoglobin 7.6, hematocrit 23.9, and platelet count 219,000. Sodium 139, potassium 4.2, chlorides 107, CO2 26, BUN 40, creatinine 1.33. Chest x-ray shows cardiomegaly, and some basilar atelectatic changes. Progress note dated 05/11/2022. 72-year-old male, again seen in room 267. He continues on room air, without any IV fluids. Hemoglobin this morning was 7.6. He's received a total of 8 units of packed red blood cells. Clinically, he is doing well. White count 13.1, hemoglobin 7.6, hematocrit 24.4, and platelet count 229,000. Sodium 136, potassium 4.7, chlorides 106, CO2 23, BUN 35, and creatinine 1.43. Chest x-ray shows cardiomegaly, bibasilar atelectasis, and very small pleural effusions bilaterally. Progress note dated 05/12/2022. 72-year-old male seen in room 267. He's currently on 2 L of oxygen. No IV fluids. He became more short of breath, required oxygen therapy. Previously he been on room air. He's received a total of 8 units of PRBCs since being here in the hospital. White count 13, hemoglobin 7.3, hematocrit 23, platelet count 211,000. Sodium 135, potassium 4.8, chlorides 105, CO2 25, BUN 27, and creatinine 1.24. Patient's chest x-ray shows mild fluid overload, with atelectasis at the bases, and small pleural effusions. Objective - Vital Signs Vital signs: Vital Signs Temp 98.3 F 05/12/22 08:00 Pulse 66 05/12/22 11:54 Resp 31 H 05/12/22 10:00 BP 117/49 05/12/22 10:00 Pulse Ox 93 L 05/12/22 10:00 FiO2 100 04/22/22 16:00 Intake & Output 05/11/22 05/12/22 05/12/22 18:59 06:59 18:59 Intake Total 950 1012 100 Output Total 1650 565 450 Balance -700 447 -350 Weight 93.5 kg Intake: IV 200 240 100 0.9 40 DAPTOmycin 360 mg In 100 Sodium Chloride 0.9% 50 ml @ 100 mls/hr IVPB Q24H ZULMA Rx#:[id number] Piperacillin-Tazobactam 3 200 100 100 .375 gm In Sodium Chloride 0.9% 100 ml @ 25 mls/hr IVPB Q8HR ZULMA Rx# :[id number] Oral 750 772 Output: Urine 1650 565 450 Other: Voiding Method Urinal Urinal Urinal # Voids 1 0 1 # Bowel Movements 1 ABP, PAP, CO, CI - Last Documented Arterial Blood Pressure 137/47 Pulmonary Artery Pressure 67/18 Cardiac Output 5.8 Cardiac Index 2.8 - Exam No acute distress, oriented 3. No audible wheezing, use of accessory muscles, or conversational dyspnea. The patient looks pale. The patient's on 2 L nasal cannula. HEENT examination is grossly unremarkable. Neck supple. Full range of motion. No adenopathy thyromegaly or neck vein distention. Cardiovascular examination reveals regular rhythm rate. S1-S2 normal. No S3 or S4. No discernible murmur noted. Heart rate is 66 bpm. Heart sounds are distant. Lungs reveal scattered bilateral rhonchi. Crackles at the bases. No wheezes. Breath sounds are equal bilaterally. Saturations are 93 %. Abdomen soft bowel sounds are heard. No masses or tenderness. Extremities are intact. No cyanosis clubbing or edema. Skin is without rash or lesion. Neurologic examination is brief but nonfocal. - Labs CBC & Chem 7: 05/12/22 05:43 05/12/22 05:43 Labs: Abnormal Lab Results - Last 24 Hours (Table) 05/11/22 05/11/22 05/12/22 Range/Units 16:26 20:12 05:43 WBC 13.0 H (3.8-10.6) k/uL RBC 2.39 L (4.30-5.90) m/uL Hgb 7.3 L (13.0-17.5) gm/dL Hct 23.0 L (39.0-53.0) % RDW 18.1 H (11.5-15.5) % Neutrophils # 11.3 H (1.3-7.7) k/uL Lymphocytes # 0.5 L (1.0-4.8) k/uL Sodium (137-145) mmol/L BUN (9-20) mg/dL Glucose (74-99) mg/dL POC Glucose (mg/dL) 168 H 222 H (70-110) mg/dL Calcium (8.4-10.2) mg/dL AST (17-59) U/L ALT (4-49) U/L Total Protein (6.3-8.2) g/dL Albumin (3.5-5.0) g/dL 05/12/22 05/12/22 05/12/22 Range/Units 05:43 06:31 11:24 WBC (3.8-10.6) k/uL RBC (4.30-5.90) m/uL Hgb (13.0-17.5) gm/dL Hct (39.0-53.0) % RDW (11.5-15.5) % Neutrophils # (1.3-7.7) k/uL Lymphocytes # (1.0-4.8) k/uL Sodium 135 L (137-145) mmol/L BUN 37 H (9-20) mg/dL Glucose 131 H (74-99) mg/dL POC Glucose (mg/dL) 179 H 204 H (70-110) mg/dL Calcium 7.8 L (8.4-10.2) mg/dL AST 61 H (17-59) U/L ALT 64 H (4-49) U/L Total Protein 5.1 L (6.3-8.2) g/dL Albumin 2.8 L (3.5-5.0) g/dL Microbiology - Last 24 Hours (Table) 04/30/22 16:45 Fungal Culture - Preliminary Pleural Fluid Assessment and Plan Assessment: Coronary artery disease with valvular heart disease. Status post mitral valve repair, coronary bypass grafting 3 with an SVG to the first diagonal, obtuse marginal and posterior descending coronary arteries, closure of a PFO, modified Castanon-Maze procedure and litigation of the left atrial appendage. Postoperative day #23. Acute hypoxemic respiratory failure secondary to above. Currently on 2 L nasal cannula. Paroxysmal atrial fibrillation. Chronic and ongoing tobacco dependence. Chronic obstructive pulmonary disease, FEV1 value of 52% of predicted. Acute on chronic anemia, status post 8 units packed red blood cells. Osteoarthritis. Diabetes mellitus. Hyperlipidemia. Plan: Plan dated 04/22/2022. The patient will absolutely not wearing the BiPAP device. The patient is on dopamine, Lasix drip, and insulin drip. Today is postop day #3. Labs, x-rays, and medications are reviewed. The patient's overall prognosis remains guarded. We will continue to follow and make recommendations along the way. The patient continues on DVT and GI prophylaxis. He continues on breathing treatments. Prognosis is guarded. Plan dated 05/07/2022. The patient is receiving his sixth unit of blood. Surgery has been consulted for his ongoing anemia, and suspected GI bleed. We will continue to follow this patient and make recommendations along the way. Labs, x-rays, and medications are reviewed. Clinically, the patient looks reasonable, but pale. He's been weaned down to 2 L of oxygen. Prognosis is guarded. Plan dated 05/08/2022. The patient is currently receiving his seventh unit of blood. He is scheduled for an EGD today. He's on 2 L of oxygen. No IV fluids. The patient's overall prognosis remains very guarded. We will continue to follow make recommendations along the way. Labs, x-rays, and medications are all reviewed. Plan dated 05/09/2022. The patient appears to be doing a bit better today. He's received a total of 7 units of PRBCs. He had an EGD yesterday. His sacral decubitus ulcer was also debrided yesterday. Labs, x-rays, and medications are reviewed. We will continue to follow. Prognosis is guarded. He still a bit anemic today, but no additional decision has been made about additional blood at this time. We will continue to follow make recommendations along the way. Plan dated 05/10/2022. The patient appears to be doing about the same to slightly better. He did receive 1 additional unit of blood. That makes a total of 8 units of packed red blood cells. The patient's on 2 L of oxygen. No IV fluids. His hemoglobin this morning was 7.6. We will continue to follow. His blood glucose today was better at 108. Labs, x-rays, and medications are reviewed. Prognosis is guarded. Plan dated 05/11/2022. The patient is currently on room air. He appears relatively stable. Today's morning hemoglobin is 7.6. No additional blood transfusions are planned. We will continue to follow. Prognosis is guarded. Labs, x-rays, and medications are all reviewed. Plan dated 05/12/2022. The patient was on room air. Yesterday/last night, he became more short of breath and was placed on 2 L. No IV fluids. Labs, x-rays, and medications are reviewed. Prognosis is certainly guarded. He has received a total of 8 units of blood since being here in the hospital. Follow make recommendations along the way. Prognosis is certainly guarded. Time with Patient: Less than 30
--- NOTE | 2022-05-12 14:58 | P.PN ---
Progress Note - Text Progress Note Date: 05/12/22 Patient is a pleasant 72-year-old male came in the for elective mitral valve repair, CABG x 3 vessel, maze procedure, PFO closure. Patient is extubated sitting in the chair patient still has a Michael-Varghese catheter, CVP of around 12, cardiac index 3.1 patient creatinine went up to 1.70 resulting elevated potassium of 5.5 patient is off pressor support, off nitro drip patient still has 2 mediastinal and one left-sided chest tube. 04/21/2022 Patient is evaluated in ICU today, sitting up in chair. He is postoperative day #2 for elective mitral valve repair, hematocrit bypass grafting maze procedure and PFO closure. He is on BiPAP with fio2 of 40% Continues with mediastinal/left pleural chest tubes. Continue with indwelling catheter. Received dose of IV albumin yesterday afternoon. Chest xray today showing ongoing mild pulmonary vascular congestion, increasing patchy bibasilar opacities, atelectasis vs. pulmonary edema. Currently on lasix gtt at 10mls/hr, continues on dopamine gtt at 3.68 mls/hr. Continues on insulin gtt and blood glucose remains in the 140 to 130s. Labs today showing sodium 132, potassium 6.1 improved to 5.4, BUN 41, creatinine 2.53, elevated liver enzymes. Hgb 7.3. 04/22/2022 Patient continues to be monitored closely in intensive care unit, he is postoperative day #3 for elective mitral valve repair, maze procedure, PFO closure. Managed by primary team. He had limited echocardiogram completed showing EF 45 to 50%, mild to moderate MR, moderate pulmonary hypertension with moderate TR. Chest xray today shows slight improvement in pulmonary vascular congestion. Maintained on lasix gtt at 10mls/hr, dopamine gtt, Continues with 2 mediastinal chest tubes. Continues with indwelling catheter. Continues with right IJ swan/cordis, right radial arterial line. He has been weaned off BiPAP currently on high flow cannula at 15L. He has been tolerating some diet. Continues on insulin gtt which will continue until his diet stabilizes. Current glucose in the 140s. Creatinine today 3.14. April 23: [facility]. In a recliner. Tired. Little oral intake. Nasal cannula. Drips include IV dopamine and Lasix. Some shortness of breath. Mooney catheter. 04/24/2022: ICU. Up. 4 L nasal cannula. Did eat better. Edema present. On the Lasix drip 5 mg an hour. Some improvement in creatinine. 04/25/2022: ICU. Up in a recliner. Eating better. at the bedside. Edema present. Off Lasix drip. Feeling better. Creatinine coming down. LFTs improving. Home dose of Victoza was started 04/26/2022: ICU. Up in a recliner. 4 L nasal cannula. Eating about 50%. Accu-Cheks noted. 04/27/2022: ICU: Patient went into atrial fibrillation overnight. Put on oral amiodarone and Lopressor per CTS.. Some worsening of shortness of breath. Placed on IV Lasix. Eating some. Up in a recliner. 04/28/2022: ICU. Patient received Lopressor today for the A. fib. Patient went down into sinus rhythm. Blood pressure also dropped her was 70 systolic. Oxygen increased to 4 L. Short of breath. Patient did walk 10-12 steps up to the door. Eating fair. Lower extremity edema edema present. Up in a chair. Tired. 04/29/2022: ICU. Short of breath. 3 L nasal cannula. Eating fair. Edema pre sent. Getting Bumex. Getting IV albumin and IV calcium. Using incentive spirometry. Up in a chair. Discussed with at the bedside. Increasing white count, infiltrated urine chest x-ray suggestive of pneumonia. Started on IV cefepime 04/30/2022: ICU. Remains short of breath. 3 L nasal cannula. Started on IV cefepime yesterday.. Oral intake fair. Edema present. Remains on Bumex. Fo sher catheter. Discussed with patient and at the bedside. Discussed with Dr. Cortez from cardiothoracic surgery. 05/01/2022: ICU. Zaroxolyn was added. Good diuresis. Breathing better. On IV cefepime. Left paracentesis is done. 850 mL removed. Oral intake fair. Breathing a bit better. Telemetry shows sinus rhythm. 2 L nasal cannula. at the bedside. Will DC Actos. Even though smaller dose. Given CHF renal failure. Increase Lantus to 12 units. 05/02/2022: ICU. Over 3 is a negative fluid balance. Last 24 hours. Some improvement in breathing. Oral intake fair. Remains in atrial fibrillation controlled. 2 L nasal cannula. Add Diamox. 4 metabolic alkalosis 05/03/2022: ICU. This morning patient became short of breath. Dr. Chen from [place] consulted for sacral decub. Remains on IV cefepime. Oral intake fair. Had a BM. On IV Bumex. I discussed with Dr. Aguilar from pulmonary. Patient is known to him. Advanced COPD. His right lung changes are chronic. Has had previous CAT scans. He may have had a located effusion. 05/04/2022: ICU. Breathing a bit better. Hemoglobin dropped to 6.1. Awaiting transfusion. Tolerating diet. On IV cefepime. Patient started on IV eraxis by Dr. Prescott from [place]. 05 May 2022: ICU. Patient received a unit of blood yesterday evening. Getting another unit of blood today. Breathing better. Remains on IV Bumex. IV cefepime discontinued. Remains on IV Eraxis. Oral intake fair. Up in a chair. at the bedside. Increase Levemir to 20 units at night. 05/06/2022: ICU. Patient received a 3rd unit blood this morning. Breathing better. Had some blood in his urine. On 2 L is cannula. Sitting up in a chair, eating better. Some cough with brownish sputum. 05/07/2022: ICU. Up in a chair. Eating better. On 2 L nasal cannula. On IV daptomycin. IV Zosyn. Has had dark stools but is on iron. We'll hold off oral iron to see if stool color lightens. Add NovoLog 5 units scheduled with meals. Hemoglobin dropped again to 6.2. Received 1 unit of blood today. 05/08/2022: ICU. Seen by me this morning. Hemoglobin further dropped again. 5.9. Data patient underwent EGD by Dr. Fiore. Fresh blood seen in the third and fourth portion of duodenum of blood clots noted. No obvious source noted. Patient is on PPI. Also sacral decub ulcer abscess also drained. Patient received a unit of blood this morning. Discussed with Neema from cardiothoracic team. Patient does not like hospital food. has been free eating food from outside. Including [employer] fish [employer] etc. Difficult to control Accu- Cheks. Concerned the patient may become hypoglycemic if a more aggressive. farxiga is being added. 05/09/2022: ICU. No further drop in hemoglobin after blood transfusion yesterday. Patient is off eliquis. Had a dark stool today. Oral intake fair. On 2 L nasal cannula. On IV daptomycin IV Zosyn. 05/10/2022: ICU. Patient had no further drop in hemoglobin. Had a black stool. Off oxygen. Eating well. Accu-Cheks will stabilize. On IV daptomycin IV Zosyn. Sputum growing Margo albicans and Aspergillus fumigators. We'll decrease Levemir to 16 units. Decreased scheduled NovoLog to 3 units with meals. 05/11/2022: ICU. Patient was short of breath this morning. Remains on IV Bumex. Had black stool today. Hemoglobin remained stable. Accu-Cheks followed. Levemir cutback to 12 units at night. Remains on IV daptomycin IV Zosyn. Up in a chair. 05/12/2022: ICU. Some shortness of breath. On 2 L nasal cannula. Hemoglobin remained stable. Oral intake fair. On IV daptomycin and IV Zosyn. Up in a chair. at the bedside. Active Medications Acetaminophen (Acetaminophen Tab 325 Mg Tab) 650 mg PO Q6HR PRN PRN Reason: Fever and/ or Mild Pain Last Admin: 05/12/22 11:29 Dose: 650 mg Hydrocodone Bitart/Acetaminophen (Hydrocodone/Apap 5-325mg 1 Each Tab) 1 each PO Q4HR PRN PRN Reason: Moderate Pain (Scale 4 to 6) Last Admin: 05/10/22 21:16 Dose: 1 each Albuterol/Ipratropium (Ipratropium-Albuterol 3 Ml Neb) 3 ml INHALATION RT-Q2H PRN PRN Reason: Shortness Of Breath Or Wheezing Last Admin: 05/12/22 02:50 Dose: 3 ml Albuterol/Ipratropium (Ipratropium-Albuterol 3 Ml Neb) 3 ml INHALATION RT-QID [facility] Last Admin: 05/12/22 11:54 Dose: 3 ml Ascorbic Acid (Ascorbic Acid 500 Mg Tab) 500 mg PO DAILY [facility] Last Admin: 05/12/22 09:20 Dose: 500 mg Aspirin (Aspirin 325 Mg Tab) 325 mg PO DAILY [facility] Last Admin: 05/12/22 09:20 Dose: 325 mg Benzocaine/Menthol (Benzocaine/Menthol Lozeng 1 Each Lozenge) 1 each MUCOUS MEM Q2HR PRN PRN Reason: Sore Throat Last Admin: 05/12/22 09:17 Dose: 1 each Bisacodyl (Bisacodyl 10 Mg Supp) 10 mg RECTAL DAILY PRN PRN Reason: Constipation Last Admin: 05/09/22 09:10 Dose: 10 mg Budesonide/Formoterol Fumarate (Symbicort 160-4.5 Mcg Inhaler) 2 puff INHALATION RT-BID [facility] Last Admin: 05/12/22 08:46 Dose: 2 puff Bumetanide (Bumetanide 0.25 Mg/Ml 10 Ml Vial) 2 mg IV Q12H [facility] Last Admin: 05/12/22 09:18 Dose: 2 mg Dapagliflozin (Dapagliflozin Propanediol 5 Mg Tablet) 5 mg PO DAILY [facility] Last Admin: 05/12/22 09:22 Dose: 5 mg Dextrose/Water (Dextrose 50% Syringe 50 Ml) 25 ml IVP PER PROTOCOL PRN; Protocol PRN Reason: Hypoglycemia Dextrose/Water (Dextrose 50% Syringe 50 Ml) 50 ml IVP PER PROTOCOL PRN; Protocol PRN Reason: Hypoglycemia Guaifenesin/Dextromethorphan (Guaifenesin-Dm 600/30mg 1 Each Tab.Er.12h) 1 each PO Q12HR [facility] Last Admin: 05/12/22 09:21 Dose: 1 each Daptomycin 360 mg/ Sodium (Chloride) 50 mls @ 100 mls/hr IVPB Q24H ZULMA; Protocol Last Admin: 05/12/22 00:05 Dose: 100 mls/hr Piperacillin Sod/Tazobactam (Sod 3.375 gm/ Sodium Chloride) 100 mls @ 25 mls/hr IVPB Q8HR ZULMA; Protocol Last Admin: 05/12/22 09:16 Dose: 25 mls/hr Insulin Aspart (Insulin Aspart (Novolog) 100 Unit/Ml Vial) 0 unit SQ ACHS ZULMA; Protocol Last Admin: 05/12/22 11:30 Dose: 4 unit Insulin Aspart (Insulin Aspart (Novolog) 100 Unit/Ml Vial) 3 unit SQ AC-TID [facility] Last Admin: 05/12/22 11:30 Dose: 3 unit Insulin Detemir (Insulin Detemir (Levemir) 100 Unit/Ml Syr) 12 unit SQ HS [facility] Last Admin: 05/11/22 20:15 Dose: 12 unit Lidocaine (Lidocaine 5% Patch) 2 patch TOPICAL DAILY [facility]; Protocol Last Admin: 05/12/22 09:17 Dose: 2 patch Magnesium Hydroxide (Magnesium Hydroxide 2,400 Mg/10 Ml Cup) 2,400 mg PO BID PRN PRN Reason: Constipation Last Admin: 04/22/22 07:08 Dose: 2,400 mg Metoprolol Tartrate (Metoprolol Tartrate 25 Mg Tab) 25 mg PO BID [facility] Last Admin: 05/12/22 09:22 Dose: 25 mg Miscellaneous Information (Potassium Replacement Protocol 1 Each Misc) 1 each MISCELLANE DAILY PRN; Protocol PRN Reason: Per Protocol Miscellaneous Information (Magnesium Replacement Protocol 1 Each Misc) 1 each MISCELLANE DAILY PRN; Protocol PRN Reason: Per Protocol Non-Formulary Medication (Non Formulary Drug) 1 each SQ DAILY [facility] Last Admin: 05/12/22 09:17 Dose: 1 each Ondansetron HCl (Ondansetron 4 Mg/2 Ml Vial) 4 mg IVP Q6HR PRN PRN Reason: Nausea And Vomiting Last Admin: 05/11/22 18:44 Dose: 4 mg Pantoprazole Sodium (Pantoprazole 40 Mg/10 Ml Vial) 40 mg IVP BID [facility] Last Admin: 05/12/22 09:18 Dose: 40 mg Potassium Chloride (Potassium Chloride Er 10 Meq Tab.Er.Prt) 10 meq PO DAILY [facility] Last Admin: 05/12/22 09:22 Dose: 10 meq Senna/Docusate Sodium (Sennosides-Docusate Sodium 1 Each Tab) 2 each PO HS [facility] Last Admin: 05/11/22 20:15 Dose: 2 each Sodium Chloride (Sodium Chloride 0.9% Flush 10 Ml Syringe) 10 ml IV BID [facility] Last Admin: 05/12/22 09:53 Dose: Not Given Tamsulosin HCl (Tamsulosin 0.4 Mg Cap.Er.24h) 0.4 mg PO PC-BRKFST [facility] Last Admin: 05/12/22 09:20 Dose: 0.4 mg On examination: VITAL SIGNS: 98.3, 66, 31, 117/49, 93% on 2 L GENERAL APPEARANCE: Up in chair, mild short of breath HEENT: Normal external appearance of nose and ear. Oral cavity normal EYES: Pupils equal. Conjunctiva normal. NECK: JVD not raised. Mass not palpable. RESPIRATORY: Respiratory effort increased. Lungs diminished breath sounds. CARDIOVASCULAR: First and second sounds normal. Edema present ABDOMEN: Soft. Liver and spleen not palpable. No tenderness. No mass palpable. Sacral decub. Using a donut PSYCHIATRY: AO 3, mood and affect normal INVESTIGATIONS, reviewed in the clinical context: 05/12/2022: WBC 13 hemoglobin 7.3 potassium 4.8 creatinine 1.24 05/11/2022: WBC 13.1 hemoglobin 7.6 platelets 229 potassium 4.7 BUN 35 creatinine 1.43 05/10/2022: WBC 12.6-year-old globin 10.6 potassium 4.2 BUN 40 creatinine 1.33 05/09/2022: WBC 14.70 globin 6.6 platelets 241 potassium 4.1. 51 and creatinine 1.27 05/08/2022: WBC 14.9 hemoglobin 5.9 platelets 27 BUN 68 creatinine 1.48 05/07/2022: WBC 23.1 hemoglobin 6.2 platelets 334 potassium 4.2 BUN 77 creatinine 1.48 AST 69 ALT 70 05/06/2022: WBC 19.7 hemoglobin 6.2 platelets 322 potassium 3.8. 83 creatinine 1.50 05/05/2022: WBC 18.1 hemoglobin 6.7 potassium 4. 85 creatinine 1.46 05/04/2022: WBC 16 hemoglobin 6.1 platelets 362 potassium 3.7 BUN 75 creatinine 1.75 Limited 2-D echocardiogram [May 01]: EF 45%. [id number] MR, moderate aortic stenosis 05/01/2022: WBC 15.3 hemoglobin 7.2 platelets 305 potassium 4. [address] chest [April 29]: Moderate partial obliterate right pleural effusion, left pleural effusion, cardiomegaly. 04/24/2022: WBC 9.2 hemoglobin 7.1 platelets 122 potassium 5.1 BUN 77 creatinine 2.97 AST 1270 ALT 1038 WBC 8.2 hemoglobin 7.5 platelets 111 sodium 135 progression 6 BUN 67 creatinine 3.43 AST 3595 ALT 1512 Limited 2-D echocardiogram: EF 45-50%. Inferior wall hypokinesis. Moderate MR. Moderate pulmonary hypertension with moderate TR. Assessment and plan -Acute on chronic congestive heart exacerbation from systolic/diastolic dysfunction EF 45-50%:, precipitated by A. fib: Better Bumex 2 mg IV daily-pneumonia, short of breath, infiltrate on chest x-ray, increasing white count and procalcitonin: Better IV cefepime-completed -Acute hypoxic respiratory failure from pulmonary edema/pneumonia: Better 93% on 2 L -Diabetes Mellitus type 2 , uncontrolled with hyperglycemia, Victoza , Actos-discontinue. Levemir 12 units daily at bedtime. 3 units NovoLog with meals. farxiga 5 mg -Paroxysmal atrial fibrillation status post modified Castanon-Maze procedure,: With rapid ventricular rate: Now - sinus rhythm amiodarone ,Lopressor. Eliquis held because of GI bleed -Acute GI bleed from the third and fourth portion of duodenum. EGD encountered fresh blood with blood clots. No obvious source noted. Patient is on aspirin. Eliquis held -acute renal failure on chronic kidney disease stage II with renal failure is probably prerenal azotemia, cardiorenal syndrome.: Creatinine peaked at 3.43. Creatinine 1.46 -hyperkalemia secondary to acute renal failure: Corrected Received Lokelma. Renal diet -Acute hepatitis, likely ischemic: Better Follow closely. GI services not available in the hospital. Hold any hepatic offensive medications. Follow LFTs patient as patient started back on amiodarone -Acute COPD exacerbation, in a smoker DuoNeb. Symbicort -Hyperlipidemia Lipitor -Sacral decubitus ulcer: With abscess. Large abscess was encountered. 12 x 10 x 4 cm deep. Cleaned out by Dr. Fiore 05/08/2022. Follow with ID. On IV daptomycin, IV Zosyn -Metabolic alkalosis from diuresis Was on Diamox - coronary artery disease with previous PCI Aspirin, Imdur, Lopressor -Acute postprocedure blood loss anemia as expected from surgery, also hospital- acquired anemia from blood draws Received PRBC -Chronic nicotine dependence - post mitral valve failure, status post CABG, status post PFO closure: Currently [id number] MR -Moderate aortic stenosis -Moderate secondary pulmonary hypertension Continue current treatment plan. Antibiotics per ID. Discussed with patient. Plan to increase Farxiga next week
--- NOTE | 2022-05-12 16:07 | P.PN ---
Subjective Progress Note Date: 05/11/22 Principal diagnosis: Leukocytosis Patient is a 72-year-old male electively admitted to the hospital 04/19/2022 for mitral valve repair and coronary bypass grafting 3 and this patient has been afebrile however noticed to have worsening leukocytosis. Patient has been evaluated by general surgery and is scheduled for EGD and debridement of the sacral wound Completed on 05/08/2022 unfortunately abscess was drained but no cultures were obtained. On today's evaluation that is 05/11/2022 patient remains to be afebrile, the patient is breathing comfortably currently on 2 L nasal cannula, the patient denies any chest pain shortness with occasional cough no abdominal pain , the patient pain to the sacral wound area has decreased in intensity Objective - Vital Signs Vital signs: Vital Signs Temp 98.5 F 05/11/22 12:00 Pulse 72 05/11/22 12:00 Resp 21 05/11/22 12:00 BP 93/59 05/11/22 12:00 Pulse Ox 92 L 05/11/22 12:00 FiO2 100 04/22/22 16:00 Intake & Output 05/10/22 05/11/22 05/11/22 18:59 06:59 18:59 Intake Total 600 230 500 Output Total 1300 800 600 Balance -700 -570 -100 Weight 92.5 kg 93.4 kg Intake: IV 200 230 100 0.9 80 DAPTOmycin 360 mg In 50 Sodium Chloride 0.9% 50 ml @ 100 mls/hr IVPB Q24H COUNT INCLUDES THE [facility] Rx#:[id number] Piperacillin-Tazobactam 3 200 100 100 .375 gm In Sodium Chloride 0.9% 100 ml @ 25 mls/hr IVPB Q8HR COUNT INCLUDES THE [facility] Rx# :[id number] Oral 400 400 Output: Urine 1300 800 600 Other: Voiding Method Urinal Urinal Urinal # Voids 1 1 # Bowel Movements 1 1 1 ABP, PAP, CO, CI - Last Documented Arterial Blood Pressure 137/47 Pulmonary Artery Pressure 67/18 Cardiac Output 5.8 Cardiac Index 2.8 - Exam GENERAL DESCRIPTION: An elderly male up in the chair in no distress RESPIRATORY SYSTEM: Unlabored breathing , decreased breath sounds at bases HEART: S1 S2 regular rate and rhythm , ABDOMEN: Soft , no tenderness Stages the sacral pressure ulcer with some slough tissue at base and surrounding redness some foul-smelling EXTREMITIES: 2+ edema feet - Labs CBC & Chem 7: 05/12/22 05:43 05/12/22 05:43 Labs: Abnormal Lab Results - Last 24 Hours (Table) 05/10/22 05/10/22 05/11/22 Range/Units 16:32 20:25 06:44 WBC (3.8-10.6) k/uL RBC (4.30-5.90) m/uL Hgb (13.0-17.5) gm/dL Hct (39.0-53.0) % RDW (11.5-15.5) % Neutrophils # (1.3-7.7) k/uL Lymphocytes # (1.0-4.8) k/uL Sodium (137-145) mmol/L BUN (9-20) mg/dL Creatinine (0.66-1.25) mg/dL POC Glucose (mg/dL) 161 H 177 H 116 H (70-110) mg/dL Calcium (8.4-10.2) mg/dL AST (17-59) U/L ALT (4-49) U/L Total Protein (6.3-8.2) g/dL Albumin (3.5-5.0) g/dL 05/11/22 05/11/22 05/11/22 Range/Units 06:46 06:46 11:49 WBC 13.1 H (3.8-10.6) k/uL RBC 2.50 L (4.30-5.90) m/uL Hgb 7.6 L (13.0-17.5) gm/dL Hct 24.4 L (39.0-53.0) % RDW 18.6 H (11.5-15.5) % Neutrophils # 11.2 H (1.3-7.7) k/uL Lymphocytes # 0.5 L (1.0-4.8) k/uL Sodium 136 L (137-145) mmol/L BUN 35 H (9-20) mg/dL Creatinine 1.43 H (0.66-1.25) mg/dL POC Glucose (mg/dL) 173 H (70-110) mg/dL Calcium 8.0 L (8.4-10.2) mg/dL AST 66 H (17-59) U/L ALT 73 H (4-49) U/L Total Protein 5.3 L (6.3-8.2) g/dL Albumin 2.9 L (3.5-5.0) g/dL Assessment and Plan (1) Leukocytosis Current Visit: Yes Status: Acute Code(s): D72.829 - ELEVATED WHITE BLOOD CELL COUNT, UNSPECIFIED SNOMED Code(s): 239208325 Plan: 1patient with a leukocytosis in this patient who is postop mitral valve repair and CABG x3 patient did not have any fever during this hospital stay and the white count has been slowly creeping up over the last 5 days source possible cath versus UTI versus his sacral pressure ulcer, patient started as well as vein grafting sites looks clean without evidence of any cellulitis he did have a thoracocentesis with fluid does not look infected and cultures subsequently negative. 2 blood cultures are negative. 3patient likely source of elevated white count is infected sacral pressure ulcer, , Patient is status post surgical debridement of the sacral pressure ulcer with evidence of abscess unfortunately no cultures were done as we do not have any culture data to narrow his antibiotics we will continue the patient on Zosyn and daptomycin and monitor clinical course closely Time with Patient: Less than 30
--- NOTE | 2022-05-12 16:08 | P.PN ---
Subjective Progress Note Date: 05/12/22 Principal diagnosis: Leukocytosis Patient is a 72-year-old male electively admitted to the hospital 04/19/2022 for mitral valve repair and coronary bypass grafting 3 and this patient has been afebrile however noticed to have worsening leukocytosis. Patient has been evaluated by general surgery and is scheduled for EGD and debridement of the sacral wound Completed on 05/08/2022 unfortunately abscess was drained but no cultures were obtained. On today's evaluation that is 05/12/2022 patient continues to be afebrile, the patient is breathing comfortably on room air, the patient denies any chest pain shortness of breath, the patient did have occasional dry cough no abdominal pain , the patient pain to the sacral wound area has decreased in intensity Objective - Vital Signs Vital signs: Vital Signs Temp 98.0 F 05/12/22 15:00 Pulse 71 05/12/22 15:31 Resp 29 H 05/12/22 15:00 BP 96/59 05/12/22 13:00 Pulse Ox 94 L 05/12/22 15:00 FiO2 100 04/22/22 16:00 Intake & Output 05/11/22 05/12/22 05/12/22 18:59 06:59 18:59 Intake Total 950 1012 500 Output Total 1650 565 900 Balance -700 447 -400 Weight 93.5 kg Intake: IV 200 240 100 0.9 40 DAPTOmycin 360 mg In 100 Sodium Chloride 0.9% 50 ml @ 100 mls/hr IVPB Q24H [facility] Rx#:[id number] Piperacillin-Tazobactam 3 200 100 100 .375 gm In Sodium Chloride 0.9% 100 ml @ 25 mls/hr IVPB Q8HR [facility] Rx# :[id number] Oral 750 772 400 Output: Urine 1650 565 900 Other: Voiding Method Urinal Urinal Urinal # Voids 1 0 1 # Bowel Movements 1 1 ABP, PAP, CO, CI - Last Documented Arterial Blood Pressure 137/47 Pulmonary Artery Pressure 67/18 Cardiac Output 5.8 Cardiac Index 2.8 - Exam GENERAL DESCRIPTION: An elderly male up in the chair in no distress RESPIRATORY SYSTEM: Unlabored breathing , decreased breath sounds at bases HEART: S1 S2 regular rate and rhythm , ABDOMEN: Soft , no tenderness Stages the sacral pressure ulcer with some slough tissue at base and surrounding redness some foul-smelling EXTREMITIES: 2+ edema feet - Labs CBC & Chem 7: 05/12/22 05:43 05/12/22 05:43 Labs: Abnormal Lab Results - Last 24 Hours (Table) 05/11/22 05/11/22 05/12/22 Range/Units 16:26 20:12 05:43 WBC 13.0 H (3.8-10.6) k/uL RBC 2.39 L (4.30-5.90) m/uL Hgb 7.3 L (13.0-17.5) gm/dL Hct 23.0 L (39.0-53.0) % RDW 18.1 H (11.5-15.5) % Neutrophils # 11.3 H (1.3-7.7) k/uL Lymphocytes # 0.5 L (1.0-4.8) k/uL Sodium (137-145) mmol/L BUN (9-20) mg/dL Glucose (74-99) mg/dL POC Glucose (mg/dL) 168 H 222 H (70-110) mg/dL Calcium (8.4-10.2) mg/dL AST (17-59) U/L ALT (4-49) U/L Total Protein (6.3-8.2) g/dL Albumin (3.5-5.0) g/dL 05/12/22 05/12/22 05/12/22 Range/Units 05:43 06:31 11:24 WBC (3.8-10.6) k/uL RBC (4.30-5.90) m/uL Hgb (13.0-17.5) gm/dL Hct (39.0-53.0) % RDW (11.5-15.5) % Neutrophils # (1.3-7.7) k/uL Lymphocytes # (1.0-4.8) k/uL Sodium 135 L (137-145) mmol/L BUN 37 H (9-20) mg/dL Glucose 131 H (74-99) mg/dL POC Glucose (mg/dL) 179 H 204 H (70-110) mg/dL Calcium 7.8 L (8.4-10.2) mg/dL AST 61 H (17-59) U/L ALT 64 H (4-49) U/L Total Protein 5.1 L (6.3-8.2) g/dL Albumin 2.8 L (3.5-5.0) g/dL Microbiology - Last 24 Hours (Table) 04/30/22 16:45 Fungal Culture - Preliminary Pleural Fluid Assessment and Plan (1) Leukocytosis Current Visit: Yes Status: Acute Code(s): D72.829 - ELEVATED WHITE BLOOD CELL COUNT, UNSPECIFIED SNOMED Code(s): 602064994 Plan: 1patient with a leukocytosis in this patient who is postop mitral valve repair and CABG x3 patient did not have any fever during this hospital stay and the white count has been slowly creeping up over the last 5 days source possible cath versus UTI versus his sacral pressure ulcer, patient started as well as vein grafting sites looks clean without evidence of any cellulitis he did have a thoracocentesis with fluid does not look infected and cultures subsequently negative. 2 blood cultures are negative. 3patient likely source of elevated white count is infected sacral pressure ulcer, , Patient is status post surgical debridement of the sacral pressure ulcer with evidence of abscess unfortunately no cultures were done as we do not have any culture data to narrow his antibiotics we will continue the patient on Zosyn and daptomycin, local wound care to continue per surgery may benefit from wound VAC application and continue supportive care
[2022-05-12 17:01] LABS: Glucose,Whole Blood 118 mg/dL (70-110)
[2022-05-12] MEDS: ONDANSETRON 4 MG/2 ML VIAL IVP PRN (19:13)
[2022-05-12 19:53] LABS: Glucose,Whole Blood 248 mg/dL (70-110)
[2022-05-12] MEDS: SENNOSIDES-DOCUSATE SODIUM 1 EACH TAB PO SCH (20:19)
[2022-05-12] MEDS: INSULIN DETEMIR (LEVEMIR) 100 UNIT/ML SYR SQ SCH (20:20)
[2022-05-12] MEDS: HYDROcodone/APAP 5-325MG 1 EACH TAB PO PRN ×2 (20:28→23:44)
[2022-05-13] MEDS: BENZOCAINE/MENTHOL LOZENG 1 EACH LOZENGE MUCOUS MEM PRN ×4 (01:45→19:56)
[2022-05-13] MEDS: IPRATROPIUM-ALBUTEROL 3 ML NEB INHALATION PRN ×2 (03:55→23:53)
[2022-05-13] MEDS: HYDROcodone/APAP 5-325MG 1 EACH TAB PO PRN ×3 (05:15→23:51)
[2022-05-13 05:48] LABS: Albumin 2.6 g/dL (3.5-5.0); Calcium 7.5 mg/dL (8.4-10.2); Potassium 4.4 mmol/L (3.5-5.1); Total Bilirubin 0.6 mg/dL (0.2-1.3)
[2022-05-13 05:58] LABS: Anisocytosis Slight; Basophils # (A) 0.1 k/uL (0-0.2); Basophils % (A) 1 %; Eosinophils % (A) 0 %; HCT 20.8 % (39.0-53.0); Hypochromasia Marked; Lymphocytes # (A) 0.5 k/uL (1.0-4.8); Lymphocytes % (A) 6 %; MCH 30.3 pg (25.0-35.0); MCHC 31.3 g/dL (31.0-37.0); MCV 96.9 fL (80.0-100.0); Macrocytosis Slight; Mean Platelet Volume 8.8; Monocytes # (A) 0.6 k/uL (0-1.0); Monocytes % (A) 7 %; Neutrophils # (A) 6.8 k/uL (1.3-7.7); Neutrophils % (A) 82 %; Platelet Count 197 k/uL (150-450); Poikilocytosis Slight; RBC 2.14 m/uL (4.30-5.90); RDW 18.2 % (11.5-15.5); WBC 8.3 k/uL (3.8-10.6)
[2022-05-13 06:11] LABS: HGB 6.5 gm/dL (13.0-17.5)
[2022-05-13 06:45] LABS: Glucose,Whole Blood 144 mg/dL (70-110)
[2022-05-13] MEDS: INSULIN ASPART (NovoLOG) 100 UNIT/ML VIAL SQ SCH ×6 (06:56→20:00)
--- NOTE | 2022-05-13 07:35 | XR ---
EXAMINATION TYPE: XR chest 1V portable DATE OF EXAM: 05/13/2022 HISTORY: Shortness of breath. COMPARISON: 05/12/2022 TECHNIQUE: Single view of the chest is submitted. FINDINGS: Demonstrated are scattered senescent parenchymal change. Median sternotomy with cardiac valvular prosthesis. Continued pulmonary venous congestion with effusi ons and scattered interstitial and alveolar infiltrates. Hilar and mediastinal structures are within normal limits. Degenerative changes are seen of the dorsal spine. IMPRESSION: 1. Continued pulmonary venous congestion with effusions and scattered interstitial and alveolar infi ltrates. Overall stable examination.
[2022-05-13] MEDS: IPRATROPIUM-ALBUTEROL 3 ML NEB INHALATION SCH ×4 (07:54→20:10)
[2022-05-13] MEDS: SYMBICORT 160-4.5 MCG INHALER INHALATION SCH ×2 (07:54→20:10)
[2022-05-13] MEDS: PIPERACILLIN-TAZOBACTAM 3.375 GM in SODIUM CHLORIDE 0.9% 100 ML IVPB SCH ×3 (08:10→23:40)
--- NOTE | 2022-05-13 08:27 | P.PN ---
Subjective Progress Note Date: 05/13/22 Principal diagnosis: Status post CABG The patient is a 72-year-old gentleman who is status post CABG as well as mitral valve repair with surgery complicated by recurrent pleural effusion. 05/07/2022 The patient was seen this morning. He is overall stable from a perivascular st andpoint of view. He is not on any vasopressors at this point. He does have history of hematuria but that seems to be cleared this morning. Currently he is on aspirin. He does have also history of paroxysmal atrial fibrillation and he was receiving oral anticoagulation which was stopped. May 082021 The patient was seen and evaluated this morning. He remains stable from a cardiovascular standpoint of view. His hemoglobin this morning is 5.9 and he is in process of having one unit of packed RBC to be transfused. He was seen by the urology service and currently antiplatelet beside aspirin and anticoagulation are on hold. May 092021 The patient was seen and evaluated this morning. The hemoglobin this morning is 6.6 and it was 6.8 yesterday. Overall he's stable with a soft blood pressure. He remains asymptomatic. He remains on antiplatelet with aspirin only. May 102021 The patient was seen and evaluated this morning. Hemoglobin this morning is above 7. He seems otherwise stable from a perivascular standpoint of view. He is of oral anticoagulation because of gastrointestinal bleeding and hematuria. 05/11/2022 The patient was seen this morning. He remains a stable. Hemoglobin remains stable as well. The hemoglobin this morning is 7.9. He is not on any anticoagulation and only he is on aspirin as antiplatelet. Otherwise he remains hemodynamically stable. He has been in normal sinus mechanism. We'll continue the current medical regimen. The patient potentially is going to discharge into inpatient rehab May 122021 The patient was seen this morning. He is more short of breath today. On examination he does have bilateral primary the bases and also bilateral lower except his edema. He stated having black stool but the hemoglobin overall seems to be stable. He continues to be on aspirin only and we are holding any anti coagulation. Currently he is on Bumex 2 mg IV daily. The chest x-ray showed pulmonary vascular congestion is a small bilateral pleural effusion. May 132021 The patient was seen this morning. The hemoglobin dropped to 6.7. Currently he is in process of having unit of packed RBC. He is symptomatic and he is tired and fatigued and also is short of breath. I advised The Dose of Aspirin from 325 Mg by Mouth Daily to 81 Mg by Mouth Daily. He Is Not on Any Anticoagulation at This Point. Also I Advised Start the Patient on Iron Orally. The chest x- ray continues to show findings consistent with pulmonary vascular congestion. Currently he is on Bumex IV. Creatinine is stable. Objective - Vital Signs Vital signs: Vital Signs Temp 98.1 F 05/13/22 04:00 Pulse 82 05/13/22 08:07 Resp 14 05/13/22 07:00 BP 112/53 05/13/22 07:00 Pulse Ox 92 L 05/13/22 07:00 FiO2 100 04/22/22 16:00 Intake & Output 05/12/22 05/13/22 05/13/22 18:59 06:59 18:59 Intake Total 600 1050 200 Output Total 1100 1520 Balance -500 -470 200 Weight 91.4 kg Intake: IV 200 200 0.9 50 DAPTOmycin 360 mg In 50 Sodium Chloride 0.9% 50 ml @ 100 mls/hr IVPB Q24H [facility] Rx#:[id number] Piperacillin-Tazobactam 3 200 100 .375 gm In Sodium Chloride 0.9% 100 ml @ 25 mls/hr IVPB Q8HR [facility] Rx# :[id number] Oral 400 850 200 Output: Urine 1100 1520 Other: Voiding Method Urinal Urinal # Voids 1 0 0 # Bowel Movements 1 ABP, PAP, CO, CI - Last Documented Arterial Blood Pressure 137/47 Pulmonary Artery Pressure 67/18 Cardiac Output 5.8 Cardiac Index 2.8 - Constitutional General appearance: Present: no acute distress - Respiratory Respiratory: bilateral: diminished - Cardiovascular Rhythm: irregularly irregular - Labs CBC & Chem 7: 05/13/22 04:32 05/13/22 04:32 Labs: Abnormal Lab Results - Last 24 Hours (Table) 05/12/22 05/12/22 05/12/22 Range/Units 11:24 16:59 19:52 RBC (4.30-5.90) m/uL Hgb (13.0-17.5) gm/dL Hct (39.0-53.0) % RDW (11.5-15.5) % Lymphocytes # (1.0-4.8) k/uL Sodium (137-145) mmol/L BUN (9-20) mg/dL Creatinine (0.66-1.25) mg/dL POC Glucose (mg/dL) 204 H 118 H 248 H (70-110) mg/dL Calcium (8.4-10.2) mg/dL AST (17-59) U/L ALT (4-49) U/L Total Protein (6.3-8.2) g/dL Albumin (3.5-5.0) g/dL 05/13/22 05/13/22 05/13/22 Range/Units 04:32 04:32 06:44 RBC 2.14 L (4.30-5.90) m/uL Hgb 6.5 L* (13.0-17.5) gm/dL Hct 20.8 L (39.0-53.0) % RDW 18.2 H (11.5-15.5) % Lymphocytes # 0.5 L (1.0-4.8) k/uL Sodium 134 L (137-145) mmol/L BUN 42 H (9-20) mg/dL Creatinine 1.33 H (0.66-1.25) mg/dL POC Glucose (mg/dL) 144 H (70-110) mg/dL Calcium 7.5 L (8.4-10.2) mg/dL AST 82 H (17-59) U/L ALT 64 H (4-49) U/L Total Protein 5.0 L (6.3-8.2) g/dL Albumin 2.6 L (3.5-5.0) g/dL Assessment and Plan Assessment: Assessment #1 status post CABG and mitral valve repair #2 paroxysmal atrial fibrillation #3 recurrent pleural effusion #4 hematuria #5 anemia Plan Continue the current dose of Bumex IV. The creatinine continues to be stable Decrease dose of aspirin from 325 to 81 mg by mouth daily Suggested starting the patient on oral iron Continue monitor the kidney function and hemoglobin Follow-up with the patient
[2022-05-13] MEDS: NON FORMULARY DRUG SQ SCH (09:02)
[2022-05-13] MEDS: TAMSULOSIN 0.4 MG CAP.ER.24H PO SCH (09:03)
[2022-05-13] MEDS: DAPAGLIFLOZIN PROPANEDIOL 5 MG TABLET PO SCH (09:03)
[2022-05-13] MEDS: guaiFENesin-DM 600/30MG 1 EACH TAB.ER.12H PO SCH ×2 (09:03→20:01)
[2022-05-13] MEDS: ASPIRIN 81 MG PO SCH (09:03)
[2022-05-13] MEDS: BUMETANIDE 0.25 MG/ML 10 ML VIAL IV SCH (09:03)
[2022-05-13] MEDS: ASCORBIC ACID 500 MG TAB PO SCH (09:03)
[2022-05-13] MEDS: PANTOPRAZOLE 40 MG/10 ML VIAL IVP SCH ×2 (09:04→20:00)
[2022-05-13] MEDS: LIDOCAINE 5% PATCH TOPICAL SCH (09:04)
[2022-05-13] MEDS: METOPROLOL TARTRATE 25 MG TAB PO SCH ×3 (09:04→20:00)
[2022-05-13] MEDS: POTASSIUM CHLORIDE ER 10 MEQ TAB.ER.PRT PO SCH (09:04)
--- NOTE | 2022-05-13 10:21 | P.PN ---
Subjective Progress Note Date: 05/13/22 Principal diagnosis: Severe mitral valve regurgitation, coronary artery disease, paroxysmal atrial fibrillation, patent foramen ovale, tricuspid regurgitation, chronic systolic congestive heart failure. Past medical history significant for hypertension, hyperlipidemia, coronary artery disease with history of previous PCI, non-ST elevated myocardial infarction in November 2021, ischemic cardiomyopathy with EF 40- 45%, right internal carotid stenosis 50-79%, renal insufficiency, anemia with history of GI bleed in November 2021 S/P transfusion PRBCs, diabetes mellitus type 2, osteoarthritis, severe COPD, chronic ongoing nicotine dependence, remote history of pneumonia, chronic low back pain and hearing disorder. Nasal swab positive for MSSA preoperative POD #24 Mitral valve repair with 28 mm physio-2 ring, CABG 3 with saphenous vein grafts to first diagonal, obtuse marginal, posterior descending coronary arteries, closure of PFO, endovascular vein harvest, modified Castanon maze procedure with full left-sided lesion set and ligation of the left atrial appendage, SCOTT by anesthesia. Protamine reaction intraoperative Postoperative acute blood loss anemia, expected given his history of anemia, hemodilution and cardiopulmonary bypass Acute on chronic kidney failure, likely from hypotension from intraoperative protamine reaction Elevated transaminases, likely from hypotension from intraoperative protamine reaction Left pleural effusion, status post left-sided thoracentesis with removal of [address] Aguilar on 04/30/22 and again on 05/04/22 for 550 mL fluid Leukocytosis, afebrile, CRP and pro-calcitonin trending down, sputum culture negative, no pneumonia, no UTI, blood culture preliminary negative, likely due to sacral stage II ulcer The patient was seen and examined in follow-up today 05/13/2022 at his bedside in the intensive care unit. He is sitting up to the bedside chair, is awake, alert, oriented 3 and is in no acute distress. Oxygen saturation are 95% on room air and he is achieving 1000 mL on his incentive spirometry with encouragement. His hemoglobin has dropped to 6.5 today and is being transfused for 1 unit of packed red blood cells. He reports he fatigued and tired today and feels short of breath despite his oxygen saturations 95% on room air. Anticoagulation continues to be on hold and his current dose of aspirin is 325 mg by mouth daily. Laboratory results show a WBC count of 8.3, hemoglobin 6.5, hematocrit 20.8, platelets 197, sodium 134, potassium 4.4, BUN 42, creatinine 1.33, calcium 7.5, AST 42 and ALT 64. He reports he has been up ambulating in the intensive care unit hallway with standby assistance from nursing and therapy staff. He has been taking a shower daily. Chest x-ray has been reviewed. He remains afebrile the last 24 hours. He also remains hemodynamically stable and is currently on no inotropic or pressor support. Objective - Vital Signs Vital signs: Vital Signs Temp 98.8 F 05/13/22 09:38 Pulse 85 05/13/22 10:00 Resp 25 H 05/13/22 10:00 BP 111/51 05/13/22 10:00 Pulse Ox 96 05/13/22 10:00 FiO2 100 04/22/22 16:00 Intake & Output 05/12/22 05/13/22 05/13/22 18:59 06:59 18:59 Intake Total 600 1050 200 Output Total 1100 1520 Balance -500 -470 200 Weight 91.4 kg Intake: IV 200 200 0.9 50 DAPTOmycin 360 mg In 50 Sodium Chloride 0.9% 50 ml @ 100 mls/hr IVPB Q24H [facility] Rx#:[id number] Piperacillin-Tazobactam 3 200 100 .375 gm In Sodium Chloride 0.9% 100 ml @ 25 mls/hr IVPB Q8HR [facility] Rx# :[id number] Oral 400 850 200 Blood Product 0 Unit 0 Output: Urine 1100 1520 Other: Voiding Method Urinal Urinal # Voids 1 0 0 # Bowel Movements 1 ABP, PAP, CO, CI - Last Documented Arterial Blood Pressure 137/47 Pulmonary Artery Pressure 67/18 Cardiac Output 5.8 Cardiac Index 2.8 - Exam CONSTITUTIONAL: Sitting up to the bedside chair in the intensive care unit, appears comfortable, cooperative, no apparent acute distress. HEENT: Neck is supple, no JVD, no lymphadenopathy. RESPIRATORY: Lungs sounds essentially clear throughout, diminished to his bilateral bases. Respirations are symmetrical and nonlabored. Currently on room air oxygen with oxygen saturations 95%. Able to achieve 1000 mL on his incentive spirometry. Strong cough. CARDIOVASCULAR: Regular rhythm and rate. S1 and S2 present, negative for S3, or gallop, soft systolic murmur heard best to his left sternal border. Sternum is stable. Palpable peripheral pulses bilaterally, +1 edema to his bilateral lower extremities. No calf pain or tenderness noted. Heart hugger in place with patient demonstrating appropriate use. Knee-high RAFAEL hose and sequential compression devices in place to his bilateral lower extremities. Bedside telemetry showing normal sinus rhythm with heart rate 84 BPM. GASTROINTESTINAL: Abdomen soft, nontender, nondistended. Active bowel sounds present 4 quadrants. Tolerating diet. Passing flatus. No guarding or rigidity. 3 Small tar-colored Bowel movement yesterday 05/12/2022. GENITOURINARY: Continues to void. 1410 mL of urine output in the last 8 hours. INTEGUMENTARY: Skin is warm and dry with no evidence of clubbing or cyanosis. Midline sternal incision clean dry and well approximated, covered with dry intact dressing. Bilateral lower extremity EVH sites well approximated without redness or drainage. Stage II to III decubitus ulcer present to his buttocks covered with optifoam. MUSKULOSKELETAL: Able to move all extremities, strength equal bilaterally, generalized weakness. PSYCHIATRIC: Alert and oriented to person place and time, appropriate affect, intact judgment and insight. - Allied health notes Allied health notes reviewed: nursing - Labs CBC & Chem 7: 05/13/22 04:32 05/13/22 04:32 Labs: Abnormal Lab Results - Last 24 Hours (Table) 05/12/22 05/12/22 05/12/22 Range/Units 11:24 16:59 19:52 RBC (4.30-5.90) m/uL Hgb (13.0-17.5) gm/dL Hct (39.0-53.0) % RDW (11.5-15.5) % Lymphocytes # (1.0-4.8) k/uL Sodium (137-145) mmol/L BUN (9-20) mg/dL Creatinine (0.66-1.25) mg/dL POC Glucose (mg/dL) 204 H 118 H 248 H (70-110) mg/dL Calcium (8.4-10.2) mg/dL AST (17-59) U/L ALT (4-49) U/L Total Protein (6.3-8.2) g/dL Albumin (3.5-5.0) g/dL Crossmatch 05/13/22 05/13/22 05/13/22 Range/Units 04:32 04:32 06:44 RBC 2.14 L (4.30-5.90) m/uL Hgb 6.5 L* (13.0-17.5) gm/dL Hct 20.8 L (39.0-53.0) % RDW 18.2 H (11.5-15.5) % Lymphocytes # 0.5 L (1.0-4.8) k/uL Sodium 134 L (137-145) mmol/L BUN 42 H (9-20) mg/dL Creatinine 1.33 H (0.66-1.25) mg/dL POC Glucose (mg/dL) 144 H (70-110) mg/dL Calcium 7.5 L (8.4-10.2) mg/dL AST 82 H (17-59) U/L ALT 64 H (4-49) U/L Total Protein 5.0 L (6.3-8.2) g/dL Albumin 2.6 L (3.5-5.0) g/dL Crossmatch 05/13/22 Range/Units 06:46 RBC (4.30-5.90) m/uL Hgb (13.0-17.5) gm/dL Hct (39.0-53.0) % RDW (11.5-15.5) % Lymphocytes # (1.0-4.8) k/uL Sodium (137-145) mmol/L BUN (9-20) mg/dL Creatinine (0.66-1.25) mg/dL POC Glucose (mg/dL) (70-110) mg/dL Calcium (8.4-10.2) mg/dL AST (17-59) U/L ALT (4-49) U/L Total Protein (6.3-8.2) g/dL Albumin (3.5-5.0) g/dL Crossmatch See Detail - Imaging and Cardiology Chest x-ray: report reviewed, image reviewed Assessment and Plan Assessment: 1. Severe mitral valve regurgitation, status post mitral valve repair 2. Coronary artery disease, previous PCI, previous non-STEMI, status post CABG 3 3. History of paroxysmal atrial fibrillation, previous cardioversion, on [facility] outpatient for anticoagulation, status post modified Castanon maze and ligation of left atrial appendage, currently in normal sinus rhythm 4. Patent foramen ovale, status post closure 5. Tricuspid regurgitation 6. Chronic diastolic congestive heart failure, ischemic cardiomyopathy with EF 40-45% 7. History of hypertension 8. History hyperlipidemia, treated, cholesterol 150, LDL 72 9. Right internal carotid stenosis 50-79% 10. Anemia with history of GI bleed in November 2021 S/P transfusion PRBCs 11. Acute on chronic renal failure, baseline creatinine 1.2-1.6 12. Diabetes mellitus type 2, preoperative hemoglobin A1c 5.6% 13. Osteoarthritis 14. Severe COPD, preoperative FEV1 41% of predicted 15. Chronic ongoing nicotine dependence 16. Remote history of pneumonia 17. Chronic low back pain 18. Hearing disorder 19. Nasal swab positive for MSSA preoperative 20. Postoperative acute blood loss anemia, expected 21. Elevated transaminases, continue to trend downward 22. Protamine reaction intraoperative 23. Medical debility, generalized weakness 24. Stage II-III decubitus to his buttocks, status post surgical debridement 25. Small left-sided pleural effusion, status post left-sided thoracentesis on 04/30/2022 26. Urinary retention possibly secondary to constipation, resolved Plan: 1. Continue low-dose aspirin, and beta siomara. We will increase his metoprolol tartrate as tolerated. Aspirin dose changed 81 mg by mouth daily by cardiology, as his hemoglobin today is 6.5. 2. Encourage incentive spirometry 10 times every hour while awake. Bronchodilators per pulmonology/critical care management. 3. Wound care Medihoney ordered for treatment for the patient's decubitus, managed by Dr. Chen from infectious disease. Antibiotic management per infectious disease recommendations currently on Zosyn and daptomycin. 4. Will monitor daily labs and chest x-rays. Electrolyte replacement per protocol. Avoid hepatotoxic and nephrotoxic medications. 1 unit of packed red blood cells for a hemoglobin of 6.5 today. Continue to monitor hemoglobin. Dr. Lisa Ramos has been consulted for further evaluation of GI bleed. 5. Increase activity, ambulate as tolerated. PT/OT/cardiac rehab following. Needs much encouragement with ambulation. 6. Insulin management per primary care service. Patient is a diabetic with a preoperative hemoglobin A1c of 5.6% on multiple oral medications, needs tight blood sugar control. 7. GI/DVT prophylaxis. Continue Protonix 40 mg IVP twice a day. 8. Continue Flomax and continue to record strict accurate I's and O's. 9. Pain control with current medication regimen. 10. Daily weights. 11. Shower daily. 12. Importance of risk modification including smoking cessation counseling and education provided to patient and family. 13. Discharged to inpatient rehab within the next 48 hours, waiting on insurance authorization. 14. Continue Bumex 2 mg IV twice a day. 15. More recommendations to follow based on patient's clinical course. Time with Patient: Greater than 30
--- NOTE | 2022-05-13 10:50 | P.PN ---
Subjective Progress Note Date: 05/13/22 Principal diagnosis: Status post CABG. This is a pleasant 72-year-old male patient with a known history of osteoarthritis was multiple orthopedic surgeries, diabetes mellitus, hyp erlipidemia, chronic tobacco dependence, paroxysmal atrial fibrillation. He was recently found to have coronary artery disease with a total occlusion of the RCA with collateral circulation, obtuse marginal with 99% stenosis and mild LAD disease. His ejection fraction is 45%. He was also found to have severe mitral regurgitation, moderate central tricuspid regurgitation as well as evidence of a PFO with [id number] shunt. He was recommended coronary artery bypass grafting and valvular repair. He was brought in to the hospital yesterday 04/20/2022 for an elective procedure. He did undergo mitral valve repair, coronary bypass grafting 3 with an SVG to the first diagonal, obtuse marginal and posterior descending coronary arteries, closure of a PFO, modified Castanon-Maze procedure and litigation of the left atrial appendage. He was successfully extubated within the 6 hour protocol. He is seen today in consultation in the intensive care unit. He is ready sitting up in a chair. Awake and alert in no acute distress. He is maintaining O2 saturation in the 90s on 3 L/m per nasal cannula. He has insulin drip at 5 units per hour. Lactated Ringer's at 20 miles per hour. He initially was on epinephrine drip that has been discontinued. He did receive 2 units of packed red blood cells, 2 units of fresh frozen plasma and 1 unit of platelets. White count 8.9. Hemoglobin 7.7. Platelets 139,000. Sodium 142. Potassium 5.5. Chloride 111. Bicarb 23. BUN 32. Creatinine 1.73. Glucose 125. AST 1:30. ALT 37. Magnesium 3.6. Mean arterial blood pressure in the 70s. PA pressures 50/18. CVP 12. Cardiac output 6.5. Cardiac index 3.1. He is on bronchodilators. Working well with the incentive spirometer. Chest x-ray reveals scattered opacities bilaterally. No evidence of pleural effusion, focal consolidation or pneumothorax. Mediastinal 2, left pleural chest tube in place. He is continued on oral amiodarone. Heparin for DVT prophylaxis. The patient is seen today in 04/21/2022 in follow-up in the intensive care unit. He is currently sitting up in a recliner at the bedside. Maintaining O2 saturations on 5 L/m per nasal cannula. He did require BiPAP support last evening and was placed on 14/10 and 100% FiO2 eventually decreased to 40%. He is currently on a Lasix drip at 5 mg per hour. Dopamine drip at 2 mcg/kg/m. Cardiac output 4.6. Cardiac index 2.2. He is dual pacing. He has normal saline at 20 ML's per hour. He is unemployed about 750 MLS on the incentive spirometer. His x-ray continues to show cardiomegaly with ongoing mild pulmonary vascular congestion. Increasing patchy bibasilar opacities/atelectasis. Right IJ Melvin-Varghese catheter remains in place. He is sternal and left sided chest tubes remain in place. No pneumothorax. White count 9.6. Hemoglobin 7.3. Platelets 144. Sodium 132. Potassium 5.4. Bicarb 21. BUN 41. Creatinine 2.53. Glucose 175. AST 1309. ALT 547. Albumin 3.6. The patient does have a cyst the year smoking history. He remains on DuoNeb inhalations 4 times a day and when necessary. Heparin for DVT prophylaxis. Progress note dated 04/22/2022. 72-year-old male, who is currently seen in room 267. He's postop day #3. The patient's currently on 8 L high flow oxygen. He is getting dopamine at 2 mcg/kg/m, a Lasix drip at 10 mg an hour, insulin at 1.5 units an hour, and saline at 20 mL an hour. Labs today include a white count of 8.5, hemoglobin 7.4, hematocrit 23.3, and a platelet count of 135,000. Sodium 131, potassium 5.8, chlorides 102, CO2 23, BUN 51, and creatinine 3.1. AST was 2217. ALT is 1006. Chest x-ray shows cardiomegaly, and pulmonary vascular congestion. Reevaluated today on 05/05/22, remains in the ICU, remains marginal at best. Today the patient is feeling a bit better, and he would likely feel even better once he gets another unit of packed RBCs continues to have low hemoglobin. Chest x-ray showed minimal atelectasis, no clear-cut evidence of congestive he art failure. Patient is sitting at a bedside chair, he is on 2 L nasal cannula, able to achieve about 1000 mL via incentive spirometry. No pain, no discomfort, continues to have a sacral decubitus ulcer stage II3. Hemoglobin today is 6.7, was 6.1 yesterday, and he will receive another unit of packed RBCs today. Reevaluated today on 05/06/22, remains in the ICU, patient is doing well, requiring another unit of packed RBCs today, patient is having hematuria, and that's going to be addressed by urology which was consulted. Pulmonary-arboleda is about the same, remains on 2 L nasal cannula, chest x-ray is showing evidence of interstitial edema and small tiny left-sided and right-sided pleural effusions, not large enough to consider thoracentesis at this point yet. He remained generally weak and short of breath with any activity. Hemoglobin today is 6.2, WBC count is 19.7, patient was placed on daptomycin and Eraxis empirically by infectious disease on the case. All cultures have been nondiagnostic so far including blood pleural effusion cultures and sputum cultures. Patient does hav e a sacral decubitus ulcer that may be causing his leukocytosis Progress note dated 05/07/2022. 72-year-old male status post four-vessel bypass grafting, mitral valve repair, and Castanon-Maze procedure. The patient is currently on 2 L of oxygen. Not receiving any IV fluids. He, he's had problems with anemia, he is receiving his sixth unit of blood. Surgery was consulted. White count 23.1, hemoglobin 6.2, hematocrit 20.5, and platelet count 334,000. Sodium 136, potassium 4.2, chlorides 100, due to 27, anion gap 9, BUN 77, and creatinine 1.48. Chest x-ray shows cardiomegaly, and small right pleural effusion. Progress note dated 05/08/2022. 72-year-old male, status post four-vessel bypass grafting, mitral valve repair, and Castanon-Maze procedure. The patient is seen again in room 267, in the intensive care unit. He's on 2 L of oxygen. He is on no IV fluids. Because of ongoing anemia, the patient is receiving his 7 unit of packed red blood cells. He is scheduled for an EGD today. White count 14.9, hemoglobin 5.9, hematocrit 18.8, and platelet count 257,000. Sodium 137, potassium 3.9, chlorides 105, CO2 29, BUN 68, and creatinine 1.48. Chest x-ray show some cardiomegaly, and some mild pulmonary vascular congestion. Chest x-ray is largely unchanged. Progress note dated 05/09/2022. A 72-year-old male, again seen in room 267. He status post four-vessel bypass grafting, and mitral valve repair, along with a Castanon-Maze procedure. The patient has received a total of 7 units of packed red blood cells since being here in the ICU. He is currently on 2 L of oxygen. Not receiving any IV fluids. He did have an EGD yesterday, which did not reveal any active bleeding although there was blood in the gastrointestinal tract. Clinically, he is feeling a bit better today. White count 14.7, hemoglobin 6.6, hematocrit 20.7, platelet count 241,000. Sodium 137, potassium 4.1, chlorides 107, CO2 27, BUN 51, creatinine 1.27. Chest x-ray shows cardiomegaly with small right-sided effusion. Progress note dated 05/10/2022. 72-year-old male, again seen in room 267. He's on 2 L of oxygen. No IV fluids. The patient did receive another unit of packed red blood cells, making his total of 8 units. The patient sitting in a chair next to his bed. He was complaining about his blood sugars being out of control, and the fact that he was being fed to many carbohydrates. White count 12.6, hemoglobin 7.6, hematocrit 23.9, and platelet count 219,000. Sodium 139, potassium 4.2, chlorides 107, CO2 26, BUN 40, creatinine 1.33. Chest x-ray shows cardiomegaly, and some basilar atelectatic changes. Progress note dated 05/11/2022. 72-year-old male, again seen in room 267. He continues on room air, without any IV fluids. Hemoglobin this morning was 7.6. He's received a total of 8 units of packed red blood cells. Clinically, he is doing well. White count 13.1, hemoglobin 7.6, hematocrit 24.4, and platelet count 229,000. Sodium 136, potassium 4.7, chlorides 106, CO2 23, BUN 35, and creatinine 1.43. Chest x-ray shows cardiomegaly, bibasilar atelectasis, and very small pleural effusions bilaterally. Progress note dated 05/12/2022. 72-year-old male seen in room 267. He's currently on 2 L of oxygen. No IV fluids. He became more short of breath, required oxygen therapy. Previously he been on room air. He's received a total of 8 units of PRBCs since being here in the hospital. White count 13, hemoglobin 7.3, hematocrit 23, platelet count 211,000. Sodium 135, potassium 4.8, chlorides 105, CO2 25, BUN 27, and creatinine 1.24. Patient's chest x-ray shows mild fluid overload, with atelectasis at the bases, and small pleural effusions. Progress note dated 05/13/2022. 72-year-old male seen again in room 267. He's currently on 2 L of oxygen. Today's hemoglobin was only 6.5. He will receive another unit of packed red blood cells. That makes a total of 9 units. He is not receiving any IV fluids. White count 8.3, hemoglobin 6.5, hematocrit 20.8, and platelet count of 197,000. Sodium 134, potassium 4.4, chlorides 102, CO2 26, BUN 42, and cre atinine 1.33. Chest x-ray continues to show a pattern of pulmonary venous congestion. Objective - Vital Signs Vital signs: Vital Signs Temp 98.8 F 05/13/22 09:38 Pulse 85 05/13/22 10:00 Resp 25 H 05/13/22 10:00 BP 111/51 05/13/22 10:00 Pulse Ox 96 05/13/22 10:00 FiO2 100 04/22/22 16:00 Intake & Output 05/12/22 05/13/22 05/13/22 18:59 06:59 18:59 Intake Total 600 1050 500 Output Total 1100 1520 800 Balance -500 -470 -300 Weight 91.4 kg Intake: IV 200 200 100 0.9 50 DAPTOmycin 360 mg In 50 Sodium Chloride 0.9% 50 ml @ 100 mls/hr IVPB Q24H [facility] Rx#:[id number] Piperacillin-Tazobactam 3 200 100 100 .375 gm In Sodium Chloride 0.9% 100 ml @ 25 mls/hr IVPB Q8HR [facility]ULMA Rx# :[id number] Oral 400 850 400 Blood Product 0 Unit 0 Output: Urine 1100 1520 800 Other: Voiding Method Urinal Urinal # Voids 1 0 1 # Bowel Movements 1 ABP, PAP, CO, CI - Last Documented Arterial Blood Pressure 137/47 Pulmonary Artery Pressure 67/18 Cardiac Output 5.8 Cardiac Index 2.8 - Exam No acute distress, oriented 3. No audible wheezing, use of accessory muscles, or conversational dyspnea. The patient looks pale. The patient's on 2 L nasal cannula. HEENT examination is grossly unremarkable. Neck supple. Full range of motion. No adenopathy thyromegaly or neck vein distention. Cardiovascular examination reveals regular rhythm rate. S1-S2 normal. No S3 or S4. No discernible murmur noted. Heart rate is 85 bpm. Heart sounds are distant. Lungs reveal scattered bilateral rhonchi. Crackles at the bases. No wheezes. Breath sounds are equal bilaterally. Saturations are 96 %. Abdomen soft bowel sounds are heard. No masses or tenderness. Extremities are intact. No cyanosis clubbing or edema. Skin is without rash or lesion. Neurologic examination is brief but nonfocal. - Labs CBC & Chem 7: 05/13/22 04:32 05/13/22 04:32 Labs: Abnormal Lab Results - Last 24 Hours (Table) 05/12/22 05/12/22 05/12/22 Range/Units 11:24 16:59 19:52 RBC (4.30-5.90) m/uL Hgb (13.0-17.5) gm/dL Hct (39.0-53.0) % RDW (11.5-15.5) % Lymphocytes # (1.0-4.8) k/uL Sodium (137-145) mmol/L BUN (9-20) mg/dL Creatinine (0.66-1.25) mg/dL POC Glucose (mg/dL) 204 H 118 H 248 H (70-110) mg/dL Calcium (8.4-10.2) mg/dL AST (17-59) U/L ALT (4-49) U/L Total Protein (6.3-8.2) g/dL Albumin (3.5-5.0) g/dL Crossmatch 05/13/22 05/13/22 05/13/22 Range/Units 04:32 04:32 06:44 RBC 2.14 L (4.30-5.90) m/uL Hgb 6.5 L* (13.0-17.5) gm/dL Hct 20.8 L (39.0-53.0) % RDW 18.2 H (11.5-15.5) % Lymphocytes # 0.5 L (1.0-4.8) k/uL Sodium 134 L (137-145) mmol/L BUN 42 H (9-20) mg/dL Creatinine 1.33 H (0.66-1.25) mg/dL POC Glucose (mg/dL) 144 H (70-110) mg/dL Calcium 7.5 L (8.4-10.2) mg/dL AST 82 H (17-59) U/L ALT 64 H (4-49) U/L Total Protein 5.0 L (6.3-8.2) g/dL Albumin 2.6 L (3.5-5.0) g/dL Crossmatch 05/13/22 Range/Units 06:46 RBC (4.30-5.90) m/uL Hgb (13.0-17.5) gm/dL Hct (39.0-53.0) % RDW (11.5-15.5) % Lymphocytes # (1.0-4.8) k/uL Sodium (137-145) mmol/L BUN (9-20) mg/dL Creatinine (0.66-1.25) mg/dL POC Glucose (mg/dL) (70-110) mg/dL Calcium (8.4-10.2) mg/dL AST (17-59) U/L ALT (4-49) U/L Total Protein (6.3-8.2) g/dL Albumin (3.5-5.0) g/dL Crossmatch See Detail Assessment and Plan Assessment: Coronary artery disease with valvular heart disease. Status post mitral valve repair, coronary bypass grafting 3 with an SVG to the first diagonal, obtuse marginal and posterior descending coronary arteries, closure of a PFO, modified Castanon-Maze procedure and litigation of the left atrial appendage. Postoperative day #24. Acute hypoxemic respiratory failure secondary to above. Currently on 2 L nasal cannula. Paroxysmal atrial fibrillation. Chronic and ongoing tobacco dependence. Chronic obstructive pulmonary disease, FEV1 value of 52% of predicted. Acute on chronic anemia, status post 9 units of PRBC's. Osteoarthritis. Diabetes mellitus. Hyperlipidemia. Plan: Plan dated 04/22/2022. The patient will absolutely not wearing the BiPAP device. The patient is on dopamine, Lasix drip, and insulin drip. Today is postop day #3. Labs, x-rays, and medications are reviewed. The patient's overall prognosis remains guarded. We will continue to follow and make recommendations along the way. The patient continues on DVT and GI prophylaxis. He continues on breathing treatments. Prognosis is guarded. Plan dated 05/07/2022. The patient is receiving his sixth unit of blood. Surgery has been consulted for his ongoing anemia, and suspected GI bleed. We will continue to follow this patient and make recommendations along the way. Labs, x-rays, and medications are reviewed. Clinically, the patient looks reasonable, but pale. He's been weaned down to 2 L of oxygen. Prognosis is guarded. Plan dated 05/08/2022. The patient is currently receiving his seventh unit of blood. He is scheduled for an EGD today. He's on 2 L of oxygen. No IV fluids. The patient's overall prognosis remains very guarded. We will continue to follow make recommendations along the way. Labs, x-rays, and medications are all reviewed. Plan dated 05/09/2022. The patient appears to be doing a bit better today. He's received a total of 7 units of PRBCs. He had an EGD yesterday. His sacral decubitus ulcer was also debrided yesterday. Labs, x-rays, and medications are reviewed. We will continue to follow. Prognosis is guarded. He still a bit anemic today, but no additional decision has been made about additional blood at this time. We will continue to follow make recommendations along the way. Plan dated 05/10/2022. The patient appears to be doing about the same to slightly better. He did receive 1 additional unit of blood. That makes a total of 8 units of packed red blood cells. The patient's on 2 L of oxygen. No IV fluids. His hemoglobin this morning was 7.6. We will continue to follow. His blood glucose today was better at 108. Labs, x-rays, and medications are reviewed. Prognosis is guarded. Plan dated 05/11/2022. The patient is currently on room air. He appears relatively stable. Today's morning hemoglobin is 7.6. No additional blood transfusions are planned. We will continue to follow. Prognosis is guarded. Labs, x-rays, and medications are all reviewed. Plan dated 05/12/2022. The patient was on room air. Yesterday/last night, he became more short of breath and was placed on 2 L. No IV fluids. Labs, x-rays, and medications are reviewed. Prognosis is certainly guarded. He has received a total of 8 units of blood since being here in the hospital. Follow make recommendations along the way. Prognosis is certainly guarded. Plan dated 05/13/2022. The patient will receive another unit of blood today. His hemoglobin this morning was 6.5. He is on 2 L. No IV fluids. The patient is obviously getting very frustrated. The patient is postop day #24. Labs, x-rays, and medications are reviewed. No additional recommendations are made. From the pulmonary standpoint, the patient remains relatively stable although his chest x-ray continues to show a pattern of fluid overload. Time with Patient: Less than 30
[2022-05-13] MEDS ORDERED: SODIUM FERRIC GLUCONAT-SUCROSE 125 MG in SODIUM CHLORIDE 0.9% 100 ML IVPB ONE (12:00)
[2022-05-13 12:14] LABS: Glucose,Whole Blood 164 mg/dL (70-110)
[2022-05-13] MEDS: ACETAMINOPHEN TAB 325 MG TAB PO PRN (12:24)
[2022-05-13] MEDS: ONDANSETRON 4 MG/2 ML VIAL IVP PRN ×2 (14:12→20:09)
--- NOTE | 2022-05-13 15:24 | P.PN ---
Progress Note - Text Progress Note Date: 05/13/22 Patient is a pleasant 72-year-old male came in the for elective mitral valve repair, CABG x 3 vessel, maze procedure, PFO closure. Patient is extubated sitting in the chair patient still has a [place]-V[place]hese catheter, CVP of around 12, cardiac index 3.1 patient creatinine went up to 1.70 resulting elevated potassium of 5.5 patient is off pressor support, off nitro drip patient still has 2 mediastinal and one left-sided chest tube. 04/21/2022 Patient is evaluated in ICU today, sitting up in chair. He is postoperative day #2 for elective mitral valve repair, hematocrit bypass grafting maze procedure and PFO closure. He is on BiPAP with fio2 of 40% Continues with mediastinal/left pleural chest tubes. Continue with indwelling catheter. Received dose of IV albumin yesterday afternoon. Chest xray today showing ongoing mild pulmonary vascular congestion, increasing patchy bibasilar opacities, atelectasis vs. pulmonary edema. Currently on lasix gtt at 10mls/hr, continues on dopamine gtt at 3.68 mls/hr. Continues on insulin gtt and blood glucose remains in the 140 to 130s. Labs today showing sodium 132, potassium 6.1 improved to 5.4, BUN 41, creatinine 2.53, elevated liver enzymes. Hgb 7.3. 04/22/2022 Patient continues to be monitored closely in intensive care unit, he is postoperative day #3 for elective mitral valve repair, maze procedure, PFO closure. Managed by primary team. He had limited echocardiogram completed showing EF 45 to 50%, mild to moderate MR, moderate pulmonary hypertension with moderate TR. Chest xray today shows slight improvement in pulmonary vascular congestion. Maintained on lasix gtt at 10mls/hr, dopamine gtt, Continues with 2 mediastinal chest tubes. Continues with indwelling catheter. Continues with right IJ swan/cordis, right radial arterial line. He has been weaned off BiPAP currently on high flow cannula at 15L. He has been tolerating some diet. Continues on insulin gtt which will continue until his diet stabilizes. Current glucose in the 140s. Creatinine today 3.14. April 23: [facility] In a recliner. Tired. Little oral intake. Nasal cannula. Drips include IV dopamine and Lasix. Some shortness of breath. Mooney catheter. 04/24/2022: ICU. Up. 4 L nasal cannula. Did eat better. Edema present. On the Lasix drip 5 mg an hour. Some improvement in creatinine. 04/25/2022: ICU. Up in a recliner. Eating better. at the bedside. Edema present. Off Lasix drip. Feeling better. Creatinine coming down. LFTs improving. Home dose of Victoza was started 04/26/2022: ICU. Up in a recliner. 4 L nasal cannula. Eating about 50%. Accu-Cheks noted. 04/27/2022: ICU: Patient went into atrial fibrillation overnight. Put on oral amiodarone and Lopressor per CTS.. Some worsening of shortness of breath. Placed on IV Lasix. Eating some. Up in a recliner. 04/28/2022: ICU. Patient received Lopressor today for the A. fib. Patient went down into sinus rhythm. Blood pressure also dropped her was 70 systolic. Oxygen increased to 4 L. Short of breath. Patient did walk 10-12 steps up to the door. Eating fair. Lower extremity edema edema present. Up in a chair. Tired. 04/29/2022: ICU. Short of breath. 3 L nasal cannula. Eating fair. Edema pre sent. Getting Bumex. Getting IV albumin and IV calcium. Using incentive spirometry. Up in a chair. Discussed with at the bedside. Increasing white count, infiltrated urine chest x-ray suggestive of pneumonia. Started on IV cefepime 04/30/2022: ICU. Remains short of breath. 3 L nasal cannula. Started on IV cefepime yesterday.. Oral intake fair. Edema present. Remains on Bumex. Fo sher catheter. Discussed with patient and at the bedside. Discussed with Dr. Cortez from cardiothoracic surgery. 05/01/2022: ICU. Zaroxolyn was added. Good diuresis. Breathing better. On IV cefepime. Left paracentesis is done. 850 mL removed. Oral intake fair. Breathing a bit better. Telemetry shows sinus rhythm. 2 L nasal cannula. at the bedside. Will DC Actos. Even though smaller dose. Given CHF renal failure. Increase Lantus to 12 units. 05/02/2022: ICU. Over 3 is a negative fluid balance. Last 24 hours. Some improvement in breathing. Oral intake fair. Remains in atrial fibrillation controlled. 2 L nasal cannula. Add Diamox. 4 metabolic alkalosis 05/03/2022: ICU. This morning patient became short of breath. Dr. Chen from [place] consulted for sacral decub. Remains on IV cefepime. Oral intake fair. Had a BM. On IV Bumex. I discussed with Dr. Aguilar from pulmonary. Patient is known to him. Advanced COPD. His right lung changes are chronic. Has had previous CAT scans. He may have had a located effusion. 05/04/2022: ICU. Breathing a bit better. Hemoglobin dropped to 6.1. Awaiting transfusion. Tolerating diet. On IV cefepime. Patient started on IV eraxis by Dr. Prescott from [place]. 05 May 2022: ICU. Patient received a unit of blood yesterday evening. Getting another unit of blood today. Breathing better. Remains on IV Bumex. IV cefepime discontinued. Remains on IV Eraxis. Oral intake fair. Up in a chair. at the bedside. Increase Levemir to 20 units at night. 05/06/2022: ICU. Patient received a 3rd unit blood this morning. Breathing better. Had some blood in his urine. On 2 L is cannula. Sitting up in a chair, eating better. Some cough with brownish sputum. 05/07/2022: ICU. Up in a chair. Eating better. On 2 L nasal cannula. On IV daptomycin. IV Zosyn. Has had dark stools but is on iron. We'll hold off oral iron to see if stool color lightens. Add NovoLog 5 units scheduled with meals. Hemoglobin dropped again to 6.2. Received 1 unit of blood today. 05/08/2022: ICU. Seen by me this morning. Hemoglobin further dropped again. 5.9. Data patient underwent EGD by Dr. Fiore. Fresh blood seen in the third and fourth portion of duodenum of blood clots noted. No obvious source noted. Patient is on PPI. Also sacral decub ulcer abscess also drained. Patient received a unit of blood this morning. Discussed with Neema from cardiothoracic team. Patient does not like hospital food. has been free eating food from outside. Including [employer] fish [employer] etc. Difficult to control Accu- Cheks. Concerned the patient may become hypoglycemic if a more aggressive. farxiga is being added. 05/09/2022: ICU. No further drop in hemoglobin after blood transfusion yesterday. Patient is off eliquis. Had a dark stool today. Oral intake fair. On 2 L nasal cannula. On IV daptomycin IV Zosyn. 05/10/2022: ICU. Patient had no further drop in hemoglobin. Had a black stool. Off oxygen. Eating well. Accu-Cheks will stabilize. On IV daptomycin IV Zosyn. Sputum growing Margo albicans and Aspergillus fumigators. We'll decrease Levemir to 16 units. Decreased scheduled NovoLog to 3 units with meals. 05/11/2022: ICU. Patient was short of breath this morning. Remains on IV Bumex. Had black stool today. Hemoglobin remained stable. Accu-Cheks followed. Levemir cutback to 12 units at night. Remains on IV daptomycin IV Zosyn. Up in a chair. 05/12/2022: ICU. Some shortness of breath. On 2 L nasal cannula. Hemoglobin remained stable. Oral intake fair. On IV daptomycin and IV Zosyn. Up in a chair. at the bedside. 05/13/2022: ICU. Patient continues to be a bit short of breath. IV Bumex. Remains on IV daptomycin IV Zosyn. Some cough. Tired. Continues to have dark stools. Hemoglobin dropped again to 6.5. Received a unit of blood this morning. GI Dr. Michelle Ramos's been consulted. Accu-Cheks running low lower side. DC Levemir. Active Medications Acetaminophen (Acetaminophen Tab 325 Mg Tab) 650 mg PO Q6HR PRN PRN Reason: Fever and/ or Mild Pain Last Admin: 05/13/22 12:24 Dose: 650 mg Hydrocodone Bitart/Acetaminophen (Hydrocodone/Apap 5-325mg 1 Each Tab) 1 each PO Q4HR PRN PRN Reason: Moderate Pain (Scale 4 to 6) Last Admin: 05/13/22 05:15 Dose: 1 each Albuterol/Ipratropium (Ipratropium-Albuterol 3 Ml Neb) 3 ml INHALATION RT-Q2H PRN PRN Reason: Shortness Of Breath Or Wheezing Last Admin: 05/13/22 03:55 Dose: 3 ml Albuterol/Ipratropium (Ipratropium-Albuterol 3 Ml Neb) 3 ml INHALATION RT-QID [facility] Last Admin: 05/13/22 11:02 Dose: 3 ml Ascorbic Acid (Ascorbic Acid 500 Mg Tab) 500 mg PO DAILY [facility] Last Admin: 05/13/22 09:03 Dose: 500 mg Aspirin (Aspirin 81 Mg) 81 mg PO DAILY [facility] Last Admin: 05/13/22 09:03 Dose: 81 mg Benzocaine/Menthol (Benzocaine/Menthol Lozeng 1 Each Lozenge) 1 each MUCOUS MEM Q2HR PRN PRN Reason: Sore Throat Last Admin: 05/13/22 12:25 Dose: 1 each Bisacodyl (Bisacodyl 10 Mg Supp) 10 mg RECTAL DAILY PRN PRN Reason: Constipation Last Admin: 05/09/22 09:10 Dose: 10 mg Budesonide/Formoterol Fumarate (Symbicort 160-4.5 Mcg Inhaler) 2 puff INHALATION RT-BID [facility] Last Admin: 05/13/22 07:54 Dose: 2 puff Bumetanide (Bumetanide 0.25 Mg/Ml 10 Ml Vial) 2 mg IV DAILY [facility] Dapagliflozin (Dapagliflozin Propanediol 5 Mg Tablet) 5 mg PO DAILY [facility] Last Admin: 05/13/22 09:03 Dose: 5 mg Dextrose/Water (Dextrose 50% Syringe 50 Ml) 25 ml IVP PER PROTOCOL PRN; Protocol PRN Reason: Hypoglycemia Dextrose/Water (Dextrose 50% Syringe 50 Ml) 50 ml IVP PER PROTOCOL PRN; Protocol PRN Reason: Hypoglycemia Guaifenesin/Dextromethorphan (Guaifenesin-Dm 600/30mg 1 Each Tab.Er.12h) 1 each PO Q12HR [facility] Last Admin: 05/13/22 09:03 Dose: 1 each Daptomycin 360 mg/ Sodium (Chloride) 50 mls @ 100 mls/hr IVPB Q24H [facility]; Protocol Last Admin: 05/12/22 23:16 Dose: 100 mls/hr Piperacillin Sod/Tazobactam (Sod 3.375 gm/ Sodium Chloride) 100 mls @ 25 mls/hr IVPB Q8HR [facility]; Protocol Last Admin: 05/13/22 08:10 Dose: 25 mls/hr Insulin Aspart (Insulin Aspart (Novolog) 100 Unit/Ml Vial) 0 unit SQ ACHS [facility]; Protocol Last Admin: 05/13/22 12:16 Dose: 2 unit Lidocaine (Lidocaine 5% Patch) 2 patch TOPICAL DAILY [facility]; Protocol Last Admin: 05/13/22 09:04 Dose: 2 patch Magnesium Hydroxide (Magnesium Hydroxide 2,400 Mg/10 Ml Cup) 2,400 mg PO BID PRN PRN Reason: Constipation Last Admin: 04/22/22 07:08 Dose: 2,400 mg Metoprolol Tartrate (Metoprolol Tartrate 25 Mg Tab) 25 mg PO BID [facility] Last Admin: 05/13/22 12:17 Dose: Not Given Miscellaneous Information (Potassium Replacement Protocol 1 Each Misc) 1 each MISCELLANE DAILY PRN; Protocol PRN Reason: Per Protocol Miscellaneous Information (Magnesium Replacement Protocol 1 Each Misc) 1 each MISCELLANE DAILY PRN; Protocol PRN Reason: Per Protocol Non-Formulary Medication (Non Formulary Drug) 1 each SQ DAILY [facility] Last Admin: 05/13/22 09:02 Dose: 1 each Ondansetron HCl (Ondansetron 4 Mg/2 Ml Vial) 4 mg IVP Q6HR PRN PRN Reason: Nausea And Vomiting Last Admin: 05/13/22 14:12 Dose: 4 mg Pantoprazole Sodium (Pantoprazole 40 Mg/10 Ml Vial) 40 mg IVP BID [facility] Last Admin: 05/13/22 09:04 Dose: 40 mg Potassium Chloride (Potassium Chloride Er 10 Meq Tab.Er.Prt) 10 meq PO DAILY [facility] Last Admin: 05/13/22 09:04 Dose: 10 meq Senna/Docusate Sodium (Sennosides-Docusate Sodium 1 Each Tab) 2 each PO HS [facility] Last Admin: 05/12/22 20:19 Dose: 2 each Sodium Chloride (Sodium Chloride 0.9% Flush 10 Ml Syringe) 10 ml IV BID [facility] Last Admin: 05/13/22 09:05 Dose: 10 ml Tamsulosin HCl (Tamsulosin 0.4 Mg Cap.Er.24h) 0.4 mg PO PC-BRKFST [facility] Last Admin: 05/13/22 09:03 Dose: 0.4 mg On examination: VITAL SIGNS: 98.3, 82, 18, 97/48, 92% room air GENERAL APPEARANCE: Up in chair, mild short of breath HEENT: Normal external appearance of nose and ear. Oral cavity normal EYES: Pupils equal. Conjunctiva normal. NECK: JVD not raised. Mass not palpable. RESPIRATORY: Respiratory effort increased. Lungs diminished breath sounds. CARDIOVASCULAR: First and second sounds normal. Edema present ABDOMEN: Soft. Liver and spleen not palpable. No tenderness. No mass palpable. Sacral decub. Using a donut PSYCHIATRY: AO 3, mood and affect normal INVESTIGATIONS, reviewed in the clinical context: 05/13/2022: White count 8.3 hemoglobin 6.5 platelets 197 potassium 4.4 BUN 42 creatinine 1.33 05/12/2022: WBC 13 hemoglobin 7.3 potassium 4.8 creatinine 1.24 05/11/2022: WBC 13.1 hemoglobin 7.6 platelets 229 potassium 4.7 BUN 35 creatinine 1.43 05/10/2022: WBC 12.6-year-old globin 10.6 potassium 4.2 BUN 40 creatinine 1.33 05/09/2022: WBC 14.70 globin 6.6 platelets 241 potassium 4.1. 51 and creatinine 1.27 05/08/2022: WBC 14.9 hemoglobin 5.9 platelets 27 BUN 68 creatinine 1.48 05/07/2022: WBC 23.1 hemoglobin 6.2 platelets 334 potassium 4.2 BUN 77 creatinine 1.48 AST 69 ALT 70 05/06/2022: WBC 19.7 hemoglobin 6.2 platelets 322 potassium 3.8. 83 creatinine 1.50 05/05/2022: WBC 18.1 hemoglobin 6.7 potassium 4. 85 creatinine 1.46 05/04/2022: WBC 16 hemoglobin 6.1 platelets 362 potassium 3.7 BUN 75 creatinine 1.75 Limited 2-D echocardiogram [May 01]: EF 45%. [id number] MR, moderate aortic stenosis 05/01/2022: WBC 15.3 hemoglobin 7.2 platelets 305 potassium 4. [address] chest [April 29]: Moderate partial obliterate right pleural effusion, left pleural effusion, cardiomegaly. 04/24/2022: WBC 9.2 hemoglobin 7.1 platelets 122 potassium 5.1 BUN 77 creatinine 2.97 AST 1270 ALT 1038 WBC 8.2 hemoglobin 7.5 platelets 111 sodium 135 progression 6 BUN 67 creatinine 3.43 AST 3595 ALT 1512 Limited 2-D echocardiogram: EF 45-50%. Inferior wall hypokinesis. Moderate MR. Moderate pulmonary hypertension with moderate TR. Assessment and plan -Acute on chronic congestive heart exacerbation from systolic/diastolic dysfunction EF 45-50%:, precipitated by A. fib: Better Bumex 2 mg IV daily-pneumonia, short of breath, infiltrate on chest x-ray, increasing white count and procalcitonin: Better IV cefepime-completed -Acute hypoxic respiratory failure from pulmonary edema/pneumonia: Better 93% on 2 L -Diabetes Mellitus type 2 , better. Victoza , . DC Levemir DC scheduled NovoLog. farxiga 5 mg -Paroxysmal atrial fibrillation status post modified [place]-Maze procedure,: With rapid ventricular rate: Now - sinus rhythm amiodarone ,Lopressor. Eliquis held because of GI bleed -Acute GI bleed from the third and fourth portion of duodenum: Continues. EGD encountered fresh blood with blood clots. No obvious source noted. Patient is on aspirin. Eliquis held . Patient received about 8 units of blood -acute renal failure on chronic kidney disease stage II with renal failure is probably prerenal azotemia, cardiorenal syndrome.: Creatinine peaked at 3.43. Creatinine 1.46 -hyperkalemia secondary to acute renal failure: Corrected Received Lokelma. Renal diet -Acute hepatitis, likely ischemic: Better Follow closely. GI services not available in the hospital. Hold any hepatic offensive medications. Follow LFTs patient as patient started back on amiodarone -Acute COPD exacerbation, in a smoker DuoNeb. Symbicort -Hyperlipidemia Lipitor -Sacral decubitus ulcer: With abscess. Large abscess was encountered. 12 x 10 x 4 cm deep. Cleaned out by Dr. Fiore 05/08/2022. Follow with ID. On IV daptomycin, IV Zosyn -Metabolic alkalosis from diuresis Was on Diamox - coronary artery disease with previous PCI Aspirin, Imdur, Lopressor -Acute postprocedure blood loss anemia as expected from surgery, also hospital- acquired anemia from blood draws Received PRBC -Chronic nicotine dependence - post mitral valve failure, status post CABG, status post PFO closure: Currently [id number] MR -Moderate aortic stenosis -Moderate secondary pulmonary hypertension DC Levemir and scheduled NovoLog. GI Dr. Michelle Ramos consulted. Other medications to continue. Discussed with the patient . Received a unit of blood today.
[2022-05-13 15:40] LABS: Anisocytosis Slight; HCT 22.4 % (39.0-53.0); HGB 7.2 gm/dL (13.0-17.5); Hypochromasia Marked; MCH 30.4 pg (25.0-35.0); MCV 94.8 fL (80.0-100.0); Mean Platelet Volume 8.6; Platelet Count 203 k/uL (150-450); Poikilocytosis Moderate; RBC 2.37 m/uL (4.30-5.90); RDW 16.9 % (11.5-15.5); WBC 7.5 k/uL (3.8-10.6)
--- NOTE | 2022-05-13 15:41 | P.PN ---
Subjective Progress Note Date: 05/13/22 Principal diagnosis: Leukocytosis Patient is a 72-year-old male electively admitted to the hospital 04/19/2022 for mitral valve repair and coronary bypass grafting 3 and this patient has been afebrile however noticed to have worsening leukocytosis. Patient has been evaluated by general surgery and is scheduled for EGD and debridement of the sacral wound Completed on 05/08/2022 unfortunately abscess was drained but no cultures were obtained. On today's evaluation that is 05/13/2022 patient remains to be afebrile, the patient is breathing comfortably on room air, the patient denies chest pain he did have occasional cough but not bringing up any sputum denies any nausea no vomiting no abdominal pain or any worsening pain to the sacral wound area Objective - Vital Signs Vital signs: Vital Signs Temp 98.3 F 05/13/22 12:00 Pulse 78 05/13/22 14:00 Resp 23 05/13/22 14:00 BP 120/57 05/13/22 14:00 Pulse Ox 94 L 05/13/22 14:00 FiO2 100 04/22/22 16:00 Intake & Output 05/12/22 05/13/22 05/13/22 18:59 06:59 18:59 Intake Total 600 1050 1320 Output Total 1100 1520 1550 Balance -500 -470 -230 Weight 91.4 kg Intake: IV 200 200 100 0.9 50 DAPTOmycin 360 mg In 50 Sodium Chloride 0.9% 50 ml @ 100 mls/hr IVPB Q24H [facility] Rx#:[id number] Piperacillin-Tazobactam 3 200 100 100 .375 gm In Sodium Chloride 0.9% 100 ml @ 25 mls/hr IVPB Q8HR [facility] Rx# :[id number] Oral 400 850 600 Blood Product 620 Rc As-1 Unit 310 [id number] Output: Urine 1100 1520 1550 Other: Voiding Method Urinal Urinal Urinal # Voids 1 0 1 # Bowel Movements 1 1 ABP, PAP, CO, CI - Last Documented Arterial Blood Pressure 137/47 Pulmonary Artery Pressure 67/18 Cardiac Output 5.8 Cardiac Index 2.8 - Exam GENERAL DESCRIPTION: An elderly male up in the chair in no distress RESPIRATORY SYSTEM: Unlabored breathing , decreased breath sounds at bases HEART: S1 S2 regular rate and rhythm , ABDOMEN: Soft , no tenderness Stages the sacral pressure ulcer with some slough tissue at base and surrounding redness some foul-smelling EXTREMITIES: 2+ edema feet - Labs CBC & Chem 7: 05/13/22 04:32 05/13/22 04:32 Labs: Abnormal Lab Results - Last 24 Hours (Table) 05/12/22 05/12/22 05/13/22 Range/Units 16:59 19:52 04:32 RBC 2.14 L (4.30-5.90) m/uL Hgb 6.5 L* (13.0-17.5) gm/dL Hct 20.8 L (39.0-53.0) % RDW 18.2 H (11.5-15.5) % Lymphocytes # 0.5 L (1.0-4.8) k/uL Sodium (137-145) mmol/L BUN (9-20) mg/dL Creatinine (0.66-1.25) mg/dL POC Glucose (mg/dL) 118 H 248 H (70-110) mg/dL Calcium (8.4-10.2) mg/dL AST (17-59) U/L ALT (4-49) U/L Total Protein (6.3-8.2) g/dL Albumin (3.5-5.0) g/dL Crossmatch 05/13/22 05/13/22 05/13/22 Range/Units 04:32 06:44 06:46 RBC (4.30-5.90) m/uL Hgb (13.0-17.5) gm/dL Hct (39.0-53.0) % RDW (11.5-15.5) % Lymphocytes # (1.0-4.8) k/uL Sodium 134 L (137-145) mmol/L BUN 42 H (9-20) mg/dL Creatinine 1.33 H (0.66-1.25) mg/dL POC Glucose (mg/dL) 144 H (70-110) mg/dL Calcium 7.5 L (8.4-10.2) mg/dL AST 82 H (17-59) U/L ALT 64 H (4-49) U/L Total Protein 5.0 L (6.3-8.2) g/dL Albumin 2.6 L (3.5-5.0) g/dL Crossmatch See Detail 05/13/22 Range/Units 12:13 RBC (4.30-5.90) m/uL Hgb (13.0-17.5) gm/dL Hct (39.0-53.0) % RDW (11.5-15.5) % Lymphocytes # (1.0-4.8) k/uL Sodium (137-145) mmol/L BUN (9-20) mg/dL Creatinine (0.66-1.25) mg/dL POC Glucose (mg/dL) 164 H (70-110) mg/dL Calcium (8.4-10.2) mg/dL AST (17-59) U/L ALT (4-49) U/L Total Protein (6.3-8.2) g/dL Albumin (3.5-5.0) g/dL Crossmatch Assessment and Plan (1) Leukocytosis Current Visit: Yes Status: Acute Code(s): D72.829 - ELEVATED WHITE BLOOD CELL COUNT, UNSPECIFIED SNOMED Code(s): 926242515 Plan: 1patient with a leukocytosis in this patient who is postop mitral valve repair and CABG x3 patient did not have any fever during this hospital stay and the white count has been slowly creeping up over the last 5 days source possible cath versus UTI versus his sacral pressure ulcer, patient started as well as vein grafting sites looks clean without evidence of any cellulitis he did have a thoracocentesis with fluid does not look infected and cultures subsequently negative. 2 blood cultures are negative. 3patient likely source of elevated white count is infected sacral pressure ulcer, , Patient is status post surgical debridement of the sacral pressure ulcer with evidence of abscess unfortunately no cultures were done as we do not have any culture data to narrow his antibiotics, the patient white count has normalized, we will continue the patient on Zosyn and daptomycin, planning for at least 2 week course on discharge Time with Patient: Less than 30
[2022-05-13 16:36] LABS: Glucose,Whole Blood 107 mg/dL (70-110)
[2022-05-13 19:46] LABS: Glucose,Whole Blood 206 mg/dL (70-110)
[2022-05-13] MEDS: SENNOSIDES-DOCUSATE SODIUM 1 EACH TAB PO SCH (20:01)
[2022-05-14] MEDS: BENZOCAINE/MENTHOL LOZENG 1 EACH LOZENGE MUCOUS MEM PRN ×2 (00:12→16:00)
[2022-05-14] MEDS: IPRATROPIUM-ALBUTEROL 3 ML NEB INHALATION PRN (03:44)
[2022-05-14] MEDS: HYDROcodone/APAP 5-325MG 1 EACH TAB PO PRN ×3 (04:23→23:58)
[2022-05-14] MEDS: SYMBICORT 160-4.5 MCG INHALER INHALATION SCH ×2 (06:17→20:44)
[2022-05-14] MEDS: IPRATROPIUM-ALBUTEROL 3 ML NEB INHALATION SCH ×4 (06:17→20:44)
[2022-05-14 06:52] LABS: Glucose,Whole Blood 149 mg/dL (70-110)
[2022-05-14] MEDS: INSULIN ASPART (NovoLOG) 100 UNIT/ML VIAL SQ SCH ×4 (07:04→20:18)
[2022-05-14 07:16] LABS: Anisocytosis Slight; Basophils # (A) 0.1 k/uL (0-0.2); Basophils % (A) 1 %; Eosinophils % (A) 1 %; HCT 22.3 % (39.0-53.0); HGB 7.2 gm/dL (13.0-17.5); Hypochromasia Marked; Lymphocytes # (A) 0.3 k/uL (1.0-4.8); Lymphocytes % (A) 4 %; MCH 30.5 pg (25.0-35.0); MCHC 32.1 g/dL (31.0-37.0); MCV 95.1 fL (80.0-100.0); Mean Platelet Volume 8.6; Monocytes # (A) 0.6 k/uL (0-1.0); Monocytes % (A) 8 %; Neutrophils # (A) 5.9 k/uL (1.3-7.7); Neutrophils % (A) 84 %; Platelet Count 215 k/uL (150-450); Poikilocytosis Moderate; RBC 2.35 m/uL (4.30-5.90); WBC 7.1 k/uL (3.8-10.6)
[2022-05-14 07:38] LABS: Albumin 2.5 g/dL (3.5-5.0); Calcium 7.3 mg/dL (8.4-10.2); Total Bilirubin 0.6 mg/dL (0.2-1.3); Total Protein 4.8 g/dL (6.3-8.2)
--- NOTE | 2022-05-14 07:55 | P.PN ---
Subjective Progress Note Date: 05/14/22 PROGRESS NOTE The patient is a 72-year-old male with a known history of CAD, atrial fibrillation, coronary disease and mitral valve disease who underwent CABG with SVG to the diagonal branch, obtuse marginal branch and PDA, mitral valve repair with closure of PFO and modified Castanon procedure with ligation of the left atrial appendage, performed by Dr. Raines on April 19. His postoperative course has been complicated by recurrent bleeding, requiring multiple transfusion, dyspnea and fatigue. He continues to feel weak and dyspneic although slightly better. He is scheduled to be seen by Dr. Ramos today for further evaluation of his GI status. He denies any chest discomfort, dizziness or palpitations. His urinary output has been stable. He has not been anticoagulated because of the recurrent GI bleeding. Hemodynamically he is stable. He denies any nausea or vomiting. His chest x-ray shows mild congestion. Medications: Aspirin 81 mg daily, Bumex 2 mg IV daily, metoprolol 25 mg twice a day, Flomax once a day PHYSICAL EXAMINATION: Blood pressure 105/50 heart rate 80 LUNGS: Mild decrease in the breath sounds at the bases HEART: Regular rate and rhythm, S1, S2. No S3. systolic murmur at the base ABDOMEN: Soft, nontender, no organomegaly EXTREMETIES: 1+ edema LAB: Hemoglobin 7.2, BUN 34, creatinine 1.33. AST 77, ALT 62. Patient had acute liver injury post surgery. His renal function have improved IMPRESSION: 1. Status post CABG with mitral valve repair and closure of left atrial appendage 2. Recurrent anemia with GI bleeding 3. History of paroxysmal atrial fibrillation 4. History of COPD 5. Physical deconditioning post surgery 6. History of hyperlipidemia PLAN: 1. Await GI input 2. Restart statin 3. Continue incentive spirometry 4. Follow hemoglobin and transfuse as needed 5. Depending on his progress further recommendations to be made. Objective - Vital Signs Vital signs: Vital Signs Temp 98.9 F 05/14/22 04:00 Pulse 85 05/14/22 07:00 Resp 25 H 05/14/22 07:00 BP 105/50 05/14/22 07:00 Pulse Ox 97 05/14/22 07:00 FiO2 100 04/22/22 16:00 Intake & Output 05/13/22 05/14/22 05/14/22 18:59 06:59 18:59 Intake Total 1420 460 Output Total 1850 720 Balance -430 -260 Weight 91.7 kg Intake: IV 200 160 0.9 10 DAPTOmycin 360 mg In 50 Sodium Chloride 0.9% 50 ml @ 100 mls/hr IVPB Q24H [facility] [place] Rx#:[id number] Piperacillin-Tazobactam 3 200 100 .375 gm In Sodium Chloride 0.9% 100 ml @ 25 mls/hr IVPB Q8HR [facility] Rx# :[id number] Oral 600 300 Blood Product 620 Rc As-1 Unit 310 [id number] Output: Urine 1850 720 Other: Voiding Method Urinal Urinal # Voids 1 1 # Bowel Movements 1 1 ABP, PAP, CO, CI - Last Documented Arterial Blood Pressure 137/47 Pulmonary Artery Pressure 67/18 Cardiac Output 5.8 Cardiac Index 2.8 - Labs CBC & Chem 7: 05/14/22 06:08 05/14/22 06:08 Labs: Abnormal Lab Results - Last 24 Hours (Table) 05/13/22 05/13/22 05/13/22 Range/Units 06:46 12:13 15:04 RBC 2.37 L (4.30-5.90) m/uL Hgb 7.2 L (13.0-17.5) gm/dL Hct 22.4 L (39.0-53.0) % RDW 16.9 H (11.5-15.5) % Lymphocytes # (1.0-4.8) k/uL Sodium (137-145) mmol/L BUN (9-20) mg/dL Creatinine (0.66-1.25) mg/dL Glucose (74-99) mg/dL POC Glucose (mg/dL) 164 H (70-110) mg/dL Calcium (8.4-10.2) mg/dL AST (17-59) U/L ALT (4-49) U/L Total Protein (6.3-8.2) g/dL Albumin (3.5-5.0) g/dL Crossmatch See Detail 05/13/22 05/14/22 05/14/22 Range/Units 19:44 06:08 06:08 RBC 2.35 L (4.30-5.90) m/uL Hgb 7.2 L (13.0-17.5) gm/dL Hct 22.3 L (39.0-53.0) % RDW 17.0 H (11.5-15.5) % Lymphocytes # 0.3 L (1.0-4.8) k/uL Sodium 134 L (137-145) mmol/L BUN 34 H (9-20) mg/dL Creatinine 1.33 H (0.66-1.25) mg/dL Glucose 116 H (74-99) mg/dL POC Glucose (mg/dL) 206 H (70-110) mg/dL Calcium 7.3 L (8.4-10.2) mg/dL AST 77 H (17-59) U/L ALT 62 H (4-49) U/L Total Protein 4.8 L (6.3-8.2) g/dL Albumin 2.5 L (3.5-5.0) g/dL Crossmatch 05/14/22 Range/Units 06:50 RBC (4.30-5.90) m/uL Hgb (13.0-17.5) gm/dL Hct (39.0-53.0) % RDW (11.5-15.5) % Lymphocytes # (1.0-4.8) k/uL Sodium (137-145) mmol/L BUN (9-20) mg/dL Creatinine (0.66-1.25) mg/dL Glucose (74-99) mg/dL POC Glucose (mg/dL) 149 H (70-110) mg/dL Calcium (8.4-10.2) mg/dL AST (17-59) U/L ALT (4-49) U/L Total Protein (6.3-8.2) g/dL Albumin (3.5-5.0) g/dL Crossmatch
--- NOTE | 2022-05-14 08:03 | XR ---
EXAMINATION TYPE: XR chest 1V portable DATE OF EXAM: 05/14/2022 5:59 AM COMPARISON: Chest radiograph from one day prior. TECHNIQUE: XR chest 1V portable Portable AP radiograph of the chest. CLINICAL INDICATION:Male, 72 years old with history of post op cardiac surgery; FINDINGS: Lungs/Pleura: Bibasilar atelectasis. There is no evidence of focal consolidation, or pneumothorax. T here is blunting of the costophrenic angles. Pulmonary vascularity: Unremarkable. Heart/mediastinum: Cardiomediastinal silhouette is enlarged and stable. Post valve repair changes. Musculoskeletal: No acute osseous pathology. IMPRESSION: Stable exam with bibasilar atelectasis. Trace bilateral pleural effusions.
[2022-05-14] MEDS: PIPERACILLIN-TAZOBACTAM 3.375 GM in SODIUM CHLORIDE 0.9% 100 ML IVPB SCH ×3 (08:52→23:58)
[2022-05-14] MEDS: PANTOPRAZOLE 40 MG/10 ML VIAL IVP SCH ×2 (08:56→20:14)
[2022-05-14] MEDS: TAMSULOSIN 0.4 MG CAP.ER.24H PO SCH (08:58)
[2022-05-14] MEDS: ASCORBIC ACID 500 MG TAB PO SCH (08:58)
[2022-05-14] MEDS: ASPIRIN 81 MG PO SCH (08:58)
[2022-05-14] MEDS: ATORVASTATIN 20 MG TAB PO SCH (08:58)
[2022-05-14] MEDS: POTASSIUM CHLORIDE ER 10 MEQ TAB.ER.PRT PO SCH (08:58)
[2022-05-14] MEDS: BUMETANIDE 0.25 MG/ML 10 ML VIAL IV SCH (08:59)
[2022-05-14] MEDS: METOPROLOL TARTRATE 25 MG TAB PO SCH ×2 (09:03→20:14)
[2022-05-14] MEDS: DAPAGLIFLOZIN PROPANEDIOL 5 MG TABLET PO SCH (09:03)
[2022-05-14] MEDS: LIDOCAINE 5% PATCH TOPICAL SCH (09:03)
[2022-05-14] MEDS: SODIUM FERRIC GLUCONAT-SUCROSE 125 MG in SODIUM CHLORIDE 0.9% 100 ML IVPB SCH (09:38)
[2022-05-14] MEDS: NON FORMULARY DRUG SQ SCH (09:39)
--- NOTE | 2022-05-14 10:38 | P.PN ---
Subjective Progress Note Date: 05/14/22 Principal diagnosis: Severe mitral valve regurgitation, coronary artery disease, paroxysmal atrial fibrillation, patent foramen ovale, tricuspid regurgitation, chronic systolic congestive heart failure. Past medical history significant for hypertension, hyperlipidemia, coronary artery disease with history of previous PCI, non-ST elevated myocardial infarction in November 2021, ischemic cardiomyopathy with EF 40- 45%, right internal carotid stenosis 50-79%, renal insufficiency, anemia with history of GI bleed in November 2021 S/P transfusion PRBCs, diabetes mellitus type 2, osteoarthritis, severe COPD, chronic ongoing nicotine dependence, remote history of pneumonia, chronic low back pain and hearing disorder. Nasal swab positive for MSSA preoperative POD #25 Mitral valve repair with 28 mm physio-2 ring, CABG 3 with saphenous vein grafts to first diagonal, obtuse marginal, posterior descending coronary arteries, closure of PFO, endovascular vein harvest, modified Castanon maze procedure with full left-sided lesion set and ligation of the left atrial appendage, SCOTT by anesthesia. Protamine reaction intraoperative Postoperative acute blood loss anemia, expected given his history of anemia, hemodilution and cardiopulmonary bypass Acute on chronic kidney failure, likely from hypotension from intraoperative protamine reaction Elevated transaminases, likely from hypotension from intraoperative protamine reaction Left pleural effusion, status post left-sided thoracentesis with removal of [address] Aguilar on 04/30/22 and again on 05/04/22 for 550 mL fluid Leukocytosis, afebrile, CRP and pro-calcitonin trending down, sputum culture negative, no pneumonia, no UTI, blood culture preliminary negative, likely due to sacral stage II ulcer Patient was seen and examined in follow-up today 05/14/2022 at his bedside in the intensive care unit. He is sitting up to the bedside chair, is awake, alert, oriented 3 and is in no acute apparent distress. He is still complaining of some shortness of breath with activity, although he reports his breathing is somewhat improved today, denies any complaints of pain at this time, and states that he feels like his strength is somewhat better today. Yesterday 05/13/2022 his hemoglobin was 6.5 and was transfused for 1 unit of packed red blood cells and his hemoglobin today is 7.2. He continues to have black tarry stools according to the patient and his nurse. Oxygen saturations are 98% on 2 L nasal cannula and he is achieving 1000 mL on his incentive spirometry. He was given an IV infusion of iron yesterday. He continues to void with 510 mL of urine output in the last 8 hours. He continues on diuretics Bumex 2 mg IV daily. Laboratory results this morning show a WBC count of 7.1, hemoglobin 7.2, hematocrit 22.3, platelets 215, sodium 134, potassium 4.0, chloride 103, CO2 27, BUN 34, creatinine 1.33, glucose 116, calcium 7.3, AST 74, and ALT 62. Chest x-ray were reviewed. His been afebrile the last 24 hours. He continues to ambulate in his room and in the intensive care unit with standby assistance from nursing and therapy staff. Bedside telemetry showing normal sinus rhythm heart rate 81 bpm, no further reports of atrial fibrillation. He continues on aspirin 81 mg by mouth daily and metoprolol tartrate 25 mg by mouth twice a day. He is on daptomycin and Zosyn which is being managed by infectious disease. Objective - Vital Signs Vital signs: Vital Signs Temp 98.9 F 05/14/22 04:00 Pulse 85 05/14/22 07:00 Resp 25 H 05/14/22 07:00 BP 105/50 05/14/22 07:00 Pulse Ox 97 05/14/22 07:00 FiO2 100 04/22/22 16:00 Intake & Output 05/13/22 05/14/22 05/14/22 18:59 06:59 18:59 Intake Total 1420 460 Output Total 1850 720 90 Balance -430 -260 -90 Weight 91.7 kg Intake: IV 200 160 0.9 10 DAPTOmycin 360 mg In 50 Sodium Chloride 0.9% 50 ml @ 100 mls/hr IVPB Q24H [facility] Rx#:[id number] Piperacillin-Tazobactam 3 200 100 .375 gm In Sodium Chloride 0.9% 100 ml @ 25 mls/hr IVPB Q8HR [facility] Rx# :[id number] Oral 600 300 Blood Product 620 Rc As-1 Unit 310 [id number] Output: Urine 1850 720 90 Other: Voiding Method Urinal Urinal # Voids 1 1 # Bowel Movements 1 1 ABP, PAP, CO, CI - Last Documented Arterial Blood Pressure 137/47 Pulmonary Artery Pressure 67/18 Cardiac Output 5.8 Cardiac Index 2.8 - Exam CONSTITUTIONAL: Sitting up to the bedside chair in the intensive care unit, appears comfortable, cooperative, no apparent acute distress. HEENT: Neck is supple, no JVD, no lymphadenopathy. RESPIRATORY: Lungs sounds essentially clear throughout, diminished to his mian ateral bases and few scattered crackles to his bilateral bases. Respirations are symmetrical and nonlabored. Currently 2 L nasal cannula with oxygen saturations 98%. Able to achieve 1000 mL on his incentive spirometry. Strong cough. CARDIOVASCULAR: Regular rhythm and rate. S1 and S2 present, negative for S3, or gallop, soft systolic murmur heard best to his left sternal border. Sternum is stable. Palpable peripheral pulses bilaterally, +1 edema to his bilateral lower extremities. No calf pain or tenderness noted. Heart hugger in place with patient demonstrating appropriate use. Knee-high RAFAEL hose and sequential compression devices in place to his bilateral lower extremities. Bedside telemetry showing normal sinus rhythm with heart rate 81 BPM. GASTROINTESTINAL: Abdomen soft, nontender, nondistended. Active bowel sounds present 4 quadrants. Tolerating diet. Passing flatus. No guarding or rigidity. Small tar-colored Bowel movement this morning 05/14/2022 GENITOURINARY: Continues to void. 510 mL of urine output in the last 8 hours. INTEGUMENTARY: Skin is warm and dry with no evidence of clubbing or cyanosis. Midline sternal incision clean dry and well approximated, covered with dry intact dressing. Bilateral lower extremity EVH sites well approximated without redness or drainage. Stage II to III decubitus ulcer present to his buttocks covered with optifoam. MUSKULOSKELETAL: Able to move all extremities, strength equal bilaterally, generalized weakness. PSYCHIATRIC: Alert and oriented to person place and time, appropriate affect, intact judgment and insight. - Allied health notes Allied health notes reviewed: nursing - Labs CBC & Chem 7: 05/14/22 06:08 05/14/22 06:08 Labs: Abnormal Lab Results - Last 24 Hours (Table) 05/13/22 05/13/22 05/13/22 Range/Units 06:46 12:13 15:04 RBC 2.37 L (4.30-5.90) m/uL Hgb 7.2 L (13.0-17.5) gm/dL Hct 22.4 L (39.0-53.0) % RDW 16.9 H (11.5-15.5) % Lymphocytes # (1.0-4.8) k/uL Sodium (137-145) mmol/L BUN (9-20) mg/dL Creatinine (0.66-1.25) mg/dL Glucose (74-99) mg/dL POC Glucose (mg/dL) 164 H (70-110) mg/dL Calcium (8.4-10.2) mg/dL AST (17-59) U/L ALT (4-49) U/L Total Protein (6.3-8.2) g/dL Albumin (3.5-5.0) g/dL Crossmatch See Detail 05/13/22 05/14/22 05/14/22 Range/Units 19:44 06:08 06:08 RBC 2.35 L (4.30-5.90) m/uL Hgb 7.2 L (13.0-17.5) gm/dL Hct 22.3 L (39.0-53.0) % RDW 17.0 H (11.5-15.5) % Lymphocytes # 0.3 L (1.0-4.8) k/uL Sodium 134 L (137-145) mmol/L BUN 34 H (9-20) mg/dL Creatinine 1.33 H (0.66-1.25) mg/dL Glucose 116 H (74-99) mg/dL POC Glucose (mg/dL) 206 H (70-110) mg/dL Calcium 7.3 L (8.4-10.2) mg/dL AST 77 H (17-59) U/L ALT 62 H (4-49) U/L Total Protein 4.8 L (6.3-8.2) g/dL Albumin 2.5 L (3.5-5.0) g/dL Crossmatch 05/14/22 Range/Units 06:50 RBC (4.30-5.90) m/uL Hgb (13.0-17.5) gm/dL Hct (39.0-53.0) % RDW (11.5-15.5) % Lymphocytes # (1.0-4.8) k/uL Sodium (137-145) mmol/L BUN (9-20) mg/dL Creatinine (0.66-1.25) mg/dL Glucose (74-99) mg/dL POC Glucose (mg/dL) 149 H (70-110) mg/dL Calcium (8.4-10.2) mg/dL AST (17-59) U/L ALT (4-49) U/L Total Protein (6.3-8.2) g/dL Albumin (3.5-5.0) g/dL Crossmatch - Imaging and Cardiology Chest x-ray: report reviewed, image reviewed Assessment and Plan Assessment: 1. Severe mitral valve regurgitation, status post mitral valve repair 2. Coronary artery disease, previous PCI, previous non-STEMI, status post CABG 3 3. History of paroxysmal atrial fibrillation, previous cardioversion, on [facility] outpatient for anticoagulation, status post modified Castanon maze and ligation of left atrial appendage, currently in normal sinus rhythm 4. Patent foramen ovale, status post closure 5. Tricuspid regurgitation 6. Chronic diastolic congestive heart failure, ischemic cardiomyopathy with EF 40-45% 7. History of hypertension 8. History hyperlipidemia, treated, cholesterol 150, LDL 72 9. Right internal carotid stenosis 50-79% 10. Anemia with history of GI bleed in November 2021 S/P transfusion PRBCs 11. Acute on chronic renal failure, baseline creatinine 1.2-1.6 12. Diabetes mellitus type 2, preoperative hemoglobin A1c 5.6% 13. Osteoarthritis 14. Severe COPD, preoperative FEV1 41% of predicted 15. Chronic ongoing nicotine dependence 16. Remote history of pneumonia 17. Chronic low back pain 18. Hearing disorder 19. Nasal swab positive for MSSA preoperative 20. Postoperative acute blood loss anemia, expected 21. Elevated transaminases, continue to trend downward 22. Protamine reaction intraoperative 23. Medical debility, generalized weakness 24. Stage II-III decubitus to his buttocks, status post surgical debridement 25. Small left-sided pleural effusion, status post left-sided thoracentesis on 04/30/2022, and on 05/07/2022 26. Urinary retention possibly secondary to constipation, resolved Plan: 1. Continue low-dose aspirin, and beta siomara. We will increase his metoprolol tartrate as tolerated. 2. Encourage incentive spirometry 10 times every hour while awake. Bronchodilators per pulmonology/critical care management. 3. Wound care Medihoney ordered for treatment for the patient's decubitus, managed by Dr. Gustavo from infectious disease. Antibiotic management per infectious disease recommendations currently on Zosyn and daptomycin. 4. Will monitor daily labs and chest x-rays. Electrolyte replacement per protocol. Avoid hepatotoxic and nephrotoxic medications. 1 unit of packed red blood cells for a hemoglobin of 6.5 yesterday 05/13/2022, hemoglobin this morning is 7.2. Continue to monitor hemoglobin. Dr. Lisa Ramos has been consulted for further evaluation of GI bleed, patient has been made nothing by mouth after midnight. 5. Increase activity, ambulate as tolerated. PT/OT/cardiac rehab following. Needs much encouragement with ambulation. 6. Insulin management per primary care service. Patient is a diabetic with a preoperative hemoglobin A1c of 5.6% on multiple oral medications, needs tight blood sugar control. 7. GI/DVT prophylaxis. Continue Protonix 40 mg IVP twice a day. 8. Continue Flomax and continue to record strict accurate I's and O's. 9. Pain control with current medication regimen. 10. Daily weights. 11. Shower daily. 12. Importance of risk modification including smoking cessation counseling and education provided to patient and family. 13. Discharged to inpatient rehab within the next 48 hours, waiting on insurance authorization. 14. Continue Bumex 2 mg IV daily. 15. Ferrlecit 125 mg IVBP daily 2 days has been ordered. 16. More recommendations to follow based on patient's clinical course. Time with Patient: Greater than 30
--- NOTE | 2022-05-14 11:05 | P.CONS ---
History of Present Illness - Reason for Consult Consult date: 05/14/22 GI bleed, anemia Requesting physician: Herve Retana - Chief Complaint Scheduled mitral valve repair, CABG - History of Present Illness This is a pleasant 72-year-old male with multiple comorbidities including mitral regurgitation, coronary artery disease, proximal atrial fibrillation, osteoarthritis, diabetes mellitus, hyperlipidemia, chronic tobacco dependence, infected sacral wound, and chronic anemia who underwent elective mitral valve repair, coronary bypass grafting 3, closure of PFO, modified Maze procedure in litigation a left atrial appendage. Since being in the hospital he was noted to have significant anemia. He had been reporting black stools. He was on Eliquis, however reportedly was stopped about a week ago. He had then been on a full dose aspirin which again since he had continued anemia was changed to a low dose 81 mg aspirin. Patient denies any previous history of long-term NSAID use. States he takes Tylenol at home for pain. Patient did have a history of a GI bleed in November of this year and underwent EGD done at [facility] which showed a small oozing AVM in the second portion of the duodenum with epinephrine administration and Lip placement 1. As well as 4 antral ulcers and small hiatal hernia. There recommendation was to repeat EGD in 2-3 months. Patient states had a repeat EGD done with Dr. Ramos in the last couple months done at [facility], which report is unavailable at this time. Prior to that he had a colonoscopy done on 02/16/[address] Malave which was significant for colon polyps status post polypectomy. During this hospitalization he was seen by general surgery, Dr. Cardenas performed an EGD on 05/08/2022 with findings of duodenitis, distal esophagitis and fresh blood in the third/fourth portion of the duodenum, no visible AVM. During this hospitalization the patient has received 9 units of red blood cells, 2 units of FFP and 1 unit of platelets. Yesterday he had a hemoglobin 7.2, he was given 1 unit of blood with a repeat hemoglobin today of 7.2. States his last bowel movement was yesterday and still dark, formed. He is denying any abdominal pain, nausea or vomiting. Review of Systems REVIEW OF SYSTEMS: CARDIOPULMONARY: No chest pain or shortness of breath. Gastrointestinal: No abdominal pain or epigastric pain. No nausea or vomiting. No hematemesis, coffee-ground emesis. No rectal bleeding, reporting black stool. GENITOURINARY: No dysuria or hematuria. MUSCULOSKELETAL: Reports normal range of motion. Chronic joint pain. SKIN: No rashes. No jaundice. ENDOCRINE: No chills, fevers. No excessive weight gain or loss. No polydipsia or polyuria. PSYCHIATRIC: Unremarkable. NEUROLOGY: No change in mental status. Denies dizziness, headache. ENT: Vision unremarkable. CONSTITUTIONAL: No recent weight loss. No fever, chills, night sweats. Past Medical History Past Medical History: Atrial Fibrillation, Blood Disorder, COPD, Diabetes Mellitus, GI Bleed, Hearing Disorder / Deafness, Hyperlipidemia, Hypertension, Myocardial Infarction (IA), Pneumonia Additional Past Medical History / Comment(s): Anemia, had GI Bleed 11/22, had 4 units of blood. Bilateral lower extremity edema. Hx IA X2. Insomnia. Hx Pneumonia. Chronic back pain. Last Myocardial Infarction Date:: 11/2021 History of Any Multi-Drug Resistant Organisms: None Reported Past Surgical History: Back Surgery, Heart Catheterization With Stent, Joint Replacement, Orthopedic Surgery Additional Past Surgical History / Comment(s): BILATERAL KNEE REPLACEMENTS, BILATERAL SHOULDER SURGERY, ONE CARDIAC STENT, back surgery X2 (lumbar decompression and fusion), BACK INJECTIONS, COLONOSCOPY, BILATERAL CATARACTS REMOVED WITH LENS IMPLANTS, Cardioversion. Past Anesthesia/Blood Transfusion Reactions: No Reported Reaction Date of Last Stent Placement:: 2000 Smoking Status: Current some day smoker - Past Family History Father Family Medical History: No Reported History Mother Family Medical History: No Reported History Medications and Allergies Home Medications Medication Instructions Recorded Confirmed Type Atorvastatin [Lipitor] 80 mg PO 04/26/14 04/12/22 History Ramipril 10 mg PO [facility] 04/26/14 04/12/22 History metFORMIN HCL [Glucophage] 500 mg PO BID 04/26/14 04/12/22 History Liraglutide [Victoza 3-Casey] 1.8 mg SQ DAILY 02/19/17 04/12/22 History Metoprolol Tartrate 25 mg PO QAM 02/19/17 04/12/22 History Stool Softener(Unknown Name/Do 2 tab PO DAILY 02/19/17 04/12/22 History Vit C/E/Zn/Coppr/Lutein/Zeaxan 2 cap PO DAILY 02/19/17 04/12/22 History [Preservision Areds 2 Softgel] Acetaminophen [Tylenol Extra 500 - 1,000 mg PO DIRECTED PRN 02/02/20 04/12/22 History Strength] Pioglitazone [Actos] 15 mg PO DAILY 02/02/20 04/19/22 History Apixaban [Eliquis] 5 mg PO BID 11/09/21 04/12/22 History Fluticasone/Umeclidin/Vilanter 1 inhalation INHALATION HS 11/09/21 04/12/22 History [Trelegy Ellipta 100-62.5-25] Fenofibrate 160 mg PO HS 12/22/21 04/12/22 History Ferrous Sulfate [Feosol] 325 mg PO BID 12/22/21 04/12/22 History Furosemide [Lasix] 40 mg PO BID 12/22/21 04/12/22 History Ipratropium-Albuterol Nebulize 3 ml INHALATION QID PRN 12/22/21 04/12/22 History [Duoneb 0.5 mg-3 mg/3 ml Soln] Pantoprazole Sodium [Protonix] 40 mg PO PC-LUNCH 12/22/21 04/12/22 History Repaglinide [Prandin] 0.5 mg PO AC-SUPPER 12/22/21 04/12/22 History Mupirocin [Mupirocin 2%] 1 applic NASAL BID #1 tub 04/14/22 04/19/22 Rx Allergies Allergy/AdvReac Type Severity Reaction Status Date / Time protamine AdvReac Anaphylaxis Verified 04/22/22 07:27 Physical Exam Vitals: Vital Signs Temp Pulse Resp BP Pulse Ox 05/14/22 07:00 85 25 H 105/50 97 05/14/22 06:29 79 05/14/22 06:18 77 05/14/22 06:00 78 26 H 93/49 98 05/14/22 05:00 84 26 H 102/50 05/14/22 04:00 98.9 F 82 28 H 106/55 98 05/14/22 03:57 80 05/14/22 03:44 77 05/14/22 03:00 77 23 99/50 97 05/14/22 02:00 22 92/53 94 L 05/14/22 01:00 80 31 H 92/53 94 L 05/14/22 00:05 81 05/14/22 00:00 98.9 F 80 29 H 165/145 99 05/13/22 23:56 80 05/13/22 23:37 78 20 102/59 97 05/13/22 23:00 77 21 96/61 97 05/13/22 22:00 74 22 111/57 95 05/13/22 21:00 86 24 118/57 89 L 05/13/22 20:22 85 05/13/22 20:12 84 05/13/22 20:00 99.2 F 80 24 118/57 93 L 05/13/22 19:00 84 26 H 120/65 91 L 05/13/22 18:00 82 26 H 122/50 92 L 05/13/22 17:00 76 20 119/72 05/13/22 16:00 98.4 F 74 13 120/57 92 L 05/13/22 15:07 81 30 H 120/57 05/13/22 14:00 78 23 120/57 94 L 05/13/22 13:00 83 22 105/55 90 L 05/13/22 12:00 98.3 F 82 18 97/48 92 L 05/13/22 11:15 82 05/13/22 11:11 98.9 F 81 20 97/48 94 L 05/13/22 11:02 81 05/13/22 11:00 81 20 105/52 92 L 05/13/22 10:00 85 25 H 111/51 96 05/13/22 09:38 98.8 F 87 22 98/54 93 L 05/13/22 09:18 98.4 F 84 20 100/65 95 05/13/22 09:12 98.6 F 86 20 95/51 90 L 05/13/22 09:00 86 22 112/45 91 L Intake and Output 05/13/22 05/14/22 05/14/22 22:59 06:59 14:59 Intake Total 410 150 Output Total 510 510 90 Balance -100 -360 -90 Intake: IV 110 150 0.9 10 DAPTOmycin 360 mg In 50 Sodium Chloride 0.9% 50 ml @ 100 mls/hr IVPB Q24H [facility] Rx#:[id number] Piperacillin-Tazobactam 3 100 100 .375 gm In Sodium Chloride 0.9% 100 ml @ 25 mls/hr IVPB Q8HR [facility] Rx# :[id number] Oral 300 Output: Urine 510 510 90 Other: Voiding Method Urinal Urinal # Voids 1 1 # Bowel Movements 0 1 Weight 91.7 kg General appearance: The patient is alert, oriented, appears in no acute distress. HET: Head is normocephalic and atraumatic. Conjunctiva pink. Sclera anicteric. Neck: Supple without lymphadenopathy. Trachea midline. Heart: S1 S2. Regular rate and rhythm. Lungs: Scattered rhonchi. Equal breath sounds. Equal expansion. Abdomen: Soft, nontender, nondistended with bowel sounds. No guarding or rigidity. Skin: No rashes. No jaundice. Extremities: Normal skin color and turgor. No pedal edema. Neurological: No focal deficits. Alert and oriented x3. Results CBC & Chem 7: 05/14/22 06:08 05/14/22 06:08 Labs: Abnormal Lab Results - Last 24 Hours (Table) 05/13/22 05/13/22 05/13/22 Range/Units 06:46 12:13 15:04 RBC 2.37 L (4.30-5.90) m/uL Hgb 7.2 L (13.0-17.5) gm/dL Hct 22.4 L (39.0-53.0) % RDW 16.9 H (11.5-15.5) % Lymphocytes # (1.0-4.8) k/uL Sodium (137-145) mmol/L BUN (9-20) mg/dL Creatinine (0.66-1.25) mg/dL Glucose (74-99) mg/dL POC Glucose (mg/dL) 164 H (70-110) mg/dL Calcium (8.4-10.2) mg/dL AST (17-59) U/L ALT (4-49) U/L Total Protein (6.3-8.2) g/dL Albumin (3.5-5.0) g/dL Crossmatch See Detail 05/13/22 05/14/22 05/14/22 Range/Units 19:44 06:08 06:08 RBC 2.35 L (4.30-5.90) m/uL Hgb 7.2 L (13.0-17.5) gm/dL Hct 22.3 L (39.0-53.0) % RDW 17.0 H (11.5-15.5) % Lymphocytes # 0.3 L (1.0-4.8) k/uL Sodium 134 L (137-145) mmol/L BUN 34 H (9-20) mg/dL Creatinine 1.33 H (0.66-1.25) mg/dL Glucose 116 H (74-99) mg/dL POC Glucose (mg/dL) 206 H (70-110) mg/dL Calcium 7.3 L (8.4-10.2) mg/dL AST 77 H (17-59) U/L ALT 62 H (4-49) U/L Total Protein 4.8 L (6.3-8.2) g/dL Albumin 2.5 L (3.5-5.0) g/dL Crossmatch 05/14/22 Range/Units 06:50 RBC (4.30-5.90) m/uL Hgb (13.0-17.5) gm/dL Hct (39.0-53.0) % RDW (11.5-15.5) % Lymphocytes # (1.0-4.8) k/uL Sodium (137-145) mmol/L BUN (9-20) mg/dL Creatinine (0.66-1.25) mg/dL Glucose (74-99) mg/dL POC Glucose (mg/dL) 149 H (70-110) mg/dL Calcium (8.4-10.2) mg/dL AST (17-59) U/L ALT (4-49) U/L Total Protein (6.3-8.2) g/dL Albumin (3.5-5.0) g/dL Crossmatch Assessment and Plan (1) Upper GI bleed Narrative/Plan: Knee 2-year-old male who came in for elective cardiovascular surgery who underwent CABG, mitral valve repair on 04/19/2022 who has still been admitted to the ICU with notable anemia. Patient has had several transfusions during this hospitalization including 9 RBC, 2 FFP and 1 platelet. Patient has a history of chronic anemia and states he's been on iron at home and was having some dark stools however he didn't start having black stools until he was here in the hospital. He did undergo EGD on 05/08/[address] Cardenas with fresh blood seen in the third and fourth part of the duodenum but no visible AVMs reported. Otherwise patient had duodenitis and mild distal esophagitis. Patient continues to have low hemoglobin with concerns for continued upper GI bleed. Patient also has a history of known AVMs which were treated at [facility] in November of this year, also noted on report was for antral ulcers. Possible etiologies include bleeding AVM, bleeding ulcer or other possible etiologies. Plan for repeat upper EGD tomorrow with possible small bowel capsule endoscopy. Current Visit: Yes Status: Acute Code(s): K92.2 - GASTROINTESTINAL HEMORRHAGE, UNSPECIFIED SNOMED Code(s): 93410581 (2) Normocytic normochromic anemia Current Visit: Yes Status: Acute Code(s): D64.9 - ANEMIA, UNSPECIFIED SNOMED Code(s): 99954199 Plan: 1. Continue symptomatic and supportive care 2. Continue ICU management 3. Continue Protonix 40 mg twice a day 4. Avoid NSAIDs 5. Continue to hold anticoagulation 6. Agree with parental iron replacement 7. Nothing by mouth after midnight 8. Proceed with EGD with possible small bowel capsule endoscopy tomorrow 9. Daily CBC, transfuse for hemoglobin less than 7 Thank you for this consultation, we will continue to follow. Dr. Michelle Ramos I agree with the dictator's note, documented as a scribe by Radha Moody.
[2022-05-14] MEDS: guaiFENesin-DM 600/30MG 1 EACH TAB.ER.12H PO SCH ×2 (11:38→20:18)
[2022-05-14 11:49] LABS: Glucose,Whole Blood 131 mg/dL (70-110)
--- NOTE | 2022-05-14 12:27 | P.PN ---
Subjective Progress Note Date: 05/14/22 CHIEF COMPLAINT: GI bleed, sacral decubitus ulcer HISTORY OF PRESENT ILLNESS: Patient remains in the ICU. Patient is status post EGD revealing duodenitis, hiatal hernia, distal esophagitis. There was blood in the third and fourth portion of the duodenum. Patient also had incision and drainage and debridement of sacral decubitus ulcer with abscess on 05/08/22. Patient's continues to have black stools. He did require a unit of blood yesterday for hemoglobin of 6.5. Hemoglobin is up to 7.2. He denies any abdominal pain. Denies any nausea or vomiting. Patient reports the pain in his buttocks is improving. Patient has been showering and dressing has been changed. Afebrile WBC 7. 1 HgB7.2 platelets 215 sodium is 134 potassium is 4 creatinine 1.33 PHYSICAL EXAM: VITAL SIGNS: Reviewed. GENERAL: Well-developed in no acute distress. HEENT: No sclera icterus. Extraocular movements grossly intact. Moist buccal mucosa. Head is atraumatic, normocephalic. ABDOMEN: Soft. Nondistended. Nontender. NEUROLOGIC: Alert and oriented. Cranial nerves II through XII grossly intact. ASSESSMENT: 1. Sacral decubitus ulcer and abscess status post incision, drainage and debridement 2. Acute GI bleed possibly due to AVMs. Status post EGD revealing duodenitis, hiatal hernia and distal esophagitis PLAN: -Patient scheduled for EGD with possible small bowel capsule endoscopy with GI service tomorrow -Continue local wound care to sacral ulcer -Patient can shower and clean sacral wound in shower -Continue offloading -Continue to hold Eliquis -Continue PPI -Continue to monitor hemoglobin and transfuse as needed -Continue monitoring for any signs or symptoms of bleeding Physician Rod Mill Tender note has been reviewed by physician. Signing provider agrees with the documented findings, assessment, and plan of care. I have personally seen and examined the patient, reviewed the [employer] /PAs history, exam and MDM and agree with the assessment and plan as written. Based on total visit time, I have performed more than 50% of the visit. As above: Patient had additional black stools with drop in hemoglobin over the weekend. GI has been consulted. Patient otherwise seems be doing well. Sacral wound improving. We'll follow. Objective - Vital Signs Vital signs: Vital Signs Temp 99.1 F 05/14/22 11:34 Pulse 74 05/14/22 12:05 Resp 18 05/14/22 12:05 BP 104/52 05/14/22 11:34 Pulse Ox 96 05/14/22 11:34 FiO2 100 04/22/22 16:00 Intake & Output 05/13/22 05/14/22 05/14/22 18:59 06:59 18:59 Intake Total 1420 460 240 Output Total 1850 720 290 Balance -430 -260 -50 Weight 91.7 kg Intake: IV 200 160 240 0.9 10 40 DAPTOmycin 360 mg In 50 Sodium Chloride 0.9% 50 ml @ 100 mls/hr IVPB Q24H [facility] Rx#:[id number] Piperacillin-Tazobactam 3 200 100 100 .375 gm In Sodium Chloride 0.9% 100 ml @ 25 mls/hr IVPB Q8HR [facility] Rx# :[id number] Sodium Ferric Gluconat- 100 Sucrose 125 mg In Sodium Chloride 0.9% 100 ml @ 100 mls/hr IVPB DAILY [facility] Rx#:[id number] Oral 600 300 Blood Product 620 Rc As-1 Unit 310 [id number] Output: Urine 1850 720 290 Other: Voiding Method Urinal Urinal # Voids 1 1 # Bowel Movements 1 1 ABP, PAP, CO, CI - Last Documented Arterial Blood Pressure 137/47 Pulmonary Artery Pressure 67/18 Cardiac Output 5.8 Cardiac Index 2.8 - Labs CBC & Chem 7: 05/14/22 06:08 05/14/22 06:08 Labs: Abnormal Lab Results - Last 24 Hours (Table) 05/13/22 05/13/22 05/14/22 Range/Units 15:04 19:44 06:08 RBC 2.37 L 2.35 L (4.30-5.90) m/uL Hgb 7.2 L 7.2 L (13.0-17.5) gm/dL Hct 22.4 L 22.3 L (39.0-53.0) % RDW 16.9 H 17.0 H (11.5-15.5) % Lymphocytes # 0.3 L (1.0-4.8) k/uL Sodium (137-145) mmol/L BUN (9-20) mg/dL Creatinine (0.66-1.25) mg/dL Glucose (74-99) mg/dL POC Glucose (mg/dL) 206 H (70-110) mg/dL Calcium (8.4-10.2) mg/dL AST (17-59) U/L ALT (4-49) U/L Total Protein (6.3-8.2) g/dL Albumin (3.5-5.0) g/dL 05/14/22 05/14/22 05/14/22 Range/Units 06:08 06:50 11:48 RBC (4.30-5.90) m/uL Hgb (13.0-17.5) gm/dL Hct (39.0-53.0) % RDW (11.5-15.5) % Lymphocytes # (1.0-4.8) k/uL Sodium 134 L (137-145) mmol/L BUN 34 H (9-20) mg/dL Creatinine 1.33 H (0.66-1.25) mg/dL Glucose 116 H (74-99) mg/dL POC Glucose (mg/dL) 149 H 131 H (70-110) mg/dL Calcium 7.3 L (8.4-10.2) mg/dL AST 77 H (17-59) U/L ALT 62 H (4-49) U/L Total Protein 4.8 L (6.3-8.2) g/dL Albumin 2.5 L (3.5-5.0) g/dL Microbiology - Last 24 Hours (Table) 04/30/22 16:45 Acid Fast Bacilli Smear - Final Pleural Fluid Acid Fast Bacilli Culture - Preliminary
[2022-05-14 15:20] LABS: Anisocytosis Slight; Hypochromasia Marked; MCH 30.3 pg (25.0-35.0); MCHC 31.8 g/dL (31.0-37.0); MCV 95.1 fL (80.0-100.0); Mean Platelet Volume 9.1; Platelet Count 202 k/uL (150-450); Poikilocytosis Moderate; RBC 2.31 m/uL (4.30-5.90); RDW 16.9 % (11.5-15.5); WBC 5.8 k/uL (3.8-10.6)
[2022-05-14 16:17] LABS: Glucose,Whole Blood 160 mg/dL (70-110)
[2022-05-14 16:42] LABS: Glucose,Whole Blood 157 mg/dL (70-110)
[2022-05-14] MEDS: ACETAMINOPHEN TAB 325 MG TAB PO PRN (17:04)
--- NOTE | 2022-05-14 17:18 | P.PN ---
Progress Note - Text Progress Note Date: 05/14/22 Patient is a pleasant 72-year-old male came in the for elective mitral valve repair, CABG x 3 vessel, maze procedure, PFO closure. Patient is extubated sitting in the chair patient still has a Vienna-Varghese catheter, CVP of around 12, cardiac index 3.1 patient creatinine went up to 1.70 resulting elevated potassium of 5.5 patient is off pressor support, off nitro drip patient still has 2 mediastinal and one left-sided chest tube. 04/21/2022 Patient is evaluated in ICU today, sitting up in chair. He is postoperative day #2 for elective mitral valve repair, hematocrit bypass grafting maze procedure and PFO closure. He is on BiPAP with fio2 of 40% Continues with mediastinal/left pleural chest tubes. Continue with indwelling catheter. Received dose of IV albumin yesterday afternoon. Chest xray today showing ongoing mild pulmonary vascular congestion, increasing patchy bibasilar opacities, atelectasis vs. pulmonary edema. Currently on lasix gtt at 10mls/hr, continues on dopamine gtt at 3.68 mls/hr. Continues on insulin gtt and blood glucose remains in the 140 to 130s. Labs today showing sodium 132, potassium 6.1 improved to 5.4, BUN 41, creatinine 2.53, elevated liver enzymes. Hgb 7.3. 04/22/2022 Patient continues to be monitored closely in intensive care unit, he is postoperative day #3 for elective mitral valve repair, maze procedure, PFO closure. Managed by primary team. He had limited echocardiogram completed showing EF 45 to 50%, mild to moderate MR, moderate pulmonary hypertension with moderate TR. Chest xray today shows slight improvement in pulmonary vascular congestion. Maintained on lasix gtt at 10mls/hr, dopamine gtt, Continues with 2 mediastinal chest tubes. Continues with indwelling catheter. Continues with right IJ swan/cordis, right radial arterial line. He has been weaned off BiPAP currently on high flow cannula at 15L. He has been tolerating some diet. Continues on insulin gtt which will continue until his diet stabilizes. Current glucose in the 140s. Creatinine today 3.14. April 23: I assumed care of patient today from [facility]. ICU. In a recliner. Tired. Little oral intake. Nasal cannula. Drips include IV dopamine and Lasix. Some shortness of breath. Mooney catheter. 04/24/2022: ICU. Up. 4 L nasal cannula. Did eat better. Edema present. On the Lasix drip 5 mg an hour. Some improvement in creatinine. 04/25/2022: ICU. Up in a recliner. Eating better. at the bedside. Edema present. Off Lasix drip. Feeling better. Creatinine coming down. LFTs improving. Home dose of Victoza was started 04/26/2022: ICU. Up in a recliner. 4 L nasal cannula. Eating about 50%. Accu-Cheks noted. 04/27/2022: ICU: Patient went into atrial fibrillation overnight. Put on oral amiodarone and Lopressor per CTS.. Some worsening of shortness of breath. Placed on IV Lasix. Eating some. Up in a recliner. 04/28/2022: ICU. Patient received Lopressor today for the A. fib. Patient went down into sinus rhythm. Blood pressure also dropped her was 70 systolic. Oxygen increased to 4 L. Short of breath. Patient did walk 10-12 steps up to the door. Eating fair. Lower extremity edema edema present. Up in a chair. Tired. 04/29/2022: ICU. Short of breath. 3 L nasal cannula. Eating fair. Edema pre sent. Getting Bumex. Getting IV albumin and IV calcium. Using incentive spirometry. Up in a chair. Discussed with at the bedside. Increasing white count, infiltrated urine chest x-ray suggestive of pneumonia. Started on IV cefepime 04/30/2022: ICU. Remains short of breath. 3 L nasal cannula. Started on IV cefepime yesterday.. Oral intake fair. Edema present. Remains on Bumex. Fo sher catheter. Discussed with patient and at the bedside. Discussed with Dr. Cortez from cardiothoracic surgery. 05/01/2022: ICU. Zaroxolyn was added. Good diuresis. Breathing better. On IV cefepime. Left paracentesis is done. 850 mL removed. Oral intake fair. Breathing a bit better. Telemetry shows sinus rhythm. 2 L nasal cannula. at the bedside. Will DC Actos. Even though smaller dose. Given CHF renal failure. Increase Lantus to 12 units. 05/02/2022: ICU. Over 3 is a negative fluid balance. Last 24 hours. Some improvement in breathing. Oral intake fair. Remains in atrial fibrillation controlled. 2 L nasal cannula. Add Diamox. 4 metabolic alkalosis 05/03/2022: ICU. This morning patient became short of breath. Dr. Chen from [place] consulted for sacral decub. Remains on IV cefepime. Oral intake fair. Had a BM. On IV Bumex. I discussed with Dr. Aguilar from pulmonary. Patient is known to him. Advanced COPD. His right lung changes are chronic. Has had previous CAT scans. He may have had a located effusion. 05/04/2022: ICU. Breathing a bit better. Hemoglobin dropped to 6.1. Awaiting transfusion. Tolerating diet. On IV cefepime. Patient started on IV eraxis by Dr. Prescott from [place]. 05 May 2022: ICU. Patient received a unit of blood yesterday evening. Getting another unit of blood today. Breathing better. Remains on IV Bumex. IV cefepime discontinued. Remains on IV Eraxis. Oral intake fair. Up in a chair. at the bedside. Increase Levemir to 20 units at night. 05/06/2022: ICU. Patient received a 3rd unit blood this morning. Breathing better. Had some blood in his urine. On 2 L is cannula. Sitting up in a chair, eating better. Some cough with brownish sputum. 05/07/2022: ICU. Up in a chair. Eating better. On 2 L nasal cannula. On IV daptomycin. IV Zosyn. Has had dark stools but is on iron. We'll hold off oral iron to see if stool color lightens. Add NovoLog 5 units scheduled with meals. Hemoglobin dropped again to 6.2. Received 1 unit of blood today. 05/08/2022: ICU. Seen by me this morning. Hemoglobin further dropped again. 5.9. Data patient underwent EGD by Dr. Fiore. Fresh blood seen in the third and fourth portion of duodenum of blood clots noted. No obvious source noted. Patient is on PPI. Also sacral decub ulcer abscess also drained. Patient received a unit of blood this morning. Discussed with Neema from cardiothoracic team. Patient does not like hospital food. has been free eating food from outside. Including [employer]'s fish [employer] etc. Difficult to control Accu- Cheks. Concerned the patient may become hypoglycemic if a more aggressive. farxiga is being added. 05/09/2022: ICU. No further drop in hemoglobin after blood transfusion yesterday. Patient is off eliquis. Had a dark stool today. Oral intake fair. On 2 L nasal cannula. On IV daptomycin IV Zosyn. 05/10/2022: ICU. Patient had no further drop in hemoglobin. Had a black stool. Off oxygen. Eating well. Accu-Cheks will stabilize. On IV daptomycin IV Zosyn. Sputum growing Margo albicans and Aspergillus fumigators. We'll decrease Levemir to 16 units. Decreased scheduled NovoLog to 3 units with meals. 05/11/2022: ICU. Patient was short of breath this morning. Remains on IV Bumex. Had black stool today. Hemoglobin remained stable. Accu-Cheks followed. Levemir cutback to 12 units at night. Remains on IV daptomycin IV Zosyn. Up in a chair. 05/12/2022: ICU. Some shortness of breath. On 2 L nasal cannula. Hemoglobin remained stable. Oral intake fair. On IV daptomycin and IV Zosyn. Up in a chair. at the bedside. 05/13/2022: ICU. Patient continues to be a bit short of breath. IV Bumex. Remains on IV daptomycin IV Zosyn. Some cough. Tired. Continues to have dark stools. Hemoglobin dropped again to 6.5. Received a unit of blood this morning. GI Dr. Michelle Ramos's been consulted. Accu-Cheks running low lower side. DC Levemir. 05/14/2022: ICU. Patient's had more dark stools. Seen by Dr. Michelle Ramos from GI today. For endoscopy tomorrow. Tolerating diet. On 2 L cannula. Patient is on Levemir since yesterday. Active Medications Acetaminophen (Acetaminophen Tab 325 Mg Tab) 650 mg PO Q6HR PRN PRN Reason: Fever and/ or Mild Pain Last Admin: 05/14/22 17:04 Dose: 650 mg Hydrocodone Bitart/Acetaminophen (Hydrocodone/Apap 5-325mg 1 Each Tab) 1 each PO Q4HR PRN PRN Reason: Moderate Pain (Scale 4 to 6) Last Admin: 05/14/22 04:23 Dose: 1 each Albuterol/Ipratropium (Ipratropium-Albuterol 3 Ml Neb) 3 ml INHALATION RT-Q2H PRN PRN Reason: Shortness Of Breath Or Wheezing Last Admin: 05/14/22 03:44 Dose: 3 ml Albuterol/Ipratropium (Ipratropium-Albuterol 3 Ml Neb) 3 ml INHALATION RT-QID [facility] Last Admin: 05/14/22 17:14 Dose: 3 ml Ascorbic Acid (Ascorbic Acid 500 Mg Tab) 500 mg PO DAILY [facility] Last Admin: 05/14/22 08:58 Dose: 500 mg Aspirin (Aspirin 81 Mg) 81 mg PO DAILY [facility] Last Admin: 05/14/22 08:58 Dose: 81 mg Atorvastatin Calcium (Atorvastatin 20 Mg Tab) 20 mg PO DAILY [facility] Last Admin: 05/14/22 08:58 Dose: 20 mg Benzocaine/Menthol (Benzocaine/Menthol Lozeng 1 Each Lozenge) 1 each MUCOUS MEM Q2HR PRN PRN Reason: Sore Throat Last Admin: 05/14/22 16:00 Dose: 1 each Bisacodyl (Bisacodyl 10 Mg Supp) 10 mg RECTAL DAILY PRN PRN Reason: Constipation Last Admin: 05/09/22 09:10 Dose: 10 mg Budesonide/Formoterol Fumarate (Symbicort 160-4.5 Mcg Inhaler) 2 puff INHALATION RT-BID [facility] Last Admin: 05/14/22 06:17 Dose: 2 puff Bumetanide (Bumetanide 0.25 Mg/Ml 10 Ml Vial) 2 mg IV DAILY [facility] Last Admin: 05/14/22 08:59 Dose: 2 mg Dapagliflozin (Dapagliflozin Propanediol 5 Mg Tablet) 5 mg PO DAILY [facility] Last Admin: 05/14/22 09:03 Dose: 5 mg Dextrose/Water (Dextrose 50% Syringe 50 Ml) 25 ml IVP PER PROTOCOL PRN; Protocol PRN Reason: Hypoglycemia Dextrose/Water (Dextrose 50% Syringe 50 Ml) 50 ml IVP PER PROTOCOL PRN; Protocol PRN Reason: Hypoglycemia Guaifenesin/Dextromethorphan (Guaifenesin-Dm 600/30mg 1 Each Tab.Er.12h) 1 each PO Q12HR [facility] Last Admin: 05/14/22 11:38 Dose: Not Given Daptomycin 360 mg/ Sodium (Chloride) 50 mls @ 100 mls/hr IVPB Q24H [facility]; Protocol Last Admin: 05/13/22 23:41 Dose: 100 mls/hr Piperacillin Sod/Tazobactam (Sod 3.375 gm/ Sodium Chloride) 100 mls @ 25 mls/hr IVPB Q8HR [facility]; Protocol Last Admin: 05/14/22 16:44 Dose: 25 mls/hr Ferric Sodium Gluconate 125 mg (/ Sodium Chloride) 110 mls @ 100 mls/hr IVPB DAILY [facility] Stop: 05/16/22 09:01 Last Admin: 05/14/22 09:38 Dose: 100 mls/hr Insulin Aspart (Insulin Aspart (Novolog) 100 Unit/Ml Vial) 0 unit SQ ACHS [facility]; Protocol Last Admin: 05/14/22 16:54 Dose: 2 unit Lidocaine (Lidocaine 5% Patch) 2 patch TOPICAL DAILY [facility]; Protocol Last Admin: 05/14/22 09:03 Dose: 2 patch Magnesium Hydroxide (Magnesium Hydroxide 2,400 Mg/10 Ml Cup) 2,400 mg PO BID PRN PRN Reason: Constipation Last Admin: 04/22/22 07:08 Dose: 2,400 mg Metoprolol Tartrate (Metoprolol Tartrate 25 Mg Tab) 25 mg PO BID [facility] Last Admin: 05/14/22 09:03 Dose: 25 mg Miscellaneous Information (Potassium Replacement Protocol 1 Each Misc) 1 each MISCELLANE DAILY PRN; Protocol PRN Reason: Per Protocol Miscellaneous Information (Magnesium Replacement Protocol 1 Each Misc) 1 each MISCELLANE DAILY PRN; Protocol PRN Reason: Per Protocol Non-Formulary Medication (Non Formulary Drug) 1 each SQ DAILY [facility] Last Admin: 05/14/22 09:39 Dose: 1 each Ondansetron HCl (Ondansetron 4 Mg/2 Ml Vial) 4 mg IVP Q6HR PRN PRN Reason: Nausea And Vomiting Last Admin: 05/13/22 20:09 Dose: 4 mg Pantoprazole Sodium (Pantoprazole 40 Mg/10 Ml Vial) 40 mg IVP BID [facility] Last Admin: 05/14/22 08:56 Dose: 40 mg Potassium Chloride (Potassium Chloride Er 10 Meq Tab.Er.Prt) 10 meq PO DAILY [facility] Last Admin: 05/14/22 08:58 Dose: 10 meq Senna/Docusate Sodium (Sennosides-Docusate Sodium 1 Each Tab) 2 each PO HS [facility] Last Admin: 05/13/22 20:01 Dose: Not Given Sodium Chloride (Sodium Chloride 0.9% Flush 10 Ml Syringe) 10 ml IV BID [facility] Last Admin: 05/14/22 08:57 Dose: 10 ml Tamsulosin HCl (Tamsulosin 0.4 Mg Cap.Er.24h) 0.4 mg PO PC-BRKFST [facility] Last Admin: 05/14/22 08:58 Dose: 0.4 mg On examination: VITAL SIGNS: At time 0.1, 76, 22, 1/652, 96% on 2 L GENERAL APPEARANCE: Up in chair, some short of breath HEENT: Normal external appearance of nose and ear. Oral cavity normal EYES: Pupils equal. Conjunctiva normal. NECK: JVD not raised. Mass not palpable. RESPIRATORY: Respiratory effort increased. Lungs diminished breath sounds. CARDIOVASCULAR: First and second sounds normal. Edema present ABDOMEN: Soft. Liver and spleen not palpable. No tenderness. No mass palpable. Sacral decub. PSYCHIATRY: AO 3, mood and affect normal INVESTIGATIONS, reviewed in the clinical context: 05/14/2022: WBC 5.8 hemoglobin 7 platelets 202 05/13/2022: White count 8.3 hemoglobin 6.5 platelets 197 potassium 4.4 BUN 42 creatinine 1.33 05/04/2022: WBC 16 hemoglobin 6.1 platelets 362 potassium 3.7 BUN 75 creatinine 1.75 Limited 2-D echocardiogram [May 01]: EF 45%. [id number] MR, moderate aortic stenosis 05/01/2022: WBC 15.3 hemoglobin 7.2 platelets 305 potassium 4. [address] chest [April 29]: Moderate partial obliterate right pleural effusion, left pleural effusion, cardiomegaly. 04/24/2022: WBC 9.2 hemoglobin 7.1 platelets 122 potassium 5.1 BUN 77 creatinine 2.97 AST 1270 ALT 1038 WBC 8.2 hemoglobin 7.5 platelets 111 sodium 135 progression 6 BUN 67 creatinine 3.43 AST 3595 ALT 1512 Limited 2-D echocardiogram: EF 45-50%. Inferior wall hypokinesis. Moderate MR. Moderate pulmonary hypertension with moderate TR. Assessment and plan -Acute on chronic congestive heart exacerbation from systolic/diastolic dysfunction EF 45-50%:, precipitated by A. fib: Better Bumex 2 mg IV daily -pneumonia, short of breath, infiltrate on chest x-ray, increasing white count and procalcitonin: Better IV cefepime-completed -Acute hypoxic respiratory failure from pulmonary edema/pneumonia: Better 93% on 2 L -Diabetes Mellitus type 2 , better. Victoza , . farxiga 5 mg -Paroxysmal atrial fibrillation status post modified Castanon-Maze procedure,: With rapid ventricular rate: Now - sinus rhythm amiodarone ,Lopressor. Eliquis held because of GI bleed -Acute GI bleed from the third and fourth portion of duodenum: Continues. EGD encountered fresh blood with blood clots. No obvious source noted. Patient is on aspirin. Eliquis held . Patient received about 9 units of blood. Pending repeat EGD by Dr. Michelle Ramos tomorrow -acute renal failure on chronic kidney disease stage II with renal failure is probably prerenal azotemia, cardiorenal syndrome.: Creatinine peaked at 3.43. Creatinine 1.46 -hyperkalemia secondary to acute renal failure: Corrected Received Lokelma. Renal diet -Acute hepatitis, likely ischemic: Better Follow closely. GI services not available in the hospital. Hold any hepatic offensive medications. Follow LFTs patient as patient started back on amiodarone -Acute COPD exacerbation, in a smoker DuoNeb. Symbicort -Hyperlipidemia Lipitor -Sacral decubitus ulcer: With abscess. Large abscess was encountered. 12 x 10 x 4 cm deep. Cleaned out by Dr. Fiore 05/08/2022. Follow with ID. On IV daptomycin, IV Zosyn -Metabolic alkalosis from diuresis Was on Diamox - coronary artery disease with previous PCI Aspirin, Imdur, Lopressor -Acute postprocedure blood loss anemia as expected from surgery, also hospital- acquired anemia from blood draws Received PRBC -Chronic nicotine dependence - post mitral valve failure, status post CABG, status post PFO closure: Currently [id number] MR -Moderate aortic stenosis -Moderate secondary pulmonary hypertension EGD tomorrow by Dr. Michelle Ramos. Other medications to continue. Patient has been off Levemir. Other medications to continue.
--- NOTE | 2022-05-14 17:55 | P.PN ---
Subjective Progress Note Date: 05/14/22 On today's evaluation of 05/14/2022, the patient is postop day #25. The patient is doing well. He is on good progress postop. His chest x-ray still showing evidence of bilateral pleural effusion that are essentially small and the patient is currently on 3 L of oxygen by nasal cannula. . He is breathing comfortably. He is alert and oriented 3. He is ambulating. I reviewed the ultrasound the chest and the chest x-ray and there is no need for thoracentesis at this point in time.. The patient is breathing adequately for now. No significant shortness of breath. He is ambulating. He is using the incentive spirometer. Over the past 24-48 hours, there was a drop in hemoglobin down to 6.5 and the patient was given units of packed RBC and hemoglobin today is up to 7.2. He continues to have some autonomic black tarry stools according to nursing staff. His hemoglobin is to be monitored. He is known to have previous duodenal ulcers. The patient has a hemoglobin of 7.2 from today. Creatinine is also improved and is currently down to 1.3 with a BUN of 34. Continues to receive Lasix on a daily basis. He is also on aspirin 81 mg by mouth daily, metoprolol 25 mg twice a day and the patient is also being treated for a sacral decubitus ulcer and he has many honey and Opteform and is also covered with a combination of Zosyn and daptomycin. He is urinating adequately. He was treate d with IV iron regarding his blood loss anemia. Objective - Vital Signs Vital signs: Vital Signs Temp 98.9 F 05/14/22 04:00 Pulse 85 05/14/22 07:00 Resp 25 H 05/14/22 07:00 BP 105/50 05/14/22 07:00 Pulse Ox 97 05/14/22 07:00 FiO2 100 04/22/22 16:00 Intake & Output 05/13/22 05/14/22 05/14/22 18:59 06:59 18:59 Intake Total 1420 460 Output Total 1850 720 90 Balance -430 -260 -90 Weight 91.7 kg Intake: IV 200 160 0.9 10 DAPTOmycin 360 mg In 50 Sodium Chloride 0.9% 50 ml @ 100 mls/hr IVPB Q24H [facility] Rx#:[id number] Piperacillin-Tazobactam 3 200 100 .375 gm In Sodium Chloride 0.9% 100 ml @ 25 mls/hr IVPB Q8HR [facility] Rx# :[id number] Oral 600 300 Blood Product 620 Rc As-1 Unit 310 [id number] Output: Urine 1850 720 90 Other: Voiding Method Urinal Urinal # Voids 1 1 # Bowel Movements 1 1 ABP, PAP, CO, CI - Last Documented Arterial Blood Pressure 137/47 Pulmonary Artery Pressure 67/18 Cardiac Output 5.8 Cardiac Index 2.8 - Exam CONSTITUTIONAL: Sitting up to the bedside chair in the intensive care unit, appears comfortable, cooperative, no apparent acute distress. HEENT: Neck is supple, no JVD, no lymphadenopathy. RESPIRATORY: Lungs sounds essentially clear throughout, diminished to his bilateral bases and few scattered crackles to his bilateral bases. Respirations are symmetrical and nonlabored. Currently 2 L nasal cannula with oxygen satura tions 98%. Able to achieve 1000 mL on his incentive spirometry. Strong cough. CARDIOVASCULAR: Regular rhythm and rate. S1 and S2 present, negative for S3, or gallop, soft systolic murmur heard best to his left sternal border. Sternum is stable. Palpable peripheral pulses bilaterally, +1 edema to his bilateral lower extremities. No calf pain or tenderness noted. Heart hugger in place wit h patient demonstrating appropriate use. Knee-high RAFAEL hose and sequential compression devices in place to his bilateral lower extremities. Bedside telemetry showing normal sinus rhythm with heart rate 81 BPM. GASTROINTESTINAL: Abdomen soft, nontender, nondistended. Active bowel sounds present 4 quadrants. Tolerating diet. Passing flatus. No guarding or rigidity. Small tar-colored Bowel movement this morning 05/14/2022 GENITOURINARY: Continues to void. 510 mL of urine output in the last 8 hours. INTEGUMENTARY: Skin is warm and dry with no evidence of clubbing or cyanosis. Midline sternal incision clean dry and well approximated, covered with dry intact dressing. Bilateral lower extremity EVH sites well approximated without redness or drainage. Stage II to III decubitus ulcer present to his buttocks covered with optifoam. MUSKULOSKELETAL: Able to move all extremities, strength equal bilaterally, generalized weakness. PSYCHIATRIC: Alert and oriented to person place and time, appropriate affect, intact judgment and insight. - Labs CBC & Chem 7: 05/14/22 15:14 05/14/22 06:08 Labs: Abnormal Lab Results - Last 24 Hours (Table) 05/13/22 05/13/22 05/13/22 Range/Units 06:46 12:13 15:04 RBC 2.37 L (4.30-5.90) m/uL Hgb 7.2 L (13.0-17.5) gm/dL Hct 22.4 L (39.0-53.0) % RDW 16.9 H (11.5-15.5) % Lymphocytes # (1.0-4.8) k/uL Sodium (137-145) mmol/L BUN (9-20) mg/dL Creatinine (0.66-1.25) mg/dL Glucose (74-99) mg/dL POC Glucose (mg/dL) 164 H (70-110) mg/dL Calcium (8.4-10.2) mg/dL AST (17-59) U/L ALT (4-49) U/L Total Protein (6.3-8.2) g/dL Albumin (3.5-5.0) g/dL Crossmatch See Detail 05/13/22 05/14/22 05/14/22 Range/Units 19:44 06:08 06:08 RBC 2.35 L (4.30-5.90) m/uL Hgb 7.2 L (13.0-17.5) gm/dL Hct 22.3 L (39.0-53.0) % RDW 17.0 H (11.5-15.5) % Lymphocytes # 0.3 L (1.0-4.8) k/uL Sodium 134 L (137-145) mmol/L BUN 34 H (9-20) mg/dL Creatinine 1.33 H (0.66-1.25) mg/dL Glucose 116 H (74-99) mg/dL POC Glucose (mg/dL) 206 H (70-110) mg/dL Calcium 7.3 L (8.4-10.2) mg/dL AST 77 H (17-59) U/L ALT 62 H (4-49) U/L Total Protein 4.8 L (6.3-8.2) g/dL Albumin 2.5 L (3.5-5.0) g/dL Crossmatch 05/14/22 Range/Units 06:50 RBC (4.30-5.90) m/uL Hgb (13.0-17.5) gm/dL Hct (39.0-53.0) % RDW (11.5-15.5) % Lymphocytes # (1.0-4.8) k/uL Sodium (137-145) mmol/L BUN (9-20) mg/dL Creatinine (0.66-1.25) mg/dL Glucose (74-99) mg/dL POC Glucose (mg/dL) 149 H (70-110) mg/dL Calcium (8.4-10.2) mg/dL AST (17-59) U/L ALT (4-49) U/L Total Protein (6.3-8.2) g/dL Albumin (3.5-5.0) g/dL Crossmatch Assessment and Plan Plan: Severe mitral valve regurgitation, status post mitral valve repair, postoperative day # 25 Coronary artery disease, previous PCI, previous non-STEMI, status post CABG 3, postop day #25 History of paroxysmal atrial fibrillation, previous cardioversion, on [facility] outpatient for anticoagulation, status post modified Castanon maze and ligation of left atrial appendage, postop day #25 Patent foramen ovale, status post closure, postop day #25 Atrial fibrillation, expected outcome of surgery and the patient is back to normal sinus rhythm. 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, post 9 Units PRBC History of hypertension History hyperlipidemia, treated, cholesterol 150, LDL 72 Right internal carotid stenosis 50-79% Previous Anemia with history of GI bleed in November 2021 S/P transfusion PRBCs Acute on chronic renal failure, creatinine is at 1.33 Diabetes mellitus type 2, preoperative hemoglobin A1c 5.6% currently Levemir insulin 8 units along with a sliding scale coverage Osteoarthritis Severe COPD, preoperative FEV1 41% of predicted Chronic ongoing nicotine dependence Remote history of pneumonia Chronic low back pain, hearing disorder Nasal swab positive for MSSA preoperative Postoperative acute blood loss anemia, expected Elevated transaminases, most likely due to shock liver and the significant elevation of the ALT and AST which are being monitored, and the level is also i mproving and there is a decline and LFTs Protamine reaction intraoperative decubitus ulcer stage 2, post wound debridement left-sided pleural effusion post thoracentesis of the left Left lung removal of 800 mL of pleural fluid. Plan: Overall condition is stable No need for thoracentesis Continue Bumex 2 mg on a daily basis IV Monitor hemoglobin and watch for any signs of GI bleeding Continue IV iron Continue aspirin continue metoprolol 25 mg twice a day continue wound care Continue Zosyn and daptomycin Continue using incentive spirometer Continue supportive care and the patient's condition is gradually improving.
[2022-05-14] MEDS: SENNOSIDES-DOCUSATE SODIUM 1 EACH TAB PO SCH (20:07)
[2022-05-14 20:14] LABS: Glucose,Whole Blood 167 mg/dL (70-110)
[2022-05-15] MEDS: IPRATROPIUM-ALBUTEROL 3 ML NEB INHALATION PRN ×4 (00:36→22:26)
--- NOTE | 2022-05-15 06:30 | XR ---
EXAMINATION TYPE: XR chest 1V portable DATE OF EXAM: 05/15/2022 CLINICAL HISTORY: Difficulty breathing progress study. Postoperative cardiac surgery. TECHNIQUE: Single AP portable upright view of the chest is obtained. COMPARISON: Chest x-ray from one day earlier and older studies. FINDINGS: Overlying Sternal wires are redemonstrated. Metallic cardiac valvular ring again seen. Persistent small left greater than right pleural effusions and bilateral mild interstitial edema laverne g with cardiomegaly and bibasilar opacities favoring compressive atelectasis. Upper lungs are clear w ithout pneumothorax. Osseous structures are intact. IMPRESSION: Cardiomegaly with small left greater than right pleural effusions and mild bilateral inte rstitial edema along with bibasilar compressive atelectasis are all redemonstrated. No significant ch caroline from one day earlier.
[2022-05-15 06:32] LABS: Glucose,Whole Blood 172 mg/dL (70-110)
[2022-05-15] MEDS: INSULIN ASPART (NovoLOG) 100 UNIT/ML VIAL SQ SCH ×4 (06:33→20:13)
[2022-05-15 07:58] LABS: Anisocytosis Slight; HCT 20.9 % (39.0-53.0); Hypochromasia Marked; MCH 28.5 pg (25.0-35.0); MCHC 29.7 g/dL (31.0-37.0); Macrocytosis Slight; Mean Platelet Volume 8.5; Platelet Count 215 k/uL (150-450); Poikilocytosis Moderate; RBC 2.18 m/uL (4.30-5.90); RDW 17.4 % (11.5-15.5); WBC 6.6 k/uL (3.8-10.6)
[2022-05-15 08:00] LABS: Albumin 2.4 g/dL (3.5-5.0); Calcium 7.3 mg/dL (8.4-10.2); Total Bilirubin 0.6 mg/dL (0.2-1.3); Total Protein 4.6 g/dL (6.3-8.2)
[2022-05-15 08:02] LABS: HGB 6.2 gm/dL (13.0-17.5)
[2022-05-15] MEDS: ASPIRIN 81 MG PO SCH (08:23)
[2022-05-15] MEDS: SODIUM FERRIC GLUCONAT-SUCROSE 125 MG in SODIUM CHLORIDE 0.9% 100 ML IVPB SCH (08:38)
[2022-05-15] MEDS: PANTOPRAZOLE 40 MG/10 ML VIAL IVP SCH ×2 (08:46→20:12)
[2022-05-15] MEDS: METOPROLOL TARTRATE 25 MG TAB PO SCH ×2 (08:46→20:13)
[2022-05-15] MEDS: LIDOCAINE 5% PATCH TOPICAL SCH (08:50)
[2022-05-15] MEDS: BUMETANIDE 0.25 MG/ML 10 ML VIAL IV SCH (08:50)
--- NOTE | 2022-05-15 09:06 | P.PN ---
Subjective Progress Note Date: 05/15/22 PROGRESS NOTE The patient is a 72-year-old male with a known history of CAD, atrial fibrillation, coronary disease and mitral valve disease who underwent CABG with SVG to the diagonal branch, obtuse marginal branch and PDA, mitral valve repair with closure of PFO and modified Castanon procedure with ligation of the left atrial appendage, performed by Dr. Raines on April 19. His postoperative course has been complicated by recurrent bleeding, requiring multiple transfusion, dyspnea and fatigue. He continues to feel weak and dyspneic although slightly better. He is scheduled to be seen by Dr. Ramos today for further evaluation of his GI status. He denies any chest discomfort, dizziness or palpitations. His urinary output has been stable. He has not been anticoagulated because of the recurrent GI bleeding. Hemodynamically he is stable. He denies any nausea or vomiting. His chest x-ray shows mild congestion. May 15: The patient continues to be in sinus mechanism. He feels tired but he denies any chest discomfort, dizziness or palpitations. He is more anemic today and is scheduled to undergo transfusion and workup by the GI service including upper and lower endoscopy according to him. He denies any nausea or vomiting. Hemodynamically he has been stable. Medications: Aspirin 81 mg daily, Bumex 2 mg IV daily, metoprolol 25 mg twice a day, Flomax once a day, Farxiga 5 mg qd, Lipitor 20 mg daily PHYSICAL EXAMINATION: Blood pressure 110/60 heart rate 80 LUNGS: Mild decrease in the breath sounds at the bases HEART: Regular rate and rhythm, S1, S2. No S3. systolic murmur at the base ABDOMEN: Soft, nontender, no organomegaly EXTREMETIES: 1+ edema LAB: Hemoglobin 6.2, BUN 41, creatinine 1.37. AST 67, ALT 57. IMPRESSION: 1. Status post CABG with mitral valve repair and closure of left atrial appendage 2. Recurrent anemia with GI bleeding, source unclear 3. History of paroxysmal atrial fibrillation 4. History of COPD 5. Physical deconditioning post surgery 6. History of hyperlipidemia PLAN: 1. Await GI input 2. Continue to hold anticoagulation 3. Transfuse as needed 4. Depending on his progress further recommendations will be made Objective - Vital Signs Vital signs: Vital Signs Temp 98.2 F 05/15/22 08:00 Pulse 81 05/15/22 08:00 Resp 25 H 05/15/22 08:00 BP 106/51 05/15/22 08:00 Pulse Ox 98 05/15/22 08:00 FiO2 100 04/22/22 16:00 Intake & Output 05/14/22 05/15/22 05/15/22 18:59 06:59 18:59 Intake Total 810 140 200 Output Total 490 800 350 Balance 320 -660 -150 Weight 90.9 kg Intake: IV 310 80 200 0.9 110 80 0 Piperacillin-Tazobactam 3 100 100 .375 gm In Sodium Chloride 0.9% 100 ml @ 25 mls/hr IVPB Q8HR [facility] Rx# :[id number] Sodium Ferric Gluconat- 100 100 Sucrose 125 mg In Sodium Chloride 0.9% 100 ml @ 100 mls/hr IVPB DAILY [facility] Rx#:[id number] Oral 500 60 Output: Urine 490 800 350 Other: Voiding Method Urinal Urinal # Voids 1 # Bowel Movements 1 ABP, PAP, CO, CI - Last Documented Arterial Blood Pressure 137/47 Pulmonary Artery Pressure 67/18 Cardiac Output 5.8 Cardiac Index 2.8 - Labs CBC & Chem 7: 05/15/22 07:12 05/15/22 07:12 Labs: Abnormal Lab Results - Last 24 Hours (Table) 05/13/22 05/14/22 05/14/22 Range/Units 06:46 11:48 15:14 RBC 2.31 L (4.30-5.90) m/uL Hgb 7.0 L (13.0-17.5) gm/dL Hct 22.0 L (39.0-53.0) % MCHC (31.0-37.0) g/dL RDW 16.9 H (11.5-15.5) % BUN (9-20) mg/dL Creatinine (0.66-1.25) mg/dL Glucose (74-99) mg/dL POC Glucose (mg/dL) 131 H (70-110) mg/dL Calcium (8.4-10.2) mg/dL AST (17-59) U/L ALT (4-49) U/L Total Protein (6.3-8.2) g/dL Albumin (3.5-5.0) g/dL Crossmatch See Detail 05/14/22 05/14/22 05/14/22 Range/Units 16:16 16:40 20:13 RBC (4.30-5.90) m/uL Hgb (13.0-17.5) gm/dL Hct (39.0-53.0) % MCHC (31.0-37.0) g/dL RDW (11.5-15.5) % BUN (9-20) mg/dL Creatinine (0.66-1.25) mg/dL Glucose (74-99) mg/dL POC Glucose (mg/dL) 160 H 157 H 167 H (70-110) mg/dL Calcium (8.4-10.2) mg/dL AST (17-59) U/L ALT (4-49) U/L Total Protein (6.3-8.2) g/dL Albumin (3.5-5.0) g/dL Crossmatch 05/15/22 05/15/22 05/15/22 Range/Units 06:30 07:12 07:12 RBC 2.18 L (4.30-5.90) m/uL Hgb 6.2 L* (13.0-17.5) gm/dL Hct 20.9 L (39.0-53.0) % MCHC 29.7 L (31.0-37.0) g/dL RDW 17.4 H (11.5-15.5) % BUN 41 H (9-20) mg/dL Creatinine 1.37 H (0.66-1.25) mg/dL Glucose 133 H (74-99) mg/dL POC Glucose (mg/dL) 172 H (70-110) mg/dL Calcium 7.3 L (8.4-10.2) mg/dL AST 67 H (17-59) U/L ALT 57 H (4-49) U/L Total Protein 4.6 L (6.3-8.2) g/dL Albumin 2.4 L (3.5-5.0) g/dL Crossmatch Microbiology - Last 24 Hours (Table) 04/30/22 16:45 Acid Fast Bacilli Smear - Final Pleural Fluid Acid Fast Bacilli Culture - Preliminary
--- NOTE | 2022-05-15 09:35 | P.PN ---
Subjective Progress Note Date: 05/15/22 Principal diagnosis: Severe mitral valve regurgitation, coronary artery disease, paroxysmal atrial fibrillation, patent foramen ovale, tricuspid regurgitation, chronic systolic congestive heart failure. Previous medical history of hypertension, hyperlipidemia, coronary artery disease with history of previous PCI, non-ST elevated myocardial infarction in November 2021, ischemic cardiomyopathy with EF 40- 45%, right internal carotid stenosis 50-79%, renal insufficiency, anemia with history of GI bleed in November 2021 S/P transfusion PRBCs, diabetes mellitus type 2, osteoarthritis, severe COPD, chronic ongoing nicotine dependence, remote history of pneumonia, chronic low back pain and hearing disorder. Nasal swab positive for MSSA preoperative POD #26 Mitral valve repair with 28 mm physio-2 ring, CABG 3 with saphenous vein grafts to first diagonal, obtuse marginal, posterior descending coronary arteries, closure of PFO, endovascular vein harvest, modified Castanon maze procedure with full left-sided lesion set and ligation of the left atrial appendage, SCOTT by anesthesia. Protamine reaction intraoperative Postoperative acute blood loss anemia, expected given his history of anemia, hemodilution and cardiopulmonary bypass Acute on chronic kidney failure, likely from hypotension from intraoperative protamine reaction Elevated transaminases, likely from hypotension from intraoperative protamine reaction Left pleural effusion, status post left-sided thoracentesis with removal of [address] Aguilar on 04/30/22 and again on 05/04/22 for 550 mL fluid Leukocytosis, afebrile, CRP and pro-calcitonin trending down, second repeat sputum culture positive for aisha and Aspergillus, no pneumonia, no UTI, blood culture negative, likely due to sacral stage II ulcer The patient was seen and examined this morning sitting up in a recliner in the intensive care unit in no acute distress eating breakfast. Currently in sinus rhythm, hemodynamically stable. Currently on 3 L nasal cannula with oxygen saturation in the high 90s, able to achieve 1000 mL on his incentive spirometer. States pain is controlled on current medication regimen, pain is generally with coughing and to his coccyx. Labs and chest x-ray reviewed. Continues on Daptomycin, Zosyn per Dr. Chen. Continues to have low hemoglobin and blood transfusions. Plan is for endoscopy again today by Dr. Ramos as well as small bowel capsule endoscopy. Objective - Vital Signs Vital signs: Vital Signs Temp 98.2 F 05/15/22 08:00 Pulse 81 05/15/22 08:00 Resp 25 H 05/15/22 08:00 BP 106/51 05/15/22 08:00 Pulse Ox 98 05/15/22 08:00 FiO2 100 04/22/22 16:00 Intake & Output 05/14/22 05/15/22 05/15/22 18:59 06:59 18:59 Intake Total 810 140 200 Output Total 490 800 350 Balance 320 -660 -150 Weight 90.9 kg Intake: IV 310 80 200 0.9 110 80 0 Piperacillin-Tazobactam 3 100 100 .375 gm In Sodium Chloride 0.9% 100 ml @ 25 mls/hr IVPB Q8HR [facility] Rx# :[id number] Sodium Ferric Gluconat- 100 100 Sucrose 125 mg In Sodium Chloride 0.9% 100 ml @ 100 mls/hr IVPB DAILY [facility] Rx#:[id number] Oral 500 60 Output: Urine 490 800 350 Other: Voiding Method Urinal Urinal # Voids 1 # Bowel Movements 1 ABP, PAP, CO, CI - Last Documented Arterial Blood Pressure 137/47 Pulmonary Artery Pressure 67/18 Cardiac Output 5.8 Cardiac Index 2.8 - Exam CONSTITUTIONAL: Appears mostly comfortable, cooperative, very hard of hearing RESPIRATORY: Lungs sounds diminished bilaterally. Respirations even, nonlabored. Currently on 3 L high flow nasal cannula with oxygen saturation 92%. Able to achieve 1000 mL on incentive spirometry. Strong nonproductive cough. CARDIOVASCULAR: S1, S2 present. Regular rate and rhythm, sinus rhythm on telemetry. Sternum stable. Palpable peripheral pulses bilaterally. Bilateral lower extremity edema present. No calf pain or tenderness noted. Heart hugger in place. Antiembolism stockings, SCDs present. GASTROINTESTINAL: Abdomen soft, nontender, nondistended. Active bowel sounds present 4 quadrants. Tolerating diet, currently NPO for endoscopy. Positive bowel movement 05/14 GENITOURINARY: Continues to void, output 1290 mL in the last 24 hours INTEGUMENTARY: Skin is warm and dry, pale. Anterior chest incision well approximated. Bilateral EVH site well approximated. Stage II-III present to sacrum covered ABDs NEUROLOGIC: Cranial nerves II through XII intact MUSKULOSKELETAL: Able to move all extremities, strength equal bilaterally PSYCHIATRIC: Oriented to person place and time - Allied health notes Allied health notes reviewed: nursing - Labs CBC & Chem 7: 05/15/22 07:12 05/15/22 07:12 Labs: Abnormal Lab Results - Last 24 Hours (Table) 05/13/22 05/14/22 05/14/22 Range/Units 06:46 11:48 15:14 RBC 2.31 L (4.30-5.90) m/uL Hgb 7.0 L (13.0-17.5) gm/dL Hct 22.0 L (39.0-53.0) % MCHC (31.0-37.0) g/dL RDW 16.9 H (11.5-15.5) % BUN (9-20) mg/dL Creatinine (0.66-1.25) mg/dL Glucose (74-99) mg/dL POC Glucose (mg/dL) 131 H (70-110) mg/dL Calcium (8.4-10.2) mg/dL AST (17-59) U/L ALT (4-49) U/L Total Protein (6.3-8.2) g/dL Albumin (3.5-5.0) g/dL Crossmatch See Detail 05/14/22 05/14/22 05/14/22 Range/Units 16:16 16:40 20:13 RBC (4.30-5.90) m/uL Hgb (13.0-17.5) gm/dL Hct (39.0-53.0) % MCHC (31.0-37.0) g/dL RDW (11.5-15.5) % BUN (9-20) mg/dL Creatinine (0.66-1.25) mg/dL Glucose (74-99) mg/dL POC Glucose (mg/dL) 160 H 157 H 167 H (70-110) mg/dL Calcium (8.4-10.2) mg/dL AST (17-59) U/L ALT (4-49) U/L Total Protein (6.3-8.2) g/dL Albumin (3.5-5.0) g/dL Crossmatch 05/15/22 05/15/22 05/15/22 Range/Units 06:30 07:12 07:12 RBC 2.18 L (4.30-5.90) m/uL Hgb 6.2 L* (13.0-17.5) gm/dL Hct 20.9 L (39.0-53.0) % MCHC 29.7 L (31.0-37.0) g/dL RDW 17.4 H (11.5-15.5) % BUN 41 H (9-20) mg/dL Creatinine 1.37 H (0.66-1.25) mg/dL Glucose 133 H (74-99) mg/dL POC Glucose (mg/dL) 172 H (70-110) mg/dL Calcium 7.3 L (8.4-10.2) mg/dL AST 67 H (17-59) U/L ALT 57 H (4-49) U/L Total Protein 4.6 L (6.3-8.2) g/dL Albumin 2.4 L (3.5-5.0) g/dL Crossmatch Microbiology - Last 24 Hours (Table) 04/30/22 16:45 Acid Fast Bacilli Smear - Final Pleural Fluid Acid Fast Bacilli Culture - Preliminary - Imaging and Cardiology Chest x-ray: report reviewed, image reviewed Assessment and Plan Assessment: 1. Severe mitral valve regurgitation, status post mitral valve repair 2. Coronary artery disease, previous PCI, previous non-STEMI, status post CABG 3 3. History of paroxysmal atrial fibrillation, previous cardioversion, on [facility] outpatient for anticoagulation, status post modified Castanon maze and li gation of left atrial appendage 4. Patent foramen ovale, status post closure 5. Tricuspid regurgitation 6. Chronic systolic congestive heart failure, ischemic cardiomyopathy with EF 40-45% 7. History of hypertension 8. History hyperlipidemia, treated, cholesterol 150, LDL 72 9. Right internal carotid stenosis 50-79% 10. Acute on chronic blood loss anemia with history of GI bleed in November 2021 S/P transfusion PRBCs 11. Acute on chronic renal failure, baseline creatinine 1.28-1.6 12. Diabetes mellitus type 2, preoperative hemoglobin A1c 5.6% 13. Osteoarthritis 14. Severe COPD, preoperative FEV1 41% of predicted 15. Chronic ongoing nicotine dependence 16. Remote history of pneumonia 17. Chronic low back pain, hearing disorder 18. Nasal swab positive for MSSA preoperative 19. Postoperative acute blood loss anemia, expected 20. Elevated transaminases 21. Protamine reaction intraoperative 22. Leukocytosis, afebrile, CRP and pro-calcitonin trending down, sputum culture negative, no pneumonia, no UTI, likely due to sacral stage II ulcer 23. Medical debility, generalized weakness 24. Stage II-III decubitus to his buttocks, status post surgical debridement 25. Small left-sided pleural effusion, status post left-sided thoracentesis on 04/30/2022 26. Urinary retention possibly secondary to constipation Plan: 1. Continue low dose aspirin, statin, beta siomara 2. Wean O2 as tolerated. Encourage incentive spirometry 10 times every hour w hile awake. Bronchodilators per pulmonology 3. Increase activity, ambulate as tolerated. PT/OT/cardiac rehab following. Shower daily 4. Will monitor daily labs and chest x-rays. Electrolyte replacement per protocol. Will transfuse 1 unit packed red blood cells today, continue IV Bumex 5. Patient to undergo EGD and small bowel capsule study today, currently NPO 6. GI/DVT prophylaxis. Remains on IV protonix BID 7. Insulin management per primary care service. Patient is a diabetic with a preoperative hemoglobin A1c of 5.6% on multiple oral medications, needs tight blood sugar control 8. Pain control with current medication regimen. Avoid narcotics 9. Continue Flomax 10. Strict accurate intake and output. Daily weights. 11. Dr. Chen consulted due to leukocytosis. Continue daptomycin, Zosyn for 2 weeks. UA negative, second repeat sputum culture positive for aisha and Aspergillus, blood cultures negative. WBC, CRP, pro-calcitonin trending down. Remains afebrile 12. Smoking cessation counseling and education provided to patient and family 13. Medihoney ordered for sacral decubitus per Dr. Chen 14. More recommendations to follow based on patient's clinical course.
[2022-05-15] MEDS: IPRATROPIUM-ALBUTEROL 3 ML NEB INHALATION SCH ×4 (09:47→19:50)
[2022-05-15] MEDS: PIPERACILLIN-TAZOBACTAM 3.375 GM in SODIUM CHLORIDE 0.9% 100 ML IVPB SCH ×2 (09:47→17:03)
[2022-05-15] MEDS: SYMBICORT 160-4.5 MCG INHALER INHALATION SCH ×2 (09:47→19:51)
[2022-05-15 10:34] VITALS: BMI 29.5
[2022-05-15 11:44] LABS: Glucose,Whole Blood 150 mg/dL (70-110)
[2022-05-15] MEDS ORDERED: PROPOFOL 10 MG/ML 20 ML VIAL IV ONE (12:39)
[2022-05-15] MEDS ORDERED: LIDOCAINE 2% INJ 20 MG/ML (2 ML VIAL) ONE (12:39)
--- NOTE | 2022-05-15 12:55 | P.PN ---
Subjective Progress Note Date: 05/15/22 CHIEF COMPLAINT: GI bleed, sacral decubitus ulcer HISTORY OF PRESENT ILLNESS: Patient remains in the ICU. Patient is status post EGD revealing duodenitis, hiatal hernia, distal esophagitis. There was blood in the third and fourth portion of the duodenum. Patient also had incision and drainage and debridement of sacral decubitus ulcer with abscess on 05/08/22. Patient had a black stool last night. His hemoglobin this morning did drop from 7-6.2 and is receiving another unit of blood. He did have a low-grade temp of 100.2 yesterday. Patient scheduled for EGD and capsule endoscopy today with GI service. Patient denies any abdominal pain. His sacral pain is controlled. Denies any nausea or vomiting. Currently afebrile. WBC is 6.6 Hgb 6.2 platelets 2:15 3137 creatinine 1.37 PHYSICAL EXAM: VITAL SIGNS: Reviewed. GENERAL: Well-developed in no acute distress. HEENT: No sclera icterus. Extraocular movements grossly intact. Moist buccal mucosa. Head is atraumatic, normocephalic. ABDOMEN: Soft. Nondistended. Nontender. NEUROLOGIC: Alert and oriented. Cranial nerves II through XII grossly intact. ASSESSMENT: 1. Sacral decubitus ulcer and abscess status post incision, drainage and debridement 2. Acute GI bleed possibly due to AVMs. Status post EGD revealing duodenitis, hiatal hernia and distal esophagitis PLAN: -Patient scheduled for EGD with possible small bowel capsule endoscopy with GI service today -Continue local wound care to sacral ulcer -Patient can shower and clean sacral wound in shower -Continue offloading -Continue to hold Eliquis -Continue PPI -Continue to monitor hemoglobin and transfuse as needed -Continue monitoring for any signs or symptoms of bleeding Physician Center Director Lead Teacher note has been reviewed by physician. Signing provider agrees with the documented findings, assessment, and plan of care. I have personally seen and examined the patient, reviewed the SECONDARY HISTORY TEACHER /PAs history, exam and MDM and agree with the assessment and plan as written. Based on total visit time, I have performed more than 50% of the visit. As above: Patient had further black stools. GI was able to identify bleeding on today's endoscopy from the third portion of the duodenum. That is where the blood was seen on the recent endoscopy. Cauterization and clip placement was performed. Hopefully this will alleviate any further bleeding. Continue local wound care. We'll follow. Objective - Vital Signs Vital signs: Vital Signs Temp 98.2 F 05/15/22 12:00 Pulse 80 05/15/22 12:00 Resp 20 05/15/22 12:00 BP 113/69 05/15/22 12:00 Pulse Ox 97 05/15/22 12:00 FiO2 100 04/22/22 16:00 Intake & Output 05/14/22 05/15/22 05/15/22 18:59 06:59 18:59 Intake Total 810 140 200 Output Total 348 454 5674 Balance 320 -660 -950 Weight 90.9 kg 90.9 kg Intake: IV 310 80 200 0.9 110 80 0 Piperacillin-Tazobactam 3 100 100 .375 gm In Sodium Chloride 0.9% 100 ml @ 25 mls/hr IVPB Q8HR [facility] Rx# :[id number] Sodium Ferric Gluconat- 100 100 Sucrose 125 mg In Sodium Chloride 0.9% 100 ml @ 100 mls/hr IVPB DAILY [facility] Rx#:[id number] Oral 500 60 Blood Product 0 Rc As-1 Unit 0 [id number] Output: Urine 104 230 3163 Other: Voiding Method Urinal Urinal Urinal # Voids 1 0 # Bowel Movements 1 1 ABP, PAP, CO, CI - Last Documented Arterial Blood Pressure 137/47 Pulmonary Artery Pressure 67/18 Cardiac Output 5.8 Cardiac Index 2.8 - Labs CBC & Chem 7: 05/15/22 07:12 05/15/22 07:12 Labs: Abnormal Lab Results - Last 24 Hours (Table) 05/13/22 05/14/22 05/14/22 Range/Units 06:46 15:14 16:16 RBC 2.31 L (4.30-5.90) m/uL Hgb 7.0 L (13.0-17.5) gm/dL Hct 22.0 L (39.0-53.0) % MCHC (31.0-37.0) g/dL RDW 16.9 H (11.5-15.5) % BUN (9-20) mg/dL Creatinine (0.66-1.25) mg/dL Glucose (74-99) mg/dL POC Glucose (mg/dL) 160 H (70-110) mg/dL Calcium (8.4-10.2) mg/dL AST (17-59) U/L ALT (4-49) U/L Total Protein (6.3-8.2) g/dL Albumin (3.5-5.0) g/dL Crossmatch See Detail 05/14/22 05/14/22 05/15/22 Range/Units 16:40 20:13 06:30 RBC (4.30-5.90) m/uL Hgb (13.0-17.5) gm/dL Hct (39.0-53.0) % MCHC (31.0-37.0) g/dL RDW (11.5-15.5) % BUN (9-20) mg/dL Creatinine (0.66-1.25) mg/dL Glucose (74-99) mg/dL POC Glucose (mg/dL) 157 H 167 H 172 H (70-110) mg/dL Calcium (8.4-10.2) mg/dL AST (17-59) U/L ALT (4-49) U/L Total Protein (6.3-8.2) g/dL Albumin (3.5-5.0) g/dL Crossmatch 05/15/22 05/15/22 05/15/22 Range/Units 07:12 07:12 11:42 RBC 2.18 L (4.30-5.90) m/uL Hgb 6.2 L* (13.0-17.5) gm/dL Hct 20.9 L (39.0-53.0) % MCHC 29.7 L (31.0-37.0) g/dL RDW 17.4 H (11.5-15.5) % BUN 41 H (9-20) mg/dL Creatinine 1.37 H (0.66-1.25) mg/dL Glucose 133 H (74-99) mg/dL POC Glucose (mg/dL) 150 H (70-110) mg/dL Calcium 7.3 L (8.4-10.2) mg/dL AST 67 H (17-59) U/L ALT 57 H (4-49) U/L Total Protein 4.6 L (6.3-8.2) g/dL Albumin 2.4 L (3.5-5.0) g/dL Crossmatch Microbiology - Last 24 Hours (Table) 04/30/22 16:45 Acid Fast Bacilli Smear - Final Pleural Fluid Acid Fast Bacilli Culture - Preliminary
[2022-05-15] MEDS ORDERED: IV FLUID CONTINUATION 500 ML IV ONE (13:04)
--- NOTE | 2022-05-15 13:05 | P.PCN ---
Date of Procedure: 05/15/22 Procedure(s) Performed: BRIEF HISTORY: Patient is a 72-year-old, pleasant, white male admitted hospital 4 weeks ago for CABG and mitral valve repair. Her last 2 weeks he had gradual drop in hemoglobin and black results requiring total of 7 units of the obesity transfusion last one was this morning. He underwent an upper endoscopy by Dr. Cardenas a week ago and was noted to have some fresh blood in the duodenum but no source could be identified. Because of persistent melena and intermittent drop in hemoglobin requiring blood transfusion he scheduled for a EGD/enteroscopy today. . PROC surgeryEDURE PERFORMED: Esophagogastroduodenoscopy/enteroscopy with argon plasma coagulation and Endo Clip placement . PREOPERATIVE DIAGNOSIS: acute upper GI bleed requiring multiple blood transfusions last 2 weeks. IV sedation per anesthesia. PROCEDURE: After informed consent was obtained, the patient was brought into the endoscopy unit. IV sedation was administered by Anesthesia under continuous monitoring. Initially the Olympus GIF-140 video endoscope was inserted into the mouth. Esophagus intubated without any difficulty. It was gradually advanced into the stomach and duodenum and carefully examined. The bulb and the second part of the duodenum appeared normal. the scope was advanced into the proximal jejunum. The proximal jejunum appeared normal. In the third portion of the duodenum just beyond the ampullary orifice there was active oozing identified and after irrigation there was a 5 mm arteriovenous malformation with active bleeding identified. At this time he cauterized using argon plasma coagulation but could not stop the bleeding. Subsequently 2 endoclips were placed with good hemostasis. There was another small adenomatous malformation the bulb of the duodenum which was not bleeding which was also quite ablated with argon plasma. The scope at this time was withdrawn to the stomach, adequately insufflated with air, and upon careful examination, mucosa of the antrum, at 2 small nonbleeding AVMs which were coagulated using argon plasma. Rest of the body, cardia and the fundus appeared normal. The scope was then withdrawn into the esophagus. The GE junction was located at 39 cm from the incisors. The esophagus appeared normal. There were no erosions or ulcerations seen and the patient tolerated the procedure well. IMPRESSION: 1. 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 That will be advanced as tolerated. Monitor CBC on a daily basis and transfuse as needed..
--- NOTE | 2022-05-15 14:13 | P.PN ---
Subjective Progress Note Date: 05/15/22 On today's evaluation of 05/14/2022, the patient is postop day #25. The patient is doing well. He is on good progress postop. His chest x-ray still showing evidence of bilateral pleural effusion that are essentially small and the patient is currently on 3 L of oxygen by nasal cannula. . He is breathing comfortably. He is alert and oriented 3. He is ambulating. I reviewed the ultrasound the chest and the chest x-ray and there is no need for thoracentesis at this point in time.. The patient is breathing adequately for now. No significant shortness of breath. He is ambulating. He is using the incentive spirometer. Over the past 24-48 hours, there was a drop in hemoglobin down to 6.5 and the patient was given units of packed RBC and hemoglobin today is up to 7.2. He continues to have some autonomic black tarry stools according to nursing staff. His hemoglobin is to be monitored. He is known to have previous duodenal ulcers. The patient has a hemoglobin of 7.2 from today. Creatinine is also improved and is currently down to 1.3 with a BUN of 34. Continues to receive Lasix on a daily basis. He is also on aspirin 81 mg by mouth daily, metoprolol 25 mg twice a day and the patient is also being treated for a sacral decubitus ulcer and he has many honey and Opteform and is also covered with a combination of Zosyn and daptomycin. He is urinating adequately. He was treate d with IV iron regarding his blood loss anemia. On 05/17/2022, the patient is postop day #26. Decision same as yesterday. Continues to have small bilateral pleural effusions. Remains on oxygen at 3 L per minute nasal cannula. He did have another episode of bloody stool in hemoglobin drop down to 6.2 and the patient is receiving a unit of packed RBC and the patient is going to undergo a EGD today to identify the source of bleeding. No hematemesis. No abdominal distention or pain. Antibiotic coverage remains unchanged and the patient is currently on daptomycin and Zosyn. He is weak. He is being diuresed and a daily basis with Bumex 2 mg IV every 24 hours. On his blood work, the response at 6.6 with a hemoglobin of 6.2 and a platelet count of 215, sodium is at 137 with a potassium level of 4 and a BUN of 41 with a creatinine of 1.37. No altered mentation. He remains weak. No focal neurological deficits. He is receiving wound care to his sacral decubitus ulceration. Objective - Vital Signs Vital signs: Vital Signs Temp 98.2 F 05/15/22 08:00 Pulse 80 05/15/22 09:00 Resp 18 05/15/22 09:00 BP 110/65 05/15/22 09:00 Pulse Ox 97 05/15/22 09:00 FiO2 100 04/22/22 16:00 Intake & Output 05/14/22 05/15/22 05/15/22 18:59 06:59 18:59 Intake Total 810 140 200 Output Total 490 800 350 Balance 320 -660 -150 Weight 90.9 kg Intake: IV 310 80 200 0.9 110 80 0 Piperacillin-Tazobactam 3 100 100 .375 gm In Sodium Chloride 0.9% 100 ml @ 25 mls/hr IVPB Q8HR ZULMA Rx# :[id number] Sodium Ferric Gluconat- 100 100 Sucrose 125 mg In Sodium Chloride 0.9% 100 ml @ 100 mls/hr IVPB DAILY ZULMA Rx#:[id number] Oral 500 60 Output: Urine 490 800 350 Other: Voiding Method Urinal Urinal Urinal # Voids 1 0 # Bowel Movements 1 ABP, PAP, CO, CI - Last Documented Arterial Blood Pressure 137/47 Pulmonary Artery Pressure 67/18 Cardiac Output 5.8 Cardiac Index 2.8 - Exam CONSTITUTIONAL: Sitting up to the bedside chair in the intensive care unit, appears comfortable, cooperative, no apparent acute distress. The patient is currently on 3 L O2 nasal cannula HEENT: Neck is supple, no JVD, no lymphadenopathy. RESPIRATORY: Lungs sounds essentially clear throughout, diminished to his bilateral bases and few scattered crackles to his bilateral bases. Respirations are symmetrical and nonlabored. CARDIOVASCULAR: Regular rhythm and rate. S1 and S2 present, negative for S3, or gallop, soft systolic murmur heard best to his left sternal border. Sternum is stable. Palpable peripheral pulses bilaterally, +1 edema to his bilateral lower extremities. No calf pain or tenderness noted. Heart hugger in place with patient demonstrating appropriate use. Knee-high RAFAEL hose and sequential compression devices in place to his bilateral lower extremities. Bedside telemetry showing normal sinus rhythm with heart rate 81 BPM. GASTROINTESTINAL: Abdomen soft, nontender, nondistended. Active bowel sounds present 4 quadrants. Tolerating diet. Passing flatus. No guarding or rigidity. n GENITOURINARY: Within normal limits INTEGUMENTARY: Skin is warm and dry with no evidence of clubbing or cyanosis. Midline sternal incision clean dry and well approximated, covered with dry intact dressing. Bilateral lower extremity EVH sites well approximated without redness or drainage. Stage II to III decubitus ulcer present to his buttocks covered with optifoam. MUSKULOSKELETAL: Able to move all extremities, strength equal bilaterally, generalized weakness. PSYCHIATRIC: Alert and oriented to person place and time, appropriate affect, intact judgment and insight. - Labs CBC & Chem 7: 05/15/22 07:12 05/15/22 07:12 Labs: Abnormal Lab Results - Last 24 Hours (Table) 05/13/22 05/14/22 05/14/22 Range/Units 06:46 11:48 15:14 RBC 2.31 L (4.30-5.90) m/uL Hgb 7.0 L (13.0-17.5) gm/dL Hct 22.0 L (39.0-53.0) % MCHC (31.0-37.0) g/dL RDW 16.9 H (11.5-15.5) % BUN (9-20) mg/dL Creatinine (0.66-1.25) mg/dL Glucose (74-99) mg/dL POC Glucose (mg/dL) 131 H (70-110) mg/dL Calcium (8.4-10.2) mg/dL AST (17-59) U/L ALT (4-49) U/L Total Protein (6.3-8.2) g/dL Albumin (3.5-5.0) g/dL Crossmatch See Detail 05/14/22 05/14/22 05/14/22 Range/Units 16:16 16:40 20:13 RBC (4.30-5.90) m/uL Hgb (13.0-17.5) gm/dL Hct (39.0-53.0) % MCHC (31.0-37.0) g/dL RDW (11.5-15.5) % BUN (9-20) mg/dL Creatinine (0.66-1.25) mg/dL Glucose (74-99) mg/dL POC Glucose (mg/dL) 160 H 157 H 167 H (70-110) mg/dL Calcium (8.4-10.2) mg/dL AST (17-59) U/L ALT (4-49) U/L Total Protein (6.3-8.2) g/dL Albumin (3.5-5.0) g/dL Crossmatch 05/15/22 05/15/22 05/15/22 Range/Units 06:30 07:12 07:12 RBC 2.18 L (4.30-5.90) m/uL Hgb 6.2 L* (13.0-17.5) gm/dL Hct 20.9 L (39.0-53.0) % MCHC 29.7 L (31.0-37.0) g/dL RDW 17.4 H (11.5-15.5) % BUN 41 H (9-20) mg/dL Creatinine 1.37 H (0.66-1.25) mg/dL Glucose 133 H (74-99) mg/dL POC Glucose (mg/dL) 172 H (70-110) mg/dL Calcium 7.3 L (8.4-10.2) mg/dL AST 67 H (17-59) U/L ALT 57 H (4-49) U/L Total Protein 4.6 L (6.3-8.2) g/dL Albumin 2.4 L (3.5-5.0) g/dL Crossmatch Microbiology - Last 24 Hours (Table) 04/30/22 16:45 Acid Fast Bacilli Smear - Final Pleural Fluid Acid Fast Bacilli Culture - Preliminary Assessment and Plan Plan: Severe mitral valve regurgitation, status post mitral valve repair, postoperative day # 26 Coronary artery disease, previous PCI, previous non-STEMI, status post CABG 3, postop day # 26 History of paroxysmal atrial fibrillation, previous cardioversion, on Eliquis outpatient for anticoagulation, status post modified Castanon maze and ligation of left atrial appendage, postop day #26, he is currently in sinus rhythm and the patient is currently off anticoagulants. Patent foramen ovale, status post closure, postop day #26 Atrial fibrillation, expected outcome of surgery and the patient is back to normal sinus rhythm. Chronic systolic congestive heart failure, ischemic cardiomyopathy with EF 40- 45% Acute on chronic drop in hemoglobin/anemia with a component of a suspected upper GI bleeding. 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, post 9 Units PRBC, and currently is receiving a unit of packed RBC for drop in hemoglobin down to 6.2 History of hypertension History hyperlipidemia, treated, cholesterol 150, LDL 72 Right internal carotid stenosis 50-79% Previous Anemia with history of GI bleed in November 2021 S/P transfusion PRBCs Acute on chronic renal failure, the creatinine is stable currently down to 1.37 Diabetes mellitus type 2, preoperative hemoglobin A1c 5.6% currently Levemir insulin 8 units along with a sliding scale coverage Osteoarthritis Severe COPD, preoperative FEV1 41% of predicted Chronic ongoing nicotine dependence Remote history of pneumonia Chronic low back pain, hearing disorder Nasal swab positive for MSSA preoperative Postoperative acute blood loss anemia, expected Elevated transaminases, most likely due to shock liver and the significant elevation of the ALT and AST which are being monitored, and the level is also improving and there is a decline and LFTs Protamine reaction intraoperative decubitus ulcer stage 2, post wound debridement left-sided pleural effusion post thoracentesis of the left Left lung removal of 800 mL of pleural fluid. Plan: Transfuse 1 unit of packed RBC EGD today Keep nothing by mouth Continue IV iron Monitor hemoglobin Continue Bumex 2 mg on a daily basis IV Monitor hemoglobin and watch for any signs of GI bleeding Continue IV iron Continue aspirin continue metoprolol 25 mg twice a day continue wound care Continue Zosyn and daptomycin Continue using incentive spirometer Continue supportive care
[2022-05-15] MEDS: guaiFENesin-DM 600/30MG 1 EACH TAB.ER.12H PO SCH ×2 (14:14→20:57)
[2022-05-15] MEDS: POTASSIUM CHLORIDE ER 10 MEQ TAB.ER.PRT PO SCH (14:15)
[2022-05-15] MEDS: TAMSULOSIN 0.4 MG CAP.ER.24H PO SCH (14:15)
[2022-05-15] MEDS: DAPAGLIFLOZIN PROPANEDIOL 5 MG TABLET PO SCH (14:15)
[2022-05-15] MEDS: ATORVASTATIN 20 MG TAB PO SCH (14:15)
[2022-05-15] MEDS: ASCORBIC ACID 500 MG TAB PO SCH (14:16)
[2022-05-15] MEDS: NON FORMULARY DRUG SQ SCH (14:17)
[2022-05-15 15:06] LABS: Anisocytosis Slight; HCT 24.4 % (39.0-53.0); Hypochromasia Marked; MCH 30.7 pg (25.0-35.0); MCHC 32.7 g/dL (31.0-37.0); MCV 94.1 fL (80.0-100.0); Mean Platelet Volume 8.2; Platelet Count 228 k/uL (150-450); Poikilocytosis Moderate; RBC 2.59 m/uL (4.30-5.90); RDW 16.5 % (11.5-15.5); WBC 6.7 k/uL (3.8-10.6)
--- NOTE | 2022-05-15 16:20 | P.PN ---
Progress Note - Text Progress Note Date: 05/15/22 Patient is a pleasant 72-year-old male came in the for elective mitral valve repair, CABG x 3 vessel, maze procedure, PFO closure. Patient is extubated sitting in the chair patient still has a Bosque-Varghese catheter, CVP of around 12, cardiac index 3.1 patient creatinine went up to 1.70 resulting elevated potassium of 5.5 patient is off pressor support, off nitro drip patient still has 2 mediastinal and one left-sided chest tube. 04/21/2022 Patient is evaluated in ICU today, sitting up in chair. He is postoperative day #2 for elective mitral valve repair, hematocrit bypass grafting maze procedure and PFO closure. He is on BiPAP with fio2 of 40% Continues with mediastinal/left pleural chest tubes. Continue with indwelling catheter. Received dose of IV albumin yesterday afternoon. Chest xray today showing ongoing mild pulmonary vascular congestion, increasing patchy bibasilar opacities, atelectasis vs. pulmonary edema. Currently on lasix gtt at 10mls/hr, continues on dopamine gtt at 3.68 mls/hr. Continues on insulin gtt and blood glucose remains in the 140 to 130s. Labs today showing sodium 132, potassium 6.1 improved to 5.4, BUN 41, creatinine 2.53, elevated liver enzymes. Hgb 7.3. 04/22/2022 Patient continues to be monitored closely in intensive care unit, he is postoperative day #3 for elective mitral valve repair, maze procedure, PFO closure. Managed by primary team. He had limited echocardiogram completed showing EF 45 to 50%, mild to moderate MR, moderate pulmonary hypertension with moderate TR. Chest xray today shows slight improvement in pulmonary vascular congestion. Maintained on lasix gtt at 10mls/hr, dopamine gtt, Continues with 2 mediastinal chest tubes. Continues with indwelling catheter. Continues with right IJ swan/cordis, right radial arterial line. He has been weaned off BiPAP currently on high flow cannula at 15L. He has been tolerating some diet. Continues on insulin gtt which will continue until his diet stabilizes. Current glucose in the 140s. Creatinine today 3.14. April 23: I assumed care of patient today from [facility]. ICU. In a recliner. Tired. Little oral intake. Nasal cannula. Drips include IV dopamine and Lasix. Some shortness of breath. Mooney catheter. 04/24/2022: ICU. Up. 4 L nasal cannula. Did eat better. Edema present. On the Lasix drip 5 mg an hour. Some improvement in creatinine. 04/25/2022: ICU. Up in a recliner. Eating better. at the bedside. Edema present. Off Lasix drip. Feeling better. Creatinine coming down. LFTs improving. Home dose of Victoza was started 04/26/2022: ICU. Up in a recliner. 4 L nasal cannula. Eating about 50%. Accu-Cheks noted. 04/27/2022: ICU: Patient went into atrial fibrillation overnight. Put on oral amiodarone and Lopressor per CTS.. Some worsening of shortness of breath. Placed on IV Lasix. Eating some. Up in a recliner. 04/28/2022: ICU. Patient received Lopressor today for the A. fib. Patient went down into sinus rhythm. Blood pressure also dropped her was 70 systolic. Oxygen increased to 4 L. Short of breath. Patient did walk 10-12 steps up to the door. Eating fair. Lower extremity edema edema present. Up in a chair. Tired. 04/29/2022: ICU. Short of breath. 3 L nasal cannula. Eating fair. Edema pre sent. Getting Bumex. Getting IV albumin and IV calcium. Using incentive spirometry. Up in a chair. Discussed with at the bedside. Increasing white count, infiltrated urine chest x-ray suggestive of pneumonia. Started on IV cefepime 04/30/2022: ICU. Remains short of breath. 3 L nasal cannula. Started on IV cefepime yesterday.. Oral intake fair. Edema present. Remains on Bumex. Fo sher catheter. Discussed with patient and at the bedside. Discussed with Dr. Cortez from cardiothoracic surgery. 05/01/2022: ICU. Zaroxolyn was added. Good diuresis. Breathing better. On IV cefepime. Left paracentesis is done. 850 mL removed. Oral intake fair. Breathing a bit better. Telemetry shows sinus rhythm. 2 L nasal cannula. at the bedside. Will DC Actos. Even though smaller dose. Given CHF renal failure. Increase Lantus to 12 units. 05/02/2022: ICU. Over 3 is a negative fluid balance. Last 24 hours. Some improvement in breathing. Oral intake fair. Remains in atrial fibrillation controlled. 2 L nasal cannula. Add Diamox. 4 metabolic alkalosis 05/03/2022: ICU. This morning patient became short of breath. Dr. [place] from [place] consulted for sacral decub. Remains on IV cefepime. Oral intake fair. Had a BM. On IV Bumex. I discussed with Dr. Aguilar from pulmonary. Patient is known to him. Advanced COPD. His right lung changes are chronic. Has had previous CAT scans. He may have had a located effusion. 05/04/2022: ICU. Breathing a bit better. Hemoglobin dropped to 6.1. Awaiting transfusion. Tolerating diet. On IV cefepime. Patient started on IV eraxis by Dr. Pres[place] from [place]. 05 May 2022: ICU. Patient received a unit of blood yesterday evening. Getting another unit of blood today. Breathing better. Remains on IV Bumex. IV cefepime discontinued. Remains on IV Eraxis. Oral intake fair. Up in a chair. at the bedside. Increase Levemir to 20 units at night. 05/06/2022: ICU. Patient received a 3rd unit blood this morning. Breathing better. Had some blood in his urine. On 2 L is cannula. Sitting up in a chair, eating better. Some cough with brownish sputum. 05/07/2022: ICU. Up in a chair. Eating better. On 2 L nasal cannula. On IV daptomycin. IV Zosyn. Has had dark stools but is on iron. We'll hold off oral iron to see if stool color lightens. Add NovoLog 5 units scheduled with meals. Hemoglobin dropped again to 6.2. Received 1 unit of blood today. 05/08/2022: ICU. Seen by me this morning. Hemoglobin further dropped again. 5.9. Data patient underwent EGD by Dr. Fiore. Fresh blood seen in the third and fourth portion of duodenum of blood clots noted. No obvious source noted. Patient is on PPI. Also sacral decub ulcer abscess also drained. Patient received a unit of blood this morning. Discussed with Neema from cardiothoracic team. Patient does not like hospital food. has been free eating food from outside. Including [employer] fish [employer] etc. Difficult to control Accu- Cheks. Concerned the patient may become hypoglycemic if a more aggressive. farxiga is being added. 05/09/2022: ICU. No further drop in hemoglobin after blood transfusion yesterday. Patient is off eliquis. Had a dark stool today. Oral intake fair. On 2 L nasal cannula. On IV daptomycin IV Zosyn. 05/10/2022: ICU. Patient had no further drop in hemoglobin. Had a black stool. Off oxygen. Eating well. Accu-Cheks will stabilize. On IV daptomycin IV Zosyn. Sputum growing Margo albicans and Aspergillus fumigators. We'll decrease Levemir to 16 units. Decreased scheduled NovoLog to 3 units with meals. 05/11/2022: ICU. Patient was short of breath this morning. Remains on IV Bumex. Had black stool today. Hemoglobin remained stable. Accu-Cheks followed. Levemir cutback to 12 units at night. Remains on IV daptomycin IV Zosyn. Up in a chair. 05/12/2022: ICU. Some shortness of breath. On 2 L nasal cannula. Hemoglobin remained stable. Oral intake fair. On IV daptomycin and IV Zosyn. Up in a chair. at the bedside. 05/13/2022: ICU. Patient continues to be a bit short of breath. IV Bumex. Remains on IV daptomycin IV Zosyn. Some cough. Tired. Continues to have dark stools. Hemoglobin dropped again to 6.5. Received a unit of blood this morning. GI Dr. Michelle Ramos's been consulted. Accu-Cheks running low lower side. DC Levemir. 05/14/2022: ICU. Patient's had more dark stools. Seen by Dr. Michelle Ramos from GI today. For endoscopy tomorrow. Tolerating diet. On 2 L cannula. Patient is on Levemir since yesterday. 05/15/2022: ICU. Patient was seen by me earlier today. Hemoglobin dropped again. Received a unit of blood. Later this afternoon patient went down for EGD by Dr. Michelle Ramos.:1. 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 2 small gastric AVMs with no active bleeding status post coagulation with argon plasma Active Medications Acetaminophen (Acetaminophen Tab 325 Mg Tab) 650 mg PO Q6HR PRN PRN Reason: Fever and/ or Mild Pain Last Admin: 05/14/22 17:04 Dose: 650 mg Hydrocodone Bitart/Acetaminophen (Hydrocodone/Apap 5-325mg 1 Each Tab) 1 each PO Q4HR PRN PRN Reason: Moderate Pain (Scale 4 to 6) Last Admin: 05/14/22 23:58 Dose: 1 each Albuterol/Ipratropium (Ipratropium-Albuterol 3 Ml Neb) 3 ml INHALATION RT-Q2H PRN PRN Reason: Shortness Of Breath Or Wheezing Last Admin: 05/15/22 14:17 Dose: 3 ml Albuterol/Ipratropium (Ipratropium-Albuterol 3 Ml Neb) 3 ml INHALATION RT-QID [facility] Last Admin: 05/15/22 12:25 Dose: Not Given Ascorbic Acid (Ascorbic Acid 500 Mg Tab) 500 mg PO DAILY [facility] Last Admin: 05/15/22 14:16 Dose: 500 mg Aspirin (Aspirin 81 Mg) 81 mg PO DAILY [facility] Last Admin: 05/15/22 08:23 Dose: Not Given Atorvastatin Calcium (Atorvastatin 20 Mg Tab) 20 mg PO DAILY [facility] Last Admin: 05/15/22 14:15 Dose: 20 mg Benzocaine/Menthol (Benzocaine/Menthol Lozeng 1 Each Lozenge) 1 each MUCOUS MEM Q2HR PRN PRN Reason: Sore Throat Last Admin: 05/14/22 16:00 Dose: 1 each Bisacodyl (Bisacodyl 10 Mg Supp) 10 mg RECTAL DAILY PRN PRN Reason: Constipation Last Admin: 05/09/22 09:10 Dose: 10 mg Budesonide/Formoterol Fumarate (Symbicort 160-4.5 Mcg Inhaler) 2 puff INHALATION RT-BID [facility] Last Admin: 05/15/22 09:47 Dose: 2 puff Bumetanide (Bumetanide 0.25 Mg/Ml 10 Ml Vial) 2 mg IV DAILY [facility] Last Admin: 05/15/22 08:50 Dose: 2 mg Dapagliflozin (Dapagliflozin Propanediol 5 Mg Tablet) 5 mg PO DAILY [facility] Last Admin: 05/15/22 14:15 Dose: 5 mg Dextrose/Water (Dextrose 50% Syringe 50 Ml) 25 ml IVP PER PROTOCOL PRN; Protocol PRN Reason: Hypoglycemia Dextrose/Water (Dextrose 50% Syringe 50 Ml) 50 ml IVP PER PROTOCOL PRN; Protocol PRN Reason: Hypoglycemia Guaifenesin/Dextromethorphan (Guaifenesin-Dm 600/30mg 1 Each Tab.Er.12h) 1 each PO Q12HR [facility] Last Admin: 05/15/22 14:14 Dose: 1 each Daptomycin 360 mg/ Sodium (Chloride) 50 mls @ 100 mls/hr IVPB Q24H [facility]; Protocol Last Admin: 05/14/22 23:13 Dose: 100 mls/hr Piperacillin Sod/Tazobactam (Sod 3.375 gm/ Sodium Chloride) 100 mls @ 25 mls/hr IVPB Q8HR [facility]; Protocol Last Admin: 05/15/22 09:47 Dose: 25 mls/hr Ferric Sodium Gluconate 125 mg (/ Sodium Chloride) 110 mls @ 100 mls/hr IVPB DAILY [facility] Stop: 05/16/22 09:01 Last Admin: 05/15/22 08:38 Dose: 100 mls/hr Insulin Aspart (Insulin Aspart (Novolog) 100 Unit/Ml Vial) 0 unit SQ ACHS [facility]; Protocol Last Admin: 05/15/22 11:57 Dose: Not Given Lidocaine (Lidocaine 5% Patch) 2 patch TOPICAL DAILY [facility]; Protocol Last Admin: 05/15/22 08:50 Dose: 2 patch Magnesium Hydroxide (Magnesium Hydroxide 2,400 Mg/10 Ml Cup) 2,400 mg PO BID PRN PRN Reason: Constipation Last Admin: 04/22/22 07:08 Dose: 2,400 mg Metoprolol Tartrate (Metoprolol Tartrate 25 Mg Tab) 25 mg PO BID [facility] Last Admin: 05/15/22 08:46 Dose: 25 mg Miscellaneous Information (Potassium Replacement Protocol 1 Each Misc) 1 each MISCELLANE DAILY PRN; Protocol PRN Reason: Per Protocol Miscellaneous Information (Magnesium Replacement Protocol 1 Each Misc) 1 each MISCELLANE DAILY PRN; Protocol PRN Reason: Per Protocol Non-Formulary Medication (Non Formulary Drug) 1 each SQ DAILY [facility] Last Admin: 05/15/22 14:17 Dose: 1 each Ondansetron HCl (Ondansetron 4 Mg/2 Ml Vial) 4 mg IVP Q6HR PRN PRN Reason: Nausea And Vomiting Last Admin: 05/13/22 20:09 Dose: 4 mg Pantoprazole Sodium (Pantoprazole 40 Mg/10 Ml Vial) 40 mg IVP BID [facility] Last Admin: 05/15/22 08:46 Dose: 40 mg Potassium Chloride (Potassium Chloride Er 10 Meq Tab.Er.Prt) 10 meq PO DAILY [facility] Last Admin: 05/15/22 14:15 Dose: 10 meq Senna/Docusate Sodium (Sennosides-Docusate Sodium 1 Each Tab) 2 each PO HS [facility] Last Admin: 05/14/22 20:07 Dose: Not Given Sodium Chloride (Sodium Chloride 0.9% Flush 10 Ml Syringe) 10 ml IV BID [facility] Last Admin: 05/15/22 08:47 Dose: 10 ml Tamsulosin HCl (Tamsulosin 0.4 Mg Cap.Er.24h) 0.4 mg PO PC-BRKFST [facility] Last Admin: 05/15/22 14:15 Dose: 0.4 mg On examination: VITAL SIGNS: 98.2, 80, 20, 11 3 x 69, 87% on 3 L GENERAL APPEARANCE: Up in chair, some short of breath HEENT: Normal external appearance of nose and ear. Oral cavity normal EYES: Pupils equal. Conjunctiva normal. NECK: JVD not raised. Mass not palpable. RESPIRATORY: Respiratory effort increased. Lungs diminished breath sounds. CARDIOVASCULAR: First and second sounds normal. Edema present ABDOMEN: Soft. Liver and spleen not palpable. No tenderness. No mass palpable. Sacral decub. PSYCHIATRY: AO 3, mood and affect normal INVESTIGATIONS, reviewed in the clinical context: 05/15/2022: Hemoglobin 6.2 platelets 215 progression for BUN 41 creatinine 1.37 05/14/2022: WBC 5.8 hemoglobin 7 platelets 202 05/13/2022: White count 8.3 hemoglobin 6.5 platelets 197 potassium 4.4 BUN 42 creatinine 1.33 05/04/2022: WBC 16 hemoglobin 6.1 platelets 362 potassium 3.7 BUN 75 creatinine 1.75 Limited 2-D echocardiogram [May 01]: EF 45%. Dtsv-mu-fyrnnxic MR, moderate aortic stenosis 05/01/2022: WBC 15.3 hemoglobin 7.2 platelets 305 potassium 4. [address] chest [April 29]: Moderate partial obliterate right pleural effusion, left pleural effusion, cardiomegaly. 04/24/2022: WBC 9.2 hemoglobin 7.1 platelets 122 potassium 5.1 BUN 77 creatinine 2.97 AST 1270 ALT 1038 WBC 8.2 hemoglobin 7.5 platelets 111 sodium 135 progression 6 BUN 67 creatinine 3.43 AST 3595 ALT 1512 Limited 2-D echocardiogram: EF 45-50%. Inferior wall hypokinesis. Moderate MR. Moderate pulmonary hypertension with moderate TR. Assessment and plan -Acute on chronic congestive heart exacerbation from systolic/diastolic dysfunction EF 45-50%:, precipitated by A. fib: Bumex 2 mg IV daily -pneumonia, short of breath, infiltrate on chest x-ray, increasing white count and procalcitonin: Better IV cefepime-completed -Acute hypoxic respiratory failure from pulmonary edema/pneumonia: Better 93% on 2 L -Diabetes Mellitus type 2 , better. Victoza . farxiga 5 mg -Paroxysmal atrial fibrillation status post modified Castanon-Maze procedure,: With rapid ventricular rate: Now - sinus rhythm amiodarone ,Lopressor. Eliquis held because of GI bleed -Acute GI bleed from the third and fourth portion of duodenum: 1. 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 2 small gastric AVMs with no active bleeding status post coagulation with argon plasma: By Dr. Michelle Ramos -acute renal failure on chronic kidney disease stage II with renal failure is probably prerenal azotemia, cardiorenal syndrome.: Better Creatinine peaked at 3.43. Creatinine 1.46 -hyperkalemia secondary to acute renal failure: Corrected Received Lokelma. Renal diet -Acute hepatitis, likely ischemic: Better Follow closely. GI services not available in the hospital. Hold any hepatic offensive medications. Follow LFTs patient as patient started back on amiodarone -Acute COPD exacerbation, in a smoker DuoNeb. Symbicort -Hyperlipidemia Lipitor -Sacral decubitus ulcer: With abscess. Large abscess was encountered. 12 x 10 x 4 cm deep. Cleaned out by Dr. Firoe 05/08/2022. Follow with ID. On IV daptomycin, IV Zosyn -Metabolic alkalosis from diuresis Was on Diamox - coronary artery disease with previous PCI Aspirin, Imdur, Lopressor -Acute postprocedure blood loss anemia as expected from surgery, also hospital- acquired anemia from blood draws Received PRBC -Chronic nicotine dependence - post mitral valve failure, status post CABG, status post PFO closure: Currently jfro-od-opyoonoh MR -Moderate aortic stenosis -Moderate secondary pulmonary hypertension Continue current medication she can plan. EGD results noted per Dr. Michelle Ramos. Patient did receive a unit of blood earlier. Follow CBC.
[2022-05-15 16:40] LABS: Glucose,Whole Blood 152 mg/dL (70-110)
[2022-05-15 19:10] LABS: Anisocytosis Slight; HCT 23.2 % (39.0-53.0); HGB 7.6 gm/dL (13.0-17.5); Hypochromasia Marked; MCH 30.6 pg (25.0-35.0); MCHC 32.6 g/dL (31.0-37.0); MCV 93.9 fL (80.0-100.0); Mean Platelet Volume 8.4; Platelet Count 212 k/uL (150-450); Poikilocytosis Moderate; RBC 2.47 m/uL (4.30-5.90); RDW 16.6 % (11.5-15.5); WBC 6.6 k/uL (3.8-10.6)
[2022-05-15 20:09] LABS: Glucose,Whole Blood 242 mg/dL (70-110)
[2022-05-15] MEDS: SENNOSIDES-DOCUSATE SODIUM 1 EACH TAB PO SCH (20:12)
[2022-05-15] MEDS: ONDANSETRON 4 MG/2 ML VIAL IVP PRN (20:13)
[2022-05-15] MEDS: HYDROcodone/APAP 5-325MG 1 EACH TAB PO PRN (20:57)
--- NOTE | 2022-05-15 22:11 | P.PN ---
Subjective Progress Note Date: 05/14/22 Principal diagnosis: Leukocytosis Patient is a 72-year-old male electively admitted to the hospital 04/19/2022 for mitral valve repair and coronary bypass grafting 3 and this patient has been afebrile however noticed to have worsening leukocytosis. Patient has been evaluated by general surgery and is scheduled for EGD and debridement of the sacral wound Completed on 05/08/2022 unfortunately abscess was drained but no cultures were obtained. On today's evaluation that is 05/14/2022 patient continues to be afebrile, the patient is breathing comfortably on nasal cannula oxygen, the patient denies chest pain , the patient did have occasional cough but not bringing up any sputum denies any nausea no vomiting no abdominal pain or any worsening pain to the sacral wound area Objective - Vital Signs Vital signs: Vital Signs Temp 99.1 F 05/14/22 11:34 Pulse 78 05/14/22 13:00 Resp 17 05/14/22 13:00 BP 101/50 05/14/22 13:00 Pulse Ox 96 05/14/22 13:00 FiO2 100 04/22/22 16:00 Intake & Output 05/13/22 05/14/22 05/14/22 18:59 06:59 18:59 Intake Total 1420 460 510 Output Total 1850 720 290 Balance -430 -260 220 Weight 91.7 kg Intake: IV 200 160 260 0.9 10 60 DAPTOmycin 360 mg In 50 Sodium Chloride 0.9% 50 ml @ 100 mls/hr IVPB Q24H [facility] Rx#:[id number] Piperacillin-Tazobactam 3 200 100 100 .375 gm In Sodium Chloride 0.9% 100 ml @ 25 mls/hr IVPB Q8HR [facility] Rx# :[id number] Sodium Ferric Gluconat- 100 Sucrose 125 mg In Sodium Chloride 0.9% 100 ml @ 100 mls/hr IVPB DAILY [facility] Rx#:[id number] Oral 600 300 250 Blood Product 620 Rc As-1 Unit 310 [id number] Output: Urine 1850 720 290 Other: Voiding Method Urinal Urinal # Voids 1 1 # Bowel Movements 1 1 ABP, PAP, CO, CI - Last Documented Arterial Blood Pressure 137/47 Pulmonary Artery Pressure 67/18 Cardiac Output 5.8 Cardiac Index 2.8 - Exam GENERAL DESCRIPTION: An elderly male up in the chair in no distress RESPIRATORY SYSTEM: Unlabored breathing , decreased breath sounds at bases HEART: S1 S2 regular rate and rhythm , ABDOMEN: Soft , no tenderness Stages the sacral pressure ulcer with some slough tissue at base and surrounding redness some foul-smelling EXTREMITIES: 2+ edema feet - Labs CBC & Chem 7: 05/15/22 18:42 05/15/22 07:12 Labs: Abnormal Lab Results - Last 24 Hours (Table) 05/13/22 05/13/22 05/14/22 Range/Units 15:04 19:44 06:08 RBC 2.37 L 2.35 L (4.30-5.90) m/uL Hgb 7.2 L 7.2 L (13.0-17.5) gm/dL Hct 22.4 L 22.3 L (39.0-53.0) % RDW 16.9 H 17.0 H (11.5-15.5) % Lymphocytes # 0.3 L (1.0-4.8) k/uL Sodium (137-145) mmol/L BUN (9-20) mg/dL Creatinine (0.66-1.25) mg/dL Glucose (74-99) mg/dL POC Glucose (mg/dL) 206 H (70-110) mg/dL Calcium (8.4-10.2) mg/dL AST (17-59) U/L ALT (4-49) U/L Total Protein (6.3-8.2) g/dL Albumin (3.5-5.0) g/dL 05/14/22 05/14/22 05/14/22 Range/Units 06:08 06:50 11:48 RBC (4.30-5.90) m/uL Hgb (13.0-17.5) gm/dL Hct (39.0-53.0) % RDW (11.5-15.5) % Lymphocytes # (1.0-4.8) k/uL Sodium 134 L (137-145) mmol/L BUN 34 H (9-20) mg/dL Creatinine 1.33 H (0.66-1.25) mg/dL Glucose 116 H (74-99) mg/dL POC Glucose (mg/dL) 149 H 131 H (70-110) mg/dL Calcium 7.3 L (8.4-10.2) mg/dL AST 77 H (17-59) U/L ALT 62 H (4-49) U/L Total Protein 4.8 L (6.3-8.2) g/dL Albumin 2.5 L (3.5-5.0) g/dL Microbiology - Last 24 Hours (Table) 04/30/22 16:45 Acid Fast Bacilli Smear - Final Pleural Fluid Acid Fast Bacilli Culture - Preliminary Assessment and Plan (1) Leukocytosis Current Visit: Yes Status: Acute Code(s): D72.829 - ELEVATED WHITE BLOOD CELL COUNT, UNSPECIFIED SNOMED Code(s): 763708096 Plan: 1patient with a leukocytosis in this patient who is postop mitral valve repair and CABG x3 patient did not have any fever during this hospital stay and the white count has been slowly creeping up over the last 5 days source possible cath versus UTI versus his sacral pressure ulcer, patient started as well as vein grafting sites looks clean without evidence of any cellulitis he did have a thoracocentesis with fluid does not look infected and cultures subsequently negative. 2 blood cultures are negative. 3patient likely source of elevated white count is infected sacral pressure ulcer, , Patient is status post surgical debridement of the sacral pressure ulcer with evidence of abscess unfortunately no cultures were done as we do not have any culture data to narrow his antibiotics, the patient white count has normalized, 4-patient to continue the patient on Zosyn and daptomycin, planning for at least 2 week course on discharge Time with Patient: Less than 30
--- NOTE | 2022-05-15 22:13 | P.PN ---
Subjective Progress Note Date: 05/15/22 Principal diagnosis: Leukocytosis Patient is a 72-year-old male electively admitted to the hospital 04/19/2022 for mitral valve repair and coronary bypass grafting 3 and this patient has been afebrile however noticed to have worsening leukocytosis. Patient has been evaluated by general surgery and is scheduled for EGD and debridement of the sacral wound Completed on 05/08/2022 unfortunately abscess was drained but no cultures were obtained. Patient is status post EGD completed on 05/15/2022 with evidence of duodenal bleeding On today's evaluation that is 05/15/2022 patient denies any fever or chills, the patient is breathing comfortably on nasal cannula oxygen, the patient denies chest pain , the patient denies any worsening cough or sputum production no [place] no vomiting no abdominal pain or worsening pain in the sacrum. Objective - Vital Signs Vital signs: Vital Signs Temp 98.2 F 05/15/22 12:00 Pulse 80 05/15/22 14:25 Resp 29 H 05/15/22 14:00 BP 103/53 05/15/22 14:00 Pulse Ox 95 05/15/22 14:00 FiO2 100 04/22/22 16:00 Intake & Output 05/14/22 05/15/22 05/15/22 18:59 06:59 18:59 Intake Total 810 140 710 Output Total 265 560 5083 Balance 320 -660 -440 Weight 90.9 kg 90.9 kg Intake: IV 310 80 400 0.9 110 80 0 Piperacillin-Tazobactam 3 100 100 .375 gm In Sodium Chloride 0.9% 100 ml @ 25 mls/hr IVPB Q8HR [facility] Rx# :[id number] Sodium Ferric Gluconat- 100 100 Sucrose 125 mg In Sodium Chloride 0.9% 100 ml @ 100 mls/hr IVPB DAILY [facility] Rx#:[id number] Oral 500 60 Blood Product 310 Rc As-1 Unit 310 [id number] Output: Urine 548 606 9517 Other: Voiding Method Urinal Urinal Urinal # Voids 1 0 # Bowel Movements 1 1 ABP, PAP, CO, CI - Last Documented Arterial Blood Pressure 137/47 Pulmonary Artery Pressure 67/18 Cardiac Output 5.8 Cardiac Index 2.8 - Exam GENERAL DESCRIPTION: An elderly male up in the chair in no distress RESPIRATORY SYSTEM: Unlabored breathing , decreased breath sounds at bases HEART: S1 S2 regular rate and rhythm , ABDOMEN: Soft , no tenderness Stages the sacral pressure ulcer with some slough tissue at base and surrounding redness some foul-smelling EXTREMITIES: 2+ edema feet - Labs CBC & Chem 7: 05/15/22 18:42 05/15/22 07:12 Labs: Abnormal Lab Results - Last 24 Hours (Table) 05/13/22 05/14/22 05/14/22 Range/Units 06:46 15:14 16:16 RBC 2.31 L (4.30-5.90) m/uL Hgb 7.0 L (13.0-17.5) gm/dL Hct 22.0 L (39.0-53.0) % MCHC (31.0-37.0) g/dL RDW 16.9 H (11.5-15.5) % BUN (9-20) mg/dL Creatinine (0.66-1.25) mg/dL Glucose (74-99) mg/dL POC Glucose (mg/dL) 160 H (70-110) mg/dL Calcium (8.4-10.2) mg/dL AST (17-59) U/L ALT (4-49) U/L Total Protein (6.3-8.2) g/dL Albumin (3.5-5.0) g/dL Crossmatch See Detail 05/14/22 05/14/22 05/15/22 Range/Units 16:40 20:13 06:30 RBC (4.30-5.90) m/uL Hgb (13.0-17.5) gm/dL Hct (39.0-53.0) % MCHC (31.0-37.0) g/dL RDW (11.5-15.5) % BUN (9-20) mg/dL Creatinine (0.66-1.25) mg/dL Glucose (74-99) mg/dL POC Glucose (mg/dL) 157 H 167 H 172 H (70-110) mg/dL Calcium (8.4-10.2) mg/dL AST (17-59) U/L ALT (4-49) U/L Total Protein (6.3-8.2) g/dL Albumin (3.5-5.0) g/dL Crossmatch 05/15/22 05/15/22 05/15/22 Range/Units 07:12 07:12 11:42 RBC 2.18 L (4.30-5.90) m/uL Hgb 6.2 L* (13.0-17.5) gm/dL Hct 20.9 L (39.0-53.0) % MCHC 29.7 L (31.0-37.0) g/dL RDW 17.4 H (11.5-15.5) % BUN 41 H (9-20) mg/dL Creatinine 1.37 H (0.66-1.25) mg/dL Glucose 133 H (74-99) mg/dL POC Glucose (mg/dL) 150 H (70-110) mg/dL Calcium 7.3 L (8.4-10.2) mg/dL AST 67 H (17-59) U/L ALT 57 H (4-49) U/L Total Protein 4.6 L (6.3-8.2) g/dL Albumin 2.4 L (3.5-5.0) g/dL Crossmatch Microbiology - Last 24 Hours (Table) 04/30/22 16:45 Acid Fast Bacilli Smear - Final Pleural Fluid Acid Fast Bacilli Culture - Preliminary Assessment and Plan (1) Leukocytosis Current Visit: Yes Status: Acute Code(s): D72.829 - ELEVATED WHITE BLOOD CELL COUNT, UNSPECIFIED SNOMED Code(s): 574732913 Plan: 1patient with a leukocytosis in this patient who is postop mitral valve repair and CABG x3 patient did not have any fever during this hospital stay and the white count has been slowly creeping up over the last 5 days source possible cath versus UTI versus his sacral pressure ulcer, patient started as well as vein grafting sites looks clean without evidence of any cellulitis he did have a thoracocentesis with fluid does not look infected and cultures subsequently negative. 2 blood cultures are negative. 3patient likely source of elevated white count is infected sacral pressure ulcer, , Patient is status post surgical debridement of the sacral pressure ulcer with evidence of abscess unfortunately no cultures were done 4-patient white count has normalized and the patient will continue the patient on Zosyn and daptomycin, planning for at least 2 week course on discharge Time with Patient: Less than 30
[2022-05-16] MEDS: PIPERACILLIN-TAZOBACTAM 3.375 GM in SODIUM CHLORIDE 0.9% 100 ML IVPB SCH ×3 (00:13→16:42)
[2022-05-16 01:41] LABS: Anisocytosis Slight; Basophils % (A) 1 %; Eosinophils # (A) 0.1 k/uL (0-0.7); Eosinophils % (A) 1 %; HCT 22.7 % (39.0-53.0); HGB 7.3 gm/dL (13.0-17.5); Hypochromasia Marked; Lymphocytes # (A) 0.5 k/uL (1.0-4.8); Lymphocytes % (A) 8 %; MCH 30.2 pg (25.0-35.0); MCHC 32.3 g/dL (31.0-37.0); MCV 93.4 fL (80.0-100.0); Mean Platelet Volume 8.8; Monocytes # (A) 0.6 k/uL (0-1.0); Monocytes % (A) 9 %; Neutrophils # (A) 4.8 k/uL (1.3-7.7); Neutrophils % (A) 78 %; Platelet Count 212 k/uL (150-450); Poikilocytosis Moderate; RBC 2.43 m/uL (4.30-5.90); RDW 16.7 % (11.5-15.5); WBC 6.1 k/uL (3.8-10.6)
--- NOTE | 2022-05-16 06:20 | XR ---
EXAMINATION TYPE: XR chest 1V portable DATE OF EXAM: 05/16/2022 CLINICAL HISTORY: Difficulty breathing progress study. Postop cardiac surgery. TECHNIQUE: Single AP portable upright view of the chest is obtained. COMPARISON: Chest x-ray from one day earlier and older studies. FINDINGS: Overlying Sternal wires are redemonstrated. Metallic cardiac valvular ring again seen. Persistent small left greater than right pleural effusions and bilateral mild interstitial edema laverne g with cardiomegaly and bibasilar opacities favoring compressive atelectasis. Upper lungs remain maria isabel r without pneumothorax. Metallic anchors bilateral humeral heads consistent with prior rotator cuff s urgery are noted. IMPRESSION: Findings consistent with CHF exacerbation remain present. Cardiomegaly with small left gr eater than right pleural effusions and mild bilateral interstitial edema along with bibasilar meenu sive atelectasis are all redemonstrated. No significant change from one day earlier.
[2022-05-16 06:24] LABS: Glucose,Whole Blood 112 mg/dL (70-110)
[2022-05-16] MEDS: INSULIN ASPART (NovoLOG) 100 UNIT/ML VIAL SQ SCH ×4 (06:31→20:09)
[2022-05-16 06:37] LABS: Anisocytosis Slight; HCT 22.6 % (39.0-53.0); HGB 7.4 gm/dL (13.0-17.5); Hypochromasia Marked; MCH 30.6 pg (25.0-35.0); MCHC 32.9 g/dL (31.0-37.0); MCV 92.9 fL (80.0-100.0); Mean Platelet Volume 8.2; Platelet Count 214 k/uL (150-450); Poikilocytosis Moderate; RBC 2.43 m/uL (4.30-5.90); RDW 16.8 % (11.5-15.5); WBC 6.6 k/uL (3.8-10.6)
[2022-05-16 06:45] LABS: Calcium 7.4 mg/dL (8.4-10.2); Potassium 4.1 mmol/L (3.5-5.1)
[2022-05-16] MEDS: SYMBICORT 160-4.5 MCG INHALER INHALATION SCH ×2 (08:04→20:33)
[2022-05-16] MEDS: IPRATROPIUM-ALBUTEROL 3 ML NEB INHALATION SCH ×4 (08:04→20:33)
[2022-05-16] MEDS: ATORVASTATIN 20 MG TAB PO SCH (08:53)
[2022-05-16] MEDS: BUMETANIDE 0.25 MG/ML 10 ML VIAL IV SCH (08:54)
[2022-05-16] MEDS: TAMSULOSIN 0.4 MG CAP.ER.24H PO SCH (08:54)
[2022-05-16] MEDS: ASCORBIC ACID 500 MG TAB PO SCH (08:54)
[2022-05-16] MEDS: POTASSIUM CHLORIDE ER 10 MEQ TAB.ER.PRT PO SCH (08:54)
[2022-05-16] MEDS: NON FORMULARY DRUG SQ SCH (08:55)
[2022-05-16] MEDS: guaiFENesin-DM 600/30MG 1 EACH TAB.ER.12H PO SCH ×2 (08:55→20:09)
[2022-05-16] MEDS: SODIUM FERRIC GLUCONAT-SUCROSE 125 MG in SODIUM CHLORIDE 0.9% 100 ML IVPB SCH (08:55)
[2022-05-16] MEDS: LIDOCAINE 5% PATCH TOPICAL SCH (08:56)
[2022-05-16] MEDS: DAPAGLIFLOZIN PROPANEDIOL 5 MG TABLET PO SCH (08:58)
[2022-05-16] MEDS: PANTOPRAZOLE 40 MG/10 ML VIAL IVP SCH ×2 (08:59→20:08)
[2022-05-16] MEDS: METOPROLOL TARTRATE 25 MG TAB PO SCH ×2 (09:01→20:09)
--- NOTE | 2022-05-16 09:16 | P.PN ---
Subjective Progress Note Date: 05/16/22 PROGRESS NOTE The patient is a 72-year-old male with a known history of CAD, atrial fibrillation, coronary disease and mitral valve disease who underwent CABG with SVG to the diagonal branch, obtuse marginal branch and PDA, mitral valve repair with closure of PFO and modified Castanon procedure with ligation of the left atrial appendage, performed by Dr. Raines on April 19. His postoperative course has been complicated by recurrent bleeding, requiring multiple transfusion, dyspnea and fatigue. He continues to feel weak and dyspneic although slightly better. He is scheduled to be seen by Dr. Ramos today for further evaluation of his GI status. He denies any chest discomfort, dizziness or palpitations. His urinary output has been stable. He has not been anticoagulated because of the recurrent GI bleeding. Hemodynamically he is stable. He denies any nausea or vomiting. His chest x-ray shows mild congestion. May 15: The patient continues to be in sinus mechanism. He feels tired but he denies any chest discomfort, dizziness or palpitations. He is more anemic today and is scheduled to undergo transfusion and workup by the GI service including upper and lower endoscopy according to him. He denies any nausea or vomiting. Hemodynamically he has been stable. May 16: The patient feels better, his breathing is better. He underwent endoscopy yesterday with clipping of an AV malformation. He continues to be in sinus mechanism. He denies any chest discomfort, dizziness or palpitations. He continues to feel weak. His blood pressure is stable. He has no nausea or vomi ting. Medications: Aspirin 81 mg daily, Bumex 2 mg IV daily, metoprolol 25 mg twice a day, Flomax o nce a day, Farxiga 5 mg qd, Lipitor 20 mg daily PHYSICAL EXAMINATION: Blood pressure 120/58 heart rate 70 LUNGS: Mild decrease in the breath sounds at the bases HEART: Regular rate and rhythm, S1, S2. No S3. systolic murmur at the base ABDOMEN: Soft, nontender, no organomegaly EXTREMETIES: 1+ edema LAB: Hemoglobin 7.4, BUN 35, creatinine 1.1. IMPRESSION: 1. Status post CABG with mitral valve repair and closure of left atrial appendage 2. Recurrent anemia with GI bleeding, status post clipping, stable 3. History of paroxysmal atrial fibrillation 4. History of COPD 5. Physical deconditioning post surgery 6. History of hyperlipidemia PLAN: 1. Start low-dose SUSAN inhibitor 2. If hemoglobin is stable consider anticoagulation 3. Physical therapy 4. Depending on his progress further recommendations will be made Objective - Vital Signs Vital signs: Vital Signs Temp 98.0 F 05/16/22 04:00 Pulse 79 05/16/22 08:21 Resp 30 H 05/16/22 06:00 BP 120/58 05/16/22 06:00 Pulse Ox 94 L 05/16/22 06:00 FiO2 100 04/22/22 16:00 Intake & Output 05/15/22 05/16/22 05/16/22 18:59 06:59 18:59 Intake Total 810 Output Total 1401 650 Balance -591 -650 Weight 90.9 kg 91.1 kg Intake: IV 500 0.9 0 Piperacillin-Tazobactam 3 200 .375 gm In Sodium Chloride 0.9% 100 ml @ 25 mls/hr IVPB Q8HR [facility] Rx# :[id number] Sodium Ferric Gluconat- 100 Sucrose 125 mg In Sodium Chloride 0.9% 100 ml @ 100 mls/hr IVPB DAILY [facility] Rx#:[id number] Blood Product 310 Rc As-1 Unit 310 [id number] Output: Urine 1400 650 Stool 1 Other: Voiding Method Urinal Urinal # Voids 0 1 # Bowel Movements 1 0 ABP, PAP, CO, CI - Last Documented Arterial Blood Pressure 137/47 Pulmonary Artery Pressure 67/18 Cardiac Output 5.8 Cardiac Index 2.8 - Labs CBC & Chem 7: 05/16/22 06:01 05/16/22 06:01 Labs: Abnormal Lab Results - Last 24 Hours (Table) 05/13/22 05/15/22 05/15/22 Range/Units 06:46 11:42 14:18 RBC 2.59 L (4.30-5.90) m/uL Hgb 8.0 L D (13.0-17.5) gm/dL Hct 24.4 L (39.0-53.0) % RDW 16.5 H (11.5-15.5) % Lymphocytes # (1.0-4.8) k/uL Sodium (137-145) mmol/L BUN (9-20) mg/dL POC Glucose (mg/dL) 150 H (70-110) mg/dL Calcium (8.4-10.2) mg/dL Crossmatch See Detail 05/15/22 05/15/22 05/15/22 Range/Units 16:38 18:42 20:08 RBC 2.47 L (4.30-5.90) m/uL Hgb 7.6 L (13.0-17.5) gm/dL Hct 23.2 L (39.0-53.0) % RDW 16.6 H (11.5-15.5) % Lymphocytes # (1.0-4.8) k/uL Sodium (137-145) mmol/L BUN (9-20) mg/dL POC Glucose (mg/dL) 152 H 242 H (70-110) mg/dL Calcium (8.4-10.2) mg/dL Crossmatch 05/16/22 05/16/22 05/16/22 Range/Units 01:20 06:01 06:01 RBC 2.43 L 2.43 L (4.30-5.90) m/uL Hgb 7.3 L 7.4 L (13.0-17.5) gm/dL Hct 22.7 L 22.6 L (39.0-53.0) % RDW 16.7 H 16.8 H (11.5-15.5) % Lymphocytes # 0.5 L (1.0-4.8) k/uL Sodium 135 L (137-145) mmol/L BUN 35 H (9-20) mg/dL POC Glucose (mg/dL) (70-110) mg/dL Calcium 7.4 L (8.4-10.2) mg/dL Crossmatch 05/16/22 Range/Units 06:23 RBC (4.30-5.90) m/uL Hgb (13.0-17.5) gm/dL Hct (39.0-53.0) % RDW (11.5-15.5) % Lymphocytes # (1.0-4.8) k/uL Sodium (137-145) mmol/L BUN (9-20) mg/dL POC Glucose (mg/dL) 112 H (70-110) mg/dL Calcium (8.4-10.2) mg/dL Crossmatch
--- NOTE | 2022-05-16 10:12 | P.PN ---
Subjective Progress Note Date: 05/16/22 Principal diagnosis: GI bleed This is a pleasant 72-year-old male with multiple comorbidities including mitral regurgitation, coronary artery disease, proximal atrial fibrillation, osteoarthritis, diabetes mellitus, hyperlipidemia, chronic tobacco dependence, infected sacral wound, and chronic anemia who underwent elective mitral valve repair, coronary bypass grafting 3, closure of PFO, modified Maze procedure in litigation a left atrial appendage. Since being in the hospital he was noted to have significant anemia. He had been reporting black stools. He was on Eliquis , however reportedly was stopped about a week ago. He had then been on a full dose aspirin which again since he had continued anemia was changed to a low dose 81 mg aspirin. Patient denies any previous history of long-term NSAID use. States he takes Tylenol at home for pain. Patient did have a history of a GI bleed in November of this year and underwent EGD done at [facility] which showed a small oozing AVM in the second portion of the duodenum with epinephrine administration and Lip placement 1. As well as 4 antral ulcers and small hiatal hernia. There recommendation was to repeat EGD in 2-3 months. Patient states had a repeat EGD done with Dr. Ramos in the last couple months done at [facility], which report is unavailable at this time. Prior to that he had a colonoscopy done on 02/16/[address] Malave which was significant for colon polyps status post polypectomy. During this hospitalization he was seen by general surgery, Dr. Cardenas performed an EGD on 05/08/2022 with findings of duodenitis, distal esophagitis and fresh blood in the third/fourth portion of the duodenum, no visible AVM. During this hospitalization the patient has received 9 units of red blood cells, 2 units of FFP and 1 unit of platelets. Yesterday he had a hemoglobin 7.2, he was given 1 unit of blood with a repeat hemoglobin today of 7.2. States his last bowel movement was yesterday and still dark, formed. He is denying any abdominal pain, nausea or vomiting. 05/16/2022. Patient was seen and examined in the ICU sitting up in the bedside chair. He is status post EGD yesterday with one actively bleeding duodenal AVM in the second and third part of the duodenum status post argon plasma coagulation followed by Endo Clip placement with good hemostasis as well as 2 small gastric AVMs with no active bleeding status post coagulation with argon plasma. Today's repeat hemoglobin is stable at 7.2. Patient states he is having diarrhea since his surgery, however yesterday evening he had multiple and was up throughout the night. He is denying any abdominal pain nausea or vomiting associated. Patient has been on antibiotics during this hospitalization, will order a C. diff stool studies. Objective - Vital Signs Vital signs: Vital Signs Temp 97.4 F L 05/16/22 08:00 Pulse 84 05/16/22 09:00 Resp 20 05/16/22 09:00 BP 86/61 05/16/22 09:00 Pulse Ox 97 05/16/22 09:00 FiO2 100 04/22/22 16:00 Intake & Output 05/15/22 05/16/22 05/16/22 18:59 06:59 18:59 Intake Total 810 340 Output Total 1401 650 375 Balance -591 -650 -35 Weight 90.9 kg 91.1 kg Intake: IV 500 100 0.9 0 Piperacillin-Tazobactam 3 200 100 .375 gm In Sodium Chloride 0.9% 100 ml @ 25 mls/hr IVPB Q8HR [facility] Rx# :[id number] Sodium Ferric Gluconat- 100 Sucrose 125 mg In Sodium Chloride 0.9% 100 ml @ 100 mls/hr IVPB DAILY [facility] Rx#:[id number] Oral 240 Blood Product 310 Rc As-1 Unit 310 [id number] Output: Urine 1400 650 375 Stool 1 Other: Voiding Method Urinal Urinal # Voids 0 1 # Bowel Movements 1 0 1 ABP, PAP, CO, CI - Last Documented Arterial Blood Pressure 137/47 Pulmonary Artery Pressure 67/18 Cardiac Output 5.8 Cardiac Index 2.8 - Exam General appearance: The patient is alert, oriented, appears in no acute distress. HET: Head is normocephalic and atraumatic. Conjunctiva pink. Sclera anicteric. Neck: Supple without lymphadenopathy. Abdomen: Soft, nontender, nondistended with bowel sounds. No guarding or rigidity. Extremities: Normal skin color and turgor. No pedal edema Skin: No rashes, no jaundice Neurological: No focal deficits. Alert and oriented. - Labs CBC & Chem 7: 05/16/22 06:01 05/16/22 06:01 Labs: Abnormal Lab Results - Last 24 Hours (Table) 05/13/22 05/15/22 05/15/22 Range/Units 06:46 11:42 14:18 RBC 2.59 L (4.30-5.90) m/uL Hgb 8.0 L D (13.0-17.5) gm/dL Hct 24.4 L (39.0-53.0) % RDW 16.5 H (11.5-15.5) % Lymphocytes # (1.0-4.8) k/uL Sodium (137-145) mmol/L BUN (9-20) mg/dL POC Glucose (mg/dL) 150 H (70-110) mg/dL Calcium (8.4-10.2) mg/dL Crossmatch See Detail 05/15/22 05/15/22 05/15/22 Range/Units 16:38 18:42 20:08 RBC 2.47 L (4.30-5.90) m/uL Hgb 7.6 L (13.0-17.5) gm/dL Hct 23.2 L (39.0-53.0) % RDW 16.6 H (11.5-15.5) % Lymphocytes # (1.0-4.8) k/uL Sodium (137-145) mmol/L BUN (9-20) mg/dL POC Glucose (mg/dL) 152 H 242 H (70-110) mg/dL Calcium (8.4-10.2) mg/dL Crossmatch 05/16/22 05/16/22 05/16/22 Range/Units 01:20 06:01 06:01 RBC 2.43 L 2.43 L (4.30-5.90) m/uL Hgb 7.3 L 7.4 L (13.0-17.5) gm/dL Hct 22.7 L 22.6 L (39.0-53.0) % RDW 16.7 H 16.8 H (11.5-15.5) % Lymphocytes # 0.5 L (1.0-4.8) k/uL Sodium 135 L (137-145) mmol/L BUN 35 H (9-20) mg/dL POC Glucose (mg/dL) (70-110) mg/dL Calcium 7.4 L (8.4-10.2) mg/dL Crossmatch 05/16/22 Range/Units 06:23 RBC (4.30-5.90) m/uL Hgb (13.0-17.5) gm/dL Hct (39.0-53.0) % RDW (11.5-15.5) % Lymphocytes # (1.0-4.8) k/uL Sodium (137-145) mmol/L BUN (9-20) mg/dL POC Glucose (mg/dL) 112 H (70-110) mg/dL Calcium (8.4-10.2) mg/dL Crossmatch Assessment and Plan (1) Upper GI bleed Narrative/Plan: Knee 2-year-old male who came in for elective cardiovascular surgery who underwent CABG, mitral valve repair on 04/19/2022 who has still been admitted to the ICU with notable anemia. Patient has had several transfusions during this hospitalization including 9 RBC, 2 FFP and 1 platelet. Patient has a history of chronic anemia and states he's been on iron at home and was having some dark stools however he didn't start having black stools until he was here in the hosp ital. He did undergo EGD on 05/08/[address] Cardenas with fresh blood seen in the third and fourth part of the duodenum but no visible AVMs reported. Otherwise patient had duodenitis and mild distal esophagitis. Patient continues to have low hemoglobin with concerns for continued upper GI bleed. Patient also has a history of known AVMs which were treated at [facility] in November of this year, also noted on report was for antral ulcers. Possible etiologies include bleeding AVM, bleeding ulcer or other possible etiologies. Plan for repeat upper EGD tomorrow with possible small bowel capsule endoscopy. He is status post EGD yesterday with one actively bleeding duodenal AVM in the second and third part of the duodenum status post argon plasma coagulation followed by Endo Clip placement with good hemostasis as well as 2 small gastric AVMs with no active bleeding status post coagulation with argon plasma. Current Visit: Yes Status: Acute Code(s): K92.2 - GASTROINTESTINAL HEMORRHAGE, UNSPECIFIED SNOMED Code(s): 67875526 (2) Normocytic normochromic anemia Current Visit: Yes Status: Acute Code(s): D64.9 - ANEMIA, UNSPECIFIED SNOMED Code(s): 18295494 (3) Diarrhea Narrative/Plan: Unclear etiology at this time however patient has been on antibiotics during this hospitalization. Will order stool studies including C. diff and stool culture. Current Visit: Yes Status: Acute Code(s): R19.7 - DIARRHEA, UNSPECIFIED SNOMED Code(s): 78290255 Plan: 1. Continue symptomatic and supportive care 2. Continue ICU management 3. C. diff and stool cultures ordered 4. Diet as tolerated 5. Daily CBC, transfuse for hemoglobin less than 7 6. Patient is status post EGD with findings of actively bleeding duodenal AVM as well as 2 small gastric AVMs nonbleeding both treated. Thank you for this consultation, we will continue to follow. Dr. Michelle Ramos I agree with the dictator's note, documented as a scribe by Radha Moody.
[2022-05-16 11:14] LABS: Glucose,Whole Blood 199 mg/dL (70-110)
[2022-05-16] MEDS: ASPIRIN 81 MG PO SCH (11:23)
--- NOTE | 2022-05-16 14:23 | P.PN ---
Subjective Progress Note Date: 05/16/22 Principal diagnosis: Severe mitral valve regurgitation, coronary artery disease, paroxysmal atrial fibrillation, patent foramen ovale, tricuspid regurgitation, chronic systolic congestive heart failure. Past medical history significant for hypertension, hyperlipidemia, coronary artery disease with history of previous PCI, non-ST elevated myocardial infarction in November 2021, ischemic cardiomyopathy with EF 40- 45%, right internal carotid stenosis 50-79%, renal insufficiency, anemia with history of GI bleed in November 2021 S/P transfusion PRBCs, diabetes mellitus type 2, osteoarthritis, severe COPD, chronic ongoing nicotine dependence, remote history of pneumonia, chronic low back pain and hearing disorder. Nasal swab positive for MSSA preoperative POD #27 Mitral valve repair with 28 mm physio-2 ring, CABG 3 with saphenous vein grafts to first diagonal, obtuse marginal, posterior descending coronary arteries, closure of PFO, endovascular vein harvest, modified Castanon maze procedure with full left-sided lesion set and ligation of the left atrial appendage, SCOTT by anesthesia. Protamine reaction intraoperative Postoperative acute blood loss anemia, expected given his history of anemia, hemodilution and cardiopulmonary bypass Acute on chronic kidney failure, likely from hypotension from intraoperative protamine reaction Elevated transaminases, likely from hypotension from intraoperative protamine reaction Left pleural effusion, status post left-sided thoracentesis with removal of [address] Aguilar on 04/30/22 and again on 05/04/22 for 550 mL fluid Leukocytosis, afebrile, CRP and pro-calcitonin trending down, sputum culture negative, no pneumonia, repeat sputum culture positive for aisha and Aspergillus no UTI, blood culture preliminary negative, likely due to sacral stage II ulcer The patient was seen and examined in follow-up today 05/16/2022 at his bedside in the intensive care unit. He is sitting up to the bedside chair, is awake, alert, oriented 3 and is in no acute apparent distress. This morning he reports that he has been having episodes of diarrhea throughout the night, denies any complaints of abdominal pain, distention, nausea or vomiting. A stool for C. diff was sent this morning which was negative for C. diff. He reports he is having some shortness of breath with exertion, and he continues to complain of some pain to his sacral area rating his pain 3-4 out of 10 on the pain scale. He underwent an EGD yesterday performed by Dr. 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 Laboratory results this morning show a PBC count is 6.6, hemoglobin 7.4, hematocrit 22.6, platelets 214, sodium 135, potassium 4.1, BUN 35, creatinine 1.11, calcium 7.4. Bedside telemetry showing normal sinus rhythm heart rate 74 BPM. Oxygen saturation are 94% on 3 L nasal cannula and he is achieving 1000 mL on his incentive spirometry. He continues to void with 300 mL of urine output in the last 8 hours. He remains hemodynamically stable and is currently on no inotropic pressor support. Objective - Vital Signs Vital signs: Vital Signs Temp 97.4 F L 05/16/22 08:00 Pulse 78 05/16/22 11:16 Resp 26 H 05/16/22 11:00 BP 116/80 05/16/22 11:00 Pulse Ox 96 05/16/22 11:00 FiO2 100 04/22/22 16:00 Intake & Output 05/15/22 05/16/22 05/16/22 18:59 06:59 18:59 Intake Total 810 560 Output Total 8401 683 1613 Balance -591 -650 -465 Weight 90.9 kg 91.1 kg Intake: IV 500 200 0.9 0 Piperacillin-Tazobactam 3 200 100 .375 gm In Sodium Chloride 0.9% 100 ml @ 25 mls/hr IVPB Q8HR ZULMA Rx# :[id number] Sodium Ferric Gluconat- 100 100 Sucrose 125 mg In Sodium Chloride 0.9% 100 ml @ 100 mls/hr IVPB DAILY ZULMA Rx#:[id number] Oral 360 Blood Product 310 Rc As-1 Unit 310 [id number] Output: Urine 6778 865 6358 Stool 1 Other: Voiding Method Urinal Urinal Urinal # Voids 0 1 # Bowel Movements 1 0 1 ABP, PAP, CO, CI - Last Documented Arterial Blood Pressure 137/47 Pulmonary Artery Pressure 67/18 Cardiac Output 5.8 Cardiac Index 2.8 - Exam CONSTITUTIONAL: Sitting up to the bedside chair in the intensive care unit, appears comfortable, cooperative, no apparent acute distress. HEENT: Neck is supple, no JVD, no lymphadenopathy. RESPIRATORY: Lungs sounds essentially clear throughout, diminished to his bilateral bases, left greater than right and few scattered crackles to his bilateral bases. Respirations are symmetrical and nonlabored. Currently 3 L nasal cannula with oxygen saturations 94%. Able to achieve 1000 mL on his incentive spirometry. Strong cough. CARDIOVASCULAR: Regular rhythm and rate. S1 and S2 present, negative for S3, or gallop, soft systolic murmur heard best to his left sternal border. Sternum is stable. Palpable peripheral pulses bilaterally, +1 edema to his bilateral lower extremities. No calf pain or tenderness noted. Heart hugger in place with patient demonstrating appropriate use. Knee-high RAFAEL hose and sequential compression devices in place to his bilateral lower extremities. Bedside telemetry showing normal sinus rhythm with heart rate 74 BPM. GASTROINTESTINAL: Abdomen soft, nontender, nondistended. Active bowel sounds present 4 quadrants. Tolerating diet. Passing flatus. No guarding or rigidity. frequent loose bowel movements throughout the night. No nausea, or vomiting. GENITOURINARY: Continues to void. 300 mL of urine output in the last 8 hours. INTEGUMENTARY: Skin is warm and dry with no evidence of clubbing or cyanosis. Midline sternal incision clean dry and well approximated, covered with dry intact dressing. Bilateral lower extremity EVH sites well approximated without redness or drainage. Stage II to III decubitus ulcer present to his buttocks covered with ABD. MUSKULOSKELETAL: Able to move all extremities, strength equal bilaterally, generalized weakness. PSYCHIATRIC: Alert and oriented to person place and time, appropriate affect, intact judgment and insight. - Allied health notes Allied health notes reviewed: nursing - Labs CBC & Chem 7: 05/16/22 06:01 05/16/22 06:01 Labs: Abnormal Lab Results - Last 24 Hours (Table) 05/15/22 05/15/22 05/15/22 Range/Units 14:18 16:38 18:42 RBC 2.59 L 2.47 L (4.30-5.90) m/uL Hgb 8.0 L D 7.6 L (13.0-17.5) gm/dL Hct 24.4 L 23.2 L (39.0-53.0) % RDW 16.5 H 16.6 H (11.5-15.5) % Lymphocytes # (1.0-4.8) k/uL Sodium (137-145) mmol/L BUN (9-20) mg/dL POC Glucose (mg/dL) 152 H (70-110) mg/dL Calcium (8.4-10.2) mg/dL 05/15/22 05/16/22 05/16/22 Range/Units 20:08 01:20 06:01 RBC 2.43 L (4.30-5.90) m/uL Hgb 7.3 L (13.0-17.5) gm/dL Hct 22.7 L (39.0-53.0) % RDW 16.7 H (11.5-15.5) % Lymphocytes # 0.5 L (1.0-4.8) k/uL Sodium 135 L (137-145) mmol/L BUN 35 H (9-20) mg/dL POC Glucose (mg/dL) 242 H (70-110) mg/dL Calcium 7.4 L (8.4-10.2) mg/dL 05/16/22 05/16/22 05/16/22 Range/Units 06:01 06:23 11:13 RBC 2.43 L (4.30-5.90) m/uL Hgb 7.4 L (13.0-17.5) gm/dL Hct 22.6 L (39.0-53.0) % RDW 16.8 H (11.5-15.5) % Lymphocytes # (1.0-4.8) k/uL Sodium (137-145) mmol/L BUN (9-20) mg/dL POC Glucose (mg/dL) 112 H 199 H (70-110) mg/dL Calcium (8.4-10.2) mg/dL - Imaging and Cardiology Chest x-ray: report reviewed, image reviewed Assessment and Plan Assessment: 1. Severe mitral valve regurgitation, status post mitral valve repair 2. Coronary artery disease, previous PCI, previous non-STEMI, status post CABG 3 3. History of paroxysmal atrial fibrillation, previous cardioversion, [facility], status post modified Castanon maze and ligation of left atrial appendage, currently in normal sinus rhythm 4. Patent foramen ovale, status post closure 5. Tricuspid regurgitation 6. Chronic diastolic congestive heart failure, ischemic cardiomyopathy with EF 40-45% 7. History of hypertension 8. History hyperlipidemia, treated, cholesterol 150, LDL 72 9. Right internal carotid stenosis 50-79% 10. Anemia with history of GI bleed in November 2021 S/P transfusion PRBCs 11. Acute on chronic renal failure, baseline creatinine 1.2-1.6 12. Diabetes mellitus type 2, preoperative hemoglobin A1c 5.6% 13. Osteoarthritis 14. Severe COPD, preoperative FEV1 41% of predicted 15. Chronic ongoing nicotine dependence 16. Remote history of pneumonia 17. Chronic low back pain 18. Hearing disorder 19. Nasal swab positive for MSSA preoperative 20. Postoperative acute blood loss anemia, expected 21. Elevated transaminases, continue to trend downward 22. Protamine reaction intraoperative 23. Medical debility, generalized weakness 24. Stage II-III decubitus to his buttocks, status post surgical debridement 25. Small left-sided pleural effusion, status post left-sided thoracentesis on 04/30/2022, and on 05/07/2022 26. Urinary retention possibly secondary to constipation, resolved Plan: 1. Continue low-dose aspirin, and beta siomara. We will increase his metop rolol tartrate as tolerated. 2. Encourage incentive spirometry 10 times every hour while awake. B ronchodilators per pulmonology/critical care management. 3. Wound care Medihoney ordered for treatment for the patient's decubitus, managed by Dr. Chen from infectious disease. Antibiotic management per infectious disease recommendations currently on Zosyn and daptomycin. 4. Will monitor daily labs and chest x-rays. Electrolyte replacement per protocol. Avoid hepatotoxic and nephrotoxic medications. 5. Increase activity, ambulate as tolerated. PT/OT/cardiac rehab following. Needs much encouragement with ambulation. 6. Insulin management per primary care service. Patient is a diabetic with a preoperative hemoglobin A1c of 5.6% on multiple oral medications, needs tight blood sugar control. 7. GI/DVT prophylaxis. Continue Protonix 40 mg IVP twice a day. 8. Continue Flomax and continue to record strict accurate I's and O's. 9. Pain control with current medication regimen. 10. Daily weights. 11. Shower daily. 12. Importance of risk modification including smoking cessation counseling and education provided to patient and family. 13. Discharged to inpatient rehab within the next 48 hours, waiting on insurance authorization. 14. Continue Bumex 2 mg IV daily. 15. Restart Eliquis 5 mg by mouth twice a day once okay with Dr. Ramos. 16. Stool for C. diff was negative. 17. More recommendations to follow based on patient's clinical course. Time with Patient: Greater than 30
--- NOTE | 2022-05-16 15:09 | P.PN ---
Subjective Progress Note Date: 05/16/22 CHIEF COMPLAINT: GI bleed, sacral decubitus ulcer HISTORY OF PRESENT ILLNESS: Patient remains in the ICU. Patient had EGD with Dr. Hoyos the head showed an actively bleeding duodenal AVM on the second/third part of the duodenum status post argon plasma coagulation and clip. He had 2 small gastric AVMs with no active bleeding status post coagulation with argon plasma. Patient reports still having black bowel movements. He reports after procedure he started having black stools about every half hour. Hemoglobin today is stable at 7.4. Currently on regular diet. Afebrile. PHYSICAL EXAM: VITAL SIGNS: Reviewed. GENERAL: Well-developed in no acute distress. HEENT: No sclera icterus. Extraocular movements grossly intact. Moist buccal mucosa. Head is atraumatic, normocephalic. ABDOMEN: Soft. Nondistended. Nontender. NEUROLOGIC: Alert and oriented. Cranial nerves II through XII grossly intact. Skin: Sacral ulcer is showing evidence of healing. It is decreased in size. Healthy tissue noted with granulation tissue. [place] healthy edge around ulcer ASSESSMENT: 1. Sacral decubitus ulcer and abscess status post incision, drainage and debridement 2. Acute GI bleed due to bleeding duodenal AVM and small gastric AVMs PLAN: -Continue local wound care to sacral ulcer -Continue offloading -Continue to hold Eliquis -Continue PPI -Continue to monitor hemoglobin and transfuse as needed -Continue monitoring for any signs or symptoms of bleeding -Surgical service will sign off. Please call with any questions or concerns Physician [employer] note has been reviewed by physician. Signing provider agrees with the documented findings, assessment, and plan of care. Patient doing well today. Still with mild pain at the decubitus site. Still with some black-colored stools. Will defer GI bleed issues to Dr. Hoyos at this point. Continue local wound care. We will sign off. Please call if needed. Objective - Vital Signs Vital signs: Vital Signs Temp 98.2 F 05/16/22 12:00 Pulse 79 05/16/22 14:00 Resp 22 05/16/22 14:00 BP 100/49 05/16/22 14:00 Pulse Ox 96 05/16/22 12:00 FiO2 100 04/22/22 16:00 Intake & Output 05/15/22 05/16/22 05/16/22 18:59 06:59 18:59 Intake Total 810 560 Output Total 7732 903 2176 Balance -591 -650 -465 Weight 90.9 kg 91.1 kg Intake: IV 500 200 0.9 0 Piperacillin-Tazobactam 3 200 100 .375 gm In Sodium Chloride 0.9% 100 ml @ 25 mls/hr IVPB Q8HR ZULMA Rx# :[id number] Sodium Ferric Gluconat- 100 100 Sucrose 125 mg In Sodium Chloride 0.9% 100 ml @ 100 mls/hr IVPB DAILY ZULMA Rx#:[id number] Oral 360 Blood Product 310 Rc As-1 Unit 310 [id number] Output: Urine 2851 285 8014 Stool 1 Other: Voiding Method Urinal Urinal Urinal # Voids 0 1 # Bowel Movements 1 0 1 ABP, PAP, CO, CI - Last Documented Arterial Blood Pressure 137/47 Pulmonary Artery Pressure 67/18 Cardiac Output 5.8 Cardiac Index 2.8 - Labs CBC & Chem 7: 05/16/22 06:01 05/16/22 06:01 Labs: Abnormal Lab Results - Last 24 Hours (Table) 05/15/22 05/15/22 05/15/22 Range/Units 14:18 16:38 18:42 RBC 2.59 L 2.47 L (4.30-5.90) m/uL Hgb 8.0 L D 7.6 L (13.0-17.5) gm/dL Hct 24.4 L 23.2 L (39.0-53.0) % RDW 16.5 H 16.6 H (11.5-15.5) % Lymphocytes # (1.0-4.8) k/uL Sodium (137-145) mmol/L BUN (9-20) mg/dL POC Glucose (mg/dL) 152 H (70-110) mg/dL Calcium (8.4-10.2) mg/dL 05/15/22 05/16/22 05/16/22 Range/Units 20:08 01:20 06:01 RBC 2.43 L (4.30-5.90) m/uL Hgb 7.3 L (13.0-17.5) gm/dL Hct 22.7 L (39.0-53.0) % RDW 16.7 H (11.5-15.5) % Lymphocytes # 0.5 L (1.0-4.8) k/uL Sodium 135 L (137-145) mmol/L BUN 35 H (9-20) mg/dL POC Glucose (mg/dL) 242 H (70-110) mg/dL Calcium 7.4 L (8.4-10.2) mg/dL 05/16/22 05/16/22 05/16/22 Range/Units 06:01 06:23 11:13 RBC 2.43 L (4.30-5.90) m/uL Hgb 7.4 L (13.0-17.5) gm/dL Hct 22.6 L (39.0-53.0) % RDW 16.8 H (11.5-15.5) % Lymphocytes # (1.0-4.8) k/uL Sodium (137-145) mmol/L BUN (9-20) mg/dL POC Glucose (mg/dL) 112 H 199 H (70-110) mg/dL Calcium (8.4-10.2) mg/dL
--- NOTE | 2022-05-16 15:39 | P.PN ---
Subjective Progress Note Date: 05/16/22 On today's evaluation of 05/14/2022, the patient is postop day #25. The patient is doing well. He is on good progress postop. His chest x-ray still showing evidence of bilateral pleural effusion that are essentially small and the patient is currently on 3 L of oxygen by nasal cannula. . He is breathing comfortably. He is alert and oriented 3. He is ambulating. I reviewed the ultrasound the chest and the chest x-ray and there is no need for thoracentesis at this point in time.. The patient is breathing adequately for now. No significant shortness of breath. He is ambulating. He is using the incentive spirometer. Over the past 24-48 hours, there was a drop in hemoglobin down to 6.5 and the patient was given units of packed RBC and hemoglobin today is up to 7.2. He continues to have some autonomic black tarry stools according to nursing staff. His hemoglobin is to be monitored. He is known to have previous duodenal ulcers. The patient has a hemoglobin of 7.2 from today. Creatinine is also improved and is currently down to 1.3 with a BUN of 34. Continues to receive Lasix on a daily basis. He is also on aspirin 81 mg by mouth daily, metoprolol 25 mg twice a day and the patient is also being treated for a sacral decubitus ulcer and he has many honey and Opteform and is also covered with a combination of Zosyn and daptomycin. He is urinating adequately. He was treate d with IV iron regarding his blood loss anemia. On 05/15/2022, the patient is postop day #26. Decision same as yesterday. Continues to have small bilateral pleural effusions. Remains on oxygen at 3 L per minute nasal cannula. He did have another episode of bloody stool in hemoglobin drop down to 6.2 and the patient is receiving a unit of packed RBC and the patient is going to undergo a EGD today to identify the source of bleeding. No hematemesis. No abdominal distention or pain. Antibiotic coverage remains unchanged and the patient is currently on daptomycin and Zosyn. He is weak. He is being diuresed and a daily basis with Bumex 2 mg IV every 24 hours. On his blood work, the response at 6.6 with a hemoglobin of 6.2 and a platelet count of 215, sodium is at 137 with a potassium level of 4 and a BUN of 41 with a creatinine of 1.37. No altered mentation. He remains weak. No focal neurological deficits. He is receiving wound care to his sacral decubitus ulceration. On 05/16/2022, the patient is stable. 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 There was also 2 other small gastric AVMs which were not showing any active bleeding and coagulation with argon plasma was also performed. The patient since then has remained stable and there is no further drop in hemoglobin for now. For now, the patient is stable hemoglobin of 7.4. Creatinine is also improving and the patient remains on Bumex. Urine is at 35 with a creatinine 1.1. Low-density edema is improving. The patient is having some loose liquidy stool and the stool for C. diff has been also negative. The patient is on Rocephin antibiotics. The patient is is receiving wound care for a sacral decubitus ulcer. Tolerating diet. No nausea or vomiting. Overall, he is still feeling weak. The patient is postop day #27 for now. He remains on oxygen at 50 L/m nasal cannula. No gallop. No nausea. No emesis. No altered mentation. Objective - Vital Signs Vital signs: Vital Signs Temp 98.2 F 05/16/22 12:00 Pulse 79 05/16/22 15:08 Resp 22 05/16/22 15:08 BP 94/42 05/16/22 15:08 Pulse Ox 97 05/16/22 15:08 FiO2 100 04/22/22 16:00 Intake & Output 05/15/22 05/16/22 05/16/22 18:59 06:59 18:59 Intake Total 810 660 Output Total 2242 508 7647 Balance -598 -650 -014 Weight 90.9 kg 91.1 kg Intake: IV 500 200 0.9 0 Piperacillin-Tazobactam 3 200 100 .375 gm In Sodium Chloride 0.9% 100 ml @ 25 mls/hr IVPB Q8HR [facility] Rx# :[id number] Sodium Ferric Gluconat- 100 100 Sucrose 125 mg In Sodium Chloride 0.9% 100 ml @ 100 mls/hr IVPB DAILY [facility] Rx#:[id number] Oral 460 Blood Product 310 Rc As-1 Unit 310 [id number] Output: Urine 8891 531 6562 Stool 1 Other: Voiding Method Urinal Urinal Urinal # Voids 0 1 # Bowel Movements 1 0 1 ABP, PAP, CO, CI - Last Documented Arterial Blood Pressure 137/47 Pulmonary Artery Pressure 67/18 Cardiac Output 5.8 Cardiac Index 2.8 - Exam CONSTITUTIONAL: Sitting up to the bedside chair in the intensive care unit, appears comfortable, cooperative, no apparent acute distress. The patient is currently on 3 L O2 nasal cannula HEENT: Neck is supple, no JVD, no lymphadenopathy. RESPIRATORY: Lungs sounds essentially clear throughout, diminished to his bi lateral bases and few scattered crackles to his bilateral bases. Respirations are symmetrical and nonlabored. CARDIOVASCULAR: Regular rhythm and rate. S1 and S2 present, negative for S3, or gallop, soft systolic murmur heard best to his left sternal border. Sternum is stable. Palpable peripheral pulses bilaterally, +1 edema to his bilateral lower extremities. No calf pain or tenderness noted. Heart hugger in place with patient demonstrating appropriate use. Knee-high RAFAEL hose and sequential compression devices in place to his bilateral lower extremities. Bedside telemetry showing normal sinus rhythm with heart rate 81 BPM. GASTROINTESTINAL: Abdomen soft, nontender, nondistended. Active bowel sounds present 4 quadrants. Tolerating diet. Passing flatus. No guarding or rigidi ty. n GENITOURINARY: Within normal limits INTEGUMENTARY: Skin is warm and dry with no evidence of clubbing or cyanosis. Midline sternal incision clean dry and well approximated, covered with dry int act dressing. Bilateral lower extremity EVH sites well approximated without redness or drainage. Stage II to III decubitus ulcer present to his buttocks covered with optifoam. MUSKULOSKELETAL: Able to move all extremities, strength equal bilaterally, generalized weakness. PSYCHIATRIC: Alert and oriented to person place and time, appropriate affect, intact judgment and insight. - Labs CBC & Chem 7: 05/16/22 06:01 05/16/22 06:01 Labs: Abnormal Lab Results - Last 24 Hours (Table) 05/15/22 05/15/22 05/15/22 Range/Units 16:38 18:42 20:08 RBC 2.47 L (4.30-5.90) m/uL Hgb 7.6 L (13.0-17.5) gm/dL Hct 23.2 L (39.0-53.0) % RDW 16.6 H (11.5-15.5) % Lymphocytes # (1.0-4.8) k/uL Sodium (137-145) mmol/L BUN (9-20) mg/dL POC Glucose (mg/dL) 152 H 242 H (70-110) mg/dL Calcium (8.4-10.2) mg/dL 05/16/22 05/16/22 05/16/22 Range/Units 01:20 06:01 06:01 RBC 2.43 L 2.43 L (4.30-5.90) m/uL Hgb 7.3 L 7.4 L (13.0-17.5) gm/dL Hct 22.7 L 22.6 L (39.0-53.0) % RDW 16.7 H 16.8 H (11.5-15.5) % Lymphocytes # 0.5 L (1.0-4.8) k/uL Sodium 135 L (137-145) mmol/L BUN 35 H (9-20) mg/dL POC Glucose (mg/dL) (70-110) mg/dL Calcium 7.4 L (8.4-10.2) mg/dL 05/16/22 05/16/22 Range/Units 06:23 11:13 RBC (4.30-5.90) m/uL Hgb (13.0-17.5) gm/dL Hct (39.0-53.0) % RDW (11.5-15.5) % Lymphocytes # (1.0-4.8) k/uL Sodium (137-145) mmol/L BUN (9-20) mg/dL POC Glucose (mg/dL) 112 H 199 H (70-110) mg/dL Calcium (8.4-10.2) mg/dL Assessment and Plan Plan: Severe mitral valve regurgitation, status post mitral valve repair, postoperative day # 27 Coronary artery disease, previous PCI, previous non-STEMI, status post CABG 3, postop day # 27 History of paroxysmal atrial fibrillation, previous cardioversion, on Eliqu outpatient for anticoagulation, status post modified Castanon maze and ligation of left atrial appendage, postop day #27, he is currently in sinus rhythm and the patient is currently off anticoagulants. Patent foramen ovale, status post closure, postop day #27 Atrial fibrillation, expected outcome of surgery and the patient is back to normal sinus rhythm. Chronic systolic congestive heart failure, ischemic cardiomyopathy with EF 40- 45% Acute on chronic drop in hemoglobin/anemia with a component of an upper GI bleed secondary to AV malformation in portion of the duodenum and the patient also had a nonbleeding ulcers and a stomach. I don't plasma treatment was applied and the bleeding stopped and the patient has adequate hemostasis for now. 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 History of hypertension History hyperlipidemia, treated, cholesterol 150, LDL 72 Right internal carotid stenosis 50-79% Previous Anemia with history of GI bleed in November 2021 S/P transfusion PRBCs Acute on chronic renal failure, the creatinine is stable currently down to n ormal Diabetes mellitus type 2, preoperative hemoglobin A1c 5.6% currently Levemir insulin 8 units along with a sliding scale coverage Osteoarthritis Severe COPD, preoperative FEV1 41% of predicted Chronic ongoing nicotine dependence Remote history of pneumonia Chronic low back pain, hearing disorder Nasal swab positive for MSSA preoperative Postoperative acute blood loss anemia, expected Elevated transaminases, most likely due to shock liver and the significant elevation of the ALT and AST which are being monitored, and the level is also improving and there is a decline and LFTs Protamine reaction intraoperative decubitus ulcer stage 2, post wound debridement left-sided pleural effusion post thoracentesis of the left Left lung removal of 800 mL of pleural fluid. Plan: Monitor hemoglobin EGD done yesterday was noted Continue IV iron Monitor hemoglobin Continue Bumex 2 mg on a daily basis IV Monitor hemoglobin and watch for any signs of GI bleeding Continue IV iron Continue aspirin continue metoprolol 25 mg twice a day continue wound care Continue Zosyn and daptomycin Continue using incentive spiromete Increase mobility Continue supportive care
--- NOTE | 2022-05-16 16:34 | P.PN ---
Progress Note - Text Progress Note Date: 05/16/22 Patient is a pleasant 72-year-old male came in the for elective mitral valve repair, CABG x 3 vessel, maze procedure, PFO closure. Patient is extubated sitting in the chair patient still has a [place] catheter, CVP of around 12, cardiac index 3.1 patient creatinine went up to 1.70 resulting elevated potassium of 5.5 patient is off pressor support, off nitro drip patient still has 2 mediastinal and one left-sided chest tube. 04/21/2022 Patient is evaluated in ICU today, sitting up in chair. He is postoperative day #2 for elective mitral valve repair, hematocrit bypass grafting maze procedure and PFO closure. He is on BiPAP with fio2 of 40% Continues with mediastinal/left pleural chest tubes. Continue with indwelling catheter. Received dose of IV albumin yesterday afternoon. Chest xray today showing ongoing mild pulmonary vascular congestion, increasing patchy bibasilar opacities, atelectasis vs. pulmonary edema. Currently on lasix gtt at 10mls/hr, continues on dopamine gtt at 3.68 mls/hr. Continues on insulin gtt and blood glucose remains in the 140 to 130s. Labs today showing sodium 132, potassium 6.1 improved to 5.4, BUN 41, creatinine 2.53, elevated liver enzymes. Hgb 7.3. 04/22/2022 Patient continues to be monitored closely in intensive care unit, he is postoperative day #3 for elective mitral valve repair, maze procedure, PFO closure. Managed by primary team. He had limited echocardiogram completed showing EF 45 to 50%, mild to moderate MR, moderate pulmonary hypertension with moderate TR. Chest xray today shows slight improvement in pulmonary vascular congestion. Maintained on lasix gtt at 10mls/hr, dopamine gtt, Continues with 2 mediastinal chest tubes. Continues with indwelling catheter. Continues with right IJ swan/cordis, right radial arterial line. He has been weaned off BiPAP currently on high flow cannula at 15L. He has been tolerating some diet. Continues on insulin gtt which will continue until his diet stabilizes. Current glucose in the 140s. Creatinine today 3.14. April 23: I assumed care of patient today from [facility]. ICU. In a recliner. Tired. Little oral intake. Nasal cannula. Drips include IV dopamine and Lasix. Some shortness of breath. Mooney catheter. 04/24/2022: ICU. Up. 4 L nasal cannula. Did eat better. Edema present. On the Lasix drip 5 mg an hour. Some improvement in creatinine. 04/25/2022: ICU. Up in a recliner. Eating better. at the bedside. Edema present. Off Lasix drip. Feeling better. Creatinine coming down. LFTs improving. Home dose of Victoza was started 04/26/2022: ICU. Up in a recliner. 4 L nasal cannula. Eating about 50%. Accu-Cheks noted. 04/27/2022: ICU: Patient went into atrial fibrillation overnight. Put on oral amiodarone and Lopressor per CTS.. Some worsening of shortness of breath. Placed on IV Lasix. Eating some. Up in a recliner. 04/28/2022: ICU. Patient received Lopressor today for the A. fib. Patient went down into sinus rhythm. Blood pressure also dropped her was 70 systolic. Oxygen increased to 4 L. Short of breath. Patient did walk 10-12 steps up to the door. Eating fair. Lower extremity edema edema present. Up in a chair. Tired. 04/29/2022: ICU. Short of breath. 3 L nasal cannula. Eating fair. Edema pre sent. Getting Bumex. Getting IV albumin and IV calcium. Using incentive spirometry. Up in a chair. Discussed with at the bedside. Increasing white count, infiltrated urine chest x-ray suggestive of pneumonia. Started on IV cefepime 04/30/2022: ICU. Remains short of breath. 3 L nasal cannula. Started on IV cefepime yesterday.. Oral intake fair. Edema present. Remains on Bumex. Fo sher catheter. Discussed with patient and at the bedside. Discussed with Dr. Cortez from cardiothoracic surgery. 05/01/2022: ICU. Zaroxolyn was added. Good diuresis. Breathing better. On IV cefepime. Left paracentesis is done. 850 mL removed. Oral intake fair. Breathing a bit better. Telemetry shows sinus rhythm. 2 L nasal cannula. at the bedside. Will DC Actos. Even though smaller dose. Given CHF renal failure. Increase Lantus to 12 units. 05/02/2022: ICU. Over 3 is a negative fluid balance. Last 24 hours. Some improvement in breathing. Oral intake fair. Remains in atrial fibrillation controlled. 2 L nasal cannula. Add Diamox. 4 metabolic alkalosis 05/03/2022: ICU. This morning patient became short of breath. Dr. Chen from [place] consulted for sacral decub. Remains on IV cefepime. Oral intake fair. Had a BM. On IV Bumex. I discussed with Dr. Aguilar from pulmonary. Patient is known to him. Advanced COPD. His right lung changes are chronic. Has had previous CAT scans. He may have had a located effusion. 05/04/2022: ICU. Breathing a bit better. Hemoglobin dropped to 6.1. Awaiting transfusion. Tolerating diet. On IV cefepime. Patient started on IV eraxis by Dr. Prescott from [place]. 05 May 2022: ICU. Patient received a unit of blood yesterday evening. Getting another unit of blood today. Breathing better. Remains on IV Bumex. IV cefepime discontinued. Remains on IV Eraxis. Oral intake fair. Up in a chair. at the bedside. Increase Levemir to 20 units at night. 05/06/2022: ICU. Patient received a 3rd unit blood this morning. Breathing better. Had some blood in his urine. On 2 L is cannula. Sitting up in a chair, eating better. Some cough with brownish sputum. 05/07/2022: ICU. Up in a chair. Eating better. On 2 L nasal cannula. On IV daptomycin. IV Zosyn. Has had dark stools but is on iron. We'll hold off oral iron to see if stool color lightens. Add NovoLog 5 units scheduled with meals. Hemoglobin dropped again to 6.2. Received 1 unit of blood today. 05/08/2022: ICU. Seen by me this morning. Hemoglobin further dropped again. 5.9. Data patient underwent EGD by Dr. Fiore. Fresh blood seen in the third and fourth portion of duodenum of blood clots noted. No obvious source noted. Patient is on PPI. Also sacral decub ulcer abscess also drained. Patient received a unit of blood this morning. Discussed with Neema from cardiothoracic team. Patient does not like hospital food. has been free eating food from outside. Including [employer] fish [employer] etc. Difficult to control Accu- Cheks. Concerned the patient may become hypoglycemic if a more aggressive. farxiga is being added. 05/09/2022: ICU. No further drop in hemoglobin after blood transfusion yesterday. Patient is off eliquis. Had a dark stool today. Oral intake fair. On 2 L nasal cannula. On IV daptomycin IV Zosyn. 05/10/2022: ICU. Patient had no further drop in hemoglobin. Had a black stool. Off oxygen. Eating well. Accu-Cheks will stabilize. On IV daptomycin IV Zosyn. Sputum growing Margo albicans and Aspergillus fumigators. We'll decrease Levemir to 16 units. Decreased scheduled NovoLog to 3 units with meals. 05/11/2022: ICU. Patient was short of breath this morning. Remains on IV Bumex. Had black stool today. Hemoglobin remained stable. Accu-Cheks followed. Levemir cutback to 12 units at night. Remains on IV daptomycin IV Zosyn. Up in a chair. 05/12/2022: ICU. Some shortness of breath. On 2 L nasal cannula. Hemoglobin remained stable. Oral intake fair. On IV daptomycin and IV Zosyn. Up in a chair. at the bedside. 05/13/2022: ICU. Patient continues to be a bit short of breath. IV Bumex. Remains on IV daptomycin IV Zosyn. Some cough. Tired. Continues to have dark stools. Hemoglobin dropped again to 6.5. Received a unit of blood this morning. GI Dr. Michelle Ramos's been consulted. Accu-Cheks running low lower side. DC Levemir. 05/14/2022: ICU. Patient's had more dark stools. Seen by Dr. Michelle Ramos from GI today. For endoscopy tomorrow. Tolerating diet. On 2 L cannula. Patient is on Levemir since yesterday. 05/15/2022: ICU. Patient was seen by me earlier today. Hemoglobin dropped again. Received a unit of blood. Later this afternoon patient went down for EGD by Dr. Michelle Ramos.:1. 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 2 small gastric AVMs with no active bleeding status post coagulation with argon plasma 05/16/2022: ICU. Up in a chair. present. No further drop in hemoglobin. On 3 L nasal cannula. Eating fair. Accu-Cheks controlled. Active Medications Acetaminophen (Acetaminophen Tab 325 Mg Tab) 650 mg PO Q6HR PRN PRN Reason: Fever and/ or Mild Pain Last Admin: 05/14/22 17:04 Dose: 650 mg Hydrocodone Bitart/Acetaminophen (Hydrocodone/Apap 5-325mg 1 Each Tab) 1 each PO Q4HR PRN PRN Reason: Moderate Pain (Scale 4 to 6) Last Admin: 05/15/22 20:57 Dose: 1 each Albuterol/Ipratropium (Ipratropium-Albuterol 3 Ml Neb) 3 ml INHALATION RT-Q2H PRN PRN Reason: Shortness Of Breath Or Wheezing Last Admin: 05/15/22 22:26 Dose: 3 ml Albuterol/Ipratropium (Ipratropium-Albuterol 3 Ml Neb) 3 ml INHALATION RT-QID [facility] Last Admin: 05/16/22 11:04 Dose: 3 ml Ascorbic Acid (Ascorbic Acid 500 Mg Tab) 500 mg PO DAILY [facility] Last Admin: 05/16/22 08:54 Dose: 500 mg Aspirin (Aspirin 81 Mg) 81 mg PO DAILY [facility] Last Admin: 05/16/22 11:23 Dose: 81 mg Atorvastatin Calcium (Atorvastatin 20 Mg Tab) 20 mg PO DAILY [facility] Last Admin: 05/16/22 08:53 Dose: 20 mg Benzocaine/Menthol (Benzocaine/Menthol Lozeng 1 Each Lozenge) 1 each MUCOUS MEM Q2HR PRN PRN Reason: Sore Throat Last Admin: 05/14/22 16:00 Dose: 1 each Bisacodyl (Bisacodyl 10 Mg Supp) 10 mg RECTAL DAILY PRN PRN Reason: Constipation Last Admin: 05/09/22 09:10 Dose: 10 mg Budesonide/Formoterol Fumarate (Symbicort 160-4.5 Mcg Inhaler) 2 puff INHALATION RT-BID [facility] Last Admin: 05/16/22 08:04 Dose: 2 puff Bumetanide (Bumetanide 0.25 Mg/Ml 10 Ml Vial) 2 mg IV DAILY [facility] Last Admin: 05/16/22 08:54 Dose: 2 mg Dapagliflozin (Dapagliflozin Propanediol 10 Mg Tablet) 10 mg PO DAILY [facility] Dextrose/Water (Dextrose 50% Syringe 50 Ml) 25 ml IVP PER PROTOCOL PRN; P rotocol PRN Reason: Hypoglycemia Dextrose/Water (Dextrose 50% Syringe 50 Ml) 50 ml IVP PER PROTOCOL PRN; Protocol PRN Reason: Hypoglycemia Guaifenesin/Dextromethorphan (Guaifenesin-Dm 600/30mg 1 Each Tab.Er.12h) 1 each PO Q12HR [facility] Last Admin: 05/16/22 08:55 Dose: 1 each Piperacillin Sod/Tazobactam (Sod 3.375 gm/ Sodium Chloride) 100 mls @ 25 mls/hr IVPB Q8HR [facility]ULMA; Protocol Last Admin: 05/16/22 08:54 Dose: 25 mls/hr Insulin Aspart (Insulin Aspart (Novolog) 100 Unit/Ml Vial) 0 unit SQ ACHS [facility]ULMA; Protocol Last Admin: 05/16/22 14:39 Dose: 2 unit Lidocaine (Lidocaine 5% Patch) 2 patch TOPICAL DAILY [facility]; Protocol Last Admin: 05/16/22 08:56 Dose: 2 patch Lisinopril (Lisinopril 2.5 Mg Tab) 2.5 mg PO DAILY [facility] Last Admin: 05/16/22 11:22 Dose: Not Given Magnesium Hydroxide (Magnesium Hydroxide 2,400 Mg/10 Ml Cup) 2,400 mg PO BID PRN PRN Reason: Constipation Last Admin: 04/22/22 07:08 Dose: 2,400 mg Metoprolol Tartrate (Metoprolol Tartrate 25 Mg Tab) 25 mg PO BID [facility] Last Admin: 05/16/22 09:01 Dose: 25 mg Miscellaneous Information (Potassium Replacement Protocol 1 Each Misc) 1 each MISCELLANE DAILY PRN; Protocol PRN Reason: Per Protocol Miscellaneous Information (Magnesium Replacement Protocol 1 Each Misc) 1 each MISCELLANE DAILY PRN; Protocol PRN Reason: Per Protocol Non-Formulary Medication (Non Formulary Drug) 1 each SQ DAILY [facility] Last Admin: 05/16/22 08:55 Dose: 1 each Ondansetron HCl (Ondansetron 4 Mg/2 Ml Vial) 4 mg IVP Q6HR PRN PRN Reason: Nausea And Vomiting Last Admin: 05/15/22 20:13 Dose: 4 mg Pantoprazole Sodium (Pantoprazole 40 Mg/10 Ml Vial) 40 mg IVP BID [facility] Last Admin: 05/16/22 08:59 Dose: 40 mg Potassium Chloride (Potassium Chloride Er 10 Meq Tab.Er.Prt) 10 meq PO DAILY [facility] Last Admin: 05/16/22 08:54 Dose: 10 meq Senna/Docusate Sodium (Sennosides-Docusate Sodium 1 Each Tab) 2 each PO HS [facility] Last Admin: 05/15/22 20:12 Dose: Not Given Sodium Chloride (Sodium Chloride 0.9% Flush 10 Ml Syringe) 10 ml IV BID [facility] Last Admin: 05/16/22 08:59 Dose: 10 ml Tamsulosin HCl (Tamsulosin 0.4 Mg Cap.Er.24h) 0.4 mg PO PC-BRKFST [facility] Last Admin: 05/16/22 08:54 Dose: 0.4 mg On examination: VITAL SIGNS: 98.2, 78, 16, 99/52, 96% on 3 times GENERAL APPEARANCE: Up in chair, some short of breath HEENT: Normal external appearance of nose and ear. Oral cavity normal EYES: Pupils equal. Conjunctiva normal. NECK: JVD not raised. Mass not palpable. RESPIRATORY: Respiratory effort increased. Lungs diminished breath sounds. CARDIOVASCULAR: First and second sounds normal. Edema present ABDOMEN: Soft. Liver and spleen not palpable. No tenderness. No mass palpable. Sacral decub. PSYCHIATRY: AO 3, mood and affect normal INVESTIGATIONS, reviewed in the clinical context: 05/16/2022: White count 6.60 globin 7.4 potassium 4.1 creatinine 1.11 C. diff: Negative 05/15/2022: Hemoglobin 6.2 platelets 215 progression for BUN 41 creatinine 1.37 05/14/2022: WBC 5.8 hemoglobin 7 platelets 202 05/13/2022: White count 8.3 hemoglobin 6.5 platelets 197 potassium 4.4 BUN 42 creatinine 1.33 05/04/2022: WBC 16 hemoglobin 6.1 platelets 362 potassium 3.7 BUN 75 creatinine 1.75 Limited 2-D echocardiogram [May 01]: EF 45%. [id number] MR, moderate aortic stenosis 05/01/2022: WBC 15.3 hemoglobin 7.2 platelets 305 potassium 4. [address] chest [April 29]: Moderate partial obliterate right pleural effusion, left pleural effusion, cardiomegaly. 04/24/2022: WBC 9.2 hemoglobin 7.1 platelets 122 potassium 5.1 BUN 77 creatinine 2.97 AST 1270 ALT 1038 WBC 8.2 hemoglobin 7.5 platelets 111 sodium 135 progression 6 BUN 67 creatinine 3.43 AST 3595 ALT 1512 Limited 2-D echocardiogram: EF 45-50%. Inferior wall hypokinesis. Moderate MR. Moderate pulmonary hypertension with moderate TR. Assessment and plan -Acute on chronic congestive heart exacerbation from systolic/diastolic dysfunction EF 45-50%:, precipitated by A. fib: Bumex 2 mg IV daily -pneumonia, short of breath, infiltrate on chest x-ray, increasing white count and procalcitonin: Better IV cefepime-completed -Acute hypoxic respiratory failure from pulmonary edema/pneumonia: Better On 3 L nasal cannula -Diabetes Mellitus type 2 , better. Victoza . farxiga 5 mg -Paroxysmal atrial fibrillation status post modified [place]-Maze procedure,: With rapid ventricular rate: Now - sinus rhythm amiodarone ,Lopressor. Eliquis held because of GI bleed -Acute GI bleed from the third and fourth portion of duodenum: 1. 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 2 small gastric AVMs with no active bleeding status post coagulation with argon plasma: By Dr. Michelle Ramos -acute renal failure on chronic kidney disease stage II with renal failure is probably prerenal azotemia, cardiorenal syndrome.: Better Creatinine peaked at 3.43. Creatinine 1.11 -hyperkalemia secondary to acute renal failure: Corrected Received Lokelma. Renal diet -Acute hepatitis, likely ischemic: Better Follow closely. GI services not available in the hospital. Hold any hepatic offensive medications. Follow LFTs patient as patient started back on amiodarone -Acute COPD exacerbation, in a smoker DuoNeb. Symbicort -Hyperlipidemia Lipitor -Sacral decubitus ulcer: With abscess. Large abscess was encountered. 12 x 10 x 4 cm deep. Cleaned out by Dr. Fiore 05/08/2022. Follow with ID. On IV daptomycin, IV Zosyn -Metabolic alkalosis from diuresis Was on Diamox - coronary artery disease with previous PCI Aspirin, Imdur, Lopressor -Acute postprocedure blood loss anemia as expected from surgery, also hospital- acquired anemia from blood draws Received PRBC -Chronic nicotine dependence - post mitral valve failure, status post CABG, status post PFO closure: Currently [id number] MR -Moderate aortic stenosis -Moderate secondary pulmonary hypertension Hemoglobin remained stable. Accu-Cheks controlled. Oral intake fair. 3 L nasal cannula. For rehab placement.
[2022-05-16 17:01] LABS: Glucose,Whole Blood 106 mg/dL (70-110)
--- NOTE | 2022-05-16 17:03 | P.PN ---
Subjective Progress Note Date: 05/16/22 Principal diagnosis: Leukocytosis Patient is a 72-year-old male electively admitted to the hospital 04/19/2022 for mitral valve repair and coronary bypass grafting 3 and this patient has been afebrile however noticed to have worsening leukocytosis. Patient has been evaluated by general surgery and is scheduled for EGD and debridement of the sacral wound Completed on 05/08/2022 unfortunately abscess was drained but no cultures were obtained. Patient is status post EGD completed on 05/15/2022 with evidence of duodenal bleeding On today's evaluation that is 05/16/2022 patient continues to be afebrile , the patient is breathing comfortably on 3 L nasal cannula oxygen, the patient denies chest pain , the patient did have occasional dry cough no nausea no vomiting no abdominal pain or any worsening pain to the sacral wound area Objective - Vital Signs Vital signs: Vital Signs Temp 98.2 F 05/16/22 12:00 Pulse 79 05/16/22 14:00 Resp 22 05/16/22 14:00 BP 100/49 05/16/22 14:00 Pulse Ox 96 05/16/22 12:00 FiO2 100 04/22/22 16:00 Intake & Output 05/15/22 05/16/22 05/16/22 18:59 06:59 18:59 Intake Total 810 560 Output Total 6838 592 6475 Balance -591 650 -465 Weight 90.9 kg 91.1 kg Intake: IV 500 200 0.9 0 Piperacillin-Tazobactam 3 200 100 .375 gm In Sodium Chloride 0.9% 100 ml @ 25 mls/hr IVPB Q8HR [facility]MA Rx# :[id number] Sodium Ferric Gluconat- 100 100 Sucrose 125 mg In Sodium Chloride 0.9% 100 ml @ 100 mls/hr IVPB DAILY ZULMA Rx#:[id number] Oral 360 Blood Product 310 Rc As-1 Unit 310 [id number] Output: Urine 7070 277 5448 Stool 1 Other: Voiding Method Urinal Urinal Urinal # Voids 0 1 # Bowel Movements 1 0 1 ABP, PAP, CO, CI - Last Documented Arterial Blood Pressure 137/47 Pulmonary Artery Pressure 67/18 Cardiac Output 5.8 Cardiac Index 2.8 - Exam GENERAL DESCRIPTION: An elderly male up in the chair in no distress RESPIRATORY SYSTEM: Unlabored breathing , decreased breath sounds at bases HEART: S1 S2 regular rate and rhythm , ABDOMEN: Soft , no tenderness Stages the sacral pressure ulcer with some slough tissue at base and surrounding redness some foul-smelling EXTREMITIES: 2+ edema feet - Labs CBC & Chem 7: 05/16/22 06:01 05/16/22 06:01 Labs: Abnormal Lab Results - Last 24 Hours (Table) 05/15/22 05/15/22 05/15/22 Range/Units 14:18 16:38 18:42 RBC 2.59 L 2.47 L (4.30-5.90) m/uL Hgb 8.0 L D 7.6 L (13.0-17.5) gm/dL Hct 24.4 L 23.2 L (39.0-53.0) % RDW 16.5 H 16.6 H (11.5-15.5) % Lymphocytes # (1.0-4.8) k/uL Sodium (137-145) mmol/L BUN (9-20) mg/dL POC Glucose (mg/dL) 152 H (70-110) mg/dL Calcium (8.4-10.2) mg/dL 05/15/22 05/16/22 05/16/22 Range/Units 20:08 01:20 06:01 RBC 2.43 L (4.30-5.90) m/uL Hgb 7.3 L (13.0-17.5) gm/dL Hct 22.7 L (39.0-53.0) % RDW 16.7 H (11.5-15.5) % Lymphocytes # 0.5 L (1.0-4.8) k/uL Sodium 135 L (137-145) mmol/L BUN 35 H (9-20) mg/dL POC Glucose (mg/dL) 242 H (70-110) mg/dL Calcium 7.4 L (8.4-10.2) mg/dL 05/16/22 05/16/22 05/16/22 Range/Units 06:01 06:23 11:13 RBC 2.43 L (4.30-5.90) m/uL Hgb 7.4 L (13.0-17.5) gm/dL Hct 22.6 L (39.0-53.0) % RDW 16.8 H (11.5-15.5) % Lymphocytes # (1.0-4.8) k/uL Sodium (137-145) mmol/L BUN (9-20) mg/dL POC Glucose (mg/dL) 112 H 199 H (70-110) mg/dL Calcium (8.4-10.2) mg/dL Assessment and Plan (1) Leukocytosis Current Visit: Yes Status: Acute Code(s): D72.829 - ELEVATED WHITE BLOOD CELL COUNT, UNSPECIFIED SNOMED Code(s): 847423171 Plan: 1patient with a leukocytosis in this patient who is postop mitral valve repair and CABG x3 patient did not have any fever during this hospital stay and the white count has been slowly creeping up over the last 5 days source possible cath versus UTI versus his sacral pressure ulcer, patient started as well as vein grafting sites looks clean without evidence of any cellulitis he did have a thoracocentesis with fluid does not look infected and cultures subsequently negative. 2 blood cultures are negative. 3patient likely source of elevated white count is infected sacral pressure ulcer, , Patient is status post surgical debridement of the sacral pressure ulcer with evidence of abscess unfortunately no cultures were done 4-patient white count has normalized and the patient will continue the patient on Zosyn. Will discontinue daptomycin and monitor clinical course closely Discussed with [employer] AND [employer] MANAGER for CT surgery Time with Patient: Less than 30
[2022-05-16] MEDS: ONDANSETRON 4 MG/2 ML VIAL IVP PRN (19:24)
[2022-05-16 20:03] LABS: Glucose,Whole Blood 256 mg/dL (70-110)
[2022-05-16] MEDS: SENNOSIDES-DOCUSATE SODIUM 1 EACH TAB PO SCH (20:08)
[2022-05-16] MEDS: HYDROcodone/APAP 5-325MG 1 EACH TAB PO PRN (20:18)
[2022-05-17] MEDS: PIPERACILLIN-TAZOBACTAM 3.375 GM in SODIUM CHLORIDE 0.9% 100 ML IVPB SCH ×3 (00:54→16:27)
[2022-05-17] MEDS: HYDROcodone/APAP 5-325MG 1 EACH TAB PO PRN ×2 (02:09→22:50)
[2022-05-17 06:13] LABS: Glucose,Whole Blood 110 mg/dL (70-110)
[2022-05-17 06:42] LABS: Anisocytosis Slight; HCT 23.4 % (39.0-53.0); HGB 7.2 gm/dL (13.0-17.5); Hypochromasia Marked; MCH 29.6 pg (25.0-35.0); MCHC 30.6 g/dL (31.0-37.0); MCV 96.8 fL (80.0-100.0); Macrocytosis Slight; Mean Platelet Volume 8.3; Platelet Count 232 k/uL (150-450); Poikilocytosis Moderate; RBC 2.42 m/uL (4.30-5.90); RDW 17.2 % (11.5-15.5); WBC 5.4 k/uL (3.8-10.6)
[2022-05-17] MEDS: INSULIN ASPART (NovoLOG) 100 UNIT/ML VIAL SQ SCH ×4 (07:04→20:45)
[2022-05-17 07:27] LABS: Calcium 7.4 mg/dL (8.4-10.2)
--- NOTE | 2022-05-17 08:13 | P.PN ---
Subjective Progress Note Date: 05/17/22 On today's evaluation of 05/14/2022, the patient is postop day #25. The patient is doing well. He is on good progress postop. His chest x-ray still showing evidence of bilateral pleural effusion that are essentially small and the patient is currently on 3 L of oxygen by nasal cannula. . He is breathing comfortably. He is alert and oriented 3. He is ambulating. I reviewed the ultrasound the chest and the chest x-ray and there is no need for thoracentesis at this point in time.. The patient is breathing adequately for now. No significant shortness of breath. He is ambulating. He is using the incentive spirometer. Over the past 24-48 hours, there was a drop in hemoglobin down to 6.5 and the patient was given units of packed RBC and hemoglobin today is up to 7.2. He continues to have some autonomic black tarry stools according to nursing staff. His hemoglobin is to be monitored. He is known to have previous duodenal ulcers. The patient has a hemoglobin of 7.2 from today. Creatinine is also improved and is currently down to 1.3 with a BUN of 34. Continues to receive Lasix on a daily basis. He is also on aspirin 81 mg by mouth daily, metoprolol 25 mg twice a day and the patient is also being treated for a sacral decubitus ulcer and he has many honey and Opteform and is also covered with a combination of Zosyn and daptomycin. He is urinating adequately. He was treate d with IV iron regarding his blood loss anemia. On 05/15/2022, the patient is postop day #26. Decision same as yesterday. Continues to have small bilateral pleural effusions. Remains on oxygen at 3 L per minute nasal cannula. He did have another episode of bloody stool in hemoglobin drop down to 6.2 and the patient is receiving a unit of packed RBC and the patient is going to undergo a EGD today to identify the source of bleeding. No hematemesis. No abdominal distention or pain. Antibiotic coverage remains unchanged and the patient is currently on daptomycin and Zosyn. He is weak. He is being diuresed and a daily basis with Bumex 2 mg IV every 24 hours. On his blood work, the response at 6.6 with a hemoglobin of 6.2 and a platelet count of 215, sodium is at 137 with a potassium level of 4 and a BUN of 41 with a creatinine of 1.37. No altered mentation. He remains weak. No focal neurological deficits. He is receiving wound care to his sacral decubitus ulceration. On 05/16/2022, the patient is stable. 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 There was also 2 other small gastric AVMs which were not showing any active bleeding and coagulation with argon plasma was also performed. The patient since then has remained stable and there is no further drop in hemoglobin for now. For now, the patient is stable hemoglobin of 7.4. Creatinine is also improving and the patient remains on Bumex. Urine is at 35 with a creatinine 1.1. Low-density edema is improving. The patient is having some loose liquidy stool and the stool for C. diff has been also negative. The patient is on Rocephin antibiotics. The patient is is receiving wound care for a sacral decubitus ulcer. Tolerating diet. No nausea or vomiting. Overall, he is still feeling weak. The patient is postop day #27 for now. He remains on oxygen at 50 L/m nasal cannula. No gallop. No nausea. No emesis. No altered mentation. 05/17/2022, the patient is being seen for a follow-up. The patient had on and off some dark stools probably some left over or old blood regarding his recent GI bleed. Hemoglobin remained stable at 7.2. The patient has no nausea or vomiting. No emesis. He is still on 3 L of oxygen by nasal cannula. He is producing adequate amount of urine output. Creatinine is down to 1.09 with a BUN of 28 and a total bilirubin is at 137. The overall fluid balance over the past 24 hours has been -1.2 L. He is weak. Gradually getting stronger. He is doing some limited amount of activity and mobility. He is using the incentive spirometer. Cardiac rhythm is AFIB. The patient is postop day #28. Chest x- ray from today is essentially unchanged. Objective - Vital Signs Vital signs: Vital Signs Temp 98.2 F 05/17/22 04:00 Pulse 79 05/17/22 07:00 Resp 24 05/17/22 07:00 BP 101/54 05/17/22 07:00 Pulse Ox 97 05/17/22 07:00 FiO2 100 04/22/22 16:00 Intake & Output 05/16/22 05/17/22 05/17/22 18:59 06:59 18:59 Intake Total 1120 100 Output Total 1375 701 1 Balance -255 -601 -1 Weight 91 kg Intake: IV 300 100 Piperacillin-Tazobactam 3 200 100 .375 gm In Sodium Chloride 0.9% 100 ml @ 25 mls/hr IVPB Q8HR [facility] Rx# :[id number] Sodium Ferric Gluconat- 100 Sucrose 125 mg In Sodium Chloride 0.9% 100 ml @ 100 mls/hr IVPB DAILY [facility] Rx#:[id number] Oral 820 0 Output: Urine 1375 700 Stool 1 1 Other: Voiding Method Urinal Urinal # Voids 0 1 # Bowel Movements 1 ABP, PAP, CO, CI - Last Documented Arterial Blood Pressure 137/47 Pulmonary Artery Pressure 67/18 Cardiac Output 5.8 Cardiac Index 2.8 - Exam CONSTITUTIONAL: Sitting up to the bedside chair in the intensive care unit, appears comfortable, cooperative, no apparent acute distress. The patient is currently on 3 L O2 nasal cannula HEENT: Neck is supple, no JVD, no lymphadenopathy. RESPIRATORY: Lungs sounds essentially clear throughout, diminished to his bilateral bases and few scattered crackles to his bilateral bases. Respirations are symmetrical and nonlabored. CARDIOVASCULAR: Regular rhythm and rate. S1 and S2 present, negative for S3, or gallop, soft systolic murmur heard best to his left sternal border. Sternum is stable. Palpable peripheral pulses bilaterally, +1 edema to his bilateral lower extremities. No calf pain or tenderness noted. Heart hugger in place with patient demonstrating appropriate use. Knee-high RAFAEL hose and sequential compression devices in place to his bilateral lower extremities. Bedside telemetry showing normal sinus rhythm with heart rate 81 BPM. GASTROINTESTINAL: Abdomen soft, nontender, nondistended. Active bowel sounds present 4 quadrants. Tolerating diet. Passing flatus. No guarding or rigidity. n GENITOURINARY: Within normal limits INTEGUMENTARY: Skin is warm and dry with no evidence of clubbing or cyanosis. Midline sternal incision clean dry and well approximated, covered with dry intact dressing. Bilateral lower extremity EVH sites well approximated without redness or drainage. Stage II to III decubitus ulcer present to his buttocks covered with optifoam. MUSKULOSKELETAL: Able to move all extremities, strength equal bilaterally, generalized weakness. PSYCHIATRIC: Alert and oriented to person place and time, appropriate affect, intact judgment and insight. - Labs CBC & Chem 7: 05/17/22 05:29 05/17/22 05:29 Labs: Abnormal Lab Results - Last 24 Hours (Table) 05/16/22 05/16/22 05/17/22 Range/Units 11:13 20:02 05:29 RBC (4.30-5.90) m/uL Hgb (13.0-17.5) gm/dL Hct (39.0-53.0) % MCHC (31.0-37.0) g/dL RDW (11.5-15.5) % Chloride 108 H (98-107) mmol/L BUN 28 H (9-20) mg/dL POC Glucose (mg/dL) 199 H 256 H (70-110) mg/dL Calcium 7.4 L (8.4-10.2) mg/dL 05/17/22 Range/Units 05:29 RBC 2.42 L (4.30-5.90) m/uL Hgb 7.2 L (13.0-17.5) gm/dL Hct 23.4 L (39.0-53.0) % MCHC 30.6 L (31.0-37.0) g/dL RDW 17.2 H (11.5-15.5) % Chloride (98-107) mmol/L BUN (9-20) mg/dL POC Glucose (mg/dL) (70-110) mg/dL Calcium (8.4-10.2) mg/dL Microbiology - Last 24 Hours (Table) 05/16/22 09:15 Stool Culture - Preliminary Stool Assessment and Plan Plan: Severe mitral valve regurgitation, status post mitral valve repair, postoperative day # 28, continues to recover. He is slow in his recovery. The patient is still on oxygen at 3 L/m nasal cannula. He is overall weak. His course was further, care by episodes of GI bleed. Coronary artery disease, previous PCI, previous non-STEMI, status post CABG 3, postop day # 28 History of paroxysmal atrial fibrillation, previous cardioversion, on [facility] outpatient for anticoagulation, status post modified Castanon maze and ligation of left atrial appendage, postop day #28, he is currently in sinus rhythm and the patient is currently off anticoagulants. Patent foramen ovale, status post closure, postop day #28 Small bilateral pleural effusions left more than right, post thoracotomy Atrial fibrillation, expected outcome of surgery and the patient is back to normal sinus rhythm. Chronic systolic congestive heart failure, ischemic cardiomyopathy with EF 40- 45% Acute on chronic drop in hemoglobin/anemia with a component of an upper GI bleed secondary to AV malformation in portion of the duodenum and the patient also had a nonbleeding ulcers and a stomach. I don't plasma treatment was applied and the bleeding stopped and the patient has adequate hemostasis for now. 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 History of hypertension History hyperlipidemia, treated, cholesterol 150, LDL 72 Right internal carotid stenosis 50-79% Previous Anemia with history of GI bleed in November 2021 S/P transfusion PRBCs Acute on chronic renal failure, the creatinine is stable currently down to normal Diabetes mellitus type 2, preoperative hemoglobin A1c 5.6% currently Levemir insulin 8 units along with a sliding scale coverage Osteoarthritis Severe COPD, preoperative FEV1 41% of predicted Chronic ongoing nicotine dependence Remote history of pneumonia Chronic low back pain, hearing disorder Nasal swab positive for MSSA preoperative Postoperative acute blood loss anemia, expected Elevated transaminases, most likely due to shock liver and the significant elevation of the ALT and AST which are being monitored, and the level is also improving and there is a decline and LFTs Protamine reaction intraoperative decubitus ulcer stage 2, post wound debridement left-sided pleural effusion post thoracentesis of the left Left lung removal of 800 mL of pleural fluid. Plan: No major changes condition the patient is slow in his recovery. Continues to diurese. We are still watching for any signs of GI bleeding. Hemoglobin stable for now. Monitor hemoglobin EGD done yesterday was noted Continue Bumex 2 mg on a daily basis IV Monitor hemoglobin and watch for any signs of GI bleeding Continue aspirin continue metoprolol 25 mg twice a day continue wound care Continue Zosyn and daptomycin Continue using incentive spirometer Increase mobility Continue supportive care
--- NOTE | 2022-05-17 08:19 | XR ---
EXAMINATION TYPE: XR chest 2V DATE OF EXAM: 05/17/2022 6:25 AM COMPARISON: Chest radiograph from one day prior. TECHNIQUE: XR chest 2V Frontal and lateral views of the chest. CLINICAL INDICATION:Male, 72 years old with history of postoperative cardiac surgery; FINDINGS: Lungs/Pleura: No evidence of focal consolidation or pneumothorax. Blunting of the costophrenic angles is present. Pulmonary vascularity: Pulmonary vascular congestion. Heart/mediastinum: Cardiomediastinal silhouette is enlarged and stable. Post valve repair changes. Musculoskeletal: No acute osseous pathology. Midline sternotomy wires are noted. IMPRESSION: Cardiomegaly, pulmonary vascular congestion and bilateral pleural effusions. Correlate with BNP for c ongestive heart failure.
--- NOTE | 2022-05-17 08:39 | P.PN ---
Subjective Progress Note Date: 05/17/22 PROGRESS NOTE The patient is a 72-year-old male with a known history of CAD, atrial fibrillation, coronary disease and mitral valve disease who underwent CABG with SVG to the diagonal branch, obtuse marginal branch and PDA, mitral valve repair with closure of PFO and modified Castanon procedure with ligation of the left atrial appendage, performed by Dr. Raines on April 19. His postoperative course has been complicated by recurrent bleeding, requiring multiple transfusion, dyspnea and fatigue. He continues to feel weak and dyspneic although slightly better. He is scheduled to be seen by Dr. Ramos today for further evaluation of his GI status. He denies any chest discomfort, dizziness or palpitations. His urinary output has been stable. He has not been anticoagulated because of the recurrent GI bleeding. Hemodynamically he is stable. He denies any nausea or vomiting. His chest x-ray shows mild congestion. May 15: The patient continues to be in sinus mechanism. He feels tired but he denies any chest discomfort, dizziness or palpitations. He is more anemic today and is scheduled to undergo transfusion and workup by the GI service including upper and lower endoscopy according to him. He denies any nausea or vomiting. Hemodynamically he has been stable. May 16: The patient feels better, his breathing is better. He underwent endoscopy yesterday with clipping of an AV malformation. He continues to be in sinus mechanism. He denies any chest discomfort, dizziness or palpitations. He continues to feel weak. His blood pressure is stable. He has no nausea or vomi ting. May 17: He feels and looks better today, he denies any chest discomfort. His breathing is stable. He denies any dizziness or palpitations. He is in atrial fibrillation this morning. He denies any nausea or vomiting. He continues to feel fatigued when he walks some dyspnea but better overall. His appetite is stable. Medications: Aspirin 81 mg daily, Bumex 2 mg IV daily, metoprolol 25 mg twice a day, Flomax once a day, Farxiga 10 mg qd, Lipitor 20 mg daily, lisinopril 2.5 milligrams daily PHYSICAL EXAMINATION: Blood pressure 101/50 heart rate 75 LUNGS: Clear to auscultation HEART: Irregular rate and rhythm, S1, S2. No S3. systolic murmur at the base ABDOMEN: Soft, nontender, no organomegaly EXTREMETIES: 1+ edema LAB: Hemoglobin 7.2, BUN 28, creatinine 1.09 IMPRESSION: 1. Status post CABG with mitral valve repair and closure of left atrial appendage 2. Recurrent anemia with GI bleeding, status post clipping, stable 3. History of paroxysmal atrial fibrillation, back in atrial fibrillation 4. History of COPD 5. Physical deconditioning post surgery 6. History of hyperlipidemia PLAN: 1. Restart anticoagulation if it is okay with GI service 2. Follow hemoglobin 3. Increase physical activity 4. Evaluate for inpatient rehab Objective - Vital Signs Vital signs: Vital Signs Temp 98.2 F 05/17/22 04:00 Pulse 79 05/17/22 07:00 Resp 24 05/17/22 07:00 BP 101/54 05/17/22 07:00 Pulse Ox 97 05/17/22 07:00 FiO2 100 04/22/22 16:00 Intake & Output 05/16/22 05/17/22 05/17/22 18:59 06:59 18:59 Intake Total 1120 100 Output Total 1375 701 1 Balance -255 -601 -1 Weight 91 kg Intake: IV 300 100 Piperacillin-Tazobactam 3 200 100 .375 gm In Sodium Chloride 0.9% 100 ml @ 25 mls/hr IVPB Q8HR [facility] Rx# :[id number] Sodium Ferric Gluconat- 100 Sucrose 125 mg In Sodium Chloride 0.9% 100 ml @ 100 mls/hr IVPB DAILY [facility] Rx#:[id number] Oral 820 0 Output: Urine 1375 700 Stool 1 1 Other: Voiding Method Urinal Urinal # Voids 0 1 # Bowel Movements 1 ABP, PAP, CO, CI - Last Documented Arterial Blood Pressure 137/47 Pulmonary Artery Pressure 67/18 Cardiac Output 5.8 Cardiac Index 2.8 - Labs CBC & Chem 7: 05/17/22 05:29 05/17/22 05:29 Labs: Abnormal Lab Results - Last 24 Hours (Table) 05/16/22 05/16/22 05/17/22 Range/Units 11:13 20:02 05:29 RBC (4.30-5.90) m/uL Hgb (13.0-17.5) gm/dL Hct (39.0-53.0) % MCHC (31.0-37.0) g/dL RDW (11.5-15.5) % Chloride 108 H (98-107) mmol/L BUN 28 H (9-20) mg/dL POC Glucose (mg/dL) 199 H 256 H (70-110) mg/dL Calcium 7.4 L (8.4-10.2) mg/dL 05/17/22 Range/Units 05:29 RBC 2.42 L (4.30-5.90) m/uL Hgb 7.2 L (13.0-17.5) gm/dL Hct 23.4 L (39.0-53.0) % MCHC 30.6 L (31.0-37.0) g/dL RDW 17.2 H (11.5-15.5) % Chloride (98-107) mmol/L BUN (9-20) mg/dL POC Glucose (mg/dL) (70-110) mg/dL Calcium (8.4-10.2) mg/dL Microbiology - Last 24 Hours (Table) 05/16/22 09:15 Stool Culture - Preliminary Stool
[2022-05-17] MEDS: SYMBICORT 160-4.5 MCG INHALER INHALATION SCH ×2 (09:19→21:30)
[2022-05-17] MEDS: IPRATROPIUM-ALBUTEROL 3 ML NEB INHALATION SCH ×4 (09:19→21:29)
--- NOTE | 2022-05-17 09:35 | CDI ---
Documentation Clarification Form Date: 05/17/2022 09:18:34 AM From: Marsha Sainz CCS, CCDS Admit Date: 04/19/2022 05:43:00 AM Patient Name: Derek Araiza Visit Number: [id number] Discharge Date: ATTENTION: The Clinical Documentation Specialists (CDI) and [facility] Coding Staff appreciate your assistance in clarifying documentation. Please respond to the clarification below the line at the bottom and electronically sign. The CDI & [facility] Coding staff will review the response and follow-up if needed. Please note: Queries are made part of the Legal Health Record. If you have any questions, please contact the author of this message via ITS. Dr. Hai Raines: Conflicting documentation has been found in the medical record regarding the stage of the Decubitus Buttock or Sacral Ulcer. As the attending physician, please provide clarification. Per the 05/02 Infectious Disease Consult: patient with a leukocytosis in this patient who is postop day #13 mitral valve repair and CABG x3, patient did not have any fever during this hospital stay and the white count has been slowly creeping up over the last 5 days source possible cath versus UTI versus his sacral pressure ulcer, patient started as well as vein grafting sites looks clean without evidence of any cellulitis, he did have a thoracocentesis with fluid does not look infected. Per the 05/16 Attending Physician Progress Note: Stage II-III Decubitus to his buttocks status post surgical debridement. documentation. Per the 05/15 Pulmonary/Critical Care Progress Note: Decubitus Ulcer Stage 2. Per the 05/08 Procedure Note Post Operative Diagnosis: Sacral Decubitus Ulcer with Abscess. History/Risk Factors per the Medical Management Consult: CAD status post TX, Heart catheterization with stent, Mitral Valve Disease, DM II, Paroxysmal Atrial Fibrillation, CKD II, COPD and Hyperlipidemia. Clinical Indicators: Presented 04/19 for an Elective Mitral Valve Repair and CABG x3. 05/08 Procedure: I&D and debridement of sacral decubitus ulcer. Treatment: Procedures as above. 05/02 ID consult. 05/04 Wound care: Absorptive silver moisten & sacral foam dressing. Please clarify which diagnosis is most appropriate: [ x ] Sacral Decubitus Ulcer Stage II [ ] Sacral Decubitus Ulcer Stage III [ ] Other (please specify) [ ] Unable to determine (Template Last Revised: August 2020) MTDD
[2022-05-17] MEDS: METOPROLOL TARTRATE 25 MG TAB PO SCH ×2 (10:03→20:45)
[2022-05-17] MEDS: FERROUS SULFATE 325 MG TAB PO SCH ×2 (10:08→16:27)
[2022-05-17] MEDS: TAMSULOSIN 0.4 MG CAP.ER.24H PO SCH (10:08)
[2022-05-17] MEDS: BUMETANIDE 0.25 MG/ML 10 ML VIAL IV SCH (10:09)
[2022-05-17] MEDS: ATORVASTATIN 20 MG TAB PO SCH (10:09)
[2022-05-17] MEDS: ASCORBIC ACID 500 MG TAB PO SCH (10:09)
[2022-05-17] MEDS: ASPIRIN 81 MG PO SCH (10:09)
[2022-05-17] MEDS: DAPAGLIFLOZIN PROPANEDIOL 10 MG TABLET PO SCH (10:09)
[2022-05-17] MEDS: LIDOCAINE 5% PATCH TOPICAL SCH (10:10)
[2022-05-17] MEDS: POTASSIUM CHLORIDE ER 10 MEQ TAB.ER.PRT PO SCH (10:10)
[2022-05-17] MEDS: guaiFENesin-DM 600/30MG 1 EACH TAB.ER.12H PO SCH ×2 (10:10→20:44)
[2022-05-17] MEDS: NON FORMULARY DRUG SQ SCH ×2 (10:10→12:41)
[2022-05-17] MEDS: PANTOPRAZOLE 40 MG/10 ML VIAL IVP SCH ×2 (10:10→20:44)
[2022-05-17] MEDS: BENZOCAINE/MENTHOL LOZENG 1 EACH LOZENGE MUCOUS MEM PRN ×2 (10:11→21:09)
[2022-05-17] MEDS: APIXABAN 5 MG TAB PO SCH ×2 (11:02→20:44)
[2022-05-17] MEDS: ACETAMINOPHEN TAB 325 MG TAB PO PRN (11:04)
--- NOTE | 2022-05-17 11:34 | P.PN ---
Subjective Progress Note Date: 05/17/22 Principal diagnosis: Severe mitral valve regurgitation, coronary artery disease, paroxysmal atrial fibrillation, patent foramen ovale, tricuspid regurgitation, chronic systolic congestive heart failure. Past medical history significant for hypertension, hyperlipidemia, coronary artery disease with history of previous PCI, non-ST elevated myocardial infarction in November 2021, ischemic cardiomyopathy with EF 40- 45%, right internal carotid stenosis 50-79%, renal insufficiency, anemia with history of GI bleed in November 2021 S/P transfusion PRBCs, diabetes mellitus type 2, osteoarthritis, severe COPD, chronic ongoing nicotine dependence, remote history of pneumonia, chronic low back pain and hearing disorder. Nasal swab positive for MSSA preoperative POD #28 Mitral valve repair with 28 mm physio-2 ring, CABG 3 with saphenous vein grafts to first diagonal, obtuse marginal, posterior descending coronary arteries, closure of PFO, endovascular vein harvest, modified Castanon maze procedure with full left-sided lesion set and ligation of the left atrial appendage, SCOTT by anesthesia. Protamine reaction intraoperative Postoperative acute blood loss anemia, expected given his history of anemia, hemodilution and cardiopulmonary bypass Acute on chronic kidney failure, likely from hypotension from intraoperative protamine reaction Elevated transaminases, likely from hypotension from intraoperative protamine reaction Left pleural effusion, status post left-sided thoracentesis with removal of [address] Aguilar on 04/30/22 and again on 05/04/22 for 550 mL fluid Leukocytosis, afebrile, CRP and pro-calcitonin trending down, sputum culture negative, no pneumonia, repeat sputum culture positive for aisha and Aspergillus no UTI, blood culture preliminary negative, likely due to sacral stage II ulcer The patient was seen and examined in follow-up today at his bedside in the intensive care unit. He is sitting up to the bedside chair, he is awake, alert, oriented 3 and is in no acute apparent distress. He reports he continues to feel better daily, still has some complaints of shortness of breath with activity and he is complaining of some continued pain to his sacral wound. He remains hemodynamically stable and currently on no inotropic pressor support. Oxygen saturations are 98% on 3 L nasal cannula and he is achieving 1000 mL on her incentive spirometry. Bedside telemetry showing normal sinus rhythm heart rate 77 BPM. No further reports of atrial fibrillation. He remains on metoprolol tartrate 25 mg by mouth twice a day and was also started on lisinopril 2.5 mg by mouth daily by cardiology. Chest x-ray was reviewed. Laboratory results this morning show a WBC count of 5.4, hemoglobin 7.2, hematocrit 23.4, platelets 232, sodium 137, potassium 4.0, BUN 28, creatinine 1.09, glucose 81, and calcium 7.4. He has been up ambulating in the intensive care unit hallway with assistance from nursing and therapy staff and tolerating well. He continues to void and remains on Bumex 2 mg IV daily with 300 mL of urine output recorded in the last 8 hours. The patient is still complaining of some loose stools, although his stool for C. diff has been negative. He remains on Zosyn for antibiotic coverage managed by infectious disease and his daptomycin was discontinued yesterday. Objective - Vital Signs Vital signs: Vital Signs Temp 98.2 F 05/17/22 04:00 Pulse 75 05/17/22 09:34 Resp 24 05/17/22 07:00 BP 101/54 05/17/22 07:00 Pulse Ox 97 05/17/22 07:00 FiO2 100 04/22/22 16:00 Intake & Output 05/16/22 05/17/22 05/17/22 18:59 06:59 18:59 Intake Total 1120 100 Output Total 1375 701 1 Balance -255 -601 -1 Weight 91 kg Intake: IV 300 100 Piperacillin-Tazobactam 3 200 100 .375 gm In Sodium Chloride 0.9% 100 ml @ 25 mls/hr IVPB Q8HR ZULMA Rx# :[id number] Sodium Ferric Gluconat- 100 Sucrose 125 mg In Sodium Chloride 0.9% 100 ml @ 100 mls/hr IVPB DAILY ZULMA Rx#:[id number] Oral 820 0 Output: Urine 1375 700 Stool 1 1 Other: Voiding Method Urinal Urinal # Voids 0 1 # Bowel Movements 1 ABP, PAP, CO, CI - Last Documented Arterial Blood Pressure 137/47 Pulmonary Artery Pressure 67/18 Cardiac Output 5.8 Cardiac Index 2.8 - Exam CONSTITUTIONAL: Sitting up to the bedside chair in the intensive care unit, appears comfortable, cooperative, no apparent acute distress. HEENT: Neck is supple, no JVD, no lymphadenopathy. RESPIRATORY: Lungs sounds essentially clear throughout, diminished to his bilateral bases. Respirations are symmetrical and nonlabored. Currently 3 L nasal cannula with oxygen saturations 98%. Able to achieve 1000 mL on his incentive spirometry. Strong cough. CARDIOVASCULAR: Regular rhythm and rate. S1 and S2 present, negative for S3, or gallop, soft systolic murmur heard best to his left sternal border. Sternum is stable. Palpable peripheral pulses bilaterally, +1 edema to his bilateral lower extremities. No calf pain or tenderness noted. Heart hugger in place with patient demonstrating appropriate use. Knee-high RAFAEL hose and sequential compression devices in place to his bilateral lower extremities. Bedside telemetry showing normal sinus rhythm with heart rate 77 BPM. GASTROINTESTINAL: Abdomen soft, nontender, nondistended. Active bowel sounds present 4 quadrants. Tolerating diet. Passing flatus. No guarding or rigidity. Bowel movement this a.m., continues to be loose. No nausea, or vomiting. GENITOURINARY: Continues to void. 300 mL of urine output in the last 8 hours. INTEGUMENTARY: Skin is warm and dry with no evidence of clubbing or cyanosis. Midline sternal incision clean dry and well approximated, covered with dry intact dressing. Bilateral lower extremity EVH sites well approximated without redness or drainage. Stage II to III decubitus ulcer present to his buttocks covered with ABD. MUSKULOSKELETAL: Able to move all extremities, strength equal bilaterally, generalized weakness. PSYCHIATRIC: Alert and oriented to person place and time, appropriate affect, intact judgment and insight. - Labs CBC & Chem 7: 05/17/22 05:29 05/17/22 05:29 Labs: Abnormal Lab Results - Last 24 Hours (Table) 05/16/22 05/16/22 05/17/22 Range/Units 11:13 20:02 05:29 RBC (4.30-5.90) m/uL Hgb (13.0-17.5) gm/dL Hct (39.0-53.0) % MCHC (31.0-37.0) g/dL RDW (11.5-15.5) % Chloride 108 H (98-107) mmol/L BUN 28 H (9-20) mg/dL POC Glucose (mg/dL) 199 H 256 H (70-110) mg/dL Calcium 7.4 L (8.4-10.2) mg/dL 05/17/22 Range/Units 05:29 RBC 2.42 L (4.30-5.90) m/uL Hgb 7.2 L (13.0-17.5) gm/dL Hct 23.4 L (39.0-53.0) % MCHC 30.6 L (31.0-37.0) g/dL RDW 17.2 H (11.5-15.5) % Chloride (98-107) mmol/L BUN (9-20) mg/dL POC Glucose (mg/dL) (70-110) mg/dL Calcium (8.4-10.2) mg/dL Microbiology - Last 24 Hours (Table) 05/16/22 09:15 Stool Culture - Preliminary Stool - Imaging and Cardiology Chest x-ray: report reviewed, image reviewed Assessment and Plan Assessment: 1. Severe mitral valve regurgitation, status post mitral valve repair 2. Coronary artery disease, previous PCI, previous non-STEMI, status post CABG 3 3. History of paroxysmal atrial fibrillation, previous cardioversion, on [facility] outpatient for anticoagulation, status post modified Castanon maze and ligation of left atrial appendage, currently in normal sinus rhythm 4. Patent foramen ovale, status post closure 5. Tricuspid regurgitation 6. Chronic diastolic congestive heart failure, ischemic cardiomyopathy with EF 40-45% 7. History of hypertension 8. History hyperlipidemia, treated, cholesterol 150, LDL 72 9. Right internal carotid stenosis 50-79% 10. Anemia with history of GI bleed in November 2021 S/P transfusion PRBCs 11. Acute on chronic renal failure, baseline creatinine 1.2-1.6 12. Diabetes mellitus type 2, preoperative hemoglobin A1c 5.6% 13. Osteoarthritis 14. Severe COPD, preoperative FEV1 41% of predicted 15. Chronic ongoing nicotine dependence 16. Remote history of pneumonia 17. Chronic low back pain 18. Hearing disorder 19. Nasal swab positive for MSSA preoperative 20. Postoperative acute blood loss anemia, expected 21. Elevated transaminases, continue to trend downward 22. Protamine reaction intraoperative 23. Medical debility, generalized weakness 24. Stage II-III decubitus to his buttocks, status post surgical debridement 25. Small left-sided pleural effusion, status post left-sided thoracentesis on 04/30/2022, and on 05/07/2022 26. Urinary retention possibly secondary to constipation, resolved Plan: 1. Continue low-dose aspirin, and beta siomara. We will increase his metoprolol tartrate as tolerated. 2. Encourage incentive spirometry 10 times every hour while awake. Bronchodilators per pulmonology/critical care management. 3. Wound care Medihoney ordered for treatment for the patient's decubitus, managed by Dr. Chen from infectious disease. Antibiotic management per infectious disease recommendations currently on Zosyn and daptomycin. 4. Will monitor daily labs and chest x-rays. Electrolyte replacement per protocol. Avoid hepatotoxic and nephrotoxic medications. 5. Increase activity, ambulate as tolerated. PT/OT/cardiac rehab following. Needs much encouragement with ambulation. 6. Insulin management per primary care service. Patient is a diabetic with a preoperative hemoglobin A1c of 5.6% on multiple oral medications, needs tight blood sugar control. 7. GI/DVT prophylaxis. Continue Protonix 40 mg IVP twice a day. 8. Continue Flomax and continue to record strict accurate I's and O's. 9. Pain control with current medication regimen. 10. Daily weights. 11. Shower daily. 12. Importance of risk modification including smoking cessation counseling and education provided to patient and family. 13. Discharged to inpatient extended-care facility subacute rehab within the next 24 hours. Per infectious disease will require one 7 days of continued IV antibiotics. 14. Continue Bumex 2 mg IV daily. 15. Restart Eliquis 5 mg by mouth twice a day today, okay per gastroenterology. 16. Start ferrous sulfate 324 mg by mouth twice a day with meals. 17. More recommendations to follow based on patient's clinical course. Time with Patient: Greater than 30
--- NOTE | 2022-05-17 11:35 | P.PN ---
Subjective Progress Note Date: 05/17/22 Principal diagnosis: GI bleed This is a pleasant 72-year-old male with multiple comorbidities including mitral regurgitation, coronary artery disease, proximal atrial fibrillation, osteoarthritis, diabetes mellitus, hyperlipidemia, chronic tobacco dependence, infected sacral wound, and chronic anemia who underwent elective mitral valve repair, coronary bypass grafting 3, closure of PFO, modified Maze procedure in litigation a left atrial appendage. Since being in the hospital he was noted to have significant anemia. He had been reporting black stools. He was on Eliquis , however reportedly was stopped about a week ago. He had then been on a full dose aspirin which again since he had continued anemia was changed to a low dose 81 mg aspirin. Patient denies any previous history of long-term NSAID use. States he takes Tylenol at home for pain. Patient did have a history of a GI bleed in November of this year and underwent EGD done at [facility] which showed a small oozing AVM in the second portion of the duodenum with epinephrine administration and Lip placement 1. As well as 4 antral ulcers and small hiatal hernia. There recommendation was to repeat EGD in 2-3 months. Patient states had a repeat EGD done with Dr. Ramos in the last couple months done at [facility], which report is unavailable at this time. Prior to that he had a colonoscopy done on 02/16/[address] Malave which was significant for colon polyps status post polypectomy. During this hospitalization he was seen by general surgery, Dr. Cardenas performed an EGD on 05/08/2022 with findings of duodenitis, distal esophagitis and fresh blood in the third/fourth portion of the duodenum, no visible AVM. During this hospitalization the patient has received 9 units of red blood cells, 2 units of FFP and 1 unit of platelets. Yesterday he had a hemoglobin 7.2, he was given 1 unit of blood with a repeat hemoglobin today of 7.2. States his last bowel movement was yesterday and still dark, formed. He is denying any abdominal pain, nausea or vomiting. 05/16/2022. Patient was seen and examined in the ICU sitting up in the bedside chair. He is status post EGD yesterday with one actively bleeding duodenal AVM in the second and third part of the duodenum status post argon plasma coagulation followed by Endo Clip placement with good hemostasis as well as 2 small gastric AVMs with no active bleeding status post coagulation with argon plasma. Today's repeat hemoglobin is stable at 7.2. Patient states he is having diarrhea since his surgery, however yesterday evening he had multiple and was up throughout the night. He is denying any abdominal pain nausea or vomiting associated. Patient has been on antibiotics during this hospitalization, will order a C. diff stool studies. 05/17/2022. Patient seen and examined the follow-up in the ICU. Notified this morning patient back in atrial fibrillation. Hemoglobin stable at 7.2.he denies any abdominal pain, nausea or vomiting. Diarrhea improving some, he only went twice this morning. C. diff was negative. he states stool becoming more formed. Objective - Vital Signs Vital signs: Vital Signs Temp 98.2 F 05/17/22 04:00 Pulse 75 05/17/22 09:34 Resp 24 05/17/22 07:00 BP 101/54 05/17/22 07:00 Pulse Ox 97 05/17/22 07:00 FiO2 100 04/22/22 16:00 Intake & Output 05/16/22 05/17/22 05/17/22 18:59 06:59 18:59 Intake Total 1120 100 Output Total 1375 701 1 Balance -255 -601 -1 Weight 91 kg Intake: IV 300 100 Piperacillin-Tazobactam 3 200 100 .375 gm In Sodium Chloride 0.9% 100 ml @ 25 mls/hr IVPB Q8HR ZULMA Rx# :[id number] Sodium Ferric Gluconat- 100 Sucrose 125 mg In Sodium Chloride 0.9% 100 ml @ 100 mls/hr IVPB DAILY ZULMA Rx#:[id number] Oral 820 0 Output: Urine 1375 700 Stool 1 1 Other: Voiding Method Urinal Urinal # Voids 0 1 # Bowel Movements 1 ABP, PAP, CO, CI - Last Documented Arterial Blood Pressure 137/47 Pulmonary Artery Pressure 67/18 Cardiac Output 5.8 Cardiac Index 2.8 - Exam General appearance: The patient is alert, oriented, appears in no acute distress. HET: Head is normocephalic and atraumatic. Conjunctiva pink. Sclera anicteric. Neck: Supple without lymphadenopathy. Abdomen: Soft, nontender, nondistended with bowel sounds. No guarding or rigidity. Extremities: Normal skin color and turgor. No pedal edema Skin: No rashes, no jaundice Neurological: No focal deficits. Alert and oriented. - Labs CBC & Chem 7: 05/17/22 05:29 05/17/22 05:29 Labs: Abnormal Lab Results - Last 24 Hours (Table) 05/16/22 05/17/22 05/17/22 Range/Units 20:02 05:29 05:29 RBC 2.42 L (4.30-5.90) m/uL Hgb 7.2 L (13.0-17.5) gm/dL Hct 23.4 L (39.0-53.0) % MCHC 30.6 L (31.0-37.0) g/dL RDW 17.2 H (11.5-15.5) % Chloride 108 H (98-107) mmol/L BUN 28 H (9-20) mg/dL POC Glucose (mg/dL) 256 H (70-110) mg/dL Calcium 7.4 L (8.4-10.2) mg/dL Microbiology - Last 24 Hours (Table) 05/16/22 09:15 Stool Culture - Preliminary Stool Assessment and Plan (1) Upper GI bleed Narrative/Plan: Knee 2-year-old male who came in for elective cardiovascular surgery who underwent CABG, mitral valve repair on 04/19/2022 who has still been admitted to the ICU with notable anemia. Patient has had several transfusions during this hospitalization including 9 RBC, 2 FFP and 1 platelet. Patient has a history of chronic anemia and states he's been on iron at home and was having some dark stools however he didn't start having black stools until he was here in the hospital. He did undergo EGD on 05/08/[address] Cardenas with fresh blood seen in the third and fourth part of the duodenum but no visible AVMs reported. Otherwise patient had duodenitis and mild distal esophagitis. Patient continues to have low hemoglobin with concerns for continued upper GI bleed. Patient also has a history of known AVMs which were treated at [facility] in November of this year, also noted on report was for antral ulcers. Possible etiologies include bleeding AVM, bleeding ulcer or other possible etiologies. Plan for repeat upper EGD tomorrow with possible small bowel capsule endoscopy. He is status post EGD yesterday with one actively bleeding duodenal AVM in the second and third part of the duodenum status post argon plasma coagulation followed by Endo Clip placement with good hemostasis as well as 2 small gastric AVMs with no active bleeding status post coagulation with argon plasma. Current Visit: Yes Status: Acute Code(s): K92.2 - GASTROINTESTINAL HEMORRHAGE, UNSPECIFIED SNOMED Code(s): 12285360 (2) Normocytic normochromic anemia Current Visit: Yes Status: Acute Code(s): D64.9 - ANEMIA, UNSPECIFIED SNOMED Code(s): 94904138 (3) Diarrhea Narrative/Plan: Unclear etiology at this time however patient has been on antibiotics during this hospitalization. Will order stool studies including C. diff and stool culture. Current Visit: Yes Status: Acute Code(s): R19.7 - DIARRHEA, UNSPECIFIED SNOMED Code(s): 96213624 Plan: 1. Continue symptomatic and supportive care 2. Continue ICU management 3. C. diff and stool cultures ordered 4. Diet as tolerated 5. Daily CBC, transfuse for hemoglobin less than 7 6. Patient is status post EGD with findings of actively bleeding duodenal AVM as well as 2 small gastric AVMs nonbleeding both treated. 7. May resume anticoagulation 8. Patient is cleared from gastroenterology for discharge Thank you for this consultation, we will continue to follow. Dr. Michelle Ramos I agree with the dictator's note, documented as a scribe by Radha Moody.
[2022-05-17 11:41] LABS: Glucose,Whole Blood 196 mg/dL (70-110)
--- NOTE | 2022-05-17 14:59 | P.PN ---
Progress Note - Text Progress Note Date: 05/17/22 Patient is a pleasant 72-year-old male came in the for elective mitral valve repair, CABG x 3 vessel, maze procedure, PFO closure. Patient is extubated sitting in the chair patient still has a Warren-Varghese catheter, CVP of around 12, cardiac index 3.1 patient creatinine went up to 1.70 resulting elevated potassium of 5.5 patient is off pressor support, off nitro drip patient still has 2 mediastinal and one left-sided chest tube. 04/21/2022 Patient is evaluated in ICU today, sitting up in chair. He is postoperative day #2 for elective mitral valve repair, hematocrit bypass grafting maze procedure and PFO closure. He is on BiPAP with fio2 of 40% Continues with mediastinal/left pleural chest tubes. Continue with indwelling catheter. Received dose of IV albumin yesterday afternoon. Chest xray today showing ongoing mild pulmonary vascular congestion, increasing patchy bibasilar opacities, atelectasis vs. pulmonary edema. Currently on lasix gtt at 10mls/hr, continues on dopamine gtt at 3.68 mls/hr. Continues on insulin gtt and blood glucose remains in the 140 to 130s. Labs today showing sodium 132, potassium 6.1 improved to 5.4, BUN 41, creatinine 2.53, elevated liver enzymes. Hgb 7.3. 04/22/2022 Patient continues to be monitored closely in intensive care unit, he is postoperative day #3 for elective mitral valve repair, maze procedure, PFO closure. Managed by primary team. He had limited echocardiogram completed showing EF 45 to 50%, mild to moderate MR, moderate pulmonary hypertension with moderate TR. Chest xray today shows slight improvement in pulmonary vascular congestion. Maintained on lasix gtt at 10mls/hr, dopamine gtt, Continues with 2 mediastinal chest tubes. Continues with indwelling catheter. Continues with right IJ swan/cordis, right radial arterial line. He has been weaned off BiPAP currently on high flow cannula at 15L. He has been tolerating some diet. Continues on insulin gtt which will continue until his diet stabilizes. Current glucose in the 140s. Creatinine today 3.14. April 23: I assumed care of patient today from [facility]. ICU. In a recliner. Tired. Little oral intake. Nasal cannula. Drips include IV dopamine and Lasix. Some shortness of breath. Mooney catheter. 04/24/2022: ICU. Up. 4 L nasal cannula. Did eat better. Edema present. On the Lasix drip 5 mg an hour. Some improvement in creatinine. 04/25/2022: ICU. Up in a recliner. Eating better. at the bedside. Edema present. Off Lasix drip. Feeling better. Creatinine coming down. LFTs improving. Home dose of Victoza was started 04/26/2022: ICU. Up in a recliner. 4 L nasal cannula. Eating about 50%. Accu-Cheks noted. 04/27/2022: ICU: Patient went into atrial fibrillation overnight. Put on oral amiodarone and Lopressor per CTS.. Some worsening of shortness of breath. Placed on IV Lasix. Eating some. Up in a recliner. 04/28/2022: ICU. Patient received Lopressor today for the A. fib. Patient went down into sinus rhythm. Blood pressure also dropped her was 70 systolic. Oxygen increased to 4 L. Short of breath. Patient did walk 10-12 steps up to the door. Eating fair. Lower extremity edema edema present. Up in a chair. Tired. 04/29/2022: ICU. Short of breath. 3 L nasal cannula. Eating fair. Edema pre sent. Getting Bumex. Getting IV albumin and IV calcium. Using incentive spirometry. Up in a chair. Discussed with at the bedside. Increasing white count, infiltrated urine chest x-ray suggestive of pneumonia. Started on IV cefepime 04/30/2022: ICU. Remains short of breath. 3 L nasal cannula. Started on IV cefepime yesterday.. Oral intake fair. Edema present. Remains on Bumex. Fo sher catheter. Discussed with patient and at the bedside. Discussed with Dr. Cortez from cardiothoracic surgery. 05/01/2022: ICU. Zaroxolyn was added. Good diuresis. Breathing better. On IV cefepime. Left paracentesis is done. 850 mL removed. Oral intake fair. Breathing a bit better. Telemetry shows sinus rhythm. 2 L nasal cannula. at the bedside. Will DC Actos. Even though smaller dose. Given CHF renal failure. Increase Lantus to 12 units. 05/02/2022: ICU. Over 3 is a negative fluid balance. Last 24 hours. Some improvement in breathing. Oral intake fair. Remains in atrial fibrillation controlled. 2 L nasal cannula. Add Diamox. 4 metabolic alkalosis 05/03/2022: ICU. This morning patient became short of breath. Dr. Chen from [place] consulted for sacral decub. Remains on IV cefepime. Oral intake fair. Had a BM. On IV Bumex. I discussed with Dr. Aguilar from pulmonary. Patient is known to him. Advanced COPD. His right lung changes are chronic. Has had previous CAT scans. He may have had a located effusion. 05/04/2022: ICU. Breathing a bit better. Hemoglobin dropped to 6.1. Awaiting transfusion. Tolerating diet. On IV cefepime. Patient started on IV eraxis by Dr. Prescott from [place]. 05 May 2022: ICU. Patient received a unit of blood yesterday evening. Getting another unit of blood today. Breathing better. Remains on IV Bumex. IV cefepime discontinued. Remains on IV Eraxis. Oral intake fair. Up in a chair. at the bedside. Increase Levemir to 20 units at night. 05/06/2022: ICU. Patient received a 3rd unit blood this morning. Breathing better. Had some blood in his urine. On 2 L is cannula. Sitting up in a chair, eating better. Some cough with brownish sputum. 05/07/2022: ICU. Up in a chair. Eating better. On 2 L nasal cannula. On IV daptomycin. IV Zosyn. Has had dark stools but is on iron. We'll hold off oral iron to see if stool color lightens. Add NovoLog 5 units scheduled with meals. Hemoglobin dropped again to 6.2. Received 1 unit of blood today. 05/08/2022: ICU. Seen by me this morning. Hemoglobin further dropped again. 5.9. Data patient underwent EGD by Dr. Fiore. Fresh blood seen in the third and fourth portion of duodenum of blood clots noted. No obvious source noted. Patient is on PPI. Also sacral decub ulcer abscess also drained. Patient received a unit of blood this morning. Discussed with Neema from cardiothoracic team. Patient does not like hospital food. has been free eating food from outside. Including [employer] fish [employer] etc. Difficult to control Accu- Cheks. Concerned the patient may become hypoglycemic if a more aggressive. farxiga is being added. 05/09/2022: ICU. No further drop in hemoglobin after blood transfusion yesterday. Patient is off eliquis. Had a dark stool today. Oral intake fair. On 2 L nasal cannula. On IV daptomycin IV Zosyn. 05/10/2022: ICU. Patient had no further drop in hemoglobin. Had a black stool. Off oxygen. Eating well. Accu-Cheks will stabilize. On IV daptomycin IV Zosyn. Sputum growing Margo albicans and Aspergillus fumigators. We'll decrease Levemir to 16 units. Decreased scheduled NovoLog to 3 units with meals. 05/11/2022: ICU. Patient was short of breath this morning. Remains on IV Bumex. Had black stool today. Hemoglobin remained stable. Accu-Cheks followed. Levemir cutback to 12 units at night. Remains on IV daptomycin IV Zosyn. Up in a chair. 05/12/2022: ICU. Some shortness of breath. On 2 L nasal cannula. Hemoglobin remained stable. Oral intake fair. On IV daptomycin and IV Zosyn. Up in a chair. at the bedside. 05/13/2022: ICU. Patient continues to be a bit short of breath. IV Bumex. Remains on IV daptomycin IV Zosyn. Some cough. Tired. Continues to have dark stools. Hemoglobin dropped again to 6.5. Received a unit of blood this morning. GI Dr. Michelle Ramos's been consulted. Accu-Cheks running low lower side. DC Levemir. 05/14/2022: ICU. Patient's had more dark stools. Seen by Dr. Michelle Ramos from GI today. For endoscopy tomorrow. Tolerating diet. On 2 L cannula. Patient is on Levemir since yesterday. 05/15/2022: ICU. Patient was seen by me earlier today. Hemoglobin dropped again. Received a unit of blood. Later this afternoon patient went down for EGD by Dr. Michelle Ramos.:1. 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 2 small gastric AVMs with no active bleeding status post coagulation with argon plasma 05/16/2022: ICU. Up in a chair. present. No further drop in hemoglobin. On 3 L nasal cannula. Eating fair. Accu-Cheks controlled. 05/17/2022: ICU. Hemoglobin remained stable. Dark stool. Some shortness of breath. Eating some. [facility] authorization approved for tomorrow. Active Medications Acetaminophen (Acetaminophen Tab 325 Mg Tab) 650 mg PO Q6HR PRN PRN Reason: Fever and/ or Mild Pain Last Admin: 05/17/22 11:04 Dose: 650 mg Hydrocodone Bitart/Acetaminophen (Hydrocodone/Apap 5-325mg 1 Each Tab) 1 each PO Q4HR PRN PRN Reason: Moderate Pain (Scale 4 to 6) Last Admin: 05/17/22 02:09 Dose: 1 each Albuterol/Ipratropium (Ipratropium-Albuterol 3 Ml Neb) 3 ml INHALATION RT-Q2H PRN PRN Reason: Shortness Of Breath Or Wheezing Last Admin: 05/15/22 22:26 Dose: 3 ml Albuterol/Ipratropium (Ipratropium-Albuterol 3 Ml Neb) 3 ml INHALATION RT-QID ZULMA Last Admin: 05/17/22 14:14 Dose: 3 ml Apixaban (Apixaban 5 Mg Tab) 5 mg PO BID [facility]; Protocol Last Admin: 05/17/22 11:02 Dose: 5 mg Ascorbic Acid (Ascorbic Acid 500 Mg Tab) 500 mg PO DAILY [facility] Last Admin: 05/17/22 10:09 Dose: 500 mg Aspirin (Aspirin 81 Mg) 81 mg PO DAILY [facility] Last Admin: 05/17/22 10:09 Dose: 81 mg Atorvastatin Calcium (Atorvastatin 20 Mg Tab) 20 mg PO DAILY [facility] Last Admin: 05/17/22 10:09 Dose: 20 mg Benzocaine/Menthol (Benzocaine/Menthol Lozeng 1 Each Lozenge) 1 each MUCOUS MEM Q2HR PRN PRN Reason: Sore Throat Last Admin: 05/17/22 10:11 Dose: 1 each Bisacodyl (Bisacodyl 10 Mg Supp) 10 mg RECTAL DAILY PRN PRN Reason: Constipation Last Admin: 05/09/22 09:10 Dose: 10 mg Budesonide/Formoterol Fumarate (Symbicort 160-4.5 Mcg Inhaler) 2 puff INHALATION RT-BID [facility] Last Admin: 05/17/22 09:19 Dose: 2 puff Bumetanide (Bumetanide 0.25 Mg/Ml 10 Ml Vial) 2 mg IV DAILY [facility] Last Admin: 05/17/22 10:09 Dose: 2 mg Dapagliflozin (Dapagliflozin Propanediol 10 Mg Tablet) 10 mg PO DAILY [facility] Last Admin: 05/17/22 10:09 Dose: 10 mg Dextrose/Water (Dextrose 50% Syringe 50 Ml) 25 ml IVP PER PROTOCOL PRN; Protocol PRN Reason: Hypoglycemia Dextrose/Water (Dextrose 50% Syringe 50 Ml) 50 ml IVP PER PROTOCOL PRN; Protoc ol PRN Reason: Hypoglycemia Ferrous Sulfate (Ferrous Sulfate 325 Mg Tab) 325 mg PO BID-W/MEALS [facility] Last Admin: 05/17/22 10:08 Dose: 325 mg Guaifenesin/Dextromethorphan (Guaifenesin-Dm 600/30mg 1 Each Tab.Er.12h) 1 each PO Q12HR [facility] Last Admin: 05/17/22 10:10 Dose: 1 each Piperacillin Sod/Tazobactam (Sod 3.375 gm/ Sodium Chloride) 100 mls @ 25 mls/hr IVPB Q8HR [facility]; Protocol Last Admin: 05/17/22 10:08 Dose: 25 mls/hr Insulin Aspart (Insulin Aspart (Novolog) 100 Unit/Ml Vial) 0 unit SQ ACHS [facility]; Protocol Last Admin: 05/17/22 11:49 Dose: 2 unit Lidocaine (Lidocaine 5% Patch) 2 patch TOPICAL DAILY [facility]; Protocol Last Admin: 05/17/22 10:10 Dose: 2 patch Lisinopril (Lisinopril 2.5 Mg Tab) 2.5 mg PO DAILY [facility] Last Admin: 05/17/22 10:03 Dose: Not Given Magnesium Hydroxide (Magnesium Hydroxide 2,400 Mg/10 Ml Cup) 2,400 mg PO BID PRN PRN Reason: Constipation Last Admin: 04/22/22 07:08 Dose: 2,400 mg Metoprolol Tartrate (Metoprolol Tartrate 25 Mg Tab) 25 mg PO BID [facility] Last Admin: 05/17/22 10:03 Dose: Not Given Miscellaneous Information (Potassium Replacement Protocol 1 Each Misc) 1 each MISCELLANE DAILY PRN; Protocol PRN Reason: Per Protocol Miscellaneous Information (Magnesium Replacement Protocol 1 Each Misc) 1 each MISCELLANE DAILY PRN; Protocol PRN Reason: Per Protocol Non-Formulary Medication (Non Formulary Drug) 1 each SQ DAILY [facility] Last Admin: 05/17/22 12:41 Dose: Not Given Ondansetron HCl (Ondansetron 4 Mg/2 Ml Vial) 4 mg IVP Q6HR PRN PRN Reason: Nausea And Vomiting Last Admin: 05/16/22 19:24 Dose: 4 mg Pantoprazole Sodium (Pantoprazole 40 Mg/10 Ml Vial) 40 mg IVP BID [facility] Last Admin: 05/17/22 10:10 Dose: 40 mg Potassium Chloride (Potassium Chloride Er 10 Meq Tab.Er.Prt) 10 meq PO DAILY [facility] Last Admin: 05/17/22 10:10 Dose: 10 meq Senna/Docusate Sodium (Sennosides-Docusate Sodium 1 Each Tab) 2 each PO HS [facility] Last Admin: 05/16/22 20:08 Dose: 2 each Sodium Chloride (Sodium Chloride 0.9% Flush 10 Ml Syringe) 10 ml IV BID [facility] Last Admin: 05/17/22 10:10 Dose: 10 ml Tamsulosin HCl (Tamsulosin 0.4 Mg Cap.Er.24h) 0.4 mg PO PC-BRKFST [facility] Last Admin: 05/17/22 10:08 Dose: 0.4 mg On examination: VITAL SIGNS: 98, 82, 15, 11 8 x 61, 95% on 3 L GENERAL APPEARANCE: Up in chair, some short of breath HEENT: Normal external appearance of nose and ear. Oral cavity normal EYES: Pupils equal. Conjunctiva normal. NECK: JVD not raised. Mass not palpable. RESPIRATORY: Respiratory effort increased. Lungs diminished breath sounds. CARDIOVASCULAR: First and second sounds normal. Edema present ABDOMEN: Soft. Liver and spleen not palpable. No tenderness. No mass palpable. Sacral decub. PSYCHIATRY: AO 3, mood and affect normal INVESTIGATIONS, reviewed in the clinical context: 05/17/2022: WBC 5.41 and 7.2 progression for creatinine 1.09 05/16/2022: White count 6.60 globin 7.4 potassium 4.1 creatinine 1.11 C. diff: Negative 05/15/2022: Hemoglobin 6.2 platelets 215 progression for BUN 41 creatinine 1.37 05/14/2022: WBC 5.8 hemoglobin 7 platelets 202 05/13/2022: White count 8.3 hemoglobin 6.5 platelets 197 potassium 4.4 BUN 42 creatinine 1.33 05/04/2022: WBC 16 hemoglobin 6.1 platelets 362 potassium 3.7 BUN 75 creatinine 1.75 Limited 2-D echocardiogram [May 01]: EF 45%. Aeub-ya-spokykum MR, moderate aortic stenosis 05/01/2022: WBC 15.3 hemoglobin 7.2 platelets 305 potassium 4. [address] chest [April 29]: Moderate partial obliterate right pleural effusion, left pleural effusion, cardiomegaly. 04/24/2022: WBC 9.2 hemoglobin 7.1 platelets 122 potassium 5.1 BUN 77 creatinine 2.97 AST 1270 ALT 1038 WBC 8.2 hemoglobin 7.5 platelets 111 sodium 135 progression 6 BUN 67 creatinine 3.43 AST 3595 ALT 1512 Limited 2-D echocardiogram: EF 45-50%. Inferior wall hypokinesis. Moderate MR. Moderate pulmonary hypertension with moderate TR. Assessment and plan -Acute on chronic congestive heart exacerbation from systolic/diastolic dysfunction EF 45-50%:, precipitated by A. fib: Bumex 2 mg IV daily -pneumonia, short of breath, infiltrate on chest x-ray, increasing white count and procalcitonin: Better IV cefepime-completed -Acute hypoxic respiratory failure from pulmonary edema/pneumonia: Better On 3 L nasal cannula -Diabetes Mellitus type 2 , better. Victoza . farxiga 5 mg -Paroxysmal atrial fibrillation status post modified Castanon-Maze procedure,: With rapid ventricular rate: Now - sinus rhythm amiodarone ,Lopressor. Eliquis held because of GI bleed -Acute GI bleed from the third and fourth portion of duodenum: 1. 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 2 small gastric AVMs with no active bleeding status post coagulation with argon plasma: By Dr. Michelle Ramos -acute renal failure on chronic kidney disease stage II with renal failure is probably prerenal azotemia, cardiorenal syndrome.: Better Creatinine peaked at 3.43. Creatinine 1.11 -hyperkalemia secondary to acute renal failure: Corrected Received Lokelma. Renal diet -Acute hepatitis, likely ischemic: Better Follow closely. GI services not available in the hospital. Hold any hepatic offensive medications. Follow LFTs patient as patient started back on amiodarone -Acute COPD exacerbation, in a smoker DuoNeb. Symbicort -Hyperlipidemia Lipitor -Sacral decubitus ulcer: With abscess. Large abscess was encountered. 12 x 10 x 4 cm deep. Cleaned out by Dr. Fiore 05/08/2022. Follow with ID. On IV daptomycin, IV Zosyn -Metabolic alkalosis from diuresis Was on Diamox - coronary artery disease with previous PCI Aspirin, Imdur, Lopressor -Acute postprocedure blood loss anemia as expected from surgery, also hospital-acquired anemia from blood draws Received PRBC -Chronic nicotine dependence - post mitral valve failure, status post CABG, status post PFO closure: Currently [id number] MR -Moderate aortic stenosis -Moderate secondary pulmonary hypertension Continue current treatment plan. Activity is started. Has received authorization to go tomorrow to [facility] tomorrow.
--- NOTE | 2022-05-17 15:50 | P.PN ---
Subjective Progress Note Date: 05/17/22 Principal diagnosis: Leukocytosis Patient is a 72-year-old male electively admitted to the hospital 04/19/2022 for mitral valve repair and coronary bypass grafting 3 and this patient has been afebrile however noticed to have worsening leukocytosis. Patient has been evaluated by general surgery and is scheduled for EGD and debridement of the sacral wound Completed on 05/08/2022 unfortunately abscess was drained but no cultures were obtained. Patient is status post EGD completed on 05/15/2022 with evidence of duodenal bleeding On today's evaluation that is 05/17/2022 patient denies any fever or chills , the patient is breathing comfortably on 3 L nasal cannula oxygen, the patient denies chest pain , the patient denies any worsening cough or sputum brush and n o nausea no vomiting no abdominal pain and pain to the sacral wound area slightly decreased Objective - Vital Signs Vital signs: Vital Signs Temp 98.2 F 05/17/22 04:00 Pulse 75 05/17/22 09:34 Resp 24 05/17/22 07:00 BP 101/54 05/17/22 07:00 Pulse Ox 97 05/17/22 07:00 FiO2 100 04/22/22 16:00 Intake & Output 05/16/22 05/17/22 05/17/22 18:59 06:59 18:59 Intake Total 1120 100 Output Total 1375 701 1 Balance -255 -601 -1 Weight 91 kg Intake: IV 300 100 Piperacillin-Tazobactam 3 200 100 .375 gm In Sodium Chloride 0.9% 100 ml @ 25 mls/hr IVPB Q8HR ZULMA Rx# :[id number] Sodium Ferric Gluconat- 100 Sucrose 125 mg In Sodium Chloride 0.9% 100 ml @ 100 mls/hr IVPB DAILY ZULMA Rx#:[id number] Oral 820 0 Output: Urine 1375 700 Stool 1 1 Other: Voiding Method Urinal Urinal # Voids 0 1 # Bowel Movements 1 ABP, PAP, CO, CI - Last Documented Arterial Blood Pressure 137/47 Pulmonary Artery Pressure 67/18 Cardiac Output 5.8 Cardiac Index 2.8 - Exam GENERAL DESCRIPTION: An elderly male up in the chair in no distress RESPIRATORY SYSTEM: Unlabored breathing , decreased breath sounds at bases HEART: S1 S2 regular rate and rhythm , ABDOMEN: Soft , no tenderness Stages the sacral pressure ulcer with some slough tissue at base and surrounding redness some foul-smelling EXTREMITIES: 2+ edema feet - Labs CBC & Chem 7: 05/17/22 05:29 05/17/22 05:29 Labs: Abnormal Lab Results - Last 24 Hours (Table) 05/16/22 05/16/22 05/17/22 Range/Units 11:13 20:02 05:29 RBC (4.30-5.90) m/uL Hgb (13.0-17.5) gm/dL Hct (39.0-53.0) % MCHC (31.0-37.0) g/dL RDW (11.5-15.5) % Chloride 108 H (98-107) mmol/L BUN 28 H (9-20) mg/dL POC Glucose (mg/dL) 199 H 256 H (70-110) mg/dL Calcium 7.4 L (8.4-10.2) mg/dL 05/17/22 Range/Units 05:29 RBC 2.42 L (4.30-5.90) m/uL Hgb 7.2 L (13.0-17.5) gm/dL Hct 23.4 L (39.0-53.0) % MCHC 30.6 L (31.0-37.0) g/dL RDW 17.2 H (11.5-15.5) % Chloride (98-107) mmol/L BUN (9-20) mg/dL POC Glucose (mg/dL) (70-110) mg/dL Calcium (8.4-10.2) mg/dL Microbiology - Last 24 Hours (Table) 05/16/22 09:15 Stool Culture - Preliminary Stool Assessment and Plan (1) Leukocytosis Current Visit: Yes Status: Acute Code(s): D72.829 - ELEVATED WHITE BLOOD CELL COUNT, UNSPECIFIED SNOMED Code(s): 123316094 Plan: 1patient with a leukocytosis in this patient who is postop mitral valve repair and CABG x3 patient did not have any fever during this hospital stay and the white count has been slowly creeping up over the last 5 days source possible cath versus UTI versus his sacral pressure ulcer, patient started as well as vein grafting sites looks clean without evidence of any cellulitis he did have a thoracocentesis with fluid does not look infected and cultures subsequently negative. 2 blood cultures are negative. 3patient likely source of elevated white count is infected sacral pressure ulcer, , Patient is status post surgical debridement of the sacral pressure ulcer with evidence of abscess unfortunately no cultures were done 4-patient white count has normalized and the patient will continue the patient on Zosyn, plan is for at least 2 weeks of antibiotics on discharged 5sputum is currently growing Margo and Aspergillus likely colonization, patient chest x-ray completed this morning did shows cardiomegaly and pulmonary vascular condition no evidence of any consolidation Time with Patient: Less than 30
[2022-05-17 16:35] LABS: Glucose,Whole Blood 177 mg/dL (70-110)
[2022-05-17 20:37] LABS: Glucose,Whole Blood 167 mg/dL (70-110)
[2022-05-17] MEDS: SENNOSIDES-DOCUSATE SODIUM 1 EACH TAB PO SCH (20:44)
[2022-05-17] MEDS: IPRATROPIUM-ALBUTEROL 3 ML NEB INHALATION PRN (23:46)
[2022-05-18] MEDS: PIPERACILLIN-TAZOBACTAM 3.375 GM in SODIUM CHLORIDE 0.9% 100 ML IVPB SCH ×2 (01:03→08:47)
[2022-05-18] MEDS: IPRATROPIUM-ALBUTEROL 3 ML NEB INHALATION PRN (05:11)
[2022-05-18] MEDS: FERROUS SULFATE 325 MG TAB PO SCH (06:42)
[2022-05-18 06:43] LABS: Glucose,Whole Blood 145 mg/dL (70-110)
[2022-05-18] MEDS: INSULIN ASPART (NovoLOG) 100 UNIT/ML VIAL SQ SCH (06:46)
[2022-05-18 07:27] LABS: Calcium 7.5 mg/dL (8.4-10.2); Potassium 4.1 mmol/L (3.5-5.1)
[2022-05-18 07:28] LABS: Anisocytosis Slight; HCT 24.8 % (39.0-53.0); HGB 7.6 gm/dL (13.0-17.5); Hypochromasia Marked; MCH 30.2 pg (25.0-35.0); MCHC 30.6 g/dL (31.0-37.0); MCV 98.6 fL (80.0-100.0); Macrocytosis Slight; Mean Platelet Volume 8.2; Platelet Count 248 k/uL (150-450); Poikilocytosis Slight; RBC 2.52 m/uL (4.30-5.90); WBC 5.4 k/uL (3.8-10.6)
--- NOTE | 2022-05-18 07:35 | XR ---
EXAMINATION TYPE: XR chest 2V DATE OF EXAM: 05/18/2022 COMPARISON: 05/17/2022 INDICATION: Postcardiac surgery TECHNIQUE: Frontal and lateral views of the chest are obtained. FINDINGS: The heart size is normal. The pulmonary vasculature is somewhat prominent in the. Bibasilar infiltrates are present. Small left and minimal right pleural effusions are present. Findi ngs are stable. Sternotomy wires are present from prior cardiac surgery. IMPRESSION: 1. Bibasilar infiltrates with small left and minimal right pleural effusions.
[2022-05-18] MEDS: IPRATROPIUM-ALBUTEROL 3 ML NEB INHALATION SCH ×2 (07:55→11:42)
[2022-05-18] MEDS: SYMBICORT 160-4.5 MCG INHALER INHALATION SCH (07:55)
[2022-05-18] MEDS: BUMETANIDE 0.25 MG/ML 10 ML VIAL IV SCH (08:49)
[2022-05-18] MEDS: TAMSULOSIN 0.4 MG CAP.ER.24H PO SCH (08:49)
[2022-05-18] MEDS: ATORVASTATIN 20 MG TAB PO SCH (08:49)
[2022-05-18] MEDS: APIXABAN 5 MG TAB PO SCH (08:49)
[2022-05-18] MEDS: ASPIRIN 81 MG PO SCH (08:49)
[2022-05-18] MEDS: ASCORBIC ACID 500 MG TAB PO SCH (08:49)
[2022-05-18] MEDS: guaiFENesin-DM 600/30MG 1 EACH TAB.ER.12H PO SCH (08:50)
[2022-05-18] MEDS: NON FORMULARY DRUG SQ SCH ×2 (08:50→11:21)
[2022-05-18] MEDS: PANTOPRAZOLE 40 MG/10 ML VIAL IVP SCH (08:50)
[2022-05-18] MEDS: DAPAGLIFLOZIN PROPANEDIOL 10 MG TABLET PO SCH (08:50)
[2022-05-18] MEDS: POTASSIUM CHLORIDE ER 10 MEQ TAB.ER.PRT PO SCH (08:51)
[2022-05-18] MEDS: LIDOCAINE 5% PATCH TOPICAL SCH (08:56)
[2022-05-18] MEDS: METOPROLOL TARTRATE 25 MG TAB PO SCH (08:56)
[2022-05-18] MEDS: BENZOCAINE/MENTHOL LOZENG 1 EACH LOZENGE MUCOUS MEM PRN (08:58)
--- NOTE | 2022-05-18 09:02 | P.PN ---
Subjective Progress Note Date: 05/18/22 PROGRESS NOTE The patient is a 72-year-old male with a known history of CAD, atrial fibrillation, coronary disease and mitral valve disease who underwent CABG with SVG to the diagonal branch, obtuse marginal branch and PDA, mitral valve repair with closure of PFO and modified Castanon procedure with ligation of the left atrial appendage, performed by Dr. Raines on April 19. His postoperative course has been complicated by recurrent bleeding, requiring multiple transfusion, dyspnea and fatigue. He continues to feel weak and dyspneic although slightly better. He is scheduled to be seen by Dr. Ramos today for further evaluation of his GI status. He denies any chest discomfort, dizziness or palpitations. His urinary output has been stable. He has not been anticoagulated because of the recurrent GI bleeding. Hemodynamically he is stable. He denies any nausea or vomiting. His chest x-ray shows mild congestion. May 15: The patient continues to be in sinus mechanism. He feels tired but he denies any chest discomfort, dizziness or palpitations. He is more anemic today and is scheduled to undergo transfusion and workup by the GI service including upper and lower endoscopy according to him. He denies any nausea or vomiting. Hemodynamically he has been stable. May 16: The patient feels better, his breathing is better. He underwent endoscopy yesterday with clipping of an AV malformation. He continues to be in sinus mechanism. He denies any chest discomfort, dizziness or palpitations. He continues to feel weak. His blood pressure is stable. He has no nausea or vomi ting. May 17: He feels and looks better today, he denies any chest discomfort. His breathing is stable. He denies any dizziness or palpitations. He is in atrial fibrillation this morning. He denies any nausea or vomiting. He continues to feel fatigued when he walks some dyspnea but better overall. His appetite is stable. May 18: He feels and looks better today. He is back in sinus mechanism. He denies any chest discomfort, dizziness or palpitations. He denies any nausea or vomiting. He has been ambulating. He scheduled to be transferred to rehab today. His appetite has been good. There is no evidence of gross active bleeding Medications: Aspirin 81 mg daily, Bumex 2 mg IV daily, metoprolol 25 mg twice a day, Flomax once a day, Farxiga 10 mg qd, Lipitor 20 mg daily, lisinopril 2.5 milligrams daily PHYSICAL EXAMINATION: Blood pressure 114/50 heart rate 75 LUNGS: Clear to auscultation HEART: Irregular rate and rhythm, S1, S2. No S3. systolic murmur at the base ABDOMEN: Soft, nontender, no organomegaly EXTREMETIES: 1+ edema LAB: Hemoglobin 7.6, BUN 21, creatinine 1.27 IMPRESSION: 1. Status post CABG with mitral valve repair and closure of left atrial append age 2. Recurrent anemia with GI bleeding, status post clipping, stable 3. History of paroxysmal atrial fibrillation, back in atrial fibrillation 4. History of COPD 5. Physical deconditioning post surgery 6. History of hyperlipidemia PLAN: 1. Increase SUSAN inhibitor 2. Continue anticoagulation 3. Increase statin 4. Probable transfer to rehab today. Objective - Vital Signs Vital signs: Vital Signs Temp 98.2 F 05/18/22 00:00 Pulse 75 05/18/22 08:10 Resp 18 05/18/22 04:00 BP 114/51 05/18/22 04:00 Pulse Ox 99 05/18/22 04:00 FiO2 100 04/22/22 16:00 Intake & Output 05/17/22 05/18/22 05/18/22 18:59 06:59 18:59 Intake Total 875 Output Total 1151 525 Balance -276 -525 Weight 91.2 kg Intake: IV 100 Piperacillin-Tazobactam 3 100 .375 gm In Sodium Chloride 0.9% 100 ml @ 25 mls/hr IVPB Q8HR [facility] Rx# :[id number] Oral 775 Output: Urine 1150 525 Stool 1 Other: Voiding Method Urinal Urinal # Voids 1 1 # Bowel Movements 1 1 ABP, PAP, CO, CI - Last Documented Arterial Blood Pressure 137/47 Pulmonary Artery Pressure 67/18 Cardiac Output 5.8 Cardiac Index 2.8 - Labs CBC & Chem 7: 05/18/22 05:25 05/18/22 05:25 Labs: Abnormal Lab Results - Last 24 Hours (Table) 05/17/22 05/17/22 05/17/22 Range/Units 11:39 16:33 20:36 RBC (4.30-5.90) m/uL Hgb (13.0-17.5) gm/dL Hct (39.0-53.0) % MCHC (31.0-37.0) g/dL RDW (11.5-15.5) % BUN (9-20) mg/dL Glucose (74-99) mg/dL POC Glucose (mg/dL) 196 H 177 H 167 H (70-110) mg/dL Calcium (8.4-10.2) mg/dL 05/18/22 05/18/22 05/18/22 Range/Units 05:25 05:25 06:41 RBC 2.52 L (4.30-5.90) m/uL Hgb 7.6 L (13.0-17.5) gm/dL Hct 24.8 L (39.0-53.0) % MCHC 30.6 L (31.0-37.0) g/dL RDW 18.0 H (11.5-15.5) % BUN 21 H (9-20) mg/dL Glucose 106 H (74-99) mg/dL POC Glucose (mg/dL) 145 H (70-110) mg/dL Calcium 7.5 L (8.4-10.2) mg/dL
[2022-05-18 09:18] VITALS: RESP 22
--- NOTE | 2022-05-18 09:30 | P.PN ---
Subjective Progress Note Date: 05/18/22 Principal diagnosis: Severe mitral valve regurgitation, coronary artery disease, paroxysmal atrial fibrillation, patent foramen ovale, tricuspid regurgitation, chronic systolic congestive heart failure. Previous medical history of hypertension, hyperlipidemia, coronary artery disease with history of previous PCI, non-ST elevated myocardial infarction in November 2021, ischemic cardiomyopathy with EF 40- 45%, right internal carotid stenosis 50-79%, renal insufficiency, anemia with history of GI bleed in November 2021 S/P transfusion PRBCs, diabetes mellitus type 2, osteoarthritis, severe COPD, chronic ongoing nicotine dependence, remote history of pneumonia, chronic low back pain and hearing disorder. Nasal swab positive for MSSA preoperative POD #29 Mitral valve repair with 28 mm physio-2 ring, CABG 3 with saphenous vein grafts to first diagonal, obtuse marginal, posterior descending coronary arteries, closure of PFO, endovascular vein harvest, modified Castanon maze procedure with full left-sided lesion set and ligation of the left atrial appendage, SCOTT by anesthesia. Protamine reaction intraoperative Postoperative acute blood loss anemia, expected given his history of anemia, hemodilution and cardiopulmonary bypass Acute on chronic kidney failure, likely from hypotension from intraoperative protamine reaction Elevated transaminases, likely from hypotension from intraoperative protamine reaction Left pleural effusion, status post left-sided thoracentesis with removal of [address] Aguilar on 04/30/22 and again on 05/04/22 for 550 mL fluid Leukocytosis, afebrile, CRP and pro-calcitonin trending down, second repeat sputum culture positive for aisha and Aspergillus, no pneumonia, no UTI, blood culture negative, likely due to sacral stage II ulcer The patient was seen and examined this morning sitting up in a recliner in the intensive care unit in no acute distress eating breakfast. Currently in sinus rhythm, hemodynamically stable. Currently on room air with oxygen saturation in the high 90s, able to achieve 1000 mL on his incentive spirometer. States pain is controlled on current medication regimen, pain is generally with coughing and to his coccyx. Labs and chest x-ray reviewed. Continues on Zosyn per Dr. Chen. Hemoglobin stable at 7.6 this morning. No further blood transfusion recommended. Anticipate discharge to subacute rehab today. Objective - Vital Signs Vital signs: Vital Signs Temp 98.0 F 05/18/22 08:00 Pulse 75 05/18/22 08:10 Resp 22 05/18/22 08:00 BP 109/62 05/18/22 08:00 Pulse Ox 95 05/18/22 08:00 FiO2 100 04/22/22 16:00 Intake & Output 05/17/22 05/18/22 05/18/22 18:59 06:59 18:59 Intake Total 875 Output Total 1151 525 Balance -276 -525 Weight 91.2 kg Intake: IV 100 Piperacillin-Tazobactam 3 100 .375 gm In Sodium Chloride 0.9% 100 ml @ 25 mls/hr IVPB Q8HR [facility] Rx# :[id number] Oral 775 Output: Urine 1150 525 Stool 1 Other: Voiding Method Urinal Urinal Urinal # Voids 1 1 # Bowel Movements 1 1 ABP, PAP, CO, CI - Last Documented Arterial Blood Pressure 137/47 Pulmonary Artery Pressure 67/18 Cardiac Output 5.8 Cardiac Index 2.8 - Exam CONSTITUTIONAL: Appears mostly comfortable, cooperative, very hard of hearing RESPIRATORY: Lungs sounds diminished bilaterally. Respirations even, nonlabored. Currently on room air with oxygen saturation 95%. Able to achieve 1000 mL on incentive spirometry. Strong nonproductive cough. CARDIOVASCULAR: S1, S2 present. Regular rate and rhythm, sinus rhythm on telemetry. Sternum stable. Palpable peripheral pulses bilaterally. Bilateral lower extremity edema present. No calf pain or tenderness noted. Heart hugger in place. Antiembolism stockings, SCDs present. GASTROINTESTINAL: Abdomen soft, nontender, nondistended. Active bowel sounds present 4 quadrants. Tolerating diet. Positive bowel movement 05/17 GENITOURINARY: Continues to void, output 1675 mL in the last 24 hours INTEGUMENTARY: Skin is warm and dry. Anterior chest incision well approximated. Bilateral EVH site well approximated. Stage II present to sacrum NEUROLOGIC: Cranial nerves II through XII intact MUSKULOSKELETAL: Able to move all extremities, strength equal bilaterally PSYCHIATRIC: Oriented to person place and time - Allied health notes Allied health notes reviewed: nursing - Labs CBC & Chem 7: 05/18/22 05:25 05/18/22 05:25 Labs: Abnormal Lab Results - Last 24 Hours (Table) 05/17/22 05/17/22 05/17/22 Range/Units 11:39 16:33 20:36 RBC (4.30-5.90) m/uL Hgb (13.0-17.5) gm/dL Hct (39.0-53.0) % MCHC (31.0-37.0) g/dL RDW (11.5-15.5) % BUN (9-20) mg/dL Glucose (74-99) mg/dL POC Glucose (mg/dL) 196 H 177 H 167 H (70-110) mg/dL Calcium (8.4-10.2) mg/dL 05/18/22 05/18/22 05/18/22 Range/Units 05:25 05:25 06:41 RBC 2.52 L (4.30-5.90) m/uL Hgb 7.6 L (13.0-17.5) gm/dL Hct 24.8 L (39.0-53.0) % MCHC 30.6 L (31.0-37.0) g/dL RDW 18.0 H (11.5-15.5) % BUN 21 H (9-20) mg/dL Glucose 106 H (74-99) mg/dL POC Glucose (mg/dL) 145 H (70-110) mg/dL Calcium 7.5 L (8.4-10.2) mg/dL - Imaging and Cardiology Chest x-ray: report reviewed, image reviewed Assessment and Plan Assessment: 1. Severe mitral valve regurgitation, status post mitral valve repair 2. Coronary artery disease, previous PCI, previous non-STEMI, status post CABG 3 3. History of paroxysmal atrial fibrillation, previous cardioversion, on [facility] outpatient for anticoagulation, status post modified Castanon maze and ligation of left atrial appendage 4. Patent foramen ovale, status post closure 5. Tricuspid regurgitation 6. Chronic systolic congestive heart failure, ischemic cardiomyopathy with EF 40-45% 7. History of hypertension 8. History hyperlipidemia, treated, cholesterol 150, LDL 72 9. Right internal carotid stenosis 50-79% 10. Acute on chronic blood loss anemia with history of GI bleed in November 2021 S/P transfusion PRBCs 11. Acute on chronic renal failure, baseline creatinine 1.28-1.6 12. Diabetes mellitus type 2, preoperative hemoglobin A1c 5.6% 13. Osteoarthritis 14. Severe COPD, preoperative FEV1 41% of predicted 15. Chronic ongoing nicotine dependence 16. Remote history of pneumonia 17. Chronic low back pain, hearing disorder 18. Nasal swab positive for MSSA preoperative 19. Postoperative acute blood loss anemia, expected 20. Elevated transaminases 21. Protamine reaction intraoperative 22. Leukocytosis, afebrile, CRP and pro-calcitonin trending down, sputum culture negative, no pneumonia, no UTI, likely due to sacral stage II ulcer 23. Medical debility, generalized weakness 24. Stage II decubitus to his buttocks, status post surgical debridement 25. Small left-sided pleural effusion, status post left-sided thoracentesis on 04/30/2022 26. Urinary retention possibly secondary to constipation Plan: 1. Continue low dose aspirin, statin, beta siomara. Statin increase today by Dr. Man. SUSAN inhibitor added yesterday and increased today by Dr. Man 2. Encourage incentive spirometry 10 times every hour while awake. Bronchodilators per pulmonology 3. Increase activity, ambulate as tolerated. PT/OT/cardiac rehab following. Shower daily 4. Will monitor daily labs and chest x-rays. Electrolyte replacement per protocol. Continue Bumex 5. GI/DVT prophylaxis. Remains on IV protonix BID 6. Insulin management per primary care service. Patient is a diabetic with a preoperative hemoglobin A1c of 5.6% on multiple oral medications, needs tight blood sugar control 7. Pain control with current medication regimen 8. Continue Flomax 9. Strict accurate intake and output. Daily weights. 10. Per Dr. Chen recommendations continue Zosyn for 1 week 11. Smoking cessation counseling and education provided to patient and family 12. Medihoney ordered for sacral decubitus per Dr. Chen 13. Anticipate discharge to subacute rehab today
--- NOTE | 2022-05-18 10:45 | P.PN ---
Subjective Progress Note Date: 05/18/22 Principal diagnosis: GI bleed This is a pleasant 72-year-old male with multiple comorbidities including mitral regurgitation, coronary artery disease, proximal atrial fibrillation, osteoarthritis, diabetes mellitus, hyperlipidemia, chronic tobacco dependence, infected sacral wound, and chronic anemia who underwent elective mitral valve repair, coronary bypass grafting 3, closure of PFO, modified Maze procedure in litigation a left atrial appendage. Since being in the hospital he was noted to have significant anemia. He had been reporting black stools. He was on Eliquis , however reportedly was stopped about a week ago. He had then been on a full dose aspirin which again since he had continued anemia was changed to a low dose 81 mg aspirin. Patient denies any previous history of long-term NSAID use. States he takes Tylenol at home for pain. Patient did have a history of a GI bleed in November of this year and underwent EGD done at [facility] which showed a small oozing AVM in the second portion of the duodenum with epinephrine administration and Lip placement 1. As well as 4 antral ulcers and small hiatal hernia. There recommendation was to repeat EGD in 2-3 months. Patient states had a repeat EGD done with Dr. Ramos in the last couple months done at [facility], which report is unavailable at this time. Prior to that he had a colonoscopy done on 02/16/[address] Malave which was significant for colon polyps status post polypectomy. During this hospitalization he was seen by general surgery, Dr. Cardenas performed an EGD on 05/08/2022 with findings of duodenitis, distal esophagitis and fresh blood in the third/fourth portion of the duodenum, no visible AVM. During this hospitalization the patient has received 9 units of red blood cells, 2 units of FFP and 1 unit of platelets. Yesterday he had a hemoglobin 7.2, he was given 1 unit of blood with a repeat hemoglobin today of 7.2. States his last bowel movement was yesterday and still dark, formed. He is denying any abdominal pain, nausea or vomiting. 05/16/2022. Patient was seen and examined in the ICU sitting up in the bedside chair. He is status post EGD yesterday with one actively bleeding duodenal AVM in the second and third part of the duodenum status post argon plasma coagulation followed by Endo Clip placement with good hemostasis as well as 2 small gastric AVMs with no active bleeding status post coagulation with argon plasma. Today's repeat hemoglobin is stable at 7.2. Patient states he is having diarrhea since his surgery, however yesterday evening he had multiple and was up throughout the night. He is denying any abdominal pain nausea or vomiting associated. Patient has been on antibiotics during this hospitalization, will order a C. diff stool studies. 05/17/2022. Patient seen and examined the follow-up in the ICU. Notified this morning patient back in atrial fibrillation. Hemoglobin stable at 7.2.he denies any abdominal pain, nausea or vomiting. Diarrhea improving some, he only went twice this morning. C. diff was negative. he states stool becoming more formed. 05/18/2022. Patient seen and examined as follow-up in the ICU. Plan is for patient to be discharged to subacute rehab today. Hemoglobin is stable at 7.4. Patient denies any abdominal pain nausea or vomiting. Diarrhea is improving and is becoming more formed. He has not had a bowel movement yet this morning but feels like he will have to. States that bowel movement color is lightening up. No fresh blood. Objective - Vital Signs Vital signs: Vital Signs Temp 98.2 F 05/18/22 00:00 Pulse 73 05/18/22 05:11 Resp 18 05/18/22 04:00 BP 114/51 05/18/22 04:00 Pulse Ox 99 05/18/22 04:00 FiO2 100 04/22/22 16:00 Intake & Output 05/17/22 05/17/22 05/18/22 06:59 18:59 06:59 Intake Total 100 875 Output Total 701 1151 525 Balance -601 -276 -525 Weight 91 kg 91.2 kg Intake: IV 100 100 Piperacillin-Tazobactam 3 100 100 .375 gm In Sodium Chloride 0.9% 100 ml @ 25 mls/hr IVPB Q8HR [facility] Rx# :[id number] Oral 0 775 Output: Urine 700 1150 525 Stool 1 1 Other: Voiding Method Urinal Urinal Urinal # Voids 0 1 1 # Bowel Movements 1 1 ABP, PAP, CO, CI - Last Documented Arterial Blood Pressure 137/47 Pulmonary Artery Pressure 67/18 Cardiac Output 5.8 Cardiac Index 2.8 - Exam General appearance: The patient is alert, oriented, appears in no acute distress. HET: Head is normocephalic and atraumatic. Conjunctiva pink. Sclera anicteric. Neck: Supple without lymphadenopathy. Abdomen: Soft, nontender, nondistended with bowel sounds. No guarding or rigidity. Extremities: Normal skin color and turgor. No pedal edema Skin: No rashes, no jaundice Neurological: No focal deficits. Alert and oriented. - Labs CBC & Chem 7: 05/18/22 05:25 05/18/22 05:25 Labs: Abnormal Lab Results - Last 24 Hours (Table) 05/17/22 05/17/22 05/17/22 Range/Units 05:29 11:39 16:33 Chloride 108 H (98-107) mmol/L BUN 28 H (9-20) mg/dL POC Glucose (mg/dL) 196 H 177 H (70-110) mg/dL Calcium 7.4 L (8.4-10.2) mg/dL 05/17/22 05/18/22 Range/Units 20:36 06:41 Chloride (98-107) mmol/L BUN (9-20) mg/dL POC Glucose (mg/dL) 167 H 145 H (70-110) mg/dL Calcium (8.4-10.2) mg/dL Assessment and Plan (1) Upper GI bleed Narrative/Plan: Knee 2-year-old male who came in for elective cardiovascular surgery who underwent CABG, mitral valve repair on 04/19/2022 who has still been admitted to the ICU with notable anemia. Patient has had several transfusions during this hospitalization including 9 RBC, 2 FFP and 1 platelet. Patient has a history of chronic anemia and states he's been on iron at home and was having some dark stools however he didn't start having black stools until he was here in the hospital. He did undergo EGD on 05/08/[address] Cardenas with fresh blood seen in the third and fourth part of the duodenum but no visible AVMs reported. Otherwise patient had duodenitis and mild distal esophagitis. Patient continues to have low hemoglobin with concerns for continued upper GI bleed. Patient also has a history of known AVMs which were treated at [facility] in November of this year, also noted on report was for antral ulcers. Possible etiologies include bleeding AVM, bleeding ulcer or other possible etiologies. Plan for repeat upper EGD tomorrow with possible small bowel capsule endoscopy. He is status post EGD yesterday with one actively bleeding duodenal AVM in the second and third part of the duodenum status post argon plasma coagulation followed by Endo Clip placement with good hemostasis as well as 2 small gastric AVMs with no active bleeding status post coagulation with argon plasma. Current Visit: Yes Status: Acute Code(s): K92.2 - GASTROINTESTINAL HEMORRHAGE, UNSPECIFIED SNOMED Code(s): 38663480 (2) Normocytic normochromic anemia Current Visit: Yes Status: Acute Code(s): D64.9 - ANEMIA, UNSPECIFIED SNOMED Code(s): 92485725 (3) Diarrhea Narrative/Plan: Unclear etiology at this time however patient has been on antibiotics during this hospitalization. Will order stool studies including C. diff and stool culture. Diarrhea improving. Current Visit: Yes Status: Acute Code(s): R19.7 - DIARRHEA, UNSPECIFIED SNOMED Code(s): 21959555 Plan: 1. Continue symptomatic and supportive care 2. Continue ICU management 3. Diet as tolerated 4. Patient is status post EGD with findings of actively bleeding duodenal AVM as well as 2 small gastric AVMs nonbleeding both treated. 5. May resume anticoagulation 6. Patient is cleared from gastroenterology for discharge Thank you for this consultation, we will sign off at this time. Dr. Michelle Ramos I agree with the dictator's note, documented as a scribe by Radha Moody.
--- NOTE | 2022-05-18 10:47 | P.DS ---
Providers Date of admission: 04/19/22 05:43 Expected date of discharge: 05/18/22 Attending physician: Hai Raines Consults: 04/19/22 14:56 Consult Physician Routine Consulting Provider: Ender Chowdhury Consult Reason/Comments: Duck Farmer Consult: post cardiac surgery Do you want consulting provider notified?: Yes Consult Physician Routine Consulting Provider: Beto Bynum Consult Reason/Comments: med [facility]; [facility] patient Do you want consulting provider notified?: Yes Consult Physician Routine Consulting Provider: Leonora Rolon Consult Reason/Comments: Employment Advisor Consult: post cardiac surgery Do you want consulting provider notified?: Yes 04/25/22 09:40 Consult Physician Routine Consulting Provider: Neftaly Mora Consult Reason/Comments: IPR at discharge Do you want consulting provider notified?: Yes 04/29/22 21:34 Consult Physician Routine Consulting Provider: Larry Villatoro Consult Reason/Comments: Retention Do you want consulting provider notified?: Yes, Notify in am 05/02/22 07:09 Consult Physician Routine Consulting Provider: Neftaly Mora Consult Reason/Comments: Evaluation for inpatient rehab Do you want consulting provider notified?: Yes 05/02/22 09:04 Consult Physician Routine Consulting Provider: Sabi Chen Consult Reason/Comments: leukocytosis Do you want consulting provider notified?: Yes 05/06/22 08:17 Consult Physician Routine Consulting Provider: Jonathan Masters Consult Reason/Comments: reconsult: hematuria Do you want consulting provider notified?: Yes 05/13/22 10:18 Consult Physician Routine Consulting Provider: Lisa Ramos Consult Reason/Comments: Decrease HGB, hx of GI bleed Do you want consulting provider notified?: Yes, Notify in am Primary care physician: [facility] Course: FINAL DIAGNOSIS: 1. Severe mitral valve regurgitation, status post mitral valve repair 2. Coronary artery disease, previous PCI, previous non-STEMI, status post CABG 3 3. History of paroxysmal atrial fibrillation, previous cardioversion, on [facility] outpatient for anticoagulation, status post modified Castanon maze and ligation of left atrial appendage 4. Patent foramen ovale, status post closure 5. Tricuspid regurgitation 6. Chronic systolic congestive heart failure, ischemic cardiomyopathy with EF 40-45% 7. History of hypertension 8. History hyperlipidemia, treated, cholesterol 150, LDL 72 9. Right internal carotid stenosis 50-79% 10. Acute on chronic blood loss anemia with history of GI bleed in November 2021 S/P transfusion PRBCs 11. Acute on chronic renal failure, baseline creatinine 1.28-1.6 12. Diabetes mellitus type 2, preoperative hemoglobin A1c 5.6% 13. Osteoarthritis 14. Severe COPD, preoperative FEV1 41% of predicted 15. Chronic ongoing nicotine dependence 16. Remote history of pneumonia 17. Chronic low back pain, hearing disorder 18. Nasal swab positive for MSSA preoperative 19. Postoperative acute blood loss anemia, expected 20. Elevated transaminases 21. Protamine reaction intraoperative 22. Leukocytosis, afebrile, CRP and pro-calcitonin trending down, sputum culture negative, no pneumonia, no UTI, likely due to sacral stage II ulcer 23. Medical debility, generalized weakness 24. Stage II decubitus to his buttocks, status post surgical debridement 25. Small left-sided pleural effusion, status post left-sided thoracentesis on 04/30/2022 26. Urinary retention possibly secondary to constipation 27. 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 Mitral valve repair with 28 mm physio-2 ring 2. CABG 3 with saphenous vein grafts to first diagonal, obtuse marginal, posterior descending coronary arteries 3. Closure of PFO 4. Endovascular vein harvest 5. Modified Castanon maze procedure with full left-sided lesion set 6. Ligation of the left atrial appendage 7. Intraoperative SCOTT by anesthesia 8. Left-sided thoracentesis with removal of [address] Aguilar on 04/30/22 and again on 05/04/22 for 550 mL fluid 9. Incision and drainage and debridement of sacral decubitus ulcer with sacral wound abscess 10. EGD 05/08/2022, and again 05/15/2022, this time with argon plasma coagulation and endo-clip ligation HISTORY OF PRESENT ILLNESS: This is a 72-year-old male patient who follows outpatient with Dr. Leal for primary care and Dr. Man for cardiology. He was referred to Dr. Raines for evaluation for coronary bypass surgery and mitral valve repair. The patient had been experiencing progressive dyspnea over the previous year. Cardiac catheterization performed in November demonstrated occlusion of right coronary artery which filled via collaterals. The circumflex coronary artery had a large obtuse marginal with 99% stenosis. LAD had mild disease. SCOTT demonstrated diminished left ventricular systolic function with global hypokinesia and EF 45%, severe mitral regurgitation with posteriorly directed eccentric jet which hugged the wall all the way to the posterior atrium. There was reversal of flow in the pulmonary veins, moderate central tricuspid regurgitation, evidence of PFO with right to left shunting on bubble study, and some fibrocalcific disease of the aortic valve but with preserved function of the aortic valve. There is no evidence of thrombus in the left atrial appendage. He was recommended to undergo coronary artery bypass surgery, repair the mitral valve, evaluation of the tricuspid valve with possible tricuspid repair, biatrial Castanon maze procedure, and closure of the PFO. The usual perioperative course was discussed in detail with the patient and his family, all risks and benefits were explained, all questions were answered, and consent was obtained to proceed with surgery. The patient was scheduled for surgery at the earliest possible date. HOSPITAL COURSE: The patient was brought to the hospital on 04/19/22, taken to the preoperative area, prepared in the usual fashion, and subsequently taken to the operating room where Dr. Raines performed 3 vessel coronary artery bypass surgery, mitral valve repair, and closure of PFO. Upon completion of surgery the patient was transferred to the cardiovascular intensive care unit where he was recovered and monitored hemodynamically. He was extubated, all lines, tubes, and drips were discontinued when appropriate. The patient had a roberto recovery as described above but was eventually felt stable for discharge to subacute rehab. Transfer orders were placed for 3 S. cardiac stepdown unit, however there was no bed availability and the patient remained on ICU as a stepdown patient until discharge. His oxygen was titrated down although he still required 3 L nasal cannula, he continued to work with physical and occupational therapy, he was tolerating oral diet, his pain was controlled, and he was ready to be discharged to [facility] subacute rehab on postoperative day #29. He received written and verbal instruction regarding his medications, activity restrictions, signs and symptoms requiring physician notification, and follow-up appointments. Patient Condition at Discharge: Stable Plan - Discharge Summary Discharge Rx Participant: Yes New Discharge Prescriptions: New Benzocaine/Menthol Lozeng [Cepacol lozenge] 1 each MUCOUS MEM Q2HR PRN lozenge PRN Reason: Sore Throat Dapagliflozin Propanediol [Farxiga] 10 mg PO DAILY tab Potassium Chloride ER [K-Dur 10] 10 meq PO DAILY tab Lidocaine 5% Patch [Lidoderm 5% Patch] 2 patch TOPICAL DAILY patch Metoprolol Tartrate [Lopressor] 25 mg PO BID tab INSULIN ASPART (NovoLOG) [NovoLOG (formulary)] 0 unit SQ ACHS each Acetaminophen Tab [Tylenol] 650 mg PO Q6HR PRN tab PRN Reason: Fever and/ or Mild Pain Aspirin 81 mg PO DAILY tab Bumetanide [Bumex] 2 mg PO DAILY #30 tablet bisacodyL [Dulcolax] 10 mg RECTAL DAILY PRN suppositor PRN Reason: Constipation Ipratropium-Albuterol Nebulize [Duoneb 0.5 mg-3 mg/3 ml Soln] 3 ml INHALATION RT-Q2H PRN each PRN Reason: Shortness Of Breath Or Wheezing Tamsulosin [Flomax] 0.4 mg PO PC-BRKFST cap Atorvastatin [Lipitor] 40 mg PO DAILY tab guaiFENesin-DM 600/30MG [Mucinex Dm] 1 each PO Q12HR PRN #1 tab PRN Reason: Cough HYDROcodone/APAP 5-325MG [[place] 5-325] 1 each PO Q6HR PRN tab PRN Reason: Moderate Pain (Scale 4 To 6) Pantoprazole [Protonix] 40 mg PO BID #60 tab Sennosides-Docusate Sodium [Senokot-S] 2 each PO HS PRN tab PRN Reason: Constipation Ascorbic Acid [Vitamin C] 500 mg PO DAILY tab lisinopriL [Zestril] 5 mg PO DAILY@1200 tab Piperacillin-Tazobactam [Zosyn] 3.375 gm IVPB Q8HR each Continue Vit C/E/Zn/Coppr/Lutein/Zeaxan [Preservision Areds 2 Softgel] 2 cap PO DAILY Apixaban [Eliquis] 5 mg PO BID Ipratropium-Albuterol Nebulize [Duoneb 0.5 mg-3 mg/3 ml Soln] 3 ml INHALATION QID PRN PRN Reason: Shortness Of Breath Fluticasone/Umeclidin/Vilanter [Trelegy Ellipta 100-62.5-25] 1 inhalation INHALATION HS Ferrous Sulfate [Iron (65 MG Elemental)] 325 mg PO BID Discontinued metFORMIN HCL [Glucophage] 500 mg PO BID Ramipril 10 mg PO QAM Atorvastatin [Lipitor] 80 mg PO HS Liraglutide [Victoza 3-Casey] 1.8 mg SQ DAILY Metoprolol Tartrate 25 mg PO QAM Stool Softener(Unknown Name/Do 2 tab PO DAILY Pioglitazone [Actos] 15 mg PO DAILY Acetaminophen [Tylenol Extra Strength] 500 - 1,000 mg PO DIRECTED PRN PRN Reason: Pain Pantoprazole Sodium [Protonix] 40 mg PO PC-LUNCH Furosemide [Lasix] 40 mg PO BID Repaglinide [Prandin] 0.5 mg PO AC-SUPPER Fenofibrate 160 mg PO HS Mupirocin [Mupirocin 2%] 1 applic NASAL BID #1 tub Discharge Medication List Vit C/E/Zn/Coppr/Lutein/Zeaxan [Preservision Areds 2 Softgel] 2 cap PO DAILY 02/19/17 [History] Apixaban [Eliquis] 5 mg PO BID 11/09/21 [History] Fluticasone/Umeclidin/Vilanter [Trelegy Ellipta 100-62.5-25] 1 inhalation INHALATION HS 11/09/21 [History] Ferrous Sulfate [Iron (65 MG Elemental)] 325 mg PO BID 12/22/21 [History] Ipratropium-Albuterol Nebulize [Duoneb 0.5 mg-3 mg/3 ml Soln] 3 ml INHALATION QID PRN 12/22/21 [History] Acetaminophen Tab [Tylenol] 650 mg PO Q6HR PRN tab 05/18/22 [Rx] Ascorbic Acid [Vitamin C] 500 mg PO DAILY tab 05/18/22 [Rx] Aspirin 81 mg PO DAILY tab 05/18/22 [Rx] Atorvastatin [Lipitor] 40 mg PO DAILY tab 05/18/22 [Rx] Benzocaine/Menthol Lozeng [Cepacol lozenge] 1 each MUCOUS MEM Q2HR PRN lozenge 05/18/22 [Rx] Bumetanide [Bumex] 2 mg PO DAILY #30 tablet 05/18/22 [Rx] Dapagliflozin Propanediol [Farxiga] 10 mg PO DAILY tab 05/18/22 [Rx] HYDROcodone/APAP 5-325MG [[place] 5-325] 1 each PO Q6HR PRN tab 05/18/22 [Rx] INSULIN ASPART (NovoLOG) [NovoLOG (formulary)] 0 unit SQ ACHS each 05/18/22 [Rx] Ipratropium-Albuterol Nebulize [Duoneb 0.5 mg-3 mg/3 ml Soln] 3 ml INHALATION RT-Q2H PRN each 05/18/22 [Rx] Lidocaine 5% Patch [Lidoderm 5% Patch] 2 patch TOPICAL DAILY patch 05/18/22 [Rx] Metoprolol Tartrate [Lopressor] 25 mg PO BID tab 05/18/22 [Rx] Pantoprazole [Protonix] 40 mg PO BID #60 tab 05/18/22 [Rx] Piperacillin-Tazobactam [Zosyn] 3.375 gm IVPB Q8HR each 05/18/22 [Rx] Potassium Chloride ER [K-Dur 10] 10 meq PO DAILY tab 05/18/22 [Rx] Sennosides-Docusate Sodium [Senokot-S] 2 each PO HS PRN tab 05/18/22 [Rx] Tamsulosin [Flomax] 0.4 mg PO PC-BRKFST cap 05/18/22 [Rx] bisacodyL [Dulcolax] 10 mg RECTAL DAILY PRN suppositor 05/18/22 [Rx] guaiFENesin-DM 600/30MG [Mucinex Dm] 1 each PO Q12HR PRN #1 tab 05/18/22 [Rx] lisinopriL [Zestril] 5 mg PO DAILY@1200 tab 05/18/22 [Rx] Follow up Appointment(s)/Referral(s): Laura Aguilar MD [STAFF PHYSICIAN] - 1 Week (Please make follow-up appointment upon discharge from rehab) Adamaris Man MD [STAFF PHYSICIAN] - 1 Week (Please make follow-up appointment upon discharge from rehab) Rehab Alize ZAVALA,Cardiac [NON-STAFF] - 4 Weeks (You will receive a phone call in approximately 4-6 weeks for evaluation for cardiac rehab) Clyde Leal DO [Primary Care Provider] - 1 Week (Please make follow-up appointment upon discharge from rehab) Hai Raines MD [STAFF PHYSICIAN] - 05/24/22 12:00 pm Sabi Chen MD [STAFF PHYSICIAN] - 1 Week (Please make follow-up appointment upon discharge from rehab) Activity/Diet/Wound Care/Special Instructions: DISCHARGE INSTRUCTIONS: 1. No driving for 4 weeks, or until physician gives their ok. 2. The patient should sleep in their own bed, no medical bed needed. 3. Stairs are not an issue. If the bedroom is upstairs, it is advised that the patient go up at night and down in the morning for the first week. Go slowly, using handrail and take 1 step at a time. 4. RAFAEL hose are to be worn for 30 days post surgery or until physician discontinues. 5. Heart hugger is to be worn 100% of the time until physician discontinues.(except when showering) 6. No lifting, pushing, or pulling more than 10 pounds for 12 weeks. The physician will advise of any restriction changes. 7. The patient is expected to continue the prescribed walking program. 8. Continue pain control per as needed orders. 9. Continue with incentive spirometry and splinting/heart hugger until otherwise directed by the physician. 10. Must shower daily using liquid antibacterial soap 11. Routine sternal incision care. No powders, lotions, ointments on incisions. No dressings are necessary on incisions unless they are draining. Dermabond tape is to remain on sternal incision until surgeon follow-up. 12. Please call surgeon/[employer]IVERSAL GRINDER SET UP OPERATOR for temp greater than 101 F or purulent drainage from incisions. 13. You should weigh yourself daily, record and bring log with you to follow up appointments. 14. A Red armband has been placed on the patient. It should be worn for 30 days post discharge from surgery and will be removed by the cardiac surgeons. If an ER visit is necessary, please make sure the number on the Red armband is called before going to ER. 15. You have been referred to and are expected to begin Cardiac Rehab in approximately 4-6 weeks. 16. Change dressing to stage II coccyx decubitus daily and when necessary, irrigate with sterile saline, cover with Opticel silver and foam with border 17. Patient should maintain strict diet with as few carbs as possible to keep blood sugars under tight control, goal blood sugar 120-140 18. No further blood transfusions unless hemoglobin less than 7 and patient symptomatic REHAB/HOME HEALTH SERVICES TO PROVIDE: RN SKILLED HOME CARE SERVICES FOR POST-OP SURGICAL PATIENTS WITH THE FOLLOWING: Coronary Artery Bypass Surgery (CABG), Mitral Valve Replacement/Repair ( MVR), Aortic Valve Replacement/Repair (AVR) RN TO CONTINUE EDUCATION FROM ``ROAD TO A HEALTH HEART PATIENT EDUCATION MANUAL (GIVEN TO PATIENT IN THE HOSPITAL) MEDICATION RECONCILIATION WITH EDUCATION NEEDED ON FIRST HOME VISIT EMPHASIZE IMPORTANCE OF WEARING BREAST SUPPORT/HEART HUGGER ENCOURAGE USE OF INCENTIVE SPIROMETER 10 X EVERY HOUR WHILE AWAKE ENCOURAGE UTILIZATION OF LOWER EXTREMITY COMPRESSION STOCKINGS/RAFAEL HOSE and ELEVATE LEGS ABOVE LEVEL OF HEART WHILE AT REST. ENCOURAGE AMBULATION 3-5x/day INCREASING TOLERATES, WHILE AVOIDING EXTREMES IN TEMPERATURE FREQUENCY: RN TO OPEN THE PATIENT WITHIN 24 HOURS OF DISCHARGE FROM THE HOSPITAL WITH TELEHEALTH INSTALLED AT [facility], RN TO VISIT 2-3 X A WEEK FOR 4 WEEKS ESTABLISHED BY PATIENT NEEDS. LABORATORY: CBC, CMP TO BE DRAWN ON THE THIRD DAY AT REHAB, (RAN STAT) FAX RESULTS TO [phone]. TELEHEALTH PARAMETERS: WEIGHT: NOTIFY MD OF WEIGHT GAIN OF 2 LBS IN 24 HOURS OR 5 LBS IN ONE WEEK HR: NOTIFY MD OF HR <55 BPM OR HR>100 BPM BP: NOTIFY MD IF BP <90/55 OR BP>140/100 O2 SAT: NOTIFY MD IF PO2<93% ON ROOM AIR SEND TELEHEALTH REPORT TO MANAGER ENVIRONMENTAL AFFAIRS AND CARDIOVASCULAR SURGEON THE FIRST WEEK OF CARE AND THEN BI-WEEKLY. PLEASE ADDITIONALLY COMMUNICATE ANY ABNORMALS AND NEW FINDINGS TO THE SURGEONS OFFICE. Discharge Disposition: TRANSFER TO SNF/ECF
[2022-05-18 11:45] VITALS: PULSE 80
[2022-05-18 11:51] VITALS: BP 108/55; TEMP 98.1
[2022-05-18 12:02] LABS: Glucose,Whole Blood 241 mg/dL (70-110)
--- NOTE | 2022-05-18 13:19 | P.PN ---
Subjective Progress Note Date: 05/18/22 On today's evaluation of 05/14/2022, the patient is postop day #25. The patient is doing well. He is on good progress postop. His chest x-ray still showing evidence of bilateral pleural effusion that are essentially small and the patient is currently on 3 L of oxygen by nasal cannula. . He is breathing comfortably. He is alert and oriented 3. He is ambulating. I reviewed the ultrasound the chest and the chest x-ray and there is no need for thoracentesis at this point in time.. The patient is breathing adequately for now. No significant shortness of breath. He is ambulating. He is using the incentive spirometer. Over the past 24-48 hours, there was a drop in hemoglobin down to 6.5 and the patient was given units of packed RBC and hemoglobin today is up to 7.2. He continues to have some autonomic black tarry stools according to nursing staff. His hemoglobin is to be monitored. He is known to have previous duodenal ulcers. The patient has a hemoglobin of 7.2 from today. Creatinine is also improved and is currently down to 1.3 with a BUN of 34. Continues to receive Lasix on a daily basis. He is also on aspirin 81 mg by mouth daily, metoprolol 25 mg twice a day and the patient is also being treated for a sacral decubitus ulcer and he has many honey and Opteform and is also covered with a combination of Zosyn and daptomycin. He is urinating adequately. He was treate d with IV iron regarding his blood loss anemia. On 05/15/2022, the patient is postop day #26. Decision same as yesterday. Continues to have small bilateral pleural effusions. Remains on oxygen at 3 L per minute nasal cannula. He did have another episode of bloody stool in hemoglobin drop down to 6.2 and the patient is receiving a unit of packed RBC and the patient is going to undergo a EGD today to identify the source of bleeding. No hematemesis. No abdominal distention or pain. Antibiotic coverage remains unchanged and the patient is currently on daptomycin and Zosyn. He is weak. He is being diuresed and a daily basis with Bumex 2 mg IV every 24 hours. On his blood work, the response at 6.6 with a hemoglobin of 6.2 and a platelet count of 215, sodium is at 137 with a potassium level of 4 and a BUN of 41 with a creatinine of 1.37. No altered mentation. He remains weak. No focal neurological deficits. He is receiving wound care to his sacral decubitus ulceration. On 05/16/2022, the patient is stable. 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 There was also 2 other small gastric AVMs which were not showing any active bleeding and coagulation with argon plasma was also performed. The patient since then has remained stable and there is no further drop in hemoglobin for now. For now, the patient is stable hemoglobin of 7.4. Creatinine is also improving and the patient remains on Bumex. Urine is at 35 with a creatinine 1.1. Low-density edema is improving. The patient is having some loose liquidy stool and the stool for C. diff has been also negative. The patient is on Rocephin antibiotics. The patient is is receiving wound care for a sacral decubitus ulcer. Tolerating diet. No nausea or vomiting. Overall, he is still feeling weak. The patient is postop day #27 for now. He remains on oxygen at 50 L/m nasal cannula. No gallop. No nausea. No emesis. No altered mentation. 05/17/2022, the patient is being seen for a follow-up. The patient had on and off some dark stools probably some left over or old blood regarding his recent GI bleed. Hemoglobin remained stable at 7.2. The patient has no nausea or vomiting. No emesis. He is still on 3 L of oxygen by nasal cannula. He is producing adequate amount of urine output. Creatinine is down to 1.09 with a BUN of 28 and a total bilirubin is at 137. The overall fluid balance over the past 24 hours has been -1.2 L. He is weak. Gradually getting stronger. He is doing some limited amount of activity and mobility. He is using the incentive spirometer. Cardiac rhythm is AFIB. The patient is postop day #28. Chest x- ray from today is essentially unchanged. On 05/18/2022, the patient is stable. The patient in weaned off the oxygen and she occasions the patient was placed on room air oxygen. The patient is doing well otherwise. The patient has no specific complaints. No further episode of GI bleeding. Hemoglobin remained stable and for now the plan is to transfer this patient to [facility] for further rehabilitation. The patient is currently postop day #29. Cardiac rhythm is sinus. No antiplatelets being utilized for now. Objective - Vital Signs Vital signs: Vital Signs Temp 98.1 F 05/18/22 11:50 Pulse 80 05/18/22 11:54 Resp 22 05/18/22 11:50 BP 108/55 05/18/22 11:50 Pulse Ox 99 05/18/22 11:50 FiO2 100 04/22/22 16:00 Intake & Output 05/17/22 05/18/22 05/18/22 18:59 06:59 18:59 Intake Total 875 100 Output Total 1151 525 950 Balance -276 -525 -850 Weight 91.2 kg Intake: IV 100 100 Piperacillin-Tazobactam 3 100 100 .375 gm In Sodium Chloride 0.9% 100 ml @ 25 mls/hr IVPB Q8HR [facility] Rx# :[id number] Oral 775 Output: Urine 1150 525 950 Stool 1 Other: Voiding Method Urinal Urinal Urinal # Voids 1 1 4 # Bowel Movements 1 1 2 ABP, PAP, CO, CI - Last Documented Arterial Blood Pressure 137/47 Pulmonary Artery Pressure 67/18 Cardiac Output 5.8 Cardiac Index 2.8 - Exam CONSTITUTIONAL: Sitting up to the bedside chair in the intensive care unit, appears comfortable, cooperative, no apparent acute distress. The patient is currently on 3 L O2 nasal cannula HEENT: Neck is supple, no JVD, no lymphadenopathy. RESPIRATORY: Lungs sounds essentially clear throughout, diminished to his bilateral bases and few scattered crackles to his bilateral bases. Respirations are symmetrical and nonlabored. CARDIOVASCULAR: Regular rhythm and rate. S1 and S2 present, negative for S3, or gallop, soft systolic murmur heard best to his left sternal border. Sternum is stable. Palpable peripheral pulses bilaterally, +1 edema to his bilateral lower extremities. No calf pain or tenderness noted. Heart hugger in place with patient demonstrating appropriate use. Knee-high RAFAEL hose and sequential compression devices in place to his bilateral lower extremities. Bedside telemetry showing normal sinus rhythm with heart rate 81 BPM. GASTROINTESTINAL: Abdomen soft, nontender, nondistended. Active bowel sounds present 4 quadrants. Tolerating diet. Passing flatus. No guarding or rigidity. n GENITOURINARY: Within normal limits INTEGUMENTARY: Skin is warm and dry with no evidence of clubbing or cyanosis. Midline sternal incision clean dry and well approximated, covered with dry intact dressing. Bilateral lower extremity EVH sites well approximated without redness or drainage. Stage II to III decubitus ulcer present to his buttocks covered with optifoam. MUSKULOSKELETAL: Able to move all extremities, strength equal bilaterally, generalized weakness. PSYCHIATRIC: Alert and oriented to person place and time, appropriate affect, intact judgment and insight. - Labs CBC & Chem 7: 05/18/22 05:25 05/18/22 05:25 Labs: Abnormal Lab Results - Last 24 Hours (Table) 05/17/22 05/17/22 05/18/22 Range/Units 16:33 20:36 05:25 RBC 2.52 L (4.30-5.90) m/uL Hgb 7.6 L (13.0-17.5) gm/dL Hct 24.8 L (39.0-53.0) % MCHC 30.6 L (31.0-37.0) g/dL RDW 18.0 H (11.5-15.5) % BUN (9-20) mg/dL Glucose (74-99) mg/dL POC Glucose (mg/dL) 177 H 167 H (70-110) mg/dL Calcium (8.4-10.2) mg/dL 05/18/22 05/18/22 05/18/22 Range/Units 05:25 06:41 12:00 RBC (4.30-5.90) m/uL Hgb (13.0-17.5) gm/dL Hct (39.0-53.0) % MCHC (31.0-37.0) g/dL RDW (11.5-15.5) % BUN 21 H (9-20) mg/dL Glucose 106 H (74-99) mg/dL POC Glucose (mg/dL) 145 H 241 H (70-110) mg/dL Calcium 7.5 L (8.4-10.2) mg/dL Assessment and Plan Plan: Severe mitral valve regurgitation, status post mitral valve repair, postoperative day # 29, continues to recover. He is slow in his recovery. The patient is still on oxygen at 3 L/m nasal cannula. He is overall weak. His course was further, care by episodes of GI bleed. Coronary artery disease, previous PCI, previous non-STEMI, status post CABG 3, postop day # 29 History of paroxysmal atrial fibrillation, previous cardioversion, on [facility] outpatient for anticoagulation, status post modified Castanon maze and ligation of left atrial appendage, postop day #29, he is currently in sinus rhythm and the patient is currently off anticoagulants. Patent foramen ovale, status post closure, postop day #29 Small bilateral pleural effusions left more than right, post thoracotomy, the patient has been adequately diuresed. Atrial fibrillation, expected outcome of surgery and the patient is back to normal sinus rhythm. Chronic systolic congestive heart failure, ischemic cardiomyopathy with EF 40- 45% Acute on chronic drop in hemoglobin/anemia with a component of an upper GI bleed secondary to AV malformation in portion of the duodenum and the patient also had a nonbleeding ulcers and a stomach. I don't plasma treatment was applied and the bleeding stopped and the patient has adequate hemostasis for now. 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 No further episodes of bleeding and hemoglobin is stable for now History of hypertension History hyperlipidemia, treated, cholesterol 150, LDL 72 Right internal carotid stenosis 50-79% Previous Anemia with history of GI bleed in November 2021 S/P transfusion PRBCs Acute on chronic renal failure, the creatinine is stable currently down to normal Diabetes mellitus type 2, preoperative hemoglobin A1c 5.6% currently Levemir insulin 8 units along with a sliding scale coverage Osteoarthritis Severe COPD, preoperative FEV1 41% of predicted Chronic ongoing nicotine dependence Remote history of pneumonia Chronic low back pain, hearing disorder Nasal swab positive for MSSA preoperative Postoperative acute blood loss anemia, expected Elevated transaminases, most likely due to shock liver and the significant elevation of the ALT and AST which are being monitored, and the level is also improving and there is a decline and LFTs Protamine reaction intraoperative decubitus ulcer stage 2, post wound debridement left-sided pleural effusion post thoracentesis of the left Left lung removal of 800 mL of pleural fluid. Plan: Overall condition stable\ Hemoglobin is stable No GI bleeding Respiratory status is stable and the patient is currently on 2 L of oxygen by nasal cannula The patient will be discharged to [facility] for further rehabilitation Surgical one-sided dry clean and intact 1 management regarding the stage II sacral decub Increase mobility Monitor hemoglobin and watch for any signs of GI bleed Cardiac medications per cardiothoracic surgery Possible discharge today
--- NOTE | 2022-05-18 15:44 | P.PN ---
Progress Note - Text Progress Note Date: 05/18/22 Patient is a pleasant 72-year-old male came in the for elective mitral valve repair, CABG x 3 vessel, maze procedure, PFO closure. Patient is extubated sitting in the chair patient still has a [place]-Varghese catheter, CVP of around 12, cardiac index 3.1 patient creatinine went up to 1.70 resulting elevated potassium of 5.5 patient is off pressor support, off nitro drip patient still has 2 mediastinal and one left-sided chest tube. 04/21/2022 Patient is evaluated in ICU today, sitting up in chair. He is postoperative day #2 for elective mitral valve repair, hematocrit bypass grafting maze procedure and PFO closure. He is on BiPAP with fio2 of 40% Continues with mediastinal/left pleural chest tubes. Continue with indwelling catheter. Received dose of IV albumin yesterday afternoon. Chest xray today showing ongoing mild pulmonary vascular congestion, increasing patchy bibasilar opacities, atelectasis vs. pulmonary edema. Currently on lasix gtt at 10mls/hr, continues on dopamine gtt at 3.68 mls/hr. Continues on insulin gtt and blood glucose remains in the 140 to 130s. Labs today showing sodium 132, potassium 6.1 improved to 5.4, BUN 41, creatinine 2.53, elevated liver enzymes. Hgb 7.3. 04/22/2022 Patient continues to be monitored closely in intensive care unit, he is postoperative day #3 for elective mitral valve repair, maze procedure, PFO closure. Managed by primary team. He had limited echocardiogram completed showing EF 45 to 50%, mild to moderate MR, moderate pulmonary hypertension with moderate TR. Chest xray today shows slight improvement in pulmonary vascular congestion. Maintained on lasix gtt at 10mls/hr, dopamine gtt, Continues with 2 mediastinal chest tubes. Continues with indwelling catheter. Continues with right IJ swan/cordis, right radial arterial line. He has been weaned off BiPAP currently on high flow cannula at 15L. He has been tolerating some diet. Continues on insulin gtt which will continue until his diet stabilizes. Current glucose in the 140s. Creatinine today 3.14. April 23: I assumed care of patient today from [facility]. ICU. In a recliner. Tired. Little oral intake. Nasal cannula. Drips include IV dopamine and Lasix. Some shortness of breath. Mooney catheter. 04/24/2022: ICU. Up. 4 L nasal cannula. Did eat better. Edema present. On the Lasix drip 5 mg an hour. Some improvement in creatinine. 04/25/2022: ICU. Up in a recliner. Eating better. at the bedside. Edema present. Off Lasix drip. Feeling better. Creatinine coming down. LFTs improving. Home dose of Victoza was started 04/26/2022: ICU. Up in a recliner. 4 L nasal cannula. Eating about 50%. Accu-Cheks noted. 04/27/2022: ICU: Patient went into atrial fibrillation overnight. Put on oral amiodarone and Lopressor per CTS.. Some worsening of shortness of breath. Placed on IV Lasix. Eating some. Up in a recliner. 04/28/2022: ICU. Patient received Lopressor today for the A. fib. Patient went down into sinus rhythm. Blood pressure also dropped her was 70 systolic. Oxygen increased to 4 L. Short of breath. Patient did walk 10-12 steps up to the door. Eating fair. Lower extremity edema edema present. Up in a chair. Tired. 04/29/2022: ICU. Short of breath. 3 L nasal cannula. Eating fair. Edema pre sent. Getting Bumex. Getting IV albumin and IV calcium. Using incentive spirometry. Up in a chair. Discussed with at the bedside. Increasing white count, infiltrated urine chest x-ray suggestive of pneumonia. Started on IV cefepime 04/30/2022: ICU. Remains short of breath. 3 L nasal cannula. Started on IV cefepime yesterday.. Oral intake fair. Edema present. Remains on Bumex. Fo sher catheter. Discussed with patient and at the bedside. Discussed with Dr. Cortez from cardiothoracic surgery. 05/01/2022: ICU. Zaroxolyn was added. Good diuresis. Breathing better. On IV cefepime. Left paracentesis is done. 850 mL removed. Oral intake fair. Breathing a bit better. Telemetry shows sinus rhythm. 2 L nasal cannula. at the bedside. Will DC Actos. Even though smaller dose. Given CHF renal failure. Increase Lantus to 12 units. 05/02/2022: ICU. Over 3 is a negative fluid balance. Last 24 hours. Some improvement in breathing. Oral intake fair. Remains in atrial fibrillation controlled. 2 L nasal cannula. Add Diamox. 4 metabolic alkalosis 05/03/2022: ICU. This morning patient became short of breath. Dr. Chen from [place] consulted for sacral decub. Remains on IV cefepime. Oral intake fair. Had a BM. On IV Bumex. I discussed with Dr. Aguilar from pulmonary. Patient is known to him. Advanced COPD. His right lung changes are chronic. Has had previous CAT scans. He may have had a located effusion. 05/04/2022: ICU. Breathing a bit better. Hemoglobin dropped to 6.1. Awaiting transfusion. Tolerating diet. On IV cefepime. Patient started on IV eraxis by Dr. Prescott from [place]. 05 May 2022: ICU. Patient received a unit of blood yesterday evening. Getting another unit of blood today. Breathing better. Remains on IV Bumex. IV cefepime discontinued. Remains on IV Eraxis. Oral intake fair. Up in a chair. at the bedside. Increase Levemir to 20 units at night. 05/06/2022: ICU. Patient received a 3rd unit blood this morning. Breathing better. Had some blood in his urine. On 2 L is cannula. Sitting up in a chair, eating better. Some cough with brownish sputum. 05/07/2022: ICU. Up in a chair. Eating better. On 2 L nasal cannula. On IV daptomycin. IV Zosyn. Has had dark stools but is on iron. We'll hold off oral iron to see if stool color lightens. Add NovoLog 5 units scheduled with meals. Hemoglobin dropped again to 6.2. Received 1 unit of blood today. 05/08/2022: ICU. Seen by me this morning. Hemoglobin further dropped again. 5.9. Data patient underwent EGD by Dr. Fiore. Fresh blood seen in the third and fourth portion of duodenum of blood clots noted. No obvious source noted. Patient is on PPI. Also sacral decub ulcer abscess also drained. Patient received a unit of blood this morning. Discussed with Neema from cardiothoracic team. Patient does not like hospital food. has been free eating food from outside. Including [employer] fish [employer] etc. Difficult to control Accu- Cheks. Concerned the patient may become hypoglycemic if a more aggressive. farxiga is being added. 05/09/2022: ICU. No further drop in hemoglobin after blood transfusion yesterday. Patient is off eliquis. Had a dark stool today. Oral intake fair. On 2 L nasal cannula. On IV daptomycin IV Zosyn. 05/10/2022: ICU. Patient had no further drop in hemoglobin. Had a black stool. Off oxygen. Eating well. Accu-Cheks will stabilize. On IV daptomycin IV Zosyn. Sputum growing Margo albicans and Aspergillus fumigators. We'll decrease Levemir to 16 units. Decreased scheduled NovoLog to 3 units with meals. 05/11/2022: ICU. Patient was short of breath this morning. Remains on IV Bumex. Had black stool today. Hemoglobin remained stable. Accu-Cheks followed. Levemir cutback to 12 units at night. Remains on IV daptomycin IV Zosyn. Up in a chair. 05/12/2022: ICU. Some shortness of breath. On 2 L nasal cannula. Hemoglobin remained stable. Oral intake fair. On IV daptomycin and IV Zosyn. Up in a chair. at the bedside. 05/13/2022: ICU. Patient continues to be a bit short of breath. IV Bumex. Remains on IV daptomycin IV Zosyn. Some cough. Tired. Continues to have dark stools. Hemoglobin dropped again to 6.5. Received a unit of blood this morning. GI Dr. Michelle Ramos's been consulted. Accu-Cheks running low lower side. DC Levemir. 05/14/2022: ICU. Patient's had more dark stools. Seen by Dr. Michelle Ramos from GI today. For endoscopy tomorrow. Tolerating diet. On 2 L cannula. Patient is on Levemir since yesterday. 05/15/2022: ICU. Patient was seen by me earlier today. Hemoglobin dropped again. Received a unit of blood. Later this afternoon patient went down for EGD by Dr. Michelle Ramos.:1. 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 2 small gastric AVMs with no active bleeding status post coagulation with argon plasma 05/16/2022: ICU. Up in a chair. present. No further drop in hemoglobin. On 3 L nasal cannula. Eating fair. Accu-Cheks controlled. 05/17/2022: ICU. Hemoglobin remained stable. Dark stool. Some shortness of breath. Eating some. [facility] authorization approved for tomorrow. 05/18/2022: ICU. Patient doing better. Breathing stable. Hemoglobin stable. Going to [facility] today.New Diabetic medication farxiga, discussed with the patient and . Accu-Cheks to be followed. On examination: VITAL SIGNS: 98.1, 80, 22, 108/55, 99% on 3 L GENERAL APPEARANCE: Up in chair, some short of breath HEENT: Normal external appearance of nose and ear. Oral cavity normal EYES: Pupils equal. Conjunctiva normal. NECK: JVD not raised. Mass not palpable. RESPIRATORY: Respiratory effort increased. Lungs diminished breath sounds. CARDIOVASCULAR: First and second sounds normal. Edema present ABDOMEN: Soft. Liver and spleen not palpable. No tenderness. No mass palpable. Sacral decub. PSYCHIATRY: AO 3, mood and affect normal INVESTIGATIONS, reviewed in the clinical context: 05/17/2022: WBC 5.41 and 7.2 progression for creatinine 1.09 05/16/2022: White count 6.60 globin 7.4 potassium 4.1 creatinine 1.11 C. diff: Negative 05/15/2022: Hemoglobin 6.2 platelets 215 progression for BUN 41 creatinine 1.37 05/14/2022: WBC 5.8 hemoglobin 7 platelets 202 05/13/2022: White count 8.3 hemoglobin 6.5 platelets 197 potassium 4.4 BUN 42 creatinine 1.33 05/04/2022: WBC 16 hemoglobin 6.1 platelets 362 potassium 3.7 BUN 75 creatinine 1.75 Limited 2-D echocardiogram [May 01]: EF 45%. [id number] MR, moderate aortic stenosis 05/01/2022: WBC 15.3 hemoglobin 7.2 platelets 305 potassium 4. [address] chest [April 29]: Moderate partial obliterate right pleural effusion, left pleural effusion, cardiomegaly. 04/24/2022: WBC 9.2 hemoglobin 7.1 platelets 122 potassium 5.1 BUN 77 creatinine 2.97 AST 1270 ALT 1038 WBC 8.2 hemoglobin 7.5 platelets 111 sodium 135 progression 6 BUN 67 creatinine 3.43 AST 3595 ALT 1512 Limited 2-D echocardiogram: EF 45-50%. Inferior wall hypokinesis. Moderate MR. Moderate pulmonary hypertension with moderate TR. Assessment and plan -Acute on chronic congestive heart exacerbation from systolic/diastolic dysfunction EF 45-50%:, precipitated by A. fib: Bumex 2 mg IV daily -pneumonia, short of breath, infiltrate on chest x-ray, increasing white count and procalcitonin: Better IV cefepime-completed -Acute hypoxic respiratory failure from pulmonary edema/pneumonia: Better On 3 L nasal cannula -Diabetes Mellitus type 2 , better. Victoza . farxiga 5 mg -Paroxysmal atrial fibrillation status post modified Castanon-Maze procedure,: With rapid ventricular rate: Now - sinus rhythm amiodarone ,Lopressor. Eliquis held because of GI bleed -Acute GI bleed from the third and fourth portion of duodenum: 1. 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 2 small gastric AVMs with no active bleeding status post coagulation with argon plasma: By Dr. Michelle Ramos -acute renal failure on chronic kidney disease stage II with renal failure is probably prerenal azotemia, cardiorenal syndrome.: Better Creatinine peaked at 3.43. Creatinine 1.11 -hyperkalemia secondary to acute renal failure: Corrected Received Lokelma. Renal diet -Acute hepatitis, likely ischemic: Better Follow closely. GI services not available in the hospital. Hold any hepatic offensive medications. Follow LFTs patient as patient started back on amiodarone -Acute COPD exacerbation, in a smoker DuoNeb. Symbicort -Hyperlipidemia Lipitor -Sacral decubitus ulcer: With abscess. Large abscess was encountered. 12 x 10 x 4 cm deep. Cleaned out by Dr. Fiore 05/08/2022. Follow with ID. On IV daptomycin, IV Zosyn -Metabolic alkalosis from diuresis Was on Diamox - coronary artery disease with previous PCI Aspirin, Imdur, Lopressor -Acute postprocedure blood loss anemia as expected from surgery, also hospital- acquired anemia from blood draws Received PRBC -Chronic nicotine dependence - post mitral valve failure, status post CABG, status post PFO closure: Currently [id number] MR -Moderate aortic stenosis -Moderate secondary pulmonary hypertension Patient getting discharged to rehab today. Antibiotics per ID. Wound care per Dr. hardy follow Accu-Cheks. Discussed with patient and . Follow CBC BMP.
--- NOTE | 2022-05-18 20:16 | P.PN ---
Subjective Progress Note Date: 05/18/22 Principal diagnosis: Leukocytosis Patient is a 72-year-old male electively admitted to the hospital 04/19/2022 for mitral valve repair and coronary bypass grafting 3 and this patient has been afebrile however noticed to have worsening leukocytosis. Patient has been evaluated by general surgery and is scheduled for EGD and debridement of the sacral wound Completed on 05/08/2022 unfortunately abscess was drained but no cultures were obtained. Patient is status post EGD completed on 05/15/2022 with evidence of duodenal bleeding On today's evaluation that is 05/18/2022 patient remains to be afebrile , the patient is breathing comfortably on nasal cannula oxygen, the patient denies chest pain , the patient did have occasional dry cough no nausea no vomiting no abdominal pain and diarrhea pain to the sacral wound is controlled Objective - Vital Signs Vital signs: Vital Signs Temp 98.0 F 05/18/22 08:00 Pulse 75 05/18/22 08:10 Resp 22 05/18/22 08:00 BP 109/62 05/18/22 08:00 Pulse Ox 95 05/18/22 08:00 FiO2 100 04/22/22 16:00 Intake & Output 05/17/22 05/18/22 05/18/22 18:59 06:59 18:59 Intake Total 875 Output Total 1151 525 Balance -276 -525 Weight 91.2 kg Intake: IV 100 Piperacillin-Tazobactam 3 100 .375 gm In Sodium Chloride 0.9% 100 ml @ 25 mls/hr IVPB Q8HR [facility] Rx# :[id number] Oral 775 Output: Urine 1150 525 Stool 1 Other: Voiding Method Urinal Urinal Urinal # Voids 1 1 # Bowel Movements 1 1 ABP, PAP, CO, CI - Last Documented Arterial Blood Pressure 137/47 Pulmonary Artery Pressure 67/18 Cardiac Output 5.8 Cardiac Index 2.8 - Exam GENERAL DESCRIPTION: An elderly male up in the chair in no distress RESPIRATORY SYSTEM: Unlabored breathing , decreased breath sounds at bases HEART: S1 S2 regular rate and rhythm , ABDOMEN: Soft , no tenderness Stages the sacral pressure ulcer with some slough tissue at base and surrounding redness some foul-smelling EXTREMITIES: 2+ edema feet - Labs CBC & Chem 7: 05/18/22 05:25 05/18/22 05:25 Labs: Abnormal Lab Results - Last 24 Hours (Table) 05/17/22 05/17/22 05/17/22 Range/Units 11:39 16:33 20:36 RBC (4.30-5.90) m/uL Hgb (13.0-17.5) gm/dL Hct (39.0-53.0) % MCHC (31.0-37.0) g/dL RDW (11.5-15.5) % BUN (9-20) mg/dL Glucose (74-99) mg/dL POC Glucose (mg/dL) 196 H 177 H 167 H (70-110) mg/dL Calcium (8.4-10.2) mg/dL 05/18/22 05/18/22 05/18/22 Range/Units 05:25 05:25 06:41 RBC 2.52 L (4.30-5.90) m/uL Hgb 7.6 L (13.0-17.5) gm/dL Hct 24.8 L (39.0-53.0) % MCHC 30.6 L (31.0-37.0) g/dL RDW 18.0 H (11.5-15.5) % BUN 21 H (9-20) mg/dL Glucose 106 H (74-99) mg/dL POC Glucose (mg/dL) 145 H (70-110) mg/dL Calcium 7.5 L (8.4-10.2) mg/dL Assessment and Plan (1) Leukocytosis Status: Acute Code(s): D72.829 - ELEVATED WHITE BLOOD CELL COUNT, UNSPECIFIED SNOMED Code(s): 401617198 Plan: 1patient with a leukocytosis in this patient who is postop mitral valve repair and CABG x3 patient did not have any fever during this hospital stay and the white count has been slowly creeping up over the last 5 days source possible cath versus UTI versus his sacral pressure ulcer, patient started as well as vein grafting sites looks clean without evidence of any cellulitis he did have a thoracocentesis with fluid does not look infected and cultures subsequently negative. 2 blood cultures are negative. 3patient likely source of elevated white count is infected sacral pressure ulcer, , Patient is status post surgical debridement of the sacral pressure ulcer with evidence of abscess unfortunately no cultures were done 4-patient white count has normalized and the patient will continue the patient on Zosyn for at least 2 weeks on discharge and close outpatient follow-up in the wound care center 5sputum is currently growing Margo and Aspergillus likely colonization, patient chest x-ray completed this morning did shows cardiomegaly and pulmonary vascular condition no evidence of any consolidation, no need for antifungals at this point Time with Patient: Less than 30
[2022-05-19] MEDS ORDERED: lisinopriL 5 MG TAB PO SCH (09:00)
[2022-05-19] MEDS ORDERED: ATORVASTATIN 40 MG TAB PO SCH (09:00)
== END 2022-05-18 12:48 | DRG 233 ==
LOC: 2ORMAIN 05:43 → 2SICU 14:01
PROVIDERS: ADMIT Thoracic Surgery (Cardiothoracic Vascular Surgery); ATTEND Thoracic Surgery (Cardiothoracic Vascular Surgery)
PROC: 06BP4ZZ Excision of Right Saphenous Vein, Percutaneous Endoscopic Approach (ICD-10-PCS; 2022-04-19)
PROC: 02UG3JZ Supplement Mitral Valve with Synthetic Substitute, Percutaneous Approach (ICD-10-PCS; 2022-04-19)
PROC: 5A1221Z Performance of Cardiac Output, Continuous (ICD-10-PCS; 2022-04-19)
PROC: 02L70CK Occlusion of Left Atrial Appendage with Extraluminal Device, Open Approach (ICD-10-PCS; 2022-04-19)
PROC: 30233R1 Transfusion of Nonautologous Platelets into Peripheral Vein, Percutaneous Approach (ICD-10-PCS; 2022-04-19)
PROC: 30233K1 Transfusion of Nonautologous Frozen Plasma into Peripheral Vein, Percutaneous Approach (ICD-10-PCS; 2022-04-19)
PROC: 3E030XZ Introduction of Vasopressor into Peripheral Vein, Open Approach (ICD-10-PCS; 2022-04-19)
PROC: 30233N1 Transfusion of Nonautologous Red Blood Cells into Peripheral Vein, Percutaneous Approach (ICD-10-PCS; 2022-04-19)
PROC: 02580ZZ Destruction of Conduction Mechanism, Open Approach (ICD-10-PCS; principal; 2022-04-19 08:00)
PROC: 0212093 Bypass Coronary Artery, Three Arteries from Coronary Artery with Autologous Venous Tissue, Open Approach (ICD-10-PCS; 2022-04-19 08:00)
PROC: 02Q50ZZ Repair Atrial Septum, Open Approach (ICD-10-PCS; 2022-04-19 08:00)
PROC: 06BQ4ZZ Excision of Left Saphenous Vein, Percutaneous Endoscopic Approach (ICD-10-PCS; 2022-04-19 08:00)
PROC: 0W9B3ZZ Drainage of Left Pleural Cavity, Percutaneous Approach (ICD-10-PCS; 2022-04-30)
PROC: 0W9B3ZZ Drainage of Left Pleural Cavity, Percutaneous Approach (ICD-10-PCS; 2022-05-04)
PROC: 0JB70ZZ Excision of Back Subcutaneous Tissue and Fascia, Open Approach (ICD-10-PCS; 2022-05-08)
PROC: 0J990ZZ Drainage of Buttock Subcutaneous Tissue and Fascia, Open Approach (ICD-10-PCS; 2022-05-08)
PROC: 0W3P8ZZ Control Bleeding in Gastrointestinal Tract, Via Natural or Artificial Opening Endoscopic (ICD-10-PCS; 2022-05-15)
PROC: 0W3P8ZZ Control Bleeding in Gastrointestinal Tract, Via Natural or Artificial Opening Endoscopic (ICD-10-PCS; 2022-05-15)
DX: I25.10 Atherosclerotic heart disease of native coronary artery without angina pectoris (principal); Z00.6 Encounter for examination for normal comparison and control in clinical research program; A41.9 Sepsis, unspecified organism; K72.00 Acute and subacute hepatic failure without coma; J96.01 Acute respiratory failure with hypoxia; I50.43 Acute on chronic combined systolic (congestive) and diastolic (congestive) heart failure; J15.6 Pneumonia due to other Gram-negative bacteria; K31.811 Angiodysplasia of stomach and duodenum with bleeding; K29.81 Duodenitis with bleeding; I44.2 Atrioventricular block, complete; N17.9 Acute kidney failure, unspecified; E87.4 Mixed disorder of acid-base balance; I13.0 Hypertensive heart and chronic kidney disease with heart failure and stage 1 through stage 4 chronic kidney disease, or unspecified chronic kidney disease; Q21.12 Patent foramen ovale; J44.0 Chronic obstructive pulmonary disease with (acute) lower respiratory infection; I48.19 Other persistent atrial fibrillation; J98.11 Atelectasis; D62 Acute posthemorrhagic anemia; D63.1 Anemia in chronic kidney disease; E11.22 Type 2 diabetes mellitus with diabetic chronic kidney disease; I65.21 Occlusion and stenosis of right carotid artery; K25.9 Gastric ulcer, unspecified as acute or chronic, without hemorrhage or perforation; I08.3 Combined rheumatic disorders of mitral, aortic and tricuspid valves; L89.152 Pressure ulcer of sacral region, stage 2; I27.21 Secondary pulmonary arterial hypertension; L89.302 Pressure ulcer of unspecified buttock, stage 2; I27.29 Other secondary pulmonary hypertension; E88.09 Other disorders of plasma-protein metabolism, not elsewhere classified; I95.9 Hypotension, unspecified; I25.82 Chronic total occlusion of coronary artery; I96 Gangrene, not elsewhere classified; J90 Pleural effusion, not elsewhere classified; I24.9 Acute ischemic heart disease, unspecified; E11.65 Type 2 diabetes mellitus with hyperglycemia; E78.5 Hyperlipidemia, unspecified; G89.29 Other chronic pain; K59.00 Constipation, unspecified; R33.9 Retention of urine, unspecified; T45.7X5A Adverse effect of anticoagulant antagonists, vitamin K and other coagulants, initial encounter; K20.90 Esophagitis, unspecified without bleeding; K44.9 Diaphragmatic hernia without obstruction or gangrene; K31.7 Polyp of stomach and duodenum; M19.90 Unspecified osteoarthritis, unspecified site; I25.5 Ischemic cardiomyopathy; N18.2 Chronic kidney disease, stage 2 (mild); H91.90 Unspecified hearing loss, unspecified ear; Z96.653 Presence of artificial knee joint, bilateral; F17.210 Nicotine dependence, cigarettes, uncomplicated; E87.5 Hyperkalemia; E66.3 Overweight; M48.061 Spinal stenosis, lumbar region without neurogenic claudication; R39.12 Poor urinary stream; R39.16 Straining to void; R30.9 Painful micturition, unspecified; R31.9 Hematuria, unspecified; I45.4 Nonspecific intraventricular block; F41.0 Panic disorder [episodic paroxysmal anxiety]; E86.9 Volume depletion, unspecified; Z87.01 Personal history of pneumonia (recurrent); I25.2 Old myocardial infarction; Z98.1 Arthrodesis status; Z95.5 Presence of coronary angioplasty implant and graft; Z79.899 Other long term (current) drug therapy; Z79.84 Long term (current) use of oral hypoglycemic drugs; Z79.01 Long term (current) use of anticoagulants; Z79.51 Long term (current) use of inhaled steroids; Z88.8 Allergy status to other drugs, medicaments and biological substances; Z68.29 Body mass index [BMI] 29.0-29.9, adult; Z79.82 Long term (current) use of aspirin; Z79.4 Long term (current) use of insulin; Z87.11 Personal history of peptic ulcer disease; Z87.19 Personal history of other diseases of the digestive system
CPT/HCPCS: 36410; 36430; 43235; 43270; 71045; 71046; 71250; 76604; 76937; 80048; 80053; 81001; 82140; 82272; 82330; 82805; 83605; 83615; 83735; 84100; 84132; 84145; 84157; 85025; 85027; 85384; 85520; 85610; 85730; 86140; 86850; 86860; 86870; 86880; 86885; 86891; 86900; 86901; 86920; 87040; 87045; 87046; 87070; 87102; 87116; 87205; 87206; 87252; 87324; 87496; 87498; 87502; 87529; 87634; 87635; 87798; 88304; 89050; 93308; 94002; 94640; 94660

== ENCOUNTER 2022-05-19 15:36 | Inpatient (IN) | payer MEDICARE ==
[2022-05-19] MEDS ORDERED: IPRATROPIUM-ALBUTEROL 3 ML NEB INHALATION STA (15:55)
--- NOTE | 2022-05-19 16:15 | ED ---
SOB HPI - General Stated Complaint: Chest discomfort, SOB Time Seen by Provider: 05/19/22 15:37 Source: patient Limitations: no limitations - History of Present Illness Initial Comments: This patient is a 72-year-old man who presents to have evaluation for increasing shortness of breath, bilateral leg swelling, and reportedly having low oxygen saturations at the detention. The patient's history is notable for having had open heart surgery on April 19. At that time he reportedly had mitral valve repair secondary insufficiency, PFO repair, and three-vessel CABG. He was transferred from the hospital to detention 2 days ago. His postoperative course was reportedly complicated by having had a sacral ulcer/abscess that was debrided on May 08, and then undergoing an EGD on May 15 reportedly secondary to duodenal bleeding. The patient seemed to be having progressive orthopnea, some dyspnea, and leg swelling develop over the time from discharge until today. He is denying other complaints. No chest pain. He has not noted fevers. No problems with urination. He states his last bowel movement was earlier this afternoon and he did not note evidence of bleeding there. MD Complaint: shortness of breath Onset/Timin -: days(s) Severity scale (1-10): 0 Improves With: nothing Worsens With: lying flat Known History Of: other Treatments Prior to Arrival: oxygen, bronchodilator - Related Data Home Oxygen Therapy: Yes Home Medications Medication Instructions Recorded Confirmed Vit C/E/Zn/Coppr/Lutein/Zeaxan 2 cap PO DAILY@1500 02/19/17 05/19/22 [Preservision Areds 2 Softgel] Apixaban [Eliquis] 5 mg PO BID@0800,1700 11/09/21 05/19/22 Fluticasone/Umeclidin/Vilanter 1 puff INHALATION RT-HS@2100 11/09/21 05/19/22 [Trelegy Ellipta 100-62.5-25] Ferrous Sulfate [Iron (65 MG 325 mg PO BID@0800,1700 12/22/21 05/19/22 Elemental)] Ipratropium-Albuterol Nebulize 3 ml INHALATION RT-QID@08,12,,21 12/22/21 1 07/20/21 [Duoneb 0.5 mg-3 mg/3 ml Soln] PRN Arginaid 1 packet PO BID@0800,1700 05/19/22 05/19/22 Ascorbic Acid [Vitamin C] 500 mg PO DAILY@1200 05/19/22 05/19/22 Aspirin 81 mg PO DAILY@1200 05/19/22 05/19/22 Atorvastatin [Lipitor] 40 mg PO DAILY@1700 05/19/22 05/19/22 Benzocaine/Menthol Lozeng [Cepacol 1 lozenge MUCOUS MEM Q2HR PRN 05/19/22 05/19/22 lozenge] Bumetanide [BUMEX] 2 mg PO DAILY@0800 05/19/22 05/19/22 Collagenase [Santyl Ointment] 1 applic TOPICAL DAILY 05/19/22 05/19/22 Collagenase [Santyl Ointment] 1 applic TOPICAL DAILY PRN 05/19/22 05/19/22 Dapagliflozin Propanediol [Farxiga] 10 mg PO DAILY@0800 05/19/22 05/19/22 Glucerna Shake 1 can PO TID@0800,1200,1700 05/19/22 05/19/22 HYDROcodone/APAP 5-325MG [[place] 1 tab PO Q6HR PRN 05/19/22 05/19/22 5-325] INSULIN ASPART (NovoLOG) [NovoLOG See Protocol SQ ACHS 05/19/22 05/19/22 (formulary)] Lidocaine 5% Patch [Lidoderm 5% 2 patch TOPICAL DAILY@0800 05/19/22 05/19/22 Patch] Magnesium Hydroxide [Milk of 7,200 mg PO DAILY PRN 05/19/22 05/19/22 Magnesia Concentrate] Metoprolol Tartrate [Lopressor] 25 mg PO BID@0800,1700 05/19/22 05/19/22 Na Phos,M-B/Na Phos,Di-Ba [Fleet 133 ml RECTAL DAILY PRN 05/19/22 05/19/22 Adult] Pantoprazole [Protonix] 40 mg PO BID@0800,1700 05/19/22 05/19/22 Piperacillin-Tazobactam [Zosyn] 3.375 gm IVPB TID@0600,1400,2200 05/19/22 05/19/22 Potassium Chloride ER [K-Dur 10] 10 meq PO DAILY@1200 05/19/22 05/19/22 Sennosides-Docusate Sodium 2 tab PO HS PRN 05/19/22 05/19/22 [Senokot-S] Tamsulosin [Flomax] 0.4 mg PO DAILY@0800 05/19/22 05/19/22 guaiFENesin-DM 600/30MG [Mucinex 1 tab PO Q12HR PRN 05/19/22 05/19/22 Dm] Previous Rx's Medication Instructions Recorded Acetaminophen Tab [Tylenol] 650 mg PO Q6HR PRN tab 05/18/22 Ipratropium-Albuterol Nebulize 3 ml INHALATION RT-Q2H PRN each 05/18/22 [Duoneb 0.5 mg-3 mg/3 ml Soln] bisacodyL [Dulcolax] 10 mg RECTAL DAILY PRN suppositor 05/18/22 lisinopriL [Zestril] 5 mg PO DAILY@1200 tab 05/18/22 Allergies Allergy/AdvReac Type Severity Reaction Status Date / Time protamine Allergy Anaphylaxis Verified 05/19/22 18:21 Review of Systems ROS Statement: Those systems with pertinent positive or pertinent negative responses have been documented in the HPI. ROS Other: All systems not noted in ROS Statement are negative. Constitutional: Denies: fever, chills Respiratory: Reports: dyspnea. Denies: cough, hemoptysis Cardiovascular: Reports: orthopnea, edema. Denies: palpitations, syncope Gastrointestinal: Denies: abdominal pain, vomiting, diarrhea Genitourinary: Denies: dysuria, hematuria Musculoskeletal: Denies: back pain Skin: Denies: rash Neurological: Denies: headache, weakness, numbness Past Medical History Past Medical History: Atrial Fibrillation, Blood Disorder, COPD, Diabetes Mellitus, GI Bleed, Hearing Disorder / Deafness, Hyperlipidemia, Hypertension, Myocardial Infarction ([place]), Pneumonia Additional Past Medical History / Comment(s): Anemia, had GI Bleed 11/22, had 4 units of blood. Bilateral lower extremity edema. Hx [place] X2. Insomnia. Hx Pneumonia. Chronic back pain. Last Myocardial Infarction Date:: 11/2021 History of Any Multi-Drug Resistant Organisms: None Reported Past Surgical History: Back Surgery, Heart Catheterization With Stent, Joint Replacement, Orthopedic Surgery Additional Past Surgical History / Comment(s): BILATERAL KNEE REPLACEMENTS, BILATERAL SHOULDER SURGERY, ONE CARDIAC STENT, back surgery X2 (lumbar decompres eneida and fusion), BACK INJECTIONS, COLONOSCOPY, BILATERAL CATARACTS REMOVED WITH LENS IMPLANTS, Cardioversion. Past Anesthesia/Blood Transfusion Reactions: No Reported Reaction Date of Last Stent Placement:: 2000 Smoking Status: Current some day smoker - Past Family History Father Family Medical History: No Reported History Mother Family Medical History: No Reported History General Exam General appearance: alert, in no apparent distress Head exam: Present: atraumatic, normocephalic Eye exam: Present: normal appearance. Absent: scleral icterus, conjunctival injection Neck exam: Present: normal inspection, full ROM Respiratory exam: Present: wheezes (Trace expiratory wheeze), rales (Bilateral bases), other (The patient's surgical incision is well-healed, no abnormal erythema or warmth. No dyspnea or drainage no tenderness). Absent: respiratory distress, rhonchi, stridor, accessory muscle use, decreased breath sounds, prolonged expiratory Cardiovascular Exam: Present: regular rate, normal rhythm, normal heart sounds. Absent: systolic murmur, diastolic murmur, rubs, gallop GI/Abdominal exam: Present: soft. Absent: distended, tenderness, guarding, rebound, rigid, mass Extremities exam: Present: full ROM, pedal edema (There is bilateral pitting edema below the knees which is symmetric. No erythema or warmth.). Absent: tenderness, calf tenderness Back exam: Present: other (Patient's sacral decubitus ulcer has some fibrinous exudate. There is no erythema or warmth.) Neurological exam: Present: alert Skin exam: Present: warm, dry, intact, normal color. Absent: rash Course Vital Signs 05/19/22 05/19/22 05/19/22 16:07 17:33 18:00 Temperature 98.8 F Pulse Rate 86 80 84 Respiratory 20 18 Rate Blood Pressure 86/53 90/60 O2 Sat by Pulse 100 100 Oximetry 05/19/22 05/19/22 05/19/22 18:08 18:35 19:30 Temperature Pulse Rate 82 82 86 Respiratory 18 18 Rate Blood Pressure 122/62 98/53 O2 Sat by Pulse 100 100 Oximetry Medical Decision Making - Medical Decision Making Patient is 72-year-old man with history of open-heart surgery approximately one month ago for mitral valve repair and CABG. He does appear to have some degree of congestive heart failure. The case is discussed with clarence Dunham for the CT surgery service. Patient will be admitted to have CHF treatment. His recommendations are incorporated. - Lab Data Result diagrams: 05/23/22 06:14 05/23/22 06:14 Lab Results 05/19/22 05/19/22 05/19/22 Range/Units 16:13 16:13 16:13 WBC 7.8 (3.8-10.6) k/uL RBC 2.47 L (4.30-5.90) m/uL Hgb 7.5 L (13.0-17.5) gm/dL Hct 23.6 L (39.0-53.0) % MCV 95.6 (80.0-100.0) fL MCH 30.1 (25.0-35.0) pg MCHC 31.5 (31.0-37.0) g/dL RDW 18.0 H (11.5-15.5) % Plt Count 323 (150-450) k/uL MPV 8.3 Absolute Nucleated RBC (0.00-0.00) X 10*3/uL Neutrophils % 82 % Lymphocytes % 6 % Monocytes % 8 % Eosinophils % 2 % Basophils % 0 % Neutrophils # 6.4 (1.3-7.7) k/uL Lymphocytes # 0.4 L (1.0-4.8) k/uL Monocytes # 0.6 (0-1.0) k/uL Eosinophils # 0.1 (0-0.7) k/uL Basophils # 0.0 (0-0.2) k/uL NRBC/100 WBC Diff (0.0-0.0) /100 WBCS Hypochromasia Marked Poikilocytosis Moderate Anisocytosis Slight Macrocytosis Slight PT 11.4 (9.0-12.0) sec INR 1.1 (<1.2) APTT 25.7 (22.0-30.0) sec D-Dimer 1.85 H (<0.60) mg/L FEU Sodium 136 L (137-145) mmol/L Potassium 4.2 (3.5-5.1) mmol/L Chloride 104 (98-107) mmol/L Carbon Dioxide 34 H (22-30) mmol/L Anion Gap -2 mmol/L BUN 16 (9-20) mg/dL Creatinine 1.06 (0.66-1.25) mg/dL Est GFR (CKD-EPI)AfAm 81 (>60 ml/min/1.73 sqM) Est GFR (CKD-EPI)NonAf 70 (>60 ml/min/1.73 sqM) BUN/Creatinine Ratio (12.00-20.00) Ratio Glucose 139 H (74-99) mg/dL POC Glucose (mg/dL) (70-110) mg/dL POC Glu Tunnel Elastic Operator Zigzag ID Plasma Lactic Acid Nahum (0.7-2.0) mmol/L Calcium 7.4 L (8.4-10.2) mg/dL Magnesium (1.6-2.3) mg/dL Total Bilirubin 0.7 (0.2-1.3) mg/dL AST 46 (17-59) U/L ALT 45 (4-49) U/L Alkaline Phosphatase 76 (38-126) U/L Troponin I (0.000-0.034) ng/mL NT-Pro-B Natriuret Pep pg/mL Total Protein 4.9 L (6.3-8.2) g/dL Albumin 2.5 L (3.5-5.0) g/dL Urine Color Urine Appearance (Clear) Urine pH (5.0-8.0) Ur Specific [place] (1.001-1.035) Urine Protein (Negative) Urine Glucose (UA) (Negative) Urine Ketones (Negative) Urine Blood (Negative) Urine Nitrite (Negative) Urine Bilirubin (Negative) Urine Urobilinogen (<2.0) mg/dL Ur Leukocyte Esterase (Negative) Influenza Type A (PCR) (Not Detectd) Influenza Type B (PCR) (Not Detectd) RSV (PCR) (Not Detectd) SARS-CoV-2 (PCR) (Not Detectd) 05/19/22 05/19/22 05/19/22 Range/Units 16:13 16:13 16:13 WBC (3.8-10.6) k/uL RBC (4.30-5.90) m/uL Hgb (13.0-17.5) gm/dL Hct (39.0-53.0) % MCV (80.0-100.0) fL MCH (25.0-35.0) pg MCHC (31.0-37.0) g/dL RDW (11.5-15.5) % Plt Count (150-450) k/uL MPV Absolute Nucleated RBC (0.00-0.00) X 10*3/uL Neutrophils % % Lymphocytes % % Monocytes % % Eosinophils % % Basophils % % Neutrophils # (1.3-7.7) k/uL Lymphocytes # (1.0-4.8) k/uL Monocytes # (0-1.0) k/uL Eosinophils # (0-0.7) k/uL Basophils # (0-0.2) k/uL NRBC/100 WBC Diff (0.0-0.0) /100 WBCS Hypochromasia Poikilocytosis Anisocytosis Macrocytosis PT (9.0-12.0) sec INR (<1.2) APTT (22.0-30.0) sec D-Dimer (<0.60) mg/L FEU Sodium (137-145) mmol/L Potassium (3.5-5.1) mmol/L Chloride (98-107) mmol/L Carbon Dioxide (22-30) mmol/L Anion Gap mmol/L BUN (9-20) mg/dL Creatinine (0.66-1.25) mg/dL Est GFR (CKD-EPI)AfAm (>60 ml/min/1.73 sqM) Est GFR (CKD-EPI)NonAf (>60 ml/min/1.73 sqM) BUN/Creatinine Ratio (12.00-20.00) Ratio Glucose (74-99) mg/dL POC Glucose (mg/dL) (70-110) mg/dL POC Glu Tunnel Elastic Operator Zigzag ID Plasma Lactic Acid N[place]um 0.9 (0.7-2.0) mmol/L Calcium (8.4-10.2) mg/dL Magnesium (1.6-2.3) mg/dL Total Bilirubin (0.2-1.3) mg/dL AST (17-59) U/L ALT (4-49) U/L Alkaline Phosphatase (38-126) U/L Troponin I 0.039 H* (0.000-0.034) ng/mL NT-Pro-B Natriuret Pep 71125 pg/mL Total Protein (6.3-8.2) g/dL Albumin (3.5-5.0) g/dL Urine Color Urine Appearance (Clear) Urine pH (5.0-8.0) Ur Specific [place] (1.001-1.035) Urine Protein (Negative) Urine Glucose (UA) (Negative) Urine Ketones (Negative) Urine Blood (Negative) Urine Nitrite (Negative) Urine Bilirubin (Negative) Urine Urobilinogen (<2.0) mg/dL Ur Leukocyte Esterase (Negative) Influenza Type A (PCR) (Not Detectd) Influenza Type B (PCR) (Not Detectd) RSV (PCR) (Not Detectd) SARS-CoV-2 (PCR) (Not Detectd) 05/19/22 05/19/22 05/20/22 Range/Units 16:13 18:40 07:53 WBC (3.8-10.6) k/uL RBC (4.30-5.90) m/uL Hgb (13.0-17.5) gm/dL Hct (39.0-53.0) % MCV (80.0-100.0) fL MCH (25.0-35.0) pg MCHC (31.0-37.0) g/dL RDW (11.5-15.5) % Plt Count (150-450) k/uL MPV Absolute Nucleated RBC (0.00-0.00) X 10*3/uL Neutrophils % % Lymphocytes % % Monocytes % % Eosinophils % % Basophils % % Neutrophils # (1.3-7.7) k/uL Lymphocytes # (1.0-4.8) k/uL Monocytes # (0-1.0) k/uL Eosinophils # (0-0.7) k/uL Basophils # (0-0.2) k/uL NRBC/100 WBC Diff (0.0-0.0) /100 WBCS Hypochromasia Poikilocytosis Anisocytosis Macrocytosis PT (9.0-12.0) sec INR (<1.2) APTT (22.0-30.0) sec D-Dimer (<0.60) mg/L FEU Sodium (137-145) mmol/L Potassium (3.5-5.1) mmol/L Chloride (98-107) mmol/L Carbon Dioxide (22-30) mmol/L Anion Gap mmol/L BUN (9-20) mg/dL Creatinine (0.66-1.25) mg/dL Est GFR (CKD-EPI)AfAm (>60 ml/min/1.73 sqM) Est GFR (CKD-EPI)NonAf (>60 ml/min/1.73 sqM) BUN/Creatinine Ratio (12.00-20.00) Ratio Glucose (74-99) mg/dL POC Glucose (mg/dL) 126 H (70-110) mg/dL POC Glu Tunnel Elastic Operator Zigzag ID Tran Nathan Plasma Lactic Acid [place]um (0.7-2.0) mmol/L Calcium (8.4-10.2) mg/dL Magnesium (1.6-2.3) mg/dL Total Bilirubin (0.2-1.3) mg/dL AST (17-59) U/L ALT (4-49) U/L Alkaline Phosphatase (38-126) U/L Troponin I (0.000-0.034) ng/mL NT-Pro-B Natriuret Pep pg/mL Total Protein (6.3-8.2) g/dL Albumin (3.5-5.0) g/dL Urine Color Light Yellow Urine Appearance Clear (Clear) Urine pH 5.0 (5.0-8.0) Ur Specific [place] 1.013 (1.001-1.035) Urine Protein Negative (Negative) Urine Glucose (UA) 4+ H (Negative) Urine Ketones Negative (Negative) Urine Blood Negative (Negative) Urine Nitrite Negative (Negative) Urine Bilirubin Negative (Negative) Urine Urobilinogen <2.0 (<2.0) mg/dL Ur Leukocyte Esterase Negative (Negative) Influenza Type A (PCR) Detected A (Not Detectd) Influenza Type B (PCR) Not Detected (Not Detectd) RSV (PCR) Not Detected (Not Detectd) SARS-CoV-2 (PCR) Not Detected (Not Detectd) 05/20/22 05/20/22 05/20/22 Range/Units 07:56 07:56 12:31 WBC 7.1 (3.8-10.6) k/uL RBC 2.64 L (4.30-5.90) m/uL Hgb 8.0 L (13.0-17.5) gm/dL Hct 26.0 L (39.0-53.0) % MCV 98.6 (80.0-100.0) fL MCH 30.3 (25.0-35.0) pg MCHC 30.7 L (31.0-37.0) g/dL RDW 17.7 H (11.5-15.5) % Plt Count 314 (150-450) k/uL MPV 9.0 Absolute Nucleated RBC (0.00-0.00) X 10*3/uL Neutrophils % % Lymphocytes % % Monocytes % % Eosinophils % % Basophils % % Neutrophils # (1.3-7.7) k/uL Lymphocytes # (1.0-4.8) k/uL Monocytes # (0-1.0) k/uL Eosinophils # (0-0.7) k/uL Basophils # (0-0.2) k/uL NRBC/100 WBC Diff (0.0-0.0) /100 WBCS Hypochromasia Marked Poikilocytosis Slight Anisocytosis Slight Macrocytosis Slight PT (9.0-12.0) sec INR (<1.2) APTT (22.0-30.0) sec D-Dimer (<0.60) mg/L FEU Sodium 139 (137-145) mmol/L Potassium 4.2 (3.5-5.1) mmol/L Chloride 104 (98-107) mmol/L Carbon Dioxide 34 H (22-30) mmol/L Anion Gap 1 mmol/L BUN 13 (9-20) mg/dL Creatinine 0.94 (0.66-1.25) mg/dL Est GFR (CKD-EPI)AfAm >90 (>60 ml/min/1.73 sqM) Est GFR (CKD-EPI)NonAf 81 (>60 ml/min/1.73 sqM) BUN/Creatinine Ratio (12.00-20.00) Ratio Glucose 125 H (74-99) mg/dL POC Glucose (mg/dL) 174 H (70-110) mg/dL POC Glu Tunnel Elastic Operator Zigzag ID Tran Nathan Plasma Lactic Acid [place]um (0.7-2.0) mmol/L Calcium 7.7 L (8.4-10.2) mg/dL Magnesium 2.1 (1.6-2.3) mg/dL Total Bilirubin (0.2-1.3) mg/dL AST (17-59) U/L ALT (4-49) U/L Alkaline Phosphatase (38-126) U/L Troponin I (0.000-0.034) ng/mL NT-Pro-B Natriuret Pep pg/mL Total Protein (6.3-8.2) g/dL Albumin (3.5-5.0) g/dL Urine Color Urine Appearance (Clear) Urine pH (5.0-8.0) Ur Specific [place] (1.001-1.035) Urine Protein (Negative) Urine Glucose (UA) (Negative) Urine Ketones (Negative) Urine Blood (Negative) Urine Nitrite (Negative) Urine Bilirubin (Negative) Urine Urobilinogen (<2.0) mg/dL Ur Leukocyte Esterase (Negative) Influenza Type A (PCR) (Not Detectd) Influenza Type B (PCR) (Not Detectd) RSV (PCR) (Not Detectd) SARS-CoV-2 (PCR) (Not Detectd) 05/20/22 05/20/22 05/21/22 Range/Units 17:22 19:51 05:52 WBC (3.8-10.6) k/uL RBC (4.30-5.90) m/uL Hgb (13.0-17.5) gm/dL Hct (39.0-53.0) % MCV (80.0-100.0) fL MCH (25.0-35.0) pg MCHC (31.0-37.0) g/dL RDW (11.5-15.5) % Plt Count (150-450) k/uL MPV Absolute Nucleated RBC (0.00-0.00) X 10*3/uL Neutrophils % % Lymphocytes % % Monocytes % % Eosinophils % % Basophils % % Neutrophils # (1.3-7.7) k/uL Lymphocytes # (1.0-4.8) k/uL Monocytes # (0-1.0) k/uL Eosinophils # (0-0.7) k/uL Basophils # (0-0.2) k/uL NRBC/100 WBC Diff (0.0-0.0) /100 WBCS Hypochromasia Poikilocytosis Anisocytosis Macrocytosis PT (9.0-12.0) sec INR (<1.2) APTT (22.0-30.0) sec D-Dimer (<0.60) mg/L FEU Sodium (137-145) mmol/L Potassium (3.5-5.1) mmol/L Chloride (98-107) mmol/L Carbon Dioxide (22-30) mmol/L Anion Gap mmol/L BUN (9-20) mg/dL Creatinine (0.66-1.25) mg/dL Est GFR (CKD-EPI)AfAm (>60 ml/min/1.73 sqM) Est GFR (CKD-EPI)NonAf (>60 ml/min/1.73 sqM) BUN/Creatinine Ratio (12.00-20.00) Ratio Glucose (74-99) mg/dL POC Glucose (mg/dL) 320 H 217 H 149 H (70-110) mg/dL POC Glu Tunnel Elastic Operator Zigzag ID Venita, Tran Thorngate, Lizbeth Thorngate, Lizbeth Plasma Lactic Acid Nahum (0.7-2.0) mmol/L Calcium (8.4-10.2) mg/dL Magnesium (1.6-2.3) mg/dL Total Bilirubin (0.2-1.3) mg/dL AST (17-59) U/L ALT (4-49) U/L Alkaline Phosphatase (38-126) U/L Troponin I (0.000-0.034) ng/mL NT-Pro-B Natriuret Pep pg/mL Total Protein (6.3-8.2) g/dL Albumin (3.5-5.0) g/dL Urine Color Urine Appearance (Clear) Urine pH (5.0-8.0) Ur Specific [place] (1.001-1.035) Urine Protein (Negative) Urine Glucose (UA) (Negative) Urine Ketones (Negative) Urine Blood (Negative) Urine Nitrite (Negative) Urine Bilirubin (Negative) Urine Urobilinogen (<2.0) mg/dL Ur Leukocyte Esterase (Negative) Influenza Type A (PCR) (Not Detectd) Influenza Type B (PCR) (Not Detectd) RSV (PCR) (Not Detectd) SARS-CoV-2 (PCR) (Not Detectd) 05/21/22 05/21/22 05/21/22 Range/Units 06:10 06:10 11:24 WBC 9.90 (3.8-10.6) k/uL RBC 2.49 L (4.30-5.90) m/uL Hgb 7.4 L (13.0-17.5) gm/dL Hct 24.4 L (39.0-53.0) % MCV 98.0 H (80.0-100.0) fL MCH 29.7 (25.0-35.0) pg MCHC 30.3 L (31.0-37.0) g/dL RDW 18.2 H (11.5-15.5) % Plt Count 300 (150-450) k/uL MPV 9.8 Absolute Nucleated RBC 0 (0.00-0.00) X 10*3/uL Neutrophils % % Lymphocytes % % Monocytes % % Eosinophils % % Basophils % % Neutrophils # (1.3-7.7) k/uL Lymphocytes # (1.0-4.8) k/uL Monocytes # (0-1.0) k/uL Eosinophils # (0-0.7) k/uL Basophils # (0-0.2) k/uL NRBC/100 WBC Diff 0 (0.0-0.0) /100 WBCS Hypochromasia Poikilocytosis Anisocytosis Macrocytosis PT (9.0-12.0) sec INR (<1.2) APTT (22.0-30.0) sec D-Dimer (<0.60) mg/L FEU Sodium 141 (137-145) mmol/L Potassium 4.2 (3.5-5.1) mmol/L Chloride 103 (98-107) mmol/L Carbon Dioxide 29.5 H (22-30) mmol/L Anion Gap 8.50 L mmol/L BUN 12.6 (9-20) mg/dL Creatinine 1.1 (0.66-1.25) mg/dL Est GFR (CKD-EPI)AfAm 76.8 (>60 ml/min/1.73 sqM) Est GFR (CKD-EPI)NonAf 66.2 (>60 ml/min/1.73 sqM) BUN/Creatinine Ratio 11.45 L (12.00-20.00) Ratio Glucose 138 H (74-99) mg/dL POC Glucose (mg/dL) 226 H (70-110) mg/dL POC Glu Tunnel Elastic Operator Zigzag ID Sarah Jackson Plasma Lactic Acid N[place]um (0.7-2.0) mmol/L Calcium 8.2 L (8.4-10.2) mg/dL Magnesium 2.0 (1.6-2.3) mg/dL Total Bilirubin (0.2-1.3) mg/dL AST (17-59) U/L ALT (4-49) U/L Alkaline Phosphatase (38-126) U/L Troponin I (0.000-0.034) ng/mL NT-Pro-B Natriuret Pep pg/mL Total Protein (6.3-8.2) g/dL Albumin (3.5-5.0) g/dL Urine Color Urine Appearance (Clear) Urine pH (5.0-8.0) Ur Specific [place] (1.001-1.035) Urine Protein (Negative) Urine Glucose (UA) (Negative) Urine Ketones (Negative) Urine Blood (Negative) Urine Nitrite (Negative) Urine Bilirubin (Negative) Urine Urobilinogen (<2.0) mg/dL Ur Leukocyte Esterase (Negative) Influenza Type A (PCR) (Not Detectd) Influenza Type B (PCR) (Not Detectd) RSV (PCR) (Not Detectd) SARS-CoV-2 (PCR) (Not Detectd) 05/21/22 05/21/22 05/22/22 Range/Units 17:19 20:36 05:48 WBC (3.8-10.6) k/uL RBC (4.30-5.90) m/uL Hgb (13.0-17.5) gm/dL Hct (39.0-53.0) % MCV (80.0-100.0) fL MCH (25.0-35.0) pg MCHC (31.0-37.0) g/dL RDW (11.5-15.5) % Plt Count (150-450) k/uL MPV Absolute Nucleated RBC (0.00-0.00) X 10*3/uL Neutrophils % % Lymphocytes % % Monocytes % % Eosinophils % % Basophils % % Neutrophils # (1.3-7.7) k/uL Lymphocytes # (1.0-4.8) k/uL Monocytes # (0-1.0) k/uL Eosinophils # (0-0.7) k/uL Basophils # (0-0.2) k/uL NRBC/100 WBC Diff (0.0-0.0) /100 WBCS Hypochromasia Poikilocytosis Anisocytosis Macrocytosis PT (9.0-12.0) sec INR (<1.2) APTT (22.0-30.0) sec D-Dimer (<0.60) mg/L FEU Sodium 141 (137-145) mmol/L Potassium 4.3 (3.5-5.1) mmol/L Chloride 102 (98-107) mmol/L Carbon Dioxide 28.8 H (22-30) mmol/L Anion Gap 10.20 mmol/L BUN 11.6 (9-20) mg/dL Creatinine 0.9 (0.66-1.25) mg/dL Est GFR (CKD-EPI)AfAm 97.9 (>60 ml/min/1.73 sqM) Est GFR (CKD-EPI)NonAf 84.4 (>60 ml/min/1.73 sqM) BUN/Creatinine Ratio 12.89 (12.00-20.00) Ratio Glucose 153 H (74-99) mg/dL POC Glucose (mg/dL) 171 H 190 H (70-110) mg/dL POC Glu Tunnel Elastic Operator Zigzag Shalonda Naylor Gregory Plasma Lactic Acid Nahum (0.7-2.0) mmol/L Calcium 8.1 L (8.4-10.2) mg/dL Magnesium (1.6-2.3) mg/dL Total Bilirubin (0.2-1.3) mg/dL AST (17-59) U/L ALT (4-49) U/L Alkaline Phosphatase (38-126) U/L Troponin I (0.000-0.034) ng/mL NT-Pro-B Natriuret Pep pg/mL Total Protein (6.3-8.2) g/dL Albumin (3.5-5.0) g/dL Urine Color Urine Appearance (Clear) Urine pH (5.0-8.0) Ur Specific [place] (1.001-1.035) Urine Protein (Negative) Urine Glucose (UA) (Negative) Urine Ketones (Negative) Urine Blood (Negative) Urine Nitrite (Negative) Urine Bilirubin (Negative) Urine Urobilinogen (<2.0) mg/dL Ur Leukocyte Esterase (Negative) Influenza Type A (PCR) (Not Detectd) Influenza Type B (PCR) (Not Detectd) RSV (PCR) (Not Detectd) SARS-CoV-2 (PCR) (Not Detectd) 05/22/22 05/22/22 Range/Units 06:04 07:20 WBC (3.8-10.6) k/uL RBC (4.30-5.90) m/uL Hgb (13.0-17.5) gm/dL Hct (39.0-53.0) % MCV (80.0-100.0) fL MCH (25.0-35.0) pg MCHC (31.0-37.0) g/dL RDW (11.5-15.5) % Plt Count (150-450) k/uL MPV Absolute Nucleated RBC (0.00-0.00) X 10*3/uL Neutrophils % % Lymphocytes % % Monocytes % % Eosinophils % % Basophils % % Neutrophils # (1.3-7.7) k/uL Lymphocytes # (1.0-4.8) k/uL Monocytes # (0-1.0) k/uL Eosinophils # (0-0.7) k/uL Basophils # (0-0.2) k/uL NRBC/100 WBC Diff (0.0-0.0) /100 WBCS Hypochromasia Poikilocytosis Anisocytosis Macrocytosis PT (9.0-12.0) sec INR (<1.2) APTT (22.0-30.0) sec D-Dimer (<0.60) mg/L FEU Sodium (137-145) mmol/L Potassium (3.5-5.1) mmol/L Chloride (98-107) mmol/L Carbon Dioxide (22-30) mmol/L Anion Gap mmol/L BUN (9-20) mg/dL Creatinine (0.66-1.25) mg/dL Est GFR (CKD-EPI)AfAm (>60 ml/min/1.73 sqM) Est GFR (CKD-EPI)NonAf (>60 ml/min/1.73 sqM) BUN/Creatinine Ratio (12.00-20.00) Ratio Glucose (74-99) mg/dL POC Glucose (mg/dL) 159 H 150 H (70-110) mg/dL POC Glu Tunnel Elastic Operator Zigzag ID Angeles Jones Plasma Lactic Acid N[place]um (0.7-2.0) mmol/L Calcium (8.4-10.2) mg/dL Magnesium (1.6-2.3) mg/dL Total Bilirubin (0.2-1.3) mg/dL AST (17-59) U/L ALT (4-49) U/L Alkaline Phosphatase (38-126) U/L Troponin I (0.000-0.034) ng/mL NT-Pro-B Natriuret Pep pg/mL Total Protein (6.3-8.2) g/dL Albumin (3.5-5.0) g/dL Urine Color Urine Appearance (Clear) Urine pH (5.0-8.0) Ur Specific [place] (1.001-1.035) Urine Protein (Negative) Urine Glucose (UA) (Negative) Urine Ketones (Negative) Urine Blood (Negative) Urine Nitrite (Negative) Urine Bilirubin (Negative) Urine Urobilinogen (<2.0) mg/dL Ur Leukocyte Esterase (Negative) Influenza Type A (PCR) (Not Detectd) Influenza Type B (PCR) (Not Detectd) RSV (PCR) (Not Detectd) SARS-CoV-2 (PCR) (Not Detectd) - EKG Data -: EKG Interpreted by Nh EKG shows normal: sinus rhythm, axis (Normal), intervals (There is an intraventricular conduction delay. QRS duration is 121 ms.), QRS complexes (Intraventricular conduction delay.) Rate: normal (Rate 82 bpm) Interpretation: nonspecific ST-T wave changes Critical Care Time Critical Care Time: Yes (30 minutes) Disposition Clinical Impression: Congestive heart failure, Anemia, Influenza A, Stage III pressure ulcer of sacral region Disposition: ADMITTED IP TO THIS HOSP Condition: Fair Is patient prescribed a controlled substance at d/c from ED?: No
[2022-05-19 16:40] LABS: Anisocytosis Slight; Basophils % (A) 0 %; Eosinophils # (A) 0.1 k/uL (0-0.7); Eosinophils % (A) 2 %; HCT 23.6 % (39.0-53.0); HGB 7.5 gm/dL (13.0-17.5); Hypochromasia Marked; Lymphocytes # (A) 0.4 k/uL (1.0-4.8); Lymphocytes % (A) 6 %; MCH 30.1 pg (25.0-35.0); MCHC 31.5 g/dL (31.0-37.0); MCV 95.6 fL (80.0-100.0); Macrocytosis Slight; Mean Platelet Volume 8.3; Monocytes # (A) 0.6 k/uL (0-1.0); Monocytes % (A) 8 %; Neutrophils # (A) 6.4 k/uL (1.3-7.7); Neutrophils % (A) 82 %; Platelet Count 323 k/uL (150-450); Poikilocytosis Moderate; RBC 2.47 m/uL (4.30-5.90); WBC 7.8 k/uL (3.8-10.6)
[2022-05-19 16:49] LABS: Albumin 2.5 g/dL (3.5-5.0); Calcium 7.4 mg/dL (8.4-10.2); Potassium 4.2 mmol/L (3.5-5.1); Total Bilirubin 0.7 mg/dL (0.2-1.3); Total Protein 4.9 g/dL (6.3-8.2)
[2022-05-19 16:59] LABS: INR 1.1 (<1.2); Partial Thromboplastin Time 25.7 sec (22.0-30.0); Prothrombin Time 11.4 sec (9.0-12.0)
--- NOTE | 2022-05-19 17:45 | XR ---
EXAMINATION TYPE: XR chest 2V DATE OF EXAM: 05/19/2022 5:19 PM COMPARISON: Chest radiographs from 05/18/2022 TECHNIQUE: XR chest 2V Frontal and lateral views of the chest. CLINICAL INDICATION:Male, 72 years old with history of difficulty breathing; FINDINGS: Lungs/Pleura: No evidence of focal consolidation or pneumothorax. Blunting of the costophrenic angles is present. Pulmonary vascularity: Unremarkable. Heart/mediastinum: Cardiomediastinal silhouette is unremarkable. Post valve repair changes. Musculoskeletal: No acute osseous pathology. Midline sternotomy wires are noted. IMPRESSION: Cardiomegaly, pulmonary vascular congestion and bilateral pleural effusions. Correlate with BNP for c ongestive heart failure.
[2022-05-19] MEDS ORDERED: ASPIRIN 81 MG PO STA (18:42)
[2022-05-19] MEDS ORDERED: FUROSEMIDE 10 MG/ML 4 ML VIAL IV STA (18:42)
[2022-05-19] MEDS ORDERED: NITROGLYCERIN OINT 1 INCH/GM PACKET TOPICAL STA (18:42)
[2022-05-19] MEDS ORDERED: MORPHINE SULFATE 4 MG/ML SYRINGE IV STA (18:48)
[2022-05-19 18:57] LABS: Appearance,Urine Clear (Clear); Bilirubin,Urine Negative (Negative); Blood,Urine Negative (Negative); Color,Urine Light Yellow; Glucose,Urine (UA) 4+ (Negative); Ketones,Urine Negative (Negative); Leukocyte Esterase,Urine Negative (Negative); Nitrite,Urine Negative (Negative); Protein,Urine Negative (Negative); Specific Gravity,Urine 1.013 (1.001-1.035); Urobilinogen,Urine <2.0 mg/dL (<2.0)
[2022-05-19] MEDS ORDERED: BENZOCAINE/MENTHOL LOZENG 1 EACH LOZENGE MUCOUS MEM PRN (19:53)
[2022-05-19] MEDS ORDERED: guaiFENesin-DM 600/30MG 1 EACH TAB.ER.12H PO PRN (19:53)
[2022-05-19] MEDS ORDERED: NA PHOS,M-B/NA PHOS,DI-BA 133 ML ENEMA RECTAL PRN (19:53)
[2022-05-19] MEDS ORDERED: bisacodyL 10 MG SUPP RECTAL PRN (19:53)
[2022-05-19] MEDS ORDERED: SENNOSIDES-DOCUSATE SODIUM 1 EACH TAB PO PRN (19:53)
[2022-05-19] MEDS ORDERED: COLLAGENASE 250 UNIT/GM OINTMENT 30 GM TUBE TOPICAL PRN (19:53)
[2022-05-19] MEDS ORDERED: MAGNESIUM HYDROXIDE 2,400 MG/10 ML CUP PO PRN (19:53)
[2022-05-19] MEDS ORDERED: IPRATROPIUM-ALBUTEROL 3 ML NEB INHALATION PRN (21:00)
[2022-05-19] MEDS ORDERED: IPRATROPIUM 0.5 MG/2.5 ML NEBU INHALATION SCH (21:00)
[2022-05-19] MEDS: SYMBICORT 80-4.5 MCG INHALER INHALATION SCH (21:17)
[2022-05-19] MEDS: FUROSEMIDE 10 MG/ML 4 ML VIAL IV SCH (22:22)
[2022-05-20] MEDS: IPRATROPIUM-ALBUTEROL 3 ML NEB INHALATION PRN (01:17)
[2022-05-20] MEDS: SYMBICORT 80-4.5 MCG INHALER INHALATION SCH ×2 (06:56→19:02)
[2022-05-20] MEDS: IPRATROPIUM-ALBUTEROL 3 ML NEB INHALATION SCH ×4 (06:56→19:02)
[2022-05-20] MEDS ORDERED: DEXTROSE 50% SYRINGE 50 ML IVP PRN ×2 (07:50)
--- NOTE | 2022-05-20 07:55 | XR ---
EXAMINATION TYPE: XR chest 1V portable DATE OF EXAM: 05/20/2022 7:44 AM COMPARISON: Chest radiographs from 05/19/2022 TECHNIQUE: XR chest 1V portable Portable AP radiograph of the chest. CLINICAL INDICATION:Male, 72 years old with history of pleural effusion; FINDINGS: Lungs/Pleura: Blunting of the costophrenic angles with right-sided airspace opacities. Pulmonary vascularity: Unremarkable. Heart/mediastinum: Cardiomediastinal silhouette is enlarged and stable. 2. Musculoskeletal: No acute osseous pathology. IMPRESSION: Bilateral pleural effusions with right-sided airspace opacities which could represent atelectasis gio sabas developing pneumonia. Clinical correlation.
[2022-05-20 07:56] LABS: Glucose,Whole Blood 126 mg/dL (70-110)
[2022-05-20] MEDS ORDERED: NON FORMULARY DRUG (Glucerna Shake 1 CAN Ml) PO SCH (08:00)
[2022-05-20] MEDS ORDERED: ARGINAID PO SCH (08:00)
[2022-05-20 08:10] LABS: Anisocytosis Slight; Hypochromasia Marked; MCH 30.3 pg (25.0-35.0); MCHC 30.7 g/dL (31.0-37.0); MCV 98.6 fL (80.0-100.0); Macrocytosis Slight; Platelet Count 314 k/uL (150-450); Poikilocytosis Slight; RBC 2.64 m/uL (4.30-5.90); RDW 17.7 % (11.5-15.5); WBC 7.1 k/uL (3.8-10.6)
[2022-05-20 08:23] LABS: African American GFR (CKD) >90 (>60 ml/min/1.73 sqM); Anion Gap 1 mmol/L; Blood Urea Nitrogen 13 mg/dL (9-20); Calcium 7.7 mg/dL (8.4-10.2); Carbon Dioxide 34 mmol/L (22-30); Chloride 104 mmol/L (98-107); Glucose 125 mg/dL (74-99); Magnesium 2.1 mg/dL (1.6-2.3); Non-African American GFR(CKD) 81 (>60 ml/min/1.73 sqM); Potassium 4.2 mmol/L (3.5-5.1); Sodium 139 mmol/L (137-145)
[2022-05-20] MEDS: APIXABAN 5 MG TAB PO SCH ×2 (08:43→16:36)
[2022-05-20] MEDS: PIPERACILLIN-TAZOBACTAM 3.375 GM in SODIUM CHLORIDE 0.9% 100 ML IVPB SCH ×2 (08:43→16:35)
[2022-05-20] MEDS: TAMSULOSIN 0.4 MG CAP.ER.24H PO SCH (08:43)
[2022-05-20] MEDS: FUROSEMIDE 10 MG/ML 4 ML VIAL IV SCH ×2 (08:43→20:19)
[2022-05-20] MEDS: METOPROLOL TARTRATE 25 MG TAB PO SCH ×2 (08:44→16:36)
[2022-05-20] MEDS: PANTOPRAZOLE 40 MG TABLET PO SCH ×2 (08:44→16:36)
[2022-05-20] MEDS: FERROUS SULFATE 325 MG TAB PO SCH ×2 (08:44→16:36)
--- NOTE | 2022-05-20 08:52 | P.GSCN ---
History of Present Illness Consult date: 05/20/22 Reason for Consult: Known to us from recent heart surgery Requesting physician: Edwardo Dyer History of present illness: This is a 72-year-old gentleman well known to our service who follows outpatient with Dr. Leal for primary care Dr. Man for cardiology. He has an extensive previous medical history including severe mitral valve regurgitation status post mitral valve repair as well as coronary artery disease with previous PCI and non-STEMI status post CABG 3 with closure of patent foramen ovale 04/19/2022, paroxysmal atrial fibrillation with previous cardioversion on Eliquis outpatient for anticoagulation status post modified Castanon maze and ligation of the left atrial appendage, chronic systolic congestive heart failure and ischemic cardiomyopathy with EF 40-45%, hypertension, hyperlipidemia, right internal carotid artery stenosis, acute on chronic blood loss anemia, chronic renal failure, type 2 diabetes, severe COPD, and medical debility. The patient was discharged to [facility] subacute rehab on 05/18/2022 after spending 29 days in the hospital after surgery. 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 He was discharged on baby aspirin, Eliquis, oral Bumex, Lopressor, lisinopril, Lipitor, and IV Zosyn at the request of infectious disease for 1 week. Unfortunately he developed progressive shortness of breath and hypoxemia requiring initiation of oxygen therapy. He also complained of some mild chest pain which is expected after open heart surgery and which he had while hospitalized especially with coughing. EMS was called and he was transported back to [facility] emergency room yesterday. He was placed on supplemental oxygen and given IV Lasix with excellent diuresis. His oxygen was weaned down to 3 L with oxygen saturations in the mid 90s. Lab work revealed no leukocytosis with WBC 7.8, stable hemoglobin 7.5 d-dimer at 1.85 and troponin 0.039 both likely inconsequential in a result from recent heart surgery, BUN 16, creatinine 1.06 with a GFR 70, lactic acid 0.9, and BNP 10,700. Patient's Covid PCR was negative, influenza test demonstrated positivity for influenza A. Chest x-ray demonstrated pulmonary vascular congestion with bilateral pleural effusions. The patient was admitted for observation for treatment of congestive heart failure with consultation placed to cardiology as well as cardiothoracic surgery. Review of Systems Review of systems was completed and was negative except as noted - Cardiovascular Reports as per HPI, Reports chest pain, Reports dyspnea on exertion, Reports leg edema Past Medical History Past Medical History: Atrial Fibrillation, Blood Disorder, Coronary Artery Disease (CAD), Chest Pain / Angina, Heart Failure, COPD, Diabetes Mellitus, GI Bleed, Hearing Disorder / Deafness, Hyperlipidemia, Hypertension, Myocardial Infarction ([place]), Pneumonia, Renal Disease Additional Past Medical History / Comment(s): Anemia, had GI Bleed 11/22, bleeding duodenal AVM status post argon plasma coagulation and ligation 05/15/22. Insomnia. Chronic back pain. Last Myocardial Infarction Date:: 11/2021 History of Any Multi-Drug Resistant Organisms: None Reported Past Surgical History: Back Surgery, Coronary Bypass/CABG, Heart Catheterization With Stent, Joint Replacement, Orthopedic Surgery Additional Past Surgical History / Comment(s): BILATERAL KNEE REPLACEMENTS, BILATERAL SHOULDER SURGERY, ONE CARDIAC STENT, back surgery X2 (lumbar decompression and fusion), BACK INJECTIONS, COLONOSCOPY, BILATERAL CATARACTS REMOVED WITH LENS IMPLANTS, Cardioversion. CABG 3/mitral valve repair/closure of PFO/Castanon maze/left atrial appendage ligation 04/19/2022, left sided thoracentesis 04/30/2022 and 05/04/2022, EGD 05/08/2022, EGD with argon plasma coagulation and Endo clip ligation 05/15/2022 Past Anesthesia/Blood Transfusion Reactions: No Reported Reaction Date of Last Stent Placement:: 2000 Past Psychological History: No Psychological Hx Reported Smoking Status: Former smoker Past Alcohol Use History: None Reported Past Drug Use History: None Reported - Past Family History Father Family Medical History: No Reported History Mother Family Medical History: No Reported History Medications and Allergies Home Medications Medication Instructions Recorded Confirmed Type Vit C/E/Zn/Coppr/Lutein/Zeaxan 2 cap PO DAILY@1500 02/19/17 05/19/22 History [Preservision Areds 2 Softgel] Apixaban [Eliquis] 5 mg PO BID@0800,1700 11/09/21 05/19/22 History Fluticasone/Umeclidin/Vilanter 1 puff INHALATION RT-HS@2100 11/09/21 05/19/22 History [Carlos Cowartta 100-62.5-25] Ferrous Sulfate [Iron (65 MG 325 mg PO BID@0800,1700 12/22/21 05/19/22 History Elemental)] Ipratropium-Albuterol Nebulize 3 ml INHALATION RT-QID@08,,,12/22/21 05/19/22 History [Duoneb 0.5 mg-3 mg/3 ml Soln] PRN Acetaminophen Tab [Tylenol] 650 mg PO Q6HR PRN tab 05/18/22 05/19/22 Rx Ipratropium-Albuterol Nebulize 3 ml INHALATION RT-Q2H PRN each 05/18/22 05/19/22 Rx [Duoneb 0.5 mg-3 mg/3 ml Soln] bisacodyL [Dulcolax] 10 mg RECTAL DAILY PRN suppositor 05/18/22 05/19/22 Rx lisinopriL [Zestril] 5 mg PO DAILY@1200 tab 05/18/22 05/19/22 Rx Arginaid 1 packet PO BID@0800,1700 05/19/22 05/19/22 History Ascorbic Acid [Vitamin C] 500 mg PO DAILY@1200 05/19/22 05/19/22 History Aspirin 81 mg PO DAILY@1200 05/19/22 05/19/22 History Atorvastatin [Lipitor] 40 mg PO DAILY@1700 05/19/22 05/19/22 History Benzocaine/Menthol Lozeng [Cepacol 1 lozenge MUCOUS MEM Q2HR PRN 05/19/22 05/19/22 History lozenge] Bumetanide [BUMEX] 2 mg PO DAILY@0800 05/19/22 05/19/22 History Collagenase [Santyl Ointment] 1 applic TOPICAL DAILY 05/19/22 05/19/22 History Collagenase [Santyl Ointment] 1 applic TOPICAL DAILY PRN 05/19/22 05/19/22 History Dapagliflozin Propanediol [Farxiga] 10 mg PO DAILY@0800 05/19/22 05/19/22 History Glucerna Shake 1 can PO TID@0800,1200,1700 05/19/22 05/19/22 History HYDROcodone/APAP 5-325MG [[place] 1 tab PO Q6HR PRN 05/19/22 05/19/22 History 5-325] INSULIN ASPART (NovoLOG) [NovoLOG See Protocol SQ ACHS 05/19/22 05/19/22 History (formulary)] Lidocaine 5% Patch [Lidoderm 5% 2 patch TOPICAL DAILY@0800 05/19/22 05/19/22 History Patch] Magnesium Hydroxide [Milk of 7,200 mg PO DAILY PRN 05/19/22 05/19/22 History Magnesia Concentrate] Metoprolol Tartrate [Lopressor] 25 mg PO BID@0800,1700 05/19/22 05/19/22 History Na Phos,M-B/Na Phos,Di-Ba [Fleet 133 ml RECTAL DAILY PRN 05/19/22 05/19/22 History Adult] Pantoprazole [Protonix] 40 mg PO BID@0800,1700 05/19/22 05/19/22 History Piperacillin-Tazobactam [Zosyn] 3.375 gm IVPB TID@0600,1400,2200 05/19/22 05/19/22 History Potassium Chloride ER [K-Dur 10] 10 meq PO DAILY@1200 05/19/22 05/19/22 History Sennosides-Docusate Sodium 2 tab PO HS PRN 05/19/22 05/19/22 History [Senokot-S] Tamsulosin [Flomax] 0.4 mg PO DAILY@0800 05/19/22 05/19/22 History guaiFENesin-DM 600/30MG [Mucinex 1 tab PO Q12HR PRN 05/19/22 05/19/22 History Dm] Allergies Allergy/AdvReac Type Severity Reaction Status Date / Time protamine Allergy Anaphylaxis Verified 05/19/22 18:21 Surgical - Exam Vital Signs Temp Pulse Resp BP Pulse Ox 98.8 F 86 20 86/53 100 05/19/22 16:07 05/19/22 16:07 05/19/22 16:07 05/19/22 16:07 05/19/22 16:07 CONSTITUTIONAL: Awake and alert, appears comfortable, cooperative, well- developed, well-nourished, no pain, no acute distress EYES: Pupils equal, round, reactive to light, normal ocular movement ENT: Moist mucous membranes without oral lesions present NECK: No masses, no bruits, trachea midline RESPIRATORY: Lungs sounds diminished bilaterally, coarse in the bases. Respirations even, nonlabored. Currently on 3 L nasal cannula with oxygen saturation 96%. Strong cough. CARDIOVASCULAR: S1, S2 present. Irregular rate and rhythm, controlled atrial fibrillation on telemetry. Sternum stable. Palpable peripheral pulses bilaterally. Bilateral lower extremity pitting edema present, less than previous hospitalization. No calf pain or tenderness noted. GASTROINTESTINAL: Abdomen soft, nontender, nondistended without masses or organomegaly noted. There is no rebound or guarding present. Active bowel sounds present 4 quadrants. GENITOURINARY: Deferred INTEGUMENTARY: Skin is warm and dry. Anterior chest incision well approximated without redness or drainage. Stage II present and covered with dressing to coccyx NEUROLOGIC: Cranial nerves II through XII intact, normal coordination, no obvious motor or sensory deficits, speech is normal MUSKULOSKELETAL: Able to move all extremities, strength equal bilaterally, normal posture PSYCHIATRIC: Alert and oriented to person place and time, appropriate affect, intact judgment and insight Results - Labs 05/21/22 06:10 05/21/22 06:10 Abnormal Lab Results - Last 24 Hours (Table) 05/19/22 05/19/22 05/19/22 Range/Units 16:13 16:13 16:13 RBC 2.47 L (4.30-5.90) m/uL Hgb 7.5 L (13.0-17.5) gm/dL Hct 23.6 L (39.0-53.0) % MCHC (31.0-37.0) g/dL RDW 18.0 H (11.5-15.5) % Lymphocytes # 0.4 L (1.0-4.8) k/uL D-Dimer 1.85 H (<0.60) mg/L FEU Sodium 136 L (137-145) mmol/L Carbon Dioxide 34 H (22-30) mmol/L Glucose 139 H (74-99) mg/dL POC Glucose (mg/dL) (70-110) mg/dL Calcium 7.4 L (8.4-10.2) mg/dL Troponin I (0.000-0.034) ng/mL Total Protein 4.9 L (6.3-8.2) g/dL Albumin 2.5 L (3.5-5.0) g/dL Urine Glucose (UA) (Negative) Influenza Type A (PCR) (Not Detectd) 05/19/22 05/19/22 05/19/22 Range/Units 16:13 16:13 18:40 RBC (4.30-5.90) m/uL Hgb (13.0-17.5) gm/dL Hct (39.0-53.0) % MCHC (31.0-37.0) g/dL RDW (11.5-15.5) % Lymphocytes # (1.0-4.8) k/uL D-Dimer (<0.60) mg/L FEU Sodium (137-145) mmol/L Carbon Dioxide (22-30) mmol/L Glucose (74-99) mg/dL POC Glucose (mg/dL) (70-110) mg/dL Calcium (8.4-10.2) mg/dL Troponin I 0.039 H* (0.000-0.034) ng/mL Total Protein (6.3-8.2) g/dL Albumin (3.5-5.0) g/dL Urine Glucose (UA) 4+ H (Negative) Influenza Type A (PCR) Detected A (Not Detectd) 05/20/22 05/20/22 Range/Units 07:53 07:56 RBC 2.64 L (4.30-5.90) m/uL Hgb 8.0 L (13.0-17.5) gm/dL Hct 26.0 L (39.0-53.0) % MCHC 30.7 L (31.0-37.0) g/dL RDW 17.7 H (11.5-15.5) % Lymphocytes # (1.0-4.8) k/uL D-Dimer (<0.60) mg/L FEU Sodium (137-145) mmol/L Carbon Dioxide (22-30) mmol/L Glucose (74-99) mg/dL POC Glucose (mg/dL) 126 H (70-110) mg/dL Calcium (8.4-10.2) mg/dL Troponin I (0.000-0.034) ng/mL Total Protein (6.3-8.2) g/dL Albumin (3.5-5.0) g/dL Urine Glucose (UA) (Negative) Influenza Type A (PCR) (Not Detectd) Diabetes panel 05/19/22 Range/Units 16:13 Sodium 136 L (137-145) mmol/L Potassium 4.2 (3.5-5.1) mmol/L Chloride 104 (98-107) mmol/L Carbon Dioxide 34 H (22-30) mmol/L BUN 16 (9-20) mg/dL Creatinine 1.06 (0.66-1.25) mg/dL Glucose 139 H (74-99) mg/dL Calcium 7.4 L (8.4-10.2) mg/dL AST 46 (17-59) U/L ALT 45 (4-49) U/L Alkaline Phosphatase 76 (38-126) U/L Total Protein 4.9 L (6.3-8.2) g/dL Albumin 2.5 L (3.5-5.0) g/dL Calcium panel 05/19/22 Range/Units 16:13 Calcium 7.4 L (8.4-10.2) mg/dL Albumin 2.5 L (3.5-5.0) g/dL Pituitary panel 05/19/22 Range/Units 16:13 Sodium 136 L (137-145) mmol/L Potassium 4.2 (3.5-5.1) mmol/L Chloride 104 (98-107) mmol/L Carbon Dioxide 34 H (22-30) mmol/L BUN 16 (9-20) mg/dL Creatinine 1.06 (0.66-1.25) mg/dL Glucose 139 H (74-99) mg/dL Calcium 7.4 L (8.4-10.2) mg/dL Adrenal panel 05/19/22 Range/Units 16:13 Sodium 136 L (137-145) mmol/L Potassium 4.2 (3.5-5.1) mmol/L Chloride 104 (98-107) mmol/L Carbon Dioxide 34 H (22-30) mmol/L BUN 16 (9-20) mg/dL Creatinine 1.06 (0.66-1.25) mg/dL Glucose 139 H (74-99) mg/dL Calcium 7.4 L (8.4-10.2) mg/dL Total Bilirubin 0.7 (0.2-1.3) mg/dL AST 46 (17-59) U/L ALT 45 (4-49) U/L Alkaline Phosphatase 76 (38-126) U/L Total Protein 4.9 L (6.3-8.2) g/dL Albumin 2.5 L (3.5-5.0) g/dL - Imaging Chest x-ray: report reviewed, image reviewed EKG: image reviewed Assessment and Plan Assessment: 1. Acute on chronic systolic heart failure 2. Influenza A PCR positive on admission 3. Shortness of breath, hypoxia secondary to above 4. History of Severe mitral valve regurgitation, status post mitral valve repair 04/19/22 5. Coronary artery disease, previous PCI, previous non-STEMI, status post CABG 3 04/19/22 6. History of paroxysmal atrial fibrillation, previous cardioversion, on [facility] outpatient for anticoagulation, status post modified Castanon maze and ligation of left atrial appendage 7. Patent foramen ovale, status post closure 8. Chronic systolic congestive heart failure, ischemic cardiomyopathy with EF 40-45% 9. History of hypertension 10. History hyperlipidemia, treated, cholesterol 150, LDL 72 11. Right internal carotid stenosis 50-79% 12. 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 Chronic renal failure, baseline creatinine 1.28-1.6 14. Diabetes mellitus type 2, preoperative hemoglobin A1c 5.6% 15. Osteoarthritis, chronic low back pain 16. Severe COPD, preoperative FEV1 41% of predicted 17. Previous nicotine dependence 18. Sacral stage II ulcer status post debridement 19. Medical debility, generalized weakness 20. History of small left-sided pleural effusion, status post left-sided thoracentesis on 04/30/2022 21. History of urinary retention possibly secondary to constipation Plan: The patient was seen and examined this morning sitting up in bed in the observation unit is in no acute distress. He is on 3 L nasal cannula with oxygen saturation in the mid 90s. Denies significant pain or shortness of breath at this time. He is actually in very good spirits. Would recommend continuing to maximize medical therapy with aspirin, statin, anticoagulation, beta siomara therapy. Continue to diurese aggressively. Increase activity as tolerated, patient should remain out of bed all day and only be in bed at nighttime to sleep. PT/OT was consulted. Will call and update patient's . Sternal precautions in place. Will call [place] tomorrow to update and inquire about feasibility of sending patient back with positive influenza A screen. Zosyn added back to patient's medications as he was supposed to remain on for [address] Chen's recommendations. Once patient has been optimized he should be discharged from the hospital. Will discuss in detail with Dr. Raines as his surgeon, discussed with Dr. Coley money room supervisor for cardiothoracic surgery this weekend as well. More recommendations to follow. Thank you for this consult. We will continue to follow along as the patient is well known to us. I have personally seen and examined the patient, performed the documentation and the assessment and plan as written. Number of minutes spent on the visit: 30. ANDRE Alcaraz I have personally seen and examined the patient, reviewed and agree with the documentation, assessment and plan as written. Number of minutes spent on the visit: 40. Dr. Nas Coley MD
--- NOTE | 2022-05-20 11:56 | P.CRDCN ---
History of Present Illness Consult date: 05/20/22 Requesting physician: Dudley Nguyen Reason for Consult (text): chf exacerbation Chief complaint: shortness of breath, edema History of present illness: This pleasant 72-year-old gentleman who follows with Dr. Man in the office. He has a past medical history of persistent atrial fibrillation status post cardioversion, severe mitral valve regurgitation status post mitral valve repair as well as CAD with previous PCI and non-STEMI status post CABG 3 with closure of PFO on 04/19/2022, chronic systolic congestive heart failure, ischemic cardiomyopathy with an ejection fraction of 40-45%, hypertension, hyperlipidemia, right internal carotid artery stenosis, acute on chronic blood loss anemia, chronic kidney failure, type 2 diabetes, COPD and prior nicotine dependence. Was recently discharged tomorrow would for subacute rehab on 05/18/2022 after spending 29 days in the hospital postoperatively. 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 Following discharge tomorrow would he developed progressively worsening shortness of breath, orthopnea and edema with hypoxemia requiring initiation of oxygen therapy. He was brought back to [facility] yesterday. Labs showed hemoglobin 7.5 with a subsequent dryness morning of 8.0, d-dimer 1.85, sodium 136, BUN 16, creatinine 1.06, minimal troponin elevation at 0.039 and an NT proBNP of 10,700. EKG showed sinus mechanism with nonspecific ST-T wave abnormalities but no evidence of acute ischemia. Chest x-ray showed cardiomegaly, pulmonary vascular congestion and bilateral pleural effusions, correlate with BNP for congestive heart failure. Subsequent chest x-ray this morning showed bilateral pleural effusions with right sided airspace opacities which could represent atelectasis versus developing pneumonia, clinical correlation. He did test positive for influenza A. He has been initiated on Lasix IV push 40 mg every 12 hours. Renal function this morning show some improvement compared to yesterday. He is overall feeling better. He feels the edema has significantly improved and his breathing is better. He's had no complaints of chest discomfort. Denies any palpitations, dizziness or lightheadedness. 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 Insomnia. Chronic back pain. Last Myocardial Infarction Date:: 11/2021 History of Any Multi-Drug Resistant Organisms: None Reported Past Surgical History: Back Surgery, Coronary Bypass/CABG, Heart Catheterization With Stent, Joint Replacement, Orthopedic Surgery Additional Past Surgical History / Comment(s): BILATERAL KNEE REPLACEMENTS, BILATERAL SHOULDER SURGERY, ONE CARDIAC STENT, back surgery X2 (lumbar decompression and fusion), BACK INJECTIONS, COLONOSCOPY, BILATERAL CATARACTS REMOVED WITH LENS IMPLANTS, Cardioversion. CABG 3/mitral valve repair/closure of PFO/Castanon maze/left atrial appendage ligation 04/19/2022, left sided thoracentesis 04/30/2022 and 05/04/2022, EGD 05/08/2022, EGD with argon plasma coagulation and Endo clip ligation 05/15/2022 Past Anesthesia/Blood Transfusion Reactions: No Reported Reaction Date of Last Stent Placement:: 2000 Past Psychological History: No Psychological Hx Reported Smoking Status: Former smoker Past Alcohol Use History: None Reported Past Drug Use History: None Reported - Past Family History Father Family Medical History: No Reported History Mother Family Medical History: No Reported History Medications and Allergies Home Medications Medication Instructions Recorded Confirmed Type Vit C/E/Zn/Coppr/Lutein/Zeaxan 2 cap PO DAILY@1500 02/19/17 05/19/22 History [Preservision Areds 2 Softgel] Apixaban [Eliquis] 5 mg PO BID@0800,1700 11/09/21 05/19/22 History Fluticasone/Umeclidin/Vilanter 1 puff INHALATION RT-HS@2100 11/09/21 05/19/22 History [Treleradha Ellipta 100-62.5-25] Ferrous Sulfate [Iron (65 MG 325 mg PO BID@0800,1700 12/22/21 05/19/22 History Elemental)] Ipratropium-Albuterol Nebulize 3 ml INHALATION RT-QID@08,,,12/22/21 05/19/22 History [Duoneb 0.5 mg-3 mg/3 ml Soln] PRN Acetaminophen Tab [Tylenol] 650 mg PO Q6HR PRN tab 05/18/22 05/19/22 Rx Ipratropium-Albuterol Nebulize 3 ml INHALATION RT-Q2H PRN each 05/18/22 05/19/22 Rx [Duoneb 0.5 mg-3 mg/3 ml Soln] bisacodyL [Dulcolax] 10 mg RECTAL DAILY PRN suppositor 05/18/22 05/19/22 Rx lisinopriL [Zestril] 5 mg PO DAILY@1200 tab 05/18/22 05/19/22 Rx Arginaid 1 packet PO BID@0800,1700 05/19/22 05/19/22 History Ascorbic Acid [Vitamin C] 500 mg PO DAILY@1200 05/19/22 05/19/22 History Aspirin 81 mg PO DAILY@1200 05/19/22 05/19/22 History Atorvastatin [Lipitor] 40 mg PO DAILY@1700 05/19/22 05/19/22 History Benzocaine/Menthol Lozeng [Cepacol 1 lozenge MUCOUS MEM Q2HR PRN 05/19/22 05/19/22 History lozenge] Bumetanide [BUMEX] 2 mg PO DAILY@0800 05/19/22 05/19/22 History Collagenase [Santyl Ointment] 1 applic TOPICAL DAILY 05/19/22 05/19/22 History Collagenase [Santyl Ointment] 1 applic TOPICAL DAILY PRN 05/19/22 05/19/22 History Dapagliflozin Propanediol [Farxiga] 10 mg PO DAILY@0800 05/19/22 05/19/22 History Glucerna Shake 1 can PO TID@0800,1200,1700 05/19/22 05/19/22 History HYDROcodone/APAP 5-325MG [[place] 1 tab PO Q6HR PRN 05/19/22 05/19/22 History 5-325] INSULIN ASPART (NovoLOG) [NovoLOG See Protocol SQ ACHS 05/19/22 05/19/22 History (formulary)] Lidocaine 5% Patch [Lidoderm 5% 2 patch TOPICAL DAILY@0800 05/19/22 05/19/22 History Patch] Magnesium Hydroxide [Milk of 7,200 mg PO DAILY PRN 05/19/22 05/19/22 History Magnesia Concentrate] Metoprolol Tartrate [Lopressor] 25 mg PO BID@0800,1700 05/19/22 05/19/22 History Na Phos,M-B/Na Phos,Di-Ba [Fleet 133 ml RECTAL DAILY PRN 05/19/22 05/19/22 History Adult] Pantoprazole [Protonix] 40 mg PO BID@0800,1700 05/19/22 05/19/22 History Piperacillin-Tazobactam [Zosyn] 3.375 gm IVPB TID@0600,1400,2200 05/19/22 05/19/22 History Potassium Chloride ER [K-Dur 10] 10 meq PO DAILY@1200 05/19/22 05/19/22 History Sennosides-Docusate Sodium 2 tab PO HS PRN 05/19/22 05/19/22 History [Senokot-S] Tamsulosin [Flomax] 0.4 mg PO DAILY@0800 05/19/22 05/19/22 History guaiFENesin-DM 600/30MG [Mucinex 1 tab PO Q12HR PRN 05/19/22 05/19/22 History Dm] Allergies Allergy/AdvReac Type Severity Reaction Status Date / Time protamine Allergy Anaphylaxis Verified 05/19/22 18:21 Physical Exam Vitals: Vital Signs Temp Pulse Pulse Resp BP BP Pulse Ox 05/20/22 07:45 97.4 F L 86 16 99/48 99 05/20/22 07:07 88 05/20/22 06:56 88 05/20/22 06:53 99 05/20/22 05:51 99 05/20/22 02:23 98.2 F 81 17 133/77 97 05/20/22 01:26 84 05/20/22 01:17 80 05/19/22 22:20 98.3 F 84 19 146/85 94 L 05/19/22 19:30 86 18 98/53 100 05/19/22 18:35 82 18 122/62 100 05/19/22 18:08 82 05/19/22 18:00 84 05/19/22 17:33 80 18 90/60 100 05/19/22 16:07 98.8 F 86 20 86/53 100 Intake and Output 05/19/22 05/20/22 05/20/22 22:59 06:59 14:59 Output Total 275 Balance -275 Output: Urine 275 Other: Voiding Method Urinal # Voids 1 Weight 90.718 kg 87.6 kg PHYSICAL EXAMINATION: This is a 72-year-old male in no apparent distress at the time of my examination. HEENT: Head is atraumatic, normocephalic. Pupils are equal, round. Sclerae anicteric. Conjunctivae are clear. Mucous membranes of the mouth are moist. Neck is supple. There is no elevated jugular venous pressure. No carotid bruit is heard. CHEST EXAMINATION: Lungs reveal diminished air entry bilaterally with bibasilar crackles. No wheezes or rhonchi. Respirations even and nonlabored. HEART EXAMINATION: Heart regular, positive S1 and S2. No S3. No S4. Sternal incision healing well, stable. ABDOMEN: Soft, nontender. Bowel sounds are heard. No organomegaly noted. EXTREMITIES: 2+ peripheral pulses with evidence of mild to moderate peripheral edema and no calf tenderness noted. NEUROLOGIC EXAMINATION: Patient is awake, alert and oriented x3. Results 05/20/22 07:56 05/20/22 07:56 Cardiac Enzymes 05/19/22 05/19/22 Range/Units 16:13 16:13 AST 46 (17-59) U/L Troponin I 0.039 H* (0.000-0.034) ng/mL Coagulation 05/19/22 Range/Units 16:13 PT 11.4 (9.0-12.0) sec APTT 25.7 (22.0-30.0) sec CBC 05/19/22 05/20/22 Range/Units 16:13 07:56 WBC 7.8 7.1 (3.8-10.6) k/uL RBC 2.47 L 2.64 L (4.30-5.90) m/uL Hgb 7.5 L 8.0 L (13.0-17.5) gm/dL Hct 23.6 L 26.0 L (39.0-53.0) % Plt Count 323 314 (150-450) k/uL Comprehensive Metabolic Panel 05/19/22 05/20/22 Range/Units 16:13 07:56 Sodium 136 L 139 (137-145) mmol/L Potassium 4.2 4.2 (3.5-5.1) mmol/L Chloride 104 104 (98-107) mmol/L Carbon Dioxide 34 H 34 H (22-30) mmol/L BUN 16 13 (9-20) mg/dL Creatinine 1.06 0.94 (0.66-1.25) mg/dL Glucose 139 H 125 H (74-99) mg/dL Calcium 7.4 L 7.7 L (8.4-10.2) mg/dL AST 46 (17-59) U/L ALT 45 (4-49) U/L Alkaline Phosphatase 76 (38-126) U/L Total Protein 4.9 L (6.3-8.2) g/dL Albumin 2.5 L (3.5-5.0) g/dL Current Medications Generic Name Dose Route Start Last Admin Trade Name Freq PRN Reason Stop Dose Admin Acetaminophen 650 mg 05/19/22 19:53 Acetaminophen Tab 325 Mg Tab PO Q6HR PRN Fever and/ or Mild Pain Hydrocodone Bitart/Acetaminophen 1 each 05/19/22 19:53 Hydrocodone/Apap 5-325mg 1 Each Tab PO Q6HR PRN Moderate Pain (Scale 4 to 6) Albuterol/Ipratropium 3 ml 05/20/22 08:00 05/20/22 06:56 Ipratropium-Albuterol 3 Ml Neb INHALATION 3 ml RT-QID ZULMA Administration Albuterol/Ipratropium 3 ml 05/19/22 21:17 05/20/22 01:17 Ipratropium-Albuterol 3 Ml Neb INHALATION 3 ml RT-Q2H PRN Administration Shortness Of Breath Or Wheezing Apixaban 5 mg 05/20/22 08:00 05/20/22 08:43 Apixaban 5 Mg Tab PO 5 mg BID@0800,1700 [facility] Administration Protocol Ascorbic Acid 500 mg 05/20/22 12:00 Ascorbic Acid 500 Mg Tab PO DAILY@1200 [facility] Aspirin 81 mg 05/20/22 12:00 Aspirin 81 Mg PO DAILY@1200 [facility] Atorvastatin Calcium 40 mg 05/20/22 17:00 Atorvastatin 40 Mg Tab PO DAILY@1700 [facility] Benzocaine/Menthol 1 each 05/19/22 19:53 Benzocaine/Menthol Lozeng 1 Each Lozenge MUCOUS MEM Q2HR PRN Sore Throat Bisacodyl 10 mg 05/19/22 19:53 Bisacodyl 10 Mg Supp RECTAL DAILY PRN Constipation Budesonide/Formoterol Fumarate 2 puff 05/19/22 21:00 05/20/22 06:56 Symbicort 80-4.5 Mcg Inhaler INHALATION 2 puff RT-BID [facility] Administration Collagenase 1 applic 05/19/22 19:53 Collagenase 250 Unit/Gm Ointment 30 Gm Tube TOPICAL DAILY PRN [facility] Protocol Collagenase 1 applic 05/20/22 09:00 Collagenase 250 Unit/Gm Ointment 30 Gm Tube TOPICAL DAILY [facility] Protocol Dextrose/Water 25 ml 05/20/22 07:50 Dextrose 50% Syringe 50 Ml IVP PER PROTOCOL PRN Hypoglycemia Protocol Dextrose/Water 50 ml 05/20/22 07:50 Dextrose 50% Syringe 50 Ml IVP PER PROTOCOL PRN Hypoglycemia Protocol Ferrous Sulfate 325 mg 05/20/22 08:00 05/20/22 08:44 Ferrous Sulfate 325 Mg Tab PO 325 mg BID@0800,1700 [facility] Administration Furosemide 40 mg 05/19/22 21:00 05/20/22 08:43 Furosemide 10 Mg/Ml 4 Ml Vial IV 40 mg Q12H [facility] Administration Guaifenesin/Dextromethorphan 1 each 05/19/22 19:53 Guaifenesin-Dm 600/30mg 1 Each Tab.Er.12h PO Q12HR PRN Cough Piperacillin Sod/Tazobactam 100 mls @ 25 mls/hr 05/20/22 08:00 05/20/22 08:43 Sod 3.375 gm/ Sodium Chloride IVPB 25 mls/hr Q8HR [facility] Administration Protocol Insulin Aspart 0 unit 05/20/22 12:30 Insulin Aspart (Novolog) 100 Unit/Ml Vial SQ ACHS [facility] Protocol Lidocaine 2 patch 05/20/22 08:00 Lidocaine 5% Patch TOPICAL DAILY@0800 [facility] Protocol Magnesium Hydroxide 2,400 mg 05/19/22 19:53 Magnesium Hydroxide 2,400 Mg/10 Ml Cup PO DAILY PRN Constipation Metoprolol Tartrate 25 mg 05/20/22 08:00 05/20/22 08:44 Metoprolol Tartrate 25 Mg Tab PO 25 mg BID@0800,1700 [facility] Administration Multivitamins/Minerals 2 each 05/20/22 15:00 Vit A,C & S-Nposqb-Avjdedjz 1 Each Tab PO DAILY@1500 [facility] Pantoprazole Sodium 40 mg 05/20/22 08:00 05/20/22 08:44 Pantoprazole 40 Mg Tablet PO 40 mg BID@0800,1700 [facility] Administration Senna/Docusate Sodium 2 each 05/19/22 19:53 Sennosides-Docusate Sodium 1 Each Tab PO HS PRN Constipation Sodium Biphosphate/Sodium Phosphate 133 ml 05/19/22 19:53 Na Phos,M-B/Na Phos,Di-Ba 133 Ml Enema RECTAL DAILY PRN Constipation Sodium Chloride 10 ml 05/19/22 21:00 05/20/22 08:43 Sodium Chloride 0.9% Flush 10 Ml Syringe IV 10 ml BID [facility]UL[facility] Administration Tamsulosin HCl 0.4 mg 05/20/22 08:00 05/20/22 08:43 Tamsulosin 0.4 Mg Cap.Er.24h PO 0.4 mg DAILY@0800 [facility]UL[facility] Administration Intake and Output 05/19/22 05/20/22 05/20/22 22:59 06:59 14:59 Output Total 275 Balance -275 Output: Urine 275 Other: Voiding Method Urinal # Voids 1 Weight 90.718 kg 87.6 kg Patient Weight 05/21/22 06:59 Weight 87.6 kg 05/20/22 07:56 05/20/22 07:56 Assessment and Plan Assessment: #1 acute on chronic systolic congestive heart failure #2 influenza A #3 severe mitral valve regurgitation status post mitral valve repair 04/19/2022 #4 CAD with prior PCI status post CABG 3 04/19/2022 #5 persistent atrial fibrillation, status post cardioversion, maintaining sinus mechanism, anticoagulated, status post modified Castanon maze and ligation of left atrial appendage #6 PFO status post closure #7 ischemic cardiomyopathy with an ejection fraction of 40-45% #8 hypertension #9 hyperlipidemia #10 right internal carotid stenosis #11 anemia, stable #12 COPD Plan: From cardiology's perspective heart failure likely exacerbated by underlying influenza infection. Continue IV Lasix for another 24 hours. We will continue to maximize medical therapy. Continue anticoagulation. Continue to monitor renal function and electrolytes. Continue to monitor daily weights and intake and output. We will continue to follow the patient and provide further recommendations accordingly. [employer] [employer] note has been reviewed, I agree with a documented findings and plan of care. Patient was seen and examined.
[2022-05-20] MEDS: LIDOCAINE 5% PATCH TOPICAL SCH (12:06)
[2022-05-20 12:33] LABS: Glucose,Whole Blood 174 mg/dL (70-110)
[2022-05-20] MEDS: ASCORBIC ACID 500 MG TAB PO SCH (12:37)
[2022-05-20] MEDS: ASPIRIN 81 MG PO SCH (12:37)
[2022-05-20] MEDS: INSULIN ASPART (NovoLOG) 100 UNIT/ML VIAL SQ SCH ×3 (12:37→20:19)
--- NOTE | 2022-05-20 12:47 | P.HPIM ---
History of Present Illness 72-year-old male had a recent with coronary artery disease and CABG 3 and a close the PFO on 19 of April came in with compensative shortness of breath on weaning can start failure patient has EF of around the 40 with 50%. Patient has bilateral lower sweaty edema. was having orthopnea paroxysmal nocturnal dyspnea does have a pulmonary edema on the chest x-ray patient was started on IV Lasix BNP is around 10,000. REVIEW OF SYSTEMS: CONSTITUTIONAL: No fever, no malaise, no fatigue. HEENT: No recent visual problems or hearing problems. Denied any sore throat. CARDIOVASCULAR: No chest pain, no palpitations, no syncope. PULMONARY:, no hemoptysis. GASTROINTESTINAL: No diarrhea, no nausea, no vomiting, no abdominal pain. NEUROLOGICAL: No headaches, no weakness, no numbness. HEMATOLOGICAL: Denies any bleeding or petechiae. GENITOURINARY: Denies any burning micturition, frequency, or urgency. MUSCULOSKELETAL/RHEUMATOLOGICAL: Denies any joint pain, swelling, or any muscle pain. ENDOCRINE: Denies any polyuria or polydipsia. The rest of the 14-point review of systems is negative. PHYSICAL EXAMINATION: GENERAL: The patient is alert and oriented x3, not in any acute distress. Well developed, well nourished. HEENT: Pupils are round and equally reacting to light. EOMI. No scleral icterus. No conjunctival pallor. Normocephalic, atraumatic. No pharyngeal erythema. No thyromegaly. CARDIOVASCULAR: S1 and S2 present. No murmurs, rubs, or gallops. Elevated JVD PULMONARY: Chest is clear to auscultation, no wheezing or crackles. ABDOMEN: Soft, nontender, nondistended, normoactive bowel sounds. No palpable organomegaly. MUSCULOSKELETAL: No joint swelling or deformity. EXTREMITIES: No cyanosis, clubbing, bilateral lower extremity edema NEUROLOGICAL: Gross neurological examination did not reveal any focal deficits. SKIN: No rashes. Assessment and plan I think that his heart failure chronic systolic dysfunction with acute exacerbation: Patient will be continued on IV Lasix continue input and output. -Influenza infection next and heparin coronary artery disease with recent PCI and the CABG about a month ago next line-persistent atrial fibrillation presently in sinus rhythm -Hypertension next 5 hyperlipidemia -COPD without any acute exacerbation -Anemia secondary to surgery which is a chronic anemia evaluation as an inpatient. 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 Insomnia. Chronic back pain. Last Myocardial Infarction Date:: 11/2021 History of Any Multi-Drug Resistant Organisms: None Reported Past Surgical History: Back Surgery, Coronary Bypass/CABG, Heart Catheterization With Stent, Joint Replacement, Orthopedic Surgery Additional Past Surgical History / Comment(s): BILATERAL KNEE REPLACEMENTS, BILATERAL SHOULDER SURGERY, ONE CARDIAC STENT, back surgery X2 (lumbar decompression and fusion), BACK INJECTIONS, COLONOSCOPY, BILATERAL CATARACTS REMOVED WITH LENS IMPLANTS, Cardioversion. CABG 3/mitral valve repair/closure of PFO/Castanon maze/left atrial appendage ligation 04/19/2022, left sided thoracentesis 04/30/2022 and 05/04/2022, EGD 05/08/2022, EGD with argon plasma coagulation and Endo clip ligation 05/15/2022 Past Anesthesia/Blood Transfusion Reactions: No Reported Reaction Date of Last Stent Placement:: 2000 Past Psychological History: No Psychological Hx Reported Smoking Status: Former smoker Past Alcohol Use History: None Reported Past Drug Use History: None Reported - Past Family History Father Family Medical History: No Reported History Mother Family Medical History: No Reported History Medications and Allergies Home Medications Medication Instructions Recorded Confirmed Type Vit C/E/Zn/Coppr/Lutein/Zeaxan 2 cap PO DAILY@1500 02/19/17 05/19/22 History [Preservision Areds 2 Softgel] Apixaban [Eliquis] 5 mg PO BID@0800,1700 11/09/21 05/19/22 History Fluticasone/Umeclidin/Vilanter 1 puff INHALATION RT-HS@2100 11/09/21 05/19/22 History [Trelegy Ellipta 100-62.5-25] Ferrous Sulfate [Iron (65 MG 325 mg PO BID@0800,1700 12/22/21 05/19/22 History Elemental)] Ipratropium-Albuterol Nebulize 3 ml INHALATION RT-QID@08,,,12/22/21 05/19/22 History [Duoneb 0.5 mg-3 mg/3 ml Soln] PRN Acetaminophen Tab [Tylenol] 650 mg PO Q6HR PRN tab 05/18/22 05/19/22 Rx Ipratropium-Albuterol Nebulize 3 ml INHALATION RT-Q2H PRN each 05/18/22 05/19/22 Rx [Duoneb 0.5 mg-3 mg/3 ml Soln] bisacodyL [Dulcolax] 10 mg RECTAL DAILY PRN suppositor 05/18/22 05/19/22 Rx lisinopriL [Zestril] 5 mg PO DAILY@1200 tab 05/18/22 05/19/22 Rx Arginaid 1 packet PO BID@0800,1700 05/19/22 05/19/22 History Ascorbic Acid [Vitamin C] 500 mg PO DAILY@1200 05/19/22 05/19/22 History Aspirin 81 mg PO DAILY@1200 05/19/22 05/19/22 History Atorvastatin [Lipitor] 40 mg PO DAILY@1700 05/19/22 05/19/22 History Benzocaine/Menthol Lozeng [Cepacol 1 lozenge MUCOUS MEM Q2HR PRN 05/19/22 05/19/22 History lozenge] Bumetanide [BUMEX] 2 mg PO DAILY@0800 05/19/22 05/19/22 History Collagenase [Santyl Ointment] 1 applic TOPICAL DAILY 05/19/22 05/19/22 History Collagenase [Santyl Ointment] 1 applic TOPICAL DAILY PRN 05/19/22 05/19/22 History Dapagliflozin Propanediol [Farxiga] 10 mg PO DAILY@0800 05/19/22 05/19/22 History Glucerna Shake 1 can PO TID@0800,1200,1700 05/19/22 05/19/22 History HYDROcodone/APAP 5-325MG [[place] 1 tab PO Q6HR PRN 05/19/22 05/19/22 History 5-325] INSULIN ASPART (NovoLOG) [NovoLOG See Protocol SQ ACHS 05/19/22 05/19/22 History (formulary)] Lidocaine 5% Patch [Lidoderm 5% 2 patch TOPICAL DAILY@0800 05/19/22 05/19/22 History Patch] Magnesium Hydroxide [Milk of 7,200 mg PO DAILY PRN 05/19/22 05/19/22 History Magnesia Concentrate] Metoprolol Tartrate [Lopressor] 25 mg PO BID@0800,1700 05/19/22 05/19/22 History Na Phos,M-B/Na Phos,Di-Ba [Fleet 133 ml RECTAL DAILY PRN 05/19/22 05/19/22 History Adult] Pantoprazole [Protonix] 40 mg PO BID@0800,1700 05/19/22 05/19/22 History Piperacillin-Tazobactam [Zosyn] 3.375 gm IVPB TID@0600,1400,2200 05/19/22 05/19/22 History Potassium Chloride ER [K-Dur 10] 10 meq PO DAILY@1200 05/19/22 05/19/22 History Sennosides-Docusate Sodium 2 tab PO HS PRN 05/19/22 05/19/22 History [Senokot-S] Tamsulosin [Flomax] 0.4 mg PO DAILY@0800 05/19/22 05/19/22 History guaiFENesin-DM 600/30MG [Mucinex 1 tab PO Q12HR PRN 05/19/22 05/19/22 History Dm] Allergies Allergy/AdvReac Type Severity Reaction Status Date / Time protamine Allergy Anaphylaxis Verified 05/19/22 18:21 Physical Exam Vitals: Vital Signs Temp Pulse Pulse Resp BP BP Pulse Ox 05/20/22 10:59 79 05/20/22 10:47 78 05/20/22 07:45 97.4 F L 86 16 99/48 99 05/20/22 07:07 88 05/20/22 06:56 88 05/20/22 06:53 99 05/20/22 05:51 99 05/20/22 02:23 98.2 F 81 17 133/77 97 05/20/22 01:26 84 05/20/22 01:17 80 05/19/22 22:20 98.3 F 84 19 146/85 94 L 12/17/22 19:30 86 18 98/53 100 05/19/22 18:35 82 18 122/62 100 05/19/22 18:08 82 05/19/22 18:00 84 05/19/22 17:33 80 18 90/60 100 05/19/22 16:07 98.8 F 86 20 86/53 100 Intake and Output 05/19/22 05/20/22 05/20/22 22:59 06:59 14:59 Output Total 275 450 Balance -275 -450 Output: Urine 275 450 Other: Voiding Method Urinal # Voids 1 2 Weight 90.718 kg 87.6 kg Results CBC & Chem 7: 05/20/22 07:56 05/20/22 07:56 Labs: Abnormal Lab Results - Last 24 Hours (Table) 05/19/22 05/19/22 05/19/22 Range/Units 16:13 16:13 16:13 RBC 2.47 L (4.30-5.90) m/uL Hgb 7.5 L (13.0-17.5) gm/dL Hct 23.6 L (39.0-53.0) % MCHC (31.0-37.0) g/dL RDW 18.0 H (11.5-15.5) % Lymphocytes # 0.4 L (1.0-4.8) k/uL D-Dimer 1.85 H (<0.60) mg/L FEU Sodium 136 L (137-145) mmol/L Carbon Dioxide 34 H (22-30) mmol/L Glucose 139 H (74-99) mg/dL POC Glucose (mg/dL) (70-110) mg/dL Calcium 7.4 L (8.4-10.2) mg/dL Troponin I (0.000-0.034) ng/mL Total Protein 4.9 L (6.3-8.2) g/dL Albumin 2.5 L (3.5-5.0) g/dL Urine Glucose (UA) (Negative) Influenza Type A (PCR) (Not Detectd) 05/19/22 05/19/22 05/19/22 Range/Units 16:13 16:13 18:40 RBC (4.30-5.90) m/uL Hgb (13.0-17.5) gm/dL Hct (39.0-53.0) % MCHC (31.0-37.0) g/dL RDW (11.5-15.5) % Lymphocytes # (1.0-4.8) k/uL D-Dimer (<0.60) mg/L FEU Sodium (137-145) mmol/L Carbon Dioxide (22-30) mmol/L Glucose (74-99) mg/dL POC Glucose (mg/dL) (70-110) mg/dL Calcium (8.4-10.2) mg/dL Troponin I 0.039 H* (0.000-0.034) ng/mL Total Protein (6.3-8.2) g/dL Albumin (3.5-5.0) g/dL Urine Glucose (UA) 4+ H (Negative) Influenza Type A (PCR) Detected A (Not Detectd) 05/20/22 05/20/22 05/20/22 Range/Units 07:53 07:56 07:56 RBC 2.64 L (4.30-5.90) m/uL Hgb 8.0 L (13.0-17.5) gm/dL Hct 26.0 L (39.0-53.0) % MCHC 30.7 L (31.0-37.0) g/dL RDW 17.7 H (11.5-15.5) % Lymphocytes # (1.0-4.8) k/uL D-Dimer (<0.60) mg/L FEU Sodium (137-145) mmol/L Carbon Dioxide 34 H (22-30) mmol/L Glucose 125 H (74-99) mg/dL POC Glucose (mg/dL) 126 H (70-110) mg/dL Calcium 7.7 L (8.4-10.2) mg/dL Troponin I (0.000-0.034) ng/mL Total Protein (6.3-8.2) g/dL Albumin (3.5-5.0) g/dL Urine Glucose (UA) (Negative) Influenza Type A (PCR) (Not Detectd) 05/20/22 Range/Units 12:31 RBC (4.30-5.90) m/uL Hgb (13.0-17.5) gm/dL Hct (39.0-53.0) % MCHC (31.0-37.0) g/dL RDW (11.5-15.5) % Lymphocytes # (1.0-4.8) k/uL D-Dimer (<0.60) mg/L FEU Sodium (137-145) mmol/L Carbon Dioxide (22-30) mmol/L Glucose (74-99) mg/dL POC Glucose (mg/dL) 174 H (70-110) mg/dL Calcium (8.4-10.2) mg/dL Troponin I (0.000-0.034) ng/mL Total Protein (6.3-8.2) g/dL Albumin (3.5-5.0) g/dL Urine Glucose (UA) (Negative) Influenza Type A (PCR) (Not Detectd) Thrombosis Risk Factor Assmnt - Choose All That Apply Any of the Below Risk Factors Present?: Yes Each Factor Represents 1 point: Abnormal pulmonary function (COPD), Obesity (BMI >25), Swollen legs (current) Other Risk Factors: Yes Each Risk Factor Represents 2 Points: Age 61-74 years Other congenital or acquired thrombophilia - If yes, enter type in comment: No Thrombosis Risk Factor Assessment Total Risk Factor Score: 5 Thrombosis Risk Factor Assessment Level: High Risk
[2022-05-20] MEDS: COLLAGENASE 250 UNIT/GM OINTMENT 30 GM TUBE TOPICAL SCH (14:03)
[2022-05-20] MEDS: VIT A,C & E-LUTEIN-MINERALS 1 EACH TAB PO SCH (16:35)
[2022-05-20] MEDS: ATORVASTATIN 40 MG TAB PO SCH (16:36)
[2022-05-20 17:24] LABS: Glucose,Whole Blood 320 mg/dL (70-110)
[2022-05-20 19:54] LABS: Glucose,Whole Blood 217 mg/dL (70-110)
[2022-05-21] MEDS: PIPERACILLIN-TAZOBACTAM 3.375 GM in SODIUM CHLORIDE 0.9% 100 ML IVPB SCH ×4 (00:37→23:56)
[2022-05-21] MEDS: IPRATROPIUM-ALBUTEROL 3 ML NEB INHALATION PRN (00:55)
[2022-05-21 05:55] LABS: Glucose,Whole Blood 149 mg/dL (70-110)
[2022-05-21] MEDS: INSULIN ASPART (NovoLOG) 100 UNIT/ML VIAL SQ SCH ×4 (05:59→21:17)
[2022-05-21] MEDS: ACETAMINOPHEN TAB 325 MG TAB PO PRN (06:48)
[2022-05-21] MEDS: IPRATROPIUM-ALBUTEROL 3 ML NEB INHALATION SCH ×4 (07:25→19:28)
[2022-05-21] MEDS: SYMBICORT 80-4.5 MCG INHALER INHALATION SCH ×2 (07:25→19:28)
--- NOTE | 2022-05-21 08:46 | P.PN ---
Subjective Progress Note Date: 05/21/22 Principal diagnosis: Acute on chronic systolic heart failure, Influenza A PCR positive on admission. History of severe mitral valve regurgitation, status post mitral valve repair 04/19/22, coronary artery disease, previous PCI, previous non-STEMI, status post CABG 3 04/19/22, paroxysmal atrial fibrillation, previous cardioversion, on [facility] outpatient for anticoagulation, status post modified Castanon maze and ligation of left atrial appendage, patent foramen ovale, status post closure, chronic systolic congestive heart failure, ischemic cardiomyopathy with EF 40- 45%, hypertension, hyperlipidemia, right internal carotid stenosis 50-79%, chronic blood loss anemia with history of GI bleed in November 2021 S/P transfusion PRBCs, 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 Denies significant chest pain or shortness of breath, does complain of sinus pressure in his head. Remains on 2 L nasal cannula. Urine output 2.3 L in the last 24 hours. Patient's was updated yesterday. No other new concerns. Objective - Vital Signs Vital signs: Vital Signs Temp 98.2 F 05/21/22 01:38 Pulse 76 05/21/22 07:35 Resp 14 05/21/22 02:00 BP 98/49 05/21/22 01:38 Pulse Ox 96 05/21/22 07:25 FiO2 Intake & Output 05/20/22 05/21/22 05/21/22 18:59 06:59 18:59 Output Total 925 1375 Balance -925 -1375 Weight 87.6 kg Output: Urine 925 1375 Other: Voiding Method Urinal # Voids 1 - Exam CONSTITUTIONAL: Appears comfortable, cooperative, no acute distress RESPIRATORY: Lungs sounds diminished bilaterally. Respirations even, nonlabored. Currently on 2 L nasal cannula with oxygen saturation 96%. Able to achieve 1500 mL on incentive spirometry. Strong cough. CARDIOVASCULAR: S1, S2 present. Regular rate and rhythm, sinus rhythm on telemetry. Sternum stable. Palpable peripheral pulses bilaterally. Bilateral lower extremity pitting edema present. No calf pain or tenderness noted. Heart hugger in place with patient demonstrating appropriate use. Antiembolism stockings, SCDs present. GASTROINTESTINAL: Abdomen soft, nontender, nondistended. Active bowel sounds present 4 quadrants. Tolerating diet. GENITOURINARY: Continues to void clear, yellow urine. Output 2300 mL in the last 24 hours INTEGUMENTARY: Skin is warm and dry with evidence of good perfusion. Anterior chest incision well approximated. Bilateral lower extremity EVH sites well a pproximated without redness or drainage. NEUROLOGIC: Cranial nerves II through XII intact MUSKULOSKELETAL: Able to move all extremities, strength equal bilaterally, gait normal PSYCHIATRIC: Alert and oriented to person place and time, appropriate affect, intact judgment and insight - Allied health notes Allied health notes reviewed: nursing - Labs CBC & Chem 7: 05/20/22 07:56 05/20/22 07:56 Labs: Abnormal Lab Results - Last 24 Hours (Table) 05/20/22 05/20/22 05/20/22 Range/Units 07:53 07:56 07:56 RBC 2.64 L (4.30-5.90) m/uL Hgb 8.0 L (13.0-17.5) gm/dL Hct 26.0 L (39.0-53.0) % MCHC 30.7 L (31.0-37.0) g/dL RDW 17.7 H (11.5-15.5) % Carbon Dioxide 34 H (22-30) mmol/L Glucose 125 H (74-99) mg/dL POC Glucose (mg/dL) 126 H (70-110) mg/dL Calcium 7.7 L (8.4-10.2) mg/dL 05/20/22 05/20/22 05/20/22 Range/Units 12:31 17:22 19:51 RBC (4.30-5.90) m/uL Hgb (13.0-17.5) gm/dL Hct (39.0-53.0) % MCHC (31.0-37.0) g/dL RDW (11.5-15.5) % Carbon Dioxide (22-30) mmol/L Glucose (74-99) mg/dL POC Glucose (mg/dL) 174 H 320 H 217 H (70-110) mg/dL Calcium (8.4-10.2) mg/dL 05/21/22 Range/Units 05:52 RBC (4.30-5.90) m/uL Hgb (13.0-17.5) gm/dL Hct (39.0-53.0) % MCHC (31.0-37.0) g/dL RDW (11.5-15.5) % Carbon Dioxide (22-30) mmol/L Glucose (74-99) mg/dL POC Glucose (mg/dL) 149 H (70-110) mg/dL Calcium (8.4-10.2) mg/dL Microbiology - Last 24 Hours (Table) 05/19/22 16:13 Blood Culture - Preliminary Blood No Growth after 24 hours 05/19/22 16:20 Blood Culture - Preliminary Blood No Growth after 24 hours - Imaging and Cardiology Chest x-ray: image reviewed Assessment and Plan Assessment: 1. Acute on chronic systolic heart failure 2. Influenza A PCR positive on admission 3. Shortness of breath, hypoxia secondary to above 4. History of Severe mitral valve regurgitation, status post mitral valve repair 04/19/22 5. Coronary artery disease, previous PCI, previous non-STEMI, status post CABG 3 04/19/22 6. History of paroxysmal atrial fibrillation, previous cardioversion, on [facility] outpatient for anticoagulation, status post modified Castanon maze and l igation of left atrial appendage 7. Patent foramen ovale, status post closure 8. Chronic systolic congestive heart failure, ischemic cardiomyopathy with EF 40-45% 9. History of hypertension 10. History hyperlipidemia, treated, cholesterol 150, LDL 72 11. Right internal carotid stenosis 50-79% 12. 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 Chronic renal failure, baseline creatinine 1.28-1.6 14. Diabetes mellitus type 2, preoperative hemoglobin A1c 5.6% 15. Osteoarthritis, chronic low back pain 16. Severe COPD, preoperative FEV1 41% of predicted 17. Previous nicotine dependence 18. Sacral stage II ulcer status post debridement 19. Medical debility, generalized weakness 20. History of small left-sided pleural effusion, status post left-sided thoracentesis on 04/30/2022 21. History of urinary retention possibly secondary to constipation Plan: 1. Continue aspirin, statin, beta siomara therapy. Continue Eliquis 2. Continue to diurese with IV Lasix. May discharge on IV lasix as patient will have IV in place for antibiotics 3. Wean O2 as tolerated. Encouraged him spirometry is 10 times every hour while awake. Bronchodilators per pulmonology 4. Continue IV Zosyn per infectious disease recommendations for 1 week 5. Increase activity, ambulate as tolerated. PT/OT/cardiac rehab consulted 6. GI/DVT prophylaxis 7. Insulin management per internal medicine, patient needs to blood sugar control to prevent further infection and promote healing 8. Pain control with current medication regimen 9. Strict accurate intake and output, daily weights 10. Patient must shower daily, remove decubitus dressing and clean decubitus in the shower, reapply dressing 11. Will converse with Bethany about influenza A status and return ability of patient 12. Continue sternal precautions, no lifting/pulling/pushing anything heavier than 10 pounds for a full 12 weeks post surgery 13. Recommend discharging from hospital as soon as possible 14. More recommendations to follow
[2022-05-21] MEDS: FUROSEMIDE 10 MG/ML 4 ML VIAL IV SCH ×2 (09:02→21:17)
[2022-05-21] MEDS: APIXABAN 5 MG TAB PO SCH ×2 (09:03→17:02)
[2022-05-21] MEDS: METOPROLOL TARTRATE 25 MG TAB PO SCH ×2 (09:03→17:02)
[2022-05-21] MEDS: PANTOPRAZOLE 40 MG TABLET PO SCH ×2 (09:03→17:02)
[2022-05-21] MEDS: FERROUS SULFATE 325 MG TAB PO SCH ×2 (09:03→17:02)
[2022-05-21] MEDS: TAMSULOSIN 0.4 MG CAP.ER.24H PO SCH (09:03)
[2022-05-21 09:04] LABS: HCT 24.4 % (39.6-50.0); HGB 7.4 g/dL (13.0-17.0); MCH 29.7 pg (27.0-32.0); MCHC 30.3 g/dL (32.0-37.0); Mean Platelet Volume 9.8 fL (9.5-12.2); NRBC Per 100 WBC 0 /100 WBCS (0.0-0.0); Platelet Count 300 X 10*3/uL (140-440); RBC 2.49 X 10*6/uL (4.40-5.60); RDW 18.2 % (11.5-14.5)
--- NOTE | 2022-05-21 09:12 | XR ---
EXAMINATION TYPE: XR chest 1V portable DATE OF EXAM: 05/21/2022 COMPARISON: 05/20/2022 INDICATION: Postcardiac surgery TECHNIQUE: Single frontal view of the chest is obtained. FINDINGS: The heart size is mildly prominent. The pulmonary vasculature is normal. Bibasilar infiltrates are present. Small pleural effusions are present. Sternotomy wires are present. IMPRESSION: 1. Bibasilar infiltrates with small bilateral pleural effusions, stable from comparison.
[2022-05-21 09:23] LABS: African American GFR (CKD) 76.8 (60.0-200.0); Anion Gap 8.5 mmol/L (10.00-18.00); BUN/Creat Ratio 11.45 Ratio (12.00-20.00); Blood Urea Nitrogen 12.6 mg/dL (9.0-27.0); Calcium 8.2 mg/dL (8.7-10.3); Carbon Dioxide 29.5 mmol/L (20.0-27.5); Non-African American GFR(CKD) 66.2 (60.0-200.0); Potassium 4.2 mmol/L (3.5-5.5)
[2022-05-21] MEDS: COLLAGENASE 250 UNIT/GM OINTMENT 30 GM TUBE TOPICAL SCH (10:09)
[2022-05-21] MEDS: LIDOCAINE 5% PATCH TOPICAL SCH (10:10)
--- NOTE | 2022-05-21 11:02 | P.PN ---
Subjective Progress Note Date: 05/21/22 History of present illness: This pleasant 72-year-old gentleman who follows with Dr. Man in the office. He has a past medical history of persistent atrial fibrillation status post cardioversion, severe mitral valve regurgitation status post mitral valve repair as well as CAD with previous PCI and non-STEMI status post CABG 3 with closure of PFO on 04/19/2022, chronic systolic congestive heart failure, ischemic cardiomyopathy with an ejection fraction of 40-45%, hypertension, hyperlipidemia, right internal carotid artery stenosis, acute on chronic blood loss anemia, chronic kidney failure, type 2 diabetes, COPD and prior nicotine dependence. Was recently discharged tomorrow would for subacute rehab on 05/18/2022 after spending 29 days in the hospital postoperatively. 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 Foll owing discharge tomorrow would he developed progressively worsening shortness of breath, orthopnea and edema with hypoxemia requiring initiation of oxygen therapy. He was brought back to [facility] yesterday. Labs showed hemoglobin 7.5 with a subsequent dryness morning of 8.0, d-dimer 1.85, sodium 136, BUN 16, creatinine 1.06, minimal troponin elevation at 0.039 and an NT proBNP of 10,700. EKG showed sinus mechanism with nonspecific ST-T wave abnormalities but no evidence of acute ischemia. Chest x-ray showed cardiomegaly, pulmonary vascular congestion and bilateral pleural effusions, correlate with BNP for congestive heart failure. Subsequent chest x-ray this morning showed bilateral pleural effusions with right sided airspace opacities which could represent atelectasis versus developing pneumonia, clinical correlation. He did test positive for influenza A. He has been initiated on Lasix IV push 40 mg every 12 hours. Renal function this morning show some improvement compared to yesterday. He is overall feeling better. He feels the edema has significantly improved and his breathing is better. He's had no complaints of chest discomfort. Denies any palpitations, dizziness or lightheadedness. 05/21 Patient continues to have lower extremity edema. He denies having chest pain. He is currently on Lasix 40 mg IV every 12 hours. Urine output 2.3 L over the past 24 hours. Repeat blood work reveals hemoglobin of 7.4. Potassium 4.2, BUN 12 and creatinine 1.1. Pulse ox is 96% on 2 L, blood pressure 127/69, heart rate in the 70s. Repeat chest x-ray reveals bibasilar infiltrates with small bilateral pleural effusions, stable. PHYSICAL EXAMINATION: This is a 72-year-old male in no apparent distress at the time of my examination. HEENT: Head is atraumatic, normocephalic. Pupils are equal, round. Sclerae anicteric. Conjunctivae are clear. Mucous membranes of the mouth are moist. There is no elevated jugular venous pressure. CHEST EXAMINATION: Lungs reveal diminished air entry bilaterally with bibasilar crackles. No wheezes or rhonchi. Respirations even and nonlabored. HEART EXAMINATION: Heart regular, positive S1 and S2. No S3. No S4. Sternal incision healing well, stable. ABDOMEN: Soft, nontender. Bowel sounds are heard. No organomegaly noted. EXTREMITIES: 2+ peripheral pulses with evidence of mild to moderate peripheral edema and no calf tenderness noted. NEUROLOGIC EXAMINATION: Patient is awake, alert and oriented x3. Assessment: #1 acute on chronic systolic congestive heart failure #2 influenza A #3 severe mitral valve regurgitation status post mitral valve repair 04/19/2022 #4 CAD with prior PCI status post CABG 3 04/19/2022 #5 persistent atrial fibrillation, status post cardioversion, maintaining sinus mechanism, anticoagulated, status post modified Castanon maze and ligation of left atrial appendage #6 PFO status post closure #7 ischemic cardiomyopathy with an ejection fraction of 40-45% #8 hypertension #9 hyperlipidemia #10 right internal carotid stenosis #11 anemia, stable #12 COPD Plan: From cardiology's perspective heart failure likely exacerbated by underlying influenza infection. Continue IV Lasix for another 24 hours. We will continue to maximize medical therapy. Continue anticoagulation. Continue to monitor renal function and electrolytes. Continue to monitor daily weights and intake and output. We will continue to follow the patient and provide further recommendations accordingly. WAIST CUTTER note has been reviewed, I agree with a documented findings and plan of care. Patient was seen and examined. Objective - Vital Signs Vital signs: Vital Signs Temp 97.9 F 05/21/22 07:00 Pulse 76 05/21/22 07:35 Resp 22 12/19/22 07:00 BP 127/69 05/21/22 07:00 Pulse Ox 96 05/21/22 07:25 FiO2 Intake & Output 05/20/22 05/21/22 05/21/22 18:59 06:59 18:59 Intake Total 600 Output Total 925 1375 Balance -925 -1375 600 Weight 87.6 kg 89.1 kg Intake: Oral 600 Output: Urine 925 1375 Other: Voiding Method Urinal # Voids 1 - Labs CBC & Chem 7: 05/21/22 06:10 05/21/22 06:10 Labs: Abnormal Lab Results - Last 24 Hours (Table) 05/20/22 05/20/22 05/20/22 Range/Units 12:31 17:22 19:51 RBC (4.40-5.60) X 10*6/uL Hgb (13.0-17.0) g/dL Hct (39.6-50.0) % MCV (80.0-97.0) fL MCHC (32.0-37.0) g/dL RDW (11.5-14.5) % Carbon Dioxide (20.0-27.5) mmol/L Anion Gap (10.00-18.00) mmol/L BUN/Creatinine Ratio (12.00-20.00) Ratio Glucose (70-110) mg/dL POC Glucose (mg/dL) 174 H 320 H 217 H (70-110) mg/dL Calcium (8.7-10.3) mg/dL 05/21/22 05/21/22 05/21/22 Range/Units 05:52 06:10 06:10 RBC 2.49 L (4.40-5.60) X 10*6/uL Hgb 7.4 L (13.0-17.0) g/dL Hct 24.4 L (39.6-50.0) % MCV 98.0 H (80.0-97.0) fL MCHC 30.3 L (32.0-37.0) g/dL RDW 18.2 H (11.5-14.5) % Carbon Dioxide 29.5 H (20.0-27.5) mmol/L Anion Gap 8.50 L (10.00-18.00) mmol/L BUN/Creatinine Ratio 11.45 L (12.00-20.00) Ratio Glucose 138 H (70-110) mg/dL POC Glucose (mg/dL) 149 H (70-110) mg/dL Calcium 8.2 L (8.7-10.3) mg/dL Microbiology - Last 24 Hours (Table) 05/19/22 16:13 Blood Culture - Preliminary Blood No Growth after 24 hours 05/19/22 16:20 Blood Culture - Preliminary Blood No Growth after 24 hours
[2022-05-21 11:27] LABS: Glucose,Whole Blood 226 mg/dL (70-110)
[2022-05-21] MEDS: ASCORBIC ACID 500 MG TAB PO SCH (11:59)
[2022-05-21] MEDS: ASPIRIN 81 MG PO SCH (11:59)
[2022-05-21] MEDS: ATORVASTATIN 40 MG TAB PO SCH (17:02)
[2022-05-21] MEDS: VIT A,C & E-LUTEIN-MINERALS 1 EACH TAB PO SCH (17:04)
[2022-05-21 17:22] LABS: Glucose,Whole Blood 171 mg/dL (70-110)
[2022-05-21 20:37] LABS: Glucose,Whole Blood 190 mg/dL (70-110)
[2022-05-22] MEDS: IPRATROPIUM-ALBUTEROL 3 ML NEB INHALATION PRN ×2 (00:40→04:41)
--- NOTE | 2022-05-22 03:29 | P.PN ---
Subjective Progress Note Date: 05/21/22 72-year-old male had a recent with coronary artery disease and CABG 3 and a close the PFO on 19 of April came in with compensative shortness of breath on weaning can start failure patient has EF of around the 40 with 50%. Patient has bilateral lower sweaty edema. was having orthopnea paroxysmal nocturnal dyspnea does have a pulmonary edema on the chest x-ray patient was started on IV Lasix BNP is around 10,000. 05/21/2022 Patient is seen and evaluated this morning currently sitting up in chair with at bedside. Patient is maintained on breathing treatments along with IV Lasix and currently maintaining saturations above 90% on room air. Patient's lower extremities elevated slightly in continued on compression stockings. CT surgery following recommending continued IV diuresis and discharge planning process for [facility]. Patient continues with significant weakness and will need ECF upon discharge. Lung sounds were with crackles noted and will continue IV Lasix and follow-up repeat labs. Patient continues with chest wall pain and heart hugger is noted. Incentive spirometer at the bedside and encourage the patient to continue using at least 10 times every hour while awake. Patient is afebrile denies worsening shortness of breath. Encourage the patient to continu e elevating lower extremities while at rest. Will have PT/OT evaluate the patient Review of systems: Constitutional: No reports of fatigue, fever, or chills Cardiovascular: No reports of chest pain or palpitations, reports chest wall pain with movement and coughing Respiratory: No reports of worsening shortness of breath or cough GI: No reports of nausea, vomiting, or diarrhea : No reports of dysuria or retention Neurovascular: reports of generalized weakness and reports improvement in lower extremity edema All medications have been reviewed PHYSICAL EXAMINATION: GENERAL: The patient is alert and oriented x3, not in any acute distress. Well developed, well nourished. HEENT: Pupils are round and equally reacting to light. EOMI. No scleral icterus. No conjunctival pallor. Normocephalic, atraumatic. No pharyngeal erythema. No thyromegaly. CARDIOVASCULAR: S1 and S2 present. No murmurs, rubs, or gallops. Elevated JVD PULMONARY: Chest is clear to auscultation, bilateral lower lobe crackles noted. ABDOMEN: Soft, nontender, nondistended, normoactive bowel sounds. No palpable or ganomegaly. MUSCULOSKELETAL: No joint swelling or deformity. EXTREMITIES: No cyanosis, clubbing, bilateral lower extremity edema noted with compression stockings NEUROLOGICAL: Gross neurological examination did not reveal any focal deficits. Diffusely weak SKIN: No rashes. Assessment: -Congestive heart failure chronic systolic dysfunction with acute exacerbation: Patient will be continued on IV Lasix continue input and output. -Influenza infection -coronary artery disease with recent PCI and the CABG about a month ago -persistent atrial fibrillation presently in sinus rhythm -Hypertension -hyperlipidemia -COPD without any acute exacerbation -Anemia secondary to surgery which is a chronic anemia, will need further evaluation as an outpatient. -DVT prophylaxis: Patient is on eliquia for atrial fibrillation Plan: Recommend continue current medications and continue with IV Lasix diuresis with follow-up labs Patient seen and evaluated by CT surgery recommending continuing IV diuresis and return to ECF for continued therapy [place] PT/OT to evaluate the patient Recommend continue with breathing treatments and other home medications Patient is continued on IV Zosyn and continued in isolation precautions for influenza Case management following working on discharge planning once patient is stable to ECF Encouraged to increase activity as tolerated and continued incentive spirometer use Encourage the patient elevating lower extremities while at rest Prognosis is guarded The impression and plan of care has been dictated by Angeles Meehan, Nurse Practitioner as directed. Dr. Ila MD I have performed a history and examination and MDM of this patient, discussed the same with the dictator, and agree with the dictator's assessment and plan as written ,documented as a scribe. Based on total visit time, I have performed more than 50% of the visit. Objective - Vital Signs Vital signs: Vital Signs Temp 97.9 F 05/21/22 07:00 Pulse 76 05/21/22 07:35 Resp 22 05/21/22 07:00 BP 127/69 05/21/22 07:00 Pulse Ox 96 05/21/22 07:25 FiO2 Intake & Output 05/20/22 05/21/22 05/21/22 18:59 06:59 18:59 Intake Total 600 Output Total 925 1375 Balance -925 -1375 600 Weight 87.6 kg 89.1 kg Intake: Oral 600 Output: Urine 925 1375 Other: Voiding Method Urinal # Voids 1 - Labs CBC & Chem 7: 05/21/22 06:10 05/21/22 06:10 Labs: Abnormal Lab Results - Last 24 Hours (Table) 05/20/22 05/20/22 05/20/22 Range/Units 12:31 17:22 19:51 RBC (4.40-5.60) X 10*6/uL Hgb (13.0-17.0) g/dL Hct (39.6-50.0) % MCV (80.0-97.0) fL MCHC (32.0-37.0) g/dL RDW (11.5-14.5) % Carbon Dioxide (20.0-27.5) mmol/L Anion Gap (10.00-18.00) mmol/L BUN/Creatinine Ratio (12.00-20.00) Ratio Glucose (70-110) mg/dL POC Glucose (mg/dL) 174 H 320 H 217 H (70-110) mg/dL Calcium (8.7-10.3) mg/dL 05/21/22 05/21/22 05/21/22 Range/Units 05:52 06:10 06:10 RBC 2.49 L (4.40-5.60) X 10*6/uL Hgb 7.4 L (13.0-17.0) g/dL Hct 24.4 L (39.6-50.0) % MCV 98.0 H (80.0-97.0) fL MCHC 30.3 L (32.0-37.0) g/dL RDW 18.2 H (11.5-14.5) % Carbon Dioxide 29.5 H (20.0-27.5) mmol/L Anion Gap 8.50 L (10.00-18.00) mmol/L BUN/Creatinine Ratio 11.45 L (12.00-20.00) Ratio Glucose 138 H (70-110) mg/dL POC Glucose (mg/dL) 149 H (70-110) mg/dL Calcium 8.2 L (8.7-10.3) mg/dL Microbiology - Last 24 Hours (Table) 05/19/22 16:13 Blood Culture - Preliminary Blood No Growth after 24 hours 05/19/22 16:20 Blood Culture - Preliminary Blood No Growth after 24 hours
[2022-05-22 06:05] LABS: Glucose,Whole Blood 159 mg/dL (70-110)
[2022-05-22] MEDS: INSULIN ASPART (NovoLOG) 100 UNIT/ML VIAL SQ SCH ×4 (06:10→21:19)
--- NOTE | 2022-05-22 07:04 | XR ---
EXAMINATION TYPE: XR chest 1V portable DATE OF EXAM: 05/22/2022 CLINICAL HISTORY: Difficulty breathing and CHF progress study. TECHNIQUE: Single AP portable upright view of the chest is obtained. COMPARISON: Chest x-ray from one day earlier and older studies FINDINGS: Overlying sternal wires are redemonstrated. Metallic cardiac valvular ring again seen. Per sistent cardiomegaly with small to moderate-sized bilateral pleural effusions and [id number] in terstitial edema, both slightly more prominent from one day earlier. Bibasilar opacities consistent with associated compressive atelectasis redemonstrated. Osseous structures are demineralized. IMPRESSION: Findings consistent with CHF exacerbation and/or fluid overload state redemonstrated and slightly worsened from one day earlier as detailed above.
[2022-05-22] MEDS: IPRATROPIUM-ALBUTEROL 3 ML NEB INHALATION SCH ×4 (07:11→19:51)
[2022-05-22] MEDS: SYMBICORT 80-4.5 MCG INHALER INHALATION SCH ×2 (07:11→19:51)
[2022-05-22 07:22] LABS: Glucose,Whole Blood 150 mg/dL (70-110)
--- NOTE | 2022-05-22 08:30 | P.PN ---
Subjective Progress Note Date: 05/22/22 Principal diagnosis: Acute on chronic systolic heart failure, Influenza A PCR positive on admission. History of severe mitral valve regurgitation, status post mitral valve repair 04/19/22, coronary artery disease, previous PCI, previous non-STEMI, status post CABG 3 04/19/22, paroxysmal atrial fibrillation, previous cardioversion, on [facility] outpatient for anticoagulation, status post modified Castanon maze and ligation of left atrial appendage, patent foramen ovale, status post closure, chronic systolic congestive heart failure, ischemic cardiomyopathy with EF 40- 45%, hypertension, hyperlipidemia, right internal carotid stenosis 50-79%, chronic blood loss anemia with history of GI bleed in November 2021 S/P transfusion PRBCs, 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 Denies significant chest pain or shortness of breath currently. Remains on 2 L nasal cannula. Urine output 1.9 L in the last 24 hours. Did have a conference call with Bethany SALDIVAR and DON, they are not comfortable taking patient back at this time due to need for IV Lasix, will need to transition to oral prior to return to ECF. Patient does report stooling yesterday, color lightening up per patient. Objective - Vital Signs Vital signs: Vital Signs Temp 98.4 F 05/22/22 07:10 Pulse 84 05/22/22 07:24 Resp 16 05/22/22 07:10 BP 116/62 05/22/22 07:10 Pulse Ox 100 05/22/22 07:10 FiO2 Intake & Output 05/21/22 05/22/22 05/22/22 18:59 06:59 18:59 Intake Total 1378 Output Total 740 1300 Balance 638 -1300 Weight 89.1 kg Intake: Oral 1378 Output: Urine 740 1300 Other: Voiding Method Urinal # Voids 1 # Bowel Movements 1 0 - Exam CONSTITUTIONAL: Appears comfortable, cooperative, no acute distress RESPIRATORY: Lungs sounds diminished bilaterally with faint expiratory wheezes present. Respirations even, nonlabored. Currently on 2 L nasal cannula with oxygen saturation 100%. Able to achieve 1100 mL on incentive spirometry. Strong cough. CARDIOVASCULAR: S1, S2 present. Regular rate and rhythm, sinus rhythm on telemetry. Sternum stable. Palpable peripheral pulses bilaterally. Bilateral lower extremity pitting edema present, less than yesterday. No calf pain or tenderness noted. Heart hugger in place with patient demonstrating appropriate use. Antiembolism stockings present. GASTROINTESTINAL: Abdomen soft, nontender, nondistended. Active bowel sounds present 4 quadrants. Tolerating diet. Positive bowel movement 05/21 GENITOURINARY: Continues to void clear, yellow urine. Output 1890 mL in the last 24 hours INTEGUMENTARY: Skin is warm and dry with evidence of good perfusion. Anterior chest incision well approximated. Bilateral lower extremity EVH sites well approximated without redness or drainage. Stage II present to sacral NEUROLOGIC: Cranial nerves II through XII intact MUSKULOSKELETAL: Able to move all extremities, strength equal bilaterally, gait normal PSYCHIATRIC: Alert and oriented to person place and time, appropriate affect, intact judgment and insight - Labs CBC & Chem 7: 05/21/22 06:10 05/21/22 06:10 Labs: Abnormal Lab Results - Last 24 Hours (Table) 05/21/22 05/21/22 05/21/22 Range/Units 06:10 06:10 11:24 RBC 2.49 L (4.40-5.60) X 10*6/uL Hgb 7.4 L (13.0-17.0) g/dL Hct 24.4 L (39.6-50.0) % MCV 98.0 H (80.0-97.0) fL MCHC 30.3 L (32.0-37.0) g/dL RDW 18.2 H (11.5-14.5) % Carbon Dioxide 29.5 H (20.0-27.5) mmol/L Anion Gap 8.50 L (10.00-18.00) mmol/L BUN/Creatinine Ratio 11.45 L (12.00-20.00) Ratio Glucose 138 H (70-110) mg/dL POC Glucose (mg/dL) 226 H (70-110) mg/dL Calcium 8.2 L (8.7-10.3) mg/dL 05/21/22 05/21/22 05/22/22 Range/Units 17:19 20:36 06:04 RBC (4.40-5.60) X 10*6/uL Hgb (13.0-17.0) g/dL Hct (39.6-50.0) % MCV (80.0-97.0) fL MCHC (32.0-37.0) g/dL RDW (11.5-14.5) % Carbon Dioxide (20.0-27.5) mmol/L Anion Gap (10.00-18.00) mmol/L BUN/Creatinine Ratio (12.00-20.00) Ratio Glucose (70-110) mg/dL POC Glucose (mg/dL) 171 H 190 H 159 H (70-110) mg/dL Calcium (8.7-10.3) mg/dL 05/22/22 Range/Units 07:20 RBC (4.40-5.60) X 10*6/uL Hgb (13.0-17.0) g/dL Hct (39.6-50.0) % MCV (80.0-97.0) fL MCHC (32.0-37.0) g/dL RDW (11.5-14.5) % Carbon Dioxide (20.0-27.5) mmol/L Anion Gap (10.00-18.00) mmol/L BUN/Creatinine Ratio (12.00-20.00) Ratio Glucose (70-110) mg/dL POC Glucose (mg/dL) 150 H (70-110) mg/dL Calcium (8.7-10.3) mg/dL Microbiology - Last 24 Hours (Table) 05/19/22 16:13 Blood Culture - Preliminary Blood No Growth after 48 hours 05/19/22 16:20 Blood Culture - Preliminary Blood No Growth after 48 hours Assessment and Plan Assessment: 1. Acute on chronic systolic heart failure 2. Influenza A PCR positive on admission 3. Shortness of breath, hypoxia secondary to above 4. History of Severe mitral valve regurgitation, status post mitral valve repair 04/19/22 5. Coronary artery disease, previous PCI, previous non-STEMI, status post CABG 3 04/19/22 6. History of paroxysmal atrial fibrillation, previous cardioversion, on Eliquis outpatient for anticoagulation, status post modified Castanon maze and ligation of left atrial appendage 7. Patent foramen ovale, status post closure 8. Chronic systolic congestive heart failure, ischemic cardiomyopathy with EF 40-45% 9. History of hypertension 10. History hyperlipidemia, treated, cholesterol 150, LDL 72 11. Right internal carotid stenosis 50-79% 12. 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 Chronic renal failure, baseline creatinine 1.28-1.6 14. Diabetes mellitus type 2, preoperative hemoglobin A1c 5.6% 15. Osteoarthritis, chronic low back pain 16. Severe COPD, preoperative FEV1 41% of predicted 17. Previous nicotine dependence 18. Sacral stage II ulcer status post debridement 19. Medical debility, generalized weakness 20. History of small left-sided pleural effusion, status post left-sided tho racentesis on 04/30/2022 21. History of urinary retention possibly secondary to constipation Plan: 1. Continue aspirin, statin, beta siomara therapy. Continue Eliquis 2. Continue to diurese with IV Lasix. Will need to transition to oral Lasix for discharge to ECF 3. Wean O2 as tolerated. Encouraged him spirometry is 10 times every hour while awake. Bronchodilators per pulmonology 4. Continue IV Zosyn per infectious disease recommendations for 1 week 5. Increase activity, ambulate as tolerated. PT/OT/cardiac rehab consulted 6. GI/DVT prophylaxis 7. Insulin management per internal medicine, patient needs to blood sugar control to prevent further infection and promote healing 8. Pain control with current medication regimen 9. Strict accurate intake and output, daily weights 10. Patient must shower daily, remove decubitus dressing and clean decubitus in the shower, reapply dressing 11. Continue sternal precautions, no lifting/pulling/pushing anything heavier than 10 pounds for a full 12 weeks post surgery 12. Recommend discharging from hospital as soon as possible 13. More recommendations to follow
[2022-05-22] MEDS: LIDOCAINE 5% PATCH TOPICAL SCH ×2 (09:04→11:49)
[2022-05-22] MEDS: PIPERACILLIN-TAZOBACTAM 3.375 GM in SODIUM CHLORIDE 0.9% 100 ML IVPB SCH ×2 (09:05→16:16)
[2022-05-22] MEDS: FUROSEMIDE 10 MG/ML 4 ML VIAL IV SCH ×2 (09:05→20:28)
[2022-05-22] MEDS: TAMSULOSIN 0.4 MG CAP.ER.24H PO SCH (09:05)
[2022-05-22] MEDS: APIXABAN 5 MG TAB PO SCH ×2 (09:05→17:47)
[2022-05-22] MEDS: METOPROLOL TARTRATE 25 MG TAB PO SCH ×2 (09:06→17:47)
[2022-05-22] MEDS: FERROUS SULFATE 325 MG TAB PO SCH ×2 (09:06→17:47)
[2022-05-22] MEDS: PANTOPRAZOLE 40 MG TABLET PO SCH ×2 (09:06→17:49)
[2022-05-22 09:08] LABS: African American GFR (CKD) 97.9 (60.0-200.0); Anion Gap 10.2 mmol/L (10.00-18.00); BUN/Creat Ratio 12.89 Ratio (12.00-20.00); Blood Urea Nitrogen 11.6 mg/dL (9.0-27.0); Calcium 8.1 mg/dL (8.7-10.3); Carbon Dioxide 28.8 mmol/L (20.0-27.5); Non-African American GFR(CKD) 84.4 (60.0-200.0); Potassium 4.3 mmol/L (3.5-5.5)
[2022-05-22] MEDS: DAPAGLIFLOZIN PROPANEDIOL 10 MG TABLET PO SCH (09:25)
[2022-05-22] MEDS: COLLAGENASE 250 UNIT/GM OINTMENT 30 GM TUBE TOPICAL SCH (09:25)
--- NOTE | 2022-05-22 10:18 | P.PN ---
Subjective Progress Note Date: 05/22/22 History of present illness: This pleasant 72-year-old gentleman who follows with Dr. Man in the office. He has a past medical history of persistent atrial fibrillation status post cardioversion, severe mitral valve regurgitation status post mitral valve repair as well as CAD with previous PCI and non-STEMI status post CABG 3 with closure of PFO on 04/19/2022, chronic systolic congestive heart failure, ischemic cardiomyopathy with an ejection fraction of 40-45%, hypertension, hyperlipidemia, right internal carotid artery stenosis, acute on chronic blood loss anemia, chronic kidney failure, type 2 diabetes, COPD and prior nicotine dependence. Was recently discharged tomorrow would for subacute rehab on 05/18/2022 after spending 29 days in the hospital postoperatively. 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 Foll owing discharge tomorrow would he developed progressively worsening shortness of breath, orthopnea and edema with hypoxemia requiring initiation of oxygen therapy. He was brought back to [facility] yesterday. Labs showed hemoglobin 7.5 with a subsequent dryness morning of 8.0, d-dimer 1.85, sodium 136, BUN 16, creatinine 1.06, minimal troponin elevation at 0.039 and an NT proBNP of 10,700. EKG showed sinus mechanism with nonspecific ST-T wave abnormalities but no evidence of acute ischemia. Chest x-ray showed cardiomegaly, pulmonary vascular congestion and bilateral pleural effusions, correlate with BNP for congestive heart failure. Subsequent chest x-ray this morning showed bilateral pleural effusions with right sided airspace opacities which could represent atelectasis versus developing pneumonia, clinical correlation. He did test positive for influenza A. He has been initiated on Lasix IV push 40 mg every 12 hours. Renal function this morning show some improvement compared to yesterday. He is overall feeling better. He feels the edema has significantly improved and his breathing is better. He's had no complaints of chest discomfort. Denies any palpitations, dizziness or lightheadedness. 05/21 Patient continues to have lower extremity edema. He denies having chest pain. He is currently on Lasix 40 mg IV every 12 hours. Urine output 2.3 L over the past 24 hours. Repeat blood work reveals hemoglobin of 7.4. Potassium 4.2, BUN 12 and creatinine 1.1. Pulse ox is 96% on 2 L, blood pressure 127/69, heart rate in the 70s. Repeat chest x-ray reveals bibasilar infiltrates with small bilateral pleural effusions, stable. 05/22 Patient continues to have shortness of breath hadn't multiple updraft treatments through the night. He is on IV Lasix 40 mg every 12 hours. Heart rate has been in the 80s, blood pressure 116/62, pulse ox 92% on 2 L.potassium 4.3, BUN 11 and creatinine 0.9. Repeat chest x-ray reveals CHF exacerbation and/or fluid overload state he demonstrated a slightly worsened 1 day prior. PHYSICAL EXAMINATION: This is a 72-year-old male in no apparent distress at the time of my examination. HEENT: Head is atraumatic, normocephalic. Pupils are equal, round. Sclerae anicteric. Conjunctivae are clear. Mucous membranes of the mouth are moist. There is no elevated jugular venous pressure. CHEST EXAMINATION: Lungs reveal diminished air entry bilaterally with bibasilar crackles. Bilat wheezing. Respirations even and nonlabored. HEART EXAMINATION: Heart regular, positive S1 and S2. No S3. No S4. Sternal incision healing well, stable. ABDOMEN: Soft, nontender. Bowel sounds are heard. No organomegaly noted. EXTREMITIES: 2+ peripheral pulses with evidence of mild to moderate peripheral edema and no calf tenderness noted. NEUROLOGIC EXAMINATION: Patient is awake, alert and oriented x3. Assessment: #1 acute on chronic systolic congestive heart failure #2 influenza A #3 severe mitral valve regurgitation status post mitral valve repair 04/19/2022 #4 CAD with prior PCI status post CABG 3 04/19/2022 #5 persistent atrial fibrillation, status post cardioversion, maintaining sinus mechanism, anticoagulated, status post modified Castanon maze and ligation of left atrial appendage #6 PFO status post closure #7 ischemic cardiomyopathy with an ejection fraction of 40-45% #8 hypertension #9 hyperlipidemia #10 right internal carotid stenosis #11 anemia, stable #12 COPD Plan: From cardiology's perspective heart failure likely exacerbated by underlying influenza infection. Continue IV Lasix for another 24 hours. We will continue to maximize medical therapy. Continue anticoagulation. Continue to monitor renal function and electrolytes. Continue to monitor daily weights and intake and output. We will continue to follow the patient and provide further recommendations accordingly. OFFICE HELPER note has been reviewed, I agree with a documented findings and plan of care. Patient was seen and examined. Objective - Vital Signs Vital signs: Vital Signs Temp 98.1 F 05/22/22 02:21 Pulse 84 05/22/22 07:11 Resp 19 05/22/22 02:21 BP 128/67 05/22/22 02:21 Pulse Ox 92 L 05/22/22 02:21 FiO2 Intake & Output 05/21/22 05/22/22 05/22/22 18:59 06:59 18:59 Intake Total 1378 Output Total 740 1300 Balance 638 -1300 Weight 89.1 kg Intake: Oral 1378 Output: Urine 740 1300 Other: Voiding Method Urinal # Voids 1 # Bowel Movements 1 0 - Labs CBC & Chem 7: 05/21/22 06:10 05/22/22 05:48 Labs: Abnormal Lab Results - Last 24 Hours (Table) 05/21/22 05/21/22 05/21/22 Range/Units 06:10 06:10 11:24 RBC 2.49 L (4.40-5.60) X 10*6/uL Hgb 7.4 L (13.0-17.0) g/dL Hct 24.4 L (39.6-50.0) % MCV 98.0 H (80.0-97.0) fL MCHC 30.3 L (32.0-37.0) g/dL RDW 18.2 H (11.5-14.5) % Carbon Dioxide 29.5 H (20.0-27.5) mmol/L Anion Gap 8.50 L (10.00-18.00) mmol/L BUN/Creatinine Ratio 11.45 L (12.00-20.00) Ratio Glucose 138 H (70-110) mg/dL POC Glucose (mg/dL) 226 H (70-110) mg/dL Calcium 8.2 L (8.7-10.3) mg/dL 05/21/22 05/21/22 05/22/22 Range/Units 17:19 20:36 06:04 RBC (4.40-5.60) X 10*6/uL Hgb (13.0-17.0) g/dL Hct (39.6-50.0) % MCV (80.0-97.0) fL MCHC (32.0-37.0) g/dL RDW (11.5-14.5) % Carbon Dioxide (20.0-27.5) mmol/L Anion Gap (10.00-18.00) mmol/L BUN/Creatinine Ratio (12.00-20.00) Ratio Glucose (70-110) mg/dL POC Glucose (mg/dL) 171 H 190 H 159 H (70-110) mg/dL Calcium (8.7-10.3) mg/dL Microbiology - Last 24 Hours (Table) 05/19/22 16:13 Blood Culture - Preliminary Blood No Growth after 48 hours 05/19/22 16:20 Blood Culture - Preliminary Blood No Growth after 48 hours
[2022-05-22 12:06] LABS: Glucose,Whole Blood 180 mg/dL (70-110)
[2022-05-22] MEDS: ASCORBIC ACID 500 MG TAB PO SCH (12:28)
[2022-05-22] MEDS: ASPIRIN 81 MG PO SCH (12:28)
[2022-05-22] MEDS: VIT A,C & E-LUTEIN-MINERALS 1 EACH TAB PO SCH (16:16)
[2022-05-22 17:14] LABS: Glucose,Whole Blood 204 mg/dL (70-110)
[2022-05-22] MEDS: ATORVASTATIN 40 MG TAB PO SCH (17:47)
[2022-05-22 21:01] LABS: Glucose,Whole Blood 195 mg/dL (70-110)
[2022-05-23] MEDS: PIPERACILLIN-TAZOBACTAM 3.375 GM in SODIUM CHLORIDE 0.9% 100 ML IVPB SCH ×4 (00:18→23:10)
[2022-05-23] MEDS: IPRATROPIUM-ALBUTEROL 3 ML NEB INHALATION PRN ×2 (00:29→03:50)
--- NOTE | 2022-05-23 03:16 | P.PN ---
Subjective Progress Note Date: 05/22/22 72-year-old male had a recent with coronary artery disease and CABG 3 and a close the PFO on 19 of April came in with compensative shortness of breath on weaning can start failure patient has EF of around the 40 with 50%. Patient has bilateral lower sweaty edema. was having orthopnea paroxysmal nocturnal dyspnea does have a pulmonary edema on the chest x-ray patient was started on IV Lasix BNP is around 10,000. 05/21/2022 Patient is seen and evaluated this morning currently sitting up in chair with at bedside. Patient is maintained on breathing treatments along with IV Lasix and currently maintaining saturations above 90% on room air. Patient's lower extremities elevated slightly in continued on compression stockings. CT surgery following recommending continued IV diuresis and discharge planning process for [facility]. Patient continues with significant weakness and will need ECF upon discharge. Lung sounds were with crackles noted and will continue IV Lasix and follow-up repeat labs. Patient continues with chest wall pain and heart hugger is noted. Incentive spirometer at the bedside and encourage the patient to continue using at least 10 times every hour while awake. Patient is afebrile denies worsening shortness of breath. Encourage the patient to continu e elevating lower extremities while at rest. Will have PT/OT evaluate the patient 05/22/2022 Patient is seen in follow-up this morning lying in bed appears dyspneic at rest continued on 2 L via nasal cannula. Chest x-ray shows CHF and is maintained on IV Lasix with CT surgery cardiology following. Patient also appears significantly pale will follow-up with a.m. labs. Most recent hemoglobin was 7.4. Patient continues to be dyspneic with minimal exertion and during conversation and appears generally ill. Patient extremely weak will be returning to rehab once more stable. Recommend follow-up labs in the a.m. Patient is currently afebrile denies chest pain or palpitations. Patient con tinues to report shortness of breath. Oral intake is fair and need encouragement. Recommend to monitor blood sugars before meals and at bedtime and will use sliding scale as needed. Review of systems: Constitutional: reports of fatigue, no fever, or chills Cardiovascular: No reports of chest pain or palpitations, reports chest wall pain with movement and coughing Respiratory: No reports of worsening shortness of breath, reports continued shortness of breath with minimal movement GI: No reports of nausea, vomiting, or diarrhea, reports decreased appetite : No reports of dysuria or retention Neurovascular: reports of generalized weakness and reports improvement in lower extremity edema All medications have been reviewed PHYSICAL EXAMINATION: GENERAL: The patient is alert and oriented x3, sleeping but arousable, dyspneic with conversation, ill-appearing Well developed, well nourished. HEENT: Pupils are round and equally reacting to light. EOMI. No scleral icterus. No conjunctival pallor. Normocephalic, atraumatic. No pharyngeal erythema. No thyromegaly. CARDIOVASCULAR: S1 and S2 present. No murmurs, rubs, or gallops. Elevated JVD PULMONARY: bilateral lower lobe crackles noted. Diminished breath sounds bilaterally ABDOMEN: Soft, nontender, nondistended, normoactive bowel sounds. No palpable organomegaly. MUSCULOSKELETAL: No joint swelling or deformity. EXTREMITIES: No cyanosis, clubbing, bilateral lower extremity edema noted with compression stockings NEUROLOGICAL: Gross neurological examination did not reveal any focal deficits. Diffusely weak SKIN: No rashes. Assessment: -Congestive heart failure chronic systolic dysfunction with acute exacerbation: Patient will be continued on IV Lasix -Influenza infection -coronary artery disease with recent PCI and CABG about a month ago -persistent atrial fibrillation presently in sinus rhythm -Hypertension -hyperlipidemia -COPD without any acute exacerbation -Anemia secondary to surgery which is a chronic anemia, will need further evaluation as an outpatient. -DVT prophylaxis: Patient is on eliquis for atrial fibrillation Plan: Recommend to continue current medications and continue with IV Lasix diuresis with follow-up labs Patient seen and evaluated by CT surgery recommending continuing IV diuresis and return to ECF for continued therapy PT/OT to evaluate the patient Recommend continue with breathing treatments and other home medications Patient is continued on IV Zosyn and continued in isolation precautions for influenza Case management following working on discharge planning once patient is stable to ECF Encouraged to increase activity as tolerated and continued incentive spirometer use Encourage the patient elevating lower extremities while at rest Prognosis is guarded The impression and plan of care has been dictated by Angeles Meehan, Nurse Practitioner as directed. Dr. Ila MD I have performed a history and examination and MDM of this patient, discussed t he same with the dictator, and agree with the dictator's assessment and plan as written ,documented as a scribe. Based on total visit time, I have performed more than 50% of the visit. Objective - Vital Signs Vital signs: Vital Signs Temp 98.4 F 05/22/22 07:10 Pulse 84 05/22/22 07:24 Resp 16 05/22/22 09:02 BP 116/62 05/22/22 07:10 Pulse Ox 100 05/22/22 07:10 FiO2 Intake & Output 05/21/22 05/22/22 05/22/22 18:59 06:59 18:59 Intake Total 1378 473 Output Total 740 1300 Balance 638 -1300 473 Weight 89.1 kg Intake: Oral 1378 473 Output: Urine 740 1300 Other: Voiding Method Urinal # Voids 1 # Bowel Movements 1 0 - Labs CBC & Chem 7: 05/21/22 06:10 05/22/22 05:48 Labs: Abnormal Lab Results - Last 24 Hours (Table) 05/21/22 05/21/22 05/21/22 Range/Units 11:24 17:19 20:36 Carbon Dioxide (20.0-27.5) mmol/L Glucose (70-110) mg/dL POC Glucose (mg/dL) 226 H 171 H 190 H (70-110) mg/dL Calcium (8.7-10.3) mg/dL 05/22/22 05/22/22 05/22/22 Range/Units 05:48 06:04 07:20 Carbon Dioxide 28.8 H (20.0-27.5) mmol/L Glucose 153 H (70-110) mg/dL POC Glucose (mg/dL) 159 H 150 H (70-110) mg/dL Calcium 8.1 L (8.7-10.3) mg/dL Microbiology - Last 24 Hours (Table) 05/19/22 16:13 Blood Culture - Preliminary Blood No Growth after 48 hours 05/19/22 16:20 Blood Culture - Preliminary Blood No Growth after 48 hours
[2022-05-23] MEDS: HYDROcodone/APAP 5-325MG 1 EACH TAB PO PRN ×2 (04:32→22:14)
[2022-05-23 06:08] LABS: Glucose,Whole Blood 148 mg/dL (70-110)
[2022-05-23] MEDS: INSULIN ASPART (NovoLOG) 100 UNIT/ML VIAL SQ SCH ×4 (06:09→21:42)
[2022-05-23] MEDS: SYMBICORT 80-4.5 MCG INHALER INHALATION SCH ×2 (08:08→19:30)
[2022-05-23] MEDS: IPRATROPIUM-ALBUTEROL 3 ML NEB INHALATION SCH ×4 (08:08→19:30)
[2022-05-23 08:11] LABS: Glucose,Whole Blood 144 mg/dL (70-110)
--- NOTE | 2022-05-23 08:27 | XR ---
EXAMINATION TYPE: XR chest 1V portable DATE OF EXAM: 05/23/2022 COMPARISON: 05/22/2022 HISTORY: SOB, Follow Up FINDINGS: Persistent cardiomegaly with the bilateral pleural effusions and right lower lobe infiltrate. Overall appearance is stable.. Sternotomy wires and mediastinal clips noted. Bony thorax is intact. IMPRESSION: 1. Stable portable chest. Clinical correlation and follow up until resolution is recommended.
--- NOTE | 2022-05-23 08:49 | P.PN ---
Subjective Progress Note Date: 05/23/22 History of present illness: This pleasant 72-year-old gentleman who follows with Dr. Man in the office. He has a past medical history of persistent atrial fibrillation status post cardioversion, severe mitral valve regurgitation status post mitral valve repair as well as CAD with previous PCI and non-STEMI status post CABG 3 with closure of PFO on 04/19/2022, chronic systolic congestive heart failure, ischemic cardiomyopathy with an ejection fraction of 40-45%, hypertension, hyperlipidemia, right internal carotid artery stenosis, acute on chronic blood loss anemia, chronic kidney failure, type 2 diabetes, COPD and prior nicotine dependence. Was recently discharged tomorrow would for subacute rehab on 05/18/2022 after spending 29 days in the hospital postoperatively. 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 Foll owing discharge tomorrow would he developed progressively worsening shortness of breath, orthopnea and edema with hypoxemia requiring initiation of oxygen therapy. He was brought back to [facility] yesterday. Labs showed hemoglobin 7.5 with a subsequent dryness morning of 8.0, d-dimer 1.85, sodium 136, BUN 16, creatinine 1.06, minimal troponin elevation at 0.039 and an NT proBNP of 10,700. EKG showed sinus mechanism with nonspecific ST-T wave abnormalities but no evidence of acute ischemia. Chest x-ray showed cardiomegaly, pulmonary vascular congestion and bilateral pleural effusions, correlate with BNP for congestive heart failure. Subsequent chest x-ray this morning showed bilateral pleural effusions with right sided airspace opacities which could represent atelectasis versus developing pneumonia, clinical correlation. He did test positive for influenza A. He has been initiated on Lasix IV push 40 mg every 12 hours. Renal function this morning show some improvement compared to yesterday. He is overall feeling better. He feels the edema has significantly improved and his breathing is better. He's had no complaints of chest discomfort. Denies any palpitations, dizziness or lightheadedness. 05/21 Patient continues to have lower extremity edema. He denies having chest pain. He is currently on Lasix 40 mg IV every 12 hours. Urine output 2.3 L over the past 24 hours. Repeat blood work reveals hemoglobin of 7.4. Potassium 4.2, BUN 12 and creatinine 1.1. Pulse ox is 96% on 2 L, blood pressure 127/69, heart rate in the 70s. Repeat chest x-ray reveals bibasilar infiltrates with small bilateral pleural effusions, stable. 05/22 Patient continues to have shortness of breath hadn't multiple updraft treatments through the night. He is on IV Lasix 40 mg every 12 hours. Heart rate has been in the 80s, blood pressure 116/62, pulse ox 92% on 2 L.potassium 4.3, BUN 11 and creatinine 0.9. Repeat chest x-ray reveals CHF exacerbation and/or fluid overload state he demonstrated a slightly worsened 1 day prior. 05/23 Patient states that he had a rough night and required nebulizer treatments every couple hours. He continues to have some crackles in the lungs, wheezing improved, no lower extremity edema. We will plan to continue IV Lasix for another 24 hours. Repeat chest x-ray reveals stable portable chest. PHYSICAL EXAMINATION: This is a 72-year-old male in no apparent distress at the time of my examination. HEENT: Head is atraumatic, normocephalic. Pupils are equal, round. Sclerae anicteric. Conjunctivae are clear. Mucous membranes of the mouth are moist. There is no elevated jugular venous pressure. CHEST EXAMINATION: Lungs reveal diminished air entry bilaterally with bibasilar crackles. Bilat wheezing. Respirations even and nonlabored. HEART EXAMINATION: Heart regular, positive S1 and S2. No S3. No S4. Sternal incision healing well, stable. ABDOMEN: Soft, nontender. Bowel sounds are heard. No organomegaly noted. EXTREMITIES: 2+ peripheral pulses with evidence of mild to moderate peripheral edema and no calf tenderness noted. NEUROLOGIC EXAMINATION: Patient is awake, alert and oriented x3. Assessment: #1 acute on chronic systolic congestive heart failure #2 influenza A #3 severe mitral valve regurgitation status post mitral valve repair 04/19/2022 #4 CAD with prior PCI status post CABG 3 04/19/2022 #5 persistent atrial fibrillation, status post cardioversion, maintaining sinus mechanism, anticoagulated, status post modified Castanon maze and ligation of left atrial appendage #6 PFO status post closure #7 ischemic cardiomyopathy with an ejection fraction of 40-45% #8 hypertension #9 hyperlipidemia #10 right internal carotid stenosis #11 anemia, stable #12 COPD Plan: From cardiology's perspective heart failure likely exacerbated by underlying influenza infection. Continue IV Lasix for another 24 hours. We will continue to maximize medical therapy. Continue anticoagulation. Continue to monitor renal function and electrolytes. Continue to monitor daily weights and intake and output. We will continue to follow the patient and provide further recommendations accordingly. REPORT SPECIALIST note has been reviewed, I agree with a documented findings and plan of care. Patient was seen and examined. Objective - Vital Signs Vital signs: Vital Signs Temp 97.6 F 05/23/22 02:00 Pulse 91 05/23/22 04:02 Resp 19 05/23/22 02:00 BP 121/62 05/23/22 02:00 Pulse Ox 94 L 05/23/22 02:00 FiO2 Intake & Output 05/22/22 05/23/22 05/23/22 18:59 06:59 18:59 Intake Total 1008 900 Output Total 1600 602 Balance -592 298 Weight 86.89 kg 85.7 kg Intake: Intake, IV Titration 200 Amount Piperacillin-Tazobactam 3 200 .375 gm In Sodium Chloride 0.9% 100 ml @ 25 mls/hr IVPB Q8HR [facility] Rx# :[id number] Oral 1008 700 Output: Urine 1600 600 Stool 2 Other: Voiding Method Urinal # Voids 2 # Bowel Movements 2 - Labs CBC & Chem 7: 05/21/22 06:10 05/22/22 05:48 Labs: Abnormal Lab Results - Last 24 Hours (Table) 05/22/22 05/22/22 05/22/22 Range/Units 05:48 12:04 17:12 Carbon Dioxide 28.8 H (20.0-27.5) mmol/L Glucose 153 H (70-110) mg/dL POC Glucose (mg/dL) 180 H 204 H (70-110) mg/dL Calcium 8.1 L (8.7-10.3) mg/dL 05/22/22 05/23/22 Range/Units 21:00 06:07 Carbon Dioxide (20.0-27.5) mmol/L Glucose (70-110) mg/dL POC Glucose (mg/dL) 195 H 148 H (70-110) mg/dL Calcium (8.7-10.3) mg/dL Microbiology - Last 24 Hours (Table) 05/19/22 16:13 Blood Culture - Preliminary Blood No Growth after 72 hours 05/19/22 16:20 Blood Culture - Preliminary Blood No Growth after 72 hours
[2022-05-23 09:19] LABS: African American GFR (CKD) 76.8 (60.0-200.0); BUN/Creat Ratio 12.18 Ratio (12.00-20.00); Blood Urea Nitrogen 13.4 mg/dL (9.0-27.0); Calcium 8.6 mg/dL (8.7-10.3); Magnesium 2.1 mg/dL (1.5-2.4); Non-African American GFR(CKD) 66.2 (60.0-200.0); Potassium 4.3 mmol/L (3.5-5.5)
--- NOTE | 2022-05-23 09:28 | P.PN ---
Subjective Progress Note Date: 05/23/22 Principal diagnosis: Acute on chronic systolic heart failure, Influenza A PCR positive on admission. History of severe mitral valve regurgitation, status post mitral valve repair 04/19/22, coronary artery disease, previous PCI, previous non-STEMI, status post CABG 3 04/19/22, paroxysmal atrial fibrillation, previous cardioversion, on [facility] outpatient for anticoagulation, status post modified Castanon maze and ligation of left atrial appendage, patent foramen ovale, status post closure, chronic systolic congestive heart failure, ischemic cardiomyopathy with EF 40- 45%, hypertension, hyperlipidemia, right internal carotid stenosis 50-79%, chronic blood loss anemia with history of GI bleed in November 2021 S/P transfusion PRBCs, 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 Denies significant chest pain, did complain of shortness of breath last night. Remains on 2 L nasal cannula with oxygen saturation in the high 90s. Urine output 2.2 L in the last 24 hours. Patient has been ambulatory without difficulty. Continuing with IV diuresis at this time. Objective - Vital Signs Vital signs: Vital Signs Temp 98.4 F 05/23/22 07:12 Pulse 88 05/23/22 08:18 Resp 19 05/23/22 07:12 BP 115/53 05/23/22 07:12 Pulse Ox 97 05/23/22 07:12 FiO2 Intake & Output 05/22/22 05/23/22 05/23/22 18:59 06:59 18:59 Intake Total 1008 900 Output Total 1600 602 Balance -592 298 Weight 86.89 kg 85.7 kg Intake: Intake, IV Titration 200 Amount Piperacillin-Tazobactam 3 200 .375 gm In Sodium Chloride 0.9% 100 ml @ 25 mls/hr IVPB Q8HR [facility] Rx# :[id number] Oral 1008 700 Output: Urine 1600 600 Stool 2 Other: Voiding Method Urinal # Voids 2 # Bowel Movements 2 - Exam CONSTITUTIONAL: Appears comfortable, cooperative, no acute distress RESPIRATORY: Lungs sounds diminished bilaterally. Respirations even, nonlabored. Currently on 2 L nasal cannula with oxygen saturation 94%. Able to achieve 1250 mL on incentive spirometry. Strong cough. CARDIOVASCULAR: S1, S2 present. Regular rate and rhythm, sinus rhythm on telemetry. Sternum stable. Palpable peripheral pulses bilaterally. Bilateral lower extremity pitting edema present, less than yesterday. No calf pain or tenderness noted. Heart hugger in place with patient demonstrating appropriate use. Antiembolism stockings present. GASTROINTESTINAL: Abdomen soft, nontender, nondistended. Active bowel sounds present 4 quadrants. Tolerating diet. Positive bowel movement 05/22 GENITOURINARY: Continues to void clear, yellow urine. Output 2200 mL in the last 24 hours INTEGUMENTARY: Skin is warm and dry. Anterior chest incision well approximated without redness or drainage. Bilateral lower extremity EVH sites well appro ximated without redness or drainage. Stage II present to sacrum, covered with foam dressing NEUROLOGIC: Cranial nerves II through XII intact MUSKULOSKELETAL: Able to move all extremities, strength equal bilaterally, gait normal PSYCHIATRIC: Alert and oriented to person place and time, appropriate affect, intact judgment and insight - Allied health notes Allied health notes reviewed: nursing - Labs CBC & Chem 7: 05/21/22 06:10 05/23/22 06:14 Labs: Abnormal Lab Results - Last 24 Hours (Table) 05/22/22 05/22/22 05/22/22 Range/Units 05:48 12:04 17:12 Carbon Dioxide 28.8 H (20.0-27.5) mmol/L Glucose 153 H (70-110) mg/dL POC Glucose (mg/dL) 180 H 204 H (70-110) mg/dL Calcium 8.1 L (8.7-10.3) mg/dL 05/22/22 05/23/22 05/23/22 Range/Units 21:00 06:07 08:09 Carbon Dioxide (20.0-27.5) mmol/L Glucose (70-110) mg/dL POC Glucose (mg/dL) 195 H 148 H 144 H (70-110) mg/dL Calcium (8.7-10.3) mg/dL Microbiology - Last 24 Hours (Table) 05/19/22 16:13 Blood Culture - Preliminary Blood No Growth after 72 hours 05/19/22 16:20 Blood Culture - Preliminary Blood No Growth after 72 hours - Imaging and Cardiology Chest x-ray: report reviewed, image reviewed Assessment and Plan Assessment: 1. Acute on chronic systolic heart failure 2. Influenza A PCR positive on admission 3. Shortness of breath, hypoxia secondary to above 4. History of Severe mitral valve regurgitation, status post mitral valve repair 04/19/22 5. Coronary artery disease, previous PCI, previous non-STEMI, status post CABG 3 04/19/22 6. History of paroxysmal atrial fibrillation, previous cardioversion, on [facility] outpatient for anticoagulation, status post modified Castanon maze and ligation of left atrial appendage 7. Patent foramen ovale, status post closure 8. Chronic systolic congestive heart failure, ischemic cardiomyopathy with EF 40-45% 9. History of hypertension 10. History hyperlipidemia, treated, cholesterol 150, LDL 72 11. Right internal carotid stenosis 50-79% 12. 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 Chronic renal failure, baseline creatinine 1.28-1.6 14. Diabetes mellitus type 2, preoperative hemoglobin A1c 5.6% 15. Osteoarthritis, chronic low back pain 16. Severe COPD, preoperative FEV1 41% of predicted 17. Previous nicotine dependence 18. Sacral stage II ulcer status post debridement 19. Medical debility, generalized weakness 20. History of small left-sided pleural effusion, status post left-sided thoracentesis on 04/30/2022 21. History of urinary retention possibly secondary to constipation Plan: 1. Continue aspirin, statin, beta siomara therapy. Continue Eliquis 2. Continue to diurese with IV Lasix. Will need to transition to oral Lasix for discharge to ECF 3. Wean O2 as tolerated. Encouraged him spirometry is 10 times every hour while awake. Bronchodilators per pulmonology 4. Continue IV Zosyn per infectious disease recommendations for 1 week 5. Increase activity, ambulate as tolerated. PT/OT/cardiac rehab consulted 6. GI/DVT prophylaxis 7. Insulin management per internal medicine, patient needs to blood sugar con trol to prevent further infection and promote healing 8. Pain control with current medication regimen 9. Strict accurate intake and output, daily weights 10. Patient must shower daily, remove decubitus dressing and clean decubitus in the shower, reapply dressing 11. Continue sternal precautions, no lifting/pulling/pushing anything heavier than 10 pounds for a full 12 weeks post surgery 12. Recommend discharging from hospital as soon as possible 13. More recommendations to follow
[2022-05-23 09:29] LABS: HCT 25.7 % (39.6-50.0); HGB 7.5 g/dL (13.0-17.0); MCH 28.8 pg (27.0-32.0); MCHC 29.2 g/dL (32.0-37.0); MCV 98.8 fL (80.0-97.0); Mean Platelet Volume 10.3 fL (9.5-12.2); NRBC Per 100 WBC 0 /100 WBCS (0.0-0.0); Platelet Count 319 X 10*3/uL (140-440); RDW 17.7 % (11.5-14.5); WBC 12.04 X 10*3/uL (4.50-10.00)
[2022-05-23] MEDS: LIDOCAINE 5% PATCH TOPICAL SCH (09:42)
[2022-05-23] MEDS: VIT A,C & E-LUTEIN-MINERALS 1 EACH TAB PO SCH (09:42)
[2022-05-23] MEDS: DAPAGLIFLOZIN PROPANEDIOL 10 MG TABLET PO SCH (09:42)
[2022-05-23] MEDS: TAMSULOSIN 0.4 MG CAP.ER.24H PO SCH (09:43)
[2022-05-23] MEDS: APIXABAN 5 MG TAB PO SCH ×2 (09:43→16:22)
[2022-05-23] MEDS: METOPROLOL TARTRATE 25 MG TAB PO SCH ×2 (09:44→16:22)
[2022-05-23] MEDS: ASPIRIN 81 MG PO SCH (09:44)
[2022-05-23] MEDS: PANTOPRAZOLE 40 MG TABLET PO SCH ×2 (09:44→16:22)
[2022-05-23] MEDS: ASCORBIC ACID 500 MG TAB PO SCH (09:44)
[2022-05-23] MEDS: FERROUS SULFATE 325 MG TAB PO SCH ×2 (09:44→16:22)
[2022-05-23] MEDS: COLLAGENASE 250 UNIT/GM OINTMENT 30 GM TUBE TOPICAL SCH (09:45)
[2022-05-23] MEDS: FUROSEMIDE 10 MG/ML 4 ML VIAL IV SCH ×2 (09:45→18:17)
[2022-05-23 12:10] LABS: Glucose,Whole Blood 221 mg/dL (70-110)
--- NOTE | 2022-05-23 15:31 | P.PN ---
Subjective Progress Note Date: 05/23/22 72-year-old male had a recent with coronary artery disease and CABG 3 and a close the PFO on 19 of April came in with compensative shortness of breath on weaning can start failure patient has EF of around the 40 with 50%. Patient has bilateral lower sweaty edema. was having orthopnea paroxysmal nocturnal dyspnea does have a pulmonary edema on the chest x-ray patient was started on IV Lasix BNP is around 10,000. 05/21/2022 Patient is seen and evaluated this morning currently sitting up in chair with at bedside. Patient is maintained on breathing treatments along with IV Lasix and currently maintaining saturations above 90% on room air. Patient's lower extremities elevated slightly in continued on compression stockings. CT surgery following recommending continued IV diuresis and discharge planning process for [facility]. Patient continues with significant weakness and will need ECF upon discharge. Lung sounds were with crackles noted and will continue IV Lasix and follow-up repeat labs. Patient continues with chest wall pain and heart hugger is noted. Incentive spirometer at the bedside and encourage the patient to continue using at least 10 times every hour while awake. Patient is afebrile denies worsening shortness of breath. Encourage the patient to continu e elevating lower extremities while at rest. Will have PT/OT evaluate the patient 05/22/2022 Patient is seen in follow-up this morning lying in bed appears dyspneic at rest continued on 2 L via nasal cannula. Chest x-ray shows CHF and is maintained on IV Lasix with CT surgery cardiology following. Patient also appears significantly pale will follow-up with a.m. labs. Most recent hemoglobin was 7.4. Patient continues to be dyspneic with minimal exertion and during conversation and appears generally ill. Patient extremely weak will be returning to rehab once more stable. Recommend follow-up labs in the a.m. Patient is currently afebrile denies chest pain or palpitations. Patient con tinues to report shortness of breath. Oral intake is fair and need encouragement. Recommend to monitor blood sugars before meals and at bedtime and will use sliding scale as needed. 05/23/2022 Patient is seen and evaluated in follow-up currently sitting up in the chair reporting has resting dyspnea has improved although feels he has no reserve. Patient is maintained on 2 L via nasal cannula maintaining oxygen saturations above 90%. Patient is up and walking to the bathroom continues with weakness although feels somewhat improved each day. Patient continues with lower extremity edema with compression stockings and is improving slowly with cardiology and CT surgery following recommending to continue on IV diuresis. Patient also continues on IV Zosyn during his past prolonged hospitalization post debridement of a decubitus ulcer with no cultures obtained and ID was following at that time recommending a minimum of 2 weeks of Zosyn. Patient has the flu as well on this admission. Recommend work with physical therapy daily. Patient was also continued on DuoNeb treatments and will continue. Review of systems: Constitutional: No reports of fatigue, no fever, or chills Cardiovascular: No reports of chest pain or palpitations, reports chest wall pain with movement and coughing Respiratory: No reports of worsening shortness of breath, reports continued shortness of breath with minimal movement and did have a rough night with his breathing GI: No reports of nausea, vomiting, or diarrhea, reports eating a little better : No reports of dysuria or retention Neurovascular: reports of generalized weakness and reports improvement in lower extremity edema All medications have been reviewed PHYSICAL EXAMINATION: GENERAL: The patient is alert and oriented x3, less dyspneic with conversation, ill-appearing Well developed, well nourished. HEENT: Pupils are round and equally reacting to light. EOMI. No scleral icterus. No conjunctival pallor. Normocephalic, atraumatic. No pharyngeal erythema. No thyromegaly. CARDIOVASCULAR: S1 and S2 present. No murmurs, rubs, or gallops. Elevated JVD PULMONARY: bilateral lower lobe crackles noted with some improvement. Diminis hed breath sounds bilaterally ABDOMEN: Soft, nontender, nondistended, normoactive bowel sounds. No palpable organomegaly. MUSCULOSKELETAL: No joint swelling or deformity. EXTREMITIES: No cyanosis, clubbing, bilateral lower extremity edema noted with compression stockings NEUROLOGICAL: Gross neurological examination did not reveal any focal deficits. Diffusely weak SKIN: No rashes. Assessment: -Congestive heart failure chronic systolic dysfunction with acute exacerbation: Patient will be continued on IV Lasix -Influenza infection -coronary artery disease with recent PCI and CABG about a month ago -Sacral decubitus ulcer stage II, status post recent debridement maintained on IV antibiotics per ID recommendations on previous admission -persistent atrial fibrillation presently in sinus rhythm -Hypertension -hyperlipidemia -COPD without any acute exacerbation -Anemia secondary to surgery which is a chronic anemia, will need further evaluation as an outpatient. -DVT prophylaxis: Patient is on eliquis for atrial fibrillation Plan: Recommend to continue current medications and continue with IV Lasix diuresis with follow-up labs Patient seen and evaluated by CT surgery recommending continuing IV diuresis and return to ECF for continued therapy PT/OT to evaluate the patient and recommend working with daily as patient continues with weakness Recommend continue with breathing treatments and other home medications Patient is continued on IV Zosyn for decubitus ulcer that had an abscess requiring debridement from previous admission and continued in isolation precautions for influenza Case management following working on discharge planning once patient is stable to ECF Encouraged to increase activity as tolerated and continued incentive spirometer use Encourage the patient elevating lower extremities while at rest Prognosis is guarded The impression and plan of care has been dictated by Angeles Meehan, Nurse Practitioner as directed. Dr. Ila MD I have performed a history and examination and MDM of this patient, discussed the same with the dictator, and agree with the dictator's assessment and plan as written ,documented as a scribe. Based on total visit time, I have performed more than 50% of the visit. Objective - Vital Signs Vital signs: Vital Signs Temp 98.4 F 05/23/22 07:12 Pulse 88 05/23/22 08:18 Resp 19 05/23/22 07:12 BP 115/53 05/23/22 07:12 Pulse Ox 97 05/23/22 07:12 FiO2 Intake & Output 05/22/22 05/23/22 05/23/22 18:59 06:59 18:59 Intake Total 1008 900 660 Output Total 1600 602 Balance -592 298 660 Weight 86.89 kg 85.7 kg Intake: Intake, IV Titration 200 Amount Piperacillin-Tazobactam 3 200 .375 gm In Sodium Chloride 0.9% 100 ml @ 25 mls/hr IVPB Q8HR [facility] Rx# :[id number] Oral 1008 700 660 Output: Urine 1600 600 Stool 2 Other: Voiding Method Urinal # Voids 2 # Bowel Movements 2 - Labs CBC & Chem 7: 05/23/22 06:14 05/23/22 06:14 Labs: Abnormal Lab Results - Last 24 Hours (Table) 05/22/22 05/22/22 05/22/22 Range/Units 12:04 17:12 21:00 WBC (4.50-10.00) X 10*3/uL RBC (4.40-5.60) X 10*6/uL Hgb (13.0-17.0) g/dL Hct (39.6-50.0) % MCV (80.0-97.0) fL MCHC (32.0-37.0) g/dL RDW (11.5-14.5) % Carbon Dioxide (20.0-27.5) mmol/L Glucose (70-110) mg/dL POC Glucose (mg/dL) 180 H 204 H 195 H (70-110) mg/dL Calcium (8.7-10.3) mg/dL 05/23/22 05/23/22 05/23/22 Range/Units 06:07 06:14 06:14 WBC 12.04 H (4.50-10.00) X 10*3/uL RBC 2.60 L (4.40-5.60) X 10*6/uL Hgb 7.5 L (13.0-17.0) g/dL Hct 25.7 L (39.6-50.0) % MCV 98.8 H (80.0-97.0) fL MCHC 29.2 L (32.0-37.0) g/dL RDW 17.7 H (11.5-14.5) % Carbon Dioxide 29.0 H (20.0-27.5) mmol/L Glucose 146 H (70-110) mg/dL POC Glucose (mg/dL) 148 H (70-110) mg/dL Calcium 8.6 L (8.7-10.3) mg/dL 05/23/22 Range/Units 08:09 WBC (4.50-10.00) X 10*3/uL RBC (4.40-5.60) X 10*6/uL Hgb (13.0-17.0) g/dL Hct (39.6-50.0) % MCV (80.0-97.0) fL MCHC (32.0-37.0) g/dL RDW (11.5-14.5) % Carbon Dioxide (20.0-27.5) mmol/L Glucose (70-110) mg/dL POC Glucose (mg/dL) 144 H (70-110) mg/dL Calcium (8.7-10.3) mg/dL Microbiology - Last 24 Hours (Table) 05/19/22 16:13 Blood Culture - Preliminary Blood No Growth after 72 hours 05/19/22 16:20 Blood Culture - Preliminary Blood No Growth after 72 hours
[2022-05-23] MEDS: ATORVASTATIN 40 MG TAB PO SCH (16:22)
[2022-05-23 17:28] LABS: Glucose,Whole Blood 153 mg/dL (70-110)
[2022-05-23 21:29] LABS: Glucose,Whole Blood 225 mg/dL (70-110)
[2022-05-24] MEDS: IPRATROPIUM-ALBUTEROL 3 ML NEB INHALATION PRN ×2 (01:17→05:23)
[2022-05-24] MEDS: HYDROcodone/APAP 5-325MG 1 EACH TAB PO PRN (06:04)
[2022-05-24 06:26] LABS: Glucose,Whole Blood 176 mg/dL (70-110)
[2022-05-24] MEDS: INSULIN ASPART (NovoLOG) 100 UNIT/ML VIAL SQ SCH ×4 (06:41→20:40)
--- NOTE | 2022-05-24 08:13 | XR ---
EXAMINATION TYPE: XR chest 1V portable DATE OF EXAM: 05/24/2022 HISTORY: Shortness of breath. COMPARISON: 05/23/2022 TECHNIQUE: Single view of the chest is submitted. FINDINGS: Demonstrated are scattered senescent parenchymal change. Persistent pulmonary venous congestion with scattered interstitial and alveolar edema as well as bila teral effusions. There Hilar and mediastinal structures are within normal limits. Degenerative changes are seen of the dorsal spine. IMPRESSION: 1. Findings are felt to reflect congestive failure although infiltrates of other etiology not exclud ed. Continued follow-up advised.
[2022-05-24] MEDS: IPRATROPIUM-ALBUTEROL 3 ML NEB INHALATION SCH ×4 (08:32→20:28)
[2022-05-24] MEDS: SYMBICORT 80-4.5 MCG INHALER INHALATION SCH ×2 (08:32→20:28)
--- NOTE | 2022-05-24 08:59 | P.PN ---
Subjective Progress Note Date: 05/24/22 Principal diagnosis: Acute on chronic systolic heart failure, Influenza A PCR positive on admission. History of severe mitral valve regurgitation, status post mitral valve repair 04/19/22, coronary artery disease, previous PCI, previous non-STEMI, status post CABG 3 04/19/22, paroxysmal atrial fibrillation, previous cardioversion, on [facility] outpatient for anticoagulation, status post modified Castanon maze and ligation of left atrial appendage, patent foramen ovale, status post closure, chronic systolic congestive heart failure, ischemic cardiomyopathy with EF 40- 45%, hypertension, hyperlipidemia, right internal carotid stenosis 50-79%, chronic blood loss anemia with history of GI bleed in November 2021 S/P transfusion PRBCs, 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 Denies significant chest pain, shortness of breath. Remains on 2 L nasal cannula although he continues to take it off. Urine output 2.7 L in the last 24 hours. Patient has been ambulatory without difficulty. Continuing with IV diuresis at this time, decreased this morning by cardiology. Remains in good spirits. Objective - Vital Signs Vital signs: Vital Signs Temp 98.0 F 05/24/22 08:00 Pulse 88 05/24/22 08:41 Resp 20 05/24/22 08:00 BP 108/59 05/24/22 08:00 Pulse Ox 91 L 05/24/22 08:00 FiO2 Intake & Output 05/23/22 05/24/22 05/24/22 18:59 06:59 18:59 Intake Total 1794 100 Output Total 900 1801 Balance 894 -1701 Weight 85.1 kg Intake: Intake, IV Titration 100 Amount Piperacillin-Tazobactam 3 100 .375 gm In Sodium Chloride 0.9% 100 ml @ 25 mls/hr IVPB Q8HR [facility] Rx# :[id number] Oral 1794 Output: Urine 900 1800 Stool 1 Other: Voiding Method Urinal # Bowel Movements 1 - Exam CONSTITUTIONAL: Appears comfortable, cooperative, no acute distress RESPIRATORY: Lungs sounds diminished bilaterally. Respirations even, nonlabored. Currently on 2 L nasal cannula with oxygen saturation 99%. Able to achieve 1250 mL on incentive spirometry. Strong cough. CARDIOVASCULAR: S1, S2 present. Regular rate and rhythm, sinus rhythm on telemetry. Sternum stable. Palpable peripheral pulses bilaterally. Bilateral lower extremity pitting edema present, less than yesterday. No calf pain or tenderness noted. Heart hugger in place with patient demonstrating appropriate use. Antiembolism stockings present. GASTROINTESTINAL: Abdomen soft, nontender, nondistended. Active bowel sounds present 4 quadrants. Tolerating diet. Positive bowel movement 05/23 GENITOURINARY: Continues to void clear, yellow urine. Output 2700 mL in the last 24 hours INTEGUMENTARY: Skin is warm and dry. Anterior chest incision well approximated without redness or drainage. Bilateral lower extremity EVH sites well approximated without redness or drainage. Stage II present to sacrum, covered with foam dressing NEUROLOGIC: Cranial nerves II through XII intact MUSKULOSKELETAL: Able to move all extremities, strength equal bilaterally, gait normal PSYCHIATRIC: Alert and oriented to person place and time, appropriate affect, intact judgment and insight - Allied health notes Allied health notes reviewed: nursing - Labs CBC & Chem 7: 05/23/22 06:14 05/23/22 06:14 Labs: Abnormal Lab Results - Last 24 Hours (Table) 05/23/22 05/23/22 05/23/22 Range/Units 06:14 06:14 12:08 WBC 12.04 H (4.50-10.00) X 10*3/uL RBC 2.60 L (4.40-5.60) X 10*6/uL Hgb 7.5 L (13.0-17.0) g/dL Hct 25.7 L (39.6-50.0) % MCV 98.8 H (80.0-97.0) fL MCHC 29.2 L (32.0-37.0) g/dL RDW 17.7 H (11.5-14.5) % Carbon Dioxide 29.0 H (20.0-27.5) mmol/L Glucose 146 H (70-110) mg/dL POC Glucose (mg/dL) 221 H (70-110) mg/dL Calcium 8.6 L (8.7-10.3) mg/dL 05/23/22 05/23/22 05/24/22 Range/Units 17:26 21:27 06:25 WBC (4.50-10.00) X 10*3/uL RBC (4.40-5.60) X 10*6/uL Hgb (13.0-17.0) g/dL Hct (39.6-50.0) % MCV (80.0-97.0) fL MCHC (32.0-37.0) g/dL RDW (11.5-14.5) % Carbon Dioxide (20.0-27.5) mmol/L Glucose (70-110) mg/dL POC Glucose (mg/dL) 153 H 225 H 176 H (70-110) mg/dL Calcium (8.7-10.3) mg/dL Microbiology - Last 24 Hours (Table) 05/19/22 16:13 Blood Culture - Preliminary Blood No Growth after 96 hours 05/19/22 16:20 Blood Culture - Preliminary Blood No Growth after 96 hours - Imaging and Cardiology Chest x-ray: report reviewed, image reviewed Assessment and Plan Assessment: 1. Acute on chronic systolic heart failure 2. Influenza A PCR positive on admission 3. Shortness of breath, hypoxia secondary to above 4. History of Severe mitral valve regurgitation, status post mitral valve re pair 04/19/22 5. Coronary artery disease, previous PCI, previous non-STEMI, status post CABG 3 04/19/22 6. History of paroxysmal atrial fibrillation, previous cardioversion, on [facility] outpatient for anticoagulation, status post modified Castanon maze and ligation of left atrial appendage 7. Patent foramen ovale, status post closure 8. Chronic systolic congestive heart failure, ischemic cardiomyopathy with EF 40-45% 9. History of hypertension 10. History hyperlipidemia, treated, cholesterol 150, LDL 72 11. Right internal carotid stenosis 50-79% 12. 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 Chronic renal failure, baseline creatinine 1.28-1.6 14. Diabetes mellitus type 2, preoperative hemoglobin A1c 5.6% 15. Osteoarthritis, chronic low back pain 16. Severe COPD, preoperative FEV1 41% of predicted 17. Previous nicotine dependence 18. Sacral stage II ulcer status post debridement 19. Medical debility, generalized weakness 20. History of small left-sided pleural effusion, status post left-sided thoracentesis on 04/30/2022 21. History of urinary retention possibly secondary to constipation Plan: 1. Continue aspirin, statin, beta siomara therapy. Continue Eliquis 2. Continue to diurese with IV Lasix, decreased to 20 mg twice daily by cardiology. Will need to transition to oral Lasix for discharge to ECF 3. Wean O2 as tolerated. Encouraged him spirometry is 10 times every hour while awake. Bronchodilators per pulmonology 4. Continue IV Zosyn per infectious disease recommendations for 1 week, likely will have completed course and can be stopped by the time he's discharged 5. Increase activity, ambulate as tolerated. PT/OT/cardiac rehab consulted 6. GI/DVT prophylaxis 7. Insulin management per internal medicine, patient needs tight blood sugar control to prevent further infection and promote healing 8. Pain control with current medication regimen 9. Strict accurate intake and output, daily weights 10. Patient must shower daily, remove decubitus dressing and clean decubitus in the shower, reapply dressing 11. Continue sternal precautions, no lifting/pulling/pushing anything heavier than 10 pounds for a full 12 weeks post surgery 12. Recommend discharging from hospital as soon as possible 13. More recommendations to follow
[2022-05-24] MEDS: PIPERACILLIN-TAZOBACTAM 3.375 GM in SODIUM CHLORIDE 0.9% 100 ML IVPB SCH ×2 (09:04→18:22)
[2022-05-24] MEDS: COLLAGENASE 250 UNIT/GM OINTMENT 30 GM TUBE TOPICAL SCH (09:04)
[2022-05-24] MEDS: PANTOPRAZOLE 40 MG TABLET PO SCH ×2 (09:05→18:24)
[2022-05-24] MEDS: APIXABAN 5 MG TAB PO SCH ×2 (09:05→18:23)
[2022-05-24] MEDS: FERROUS SULFATE 325 MG TAB PO SCH ×2 (09:05→18:24)
[2022-05-24] MEDS: TAMSULOSIN 0.4 MG CAP.ER.24H PO SCH (09:06)
[2022-05-24] MEDS: METOPROLOL TARTRATE 25 MG TAB PO SCH ×2 (09:06→18:24)
[2022-05-24] MEDS: FUROSEMIDE 10 MG/ML 2 ML VIAL IV SCH ×2 (09:06→19:34)
[2022-05-24] MEDS: DAPAGLIFLOZIN PROPANEDIOL 10 MG TABLET PO SCH (09:06)
[2022-05-24] MEDS: LIDOCAINE 5% PATCH TOPICAL SCH (09:06)
[2022-05-24 09:15] LABS: African American GFR (CKD) 76.8 (60.0-200.0); Anion Gap 11.2 mmol/L (10.00-18.00); BUN/Creat Ratio 15.36 Ratio (12.00-20.00); Blood Urea Nitrogen 16.9 mg/dL (9.0-27.0); Calcium 8.6 mg/dL (8.7-10.3); Carbon Dioxide 30.8 mmol/L (20.0-27.5); Non-African American GFR(CKD) 66.2 (60.0-200.0)
--- NOTE | 2022-05-24 09:16 | P.PN ---
Subjective Progress Note Date: 05/24/22 History of present illness: This pleasant 72-year-old gentleman who follows with Dr. Man in the office. He has a past medical history of persistent atrial fibrillation status post cardioversion, severe mitral valve regurgitation status post mitral valve repair as well as CAD with previous PCI and non-STEMI status post CABG 3 with closure of PFO on 04/19/2022, chronic systolic congestive heart failure, ischemic cardiomyopathy with an ejection fraction of 40-45%, hypertension, hyperlipidemia, right internal carotid artery stenosis, acute on chronic blood loss anemia, chronic kidney failure, type 2 diabetes, COPD and prior nicotine dependence. Was recently discharged tomorrow would for subacute rehab on 05/18/2022 after spending 29 days in the hospital postoperatively. 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 Foll owing discharge tomorrow would he developed progressively worsening shortness of breath, orthopnea and edema with hypoxemia requiring initiation of oxygen therapy. He was brought back to [facility] yesterday. Labs showed hemoglobin 7.5 with a subsequent dryness morning of 8.0, d-dimer 1.85, sodium 136, BUN 16, creatinine 1.06, minimal troponin elevation at 0.039 and an NT proBNP of 10,700. EKG showed sinus mechanism with nonspecific ST-T wave abnormalities but no evidence of acute ischemia. Chest x-ray showed cardiomegaly, pulmonary vascular congestion and bilateral pleural effusions, correlate with BNP for congestive heart failure. Subsequent chest x-ray this morning showed bilateral pleural effusions with right sided airspace opacities which could represent atelectasis versus developing pneumonia, clinical correlation. He did test positive for influenza A. He has been initiated on Lasix IV push 40 mg every 12 hours. Renal function this morning show some improvement compared to yesterday. He is overall feeling better. He feels the edema has significantly improved and his breathing is better. He's had no complaints of chest discomfort. Denies any palpitations, dizziness or lightheadedness. 05/21 Patient continues to have lower extremity edema. He denies having chest pain. He is currently on Lasix 40 mg IV every 12 hours. Urine output 2.3 L over the past 24 hours. Repeat blood work reveals hemoglobin of 7.4. Potassium 4.2, BUN 12 and creatinine 1.1. Pulse ox is 96% on 2 L, blood pressure 127/69, heart rate in the 70s. Repeat chest x-ray reveals bibasilar infiltrates with small bilateral pleural effusions, stable. 05/22 Patient continues to have shortness of breath hadn't multiple updraft treatments through the night. He is on IV Lasix 40 mg every 12 hours. Heart rate has been in the 80s, blood pressure 116/62, pulse ox 92% on 2 L.potassium 4.3, BUN 11 and creatinine 0.9. Repeat chest x-ray reveals CHF exacerbation and/or fluid overload state he demonstrated a slightly worsened 1 day prior. 05/23 Patient states that he had a rough night and required nebulizer treatments every couple hours. He continues to have some crackles in the lungs, wheezing improved, no lower extremity edema. We will plan to continue IV Lasix for another 24 hours. Repeat chest x-ray reveals stable portable chest. 05/24 This morning, patient is stating that his breathing is better and he feels well. Blood pressure is 108/59, pulse ox 99% on room air. Morning blood work is not available at the time of this dictation. Yesterday revealed potassium of 4.3, BUN 13 creatinine 1.1, hemoglobin 7.5. PHYSICAL EXAMINATION: This is a 72-year-old male in no apparent distress at the time of my examination. HEENT: Head is atraumatic, normocephalic. Pupils are equal, round. Sclerae anicteric. Conjunctivae are clear. Mucous membranes of the mouth are moist. There is no elevated jugular venous pressure. CHEST EXAMINATION: Lungs reveal diminished air entry bilaterally with minimal bibasilar crackles. Respirations even and nonlabored. HEART EXAMINATION: Heart regular, positive S1 and S2. No S3. No S4. Sternal incision healing well, stable. ABDOMEN: Soft, nontender. Bowel sounds are heard. No organomegaly noted. EXTREMITIES: 2+ peripheral pulses with evidence of mild to moderate peripheral edema and no calf tenderness noted. NEUROLOGIC EXAMINATION: Patient is awake, alert and oriented x3. Assessment: #1 acute on chronic systolic congestive heart failure #2 influenza A #3 severe mitral valve regurgitation status post mitral valve repair 04/19/2022 #4 CAD with prior PCI status post CABG 3 04/19/2022 #5 persistent atrial fibrillation, status post cardioversion, maintaining sinus mechanism, anticoagulated, status post modified Castanon maze and ligation of left atrial appendage #6 PFO status post closure #7 ischemic cardiomyopathy with an ejection fraction of 40-45% #8 hypertension #9 hyperlipidemia #10 right internal carotid stenosis #11 anemia, stable #12 COPD Plan: From cardiology's perspective heart failure likely exacerbated by underlying influenza infection. Continue IV Lasix for another 24 hours but at decreased dose of 20 mg twice daily, may be transitioned to oral for discharge. We will continue to maximize medical therapy. Continue anticoagulation. Continue to monitor renal function and electrolytes. Continue to monitor daily weights and intake and output. We will continue to follow the patient and provide further recommendations accordingly. PRINT [employer]ER note has been reviewed, I agree with a documented findings and plan of care. Patient was seen and examined. Objective - Vital Signs Vital signs: Vital Signs Temp 98.1 F 05/24/22 03:35 Pulse 90 05/24/22 05:36 Resp 19 05/24/22 03:35 BP 101/60 05/24/22 03:35 Pulse Ox 99 05/24/22 05:27 FiO2 Intake & Output 05/23/22 05/24/22 05/24/22 18:59 06:59 18:59 Intake Total 1794 100 Output Total 900 1801 Balance 894 -1701 Weight 85.1 kg Intake: Intake, IV Titration 100 Amount Piperacillin-Tazobactam 3 100 .375 gm In Sodium Chloride 0.9% 100 ml @ 25 mls/hr IVPB Q8HR ON LICENSE OF [facility] Rx# :[id number] Oral 1794 Output: Urine 900 1800 Stool 1 Other: Voiding Method Urinal # Bowel Movements 1 - Labs CBC & Chem 7: 05/23/22 06:14 05/23/22 06:14 Labs: Abnormal Lab Results - Last 24 Hours (Table) 05/23/22 05/23/22 05/23/22 Range/Units 06:14 06:14 08:09 WBC 12.04 H (4.50-10.00) X 10*3/uL RBC 2.60 L (4.40-5.60) X 10*6/uL Hgb 7.5 L (13.0-17.0) g/dL Hct 25.7 L (39.6-50.0) % MCV 98.8 H (80.0-97.0) fL MCHC 29.2 L (32.0-37.0) g/dL RDW 17.7 H (11.5-14.5) % Carbon Dioxide 29.0 H (20.0-27.5) mmol/L Glucose 146 H (70-110) mg/dL POC Glucose (mg/dL) 144 H (70-110) mg/dL Calcium 8.6 L (8.7-10.3) mg/dL 05/23/22 05/23/22 05/23/22 Range/Units 12:08 17:26 21:27 WBC (4.50-10.00) X 10*3/uL RBC (4.40-5.60) X 10*6/uL Hgb (13.0-17.0) g/dL Hct (39.6-50.0) % MCV (80.0-97.0) fL MCHC (32.0-37.0) g/dL RDW (11.5-14.5) % Carbon Dioxide (20.0-27.5) mmol/L Glucose (70-110) mg/dL POC Glucose (mg/dL) 221 H 153 H 225 H (70-110) mg/dL Calcium (8.7-10.3) mg/dL 05/24/22 Range/Units 06:25 WBC (4.50-10.00) X 10*3/uL RBC (4.40-5.60) X 10*6/uL Hgb (13.0-17.0) g/dL Hct (39.6-50.0) % MCV (80.0-97.0) fL MCHC (32.0-37.0) g/dL RDW (11.5-14.5) % Carbon Dioxide (20.0-27.5) mmol/L Glucose (70-110) mg/dL POC Glucose (mg/dL) 176 H (70-110) mg/dL Calcium (8.7-10.3) mg/dL Microbiology - Last 24 Hours (Table) 05/19/22 16:13 Blood Culture - Preliminary Blood No Growth after 96 hours 05/19/22 16:20 Blood Culture - Preliminary Blood No Growth after 96 hours
[2022-05-24 11:06] LABS: Basophils # (A) 0.07 X 10*3/uL (0.00-0.10); Basophils % (A) 0.8 %; Eosinophils # (A) 0.23 X 10*3/uL (0.04-0.35); Eosinophils % (A) 2.7 %; HCT 22.2 % (39.6-50.0); HGB 6.6 g/dL (13.0-17.0); Immature Grans, Automated 1.5 %; Lymphocytes # (A) 0.54 X 10*3/uL (0.90-5.00); Lymphocytes % (A) 6.3 %; MCH 29.1 pg (27.0-32.0); MCHC 29.7 g/dL (32.0-37.0); MCV 97.8 fL (80.0-97.0); Mean Platelet Volume 10.2 fL (9.5-12.2); Monocytes # (A) 0.94 X 10*3/uL (0.20-1.00); Monocytes % (A) 10.9 %; NRBC Per 100 WBC 0 /100 WBCS (0.0-0.0); Neutrophils % (A) 77.8 %; Platelet Count 296 X 10*3/uL (140-440); RBC 2.27 X 10*6/uL (4.40-5.60); RDW 17.7 % (11.5-14.5); WBC 8.61 X 10*3/uL (4.50-10.00)
[2022-05-24 11:07] LABS: Hypochromasia (M) 2+
[2022-05-24 11:23] LABS: Glucose,Whole Blood 214 mg/dL (70-110)
[2022-05-24] MEDS: INSULIN DETEMIR (LEVEMIR) 100 UNIT/ML SYR SQ SCH (11:34)
[2022-05-24] MEDS: ASPIRIN 81 MG PO SCH (12:45)
[2022-05-24] MEDS: ASCORBIC ACID 500 MG TAB PO SCH (12:45)
--- NOTE | 2022-05-24 14:45 | P.GSCN ---
History of Present Illness Consult date: 05/24/22 Reason for Consult: Sacral decubitus Requesting physician: Clyde Leal History of present illness: This gentleman is status post CABG and mitral valve repair. He developed a large sacral decubitus. It was previously debridement by Dr. Cardenas. Past Medical History Past Medical History: Atrial Fibrillation, Blood Disorder, COPD, Diabetes Mellitus, GI Bleed, Hearing Disorder / Deafness, Hyperlipidemia, Hypertension, Myocardial Infarction (ME), Pneumonia Additional Past Medical History / Comment(s): Anemia, had GI Bleed 11/22, had 4 units of blood. Bilateral lower extremity edema. Hx ME X2. Insomnia. Hx Pneumonia. Chronic back pain. Last Myocardial Infarction Date:: 11/2021 History of Any Multi-Drug Resistant Organisms: None Reported Past Surgical History: Back Surgery, Heart Catheterization With Stent, Joint Replacement, Orthopedic Surgery Additional Past Surgical History / Comment(s): BILATERAL KNEE REPLACEMENTS, BILATERAL SHOULDER SURGERY, ONE CARDIAC STENT, back surgery X2 (lumbar decompression and fusion), BACK INJECTIONS, COLONOSCOPY, BILATERAL CATARACTS REMOVED WITH LENS IMPLANTS, Cardioversion. Past Anesthesia/Blood Transfusion Reactions: No Reported Reaction Date of Last Stent Placement:: 2000 Smoking Status: Current some day smoker - Past Family History Father Family Medical History: No Reported History Mother Family Medical History: No Reported History Medications and Allergies Home Medications Medication Instructions Recorded Confirmed Type Vit C/E/Zn/Coppr/Lutein/Zeaxan 2 cap PO DAILY@1500 02/19/17 05/19/22 History [Preservision Areds 2 Softgel] Apixaban [Eliquis] 5 mg PO BID@0800,1700 11/09/21 05/19/22 History Fluticasone/Umeclidin/Vilanter 1 puff INHALATION RT-HS@2100 11/09/21 05/19/22 Hi story [Carlos Cowartta 100-62.5-25] Ferrous Sulfate [Iron (65 MG 325 mg PO BID@0800,1700 12/22/21 05/19/22 History Elemental)] Ipratropium-Albuterol Nebulize 3 ml INHALATION RT-QID@08,12,,21 12/22/21 05/19/22 History [Duoneb 0.5 mg-3 mg/3 ml Soln] PRN Acetaminophen Tab [Tylenol] 650 mg PO Q6HR PRN tab 05/18/22 05/19/22 Rx Ipratropium-Albuterol Nebulize 3 ml INHALATION RT-Q2H PRN each 05/18/22 05/19/22 Rx [Duoneb 0.5 mg-3 mg/3 ml Soln] bisacodyL [Dulcolax] 10 mg RECTAL DAILY PRN suppositor 05/18/22 05/19/22 Rx lisinopriL [Zestril] 5 mg PO DAILY@1200 tab 05/18/22 05/19/22 Rx Arginaid 1 packet PO BID@0800,1700 05/19/22 05/19/22 History Ascorbic Acid [Vitamin C] 500 mg PO DAILY@1200 05/19/22 05/19/22 History Aspirin 81 mg PO DAILY@1200 05/19/22 05/19/22 History Atorvastatin [Lipitor] 40 mg PO DAILY@1700 05/19/22 05/19/22 History Benzocaine/Menthol Lozeng [Cepacol 1 lozenge MUCOUS MEM Q2HR PRN 05/19/22 05/19/22 History lozenge] Bumetanide [BUMEX] 2 mg PO DAILY@0800 05/19/22 05/19/22 History Collagenase [Santyl Ointment] 1 applic TOPICAL DAILY 05/19/22 05/19/22 History Collagenase [Santyl Ointment] 1 applic TOPICAL DAILY PRN 05/19/22 05/19/22 History Dapagliflozin Propanediol [Farxiga] 10 mg PO DAILY@0800 05/19/22 05/19/22 His tory Glucerna Shake 1 can PO TID@0800,1200,1700 05/19/22 05/19/22 History HYDROcodone/APAP 5-325MG [Lakin 1 tab PO Q6HR PRN 05/19/22 05/19/22 History 5-325] INSULIN ASPART (NovoLOG) [NovoLOG See Protocol SQ ACHS 05/19/22 05/19/22 History (formulary)] Lidocaine 5% Patch [Lidoderm 5% 2 patch TOPICAL DAILY@0800 05/19/22 05/19/22 History Patch] Magnesium Hydroxide [Milk of 7,200 mg PO DAILY PRN 05/19/22 05/19/22 History Magnesia Concentrate] Metoprolol Tartrate [Lopressor] 25 mg PO BID@0800,1700 05/19/22 05/19/22 History Na Phos,M-B/Na Phos,Di-Ba [Fleet 133 ml RECTAL DAILY PRN 05/19/22 05/19/22 History Adult] Pantoprazole [Protonix] 40 mg PO BID@0800,1700 05/19/22 05/19/22 History Piperacillin-Tazobactam [Zosyn] 3.375 gm IVPB TID@0600,1400,2200 05/19/22 05/19/22 History Potassium Chloride ER [K-Dur 10] 10 meq PO DAILY@1200 05/19/22 05/19/22 History Sennosides-Docusate Sodium 2 tab PO HS PRN 05/19/22 05/19/22 History [Senokot-S] Tamsulosin [Flomax] 0.4 mg PO DAILY@0800 05/19/22 05/19/22 History guaiFENesin-DM 600/30MG [Mucinex 1 tab PO Q12HR PRN 05/19/22 05/19/22 History Dm] Allergies Allergy/AdvReac Type Severity Reaction Status Date / Time protamine Allergy Anaphylaxis Verified 05/19/22 18:21 Surgical - Exam Osteopathic Statement: *. No significant issues noted on an osteopathic structural exam other than those noted in the History and Physical/Consult. Vital Signs Temp Pulse Resp BP Pulse Ox 98.8 F 86 20 86/53 100 05/19/22 16:07 05/19/22 16:07 05/19/22 16:07 05/19/22 16:07 05/19/22 16:07 Patient has a presacral decubitus which is about 11 x 5 cm and about 4 cm in depth. The wound is fairly clean. Results - Labs 05/24/22 06:29 05/24/22 06:29 Abnormal Lab Results - Last 24 Hours (Table) 05/23/22 05/23/22 05/24/22 Range/Units 17:26 21:27 06:25 RBC (4.40-5.60) X 10*6/uL Hgb (13.0-17.0) g/dL Hct (39.6-50.0) % MCV (80.0-97.0) fL MCHC (32.0-37.0) g/dL RDW (11.5-14.5) % Immature Gran # (0.00-0.04) X 10*3/uL Lymphocytes # (0.90-5.00) X 10*3/uL Carbon Dioxide (20.0-27.5) mmol/L Glucose (70-110) mg/dL POC Glucose (mg/dL) 153 H 225 H 176 H (70-110) mg/dL Calcium (8.7-10.3) mg/dL Crossmatch 05/24/22 05/24/22 05/24/22 Range/Units 06:29 06:29 11:19 RBC 2.27 L (4.40-5.60) X 10*6/uL Hgb 6.6 L* (13.0-17.0) g/dL Hct 22.2 L (39.6-50.0) % MCV 97.8 H (80.0-97.0) fL MCHC 29.7 L (32.0-37.0) g/dL RDW 17.7 H (11.5-14.5) % Immature Gran # 0.13 H (0.00-0.04) X 10*3/uL Lymphocytes # 0.54 L (0.90-5.00) X 10*3/uL Carbon Dioxide 30.8 H (20.0-27.5) mmol/L Glucose 145 H (70-110) mg/dL POC Glucose (mg/dL) 214 H (70-110) mg/dL Calcium 8.6 L (8.7-10.3) mg/dL Crossmatch 05/24/22 Range/Units 12:35 RBC (4.40-5.60) X 10*6/uL Hgb (13.0-17.0) g/dL Hct (39.6-50.0) % MCV (80.0-97.0) fL MCHC (32.0-37.0) g/dL RDW (11.5-14.5) % Immature Gran # (0.00-0.04) X 10*3/uL Lymphocytes # (0.90-5.00) X 10*3/uL Carbon Dioxide (20.0-27.5) mmol/L Glucose (70-110) mg/dL POC Glucose (mg/dL) (70-110) mg/dL Calcium (8.7-10.3) mg/dL Crossmatch See Detail Microbiology - Last 24 Hours (Table) 05/19/22 16:13 Blood Culture - Preliminary Blood No Growth after 96 hours 05/19/22 16:20 Blood Culture - Preliminary Blood No Growth after 96 hours Diabetes panel 05/24/22 Range/Units 06:29 Sodium 143 (135-145) mmol/L Potassium 4.0 (3.5-5.5) mmol/L Chloride 101 (96-109) mmol/L Carbon Dioxide 30.8 H (20.0-27.5) mmol/L BUN 16.9 (9.0-27.0) mg/dL Creatinine 1.1 (0.6-1.5) mg/dL Glucose 145 H (70-110) mg/dL Calcium 8.6 L (8.7-10.3) mg/dL Calcium panel 05/24/22 Range/Units 06:29 Calcium 8.6 L (8.7-10.3) mg/dL Pituitary panel 05/24/22 Range/Units 06:29 Sodium 143 (135-145) mmol/L Potassium 4.0 (3.5-5.5) mmol/L Chloride 101 (96-109) mmol/L Carbon Dioxide 30.8 H (20.0-27.5) mmol/L BUN 16.9 (9.0-27.0) mg/dL Creatinine 1.1 (0.6-1.5) mg/dL Glucose 145 H (70-110) mg/dL Calcium 8.6 L (8.7-10.3) mg/dL Adrenal panel 05/24/22 Range/Units 06:29 Sodium 143 (135-145) mmol/L Potassium 4.0 (3.5-5.5) mmol/L Chloride 101 (96-109) mmol/L Carbon Dioxide 30.8 H (20.0-27.5) mmol/L BUN 16.9 (9.0-27.0) mg/dL Creatinine 1.1 (0.6-1.5) mg/dL Glucose 145 H (70-110) mg/dL Calcium 8.6 L (8.7-10.3) mg/dL Assessment and Plan (1) Stage III pressure ulcer of sacral region Current Visit: Yes Status: Acute Code(s): L89.153 - PRESSURE ULCER OF SACRAL REGION, STAGE 3 SNOMED Code(s): 94621826946557 (2) Type 2 diabetes mellitus with other skin ulcer Current Visit: No Status: Acute Code(s): E11.622 - TYPE 2 DIABETES MELLITUS WITH OTHER SKIN ULCER; L98.499 - NON-PRESSURE CHRONIC ULCER OF SKIN OF SITES W UNSP SEVERITY SNOMED Code(s): 930088188 Plan: I discussed with the patient and his in detail a treatment plan. I would start with absorptive silver (silver alginate) this would be covered by 4 x 4's or ABG. The silver alginate and the interlayer of the dressing would be lightly moistened with saline. You could hold the dressing in place with the sacral foam. I would then recommend utilizing a wound VAC with black foam at a negative pressure of 1 25 mmHg. This patient would likely benefit from ongoing surveillance and care in the wound care center. I also discussed with patient and his the need to offload the area either by sitting forward or lying on his side. Once we had the wound cleaned up a bit I would also consider a plastics consultation, as long as his medical condition is improved enough. Thank you for the opportunity to participate in this unfortunate gentleman scare. We would be happy to follow him in wound care if desired.
[2022-05-24 17:43] LABS: Glucose,Whole Blood 148 mg/dL (70-110)
[2022-05-24] MEDS: ATORVASTATIN 40 MG TAB PO SCH (18:23)
[2022-05-24] MEDS: VIT A,C & E-LUTEIN-MINERALS 1 EACH TAB PO SCH (18:23)
[2022-05-24 20:32] LABS: Glucose,Whole Blood 213 mg/dL (70-110)
[2022-05-24] MEDS ORDERED: ALPRAZolam 0.25 MG TAB PO STA (21:07)
--- NOTE | 2022-05-24 21:23 | P.CONS ---
History of Present Illness - Reason for Consult Consult date: 05/24/22 Decubitus ulcer Requesting physician: Angeles eMehan - Chief Complaint Increasing shortness of breath x few days - History of Present Illness Patient is a 72-year-old male who was recently admitted at [facility] in this patient who is status post coronary bypass grafting 3 closure of patent foramen ovale with on 04/19/2022 postoperatively the patient did develop unstageable pressure ulcer to the sacral area that didn't require surgical debridement by general surgery and the patient did have elevated white count unfortunately no cultures were done at the time of surgical debridement patient was advised short course of IV Zosyn on discharge patient was discharged to the local senior care on 05/18/2022, patient presented back to the hospital within 24 hour for evaluation of increasing shortness of breath and hypoxemia requiring supplemental oxygen patient also complaining of some chest pain patient has been in the hospital for the last 5 days infectious disease was consulted today for management of his sacral wound any for further antibiotic therapy at this point. The patient has been afebrile throughout his hospital stay the patient did have a normal white count may symptom remains to be shortness of breath on minimal exertion as significant chest pain or cough also have significant swelling to bilateral lower extremity patient did have some dull aching pain to the sacral wound area 2-3 out of 10 and no radiation denies any foul-smelling drainage and denies having any diarrhea Review of Systems Positive point has been mentioned in the HPI rest of the systems are negative Past Medical History Past Medical History: Atrial Fibrillation, Blood Disorder, COPD, Diabetes Mellitus, GI Bleed, Hearing Disorder / Deafness, Hyperlipidemia, Hypertension, Myocardial Infarction (HI), Pneumonia Additional Past Medical History / Comment(s): Anemia, had GI Bleed 11/22, had 4 units of blood. Bilateral lower extremity edema. Hx HI X2. Insomnia. Hx Pneumonia. Chronic back pain. Last Myocardial Infarction Date:: 11/2021 History of Any Multi-Drug Resistant Organisms: None Reported Past Surgical History: Back Surgery, Heart Catheterization With Stent, Joint Replacement, Orthopedic Surgery Additional Past Surgical History / Comment(s): BILATERAL KNEE REPLACEMENTS, BILATERAL SHOULDER SURGERY, ONE CARDIAC STENT, back surgery X2 (lumbar d ecompression and fusion), BACK INJECTIONS, COLONOSCOPY, BILATERAL CATARACTS REMOVED WITH LENS IMPLANTS, Cardioversion. Past Anesthesia/Blood Transfusion Reactions: No Reported Reaction Date of Last Stent Placement:: 2000 Smoking Status: Current some day smoker - Past Family History Father Family Medical History: No Reported History Mother Family Medical History: No Reported History Medications and Allergies Home Medications Medication Instructions Recorded Confirmed Type Vit C/E/Zn/Coppr/Lutein/Zeaxan 2 cap PO DAILY@1500 02/19/17 05/19/22 History [Preservision Areds 2 Softgel] Apixaban [Eliquis] 5 mg PO BID@0800,1700 11/09/21 05/19/22 History Fluticasone/Umeclidin/Vilanter 1 puff INHALATION RT-HS@2100 11/09/21 05/19/22 History [Trelegy Ellipta 100-62.5-25] Ferrous Sulfate [Iron (65 MG 325 mg PO BID@0800,1700 12/22/21 05/19/22 History Elemental)] Ipratropium-Albuterol Nebulize 3 ml INHALATION RT-QID@,,,12/22/21 05/19/22 History [Duoneb 0.5 mg-3 mg/3 ml Soln] PRN Acetaminophen Tab [Tylenol] 650 mg PO Q6HR PRN tab 05/18/22 05/19/22 Rx Ipratropium-Albuterol Nebulize 3 ml INHALATION RT-Q2H PRN each 05/18/22 05/19/22 Rx [Duoneb 0.5 mg-3 mg/3 ml Soln] bisacodyL [Dulcolax] 10 mg RECTAL DAILY PRN suppositor 05/18/22 05/19/22 Rx lisinopriL [Zestril] 5 mg PO DAILY@1200 tab 05/18/22 05/19/22 Rx Arginaid 1 packet PO BID@0800,1700 05/19/22 05/19/22 History Ascorbic Acid [Vitamin C] 500 mg PO DAILY@1200 05/19/22 05/19/22 History Aspirin 81 mg PO DAILY@1200 05/19/22 05/19/22 History Atorvastatin [Lipitor] 40 mg PO DAILY@1700 05/19/22 05/19/22 History Benzocaine/Menthol Lozeng [Cepacol 1 lozenge MUCOUS MEM Q2HR PRN 05/19/22 05/19/22 History lozenge] Bumetanide [BUMEX] 2 mg PO DAILY@0800 05/19/22 05/19/22 History Collagenase [Santyl Ointment] 1 applic TOPICAL DAILY 05/19/22 05/19/22 History Collagenase [Santyl Ointment] 1 applic TOPICAL DAILY PRN 05/19/22 05/19/22 History Dapagliflozin Propanediol [Farxiga] 10 mg PO DAILY@0800 05/19/22 05/19/22 History Glucerna Shake 1 can PO TID@0800,1200,1700 05/19/22 05/19/22 History HYDROcodone/APAP 5-325MG [[place] 1 tab PO Q6HR PRN 05/19/22 05/19/22 History 5-325] INSULIN ASPART (NovoLOG) [NovoLOG See Protocol SQ ACHS 05/19/22 05/19/22 History (formulary)] Lidocaine 5% Patch [Lidoderm 5% 2 patch TOPICAL DAILY@0800 05/19/22 05/19/22 H istory Patch] Magnesium Hydroxide [Milk of 7,200 mg PO DAILY PRN 05/19/22 05/19/22 History Magnesia Concentrate] Metoprolol Tartrate [Lopressor] 25 mg PO BID@0800,1700 05/19/22 05/19/22 History Na Phos,M-B/Na Phos,Di-Ba [Fleet 133 ml RECTAL DAILY PRN 05/19/22 05/19/22 History Adult] Pantoprazole [Protonix] 40 mg PO BID@0800,1700 05/19/22 05/19/22 History Piperacillin-Tazobactam [Zosyn] 3.375 gm IVPB TID@0600,1400,2200 05/19/22 05/19/22 History Potassium Chloride ER [K-Dur 10] 10 meq PO DAILY@1200 05/19/22 05/19/22 History Sennosides-Docusate Sodium 2 tab PO HS PRN 05/19/22 05/19/22 History [Senokot-S] Tamsulosin [Flomax] 0.4 mg PO DAILY@0800 05/19/22 05/19/22 History guaiFENesin-DM 600/30MG [Mucinex 1 tab PO Q12HR PRN 05/19/22 05/19/22 History Dm] Allergies Allergy/AdvReac Type Severity Reaction Status Date / Time protamine Allergy Anaphylaxis Verified 05/19/22 18:21 Physical Exam Vitals: Vital Signs Temp Pulse Pulse Resp BP Pulse Ox 05/24/22 12:18 90 05/24/22 12:06 90 05/24/22 08:41 88 05/24/22 08:32 88 05/24/22 08:00 98.0 F 81 20 108/59 91 L 05/24/22 05:36 90 05/24/22 05:27 99 05/24/22 05:23 91 05/24/22 03:35 98.1 F 92 19 101/60 97 05/24/22 01:59 91 05/24/22 01:19 75 05/23/22 20:00 75 22 05/23/22 19:54 98.3 F 91 18 111/50 95 05/23/22 19:43 90 05/23/22 19:32 84 05/23/22 15:23 80 05/23/22 15:11 75 97 Intake and Output 05/23/22 05/24/22 05/24/22 22:59 06:59 14:59 Intake Total 574 1065 Output Total 401 1600 200 Balance 173 -1600 865 Intake: Intake, IV Titration 100 Amount Piperacillin-Tazobactam 3 100 .375 gm In Sodium Chloride 0.9% 100 ml @ 25 mls/hr IVPB Q8HR [facility] Rx# :[id number] Oral 474 1065 Output: Urine 400 1600 200 Stool 1 Other: Voiding Method Urinal # Voids 2 # Bowel Movements 1 Weight 85.1 kg GENERAL DESCRIPTION: Elderly male lying in bed, no distress. No tachypnea or accessory muscle of respiration use. HEENT: Shows Pallor , no scleral icterus. Oral mucous membrane is dry. No pharyngeal erythema or thrush NECK: Trachea central, no thyromegaly. LUNGS: Unlabored breathing. Decreased breath sound at the base. No wheeze or crackle. HEART: S1, S2, regular rate and rhythm. No loud murmur ABDOMEN: Soft, no tenderness , guarding or rigidity, no organomegaly EXTREMITIES: 2+ edema of feet. SKIN: No rash, no masses palpable. Patient with stage III sacral pressure ulcer minimal slough tissue no surrounding redness or foul-smelling drainage NEUROLOGICAL: The patient is awake, alert, oriented x3, mood and affect normal. Results CBC & Chem 7: 05/24/22 06:29 05/24/22 06:29 Labs: Abnormal Lab Results - Last 24 Hours (Table) 05/23/22 05/23/22 05/24/22 Range/Units 17:26 21:27 06:25 RBC (4.40-5.60) X 10*6/uL Hgb (13.0-17.0) g/dL Hct (39.6-50.0) % MCV (80.0-97.0) fL MCHC (32.0-37.0) g/dL RDW (11.5-14.5) % Immature Gran # (0.00-0.04) X 10*3/uL Lymphocytes # (0.90-5.00) X 10*3/uL Carbon Dioxide (20.0-27.5) mmol/L Glucose (70-110) mg/dL POC Glucose (mg/dL) 153 H 225 H 176 H (70-110) mg/dL Calcium (8.7-10.3) mg/dL 05/24/22 05/24/22 05/24/22 Range/Units 06:29 06:29 11:19 RBC 2.27 L (4.40-5.60) X 10*6/uL Hgb 6.6 L* (13.0-17.0) g/dL Hct 22.2 L (39.6-50.0) % MCV 97.8 H (80.0-97.0) fL MCHC 29.7 L (32.0-37.0) g/dL RDW 17.7 H (11.5-14.5) % Immature Gran # 0.13 H (0.00-0.04) X 10*3/uL Lymphocytes # 0.54 L (0.90-5.00) X 10*3/uL Carbon Dioxide 30.8 H (20.0-27.5) mmol/L Glucose 145 H (70-110) mg/dL POC Glucose (mg/dL) 214 H (70-110) mg/dL Calcium 8.6 L (8.7-10.3) mg/dL Microbiology - Last 24 Hours (Table) 05/19/22 16:13 Blood Culture - Preliminary Blood No Growth after 96 hours 05/19/22 16:20 Blood Culture - Preliminary Blood No Growth after 96 hours Assessment and Plan Plan: 1patient with a stage III sacral pressure ulcer acquired after the patient did undergo CABG surgery in this patient who is status post surgical debridement on his last admission wound base currently with minimal slough tissue however no significant surrounding swelling redness or any foul-smelling drainage patient not running any fever and white count is normal 2local wound care to continue with the Santyl however the systolic has been advised to try applying a wound VAC that will help. 3discontinue Zosyn as the patient received adequate antibiotic therapy for his underlying wound infection. We will follow on clinical condition and cultures to further adjust medication if needed Thank you for this consultation will follow this patient with you
[2022-05-25] MEDS: IPRATROPIUM-ALBUTEROL 3 ML NEB INHALATION PRN ×2 (00:46→04:35)
[2022-05-25] MEDS: PIPERACILLIN-TAZOBACTAM 3.375 GM in SODIUM CHLORIDE 0.9% 100 ML IVPB SCH (01:00)
--- NOTE | 2022-05-25 02:34 | P.PN ---
Subjective Progress Note Date: 05/24/22 72-year-old male had a recent with coronary artery disease and CABG 3 and a close the PFO on 19 of April came in with compensative shortness of breath on weaning can start failure patient has EF of around the 40 with 50%. Patient has bilateral lower sweaty edema. was having orthopnea paroxysmal nocturnal dyspnea does have a pulmonary edema on the chest x-ray patient was started on IV Lasix BNP is around 10,000. 05/21/2022 Patient is seen and evaluated this morning currently sitting up in chair with at bedside. Patient is maintained on breathing treatments along with IV Lasix and currently maintaining saturations above 90% on room air. Patient's lower extremities elevated slightly in continued on compression stockings. CT surgery following recommending continued IV diuresis and discharge planning process for [facility]. Patient continues with significant weakness and will need ECF upon discharge. Lung sounds were with crackles noted and will continue IV Lasix and follow-up repeat labs. Patient continues with chest wall pain and heart hugger is noted. Incentive spirometer at the bedside and encourage the patient to continue using at least 10 times every hour while awake. Patient is afebrile denies worsening shortness of breath. Encourage the patient to continu e elevating lower extremities while at rest. Will have PT/OT evaluate the patient 05/22/2022 Patient is seen in follow-up this morning lying in bed appears dyspneic at rest continued on 2 L via nasal cannula. Chest x-ray shows CHF and is maintained on IV Lasix with CT surgery cardiology following. Patient also appears significantly pale will follow-up with a.m. labs. Most recent hemoglobin was 7.4. Patient continues to be dyspneic with minimal exertion and during conversation and appears generally ill. Patient extremely weak will be returning to rehab once more stable. Recommend follow-up labs in the a.m. Patient is currently afebrile denies chest pain or palpitations. Patient con tinues to report shortness of breath. Oral intake is fair and need encouragement. Recommend to monitor blood sugars before meals and at bedtime and will use sliding scale as needed. 05/23/2022 Patient is seen and evaluated in follow-up currently sitting up in the chair reporting has resting dyspnea has improved although feels he has no reserve. Patient is maintained on 2 L via nasal cannula maintaining oxygen saturations above 90%. Patient is up and walking to the bathroom continues with weakness although feels somewhat improved each day. Patient continues with lower extremity edema with compression stockings and is improving slowly with cardiology and CT surgery following recommending to continue on IV diuresis. Patient also continues on IV Zosyn during his past prolonged hospitalization post debridement of a decubitus ulcer with no cultures obtained and ID was following at that time recommending a minimum of 2 weeks of Zosyn. Patient has the flu as well on this admission. Recommend work with physical therapy daily. Patient was also continued on DuoNeb treatments and will continue. 05/24/2022 Patient seen and evaluated in follow-up today with multiple medical consultat ions following including CT surgery and cardiology. Wound care consultation along with infectious disease being placed as patient was maintained on Zosyn sacral decubitus ulcer and has received more than 2 week course monitor off antibiotics. Care and offloading and frequent position changes to the sacral area. Possible wound VAC. Encouraged to increase activity as tolerated. CT surgery following an cardiology recommending decreasing the IV Lasix dose and recommend close monitoring of labs. Patient's hemoglobin 6.6 today and will transfuse 1 unit of PRBC recommend follow-up labs in a.m. Encouraged increase activity as tolerated and encourage oral intake. Recommend to continue using i ncentive spirometer at least 10 times every hour while awake. Review of systems: Constitutional: No reports of fatigue, no fever, or chills Cardiovascular: No reports of chest pain or palpitations, reports chest wall pain with movement and coughing Respiratory: No reports of worsening shortness of breath, reports continued shortness of breath with minimal movement and did have a rough night with his breathing GI: No reports of nausea, vomiting, or diarrhea, reports eating a little better : No reports of dysuria or retention Neurovascular: reports of generalized weakness and reports improvement in lower extremity edema, reports sacral pain All medications have been reviewed PHYSICAL EXAMINATION: GENERAL: The patient is alert and oriented x3, less dyspneic with conversation, ill-appearing Well developed, well nourished. HEENT: Pupils are round and equally reacting to light. EOMI. No scleral icterus. No conjunctival pallor. Normocephalic, atraumatic. No pharyngeal erythema. No thyromegaly. CARDIOVASCULAR: S1 and S2 present. No murmurs, rubs, or gallops. Elevated JVD PULMONARY: bilateral lower lobe crackles noted with some improvement. Diminished breath sounds bilaterally ABDOMEN: Soft, nontender, nondistended, normoactive bowel sounds. No palpable organomegaly. MUSCULOSKELETAL: No joint swelling or deformity. EXTREMITIES: No cyanosis, clubbing, bilateral lower extremity edema noted with compression stockings NEUROLOGICAL: Gross neurological examination did not reveal any focal deficits. Diffusely weak SKIN: No rashes. Stage III sacral decubitus ulcer Assessment: -Congestive heart failure chronic systolic dysfunction with acute exacerbation: Patient will be continued on IV Lasix -Influenza infection -coronary artery disease with recent PCI and CABG about a month ago -Sacral decubitus ulcer stage III, status post recent debridement -persistent atrial fibrillation presently in sinus rhythm -Hypertension -hyperlipidemia -COPD without any acute exacerbation -Anemia secondary to surgery which is a chronic anemia, will need further evaluation as an outpatient. -DVT prophylaxis: Patient is on eliquis for atrial fibrillation Plan: Recommend to continue current medications and continue with IV Lasix diuresis with follow-up labs Recommend to transfuse 1 unit of PRBC for a hemoglobin of 6.6 follow-up with a.m. labs Wound care and infectious disease consulted as patient has been maintained on IV Zosyn sacral decubitus ulcer pain of the area and appreciate input and recommendations consultations Patient seen and evaluated by CT surgery recommending continuing IV diuresis and return to ECF for continued therapy PT/OT to evaluate the patient and recommend working with daily as patient continues with weakness Recommend continue with breathing treatments and other home medications Patient was continued on IV Zosyn for decubitus ulcer and will be discontinued and monitor closely of antibiotics as patient has received adequate treatment per ID recommendation Wound care recommending local wound care with absorbent silver and a wound VAC will discuss case management Case management following working on discharge planning once patient is stable to ECF Encouraged to increase activity as tolerated and continued incentive spirometer use Encourage the patient elevating lower extremities while at rest Prognosis is guarded The impression and plan of care has been dictated by Angeles Meehan Nurse Practitioner as directed. Dr. Ila MD I have performed a history and examination and MDM of this patient, discussed the same with the dictator, and agree with the dictator's assessment and plan as written ,documented as a scribe. Based on total visit time, I have performed more than 50% of the visit. Objective - Vital Signs Vital signs: Vital Signs Temp 98.0 F 05/24/22 08:00 Pulse 88 05/24/22 08:41 Resp 20 05/24/22 08:00 BP 108/59 05/24/22 08:00 Pulse Ox 91 L 05/24/22 08:00 FiO2 Intake & Output 05/23/22 05/24/22 05/24/22 18:59 06:59 18:59 Intake Total 3351 640 6428 Output Total 900 1801 Balance 894 -1701 1065 Weight 85.1 kg Intake: Intake, IV Titration 100 Amount Piperacillin-Tazobactam 3 100 .375 gm In Sodium Chloride 0.9% 100 ml @ 25 mls/hr IVPB Q8HR [facility] Rx# :[id number] Oral 1794 1065 Output: Urine 900 1800 Stool 1 Other: Voiding Method Urinal # Bowel Movements 1 - Labs CBC & Chem 7: 05/24/22 06:29 05/24/22 06:29 Labs: Abnormal Lab Results - Last 24 Hours (Table) 05/23/22 05/23/22 05/23/22 Range/Units 12:08 17:26 21:27 Carbon Dioxide (20.0-27.5) mmol/L Glucose (70-110) mg/dL POC Glucose (mg/dL) 221 H 153 H 225 H (70-110) mg/dL Calcium (8.7-10.3) mg/dL 05/24/22 05/24/22 Range/Units 06:25 06:29 Carbon Dioxide 30.8 H (20.0-27.5) mmol/L Glucose 145 H (70-110) mg/dL POC Glucose (mg/dL) 176 H (70-110) mg/dL Calcium 8.6 L (8.7-10.3) mg/dL Microbiology - Last 24 Hours (Table) 05/19/22 16:13 Blood Culture - Preliminary Blood No Growth after 96 hours 05/19/22 16:20 Blood Culture - Preliminary Blood No Growth after 96 hours
[2022-05-25 05:59] LABS: Glucose,Whole Blood 157 mg/dL (70-110)
[2022-05-25] MEDS: INSULIN ASPART (NovoLOG) 100 UNIT/ML VIAL SQ SCH ×4 (06:32→21:36)
[2022-05-25] MEDS ORDERED: INSULIN DETEMIR (LEVEMIR) 100 UNIT/ML SYR SQ SCH (07:00)
[2022-05-25] MEDS: SYMBICORT 80-4.5 MCG INHALER INHALATION SCH ×2 (07:29→19:25)
[2022-05-25] MEDS: IPRATROPIUM-ALBUTEROL 3 ML NEB INHALATION SCH ×4 (07:29→19:24)
[2022-05-25 08:08] LABS: Anisocytosis Slight; HCT 24.8 % (39.0-53.0); HGB 7.5 gm/dL (13.0-17.5); Hypochromasia Marked; MCH 29.1 pg (25.0-35.0); MCHC 30.1 g/dL (31.0-37.0); MCV 96.8 fL (80.0-100.0); Macrocytosis Slight; Mean Platelet Volume 8.3; Platelet Count 306 k/uL (150-450); Poikilocytosis Moderate; RBC 2.56 m/uL (4.30-5.90); RDW 16.5 % (11.5-15.5)
[2022-05-25 08:11] LABS: African American GFR (CKD) >90 (>60 ml/min/1.73 sqM); Anion Gap 1 mmol/L; Blood Urea Nitrogen 20 mg/dL (9-20); Calcium 8.1 mg/dL (8.4-10.2); Carbon Dioxide 33 mmol/L (22-30); Chloride 105 mmol/L (98-107); Glucose 132 mg/dL (74-99); Magnesium 2.3 mg/dL (1.6-2.3); Non-African American GFR(CKD) 81 (>60 ml/min/1.73 sqM); Potassium 4.5 mmol/L (3.5-5.1); Sodium 139 mmol/L (137-145)
--- NOTE | 2022-05-25 08:33 | XR ---
EXAMINATION TYPE: XR chest 1V portable DATE OF EXAM: 05/25/2022 HISTORY: Shortness of breath. COMPARISON: 05/24/2022 TECHNIQUE: Single view of the chest is submitted. FINDINGS: Demonstrated are scattered senescent parenchymal change. Persistent cardiomegaly with pulmonary venous congestion scattered infiltrates and bilateral effusion s essentially stable. The graft Hilar and mediastinal structures are within normal limits. Degenerative changes are seen of the dorsal spine. IMPRESSION: 1. Stable chest.
[2022-05-25] MEDS: DAPAGLIFLOZIN PROPANEDIOL 10 MG TABLET PO SCH (08:46)
[2022-05-25] MEDS: PANTOPRAZOLE 40 MG TABLET PO SCH ×2 (08:46→16:53)
[2022-05-25] MEDS: INSULIN DETEMIR (LEVEMIR) 100 UNIT/ML SYR SQ SCH (08:46)
[2022-05-25] MEDS: METOPROLOL TARTRATE 25 MG TAB PO SCH ×2 (08:46→16:53)
[2022-05-25] MEDS: TAMSULOSIN 0.4 MG CAP.ER.24H PO SCH (08:47)
[2022-05-25] MEDS: FERROUS SULFATE 325 MG TAB PO SCH ×2 (08:47→16:53)
[2022-05-25] MEDS: LIDOCAINE 5% PATCH TOPICAL SCH (08:48)
[2022-05-25] MEDS: COLLAGENASE 250 UNIT/GM OINTMENT 30 GM TUBE TOPICAL SCH (08:48)
[2022-05-25] MEDS ORDERED: FUROSEMIDE 40 MG TAB PO SCH (09:00)
--- NOTE | 2022-05-25 09:12 | P.CONS ---
History of Present Illness - Reason for Consult Consult date: 05/25/22 Anemia, recent history of duodenal AVM Requesting physician: Herve Retana - Chief Complaint Shortness of breath, influenza A+ - History of Present Illness This is pleasant 72-year-old male who recently underwent mitral valve repair, CABG and closure of patent toth oval on 04/19/2022 and spent nearly a month in the hospital. During his last admission he was noted to be significantly anemic with reported of black stools. He had initially an EGD done by Dr. Cardenas on 05/08/2022 with findings of duodenitis and distal esophagitis with fresh blood in the third and fourth portion of the duodenum. He continued to have drop in his hemoglobin and underwent an EGD with Dr. 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 Once clips were placed patient hemoglobin was stabilized. His Eliquis was then resumed. He was discharged to rehab on 05/18/2022. He was sent back to the emergency room the next day and 05/19/2022 for increased shortness of breath chest discomfort as well as lower extremity swelling. Patient tested positive for influenza A. He should has continued with his eliquis, he was noted to have a drop in his hemoglobin yesterday to 6.6. He still reports dark stool but is seems to be lightening up. Cardiothoracic surgery asked gastroenterology to see patient as he is known to them. Last dose of Eliquis was yesterday evening. He denies any abdominal pain, nausea or vomiting. He was transfused 1 unit of blood with repeat hemoglobin today of 7.5. Review of Systems REVIEW OF SYSTEMS: CARDIOPULMONARY: No chest pain, reports shortness of breath. Lower extremity swelling. Gastrointestinal: No epigastric or abdominal pain.. No nausea or vomiting. No hematemesis, coffee-ground emesis. No rectal bleeding, or melena. Patient states stools have been somewhat dark he is on iron but seems to be lightening up. GENITOURINARY: No dysuria or hematuria. MUSCULOSKELETAL: Reports normal range of motion. SKIN: No rashes. No jaundice. ENDOCRINE: No chills, fevers. No excessive weight gain or loss. No polydipsia or polyuria. PSYCHIATRIC: Unremarkable. NEUROLOGY: No change in mental status. Denies dizziness, headache. ENT: Vision unremarkable. CONSTITUTIONAL: No recent weight loss. No fever, chills, night sweats. Past Medical History Past Medical History: Atrial Fibrillation, Blood Disorder, COPD, Diabetes Mellitus, GI Bleed, Hearing Disorder / Deafness, Hyperlipidemia, Hypertension, Myocardial Infarction (NE), Pneumonia Additional Past Medical History / Comment(s): Anemia, had GI Bleed 11/22, had 4 units of blood. Bilateral lower extremity edema. Hx NE X2. Insomnia. Hx Pneumo maria dolores. Chronic back pain. Last Myocardial Infarction Date:: 11/2021 History of Any Multi-Drug Resistant Organisms: None Reported Past Surgical History: Back Surgery, Heart Catheterization With Stent, Joint Replacement, Orthopedic Surgery Additional Past Surgical History / Comment(s): BILATERAL KNEE REPLACEMENTS, BILATERAL SHOULDER SURGERY, ONE CARDIAC STENT, back surgery X2 (lumbar decompression and fusion), BACK INJECTIONS, COLONOSCOPY, BILATERAL CATARACTS REMOVED WITH LENS IMPLANTS, Cardioversion. Past Anesthesia/Blood Transfusion Reactions: No Reported Reaction Date of Last Stent Placement:: 2000 Smoking Status: Current some day smoker - Past Family History Father Family Medical History: No Reported History Mother Family Medical History: No Reported History Medications and Allergies Home Medications Medication Instructions Recorded Confirmed Type Vit C/E/Zn/Coppr/Lutein/Zeaxan 2 cap PO DAILY@1500 02/19/17 05/19/22 History [Preservision Areds 2 Softgel] Apixaban [Eliquis] 5 mg PO BID@0800,1700 11/09/21 05/19/22 History Fluticasone/Umeclidin/Vilanter 1 puff INHALATION RT-HS@2100 11/09/21 05/19/22 History [Trelegy Ellipta 100-62.5-25] Ferrous Sulfate [Iron (65 MG 325 mg PO BID@0800,1700 12/22/21 05/19/22 History Elemental)] Ipratropium-Albuterol Nebulize 3 ml INHALATION RT-QID@08,12,17,21 12/22/21 05/19/22 History [Duoneb 0.5 mg-3 mg/3 ml Soln] PRN Acetaminophen Tab [Tylenol] 650 mg PO Q6HR PRN tab 05/18/22 05/19/22 Rx Ipratropium-Albuterol Nebulize 3 ml INHALATION RT-Q2H PRN each 05/18/22 05/19/22 Rx [Duoneb 0.5 mg-3 mg/3 ml Soln] bisacodyL [Dulcolax] 10 mg RECTAL DAILY PRN suppositor 05/18/22 05/19/22 Rx lisinopriL [Zestril] 5 mg PO DAILY@1200 tab 05/18/22 05/19/22 Rx Arginaid 1 packet PO BID@0800,1700 05/19/22 05/19/22 History Ascorbic Acid [Vitamin C] 500 mg PO DAILY@1200 05/19/22 05/19/22 History Aspirin 81 mg PO DAILY@1200 05/19/22 05/19/22 History Atorvastatin [Lipitor] 40 mg PO DAILY@1700 05/19/22 05/19/22 History Benzocaine/Menthol Lozeng [Cepacol 1 lozenge MUCOUS MEM Q2HR PRN 05/19/2205/19 History lozenge] Bumetanide [BUMEX] 2 mg PO DAILY@0800 05/19/22 05/19/22 History Collagenase [Santyl Ointment] 1 applic TOPICAL DAILY 05/19/22 05/19/22 History Collagenase [Santyl Ointment] 1 applic TOPICAL DAILY PRN 05/19/22 05/19/22 History Dapagliflozin Propanediol [Farxiga] 10 mg PO DAILY@0800 05/19/22 05/19/22 History Glucerna Shake 1 can PO TID@0800,1200,1700 05/19/22 05/19/22 History HYDROcodone/APAP 5-325MG [May 1 tab PO Q6HR PRN 05/19/22 05/19/22 History 5-325] INSULIN ASPART (NovoLOG) [NovoLOG See Protocol SQ ACHS 05/19/22 05/19/22 History (formulary)] Lidocaine 5% Patch [Lidoderm 5% 2 patch TOPICAL DAILY@0800 05/19/22 05/19/22 History Patch] Magnesium Hydroxide [Milk of 7,200 mg PO DAILY PRN 05/19/22 05/19/22 History Magnesia Concentrate] Metoprolol Tartrate [Lopressor] 25 mg PO BID@0800,1700 05/19/22 05/19/22 History Na Phos,M-B/Na Phos,Di-Ba [Fleet 133 ml RECTAL DAILY PRN 05/19/22 05/19/22 History Adult] Pantoprazole [Protonix] 40 mg PO BID@0800,1700 05/19/22 05/19/22 History Piperacillin-Tazobactam [Zosyn] 3.375 gm IVPB TID@0600,1400,2200 05/19/22 05/19/22 History Potassium Chloride ER [K-Dur 10] 10 meq PO DAILY@1200 05/19/22 05/19/22 History Sennosides-Docusate Sodium 2 tab PO HS PRN 05/19/22 05/19/22 History [Senokot-S] Tamsulosin [Flomax] 0.4 mg PO DAILY@0800 05/19/22 05/19/22 History guaiFENesin-DM 600/30MG [Mucinex 1 tab PO Q12HR PRN 05/19/22 05/19/22 History Dm] Allergies Allergy/AdvReac Type Severity Reaction Status Date / Time protamine Allergy Anaphylaxis Verified 05/19/22 18:21 Physical Exam Vitals: Vital Signs Temp Pulse Pulse Resp BP BP BP 05/25/22 07:46 72 05/25/22 07:30 72 05/25/22 07:19 98.3 F 88 16 119/55 05/25/22 04:43 76 05/25/22 04:35 88 05/25/22 01:07 98.0 F 94 18 129/52 05/25/22 01:00 88 05/25/22 00:46 90 05/24/22 20:45 80 05/24/22 20:40 90 19 05/24/22 20:29 76 05/24/22 18:59 98.1 F 90 19 127/55 05/24/22 17:45 98.1 F 85 14 110/60 05/24/22 16:07 98.0 F 85 16 111/59 05/24/22 16:05 88 05/24/22 15:53 88 05/24/22 15:47 98.7 F 86 18 107/53 05/24/22 15:26 98.2 F 75 18 108/47 05/24/22 14:00 98.2 F 86 20 117/64 05/24/22 12:18 90 05/24/22 12:06 90 Pulse Ox 05/25/22 07:46 05/25/22 07:30 94 L 05/25/22 07:19 94 L 05/25/22 04:43 05/25/22 04:35 05/25/22 01:07 92 L 05/25/22 01:00 05/25/22 00:46 05/24/22 20:45 05/24/22 20:40 05/24/22 20:29 05/24/22 18:59 95 05/24/22 17:45 96 05/24/22 16:07 99 05/24/22 16:05 05/24/22 15:53 05/24/22 15:47 97 05/24/22 15:26 95 05/24/22 14:00 95 05/24/22 12:18 05/24/22 12:06 Intake and Output 05/24/22 05/25/22 05/25/22 22:59 06:59 14:59 Intake Total 784 Output Total 551 850 Balance 233 -850 Intake: Oral 474 Blood Product 310 Rc As-1 Unit 310 [id number] Output: Urine 550 850 Stool 1 Other: Voiding Method Urinal # Voids 1 # Bowel Movements 1 Weight 87 kg General appearance: The patient is alert, oriented, appears in no acute distress. HET: Head is normocephalic and atraumatic. Conjunctiva pink. Sclera anicteric. Neck: Supple without lymphadenopathy. Trachea midline. Heart: S1 S2. Regular rate and rhythm. Lungs: Normal expansion, normal respiratory effort. Abdomen: Soft, nontender, nondistended with bowel sounds. No guarding or rigidity. Skin: No rashes. No jaundice. Extremities: Normal skin color and turgor. Bilateral lower extremity swelling. Neurological: No focal deficits. Alert and oriented x3. Results CBC & Chem 7: 05/25/22 06:37 05/25/22 06:32 Labs: Abnormal Lab Results - Last 24 Hours (Table) 05/24/22 05/24/22 05/24/22 Range/Units 06:29 06:29 11:19 RBC 2.27 L (4.40-5.60) X 10*6/uL Hgb 6.6 L* (13.0-17.0) g/dL Hct 22.2 L (39.6-50.0) % MCV 97.8 H (80.0-97.0) fL MCHC 29.7 L (32.0-37.0) g/dL RDW 17.7 H (11.5-14.5) % Immature Gran # 0.13 H (0.00-0.04) X 10*3/uL Lymphocytes # 0.54 L (0.90-5.00) X 10*3/uL Carbon Dioxide 30.8 H (20.0-27.5) mmol/L Glucose 145 H (70-110) mg/dL POC Glucose (mg/dL) 214 H (70-110) mg/dL Calcium 8.6 L (8.7-10.3) mg/dL Crossmatch 05/24/22 05/24/22 05/24/22 Range/Units 12:35 17:41 20:31 RBC (4.40-5.60) X 10*6/uL Hgb (13.0-17.0) g/dL Hct (39.6-50.0) % MCV (80.0-97.0) fL MCHC (32.0-37.0) g/dL RDW (11.5-14.5) % Immature Gran # (0.00-0.04) X 10*3/uL Lymphocytes # (0.90-5.00) X 10*3/uL Carbon Dioxide (20.0-27.5) mmol/L Glucose (70-110) mg/dL POC Glucose (mg/dL) 148 H 213 H (70-110) mg/dL Calcium (8.7-10.3) mg/dL Crossmatch See Detail 05/25/22 05/25/22 05/25/22 Range/Units 05:57 06:32 06:37 RBC 2.56 L (4.40-5.60) X 10*6/uL Hgb 7.5 L (13.0-17.0) g/dL Hct 24.8 L (39.6-50.0) % MCV (80.0-97.0) fL MCHC 30.1 L (32.0-37.0) g/dL RDW 16.5 H (11.5-14.5) % Immature Gran # (0.00-0.04) X 10*3/uL Lymphocytes # (0.90-5.00) X 10*3/uL Carbon Dioxide 33 H (20.0-27.5) mmol/L Glucose 132 H (70-110) mg/dL POC Glucose (mg/dL) 157 H (70-110) mg/dL Calcium 8.1 L (8.7-10.3) mg/dL Crossmatch Microbiology - Last 24 Hours (Table) 05/19/22 16:13 Blood Culture - Preliminary Blood No Growth after 120 hours 05/19/22 16:20 Blood Culture - Preliminary Blood No Growth after 120 hours Assessment and Plan (1) Normocytic normochromic anemia Narrative/Plan: 72-year-old male who presented back to the hospital after all one day being discharged due to shortness of breath and chest pressure. Patient was noted to be positive for influenza A. He recently underwent heart surgery and was hospitalized for nearly 30 days. During that hospitalization he was seen by gastroenterology for anemia and was found to have bleeding duodenal AVM and 2 gastric AVMs all treated. Patient stabilized and his hemoglobin during that hospitalization and was cleared to resume Eliquis. Since that time he has been on his elbow quite is came in with a hemoglobin initially of 7.4 had a drop in his hemoglobin to 6.6 yesterday I was given 1 unit of blood with a repeat today of 7.4. Patient does not report any black tarry stool states his stool is dark but has been on iron. Due to history of previous AVMs during his last hospitalization and also previously during the summer with treatment need to consider upper GI bleed. Patient will tentatively be scheduled for an EGD on Saturday. However note that there is no gastroenterology available through the weekend. The patient continues to have a drop in his hemoglobin or any active bleeding recommend general surgery consult for transfer to tertiary center with available health and wellness director. Current Visit: No Status: Acute Code(s): D64.9 - ANEMIA, UNSPECIFIED SNOMED Code(s): 22914126 (2) Influenza A Current Visit: Yes Status: Acute Code(s): J10.1 - FLU DUE TO OTH IDENT INFLUENZA VIRUS W OTH RESP MANIFEST SNOMED Code(s): 104910183 (3) Duodenal arteriovenous malformation Narrative/Plan: Patient with recent upper GI bleed, status post EGD with findings of duodenal AVM status post argon plasma coagulation and clip placement Current Visit: Yes Status: Acute Code(s): K31.819 - ANGIODYSPLASIA OF STOMACH AND DUODENUM WITHOUT BLEEDING SNOMED Code(s): 123648541 Plan: 1. Continue diet as tolerated 2. Nothing by mouth after midnight Saturday 3. Hold Eliquis 4. Daily CBC, transfuse for hemoglobin less than 7 5. Protonix 40 mg daily Thank you for allowing us to participate in the care of the patient, the GI service will sign off, gastroenterology will not be available at the hospital this weekend. If further drop in hemoglobin or bleeding you may consult general surgery. If further evaluation by gastroenterology is required the patient will need transfer as per the primary team's discretion. Dr. Michelle Ramos I agree with the dictator's note, documented as a scribe by Radha Moody.
--- NOTE | 2022-05-25 09:17 | P.PN ---
Subjective Progress Note Date: 05/25/22 History of present illness: This pleasant 72-year-old gentleman who follows with Dr. Man in the office. He has a past medical history of persistent atrial fibrillation status post cardioversion, severe mitral valve regurgitation status post mitral valve repair as well as CAD with previous PCI and non-STEMI status post CABG 3 with closure of PFO on 04/19/2022, chronic systolic congestive heart failure, ischemic cardiomyopathy with an ejection fraction of 40-45%, hypertension, hyperlipidemia, right internal carotid artery stenosis, acute on chronic blood loss anemia, chronic kidney failure, type 2 diabetes, COPD and prior nicotine dependence. Was recently discharged tomorrow would for subacute rehab on 05/18/2022 after spending 29 days in the hospital postoperatively. 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 Foll owing discharge tomorrow would he developed progressively worsening shortness of breath, orthopnea and edema with hypoxemia requiring initiation of oxygen therapy. He was brought back to [facility] yesterday. Labs showed hemoglobin 7.5 with a subsequent dryness morning of 8.0, d-dimer 1.85, sodium 136, BUN 16, creatinine 1.06, minimal troponin elevation at 0.039 and an NT proBNP of 10,700. EKG showed sinus mechanism with nonspecific ST-T wave abnormalities but no evidence of acute ischemia. Chest x-ray showed cardiomegaly, pulmonary vascular congestion and bilateral pleural effusions, correlate with BNP for congestive heart failure. Subsequent chest x-ray this morning showed bilateral pleural effusions with right sided airspace opacities which could represent atelectasis versus developing pneumonia, clinical correlation. He did test positive for influenza A. He has been initiated on Lasix IV push 40 mg every 12 hours. Renal function this morning show some improvement compared to yesterday. He is overall feeling better. He feels the edema has significantly improved and his breathing is better. He's had no complaints of chest discomfort. Denies any palpitations, dizziness or lightheadedness. 05/21 Patient continues to have lower extremity edema. He denies having chest pain. He is currently on Lasix 40 mg IV every 12 hours. Urine output 2.3 L over the past 24 hours. Repeat blood work reveals hemoglobin of 7.4. Potassium 4.2, BUN 12 and creatinine 1.1. Pulse ox is 96% on 2 L, blood pressure 127/69, heart rate in the 70s. Repeat chest x-ray reveals bibasilar infiltrates with small bilateral pleural effusions, stable. 05/22 Patient continues to have shortness of breath hadn't multiple updraft treatments through the night. He is on IV Lasix 40 mg every 12 hours. Heart rate has been in the 80s, blood pressure 116/62, pulse ox 92% on 2 L.potassium 4.3, BUN 11 and creatinine 0.9. Repeat chest x-ray reveals CHF exacerbation and/or fluid overload state he demonstrated a slightly worsened 1 day prior. 05/23 Patient states that he had a rough night and required nebulizer treatments every couple hours. He continues to have some crackles in the lungs, wheezing improved, no lower extremity edema. We will plan to continue IV Lasix for another 24 hours. Repeat chest x-ray reveals stable portable chest. 05/24 This morning, patient is stating that his breathing is better and he feels well. Blood pressure is 108/59, pulse ox 99% on room air. Morning blood work is not available at the time of this dictation. Yesterday revealed potassium of 4.3, BUN 13 creatinine 1.1, hemoglobin 7.5. 05/25 Patient states today that his breathing is about the same as yesterday. He is currently on Lasix 20 mg IV twice daily. Yesterday's hemoglobin was 6.6 and patient received 1 unit of packed RBC and repeat hemoglobin this morning 7.5. BUN is 20 creatinine 0.94. Heart rate is been in the 70s, blood pressure 119/55 PHYSICAL EXAMINATION: This is a 72-year-old male in no apparent distress at the time of my examination. HEENT: Head is atraumatic, normocephalic. Pupils are equal, round. Sclerae anicteric. Conjunctivae are clear. Mucous membranes of the mouth are moist. There is no elevated jugular venous pressure. CHEST EXAMINATION: Lungs reveal diminished air entry bilaterally with minimal bibasilar crackles. Respirations even and nonlabored. HEART EXAMINATION: Heart regular, positive S1 and S2. No S3. No S4. Sternal incision healing well, stable. ABDOMEN: Soft, nontender. Bowel sounds are heard. No organomegaly noted. EXTREMITIES: 2+ peripheral pulses with evidence of mild to moderate peripheral edema and no calf tenderness noted. NEUROLOGIC EXAMINATION: Patient is awake, alert and oriented x3. Assessment: #1 acute on chronic systolic congestive heart failure #2 influenza A #3 severe mitral valve regurgitation status post mitral valve repair 04/19/2022 #4 CAD with prior PCI status post CABG 3 04/19/2022 #5 persistent atrial fibrillation, status post cardioversion, maintaining sinus mechanism, anticoagulated, status post modified Castanon maze and ligation of left atrial appendage #6 PFO status post closure #7 ischemic cardiomyopathy with an ejection fraction of 40-45% #8 hypertension #9 hyperlipidemia #10 right internal carotid stenosis #11 anemia, stable #12 COPD Plan: Transition IV Lasix to oral 40 mg daily Discussed case with cardiothoracic surgery and agreed that eliquis to be discontinued due to anemia, known to have duodenal AVM. Patient to continue on aspirin 81 mg daily, atorvastatin 40 mg daily, Farxiga 10 mg daily, Lopressor 25 mg twice daily Patient is to follow up with Dr. Man as an outpatient. MANAGER SHOP note has been reviewed, I agree with a documented findings and plan of care. Patient was seen and examined. Objective - Vital Signs Vital signs: Vital Signs Temp 98.0 F 05/25/22 01:07 Pulse 76 05/25/22 04:43 Resp 18 05/25/22 01:07 BP 129/52 05/25/22 01:07 Pulse Ox 92 L 05/25/22 01:07 FiO2 Intake & Output 05/24/22 05/25/22 05/25/22 18:59 06:59 18:59 Intake Total 2679 Output Total 500 1101 Balance 2179 -1101 Weight 87 kg Intake: Oral 2369 Blood Product 310 Rc As-1 Unit 310 [id number] Output: Urine 500 1100 Stool 1 Other: Voiding Method Urinal # Voids 1 1 # Bowel Movements 1 1 - Labs CBC & Chem 7: 05/25/22 06:37 05/25/22 06:32 Labs: Abnormal Lab Results - Last 24 Hours (Table) 05/24/22 05/24/22 05/24/22 Range/Units 06:29 06:29 11:19 RBC 2.27 L (4.40-5.60) X 10*6/uL Hgb 6.6 L* (13.0-17.0) g/dL Hct 22.2 L (39.6-50.0) % MCV 97.8 H (80.0-97.0) fL MCHC 29.7 L (32.0-37.0) g/dL RDW 17.7 H (11.5-14.5) % Immature Gran # 0.13 H (0.00-0.04) X 10*3/uL Lymphocytes # 0.54 L (0.90-5.00) X 10*3/uL Carbon Dioxide 30.8 H (20.0-27.5) mmol/L Glucose 145 H (70-110) mg/dL POC Glucose (mg/dL) 214 H (70-110) mg/dL Calcium 8.6 L (8.7-10.3) mg/dL Crossmatch 05/24/22 05/24/22 05/24/22 Range/Units 12:35 17:41 20:31 RBC (4.40-5.60) X 10*6/uL Hgb (13.0-17.0) g/dL Hct (39.6-50.0) % MCV (80.0-97.0) fL MCHC (32.0-37.0) g/dL RDW (11.5-14.5) % Immature Gran # (0.00-0.04) X 10*3/uL Lymphocytes # (0.90-5.00) X 10*3/uL Carbon Dioxide (20.0-27.5) mmol/L Glucose (70-110) mg/dL POC Glucose (mg/dL) 148 H 213 H (70-110) mg/dL Calcium (8.7-10.3) mg/dL Crossmatch See Detail 05/25/22 Range/Units 05:57 RBC (4.40-5.60) X 10*6/uL Hgb (13.0-17.0) g/dL Hct (39.6-50.0) % MCV (80.0-97.0) fL MCHC (32.0-37.0) g/dL RDW (11.5-14.5) % Immature Gran # (0.00-0.04) X 10*3/uL Lymphocytes # (0.90-5.00) X 10*3/uL Carbon Dioxide (20.0-27.5) mmol/L Glucose (70-110) mg/dL POC Glucose (mg/dL) 157 H (70-110) mg/dL Calcium (8.7-10.3) mg/dL Crossmatch Microbiology - Last 24 Hours (Table) 05/19/22 16:13 Blood Culture - Preliminary Blood No Growth after 120 hours 05/19/22 16:20 Blood Culture - Preliminary Blood No Growth after 120 hours
--- NOTE | 2022-05-25 09:20 | P.PN ---
Subjective Progress Note Date: 05/25/22 Principal diagnosis: Acute on chronic systolic heart failure, Influenza A PCR positive on admission. Past medical history significant for severe mitral valve regurgitation, status post mitral valve repair 04/19/22, coronary artery disease, previous PCI, previous non-STEMI, status post CABG 3 04/19/22, paroxysmal atrial fibrillation, previous cardioversion, on [facility] outpatient for anticoagulation, status post modified Castanon maze and ligation of left atrial appendage, patent foramen ovale, status post closure, chronic systolic congestive heart failure, ischemic cardiomyopathy with EF 40-45%, hypertension, hyperlipidemia, right internal carotid stenosis 50-79%, chronic blood loss anemia with history of GI bleed in November 2021 S/P transfusion PRBCs, 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 Patient was seen and examined today 05/25/2022 at his bedside on the sixth floor cardiac observation unit. Currently he is sitting up to bedside edge, is awake, alert, oriented 3 and is in no acute apparent distress. He denies any complaints of shortness of breath at this time although is complaining of some pain to his wound to his buttocks. Currently rates his pain 3-4 out of 10 on the pain scale. Oxygen saturations are 96% on 2 L nasal cannula and he is achieving 1000 mL on his incentive spirometry with encouragement. Yesterday his hemoglobin was 6.6 and was transfused 1 unit of packed red blood cells. Laboratory results this morning show a WBC count of 9.0, hemoglobin 7.5, hematocrit 24.8, platelets 306, sodium 139, potassium 4.5, BUN 20, creatinine 0.94, glucose 132, calcium 8.1 and magnesium 2.3. Chest x-ray was reviewed. The patient reports he has been up ambulating in his room independently and has been trying to keep off his bottom as much as possible. Antibiotics were discontinued yesterday by infectious disease. He was started on furosemide 40 mg by mouth daily today by cardiology. Objective - Vital Signs Vital signs: Vital Signs Temp 98.3 F 05/25/22 07:19 Pulse 72 05/25/22 07:46 Resp 16 05/25/22 07:19 BP 119/55 05/25/22 07:19 Pulse Ox 94 L 05/25/22 07:30 FiO2 Intake & Output 05/24/22 05/25/22 05/25/22 18:59 06:59 18:59 Intake Total 2679 Output Total 500 1101 Balance 2179 -1101 Weight 87 kg Intake: Oral 2369 Blood Product 310 Rc As-1 Unit 310 [id number] Output: Urine 500 1100 Stool 1 Other: Voiding Method Urinal # Voids 1 1 # Bowel Movements 1 1 - Exam CONSTITUTIONAL: Appears comfortable, cooperative, no acute distress. RESPIRATORY: Lungs sounds essentially diminished bilaterally throughout. Respirations are symmetrical, nonlabored. Currently on 2 L nasal cannula with oxygen saturation 96%. Able to achieve 1000 mL on incentive spirometry. Strong cough. CARDIOVASCULAR: S1, S2 present, negative for S3 or gallop. Soft systolic murmur heard best to his left sternal border. Regular rate and rhythm, sinus rhythm on telemetry. Sternum stable. Palpable peripheral pulses bilaterally. Bilateral +1 lower extremity pitting edema present. No calf pain or tenderness noted. Heart hugger in place with patient demonstrating appropriate use. Antiembolism stockings present. GASTROINTESTINAL: Abdomen soft, nontender, nondistended. Active bowel sounds present 4 quadrants. Tolerating diet. Bowel movement 05/24/22. GENITOURINARY: Continues to void clear, yellow urine. Urine output 850 mL in the last 8 hours. INTEGUMENTARY: Skin is warm and dry. Midline sternal incision well approximated without redness or drainage. Bilateral lower extremity EVH sites well approximated without redness or drainage. Stage III decubitus ulcer present to sacrum, covered with foam dressing. NEUROLOGIC: Cranial nerves II through XII intact. No focal deficits. MUSKULOSKELETAL: Able to move all extremities, strength equal bilaterally, gait normal. PSYCHIATRIC: Alert and oriented to person place and time, appropriate affect, intact judgment and insight. - Allied health notes Allied health notes reviewed: nursing - Labs CBC & Chem 7: 05/25/22 06:37 05/25/22 06:32 Labs: Abnormal Lab Results - Last 24 Hours (Table) 05/24/22 05/24/22 05/24/22 Range/Units 06:29 06:29 11:19 RBC 2.27 L (4.40-5.60) X 10*6/uL Hgb 6.6 L* (13.0-17.0) g/dL Hct 22.2 L (39.6-50.0) % MCV 97.8 H (80.0-97.0) fL MCHC 29.7 L (32.0-37.0) g/dL RDW 17.7 H (11.5-14.5) % Immature Gran # 0.13 H (0.00-0.04) X 10*3/uL Lymphocytes # 0.54 L (0.90-5.00) X 10*3/uL Carbon Dioxide 30.8 H (20.0-27.5) mmol/L Glucose 145 H (70-110) mg/dL POC Glucose (mg/dL) 214 H (70-110) mg/dL Calcium 8.6 L (8.7-10.3) mg/dL Crossmatch 05/24/22 05/24/22 05/24/22 Range/Units 12:35 17:41 20:31 RBC (4.40-5.60) X 10*6/uL Hgb (13.0-17.0) g/dL Hct (39.6-50.0) % MCV (80.0-97.0) fL MCHC (32.0-37.0) g/dL RDW (11.5-14.5) % Immature Gran # (0.00-0.04) X 10*3/uL Lymphocytes # (0.90-5.00) X 10*3/uL Carbon Dioxide (20.0-27.5) mmol/L Glucose (70-110) mg/dL POC Glucose (mg/dL) 148 H 213 H (70-110) mg/dL Calcium (8.7-10.3) mg/dL Crossmatch See Detail 05/25/22 05/25/22 05/25/22 Range/Units 05:57 06:32 06:37 RBC 2.56 L (4.40-5.60) X 10*6/uL Hgb 7.5 L (13.0-17.0) g/dL Hct 24.8 L (39.6-50.0) % MCV (80.0-97.0) fL MCHC 30.1 L (32.0-37.0) g/dL RDW 16.5 H (11.5-14.5) % Immature Gran # (0.00-0.04) X 10*3/uL Lymphocytes # (0.90-5.00) X 10*3/uL Carbon Dioxide 33 H (20.0-27.5) mmol/L Glucose 132 H (70-110) mg/dL POC Glucose (mg/dL) 157 H (70-110) mg/dL Calcium 8.1 L (8.7-10.3) mg/dL Crossmatch Microbiology - Last 24 Hours (Table) 05/19/22 16:13 Blood Culture - Preliminary Blood No Growth after 120 hours 05/19/22 16:20 Blood Culture - Preliminary Blood No Growth after 120 hours - Imaging and Cardiology Chest x-ray: report reviewed, image reviewed Assessment and Plan Assessment: 1. Acute on chronic systolic heart failure 2. Influenza A PCR positive on admission 3. Shortness of breath, hypoxia secondary to above 4. History of Severe mitral valve regurgitation, status post mitral valve repair 04/19/22 5. Coronary artery disease, previous PCI, previous non-STEMI, status post CABG 3 04/19/22 6. History of paroxysmal atrial fibrillation, previous cardioversion, on [facility] outpatient for anticoagulation, status post modified Castanon maze and ligation of left atrial appendage 7. Patent foramen ovale, status post closure 8. Chronic systolic congestive heart failure, ischemic cardiomyopathy with EF 40-45% 9. History of hypertension 10. History hyperlipidemia, treated, cholesterol 150, LDL 72 11. Right internal carotid stenosis 50-79% 12. 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 Chronic renal failure, baseline creatinine 1.28-1.6 14. Diabetes mellitus type 2, preoperative hemoglobin A1c 5.6% 15. Osteoarthritis, chronic low back pain 16. Severe COPD, preoperative FEV1 41% of predicted 17. Previous nicotine dependence 18. Sacral stage II ulcer status post debridement 19. Medical debility, generalized weakness 20. History of small left-sided pleural effusion, status post left-sided thoracentesis on 04/30/2022 21. History of urinary retention possibly secondary to constipation Plan: 1. Continue aspirin, statin, and beta siomara. Discontinue Eliquis as his hemoglobin was 6.6 yesterday and was transfused for 1 unit of packed red blood cells. 2. Continue Lasix, changed to 40 mg by mouth daily by cardiology today. 3. Wean O2 as tolerated. Encouraged incentive spirometry is 10 times every hour while awake. Bronchodilators per pulmonology. 4. Zosyn discontinue yesterday by infectious disease recommendations. Infectious disease will continue to follow clinically. 5. Increase activity, ambulate as tolerated. PT/OT/cardiac rehab following. 6. GI/DVT prophylaxis. 7. Insulin management per internal medicine, patient needs tight blood sugar control to prevent further infection and promote healing 8. Pain control with current medication regimen. 9. Strict accurate intake and output, daily weights. 10. Patient must shower daily, remove decubitus dressing and clean decubitus in the shower, reapply dressing. 11. Continue sternal precautions, no lifting/pulling/pushing anything heavier than 10 pounds for a full 12 weeks post surgery. 12. Consult gastroenterology Dr. Ramos as the patient's hemoglobin was 6.6 yesterday and was transfused 1 unit of packed red blood cells.possible EGD on 05/28/2022. 13. CT of the chest without contrast today, evaluate pleural effusions. 14. More recommendations to follow based on patient's clinical course. Time with Patient: Greater than 30
--- NOTE | 2022-05-25 10:19 | CT ---
EXAMINATION TYPE: CT chest wo con DATE OF EXAM: 05/25/2022 COMPARISON: None HISTORY: Shortness of breath. CT DLP: 450.[address] of the chest was performed with lung and mediastinal window settings submitted. The la ck of contrast limits evaluation of the vascular, mediastinal and parenchymal structures including th e upper abdomen. LUNGS: Moderate left-sided pleural effusion with small right-sided pleural effusion. Basilar compress jimmy atelectasis. Pleural calcifications noted. There is pulmonary venous congestion with scattered al veolar and interstitial infiltrates. The findings are nonspecific and could reflect congestive failur e although superimposed pneumonia is not excluded. Correlate clinically. MEDIASTINUM/GAVIN: Thoracic aorta is of normal caliber with limited evaluation given lack of contrast . The heart is enlarged. No evidence for mediastinal mass. No lymph nodes greater than 1cm. UPPER ABDOMEN: No significant abnormality is seen. OTHER: No significant other abnormality. IMPRESSION: 1. The findings are nonspecific and could reflect congestive failure although superimposed pneumonia is not excluded. Correlate clinically.
[2022-05-25 12:38] LABS: Glucose,Whole Blood 201 mg/dL (70-110)
[2022-05-25] MEDS: ASPIRIN 81 MG PO SCH (13:08)
[2022-05-25] MEDS: ASCORBIC ACID 500 MG TAB PO SCH (13:08)
[2022-05-25 13:54] VITALS: BMI 28.3
--- NOTE | 2022-05-25 14:51 | P.PN ---
Subjective Progress Note Date: 05/25/22 Principal diagnosis: stage III sacral pressure ulcer patient is a 72-year-old male recently did have a coronary bypass grafting tomorrow hospital stay developing sacral pressure ulcer status post surgical debridement with a readmission to the hospital for increasing shortness of breath currently being managed by cardiology services, patient did have a nonhealing wound to the sacral area that has prompted this infection disease consultation. On today's evaluation that is 05/25/2022, the patient denies having any fever or any chills he is breathing slightly ccomfortably on a 2 L nasal cannula oxygen, the patient denies having any chest pain or cough no nausea no vomiting no abdominal pain or pain to the sacral wound area Objective - Vital Signs Vital signs: Vital Signs Temp 98.3 F 05/25/22 07:19 Pulse 80 05/25/22 11:02 Resp 16 05/25/22 07:19 BP 119/55 05/25/22 07:19 Pulse Ox 94 L 05/25/22 07:30 FiO2 Intake & Output 05/24/22 05/25/22 05/25/22 18:59 06:59 18:59 Intake Total 2679 240 Output Total 500 1101 500 Balance 2179 -1101 -260 Weight 87 kg Intake: Oral 2369 240 Blood Product 310 Rc As-1 Unit 310 [id number] Output: Urine 500 1100 500 Stool 1 Other: Voiding Method Urinal # Voids 1 1 1 # Bowel Movements 1 1 - Exam GENERAL DESCRIPTION: An elderly male up in bed in no distress RESPIRATORY SYSTEM: Unlabored breathing , decreased breath sounds at bases HEART: S1 S2 regular rate and rhythm , ABDOMEN: Soft , no tenderness EXTREMITIES: 2+ edema feet - Labs CBC & Chem 7: 05/25/22 06:37 05/25/22 06:32 Labs: Abnormal Lab Results - Last 24 Hours (Table) 05/24/22 05/24/22 05/24/22 Range/Units 12:35 17:41 20:31 RBC (4.30-5.90) m/uL Hgb (13.0-17.5) gm/dL Hct (39.0-53.0) % MCHC (31.0-37.0) g/dL RDW (11.5-15.5) % Carbon Dioxide (22-30) mmol/L Glucose (74-99) mg/dL POC Glucose (mg/dL) 148 H 213 H (70-110) mg/dL Calcium (8.4-10.2) mg/dL Crossmatch See Detail 05/25/22 05/25/22 05/25/22 Range/Units 05:57 06:32 06:37 RBC 2.56 L (4.30-5.90) m/uL Hgb 7.5 L (13.0-17.5) gm/dL Hct 24.8 L (39.0-53.0) % MCHC 30.1 L (31.0-37.0) g/dL RDW 16.5 H (11.5-15.5) % Carbon Dioxide 33 H (22-30) mmol/L Glucose 132 H (74-99) mg/dL POC Glucose (mg/dL) 157 H (70-110) mg/dL Calcium 8.1 L (8.4-10.2) mg/dL Crossmatch 05/25/22 Range/Units 12:37 RBC (4.30-5.90) m/uL Hgb (13.0-17.5) gm/dL Hct (39.0-53.0) % MCHC (31.0-37.0) g/dL RDW (11.5-15.5) % Carbon Dioxide (22-30) mmol/L Glucose (74-99) mg/dL POC Glucose (mg/dL) 201 H (70-110) mg/dL Calcium (8.4-10.2) mg/dL Crossmatch Microbiology - Last 24 Hours (Table) 05/19/22 16:13 Blood Culture - Preliminary Blood No Growth after 120 hours 05/19/22 16:20 Blood Culture - Preliminary Blood No Growth after 120 hours Assessment and Plan (1) Stage III pressure ulcer of sacral region Current Visit: Yes Status: Acute Code(s): L89.153 - PRESSURE ULCER OF SACRAL REGION, STAGE 3 SNOMED Code(s): 74540689622639 Plan: 1patient with a stage III sacral pressure ulcer acquired after the patient did undergo CABG surgery in this patient who is status post surgical debridement on his last admission wound base currently with minimal slough tissue however no significant surrounding swelling redness or any foul-smelling drainage patient not running any fever and white count is normal 2local wound care to continue with the Santyl however the patient will benefit from wound VAC 3-patient is currently afebrile white count is normal we'll monitor the patient closely off antibiotic therapy Time with Patient: Less than 30
--- NOTE | 2022-05-25 16:19 | P.PN ---
Subjective Progress Note Date: 05/25/22 72-year-old male had a recent with coronary artery disease and CABG 3 and a close the PFO on 19 of April came in with compensative shortness of breath on weaning can start failure patient has EF of around the 40 with 50%. Patient has bilateral lower sweaty edema. was having orthopnea paroxysmal nocturnal dyspnea does have a pulmonary edema on the chest x-ray patient was started on IV Lasix BNP is around 10,000. 05/21/2022 Patient is seen and evaluated this morning currently sitting up in chair with at bedside. Patient is maintained on breathing treatments along with IV Lasix and currently maintaining saturations above 90% on room air. Patient's lower extremities elevated slightly in continued on compression stockings. CT surgery following recommending continued IV diuresis and discharge planning process for [facility]. Patient continues with significant weakness and will need ECF upon discharge. Lung sounds were with crackles noted and will continue IV Lasix and follow-up repeat labs. Patient continues with chest wall pain and heart hugger is noted. Incentive spirometer at the bedside and encourage the patient to continue using at least 10 times every hour while awake. Patient is afebrile denies worsening shortness of breath. Encourage the patient to continu e elevating lower extremities while at rest. Will have PT/OT evaluate the patient 05/22/2022 Patient is seen in follow-up this morning lying in bed appears dyspneic at rest continued on 2 L via nasal cannula. Chest x-ray shows CHF and is maintained on IV Lasix with CT surgery cardiology following. Patient also appears significantly pale will follow-up with a.m. labs. Most recent hemoglobin was 7.4. Patient continues to be dyspneic with minimal exertion and during conversation and appears generally ill. Patient extremely weak will be returning to rehab once more stable. Recommend follow-up labs in the a.m. Patient is currently afebrile denies chest pain or palpitations. Patient con tinues to report shortness of breath. Oral intake is fair and need encouragement. Recommend to monitor blood sugars before meals and at bedtime and will use sliding scale as needed. 05/23/2022 Patient is seen and evaluated in follow-up currently sitting up in the chair reporting has resting dyspnea has improved although feels he has no reserve. Patient is maintained on 2 L via nasal cannula maintaining oxygen saturations above 90%. Patient is up and walking to the bathroom continues with weakness although feels somewhat improved each day. Patient continues with lower extremity edema with compression stockings and is improving slowly with cardiology and CT surgery following recommending to continue on IV diuresis. Patient also continues on IV Zosyn during his past prolonged hospitalization post debridement of a decubitus ulcer with no cultures obtained and ID was following at that time recommending a minimum of 2 weeks of Zosyn. Patient has the flu as well on this admission. Recommend work with physical therapy daily. Patient was also continued on DuoNeb treatments and will continue. 05/24/2022 Patient seen and evaluated in follow-up today with multiple medical consultat ions following including CT surgery and cardiology. Wound care consultation along with infectious disease being placed as patient was maintained on Zosyn sacral decubitus ulcer and has received more than 2 week course monitor off antibiotics. Care and offloading and frequent position changes to the sacral area. Possible wound VAC. Encouraged to increase activity as tolerated. CT surgery following an cardiology recommending decreasing the IV Lasix dose and recommend close monitoring of labs. Patient's hemoglobin 6.6 today and will transfuse 1 unit of PRBC recommend follow-up labs in a.m. Encouraged increase activity as tolerated and encourage oral intake. Recommend to continue using i ncentive spirometer at least 10 times every hour while awake. 05/25/2022 Patient is seen and evaluated in follow-up this morning with multiple medical consultations following. CT surgery and cardiology following and maintained on IV Lasix twice daily and will continue as patient continues to be in volume overload. Patient also seen and evaluated by infectious disease and will continue with wound care with possible wound VAC placement. GI consulted as patient continues to have anemia and will plan for possible endoscopic intervention this Saturday and recommend to continue to monitor hemoglobin and hold anticoagulation and will transfuse is less than 7. Patient did receive a unit of PRBCs yesterday with hemoglobin of 7.5 today. BMP reviewed and within normal limits. Blood sugars that are controlled and will continue current regimen. Patient is maintained on 2 L via nasal cannula and encourage incentive spirometer use and increased activity as tolerated. Patient with significant stage III decubital ulcer recommending wound care as well as an offloading as much as possible. Review of systems: Constitutional: No reports of fatigue, no fever, or chills, anxious at times due to shortness of breath Cardiovascular: No reports of chest pain or palpitations, reports chest wall p ain with movement and coughing Respiratory: No reports of worsening shortness of breath, reports continued shortness of breath with minimal movement and did have a rough night with his breathing GI: No reports of nausea, vomiting, or diarrhea, reports eating a little better : No reports of dysuria or retention Neurovascular: reports of generalized weakness and reports improvement in lower extremity edema, reports sacral pain Active Medications Acetaminophen (Acetaminophen Tab 325 Mg Tab) 650 mg PO Q6HR PRN PRN Reason: Fever and/ or Mild Pain Last Admin: 05/21/22 06:48 Dose: 650 mg Hydrocodone Bitart/Acetaminophen (Hydrocodone/Apap 5-325mg 1 Each Tab) 1 each PO Q6HR PRN PRN Reason: Moderate Pain (Scale 4 to 6) Last Admin: 05/24/22 06:04 Dose: 1 each Albuterol/Ipratropium (Ipratropium-Albuterol 3 Ml Neb) 3 ml INHALATION RT-QID [facility] Last Admin: 05/25/22 15:27 Dose: 3 ml Albuterol/Ipratropium (Ipratropium-Albuterol 3 Ml Neb) 3 ml INHALATION RT-Q2H PRN PRN Reason: Shortness Of Breath Or Wheezing Last Admin: 05/25/22 04:35 Dose: 3 ml Ascorbic Acid (Ascorbic Acid 500 Mg Tab) 500 mg PO DAILY@1200 [facility] Last Admin: 05/25/22 13:08 Dose: 500 mg Aspirin (Aspirin 81 Mg) 81 mg PO DAILY@1200 [facility] Last Admin: 05/25/22 13:08 Dose: 81 mg Atorvastatin Calcium (Atorvastatin 40 Mg Tab) 40 mg PO DAILY@1700 [facility] Last Admin: 05/24/22 18:23 Dose: 40 mg Benzocaine/Menthol (Benzocaine/Menthol Lozeng 1 Each Lozenge) 1 each MUCOUS MEM Q2HR PRN PRN Reason: Sore Throat Bisacodyl (Bisacodyl 10 Mg Supp) 10 mg RECTAL DAILY PRN PRN Reason: Constipation Budesonide/Formoterol Fumarate (Symbicort 80-4.5 Mcg Inhaler) 2 puff INHALATION RT-BID [facility] Last Admin: 05/25/22 07:29 Dose: 2 puff Collagenase (Collagenase 250 Unit/Gm Ointment 30 Gm Tube) 1 applic TOPICAL DAILY PRN; Protocol PRN Reason: Wound Healing Collagenase (Collagenase 250 Unit/Gm Ointment 30 Gm Tube) 1 applic TOPICAL DAILY [facility]; Protocol Last Admin: 05/25/22 08:48 Dose: 1 applic Dapagliflozin (Dapagliflozin Propanediol 10 Mg Tablet) 10 mg PO DAILY [facility] Last Admin: 05/25/22 08:46 Dose: 10 mg Dextrose/Water (Dextrose 50% Syringe 50 Ml) 25 ml IVP PER PROTOCOL PRN; Protocol PRN Reason: Hypoglycemia Dextrose/Water (Dextrose 50% Syringe 50 Ml) 50 ml IVP PER PROTOCOL PRN; Protocol PRN Reason: Hypoglycemia Ferrous Sulfate (Ferrous Sulfate 325 Mg Tab) 325 mg PO BID@0800,1700 [facility] Last Admin: 05/25/22 08:47 Dose: 325 mg Furosemide (Furosemide 10 Mg/Ml 4 Ml Vial) 40 mg IV BID@0900,1600 [facility] Guaifenesin/Dextromethorphan (Guaifenesin-Dm 600/30mg 1 Each Tab.Er.12h) 1 each PO Q12HR PRN PRN Reason: Cough Last Admin: 05/24/22 06:04 Dose: 1 each Insulin Aspart (Insulin Aspart (Novolog) 100 Unit/Ml Vial) 0 unit SQ ACHS [facility]; Protocol Last Admin: 05/25/22 13:08 Dose: 4 unit Insulin Detemir (Insulin Detemir (Levemir) 100 Unit/Ml Syr) 10 unit SQ MAYELIN LY@0700 [facility] Last Admin: 05/25/22 08:46 Dose: 10 unit Lidocaine (Lidocaine 5% Patch) 2 patch TOPICAL DAILY@0800 [facility]; Protocol Last Admin: 05/25/22 08:48 Dose: Not Given Magnesium Hydroxide (Magnesium Hydroxide 2,400 Mg/10 Ml Cup) 2,400 mg PO DAILY PRN PRN Reason: Constipation Metoprolol Tartrate (Metoprolol Tartrate 25 Mg Tab) 25 mg PO BID@0800,1700 [facility] Last Admin: 05/25/22 08:46 Dose: 25 mg Multivitamins/Minerals (Vit A,C & M-Xxexjm-Izzwidez 1 Each Tab) 2 each PO DAILY@1500 [facility] Last Admin: 05/24/22 18:23 Dose: 2 each Pantoprazole Sodium (Pantoprazole 40 Mg Tablet) 40 mg PO BID@0800,1700 [facility] Last Admin: 05/25/22 08:46 Dose: 40 mg Senna/Docusate Sodium (Sennosides-Docusate Sodium 1 Each Tab) 2 each PO HS PRN PRN Reason: Constipation Sodium Biphosphate/Sodium Phosphate (Na Phos,M-B/Na Phos,Di-Ba 133 Ml Enema) 133 ml RECTAL DAILY PRN PRN Reason: Constipation Sodium Chloride (Sodium Chloride 0.9% Flush 10 Ml Syringe) 10 ml IV BID [facility] Last Admin: 05/25/22 08:48 Dose: 10 ml Tamsulosin HCl (Tamsulosin 0.4 Mg Cap.Er.24h) 0.4 mg PO DAILY@0800 [facility] Last Admin: 05/25/22 08:47 Dose: 0.4 mg PHYSICAL EXAMINATION: GENERAL: The patient is alert and oriented x3, less dyspneic with conversation, ill-appearing Well developed, well nourished. HEENT: Pupils are round and equally reacting to light. EOMI. No scleral icterus. No conjunctival pallor. Normocephalic, atraumatic. No pharyngeal erythema. No thyromegaly. CARDIOVASCULAR: S1 and S2 muffled PULMONARY: bilateral lower lobe crackles noted with some improvement. Diminished breath sounds bilaterally ABDOMEN: Soft, nontender, nondistended, normoactive bowel sounds. No palpable organomegaly. MUSCULOSKELETAL: No joint swelling or deformity. EXTREMITIES: No cyanosis, clubbing, bilateral lower extremity edema noted with compression stockings NEUROLOGICAL: Gross neurological examination did not reveal any focal deficits. Diffusely weak SKIN: No rashes. 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 -DVT prophylaxis: Patient is on eliquis for atrial fibrillation Plan: Recommend to continue current medications and continue with IV Lasix diuresis with follow-up labs Recommend to monitor hemoglobin closely and transfuse if less than 7. Patient did receive a unit of PRBCs with a hemoglobin of 7.5 today Wound care recommendations along with infectious disease following sacral decubitus ulcer pain of the area and appreciate input and recommendations consultations Patient seen and evaluated by CT surgery recommending continuing IV diuresis and return to ECF for continued therapy PT/OT to work with the patient and recommend working with daily as patient continues with weakness Recommend continue with breathing treatments and other home medications Patient being closely monitored off antibiotics and has completed the course of IV Zosyn Wound care recommending local wound care with absorbent silver and a wound VAC will discuss case management Case management following working on discharge planning once patient is stable to ECF Encouraged to increase activity as tolerated and continued incentive spirometer use Encourage the patient elevating lower extremities while at rest GI will likely undergo endoscopic intervention on Saturday with EGD and patient is willing to proceed Due to multiple complex medical issues, Prognosis is guarded The impression and plan of care has been dictated by Angeles Meehan, Nurse Practitioner as directed. Dr. Patrick MD I have performed a history and examination and MDM of this patient, discussed the same with the dictator, and agree with the dictator's assessment and plan as written ,documented as a scribe. Based on total visit time, I have performed more than 50% of the visit. Objective - Vital Signs Vital signs: Vital Signs Temp 98.3 F 05/25/22 07:19 Pulse 72 05/25/22 15:38 Resp 16 05/25/22 07:19 BP 119/55 05/25/22 07:19 Pulse Ox 94 L 05/25/22 07:30 FiO2 Intake & Output 05/24/22 05/25/22 05/25/22 18:59 06:59 18:59 Intake Total 2679 480 Output Total 500 1101 500 Balance 2179 -1101 -20 Weight 87 kg 87 kg Intake: Oral 2369 480 Blood Product 310 Rc As-1 Unit 310 [id number] Output: Urine 500 1100 500 Stool 1 Other: Voiding Method Urinal # Voids 1 1 1 # Bowel Movements 1 1 - Labs CBC & Chem 7: 05/25/22 06:37 05/25/22 06:32 Labs: Abnormal Lab Results - Last 24 Hours (Table) 05/24/22 05/24/22 05/24/22 Range/Units 12:35 17:41 20:31 RBC (4.30-5.90) m/uL Hgb (13.0-17.5) gm/dL Hct (39.0-53.0) % MCHC (31.0-37.0) g/dL RDW (11.5-15.5) % Carbon Dioxide (22-30) mmol/L Glucose (74-99) mg/dL POC Glucose (mg/dL) 148 H 213 H (70-110) mg/dL Calcium (8.4-10.2) mg/dL Crossmatch See Detail 05/25/22 05/25/22 05/25/22 Range/Units 05:57 06:32 06:37 RBC 2.56 L (4.30-5.90) m/uL Hgb 7.5 L (13.0-17.5) gm/dL Hct 24.8 L (39.0-53.0) % MCHC 30.1 L (31.0-37.0) g/dL RDW 16.5 H (11.5-15.5) % Carbon Dioxide 33 H (22-30) mmol/L Glucose 132 H (74-99) mg/dL POC Glucose (mg/dL) 157 H (70-110) mg/dL Calcium 8.1 L (8.4-10.2) mg/dL Crossmatch 05/25/22 Range/Units 12:37 RBC (4.30-5.90) m/uL Hgb (13.0-17.5) gm/dL Hct (39.0-53.0) % MCHC (31.0-37.0) g/dL RDW (11.5-15.5) % Carbon Dioxide (22-30) mmol/L Glucose (74-99) mg/dL POC Glucose (mg/dL) 201 H (70-110) mg/dL Calcium (8.4-10.2) mg/dL Crossmatch Microbiology - Last 24 Hours (Table) 05/19/22 16:13 Blood Culture - Preliminary Blood No Growth after 120 hours 05/19/22 16:20 Blood Culture - Preliminary Blood No Growth after 120 hours
[2022-05-25] MEDS: VIT A,C & E-LUTEIN-MINERALS 1 EACH TAB PO SCH (16:52)
[2022-05-25] MEDS: ATORVASTATIN 40 MG TAB PO SCH (16:53)
[2022-05-25] MEDS: FUROSEMIDE 10 MG/ML 4 ML VIAL IV SCH (16:53)
[2022-05-25 17:45] LABS: Glucose,Whole Blood 178 mg/dL (70-110)
[2022-05-25 20:43] LABS: Glucose,Whole Blood 216 mg/dL (70-110)
[2022-05-25] MEDS: HYDROcodone/APAP 5-325MG 1 EACH TAB PO PRN (21:43)
[2022-05-26 05:52] LABS: Glucose,Whole Blood 143 mg/dL (70-110)
[2022-05-26] MEDS: IPRATROPIUM-ALBUTEROL 3 ML NEB INHALATION SCH ×4 (05:54→20:33)
[2022-05-26] MEDS: SYMBICORT 80-4.5 MCG INHALER INHALATION SCH ×2 (05:55→20:33)
[2022-05-26] MEDS: INSULIN ASPART (NovoLOG) 100 UNIT/ML VIAL SQ SCH ×4 (06:02→20:55)
[2022-05-26] MEDS: INSULIN DETEMIR (LEVEMIR) 100 UNIT/ML SYR SQ SCH (06:03)
[2022-05-26] MEDS: HYDROcodone/APAP 5-325MG 1 EACH TAB PO PRN ×2 (06:31→15:24)
--- NOTE | 2022-05-26 06:33 | XR ---
EXAMINATION TYPE: XR chest 1V portable DATE OF EXAM: 05/26/2022 CLINICAL HISTORY: Postoperative cardiac surgery. TECHNIQUE: Single AP portable frontal view of the chest is obtained. COMPARISON: Chest x-ray and CT chest from one day earlier FINDINGS: Overlying sternal wires are redemonstrated. Persistent cardiomegaly. Persistent small bila teral pleural fluid collections with more prominent right lateral component. Persistent patchy right mid to lower lung acute infiltrate and/or atelectasis. Metallic anchors from prior rotator cuff surge ry in the bilateral humeral heads are noted. IMPRESSION: Cardiomegaly with small bilateral pleural effusions and mild interstitial edema all redem onstrated consistent with CHF exacerbation. There is right mid to lower lung acute infiltrate and ate lectasis redemonstrated. No significant change from one day earlier.
--- NOTE | 2022-05-26 08:37 | P.PN ---
Subjective Progress Note Date: 05/26/22 Principal diagnosis: Acute on chronic systolic heart failure, Influenza A PCR positive on admission. Past medical history significant for severe mitral valve regurgitation, status post mitral valve repair 04/19/22, coronary artery disease, previous PCI, previous non-STEMI, status post CABG 3 04/19/22, paroxysmal atrial fibrillation, previous cardioversion, on Eliquis outpatient for anticoagulation, status post modified Castanon maze and ligation of left atrial appendage, patent foramen ovale, status post closure, chronic systolic congestive heart failure, ischemic cardiomyopathy with EF 40-45%, hypertension, hyperlipidemia, right internal carotid stenosis 50-79%, chronic blood loss anemia with history of GI bleed in November 2021 S/P transfusion PRBCs, 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 The patient was seen and examined today 05/26/2022 at his bedside on the sixth floor cardiac observation unit. He is sitting up to bedside edge, is awake, alert, oriented 3 and is in no acute distress. Denies any complaints of shortness of breath at this time and reports his pain is well controlled with his current pain medication regimen. He's been up ambulating in his room independently. Oxygen saturation are 93-94% on room air and he is achieving 5705-4425 mL on his incentive spirometry with encouragement. He continues on Lasix 40 mg IV twice a day for diuretics. He is being followed by infectious disease for wound care management. He's been afebrile in the last 24 hours and his antibiotics have been discontinued by infectious disease. Laboratory results morning remain pending. Chest x-ray was reviewed. Eliquis was discontinued yesterday as his hemoglobin was 6.6 on 05/24/2022 which he did receive 1 unit of packed red blood cells. Hemoglobin yesterday 05/25/2022 was 7.5. If his hemoglobin continues to trend down he will undergo an EGD on 05/28/[address] Lisa Ramos. Objective - Vital Signs Vital signs: Vital Signs Temp 97.6 F 05/26/22 03:20 Pulse 88 05/26/22 06:02 Resp 21 05/26/22 03:20 BP 108/54 05/26/22 03:20 Pulse Ox 96 05/26/22 08:19 FiO2 Intake & Output 05/25/22 05/26/22 05/26/22 18:59 06:59 18:59 Intake Total 720 Output Total 500 1346 Balance 220 -1346 Weight 87 kg 83.5 kg Intake: Oral 720 Output: Urine 500 1345 Stool 1 Other: Voiding Method Urinal # Voids 2 0 # Bowel Movements 1 1 - Exam CONSTITUTIONAL: Appears comfortable, cooperative, no acute distress. RESPIRATORY: Lungs sounds essentially diminished bilaterally throughout. Respirations are symmetrical, nonlabored. Currently on room air with oxygen saturation 92%. Able to achieve 2123-7030 mL on incentive spirometry. Strong cough. CARDIOVASCULAR: S1, S2 present, negative for S3 or gallop. Soft systolic murmur heard best to his left sternal border. Regular rate and rhythm, sinus rhythm on telemetry. Sternum stable. Palpable peripheral pulses bilaterally. Trace lower extremity pitting edema present. No calf pain or tenderness noted. Heart hugger in place with patient demonstrating appropriate use. Antiembolism stockings present. GASTROINTESTINAL: Abdomen soft, nontender, nondistended. Active bowel sounds present 4 quadrants. Tolerating diet. Bowel movement 05/24/22. GENITOURINARY: Continues to void clear, yellow urine. Urine output 720 mL in the last 8 hours. INTEGUMENTARY: Skin is warm and dry. Midline sternal incision well approximated without redness or drainage. Bilateral lower extremity EVH sites well approximated without redness or drainage. Stage III decubitus ulcer present to sacrum, covered with foam dressing. NEUROLOGIC: Cranial nerves II through XII intact. No focal deficits. MUSKULOSKELETAL: Able to move all extremities, strength equal bilaterally, gait normal. PSYCHIATRIC: Alert and oriented to person place and time, appropriate affect, intact judgment and insight. - Allied health notes Allied health notes reviewed: nursing - Labs CBC & Chem 7: 05/25/22 06:37 05/25/22 06:32 Labs: Abnormal Lab Results - Last 24 Hours (Table) 05/25/22 05/25/22 05/25/22 Range/Units 12:37 17:44 20:41 POC Glucose (mg/dL) 201 H 178 H 216 H (70-110) mg/dL 05/26/22 Range/Units 05:50 POC Glucose (mg/dL) 143 H (70-110) mg/dL Microbiology - Last 24 Hours (Table) 05/19/22 16:13 Blood Culture - Final Blood No Growth after 144 hours 05/19/22 16:20 Blood Culture - Final Blood No Growth after 144 hours - Imaging and Cardiology Chest x-ray: report reviewed, image reviewed Assessment and Plan Assessment: 1. Acute on chronic systolic heart failure 2. Influenza A PCR positive on admission 3. Shortness of breath, hypoxia secondary to above 4. History of Severe mitral valve regurgitation, status post mitral valve repair 04/19/22 5. Coronary artery disease, previous PCI, previous non-STEMI, status post CABG 3 04/19/22 6. History of paroxysmal atrial fibrillation, previous cardioversion, on Keena bandar outpatient for anticoagulation, status post modified Castanon maze and ligation of left atrial appendage 7. Patent foramen ovale, status post closure 8. Chronic systolic congestive heart failure, ischemic cardiomyopathy with EF 40-45% 9. History of hypertension 10. History hyperlipidemia, treated, cholesterol 150, LDL 72 11. Right internal carotid stenosis 50-79% 12. 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 Chronic renal failure, baseline creatinine 1.28-1.6 14. Diabetes mellitus type 2, preoperative hemoglobin A1c 5.6% 15. Osteoarthritis, chronic low back pain 16. Severe COPD, preoperative FEV1 41% of predicted 17. Previous nicotine dependence 18. Sacral stage II ulcer status post debridement 19. Medical debility, generalized weakness 20. History of small left-sided pleural effusion, status post left-sided thoracentesis on 04/30/2022 21. History of urinary retention possibly secondary to constipation Plan: 1. Continue low-dose aspirin, statin, and beta siomara. Continue to hold Eliquis. 2. Continue Lasix 40 mg IV twice a day. 3. Encouraged incentive spirometry is 10 times every hour while awake. Bronchodilators per pulmonology. 4. Zosyn discontinue 05/24/22 by infectious disease recommendations. Infectious disease will continue to follow clinically. 5. Increase activity, ambulate as tolerated. PT/OT/cardiac rehab following. 6. GI/DVT prophylaxis. 7. Insulin management per internal medicine, patient needs tight blood sugar control to prevent further infection and promote healing 8. Pain control with current medication regimen. 9. Strict accurate intake and output, daily weights. 10. Patient must shower daily, remove decubitus dressing and clean decubitus in the shower, reapply dressing. 11. Continue sternal precautions, no lifting/pulling/pushing anything heavier than 10 pounds for a full 12 weeks [address] surgery[address] 12. Dr. Ramos consult noted and appreciated, possible EGD on 05/28/2022. 13. More recommendations to follow based on patient's clinical course. Time with Patient: Greater than 30
[2022-05-26] MEDS: LIDOCAINE 5% PATCH TOPICAL SCH (08:44)
[2022-05-26] MEDS: FERROUS SULFATE 325 MG TAB PO SCH ×2 (08:45→17:29)
[2022-05-26] MEDS: COLLAGENASE 250 UNIT/GM OINTMENT 30 GM TUBE TOPICAL SCH (08:45)
[2022-05-26] MEDS: TAMSULOSIN 0.4 MG CAP.ER.24H PO SCH (08:45)
[2022-05-26] MEDS: PANTOPRAZOLE 40 MG TABLET PO SCH ×2 (08:45→17:29)
[2022-05-26] MEDS: DAPAGLIFLOZIN PROPANEDIOL 10 MG TABLET PO SCH (08:45)
[2022-05-26] MEDS: METOPROLOL TARTRATE 25 MG TAB PO SCH ×2 (08:45→17:29)
[2022-05-26] MEDS: FUROSEMIDE 10 MG/ML 4 ML VIAL IV SCH ×2 (08:46→17:29)
[2022-05-26 11:10] LABS: Basophils # (A) 0.09 X 10*3/uL (0.00-0.10); Eosinophils # (A) 0.39 X 10*3/uL (0.04-0.35); Eosinophils % (A) 4.4 %; HCT 22.3 % (39.6-50.0); Immature Grans, Automated 1.7 %; Lymphocytes # (A) 0.69 X 10*3/uL (0.90-5.00); Lymphocytes % (A) 7.8 %; MCH 29.3 pg (27.0-32.0); MCV 97.4 fL (80.0-97.0); Mean Platelet Volume 10.3 fL (9.5-12.2); Monocytes # (A) 1.02 X 10*3/uL (0.20-1.00); Monocytes % (A) 11.6 %; NRBC Per 100 WBC 0 /100 WBCS (0.0-0.0); Neutrophils # (A) 6.47 X 10*3/uL (1.80-7.70); Neutrophils % (A) 73.5 %; Platelet Count 302 X 10*3/uL (140-440); RBC 2.29 X 10*6/uL (4.40-5.60); RDW 17.4 % (11.5-14.5); WBC 8.81 X 10*3/uL (4.50-10.00)
[2022-05-26 11:46] LABS: African American GFR (CKD) 97.9 (60.0-200.0); Anion Gap 8.5 mmol/L (10.00-18.00); BUN/Creat Ratio 20.78 Ratio (12.00-20.00); Blood Urea Nitrogen 18.7 mg/dL (9.0-27.0); Calcium 8.7 mg/dL (8.7-10.3); Carbon Dioxide 31.5 mmol/L (20.0-27.5); Non-African American GFR(CKD) 84.4 (60.0-200.0); Potassium 4.5 mmol/L (3.5-5.5)
[2022-05-26] MEDS: ASPIRIN 81 MG PO SCH (11:57)
[2022-05-26] MEDS: ASCORBIC ACID 500 MG TAB PO SCH (11:57)
[2022-05-26 11:59] LABS: Glucose,Whole Blood 201 mg/dL (70-110)
--- NOTE | 2022-05-26 14:22 | P.PN ---
Subjective Progress Note Date: 05/26/22 Principal diagnosis: stage III sacral pressure ulcer patient is a 72-year-old male recently did have a coronary bypass grafting tomorrow hospital stay developing sacral pressure ulcer status post surgical debridement with a readmission to the hospital for increasing shortness of breath currently being managed by cardiology services, patient did have a nonhealing wound to the sacral area that has prompted this infection disease consultation. On today's evaluation that is 05/26/2022, the patient remains to be afebrile, the patient is breathing slightly comfortably on a 2 L nasal cannula oxygen, the patient denies having any chest pain or cough, the patient denies nausea no vomiting no abdominal pain or pain to the sacral wound area Objective - Vital Signs Vital signs: Vital Signs Temp 98.1 F 05/26/22 08:00 Pulse 94 05/26/22 12:08 Resp 19 05/26/22 08:00 BP 101/56 05/26/22 08:00 Pulse Ox 96 05/26/22 08:19 FiO2 Intake & Output 05/25/22 05/26/22 05/26/22 18:59 06:59 18:59 Intake Total 720 Output Total 500 1346 1 Balance 220 -1346 -1 Weight 87 kg 83.5 kg Intake: Oral 720 Output: Urine 500 1345 Stool 1 1 Other: Voiding Method Urinal Urinal # Voids 2 1 1 # Bowel Movements 1 1 1 - Exam GENERAL DESCRIPTION: An elderly male up in bed in no distress RESPIRATORY SYSTEM: Unlabored breathing , decreased breath sounds at bases HEART: S1 S2 regular rate and rhythm , ABDOMEN: Soft , no tenderness EXTREMITIES: 2+ edema feet - Labs CBC & Chem 7: 05/26/22 06:14 05/26/22 06:14 Labs: Abnormal Lab Results - Last 24 Hours (Table) 05/24/22 05/25/22 05/25/22 Range/Units 12:35 17:44 20:41 RBC (4.40-5.60) X 10*6/uL Hgb (13.0-17.0) g/dL Hct (39.6-50.0) % MCV (80.0-97.0) fL MCHC (32.0-37.0) g/dL RDW (11.5-14.5) % Immature Gran # (0.00-0.04) X 10*3/uL Lymphocytes # (0.90-5.00) X 10*3/uL Monocytes # (0.20-1.00) X 10*3/uL Eosinophils # (0.04-0.35) X 10*3/uL Carbon Dioxide (20.0-27.5) mmol/L Anion Gap (10.00-18.00) mmol/L BUN/Creatinine Ratio (12.00-20.00) Ratio Glucose (70-110) mg/dL POC Glucose (mg/dL) 178 H 216 H (70-110) mg/dL Crossmatch See Detail 05/26/22 05/26/22 05/26/22 Range/Units 05:50 06:14 06:14 RBC 2.29 L (4.40-5.60) X 10*6/uL Hgb 6.7 L* (13.0-17.0) g/dL Hct 22.3 L (39.6-50.0) % MCV 97.4 H (80.0-97.0) fL MCHC 30.0 L (32.0-37.0) g/dL RDW 17.4 H (11.5-14.5) % Immature Gran # 0.15 H (0.00-0.04) X 10*3/uL Lymphocytes # 0.69 L (0.90-5.00) X 10*3/uL Monocytes # 1.02 H (0.20-1.00) X 10*3/uL Eosinophils # 0.39 H (0.04-0.35) X 10*3/uL Carbon Dioxide 31.5 H (20.0-27.5) mmol/L Anion Gap 8.50 L (10.00-18.00) mmol/L BUN/Creatinine Ratio 20.78 H (12.00-20.00) Ratio Glucose 137 H (70-110) mg/dL POC Glucose (mg/dL) 143 H (70-110) mg/dL Crossmatch 05/26/22 Range/Units 11:57 RBC (4.40-5.60) X 10*6/uL Hgb (13.0-17.0) g/dL Hct (39.6-50.0) % MCV (80.0-97.0) fL MCHC (32.0-37.0) g/dL RDW (11.5-14.5) % Immature Gran # (0.00-0.04) X 10*3/uL Lymphocytes # (0.90-5.00) X 10*3/uL Monocytes # (0.20-1.00) X 10*3/uL Eosinophils # (0.04-0.35) X 10*3/uL Carbon Dioxide (20.0-27.5) mmol/L Anion Gap (10.00-18.00) mmol/L BUN/Creatinine Ratio (12.00-20.00) Ratio Glucose (70-110) mg/dL POC Glucose (mg/dL) 201 H (70-110) mg/dL Crossmatch Microbiology - Last 24 Hours (Table) 05/19/22 16:13 Blood Culture - Final Blood No Growth after 144 hours 05/19/22 16:20 Blood Culture - Final Blood No Growth after 144 hours Assessment and Plan (1) Stage III pressure ulcer of sacral region Current Visit: Yes Status: Acute Code(s): L89.153 - PRESSURE ULCER OF SACRAL REGION, STAGE 3 SNOMED Code(s): 26133774626084 Plan: 1patient with a stage III sacral pressure ulcer acquired after the patient did undergo CABG surgery in this patient who is status post surgical debridement on his last admission wound base currently with minimal slough tissue however no significant surrounding swelling redness or any foul-smelling drainage patient not running any fever and white count is normal 2local wound care to continue with the Santyl however the patient will benefit from wound VAC as long as a nursing staff are able to achieve a good seal 3-patient is currently afebrile white count is normal , the patient will be monitored closely off antibiotic therapy Time with Patient: Less than 30
[2022-05-26] MEDS: VIT A,C & E-LUTEIN-MINERALS 1 EACH TAB PO SCH (15:24)
[2022-05-26] MEDS: ATORVASTATIN 40 MG TAB PO SCH (17:29)
[2022-05-26 17:30] LABS: Glucose,Whole Blood 152 mg/dL (70-110)
[2022-05-26 20:48] LABS: Glucose,Whole Blood 266 mg/dL (70-110)
[2022-05-26] MEDS: IPRATROPIUM-ALBUTEROL 3 ML NEB INHALATION PRN (23:52)
[2022-05-27] MEDS: IPRATROPIUM-ALBUTEROL 3 ML NEB INHALATION PRN ×2 (04:17→21:50)
[2022-05-27 06:14] LABS: Glucose,Whole Blood 156 mg/dL (70-110)
[2022-05-27] MEDS: INSULIN ASPART (NovoLOG) 100 UNIT/ML VIAL SQ SCH ×4 (06:14→21:12)
[2022-05-27] MEDS: INSULIN DETEMIR (LEVEMIR) 100 UNIT/ML SYR SQ SCH (06:17)
[2022-05-27] MEDS: IPRATROPIUM-ALBUTEROL 3 ML NEB INHALATION SCH ×4 (07:18→21:50)
[2022-05-27] MEDS: SYMBICORT 80-4.5 MCG INHALER INHALATION SCH ×2 (07:18→21:50)
--- NOTE | 2022-05-27 07:45 | P.PN ---
Subjective Progress Note Date: 05/27/22 Principal diagnosis: Acute on chronic systolic heart failure, Influenza A PCR positive on admission. Past medical history significant for severe mitral valve regurgitation, status post mitral valve repair 04/19/22, coronary artery disease, previous PCI, previous non-STEMI, status post CABG 3 04/19/22, paroxysmal atrial fibrillation, previous cardioversion, on Eliquis outpatient for anticoagulation, status post modified Castanon maze and ligation of left atrial appendage, patent foramen ovale, status post closure, chronic systolic congestive heart failure, ischemic cardiomyopathy with EF 40-45%, hypertension, hyperlipidemia, right internal carotid stenosis 50-79%, chronic blood loss anemia with history of GI bleed in November 2021 S/P transfusion PRBCs, 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 The patient was seen and examined in follow-up today 05/27/2022 at his bedside on the sixth floor cardiac observation unit. He is sitting up to the bedside edge, is awake, alert, oriented 3 and is in no acute apparent distress. Denies any complaints of shortness of breath or pain at this time. His hemoglobin was 6.7 yesterday and was transfused 1 unit of packed red blood cells. His Eliquis remains on hold and he is tentatively scheduled for an EGD by Dr. Michelle Ramos tomorrow 05/28/2022. Oxygen saturations are 95% on 2 L nasal cannula and he is achieving 1000 mL on his incentive spirometry up encouragement. He reports he has been up ambulating in his room and trying to offload on his bottom as much as possible. Laboratory results this morning remain pending. He's been afebrile the last 24 hours. He continues on Lasix 40 mg IV twice a day. Objective - Vital Signs Vital signs: Vital Signs Temp 97.8 F 05/27/22 02:21 Pulse 74 05/27/22 07:19 Resp 18 05/27/22 02:21 BP 109/52 05/27/22 02:21 Pulse Ox 95 05/27/22 07:19 FiO2 Intake & Output 05/26/22 05/27/22 05/27/22 18:59 06:59 18:59 Intake Total 510 Output Total 1 501 Balance 509 -501 Weight 83 kg Intake: Oral 200 Blood Product 310 Rc As-1 Unit 310 [id number] Output: Urine 500 Stool 1 1 Other: Voiding Method Urinal Urinal # Voids 2 1 # Bowel Movements 1 1 - Exam CONSTITUTIONAL: Appears comfortable, cooperative, no acute distress. RESPIRATORY: Lungs sounds essentially diminished bilaterally throughout, left greater than right. Respirations are symmetrical, nonlabored. Currently on 2 L nasal cannula with oxygen saturation 95%. Able to achieve 1250 mL on incentive spirometry. Strong cough. CARDIOVASCULAR: S1, S2 present, negative for S3 or gallop. Soft systolic murmur heard best to his left sternal border. Regular rate and rhythm, sinus rhythm on telemetry. Sternum stable. Palpable peripheral pulses bilaterally. Trace lower extremity pitting edema present. No calf pain or tenderness noted. Heart hugger in place with patient demonstrating appropriate use. GASTROINTESTINAL: Abdomen soft, nontender, nondistended. Active bowel sounds present 4 quadrants. Tolerating diet. Bowel movement 05/26/22. GENITOURINARY: Continues to void clear, yellow urine. INTEGUMENTARY: Skin is warm and dry. Midline sternal incision well approximated without redness or drainage. Bilateral lower extremity EVH sites well approximated without redness or drainage. Stage III decubitus ulcer present to sacrum, covered with foam dressing. NEUROLOGIC: Cranial nerves II through XII intact. No focal deficits. MUSKULOSKELETAL: Able to move all extremities, strength equal bilaterally, gait normal. PSYCHIATRIC: Alert and oriented to person place and time, appropriate affect, intact judgment and insight. - Allied health notes Allied health notes reviewed: nursing - Labs CBC & Chem 7: 05/26/22 06:14 05/26/22 06:14 Labs: Abnormal Lab Results - Last 24 Hours (Table) 05/24/22 05/26/22 05/26/22 Range/Units 12:35 06:14 06:14 RBC 2.29 L (4.40-5.60) X 10*6/uL Hgb 6.7 L* (13.0-17.0) g/dL Hct 22.3 L (39.6-50.0) % MCV 97.4 H (80.0-97.0) fL MCHC 30.0 L (32.0-37.0) g/dL RDW 17.4 H (11.5-14.5) % Immature Gran # 0.15 H (0.00-0.04) X 10*3/uL Lymphocytes # 0.69 L (0.90-5.00) X 10*3/uL Monocytes # 1.02 H (0.20-1.00) X 10*3/uL Eosinophils # 0.39 H (0.04-0.35) X 10*3/uL Carbon Dioxide 31.5 H (20.0-27.5) mmol/L Anion Gap 8.50 L (10.00-18.00) mmol/L BUN/Creatinine Ratio 20.78 H (12.00-20.00) Ratio Glucose 137 H (70-110) mg/dL POC Glucose (mg/dL) (70-110) mg/dL Crossmatch See Detail 05/26/22 05/26/22 05/26/22 Range/Units 11:57 17:27 20:38 RBC (4.40-5.60) X 10*6/uL Hgb (13.0-17.0) g/dL Hct (39.6-50.0) % MCV (80.0-97.0) fL MCHC (32.0-37.0) g/dL RDW (11.5-14.5) % Immature Gran # (0.00-0.04) X 10*3/uL Lymphocytes # (0.90-5.00) X 10*3/uL Monocytes # (0.20-1.00) X 10*3/uL Eosinophils # (0.04-0.35) X 10*3/uL Carbon Dioxide (20.0-27.5) mmol/L Anion Gap (10.00-18.00) mmol/L BUN/Creatinine Ratio (12.00-20.00) Ratio Glucose (70-110) mg/dL POC Glucose (mg/dL) 201 H 152 H 266 H (70-110) mg/dL Crossmatch 05/27/22 Range/Units 06:10 RBC (4.40-5.60) X 10*6/uL Hgb (13.0-17.0) g/dL Hct (39.6-50.0) % MCV (80.0-97.0) fL MCHC (32.0-37.0) g/dL RDW (11.5-14.5) % Immature Gran # (0.00-0.04) X 10*3/uL Lymphocytes # (0.90-5.00) X 10*3/uL Monocytes # (0.20-1.00) X 10*3/uL Eosinophils # (0.04-0.35) X 10*3/uL Carbon Dioxide (20.0-27.5) mmol/L Anion Gap (10.00-18.00) mmol/L BUN/Creatinine Ratio (12.00-20.00) Ratio Glucose (70-110) mg/dL POC Glucose (mg/dL) 156 H (70-110) mg/dL Crossmatch Assessment and Plan Assessment: 1. Acute on chronic systolic heart failure 2. Influenza A PCR positive on admission 3. Shortness of breath, hypoxia secondary to above 4. History of Severe mitral valve regurgitation, status post mitral valve repair 04/19/22 5. Coronary artery disease, previous PCI, previous non-STEMI, status post CABG 3 04/19/22 6. History of paroxysmal atrial fibrillation, previous cardioversion, on Eliquis outpatient for anticoagulation, status post modified Castanon maze and ligation of left atrial appendage 7. Patent foramen ovale, status post closure 8. Chronic systolic congestive heart failure, ischemic cardiomyopathy with EF 40-45% 9. History of hypertension 10. History hyperlipidemia, treated, cholesterol 150, LDL 72 11. Right internal carotid stenosis 50-79% 12. 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 Chronic renal failure, baseline creatinine 1.28-1.6 14. Diabetes mellitus type 2, preoperative hemoglobin A1c 5.6% 15. Osteoarthritis, chronic low back pain 16. Severe COPD, preoperative FEV1 41% of predicted 17. Previous nicotine dependence 18. Sacral stage II ulcer status post debridement 19. Medical debility, generalized weakness 20. History of small left-sided pleural effusion, status post left-sided thoracentesis on 04/30/2022 21. History of urinary retention possibly secondary to constipation Plan: 1. Continue low-dose aspirin, statin, and beta siomara. Continue to hold Eliquis. 2. Continue Lasix 40 mg IV twice a day for diuresis. Continue to monitor her BUN and creatinine. 3. Encouraged incentive spirometry is 10 times every hour while awake. Bronchodilators per pulmonology. 4. Hemoglobin was 6.7 yesterday 05/26/2022 and he was transfused for 1 unit of packed red blood cells. Laboratory results morning remain pending. 5. Increase activity, ambulate as tolerated. PT/OT/cardiac rehab following. 6. GI/DVT prophylaxis. 7. Insulin management per internal medicine, patient needs tight blood sugar control to prevent further infection and promote healing 8. Pain control with current medication regimen. 9. Strict accurate intake and output, daily weights. 10. Patient must shower daily, remove decubitus dressing and clean decubitus in the shower, reapply dressing. 11. Continue sternal precautions, no lifting/pulling/pushing anything heavier than 10 pounds for a full 12 weeks post surgery[address] 12. Dr. Michelle Ramos consult noted and appreciated, possible EGD on 05/28/2022. Nothing by mouth after midnight. 13. More recommendations to follow based on patient's clinical course. Time with Patient: Greater than 30
[2022-05-27] MEDS: LIDOCAINE 5% PATCH TOPICAL SCH (09:42)
[2022-05-27] MEDS: DAPAGLIFLOZIN PROPANEDIOL 10 MG TABLET PO SCH (09:43)
[2022-05-27] MEDS: TAMSULOSIN 0.4 MG CAP.ER.24H PO SCH (09:43)
[2022-05-27] MEDS: FUROSEMIDE 10 MG/ML 4 ML VIAL IV SCH ×2 (09:43→16:09)
[2022-05-27] MEDS: FERROUS SULFATE 325 MG TAB PO SCH ×2 (09:43→16:09)
[2022-05-27] MEDS: METOPROLOL TARTRATE 25 MG TAB PO SCH ×2 (09:43→16:09)
[2022-05-27] MEDS: PANTOPRAZOLE 40 MG TABLET PO SCH ×2 (09:44→16:09)
[2022-05-27] MEDS: COLLAGENASE 250 UNIT/GM OINTMENT 30 GM TUBE TOPICAL SCH (09:44)
[2022-05-27 11:38] LABS: Basophils # (A) 0.15 X 10*3/uL (0.00-0.10); Basophils % (A) 1.5 %; Eosinophils # (A) 0.28 X 10*3/uL (0.04-0.35); Eosinophils % (A) 2.7 %; HGB 8.1 g/dL (13.0-17.0); Immature Grans, Automated 1.5 %; Lymphocytes # (A) 0.61 X 10*3/uL (0.90-5.00); Lymphocytes % (A) 5.9 %; MCH 29.1 pg (27.0-32.0); MCV 97.1 fL (80.0-97.0); Mean Platelet Volume 10.4 fL (9.5-12.2); Monocytes % (A) 10.7 %; NRBC Per 100 WBC 0 /100 WBCS (0.0-0.0); Neutrophils # (A) 7.97 X 10*3/uL (1.80-7.70); Neutrophils % (A) 77.7 %; Platelet Count 309 X 10*3/uL (140-440); RBC 2.78 X 10*6/uL (4.40-5.60); RDW 17.4 % (11.5-14.5); WBC 10.26 X 10*3/uL (4.50-10.00)
[2022-05-27 11:50] LABS: African American GFR (CKD) 94.8 (60.0-200.0); Anion Gap 10.2 mmol/L (10.00-18.00); BUN/Creat Ratio 17.53 Ratio (12.00-20.00); Blood Urea Nitrogen 16.2 mg/dL (9.0-27.0); Calcium 8.6 mg/dL (8.7-10.3); Carbon Dioxide 30.2 mmol/L (20.0-27.5); Non-African American GFR(CKD) 81.8 (60.0-200.0); Potassium 4.6 mmol/L (3.5-5.5)
[2022-05-27] MEDS: ASCORBIC ACID 500 MG TAB PO SCH (12:01)
[2022-05-27] MEDS: ASPIRIN 81 MG PO SCH (12:01)
--- NOTE | 2022-05-27 12:37 | PN ---
PROGRESS NOTE DATE OF SERVICE: 05/26/2022 SUBJECTIVE: This is a 72-year-old gentleman who was admitted after CABG, had a sternal wound, sacral wound as well as CHF also. The hemoglobin is 6.8 today. No chest pain, no palpitations, no fever. OBJECTIVE: VITAL SIGNS: Pulse is 78, blood pressure 101/53, and respirations 19. CHEST: Few scattered rhonchi. CARDIOVASCULAR: S1, S2. ABDOMEN: Soft. LABS: Reviewed, hemoglobin 6.7. ASSESSMENT: 1. Congestive heart failure acute exacerbation with acute on chronic systolic dysfunction. 2. Acute influenza A infection. 3. History of recent coronary artery disease, coronary artery bypass grafting. 4. Sacral decubitus ulcer stage 3. 5. Normocytic normochromic anemia with history of duodenal AV malformation. 6. Persistent atrial fibrillation. 7. Hypertension. 8. Hyperlipidemia. RECOMMENDATIONS AND DISCUSSION: This is a 72-year-old gentleman who presented with multiple complex medical issues. At this time, I recommend 1 unit transfusion with Lasix 20. Continue rest of the medications. Otherwise, follow closely with multiple consultants. Possible endoscope, wound debridement and wound VAC placement also. A chest CT scan was also noted. A chest x-ray showed some bilateral pleural effusion. The patient is currently on Lasix 40 IV b.i.d. Recommend fluid restriction to 100 mL per 24 hours also. MMODL / IJN: [id number] /
[2022-05-27 12:47] LABS: Glucose,Whole Blood 231 mg/dL (70-110)
--- NOTE | 2022-05-27 15:53 | P.PN ---
Subjective Progress Note Date: 05/27/22 Principal diagnosis: stage III sacral pressure ulcer patient is a 72-year-old male recently did have a coronary bypass grafting tomorrow hospital stay developing sacral pressure ulcer status post surgical debridement with a readmission to the hospital for increasing shortness of breath currently being managed by cardiology services, patient did have a nonhealing wound to the sacral area that has prompted this infection disease consultation. On today's evaluation that is 05/27/2022, the patient continues to be afebrile, the patient is breathing slightly comfortably on a 2 L nasal cannula oxygen, the patient denies chest pain did have occasional dry cough, the patient denies nausea no vomiting no abdominal pain or pain to the sacral wound area Objective - Vital Signs Vital signs: Vital Signs Temp 98.1 F 05/27/22 08:00 Pulse 72 05/27/22 11:18 Resp 18 05/27/22 08:00 BP 106/62 05/27/22 08:00 Pulse Ox 96 05/27/22 08:00 FiO2 Intake & Output 05/26/22 05/27/22 05/27/22 18:59 06:59 18:59 Intake Total 510 1065 Output Total 1 501 1 Balance 509 -501 1064 Weight 83 kg Intake: Oral 200 1065 Blood Product 310 Rc As-1 Unit 310 [id number] Output: Urine 500 Stool 1 1 1 Other: Voiding Method Urinal Urinal Urinal # Voids 2 1 5 # Bowel Movements 1 1 4 - Exam GENERAL DESCRIPTION: An elderly male up in bed in no distress RESPIRATORY SYSTEM: Unlabored breathing , decreased breath sounds at bases HEART: S1 S2 regular rate and rhythm , ABDOMEN: Soft , no tenderness Sacral wound with minimal slough no surrounding redness or drainage EXTREMITIES: 2+ edema feet - Labs CBC & Chem 7: 05/27/22 06:23 05/27/22 06:23 Labs: Abnormal Lab Results - Last 24 Hours (Table) 05/24/22 05/26/22 05/26/22 Range/Units 12:35 17:27 20:38 WBC (4.50-10.00) X 10*3/uL RBC (4.40-5.60) X 10*6/uL Hgb (13.0-17.0) g/dL Hct (39.6-50.0) % MCV (80.0-97.0) fL MCHC (32.0-37.0) g/dL RDW (11.5-14.5) % Immature Gran # (0.00-0.04) X 10*3/uL Neutrophils # (1.80-7.70) X 10*3/uL Lymphocytes # (0.90-5.00) X 10*3/uL Monocytes # (0.20-1.00) X 10*3/uL Basophils # (0.00-0.10) X 10*3/uL Carbon Dioxide (20.0-27.5) mmol/L Glucose (70-110) mg/dL POC Glucose (mg/dL) 152 H 266 H (70-110) mg/dL Calcium (8.7-10.3) mg/dL Crossmatch See Detail 05/27/22 05/27/22 05/27/22 Range/Units 06:10 06:23 06:23 WBC 10.26 H (4.50-10.00) X 10*3/uL RBC 2.78 L (4.40-5.60) X 10*6/uL Hgb 8.1 L (13.0-17.0) g/dL Hct 27.0 L (39.6-50.0) % MCV 97.1 H (80.0-97.0) fL MCHC 30.0 L (32.0-37.0) g/dL RDW 17.4 H (11.5-14.5) % Immature Gran # 0.15 H (0.00-0.04) X 10*3/uL Neutrophils # 7.97 H (1.80-7.70) X 10*3/uL Lymphocytes # 0.61 L (0.90-5.00) X 10*3/uL Monocytes # 1.10 H (0.20-1.00) X 10*3/uL Basophils # 0.15 H (0.00-0.10) X 10*3/uL Carbon Dioxide 30.2 H (20.0-27.5) mmol/L Glucose 137 H (70-110) mg/dL POC Glucose (mg/dL) 156 H (70-110) mg/dL Calcium 8.6 L (8.7-10.3) mg/dL Crossmatch 05/27/22 Range/Units 12:46 WBC (4.50-10.00) X 10*3/uL RBC (4.40-5.60) X 10*6/uL Hgb (13.0-17.0) g/dL Hct (39.6-50.0) % MCV (80.0-97.0) fL MCHC (32.0-37.0) g/dL RDW (11.5-14.5) % Immature Gran # (0.00-0.04) X 10*3/uL Neutrophils # (1.80-7.70) X 10*3/uL Lymphocytes # (0.90-5.00) X 10*3/uL Monocytes # (0.20-1.00) X 10*3/uL Basophils # (0.00-0.10) X 10*3/uL Carbon Dioxide (20.0-27.5) mmol/L Glucose (70-110) mg/dL POC Glucose (mg/dL) 231 H (70-110) mg/dL Calcium (8.7-10.3) mg/dL Crossmatch Assessment and Plan (1) Stage III pressure ulcer of sacral region Current Visit: Yes Status: Acute Code(s): L89.153 - PRESSURE ULCER OF SACRAL REGION, STAGE 3 SNOMED Code(s): 00604754482145 Plan: 1patient with a stage III sacral pressure ulcer acquired after the patient did undergo CABG surgery in this patient who is status post surgical debridement on his last admission wound base currently with minimal slough tissue however no significant surrounding swelling redness or any foul-smelling drainage patient not running any fever and white count is normal 2local wound care will be switched over to wound VAC discussed with the nursing staff 3-patient is currently afebrile white count is normal , the patient will be monitored closely off antibiotic therapy Time with Patient: Less than 30
[2022-05-27] MEDS: ATORVASTATIN 40 MG TAB PO SCH (16:09)
[2022-05-27 17:47] LABS: Glucose,Whole Blood 156 mg/dL (70-110)
[2022-05-27] MEDS: VIT A,C & E-LUTEIN-MINERALS 1 EACH TAB PO SCH (18:02)
[2022-05-27 20:13] LABS: Glucose,Whole Blood 177 mg/dL (70-110)
--- NOTE | 2022-05-27 21:34 | CONS ---
CONSULTATION HISTORY OF PRESENT ILLNESS: A 72-year-old gentleman with complex cardiac history. He has been re-admitted to hospital with influenza and congestive heart failure exacerbation and severe symptomatic anemia requiring blood transfusion. At the time of my evaluation, the patient appears comfortable at rest and is free of chest pain or difficulty in breathing. His O2 sats are good. He is on IV Lasix and has good urine output. The CBC was pending at that time. PHYSICAL EXAMINATION: GENERAL: On exam, comfortable at rest. VITAL SIGNS: Stable. CHEST: Reveals diminished air entry at the base. HEART: Reveals first and second heart sounds. No gallop. EXTREMITIES: Revealed mild edema. ASSESSMENT AND PLAN: Acute exacerbation of chronic systolic heart failure, coronary artery status post coronary artery bypass graft, mitral regurgitation status post mitral valve repair, paroxysmal atrial fibrillation, and anemia. Workup in progress. Continue IV Lasix. MMYUDY / ROMAN: [id number] /
--- NOTE | 2022-05-27 21:39 | PN ---
PROGRESS NOTE SUBJECTIVE: This is a 72-year-old gentleman with past medical history of mitral regurgitation, status post mitral valve repair, CAD status post CABG, paroxysmal atrial fibrillation, status post Maze, PFO status post closure, chronic systolic heart failure, who is admitted to the hospital with influenza and has had issues related to anemia. His hemoglobin yesterday was 6.7. This morning, he denies any chest pain or difficulty in breathing. OBJECTIVE: VITAL SIGNS: Heart rate is 76 beats per minute. Blood pressure is 109/50. Respiratory rate is 18. CHEST: Reveals good air entry bilaterally. HEART: Exam reveals first and second heart sounds and a systolic murmur at the apex. ABDOMEN: Soft. EXTREMITIES: Exam of extremities revealed mild edema. Peripheral pulses are felt. ASSESSMENT: 1. Paroxysmal atrial fibrillation. 2. Coronary artery disease, status post coronary artery bypass grafting. 3. Mitral regurgitation, status post mitral valve repair. 4. Influenza. 5. Anemia. 6. Chronic systolic heart failure. PLAN: We can continue the patient on IV Lasix at this time. MMODL / NOAN: [id number] /
[2022-05-27] MEDS: HYDROcodone/APAP 5-325MG 1 EACH TAB PO PRN (22:08)
--- NOTE | 2022-05-28 02:16 | PN ---
PROGRESS NOTE DATE OF SERVICE: 05/27/2022 HISTORY OF PRESENT ILLNESS: This is a 72-year-old gentleman who was admitted with CAD, CABG, and multiple medical issues. The patient is stated to have an EGD and possibly wound VAC placement for the decubitus ulcer which hopefully could be done early next week. Otherwise, the patient will be closely monitored. There is no history of any fever, rigors, or chills at this time. OBJECTIVE: VITAL SIGNS: Pulse is 85, blood pressure N, respirations 18. CHEST: A few scattered rhonchi. CARDIOVASCULAR: N ABDOMEN: Soft. NERVOUS SYSTEM: N LABS: Reviewed. ASSESSMENT: 1. Congestive heart failure with exacerbation with acute on chronic systolic dysfunction. 2. Acute influenza infection. 3. History of coronary artery bypass, coronary artery bypass grafting. 4. Sacral decubitus ulcer, stage 3. 5. Normocytic normochromic anemia. 6. History of duodenal arteriovenous malformation. 7. Persistent atrial fibrillation. 8. Hypertension. 9. Hyperlipidemia. RECOMMENDATIONS: Recommend to continue current medications, symptomatic treatment. Otherwise, possible EGD versus wound VAC placement. PT/OT evaluation. Continue the rest of medications. Prognosis guarded because of multiple complex medical issues. We will follow the patient closely with multiple consultants. Further recommendations to follow. MMODL / IJN: [id number] / SEAMUS
[2022-05-28] MEDS: IPRATROPIUM-ALBUTEROL 3 ML NEB INHALATION PRN (02:53)
[2022-05-28 04:53] LABS: Anisocytosis Slight; HCT 27.6 % (39.0-53.0); HGB 8.3 gm/dL (13.0-17.5); Hypochromasia Marked; MCH 29.4 pg (25.0-35.0); MCHC 30.1 g/dL (31.0-37.0); MCV 97.4 fL (80.0-100.0); Macrocytosis Slight; Mean Platelet Volume 8.6; Platelet Count 243 k/uL (150-450); Poikilocytosis Moderate; RBC 2.83 m/uL (4.30-5.90); RDW 17.2 % (11.5-15.5); WBC 7.3 k/uL (3.8-10.6)
[2022-05-28 05:23] LABS: African American GFR (CKD) >90 (>60 ml/min/1.73 sqM); Anion Gap 4 mmol/L; Blood Urea Nitrogen 20 mg/dL (9-20); Calcium 8.2 mg/dL (8.4-10.2); Carbon Dioxide 30 mmol/L (22-30); Chloride 103 mmol/L (98-107); Glucose 129 mg/dL (74-99); Non-African American GFR(CKD) 87 (>60 ml/min/1.73 sqM); Sodium 137 mmol/L (137-145)
[2022-05-28] MEDS: ACETAMINOPHEN TAB 325 MG TAB PO PRN (05:34)
[2022-05-28] MEDS: INSULIN ASPART (NovoLOG) 100 UNIT/ML VIAL SQ SCH ×4 (06:42→20:47)
[2022-05-28 06:43] LABS: Glucose,Whole Blood 147 mg/dL (70-110)
[2022-05-28] MEDS: INSULIN DETEMIR (LEVEMIR) 100 UNIT/ML SYR SQ SCH (06:44)
--- NOTE | 2022-05-28 07:16 | XR ---
EXAMINATION TYPE: XR chest 1V portable DATE OF EXAM: 05/28/2022 6:35 AM COMPARISON: Chest radiographs from 05/26/2022 TECHNIQUE: XR chest 1V portable Portable AP radiograph of the chest. CLINICAL INDICATION:Male, 72 years old with history of Postoperative cardiac surgery; FINDINGS: Lungs/Pleura: Scattered airspace opacities most pronounced in right lower lobe. Blunting of the right costophrenic angle is present. No evidence of pneumothorax. No appreciable left pleural effusion. Pulmonary vascularity: Unremarkable. Heart/mediastinum: Cardiomediastinal silhouette is enlarged and stable. Musculoskeletal: No acute osseous pathology. Midline sternotomy wires are noted. Rotator cuff repair changes on the left. IMPRESSION: Scattered airspace opacities most pronounced in the right lung base with associated small pleural eff usion, not significantly changed from 05/26/2022.
[2022-05-28] MEDS: SYMBICORT 80-4.5 MCG INHALER INHALATION SCH ×2 (07:49→20:16)
[2022-05-28] MEDS: IPRATROPIUM-ALBUTEROL 3 ML NEB INHALATION SCH ×4 (07:50→20:16)
--- NOTE | 2022-05-28 08:02 | P.PN ---
Subjective Progress Note Date: 05/28/22 Principal diagnosis: Acute on chronic systolic heart failure, Influenza A PCR positive on admission. History of severe mitral valve regurgitation, status post mitral valve repair 04/19/22, coronary artery disease, previous PCI, previous non-STEMI, status post CABG 3 04/19/22, paroxysmal atrial fibrillation, previous cardioversion, on Eliquis outpatient for anticoagulation, status post modified Castanon maze and ligation of left atrial appendage, patent foramen ovale, status post closure, chronic systolic congestive heart failure, ischemic cardiomyopathy with EF 40- 45%, hypertension, hyperlipidemia, right internal carotid stenosis 50-79%, chronic blood loss anemia with history of GI bleed in November 2021 S/P transfusion PRBCs, 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 Denies significant chest pain, shortness of breath. Remains on 2 L nasal cannula. Urine output not being measured and documented appropriately. Patient has been ambulatory in his room without difficulty. Continuing with IV diuresis at this time. Remains in good spirits. Currently NPO for EGD, although hemaglobin 8.3 this am off Eliquis. Apparently there are plans to place wound vac to sacral decub although not clear if it will stay on/provide benefit due to location. No other new concerns. Objective - Vital Signs Vital signs: Vital Signs Temp 98.0 F 05/28/22 02:46 Pulse 80 05/28/22 07:50 Resp 19 05/28/22 02:46 BP 95/51 05/28/22 02:46 Pulse Ox 97 05/28/22 02:46 FiO2 Intake & Output 05/27/22 05/28/22 05/28/22 18:59 06:59 18:59 Intake Total 1776 Output Total 1 Balance 1775 Weight 85 kg Intake: Oral 1776 Output: Stool 1 Other: Voiding Method Urinal Toilet # Voids 1 2 # Bowel Movements 1 - Exam CONSTITUTIONAL: Appears comfortable, cooperative, no acute distress RESPIRATORY: Lungs sounds diminished bilaterally. Respirations even, nonlabored. Currently on 2 L nasal cannula with oxygen saturation 97%. Able to achieve 1250 mL on incentive spirometry. Strong cough. CARDIOVASCULAR: S1, S2 present. Irregular rate and rhythm, controlled atrial fibrillation on telemetry. Sternum stable. Palpable peripheral pulses bilaterally. Bilateral lower extremity pitting edema present. No calf pain or tenderness noted. Heart hugger in place with patient demonstrating appropriate use. Antiembolism stockings currently off patient GASTROINTESTINAL: Abdomen soft, nontender, nondistended. Active bowel sounds present 4 quadrants. Tolerating diet. Positive bowel movement 05/27 GENITOURINARY: Continues to void, not being measured INTEGUMENTARY: Skin is warm and dry. Anterior chest incision well approximated without redness or drainage. Bilateral lower extremity EVH sites well approximated without redness or drainage. Stage II present to sacrum, covered with foam dressing NEUROLOGIC: Cranial nerves II through XII intact MUSKULOSKELETAL: Able to move all extremities, strength equal bilaterally, gait normal PSYCHIATRIC: Alert and oriented to person place and time, appropriate affect, intact judgment and insight - Allied health notes Allied health notes reviewed: nursing - Labs CBC & Chem 7: 05/28/22 03:53 05/28/22 03:53 Labs: Abnormal Lab Results - Last 24 Hours (Table) 05/27/22 05/27/22 05/27/22 Range/Units 06:23 06:23 12:46 WBC 10.26 H (4.50-10.00) X 10*3/uL RBC 2.78 L (4.40-5.60) X 10*6/uL Hgb 8.1 L (13.0-17.0) g/dL Hct 27.0 L (39.6-50.0) % MCV 97.1 H (80.0-97.0) fL MCHC 30.0 L (32.0-37.0) g/dL RDW 17.4 H (11.5-14.5) % Immature Gran # 0.15 H (0.00-0.04) X 10*3/uL Neutrophils # 7.97 H (1.80-7.70) X 10*3/uL Lymphocytes # 0.61 L (0.90-5.00) X 10*3/uL Monocytes # 1.10 H (0.20-1.00) X 10*3/uL Basophils # 0.15 H (0.00-0.10) X 10*3/uL Carbon Dioxide 30.2 H (20.0-27.5) mmol/L Glucose 137 H (70-110) mg/dL POC Glucose (mg/dL) 231 H (70-110) mg/dL Calcium 8.6 L (8.7-10.3) mg/dL 05/27/22 05/27/22 05/28/22 Range/Units 17:46 20:12 03:53 WBC (4.50-10.00) X 10*3/uL RBC 2.83 L (4.40-5.60) X 10*6/uL Hgb 8.3 L (13.0-17.0) g/dL Hct 27.6 L (39.6-50.0) % MCV (80.0-97.0) fL MCHC 30.1 L (32.0-37.0) g/dL RDW 17.2 H (11.5-14.5) % Immature Gran # (0.00-0.04) X 10*3/uL Neutrophils # (1.80-7.70) X 10*3/uL Lymphocytes # (0.90-5.00) X 10*3/uL Monocytes # (0.20-1.00) X 10*3/uL Basophils # (0.00-0.10) X 10*3/uL Carbon Dioxide (20.0-27.5) mmol/L Glucose (70-110) mg/dL POC Glucose (mg/dL) 156 H 177 H (70-110) mg/dL Calcium (8.7-10.3) mg/dL 05/28/22 05/28/22 Range/Units 03:53 06:41 WBC (4.50-10.00) X 10*3/uL RBC (4.40-5.60) X 10*6/uL Hgb (13.0-17.0) g/dL Hct (39.6-50.0) % MCV (80.0-97.0) fL MCHC (32.0-37.0) g/dL RDW (11.5-14.5) % Immature Gran # (0.00-0.04) X 10*3/uL Neutrophils # (1.80-7.70) X 10*3/uL Lymphocytes # (0.90-5.00) X 10*3/uL Monocytes # (0.20-1.00) X 10*3/uL Basophils # (0.00-0.10) X 10*3/uL Carbon Dioxide (20.0-27.5) mmol/L Glucose 129 H (70-110) mg/dL POC Glucose (mg/dL) 147 H (70-110) mg/dL Calcium 8.2 L (8.7-10.3) mg/dL - Imaging and Cardiology Chest x-ray: report reviewed, image reviewed Assessment and Plan Assessment: 1. Acute on chronic systolic heart failure 2. Influenza A PCR positive on admission 3. Shortness of breath, hypoxia secondary to above 4. History of Severe mitral valve regurgitation, status post mitral valve repair 04/19/22 5. Coronary artery disease, previous PCI, previous non-STEMI, status post CABG 3 04/19/22 6. History of paroxysmal atrial fibrillation, previous cardioversion, on Eliquis outpatient for anticoagulation, status post modified Castanon maze and ligation of left atrial appendage 7. Patent foramen ovale, status post closure 8. Chronic systolic congestive heart failure, ischemic cardiomyopathy with EF 40-45% 9. History of hypertension 10. History hyperlipidemia, treated, cholesterol 150, LDL 72 11. Right internal carotid stenosis 50-79% 12. 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 Chronic renal failure, baseline creatinine 1.28-1.6 14. Diabetes mellitus type 2, preoperative hemoglobin A1c 5.6% 15. Osteoarthritis, chronic low back pain 16. Severe COPD, preoperative FEV1 41% of predicted 17. Previous nicotine dependence 18. Sacral stage II ulcer status post debridement 19. Medical debility, generalized weakness 20. History of small left-sided pleural effusion, status post left-sided thoracentesis on 04/30/2022 21. History of urinary retention possibly secondary to constipation 22. Repeat GIB on Eliquis, Eliquis on hold Plan: 1. Continue low dose aspirin, statin, beta siomara therapy. Continue to hold Eliquis 2. Continue to diurese with IV Lasix. Will need to transition to oral Lasix for discharge to ECF 3. Wean O2 as tolerated. Encouraged him spirometry is 10 times every hour while awake. Bronchodilators per pulmonology 4. Increase activity, ambulate as tolerated. PT/OT/cardiac rehab consulted 5. GI/DVT prophylaxis 6. Insulin management per internal medicine, patient needs tight blood sugar control to prevent further infection and promote healing 7. Pain control with current medication regimen 8. Strict accurate intake and output, daily weights 9. Patient must shower daily, remove decubitus dressing and clean decubitus in the shower, reapply dressing 10. Continue sternal precautions, no lifting/pulling/pushing anything heavier than 10 pounds for a full 12 weeks post surgery 11. Currently NPO for possible EGD today 12. Recommend discharging from hospital as soon as possible 13. More recommendations to follow
[2022-05-28] MEDS: LIDOCAINE 5% PATCH TOPICAL SCH (09:55)
[2022-05-28] MEDS: METOPROLOL TARTRATE 25 MG TAB PO SCH ×2 (09:56→16:20)
[2022-05-28] MEDS: DAPAGLIFLOZIN PROPANEDIOL 10 MG TABLET PO SCH (09:56)
[2022-05-28] MEDS: FERROUS SULFATE 325 MG TAB PO SCH ×2 (09:57→16:20)
[2022-05-28] MEDS: PANTOPRAZOLE 40 MG TABLET PO SCH ×2 (09:57→16:20)
[2022-05-28] MEDS: TAMSULOSIN 0.4 MG CAP.ER.24H PO SCH (09:57)
[2022-05-28] MEDS: FUROSEMIDE 10 MG/ML 4 ML VIAL IV SCH ×2 (09:58→16:20)
[2022-05-28] MEDS: COLLAGENASE 250 UNIT/GM OINTMENT 30 GM TUBE TOPICAL SCH (09:58)
[2022-05-28] MEDS ORDERED: PROPOFOL 10 MG/ML 20 ML VIAL IV ONE (10:22)
[2022-05-28] MEDS ORDERED: SODIUM CHLORIDE 0.9% 500 ML 500 ML IV ONE ×2 (10:27)
--- NOTE | 2022-05-28 10:49 | P.PCN ---
Date of Procedure: 05/28/22 Procedure(s) Performed: BRIEF HISTORY: Patient is a 72-year-old, pleasant, white male with recent history of CABG and mitral valve repair admitted to the hospital 4 days ago with GI bleed and anemia. He had a hemoglobin of 6.3 g/dL requiring 2 units of This examination. Patient has been on eliquis and is currently on hold for 3 days.. Hospitalization for almost 4 weeks following recent CABG surgery to at the end of April this year. During the course of hospitalization he had active GI bleed requiring EGD on 05/15/2022 and was noted to have actively bleeding duodenal AVM for which she underwent Endo Clip placement. He scheduled for an upper endoscopy today to evaluate for recent source of GI bleed. PROCEDURE PERFORMED: Esophagogastroduodenoscopy with biopsy. PREOPERATIVE DIAGNOSIS: Anemia/GI bleed. IV sedation per anesthesia. PROCEDURE: After informed consent was obtained, the patient was brought into the endoscopy unit. IV sedation was administered by Anesthesia under continuous monitoring. Initially the Olympus GIF-140 video endoscope was inserted into the mouth. Esophagus intubated without any difficulty. It was gradually advanced into the stomach and duodenum and carefully examined. The second part of the duodenum appeared normal. Previously placed endoclips and the second part of the duodenum appeared to be but no active bleeding identified. In the duodenal bulb was a 5 limited ulcer with no active bleeding. The scope at this time was withdrawn to the stomach, adequately insufflated with air, and upon careful examination, mucosa of the antrum had another 5 mm nonbleeding ulcer noted which was biopsied. Rest of the, body, cardia and the fundus appeared normal. The scope was then withdrawn into the esophagus. The GE junction was located at 39 cm from the incisors. The esophagus appeared normal. There were no erosions or ulcerations seen and the patient tolerated the procedure well. IMPRESSION: 1. Previously placed endoclips were noted in the second part of the duodenum but no active bleeding identified. 2. 5 mm duodenal ulcer with no active bleeding 3. 5 mm antral ulcer with no active bleeding. RECOMMENDATIONS: The findings of this examination were discussed with the patient . He'll be continued on Protonix 40 mg twice daily. Avoid NSAIDs. Start on a regular diet. Resume anticoagulation today.
[2022-05-28] MEDS: ASCORBIC ACID 500 MG TAB PO SCH (11:16)
[2022-05-28] MEDS: ASPIRIN 81 MG PO SCH (11:16)
--- NOTE | 2022-05-28 11:16 | PN ---
PROGRESS NOTE Derek is a 72-year-old gentleman with persistent atrial fibrillation, severe mitral regurgitation, CAD, who underwent bypass surgery, closure of the PFO and mitral valve repair on 04/19/2022 and had a prolonged hospital stay and was discharged to subacute rehab on 05/18/2022. The patient is readmitted to hospital with anemia secondary to GI related blood loss with progressively worsening shortness of breath. At the time of my evaluation this morning, he appears he is not short of breath. He is still in the IV Lasix and has received blood transfusion. PHYSICAL EXAMINATION: GENERAL: Comfortable at rest. VITAL SIGNS: Stable. CHEST: Reveals diminished air entry at the bases. HEART: Reveals first and second heart sounds. Systolic murmur at the left lower sternal border. ABDOMEN: Soft. EXTREMITIES: Revealed mild edema. Peripheral pulses are felt. Patient is currently on aspirin, Lipitor, Lasix 40 IV b.i.d., Lopressor 25 b.i.d. Labs are pending at this time. Yesterday's hemoglobin was 7.5. ASSESSMENT: 1. Acute on chronic systolic heart failure, severe mitral regurgitation status post mitral valve repair. 2. Coronary artery disease, status post bypass surgery. 3. Persistent atrial fibrillation, PFO status post closure. 4. Anemia. PLAN: Patient's Eliquis is on hold because of the GI related blood loss. I will continue the patient on IV Lasix that he is on. MMODL / IJN: [id number] /
[2022-05-28 11:26] LABS: HGB 6.7 g/dL (13.0-17.0)
[2022-05-28 12:20] LABS: Glucose,Whole Blood 115 mg/dL (70-110)
[2022-05-28 13:10] LABS: Glucose,Whole Blood 114 mg/dL (70-110)
--- NOTE | 2022-05-28 13:33 | P.PN ---
Subjective Progress Note Date: 05/28/22 Principal diagnosis: stage III sacral pressure ulcer patient is a 72-year-old male recently did have a coronary bypass grafting tomorrow hospital stay developing sacral pressure ulcer status post surgical debridement with a readmission to the hospital for increasing shortness of breath currently being managed by cardiology services, patient did have a nonhealing wound to the sacral area that has prompted this infection disease consultation. Patient is status post EGD 05/28/2022 with no evidence of active bleeding On today's evaluation that is 05/28/2022, the patient remains to be afebrile, the patient is breathing slightly comfortably on a 2 L nasal cannula oxygen, the patient denies chest pain , the patient did have occasional dry cough, the patient denies nausea no vomiting no abdominal pain or pain to the sacral wound area Objective - Vital Signs Vital signs: Vital Signs Temp 98.0 F 05/28/22 02:46 Pulse 80 05/28/22 12:02 Resp 19 05/28/22 02:46 BP 95/51 05/28/22 02:46 Pulse Ox 97 05/28/22 02:46 FiO2 Intake & Output 05/27/22 05/28/22 05/28/22 18:59 06:59 18:59 Intake Total 1776 400 Output Total 1 Balance 1775 400 Weight 85 kg Intake: IV 400 Oral 1776 Output: Stool 1 Other: Voiding Method Urinal Toilet # Voids 1 2 1 # Bowel Movements 1 - Exam GENERAL DESCRIPTION: An elderly male up in bed in no distress RESPIRATORY SYSTEM: Unlabored breathing , decreased breath sounds at bases HEART: S1 S2 regular rate and rhythm , ABDOMEN: Soft , no tenderness Sacral wound with minimal slough no surrounding redness or drainage EXTREMITIES: 2+ edema feet - Labs CBC & Chem 7: 05/28/22 03:53 05/28/22 03:53 Labs: Abnormal Lab Results - Last 24 Hours (Table) 05/26/22 05/27/22 05/27/22 Range/Units 06:14 17:46 20:12 RBC (4.30-5.90) m/uL Hgb 6.7 L* (13.0-17.0) g/dL Hct (39.0-53.0) % MCHC (31.0-37.0) g/dL RDW (11.5-15.5) % Glucose (74-99) mg/dL POC Glucose (mg/dL) 156 H 177 H (70-110) mg/dL Calcium (8.4-10.2) mg/dL 05/28/22 05/28/22 05/28/22 Range/Units 03:53 03:53 06:41 RBC 2.83 L (4.30-5.90) m/uL Hgb 8.3 L (13.0-17.0) g/dL Hct 27.6 L (39.0-53.0) % MCHC 30.1 L (31.0-37.0) g/dL RDW 17.2 H (11.5-15.5) % Glucose 129 H (74-99) mg/dL POC Glucose (mg/dL) 147 H (70-110) mg/dL Calcium 8.2 L (8.4-10.2) mg/dL 05/28/22 Range/Units 12:18 RBC (4.30-5.90) m/uL Hgb (13.0-17.0) g/dL Hct (39.0-53.0) % MCHC (31.0-37.0) g/dL RDW (11.5-15.5) % Glucose (74-99) mg/dL POC Glucose (mg/dL) 115 H (70-110) mg/dL Calcium (8.4-10.2) mg/dL Assessment and Plan (1) Stage III pressure ulcer of sacral region Current Visit: Yes Status: Acute Code(s): L89.153 - PRESSURE ULCER OF SACRAL REGION, STAGE 3 SNOMED Code(s): 51213910823609 Plan: 1patient with a stage III sacral pressure ulcer acquired after the patient did undergo CABG surgery in this patient who is status post surgical debridement on his last admission wound base currently with minimal slough tissue however no significant surrounding swelling redness or any foul-smelling drainage patient not running any fever and white count is normal 2local wound care was switched over to wound VAC and discussed with the nursing staff yesterday however has not been applied yet 3-patient is afebrile white count is normal , the patient will be monitored closely off antibiotic therapy Time with Patient: Less than 30
--- NOTE | 2022-05-28 14:11 | P.PN ---
Subjective Progress Note Date: 05/28/22 72-year-old male had a recent with coronary artery disease and CABG 3 and a close the PFO on 19 of April came in with compensative shortness of breath on weaning can start failure patient has EF of around the 40 with 50%. Patient has bilateral lower sweaty edema. was having orthopnea paroxysmal nocturnal dyspnea does have a pulmonary edema on the chest x-ray patient was started on IV Lasix BNP is around 10,000. 05/21/2022 Patient is seen and evaluated this morning currently sitting up in chair with at bedside. Patient is maintained on breathing treatments along with IV Lasix and currently maintaining saturations above 90% on room air. Patient's lower extremities elevated slightly in continued on compression stockings. CT surgery following recommending continued IV diuresis and discharge planning process for [facility]. Patient continues with significant weakness and will need ECF upon discharge. Lung sounds were with crackles noted and will continue IV Lasix and follow-up repeat labs. Patient continues with chest wall pain and heart hugger is noted. Incentive spirometer at the bedside and encourage the patient to continue using at least 10 times every hour while awake. Patient is afebrile denies worsening shortness of breath. Encourage the patient to continu e elevating lower extremities while at rest. Will have PT/OT evaluate the patient 05/22/2022 Patient is seen in follow-up this morning lying in bed appears dyspneic at rest continued on 2 L via nasal cannula. Chest x-ray shows CHF and is maintained on IV Lasix with CT surgery cardiology following. Patient also appears significantly pale will follow-up with a.m. labs. Most recent hemoglobin was 7.4. Patient continues to be dyspneic with minimal exertion and during conversation and appears generally ill. Patient extremely weak will be returning to rehab once more stable. Recommend follow-up labs in the a.m. Patient is currently afebrile denies chest pain or palpitations. Patient con tinues to report shortness of breath. Oral intake is fair and need encouragement. Recommend to monitor blood sugars before meals and at bedtime and will use sliding scale as needed. 05/23/2022 Patient is seen and evaluated in follow-up currently sitting up in the chair reporting has resting dyspnea has improved although feels he has no reserve. Patient is maintained on 2 L via nasal cannula maintaining oxygen saturations above 90%. Patient is up and walking to the bathroom continues with weakness although feels somewhat improved each day. Patient continues with lower extremity edema with compression stockings and is improving slowly with cardiology and CT surgery following recommending to continue on IV diuresis. Patient also continues on IV Zosyn during his past prolonged hospitalization post debridement of a decubitus ulcer with no cultures obtained and ID was following at that time recommending a minimum of 2 weeks of Zosyn. Patient has the flu as well on this admission. Recommend work with physical therapy daily. Patient was also continued on DuoNeb treatments and will continue. 05/24/2022 Patient seen and evaluated in follow-up today with multiple medical consultat ions following including CT surgery and cardiology. Wound care consultation along with infectious disease being placed as patient was maintained on Zosyn sacral decubitus ulcer and has received more than 2 week course monitor off antibiotics. Care and offloading and frequent position changes to the sacral area. Possible wound VAC. Encouraged to increase activity as tolerated. CT surgery following an cardiology recommending decreasing the IV Lasix dose and recommend close monitoring of labs. Patient's hemoglobin 6.6 today and will transfuse 1 unit of PRBC recommend follow-up labs in a.m. Encouraged increase activity as tolerated and encourage oral intake. Recommend to continue using i ncentive spirometer at least 10 times every hour while awake. 05/25/2022 Patient is seen and evaluated in follow-up this morning with multiple medical consultations following. CT surgery and cardiology following and maintained on IV Lasix twice daily and will continue as patient continues to be in volume overload. Patient also seen and evaluated by infectious disease and will continue with wound care with possible wound VAC placement. GI consulted as patient continues to have anemia and will plan for possible endoscopic intervention this Saturday and recommend to continue to monitor hemoglobin and hold anticoagulation and will transfuse is less than 7. Patient did receive a unit of PRBCs yesterday with hemoglobin of 7.5 today. BMP reviewed and within normal limits. Blood sugars that are controlled and will continue current regimen. Patient is maintained on 2 L via nasal cannula and encourage incentive spirometer use and increased activity as tolerated. Patient with significant stage III decubital ulcer recommending wound care as well as an offloading as much as possible. 05/28/2022 Patient is seen in follow-up post EGD with Dr. Ramos today. Patient was nothing by mouth with anticoagulation on hold and no active bleeding noted with GI recommending to resume anticoagulation today. Patient's hemoglobin is stable at 8.3. Patient also continues to be diuresed on IV Lasix with CT surgery and cardiology following. Chest x-ray with no significant changes from previous. Patient is on 2 L via nasal cannula and will continue. Infectious disease following as well and patient is being closely monitored off antibiotic therapy. Recommending local wound care and also a wound VAC is to be applied. Will discuss with case management in the morning about discharge planning. Follow-up with repeat labs in the a.m. Patient is afebrile denies worsening shortness of breath and denies chest pains. Diet once EGD report is followed on. Review of systems: Constitutional: No reports of fatigue, no fever, or chills, anxious at times due to shortness of breath Cardiovascular: No reports of chest pain or palpitations, reports chest wall pain with movement and coughing Respiratory: No reports of worsening shortness of breath GI: No reports of nausea, vomiting, or diarrhea, reports eating a little better : No reports of dysuria or retention Neurovascular: reports of generalized weakness and reports improvement in lower extremity edema, reports sacral pain Active Medications Acetaminophen (Acetaminophen Tab 325 Mg Tab) 650 mg PO Q6HR PRN PRN Reason: Fever and/ or Mild Pain Last Admin: 05/28/22 05:34 Dose: 650 mg Hydrocodone Bitart/Acetaminophen (Hydrocodone/Apap 5-325mg 1 Each Tab) 1 each PO Q6HR PRN PRN Reason: Moderate Pain (Scale 4 to 6) Last Admin: 05/27/22 22:08 Dose: 1 each Albuterol/Ipratropium (Ipratropium-Albuterol 3 Ml Neb) 3 ml INHALATION RT-QID [facility] Last Admin: 05/28/22 11:47 Dose: 3 ml Albuterol/Ipratropium (Ipratropium-Albuterol 3 Ml Neb) 3 ml INHALATION RT-Q2H PRN PRN Reason: Shortness Of Breath Or Wheezing Last Admin: 05/28/22 02:53 Dose: 3 ml Ascorbic Acid (Ascorbic Acid 500 Mg Tab) 500 mg PO DAILY@1200 ZULMA Last Admin: 05/28/22 11:16 Dose: 500 mg Aspirin (Aspirin 81 Mg) 81 mg PO DAILY@1200 ZULMA Last Admin: 05/28/22 11:16 Dose: 81 mg Atorvastatin Calcium (Atorvastatin 40 Mg Tab) 40 mg PO DAILY@1700 [facility] Last Admin: 05/27/22 16:09 Dose: 40 mg Benzocaine/Menthol (Benzocaine/Menthol Lozeng 1 Each Lozenge) 1 each MUCOUS MEM Q2HR PRN PRN Reason: Sore Throat Bisacodyl (Bisacodyl 10 Mg Supp) 10 mg RECTAL DAILY PRN PRN Reason: Constipation Budesonide/Formoterol Fumarate (Symbicort 80-4.5 Mcg Inhaler) 2 puff INHALATION RT-BID [facility] Last Admin: 05/28/22 07:49 Dose: 2 puff Collagenase (Collagenase 250 Unit/Gm Ointment 30 Gm Tube) 1 applic TOPICAL DAILY PRN; Protocol PRN Reason: Wound Healing Collagenase (Collagenase 250 Unit/Gm Ointment 30 Gm Tube) 1 applic TOPICAL DAILY [facility]; Protocol Last Admin: 05/28/22 09:58 Dose: 1 applic Dapagliflozin (Dapagliflozin Propanediol 10 Mg Tablet) 10 mg PO DAILY [facility] Last Admin: 05/28/22 09:56 Dose: 10 mg Dextrose/Water (Dextrose 50% Syringe 50 Ml) 25 ml IVP PER PROTOCOL PRN; Protocol PRN Reason: Hypoglycemia Dextrose/Water (Dextrose 50% Syringe 50 Ml) 50 ml IVP PER PROTOCOL PRN; Protocol PRN Reason: Hypoglycemia Ferrous Sulfate (Ferrous Sulfate 325 Mg Tab) 325 mg PO BID@0800,1700 [facility] Last Admin: 05/28/22 09:57 Dose: 325 mg Furosemide (Furosemide 10 Mg/Ml 4 Ml Vial) 40 mg IV BID@0900,1600 [facility] Last Admin: 05/28/22 09:58 Dose: 40 mg Guaifenesin/Dextromethorphan (Guaifenesin-Dm 600/30mg 1 Each Tab.Er.12h) 1 each PO Q12HR PRN PRN Reason: Cough Last Admin: 05/24/22 06:04 Dose: 1 each Insulin Aspart (Insulin Aspart (Novolog) 100 Unit/Ml Vial) 0 unit SQ [facility]; Protocol Last Admin: 05/28/22 12:40 Dose: Not Given Insulin Detemir (Insulin Detemir (Levemir) 100 Unit/Ml Syr) 10 unit SQ DAILY@0700 [facility] Last Admin: 05/28/22 06:44 Dose: 10 unit Lidocaine (Lidocaine 5% Patch) 2 patch TOPICAL DAILY@0800 [facility]; Protocol Last Admin: 05/28/22 09:55 Dose: 1 patch Magnesium Hydroxide (Magnesium Hydroxide 2,400 Mg/10 Ml Cup) 2,400 mg PO DAILY PRN PRN Reason: Constipation Metoprolol Tartrate (Metoprolol Tartrate 25 Mg Tab) 25 mg PO BID@0800,1700 [facility] Last Admin: 05/28/22 09:56 Dose: 25 mg Multivitamins/Minerals (Vit A,C & A-Bbpnfp-Gjnttjaa 1 Each Tab) 2 each PO DAILY@1500 [facility] Last Admin: 05/27/22 18:02 Dose: 2 each Pantoprazole Sodium (Pantoprazole 40 Mg Tablet) 40 mg PO BID@0800,1700 [facility] Last Admin: 05/28/22 09:57 Dose: 40 mg Senna/Docusate Sodium (Sennosides-Docusate Sodium 1 Each Tab) 2 each PO HS PRN PRN Reason: Constipation Sodium Biphosphate/Sodium Phosphate (Na Phos,M-B/Na Phos,Di-Ba 133 Ml Enema) 133 ml RECTAL DAILY PRN PRN Reason: Constipation Sodium Chloride (Sodium Chloride 0.9% Flush 10 Ml Syringe) 10 ml IV BID [facility] Last Admin: 05/28/22 09:58 Dose: 10 ml Tamsulosin HCl (Tamsulosin 0.4 Mg Cap.Er.24h) 0.4 mg PO DAILY@0800 [facility] Last Admin: 05/28/22 09:57 Dose: 0.4 mg PHYSICAL EXAMINATION: GENERAL: The patient is alert and oriented x3, less dyspneic with conversation, ill-appearing Well developed, well nourished. HEENT: Pupils are round and equally reacting to light. EOMI. No scleral icterus. No conjunctival pallor. Normocephalic, atraumatic. No pharyngeal erythema. No thyromegaly. CARDIOVASCULAR: S1 and S2 muffled PULMONARY: bilateral lower lobe crackles noted with some improvement. Diminished breath sounds bilaterally ABDOMEN: Soft, nontender, nondistended, normoactive bowel sounds. No palpable organomegaly. MUSCULOSKELETAL: No joint swelling or deformity. EXTREMITIES: No cyanosis, clubbing, bilateral lower extremity edema noted with compression stockings NEUROLOGICAL: Gross neurological examination did not reveal any focal deficits. Diffusely weak SKIN: No rashes. Stage III sacral decubitus ulcer Assessment: -Congestive heart failure chronic systolic dysfunction with acute exacerbation: Patient will be continued on IV Lasix -Influenza infection -Normocytic, normochromic anemia with history of duodenal arteriovenous malformation, EGD today showing no active bleeding with the duodenal and antral ulcer noted previously placed endoclips in the duodenum -coronary artery disease with recent PCI and CABG about a month ago -Sacral decubitus ulcer stage III, status post recent debridement -persistent atrial fibrillation presently in sinus rhythm -Hypertension -hyperlipidemia -COPD without any acute exacerbation -Anemia secondary to surgery which is a chronic anemia, will need further eval uation as an outpatient. -DVT prophylaxis: Patient is on eliquis for atrial fibrillation Plan: Recommend to continue current medications and continue with IV Lasix diuresis with follow-up labs Recommend to monitor hemoglobin closely and transfuse if less than 7. Hemoglobin is stable with no active bleeding noted and underwent EGD showing a previously placed Endo Clip in the second part of the duodenum with no active bleeding with 5 mm duodenal ulcer along with antral ulcer and no bleeding noted as well. Recommending resuming anticoagulation and resuming diet. Avoid NSAIDs. Patient to continue on Protonix twice daily Wound care recommendations with infectious disease following for sacral decubitus ulcer, awaiting wound VAC Patient being followed daily by CT surgery recommending continuing IV diuresis and return to ECF for continued therapy PT/OT to work with the patient and recommend working with daily as patient continues with weakness Recommend continue with breathing treatments and other home medications Case management following working on discharge planning once patient is stable to ECF, will discuss with case management in a.m. about returning to ECF and treatment plan moving forward Encouraged to increase activity as tolerated and continued incentive spirometer use Encourage the patient elevating lower extremities while at rest Recommend resuming anticoagulation per GI and monitor for any bleeding, will follow-up with repeat labs in a.m. Due to multiple complex medical issues, Prognosis is guarded Possible discharge in 24-48 hours The impression and plan of care has been dictated by Angeles Meehan, Nurse Practitioner as directed. Dr. Patrick MD I have performed a history and examination and MDM of this patient, discussed the same with the dictator, and agree with the dictator's assessment and plan as written ,documented as a scribe. Based on total visit time, I have performed more than 50% of the visit. Objective - Vital Signs Vital signs: Vital Signs Temp 98.0 F 05/28/22 02:46 Pulse 80 05/28/22 12:02 Resp 19 05/28/22 02:46 BP 95/51 05/28/22 02:46 Pulse Ox 97 05/28/22 02:46 FiO2 Intake & Output 05/27/22 05/28/22 05/28/22 18:59 06:59 18:59 Intake Total 1776 400 Output Total 1 Balance 1775 400 Weight 85 kg Intake: IV 400 Oral 1776 Output: Stool 1 Other: Voiding Method Urinal Toilet # Voids 1 2 1 # Bowel Movements 1 - Labs CBC & Chem 7: 05/28/22 03:53 05/28/22 03:53 Labs: Abnormal Lab Results - Last 24 Hours (Table) 05/26/22 05/27/22 05/27/22 Range/Units 06:14 17:46 20:12 RBC (4.30-5.90) m/uL Hgb 6.7 L* (13.0-17.0) g/dL Hct (39.0-53.0) % MCHC (31.0-37.0) g/dL RDW (11.5-15.5) % Glucose (74-99) mg/dL POC Glucose (mg/dL) 156 H 177 H (70-110) mg/dL Calcium (8.4-10.2) mg/dL 05/28/22 05/28/22 05/28/22 Range/Units 03:53 03:53 06:41 RBC 2.83 L (4.30-5.90) m/uL Hgb 8.3 L (13.0-17.0) g/dL Hct 27.6 L (39.0-53.0) % MCHC 30.1 L (31.0-37.0) g/dL RDW 17.2 H (11.5-15.5) % Glucose 129 H (74-99) mg/dL POC Glucose (mg/dL) 147 H (70-110) mg/dL Calcium 8.2 L (8.4-10.2) mg/dL 05/28/22 05/28/22 Range/Units 12:18 13:09 RBC (4.30-5.90) m/uL Hgb (13.0-17.0) g/dL Hct (39.0-53.0) % MCHC (31.0-37.0) g/dL RDW (11.5-15.5) % Glucose (74-99) mg/dL POC Glucose (mg/dL) 115 H 114 H (70-110) mg/dL Calcium (8.4-10.2) mg/dL
[2022-05-28] MEDS: VIT A,C & E-LUTEIN-MINERALS 1 EACH TAB PO SCH (14:12)
[2022-05-28] MEDS: ATORVASTATIN 40 MG TAB PO SCH (16:20)
[2022-05-28 16:44] LABS: Glucose,Whole Blood 204 mg/dL (70-110)
[2022-05-28 20:14] LABS: Glucose,Whole Blood 174 mg/dL (70-110)
[2022-05-28] MEDS: HYDROcodone/APAP 5-325MG 1 EACH TAB PO PRN (20:46)
[2022-05-28] MEDS: APIXABAN 5 MG TAB PO SCH (20:47)
[2022-05-29 00:41] VITALS: RESP 18
[2022-05-29] MEDS: IPRATROPIUM-ALBUTEROL 3 ML NEB INHALATION PRN (00:41)
[2022-05-29 06:22] LABS: Glucose,Whole Blood 130 mg/dL (70-110)
[2022-05-29] MEDS: INSULIN ASPART (NovoLOG) 100 UNIT/ML VIAL SQ SCH ×2 (06:38→12:24)
[2022-05-29] MEDS: INSULIN DETEMIR (LEVEMIR) 100 UNIT/ML SYR SQ SCH (06:43)
[2022-05-29] MEDS: ACETAMINOPHEN TAB 325 MG TAB PO PRN (06:43)
[2022-05-29 07:21] LABS: Anisocytosis Slight; Basophils # (A) 0.1 k/uL (0-0.2); Basophils % (A) 2 %; Eosinophils # (A) 0.3 k/uL (0-0.7); Eosinophils % (A) 3 %; HCT 29.4 % (39.0-53.0); HGB 8.8 gm/dL (13.0-17.5); Hypochromasia Marked; Lymphocytes # (A) 0.6 k/uL (1.0-4.8); Lymphocytes % (A) 7 %; MCH 29.5 pg (25.0-35.0); MCHC 30.1 g/dL (31.0-37.0); MCV 98.1 fL (80.0-100.0); Macrocytosis Slight; Mean Platelet Volume 8.5; Monocytes # (A) 0.8 k/uL (0-1.0); Monocytes % (A) 9 %; Neutrophils # (A) 6.3 k/uL (1.3-7.7); Neutrophils % (A) 77 %; Platelet Count 290 k/uL (150-450); Poikilocytosis Slight; RBC 2.99 m/uL (4.30-5.90); RDW 17.1 % (11.5-15.5); WBC 8.2 k/uL (3.8-10.6)
[2022-05-29 07:28] LABS: African American GFR (CKD) 90 (>60 ml/min/1.73 sqM); Anion Gap 2 mmol/L; Blood Urea Nitrogen 16 mg/dL (9-20); Calcium 8.1 mg/dL (8.4-10.2); Carbon Dioxide 34 mmol/L (22-30); Chloride 104 mmol/L (98-107); Glucose 127 mg/dL (74-99); Non-African American GFR(CKD) 78 (>60 ml/min/1.73 sqM); Potassium 4.1 mmol/L (3.5-5.1); Sodium 140 mmol/L (137-145)
[2022-05-29] MEDS: IPRATROPIUM-ALBUTEROL 3 ML NEB INHALATION SCH ×3 (07:44→15:16)
[2022-05-29] MEDS: SYMBICORT 80-4.5 MCG INHALER INHALATION SCH (07:44)
[2022-05-29] MEDS: METOPROLOL TARTRATE 25 MG TAB PO SCH (08:02)
[2022-05-29] MEDS: TAMSULOSIN 0.4 MG CAP.ER.24H PO SCH (08:02)
[2022-05-29] MEDS: APIXABAN 5 MG TAB PO SCH (08:02)
[2022-05-29] MEDS: COLLAGENASE 250 UNIT/GM OINTMENT 30 GM TUBE TOPICAL SCH (08:03)
[2022-05-29] MEDS: LIDOCAINE 5% PATCH TOPICAL SCH (08:03)
[2022-05-29] MEDS: PANTOPRAZOLE 40 MG TABLET PO SCH (08:03)
[2022-05-29] MEDS: FUROSEMIDE 10 MG/ML 4 ML VIAL IV SCH ×2 (08:03→16:07)
[2022-05-29] MEDS: FERROUS SULFATE 325 MG TAB PO SCH (08:03)
[2022-05-29] MEDS: DAPAGLIFLOZIN PROPANEDIOL 10 MG TABLET PO SCH (08:04)
--- NOTE | 2022-05-29 08:05 | P.PN ---
Subjective Progress Note Date: 05/29/22 Principal diagnosis: Acute on chronic systolic heart failure, Influenza A PCR positive on admission. History of severe mitral valve regurgitation, status post mitral valve repair 04/19/22, coronary artery disease, previous PCI, previous non-STEMI, status post CABG 3 04/19/22, paroxysmal atrial fibrillation, previous cardioversion, on [facility] outpatient for anticoagulation, status post modified Castanon maze and ligation of left atrial appendage, patent foramen ovale, status post closure, chronic systolic congestive heart failure, ischemic cardiomyopathy with EF 40- 45%, hypertension, hyperlipidemia, right internal carotid stenosis 50-79%, chronic blood loss anemia with history of GI bleed in November 2021 S/P transfusion PRBCs, 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 Denies significant chest pain, shortness of breath. Remains on 2 L nasal cannula. Urine output not being measured and documented appropriately. Patient has been ambulatory in his room without difficulty. Continuing with IV diuresis at this time. Remains in good spirits. Apparently there are plans to place wound vac to sacral decub although not clear if it will stay on/provide benefit due to location. EGD completed yesterday, no evidence of active bleed, patient restarted on anticoagulation last night. No other new concerns. Objective - Vital Signs Vital signs: Vital Signs Temp 97.9 F 05/29/22 02:50 Pulse 82 05/29/22 02:50 Resp 18 05/29/22 02:50 BP 93/51 05/29/22 02:50 Pulse Ox 100 05/29/22 02:50 FiO2 Intake & Output 05/28/22 05/29/22 05/29/22 18:59 06:59 18:59 Intake Total 400 Output Total 350 Balance 400 -350 Intake: IV 400 Output: Urine 350 Other: Voiding Method Toilet # Voids 1 # Bowel Movements 1 - Exam CONSTITUTIONAL: Appears comfortable, cooperative, no acute distress RESPIRATORY: Lungs sounds diminished bilaterally. Respirations even, nonlabored. Currently on 2 L nasal cannula with oxygen saturation 100%. Able to achieve 1250 mL on incentive spirometry. Strong cough. CARDIOVASCULAR: S1, S2 present. Irregular rate and rhythm, controlled atrial fibrillation on telemetry. Sternum stable. Palpable peripheral pulses bilat erally. Bilateral lower extremity pitting edema present. No calf pain or tenderness noted. Heart hugger in place with patient demonstrating appropriate use. Antiembolism stockings currently off patient GASTROINTESTINAL: Abdomen soft, nontender, nondistended. Active bowel sounds present 4 quadrants. Tolerating diet. Positive bowel movement 05/28 GENITOURINARY: Continues to void, not being measured INTEGUMENTARY: Skin is warm and dry. Anterior chest incision well approximated without redness or drainage. Bilateral lower extremity EVH sites well approximated without redness or drainage. Stage III present to sacrum, covered with foam dressing NEUROLOGIC: Cranial nerves II through XII intact MUSKULOSKELETAL: Able to move all extremities, strength equal bilaterally, gait normal PSYCHIATRIC: Alert and oriented to person place and time, appropriate affect, intact judgment and insight - Allied health notes Allied health notes reviewed: nursing - Labs CBC & Chem 7: 05/29/22 06:54 05/29/22 06:54 Labs: Abnormal Lab Results - Last 24 Hours (Table) 05/26/22 05/28/22 05/28/22 Range/Units 06:14 12:18 13:09 Hgb 6.7 L* (13.0-17.0) g/dL POC Glucose (mg/dL) 115 H 114 H (70-110) mg/dL 05/28/22 05/28/22 05/29/22 Range/Units 16:43 20:12 06:21 Hgb (13.0-17.0) g/dL POC Glucose (mg/dL) 204 H 174 H 130 H (70-110) mg/dL Assessment and Plan Assessment: 1. Acute on chronic systolic heart failure 2. Influenza A PCR positive on admission 3. Shortness of breath, hypoxia secondary to above 4. History of Severe mitral valve regurgitation, status post mitral valve repair 04/19/22 5. Coronary artery disease, previous PCI, previous non-STEMI, status post CABG 3 04/19/22 6. History of paroxysmal atrial fibrillation, previous cardioversion, on Eliquis outpatient for anticoagulation, status post modified Castanon maze and ligation of left atrial appendage 7. Patent foramen ovale, status post closure 8. Chronic systolic congestive heart failure, ischemic cardiomyopathy with EF 40-45% 9. History of hypertension 10. History hyperlipidemia, treated, cholesterol 150, LDL 72 11. Right internal carotid stenosis 50-79% 12. 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 Chronic renal failure, baseline creatinine 1.28-1.6 14. Diabetes mellitus type 2, preoperative hemoglobin A1c 5.6% 15. Osteoarthritis, chronic low back pain 16. Severe COPD, preoperative FEV1 41% of predicted 17. Previous nicotine dependence 18. Sacral stage III ulcer status post debridement 19. Medical debility, generalized weakness 20. History of small left-sided pleural effusion, status post left-sided thor acentesis on 04/30/2022 21. History of urinary retention possibly secondary to constipation 22. Repeat acute blood loss anemia on Eliquis, third episode Plan: 1. Continue aspirin, statin, beta siomara therapy. Would recommend discontinuing Eliquis, but will leave up to cardiology judgment 2. Continue to diurese with IV Lasix. Will need to transition to oral Lasix for discharge to ECF 3. Wean O2 as tolerated. Encouraged him spirometry is 10 times every hour while awake. Bronchodilators per pulmonology 4. Increase activity, ambulate as tolerated. PT/OT/cardiac rehab consulted 5. GI/DVT prophylaxis 6. Insulin management per internal medicine, patient needs tight blood sugar control to prevent further infection and promote healing 7. Pain control with current medication regimen 8. Strict accurate intake and output, daily weights 9. Patient must shower daily, remove decubitus dressing and clean decubitus in the shower, reapply dressing. Wound VAC ordered by Dr. Chen, apparently black foam is not available from central sterile 10. Continue sternal precautions, no lifting/pulling/pushing anything heavier than 10 pounds for a full 12 weeks post surgery 11. Recommend discharging from hospital as soon as possible, patient could potentially go home with home care if wound vac is in place 12. More recommendations to follow
--- NOTE | 2022-05-29 09:13 | P.PN ---
Subjective Progress Note Date: 05/29/22 History of present illness: This pleasant 72-year-old gentleman who follows with Dr. Man in the office. He has a past medical history of persistent atrial fibrillation status post cardioversion, severe mitral valve regurgitation status post mitral valve repair as well as CAD with previous PCI and non-STEMI status post CABG 3 with closure of PFO on 04/19/2022, chronic systolic congestive heart failure, ischemic cardiomyopathy with an ejection fraction of 40-45%, hypertension, hyperlipidemia, right internal carotid artery stenosis, acute on chronic blood loss anemia, chronic kidney failure, type 2 diabetes, COPD and prior nicotine dependence. Was recently discharged tomorrow would for subacute rehab on 05/18/2022 after spending 29 days in the hospital postoperatively. 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 Foll owing discharge tomorrow would he developed progressively worsening shortness of breath, orthopnea and edema with hypoxemia requiring initiation of oxygen therapy. He was brought back to [facility] yesterday. Labs showed hemoglobin 7.5 with a subsequent dryness morning of 8.0, d-dimer 1.85, sodium 136, BUN 16, creatinine 1.06, minimal troponin elevation at 0.039 and an NT proBNP of 10,700. EKG showed sinus mechanism with nonspecific ST-T wave abnormalities but no evidence of acute ischemia. Chest x-ray showed cardiomegaly, pulmonary vascular congestion and bilateral pleural effusions, correlate with BNP for congestive heart failure. Subsequent chest x-ray this morning showed bilateral pleural effusions with right sided airspace opacities which could represent atelectasis versus developing pneumonia, clinical correlation. He did test positive for influenza A. He has been initiated on Lasix IV push 40 mg every 12 hours. Renal function this morning show some improvement compared to yesterday. He is overall feeling better. He feels the edema has significantly improved and his breathing is better. He's had no complaints of chest discomfort. Denies any palpitations, dizziness or lightheadedness. 05/21 Patient continues to have lower extremity edema. He denies having chest pain. He is currently on Lasix 40 mg IV every 12 hours. Urine output 2.3 L over the past 24 hours. Repeat blood work reveals hemoglobin of 7.4. Potassium 4.2, BUN 12 and creatinine 1.1. Pulse ox is 96% on 2 L, blood pressure 127/69, heart rate in the 70s. Repeat chest x-ray reveals bibasilar infiltrates with small bilateral pleural effusions, stable. 05/22 Patient continues to have shortness of breath hadn't multiple updraft treatments through the night. He is on IV Lasix 40 mg every 12 hours. Heart rate has been in the 80s, blood pressure 116/62, pulse ox 92% on 2 L.potassium 4.3, BUN 11 and creatinine 0.9. Repeat chest x-ray reveals CHF exacerbation and/or fluid overload state he demonstrated a slightly worsened 1 day prior. 05/23 Patient states that he had a rough night and required nebulizer treatments every couple hours. He continues to have some crackles in the lungs, wheezing improved, no lower extremity edema. We will plan to continue IV Lasix for another 24 hours. Repeat chest x-ray reveals stable portable chest. 05/24 This morning, patient is stating that his breathing is better and he feels well. Blood pressure is 108/59, pulse ox 99% on room air. Morning blood work is not available at the time of this dictation. Yesterday revealed potassium of 4.3, BUN 13 creatinine 1.1, hemoglobin 7.5. 05/25 Patient states today that his breathing is about the same as yesterday. He is currently on Lasix 20 mg IV twice daily. Yesterday's hemoglobin was 6.6 and patient received 1 unit of packed RBC and repeat hemoglobin this morning 7.5. BUN is 20 creatinine 0.94. Heart rate is been in the 70s, blood pressure 119/55 05/29 Patient states that his breathing seems to be stable and he has been ambulating in his room. He is able to get himself to the bathroom. He remains on oxygen at 3 L nasal cannula with pulse ox of 95%. He is currently on Lasix 40 mg IV twice daily and states he has been urinating well. He is using incentive spirometry at almost 1500 ML's. He underwent EGD which revealed duodenal ulcer and antral ulcer with no active bleeding, duodenal AVM clips are in place with no bleeding. Repeat hemoglobin is improving at 8.8. BUN 16 creatinine 0.97, potassium 4.1. PHYSICAL EXAMINATION: This is a 72-year-old male in no apparent distress at the time of my examination. HEENT: Head is atraumatic, normocephalic. Pupils are equal, round. Sclerae anicteric. Conjunctivae are clear. Mucous membranes of the mouth are moist. There is no elevated jugular venous pressure. CHEST EXAMINATION: Lungs reveal diminished air entry bilaterally with minimal bibasilar crackles. Respirations even and nonlabored. HEART EXAMINATION: Heart regular, positive S1 and S2. Sternal incision healing well, stable. ABDOMEN: Soft, nontender. Bowel sounds are heard. No organomegaly noted. EXTREMITIES: 2+ peripheral pulses with evidence of trace peripheral edema and no calf tenderness noted. NEUROLOGIC EXAMINATION: Patient is awake, alert and oriented x3. Assessment: #1 acute on chronic systolic congestive heart failure #2 influenza A #3 severe mitral valve regurgitation status post mitral valve repair 04/19/2022 #4 CAD with prior PCI status post CABG 3 04/19/2022 #5 persistent atrial fibrillation, status post cardioversion, maintaining sinus mechanism, anticoagulated, status post modified Castanon maze and ligation of left atrial appendage #6 PFO status post closure #7 ischemic cardiomyopathy with an ejection fraction of 40-45% #8 hypertension #9 hyperlipidemia #10 right internal carotid stenosis #11 anemia, stable #12 COPD Plan: Continue IV Lasix 40 mg twice daily until patient is discharged Hold eliquis as patient does not want to resume it due to bleeding. This can be reevaluated at a later time Patient to continue on aspirin 81 mg daily, atorvastatin 40 mg daily, Farxiga 10 mg daily, Lopressor 25 mg twice daily Plan will be to add Ruben to his medication regime at a later time once blood pressure is stable. Patient is to follow up with Dr. Man as an outpatient. [employer] note has been reviewed, I agree with a documented findings and plan of care. Patient was seen and examined. Objective - Vital Signs Vital signs: Vital Signs Temp 97.9 F 05/29/22 02:50 Pulse 82 05/29/22 02:50 Resp 18 05/29/22 02:50 BP 93/51 05/29/22 02:50 Pulse Ox 100 05/29/22 02:50 FiO2 Intake & Output 05/28/22 05/29/22 05/29/22 18:59 06:59 18:59 Intake Total 400 Output Total 350 Balance 400 -350 Intake: IV 400 Output: Urine 350 Other: Voiding Method Toilet # Voids 1 # Bowel Movements 1 - Labs CBC & Chem 7: 05/29/22 06:54 05/29/22 06:54 Labs: Abnormal Lab Results - Last 24 Hours (Table) 05/26/22 05/28/22 05/28/22 Range/Units 06:14 12:18 13:09 Hgb 6.7 L* (13.0-17.0) g/dL POC Glucose (mg/dL) 115 H 114 H (70-110) mg/dL 05/28/22 05/28/22 05/29/22 Range/Units 16:43 20:12 06:21 Hgb (13.0-17.0) g/dL POC Glucose (mg/dL) 204 H 174 H 130 H (70-110) mg/dL
[2022-05-29 12:17] LABS: Glucose,Whole Blood 199 mg/dL (70-110)
[2022-05-29] MEDS: ASCORBIC ACID 500 MG TAB PO SCH (12:24)
[2022-05-29] MEDS: ASPIRIN 81 MG PO SCH (12:24)
[2022-05-29 14:54] VITALS: BP 110/60; TEMP 98.4
[2022-05-29 15:19] VITALS: PULSE 76
[2022-05-29] MEDS: VIT A,C & E-LUTEIN-MINERALS 1 EACH TAB PO SCH (16:07)
--- NOTE | 2022-05-29 16:12 | P.PN ---
Subjective Progress Note Date: 05/29/22 Principal diagnosis: stage III sacral pressure ulcer patient is a 72-year-old male recently did have a coronary bypass grafting tomorrow hospital stay developing sacral pressure ulcer status post surgical debridement with a readmission to the hospital for increasing shortness of breath currently being managed by cardiology services, patient did have a nonhealing wound to the sacral area that has prompted this infection disease consultation. Patient is status post EGD 05/28/2022 with no evidence of active bleeding On today's evaluation that is 05/29/2022, the patient continues to be afebrile, the patient is breathing slightly comfortably on a 2 L nasal cannula oxygen, the patient denies chest pain , the patient denies cough or sputum production no abdominal pain no diarrhea or pain to the sacral wound area, mention feeling better Objective - Vital Signs Vital signs: Vital Signs Temp 98.3 F 05/29/22 07:00 Pulse 76 05/29/22 11:30 Resp 18 05/29/22 07:00 BP 107/54 05/29/22 07:00 Pulse Ox 95 05/29/22 07:00 FiO2 Intake & Output 05/28/22 05/29/22 05/29/22 18:59 06:59 18:59 Intake Total 400 237 Output Total 350 500 Balance 400 -350 -263 Weight 82.01 kg Intake: IV 400 Oral 237 Output: Urine 350 500 Other: Voiding Method Toilet Toilet # Voids 1 # Bowel Movements 1 - Exam GENERAL DESCRIPTION: An elderly male up in bed in no distress RESPIRATORY SYSTEM: Unlabored breathing , decreased breath sounds at bases HEART: S1 S2 regular rate and rhythm , ABDOMEN: Soft , no tenderness Sacral wound with minimal slough no surrounding redness or drainage EXTREMITIES: 2+ edema feet - Labs CBC & Chem 7: 05/29/22 06:54 05/29/22 06:54 Labs: Abnormal Lab Results - Last 24 Hours (Table) 05/28/22 05/28/22 05/28/22 Range/Units 13:09 16:43 20:12 RBC (4.30-5.90) m/uL Hgb (13.0-17.5) gm/dL Hct (39.0-53.0) % MCHC (31.0-37.0) g/dL RDW (11.5-15.5) % Lymphocytes # (1.0-4.8) k/uL Carbon Dioxide (22-30) mmol/L Glucose (74-99) mg/dL POC Glucose (mg/dL) 114 H 204 H 174 H (70-110) mg/dL Calcium (8.4-10.2) mg/dL 05/29/22 05/29/22 05/29/22 Range/Units 06:21 06:54 06:54 RBC 2.99 L (4.30-5.90) m/uL Hgb 8.8 L (13.0-17.5) gm/dL Hct 29.4 L (39.0-53.0) % MCHC 30.1 L (31.0-37.0) g/dL RDW 17.1 H (11.5-15.5) % Lymphocytes # 0.6 L (1.0-4.8) k/uL Carbon Dioxide 34 H (22-30) mmol/L Glucose 127 H (74-99) mg/dL POC Glucose (mg/dL) 130 H (70-110) mg/dL Calcium 8.1 L (8.4-10.2) mg/dL 05/29/22 Range/Units 12:15 RBC (4.30-5.90) m/uL Hgb (13.0-17.5) gm/dL Hct (39.0-53.0) % MCHC (31.0-37.0) g/dL RDW (11.5-15.5) % Lymphocytes # (1.0-4.8) k/uL Carbon Dioxide (22-30) mmol/L Glucose (74-99) mg/dL POC Glucose (mg/dL) 199 H (70-110) mg/dL Calcium (8.4-10.2) mg/dL Assessment and Plan (1) Stage III pressure ulcer of sacral region Current Visit: Yes Status: Acute Code(s): L89.153 - PRESSURE ULCER OF SACRAL REGION, STAGE 3 SNOMED Code(s): 91015003887835 Plan: 1patient with a stage III sacral pressure ulcer acquired after the patient did undergo CABG surgery in this patient who is status post surgical debridement on his last admission wound base currently with minimal slough tissue however no significant surrounding swelling redness or any foul-smelling drainage patient not running any fever and white count is normal 2local wound care will be over to Center followed by moist dressing changes daily as an billing and accounting staff assistant was unable to get a good seal with the wound VAC , patient advised to follow-up in the wound care center as scheduled for further local wound care 3-patient is afebrile white count is normal , there is no need for any antibiotics on discharge Time with Patient: Less than 30
== END 2022-05-29 16:33 | disposition home health service (06) | DRG 291 ==
LOC: EC 15:36 → 6NMEDSUR 20:23 → OBSVTOIN 05-22 09:08
PROVIDERS: ADMIT Hospitalist; ATTEND Hospitalist
PROC: 30233N1 Transfusion of Nonautologous Red Blood Cells into Peripheral Vein, Percutaneous Approach (ICD-10-PCS; 2022-05-24)
PROC: 0DB78ZX Excision of Stomach, Pylorus, Via Natural or Artificial Opening Endoscopic, Diagnostic (ICD-10-PCS; principal; 2022-05-28 10:05)
DX: I13.0 Hypertensive heart and chronic kidney disease with heart failure and stage 1 through stage 4 chronic kidney disease, or unspecified chronic kidney disease (principal); I50.23 Acute on chronic systolic (congestive) heart failure; L89.153 Pressure ulcer of sacral region, stage 3; J96.01 Acute respiratory failure with hypoxia; K31.811 Angiodysplasia of stomach and duodenum with bleeding; I48.19 Other persistent atrial fibrillation; D62 Acute posthemorrhagic anemia; I25.10 Atherosclerotic heart disease of native coronary artery without angina pectoris; I25.2 Old myocardial infarction; I25.5 Ischemic cardiomyopathy; I34.0 Nonrheumatic mitral (valve) insufficiency; I65.21 Occlusion and stenosis of right carotid artery; J10.1 Influenza due to other identified influenza virus with other respiratory manifestations; J44.9 Chronic obstructive pulmonary disease, unspecified; E11.622 Type 2 diabetes mellitus with other skin ulcer; F17.210 Nicotine dependence, cigarettes, uncomplicated; H91.90 Unspecified hearing loss, unspecified ear; D63.1 Anemia in chronic kidney disease; E11.22 Type 2 diabetes mellitus with diabetic chronic kidney disease; Z20.822 Contact with and (suspected) exposure to COVID-19; Z95.1 Presence of aortocoronary bypass graft; K25.9 Gastric ulcer, unspecified as acute or chronic, without hemorrhage or perforation; Z79.01 Long term (current) use of anticoagulants; N18.30 Chronic kidney disease, stage 3 unspecified; K26.9 Duodenal ulcer, unspecified as acute or chronic, without hemorrhage or perforation; Z95.2 Presence of prosthetic heart valve; Z28.21 Immunization not carried out because of patient refusal; L98.499 Non-pressure chronic ulcer of skin of other sites with unspecified severity; M19.90 Unspecified osteoarthritis, unspecified site; Z86.79 Personal history of other diseases of the circulatory system; E78.5 Hyperlipidemia, unspecified; G89.29 Other chronic pain; Z79.82 Long term (current) use of aspirin; Z79.899 Other long term (current) drug therapy; Z87.01 Personal history of pneumonia (recurrent); Z87.74 Personal history of (corrected) congenital malformations of heart and circulatory system; Z95.5 Presence of coronary angioplasty implant and graft; Z96.653 Presence of artificial knee joint, bilateral; Z28.311 Partially vaccinated for COVID-19
CPT/HCPCS: 36415; 43239; 71045; 71046; 71250; 80048; 80053; 81003; 83605; 83735; 83880; 84484; 85025; 85027; 85379; 85610; 85730; 86850; 86900; 86901; 86920; 87040; 87636; 93005; 94640; 94760; 96374; 96375; 99291

== ENCOUNTER 2022-09-23 00:36 | Emergency (ER) | payer MEDICARE ==
[2022-09-23 00:55] VITALS: TEMP 98
[2022-09-23] MEDS ORDERED: SODIUM CHLORIDE 0.9% 500 ML 500 ML IV STA (01:13)
--- NOTE | 2022-09-23 01:31 | ED ---
General Adult HPI - General Chief complaint: Shortness of Breath Stated complaint: DONELL/low hemaglobin Time Seen by Provider: 09/23/22 00:56 Source: patient Mode of arrival: EMS Limitations: no limitations - History of Present Illness Initial comments: Patient is a 72-year-old male presenting with chief complaint of shortness of breath. Patient currently has a visiting nurse, she noted that he was progressively short of breath and increasingly pale. Patient has had history of GI bleed. He is currently on iron supplementation. He has noted dark stools. He admits to cough. He denies any chest pain or palpitations. No abdominal pain. No recent trauma or injury. - Related Data Home Medications Medication Instructions Recorded Confirmed Vit C/E/Zn/Coppr/Lutein/Zeaxan 2 cap PO DAILY@1500 02/19/17 05/19/22 [Preservision Areds 2 Softgel] Fluticasone/Umeclidin/Vilanter 1 puff INHALATION RT-HS@2100 11/09/21 05/19/22 [Treleradha Awad 100-62.5-25] Ferrous Sulfate [Iron (65 MG 325 mg PO BID@0800,1700 12/22/21 05/19/22 Elemental)] Arginaid 1 packet PO BID@0800,1700 05/19/22 05/19/22 Ascorbic Acid [Vitamin C] 500 mg PO DAILY@1200 05/19/22 05/19/22 Aspirin 81 mg PO DAILY@1200 05/19/22 05/19/22 Atorvastatin [Lipitor] 40 mg PO DAILY@1700 05/19/22 05/19/22 Benzocaine/Menthol Lozeng [Cepacol 1 lozenge MUCOUS MEM Q2HR PRN 05/19/22 05/19/22 lozenge] Collagenase [Santyl Ointment] 1 applic TOPICAL DAILY 05/19/22 05/19/22 Glucerna Shake 1 can PO TID@0800,1200,1700 05/19/22 05/19/22 INSULIN ASPART (NovoLOG) [NovoLOG See Protocol SQ ACHS 05/19/22 05/19/22 (formulary)] Magnesium Hydroxide [Milk of 7,200 mg PO DAILY PRN 05/19/22 05/19/22 Magnesia Concentrate] Metoprolol Tartrate [Lopressor] 25 mg PO BID@0800,1700 05/19/22 05/19/22 Na Phos,M-B/Na Phos,Di-Ba [Fleet 133 ml RECTAL DAILY PRN 05/19/22 05/19/22 Adult] Pantoprazole [Protonix] 40 mg PO BID@0800,1700 05/19/22 05/19/22 Potassium Chloride ER [K-Dur 10] 10 meq PO DAILY@1200 05/19/22 05/19/22 Sennosides-Docusate Sodium 2 tab PO HS PRN 05/19/22 05/19/22 [Senokot-S] Tamsulosin [Flomax] 0.4 mg PO DAILY@0800 05/19/22 05/19/22 guaiFENesin-DM 600/30MG [Mucinex 1 tab PO Q12HR PRN 05/19/22 05/19/22 Dm] Previous Rx's Medication Instructions Recorded Acetaminophen Tab [Tylenol] 650 mg PO Q6HR PRN tab 05/18/22 bisacodyL [Dulcolax] 10 mg RECTAL DAILY PRN suppositor 05/18/22 Collagenase [Santyl Ointment] 1 applic TOPICAL DAILY PRN 30 Days 05/29/22 #1 each Dapagliflozin Propanediol [Farxiga] 10 mg PO DAILY@0800 30 Days #30 tab 05/29/22 HYDROcodone/APAP 5-325MG [[place] 1 tab PO Q6HR PRN #9 tab 05/29/22 5-325] INSULIN ASPART (NovoLOG) [NovoLOG 5 unit SQ ACHS 30 Days #5 each 05/29/22 (formulary)] Insulin Detemir (Levemir) [Levemir] 10 unit SQ DAILY@0700 30 Days #3 05/29/22 each Ipratropium-Albuterol Nebulize 3 ml INHALATION RT-Q2H PRN each 05/29/22 [Duoneb 0.5 mg-3 mg/3 ml Soln] Ipratropium-Albuterol Nebulize 3 ml INHALATION RT-QID 30 Days 05/29/22 [Duoneb 0.5 mg-3 mg/3 ml Soln] #120 each Lidocaine 5% Patch [Lidoderm 5% 2 patch TOPICAL DAILY@0800 #60 05/29/22 Patch] patch Furosemide [Lasix] 40 mg PO BID 30 Days #60 tablet 05/30/22 Allergies Allergy/AdvReac Type Severity Reaction Status Date / Time protamine Allergy Anaphylaxis Verified 05/19/22 18:21 Review of Systems ROS Statement: Those systems with pertinent positive or pertinent negative responses have been documented in the HPI. ROS Other: All systems not noted in ROS Statement are negative. Past Medical History Past Medical History: Atrial Fibrillation, Blood Disorder, COPD, Diabetes Mellit us, GI Bleed, Hearing Disorder / Deafness, Hyperlipidemia, Hypertension, Myocardial Infarction ([place]), Pneumonia Additional Past Medical History / Comment(s): Anemia, had GI Bleed 11/22, had 4 units of blood. Bilateral lower extremity edema. Hx [place] X2. Insomnia. Hx Pneumonia. Chronic back pain. Last Myocardial Infarction Date:: 11/2021 History of Any Multi-Drug Resistant Organisms: None Reported Past Surgical History: Back Surgery, Heart Catheterization With Stent, Joint Replacement, Orthopedic Surgery Additional Past Surgical History / Comment(s): BILATERAL KNEE REPLACEMENTS, BILATERAL SHOULDER SURGERY, ONE CARDIAC STENT, back surgery X2 (lumbar decompression and fusion), BACK INJECTIONS, COLONOSCOPY, BILATERAL CATARACTS REMOVED WITH LENS IMPLANTS, Cardioversion. Past Anesthesia/Blood Transfusion Reactions: No Reported Reaction Date of Last Stent Placement:: 2000 Past Psychological History: No Psychological Hx Reported Smoking Status: Current some day smoker - Past Family History Father Family Medical History: No Reported History Mother Family Medical History: No Reported History General Exam Limitations: no limitations General appearance: alert, in no apparent distress Head exam: Present: atraumatic, normocephalic, normal inspection Eye exam: Present: normal appearance, EOMI. Absent: periorbital swelling Neck exam: Present: normal inspection Respiratory exam: Present: normal lung sounds bilaterally. Absent: respiratory distress, wheezes, rales, rhonchi, stridor Cardiovascular Exam: Present: regular rate, normal rhythm, normal heart sounds. Absent: systolic murmur, diastolic murmur, rubs, gallop, clicks Rectal exam: Present: black stool Neurological exam: Present: alert, oriented X3, CN II-XII intact Psychiatric exam: Present: normal affect, normal mood Skin exam: Present: warm, dry, intact, normal color. Absent: rash Course Vital Signs 09/23/22 09/23/22 09/23/22 00:48 03:13 03:22 Temperature 98.0 F Pulse Rate 74 74 73 Respiratory 18 24 Rate Blood Pressure 139/64 113/50 O2 Sat by Pulse 96 99 Oximetry Fraction of Inspired Oxygen (FIO2) 09/23/22 09/23/22 09/23/22 03:30 03:37 04:52 Temperature Pulse Rate 80 74 Respiratory 18 Rate Blood Pressure 114/57 O2 Sat by Pulse 100 Oximetry Fraction of 45 Inspired Oxygen (FIO2) EKG Findings - EKG Comments: EKG Findings:: Sinus rhythm with first-degree AV block. Ventricular rate 74. RI interval 211. QRS 125. QT 325. QTC 353. Medical Decision Making - Medical Decision Making Is a 72-year-old male presenting with chief complaint of shortness of breath. Patient is suspected to have a low hemoglobin by his home care nurse. Patient has history of GI bleed. On physical examination no wheezing is noted on auscultation, patient is on 2 L nasal cannula. Lab work shows hemoglobin 7.5 which is consistent with his baseline. Stool call is positive. Troponin is elevated at 0.067, however he has a history of chronically elevated troponins. Chest x-ray shows evidence of fluid overload, shortness of breath likely treated for CHF exacerbation. Patient is given 40 mg of Lasix. He is continuing to be short of breath and nasal cannula, will initiate BiPAP. I spoke with Dr. Scruggs from [facility] who accepted transfer for GI services. Patient is agreeable with this plan. I discussed this case with my attending Dr. Ma. Afterwards patient was found to have potassium of 6.3 calcium of 16.2. He is given albuterol and insulin with dextrose. BNP is found to be 20,700. Was pt. sent in by a medical professional or institution (, PA, DIRECTOR OF STRATEGIC PARTNERSHIPS, urgent care, hospital, or longterm...) When possible be specific @ -Home care nurse Did you speak to anyone other than the patient for history (EMS, parent, family, police, friend...)? What history was obtained from this source @ -No Did you review nursing and triage notes (agree or disagree)? Why? @ -I reviewed and agree with nursing and triage notes Were old charts reviewed (outside hosp., previous admission, EMS record, old EKG, old radiological studies, urgent care reports/EKG's, longterm records)? Report findings @ -No old charts were reviewed Differential Diagnosis (chest pain, altered mental status, abdominal pain women, abdominal pain men, vaginal bleeding, weakness, fever, dyspnea, syncope, headache, dizziness, GI bleed, back pain, seizure, CVA, palpatations, mental health, musculoskeletal)? @ -[facility] Differential Dyspnea: Coronary syndrome, arrhythmia, tamponade, asthma, COPD, pulmonary embolism, pneumonia, pneumothorax, pulmonary effusion, anaphylaxis, diabetic ketoacidosis, flailed chest, pulmonary contusion, diaphragmatic rupture, anemia, neuromuscular this is not meant to be an all-inclusive list. EKG interpreted by me (3pts min.). @ -As above X-rays interpreted by me (1pt min.). @ -Chest x-ray interpreted by me shows evidence of fluid overload, likely CHF exacerbation CT interpreted by me (1pt min.). @ -None done U/S interpreted by me (1pt. min.). @ -None done What testing was considered but not performed or refused? (CT, X-rays, U/S, labs)? Why? @ -None What meds were considered but not given or refused? Why? @ -None Did you discuss the management of the patient with other professionals (professionals i.e. , PA, DIRECTOR OF STRATEGIC PARTNERSHIPS, lab, RT, psych nurse, health and social care teacher, schedule announcer, teacher, mobile patrol officer, child welfare caseworker)? Give summary @ -Discussed the case with Dr. Scruggs at [facility], who accepted transfer Was smoking cessation discussed for >3mins.? @ -No Was critical care preformed (if so, how long)? @ -No Were there social determinants of health that impacted care today? How? (Homelessness, low income, unemployed, alcoholism, drug addiction, transportation, low edu. Level, literacy, decrease access to med. care, prison, rehab)? @ -No Was there de-escalation of care discussed even if they declined (Discuss DNR or withdrawal of care, Hospice)? DNR status @ -No What co-morbidities impacted this encounter? (DM, HTN, Smoking, COPD, CAD, Cancer, CVA, ARF, Chemo, Hep., AIDS, mental health diagnosis, sleep apnea, morbid obesity)? @ -None Was patient admitted / discharged? Hospital course, mention meds given and route, prescriptions, significant lab abnormalities, going to OR and other pert inent info. @ -Transferred, See above Undiagnosed new problem with uncertain prognosis? @ -No Drug Therapy requiring intensive monitoring for toxicity (Heparin, Nitro, Insulin, Cardizem)? @ -No Were any procedures done? @ -No Diagnosis/symptom? @ -GI bleed Acute, or Chronic, or Acute on Chronic? @ -Acute Uncomplicated (without systemic symptoms) or Complicated (systemic symptoms)? @ -Complicated Side effects of treatment? @ -No Exacerbation, Progression, or Severe Exacerbation? @ -No Poses a threat to life or bodily function? How? (Chest pain, [place], [place], pneumonia, PE, COPD, DKA, ARF, appy, cholecystitis, CVA, Diverticulitis, Homicidal, Suicidal, threat to staff... and all critical care pts) @ -Yes, can lead to to hypoperfusion and endorgan damage Diagnosis/symptom? @CHF Acute, or Chronic, or Acute on Chronic? @Acute on chronic Uncomplicated (without systemic symptoms) or Complicated (systemic symptoms)? @Complicated Side effects of treatment? @ none Exacerbation, Progression, or Severe Exacerbation] @Exacerbation Poses a threat to life or bodily function? @ no - Lab Data Result diagrams: 09/23/22 01:26 09/23/22 01:26 Lab Results 09/23/22 09/23/22 09/23/22 Range/Units 01:15 01:26 01:26 WBC 11.0 H (3.8-10.6) k/uL RBC 2.42 L (4.30-5.90) m/uL Hgb 7.5 L (13.0-17.5) gm/dL Hct 23.2 L (39.0-53.0) % MCV 95.9 (80.0-100.0) fL MCH 31.2 (25.0-35.0) pg MCHC 32.5 (31.0-37.0) g/dL RDW 15.5 (11.5-15.5) % Plt Count 222 (150-450) k/uL MPV 8.4 Neutrophils % 87 % Lymphocytes % 4 % Monocytes % 7 % Eosinophils % 1 % Basophils % 0 % Neutrophils # 9.6 H (1.3-7.7) k/uL Lymphocytes # 0.4 L (1.0-4.8) k/uL Monocytes # 0.8 (0-1.0) k/uL Eosinophils # 0.1 (0-0.7) k/uL Basophils # 0.0 (0-0.2) k/uL Hypochromasia Slight PT 11.1 (9.0-12.0) sec INR 1.1 (<1.2) APTT 18.0 L (22.0-30.0) sec Sodium (137-145) mmol/L Potassium (3.5-5.1) mmol/L Chloride (98-107) mmol/L Carbon Dioxide (22-30) mmol/L Anion Gap mmol/L BUN (9-20) mg/dL Creatinine (0.66-1.25) mg/dL Est GFR (CKD-EPI)AfAm (>60 ml/min/1.73 sqM) Est GFR (CKD-EPI)NonAf (>60 ml/min/1.73 sqM) Glucose (74-99) mg/dL Plasma Lactic Acid Nahum (0.7-2.0) mmol/L Calcium (8.4-10.2) mg/dL Magnesium (1.6-2.3) mg/dL Total Bilirubin (0.2-1.3) mg/dL AST (17-59) U/L ALT (4-49) U/L Alkaline Phosphatase (38-126) U/L Troponin I (0.000-0.034) ng/mL NT-Pro-B Natriuret Pep pg/mL Total Protein (6.3-8.2) g/dL Albumin (3.5-5.0) g/dL Stool Occult Blood (Negative) Blood Type A Positive Blood Type Recheck A Pos Bld Type Recheck Status No Antibody Screen NEGATIVE Spec Expiration Date 09/26/2022 - 232909/23/22 09/23/22 09/23/22 Range/Units 01:26 01:26 01:26 WBC (3.8-10.6) k/uL RBC (4.30-5.90) m/uL Hgb (13.0-17.5) gm/dL Hct (39.0-53.0) % MCV (80.0-100.0) fL MCH (25.0-35.0) pg MCHC (31.0-37.0) g/dL RDW (11.5-15.5) % Plt Count (150-450) k/uL MPV Neutrophils % % Lymphocytes % % Monocytes % % Eosinophils % % Basophils % % Neutrophils # (1.3-7.7) k/uL Lymphocytes # (1.0-4.8) k/uL Monocytes # (0-1.0) k/uL Eosinophils # (0-0.7) k/uL Basophils # (0-0.2) k/uL Hypochromasia PT (9.0-12.0) sec INR (<1.2) APTT (22.0-30.0) sec Sodium 137 (137-145) mmol/L Potassium 6.3 H* (3.5-5.1) mmol/L Chloride 101 (98-107) mmol/L Carbon Dioxide 28 (22-30) mmol/L Anion Gap 8 mmol/L BUN 99 H (9-20) mg/dL Creatinine 5.97 H (0.66-1.25) mg/dL Est GFR (CKD-EPI)AfAm 10 (>60 ml/min/1.73 sqM) Est GFR (CKD-EPI)NonAf 9 (>60 ml/min/1.73 sqM) Glucose 127 H (74-99) mg/dL Plasma Lactic Acid Nahum 1.2 (0.7-2.0) mmol/L Calcium 16.2 H* (8.4-10.2) mg/dL Magnesium 3.3 H (1.6-2.3) mg/dL Total Bilirubin 0.5 (0.2-1.3) mg/dL AST 45 (17-59) U/L ALT 24 (4-49) U/L Alkaline Phosphatase 34 L (38-126) U/L Troponin I 0.067 H* (0.000-0.034) ng/mL NT-Pro-B Natriuret Pep pg/mL Total Protein 6.4 (6.3-8.2) g/dL Albumin 3.9 (3.5-5.0) g/dL Stool Occult Blood (Negative) Blood Type Blood Type Recheck Bld Type Recheck Status Antibody Screen Spec Expiration Date 09/23/22 09/23/22 Range/Units 01:26 03:15 WBC (3.8-10.6) k/uL RBC (4.30-5.90) m/uL Hgb (13.0-17.5) gm/dL Hct (39.0-53.0) % MCV (80.0-100.0) fL MCH (25.0-35.0) pg MCHC (31.0-37.0) g/dL RDW (11.5-15.5) % Plt Count (150-450) k/uL MPV Neutrophils % % Lymphocytes % % Monocytes % % Eosinophils % % Basophils % % Neutrophils # (1.3-7.7) k/uL Lymphocytes # (1.0-4.8) k/uL Monocytes # (0-1.0) k/uL Eosinophils # (0-0.7) k/uL Basophils # (0-0.2) k/uL Hypochromasia PT (9.0-12.0) sec INR (<1.2) APTT (22.0-30.0) sec Sodium (137-145) mmol/L Potassium (3.5-5.1) mmol/L Chloride (98-107) mmol/L Carbon Dioxide (22-30) mmol/L Anion Gap mmol/L BUN (9-20) mg/dL Creatinine (0.66-1.25) mg/dL Est GFR (CKD-EPI)AfAm (>60 ml/min/1.73 sqM) Est GFR (CKD-EPI)NonAf (>60 ml/min/1.73 sqM) Glucose (74-99) mg/dL Plasma Lactic Acid N[place]um (0.7-2.0) mmol/L Calcium (8.4-10.2) mg/dL Magnesium (1.6-2.3) mg/dL Total Bilirubin (0.2-1.3) mg/dL AST (17-59) U/L ALT (4-49) U/L Alkaline Phosphatase (38-126) U/L Troponin I (0.000-0.034) ng/mL NT-Pro-B Natriuret Pep 03766 pg/mL Total Protein (6.3-8.2) g/dL Albumin (3.5-5.0) g/dL Stool Occult Blood Positive (Negative) Blood Type Blood Type Recheck Bld Type Recheck Status Antibody Screen Spec Expiration Date Disposition Clinical Impression: CHF (congestive heart failure), GI bleed Disposition: OTHER INSTITUTION NOT DEFINED Condition: Fair Referrals: Clyde Leal DO [Primary Care Provider] - 1-2 days Time of Disposition: 03:12 - Out of Hospital Transfer - Req. Specs Out of Hospital Transfer - Requested Specifics: Other Emergency Center ([facility])
[2022-09-23 01:45] LABS: Basophils % (A) 0 %; Eosinophils # (A) 0.1 k/uL (0-0.7); Eosinophils % (A) 1 %; HCT 23.2 % (39.0-53.0); HGB 7.5 gm/dL (13.0-17.5); Hypochromasia Slight; Lymphocytes # (A) 0.4 k/uL (1.0-4.8); Lymphocytes % (A) 4 %; MCH 31.2 pg (25.0-35.0); MCHC 32.5 g/dL (31.0-37.0); MCV 95.9 fL (80.0-100.0); Mean Platelet Volume 8.4; Monocytes # (A) 0.8 k/uL (0-1.0); Monocytes % (A) 7 %; Neutrophils # (A) 9.6 k/uL (1.3-7.7); Neutrophils % (A) 87 %; Platelet Count 222 k/uL (150-450); RBC 2.42 m/uL (4.30-5.90); RDW 15.5 % (11.5-15.5)
[2022-09-23 01:58] LABS: INR 1.1 (<1.2); Prothrombin Time 11.1 sec (9.0-12.0)
[2022-09-23] MEDS ORDERED: FUROSEMIDE 10 MG/ML 4 ML VIAL IV STA (02:57)
[2022-09-23] MEDS ORDERED: IPRATROPIUM-ALBUTEROL 3 ML NEB INHALATION STA (03:12)
[2022-09-23 03:15] LABS: Albumin 3.9 g/dL (3.5-5.0); Magnesium 3.3 mg/dL (1.6-2.3); Total Bilirubin 0.5 mg/dL (0.2-1.3); Total Protein 6.4 g/dL (6.3-8.2)
[2022-09-23 03:24] LABS: Calcium 16.2 mg/dL (8.4-10.2); Potassium 6.3 mmol/L (3.5-5.1)
[2022-09-23] MEDS ORDERED: INSULIN REGULAR 100 UNIT/ML VIAL (IV) IV ONE (03:28)
[2022-09-23] MEDS ORDERED: DEXTROSE 50% SYRINGE 50 ML IVP ONE (03:28)
[2022-09-23] MEDS ORDERED: ALBUTEROL NEB (CONC) 2.5 MG/0.5 ML INHALATION ONE (03:28)
[2022-09-23] MEDS: CALCIUM GLUCONATE IN NACL 1 GM in SALINE 1 100ML.BAG IVPB ONE ×2 (03:42→03:52)
[2022-09-23 04:54] VITALS: BP 114/57; PULSE 74; RESP 18
--- NOTE | 2022-09-23 05:59 | XR ---
EXAM: XR Chest, 1 View CLINICAL HISTORY: ITS.REASON XR Reason: pain TECHNIQUE: Frontal view of the chest. COMPARISON: XR Chest dated 08/24/22 FINDINGS: Lungs: Central vascular congestion, interstitial thickening and bibasilar opacities. Increased since the prior. Pleural space: Bilateral small to moderate pleural effusions, mildly increased. No pneumothorax. Heart: Cardiomegaly similar/mildly increased. Prosthetic heart valve. Mediastinum: Unremarkable. Bones/joints: Median sternotomy wires. IMPRESSION: 1. Findings likely pulmonary edema, increased since the prior. 2. Bilateral small to moderate pleural effusions, mildly increased.
== END 2022-09-23 04:54 | disposition other institution (70) ==
LOC: EC 00:36
DX: I11.0 Hypertensive heart disease with heart failure (principal); I50.9 Heart failure, unspecified; K92.2 Gastrointestinal hemorrhage, unspecified; E11.9 Type 2 diabetes mellitus without complications; I25.2 Old myocardial infarction; J44.9 Chronic obstructive pulmonary disease, unspecified; E78.5 Hyperlipidemia, unspecified; F17.200 Nicotine dependence, unspecified, uncomplicated; Z79.4 Long term (current) use of insulin; Z79.82 Long term (current) use of aspirin; Z79.899 Other long term (current) drug therapy; Z95.5 Presence of coronary angioplasty implant and graft; Z88.8 Allergy status to other drugs, medicaments and biological substances
CPT/HCPCS: 36415; 94660; 94640; 93005; 86900; 86901; 83880; 80053; 83605; 83735; 84484; 85025; 85610; 85730; 86850; 82272; 71045; 99285; 96374; 96375; J1940

== ENCOUNTER 2022-11-07 10:42 | Day surgery (SDC) | payer MEDICARE ==
[~2022-11-07 10:42] MED LIST changes: -ALBUMIN HUMAN 25% 50 ML IV ONE; -ALBUMIN HUMAN 5% 500 ML IVPB ONE; -ASPIRIN 325 MG TAB PO ONE; -ATORVASTATIN 10 MG TAB PO ONE; -CALCIUM CHLORIDE 100 MG/ML 10 ML SYRINGE IV ONE; -CARDIOPLEGIC SOLN (K+ 16 MEQ/L 1,000 ML with SODIUM BICARB (1 MEQ/ML) 20 ML, LIDOCAINE ... PERFUSION ONE; -CHLORHEXIDINE GLUCONATE 15 ML CUP MUCOUS MEM ONE; -CLEVIDIPINE BUTYRATE 25 MG in EMPTY BAG 1 BAG IV ONE; -HEPARIN SODIUM 1,000 UN/ML (10ML VL) IV ONE; -HEPARIN SODIUM,PORCINE 5,000 UNIT in SODIUM CHLORIDE 0.9% 500 ML 500 ML IV ONE; -INSULIN REGULAR 100 UNIT in SODIUM CHLORIDE 0.9% 100 ML IV ONE; -LACTATED RINGERS 1,000 ML IV ONE; -MAGNESIUM SULFATE 16.24 MEQ in EMPTY SYRINGE 1 SYR IV ONE; -MANNITOL 25% 12.5 GM/50 ML VIAL IV ONE; -METOPROLOL TARTRATE 12.5 MG TAB PO ONE; -NITROGLYCERIN SL TABS 0.4 MG TAB SUBLINGUAL ONE; -NITROGLYCERIN-D5W PMX 25 MG/250 ML BTL IV ONE; -NITROGLYCERIN-D5W PMX 50 MG in DEXTROSE/WATER 1 250ML.BAG IV ONE; -NOREPINEPHRINE 4 MG in SODIUM CHLORIDE 0.9% 250 ML IV ONE; -PAPAVERINE 360 MG in SODIUM CHLORIDE 0.9% 90 ML IV ONE; -PHENYLEPHRINE 10 MG/ML VIAL IV ONE; -PHENYLEPHRINE 40 MG in SODIUM CHLORIDE 0.9% 250 ML IV ONE; -PROTAMINE SULFATE 10 MG/ML 25 ML VIAL IV ONE; -PROTAMINE SULFATE 250 MG in EMPTY BAG 1 BAG IV ONE; -SODIUM BICARB 8.4% 50 ML SYR (1 MEQ/ML) IV ONE; -SODIUM CHLORIDE 0.9% 1,000 ML IV ONE; +SODIUM CHLORIDE 0.9% 500 ML 500 ML in EMPTY BAG 1 BAG IV PRN; -TRANEXAMIC ACID 2,000 MG in SODIUM CHLORIDE 0.9% 80 ML IV ONE; -ceFAZolin 1,000 MG in SODIUM CHLORIDE 0.9% IRRIGATIO 1,000 ML IRRIGATION ONE; -propofoL 1,000 MG/100 ML VIAL IV ONE
[2022-11-07 11:37] VITALS: RESP 16; TEMP 97.5
--- NOTE | 2022-11-07 12:12 | XR ---
EXAMINATION TYPE: XR chest 1V portable DATE OF EXAM: 11/07/2022 COMPARISON: Chest x-ray September 23, 2022. Most recent x-ray November 02, 2022 HISTORY: Left pleural effusion status post left thoracentesis TECHNIQUE: Single frontal view of the chest is obtained. FINDINGS: Stable right internal jugular large-bore dialysis catheter. Improved left-sided pleural ef fusion after thoracentesis. No pneumothorax is evident. Bibasilar opacities redemonstrated consistent with acute infiltrate and/or atelectasis. Cardiomegaly redemonstrated. Overlying sternal wires are redemonstrated. Cardiac valve surgical changes again seen . Metallic anchors right humeral head and single anchor left humeral head are redemonstrated. IMPRESSION: As above.
[2022-11-07 12:53] VITALS: BP 107/67; PULSE 64
== END 2022-11-07 12:25 | disposition home or self-care (01) ==
LOC: PROCWHC3 10:42
PROVIDERS: ATTEND Internal Medicine
DX: J90 Pleural effusion, not elsewhere classified (principal); I48.91 Unspecified atrial fibrillation; I25.2 Old myocardial infarction; J44.9 Chronic obstructive pulmonary disease, unspecified; I10 Essential (primary) hypertension; E11.9 Type 2 diabetes mellitus without complications; E78.5 Hyperlipidemia, unspecified; K76.9 Liver disease, unspecified; E27.9 Disorder of adrenal gland, unspecified; M10.9 Gout, unspecified; E66.9 Obesity, unspecified; F17.200 Nicotine dependence, unspecified, uncomplicated; Z68.25 Body mass index [BMI] 25.0-25.9, adult; Z79.51 Long term (current) use of inhaled steroids; Z79.84 Long term (current) use of oral hypoglycemic drugs; Z79.899 Other long term (current) drug therapy; Z79.85 Long-term (current) use of injectable non-insulin antidiabetic drugs
CPT/HCPCS: 32554; 71045

== ENCOUNTER → 2022-11-07 | Outpatient (CLI) | payer MEDICARE ==
--- NOTE | 2022-11-07 11:28 | US ---
EXAMINATION TYPE: US chest DATE OF EXAM: 11/07/2022 COMPARISON: Chest radiograph 09/23/2022, CT chest 05/25/2022. CLINICAL INDICATION: Male, 72 years old with history of J90 PLEURAL EFFUSION; TECHNIQUE: Targeted ultrasound of the posterior lower bilateral hemithoraces EXAM MEASUREMENTS: Left Pleural Effusion pocket size: 8.7 cm Left skin surface to fluid distance: 3.2 cm Right side NOT marked for possible thoracentesis outside the dept. Left side marked for possible thoracentesis outside the dept. Pulmonologists are able to review the images in the patient?s EMR. IMPRESSIONS: 1. Moderate-sized left pleural effusion. 2. No right pleural effusion.
--- NOTE | 2022-11-07 12:40 | P.PCN ---
Date of Procedure: 11/07/22 Description of Procedure: Indication: Pleural effusion. Left sided. A time-out was completed verifying correct patient, procedure, site, positioning, and implant (s) or special equipment if applicable. Ultrasound guidance [was] used and appropriate fluid pocket was identified and marked. Patient was positioned, prepped and draped in usual sterile fashion. Lidocaine was used to anesthetize the area. A Thoracentesis catheter was introduced into the pleural space and fluid was removed. Blood loss was none. A chest x-ray was ordered to evaluate for pneumothorax., No evidence of pneumothorax post procedure. Total Fluid Removed: 850 mL of serosanguineous fluid [] Color of Fluid: Serosanguineous[] Fluid [was not] sent for appropriate laboratory tests. Fluid was not sent mostly because it was sent previously. Patient tolerated the procedure well and there were no complications.
== END | disposition home or self-care (01) ==
LOC: RADUSWWP 11:06
PROVIDERS: ATTEND Internal Medicine
DX: J90 Pleural effusion, not elsewhere classified (principal)
CPT/HCPCS: 76604

== ENCOUNTER 2022-12-24 10:44 | Day surgery (SDC) | payer MEDICARE | END 2022-12-24 15:27 | disposition home or self-care (01) | LOC: PROCWHC3 10:44 | PROVIDERS: ATTEND Internal Medicine | DX: J90 Pleural effusion, not elsewhere classified (principal) ==

== ENCOUNTER → 2022-12-27 | Outpatient (CLI) | payer MEDICARE ==
[2022-12-27 17:32] LABS: INR 1.2 (<1.2); Partial Thromboplastin Time 26.4 sec (22.0-30.0); Prothrombin Time 12.7 sec (9.0-12.0)
[2022-12-28 03:17] LABS: Blood Urea Nitrogen 41.7 mg/dL (9.0-27.0); Carbon Dioxide 26.1 mmol/L (21.6-31.8); Chloride 105 mmol/L (96-109); Potassium 5.5 mmol/L (3.5-5.5); Sodium 142 mmol/L (135-145)
[2022-12-28 03:31] LABS: Basophils # (A) 0.06 X 10*3/uL (0.00-0.10); Basophils % (A) 0.9 %; Eosinophils # (A) 0.12 X 10*3/uL (0.04-0.35); Eosinophils % (A) 1.8 %; HCT 34.2 % (39.6-50.0); Lymphocytes # (A) 0.43 X 10*3/uL (0.90-5.00); Lymphocytes % (A) 6.4 %; MCH 28.9 pg (27.0-32.0); MCHC 29.2 d/dL (32.0-37.0); MCV 98.8 FL (80.0-97.0); Monocytes # (A) 0.83 X 10*3/uL (0.20-1.00); Monocytes % (A) 12.4 %; NRBC Per 100 WBC 0 X 10*3/uL (0.00-0.01); Neutrophils # (A) 5.23 X 10*3/uL (1.80-7.70); Neutrophils % (A) 77.9 %; Platelet Count 256 X 10*3/uL (140-440); RBC 3.46 X 10*6/uL (4.40-5.60); WBC 6.71 X 10*3/uL (4.50-10.00)
== END | disposition home or self-care (01) ==
LOC: LABPAT 15:30
PROVIDERS: ATTEND Thoracic Surgery (Cardiothoracic Vascular Surgery)
DX: Z01.812 Encounter for preprocedural laboratory examination (principal); J90 Pleural effusion, not elsewhere classified
CPT/HCPCS: 80051; 82565; 84520; 85025; 85610; 85730

== ENCOUNTER 2023-01-02 07:37 | Inpatient (IN) | payer MEDICARE ==
[2023-01-02 08:23] LABS: Glucose,Whole Blood 118 mg/dL (70-110)
[2023-01-02] MEDS ORDERED: LACTATED RINGERS 1,000 ML IV ONE ×2 (08:33→11:36)
[2023-01-02] MEDS ORDERED: ONDANSETRON 4 MG/2 ML VIAL ONE (08:37)
[2023-01-02] MEDS ORDERED: ONDANSETRON 4 MG/2 ML VIAL IVP ONE (08:48)
[2023-01-02] MEDS ORDERED: GLYCOPYRROLATE 0.2 MG/ML 2 ML VIAL ONE (09:01)
[2023-01-02] MEDS ORDERED: ROCURONIUM 10 MG/ML (5 ML VIAL) IV ONE (09:01)
[2023-01-02] MEDS ORDERED: PHENYLEPHRINE-0.9% NACL SYG 1,000 MCG/10 ML SYRINGE ONE (09:01)
[2023-01-02] MEDS ORDERED: LIDOCAINE 2% INJ 20 MG/ML (2 ML VIAL) ONE (09:01)
[2023-01-02] MEDS ORDERED: MIDAZOLAM 2 MG/2 ML VIAL ONE (09:01)
[2023-01-02] MEDS ORDERED: PROPOFOL 10 MG/ML 20 ML VIAL IV ONE (09:01)
[2023-01-02] MEDS ORDERED: NEOSTIGMINE 1 MG/ML 10 ML VIAL ONE (09:01)
[2023-01-02] MEDS ORDERED: fentaNYL (PF) 50 MCG/ML 2 ML AMP ONE (09:01)
[2023-01-02] MEDS ORDERED: BUPIVACAINE (PF) 0.5% 30 ML VIAL SQ ONE ×2 (09:49)
--- NOTE | 2023-01-02 10:58 | XR ---
EXAMINATION TYPE: XR chest 1V portable DATE OF EXAM: 01/02/2023 10:39 AM COMPARISON: Chest radiographs from 11/07/2022 TECHNIQUE: XR chest 1V portable Portable AP radiograph of the chest. CLINICAL INDICATION:Male, 72 years old with history of post VATS; FINDINGS: Lungs/Pleura: Small bilateral pleural effusions with bibasilar patchy airspace opacities. Pulmonary vascularity: Unremarkable. Heart/mediastinum: Cardiomediastinal silhouette is enlarged and stable. Valvular prosthesis. Musculoskeletal: Multiple level degenerative disc disease changes seen throughout the spine. Midline sternotomy wires are noted and stable. Orthopedic anchors within the right humeral head. Other: Left-sided Pleurx catheter placement. Trace left apical pneumothorax. IMPRESSION: 1. Status post left-sided Pleurx catheter placement with trace left apical pneumothorax. 2. Small bilateral pleural effusions with bibasilar patchy airspace opacities.
[2023-01-02 11:15] LABS: Glucose,Whole Blood 111 mg/dL (70-110)
--- NOTE | 2023-01-02 11:35 | P.OP ---
Date of Procedure: 01/02/23 Preoperative Diagnosis: Recurrent left pleural effusion, loculated Postoperative Diagnosis: Same Procedure(s) Performed: Left thoracoscopy with partial decortication left lung and placement of left Pleurx catheter Implants: Left Pleurx catheter Anesthesia: SOFIA Surgeon: Hai Raines Estimated Blood Loss (ml): 3 IV fluids (ml): 500 Pathology: other (Left pleural fluid for cytology and culture, left pleural content for path) Condition: stable Disposition: PACU Indications for Procedure: 72-year-old male who is approximately 9 months status post atrial valve repair and coronary bypass grafting. He had a long complicated postoperative course. He has had recurrent left pleural effusion. Most recently he was sent for ultrasound-guided drainage but this was not performed as the radiologist felt that the fluid was loculated. The patient was referred to me. I reviewed the chest x-ray and previous computed tomography scan and ultrasound. I felt the best treatment would be Pleurx catheter however he felt it appropriate to also thoracoscope patient under sure there was not significant collection that was loculated in the left pleural space. Operative Findings: There was a large amount of soft inflammatory material present in the left inferior and posterior pleural space along with if he can loculated serous fluid. Complete clearing of the pleural space was accomplished. Description of Procedure: Patient was brought to the operating room placed supine on the operating table. Gen. anesthesia was induced and the patient was intubated with a single-lumen en dotracheal tube. The anterior and lateral lower chest and upper abdomen were sterilely prepped and draped on the left. Incision was made in the seventh interspace in the midaxillary line and carried into the pleural space. Immediate serous fluid drained and this was collected for cytology. Video thoracoscope was placed and there was noted to be a large amount of inflammatory material throughout the posterior inferior pleural space. The lung was adherent outside of this cavity. Under thoracoscopic visualization free portion of the pleural space was cleared of inflammatory material and this was sent for pathology. We then placed a Pleurx catheter separate stab incision anteriorly into the pleural space and tunneled it out onto the left upper quadrant. The cuff was left beneath the skin at the exit point. This catheter was secured here with 2-0 silk. The enteroscope site was closed with a 4-0 Vicryl suture. Cor thoracoscopic Metz site was closed with 2-0 Vicryl deep and 4-0 Vicryl and skin. Skin glue was applied at the 2 suture sites and drain sponge dressing applied at the exit of the Pleurx catheter. Pleurx catheter was connected to a Thora vent. This was placed to suction. Dry sterile dressings were applied and the patient was transferred to recovery where a chest x-ray demonstrated excellent reexpansion of the lung with complete drainage of pleural fluid and no evidence of pneumothorax.
[2023-01-02] MEDS ORDERED: ONDANSETRON 4 MG/2 ML VIAL IVP PRN (12:05)
[2023-01-02] MEDS ORDERED: ALBUTEROL NEBULIZED 2.5 MG/3 ML INHALATION PRN (12:05)
[2023-01-02] MEDS ORDERED: DEXTROSE 50% SYRINGE 50 ML IVP PRN ×2 (12:05)
[2023-01-02] MEDS ORDERED: bisacodyL 10 MG SUPP RECTAL PRN (12:05)
--- NOTE | 2023-01-02 16:13 | P.CNPUL ---
History of Present Illness Consult date: 01/02/23 Reason for consult: pleural effusion History of present illness: This patient has a chronic recurrent left-sided pleural effusion/loculated and i t developed following a previous coronary artery bypass surgery, in addition to mitral valve repair and closure of a patent foramen ovale From April 2023. The patient along, treated postoperative course and the patient has recurrent left-sided pleural effusion. The patient has undergone previous ultrasound- guided thoracentesis. Based on that, the patient underwent a thoracoscopy today. The patient underwent a left thoracoscopy with partial decortication of the left lung and placement of a Pleurx catheter. Intraoperatively, the patient was found to have a large amount of inflammatory material throughout the left posterior inferior pleural space. The pleural lining was biopsied. The postop chest x-ray shows adequate expansion of the left lung. There may be a very tiny left apical pneumothorax. Pleurx catheter is in a good location. For now, the patient on 2 L of oxygen by nasal cannula with a pulse ox of 98%. The patient is hemodynamically stable. The patient is using the incentive spirometer. The patient was placed on DuoNeb nebulized treatments and Symbicort. The patient is currently on IV cefazolin. The patient is on subcu heparin for DVT prophylaxis. The patient is also on Tylenol for pain control. The patient is known to have multiple medical pounds and comorbidities as listed in my assessment and plan. Noted the patient has undergone previous thoracentesis of the left sided pleural effusion. Cytology has not been sent. Based on the LDH and protein criteria, the fluid seems to more so on the transplant. Review of Systems Constitutional: Denies chills, Denies fever Eyes: denies as per HPI, denies blurred vision, denies bulging eye, denies decreased vision, denies diplopia, denies discharge, denies dry eye, denies irritation, denies itching, denies pain, denies photophobia, denies loss of peripheral vision, denies loss of vision, denies tunnel vision/blind spots Ears: deny: decreased hearing, ear discharge, earache, tinnitus Ears, nose, mouth and throat: Reports as per HPI Breasts: absent: as per HPI, gynecomastia Cardiovascular: Reports decreased exercise tolerance, Reports dyspnea on exertion Respiratory: Reports dyspnea Gastrointestinal: Reports as per HPI Genitourinary: Reports as per HPI Musculoskeletal: Reports as per HPI Musculoskeletal: absent: ankle pain, ankle stiffness, ankle swelling Integumentary: Reports as per HPI Neurological: Reports as per HPI Psychiatric: Reports as per HPI Endocrine: Reports as per HPI Hematologic/Lymphatic: Reports as per HPI Allergic/Immunologic: Reports as per HPI Past Medical History Past Medical History: Atrial Fibrillation, Coronary Artery Disease (CAD), COPD, Diabetes Mellitus, GI Bleed, Hearing Disorder / Deafness, Hyperlipidemia, Hypertension, Myocardial Infarction (MD), Renal Disease Additional Past Medical History / Comment(s): Previous bypass surgery, previous repair of the mitral valve, comp to get postoperative course requiring dialysis for renal failure and the patient also developed GI bleed requiring blood transfusions recent significant developed a chronic loculated left-sided pleural effusion. Other comorbidities include COPD, chronic systolic heart failure with an ejection fraction 4045%, hypertension, hyperlipidemia, paroxysmal A. fib Last Myocardial Infarction Date:: 11/2021 History of Any Multi-Drug Resistant Organisms: None Reported Past Surgical History: Back Surgery, Heart Catheterization With Stent, Joint Replacement, Orthopedic Surgery Additional Past Surgical History / Comment(s): BILATERAL KNEE REPLACEMENTS, BILATERAL SHOULDER SURGERY, ONE CARDIAC STENT, back surgery X2 (lumbar decompression and fusion), BACK INJECTIONS, COLONOSCOPY, BILATERAL CATARACTS REMOVED WITH LENS IMPLANTS, Cardioversion. ganglion cyst rt wrist removed Past Anesthesia/Blood Transfusion Reactions: No Reported Reaction Additional Past Anesthesia/Blood Transfusion Reaction / Comment(s): no issues with blood transfusions Date of Last Stent Placement:: 2000 Smoking Status: Former smoker - Past Family History Father Family Medical History: No Reported History Mother Family Medical History: No Reported History Medications and Allergies Home Medications Medication Instructions Recorded Confirmed Type Vit C/E/Zn/Coppr/Lutein/Zeaxan 1 cap PO BID 02/19/17 12/31/22 History [Preservision Areds 2 Softgel] Fluticasone/Umeclidin/Vilanter 1 puff INHALATION RT-HS@2100 11/09/21 01/02/23 History [Trelegy Ellipta 100-62.5-25] Acetaminophen Tab [Tylenol] 650 mg PO Q6HR PRN tab 05/18/22 12/31/22 Rx bisacodyL [Dulcolax] 10 mg RECTAL DAILY PRN suppositor 05/18/22 01/02/23 Rx Aspirin 81 mg PO DAILY 05/19/22 12/31/22 History Metoprolol Tartrate [Lopressor] 25 mg PO DAILY 05/19/22 01/02/23 History Furosemide [Lasix] 40 mg PO BID 30 Days #60 tablet 05/30/22 12/31/22 Rx Liraglutide [Victoza 3-Casey] 1.8 mg INJ DAILY 10/17/22 12/31/22 History Atorvastatin [Lipitor] 80 mg PO HS 11/07/22 12/31/22 History Cholecalciferol (Vitamin D3) 1,250 mcg PO DAILY 11/07/22 12/31/22 History [Vitamin D3] Empagliflozin [Jardiance] 10 mg PO DAILY 11/07/22 12/31/22 History Fenofibrate 160 mg PO DAILY 11/07/22 12/31/22 History Ipratropium/Albuter 20-100Mcg 1 puff INHALATION DIRECTED PRN 11/07/22 3 History [Combivent Respimat 20-100Mcg Inhaler] Multivitamins, Thera [Multivitamin 1 tab PO DAILY 11/07/22 12/31/22 History (formulary)] Pioglitazone [Actos] 15 mg PO DAILY 11/07/22 12/31/22 History Allergies Allergy/AdvReac Type Severity Reaction Status Date / Time protamine Allergy Anaphylaxis Verified 01/02/23 07:55 dapagliflozin [From [facility]] AdvReac Itching Verified 01/02/23 07:55 Physical Exam Vitals: Vital Signs Temp Pulse Resp BP BP Pulse Ox 01/02/23 13:53 76 16 122/62 98 01/02/23 13:23 77 16 113/64 98 01/02/23 12:53 76 18 116/60 99 01/02/23 12:23 72 18 116/67 98 01/02/23 11:53 73 18 117/58 98 01/02/23 11:38 70 16 114/56 98 01/02/23 11:23 71 16 119/55 100 01/02/23 11:08 70 14 126/69 99 01/02/23 10:53 69 14 122/62 137/57 99 01/02/23 10:38 79 14 130/78 138/54 98 01/02/23 10:23 68 14 118/73 130/51 99 01/02/23 10:08 97.6 F 64 14 124/73 114/52 99 01/02/23 08:05 97.5 F L 78 18 132/62 94 L Intake and Output 01/01/23 01/02/23 01/02/23 22:59 06:59 14:59 Intake Total 1180 Output Total 303 Balance 877 Intake: IV 1180 Output: Pleural Fluid 300 Estimated Blood Loss 3 Other: Weight 75.3 kg Results - Laboratory Findings CBC and BMP: 01/02/23 09:00 Abnormal lab findings: Abnormal Labs 01/02/23 01/02/23 08:18 11:13 POC Glucose (mg/dL) 118 H 111 H Assessment and Plan Plan: Recurrent left-sided pleural effusion postthoracotomy and cardiac surgery. The patient has undergone previous thoracentesis in the pleural fluid was e ssentially loculated with a negative cytology. The patient underwent a thoracoscopy/decortication, insertion Pleurx catheter and pleural biopsy. The patient is currently postop day #0. The patient is currently on 2 L of Oxymizer nasal cannula Coronary artery disease with previous 2 vessel bypass surgery Previous history of mitral valve repair Previous history of patent foramen ovale closure Hypertension Hyperlipidemia Diabetes mellitus type 2 Paroxysmal A. fib Chronic systolic heart failure, ejection fraction is noted to 40-45% COPD, with an FEV1 of 41%, maintained on Trelegy Ellipta on outpatient basis Osteoarthritis Chronic back pain Chronic kidney disease Plan Incentive spirometer Pain control IV cefazolin Allow the patient to use his Trelegy Ellipta from home Monitor chest x-ray findings Continue oral Lasix Continue Toprol 25 mg by mouth daily Continue lactulose Insulin sliding scale coverage Continue aspirin and Lipitor We'll follow
[2023-01-02] MEDS: HEPARIN SODIUM,PORCINE/PF 5,000 UNIT/0.5 ML SYRINGE SQ SCH ×2 (16:14→23:28)
[2023-01-02] MEDS: FUROSEMIDE 40 MG TAB PO SCH (16:22)
[2023-01-02 16:35] LABS: Glucose,Whole Blood 146 mg/dL (70-110)
[2023-01-02] MEDS: IPRATROPIUM 0.5 MG/2.5 ML NEBU INHALATION SCH ×2 (16:37→20:43)
[2023-01-02] MEDS: INSULIN ASPART (NovoLOG) 100 UNIT/ML VIAL SQ SCH ×2 (16:50→21:03)
[2023-01-02 20:22] LABS: Glucose,Whole Blood 263 mg/dL (70-110)
[2023-01-02] MEDS: SYMBICORT 80-4.5 MCG INHALER INHALATION SCH (20:43)
[2023-01-02] MEDS ORDERED: ATORVASTATIN 80 MG TAB PO SCH (21:00)
[2023-01-02] MEDS: VIT A,C & E-LUTEIN-MINERALS 1 EACH TAB PO SCH (21:03)
[2023-01-02] MEDS: ACETAMINOPHEN TAB 325 MG TAB PO PRN (22:24)
[2023-01-03] MEDS: ACETAMINOPHEN TAB 325 MG TAB PO PRN (03:01)
[2023-01-03 06:20] LABS: Glucose,Whole Blood 131 mg/dL (70-110)
[2023-01-03] MEDS: INSULIN ASPART (NovoLOG) 100 UNIT/ML VIAL SQ SCH ×2 (06:39→12:07)
[2023-01-03] MEDS ORDERED: ACETAMINOPHEN TAB 500 MG TAB PO PRN (07:48)
--- NOTE | 2023-01-03 07:59 | XR ---
EXAMINATION TYPE: XR chest 1V DATE OF EXAM: 01/03/2023 6:57 AM COMPARISON: Chest radiographs from 01/02/2023 TECHNIQUE: XR chest 1V Frontal view of the chest. CLINICAL INDICATION:Male, 72 years old with history of post pleurx placement; FINDINGS: Lungs/Pleura: Redemonstration of small bilateral pleural effusions with bibasilar patchy airspace opa cities. Stable trace left apical pneumothorax. Pulmonary vascularity: Unremarkable. Heart/mediastinum: Cardiomediastinal silhouette is enlarged and stable. Valvular prosthesis. Musculoskeletal: Multiple level degenerative disc disease changes seen throughout the spine. Midline sternotomy wires are noted and stable. Bilateral shoulder arthropathy. Orthopedic anchors within both humeral heads. Other findings: None Lines/Tubes: Left Pleurx catheter remains in place. IMPRESSION: 1. Overall stable examination with trace left apical pneumothorax status post pleural catheter place ment. 2. Small bilateral pleural effusions with bibasilar patchy airspace opacities redemonstrated.
[2023-01-03] MEDS: FUROSEMIDE 40 MG TAB PO SCH (08:13)
[2023-01-03] MEDS: VIT A,C & E-LUTEIN-MINERALS 1 EACH TAB PO SCH (08:13)
[2023-01-03] MEDS: HEPARIN SODIUM,PORCINE/PF 5,000 UNIT/0.5 ML SYRINGE SQ SCH (08:14)
[2023-01-03] MEDS: IPRATROPIUM 0.5 MG/2.5 ML NEBU INHALATION SCH ×2 (08:23→11:59)
[2023-01-03] MEDS: SYMBICORT 80-4.5 MCG INHALER INHALATION SCH (08:23)
[2023-01-03 08:25] LABS: Anisocytosis Slight; Basophils # (A) 0.1 k/uL (0-0.2); Basophils % (A) 1 %; Eosinophils # (A) 0.2 k/uL (0-0.7); Eosinophils % (A) 3 %; HCT 35.7 % (39.0-53.0); HGB 10.5 gm/dL (13.0-17.5); Hypochromasia Marked; Lymphocytes # (A) 0.5 k/uL (1.0-4.8); Lymphocytes % (A) 7 %; MCH 29.4 pg (25.0-35.0); MCHC 29.5 g/dL (31.0-37.0); MCV 99.8 fL (80.0-100.0); Macrocytosis Slight; Mean Platelet Volume 8.6; Monocytes # (A) 0.7 k/uL (0-1.0); Monocytes % (A) 9 %; Neutrophils # (A) 6.3 k/uL (1.3-7.7); Neutrophils % (A) 79 %; Platelet Count 228 k/uL (150-450); RBC 3.58 m/uL (4.30-5.90); RDW 16.3 % (11.5-15.5)
--- NOTE | 2023-01-03 08:38 | P.PN ---
Subjective Progress Note Date: 01/03/23 Principal diagnosis: Recurrent left pleural effusion, loculated. Past medical history significant for severe mitral valve regurgitation, status post mitral valve repair 04/19/22, coronary artery disease, previous PCI, previous non-STEMI, status post CABG 3 04/19/22, paroxysmal atrial fibrillation, previous cardioversion, status post modified Castanon maze and ligation of left atrial appendage, patent foramen ovale, status post closure, chronic systolic congestive heart failure, ischemic cardiomyopathy with EF 40-45%, hypertension, hyperlipidemia, right internal carotid stenosis 50-79%, chronic blood loss anemia with history of GI bleed in November 2021 S/P transfusion PRBCs, 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 POD #1 left thoracoscopy with partial decortication left lung and placement of left Pleurx catheter The patient was seen and examined today 01/03/2023 at his bedside on the cardiac stepdown unit. Currently sitting up to bedside edge, is eating his breakfast, is awake, alert, oriented 3 and is in no acute distress. Denies any complaints of shortness of breath at this time, although is complaining of some pain to his left chest Pleurx catheter insertion site, currently rating his pain 8 out of 10 on the pain scale. Left chest Pleurx catheter remains in place and connected to Pleur-evac on continuous low wall suction -20 cm H2O. No air leak is present. Draining thin serosanguineous drainage with 740 mL output since surgery. Oxygen saturation are 97% on 1 L nasal cannula and he is achieving 1500 mL on his incentive spirometry with encouragement. Remote telemetry showing normal sinus rhythm with a bundle branch block heart rate 76 BPM. Chest x-ray was reviewed, laboratory results remain pending. Objective - Vital Signs Vital signs: Vital Signs Temp 97.6 F 01/03/23 07:50 Pulse 74 01/03/23 07:50 Resp 18 01/03/23 07:50 BP 111/67 01/03/23 07:50 Pulse Ox 92 L 01/03/23 07:50 FiO2 Intake & Output 01/02/23 01/03/23 01/03/23 18:59 06:59 18:59 Intake Total 1410 Output Total 763 1700 Balance 647 -1700 Weight 75.3 kg 76.8 kg Intake: IV 1180 Intake, IV Titration 50 Amount ceFAZolin 2 gm In Sodium 50 Chloride 0.9% 50 ml @ 100 mls/hr IVPB ONCE PRN Rx# :[id number] Oral 180 Output: Chest Tube Drainage 130 180 Chest Tube Left Anterior 130 180 Chest Drainage 130 Left Anterior Chest 130 Urine 200 1520 Pleural Fluid 300 Estimated Blood Loss 3 - Exam CONSTITUTIONAL: Appears comfortable, cooperative, no acute distress RESPIRATORY: Lungs sounds diminished to his bilateral bases with few scattered crackles. Respirations are symmetrical, nonlabored. Currently on 1 L nasal cannula with oxygen saturation 100%. Able to achieve 1500 mL on his incentive spirometry. Strong cough. CARDIOVASCULAR: S1, S2 present. Regular rate and rhythm, sinus rhythm with bun dle branch block on telemetry, heart rate 76 bpm. Palpable peripheral pulses bilaterally. No edema present. No calf pain or tenderness noted. SCDs present. GASTROINTESTINAL: Abdomen soft, nontender, nondistended. Active bowel sounds present 4 quadrants. Tolerating diet. GENITOURINARY: Continues to void clear, yellow urine. INTEGUMENTARY: Skin is warm and dry with no evidence of clubbing or cyanosis. Left thoracic incisions well approximated and covered with dry, intact dressings. NEUROLOGIC: Cranial nerves II through XII intact. No focal deficits. MUSKULOSKELETAL: Able to move all extremities, strength equal bilaterally, gait normal. PSYCHIATRIC: Alert and oriented to person place and time, appropriate affect, intact judgment and insight. INVASIVE LINES AND TUBES: Left chest proximal catheter present and connected to low continuous wall suction, no air leaks present. Draining thin serosanguineous drainage with 740 mL output since surgery. - Allied health notes Allied health notes reviewed: nursing - Labs CBC & Chem 7: 01/02/23 09:00 Labs: Abnormal Lab Results - Last 24 Hours (Table) 01/02/23 01/02/23 01/02/23 Range/Units 08:18 11:13 16:34 POC Glucose (mg/dL) 118 H 111 H 146 H (70-110) mg/dL 01/02/23 01/03/23 Range/Units 20:20 06:18 POC Glucose (mg/dL) 263 H 131 H (70-110) mg/dL - Imaging and Cardiology Chest x-ray: report reviewed, image reviewed Assessment and Plan Assessment: Recurrent left pleural effusion, loculated, status post left thoracoscopy with partial decortication left lung and placement of left Pleurx catheter Severe COPD, with an FEV1 41% predicted value Coronary artery disease with previous 2 vessel bypass surgery in April 2022 History of severe mitral valve regurgitation, status post mitral valve repair in April 2022 History of patent foramen ovale closure Hypertension Hyperlipidemia Diabetes mellitus type 2 History of paroxysmal atrial fibrillation Chronic systolic heart failure Ischemic cardiomyopathy with an ejection fraction of 40-45% Osteoarthritis Chronic back pain Chronic kidney disease History of right internal carotid artery stenosis 50-79% Chronic blood loss anemia with a history of GI bleed in November 2021 Plan: We will cap his Pleurx catheter today and review Pleurx catheter drainage instructions and Pleurx catheter care with the patient and his . Encourage use of his incentive spirometry 10 times every hour while awake. Pain control per clinic when necessary orders. Tylenol increase to 1000 mg by mouth every 6 hours when necessary pain Discharge planning is in place, anticipate discharge home within the next 24 hours with home health care. Increase activity as tolerated. Out of bed for all meals. GI and DVT prophylaxis. Continue to follow cytology results, follow-up with Dr. Aguilar in the office on 01/15/2023 and 9:45 AM. More recommendations to follow based on patient's clinical course. Time with Patient: Greater than 30
[2023-01-03 08:50] LABS: African American GFR (CKD) 53 (>60 ml/min/1.73 sqM); Anion Gap 7 mmol/L; Blood Urea Nitrogen 36 mg/dL (9-20); Calcium 8.9 mg/dL (8.4-10.2); Carbon Dioxide 27 mmol/L (22-30); Chloride 103 mmol/L (98-107); Glucose 113 mg/dL (74-99); Non-African American GFR(CKD) 45 (>60 ml/min/1.73 sqM); Potassium 4.8 mmol/L (3.5-5.1); Sodium 137 mmol/L (137-145)
[2023-01-03] MEDS ORDERED: ASPIRIN 81 MG PO SCH (09:00)
[2023-01-03] MEDS ORDERED: CHOLECALCIFEROL 125 MCG (5000 IU) TABLET PO SCH (09:00)
[2023-01-03] MEDS ORDERED: METOPROLOL TARTRATE 25 MG TAB PO SCH (09:00)
[2023-01-03] MEDS ORDERED: MULTIVITAMINS, THERA 1 EACH TAB PO SCH (09:00)
[2023-01-03] MEDS ORDERED: NON FORMULARY DRUG (Liraglutide [Victoza 3-Pak] 0.6 MG/0.1 ML Ml) INJ SCH (09:00)
[2023-01-03] MEDS ORDERED: FENOFIBRATE 160 MG TAB PO SCH (09:00)
[2023-01-03] MEDS ORDERED: PIOGLITAZONE 15 MG TAB PO SCH (09:00)
[2023-01-03] MEDS ORDERED: traMADol 50 MG TAB PO STA (09:39)
[2023-01-03 11:14] VITALS: BMI 25.0
[2023-01-03 11:33] VITALS: BP 122/71; RESP 20; TEMP 97.3
[2023-01-03 11:34] LABS: Glucose,Whole Blood 145 mg/dL (70-110)
[2023-01-03 12:02] VITALS: PULSE 80
--- NOTE | 2023-01-03 14:18 | P.PN ---
Subjective Progress Note Date: 01/03/23 This patient has a chronic recurrent left-sided pleural effusion/loculated and it developed following a previous coronary artery bypass surgery, in addition to mitral valve repair and closure of a patent foramen ovale From April 2023. The patient along, treated postoperative course and the patient has recurrent left-sided pleural effusion. The patient has undergone previous ultrasound- guided thoracentesis. Based on that, the patient underwent a thoracoscopy today. The patient underwent a left thoracoscopy with partial decortication of the left lung and placement of a Pleurx catheter. Intraoperatively, the patient was found to have a large amount of inflammatory material throughout the left posterior inferior pleural space. The pleural lining was biopsied. The postop chest x-ray shows adequate expansion of the left lung. There may be a very tiny left apical pneumothorax. Pleurx catheter is in a good location. For now, the patient on 2 L of oxygen by nasal cannula with a pulse ox of 98%. The patient is hemodynamically stable. The patient is using the incentive spirometer. The patient was placed on DuoNeb nebulized treatments and Symbicort. The patient is currently on IV cefazolin. The patient is on subcu heparin for DVT prophylaxis. The patient is also on Tylenol for pain control. The patient is known to have multiple medical pounds and comorbidities as listed in my assessment and plan. Noted the patient has undergone previous thoracentesis of the left sided pleural effusion. Cytology has not been sent. Based on the LDH and protein criteria, the fluid seems to more so a transudate On today's evaluation of 82,023, the patient is doing well. He is on room air oxygen. He is still having some pain at the surgical one-sided. Otherwise, no other new complaints. The Pleurx catheter has been. He was initially drained and there was a total of 740 mL of output from the catheter overnight. The patient had a follow-up chest x-ray today and the chest x-ray showed a stable tiny left apical pneumothorax. Good location. No other complaints otherwise fo r now. Clinically stable hemodynamically stable. White cycles of 8 with a hemoglobin of 10.5. BUN is at 36 with a creatinine of 1.5. This will Objective - Vital Signs Vital signs: Vital Signs Temp 97.3 F L 01/03/23 11:32 Pulse 60 01/03/23 11:32 Resp 20 01/03/23 11:32 BP 122/71 01/03/23 11:32 Pulse Ox 99 01/03/23 11:32 FiO2 Intake & Output 01/02/23 01/03/23 01/03/23 18:59 06:59 18:59 Intake Total 1410 780 Output Total 763 1700 100 Balance 647 -1700 680 Weight 75.3 kg 76.8 kg 76.8 kg Intake: IV 1180 Intake, IV Titration 50 Amount ceFAZolin 2 gm In Sodium 50 Chloride 0.9% 50 ml @ 100 mls/hr IVPB ONCE PRN Rx# :[id number] Oral 180 780 Output: Chest Tube Drainage 130 180 0 Chest Tube Left Anterior 130 180 0 Chest Drainage 130 Left Anterior Chest 130 Urine 200 1520 100 Pleural Fluid 300 Estimated Blood Loss 3 - Exam CONSTITUTIONAL: Appears comfortable, cooperative, no acute distress, currently the patient is on room air oxygen RESPIRATORY: Lungs sounds diminished to his bilateral bases with few scattered crackles. Respirations are symmetrical, nonlabored. The Pleurx catheter has been capped CARDIOVASCULAR: S1, S2 present. Regular rate and rhythm, sinus rhythm with bundle branch block on telemetry, heart rate 76 bpm. Palpable peripheral pulses bilaterally. No edema present. No calf pain or tenderness noted. SCDs present. GASTROINTESTINAL: Abdomen soft, nontender, nondistended. Active bowel sounds present 4 quadrants. Tolerating diet. GENITOURINARY: Continues to void clear, yellow urine. INTEGUMENTARY: Skin is warm and dry with no evidence of clubbing or cyanosis. Left thoracic incisions well approximated and covered with dry, intact dressings. NEUROLOGIC: Cranial nerves II through XII intact. No focal deficits. MUSKULOSKELETAL: Able to move all extremities, strength equal bilaterally, gait normal. PSYCHIATRIC: Alert and oriented to person place and time, appropriate affect, intact judgment and insight. - Labs CBC & Chem 7: 01/03/23 07:06 01/03/23 07:06 Labs: Abnormal Lab Results - Last 24 Hours (Table) 01/02/23 01/02/23 01/03/23 Range/Units 16:34 20:20 06:18 RBC (4.30-5.90) m/uL Hgb (13.0-17.5) gm/dL Hct (39.0-53.0) % MCHC (31.0-37.0) g/dL RDW (11.5-15.5) % Lymphocytes # (1.0-4.8) k/uL BUN (9-20) mg/dL Creatinine (0.66-1.25) mg/dL Glucose (74-99) mg/dL POC Glucose (mg/dL) 146 H 263 H 131 H (70-110) mg/dL 01/03/23 01/03/23 01/03/23 Range/Units 07:06 07:06 11:33 RBC 3.58 L (4.30-5.90) m/uL Hgb 10.5 L (13.0-17.5) gm/dL Hct 35.7 L (39.0-53.0) % MCHC 29.5 L (31.0-37.0) g/dL RDW 16.3 H (11.5-15.5) % Lymphocytes # 0.5 L (1.0-4.8) k/uL BUN 36 H (9-20) mg/dL Creatinine 1.51 H (0.66-1.25) mg/dL Glucose 113 H (74-99) mg/dL POC Glucose (mg/dL) 145 H (70-110) mg/dL Microbiology - Last 24 Hours (Table) 01/02/23 09:31 Gram Stain - Preliminary Pleural Fluid Assessment and Plan Plan: Recurrent left-sided pleural effusion postthoracotomy and cardiac surgery. The patient has undergone previous thoracentesis in the pleural fluid was essentially loculated with a negative cytology. The patient underwent a thoracoscopy/decortication, insertion Pleurx catheter and pleural biopsy. The patient is currently postop day #1, the patient is currently on room air oxygen. The patient is doing well with some limited pain in the surgical one-sided. Coronary artery disease with previous 2 vessel bypass surgery Previous history of mitral valve repair Previous history of patent foramen ovale closure Hypertension Hyperlipidemia Diabetes mellitus type 2 Paroxysmal A. fib Chronic systolic heart failure, ejection fraction is noted to 40-45% COPD, with an FEV1 of 41%, maintained on Trelegy Ellipta on outpatient basis Osteoarthritis Chronic back pain Chronic kidney disease Plan Incentive spirometer Pain control is adequate for now Patient is on room air oxygen Educational needs a Pleurx catheter was given Continue Trelegy Ellipta from home Monitor chest x-ray findings and output on outpatient basis Continue oral Lasix Continue Toprol 25 mg by mouth daily Continue lactulose Insulin sliding scale coverage Continue aspirin and Lipitor Possible discharge home today
--- NOTE | 2023-01-03 15:14 | P.DS ---
Providers Date of admission: 01/02/23 07:37 Expected date of discharge: 01/03/23 Attending physician: Hai Raines Primary care [facility] Course: FINAL DIAGNOSIS: Recurrent left pleural effusion, loculated, status post left thoracoscopy with partial decortication left lung and placement of left Pleurx catheter Severe COPD, with an FEV1 41% predicted value Coronary artery disease with previous 2 vessel bypass surgery in April 2022 History of severe mitral valve regurgitation, status post mitral valve repair in April 2022 History of patent foramen ovale closure Hypertension Hyperlipidemia Diabetes mellitus type 2 History of paroxysmal atrial fibrillation Chronic systolic heart failure Ischemic cardiomyopathy with an ejection fraction of 40-45% Osteoarthritis Chronic back pain Chronic kidney disease History of right internal carotid artery stenosis 50-79% Chronic blood loss anemia with a history of GI bleed in November 2021 PRINCIPAL PROCEDURE: 1. Left thoracoscopy with partial decortication left lung and placement of left Pleurx catheter. HISTORY OF PRESENT ILLNESS: This is a 72-year-old gentleman who follows on an outpatient basis with Dr. Clyde Leal for his primary care, Dr. Laura Aguilar for pulmonary care and with Dr. Man for his cardiology care. The patient underwent a mitral valve repair and coronary artery bypass grafting surgery 2 in April 2022. Postoperatively he had a long complicated postoperative course, and developed recurrent left pleural effusions requiring several left sided thoracentesis. On 12/24/2022 and ultrasound of the chest was completed which demonstrated a heavily loculated left-sided pleural effusion. He apparently was evaluated by intervention radiology for an ultrasound-guided thoracentesis although due to the pleural effusion being loculated, the patient was referred to cardiothoracic surgery for further evaluation and treatment recommendations including Pleurx catheter placement. The patient and his met with Dr. Raines from cardiothoracic surgery, treatment options were discussed including a left video-assisted thoracoscopic surgery with partial decortication and placement of left Pleurx catheter. Risks and benefits of the procedure were discussed with the patient and his , and knowing and understanding the risks the patient wished to proceed with the surgical option. HOSPITAL COURSE: The patient was brought to the hospital on 01/02/2023, was taken to the preoperative area, prepared in the usual fashion and after obtaining consent was subsequently taken to the operating room where Dr. Hai Raines performed a left thoracoscopy with partial decortication left lung and placement of left Pleurx catheter. Upon completion of the surgery the patient was taken to the recovery room where he was further recovered and monitored hemodynamically. Subsequently he was transferred to the third floor cardiac stepdown unit for further monitoring. His oxygen was titrated down, he was tolerating an oral diet, his pain was well controlled, and his left chest Pleurx catheter was capped and a dressing was placed. He was ready to be discharged home on postoperative day #1 with [facility]. He has received written and verbal instructions regarding his medications, activity restrictions, Pleurx catheter drainage and care, signs and symptoms requiring physician notification and his follow-up appointments. Plan - Discharge Summary Discharge Rx Participant: No New Discharge Prescriptions: Continue Vit C/E/Zn/Coppr/Lutein/Zeaxan [Preservision Areds 2 Softgel] 1 cap PO BID Acetaminophen Tab [Tylenol] 650 mg PO Q6HR PRN tab PRN Reason: Fever and/ or Mild Pain Metoprolol Tartrate [Lopressor] 25 mg PO DAILY Aspirin 81 mg PO DAILY Liraglutide [Victoza 3-Casey] 1.8 mg INJ DAILY Pioglitazone [Actos] 15 mg PO DAILY Ipratropium/Albuter 20-100Mcg [Combivent Respimat 20-100Mcg Inhaler] 1 puff INHALATION DIRECTED PRN PRN Reason: DIFFICULTY BREATHING Fenofibrate 160 mg PO DAILY Cholecalciferol (Vitamin D3) [Vitamin D3] 1,250 mcg PO DAILY Atorvastatin [Lipitor] 80 mg PO HS Fluticasone/Umeclidin/Vilanter [Trelegy Ellipta 100-62.5-25] 1 puff INHALATION RT-HS@2100 bisacodyL [Dulcolax] 10 mg RECTAL DAILY PRN suppositor PRN Reason: Constipation Furosemide [Lasix] 40 mg PO BID 30 Days #60 tablet Multivitamins, Thera [Multivitamin (formulary)] 1 tab PO DAILY Empagliflozin [Jardiance] 10 mg PO DAILY Discharge Medication List Vit C/E/Zn/Coppr/Lutein/Zeaxan [Preservision Areds 2 Softgel] 1 cap PO BID 02/19/17 [History] Fluticasone/Umeclidin/Vilanter [Trelegy Ellipta 100-62.5-25] 1 puff INHALATION RT-HS@2100 11/09/21 [History] Acetaminophen Tab [Tylenol] 650 mg PO Q6HR PRN tab 05/18/22 [Rx] bisacodyL [Dulcolax] 10 mg RECTAL DAILY PRN suppositor 05/18/22 [Rx] Aspirin 81 mg PO DAILY 05/19/22 [History] Metoprolol Tartrate [Lopressor] 25 mg PO DAILY 05/19/22 [History] Furosemide [Lasix] 40 mg PO BID 30 Days #60 tablet 05/30/22 [Rx] Liraglutide [Victoza 3-Casey] 1.8 mg INJ DAILY 10/17/22 [History] Atorvastatin [Lipitor] 80 mg PO HS 11/07/22 [History] Cholecalciferol (Vitamin D3) [Vitamin D3] 1,250 mcg PO DAILY 11/07/22 [History] Empagliflozin [Jardiance] 10 mg PO DAILY 11/07/22 [History] Fenofibrate 160 mg PO DAILY 11/07/22 [History] Ipratropium/Albuter 20-100Mcg [Combivent Respimat 20-100Mcg Inhaler] 1 puff INHALATION DIRECTED PRN 11/07/22 [History] Multivitamins, Thera [Multivitamin (formulary)] 1 tab PO DAILY 11/07/22 [History] Pioglitazone [Actos] 15 mg PO DAILY 11/07/22 [History] Follow up Appointment(s)/Referral(s): Laura Aguilar MD [STAFF PHYSICIAN] - 01/15/23 9:45 am [facility], [NON-STAFF] - Clyde Leal DO [Primary Care Provider] - As Needed Hai Raines MD [STAFF PHYSICIAN] - As Needed (Please call office for pleurx removal once drainage is less than 50 mL for 3 times in a row.) Patient Instructions/Handouts: Thoracotomy (DC) Activity/Diet/Wound Care/Special Instructions: PleurX catheter discharge instructions: 1. Home Care is ordered, they will obtain new bottles. 2. May shower after 24 hours, no tub baths/hot tubs. 3. Do not drain more than 1 liter or 1000 mL in 24 hours. 4. New drainage bottle needed with each drainage. 5. Drainage frequency dictated by patient symptoms, may be every day, every other day, weekly, or however often the patient is symptomatic. 6. Please notify ACCESS CLERK or office if temperature >101F, excessive pain at insertion site, drainage consistency changes to cloudy or smells bad, catheter falls out, or anything else that concerns you. 7. Contact surgery office with weekly drainage amounts. May fax the amounts. 8. Once drainage is less than 50 mL three times in a row, notify the surgery office for possible removal. Surgery office: , fax Discharge Disposition: HOME SELF-CARE
[2023-01-03] MEDS ORDERED: HEPARIN SODIUM,PORCINE 5,000 UNIT/ML 1 ML VIAL SQ SCH (16:00)
== END 2023-01-03 15:06 | disposition home or self-care (01) | DRG 164 ==
LOC: 2ORMAIN 07:37 → 3SCARD 13:47
PROVIDERS: ADMIT Thoracic Surgery (Cardiothoracic Vascular Surgery); ATTEND Thoracic Surgery (Cardiothoracic Vascular Surgery)
PROC: 0BNL4ZZ Release Left Lung, Percutaneous Endoscopic Approach (ICD-10-PCS; principal; 2023-01-02 09:30)
PROC: 0W9B30Z Drainage of Left Pleural Cavity with Drainage Device, Percutaneous Approach (ICD-10-PCS; principal; 2023-01-02 09:30)
DX: J90 Pleural effusion, not elsewhere classified (principal); I13.0 Hypertensive heart and chronic kidney disease with heart failure and stage 1 through stage 4 chronic kidney disease, or unspecified chronic kidney disease; I50.22 Chronic systolic (congestive) heart failure; E11.22 Type 2 diabetes mellitus with diabetic chronic kidney disease; E78.5 Hyperlipidemia, unspecified; G89.29 Other chronic pain; H91.90 Unspecified hearing loss, unspecified ear; I25.10 Atherosclerotic heart disease of native coronary artery without angina pectoris; I25.2 Old myocardial infarction; D50.0 Iron deficiency anemia secondary to blood loss (chronic); I25.5 Ischemic cardiomyopathy; I34.0 Nonrheumatic mitral (valve) insufficiency; I48.0 Paroxysmal atrial fibrillation; M54.9 Dorsalgia, unspecified; J44.9 Chronic obstructive pulmonary disease, unspecified; M19.90 Unspecified osteoarthritis, unspecified site; N18.9 Chronic kidney disease, unspecified; Z79.82 Long term (current) use of aspirin; Z79.84 Long term (current) use of oral hypoglycemic drugs; Z79.899 Other long term (current) drug therapy; Z87.74 Personal history of (corrected) congenital malformations of heart and circulatory system; Z87.891 Personal history of nicotine dependence; Z95.1 Presence of aortocoronary bypass graft; Z95.5 Presence of coronary angioplasty implant and graft; Z96.653 Presence of artificial knee joint, bilateral; Z71.3 Dietary counseling and surveillance; Z98.1 Arthrodesis status; Z88.8 Allergy status to other drugs, medicaments and biological substances
CPT/HCPCS: 71045; 80048; 84132; 85025; 86850; 86900; 86901; 87070; 87075; 87102; 87116; 87205; 87206; 88108; 88305; 94640; 94760

== ENCOUNTER 2023-03-12 10:35 | Inpatient (IN) | payer MEDICARE ==
[2023-03-12] MEDS ORDERED: MORPHINE SULFATE 4 MG/ML SYRINGE IVP STA (12:03)
[2023-03-12 12:18] LABS: Anisocytosis Slight; Basophils % (A) 0 %; Eosinophils # (A) 0.2 k/uL (0-0.7); Eosinophils % (A) 2 %; HCT 24.7 % (39.0-53.0); HGB 7.7 gm/dL (13.0-17.5); Hypochromasia Marked; Lymphocytes # (A) 0.4 k/uL (1.0-4.8); Lymphocytes % (A) 5 %; MCH 29.9 pg (25.0-35.0); MCV 96.3 fL (80.0-100.0); Macrocytosis Slight; Mean Platelet Volume 8.8; Monocytes # (A) 0.6 k/uL (0-1.0); Monocytes % (A) 8 %; Neutrophils % (A) 83 %; Platelet Count 206 k/uL (150-450); RBC 2.57 m/uL (4.30-5.90); RDW 19.4 % (11.5-15.5); WBC 8.4 k/uL (3.8-10.6)
[2023-03-12 12:21] LABS: INR 1.4 (<1.2); Partial Thromboplastin Time 26.8 sec (22.0-30.0); Prothrombin Time 13.7 sec (9.0-12.0)
[2023-03-12 12:31] LABS: ALT 103 U/L (4-49); AST 188 U/L (17-59); African American GFR (CKD) 45 (>60 ml/min/1.73 sqM); Albumin 3.1 g/dL (3.5-5.0); Alkaline Phosphatase 49 U/L (38-126); Anion Gap 6 mmol/L; Blood Urea Nitrogen 55 mg/dL (9-20); Calcium 8.5 mg/dL (8.4-10.2); Carbon Dioxide 31 mmol/L (22-30); Chloride 100 mmol/L (98-107); Glucose 110 mg/dL (74-99); Non-African American GFR(CKD) 39 (>60 ml/min/1.73 sqM); Potassium 4.5 mmol/L (3.5-5.1); Sodium 137 mmol/L (137-145); Total Bilirubin 1.4 mg/dL (0.2-1.3); Total Protein 5.6 g/dL (6.3-8.2)
[2023-03-12 12:38] LABS: NT-Pro-B-Type Natriuretic Pept 24900 pg/mL
--- NOTE | 2023-03-12 13:45 | ED ---
SOB HPI - General Chief Complaint: Shortness of Breath Stated Complaint: s/p heart surgery Time Seen by Provider: 03/12/23 11:25 Source: patient Mode of arrival: ambulatory Limitations: no limitations - History of Present Illness Initial Comments: 73-year-old male with past history of A. fib, COPD, coronary artery disease status post bypass who presents to the emergency department reporting shortness of breath. States that he has had a 20 pound weight gain in the past month. He has generalized swelling which extends all the way up to his genitals. Reports that he takes Lasix 40 mg twice daily. Has been taking it as directed but continues to have swelling. He denies any chest pain. EMS found the patient to have an oxygen saturation of 89%. Does not wear oxygen at home. Has been using his nebulizer without any improvement in his symptoms. Currently the patient has a left Pleurx catheter in place. States is supposed to be removed by Dr. Raines on . He attempted to drain it at home yesterday and only got a few drops out. States that he has not had any output in quite some time. No fevers chills or cough. No other alleviating, precipitating or modifying factors - Related Data Home Medications Medication Instructions Recorded Confirmed Vit C/E/Zn/Coppr/Lutein/Zeaxan 1 cap PO BID 02/19/17 03/12/23 [Preservision Areds 2 Softgel] Fluticasone/Umeclidin/Vilanter 1 puff INHALATION RT-HS@2100 11/09/21 03/12/23 [Trelegy Ellipta 100-62.5-25] Aspirin 81 mg PO DAILY 05/19/22 03/12/23 Metoprolol Tartrate [Lopressor] 25 mg PO DAILY 05/19/22 03/12/23 Liraglutide [Victoza 3-Casey] 1.8 mg SQ DAILY 10/17/22 03/12/23 Atorvastatin [Lipitor] 80 mg PO HS 11/07/22 03/12/23 Cholecalciferol (Vitamin D3) 1,250 mcg PO DAILY 11/07/22 03/12/23 [Vitamin D3] Ipratropium/Albuter 20-100Mcg 1 puff INHALATION RT-Q6H PRN 11/07/22 03/12/23 [Combivent Respimat 20-100Mcg Inhaler] Multivitamins, Thera [Multivitamin 1 tab PO DAILY 11/07/22 03/12/23 (formulary)] Pioglitazone [Actos] 15 mg PO DAILY 11/07/22 03/12/23 Acetaminophen Tab [Tylenol Tab] 1,000 mg PO Q6HR PRN 03/12/23 03/12/23 Albuterol Nebulized [Ventolin 1.25 mg INHALATION RT-QID 03/12/23 03/12/23 Nebulized (Accuneb)] HYDROcodone/APAP 10-325MG [Cisco 1 tab PO BID PRN 03/12/23 03/12/23 10-325] Previous Rx's Medication Instructions Recorded Furosemide [Lasix] 40 mg PO BID 30 Days #60 tablet 05/30/22 Allergies Allergy/AdvReac Type Severity Reaction Status Date / Time protamine Allergy Anaphylaxis Verified 03/12/23 14:09 apixaban [From Eliquis] AdvReac "stomach Verified 03/12/23 14:09 bleeds" dapagliflozin [From Farxiga] AdvReac Itching Verified 03/12/23 14:09 empagliflozin AdvReac Itching Verified 03/12/23 14:09 [From Jardiance] Review of Systems ROS Statement: Those systems with pertinent positive or pertinent negative responses have been documented in the HPI. ROS Other: All systems not noted in ROS Statement are negative. Past Medical History Past Medical History: Atrial Fibrillation, Coronary Artery Disease (CAD), COPD, Diabetes Mellitus, GI Bleed, Hearing Disorder / Deafness, Hyperlipidemia, Hypertension, Myocardial Infarction ([place]), Renal Disease Additional Past Medical History / Comment(s): Previous bypass surgery, previous repair of the mitral valve, comp to get postoperative course requiring dialysis for renal failure and the patient also developed GI bleed requiring blood transfusions recent significant developed a chronic loculated left-sided pleural effusion. Other comorbidities include COPD, chronic systolic heart failure with an ejection fraction 4045%, hypertension, hyperlipidemia, paroxysmal A. fib Last Myocardial Infarction Date:: 11/2021 History of Any Multi-Drug Resistant Organisms: None Reported Past Surgical History: Back Surgery, Heart Catheterization With Stent, Joint Replacement, Orthopedic Surgery Additional Past Surgical History / Comment(s): BILATERAL KNEE REPLACEMENTS, BILATERAL SHOULDER SURGERY, ONE CARDIAC STENT, back surgery X2 (lumbar decompression and fusion), BACK INJECTIONS, COLONOSCOPY, BILATERAL CATARACTS REMOVED WITH LENS IMPLANTS, Cardioversion. ganglion cyst rt wrist removed Past Anesthesia/Blood Transfusion Reactions: No Reported Reaction Additional Past Anesthesia/Blood Transfusion Reaction / Comment(s): no issues with blood transfusions Date of Last Stent Placement:: 2000 Past Psychological History: No Psychological Hx Reported Smoking Status: Former smoker - Past Family History Father Family Medical History: No Reported History Mother Family Medical History: No Reported History General Exam Limitations: no limitations General appearance: alert, in no apparent distress Head exam: Present: atraumatic, normocephalic, normal inspection Eye exam: Present: normal appearance, PERRL, EOMI. Absent: scleral icterus, conjunctival injection, periorbital swelling ENT exam: Present: normal exam, mucous membranes moist Neck exam: Present: normal inspection. Absent: tenderness, meningismus, lymphadenopathy Respiratory exam: Present: rales. Absent: respiratory distress, wheezes, r honchi, stridor Cardiovascular Exam: Present: regular rate, normal rhythm, normal heart sounds. Absent: systolic murmur, diastolic murmur, rubs, gallop, clicks GI/Abdominal exam: Present: soft, normal bowel sounds. Absent: distended, tenderness, guarding, rebound, rigid Extremities exam: Present: full ROM, normal capillary refill, pedal edema (Extending all the way up to the patient's groin). Absent: tenderness, joint swelling, calf tenderness Back exam: Present: normal inspection Neurological exam: Present: alert, oriented X3, CN II-XII intact Psychiatric exam: Present: normal affect, normal mood Skin exam: Present: warm, dry, intact, normal color. Absent: rash Course Vital Signs 03/12/23 03/12/23 03/12/23 11:24 11:29 11:58 Temperature 97.9 F 98.0 F Pulse Rate 71 Pulse Rate [ Pulse Oximetery ] Respiratory 18 20 20 Rate Blood Pressure 109/61 94/59 Blood Pressure [Right Arm] O2 Sat by Pulse 98 92 L Oximetry 03/12/23 03/12/23 15:00 16:15 Temperature 98 F Pulse Rate 76 Pulse Rate [ 60 Pulse Oximetery ] Respiratory 18 18 Rate Blood Pressure 102/64 Blood Pressure 124/65 [Right Arm] O2 Sat by Pulse 92 L 100 Oximetry Medical Decision Making - Medical Decision Making Was pt. sent in by a medical professional or institution (CLEMENTINA Dunham, GASOLINE ATTENDANT, urgent care, hospital, or skilled nursing...) When possible be specific @ -No Did you speak to anyone other than the patient for history (EMS, parent, family, police, friend...)? What history was obtained from this source @ -EM Did you review nursing and triage notes (agree or disagree)? Why? @ -I reviewed and agree with nursing and triage notes Were old charts reviewed (outside hosp., previous admission, EMS record, old EKG, old radiological studies, urgent care reports/EKG's, skilled nursing records)? Report findings @ -I reviewed charts on the patient's lung surgery with chest tube placement Differential Diagnosis (chest pain, altered mental status, abdominal pain women, abdominal pain men, vaginal bleeding, weakness, fever, dyspnea, syncope, headache, dizziness, GI bleed, back pain, seizure, CVA, palpatations, mental health, musculoskeletal)? @ -Differential Dyspnea: Coronary syndrome, arrhythmia, tamponade, asthma, COPD, pulmonary embolism, pneumonia, pneumothorax, pulmonary effusion, anaphylaxis, diabetic ketoacidosis, flailed chest, pulmonary contusion, diaphragmatic rupture, anemia, neuromuscular, this is not meant to be an all-inclusive list. EKG interpreted by me (3pts min.). @ -Yes and demonstrates sinus rhythm with a rate of 74. IA interval 182. QRS 105. QTC of 423. No acute ST segment elevations. Mild ST depression V1 through V6 X-rays interpreted by me (1pt min.). @ -Yes and demonstrates pulmonary vascular congestion CT interpreted by me (1pt min.). @ -None done U/S interpreted by me (1pt. min.). @ -None done What testing was considered but not performed or refused? (CT, X-rays, U/S, labs)? Why? @ -None What meds were considered but not given or refused? Why? @ -None Did you discuss the management of the patient with other professionals (professionals i.e. CLEMENTINA Dunham, GASOLINE ATTENDANT, lab, RT, psych nurse, forensic social worker, sales representative advertising, teacher, artillery officer, vocational case manager)? Give summary @ -Spoke with Dr. Bynum for admission Was smoking cessation discussed for >3mins.? @ -No Was critical care preformed (if so, how long)? @ -No Were there social determinants of health that impacted care today? How? (Homelessness, low income, unemployed, alcoholism, drug addiction, transportation, low edu. Level, literacy, decrease access to med. care, longterm, rehab)? @ -No Was there de-escalation of care discussed even if they declined (Discuss DNR or withdrawal of care, Hospice)? DNR status @ -No What co-morbidities impacted this encounter? (DM, HTN, Smoking, COPD, CAD, Cancer, CVA, ARF, Chemo, Hep., AIDS, mental health diagnosis, sleep apnea, morbid obesity)? @ -CHF, COPD, loculated pleural effusions Was patient admitted / discharged? Hospital course, mention meds given and route, prescriptions, significant lab abnormalities, going to OR and other pertinent info. @ -Upon arrival patient is placed into hallway 11. Thorough history and physical exam was performed. He is placed on continuous pulse ox and cardiac monitoring. 12-lead EKG is obtained. Laboratory studies are conducted. BNP is extremely high. Chest x-ray demonstrates pulmonary edema. Spoke with Dr. Bynum who recommends a Lasix drip. Patient was agreeable to admission and is currently awaiting a bed on the floor in stable condition Undiagnosed new problem with uncertain prognosis? @ -No Drug Therapy requiring intensive monitoring for toxicity (Heparin, Nitro, Insulin, Cardizem)? @ -No Were any procedures done? @ -No Diagnosis/symptom? @ -Acute respiratory insufficiency, acute exacerbation of CHF Acute, or Chronic, or Acute on Chronic? @ -Acute on chronic Uncomplicated (without systemic symptoms) or Complicated (systemic symptoms)? @ -Complicated Side effects of treatment? @ -No Exacerbation, Progression, or Severe Exacerbation? @ -No Poses a threat to life or bodily function? How? (Chest pain, [place], [place], pneumonia, PE, COPD, DKA, ARF, appy, cholecystitis, CVA, Diverticulitis, Homicidal, Suicidal, threat to staff... and all critical care pts) @ -Yes patient presents with respiratory insufficiency - Lab Data Result diagrams: 03/15/23 09:33 03/16/23 07:26 Lab Results 03/12/23 03/12/23 03/12/23 Range/Units 11:40 11:40 11:40 WBC 8.4 (3.8-10.6) k/uL RBC 2.57 L (4.30-5.90) m/uL Hgb 7.7 L (13.0-17.5) gm/dL Hct 24.7 L (39.0-53.0) % MCV 96.3 (80.0-100.0) fL MCH 29.9 (25.0-35.0) pg MCHC 31.0 (31.0-37.0) g/dL RDW 19.4 H (11.5-15.5) % Plt Count 206 (150-450) k/uL MPV 8.8 Neutrophils % 83 % Lymphocytes % 5 % Monocytes % 8 % Eosinophils % 2 % Basophils % 0 % Neutrophils # 7.0 (1.3-7.7) k/uL Lymphocytes # 0.4 L (1.0-4.8) k/uL Monocytes # 0.6 (0-1.0) k/uL Eosinophils # 0.2 (0-0.7) k/uL Basophils # 0.0 (0-0.2) k/uL Hypochromasia Marked Anisocytosis Slight Macrocytosis Slight PT 13.7 H (9.0-12.0) sec INR 1.4 H (<1.2) APTT 26.8 (22.0-30.0) sec Sodium 137 (137-145) mmol/L Potassium 4.5 (3.5-5.1) mmol/L Chloride 100 (98-107) mmol/L Carbon Dioxide 31 H (22-30) mmol/L Anion Gap 6 mmol/L BUN 55 H (9-20) mg/dL Creatinine 1.70 H (0.66-1.25) mg/dL Est GFR (CKD-EPI)AfAm 45 (>60 ml/min/1.73 sqM) Est GFR (CKD-EPI)NonAf 39 (>60 ml/min/1.73 sqM) Glucose 110 H (74-99) mg/dL Plasma Lactic Acid Nahum (0.7-2.0) mmol/L Calcium 8.5 (8.4-10.2) mg/dL Total Bilirubin 1.4 H (0.2-1.3) mg/dL AST 188 H (17-59) U/L ALT 103 H (4-49) U/L Alkaline Phosphatase 49 (38-126) U/L Troponin I (0.000-0.034) ng/mL NT-Pro-B Natriuret Pep 60081 pg/mL Total Protein 5.6 L (6.3-8.2) g/dL Albumin 3.1 L (3.5-5.0) g/dL 03/12/23 03/12/23 Range/Units 11:40 11:40 WBC (3.8-10.6) k/uL RBC (4.30-5.90) m/uL Hgb (13.0-17.5) gm/dL Hct (39.0-53.0) % MCV (80.0-100.0) fL MCH (25.0-35.0) pg MCHC (31.0-37.0) g/dL RDW (11.5-15.5) % Plt Count (150-450) k/uL MPV Neutrophils % % Lymphocytes % % Monocytes % % Eosinophils % % Basophils % % Neutrophils # (1.3-7.7) k/uL Lymphocytes # (1.0-4.8) k/uL Monocytes # (0-1.0) k/uL Eosinophils # (0-0.7) k/uL Basophils # (0-0.2) k/uL Hypochromasia Anisocytosis Macrocytosis PT (9.0-12.0) sec INR (<1.2) APTT (22.0-30.0) sec Sodium (137-145) mmol/L Potassium (3.5-5.1) mmol/L Chloride (98-107) mmol/L Carbon Dioxide (22-30) mmol/L Anion Gap mmol/L BUN (9-20) mg/dL Creatinine (0.66-1.25) mg/dL Est GFR (CKD-EPI)AfAm (>60 ml/min/1.73 sqM) Est GFR (CKD-EPI)NonAf (>60 ml/min/1.73 sqM) Glucose (74-99) mg/dL Plasma Lactic Acid Nahum 1.2 (0.7-2.0) mmol/L Calcium (8.4-10.2) mg/dL Total Bilirubin (0.2-1.3) mg/dL AST (17-59) U/L ALT (4-49) U/L Alkaline Phosphatase (38-126) U/L Troponin I 0.034 (0.000-0.034) ng/mL NT-Pro-B Natriuret Pep pg/mL Total Protein (6.3-8.2) g/dL Albumin (3.5-5.0) g/dL Disposition Clinical Impression: Acute respiratory insufficiency, CHF exacerbation, Anemia Disposition: ADMITTED IP TO THIS [facility] Condition: Serious Is patient prescribed a controlled substance at d/c from ED?: No Time of Disposition: 14:37 Decision to Admit Reason: Admit from EC Decision Date: 03/12/23 Decision Time: 14:37
--- NOTE | 2023-03-12 13:54 | XR ---
EXAMINATION TYPE: XR chest 2V DATE OF EXAM: 03/12/2023 1:40 PM COMPARISON: Chest radiographs from 03/06/2023 TECHNIQUE: XR chest 2V Frontal and lateral views of the chest. CLINICAL INDICATION:Male, 73 years old with history of difficulty breathing; FINDINGS: Lungs/Pleura: Blunting of both costophrenic angles. No pneumothorax. Focal scarring along the right m idlung redemonstrated. Pulmonary vascularity: Mild pulmonary vascular congestion. Heart/mediastinum: Cardiomediastinal silhouette is enlarged and stable. Valvular prosthesis. Musculoskeletal: No acute osseous pathology. Midline sternotomy wires are noted and stable. Bilateral shoulder orthopedic anchors. Other: Left basilar pleural pigtail catheter redemonstrated. IMPRESSION: Cardiomegaly, pulmonary vascular congestion and small bilateral pleural effusions. Correlate with BNP for congestive heart failure. Left pleural pigtail catheter in place.
[2023-03-12] MEDS: FUROSEMIDE 100 MG in SODIUM CHLORIDE 0.9% 90 ML IV SCH ×2 (14:31→22:29)
[2023-03-12] MEDS ORDERED: NALOXONE 0.4 MG/ML 1 ML VIAL IV PRN (14:37)
[2023-03-12] MEDS ORDERED: ACETAMINOPHEN TAB 500 MG TAB PO PRN (18:21)
[2023-03-12] MEDS ORDERED: IPRATROPIUM-ALBUTEROL 3 ML NEB INHALATION PRN (18:21)
[2023-03-12] MEDS: IPRATROPIUM-ALBUTEROL 3 ML NEB INHALATION SCH (19:49)
[2023-03-12] MEDS: SYMBICORT 80-4.5 MCG INHALER INHALATION SCH (19:49)
[2023-03-12] MEDS ORDERED: ALBUTEROL NEBULIZED 2.5 MG/3 ML INHALATION SCH (20:00)
[2023-03-12] MEDS ORDERED: LACTULOSE 20 GM/30 ML CUP PO PRN (21:02)
[2023-03-12] MEDS ORDERED: ONDANSETRON 4 MG/2 ML VIAL IVP PRN (21:02)
[2023-03-12] MEDS ORDERED: TEMAZEPAM 15 MG CAP PO PRN (21:02)
[2023-03-12] MEDS ORDERED: CALCIUM CARBONATE 500 MG CHEWABLE PO PRN (21:02)
--- NOTE | 2023-03-12 21:08 | P.HPIM ---
History of Present Illness H&P Date: 03/12/23 Chief Complaint: Short of breath edema This is a pleasant 73-year-old patient who follows with Dr. Leal. Extensive medical history including atrial fibrillation, CAD, COPD, diabetes, heart of feeding, hypertension, hyperlipidemia, previous coronary bypass, mitral valve r epair, EF 40-45%, Patient now presents with worsening short of breath. For at least 3 weeks. Edema is gone up to the lower abdomen. Scrotum is swollen. Decreased appetite. Nausea. No fever no chills. No chest pain. Review of systems: GEN.: Decreased appetite EYES: None HEENT: None NECK: None RESPIRATORY: Short of breath CARDIOVASCULAR: Edema GASTROINTESTINAL: None GENITOURINARY: None MUSCULOSKELETAL: None LYMPHATICS: None HEMATOLOGICAL: None PSYCHIATRY: None NEUROLOGICAL: None Social history: Patient smoked for 55 years, stopped last year. No alcohol. Does use CBD for back pain. Physical examination: VITAL SIGNS: [97.9, 71, 18, 109/61, 98% room air GENERAL: BMI 27.4, sitting up in a chair, awake short of breath. EYES: Pupils equal. Conjunctiva normal. HEENT: External appearance of nose and ears normal, oral cavity grossly normal. NECK: JVD raised; masses not palpable. HEART: First and second heart sounds are normal; gross edema up to the lower abdomen. LUNGS: Respiratory rate increased; decreased breath sounds. ABDOMEN: Soft, distended, abdominal wall edema nontender, liver spleen not palpable, no masses palpable. Scrotal edema PSYCH: Alert and oriented x3; mood and affect normal. MUSCULOSKELETAL:No Clubbing/cyanosis;muscles-grossly intact NEUROLOGICAL: Cranial nerves grossly intact; no facial asymmetry, power and sensation grossly intact. LYMPHATICS: No lymph nodes palpable in the axilla and neck. INVESTIGATIONS, reviewed in the clinical context: March 12: White count 8.4 hemoglobin 7.7 platelets 206 sodium 137 potassium 4.5 BUN 55 creatinine 1.7 total bilirubin 1.4 AST 188 ALT 103 albumin 3.1 pro BNP 72180 Troponin I 0.034 EKG tracing personally reviewed by me-normal sinus rhythm. Some ST-T wave changes. Chest x-ray film personally reviewed by me-cardiomegaly. Pulmonary edema. Assessment and plan: -Acute on chronic congestive heart exacerbation. Systolic dysfunction EF known to be 40-45% Lasix drip 10 mg per hour. Strict I's and O's. Fluid restriction 1500 mL day. Follow labs closely Cardiac consult. 2-D echo. -COPD in a previous smoker DuoNeb 4 times a day. Symbicort 2 puffs twice a day -Hyperlipidemia Lipitor 80 mg daily at bedtime-hold Lipitor for now because of elevated LFTs -CK D suspect nephrosclerosis Follow renal function closely -Diabetes mellitus type 2 on oral hypoglycemic Actos 15 mg a day. Follow Accu-Cheks. Victoza -Paroxysmal atrial fibrillation, currently in sinus rhythm -CAD with a prior history of stent, coronary bypass Aspirin. Lipitor -Hard of hearing -Normocytic anemia Check B12, folate -Full code Discussed with patient Past Medical History Past Medical History: Atrial Fibrillation, Coronary Artery Disease (CAD), COPD, Diabetes Mellitus, GI Bleed, Hearing Disorder / Deafness, Hyperlipidemia, Hypertension, Myocardial Infarction ([place]), Renal Disease Additional Past Medical History / Comment(s): Previous bypass surgery, previous repair of the mitral valve, comp to get postoperative course requiring dialysis for renal failure and the patient also developed GI bleed requiring blood transfusions recent significant developed a chronic loculated left-sided pleural effusion. Other comorbidities include COPD, chronic systolic heart failure with an ejection fraction 4045%, hypertension, hyperlipidemia, paroxysmal A. fib Last Myocardial Infarction Date:: 11/2021 History of Any Multi-Drug Resistant Organisms: None Reported Past Surgical History: Back Surgery, Heart Catheterization With Stent, Joint Replacement, Orthopedic Surgery Additional Past Surgical History / Comment(s): BILATERAL KNEE REPLACEMENTS, BILATERAL SHOULDER SURGERY, ONE CARDIAC STENT, back surgery X2 (lumbar decompression and fusion), BACK INJECTIONS, COLONOSCOPY, BILATERAL CATARACTS REMOVED WITH LENS IMPLANTS, Cardioversion. ganglion cyst rt wrist removed Past Anesthesia/Blood Transfusion Reactions: No Reported Reaction Additional Past Anesthesia/Blood Transfusion Reaction / Comment(s): no issues with blood transfusions Date of Last Stent Placement:: 2000 Past Psychological History: No Psychological Hx Reported Smoking Status: Former smoker - Past Family History Father Family Medical History: No Reported History Mother Family Medical History: No Reported History Medications and Allergies Home Medications Medication Instructions Recorded Confirmed Type Vit C/E/Zn/Coppr/Lutein/Zeaxan 1 cap PO BID 02/19/17 03/12/23 History [Preservision Areds 2 Softgel] Fluticasone/Umeclidin/Vilanter 1 puff INHALATION RT-HS@2100 11/09/21 03/12/23 History [Trelegy Ellipta 100-62.5-25] Aspirin 81 mg PO DAILY 05/19/22 03/12/23 History Metoprolol Tartrate [Lopressor] 25 mg PO DAILY 05/19/22 03/12/23 History Furosemide [Lasix] 40 mg PO BID 30 Days #60 tablet 05/30/22 03/12/23 Rx Liraglutide [Victoza 3-Casey] 1.8 mg SQ DAILY 10/17/22 03/12/23 History Atorvastatin [Lipitor] 80 mg PO HS 11/07/22 03/12/23 History Cholecalciferol (Vitamin D3) 1,250 mcg PO DAILY 11/07/22 03/12/23 History [Vitamin D3] Ipratropium/Albuter 20-100Mcg 1 puff INHALATION RT-Q6H PRN 11/07/22 03/12/23 History [Combivent Respimat 20-100Mcg Inhaler] Multivitamins, Thera [Multivitamin 1 tab PO DAILY 11/07/22 03/12/23 History (formulary)] Pioglitazone [Actos] 15 mg PO DAILY 11/07/22 03/12/23 History Acetaminophen Tab [Tylenol Tab] 1,000 mg PO Q6HR PRN 03/12/23 03/12/23 History Albuterol Nebulized [Ventolin 1.25 mg INHALATION RT-QID 03/12/23 03/12/23 History Nebulized (Accuneb)] HYDROcodone/APAP 10-325MG [[place] 1 tab PO BID PRN 03/12/23 03/12/23 History 10-325] Allergies Allergy/AdvReac Type Severity Reaction Status Date / Time protamine Allergy Anaphylaxis Verified 03/12/23 14:09 apixaban [From Eliquis] AdvReac "stomach Verified 03/12/23 14:09 bleeds" dapagliflozin [From Farxiga] AdvReac Itching Verified 03/12/23 14:09 empagliflozin AdvReac Itching Verified 03/12/23 14:09 [From Jardiance] Physical Exam Vitals: Vital Signs Temp Pulse Pulse Resp BP BP Pulse Ox 03/12/23 20:02 100 03/12/23 19:54 100 03/12/23 16:15 98 F 60 18 124/65 100 03/12/23 15:00 76 18 102/64 92 L 03/12/23 11:58 98.0 F 20 94/59 92 L 03/12/23 11:29 20 03/12/23 11:24 97.9 F 71 18 109/61 98 Intake and Output 03/12/23 03/12/23 03/12/23 06:59 14:59 22:59 Other: Weight 81.647 kg 81.647 kg Results CBC & Chem 7: 03/12/23 11:40 03/12/23 11:40 Labs: Abnormal Lab Results - Last 24 Hours (Table) 03/12/23 03/12/23 03/12/23 Range/Units 11:40 11:40 11:40 RBC 2.57 L (4.30-5.90) m/uL Hgb 7.7 L (13.0-17.5) gm/dL Hct 24.7 L (39.0-53.0) % RDW 19.4 H (11.5-15.5) % Lymphocytes # 0.4 L (1.0-4.8) k/uL PT 13.7 H (9.0-12.0) sec INR 1.4 H (<1.2) Carbon Dioxide 31 H (22-30) mmol/L BUN 55 H (9-20) mg/dL Creatinine 1.70 H (0.66-1.25) mg/dL Glucose 110 H (74-99) mg/dL Total Bilirubin 1.4 H (0.2-1.3) mg/dL AST 188 H (17-59) U/L ALT 103 H (4-49) U/L Total Protein 5.6 L (6.3-8.2) g/dL Albumin 3.1 L (3.5-5.0) g/dL Thrombosis Risk Factor Assmnt - Choose All That Apply Any of the Below Risk Factors Present?: Yes Each Factor Represents 1 point: Swollen legs (current) Other Risk Factors: Yes Each Risk Factor Represents 2 Points: Age 61-74 years Other congenital or acquired thrombophilia - If yes, enter type in comment: No Thrombosis Risk Factor Assessment Total Risk Factor Score: 3 Thrombosis Risk Factor Assessment Level: Moderate Risk
[2023-03-12] MEDS: ALPRAZolam 0.25 MG TAB PO PRN (22:22)
[2023-03-12] MEDS: ATORVASTATIN 80 MG TAB PO SCH (22:23)
[2023-03-12] MEDS: VIT A,C & E-LUTEIN-MINERALS 1 EACH TAB PO SCH (22:23)
[2023-03-12] MEDS: HYDROcodone/APAP 10-325MG 1 EACH TAB PO PRN (23:33)
[2023-03-13 06:58] LABS: Glucose,Whole Blood 103 mg/dL (70-110)
[2023-03-13] MEDS: ACETAMINOPHEN TAB 325 MG TAB PO PRN (07:09)
--- NOTE | 2023-03-13 08:20 | XR ---
EXAMINATION TYPE: XR chest 1V portable DATE OF EXAM: 03/13/2023 Comparison: 03/12/2023 Clinical History: 73-year-old male CHF Findings: Suture anchors at the humeral heads from prior catheters. Loss of disc space particularly on the righ t suggests rotator cuff re-tear. Median sternotomy wires. Annuloplasty ring noted in the heart. Interstitial prominence persists with patchy bibasilar densities and small effusions without significant change. Impression: Similar mild CHF with pulmonary vascular congestion along with small pleural effusions with adjacent atelectasis and/or consolidation.
[2023-03-13] MEDS: MULTIVITAMINS, THERA 1 EACH TAB PO SCH (08:59)
[2023-03-13] MEDS: METOPROLOL TARTRATE 25 MG TAB PO SCH (08:59)
[2023-03-13] MEDS: ASPIRIN 81 MG PO SCH (08:59)
[2023-03-13] MEDS: CHOLECALCIFEROL 125 MCG (5000 IU) TABLET PO SCH (08:59)
[2023-03-13] MEDS ORDERED: PIOGLITAZONE 15 MG TAB PO SCH (09:00)
[2023-03-13] MEDS: VIT A,C & E-LUTEIN-MINERALS 1 EACH TAB PO SCH ×2 (09:00→20:54)
[2023-03-13] MEDS ORDERED: NON FORMULARY DRUG (Liraglutide [Victoza 3-Pak] 0.6 MG/0.1 ML Ml) SQ SCH (09:00)
[2023-03-13] MEDS: IPRATROPIUM-ALBUTEROL 3 ML NEB INHALATION SCH ×4 (09:23→20:34)
[2023-03-13] MEDS: SYMBICORT 80-4.5 MCG INHALER INHALATION SCH ×2 (09:23→20:34)
[2023-03-13] MEDS ORDERED: LIDOCAINE 2% (PF) 20 MG/ML 5 ML VIAL ONE (10:45)
[2023-03-13] MEDS: BUMETANIDE 0.25 MG/ML 10 ML VIAL IV SCH ×2 (10:52→20:55)
--- NOTE | 2023-03-13 11:08 | P.GSCN ---
History of Present Illness Consult date: 03/13/23 Reason for Consult: pleurx cath removal Requesting physician: Beto Bynum History of present illness: This is 73-year-old gentleman who follows outpatient with Dr. Leal for primary care. He has a previous medical history of coronary artery disease with myocardial infarction status post CABG as well as mitral regurgitation status post mitral repair all completed in April 2022, recurrent left pleural effusion status post Pleurx catheter placement in January 2023, chronic atrial fibrillation, COPD, hypertension, hyperlipidemia, chronic kidney disease, and previous tobacco dependence. This gentleman was supposed to follow in the office with Dr. Raines on 03/14/2023 for Pleurx catheter removal as he has had very minimal drainage for the last 5 drainages. Unfortunately he presented to [facility] emergency room yesterday with heart failure symptoms of shortness of breath. BNP was elevated at 24,900. He was started on IV continuously lasix, and admitted for evaluation and treatment. Consultation was placed to cardiology as well as cardiothoracic surgery for Dr. Raines to consider Pleurx catheter removal in-house. Review of Systems Review of systems was completed and was negative except as noted - Cardiovascular Reports leg edema, Reports shortness of breath Past Medical History Past Medical History: Atrial Fibrillation, Coronary Artery Disease (CAD), COPD, Diabetes Mellitus, GI Bleed, Hearing Disorder / Deafness, Hyperlipidemia, Hypertension, Myocardial Infarction ([place]), Renal Disease Additional Past Medical History / Comment(s): postoperative renal failure req uiring dialysis and the patient also developed GI bleed requiring blood transfusions recent significant developed a chronic loculated left-sided pleural effusion. Other comorbidities include COPD, chronic systolic heart failure with an ejection fraction 4045%, hypertension, hyperlipidemia, paroxysmal A. fib Last Myocardial Infarction Date:: 11/2021 History of Any Multi-Drug Resistant Organisms: None Reported Past Surgical History: Back Surgery, Heart Catheterization With Stent, Joint Replacement, Orthopedic Surgery Additional Past Surgical History / Comment(s): BILATERAL KNEE REPLACEMENTS, BI LATERAL SHOULDER SURGERY, ONE CARDIAC STENT, back surgery X2 (lumbar decompression and fusion), BACK INJECTIONS, COLONOSCOPY, BILATERAL CATARACTS REMOVED WITH LENS IMPLANTS, Cardioversion. ganglion cyst rt wrist removed; CABG 3 with mitral valve repair in April 2022, left Pleurx catheter placement on his 2022 Past Anesthesia/Blood Transfusion Reactions: No Reported Reaction Additional Past Anesthesia/Blood Transfusion Reaction / Comm: no issues with blood transfusions Date of Last Stent Placement:: 2000 Past Psychological History: No Psychological Hx Reported Smoking Status: Former smoker - Past Family History Father Family Medical History: No Reported History Mother Family Medical History: No Reported History Medications and Allergies Home Medications Medication Instructions Recorded Confirmed Type Vit C/E/Zn/Coppr/Lutein/Zeaxan 1 cap PO BID 02/19/17 03/12/23 History [Preservision Areds 2 Softgel] Fluticasone/Umeclidin/Vilanter 1 puff INHALATION RT-HS@2100 11/09/21 03/12/23 History [Trelegy Ellipta 100-62.5-25] Aspirin 81 mg PO DAILY 05/19/22 03/12/23 History Metoprolol Tartrate [Lopressor] 25 mg PO DAILY 05/19/22 03/12/23 History Furosemide [Lasix] 40 mg PO BID 30 Days #60 tablet 05/30/22 03/12/23 Rx Liraglutide [Victoza 3-Casey] 1.8 mg SQ DAILY 10/17/22 03/12/23 History Atorvastatin [Lipitor] 80 mg PO HS 11/07/22 03/12/23 History Cholecalciferol (Vitamin D3) 1,250 mcg PO DAILY 11/07/22 03/12/23 History [Vitamin D3] Ipratropium/Albuter 20-100Mcg 1 puff INHALATION RT-Q6H PRN 11/07/22 03/12/23 History [Combivent Respimat 20-100Mcg Inhaler] Multivitamins, Thera [Multivitamin 1 tab PO DAILY 11/07/22 03/12/23 History (formulary)] Pioglitazone [Actos] 15 mg PO DAILY 11/07/22 03/12/23 History Acetaminophen Tab [Tylenol Tab] 1,000 mg PO Q6HR PRN 03/12/23 03/12/23 History Albuterol Nebulized [Ventolin 1.25 mg INHALATION RT-QID 03/12/23 03/12/23 Histo ry Nebulized (Accuneb)] HYDROcodone/APAP 10-325MG [[place] 1 tab PO BID PRN 03/12/23 03/12/23 History 10-325] Allergies Allergy/AdvReac Type Severity Reaction Status Date / Time protamine Allergy Anaphylaxis Verified 03/12/23 14:09 apixaban [From Eliquis] AdvReac "stomach Verified 03/12/23 14:09 bleeds" dapagliflozin [From Farxiga] AdvReac Itching Verified 03/12/23 14:09 empagliflozin AdvReac Itching Verified 03/12/23 14:09 [From Jardiance] Surgical - Exam Vital Signs Temp Pulse Resp BP Pulse Ox 97.9 F 71 18 109/61 98 03/12/23 11:24 03/12/23 11:24 03/12/23 11:24 03/12/23 11:24 03/12/23 11:24 CONSTITUTIONAL: Awake and alert, appears comfortable, cooperative, well- developed, well-nourished, no pain, no acute distress EYES: Pupils equal, round, reactive to light, normal ocular movement ENT: Moist mucous membranes without oral lesions present NECK: No masses, no bruits, trachea midline RESPIRATORY: Lungs sounds diminished bilaterally. Respirations even, nonlabored. Currently on 2 L nasal with oxygen saturation 93%. Strong cough. Left sided Pleurx present under clean dry dressing CARDIOVASCULAR: S1, S2 present. Irregular rate and rhythm, controlled atrial fibrillation on telemetry. Palpable peripheral pulses bilaterally. Bilateral lower extremity edema present GASTROINTESTINAL: Abdomen soft, nontender, nondistended without masses or organomegaly noted. There is no rebound or guarding present. Active bowel sounds present 4 quadrants. GENITOURINARY: Deferred INTEGUMENTARY: Skin is warm and dry with evidence of good perfusion. NEUROLOGIC: Cranial nerves II through XII intact, normal coordination, no obvious motor or sensory deficits, speech is normal MUSKULOSKELETAL: Able to move all extremities, strength equal bilaterally, normal posture PSYCHIATRIC: Alert and oriented to person place and time, appropriate affect, intact judgment and insight Results - Labs 03/12/23 11:40 03/12/23 11:40 Abnormal Lab Results - Last 24 Hours (Table) 03/12/23 03/12/23 03/12/23 Range/Units 11:40 11:40 11:40 RBC 2.57 L (4.30-5.90) m/uL Hgb 7.7 L (13.0-17.5) gm/dL Hct 24.7 L (39.0-53.0) % RDW 19.4 H (11.5-15.5) % Lymphocytes # 0.4 L (1.0-4.8) k/uL PT 13.7 H (9.0-12.0) sec INR 1.4 H (<1.2) Carbon Dioxide 31 H (22-30) mmol/L BUN 55 H (9-20) mg/dL Creatinine 1.70 H (0.66-1.25) mg/dL Glucose 110 H (74-99) mg/dL Total Bilirubin 1.4 H (0.2-1.3) mg/dL AST 188 H (17-59) U/L ALT 103 H (4-49) U/L Total Protein 5.6 L (6.3-8.2) g/dL Albumin 3.1 L (3.5-5.0) g/dL Diabetes panel 03/12/23 Range/Units 11:40 Sodium 137 (137-145) mmol/L Potassium 4.5 (3.5-5.1) mmol/L Chloride 100 (98-107) mmol/L Carbon Dioxide 31 H (22-30) mmol/L BUN 55 H (9-20) mg/dL Creatinine 1.70 H (0.66-1.25) mg/dL Glucose 110 H (74-99) mg/dL Calcium 8.5 (8.4-10.2) mg/dL AST 188 H (17-59) U/L ALT 103 H (4-49) U/L Alkaline Phosphatase 49 (38-126) U/L Total Protein 5.6 L (6.3-8.2) g/dL Albumin 3.1 L (3.5-5.0) g/dL Calcium panel 03/12/23 Range/Units 11:40 Calcium 8.5 (8.4-10.2) mg/dL Albumin 3.1 L (3.5-5.0) g/dL Pituitary panel 03/12/23 Range/Units 11:40 Sodium 137 (137-145) mmol/L Potassium 4.5 (3.5-5.1) mmol/L Chloride 100 (98-107) mmol/L Carbon Dioxide 31 H (22-30) mmol/L BUN 55 H (9-20) mg/dL Creatinine 1.70 H (0.66-1.25) mg/dL Glucose 110 H (74-99) mg/dL Calcium 8.5 (8.4-10.2) mg/dL Adrenal panel 03/12/23 Range/Units 11:40 Sodium 137 (137-145) mmol/L Potassium 4.5 (3.5-5.1) mmol/L Chloride 100 (98-107) mmol/L Carbon Dioxide 31 H (22-30) mmol/L BUN 55 H (9-20) mg/dL Creatinine 1.70 H (0.66-1.25) mg/dL Glucose 110 H (74-99) mg/dL Calcium 8.5 (8.4-10.2) mg/dL Total Bilirubin 1.4 H (0.2-1.3) mg/dL AST 188 H (17-59) U/L ALT 103 H (4-49) U/L Alkaline Phosphatase 49 (38-126) U/L Total Protein 5.6 L (6.3-8.2) g/dL Albumin 3.1 L (3.5-5.0) g/dL - Imaging Chest x-ray: report reviewed, image reviewed Assessment and Plan Assessment: Acute on chronic systolic heart failure Shortness of breath secondary to above History of coronary artery disease with myocardial infarction status post CABG as well as mitral regurgitation status post mitral repair all completed in April 2022 Recurrent left pleural effusion status post Pleurx catheter placement in January 2023 Chronic atrial fibrillation COPD Hypertension Hyperlipidemia Chronic kidney disease Previous tobacco dependence Plan: The patient was seen and examined this morning with Dr. Raines in bed in no acute distress. Remains on IV Lasix. We will remove his Pleurx cath at the bedside. Follow-up chest x-ray. Continue medical management per internal medicine and cardiology. Once acute heart failure has been resolved patient may be discharged home from our standpoint. Thank you Dr. Bynum for this consult. I have personally seen and examined the patient, performed the documentation and the assessment and plan as written. Number of minutes spent on the visit: 30. ANDRE Alcaraz
[2023-03-13 11:39] LABS: Glucose,Whole Blood 178 mg/dL (70-110)
[2023-03-13 12:29] LABS: Anisocytosis Slight; Basophils % (A) 0 %; Eosinophils # (A) 0.3 k/uL (0-0.7); Eosinophils % (A) 3 %; HCT 25.4 % (39.0-53.0); HGB 7.7 gm/dL (13.0-17.5); Hypochromasia Marked; Lymphocytes # (A) 0.4 k/uL (1.0-4.8); Lymphocytes % (A) 5 %; MCH 29.7 pg (25.0-35.0); MCHC 30.4 g/dL (31.0-37.0); MCV 97.6 fL (80.0-100.0); Macrocytosis Slight; Mean Platelet Volume 8.8; Monocytes # (A) 0.6 k/uL (0-1.0); Monocytes % (A) 7 %; Neutrophils # (A) 7.2 k/uL (1.3-7.7); Neutrophils % (A) 83 %; Platelet Count 206 k/uL (150-450); RDW 19.1 % (11.5-15.5); WBC 8.7 k/uL (3.8-10.6)
--- NOTE | 2023-03-13 12:54 | P.NPCON ---
History of Present Illness - Reason for Consult acute renal failure - History of Present Illness Patient is a 73-year-old male with history of hypertension, type 2 diabetes, COPD, cardiomyopathy with ejection fraction of 40-45%. Patient is admitted to the hospital with complaints of increasing shortness of breath and swelling in the legs. Patient reports that he had small amounts of urine and noticed an increase in frequency. No prior history of kidney diseases. Serum creatinine was 1.7 mg/dL. Prior creatinine 1.5 on 01/15/2023. Blood pressure has been low with systolic at 94 mmHg. He is not maintained on SUSAN inhibitor's or angiotensin receptor blockers. No history of use of NSAIDs. Currently maintained on IV Lasix. Review of Systems As per HPI Past Medical History Past Medical History: Atrial Fibrillation, Coronary Artery Disease (CAD), COPD, Diabetes Mellitus, GI Bleed, Hearing Disorder / Deafness, Hyperlipidemia, Hyp ertension, Myocardial Infarction (DC), Renal Disease Additional Past Medical History / Comment(s): postoperative renal failure requiring dialysis and the patient also developed GI bleed requiring blood transfusions recent significant developed a chronic loculated left-sided pleural effusion. Other comorbidities include COPD, chronic systolic heart failure with an ejection fraction 4045%, hypertension, hyperlipidemia, paroxysmal A. fib Last Myocardial Infarction Date:: 11/2021 History of Any Multi-Drug Resistant Organisms: None Reported Past Surgical History: Back Surgery, Heart Catheterization With Stent, Joint Replacement, Orthopedic Surgery Additional Past Surgical History / Comment(s): BILATERAL KNEE REPLACEMENTS, BILATERAL SHOULDER SURGERY, ONE CARDIAC STENT, back surgery X2 (lumbar decompression and fusion), BACK INJECTIONS, COLONOSCOPY, BILATERAL CATARACTS REMOVED WITH LENS IMPLANTS, Cardioversion. ganglion cyst rt wrist removed; CABG 3 with mitral valve repair in April 2022, left Pleurx catheter placement on his third 2022 Past Anesthesia/Blood Transfusion Reactions: No Reported Reaction Additional Past Anesthesia/Blood Transfusion Reaction / Comment(s): no issues with blood transfusions Date of Last Stent Placement:: 2000 Past Psychological History: No Psychological Hx Reported Smoking Status: Former smoker - Past Family History Father Family Medical History: No Reported History Mother Family Medical History: No Reported History Medications and Allergies Home Medications Medication Instructions Recorded Confirmed Type Vit C/E/Zn/Coppr/Lutein/Zeaxan 1 cap PO BID 02/19/17 03/12/23 History [Preservision Areds 2 Softgel] Fluticasone/Umeclidin/Vilanter 1 puff INHALATION RT-HS@2100 11/09/21 03/12/23 History [Trelegy Ellipta 100-62.5-25] Aspirin 81 mg PO DAILY 05/19/22 03/12/23 History Metoprolol Tartrate [Lopressor] 25 mg PO DAILY 05/19/22 03/12/23 History Furosemide [Lasix] 40 mg PO BID 30 Days #60 tablet 05/30/22 03/12/23 Rx Liraglutide [Victoza 3-Casey] 1.8 mg SQ DAILY 10/17/22 03/12/23 History Atorvastatin [Lipitor] 80 mg PO HS 11/07/22 03/12/23 History Cholecalciferol (Vitamin D3) 1,250 mcg PO DAILY 11/07/22 03/12/23 History [Vitamin D3] Ipratropium/Albuter 20-100Mcg 1 puff INHALATION RT-Q6H PRN 11/07/22 03/12/23 History [Combivent Respimat 20-100Mcg Inhaler] Multivitamins, Thera [Multivitamin 1 tab PO DAILY 11/07/22 03/12/23 History (formulary)] Pioglitazone [Actos] 15 mg PO DAILY 11/07/22 03/12/23 History Acetaminophen Tab [Tylenol Tab] 1,000 mg PO Q6HR PRN 03/12/23 03/12/23 History Albuterol Nebulized [Ventolin 1.25 mg INHALATION RT-QID 03/12/23 03/12/23 History Nebulized (Accuneb)] HYDROcodone/APAP 10-325MG [[place] 1 tab PO BID PRN 03/12/23 03/12/23 History 10-325] Allergies Allergy/AdvReac Type Severity Reaction Status Date / Time protamine Allergy Anaphylaxis Verified 03/12/23 14:09 apixaban [From Eliquis] AdvReac "stomach Verified 03/12/23 14:09 bleeds" dapagliflozin [From Farxiga] AdvReac Itching Verified 03/12/23 14:09 empagliflozin AdvReac Itching Verified 03/12/23 14:09 [From Jardiance] Physical Exam Vitals: Vital Signs Temp Pulse Pulse Resp BP BP Pulse Ox 03/13/23 12:00 98 F 75 16 104/66 98 03/13/23 09:38 96 03/13/23 09:23 92 03/13/23 08:00 97.7 F 91 18 99/60 93 L 03/13/23 04:00 98 F 82 18 108/64 97 03/13/23 02:00 18 03/13/23 00:00 20 120/61 98 03/12/23 21:02 97 03/12/23 21:00 98.1 F 88 22 124/72 97 03/12/23 20:02 100 03/12/23 19:54 100 03/12/23 16:15 98 F 60 18 124/65 100 03/12/23 15:00 76 18 102/64 92 L Intake and Output 03/12/23 03/13/23 03/13/23 22:59 06:59 14:59 Intake Total 79.667 160 300 Output Total 2150 600 Balance 79.667 -1990 -300 Intake: Intake, IV Titration 79.667 Amount Furosemide 100 mg In 79.667 Sodium Chloride 0.9% 90 ml @ 10 MG/HR 10 mls/hr IV .Q10H [facility] Rx#: [id number] Oral 160 300 Output: Urine 2150 600 Other: Voiding Method Toilet Indwelling Catheter Indwelling Catheter Urinal Incontinent Weight 81.647 kg Patient is awake, comfortable, no acute distress Examination of the heart S1 and S2 Examination of the lungs bilateral breath sounds are heard, basal crackles are heard Abdomen is soft nontender Examination lower extremity shows edema 2+ bilaterally CADDY PACKER exam grossly intact Results - Lab Results Most recent lab results Calcium 8.5 mg/dL (8.4-10.2) 03/12/23 11:40 03/13/23 11:27 03/12/23 11:40 Assessment and Plan Assessment: 1. JENIFFER, cardiorenal, nonoliguric, currently being diuresed. Check U/A and USS kidneys. 2. 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 Previous U/A in 2021 shows no proteinuria. 3. volume overload 4. Anemia with no active bleeding. Rule out GI bleed 5. Cardiomyopathy with EF of 40-45% 6. Paroxysmal A. fib Plan: continue with IV Bumex Check ultrasound of the kidneys Check iron profile Repeat labs in a.m. Thank you for the consultation. We will continue to follow the patient with you during his hospitalization.
[2023-03-13 12:56] LABS: ALT 122 U/L (4-49); AST 210 U/L (17-59); African American GFR (CKD) 47 (>60 ml/min/1.73 sqM); Albumin 3.1 g/dL (3.5-5.0); Alkaline Phosphatase 55 U/L (38-126); Anion Gap 6 mmol/L; Blood Urea Nitrogen 58 mg/dL (9-20); Calcium 8.7 mg/dL (8.4-10.2); Carbon Dioxide 35 mmol/L (22-30); Chloride 96 mmol/L (98-107); Glucose 142 mg/dL (74-99); Non-African American GFR(CKD) 40 (>60 ml/min/1.73 sqM); Potassium 3.9 mmol/L (3.5-5.1); Sodium 137 mmol/L (137-145); Total Bilirubin 1.9 mg/dL (0.2-1.3); Total Protein 5.9 g/dL (6.3-8.2)
--- NOTE | 2023-03-13 13:34 | P.PN ---
Progress Note - Text Progress Note Date: 03/13/23 Chief Complaint: Short of breath edema This is a pleasant 73-year-old patient who follows with Dr. Leal. Extensive medical history including atrial fibrillation, CAD, COPD, diabetes, heart of feeding, hypertension, hyperlipidemia, previous coronary bypass, mitral valve repair, EF 40-45%, Patient now presents with worsening short of breath. For at least 3 weeks. Edema is gone up to the lower abdomen. Scrotum is swollen. Decreased appetite. Nausea. No fever no chills. No chest pain. March 13: Admitted with CHF exacerbation. Remains on IV Lasix drip 10 mg hour. About 2000 mL negative fluid balance. Significant edema. at the bedside. Breathing a bit better. Today patient changed over to Bumex 1 mg every 12 by cardiology. Active Medications Acetaminophen (Acetaminophen Tab 325 Mg Tab) 650 mg PO Q6HR PRN PRN Reason: Mild Pain or Fever > 100.5 Last Admin: 03/13/23 07:09 Dose: 650 mg Hydrocodone Bitart/Acetaminophen (Hydrocodone/Apap 10-325mg 1 Each Tab) 1 each PO BID PRN PRN Reason: Pain Last Admin: 03/12/23 23:33 Dose: 1 each Albuterol/Ipratropium (Ipratropium-Albuterol 3 Ml Neb) 3 ml INHALATION RT-Q6H PRN PRN Reason: Shortness Of Breath Albuterol/Ipratropium (Ipratropium-Albuterol 3 Ml Neb) 3 ml INHALATION RT-QID [facility] Last Admin: 03/13/23 13:05 Dose: 3 ml Alprazolam (Alprazolam 0.25 Mg Tab) 0.25 mg PO Q6HR PRN PRN Reason: Anxiety Last Admin: 03/12/23 22:22 Dose: 0.25 mg Aspirin (Aspirin 81 Mg) 81 mg PO DAILY [facility] Last Admin: 03/13/23 08:59 Dose: 81 mg Atorvastatin Calcium (Atorvastatin 80 Mg Tab) 80 mg PO HS [facility] Last Admin: 03/12/23 22:23 Dose: 80 mg Budesonide/Formoterol Fumarate (Symbicort 80-4.5 Mcg Inhaler) 2 puff INHALATION RT-BID [facility] Last Admin: 03/13/23 09:23 Dose: 2 puff Bumetanide (Bumetanide 0.25 Mg/Ml 10 Ml Vial) 1 mg IV Q12HR [facility] Last Admin: 03/13/23 10:52 Dose: 1 mg Calcium Carbonate/Glycine (Calcium Carbonate 500 Mg Chewable) 1,000 mg PO Q4HR PRN PRN Reason: Dyspepsia Cholecalciferol (Cholecalciferol 125 Mcg (5000 Iu) Tablet) 125 mcg PO DAILY [facility] Last Admin: 03/13/23 08:59 Dose: 125 mcg Lactulose (Lactulose 20 Gm/30 Ml Cup) 20 gm PO DAILY PRN PRN Reason: Constipation Metoprolol Tartrate (Metoprolol Tartrate 25 Mg Tab) 25 mg PO DAILY [facility] Last Admin: 03/13/23 08:59 Dose: 25 mg Multivitamins (Multivitamins, Thera 1 Each Tab) 1 each PO DAILY [facility] Last Admin: 03/13/23 08:59 Dose: 1 each Multivitamins/Minerals (Vit A,C & O-Pobijv-Xvwyfolw 1 Each Tab) 1 each PO BID [facility] Last Admin: 03/13/23 09:00 Dose: 1 each Naloxone HCl (Naloxone 0.4 Mg/Ml 1 Ml Vial) 0.2 mg IV Q2M PRN PRN Reason: Opioid Reversal Ondansetron HCl (Ondansetron 4 Mg/2 Ml Vial) 4 mg IVP Q8HR PRN PRN Reason: Nausea And Vomiting Last Admin: 03/13/23 10:12 Dose: 4 mg Temazepam (Temazepam 15 Mg Cap) 15 mg PO HS PRN PRN Reason: Insomnia Social history: Patient smoked for 55 years, stopped last year. No alcohol. Does use CBD for back pain. Physical examination: VITAL SIGNS: 98, 75, 16, 104/66, 98% on 2 L GENERAL: Declining in bed, a bit short of breath EYES: Pupils equal. Conjunctiva normal. HEENT: External appearance of nose and ears normal, oral cavity grossly normal. NECK: JVD raised; masses not palpable. HEART: First and second heart sounds are normal; gross edema up to the lower abdomen. LUNGS: Respiratory rate increased; decreased breath sounds. ABDOMEN: Soft, distended, abdominal wall edema nontender, liver spleen not palpable, no masses palpable. Scrotal edema PSYCH: Alert and oriented x3; mood and affect normal. MUSCULOSKELETAL:No Clubbing/cyanosis;muscles-grossly intact INVESTIGATIONS, reviewed in the clinical context: March 13: White count 8.7 hemoglobin 7.7 potassium 3.9 BUN 58 creatinine 1.65 March 12: White count 8.4 hemoglobin 7.7 platelets 206 sodium 137 potassium 4.5 BUN 55 creatinine 1.7 total bilirubin 1.4 AST 188 ALT 103 albumin 3.1 pro BNP [id number] Troponin I 0.034 EKG tracing personally reviewed by me-normal sinus rhythm. Some ST-T wave changes. Chest x-ray film personally reviewed by me-cardiomegaly. Pulmonary edema. Assessment and plan: -Acute on chronic congestive heart exacerbation. Systolic dysfunction EF known to be 40-45%: Slow to respond Lasix drip 10 mg per hour-changed over to Bumex 1 mg IV every 12. . Strict I's and O's. Fluid restriction 1500 mL day. Follow labs closely Cardiology following. 2-D echo-pending. -COPD in a previous smoker DuoNeb 4 times a day. Symbicort 2 puffs twice a day -Hyperlipidemia Lipitor 80 mg daily at bedtime-hold Lipitor for now because of elevated LFTs -CK D STAGE III suspect nephrosclerosis Follow renal function closely -Diabetes mellitus type 2 on oral hypoglycemic Actos 15 mg a day. Follow Accu-Cheks. Victoza -Paroxysmal atrial fibrillation, currently in sinus rhythm -CAD with a prior history of stent, coronary bypass Aspirin. Lipitor -Hard of hearing -Normocytic anemia Check B12, folate -Full code Discussed with patient. Diuretics changed to Bumex 1 mg every 12. Follow strict I's and O's. Fluid restriction. Past Medical History Past Medical History: Atrial Fibrillation, Coronary Artery Disease (CAD), COPD, Diabetes Mellitus, GI Bleed, Hearing Disorder / Deafness, Hyperlipidemia, Hypertension, Myocardial Infarction (LA), Renal Disease Additional Past Medical History / Comment(s): Previous bypass surgery, previous repair of the mitral valve, comp to get postoperative course requiring dialysis for renal failure and the patient also developed GI bleed requiring blood transfusions recent significant developed a chronic loculated left-sided pleural effusion. Other comorbidities include COPD, chronic systolic heart failure with an ejection fraction 4045%, hypertension, hyperlipidemia, paroxysmal A. fib Last Myocardial Infarction Date:: 11/2021 History of Any Multi-Drug Resistant Organisms: None Reported Past Surgical History: Back Surgery, Heart Catheterization With Stent, Joint Replacement, Orthopedic Surgery Additional Past Surgical History / Comment(s): BILATERAL KNEE REPLACEMENTS, BILATERAL SHOULDER SURGERY, ONE CARDIAC STENT, back surgery X2 (lumbar decompression and fusion), BACK INJECTIONS, COLONOSCOPY, BILATERAL CATARACTS REMOVED WITH LENS IMPLANTS, Cardioversion. ganglion cyst rt wrist removed Past Anesthesia/Blood Transfusion Reactions: No Reported Reaction Additional Past Anesthesia/Blood Transfusion Reaction / Comment(s): no issues with blood transfusions Date of Last Stent Placement:: 2000 Past Psychological History: No Psychological Hx Reported Smoking Status: Former smoker - Past Family History Father Family Medical History: No Reported History Mother Family Medical History: No Reported History
--- NOTE | 2023-03-13 13:58 | P.CRDCN ---
History of Present Illness Consult date: 03/13/23 Consult reason: congestive heart failure History of present illness: History of present illness: This is a 73-year-old male patient of Dr. Man with past medical history of coronary artery disease status post CABG, valvular heart disease status post mitral valve repair, history of GI bleed, recurrent left-sided pleural effusion with Pleurx catheter being evaluated for removal, hypertension, hyperlipidemia, persistent atrial fibrillation maintained in sinus rhythm not on chronic anticoagulation due to risk of bleeding, chronic systolic heart failure chronic kidney disease requiring dialysis for short period of time, chronic anemia. We have been asked to evaluate the patient for acute exacerbation of CHF. Patient states that he has had ongoing problems with swelling in his legs up to his groin and abdomen and his had a weight gain of 20 pounds over the past 2 weeks. He states his Lasix was doubled to 40 mg twice daily and it was not working. Patient came into [facility] emergency center for evaluation. Patient was diagnosed with heart failure and started on IV Lasix followed by Lasix drip which was discontinued. EKG sinus rhythm Chest x-ray: Cardiomegaly, pulmonary vascular congestion and small bilateral pleural effusions. Correlate for heart failure. Left pleural pigtail catheter in place WBC 8.7, hemoglobin 7.7, platelet count 206. Sodium 137, potassium 3.9, CO2 35, BUN 58 creatinine 1.65. Blood sugar 142. Total bilirubin 1.9, AST 210, ALT 122. Troponin negative 1. ProBNP 24,900 Home cardiac medications: Aspirin 81 mg daily, atorvastatin 80 mg at bedtime, Lasix 40 mg twice daily, metoprolol tartrate 25 mg daily. Echocardiogram 04/2022 revealed EF of 47%, [id number] MR, repaired MV, moderate left ear, AV peak 46 mmHg, AV mean 20 mmHg Review Of Systems: At the time of my evaluation: Constitutional: No fever, no chills. No weakness, fatigue or lethargy. EENT: No headache. No dizziness. Lungs: + shortness of breath, no cough, no sputum production. No wheezing. Cardiovascular: No chest pain, + lower extremity edema. No palpitations. No paroxysmal nocturnal dyspnea. + orthopnea. No lightheadedness or dizziness. No syncopal episodes. Abdominal: No abdominal pain. No nausea, vomiting. No diarrhea. No constipation. No bloody or tarry stools. Musculoskeletal: No myalgias. No muscle weakness, no frequent falls. Integumentary: No wounds. No rash. No unusual bruising. Neurologic: No aphasia. No facial droop. No change in mentation. Physical examination: Gen: This is a 73-year-old male. He sitting on the edge of the bed and appears to be in no acute distress. VS: reviewed blood pressure 104/66, heart rate in the 80s to 90s, pulse ox 90% on room air. HEENT: Head is atraumatic, normocephalic. Pupils equal, round. Sclerae is anicteric. NECK: Supple. No JVD. . LUNGS: Diminished bilaterally, crackles to the bases. Left-sided Pleurx. No intercostal retractions. HEART: Regular rate and rhythm. 2/6 systolic murmur. ABDOMEN: Soft No tenderness. EXTREMITIES: Bilateral lower extremity edema 2+ up into mid abdomen and sacral area. No calf tenderness. NEUROLOGICAL: Patient is awake, alert and oriented x3. Assessment: Acute on chronic systolic heart failure Persistent atrial fibrillation not on anticoagulation due to bleeding Cardiomyopathy COPD Bilateral pleural effusions with left-sided Pleurx Coronary artery disease with previous CABG Valvular heart disease status post mitral valve repair Hypertension Hyperlipidemia Acute kidney injury and chronic kidney disease stage IIIb Chronic anemia Plan: Resume patient's home cardiac medications Start patient on Bumex 1 mg IV twice daily Monitor I&O, daily weights, electrolytes and renal function Do not repeat echocardiogram. Patient states he had one done in the office last week. Report will be obtained. Patient would benefit from a right cardiac catheterization will be considered down the road. Further recommendations to follow based upon clinical course Cardiothoracic team on 4 possible removal of Pleurx catheter Thank you kindly for this consultation. Nurse practitioner note has been reviewed, I agree with documented findings and plan of care. Patient was seen and examined. Past Medical History Past Medical History: Atrial Fibrillation, Coronary Artery Disease (CAD), COPD, Diabetes Mellitus, GI Bleed, Hearing Disorder / Deafness, Hyperlipidemia, Hypertension, Myocardial Infarction (CT), Renal Disease Additional Past Medical History / Comment(s): Previous bypass surgery, previous repair of the mitral valve, comp to get postoperative course requiring dialysis for renal failure and the patient also developed GI bleed requiring blood transfusions recent significant developed a chronic loculated left-sided pleural effusion. Other comorbidities include COPD, chronic systolic heart failure with an ejection fraction 4045%, hypertension, hyperlipidemia, paroxysmal A. fib Last Myocardial Infarction Date:: 11/2021 History of Any Multi-Drug Resistant Organisms: None Reported Past Surgical History: Back Surgery, Heart Catheterization With Stent, Joint Replacement, Orthopedic Surgery Additional Past Surgical History / Comment(s): BILATERAL KNEE REPLACEMENTS, BILATERAL SHOULDER SURGERY, ONE CARDIAC STENT, back surgery X2 (lumbar decompression and fusion), BACK INJECTIONS, COLONOSCOPY, BILATERAL CATARACTS REMOVED WITH LENS IMPLANTS, Cardioversion. ganglion cyst rt wrist removed Past Anesthesia/Blood Transfusion Reactions: No Reported Reaction Additional Past Anesthesia/Blood Transfusion Reaction / Comment(s): no issues with blood transfusions Date of Last Stent Placement:: 2000 Past Psychological History: No Psychological Hx Reported Smoking Status: Former smoker - Past Family History Father Family Medical History: No Reported History Mother Family Medical History: No Reported History Medications and Allergies Home Medications Medication Instructions Recorded Confirmed Type Vit C/E/Zn/Coppr/Lutein/Zeaxan 1 cap PO BID 02/19/17 03/12/23 History [Preservision Areds 2 Softgel] Fluticasone/Umeclidin/Vilanter 1 puff INHALATION RT-HS@2100 11/09/21 03/12/23 History [Trelegy Ellipta 100-62.5-25] Aspirin 81 mg PO DAILY 05/19/22 03/12/23 History Metoprolol Tartrate [Lopressor] 25 mg PO DAILY 05/19/22 03/12/23 History Furosemide [Lasix] 40 mg PO BID 30 Days #60 tablet 05/30/22 03/12/23 Rx Liraglutide [Victoza 3-Casey] 1.8 mg SQ DAILY 10/17/22 03/12/23 History Atorvastatin [Lipitor] 80 mg PO HS 11/07/22 03/12/23 History Cholecalciferol (Vitamin D3) 1,250 mcg PO DAILY 11/07/22 03/12/23 History [Vitamin D3] Ipratropium/Albuter 20-100Mcg 1 puff INHALATION RT-Q6H PRN 11/07/22 03/12/23 History [Combivent Respimat 20-100Mcg Inhaler] Multivitamins, Thera [Multivitamin 1 tab PO DAILY 11/07/22 03/12/23 History (formulary)] Pioglitazone [Actos] 15 mg PO DAILY 11/07/22 03/12/23 History Acetaminophen Tab [Tylenol Tab] 1,000 mg PO Q6HR PRN 03/12/23 03/12/23 History Albuterol Nebulized [Ventolin 1.25 mg INHALATION RT-QID 03/12/23 03/12/23 History Nebulized (Accuneb)] HYDROcodone/APAP 10-325MG [[place] 1 tab PO BID PRN 03/12/23 03/12/23 History 10-325] Allergies Allergy/AdvReac Type Severity Reaction Status Date / Time protamine Allergy Anaphylaxis Verified 03/12/23 14:09 apixaban [From Eliquis] AdvReac "stomach Verified 03/12/23 14:09 bleeds" dapagliflozin [From Farxiga] AdvReac Itching Verified 03/12/23 14:09 empagliflozin AdvReac Itching Verified 03/12/23 14:09 [From Jardiance] Physical Exam Vitals: Vital Signs Temp Pulse Pulse Resp BP BP Pulse Ox 03/13/23 04:00 98 F 82 18 108/64 97 03/13/23 02:00 18 03/13/23 00:00 20 120/61 98 03/12/23 21:02 97 03/12/23 21:00 98.1 F 88 22 124/72 97 03/12/23 20:02 100 03/12/23 19:54 100 03/12/23 16:15 98 F 60 18 124/65 100 03/12/23 15:00 76 18 102/64 92 L 03/12/23 11:58 98.0 F 20 94/59 92 L 03/12/23 11:29 20 03/12/23 11:24 97.9 F 71 18 109/61 98 Intake and Output 03/12/23 03/13/23 03/13/23 22:59 06:59 14:59 Intake Total 79.667 160 Output Total 2150 Balance 79.667 -1989 Intake: Intake, IV Titration 79.667 Amount Furosemide 100 mg In 79.667 Sodium Chloride 0.9% 90 ml @ 10 MG/HR 10 mls/hr IV .Q10H [facility] Rx#: [id number] Oral 160 Output: Urine 2150 Other: Voiding Method Toilet Indwelling Catheter Urinal Incontinent Weight 81.647 kg Results 03/13/23 11:27 03/13/23 11:27 Cardiac Enzymes 03/12/23 03/12/23 Range/Units 11:40 11:40 AST 188 H (17-59) U/L Troponin I 0.034 (0.000-0.034) ng/mL Coagulation 03/12/23 Range/Units 11:40 PT 13.7 H (9.0-12.0) sec APTT 26.8 (22.0-30.0) sec CBC 03/12/23 Range/Units 11:40 WBC 8.4 (3.8-10.6) k/uL RBC 2.57 L (4.30-5.90) m/uL Hgb 7.7 L (13.0-17.5) gm/dL Hct 24.7 L (39.0-53.0) % Plt Count 206 (150-450) k/uL Comprehensive Metabolic Panel 03/12/23 Range/Units 11:40 Sodium 137 (137-145) mmol/L Potassium 4.5 (3.5-5.1) mmol/L Chloride 100 (98-107) mmol/L Carbon Dioxide 31 H (22-30) mmol/L BUN 55 H (9-20) mg/dL Creatinine 1.70 H (0.66-1.25) mg/dL Glucose 110 H (74-99) mg/dL Calcium 8.5 (8.4-10.2) mg/dL AST 188 H (17-59) U/L ALT 103 H (4-49) U/L Alkaline Phosphatase 49 (38-126) U/L Total Protein 5.6 L (6.3-8.2) g/dL Albumin 3.1 L (3.5-5.0) g/dL Current Medications Generic Name Dose Route Start Last Admin Trade Name Freq PRN Reason Stop Dose Admin Acetaminophen 650 mg 03/12/23 21:02 03/13/23 07:09 Acetaminophen Tab 325 Mg Tab PO 650 mg Q6HR PRN Administration Mild Pain or Fever > 100.5 Hydrocodone Bitart/Acetaminophen 1 each 03/12/23 18:21 03/12/23 23:33 Hydrocodone/Apap 10-325mg 1 Each Tab PO 1 each BID PRN Administration Pain Albuterol/Ipratropium 3 ml 03/12/23 18:21 Ipratropium-Albuterol 3 Ml Neb INHALATION RT-Q6H PRN Shortness Of Breath Albuterol/Ipratropium 3 ml 03/12/23 20:00 03/12/23 19:49 Ipratropium-Albuterol 3 Ml Neb INHALATION 3 ml RT-QID [facility] Administration Alprazolam 0.25 mg 03/12/23 21:02 03/12/23 22:22 Alprazolam 0.25 Mg Tab PO 0.25 mg Q6HR PRN Administration Anxiety Aspirin 81 mg 03/13/23 09:00 Aspirin 81 Mg PO DAILY [facility] Atorvastatin Calcium 80 mg 03/12/23 21:00 03/12/23 22:23 Atorvastatin 80 Mg Tab PO 80 mg HS [facility]ULMA Administration Budesonide/Formoterol Fumarate 2 puff 03/12/23 20:00 03/12/23 19:49 Symbicort 80-4.5 Mcg Inhaler INHALATION 2 puff RT-BID [facility]ULMA Administration Calcium Carbonate/Glycine 1,000 mg 03/12/23 21:02 Calcium Carbonate 500 Mg Chewable PO Q4HR PRN Dyspepsia Cholecalciferol 125 mcg 03/13/23 09:00 Cholecalciferol 125 Mcg (5000 Iu) Tablet PO DAILY [facility] Furosemide 100 mg/ Sodium 100 mls @ 10 mls/hr 03/12/23 14:30 03/12/23 22:29 Chloride IV 10 mg/hr .Q10H ZULMA 10 mls/hr Administration 10 MG/HR Lactulose 20 gm 03/12/23 21:02 Lactulose 20 Gm/30 Ml Cup PO DAILY PRN Constipation Metoprolol Tartrate 25 mg 03/13/23 09:00 Metoprolol Tartrate 25 Mg Tab PO DAILY [facility] Multivitamins 1 each 03/13/23 09:00 Multivitamins, Thera 1 Each Tab PO DAILY [facility] Multivitamins/Minerals 1 each 03/12/23 21:00 03/12/23 22:23 Vit A,C & L-Assphm-Heaohqcq 1 Each Tab PO Not Given BID [facility] Naloxone HCl 0.2 mg 03/12/23 14:37 Naloxone 0.4 Mg/Ml 1 Ml Vial IV Q2M PRN Opioid Reversal Ondansetron HCl 4 mg 03/12/23 21:02 Ondansetron 4 Mg/2 Ml Vial IVP Q8HR PRN Nausea And Vomiting Pioglitazone HCl 15 mg 03/13/23 09:00 Pioglitazone 15 Mg Tab PO DAILY [facility] Temazepam 15 mg 03/12/23 21:02 Temazepam 15 Mg Cap PO HS PRN Insomnia Intake and Output 03/12/23 03/13/23 03/13/23 22:59 06:59 14:59 Intake Total 79.667 160 Output Total 2150 Balance 79 Intake: Intake, IV Titration 79.667 Amount Furosemide 100 mg In 79.667 Sodium Chloride 0.9% 90 ml @ 10 MG/HR 10 mls/hr IV .Q10H [facility] Rx#: [id number] Oral 160 Output: Urine 2150 Other: Voiding Method Toilet Indwelling Catheter Urinal Incontinent Weight 81.647 kg 03/12/23 11:40 03/12/23 11:40
--- NOTE | 2023-03-13 16:02 | P.CNPUL ---
History of Present Illness Consult date: 03/13/23 Requesting physician: Beto Bynum Reason for consult: dyspnea, abnormal CXR/CT Chief complaint: Shortness of breath, swelling History of present illness: This is a very pleasant 73-year-old male patient well known to our practice. He has a history of chronic obstructive pulmonary disease coronary artery disease with previous coronary artery bypass grafting, mitral valve repair, atrial fibr illation, diabetes mellitus, hearing disorder, hyperlipidemia, hypertension, congestive heart failure, chronic loculated left-sided pleural effusion status post Pleurx catheter placement. He presented here to the emergency room yesterday with complaints of increasing shortness of breath and lower extremity and scrotal edema. White count 8.7. Hemoglobin 7.7. Platelets 26. Sodium 137. Potassium 3.9. Bicarb 35. BUN 58. Creatinine 1.65. Close 142. AST 210. ALT 122. ProBNP 24,900. Troponin negative 1. Chest x-ray shows mild congestive heart failure pulmonary vascular congestion and small pleural effusions. Pleurx catheter in place with minimal drainage the last several days plan is to have it removed per CT services. He is seen today in consultation on the selective care unit. He is currently resting comfortably in bed. Awake and alert in no acute distress. He is maintaining good O2 saturations in the mid 90s on 2 L/m per nasal cannula. He is afebrile. Hemodynamically stable. Review of Systems REVIEW OF SYSTEMS: CONSTITUTIONAL: Denies any recent significant weight loss or weight gain. EYES: Denies change in vision. EARS, NOSE, MOUTH, THROAT: Denies headaches, denies sore throat. CARDIOVASCULAR: Denies chest pain, palpitations or syncopal episodes. RESPIRATORY: Positive for shortness of breath, no cough, congestion or hemoptysis. GASTROINTESTINAL: Denies change in appetite, denies abdominal pain GENITOURINARY: Positive for scrotal edema. Denies hematuria, denies infections. MUSKULOSKELETAL: Positive for lower extremity swelling. INTEGUMENTARY: Denies rash, denies eczema. NEUROLOGICAL: Denies recent memory loss, no recent seizure activity. PSYCHIATRIC: Denies anxiety, denies depression. HEMATOLOGIC/LYMPHATIC: Denies anemia, denies enlarged lymph nodes. Past Medical History Past Medical History: Atrial Fibrillation, Coronary Artery Disease (CAD), COPD, Diabetes Mellitus, GI Bleed, Hearing Disorder / Deafness, Hyperlipidemia, Hypertension, Myocardial Infarction ([place]), Renal Disease Additional Past Medical History / Comment(s): Previous bypass surgery, previous repair of the mitral valve, comp to get postoperative course requiring dialysis for renal failure and the patient also developed GI bleed requiring blood transfusions recent significant developed a chronic loculated left-sided pleural effusion. Other comorbidities include COPD, chronic systolic heart failure with an ejection fraction 4045%, hypertension, hyperlipidemia, paroxysmal A. fib Last Myocardial Infarction Date:: 11/2021 History of Any Multi-Drug Resistant Organisms: None Reported Past Surgical History: Back Surgery, Heart Catheterization With Stent, Joint Replacement, Orthopedic Surgery Additional Past Surgical History / Comment(s): BILATERAL KNEE REPLACEMENTS, BILATERAL SHOULDER SURGERY, ONE CARDIAC STENT, back surgery X2 (lumbar decompression and fusion), BACK INJECTIONS, COLONOSCOPY, BILATERAL CATARACTS REMOVED WITH LENS IMPLANTS, Cardioversion. ganglion cyst rt wrist removed Past Anesthesia/Blood Transfusion Reactions: No Reported Reaction Additional Past Anesthesia/Blood Transfusion Reaction / Comment(s): no issues with blood transfusions Date of Last Stent Placement:: 2000 Past Psychological History: No Psychological Hx Reported Smoking Status: Former smoker - Past Family History Father Family Medical History: No Reported History Mother Family Medical History: No Reported History Medications and Allergies Home Medications Medication Instructions Recorded Confirmed Type Vit C/E/Zn/Coppr/Lutein/Zeaxan 1 cap PO BID 02/19/17 03/12/23 History [Preservision Areds 2 Softgel] Fluticasone/Umeclidin/Vilanter 1 puff INHALATION RT-HS@2100 11/09/21 03/12/23 History [Treleradha Ellipta 100-62.5-25] Aspirin 81 mg PO DAILY 05/19/22 03/12/23 History Metoprolol Tartrate [Lopressor] 25 mg PO DAILY 05/19/22 03/12/23 History Furosemide [Lasix] 40 mg PO BID 30 Days #60 tablet 05/30/22 03/12/23 Rx Liraglutide [Victoza 3-Casey] 1.8 mg SQ DAILY 10/17/22 03/12/23 History Atorvastatin [Lipitor] 80 mg PO HS 11/07/22 03/12/23 History Cholecalciferol (Vitamin D3) 1,250 mcg PO DAILY 11/07/22 03/12/23 History [Vitamin D3] Ipratropium/Albuter 20-100Mcg 1 puff INHALATION RT-Q6H PRN 11/07/22 03/12/23 History [Combivent Respimat 20-100Mcg Inhaler] Multivitamins, Thera [Multivitamin 1 tab PO DAILY 11/07/22 03/12/23 History (formulary)] Pioglitazone [Actos] 15 mg PO DAILY 11/07/22 03/12/23 History Acetaminophen Tab [Tylenol Tab] 1,000 mg PO Q6HR PRN 03/12/23 03/12/23 History Albuterol Nebulized [Ventolin 1.25 mg INHALATION RT-QID 03/12/23 03/12/23 History Nebulized (Accuneb)] HYDROcodone/APAP 10-325MG [[place] 1 tab PO BID PRN 03/12/23 03/12/23 History 10-325] Allergies Allergy/AdvReac Type Severity Reaction Status Date / Time protamine Allergy Anaphylaxis Verified 03/12/23 14:09 apixaban [From Eliquis] AdvReac "stomach Verified 03/12/23 14:09 bleeds" dapagliflozin [From Farxiga] AdvReac Itching Verified 03/12/23 14:09 empagliflozin AdvReac Itching Verified 03/12/23 14:09 [From Jardiance] Physical Exam Vitals: Vital Signs Temp Pulse Pulse Resp BP Pulse Ox 03/13/23 14:00 75 16 03/13/23 13:19 80 03/13/23 13:05 80 03/13/23 12:00 98 F 75 16 104/66 98 03/13/23 09:38 96 03/13/23 09:23 92 03/13/23 08:00 97.7 F 91 18 99/60 93 L 03/13/23 04:00 98 F 82 18 108/64 97 03/13/23 02:00 18 03/13/23 00:00 20 120/61 98 03/12/23 21:02 97 03/12/23 21:00 98.1 F 88 22 124/72 97 03/12/23 20:02 100 03/12/23 19:54 100 03/12/23 16:15 98 F 60 18 124/65 100 Intake and Output 03/13/23 03/13/23 03/13/23 06:59 14:59 22:59 Intake Total 160 700 Output Total 2150 600 Balance -1989 100 Intake: Oral 160 700 Output: Urine 2150 600 Other: Voiding Method Indwelling Catheter Indwelling Catheter GENERAL EXAM: Alert, very pleasant 73-year-old male patient, on 2 L nasal cannula, fairly comfortable in no apparent distress. HEAD: Normocephalic. EYES: Normal reaction of pupils, equal size. NOSE: Clear with pink turbinates. THROAT: No erythema or exudates. NECK: No masses, no JVD. CHEST: No chest wall deformity. LUNGS: Equal air entry with crackles in the posterior bases left greater than right. CVS: S1 and S2 normal with no audible murmur, regular rhythm. ABDOMEN: No hepatosplenomegaly, normal bowel sounds, no guarding or rigidity. There is noted scrotal edema. SPINE: No scoliosis or deformity SKIN: No rashes CENTRAL NERVOUS SYSTEM: No focal deficits, tone is normal in all 4 extremities. EXTREMITIES: There is 1-2+ peripheral edema to the lower extremities. Ruben wraps in place. No clubbing, no cyanosis. Peripheral pulses are intact. Results - Laboratory Findings CBC and BMP: 03/13/23 11:27 03/13/23 11:27 PT/INR, D-dimer PT 13.7 sec (9.0-12.0) H 03/12/23 11:40 INR 1.4 (<1.2) H 03/12/23 11:40 Abnormal lab findings: Abnormal Labs 03/12/23 03/12/23 03/12/23 11:40 11:40 11:40 RBC 2.57 L Hgb 7.7 L Hct 24.7 L MCHC RDW 19.4 H Lymphocytes # 0.4 L PT 13.7 H INR 1.4 H Chloride Carbon Dioxide 31 H BUN 55 H Creatinine 1.70 H Glucose 110 H POC Glucose (mg/dL) Total Bilirubin 1.4 H AST 188 H ALT 103 H Total Protein 5.6 L Albumin 3.1 L 03/13/23 03/13/23 03/13/23 11:27 11:27 11:32 RBC 2.60 L Hgb 7.7 L Hct 25.4 L MCHC 30.4 L RDW 19.1 H Lymphocytes # 0.4 L PT INR Chloride 96 L Carbon Dioxide 35 H BUN 58 H Creatinine 1.65 H Glucose 142 H POC Glucose (mg/dL) 178 H Total Bilirubin 1.9 H AST 210 H ALT 122 H Total Protein 5.9 L Albumin 3.1 L - Diagnostic Findings Chest x-ray: image reviewed Assessment and Plan Assessment: Acute on chronic systolic congestive heart failure with a known ejection fraction 40-45% Acute and chronic hypoxemic respiratory failure secondary to above Chronic obstructive pulmonary disease Hyperlipidemia Chronic kidney disease stage III Diabetes mellitus Paroxysmal atrial fibrillation Coronary artery disease with previous coronary artery bypass grafting, stent placement History of mitral valve repair Hearing disorder Former smoker Hypertension Hyperlipidemia Plan: The patient was seen and evaluated Chest x-ray and labs reviewed Currently stable on 2 L nasal cannula Initiated on a Lasix drip, transitioned to IV Bumex Continued on DuoNeb inhalations, Symbicort Titrate the FiO2 as tolerated We will continue to follow and make further recommendations based on his clinical status I have personally seen and examined the patient, performed the documentation and the assessment and plan as written. Number of minutes spent on the visit: 20.
[2023-03-13 16:36] LABS: Glucose,Whole Blood 240 mg/dL (70-110)
[2023-03-13] MEDS: INSULIN ASPART (NovoLOG) 100 UNIT/ML VIAL SQ SCH ×2 (19:31→20:55)
[2023-03-13 20:44] LABS: Glucose,Whole Blood 189 mg/dL (70-110)
[2023-03-13] MEDS: ALPRAZolam 0.25 MG TAB PO PRN (20:55)
[2023-03-13] MEDS: ATORVASTATIN 80 MG TAB PO SCH (20:55)
[2023-03-13] MEDS: HYDROcodone/APAP 10-325MG 1 EACH TAB PO PRN (20:55)
[2023-03-13] MEDS ORDERED: INSULIN ASPART (NovoLOG) 100 UNIT/ML VIAL SQ SCH (21:00)
[2023-03-14 06:08] LABS: Glucose,Whole Blood 166 mg/dL (70-110)
[2023-03-14] MEDS: ACETAMINOPHEN TAB 325 MG TAB PO PRN (06:22)
[2023-03-14] MEDS: INSULIN ASPART (NovoLOG) 100 UNIT/ML VIAL SQ SCH ×4 (06:22→20:30)
[2023-03-14] MEDS: SYMBICORT 80-4.5 MCG INHALER INHALATION SCH ×2 (07:37→21:43)
[2023-03-14] MEDS: IPRATROPIUM-ALBUTEROL 3 ML NEB INHALATION SCH ×4 (07:37→21:44)
[2023-03-14] MEDS: METOPROLOL TARTRATE 25 MG TAB PO SCH (08:12)
[2023-03-14] MEDS: VIT A,C & E-LUTEIN-MINERALS 1 EACH TAB PO SCH ×2 (08:12→20:42)
[2023-03-14] MEDS: ASPIRIN 81 MG PO SCH (08:12)
[2023-03-14] MEDS: CHOLECALCIFEROL 125 MCG (5000 IU) TABLET PO SCH (08:12)
[2023-03-14] MEDS: MULTIVITAMINS, THERA 1 EACH TAB PO SCH (08:12)
[2023-03-14] MEDS: BUMETANIDE 0.25 MG/ML 10 ML VIAL IV SCH ×2 (08:13→20:43)
--- NOTE | 2023-03-14 08:44 | XR ---
EXAMINATION TYPE: XR chest 1V portable DATE OF EXAM: 03/14/2023 HISTORY: post pleurx removal COMPARISON: 03/13/2023 TECHNIQUE: Single view of the chest is submitted. FINDINGS: Left basilar catheter has been removed without sizable pneumothorax identified. Basilar pleural-paren chymal density persists unchanged with small effusions. The heart is stable. Hilar and mediastinal structures are within normal limits. Degenerative changes are seen of the dorsal spine. IMPRESSION: 1. Left basilar catheter has been removed without sizable pneumothorax identified. Basilar pleural-p arenchymal density persists unchanged with small effusions.
[2023-03-14 09:05] LABS: African American GFR (CKD) 43 (>60 ml/min/1.73 sqM); Anion Gap 10 mmol/L; Blood Urea Nitrogen 58 mg/dL (9-20); Calcium 8.9 mg/dL (8.4-10.2); Carbon Dioxide 32 mmol/L (22-30); Chloride 95 mmol/L (98-107); Glucose 178 mg/dL (74-99); Non-African American GFR(CKD) 38 (>60 ml/min/1.73 sqM); Potassium 3.8 mmol/L (3.5-5.1); Sodium 137 mmol/L (137-145)
--- NOTE | 2023-03-14 09:47 | P.PCN ---
Date of Procedure: 03/13/23 Preoperative Diagnosis: History of recurrent left pleural effusion, status post left Pleurx catheter placement Postoperative Diagnosis: Same Procedure(s) Performed: Removal Pleurx catheter Anesthesia: SOFIA, local Surgeon: Hai Raines Estimated Blood Loss (ml): 2 Pathology: none sent Condition: stable Disposition: floor Indications for Procedure: 73-year-old male with previous mitral valve CABG surgery. He has had recurrent left pleural effusions following the surgery. We eventually opted to place a left Pleurx catheter. First catheter has done its job and there is no recurrent pleural effusion and no ongoing drainage from the Pleurx catheter. Patient was admitted for mild episode of CHF and was scheduled to have the purse catheter out in the office later this week. Was decided to go ahead and take it out while he was here in the hospital. Operative Findings: First catheter was removed in its entirety without difficulty. There was good ingrowth into the cuff. Description of Procedure: At the bedside the area of the proximal catheter was sterilely prepped and draped. 2% lidocaine was used for local anesthesia. Blunt dissection was carried out around the cuff and the cuff was freed. The Pleurx catheter was then removed without difficulty. All dry sterile dressing was applied. Patient tolerated the procedure well.
[2023-03-14 11:49] LABS: Glucose,Whole Blood 187 mg/dL (70-110)
--- NOTE | 2023-03-14 12:15 | P.PN ---
Subjective Patient is seen for follow-up for acute kidney injury mostly cardiorenal. Admitted with shortness of breath and increased lower extremity swelling. Currently maintained on IV Bumex 1 mg every 12 hours. Overall patient states he is feeling better. Weight is down quite a bit. 24 hour balance shows -1.4 L. Serum creatinine staying at 1.7 mg/dL. Objective - Vital Signs Vital signs: Vital Signs Temp 97.9 F 03/13/23 20:00 Pulse 83 03/14/23 12:10 Resp 16 03/14/23 11:24 BP 81/61 03/14/23 11:24 Pulse Ox 99 03/14/23 11:24 FiO2 Intake & Output 03/13/23 03/14/23 03/14/23 18:59 06:59 18:59 Intake Total 880 360 Output Total 600 1695 250 Balance 280 -1695 110 Weight 74.1 kg Intake: Oral 880 360 Output: Gastric Drainage 0 Urine 600 1695 250 Stool 0 Urine/Stool Mix 0 Emesis 0 Oral Regurgitation 0 Other 0 Other: Voiding Method Indwelling Catheter Indwelling Catheter Indwelling Catheter # Voids 0 # Bowel Movements 0 - Exam Patient is awake, comfortable, no acute distress Examination of the heart S1 and S2 Examination of the lungs bilateral breath sounds are heard, basal crackles are heard Abdomen is soft nontender Examination lower extremity shows edema 2+ bilaterally RN CVOR exam grossly intact - Labs CBC & Chem 7: 03/13/23 11:27 03/14/23 08:23 Labs: Abnormal Lab Results - Last 24 Hours (Table) 03/13/23 03/13/23 03/13/23 Range/Units 11: 11: 16:31 RBC 2.60 L (4.30-5.90) m/uL Hgb 7.7 L (13.0-17.5) gm/dL Hct 25.4 L (39.0-53.0) % MCHC 30.4 L (31.0-37.0) g/dL RDW 19.1 H (11.5-15.5) % Lymphocytes # 0.4 L (1.0-4.8) k/uL Chloride 96 L (98-107) mmol/L Carbon Dioxide 35 H (22-30) mmol/L BUN 58 H (9-20) mg/dL Creatinine 1.65 H (0.66-1.25) mg/dL Glucose 142 H (74-99) mg/dL POC Glucose (mg/dL) 240 H (70-110) mg/dL Total Bilirubin 1.9 H (0.2-1.3) mg/dL AST 210 H (17-59) U/L ALT 122 H (4-49) U/L Total Protein 5.9 L (6.3-8.2) g/dL Albumin 3.1 L (3.5-5.0) g/dL Vitamin B12 1113.0 H (200.0-944.0) pg/mL 03/13/23 03/14/23 03/14/23 Range/Units 20:42 06:06 08:23 RBC (4.30-5.90) m/uL Hgb (13.0-17.5) gm/dL Hct (39.0-53.0) % MCHC (31.0-37.0) g/dL RDW (11.5-15.5) % Lymphocytes # (1.0-4.8) k/uL Chloride 95 L (98-107) mmol/L Carbon Dioxide 32 H (22-30) mmol/L BUN 58 H (9-20) mg/dL Creatinine 1.75 H (0.66-1.25) mg/dL Glucose 178 H (74-99) mg/dL POC Glucose (mg/dL) 189 H 166 H (70-110) mg/dL Total Bilirubin (0.2-1.3) mg/dL AST (17-59) U/L ALT (4-49) U/L Total Protein (6.3-8.2) g/dL Albumin (3.5-5.0) g/dL Vitamin B12 (200.0-944.0) pg/mL 03/14/23 Range/Units 11:47 RBC (4.30-5.90) m/uL Hgb (13.0-17.5) gm/dL Hct (39.0-53.0) % MCHC (31.0-37.0) g/dL RDW (11.5-15.5) % Lymphocytes # (1.0-4.8) k/uL Chloride (98-107) mmol/L Carbon Dioxide (22-30) mmol/L BUN (9-20) mg/dL Creatinine (0.66-1.25) mg/dL Glucose (74-99) mg/dL POC Glucose (mg/dL) 187 H (70-110) mg/dL Total Bilirubin (0.2-1.3) mg/dL AST (17-59) U/L ALT (4-49) U/L Total Protein (6.3-8.2) g/dL Albumin (3.5-5.0) g/dL Vitamin B12 (200.0-944.0) pg/mL Assessment and Plan Assessment: 1. JENIFFER, cardiorenal, nonoliguric, currently being diuresed. Check U/A and USS kidneys. 2. 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 Previous U/A in 2021 shows no proteinuria. 3. volume overload 4. Anemia with no active bleeding. Rule out GI bleed 5. Cardiomyopathy with EF of 40-45% 6. Paroxysmal A. fib Plan: continue with IV Bumex Check ultrasound of the kidneys Check iron profile Repeat labs in a.m.
--- NOTE | 2023-03-14 13:44 | P.PN ---
Progress Note - Text Progress Note Date: 03/14/23 Chief Complaint: Short of breath edema This is a pleasant 73-year-old patient who follows with Dr. Leal. Extensive medical history including atrial fibrillation, CAD, COPD, diabetes, heart of feeding, hypertension, hyperlipidemia, previous coronary bypass, mitral valve repair, EF 40-45%, Patient now presents with worsening short of breath. For at least 3 weeks. Edema is gone up to the lower abdomen. Scrotum is swollen. Decreased appetite. Nausea. No fever no chills. No chest pain. March 13: Admitted with CHF exacerbation. Remains on IV Lasix drip 10 mg hour. About 2000 mL negative fluid balance. Significant edema. at the bedside. Breathing a bit better. Today patient changed over to Bumex 1 mg every 12 by cardiology. March 14: There is on IV Bumex. 1 mg every 12. Negative fluid balance. Still has significant edema. Upper the thighs. Up in a chair. Oral intake better. Active Medications Acetaminophen (Acetaminophen Tab 325 Mg Tab) 650 mg PO Q6HR PRN PRN Reason: Mild Pain or Fever > 100.5 Last Admin: 03/14/23 06:22 Dose: 650 mg Hydrocodone Bitart/Acetaminophen (Hydrocodone/Apap 10-325mg 1 Each Tab) 1 each PO BID PRN PRN Reason: Pain Last Admin: 03/13/23 20:55 Dose: 1 each Albuterol/Ipratropium (Ipratropium-Albuterol 3 Ml Neb) 3 ml INHALATION RT-Q6H PRN PRN Reason: Shortness Of Breath Albuterol/Ipratropium (Ipratropium-Albuterol 3 Ml Neb) 3 ml INHALATION RT-QID [facility] Last Admin: 03/14/23 12:00 Dose: 3 ml Alprazolam (Alprazolam 0.25 Mg Tab) 0.25 mg PO Q6HR PRN PRN Reason: Anxiety Last Admin: 03/13/23 20:55 Dose: 0.25 mg Aspirin (Aspirin 81 Mg) 81 mg PO DAILY [facility] Last Admin: 03/14/23 08:12 Dose: 81 mg Atorvastatin Calcium (Atorvastatin 80 Mg Tab) 80 mg PO HS [facility] Last Admin: 03/13/23 20:55 Dose: 80 mg Budesonide/Formoterol Fumarate (Symbicort 80-4.5 Mcg Inhaler) 2 puff INHALATION RT-BID [facility] Last Admin: 03/14/23 07:37 Dose: 2 puff Bumetanide (Bumetanide 0.25 Mg/Ml 10 Ml Vial) 1 mg IV Q12HR [facility] Last Admin: 03/14/23 08:13 Dose: 1 mg Calcium Carbonate/Glycine (Calcium Carbonate 500 Mg Chewable) 1,000 mg PO Q4HR PRN PRN Reason: Dyspepsia Cholecalciferol (Cholecalciferol 125 Mcg (5000 Iu) Tablet) 125 mcg PO DAILY [facility] Last Admin: 03/14/23 08:12 Dose: 125 mcg Insulin Aspart (Insulin Aspart (Novolog) 100 Unit/Ml Vial) 0 unit SQ ACHS [facility]; Protocol Last Admin: 03/14/23 12:20 Dose: 2 unit Lactulose (Lactulose 20 Gm/30 Ml Cup) 20 gm PO DAILY PRN PRN Reason: Constipation Last Admin: 03/14/23 11:18 Dose: 20 gm Metoprolol Tartrate (Metoprolol Tartrate 25 Mg Tab) 25 mg PO DAILY [facility] Last Admin: 03/14/23 08:12 Dose: 25 mg Multivitamins (Multivitamins, Thera 1 Each Tab) 1 each PO DAILY [facility] Last Admin: 03/14/23 08:12 Dose: 1 each Multivitamins/Minerals (Vit A,C & F-Qesejt-Muyhoixp 1 Each Tab) 1 each PO BID [facility] Last Admin: 03/14/23 08:12 Dose: 1 each Naloxone HCl (Naloxone 0.4 Mg/Ml 1 Ml Vial) 0.2 mg IV Q2M PRN PRN Reason: Opioid Reversal Ondansetron HCl (Ondansetron 4 Mg/2 Ml Vial) 4 mg IVP Q8HR PRN PRN Reason: Nausea And Vomiting Last Admin: 03/13/23 10:12 Dose: 4 mg Temazepam (Temazepam 15 Mg Cap) 15 mg PO HS PRN PRN Reason: Insomnia Social history: Patient smoked for 55 years, stopped last year. No alcohol. Does use CBD for back pain. Physical examination: VITAL SIGNS: Afebrile, 80, 16, 81/61, 99% on 2 L GENERAL: Up in a chair, but tired EYES: Pupils equal. Conjunctiva normal. HEENT: External appearance of nose and ears normal, oral cavity grossly normal. NECK: JVD raised; masses not palpable. HEART: First and second heart sounds are normal; gross edema up to the lower abdomen. LUNGS: Respiratory rate increased; decreased breath sounds. ABDOMEN: Soft, distended, abdominal wall edema nontender, liver spleen not palpable, no masses palpable. Edema up to the thighs PSYCH: Alert and oriented x3; mood and affect normal. MUSCULOSKELETAL:No Clubbing/cyanosis;muscles-grossly intact INVESTIGATIONS, reviewed in the clinical context: March 14: Potassium 3.8 BUN 58 creatinine 1.75 March 13: White count 8.7 hemoglobin 7.7 potassium 3.9 BUN 58 creatinine 1.65 March 12: White count 8.4 hemoglobin 7.7 platelets 206 sodium 137 potassium 4.5 BUN 55 creatinine 1.7 total bilirubin 1.4 AST 188 ALT 103 albumin 3.1 pro BNP 70977 Troponin I 0.034 EKG tracing personally reviewed by me-normal sinus rhythm. Some ST-T wave changes. Chest x-ray film personally reviewed by me-cardiomegaly. Pulmonary edema. B12 1113. Folate 27.8 Assessment and plan: -Acute on chronic congestive heart exacerbation. Systolic dysfunction EF known to be 40-45%: Slow to respond Bumex 1 mg IV every 12. . Strict I's and O's. Fluid restriction 1500 mL day. Follow labs closely Cardiology following. 2-D echo-pending. -COPD in a previous smoker DuoNeb 4 times a day. Symbicort 2 puffs twice a day -Hyperlipidemia Lipitor 80 mg daily at bedtime-hold Lipitor for now because of elevated LFTs -CK D STAGE III suspect nephrosclerosis Follow renal function closely -Diabetes mellitus type 2 on oral hypoglycemic Actos 15 mg a day. Follow Accu-Cheks. Victoza -Paroxysmal atrial fibrillation, currently in sinus rhythm -CAD with a prior history of stent, coronary bypass Aspirin. Lipitor -Hard of hearing -Normocytic anemia B12, folate-both normal -Full code Discussed with patient . IV Bumex 1 mg every 12. Follow strict I's and O's. Fluid restriction. Past Medical History Past Medical History: Atrial Fibrillation, Coronary Artery Disease (CAD), COPD, Diabetes Mellitus, GI Bleed, Hearing Disorder / Deafness, Hyperlipidemia, Hypertension, Myocardial Infarction ([place]), Renal Disease Additional Past Medical History / Comment(s): Previous bypass surgery, previous repair of the mitral valve, comp to get postoperative course requiring dialysis for renal failure and the patient also developed GI bleed requiring blood transfusions recent significant developed a chronic loculated left-sided pleural effusion. Other comorbidities include COPD, chronic systolic heart failure with an ejection fraction 4045%, hypertension, hyperlipidemia, paroxysmal A. fib Last Myocardial Infarction Date:: 11/2021 History of Any Multi-Drug Resistant Organisms: None Reported Past Surgical History: Back Surgery, Heart Catheterization With Stent, Joint Replacement, Orthopedic Surgery Additional Past Surgical History / Comment(s): BILATERAL KNEE REPLACEMENTS, BILATERAL SHOULDER SURGERY, ONE CARDIAC STENT, back surgery X2 (lumbar decompression and fusion), BACK INJECTIONS, COLONOSCOPY, BILATERAL CATARACTS REMOVED WITH LENS IMPLANTS, Cardioversion. ganglion cyst rt wrist removed Past Anesthesia/Blood Transfusion Reactions: No Reported Reaction Additional Past Anesthesia/Blood Transfusion Reaction / Comment(s): no issues with blood transfusions Date of Last Stent Placement:: 2000 Past Psychological History: No Psychological Hx Reported Smoking Status: Former smoker - Past Family History Father Family Medical History: No Reported History Mother Family Medical History: No Reported History
--- NOTE | 2023-03-14 14:53 | P.PN ---
Subjective Progress Note Date: 03/14/23 Principal diagnosis: Acute on chronic systolic congestive heart failure and acute on chronic hypoxic respiratory failure This is a very pleasant 73-year-old male patient well known to our practice. He has a history of chronic obstructive pulmonary disease coronary artery disease with previous coronary artery bypass grafting, mitral valve repair, atrial fibrillation, diabetes mellitus, hearing disorder, hyperlipidemia, hypertension, congestive heart failure, chronic loculated left-sided pleural effusion status post Pleurx catheter placement. He presented here to the emergency room yesterday with complaints of increasing shortness of breath and lower extremity and scrotal edema. White count 8.7. Hemoglobin 7.7. Platelets 26. Sodium 137. Potassium 3.9. Bicarb 35. BUN 58. Creatinine 1.65. Close 142. AST 210. ALT 122. ProBNP 24,900. Troponin negative 1. Chest x-ray shows mild congestive heart failure pulmonary vascular congestion and small pleural effu sions. Pleurx catheter in place with minimal drainage the last several days plan is to have it removed per CT services. He is seen today in consultation on the selective care unit. He is currently resting comfortably in bed. Awake and alert in no acute distress. He is maintaining good O2 saturations in the mid 90s on 2 L/m per nasal cannula. He is afebrile. Hemodynamically stable. Reevaluated today on 03/14/2023, patient responded well to diuresis/Lasix drip upper admission, and now he remains on diuretics, doing much better feeling great, significant amount of diuresis over the last 24 hours been noted. Patient is on 2 L nasal cannula with O2 sats of 99%, labs are noted BUN is 58 c reatinine 1.75 which is not far off from his baseline. Chest x-ray shows chronic right basilar pleural effusions, and his Pleurx catheter has been removed Objective - Vital Signs Vital signs: Vital Signs Temp 97.9 F 03/13/23 20:00 Pulse 83 03/14/23 12:10 Resp 16 03/14/23 11:24 BP 81/61 03/14/23 11:24 Pulse Ox 99 03/14/23 11:24 FiO2 Intake & Output 03/13/23 03/14/23 03/14/23 18:59 06:59 18:59 Intake Total 880 600 Output Total 600 1695 250 Balance 280 -1695 350 Weight 74.1 kg Intake: Oral 880 600 Output: Gastric Drainage 0 Urine 600 1695 250 Stool 0 Urine/Stool Mix 0 Emesis 0 Oral Regurgitation 0 Other 0 Other: Voiding Method Indwelling Catheter Indwelling Catheter Indwelling Catheter # Voids 0 # Bowel Movements 0 - Exam Physical Exam: Revealed a 73-year-old white male in no distress, on 2 L nasal cannula with O2 saturation 99% HEENT:[Neck is supple.] [No neck masses.] [No thyromegaly.] [No JVD.] Chest: [Diminished breath sounds and crackles at the bases no wheezing Cardiac Exam: [Normal S1 and S2, no S3 gallop, over 6 systolic murmur thought the precordium Abdomen: [Soft, nontender, no megaly, no rebound, no guarding, normal bowel sounds.] Extremities: [No clubbing, 1+ bipedal edema, no cyanosis.] Neurological Exam: [No focal neurologic deficit.] Alert oriented 3 Psychiatric: Normal mood affect and normal mental status examination. Skin: No rashes - Labs CBC & Chem 7: 03/13/23 11:27 03/14/23 08:23 Labs: Abnormal Lab Results - Last 24 Hours (Table) 03/13/23 03/13/23 03/13/23 Range/Units 11:27 16:31 20:42 Chloride (98-107) mmol/L Carbon Dioxide (22-30) mmol/L BUN (9-20) mg/dL Creatinine (0.66-1.25) mg/dL Glucose (74-99) mg/dL POC Glucose (mg/dL) 240 H 189 H (70-110) mg/dL Vitamin B12 1113.0 H (200.0-944.0) pg/mL 03/14/23 03/14/23 03/14/23 Range/Units 06:06 08:23 11:47 Chloride 95 L (98-107) mmol/L Carbon Dioxide 32 H (22-30) mmol/L BUN 58 H (9-20) mg/dL Creatinine 1.75 H (0.66-1.25) mg/dL Glucose 178 H (74-99) mg/dL POC Glucose (mg/dL) 166 H 187 H (70-110) mg/dL Vitamin B12 (200.0-944.0) pg/mL Assessment and Plan Assessment: Impression: Acute on chronic systolic congestive heart failure with a known ejection fraction 40-45% Acute and chronic hypoxemic respiratory failure secondary to above Chronic obstructive pulmonary disease Hyperlipidemia Chronic kidney disease stage III Diabetes mellitus Paroxysmal atrial fibrillation Coronary artery disease with previous coronary artery bypass grafting, stent placement History of mitral valve repair Hearing disorder Former smoker Hypertension Hyperlipidemia Plan: Hold diuretics for today and the patient seems to have responded significantly well to aggressive diuresis and the patient and he is clinically dehydrated Continue to monitor renal status patient is being followed by nephrology however if we hold diuretics to long patient will go back into heart failure and worsening bilateral pleural effusions/pulmonary edema Continued on DuoNeb inhalations, Symbicort Titrate the FiO2 as tolerated We will continue to follow and make further recommendations based on his clinical status Time with Patient: Less than 30
--- NOTE | 2023-03-14 15:53 | US ---
EXAMINATION TYPE: US kidneys/renal and bladder DATE OF EXAM: 03/14/2023 Exam done portable COMPARISON: CT 2013 CLINICAL INDICATION: Male, 73 years old with history of valerie; EXAM MEASUREMENTS: Right Kidney: 9.9 x 5.1 c 4.7 cm Left Kidney: 10.3 x 4.9 x 5.6 cm Right Kidney: No hydronephrosis or masses seen Left Kidney: No hydronephrosis or masses seen Bladder: not well seen, mccain catheter There is no evidence for hydronephrosis at this point in time. No nephrolithiasis is seen. No skyla s are identified. IMPRESSION: No significant abnormality seen.
[2023-03-14 16:19] LABS: Anisocytosis Slight; Basophils % (A) 0 %; Eosinophils # (A) 0.2 k/uL (0-0.7); Eosinophils % (A) 3 %; HCT 25.3 % (39.0-53.0); HGB 7.6 gm/dL (13.0-17.5); Hypochromasia Marked; Lymphocytes # (A) 0.4 k/uL (1.0-4.8); Lymphocytes % (A) 4 %; MCH 29.6 pg (25.0-35.0); MCHC 30.1 g/dL (31.0-37.0); MCV 98.2 fL (80.0-100.0); Macrocytosis Slight; Mean Platelet Volume 9.3; Monocytes # (A) 0.6 k/uL (0-1.0); Monocytes % (A) 7 %; Neutrophils # (A) 7.5 k/uL (1.3-7.7); Neutrophils % (A) 83 %; Platelet Count 196 k/uL (150-450); RBC 2.58 m/uL (4.30-5.90); RDW 19.2 % (11.5-15.5); WBC 9.1 k/uL (3.8-10.6)
[2023-03-14 16:42] LABS: Glucose,Whole Blood 258 mg/dL (70-110)
[2023-03-14 17:07] LABS: % Iron Saturation 9.67 (15.00-50.00)
[2023-03-14 17:51] LABS: Appearance,Urine Clear (Clear); Bilirubin,Urine Negative (Negative); Blood,Urine Negative (Negative); Color,Urine Yellow; Glucose,Urine (UA) Negative (Negative); Ketones,Urine Negative (Negative); Leukocyte Esterase,Urine Trace (Negative); Mucus,Urine Rare /hpf; Nitrite,Urine Negative (Negative); PH, Urine 5.5 (5.0-8.0); Protein,Urine Negative (Negative); RBC,Urine 3 /hpf (0-5); Specific Gravity,Urine 1.013 (1.001-1.035); WBC,Urine 1 /hpf (0-5)
--- NOTE | 2023-03-14 18:22 | P.PN ---
Subjective Progress Note Date: 03/14/23 Progress note: Patient's left-sided Pleurx catheter was removed. Patient reports feeling better in terms of his respirations. His swelling is improved as compared to yesterday. History of present illness: This is a 73-year-old male patient of Dr. Man with past medical history of coronary artery disease status post CABG, valvular heart disease status post mitral valve repair, history of GI bleed, recurrent left-sided pleural effusion with Pleurx catheter being evaluated for removal, hypertension, hyperlipidemia, persistent atrial fibrillation maintained in sinus rhythm not on chronic anticoagulation due to risk of bleeding, chronic systolic heart failure chronic kidney disease requiring dialysis for short period of time, chronic anemia. We have been asked to evaluate the patient for acute exacerbation of CHF. Patient states that he has had ongoing problems with swelling in his legs up to his groin and abdomen and his had a weight gain of 20 pounds over the past 2 weeks. He states his Lasix was doubled to 40 mg twice daily and it was not working. Patient came into [facility] emergency center for evaluation. Patient was diagnosed with heart failure and started on IV Lasix followed by Lasix drip which was discontinued. EKG sinus rhythm Chest x-ray: Cardiomegaly, pulmonary vascular congestion and small bilateral pleural effusions. Correlate for heart failure. Left pleural pigtail catheter in place WBC 8.7, hemoglobin 7.7, platelet count 206. Sodium 137, potassium 3.9, CO2 35, BUN 58 creatinine 1.65. Blood sugar 142. Total bilirubin 1.9, AST 210, ALT 122. Troponin negative 1. ProBNP 24,900 Home cardiac medications: Aspirin 81 mg daily, atorvastatin 80 mg at bedtime, Lasix 40 mg twice daily, metoprolol tartrate 25 mg daily. Echocardiogram 04/2022 revealed EF of 47%, [id number] MR, repaired MV, moderate left ear, AV peak 46 mmHg, AV mean 20 mmHg Physical examination: Gen: This is a 73-year-old male. He sitting on the edge of the bed and appears to be in no acute distress. VS: reviewed blood pressure 104/66, heart rate in the 80s to 90s, pulse ox 90% on room air. HEENT: Head is atraumatic, normocephalic. Pupils equal, round. Sclerae is anicteric. NECK: Supple. No JVD. . LUNGS: Diminished bilaterally, crackles to the bases. Left-sided Pleurx. No intercostal retractions. HEART: Regular rate and rhythm. 2/6 systolic murmur. ABDOMEN: Soft No tenderness. EXTREMITIES: Bilateral lower extremity edema 2+ up into mid abdomen and sacral area. No calf tenderness. NEUROLOGICAL: Patient is awake, alert and oriented x3. Assessment: Acute on chronic systolic heart failure Persistent atrial fibrillation not on anticoagulation due to bleeding Cardiomyopathy COPD Bilateral pleural effusions with left-sided Pleurx Coronary artery disease with previous CABG Valvular heart disease status post mitral valve repair Hypertension Hyperlipidemia Acute kidney injury and chronic kidney disease stage IIIb Chronic anemia Plan: Resume patient's home cardiac medications Continue Bumex 1 mg IV twice daily Monitor I&O, daily weights, electrolytes and renal function Patient would benefit from a right cardiac catheterization will be considered down the road. Further recommendations to follow based upon clinical course Cardiothoracic team on for possible removal of Pleurx catheter Objective - Vital Signs Vital signs: Vital Signs Temp 97.9 F 03/13/23 20:00 Pulse 83 03/14/23 15:36 Resp 16 03/14/23 15:36 BP 83/49 03/14/23 15:36 Pulse Ox 97 03/14/23 15:37 FiO2 Intake & Output 03/13/23 03/14/23 03/14/23 18:59 06:59 18:59 Intake Total 880 600 Output Total 600 1695 650 Balance 280 -1695 -50 Weight 74.1 kg Intake: Oral 880 600 Output: Gastric Drainage 0 Urine 600 1695 650 Stool 0 Urine/Stool Mix 0 Emesis 0 Oral Regurgitation 0 Other 0 Other: Voiding Method Indwelling Catheter Indwelling Catheter Indwelling Catheter # Voids 0 # Bowel Movements 0 - Labs CBC & Chem 7: 03/14/23 16:00 03/14/23 08:23 Labs: Abnormal Lab Results - Last 24 Hours (Table) 03/13/23 03/13/23 03/14/23 Range/Units 11:27 20:42 06:06 RBC (4.30-5.90) m/uL Hgb (13.0-17.5) gm/dL Hct (39.0-53.0) % MCHC (31.0-37.0) g/dL RDW (11.5-15.5) % Lymphocytes # (1.0-4.8) k/uL Chloride (98-107) mmol/L Carbon Dioxide (22-30) mmol/L BUN (9-20) mg/dL Creatinine (0.66-1.25) mg/dL Glucose (74-99) mg/dL POC Glucose (mg/dL) 189 H 166 H (70-110) mg/dL Iron (65-175) UG/DL % Saturation (15.00-50.00) Vitamin B12 1113.0 H (200.0-944.0) pg/mL Ur Leukocyte Esterase (Negative) Urine Mucus (None) /hpf 03/14/23 03/14/23 03/14/23 Range/Units 08:23 08: 11:47 RBC (4.30-5.90) m/uL Hgb (13.0-17.5) gm/dL Hct (39.0-53.0) % MCHC (31.0-37.0) g/dL RDW (11.5-15.5) % Lymphocytes # (1.0-4.8) k/uL Chloride 95 L (98-107) mmol/L Carbon Dioxide 32 H (22-30) mmol/L BUN 58 H (9-20) mg/dL Creatinine 1.75 H (0.66-1.25) mg/dL Glucose 178 H (74-99) mg/dL POC Glucose (mg/dL) 187 H (70-110) mg/dL Iron 38 L (65-175) UG/DL % Saturation 9.67 L (15.00-50.00) Vitamin B12 (200.0-944.0) pg/mL Ur Leukocyte Esterase (Negative) Urine Mucus (None) /hpf 03/14/23 03/14/23 03/14/23 Range/Units 16:00 16:00 16:39 RBC 2.58 L (4.30-5.90) m/uL Hgb 7.6 L (13.0-17.5) gm/dL Hct 25.3 L (39.0-53.0) % MCHC 30.1 L (31.0-37.0) g/dL RDW 19.2 H (11.5-15.5) % Lymphocytes # 0.4 L (1.0-4.8) k/uL Chloride (98-107) mmol/L Carbon Dioxide (22-30) mmol/L BUN (9-20) mg/dL Creatinine (0.66-1.25) mg/dL Glucose (74-99) mg/dL POC Glucose (mg/dL) 258 H (70-110) mg/dL Iron (65-175) UG/DL % Saturation (15.00-50.00) Vitamin B12 (200.0-944.0) pg/mL Ur Leukocyte Esterase Trace H (Negative) Urine Mucus Rare H (None) /hpf
[2023-03-14 20:20] LABS: Glucose,Whole Blood 102 mg/dL (70-110)
[2023-03-14] MEDS: HYDROcodone/APAP 10-325MG 1 EACH TAB PO PRN (20:42)
[2023-03-14] MEDS: ATORVASTATIN 80 MG TAB PO SCH (20:42)
[2023-03-14] MEDS: ALPRAZolam 0.25 MG TAB PO PRN (20:43)
[2023-03-15] MEDS: ACETAMINOPHEN TAB 325 MG TAB PO PRN ×2 (05:05→21:56)
[2023-03-15 05:55] LABS: Glucose,Whole Blood 139 mg/dL (70-110)
[2023-03-15] MEDS: INSULIN ASPART (NovoLOG) 100 UNIT/ML VIAL SQ SCH ×4 (06:24→21:39)
[2023-03-15] MEDS: METOPROLOL TARTRATE 25 MG TAB PO SCH (09:02)
[2023-03-15] MEDS: MULTIVITAMINS, THERA 1 EACH TAB PO SCH (09:03)
[2023-03-15] MEDS: CHOLECALCIFEROL 125 MCG (5000 IU) TABLET PO SCH (09:03)
[2023-03-15] MEDS: BUMETANIDE 0.25 MG/ML 10 ML VIAL IV SCH ×2 (09:03→21:57)
[2023-03-15] MEDS: VIT A,C & E-LUTEIN-MINERALS 1 EACH TAB PO SCH ×2 (09:03→21:56)
[2023-03-15] MEDS: ASPIRIN 81 MG PO SCH (09:03)
[2023-03-15] MEDS: IPRATROPIUM-ALBUTEROL 3 ML NEB INHALATION SCH ×4 (09:05→22:12)
[2023-03-15] MEDS: SYMBICORT 80-4.5 MCG INHALER INHALATION SCH ×2 (09:06→22:12)
[2023-03-15 10:25] LABS: Anisocytosis Slight; Basophils % (A) 0 %; Eosinophils # (A) 0.5 k/uL (0-0.7); Eosinophils % (A) 5 %; HCT 26.7 % (39.0-53.0); HGB 7.9 gm/dL (13.0-17.5); Hypochromasia Marked; Lymphocytes # (A) 0.5 k/uL (1.0-4.8); Lymphocytes % (A) 5 %; MCH 29.4 pg (25.0-35.0); MCHC 29.6 g/dL (31.0-37.0); MCV 99.3 fL (80.0-100.0); Macrocytosis Moderate; Mean Platelet Volume 8.7; Monocytes # (A) 0.8 k/uL (0-1.0); Monocytes % (A) 8 %; Neutrophils # (A) 7.2 k/uL (1.3-7.7); Neutrophils % (A) 79 %; Platelet Count 201 k/uL (150-450); RBC 2.69 m/uL (4.30-5.90); RDW 18.7 % (11.5-15.5); WBC 9.2 k/uL (3.8-10.6)
[2023-03-15 10:42] LABS: African American GFR (CKD) 47 (>60 ml/min/1.73 sqM); Anion Gap 7 mmol/L; Blood Urea Nitrogen 54 mg/dL (9-20); Calcium 8.5 mg/dL (8.4-10.2); Carbon Dioxide 34 mmol/L (22-30); Chloride 97 mmol/L (98-107); Glucose 183 mg/dL (74-99); Non-African American GFR(CKD) 41 (>60 ml/min/1.73 sqM); Potassium 4.3 mmol/L (3.5-5.1); Sodium 138 mmol/L (137-145)
--- NOTE | 2023-03-15 11:25 | P.PN ---
Subjective Patient is seen for follow-up for acute kidney injury mostly cardiorenal. Admitted with shortness of breath and increased lower extremity swelling. Currently maintained on IV Bumex 1 mg every 12 hours. Overall patient states he is feeling better. Weight is down quite a bit. 24 hour balance shows -1.1 L. Serum creatinine down to 1.6 mg/dL. Objective - Vital Signs Vital signs: Vital Signs Temp 98.4 F 03/14/23 20:00 Pulse 84 03/15/23 09:18 Resp 18 03/15/23 09:10 BP 109/59 03/15/23 09:08 Pulse Ox 97 03/15/23 09:08 FiO2 Intake & Output 03/14/23 03/15/23 03/15/23 18:59 06:59 18:59 Intake Total 720 250 Output Total 650 1190 Balance 70 -1190 250 Weight 76.2 kg Intake: IV 10 Invasive Line 1 10 Oral 720 240 Output: Gastric Drainage 0 Urine 650 1190 Stool 0 Urine/Stool Mix 0 Emesis 0 Oral Regurgitation 0 Other 0 Other: Voiding Method Indwelling Catheter Indwelling Catheter Indwelling Catheter # Voids 0 # Bowel Movements 0 - Exam Patient is awake, comfortable, no acute distress Examination of the heart S1 and S2 Examination of the lungs bilateral breath sounds are heard, basal crackles are heard Abdomen is soft nontender Examination lower extremity shows edema 2+ bilaterally SUB PRIOR exam grossly intact - Labs CBC & Chem 7: 03/15/23 09:33 03/15/23 09:33 Labs: Abnormal Lab Results - Last 24 Hours (Table) 03/14/23 03/14/23 03/14/23 Range/Units 08: 11:47 16:00 RBC 2.58 L (4.30-5.90) m/uL Hgb 7.6 L (13.0-17.5) gm/dL Hct 25.3 L (39.0-53.0) % MCHC 30.1 L (31.0-37.0) g/dL RDW 19.2 H (11.5-15.5) % Lymphocytes # 0.4 L (1.0-4.8) k/uL Chloride (98-107) mmol/L Carbon Dioxide (22-30) mmol/L BUN (9-20) mg/dL Creatinine (0.66-1.25) mg/dL Glucose (74-99) mg/dL POC Glucose (mg/dL) 187 H (70-110) mg/dL Iron 38 L (65-175) UG/DL % Saturation 9.67 L (15.00-50.00) Ur Leukocyte Esterase (Negative) Urine Mucus (None) /hpf 03/14/23 03/14/23 03/15/23 Range/Units 16:00 16:39 05:53 RBC (4.30-5.90) m/uL Hgb (13.0-17.5) gm/dL Hct (39.0-53.0) % MCHC (31.0-37.0) g/dL RDW (11.5-15.5) % Lymphocytes # (1.0-4.8) k/uL Chloride (98-107) mmol/L Carbon Dioxide (22-30) mmol/L BUN (9-20) mg/dL Creatinine (0.66-1.25) mg/dL Glucose (74-99) mg/dL POC Glucose (mg/dL) 258 H 139 H (70-110) mg/dL Iron (65-175) UG/DL % Saturation (15.00-50.00) Ur Leukocyte Esterase Trace H (Negative) Urine Mucus Rare H (None) /hpf 03/15/23 03/15/23 Range/Units 09:33 09:33 RBC 2.69 L (4.30-5.90) m/uL Hgb 7.9 L (13.0-17.5) gm/dL Hct 26.7 L (39.0-53.0) % MCHC 29.6 L (31.0-37.0) g/dL RDW 18.7 H (11.5-15.5) % Lymphocytes # 0.5 L (1.0-4.8) k/uL Chloride 97 L (98-107) mmol/L Carbon Dioxide 34 H (22-30) mmol/L BUN 54 H (9-20) mg/dL Creatinine 1.63 H (0.66-1.25) mg/dL Glucose 183 H (74-99) mg/dL POC Glucose (mg/dL) (70-110) mg/dL Iron (65-175) UG/DL % Saturation (15.00-50.00) Ur Leukocyte Esterase (Negative) Urine Mucus (None) /hpf Assessment and Plan Assessment: 1. JENIFFER, cardiorenal, nonoliguric, currently being diuresed. UA is benign. Ultrasound is unremarkable. Renal function has improved. 2. 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 Previous U/A in 2021 shows no proteinuria. 3. volume overload 4. Anemia with no active bleeding. Rule out GI bleed 5. Cardiomyopathy with EF of 40-45% 6. Paroxysmal A. fib Plan: continue with IV Bumex Add IV iron Can try to DC Mooney and do voiding trial.
[2023-03-15 12:34] LABS: Glucose,Whole Blood 184 mg/dL (70-110)
[2023-03-15] MEDS: SODIUM FERRIC GLUCONAT-SUCROSE 125 MG in SODIUM CHLORIDE 0.9% 100 ML IVPB SCH (14:34)
[2023-03-15] MEDS: metOLazone 2.5 MG TAB PO SCH ×2 (14:56→21:17)
--- NOTE | 2023-03-15 16:01 | P.PN ---
Subjective Progress Note Date: 03/15/23 Principal diagnosis: Acute on chronic systolic congestive heart failure and acute on chronic hypoxic respiratory failure This is a very pleasant 73-year-old male patient well known to our practice. He has a history of chronic obstructive pulmonary disease coronary artery disease with previous coronary artery bypass grafting, mitral valve repair, atrial fibrillation, diabetes mellitus, hearing disorder, hyperlipidemia, hypertension, congestive heart failure, chronic loculated left-sided pleural effusion status post Pleurx catheter placement. He presented here to the emergency room yesterday with complaints of increasing shortness of breath and lower extremity and scrotal edema. White count 8.7. Hemoglobin 7.7. Platelets 26. Sodium 137. Potassium 3.9. Bicarb 35. BUN 58. Creatinine 1.65. Close 142. AST 210. ALT 122. ProBNP 24,900. Troponin negative 1. Chest x-ray shows mild congestive heart failure pulmonary vascular congestion and small pleural effu sions. Pleurx catheter in place with minimal drainage the last several days plan is to have it removed per CT services. He is seen today in consultation on the selective care unit. He is currently resting comfortably in bed. Awake and alert in no acute distress. He is maintaining good O2 saturations in the mid 90s on 2 L/m per nasal cannula. He is afebrile. Hemodynamically stable. Reevaluated today on 03/14/2023, patient responded well to diuresis/Lasix drip upper admission, and now he remains on diuretics, doing much better feeling great, significant amount of diuresis over the last 24 hours been noted. Patient is on 2 L nasal cannula with O2 sats of 99%, labs are noted BUN is 58 c reatinine 1.75 which is not far off from his baseline. Chest x-ray shows chronic right basilar pleural effusions, and his Pleurx catheter has been removed Patient was reevaluated today on 03/15/2023, patient is now on IV Bumex 1 mg IV push every 12 hours patient continues to diurese nicely he is actually negative balance 1.1 in the last 24 hours. Creatinine is holding it is down to 1.6. Overall the patient is dramatically improving with diuretics. Not to mention the patient is feeling much better and breathing a lot easier and WBC count is 9.2 hemoglobin 7.9 electrolytes are normal Objective - Vital Signs Vital signs: Vital Signs Temp 97.7 F 03/15/23 11:56 Pulse 74 03/15/23 11:56 Resp 18 03/15/23 11:56 BP 104/59 03/15/23 11:56 Pulse Ox 99 03/15/23 11:56 FiO2 Intake & Output 03/14/23 03/15/23 03/15/23 18:59 06:59 18:59 Intake Total 720 250 Output Total 650 1190 550 Balance 70 -1190 -300 Weight 76.2 kg Intake: IV 10 Invasive Line 1 10 Oral 720 240 Output: Gastric Drainage 0 Urine 650 1190 550 Stool 0 Urine/Stool Mix 0 Emesis 0 Oral Regurgitation 0 Other 0 Other: Voiding Method Indwelling Catheter Indwelling Catheter Indwelling Catheter # Voids 0 # Bowel Movements 0 - Exam Physical Exam: Revealed a 73-year-old white male in no distress, on 2 L nasal cannula HEENT:[Neck is supple.] [No neck masses.] [No thyromegaly.] [No JVD.] Chest: [Diminished breath sounds and crackles at the bases no wheezing Cardiac Exam: [Normal S1 and S2, no S3 gallop, over 6 systolic murmur thought the precordium Abdomen: [Soft, nontender, no megaly, no rebound, no guarding, normal bowel sounds.] Extremities: [No clubbing, 1+ bipedal edema, no cyanosis.] Neurological Exam: [No focal neurologic deficit.] Alert oriented 3 Psychiatric: Normal mood affect and normal mental status examination. Skin: No rashes - Labs CBC & Chem 7: 03/15/23 09:33 03/15/23 09:33 Labs: Abnormal Lab Results - Last 24 Hours (Table) 03/14/23 03/14/23 03/14/23 Range/Units 08:23 16:00 16:00 RBC 2.58 L (4.30-5.90) m/uL Hgb 7.6 L (13.0-17.5) gm/dL Hct 25.3 L (39.0-53.0) % MCHC 30.1 L (31.0-37.0) g/dL RDW 19.2 H (11.5-15.5) % Lymphocytes # 0.4 L (1.0-4.8) k/uL Chloride (98-107) mmol/L Carbon Dioxide (22-30) mmol/L BUN (9-20) mg/dL Creatinine (0.66-1.25) mg/dL Glucose (74-99) mg/dL POC Glucose (mg/dL) (70-110) mg/dL Iron 38 L (65-175) UG/DL % Saturation 9.67 L (15.00-50.00) Ur Leukocyte Esterase Trace H (Negative) Urine Mucus Rare H (None) /hpf 03/14/23 03/15/23 03/15/23 Range/Units 16:39 05:53 09:33 RBC 2.69 L (4.30-5.90) m/uL Hgb 7.9 L (13.0-17.5) gm/dL Hct 26.7 L (39.0-53.0) % MCHC 29.6 L (31.0-37.0) g/dL RDW 18.7 H (11.5-15.5) % Lymphocytes # 0.5 L (1.0-4.8) k/uL Chloride (98-107) mmol/L Carbon Dioxide (22-30) mmol/L BUN (9-20) mg/dL Creatinine (0.66-1.25) mg/dL Glucose (74-99) mg/dL POC Glucose (mg/dL) 258 H 139 H (70-110) mg/dL Iron (65-175) UG/DL % Saturation (15.00-50.00) Ur Leukocyte Esterase (Negative) Urine Mucus (None) /hpf 03/15/23 03/15/23 Range/Units 09:33 12:08 RBC (4.30-5.90) m/uL Hgb (13.0-17.5) gm/dL Hct (39.0-53.0) % MCHC (31.0-37.0) g/dL RDW (11.5-15.5) % Lymphocytes # (1.0-4.8) k/uL Chloride 97 L (98-107) mmol/L Carbon Dioxide 34 H (22-30) mmol/L BUN 54 H (9-20) mg/dL Creatinine 1.63 H (0.66-1.25) mg/dL Glucose 183 H (74-99) mg/dL POC Glucose (mg/dL) 184 H (70-110) mg/dL Iron (65-175) UG/DL % Saturation (15.00-50.00) Ur Leukocyte Esterase (Negative) Urine Mucus (None) /hpf Assessment and Plan Assessment: Impression: Acute on chronic systolic congestive heart failure with a known ejection fraction 40-45% Acute and chronic hypoxemic respiratory failure secondary to above Chronic obstructive pulmonary disease Hyperlipidemia Chronic kidney disease stage III Diabetes mellitus Paroxysmal atrial fibrillation Coronary artery disease with previous coronary artery bypass grafting, stent placement History of mitral valve repair Hearing disorder Former smoker Hypertension Hyperlipidemia Plan: Continue Bumex Continue strict I's and O's and daily weights Continue bronchodilators/do not and Symbicort Titrate oxygen accordingly Consider discharge planning in the next 24 hours and follow-up on outpatient basis Continue to monitor renal status patient is being followed by nephrology Time with Patient: Less than 30
[2023-03-15 16:36] LABS: % Iron Saturation 8.06 (15.00-50.00); Iron 30 UG/DL (65-175); Total Iron Binding Capacity 372 UG/DL (228-460)
[2023-03-15 16:57] LABS: Glucose,Whole Blood 197 mg/dL (70-110)
--- NOTE | 2023-03-15 17:23 | P.PN ---
Progress Note - Text Progress Note Date: 03/15/23 Chief Complaint: Short of breath edema This is a pleasant 73-year-old patient who follows with Dr. Leal. Extensive medical history including atrial fibrillation, CAD, COPD, diabetes, heart of feeding, hypertension, hyperlipidemia, previous coronary bypass, mitral valve repair, EF 40-45%, Patient now presents with worsening short of breath. For at least 3 weeks. Edema is gone up to the lower abdomen. Scrotum is swollen. Decreased appetite. Nausea. No fever no chills. No chest pain. March 13: Admitted with CHF exacerbation. Remains on IV Lasix drip 10 mg hour. About 2000 mL negative fluid balance. Significant edema. at the bedside. Breathing a bit better. Today patient changed over to Bumex 1 mg every 12 by cardiology. March 14: There is on IV Bumex. 1 mg every 12. Negative fluid balance. Still has significant edema. Upper the thighs. Up in a chair. Oral intake better. March 15: Up in a chair. Remains in negative fluid balance. Bumex 1 mg IV every 12. Edema up to the thighs still present though better than before. Dis cussed with patient and . Active Medications Acetaminophen (Acetaminophen Tab 325 Mg Tab) 650 mg PO Q6HR PRN PRN Reason: Mild Pain or Fever > 100.5 Last Admin: 03/15/23 05:05 Dose: 650 mg Hydrocodone Bitart/Acetaminophen (Hydrocodone/Apap 10-325mg 1 Each Tab) 1 each PO BID PRN PRN Reason: Pain Last Admin: 03/14/23 20:42 Dose: 1 each Albuterol/Ipratropium (Ipratropium-Albuterol 3 Ml Neb) 3 ml INHALATION RT-Q6H PRN PRN Reason: Shortness Of Breath Albuterol/Ipratropium (Ipratropium-Albuterol 3 Ml Neb) 3 ml INHALATION RT-QID ZULMA Last Admin: 03/15/23 16:12 Dose: 3 ml Alprazolam (Alprazolam 0.25 Mg Tab) 0.25 mg PO Q6HR PRN PRN Reason: Anxiety Last Admin: 03/14/23 20:43 Dose: 0.25 mg Aspirin (Aspirin 81 Mg) 81 mg PO DAILY [facility] Last Admin: 03/15/23 09:03 Dose: 81 mg Atorvastatin Calcium (Atorvastatin 80 Mg Tab) 80 mg PO HS [facility] Last Admin: 03/14/23 20:42 Dose: 80 mg Budesonide/Formoterol Fumarate (Symbicort 80-4.5 Mcg Inhaler) 2 puff INHALATION RT-BID [facility] Last Admin: 03/15/23 09:06 Dose: 2 puff Bumetanide (Bumetanide 0.25 Mg/Ml 10 Ml Vial) 1 mg IV Q12HR [facility] Last Admin: 03/15/23 09:03 Dose: 1 mg Calcium Carbonate/Glycine (Calcium Carbonate 500 Mg Chewable) 1,000 mg PO Q4HR PRN PRN Reason: Dyspepsia Cholecalciferol (Cholecalciferol 125 Mcg (5000 Iu) Tablet) 125 mcg PO DAILY [facility] Last Admin: 03/15/23 09:03 Dose: 125 mcg Ferric Sodium Gluconate 125 mg (/ Sodium Chloride) 110 mls @ 100 mls/hr IVPB DAILY [facility] Last Admin: 03/15/23 14:34 Dose: 100 mls/hr Insulin Aspart (Insulin Aspart (Novolog) 100 Unit/Ml Vial) 0 unit SQ ACHS [facility]; Protocol Last Admin: 03/15/23 12:51 Dose: 2 unit Lactulose (Lactulose 20 Gm/30 Ml Cup) 20 gm PO DAILY PRN PRN Reason: Constipation Last Admin: 03/14/23 11:18 Dose: 20 gm Metolazone (Metolazone 2.5 Mg Tab) 2.5 mg PO DAILY [facility] Metoprolol Tartrate (Metoprolol Tartrate 25 Mg Tab) 25 mg PO DAILY [facility] Last Admin: 03/15/23 09:02 Dose: 25 mg Multivitamins (Multivitamins, Thera 1 Each Tab) 1 each PO DAILY [facility] Last Admin: 03/15/23 09:03 Dose: 1 each Multivitamins/Minerals (Vit A,C & N-Rlaioc-Vnmgoyjb 1 Each Tab) 1 each PO BID [facility] Last Admin: 03/15/23 09:03 Dose: 1 each Naloxone HCl (Naloxone 0.4 Mg/Ml 1 Ml Vial) 0.2 mg IV Q2M PRN PRN Reason: Opioid Reversal Ondansetron HCl (Ondansetron 4 Mg/2 Ml Vial) 4 mg IVP Q8HR PRN PRN Reason: Nausea And Vomiting Last Admin: 03/13/23 10:12 Dose: 4 mg Temazepam (Temazepam 15 Mg Cap) 15 mg PO HS PRN PRN Reason: Insomnia Social history: Patient smoked for 55 years, stopped last year. No alcohol. Does use CBD for back pain. Physical examination: VITAL SIGNS: 97.8, 79, 18, 106/58, 97% on 2 L GENERAL: Up in a chair, EYES: Pupils equal. Conjunctiva normal. HEENT: External appearance of nose and ears normal, oral cavity grossly normal. NECK: JVD raised; masses not palpable. HEART: First and second heart sounds are normal; gross edema up to the thighs LUNGS: Respiratory rate increased; decreased breath sounds. ABDOMEN: Soft, distended, abdominal wall edema nontender, liver spleen not palpable, no masses palpable. Edema up to the thighs PSYCH: Alert and oriented x3; mood and affect normal. MUSCULOSKELETAL:No Clubbing/cyanosis;muscles-grossly intact INVESTIGATIONS, reviewed in the clinical context: March 15: White count 9.2 hemoglobin 7.94.3 BUN 54 creatinine 1.63 bicarb 34 March 14: Potassium 3.8 BUN 58 creatinine 1.75 March 13: White count 8.7 hemoglobin 7.7 potassium 3.9 BUN 58 creatinine 1.65 March 12: White count 8.4 hemoglobin 7.7 platelets 206 sodium 137 potassium 4.5 BUN 55 creatinine 1.7 total bilirubin 1.4 AST 188 ALT 103 albumin 3.1 pro BNP 57583 Troponin I 0.034 EKG tracing personally reviewed by me-normal sinus rhythm. Some ST-T wave c hanges. Chest x-ray film personally reviewed by me-cardiomegaly. Pulmonary edema. B12 1113. Folate 27.8 Assessment and plan: -Acute on chronic congestive heart exacerbation. Systolic dysfunction EF known to be 40-45%: Slow to respond Bumex 1 mg IV every 12. Zaroxolyn 2.5 mg a day Add Diamox 250 mg twice a day . Strict I's and O's. Fluid restriction 1500 mL day. Follow labs closely Cardiology following. 2-D echo-pending. -Metabolic alkalosis from diuresis Add Diamox 250 mg twice a day -COPD in a previous smoker DuoNeb 4 times a day. Symbicort 2 puffs twice a day -Hyperlipidemia Lipitor 80 mg daily at bedtime-hold Lipitor for now because of elevated LFTs -CK D STAGE III suspect nephrosclerosis Follow renal function closely -Diabetes mellitus type 2 on oral hypoglycemic Actos 15 mg a day. Follow Accu-Cheks. Victoza -Paroxysmal atrial fibrillation, currently in sinus rhythm -CAD with a prior history of stent, coronary bypass Aspirin. Lipitor -Hard of hearing -Normocytic anemia B12, folate-both normal -Full code Continue IV Bumex 1 mg every 12. Add Diamox Fluid restriction. Follow labs closely. Past Medical History Past Medical History: Atrial Fibrillation, Coronary Artery Disease (CAD), COPD, Diabetes Mellitus, GI Bleed, Hearing Disorder / Deafness, Hyperlipidemia, Hypertension, Myocardial Infarction ([place]), Renal Disease Additional Past Medical History / Comment(s): Previous bypass surgery, previous repair of the mitral valve, comp to get postoperative course requiring dialysis for renal failure and the patient also developed GI bleed requiring blood transfusions recent significant developed a chronic loculated left-sided pleural effusion. Other comorbidities include COPD, chronic systolic heart failure with an ejection fraction 4045%, hypertension, hyperlipidemia, paroxysmal A. fib Last Myocardial Infarction Date:: 11/2021 History of Any Multi-Drug Resistant Organisms: None Reported Past Surgical History: Back Surgery, Heart Catheterization With Stent, Joint Replacement, Orthopedic Surgery Additional Past Surgical History / Comment(s): BILATERAL KNEE REPLACEMENTS, BILATERAL SHOULDER SURGERY, ONE CARDIAC STENT, back surgery X2 (lumbar decompression and fusion), BACK INJECTIONS, COLONOSCOPY, BILATERAL CATARACTS REMOVED WITH LENS IMPLANTS, Cardioversion. ganglion cyst rt wrist removed Past Anesthesia/Blood Transfusion Reactions: No Reported Reaction Additional Past Anesthesia/Blood Transfusion Reaction / Comment(s): no issues with blood transfusions Date of Last Stent Placement:: 2000 Past Psychological History: No Psychological Hx Reported Smoking Status: Former smoker - Past Family History Father Family Medical History: No Reported History Mother Family Medical History: No Reported History
--- NOTE | 2023-03-15 18:04 | P.PN ---
Subjective Progress Note Date: 03/15/23 Progress note: Patient is doing well from cardiac vessel standpoint. He continues to be volume overloaded. He had good urine output with stable kidney function on current diuretic regimen. I would not further diuresis with Zaroxolyn History of present illness: This is a 73-year-old male patient of Dr. Man with past medical history of coronary artery disease status post CABG, valvular heart disease status post mitral valve repair, history of GI bleed, recurrent left-sided pleural effusion with Pleurx catheter being evaluated for removal, hypertension, hyperlipidemia, persistent atrial fibrillation maintained in sinus rhythm not on chronic anticoagulation due to risk of bleeding, chronic systolic heart failure chronic kidney disease requiring dialysis for short period of time, chronic anemia. We have been asked to evaluate the patient for acute exacerbation of CHF. Patient states that he has had ongoing problems with swelling in his legs up to his groin and abdomen and his had a weight gain of 20 pounds over the past 2 weeks. He states his Lasix was doubled to 40 mg twice daily and it was not working. Patient came into [facility] emergency center for evaluation. Patient was diagnosed with heart failure and started on IV Lasix followed by Lasix drip which was discontinued. EKG sinus rhythm Chest x-ray: Cardiomegaly, pulmonary vascular congestion and small bilateral pleural effusions. Correlate for heart failure. Left pleural pigtail catheter in place WBC 8.7, hemoglobin 7.7, platelet count 206. Sodium 137, potassium 3.9, CO2 35, BUN 58 creatinine 1.65. Blood sugar 142. Total bilirubin 1.9, AST 210, ALT 122. Troponin negative 1. ProBNP 24,900 Home cardiac medications: Aspirin 81 mg daily, atorvastatin 80 mg at bedtime, Lasix 40 mg twice daily, metoprolol tartrate 25 mg daily. Echocardiogram 04/2022 revealed EF of 47%, [id number] MR, repaired MV, moderate left ear, AV peak 46 mmHg, AV mean 20 mmHg Physical examination: Gen: This is a 73-year-old male. He sitting on the edge of the bed and appears to be in no acute distress. VS: reviewed blood pressure 104/66, heart rate in the 80s to 90s, pulse ox 90% on room air. HEENT: Head is atraumatic, normocephalic. Pupils equal, round. Sclerae is anicteric. NECK: Supple. No JVD. . LUNGS: Diminished bilaterally, crackles to the bases. Left-sided Pleurx. No intercostal retractions. HEART: Regular rate and rhythm. 2/6 systolic murmur. ABDOMEN: Soft No tenderness. EXTREMITIES: Bilateral lower extremity edema 2+ up into mid abdomen and sacral area. No calf tenderness. NEUROLOGICAL: Patient is awake, alert and oriented x3. Assessment: Acute on chronic systolic heart failure Persistent atrial fibrillation not on anticoagulation due to bleeding Cardiomyopathy COPD Bilateral pleural effusions with left-sided Pleurx Coronary artery disease with previous CABG Valvular heart disease status post mitral valve repair Hypertension Hyperlipidemia Acute kidney injury and chronic kidney disease stage IIIb Chronic anemia Plan: Resume patient's home cardiac medications Continue Bumex 1 mg IV twice daily. Add Zaroxolyn 2.5 mg daily for better diuresis. Monitor I&O, daily weights, electrolytes and renal function Patient would benefit from a right cardiac catheterization will be considered down the road. Further recommendations to follow based upon clinical course Cardiothoracic team on for possible removal of Pleurx catheter Objective - Vital Signs Vital signs: Vital Signs Temp 97.8 F 03/15/23 16:09 Pulse 80 03/15/23 16:19 Resp 18 03/15/23 16:09 BP 106/58 03/15/23 16:09 Pulse Ox 97 03/15/23 16:09 FiO2 Intake & Output 03/14/23 03/15/23 03/15/23 18:59 06:59 18:59 Intake Total 720 740 Output Total 650 1190 800 Balance 70 -1190 -60 Weight 76.2 kg Intake: IV 20 Invasive Line 1 20 Oral 720 720 Output: Gastric Drainage 0 Urine 650 1190 800 Stool 0 Urine/Stool Mix 0 Emesis 0 Oral Regurgitation 0 Other 0 Other: Voiding Method Indwelling Catheter Indwelling Catheter Urinal # Voids 0 # Bowel Movements 0 - Labs CBC & Chem 7: 03/15/23 09:33 03/15/23 09:33 Labs: Abnormal Lab Results - Last 24 Hours (Table) 03/15/23 03/15/23 03/15/23 Range/Units 05:53 09:33 09:33 RBC 2.69 L (4.30-5.90) m/uL Hgb 7.9 L (13.0-17.5) gm/dL Hct 26.7 L (39.0-53.0) % MCHC 29.6 L (31.0-37.0) g/dL RDW 18.7 H (11.5-15.5) % Lymphocytes # 0.5 L (1.0-4.8) k/uL Chloride 97 L (98-107) mmol/L Carbon Dioxide 34 H (22-30) mmol/L BUN 54 H (9-20) mg/dL Creatinine 1.63 H (0.66-1.25) mg/dL Glucose 183 H (74-99) mg/dL POC Glucose (mg/dL) 139 H (70-110) mg/dL Iron 30 L (65-175) UG/DL % Saturation 8.06 L (15.00-50.00) 03/15/23 03/15/23 Range/Units 12:08 16:49 RBC (4.30-5.90) m/uL Hgb (13.0-17.5) gm/dL Hct (39.0-53.0) % MCHC (31.0-37.0) g/dL RDW (11.5-15.5) % Lymphocytes # (1.0-4.8) k/uL Chloride (98-107) mmol/L Carbon Dioxide (22-30) mmol/L BUN (9-20) mg/dL Creatinine (0.66-1.25) mg/dL Glucose (74-99) mg/dL POC Glucose (mg/dL) 184 H 197 H (70-110) mg/dL Iron (65-175) UG/DL % Saturation (15.00-50.00)
[2023-03-15 20:17] LABS: Glucose,Whole Blood 200 mg/dL (70-110)
[2023-03-15] MEDS: acetaZOLAMIDE 250 MG TAB PO SCH (21:37)
[2023-03-15] MEDS: ALPRAZolam 0.25 MG TAB PO PRN (21:37)
[2023-03-15] MEDS: HYDROcodone/APAP 10-325MG 1 EACH TAB PO PRN (22:37)
[2023-03-15] MEDS: ATORVASTATIN 80 MG TAB PO SCH (22:38)
[2023-03-16] MEDS ORDERED: SODIUM CHLORIDE 0.65% NASAL SPRAY 44 ML BTL NASAL PRN (01:00)
[2023-03-16 06:15] LABS: Glucose,Whole Blood 131 mg/dL (70-110)
[2023-03-16] MEDS: INSULIN ASPART (NovoLOG) 100 UNIT/ML VIAL SQ SCH ×4 (06:15→20:44)
[2023-03-16] MEDS: SYMBICORT 80-4.5 MCG INHALER INHALATION SCH ×2 (07:42→18:40)
[2023-03-16] MEDS: IPRATROPIUM-ALBUTEROL 3 ML NEB INHALATION SCH ×4 (07:42→18:40)
[2023-03-16 08:24] LABS: African American GFR (CKD) 46 (>60 ml/min/1.73 sqM); Anion Gap 5 mmol/L; Blood Urea Nitrogen 42 mg/dL (9-20); Calcium 8.7 mg/dL (8.4-10.2); Carbon Dioxide 36 mmol/L (22-30); Chloride 96 mmol/L (98-107); Glucose 102 mg/dL (74-99); Non-African American GFR(CKD) 40 (>60 ml/min/1.73 sqM); Potassium 3.6 mmol/L (3.5-5.1); Sodium 137 mmol/L (137-145)
[2023-03-16] MEDS: METOPROLOL TARTRATE 25 MG TAB PO SCH (09:20)
[2023-03-16] MEDS: metOLazone 2.5 MG TAB PO SCH (09:20)
[2023-03-16] MEDS: acetaZOLAMIDE 250 MG TAB PO SCH ×2 (09:20→21:19)
[2023-03-16] MEDS: BUMETANIDE 0.25 MG/ML 10 ML VIAL IV SCH ×2 (09:20→21:18)
[2023-03-16] MEDS: ASPIRIN 81 MG PO SCH (09:20)
[2023-03-16] MEDS: CHOLECALCIFEROL 125 MCG (5000 IU) TABLET PO SCH (09:20)
[2023-03-16] MEDS: SODIUM FERRIC GLUCONAT-SUCROSE 125 MG in SODIUM CHLORIDE 0.9% 100 ML IVPB SCH (09:20)
[2023-03-16] MEDS: MULTIVITAMINS, THERA 1 EACH TAB PO SCH (09:20)
[2023-03-16] MEDS: VIT A,C & E-LUTEIN-MINERALS 1 EACH TAB PO SCH ×2 (09:21→21:18)
--- NOTE | 2023-03-16 09:47 | P.PN ---
Subjective Patient is seen for follow-up for acute kidney injury mostly cardiorenal. Admitted with shortness of breath and increased lower extremity swelling. Currently maintained on IV Bumex 1 mg every 12 hours. Overall patient states he is feeling better. Weight is down quite a bit. 24 hour balance shows -1.6 L. Serum creatinine down to 1.6 mg/dL. Mooney catheter discontinued yesterday. Awaiting post void bladder scan. Objective - Vital Signs Vital signs: Vital Signs Temp 98.2 F 03/15/23 20:33 Pulse 80 03/16/23 07:55 Resp 16 03/16/23 04:00 BP 89/54 03/16/23 04:00 Pulse Ox 93 L 03/16/23 07:44 FiO2 Intake & Output 03/15/23 03/16/23 03/16/23 18:59 06:59 18:59 Intake Total 740 250 600 Output Total 800 1850 300 Balance -60 -1600 300 Weight 76.1 kg Intake: IV 20 10 Invasive Line 1 20 10 Oral 720 240 600 Output: Urine 800 1850 300 Other: Voiding Method Urinal Urinal # Voids 2 - Exam Patient is awake, comfortable, no acute distress Examination of the heart S1 and S2 Examination of the lungs bilateral breath sounds are heard, basal crackles are heard Abdomen is soft nontender Examination lower extremity shows edema 2+ bilaterally THROUGH [employer]ER exam grossly intact - Labs CBC & Chem 7: 03/15/23 09:33 03/16/23 07:26 Labs: Abnormal Lab Results - Last 24 Hours (Table) 03/15/23 03/15/23 03/15/23 Range/Units 09:33 09:33 12:08 RBC 2.69 L (4.30-5.90) m/uL Hgb 7.9 L (13.0-17.5) gm/dL Hct 26.7 L (39.0-53.0) % MCHC 29.6 L (31.0-37.0) g/dL RDW 18.7 H (11.5-15.5) % Lymphocytes # 0.5 L (1.0-4.8) k/uL Chloride 97 L (98-107) mmol/L Carbon Dioxide 34 H (22-30) mmol/L BUN 54 H (9-20) mg/dL Creatinine 1.63 H (0.66-1.25) mg/dL Glucose 183 H (74-99) mg/dL POC Glucose (mg/dL) 184 H (70-110) mg/dL Iron 30 L (65-175) UG/DL % Saturation 8.06 L (15.00-50.00) 03/15/23 03/15/23 03/16/23 Range/Units 16:49 20:16 06:13 RBC (4.30-5.90) m/uL Hgb (13.0-17.5) gm/dL Hct (39.0-53.0) % MCHC (31.0-37.0) g/dL RDW (11.5-15.5) % Lymphocytes # (1.0-4.8) k/uL Chloride (98-107) mmol/L Carbon Dioxide (22-30) mmol/L BUN (9-20) mg/dL Creatinine (0.66-1.25) mg/dL Glucose (74-99) mg/dL POC Glucose (mg/dL) 197 H 200 H 131 H (70-110) mg/dL Iron (65-175) UG/DL % Saturation (15.00-50.00) 03/16/23 Range/Units 07:26 RBC (4.30-5.90) m/uL Hgb (13.0-17.5) gm/dL Hct (39.0-53.0) % MCHC (31.0-37.0) g/dL RDW (11.5-15.5) % Lymphocytes # (1.0-4.8) k/uL Chloride 96 L (98-107) mmol/L Carbon Dioxide 36 H (22-30) mmol/L BUN 42 H (9-20) mg/dL Creatinine 1.67 H (0.66-1.25) mg/dL Glucose 102 H (74-99) mg/dL POC Glucose (mg/dL) (70-110) mg/dL Iron (65-175) UG/DL % Saturation (15.00-50.00) Assessment and Plan Assessment: 1. JENIFFER, cardiorenal, nonoliguric, currently being diuresed. UA is benign. Ultrasound is unremarkable. Renal function has improved. 2. 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 Previous U/A in 2021 shows no proteinuria. 3. volume overload 4. Anemia with no active bleeding. Rule out GI bleed 5. Cardiomyopathy with EF of 40-45% 6. Paroxysmal A. fib Plan: continue with IV Bumex IV iron Check post void bladder scan to rule out urine retention.
[2023-03-16 11:58] LABS: Glucose,Whole Blood 158 mg/dL (70-110)
--- NOTE | 2023-03-16 14:09 | P.PN ---
Subjective Progress Note Date: 03/16/23 Principal diagnosis: Acute on chronic systolic congestive heart failure and acute on chronic hypoxic respiratory failure This is a very pleasant 73-year-old male patient well known to our practice. He has a history of chronic obstructive pulmonary disease coronary artery disease with previous coronary artery bypass grafting, mitral valve repair, atrial fibrillation, diabetes mellitus, hearing disorder, hyperlipidemia, hypertension, congestive heart failure, chronic loculated left-sided pleural effusion status post Pleurx catheter placement. He presented here to the emergency room yesterday with complaints of increasing shortness of breath and lower extremity and scrotal edema. White count 8.7. Hemoglobin 7.7. Platelets 26. Sodium 137. Potassium 3.9. Bicarb 35. BUN 58. Creatinine 1.65. Close 142. AST 210. ALT 122. ProBNP 24,900. Troponin negative 1. Chest x-ray shows mild congestive heart failure pulmonary vascular congestion and small pleural effu sions. Pleurx catheter in place with minimal drainage the last several days plan is to have it removed per CT services. He is seen today in consultation on the selective care unit. He is currently resting comfortably in bed. Awake and alert in no acute distress. He is maintaining good O2 saturations in the mid 90s on 2 L/m per nasal cannula. He is afebrile. Hemodynamically stable. Reevaluated today on 03/14/2023, patient responded well to diuresis/Lasix drip upper admission, and now he remains on diuretics, doing much better feeling great, significant amount of diuresis over the last 24 hours been noted. Patient is on 2 L nasal cannula with O2 sats of 99%, labs are noted BUN is 58 c reatinine 1.75 which is not far off from his baseline. Chest x-ray shows chronic right basilar pleural effusions, and his Pleurx catheter has been removed Patient was reevaluated today on 03/15/2023, patient is now on IV Bumex 1 mg IV push every 12 hours patient continues to diurese nicely he is actually negative balance 1.1 in the last 24 hours. Creatinine is holding it is down to 1.6. Overall the patient is dramatically improving with diuretics. Not to mention the patient is feeling much better and breathing a lot easier and WBC count is 9.2 hemoglobin 7.9 electrolytes are normal Reevaluated today on 03/16/2023, patient continues to do well, continues to have negative fluid balance 1.6 L in the last 24 hours. Remains on Bumex at 1 mg IV push twice a day creatinine is 1.67. Weekly the patient is feeling good, hardly any shortness of breath, he is on room air, no cough no wheezing no chest pain no fever no chills. Basic metabolic profile is normal bicarb is 36 Objective - Vital Signs Vital signs: Vital Signs Temp 97.6 F 03/16/23 09:20 Pulse 76 03/16/23 11:49 Resp 18 03/16/23 11:00 BP 104/57 03/16/23 11:00 Pulse Ox 94 L 03/16/23 11:00 FiO2 Intake & Output 03/15/23 03/16/23 03/16/23 18:59 06:59 18:59 Intake Total 740 250 600 Output Total 800 1850 1175 Balance -60 -1600 -575 Weight 76.1 kg Intake: IV 20 10 Invasive Line 1 20 10 Oral 720 240 600 Output: Urine 800 1850 1175 Other: Voiding Method Urinal Urinal Urinal # Voids 2 - Exam Physical Exam: Revealed a 73-year-old white male in no distress, on 2 L nasal cannula HEENT:[Neck is supple.] [No neck masses.] [No thyromegaly.] [No JVD.] Chest: [Diminished breath sounds and crackles at the bases no wheezing Cardiac Exam: [Normal S1 and S2, no S3 gallop, over 6 systolic murmur thought the precordium Abdomen: [Soft, nontender, no megaly, no rebound, no guarding, normal bowel sounds.] Extremities: [No clubbing, 1+ bipedal edema, no cyanosis.] Neurological Exam: [No focal neurologic deficit.] Alert oriented 3 Psychiatric: Normal mood affect and normal mental status examination. Skin: No rashes - Labs CBC & Chem 7: 03/15/23 09:33 03/16/23 07:26 Labs: Abnormal Lab Results - Last 24 Hours (Table) 03/15/23 03/15/23 03/15/23 Range/Units 09:33 16:49 20:16 Chloride (98-107) mmol/L Carbon Dioxide (22-30) mmol/L BUN (9-20) mg/dL Creatinine (0.66-1.25) mg/dL Glucose (74-99) mg/dL POC Glucose (mg/dL) 197 H 200 H (70-110) mg/dL Iron 30 L (65-175) UG/DL % Saturation 8.06 L (15.00-50.00) 03/16/23 03/16/23 03/16/23 Range/Units 06:13 07:26 11:36 Chloride 96 L (98-107) mmol/L Carbon Dioxide 36 H (22-30) mmol/L BUN 42 H (9-20) mg/dL Creatinine 1.67 H (0.66-1.25) mg/dL Glucose 102 H (74-99) mg/dL POC Glucose (mg/dL) 131 H 158 H (70-110) mg/dL Iron (65-175) UG/DL % Saturation (15.00-50.00) Assessment and Plan Assessment: Impression: Acute on chronic systolic congestive heart failure with a known ejection fraction 40-45% Acute and chronic hypoxemic respiratory failure secondary to above Chronic obstructive pulmonary disease Hyperlipidemia Chronic kidney disease stage III Diabetes mellitus Paroxysmal atrial fibrillation Coronary artery disease with previous coronary artery bypass grafting, stent placement History of mitral valve repair Hearing disorder Former smoker Hypertension Hyperlipidemia Plan: Continue Bumex Continue strict I's and O's and daily weights Continue bronchodilators/Symbicort and DuoNeb Titrate oxygen accordingly Consider discharge planning once cleared by all consultants on the case. Time with Patient: Less than 30
[2023-03-16 16:40] LABS: Glucose,Whole Blood 155 mg/dL (70-110)
--- NOTE | 2023-03-16 19:29 | P.PN ---
Progress Note - Text Progress Note Date: 03/16/23 Chief Complaint: Short of breath edema This is a pleasant 73-year-old patient who follows with Dr. Leal. Extensive medical history including atrial fibrillation, CAD, COPD, diabetes, heart of feeding, hypertension, hyperlipidemia, previous coronary bypass, mitral valve repair, EF 40-45%, Patient now presents with worsening short of breath. For at least 3 weeks. Edema is gone up to the lower abdomen. Scrotum is swollen. Decreased appetite. Nausea. No fever no chills. No chest pain. March 13: Admitted with CHF exacerbation. Remains on IV Lasix drip 10 mg hour. About 2000 mL negative fluid balance. Significant edema. at the bedside. Breathing a bit better. Today patient changed over to Bumex 1 mg every 12 by cardiology. March 14: There is on IV Bumex. 1 mg every 12. Negative fluid balance. Still has significant edema. Upper the thighs. Up in a chair. Oral intake better. March 15: Up in a chair. Remains in negative fluid balance. Bumex 1 mg IV every 12. Edema up to the thighs still present though better than before. Dis cussed with patient and . March 16: Remains on IV Bumex. Over 6 L in negative fluid balance since admission. Edema still present. Breathing better. Tolerating diet. Active Medications Acetaminophen (Acetaminophen Tab 325 Mg Tab) 650 mg PO Q6HR PRN PRN Reason: Mild Pain or Fever > 100.5 Last Admin: 03/15/23 21:56 Dose: 650 mg Hydrocodone Bitart/Acetaminophen (Hydrocodone/Apap 10-325mg 1 Each Tab) 1 each PO BID PRN PRN Reason: Pain Last Admin: 03/15/23 22:37 Dose: 1 each Acetazolamide (Acetazolamide 250 Mg Tab) 250 mg PO BID ZULMA Last Admin: 03/16/23 09:20 Dose: 250 mg Albuterol/Ipratropium (Ipratropium-Albuterol 3 Ml Neb) 3 ml INHALATION RT-Q6H PRN PRN Reason: Shortness Of Breath Albuterol/Ipratropium (Ipratropium-Albuterol 3 Ml Neb) 3 ml INHALATION RT-QID [facility] Last Admin: 03/16/23 18:40 Dose: 3 ml Alprazolam (Alprazolam 0.25 Mg Tab) 0.25 mg PO Q6HR PRN PRN Reason: Anxiety Last Admin: 03/15/23 21:37 Dose: 0.25 mg Aspirin (Aspirin 81 Mg) 81 mg PO DAILY [facility] Last Admin: 03/16/23 09:20 Dose: 81 mg Atorvastatin Calcium (Atorvastatin 80 Mg Tab) 80 mg PO HS [facility] Last Admin: 03/15/23 22:38 Dose: 80 mg Budesonide/Formoterol Fumarate (Symbicort 80-4.5 Mcg Inhaler) 2 puff INHALATION RT-BID [facility] Last Admin: 03/16/23 18:40 Dose: 2 puff Bumetanide (Bumetanide 0.25 Mg/Ml 10 Ml Vial) 1 mg IV Q12HR [facility] Last Admin: 03/16/23 09:20 Dose: 1 mg Calcium Carbonate/Glycine (Calcium Carbonate 500 Mg Chewable) 1,000 mg PO Q4HR PRN PRN Reason: Dyspepsia Cholecalciferol (Cholecalciferol 125 Mcg (5000 Iu) Tablet) 125 mcg PO DAILY [facility] Last Admin: 03/16/23 09:20 Dose: 125 mcg Ferric Sodium Gluconate 125 mg (/ Sodium Chloride) 110 mls @ 100 mls/hr IVPB DAILY [facility] Stop: 03/17/23 23:59 Last Admin: 03/16/23 09:20 Dose: 100 mls/hr Insulin Aspart (Insulin Aspart (Novolog) 100 Unit/Ml Vial) 0 unit SQ ACHS [facility]; Protocol Last Admin: 03/16/23 16:51 Dose: 2 unit Lactulose (Lactulose 20 Gm/30 Ml Cup) 20 gm PO DAILY PRN PRN Reason: Constipation Last Admin: 03/14/23 11:18 Dose: 20 gm Metolazone (Metolazone 2.5 Mg Tab) 2.5 mg PO DAILY [facility] Last Admin: 03/16/23 09:20 Dose: 2.5 mg Metoprolol Tartrate (Metoprolol Tartrate 25 Mg Tab) 25 mg PO DAILY [facility] Last Admin: 03/16/23 09:20 Dose: 25 mg Multivitamins (Multivitamins, Thera 1 Each Tab) 1 each PO DAILY [facility] Last Admin: 03/16/23 09:20 Dose: 1 each Multivitamins/Minerals (Vit A,C & P-Qxdqjd-Xoabibrv 1 Each Tab) 1 each PO BID [facility] Last Admin: 03/16/23 09:21 Dose: 1 each Naloxone HCl (Naloxone 0.4 Mg/Ml 1 Ml Vial) 0.2 mg IV Q2M PRN PRN Reason: Opioid Reversal Ondansetron HCl (Ondansetron 4 Mg/2 Ml Vial) 4 mg IVP Q8HR PRN PRN Reason: Nausea And Vomiting Last Admin: 03/13/23 10:12 Dose: 4 mg Sodium Chloride (Sodium Chloride 0.65% Nasal [place] 44 Ml Btl) 2 spray NASAL QID PRN PRN Reason: Dry Nasal Passages Temazepam (Temazepam 15 Mg Cap) 15 mg PO HS PRN PRN Reason: Insomnia Social history: Patient smoked for 55 years, stopped last year. No alcohol. Does use CBD for back pain. Physical examination: VITAL SIGNS: 97.6, 75, 18, 104/57, 94% on 2 L GENERAL: Up in a chair, EYES: Pupils equal. Conjunctiva normal. HEENT: External appearance of nose and ears normal, oral cavity grossly normal. NECK: JVD raised; masses not palpable. HEART: First and second heart sounds are normal; gross edema up to the thighs LUNGS: Respiratory rate increased; decreased breath sounds. ABDOMEN: Soft, distended, abdominal wall edema nontender, liver spleen not palpable, no masses palpable. Edema up to the thighs PSYCH: Alert and oriented x3; mood and affect normal. MUSCULOSKELETAL:No Clubbing/cyanosis;muscles-grossly intact INVESTIGATIONS, reviewed in the clinical context: March 16: Potassium 3.6 BUN 42 creatinine 1.67 March 15: White count 9.2 hemoglobin 7.94.3 BUN 54 creatinine 1.63 bicarb 34 March 14: Potassium 3.8 BUN 58 creatinine 1.75 March 13: White count 8.7 hemoglobin 7.7 potassium 3.9 BUN 58 creatinine 1.65 March 12: White count 8.4 hemoglobin 7.7 platelets 206 sodium 137 potassium 4.5 BUN 55 creatinine 1.7 total bilirubin 1.4 AST 188 ALT 103 albumin 3.1 pro BNP 23965 Troponin I 0.034 EKG tracing personally reviewed by me-normal sinus rhythm. Some ST-T wave changes. Chest x-ray film personally reviewed by me-cardiomegaly. Pulmonary edema. B12 1113. Folate 27.8 Assessment and plan: -Acute on chronic congestive heart exacerbation. Systolic dysfunction EF known to be 40-45%: Slow to respond Bumex 1 mg IV every 12. Zaroxolyn 2.5 mg a day Add Diamox 250 mg twice a day . Strict I's and O's. Fluid restriction 1500 mL day. Follow labs closely Cardiology following. 2-D echo-pending. -Metabolic alkalosis from diuresis Add Diamox 250 mg twice a day -COPD in a previous smoker DuoNeb 4 times a day. Symbicort 2 puffs twice a day -Hyperlipidemia Lipitor 80 mg daily at bedtime-hold Lipitor for now because of elevated LFTs -CK D STAGE III suspect nephrosclerosis Follow renal function closely -Diabetes mellitus type 2 on oral hypoglycemic Actos 15 mg a day. Follow Accu-Cheks. Victoza -Paroxysmal atrial fibrillation, currently in sinus rhythm -CAD with a prior history of stent, coronary bypass Aspirin. Lipitor -Hard of hearing -Normocytic anemia B12, folate-both normal -Full code IV Bumex 1 mg every 12. Diamox Fluid restriction. Discussed with patient and . Past Medical History Past Medical History: Atrial Fibrillation, Coronary Artery Disease (CAD), COPD, Diabetes Mellitus, GI Bleed, Hearing Disorder / Deafness, Hyperlipidemia, Hypertension, Myocardial Infarction ([place]), Renal Disease Additional Past Medical History / Comment(s): Previous bypass surgery, previous repair of the mitral valve, comp to get postoperative course requiring dialysis for renal failure and the patient also developed GI bleed requiring blood transfusions recent significant developed a chronic loculated left-sided pleural effusion. Other comorbidities include COPD, chronic systolic heart failure with an ejection fraction 4045%, hypertension, hyperlipidemia, paroxysmal A. fib Last Myocardial Infarction Date:: 11/2021 History of Any Multi-Drug Resistant Organisms: None Reported Past Surgical History: Back Surgery, Heart Catheterization With Stent, Joint Replacement, Orthopedic Surgery Additional Past Surgical History / Comment(s): BILATERAL KNEE REPLACEMENTS, BILATERAL SHOULDER SURGERY, ONE CARDIAC STENT, back surgery X2 (lumbar decompression and fusion), BACK INJECTIONS, COLONOSCOPY, BILATERAL CATARACTS REMOVED WITH LENS IMPLANTS, Cardioversion. ganglion cyst rt wrist removed Past Anesthesia/Blood Transfusion Reactions: No Reported Reaction Additional Past Anesthesia/Blood Transfusion Reaction / Comment(s): no issues with blood transfusions Date of Last Stent Placement:: 2000 Past Psychological History: No Psychological Hx Reported Smoking Status: Former smoker - Past Family History Father Family Medical History: No Reported History Mother Family Medical History: No Reported History
[2023-03-16 20:28] LABS: Glucose,Whole Blood 136 mg/dL (70-110)
[2023-03-16] MEDS: ALPRAZolam 0.25 MG TAB PO PRN (21:17)
[2023-03-16] MEDS: ATORVASTATIN 80 MG TAB PO SCH (21:18)
[2023-03-16] MEDS: HYDROcodone/APAP 10-325MG 1 EACH TAB PO PRN (21:18)
[2023-03-17 06:20] LABS: Glucose,Whole Blood 116 mg/dL (70-110)
[2023-03-17] MEDS: INSULIN ASPART (NovoLOG) 100 UNIT/ML VIAL SQ SCH ×4 (06:26→21:42)
[2023-03-17] MEDS: SYMBICORT 80-4.5 MCG INHALER INHALATION SCH ×2 (08:33→22:03)
[2023-03-17] MEDS: acetaZOLAMIDE 250 MG TAB PO SCH ×2 (08:33→21:41)
[2023-03-17] MEDS: IPRATROPIUM-ALBUTEROL 3 ML NEB INHALATION SCH ×4 (08:33→22:03)
[2023-03-17] MEDS: BUMETANIDE 0.25 MG/ML 10 ML VIAL IV SCH ×2 (08:33→21:53)
[2023-03-17] MEDS: SODIUM FERRIC GLUCONAT-SUCROSE 125 MG in SODIUM CHLORIDE 0.9% 100 ML IVPB SCH (08:33)
[2023-03-17] MEDS: MULTIVITAMINS, THERA 1 EACH TAB PO SCH (08:33)
[2023-03-17] MEDS: METOPROLOL TARTRATE 25 MG TAB PO SCH (08:33)
[2023-03-17] MEDS: VIT A,C & E-LUTEIN-MINERALS 1 EACH TAB PO SCH ×2 (08:33→21:53)
[2023-03-17] MEDS: metOLazone 2.5 MG TAB PO SCH (08:33)
[2023-03-17] MEDS: ASPIRIN 81 MG PO SCH (08:33)
[2023-03-17] MEDS: CHOLECALCIFEROL 125 MCG (5000 IU) TABLET PO SCH (08:33)
--- NOTE | 2023-03-17 10:44 | P.PN ---
Subjective Patient is seen for follow-up for acute kidney injury mostly cardiorenal. Admitted with shortness of breath and increased lower extremity swelling. Currently maintained on IV Bumex 1 mg every 12 hours. Overall patient states he is feeling better. Weight is down quite a bit. 24 hour balance shows -3.0 L. 24 hour urine output at 4.0 L Serum creatinine down to 1.6 mg/dL. no urine retention. Objective - Vital Signs Vital signs: Vital Signs Temp 97.9 F 03/17/23 08:30 Pulse 75 03/17/23 08:43 Resp 19 03/17/23 08:30 BP 99/57 03/17/23 08:30 Pulse Ox 100 03/17/23 08:34 FiO2 Intake & Output 03/16/23 03/17/23 03/17/23 18:59 06:59 18:59 Intake Total 958 240 Output Total 1925 2140 575 Balance -967 -2140 -335 Weight 72.1 kg Intake: Oral 958 240 Output: Urine 1925 2140 575 Other: Voiding Method Urinal Urinal Urinal - Exam Patient is awake, comfortable, no acute distress Examination of the heart S1 and S2 Examination of the lungs bilateral breath sounds are heard, basal crackles are heard Abdomen is soft nontender Examination lower extremity shows edema 2+ bilaterally. Legs are wrapped [employer] exam grossly intact - Labs CBC & Chem 7: 03/15/23 09:33 03/16/23 07:26 Labs: Abnormal Lab Results - Last 24 Hours (Table) 03/16/23 03/16/23 03/16/23 Range/Units 11:36 16:36 20:27 POC Glucose (mg/dL) 158 H 155 H 136 H (70-110) mg/dL 03/17/23 Range/Units 06:18 POC Glucose (mg/dL) 116 H (70-110) mg/dL Assessment and Plan Assessment: 1. JENIFFER, cardiorenal, nonoliguric, currently being diuresed. UA is benign. Ultrasound is unremarkable. Renal function has improved. 2. 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 Previous U/A in 2021 shows no proteinuria. 3. volume overload 4. Anemia with no active bleeding. Rule out GI bleed 5. Cardiomyopathy with EF of 40-45% 6. Paroxysmal A. fib Plan: continue with IV Bumex Continue with Diamox IV iron
[2023-03-17 12:11] LABS: Glucose,Whole Blood 155 mg/dL (70-110)
--- NOTE | 2023-03-17 13:33 | P.PN ---
Subjective Progress Note Date: 03/17/23 Progress note: Patient reports feeling better on current diuretic regimen. He has had good urine output. 4 liters of urine in last 24 hours with holding up kidney function and blood pressure History of present illness: This is a 73-year-old male patient of Dr. Man with past medical history of coronary artery disease status post CABG, valvular heart disease status post mitral valve repair, history of GI bleed, recurrent left-sided pleural effusion with Pleurx catheter being evaluated for removal, hypertension, hyperlipidemia, persistent atrial fibrillation maintained in sinus rhythm not on chronic anticoagulation due to risk of bleeding, chronic systolic heart failure chronic kidney disease requiring dialysis for short period of time, chronic anemia. We have been asked to evaluate the patient for acute exacerbation of CHF. Patient states that he has had ongoing problems with swelling in his legs up to his groin and abdomen and his had a weight gain of 20 pounds over the past 2 weeks. He states his Lasix was doubled to 40 mg twice daily and it was not working. Patient came into [facility] emergency center for evaluation. Patient was diagnosed with heart failure and started on IV Lasix followed by Lasix drip which was discontinued. EKG sinus rhythm Chest x-ray: Cardiomegaly, pulmonary vascular congestion and small bilateral pleural effusions. Correlate for heart failure. Left pleural pigtail catheter in place WBC 8.7, hemoglobin 7.7, platelet count 206. Sodium 137, potassium 3.9, CO2 35, BUN 58 creatinine 1.65. Blood sugar 142. Total bilirubin 1.9, AST 210, ALT 122. Troponin negative 1. ProBNP 24,900 Home cardiac medications: Aspirin 81 mg daily, atorvastatin 80 mg at bedtime, Lasix 40 mg twice daily, metoprolol tartrate 25 mg daily. Echocardiogram 04/2022 revealed EF of 47%, [id number] MR, repaired MV, moderate left ear, AV peak 46 mmHg, AV mean 20 mmHg Physical examination: Gen: This is a 73-year-old male. He sitting on the edge of the bed and appears to be in no acute distress. VS: reviewed blood pressure 104/66, heart rate in the 80s to 90s, pulse ox 90% on room air. HEENT: Head is atraumatic, normocephalic. Pupils equal, round. Sclerae is anicteric. NECK: Supple. No JVD. . LUNGS: Diminished bilaterally, crackles to the bases. Left-sided Pleurx. No intercostal retractions. HEART: Regular rate and rhythm. 2/6 systolic murmur. ABDOMEN: Soft No tenderness. EXTREMITIES: Bilateral lower extremity edema 2+ up into mid abdomen and sacral area. No calf tenderness. NEUROLOGICAL: Patient is awake, alert and oriented x3. Echocardiogram showed an EF of 30-35%, moderate aortic stenosis, severe TR, pulmonary hypertension Assessment: Acute on chronic systolic heart failure Persistent atrial fibrillation not on anticoagulation due to bleeding Cardiomyopathy COPD Bilateral pleural effusions with left-sided Pleurx Coronary artery disease with previous CABG Valvular heart disease status post mitral valve repair Hypertension Hyperlipidemia Acute kidney injury and chronic kidney disease stage IIIb Chronic anemia Plan: Resume patient's home cardiac medications Continue Bumex 1 mg IV twice daily. Add Zaroxolyn 2.5 mg daily for better diuresis. Monitor I&O, daily weights, electrolytes and renal function Patient would benefit from a right cardiac catheterization will be considered down the road. Patient has shown significant improvement with improvement in his kidney function and reduction in his overall weight with good urine output on current diuretic regimen. I feel it should be appropriate to transition him to by mouth tomorrow and possible discharge after tomorrow Objective - Vital Signs Vital signs: Vital Signs Temp 97.9 F 03/17/23 08:30 Pulse 75 03/17/23 08:43 Resp 19 03/17/23 08:30 BP 99/57 03/17/23 08:30 Pulse Ox 100 03/17/23 08:34 FiO2 Intake & Output 03/16/23 03/17/23 03/17/23 18:59 06:59 18:59 Intake Total 958 240 Output Total 1925 2140 575 Balance -967 -2140 -260 Weight 72.1 kg Intake: Oral 958 240 Output: Urine 1925 2140 575 Other: Voiding Method Urinal Urinal Urinal - Labs CBC & Chem 7: 03/15/23 09:33 03/16/23 07:26 Labs: Abnormal Lab Results - Last 24 Hours (Table) 03/16/23 03/16/23 03/17/23 Range/Units 16:36 20:27 06:18 POC Glucose (mg/dL) 155 H 136 H 116 H (70-110) mg/dL 03/17/23 Range/Units 12:10 POC Glucose (mg/dL) 155 H (70-110) mg/dL
--- NOTE | 2023-03-17 14:44 | P.PN ---
Subjective Progress Note Date: 03/17/23 Principal diagnosis: Acute on chronic systolic congestive heart failure and acute on chronic hypoxic respiratory failure This is a very pleasant 73-year-old male patient well known to our practice. He has a history of chronic obstructive pulmonary disease coronary artery disease with previous coronary artery bypass grafting, mitral valve repair, atrial fibrillation, diabetes mellitus, hearing disorder, hyperlipidemia, hypertension, congestive heart failure, chronic loculated left-sided pleural effusion status post Pleurx catheter placement. He presented here to the emergency room yesterday with complaints of increasing shortness of breath and lower extremity and scrotal edema. White count 8.7. Hemoglobin 7.7. Platelets 26. Sodium 137. Potassium 3.9. Bicarb 35. BUN 58. Creatinine 1.65. Close 142. AST 210. ALT 122. ProBNP 24,900. Troponin negative 1. Chest x-ray shows mild congestive heart failure pulmonary vascular congestion and small pleural effu sions. Pleurx catheter in place with minimal drainage the last several days plan is to have it removed per CT services. He is seen today in consultation on the selective care unit. He is currently resting comfortably in bed. Awake and alert in no acute distress. He is maintaining good O2 saturations in the mid 90s on 2 L/m per nasal cannula. He is afebrile. Hemodynamically stable. Reevaluated today on 03/14/2023, patient responded well to diuresis/Lasix drip upper admission, and now he remains on diuretics, doing much better feeling great, significant amount of diuresis over the last 24 hours been noted. Patient is on 2 L nasal cannula with O2 sats of 99%, labs are noted BUN is 58 c reatinine 1.75 which is not far off from his baseline. Chest x-ray shows chronic right basilar pleural effusions, and his Pleurx catheter has been removed Patient was reevaluated today on 03/15/2023, patient is now on IV Bumex 1 mg IV push every 12 hours patient continues to diurese nicely he is actually negative balance 1.1 in the last 24 hours. Creatinine is holding it is down to 1.6. Overall the patient is dramatically improving with diuretics. Not to mention the patient is feeling much better and breathing a lot easier and WBC count is 9.2 hemoglobin 7.9 electrolytes are normal Reevaluated today on 03/16/2023, patient continues to do well, continues to have negative fluid balance 1.6 L in the last 24 hours. Remains on Bumex at 1 mg IV push twice a day creatinine is 1.67. Weekly the patient is feeling good, hardly any shortness of breath, he is on room air, no cough no wheezing no chest pain no fever no chills. Basic metabolic profile is normal bicarb is 36 Reevaluated today on 03/17/23 patient is doing great, steadily improving and he continues to improve with diuretics, on 2 L nasal cannula with O2 sat showed 100% he may not actually need oxygen anymore. Remains in negative fluid balance, creatinine maintaining in the usual range of 1.6. At this point I believe the patient should be considered for discharge planning and follow-up on outpatient basis Objective - Vital Signs Vital signs: Vital Signs Temp 97.9 F 03/17/23 08:30 Pulse 85 03/17/23 12:15 Resp 18 03/17/23 12:15 BP 122/57 03/17/23 12:15 Pulse Ox 98 03/17/23 12:15 FiO2 Intake & Output 03/16/23 03/17/23 03/17/23 18:59 06:59 18:59 Intake Total 958 480 Output Total 1925 2140 575 Balance -967 -0 -95 Weight 72.1 kg Intake: Oral 958 480 Output: Urine 192 2140 575 Other: Voiding Method Urinal Urinal Urinal - Exam Physical Exam: Revealed a 73-year-old white male in no distress, on 2 L nasal cannula O2 saturation is 100% HEENT:[Neck is supple.] [No neck masses.] [No thyromegaly.] [No JVD.] Chest: [Clear throughout no crackles or rhonchi or wheezes Cardiac Exam: [Normal S1 and S2, no S3 gallop, over 6 systolic murmur thought the precordium Abdomen: [Soft, nontender, no megaly, no rebound, no guarding, normal bowel sounds.] Extremities: [No clubbing, trace of bipedal edema, no cyanosis.] Neurological Exam: [No focal neurologic deficit.] Alert oriented 3 Psychiatric: Normal mood affect and normal mental status examination. Skin: No rashes - Labs CBC & Chem 7: 03/15/23 09:33 03/16/23 07:26 Labs: Abnormal Lab Results - Last 24 Hours (Table) 03/16/23 03/16/23 03/17/23 Range/Units 16:36 20:27 06:18 POC Glucose (mg/dL) 155 H 136 H 116 H (70-110) mg/dL 03/17/23 Range/Units 12:10 POC Glucose (mg/dL) 155 H (70-110) mg/dL Assessment and Plan Assessment: Impression: Acute on chronic systolic congestive heart failure with a known ejection fraction 40-45% Acute and chronic hypoxemic respiratory failure secondary to above Chronic obstructive pulmonary disease Hyperlipidemia Chronic kidney disease stage III Diabetes mellitus Paroxysmal atrial fibrillation Coronary artery disease with previous coronary artery bypass grafting, stent placement History of mitral valve repair Hearing disorder Former smoker Hypertension Hyperlipidemia Plan: Continue Bumex, 1 mg IV push every 12 hours Continue strict I's and O's and daily weights Continue bronchodilators/Symbicort and DuoNeb Titrate oxygen accordingly, patient may not even need home oxygen Consider discharge planning in the next 24 Time with Patient: Less than 30
[2023-03-17] MEDS: ACETAMINOPHEN TAB 325 MG TAB PO PRN (15:07)
[2023-03-17 16:41] LABS: Glucose,Whole Blood 202 mg/dL (70-110)
--- NOTE | 2023-03-17 18:41 | P.PN ---
Progress Note - Text Progress Note Date: 03/17/23 Chief Complaint: Short of breath edema This is a pleasant 73-year-old patient who follows with Dr. Leal. Extensive medical history including atrial fibrillation, CAD, COPD, diabetes, heart of feeding, hypertension, hyperlipidemia, previous coronary bypass, mitral valve repair, EF 40-45%, Patient now presents with worsening short of breath. For at least 3 weeks. Edema is gone up to the lower abdomen. Scrotum is swollen. Decreased appetite. Nausea. No fever no chills. No chest pain. March 13: Admitted with CHF exacerbation. Remains on IV Lasix drip 10 mg hour. About 2000 mL negative fluid balance. Significant edema. at the bedside. Breathing a bit better. Today patient changed over to Bumex 1 mg every 12 by cardiology. March 14: There is on IV Bumex. 1 mg every 12. Negative fluid balance. Still has significant edema. Upper the thighs. Up in a chair. Oral intake better. March 15: Up in a chair. Remains in negative fluid balance. Bumex 1 mg IV every 12. Edema up to the thighs still present though better than before. Dis cussed with patient and . March 16: Remains on IV Bumex. Over 6 L in negative fluid balance since admission. Edema still present. Breathing better. Tolerating diet. March 17: Continues to be negative fluid balance. IV Bumex 1 mg every 12. Edema present. Some in the thigh. Oral intake good. Had a BM. Discussed with patient and at the bedside. Active Medications Acetaminophen (Acetaminophen Tab 325 Mg Tab) 650 mg PO Q6HR PRN PRN Reason: Mild Pain or Fever > 100.5 Last Admin: 03/17/23 15:07 Dose: 650 mg Hydrocodone Bitart/Acetaminophen (Hydrocodone/Apap 10-325mg 1 Each Tab) 1 each PO BID PRN PRN Reason: Pain Last Admin: 03/16/23 21:18 Dose: 1 each Acetazolamide (Acetazolamide 250 Mg Tab) 250 mg PO BID ZULMA Last Admin: 03/17/23 08:33 Dose: 250 mg Albuterol/Ipratropium (Ipratropium-Albuterol 3 Ml Neb) 3 ml INHALATION RT-Q6H PRN PRN Reason: Shortness Of Breath Albuterol/Ipratropium (Ipratropium-Albuterol 3 Ml Neb) 3 ml INHALATION RT-QID [facility] Last Admin: 03/17/23 16:17 Dose: 3 ml Alprazolam (Alprazolam 0.25 Mg Tab) 0.25 mg PO Q6HR PRN PRN Reason: Anxiety Last Admin: 03/16/23 21:17 Dose: 0.25 mg Aspirin (Aspirin 81 Mg) 81 mg PO DAILY [facility] Last Admin: 03/17/23 08:33 Dose: 81 mg Atorvastatin Calcium (Atorvastatin 80 Mg Tab) 80 mg PO HS [facility] Last Admin: 03/16/23 21:18 Dose: 80 mg Budesonide/Formoterol Fumarate (Symbicort 80-4.5 Mcg Inhaler) 2 puff INHALATION RT-BID [facility] Last Admin: 03/17/23 08:33 Dose: 2 puff Bumetanide (Bumetanide 0.25 Mg/Ml 10 Ml Vial) 1 mg IV Q12HR [facility] Last Admin: 03/17/23 08:33 Dose: 1 mg Calcium Carbonate/Glycine (Calcium Carbonate 500 Mg Chewable) 1,000 mg PO Q4HR PRN PRN Reason: Dyspepsia Cholecalciferol (Cholecalciferol 125 Mcg (5000 Iu) Tablet) 125 mcg PO DAILY [facility] Last Admin: 03/17/23 08:33 Dose: 125 mcg Ferric Sodium Gluconate 125 mg (/ Sodium Chloride) 110 mls @ 100 mls/hr IVPB DAILY [facility] Stop: 03/17/23 23:59 Last Admin: 03/17/23 08:33 Dose: 100 mls/hr Insulin Aspart (Insulin Aspart (Novolog) 100 Unit/Ml Vial) 0 unit SQ ACHS [facility]; Protocol Last Admin: 03/17/23 17:04 Dose: 2 unit Lactulose (Lactulose 20 Gm/30 Ml Cup) 20 gm PO DAILY PRN PRN Reason: Constipation Last Admin: 03/14/23 11:18 Dose: 20 gm Metolazone (Metolazone 2.5 Mg Tab) 2.5 mg PO DAILY [facility] Last Admin: 03/17/23 08:33 Dose: 2.5 mg Metoprolol Tartrate (Metoprolol Tartrate 25 Mg Tab) 25 mg PO DAILY [facility] Last Admin: 03/17/23 08:33 Dose: 25 mg Multivitamins (Multivitamins, Thera 1 Each Tab) 1 each PO DAILY [facility] Last Admin: 03/17/23 08:33 Dose: 1 each Multivitamins/Minerals (Vit A,C & V-Btpuxj-Osyvbkff 1 Each Tab) 1 each PO BID [facility] Last Admin: 03/17/23 08:33 Dose: 1 each Naloxone HCl (Naloxone 0.4 Mg/Ml 1 Ml Vial) 0.2 mg IV Q2M PRN PRN Reason: Opioid Reversal Ondansetron HCl (Ondansetron 4 Mg/2 Ml Vial) 4 mg IVP Q8HR PRN PRN Reason: Nausea And Vomiting Last Admin: 03/13/23 10:12 Dose: 4 mg Sodium Chloride (Sodium Chloride 0.65% Nasal [place] 44 Ml Btl) 2 spray NASAL QID PRN PRN Reason: Dry Nasal Passages Temazepam (Temazepam 15 Mg Cap) 15 mg PO HS PRN PRN Reason: Insomnia Social history: Patient smoked for 55 years, stopped last year. No alcohol. Does use CBD for back pain. Physical examination: VITAL SIGNS: 97.9, 75, 19, 88/55, 98% on 2 L GENERAL: Up in a chair, EYES: Pupils equal. Conjunctiva normal. HEENT: External appearance of nose and ears normal, oral cavity grossly normal. NECK: JVD raised; masses not palpable. HEART: First and second heart sounds are normal; gross edema up to the thighs LUNGS: Respiratory rate normal; decreased breath sounds. ABDOMEN: Soft, distended, abdominal wall edema nontender, liver spleen not palpable, no masses palpable. Edema up to the thighs PSYCH: Alert and oriented x3; mood and affect normal. MUSCULOSKELETAL:No Clubbing/cyanosis;muscles-grossly intact INVESTIGATIONS, reviewed in the clinical context: March 16: Potassium 3.6 BUN 42 creatinine 1.67 March 15: White count 9.2 hemoglobin 7.94.3 BUN 54 creatinine 1.63 bicarb 34 March 14: Potassium 3.8 BUN 58 creatinine 1.75 March 13: White count 8.7 hemoglobin 7.7 potassium 3.9 BUN 58 creatinine 1.65 March 12: White count 8.4 hemoglobin 7.7 platelets 206 sodium 137 potassium 4.5 BUN 55 creatinine 1.7 total bilirubin 1.4 AST 188 ALT 103 albumin 3.1 pro BNP 62991 Troponin I 0.034 EKG tracing personally reviewed by me-normal sinus rhythm. Some ST-T wave changes. Chest x-ray film personally reviewed by me-cardiomegaly. Pulmonary edema. B12 1113. Folate 27.8 Assessment and plan: -Acute on chronic congestive heart exacerbation. Systolic dysfunction EF known to be 40-45%: Slow to respond Bumex 1 mg IV every 12. Zaroxolyn 2.5 mg a day Diamox 250 mg twice a day . Strict I's and O's. Fluid restriction 1500 mL day. Follow labs closely Cardiology following. 2-D echo-pending. -Metabolic alkalosis from diuresis Add Diamox 250 mg twice a day -COPD in a previous smoker DuoNeb 4 times a day. Symbicort 2 puffs twice a day -Hyperlipidemia Lipitor 80 mg daily at bedtime-hold Lipitor for now because of elevated LFTs -CK D STAGE III suspect nephrosclerosis Follow renal function closely -Diabetes mellitus type 2 on oral hypoglycemic Actos 15 mg a day. Follow Accu-Cheks. Victoza -Paroxysmal atrial fibrillation, currently in sinus rhythm -CAD with a prior history of stent, coronary bypass Aspirin. Lipitor -Hard of hearing -Normocytic anemia B12, folate-both normal -Full code IV Bumex 1 mg every 12. Diamox Fluid restriction. Repeat checks x-ray labs in the morning. Expected patient to be here for at least 48 hours Past Medical History Past Medical History: Atrial Fibrillation, Coronary Artery Disease (CAD), COPD, Diabetes Mellitus, GI Bleed, Hearing Disorder / Deafness, Hyperlipidemia, Hypertension, Myocardial Infarction (HI), Renal Disease Additional Past Medical History / Comment(s): Previous bypass surgery, previous repair of the mitral valve, comp to get postoperative course requiring dialysis for renal failure and the patient also developed GI bleed requiring blood transfusions recent significant developed a chronic loculated left-sided pleural effusion. Other comorbidities include COPD, chronic systolic heart failure with an ejection fraction 4045%, hypertension, hyperlipidemia, paroxysmal A. fib Last Myocardial Infarction Date:: 11/2021 History of Any Multi-Drug Resistant Organisms: None Reported Past Surgical History: Back Surgery, Heart Catheterization With Stent, Joint Replacement, Orthopedic Surgery Additional Past Surgical History / Comment(s): BILATERAL KNEE REPLACEMENTS, BILATERAL SHOULDER SURGERY, ONE CARDIAC STENT, back surgery X2 (lumbar decompression and fusion), BACK INJECTIONS, COLONOSCOPY, BILATERAL CATARACTS REMOVED WITH LENS IMPLANTS, Cardioversion. ganglion cyst rt wrist removed Past Anesthesia/Blood Transfusion Reactions: No Reported Reaction Additional Past Anesthesia/Blood Transfusion Reaction / Comment(s): no issues with blood transfusions Date of Last Stent Placement:: 2000 Past Psychological History: No Psychological Hx Reported Smoking Status: Former smoker
[2023-03-17 20:35] LABS: Glucose,Whole Blood 172 mg/dL (70-110)
[2023-03-17] MEDS: HYDROcodone/APAP 10-325MG 1 EACH TAB PO PRN (21:41)
[2023-03-17] MEDS: ALPRAZolam 0.25 MG TAB PO PRN (21:41)
[2023-03-17] MEDS: ATORVASTATIN 80 MG TAB PO SCH (21:41)
[2023-03-18] MEDS: ACETAMINOPHEN TAB 325 MG TAB PO PRN (00:35)
[2023-03-18 06:14] LABS: Glucose,Whole Blood 163 mg/dL (70-110)
[2023-03-18] MEDS: INSULIN ASPART (NovoLOG) 100 UNIT/ML VIAL SQ SCH ×4 (06:56→21:16)
--- NOTE | 2023-03-18 08:12 | XR ---
EXAMINATION TYPE: XR chest 2V DATE OF EXAM: 03/18/2023 COMPARISON: 03/14/2023 INDICATION: CHF TECHNIQUE: Frontal and lateral views of the chest are obtained. FINDINGS: The heart size is mildly prominent. Cardiac valve surgery is evident.. The pulmonary vasculature is normal. Mild infiltrates at the bilateral lung bases. These have slight improvement over the interval Small p leural effusions are present. IMPRESSION: 1. Mild improvement in congestive heart failure. Continued follow-up is recommended
[2023-03-18] MEDS: IPRATROPIUM-ALBUTEROL 3 ML NEB INHALATION SCH ×4 (08:18→20:18)
[2023-03-18] MEDS: SYMBICORT 80-4.5 MCG INHALER INHALATION SCH ×2 (08:18→20:18)
[2023-03-18] MEDS: METOPROLOL TARTRATE 12.5 MG TAB PO SCH ×2 (08:50→21:22)
[2023-03-18] MEDS: ASPIRIN 81 MG PO SCH (08:50)
[2023-03-18] MEDS: VIT A,C & E-LUTEIN-MINERALS 1 EACH TAB PO SCH ×2 (08:50→21:22)
[2023-03-18] MEDS: acetaZOLAMIDE 250 MG TAB PO SCH (08:50)
[2023-03-18] MEDS: MULTIVITAMINS, THERA 1 EACH TAB PO SCH (08:50)
[2023-03-18] MEDS: CHOLECALCIFEROL 125 MCG (5000 IU) TABLET PO SCH (08:50)
[2023-03-18] MEDS: BUMETANIDE 0.25 MG/ML 10 ML VIAL IV SCH (08:50)
[2023-03-18] MEDS: metOLazone 2.5 MG TAB PO SCH (08:50)
[2023-03-18 11:03] LABS: Potassium 3.5 mmol/L (3.5-5.1)
[2023-03-18 11:04] LABS: ALT 72 U/L (4-49); AST 89 U/L (17-59); African American GFR (CKD) 36 (>60 ml/min/1.73 sqM); Albumin 3.6 g/dL (3.5-5.0); Alkaline Phosphatase 70 U/L (38-126); Anion Gap 10 mmol/L; Blood Urea Nitrogen 54 mg/dL (9-20); Carbon Dioxide 33 mmol/L (22-30); Chloride 93 mmol/L (98-107); Glucose 151 mg/dL (74-99); Magnesium 2.4 mg/dL (1.6-2.3); Non-African American GFR(CKD) 31 (>60 ml/min/1.73 sqM); Sodium 136 mmol/L (137-145); Total Bilirubin 1.1 mg/dL (0.2-1.3); Total Protein 6.4 g/dL (6.3-8.2)
[2023-03-18 11:53] LABS: Glucose,Whole Blood 195 mg/dL (70-110)
[2023-03-18] MEDS ORDERED: POTASSIUM CHLORIDE ER 20 MEQ TAB.ER PO STA (12:10)
--- NOTE | 2023-03-18 12:11 | P.PN ---
Subjective Patient is seen in follow-up for acute kidney injury and chronic kidney disease. Renal function worsened diuresis. Sitting up in chair. Hemodynamically stable. Nonoliguric. No vomiting or diarrhea. No chest pain or shortness of breath. Vital signs are stable. General: No acute distress. HEENT: Head exam is unremarkable. On nasal cannula. LUNGS: No audible rhonchi or wheezes. HEART: Rate and Rhythm are regular. ABDOMEN: Nontender. EXTREMITITES: 1+ edema. Objective - Vital Signs Vital signs: Vital Signs Temp 98.7 F 03/18/23 08:35 Pulse 92 03/18/23 11:40 Resp 18 03/18/23 08:35 BP 94/58 03/18/23 08:35 Pulse Ox 95 03/18/23 08:35 FiO2 Intake & Output 03/17/23 03/18/23 03/18/23 18:59 06:59 18:59 Intake Total 720 Output Total 1375 1300 800 Balance -655 -1300 -800 Weight 71.4 kg Intake: Oral 720 Output: Urine 1375 1300 800 Other: Voiding Method Urinal Urinal Urinal # Voids 1 - Labs CBC & Chem 7: 03/15/23 09:33 03/18/23 09:56 Labs: Abnormal Lab Results - Last 24 Hours (Table) 03/17/23 03/17/23 03/17/23 Range/Units 12:10 16:40 20:33 Sodium (137-145) mmol/L Chloride (98-107) mmol/L Carbon Dioxide (22-30) mmol/L BUN (9-20) mg/dL Creatinine (0.66-1.25) mg/dL Glucose (74-99) mg/dL POC Glucose (mg/dL) 155 H 202 H 172 H (70-110) mg/dL Magnesium (1.6-2.3) mg/dL AST (17-59) U/L ALT (4-49) U/L 03/18/23 03/18/23 03/18/23 Range/Units 06:12 09:56 11:52 Sodium 136 L (137-145) mmol/L Chloride 93 L (98-107) mmol/L Carbon Dioxide 33 H (22-30) mmol/L BUN 54 H (9-20) mg/dL Creatinine 2.03 H (0.66-1.25) mg/dL Glucose 151 H (74-99) mg/dL POC Glucose (mg/dL) 163 H 195 H (70-110) mg/dL Magnesium 2.4 H (1.6-2.3) mg/dL AST 89 H (17-59) U/L ALT 72 H (4-49) U/L Assessment and Plan Plan: Assessment: 1. Acute kidney injury secondary to ATN secondary to cardiorenal syndrome. UA benign. No hydronephrosis noted on kidney ultrasound. Renal function for some diuresis with creatinine at 2.03 today. 2. Acute on chronic systolic CHF. 3. Chronic kidney disease stage IIIB with baseline creatinine 1.5-1.6 secondary to cardiorenal syndrome. 4. Hypokalemia from diuresis. 5. Anemia. Iron deficiency noted. Status post IV iron. 6. Diabetes mellitus. Plan: Change Bumex to oral. Maintain metolazone. Replace potassium. 1500 mL fluid restriction. Low-salt diet. Add Aranesp. Advised patient to monitor his weight closely at home and to notify physician if develops worsening edema or weight gain of more than 3 pounds in 1 week duration. Follow up outpatient 1 week post discharge.
[2023-03-18] MEDS: BUMETANIDE 1 MG TAB PO SCH (12:13)
[2023-03-18] MEDS ORDERED: DARBEPOETIN ALFA 40 MCG/0.4 ML SYRINGE SQ SCH (13:00)
[2023-03-18 13:30] VITALS: BMI 23.9
--- NOTE | 2023-03-18 14:00 | P.PN ---
Subjective HISTORY OF PRESENT ILLNESS: This is a 73-year-old male who follows in the office with Dr. Man. Patient presented to the hospital with shortness of breath and increased swelling. Patient is being treated for acute on chronic heart failure. He currently is on IV diuretics. Patient currently denies chest pain or pressure. He denies shortness of breath. He continues to have mild lower extremity edema. Vital signs are stable. Echocardiogram completed revealing ejection fraction 30-35%, moderate left ear, severe TR, and pulmonary hypertension PHYSICAL EXAM: VITAL SIGNS: Reviewed. GENERAL: Well-developed in no acute distress. NECK: Supple. No JVD or thyromegaly LUNGS: Respirations even and unlabored. Lungs essentially clear to auscultation bilaterally. HEART: Regular rate and rhythm. S1 and S2 heard. Systolic murmur noted. EXTREMITIES: Normal range of motion. No clubbing or cyanosis. Peripheral pulses intact. 1+ bilateral lower extremity edema ASSESSMENT: Acute on chronic systolic heart failure Persistent atrial fibrillation not on anticoagulation due to bleeding Cardiomyopathy COPD Bilateral pleural effusions with left-sided Pleurx, removed on 03/13/2023 Coronary artery disease with previous CABG Valvular heart disease status post mitral valve repair Hypertension Hyperlipidemia Acute kidney injury and chronic kidney disease Chronic anemia PLAN: Continue current cardiac medications Patient has been switched to oral Bumex per nephrology Daily weights, accurate I&O, and monitoring of kidney function Discontinue Diamox Possible discharge home tomorrow Further recommendations pending patient's course Nurse practitioner note has been reviewed by physician. Signing provider agrees with the documented findings, assessment, and plan of care. Objective - Vital Signs Vital signs: Vital Signs Temp 98.7 F 03/18/23 08:35 Pulse 92 03/18/23 11:40 Resp 18 03/18/23 08:35 BP 94/58 03/18/23 08:35 Pulse Ox 95 03/18/23 08:35 FiO2 Intake & Output 03/17/23 03/18/23 03/18/23 18:59 06:59 18:59 Intake Total 720 Output Total 1375 1300 1150 Balance -570 -7114 -2615 Weight 71.4 kg 71.4 kg Intake: Oral 720 Output: Urine 1375 1300 1150 Other: Voiding Method Urinal Urinal Urinal # Voids 1 - Labs CBC & Chem 7: 03/15/23 09:33 03/18/23 09:56 Labs: Abnormal Lab Results - Last 24 Hours (Table) 03/17/23 03/17/23 03/18/23 Range/Units 16:40 20:33 06:12 Sodium (137-145) mmol/L Chloride (98-107) mmol/L Carbon Dioxide (22-30) mmol/L BUN (9-20) mg/dL Creatinine (0.66-1.25) mg/dL Glucose (74-99) mg/dL POC Glucose (mg/dL) 202 H 172 H 163 H (70-110) mg/dL Magnesium (1.6-2.3) mg/dL AST (17-59) U/L ALT (4-49) U/L 03/18/23 03/18/23 Range/Units 09:56 11:52 Sodium 136 L (137-145) mmol/L Chloride 93 L (98-107) mmol/L Carbon Dioxide 33 H (22-30) mmol/L BUN 54 H (9-20) mg/dL Creatinine 2.03 H (0.66-1.25) mg/dL Glucose 151 H (74-99) mg/dL POC Glucose (mg/dL) 195 H (70-110) mg/dL Magnesium 2.4 H (1.6-2.3) mg/dL AST 89 H (17-59) U/L ALT 72 H (4-49) U/L
--- NOTE | 2023-03-18 15:06 | P.PN ---
Subjective Progress Note Date: 03/18/23 Principal diagnosis: Respiratory insufficiency. CHF. Reevaluated today on 03/14/2023, patient responded well to diuresis/Lasix drip upper admission, and now he remains on diuretics, doing much better feeling great, significant amount of diuresis over the last 24 hours been noted. Patient is on 2 L nasal cannula with O2 sats of 99%, labs are noted BUN is 58 creatinine 1.75 which is not far off from his baseline. Chest x-ray shows chronic right basilar pleural effusions, and his Pleurx catheter has been removed Patient was reevaluated today on 03/15/2023, patient is now on IV Bumex 1 mg IV push every 12 hours patient continues to diurese nicely he is actually negative balance 1.1 in the last 24 hours. Creatinine is holding it is down to 1.6. Overall the patient is dramatically improving with diuretics. Not to mention the patient is feeling much better and breathing a lot easier and WBC count is 9.2 hemoglobin 7.9 electrolytes are normal Reevaluated today on 03/16/2023, patient continues to do well, continues to have negative fluid balance 1.6 L in the last 24 hours. Remains on Bumex at 1 mg IV push twice a day creatinine is 1.67. Weekly the patient is feeling good, hardly any shortness of breath, he is on room air, no cough no wheezing no chest pain n o fever no chills. Basic metabolic profile is normal bicarb is 36 Reevaluated today on 03/17/23 patient is doing great, steadily improving and he continues to improve with diuretics, on 2 L nasal cannula with O2 sat showed 100% he may not actually need oxygen anymore. Remains in negative fluid b alance, creatinine maintaining in the usual range of 1.6. At this point I believe the patient should be considered for discharge planning and follow-up on outpatient basis Progress note dated 03/18/2023. The patient is seen today in room 368. He's currently on 2 L of oxygen. He's not receiving any IV fluids. He is hoping to be discharged soon. He is feeling much improved. He sitting in the chair, next to his bed. Current lab data includes a sodium 136, potassium 3.5, chlorides 93, CO2 33, BUN 54, and creatinine 2.03. Calcium is 9, with an albumin of 3.6. Chest x-ray shows improvement in the patient's underlying CHF. Objective - Vital Signs Vital signs: Vital Signs Temp 98.7 F 03/18/23 08:35 Pulse 87 03/18/23 12:10 Resp 17 03/18/23 12:10 BP 89/52 03/18/23 12:10 Pulse Ox 93 L 03/18/23 12:10 FiO2 Intake & Output 03/17/23 03/18/23 03/18/23 18:59 06:59 18:59 Intake Total 720 Output Total 1375 1300 1250 Balance -655 1300 -1250 Weight 71.4 kg 71.4 kg Intake: Oral 720 Output: Urine 1375 1300 1250 Other: Voiding Method Urinal Urinal Urinal # Voids 1 - Exam No acute distress, oriented 3. No respiratory distress. Currently on 2 L. HEENT examination is grossly unremarkable. Neck supple. Full range of motion. No adenopathy thyromegaly or neck vein distention. Cardiovascular examination reveals regular rhythm rate. S1-S2 normal. No S3 or S4. No discernible murmur noted. Heart rate 87 bpm. Lungs reveal scattered bilateral rhonchi. Minimal crackles. No wheezes. Breath sounds equal bilaterally. 2 L saturation is 93%. Abdomen soft bowel sounds are heard. No masses or tenderness. Extremities are intact. No cyanosis clubbing or edema. Skin is without rash or lesion. Neurologic examination is brief but nonfocal. - Labs CBC & Chem 7: 03/15/23 09:33 03/18/23 09:56 Labs: Abnormal Lab Results - Last 24 Hours (Table) 03/17/23 03/17/23 03/18/23 Range/Units 16:40 20:33 06:12 Sodium (137-145) mmol/L Chloride (98-107) mmol/L Carbon Dioxide (22-30) mmol/L BUN (9-20) mg/dL Creatinine (0.66-1.25) mg/dL Glucose (74-99) mg/dL POC Glucose (mg/dL) 202 H 172 H 163 H (70-110) mg/dL Magnesium (1.6-2.3) mg/dL AST (17-59) U/L ALT (4-49) U/L 10/16/23 10/16/23 Range/Units 09:56 11:52 Sodium 136 L (137-145) mmol/L Chloride 93 L (98-107) mmol/L Carbon Dioxide 33 H (22-30) mmol/L BUN 54 H (9-20) mg/dL Creatinine 2.03 H (0.66-1.25) mg/dL Glucose 151 H (74-99) mg/dL POC Glucose (mg/dL) 195 H (70-110) mg/dL Magnesium 2.4 H (1.6-2.3) mg/dL AST 89 H (17-59) U/L ALT 72 H (4-49) U/L Assessment and Plan Assessment: Acute on chronic systolic heart failure with an ejection fraction of 40-45%. Acute on chronic hypoxemic respiratory failure. Chronic obstructive pulmonary disease. Hyperlipidemia. Stage III chronic kidney disease. Diabetes mellitus. Paroxysmal atrial fibrillation. CAD with previous bypass grafting, and stent placement. History of mitral valve repair. Hearing disorder. Previous history of tobacco use. Hypertension. Hyperlipidemia. Plan: Plan dated 03/18/2023. Patient is seen today in room 368. He's currently on 2 L. Labs, x-rays, and medications are reviewed. The patient is feeling much improved, and is hoping to be discharged home soon. To follow make recommendations along the way. Prognosis is certainly guarded. Time with Patient: Less than 30
[2023-03-18 16:37] VITALS: RESP 18
[2023-03-18 16:56] LABS: Glucose,Whole Blood 287 mg/dL (70-110)
[2023-03-18 19:50] LABS: Glucose,Whole Blood 142 mg/dL (70-110)
--- NOTE | 2023-03-18 20:47 | P.PN ---
Progress Note - Text Progress Note Date: 03/18/23 Chief Complaint: Short of breath edema This is a pleasant 73-year-old patient who follows with Dr. Leal. Extensive medical history including atrial fibrillation, CAD, COPD, diabetes, heart of feeding, hypertension, hyperlipidemia, previous coronary bypass, mitral valve repair, EF 40-45%, Patient now presents with worsening short of breath. For at least 3 weeks. Edema is gone up to the lower abdomen. Scrotum is swollen. Decreased appetite. Nausea. No fever no chills. No chest pain. March 13: Admitted with CHF exacerbation. Remains on IV Lasix drip 10 mg hour. About 2000 mL negative fluid balance. Significant edema. at the bedside. Breathing a bit better. Today patient changed over to Bumex 1 mg every 12 by cardiology. March 14: There is on IV Bumex. 1 mg every 12. Negative fluid balance. Still has significant edema. Upper the thighs. Up in a chair. Oral intake better. March 15: Up in a chair. Remains in negative fluid balance. Bumex 1 mg IV every 12. Edema up to the thighs still present though better than before. Dis cussed with patient and . March 16: Remains on IV Bumex. Over 6 L in negative fluid balance since admission. Edema still present. Breathing better. Tolerating diet. March 17: Continues to be negative fluid balance. IV Bumex 1 mg every 12. Edema present. Some in the thigh. Oral intake good. Had a BM. Discussed with patient and at the bedside. March 18: Seen by nephrology this morning. Changed over to oral Bumex. Liver ultrasound ordered. Discussed with patient and . Increase activity. Active Medications Acetaminophen (Acetaminophen Tab 325 Mg Tab) 650 mg PO Q6HR PRN PRN Reason: Mild Pain or Fever > 100.5 Last Admin: 03/18/23 00:35 Dose: 650 mg Hydrocodone Bitart/Acetaminophen (Hydrocodone/Apap 10-325mg 1 Each Tab) 1 each PO BID PRN PRN Reason: Pain Last Admin: 03/17/23 21:41 Dose: 1 each Albuterol/Ipratropium (Ipratropium-Albuterol 3 Ml Neb) 3 ml INHALATION RT-Q6H PRN PRN Reason: Shortness Of Breath Albuterol/Ipratropium (Ipratropium-Albuterol 3 Ml Neb) 3 ml INHALATION RT-QID [facility] Last Admin: 03/18/23 20:18 Dose: 3 ml Alprazolam (Alprazolam 0.25 Mg Tab) 0.25 mg PO Q6HR PRN PRN Reason: Anxiety Last Admin: 03/17/23 21:41 Dose: 0.25 mg Aspirin (Aspirin 81 Mg) 81 mg PO DAILY [facility] Last Admin: 03/18/23 08:50 Dose: 81 mg Atorvastatin Calcium (Atorvastatin 80 Mg Tab) 80 mg PO HS [facility] Last Admin: 03/17/23 21:41 Dose: 80 mg Budesonide/Formoterol Fumarate (Symbicort 80-4.5 Mcg Inhaler) 2 puff INHALATION RT-BID [facility] Last Admin: 03/18/23 20:18 Dose: 2 puff Bumetanide (Bumetanide 1 Mg Tab) 1 mg PO BID@0900,1600 [facility] Last Admin: 03/18/23 12:13 Dose: Not Given Calcium Carbonate/Glycine (Calcium Carbonate 500 Mg Chewable) 1,000 mg PO Q4HR PRN PRN Reason: Dyspepsia Cholecalciferol (Cholecalciferol 125 Mcg (5000 Iu) Tablet) 125 mcg PO DAILY [facility] Last Admin: 03/18/23 08:50 Dose: 125 mcg Darbepoetin Carlos (Darbepoetin Carlos 40 Mcg/0.4 Ml Syringe) 40 mcg SQ Q7D [facility] Last Admin: 03/18/23 14:22 Dose: 40 mcg Insulin Aspart (Insulin Aspart (Novolog) 100 Unit/Ml Vial) 0 unit SQ [facility]; Protocol Last Admin: 03/18/23 17:26 Dose: 6 unit Lactulose (Lactulose 20 Gm/30 Ml Cup) 20 gm PO DAILY PRN PRN Reason: Constipation Last Admin: 03/14/23 11:18 Dose: 20 gm Metolazone (Metolazone 2.5 Mg Tab) 2.5 mg PO DAILY [facility] Last Admin: 03/18/23 08:50 Dose: 2.5 mg Metoprolol Tartrate (Metoprolol Tartrate 12.5 Mg Tab) 12.5 mg PO BID [facility] Last Admin: 03/18/23 08:50 Dose: 12.5 mg Multivitamins (Multivitamins, Thera 1 Each Tab) 1 each PO DAILY [facility] Last Admin: 03/18/23 08:50 Dose: 1 each Multivitamins/Minerals (Vit A,C & A-Axlaov-Dgaokkyg 1 Each Tab) 1 each PO BID [facility] Last Admin: 03/18/23 08:50 Dose: 1 each Naloxone HCl (Naloxone 0.4 Mg/Ml 1 Ml Vial) 0.2 mg IV Q2M PRN PRN Reason: Opioid Reversal Ondansetron HCl (Ondansetron 4 Mg/2 Ml Vial) 4 mg IVP Q8HR PRN PRN Reason: Nausea And Vomiting Last Admin: 03/13/23 10:12 Dose: 4 mg Sodium Chloride (Sodium Chloride 0.65% Nasal [place] 44 Ml Btl) 2 spray NASAL QID PRN PRN Reason: Dry Nasal Passages Temazepam (Temazepam 15 Mg Cap) 15 mg PO HS PRN PRN Reason: Insomnia Social history: Patient smoked for 55 years, stopped last year. No alcohol. Does use CBD for back pain. Physical examination: VITAL SIGNS: 98.8, 92, 18, 99/53, 94% room air GENERAL: Up in a chair, EYES: Pupils equal. Conjunctiva normal. HEENT: External appearance of nose and ears normal, oral cavity grossly normal. NECK: JVD raised; masses not palpable. HEART: First and second heart sounds are normal; edema present LUNGS: Respiratory rate normal; decreased breath sounds. ABDOMEN: Soft, distended, abdominal wall edema nontender, liver spleen not palpable, no masses palpable. Edema up to the thighs PSYCH: Alert and oriented x3; mood and affect normal. MUSCULOSKELETAL:No Clubbing/cyanosis;muscles-grossly intact INVESTIGATIONS, reviewed in the clinical context: March 18: Potassium 3.5 creatinine 2.03 AST 89 ALT 72 March 13: White count 8.7 hemoglobin 7.7 potassium 3.9 BUN 58 creatinine 1.65 March 12: White count 8.4 hemoglobin 7.7 platelets 206 sodium 137 potassium 4.5 BUN 55 creatinine 1.7 total bilirubin 1.4 AST 188 ALT 103 albumin 3.1 pro BNP 01036 Troponin I 0.034 EKG tracing personally reviewed by me-normal sinus rhythm. Some ST-T wave changes. Chest x-ray film personally reviewed by me-cardiomegaly. Pulmonary edema. B12 1113. Folate 27.8 Assessment and plan: -Acute on chronic congestive heart exacerbation. Systolic dysfunction EF known to be 40-45%: Improving Bumex 1 mg po every 12. Zaroxolyn 2.5 mg a day Diamox 250 mg twice a day . Strict I's and O's. Fluid restriction 1500 mL day. Follow labs closely Cardiology following. 2-D echo-pending. -Metabolic alkalosis from diuresis Diamox 250 mg twice a day-discontinued -COPD in a previous smoker DuoNeb 4 times a day. Symbicort 2 puffs twice a day -Hyperlipidemia Lipitor 80 mg daily at bedtime-hold Lipitor for now because of elevated LFTs -CK D STAGE III suspect nephrosclerosis Follow renal function closely -Diabetes mellitus type 2 on oral hypoglycemic Actos 15 mg a day. Follow Accu-Cheks. Victoza -Paroxysmal atrial fibrillation, currently in sinus rhythm -CAD with a prior history of stent, coronary bypass Aspirin. Lipitor -Hard of hearing -Normocytic anemia B12, folate-both normal -Full code Oral Bumex. Liver ultrasound. Increase activity. Discussed with patient night. Hopefully home tomorrow.
[2023-03-18] MEDS: ATORVASTATIN 80 MG TAB PO SCH (21:22)
[2023-03-18] MEDS: HYDROcodone/APAP 10-325MG 1 EACH TAB PO PRN (21:26)
[2023-03-18] MEDS: ALPRAZolam 0.25 MG TAB PO PRN (21:26)
[2023-03-19 05:40] LABS: Glucose,Whole Blood 137 mg/dL (70-110)
[2023-03-19] MEDS: INSULIN ASPART (NovoLOG) 100 UNIT/ML VIAL SQ SCH ×2 (06:08→13:30)
[2023-03-19 07:59] LABS: Anisocytosis Slight; Basophils % (A) 0 %; Eosinophils # (A) 0.6 k/uL (0-0.7); Eosinophils % (A) 8 %; HCT 25.2 % (39.0-53.0); HGB 7.7 gm/dL (13.0-17.5); Hypochromasia Marked; Lymphocytes # (A) 0.5 k/uL (1.0-4.8); Lymphocytes % (A) 7 %; MCH 29.8 pg (25.0-35.0); MCHC 30.3 g/dL (31.0-37.0); MCV 98.4 fL (80.0-100.0); Macrocytosis Slight; Mean Platelet Volume 8.8; Monocytes # (A) 0.8 k/uL (0-1.0); Monocytes % (A) 11 %; Neutrophils # (A) 5.3 k/uL (1.3-7.7); Neutrophils % (A) 70 %; Platelet Count 216 k/uL (150-450); RBC 2.57 m/uL (4.30-5.90); RDW 18.2 % (11.5-15.5); WBC 7.5 k/uL (3.8-10.6)
[2023-03-19] MEDS: SYMBICORT 80-4.5 MCG INHALER INHALATION SCH (08:07)
[2023-03-19] MEDS: IPRATROPIUM-ALBUTEROL 3 ML NEB INHALATION SCH ×2 (08:07→11:27)
--- NOTE | 2023-03-19 08:17 | US ---
EXAMINATION TYPE: US abdomen limited DATE OF EXAM: 03/19/2023 COMPARISON: Renal ultrasound 03/14/2023 CLINICAL INDICATION: Male, 73 years old with history of mild liver enzymes elevated; elevated liver e nzymes TECHNIQUE: Multiple sonographic images of the right upper quadrant are obtained. FINDINGS: EXAM MEASUREMENTS: Liver Length: 18.6 cm Gallbladder Wall: 0.3 cm CBD: 0.5 cm Right Kidney: 10.5 x 4.9 x 5.3 cm Pancreas: Tail obscured by overlying bowel gas Liver: enlarged. small amount of free fluid adjacent Gallbladder: hydropic. small amount of debris posteriorly Evidence for sonographic Rick's sign: no CBD: wnl Right Kidney: no evidence of hydronephrosis Visualized portions of pancreas unremarkable. The tail is obscured by overlying bowel gas. Liver is e nlarged without focal lesion identified. Small amount of perihepatic ascites demonstrated. Gallbladde r is hydropic with small amount of layering debris. No wall thickening or pericholecystic fluid. Per glue mixer, negative sonographic Rick sign. Common bile duct is within normal limits. No hydroneph rosis, nephrolithiasis, or solid mass involving the right kidney. IMPRESSION: 1. Hydropic gallbladder with small layering debris. No ultrasound evidence for acute cholecystitis. 2. Hepatomegaly without focal lesion identified. 3. Trace perihepatic ascites.
[2023-03-19 08:20] LABS: African American GFR (CKD) 41 (>60 ml/min/1.73 sqM); Anion Gap 8 mmol/L; Blood Urea Nitrogen 58 mg/dL (9-20); Carbon Dioxide 31 mmol/L (22-30); Chloride 96 mmol/L (98-107); Glucose 116 mg/dL (74-99); Magnesium 2.5 mg/dL (1.6-2.3); Non-African American GFR(CKD) 36 (>60 ml/min/1.73 sqM); Potassium 3.5 mmol/L (3.5-5.1); Sodium 135 mmol/L (137-145)
[2023-03-19] MEDS: metOLazone 2.5 MG TAB PO SCH (08:34)
[2023-03-19] MEDS: ASPIRIN 81 MG PO SCH (08:34)
[2023-03-19] MEDS: MULTIVITAMINS, THERA 1 EACH TAB PO SCH (08:34)
[2023-03-19] MEDS: BUMETANIDE 1 MG TAB PO SCH (08:34)
[2023-03-19] MEDS: METOPROLOL TARTRATE 12.5 MG TAB PO SCH (08:34)
[2023-03-19] MEDS: VIT A,C & E-LUTEIN-MINERALS 1 EACH TAB PO SCH (08:34)
[2023-03-19] MEDS: CHOLECALCIFEROL 125 MCG (5000 IU) TABLET PO SCH (08:34)
[2023-03-19 10:20] VITALS: BP 101/60; TEMP 97.7
[2023-03-19] MEDS ORDERED: POTASSIUM CHLORIDE ER 20 MEQ TAB.ER PO STA (11:15)
--- NOTE | 2023-03-19 11:19 | P.PN ---
Subjective Patient is seen in follow-up for acute kidney injury and chronic kidney disease. Renal function fairly stable. Sitting up in chair. Hemodynamically stable. Nonoliguric. No vomiting or diarrhea. No chest pain or shortness of breath. Vital signs are stable. General: No acute distress. HEENT: Head exam is unremarkable. On nasal cannula. LUNGS: No audible rhonchi or wheezes. HEART: Rate and Rhythm are regular. ABDOMEN: Nontender. EXTREMITITES: 1+ edema. Objective - Vital Signs Vital signs: Vital Signs Temp 97.7 F 03/19/23 08:00 Pulse 88 03/19/23 08:09 Resp 18 03/19/23 08:00 BP 101/60 03/19/23 08:00 Pulse Ox 93 L 03/19/23 08:09 FiO2 Intake & Output 03/18/23 03/19/23 03/19/23 18:59 06:59 18:59 Intake Total 240 118 Output Total 2900 350 325 Balance -2900 -110 -207 Weight 71.4 kg Intake: Oral 240 118 Output: Urine 2900 350 325 Other: Voiding Method Urinal Urinal Urinal # Voids 1 1 # Bowel Movements 1 - Labs CBC & Chem 7: 03/19/23 07:40 03/19/23 07:40 Labs: Abnormal Lab Results - Last 24 Hours (Table) 03/18/23 03/18/23 03/18/23 Range/Units 11:52 16:55 19:49 RBC (4.30-5.90) m/uL Hgb (13.0-17.5) gm/dL Hct (39.0-53.0) % MCHC (31.0-37.0) g/dL RDW (11.5-15.5) % Lymphocytes # (1.0-4.8) k/uL Sodium (137-145) mmol/L Chloride (98-107) mmol/L Carbon Dioxide (22-30) mmol/L BUN (9-20) mg/dL Creatinine (0.66-1.25) mg/dL Glucose (74-99) mg/dL POC Glucose (mg/dL) 195 H 287 H 142 H (70-110) mg/dL Magnesium (1.6-2.3) mg/dL 03/19/23 03/19/23 03/19/23 Range/Units 05:38 07:40 07:40 RBC 2.57 L (4.30-5.90) m/uL Hgb 7.7 L (13.0-17.5) gm/dL Hct 25.2 L (39.0-53.0) % MCHC 30.3 L (31.0-37.0) g/dL RDW 18.2 H (11.5-15.5) % Lymphocytes # 0.5 L (1.0-4.8) k/uL Sodium 135 L (137-145) mmol/L Chloride 96 L (98-107) mmol/L Carbon Dioxide 31 H (22-30) mmol/L BUN 58 H (9-20) mg/dL Creatinine 1.83 H (0.66-1.25) mg/dL Glucose 116 H (74-99) mg/dL POC Glucose (mg/dL) 137 H (70-110) mg/dL Magnesium 2.5 H (1.6-2.3) mg/dL Assessment and Plan Plan: Assessment: 1. Acute kidney injury secondary to ATN secondary to cardiorenal syndrome. UA benign. No hydronephrosis noted on kidney ultrasound. Renal function worse from diuresis with creatinine at 2.03 dated 03/18/2023 - 1.83 today. Nonoliguric. 2. Acute on chronic systolic CHF. 3. Chronic kidney disease stage IIIB with baseline creatinine 1.5-1.6 secondary to cardiorenal syndrome. 4. Hypokalemia from diuresis. 5. Anemia. Iron deficiency noted. Status post IV iron. On Aranesp. 6. Diabetes mellitus. Plan: Maintain Bumex. Maintain metolazone. Replace potassium. Also add maintenance potassium supplementation. 1500 mL fluid restriction. Low-salt diet. Advised patient to monitor his weight closely at home and to notify physician if develops worsening edema or weight gain of more than 3 pounds in 1 week duration. Repeat BMP and magnesium level 2-3 days postdischarge. Follow up outpatient 1 week post discharge.
[2023-03-19 11:36] LABS: Glucose,Whole Blood 161 mg/dL (70-110)
--- NOTE | 2023-03-19 13:27 | P.PN ---
Subjective Progress Note Date: 03/19/23 Principal diagnosis: Respiratory insufficiency. CHF. Reevaluated today on 03/14/2023, patient responded well to diuresis/Lasix drip upper admission, and now he remains on diuretics, doing much better feeling great, significant amount of diuresis over the last 24 hours been noted. Patient is on 2 L nasal cannula with O2 sats of 99%, labs are noted BUN is 58 creatinine 1.75 which is not far off from his baseline. Chest x-ray shows chronic right basilar pleural effusions, and his Pleurx catheter has been removed Patient was reevaluated today on 03/15/2023, patient is now on IV Bumex 1 mg IV push every 12 hours patient continues to diurese nicely he is actually negative balance 1.1 in the last 24 hours. Creatinine is holding it is down to 1.6. Overall the patient is dramatically improving with diuretics. Not to mention the patient is feeling much better and breathing a lot easier and WBC count is 9.2 hemoglobin 7.9 electrolytes are normal Reevaluated today on 03/16/2023, patient continues to do well, continues to have negative fluid balance 1.6 L in the last 24 hours. Remains on Bumex at 1 mg IV push twice a day creatinine is 1.67. Weekly the patient is feeling good, hardly any shortness of breath, he is on room air, no cough no wheezing no chest pain n o fever no chills. Basic metabolic profile is normal bicarb is 36 Reevaluated today on 03/17/23 patient is doing great, steadily improving and he continues to improve with diuretics, on 2 L nasal cannula with O2 sat showed 100% he may not actually need oxygen anymore. Remains in negative fluid b alance, creatinine maintaining in the usual range of 1.6. At this point I believe the patient should be considered for discharge planning and follow-up on outpatient basis Progress note dated 03/18/2023. The patient is seen today in room 368. He's currently on 2 L of oxygen. He's not receiving any IV fluids. He is hoping to be discharged soon. He is feeling much improved. He sitting in the chair, next to his bed. Current lab data includes a sodium 136, potassium 3.5, chlorides 93, CO2 33, BUN 54, and creatinine 2.03. Calcium is 9, with an albumin of 3.6. Chest x-ray shows improvement in the patient's underlying CHF. Progress note dated 03/19/2023. 73-year-old male seen today in room 378. The patient remains on oxygen at 2 L. Saturations are 93%. The patient is not receiving any IV fluids. Clinically, he is doing better, without any respiratory issues at this time. White count is 7.5, hemoglobin 7.7, hematocrit 25.2, with a platelet count of 260,000. Sodium 135, potassium 3.5, chlorides 96, CO2 31, BUN 58, and creatinine 1.83. Chest x- ray, from March 18, shows improvement in the patient's overall volume status. Objective - Vital Signs Vital signs: Vital Signs Temp 97.7 F 03/19/23 08:00 Pulse 88 03/19/23 11:34 Resp 18 03/19/23 08:00 BP 101/60 03/19/23 08:00 Pulse Ox 93 L 03/19/23 08:09 FiO2 Intake & Output 03/18/23 03/19/23 03/19/23 18:59 06:59 18:59 Intake Total 240 118 Output Total 2900 350 575 Balance -2900 -110 -457 Weight 71.4 kg Intake: Oral 240 118 Output: Urine 2900 350 575 Other: Voiding Method Urinal Urinal Urinal # Voids 1 1 # Bowel Movements 1 - Exam No acute distress, oriented 3. No respiratory distress. Currently on 2 L. HEENT examination is grossly unremarkable. Neck supple. Full range of motion. No adenopathy thyromegaly or neck vein distention. Cardiovascular examination reveals regular rhythm rate. S1-S2 normal. No S3 or S4. No discernible murmur noted. Heart rate 85 bpm. Lungs reveal scattered bilateral rhonchi. Minimal crackles. No wheezes. Breath sounds equal bilaterally. 2 L saturation is 93%. Abdomen soft bowel sounds are heard. No masses or tenderness. Extremities are intact. No cyanosis clubbing or edema. Skin is without rash or lesion. Neurologic examination is brief but nonfocal. - Labs CBC & Chem 7: 03/19/23 07:40 03/19/23 07:40 Labs: Abnormal Lab Results - Last 24 Hours (Table) 03/18/23 03/18/23 03/19/23 Range/Units 16:55 19:49 05:38 RBC (4.30-5.90) m/uL Hgb (13.0-17.5) gm/dL Hct (39.0-53.0) % MCHC (31.0-37.0) g/dL RDW (11.5-15.5) % Lymphocytes # (1.0-4.8) k/uL Sodium (137-145) mmol/L Chloride (98-107) mmol/L Carbon Dioxide (22-30) mmol/L BUN (9-20) mg/dL Creatinine (0.66-1.25) mg/dL Glucose (74-99) mg/dL POC Glucose (mg/dL) 287 H 142 H 137 H (70-110) mg/dL Magnesium (1.6-2.3) mg/dL 03/19/23 03/19/23 03/19/23 Range/Units 07:40 07:40 11:34 RBC 2.57 L (4.30-5.90) m/uL Hgb 7.7 L (13.0-17.5) gm/dL Hct 25.2 L (39.0-53.0) % MCHC 30.3 L (31.0-37.0) g/dL RDW 18.2 H (11.5-15.5) % Lymphocytes # 0.5 L (1.0-4.8) k/uL Sodium 135 L (137-145) mmol/L Chloride 96 L (98-107) mmol/L Carbon Dioxide 31 H (22-30) mmol/L BUN 58 H (9-20) mg/dL Creatinine 1.83 H (0.66-1.25) mg/dL Glucose 116 H (74-99) mg/dL POC Glucose (mg/dL) 161 H (70-110) mg/dL Magnesium 2.5 H (1.6-2.3) mg/dL Assessment and Plan Assessment: Acute on chronic systolic heart failure with an ejection fraction of 40-45%. Acute on chronic hypoxemic respiratory failure. Chronic obstructive pulmonary disease. Hyperlipidemia. Stage III chronic kidney disease. Diabetes mellitus. Paroxysmal atrial fibrillation. CAD with previous bypass grafting, and stent placement. History of mitral valve repair. Hearing disorder. Previous history of tobacco use. Hypertension. Hyperlipidemia. Plan: Plan dated 03/18/2023. Patient is seen today in room 368. He's currently on 2 L. Labs, x-rays, and medications are reviewed. The patient is feeling much improved, and is hoping to be discharged home soon. To follow make recommendations along the way. Prognosis is certainly guarded. Plan dated 03/19/2023. The patient is seen today in room 368. He remains on 2 L. The patient is not receiving any IV fluids overall, the patient's condition has greatly improved. His chest x-ray from March 18 is certainly improved, from the standpoint of v olume status. Labs, x-rays, and medications are reviewed. We will continue to follow the patient, and make recommendations along the way. Prognosis is certainly guarded. He will follow-up my partner, after discharge. Time with Patient: Less than 30
--- NOTE | 2023-03-19 14:01 | P.PN ---
Subjective HISTORY OF PRESENT ILLNESS: This is a 73-year-old male who follows in the office with Dr. Man. Patient presented to the hospital with shortness of breath and increased swelling. Patient is being treated for acute on chronic heart failure. He currently is on IV diuretics. Patient currently denies chest pain or pressure. He denies shortness of breath. He continues to have mild lower extremity edema. Vital signs are stable. Echocardiogram completed revealing ejection fraction 30-35%, moderate left ear, severe TR, and pulmonary hypertension 03/19/2023 Patient examined this morning. He is sitting up in the chair. He denies any chest pain or pressure. He currently denies any shortness of breath. His lower extremity edema has significantly improved. He remains on oral diuretics. Vital signs are stable. PHYSICAL EXAM: VITAL SIGNS: Reviewed. GENERAL: Well-developed in no acute distress. NECK: Supple. No JVD or thyromegaly LUNGS: Respirations even and unlabored. Lungs essentially clear to auscultation bilaterally. HEART: Regular rate and rhythm. S1 and S2 heard. Systolic murmur noted. EXTREMITIES: Normal range of motion. No clubbing or cyanosis. Peripheral pulses intact. 1+ bilateral lower extremity edema ASSESSMENT: Acute on chronic systolic heart failure Persistent atrial fibrillation not on anticoagulation due to bleeding Cardiomyopathy COPD Bilateral pleural effusions with left-sided Pleurx, removed on 03/13/2023 Coronary artery disease with previous CABG Valvular heart disease status post mitral valve repair Hypertension Hyperlipidemia Acute kidney injury and chronic kidney disease Chronic anemia PLAN: Continue current cardiac medications Continue oral diuretics Patient is currently stable from a cardiac perspective Further recommendations pending patient's course Nurse practitioner note has been reviewed by physician. Signing provider agrees with the documented findings, assessment, and plan of care. Objective - Vital Signs Vital signs: Vital Signs Temp 97.7 F 03/19/23 08:00 Pulse 88 03/19/23 11:34 Resp 18 03/19/23 08:00 BP 101/60 03/19/23 08:00 Pulse Ox 93 L 03/19/23 08:09 FiO2 Intake & Output 03/18/23 03/19/23 03/19/23 18:59 06:59 18:59 Intake Total 240 118 Output Total 2900 350 575 Balance -2900 110 -011 Weight 71.4 kg Intake: Oral 240 118 Output: Urine 2900 350 575 Other: Voiding Method Urinal Urinal Urinal # Voids 1 1 # Bowel Movements 1 - Labs CBC & Chem 7: 03/19/23 07:40 03/19/23 07:40 Labs: Abnormal Lab Results - Last 24 Hours (Table) 03/18/23 03/18/23 03/19/23 Range/Units 16:55 19:49 05:38 RBC (4.30-5.90) m/uL Hgb (13.0-17.5) gm/dL Hct (39.0-53.0) % MCHC (31.0-37.0) g/dL RDW (11.5-15.5) % Lymphocytes # (1.0-4.8) k/uL Sodium (137-145) mmol/L Chloride (98-107) mmol/L Carbon Dioxide (22-30) mmol/L BUN (9-20) mg/dL Creatinine (0.66-1.25) mg/dL Glucose (74-99) mg/dL POC Glucose (mg/dL) 287 H 142 H 137 H (70-110) mg/dL Magnesium (1.6-2.3) mg/dL 03/19/23 03/19/23 03/19/23 Range/Units 07:40 07:40 11:34 RBC 2.57 L (4.30-5.90) m/uL Hgb 7.7 L (13.0-17.5) gm/dL Hct 25.2 L (39.0-53.0) % MCHC 30.3 L (31.0-37.0) g/dL RDW 18.2 H (11.5-15.5) % Lymphocytes # 0.5 L (1.0-4.8) k/uL Sodium 135 L (137-145) mmol/L Chloride 96 L (98-107) mmol/L Carbon Dioxide 31 H (22-30) mmol/L BUN 58 H (9-20) mg/dL Creatinine 1.83 H (0.66-1.25) mg/dL Glucose 116 H (74-99) mg/dL POC Glucose (mg/dL) 161 H (70-110) mg/dL Magnesium 2.5 H (1.6-2.3) mg/dL
[2023-03-19 14:14] VITALS: PULSE 82
--- NOTE | 2023-03-19 19:58 | P.DS ---
Providers Date of admission: 03/12/23 14:37 Expected date of discharge: 03/19/23 Attending physician: Beto Bynum Consults: 03/12/23 14:37 Consult Physician Routine Consulting Provider: Hai Raines Consult Reason/Comments: respiratory insuff, pleurx catheter placement Do you want consulting provider notified?: Yes Consult Physician Urgent Consulting Provider: [facility] Consult Reason/Comments: aechf Do you want consulting provider notified?: Yes Primary care physician: Clyde [facility] Hospital Course: Chief Complaint: Short of breath edema This is a pleasant 73-year-old patient who follows with Dr. Leal. Extensive medical history including atrial fibrillation, CAD, COPD, diabetes, heart of feeding, hypertension, hyperlipidemia, previous coronary bypass, mitral valve repair, EF 40-45%, Patient now presents with worsening short of breath. For at least 3 weeks. Edema is gone up to the lower abdomen. Scrotum is swollen. Decreased appetite. Nausea. No fever no chills. No chest pain. March 13: Admitted with CHF exacerbation. Remains on IV Lasix drip 10 mg hour. About 2000 mL negative fluid balance. Significant edema. at the bedside. Breathing a bit better. Today patient changed over to Bumex 1 mg every 12 by cardiology. March 14: There is on IV Bumex. 1 mg every 12. Negative fluid balance. Still has significant edema. Upper the thighs. Up in a chair. Oral intake better. March 15: Up in a chair. Remains in negative fluid balance. Bumex 1 mg IV every 12. Edema up to the thighs still present though better than before. Discussed with patient and . March 16: Remains on IV Bumex. Over 6 L in negative fluid balance since admission. Edema still present. Breathing better. Tolerating diet. March 17: Continues to be negative fluid balance. IV Bumex 1 mg every 12. Edema present. Some in the thigh. Oral intake good. Had a BM. Discussed with patient and at the bedside. March 18: Seen by nephrology this morning. Changed over to oral Bumex. Liver ultrasound ordered. Discussed with patient and . Increase activity. March 19: Doing well. Breathing stable. Decreased edema. Discussed with patient and at length. Patient has multiple follow-up consultants. Discussed. Labs will be drawn next week. Discussion and discharge planning more than 35 minutes Social history: Patient smoked for 55 years, stopped last year. No alcohol. Does use CBD for back pain. Physical examination: VITAL SIGNS: 97.7, 82, 18, 101/60, 96% room air GENERAL: Up in a chair, EYES: Pupils equal. Conjunctiva normal. HEENT: External appearance of nose and ears normal, oral cavity grossly normal. NECK: JVD raised; masses not palpable. HEART: First and second heart sounds are normal; edema present LUNGS: Respiratory rate normal; decreased breath sounds. ABDOMEN: Soft, nontender, liver spleen not palpable, no masses palpable. Edema present PSYCH: Alert and oriented x3; mood and affect normal. MUSCULOSKELETAL:No Clubbing/cyanosis;muscles-grossly intact INVESTIGATIONS, reviewed in the clinical context: March 19: White count 7.5 hemoglobin 7.7 platelets 216 potassium 3.5 BUN 58 creatinine 1.83 March 12: White count 8.4 hemoglobin 7.7 platelets 206 sodium 137 potassium 4.5 BUN 55 creatinine 1.7 total bilirubin 1.4 AST 188 ALT 103 albumin 3.1 pro BNP 40854 Troponin I 0.034 EKG tracing personally reviewed by me-normal sinus rhythm. Some ST-T wave changes. Chest x-ray film personally reviewed by me-cardiomegaly. Pulmonary edema. B12 1113. Folate 27.8 Assessment and plan: -Acute on chronic congestive heart exacerbation. Systolic dysfunction EF known to be 40-45%: Improving Bumex 1 mg po every 12. Zaroxolyn 2.5 mg a day Aldactone 50 mg a day Fluid restriction 1500 mL day. Follow labs closely Cardiology following. 2-D echo-pending. -Metabolic alkalosis from diuresis Diamox 250 mg twice a day-discontinued -COPD in a previous smoker DuoNeb 4 times a day. Symbicort 2 puffs twice a day -Hyperlipidemia Lipitor 80 mg daily at bedtime-hold Lipitor for now because of elevated LFTs -CK D STAGE III suspect nephrosclerosis Follow renal function closely -Diabetes mellitus type 2 on oral hypoglycemic Actos 15 mg a day. Follow Accu-Cheks. Victoza -Paroxysmal atrial fibrillation, currently in sinus rhythm -CAD with a prior history of stent, coronary bypass Aspirin. Lipitor -Hard of hearing -Normocytic anemia B12, folate-both normal -Full code Disposition: Home Labs: CMP, magnesium 5 days Plan - Discharge Summary Discharge Rx Participant: No New Discharge Prescriptions: New Acetaminophen Tab [Tylenol] 650 mg PO Q6HR PRN tab PRN Reason: Mild Pain Or Fever > 100.5 Spironolactone [Aldactone] 50 mg PO DAILY #30 tab Bumetanide [BUMEX] 1 mg PO BID@0900,1600 #60 tab Continue Vit C/E/Zn/Coppr/Lutein/Zeaxan [Preservision Areds 2 Softgel] 1 cap PO BID Aspirin 81 mg PO DAILY Liraglutide [Victoza 3-Casey] 1.8 mg SQ DAILY Pioglitazone [Actos] 15 mg PO DAILY Ipratropium/Albuter 20-100Mcg [Combivent Respimat 20-100Mcg Inhaler] 1 puff INHALATION RT-Q6H PRN PRN Reason: Shortness Of Breath Cholecalciferol (Vitamin D3) [Vitamin D3] 1,250 mcg PO DAILY Atorvastatin [Lipitor] 80 mg PO HS Albuterol Nebulized [Ventolin Nebulized (Accuneb)] 1.25 mg INHALATION RT-QID Fluticasone/Umeclidin/Vilanter [Trelegy Ellipta 100-62.5-25] 1 puff INHALATION RT-HS@2100 Multivitamins, Thera [Multivitamin (formulary)] 1 tab PO DAILY HYDROcodone/APAP 10-325MG [Meredith 10-325] 1 tab PO BID PRN PRN Reason: Pain Changed Metoprolol Tartrate [Lopressor] 12.5 mg PO BID #0 Discontinued Acetaminophen Tab [Tylenol Tab] 1,000 mg PO Q6HR PRN PRN Reason: Pain Furosemide [Lasix] 40 mg PO BID 30 Days #60 tablet Discharge Medication List Vit C/E/Zn/Coppr/Lutein/Zeaxan [Preservision Areds 2 Softgel] 1 cap PO BID 02/19/17 [History] Fluticasone/Umeclidin/Vilanter [Trelegy Ellipta 100-62.5-25] 1 puff INHALATION RT-HS@2100 11/09/21 [History] Aspirin 81 mg PO DAILY 05/19/22 [History] Liraglutide [Victoza 3-Casey] 1.8 mg SQ DAILY 10/17/22 [History] Atorvastatin [Lipitor] 80 mg PO HS 11/07/22 [History] Cholecalciferol (Vitamin D3) [Vitamin D3] 1,250 mcg PO DAILY 11/07/22 [History] Ipratropium/Albuter 20-100Mcg [Combivent Respimat 20-100Mcg Inhaler] 1 puff INHALATION RT-Q6H PRN 11/07/22 [History] Multivitamins, Thera [Multivitamin (formulary)] 1 tab PO DAILY 11/07/22 [History] Pioglitazone [Actos] 15 mg PO DAILY 11/07/22 [History] Albuterol Nebulized [Ventolin Nebulized (Accuneb)] 1.25 mg INHALATION RT-QID 03/12/23 [History] HYDROcodone/APAP 10-325MG [Meredith 10-325] 1 tab PO BID PRN 03/12/23 [History] Acetaminophen Tab [Tylenol] 650 mg PO Q6HR PRN tab 03/19/23 [Rx] Bumetanide [BUMEX] 1 mg PO BID@0900,1600 #60 tab 03/19/23 [Rx] Metoprolol Tartrate [Lopressor] 12.5 mg PO BID #0 03/19/23 [Rx] Spironolactone [Aldactone] 50 mg PO DAILY #30 tab 03/19/23 [Rx] Follow up Appointment(s)/Referral(s): Laura Aguilar MD [STAFF PHYSICIAN] - 04/09/23 8:45 am Darlin Boateng MD [STAFF PHYSICIAN] - 04/03/23 9:40 am Adamaris Man MD [STAFF PHYSICIAN] - 1 Week (Patient already has appointment on 03-25) Clyde Leal DO [Primary Care Provider] - 1-2 days (Office will call you to set up your follow-up appointment.) Faviola Medina MD [STAFF PHYSICIAN] - 10 Days (Could not get through to office, please call to set up a sooner follow-up appointment.) Patient Instructions/Handouts: Heart Failure (DC) Discharge Disposition: HOME SELF-CARE
[2023-03-20] MEDS ORDERED: POTASSIUM CHLORIDE ER 20 MEQ TAB.ER PO SCH (09:00)
== END 2023-03-19 15:08 | disposition home or self-care (01) | DRG 291 ==
LOC: EC 10:35 → 3SCARD 14:37
PROVIDERS: ADMIT Hospitalist; ATTEND Hospitalist
PROC: 0WPBX0Z Removal of Drainage Device from Left Pleural Cavity, External Approach (ICD-10-PCS; principal; 2023-03-13)
DX: I13.0 Hypertensive heart and chronic kidney disease with heart failure and stage 1 through stage 4 chronic kidney disease, or unspecified chronic kidney disease (principal); I50.23 Acute on chronic systolic (congestive) heart failure; N17.0 Acute kidney failure with tubular necrosis; J96.21 Acute and chronic respiratory failure with hypoxia; E87.3 Alkalosis; I48.19 Other persistent atrial fibrillation; I27.20 Pulmonary hypertension, unspecified; D63.1 Anemia in chronic kidney disease; E11.22 Type 2 diabetes mellitus with diabetic chronic kidney disease; I42.9 Cardiomyopathy, unspecified; J44.9 Chronic obstructive pulmonary disease, unspecified; N18.32 Chronic kidney disease, stage 3b; N50.89 Other specified disorders of the male genital organs; K59.00 Constipation, unspecified; I25.10 Atherosclerotic heart disease of native coronary artery without angina pectoris; E61.1 Iron deficiency; I08.1 Rheumatic disorders of both mitral and tricuspid valves; T50.1X5A Adverse effect of loop [high-ceiling] diuretics, initial encounter; E87.6 Hypokalemia; I25.2 Old myocardial infarction; G47.00 Insomnia, unspecified; E78.5 Hyperlipidemia, unspecified; M54.9 Dorsalgia, unspecified; F41.9 Anxiety disorder, unspecified; R32 Unspecified urinary incontinence; H91.90 Unspecified hearing loss, unspecified ear; Z79.82 Long term (current) use of aspirin; Z79.85 Long-term (current) use of injectable non-insulin antidiabetic drugs; Z79.84 Long term (current) use of oral hypoglycemic drugs; Z79.51 Long term (current) use of inhaled steroids; Z79.899 Other long term (current) drug therapy; Z96.653 Presence of artificial knee joint, bilateral; Z95.5 Presence of coronary angioplasty implant and graft; Z95.1 Presence of aortocoronary bypass graft; Z87.891 Personal history of nicotine dependence; Z88.8 Allergy status to other drugs, medicaments and biological substances
CPT/HCPCS: 36415; 71045; 71046; 76705; 76770; 80048; 80053; 81001; 82272; 82607; 82746; 83540; 83550; 83605; 83735; 83880; 84484; 85025; 85610; 85730; 93005; 93306; 94640; 94760; 96365; 96366; 96375; 99285

== ENCOUNTER 2023-12-21 06:34 | Inpatient (IN) | payer MEDICARE, OTHER ==
--- NOTE | 2023-12-21 06:58 | ED ---
SOB HPI - General Chief Complaint: Shortness of Breath Stated Complaint: DONELL Time Seen by Provider: 12/21/23 06:52 Source: patient, EMS, RN notes reviewed Mode of arrival: EMS Limitations: no limitations - History of Present Illness Initial Comments: 73-year-old male with a past medical history significant of atrial fibrillation, COPD, diabetes, open heart surgery, renal disease, iron deficiency anemia, and hypertension presented to ER via EMS with a chief complaint of shortness of breath. Patient states he started to experience shortness of breath last night with mild chest discomfort. He describes it as a "pain". He states the chest discomfort has since resolved. He does report a history of congestive heart failure. He does not normally wear oxygen at home. He denies any fevers, cough, congestion. He does state he tried 3 breathing treatments at home with no improvement of her symptoms which prompted him to call EMS. EMS states they found patient satting 84% on room air. He did receive 1 breathing treatment by EMS. He denies any abdominal pain, constipation/diarrhea, urinary complaints or peripheral edema. - Related Data Home Medications Medication Instructions Recorded Confirmed Fluticasone/Umeclidin/Vilanter 1 puff INHALATION RT-HS@2100 11/09/21 07/15/23 [Trelegy Ellipta 100-62.5-25] Aspirin 81 mg PO DAILY 05/19/22 07/15/23 Liraglutide [Victoza 3-Casey] 1.8 mg SQ DAILY 10/17/22 07/15/23 Atorvastatin [Lipitor] 80 mg PO HS 11/07/22 07/15/23 Cholecalciferol (Vitamin D3) 1,250 mcg PO DAILY 11/07/22 07/15/23 [Vitamin D3 (1250 Mcg = 50,000 Iu)] Ipratropium/Albuter 20-100Mcg 1 puff INHALATION RT-Q6H PRN 11/07/22 07/15/23 [Combivent Respimat 20-100Mcg Inhaler] Albuterol Nebulized [Ventolin 1.25 mg INHALATION RT-QID 03/12/23 07/15/23 Nebulized (Accuneb)] allopurinoL 100 mg PO DAILY 07/02/23 07/15/23 Previous Rx's Medication Instructions Recorded Acetaminophen Tab [Tylenol] 650 mg PO Q6HR PRN tab 03/19/23 Bumetanide [BUMEX] 1 mg PO BID@0900,1600 #60 tab 03/19/23 Metoprolol Tartrate [Lopressor] 12.5 mg PO BID #0 03/19/23 Spironolactone [Aldactone] 50 mg PO DAILY #30 tab 03/19/23 Allergies Allergy/AdvReac Type Severity Reaction Status Date / Time protamine Allergy Anaphylaxis Verified 12/21/23 06:41 apixaban [From Eliquis] AdvReac "stomach Verified 12/21/23 06:41 bleeds" dapagliflozin [From Farxiga] AdvReac Itching Verified 12/21/23 06:41 empagliflozin AdvReac Itching Verified 12/21/23 06:41 [From Jardiance] Review of Systems ROS Statement: Those systems with pertinent positive or pertinent negative responses have been documented in the HPI. ROS Other: All systems not noted in ROS Statement are negative. Past Medical History Past Medical History: Atrial Fibrillation, Coronary Artery Disease (CAD), COPD, Diabetes Mellitus, GI Bleed, Hearing Disorder / Deafness, Hyperlipidemia, Hypertension, Myocardial Infarction (CO), Renal Disease Additional Past Medical History / Comment(s): Previous bypass surgery, previous repair of the mitral valve, comp to get postoperative course requiring dialysis for renal failure and the patient also developed GI bleed requiring blood transfusions recent significant developed a chronic loculated left-sided pleural effusion. Other comorbidities include COPD, chronic systolic heart failure with an ejection fraction 4045%, hypertension, hyperlipidemia, paroxysmal A. fib Last Myocardial Infarction Date:: 11/2021 History of Any Multi-Drug Resistant Organisms: None Reported Past Surgical History: Back Surgery, Heart Catheterization With Stent, Joint Replacement, Orthopedic Surgery Additional Past Surgical History / Comment(s): BILATERAL KNEE REPLACEMENTS, BILATERAL SHOULDER SURGERY, ONE CARDIAC STENT, back surgery X2 (lumbar decompression and fusion), BACK INJECTIONS, COLONOSCOPY, BILATERAL CATARACTS REMOVED WITH LENS IMPLANTS, Cardioversion. ganglion cyst rt wrist removed Past Anesthesia/Blood Transfusion Reactions: No Reported Reaction Additional Past Anesthesia/Blood Transfusion Reaction / Comment(s): no issues with blood transfusions Date of Last Stent Placement:: 2000 Past Psychological History: No Psychological Hx Reported Smoking Status: Former smoker - Past Family History Father Family Medical History: No Reported History Mother Family Medical History: No Reported History General Exam General appearance: alert, in no apparent distress Respiratory exam: Present: other (Decreased breath sounds bilaterally) Cardiovascular Exam: Present: regular rate, normal rhythm, normal heart sounds. Absent: systolic murmur, diastolic murmur, rubs, gallop, clicks GI/Abdominal exam: Present: soft, normal bowel sounds. Absent: distended, tenderness, guarding, rebound, rigid Extremities exam: Present: normal inspection, full ROM, normal capillary refill. Absent: tenderness, pedal edema, joint swelling, calf tenderness Back exam: Present: normal inspection Psychiatric exam: Present: normal affect, normal mood Course Vital Signs 12/21/23 06:38 Temperature 100.3 F H Pulse Rate 91 Respiratory 20 Rate Blood Pressure 130/66 O2 Sat by Pulse 93 L Oximetry - Reevaluation(s) Reevaluation #1: 12/21/23 07:43 Met sepsis criteria at 07:40. Antibiotics ordered at 0743. 12/21/23 08:18 Case discussed with [facility], Dr. Weston, accepts admission Medical Decision Making - Medical Decision Making Was pt. sent in by a medical professional or institution (, PA, HEATING UNIT INSTALLER, urgent care, hospital, or correction...) When possible be specific @ -No Did you speak to anyone other than the patient for history (EMS, parent, family, police, friend...)? What history was obtained from this source @ -EMS stating patient was found with oxygen saturations 84% on room air. Did you review nursing and triage notes (agree or disagree)? Why? @ -I reviewed and agree with nursing and triage notes Were old charts reviewed (outside hosp., previous admission, EMS record, old EKG, old radiological studies, urgent care reports/EKG's, correction records)? Report findings @ -Chest xray image for 08/02/23. Differential Diagnosis (chest pain, altered mental status, abdominal pain women, abdominal pain men, vaginal bleeding, weakness, fever, dyspnea, syncope, headache, dizziness, GI bleed, back pain, seizure, CVA, palpatations, mental health, musculoskeletal)? @ -Differential Dyspnea: Coronary syndrome, arrhythmia, tamponade, asthma, COPD, pulmonary embolism, pneumonia, pneumothorax, pulmonary effusion, anaphylaxis, diabetic ketoacidosis, flailed chest, pulmonary contusion, diaphragmatic rupture, anemia, neuromuscular, this is not meant to be an all- inclusive list. EKG interpreted by me (3pts min.). @ -As above X-rays interpreted by me (1pt min.). @ -Chest x-ray interpreted by me significant for airspace opacities concerning of pneumonia. CT interpreted by me (1pt min.). @ -None done U/S interpreted by me (1pt. min.). @ -None done What testing was considered but not performed or refused? (CT, X-rays, U/S, labs)? Why? @ -None What meds were considered but not given or refused? Why? @ -None Did you discuss the management of the patient with other professionals (professionals i.e. , PA, HEATING UNIT INSTALLER, lab, RT, psych nurse, social work job titles, tailings dam laborer, teacher, field crop technical officer, case briefer)? Give summary @ -Yes, case discussed with Dr. Weston [facility] who accepts admission. Was smoking cessation discussed for >3mins.? @ -No Was critical care preformed (if so, how long)? @ -No Were there social determinants of health that impacted care today? How? (Homelessness, low income, unemployed, alcoholism, drug addiction, transportation, low edu. Level, literacy, decrease access to med. care, skilled nursing, rehab)? @ -No Was there de-escalation of care discussed even if they declined (Discuss DNR or withdrawal of care, Hospice)? DNR status @ -No What co-morbidities impacted this encounter? (DM, HTN, Smoking, COPD, CAD, Cancer, CVA, ARF, Chemo, Hep., AIDS, mental health diagnosis, sleep apnea, morbid obesity)? @ -COPD, renal disease, atrial fibrillation not currently on blood thinner, diabetes Was patient admitted / discharged? Hospital course, mention meds given and route, prescriptions, significant lab abnormalities, going to OR and other pertinent info. @ -Admitted. 73-year-old male presented to ER with chief complaint shortness of breath. Vitals upon arrival remarkable for temperature of 100.3. History and physical exam completed. Laboratory studies obtained remarkable for white blood cell count of 16 with a left shift. Chronic anemia hemoglobin 10 which appears to be at baseline. Chronic kidney disease GFR 36 with an JENIFFER BUN 98, creatinine 1.83. Chest x-ray concerning of pneumonia. Viral swabs negative. Blood cultures obtained. Patient started on IV Rocephin and p.o. azithromycin. Patient met sepsis criteria at 07 40. Antibiotics ordered at 743. Admission considered for sepsis pneumonia. ID on consult. Case discussed with [facility], Dr. Weston who accepts admission. Patient agreeable for admission at this time. Patient admitted in stable condition for further treatment. Case discussed with ED attending, Dr. Gilmore. Undiagnosed new problem with uncertain prognosis? @ -No Drug Therapy requiring intensive monitoring for toxicity (Heparin, Nitro, Insulin, Cardizem)? @ -No Were any procedures done? @ -No Diagnosis/symptom? @ -Sepsis/pneumonia Acute, or Chronic, or Acute on Chronic? @ -Acute Uncomplicated (without systemic symptoms) or Complicated (systemic symptoms)? @ -Complicated Side effects of treatment? @ -No Exacerbation, Progression, or Severe Exacerbation? @ -No Poses a threat to life or bodily function? How? (Chest pain, USA, CO, pneumonia, PE, COPD, DKA, ARF, appy, cholecystitis, CVA, Diverticulitis, Homicidal, Suicidal, threat to staff... and all critical care pts) @ -Yes, sepsis is life threatening. - Lab Data Result diagrams: 12/21/23 07:09 12/21/23 07:09 Lab Results 12/21/23 12/21/23 12/21/23 Range/Units 07:09 07:09 07:09 WBC 16.6 H (3.8-10.6) k/uL RBC 3.64 L (4.30-5.90) m/uL Hgb 10.9 L (13.0-17.5) gm/dL Hct 34.0 L (39.0-53.0) % MCV 93.2 (80.0-100.0) fL MCH 29.8 (25.0-35.0) pg MCHC 31.9 (31.0-37.0) g/dL RDW 15.6 H (11.5-15.5) % Plt Count 140 L (150-450) k/uL MPV 8.7 Neutrophils % 94 % Lymphocytes % 1 % Monocytes % 4 % Eosinophils % 1 % Basophils % 0 % Neutrophils # 15.5 H (1.3-7.7) k/uL Lymphocytes # 0.2 L (1.0-4.8) k/uL Monocytes # 0.6 (0-1.0) k/uL Eosinophils # 0.2 (0-0.7) k/uL Basophils # 0.0 (0-0.2) k/uL Hypochromasia Slight PT 11.6 (10.0-12.5) sec INR 1.1 (<1.2) APTT 22.1 (22.0-30.0) sec Sodium 135 L (137-145) mmol/L Potassium 4.4 (3.5-5.1) mmol/L Chloride 102 (98-107) mmol/L Carbon Dioxide 19 L (22-30) mmol/L Anion Gap 14 mmol/L BUN 98 H (9-20) mg/dL Creatinine 1.83 H (0.66-1.25) mg/dL Est GFR (CKD-EPI)AfAm 41 (>60 ml/min/1.73 sqM) Est GFR (CKD-EPI)NonAf 36 (>60 ml/min/1.73 sqM) Glucose 230 H (74-99) mg/dL Plasma Lactic Acid Nahum (0.7-2.0) mmol/L Calcium 9.5 (8.4-10.2) mg/dL Magnesium 2.0 (1.6-2.3) mg/dL Total Bilirubin 1.6 H (0.2-1.3) mg/dL AST 43 (17-59) U/L ALT 25 (4-49) U/L Alkaline Phosphatase 101 (38-126) U/L Troponin I (0.000-0.034) ng/mL Total Protein 7.3 (6.3-8.2) g/dL Albumin 4.7 (3.5-5.0) g/dL Influenza Type A (PCR) (Not Detectd) Influenza Type B (PCR) (Not Detectd) RSV (PCR) (Not Detectd) SARS-CoV-2 (PCR) (Not Detectd) 12/21/23 12/21/23 12/21/23 Range/Units 07:09 07:09 07:09 WBC (3.8-10.6) k/uL RBC (4.30-5.90) m/uL Hgb (13.0-17.5) gm/dL Hct (39.0-53.0) % MCV (80.0-100.0) fL MCH (25.0-35.0) pg MCHC (31.0-37.0) g/dL RDW (11.5-15.5) % Plt Count (150-450) k/uL MPV Neutrophils % % Lymphocytes % % Monocytes % % Eosinophils % % Basophils % % Neutrophils # (1.3-7.7) k/uL Lymphocytes # (1.0-4.8) k/uL Monocytes # (0-1.0) k/uL Eosinophils # (0-0.7) k/uL Basophils # (0-0.2) k/uL Hypochromasia PT (10.0-12.5) sec INR (<1.2) APTT (22.0-30.0) sec Sodium (137-145) mmol/L Potassium (3.5-5.1) mmol/L Chloride (98-107) mmol/L Carbon Dioxide (22-30) mmol/L Anion Gap mmol/L BUN (9-20) mg/dL Creatinine (0.66-1.25) mg/dL Est GFR (CKD-EPI)AfAm (>60 ml/min/1.73 sqM) Est GFR (CKD-EPI)NonAf (>60 ml/min/1.73 sqM) Glucose (74-99) mg/dL Plasma Lactic Acid Nahum 1.6 (0.7-2.0) mmol/L Calcium (8.4-10.2) mg/dL Magnesium (1.6-2.3) mg/dL Total Bilirubin (0.2-1.3) mg/dL AST (17-59) U/L ALT (4-49) U/L Alkaline Phosphatase (38-126) U/L Troponin I 0.026 (0.000-0.034) ng/mL Total Protein (6.3-8.2) g/dL Albumin (3.5-5.0) g/dL Influenza Type A (PCR) Not Detected (Not Detectd) Influenza Type B (PCR) Not Detected (Not Detectd) RSV (PCR) Not Detected (Not Detectd) SARS-CoV-2 (PCR) Not Detected (Not Detectd) - EKG Data -: EKG Interpreted by Me EKG Comments: EKG taken at 6: 51 showing a normal sinus rhythm with a first-degree AV block. No acute ST segment or T wave abnormalities. Normal axis. Ventricular rate 94, VA interval 263, QRS duration 113, QT/QTc 373/425. - Radiology Data Radiology results: report reviewed, image reviewed Disposition Clinical Impression: Sepsis, Pneumonia Disposition: ADMITTED IP TO THIS HOSP Condition: Stable Referrals: Clyde Leal DO [Primary Care Provider] - 1-2 days Time of Disposition: 07:55
[2023-12-21 07:25] LABS: Basophils % (A) 0 %; Eosinophils # (A) 0.2 k/uL (0-0.7); Eosinophils % (A) 1 %; HGB 10.9 gm/dL (13.0-17.5); Hypochromasia Slight; Lymphocytes # (A) 0.2 k/uL (1.0-4.8); Lymphocytes % (A) 1 %; MCH 29.8 pg (25.0-35.0); MCHC 31.9 g/dL (31.0-37.0); MCV 93.2 fL (80.0-100.0); Mean Platelet Volume 8.7; Monocytes # (A) 0.6 k/uL (0-1.0); Monocytes % (A) 4 %; Neutrophils # (A) 15.5 k/uL (1.3-7.7); Neutrophils % (A) 94 %; Platelet Count 140 k/uL (150-450); RBC 3.64 m/uL (4.30-5.90); RDW 15.6 % (11.5-15.5); WBC 16.6 k/uL (3.8-10.6)
[2023-12-21 07:36] LABS: INR 1.1 (<1.2); Partial Thromboplastin Time 22.1 sec (22.0-30.0); Prothrombin Time 11.6 sec (10.0-12.5)
[2023-12-21 07:38] LABS: ALT 25 U/L (4-49); AST 43 U/L (17-59); African American GFR (CKD) 41 (>60 ml/min/1.73 sqM); Albumin 4.7 g/dL (3.5-5.0); Alkaline Phosphatase 101 U/L (38-126); Anion Gap 14 mmol/L; Blood Urea Nitrogen 98 mg/dL (9-20); Calcium 9.5 mg/dL (8.4-10.2); Carbon Dioxide 19 mmol/L (22-30); Chloride 102 mmol/L (98-107); Glucose 230 mg/dL (74-99); Non-African American GFR(CKD) 36 (>60 ml/min/1.73 sqM); Potassium 4.4 mmol/L (3.5-5.1); Sodium 135 mmol/L (137-145); Total Bilirubin 1.6 mg/dL (0.2-1.3); Total Protein 7.3 g/dL (6.3-8.2)
--- NOTE | 2023-12-21 07:40 | XR ---
EXAMINATION TYPE: XR chest 2V DATE OF EXAM: 12/21/2023 7:31 AM CLINICAL INDICATION:Male, 73 years old with history of difficulty breathing; [facility] COMPARISON: Chest radiographs from 03/18/2023 TECHNIQUE: XR chest 2V Frontal view of the chest. FINDINGS: Lungs/Pleura: Airspace opacities projecting over the lower lung on lateral view. There is no evidence of pleural effusion, focal consolidation, or pneumothorax. Pulmonary vascularity: Unremarkable. Heart/mediastinum: Cardiomediastinal silhouette is unremarkable. Musculoskeletal: No acute osseous pathology. Other findings: None IMPRESSION: Airspace opacities project over the lung correlate for pneumonia is best appreciated on lateral view.
[2023-12-21] MEDS: ACETAMINOPHEN TAB 325 MG TAB PO STA (07:47)
[2023-12-21] MEDS: AZITHROMYCIN 500 MG TAB PO STA (07:48)
[2023-12-21] MEDS: SODIUM CHLORIDE 0.9% 1,000 ML IV STA (07:54)
[2023-12-21] MEDS ORDERED: NALOXONE 0.4 MG/ML 1 ML VIAL IV PRN (08:06)
[2023-12-21] MEDS: HYDROmorphone 0.5 MG/0.5 ML SYRINGE IVP PRN (08:59)
[2023-12-21 11:34] LABS: Glucose,Whole Blood 232 mg/dL (70-110)
[2023-12-21] MEDS ORDERED: DEXTROSE 50% SYRINGE 50 ML IVP PRN ×2 (12:03)
[2023-12-21] MEDS: INSULIN ASPART (NovoLOG) 100 UNIT/ML VIAL SQ SCH (12:22)
[2023-12-21] MEDS: ACETAMINOPHEN TAB 325 MG TAB PO PRN ×2 (12:59→19:05)
[2023-12-21] MEDS: IOPAMIDOL CONTRAST (ORAL USE) VIAL PO PRN (14:38)
[2023-12-21] MEDS: PIPERACILLIN-TAZOBACTAM 3.375 GM in SODIUM CHLORIDE 0.9% 100 ML IVPB SCH (14:42)
--- NOTE | 2023-12-21 16:31 | CT ---
EXAMINATION TYPE: CT abdomen pelvis wo con CT DLP: 694.4 mGycm, Automated exposure control for dose reduction was used. DATE OF EXAM: 12/21/2023 4:21 PM COMPARISON: 02/05/2014 CLINICAL INDICATION:Male, 73 years old with history of Sepsis, abdominal distention; abd pain TECHNIQUE: Axial CT abdomen pelvis wo con;Sagittal and coronal reformats were created on a separate workstation. Contrast used: mL of , (none if empty) Oral contrast used: without Oral Contrast (none if empty) FINDINGS: LOWER CHEST: Left lower lung airspace consolidation with small left pleural effusion. ABDOMEN LIVER: Unremarkable GALLBLADDER AND BILE DUCTS: Unremarkable. PANCREAS: Unremarkable. SPLEEN: Unremarkable. ADRENAL GLANDS: Unremarkable. KIDNEYS AND URETERS: No evidence of hydronephrosis or renal calculus. The ureters are unremarkable. PELVIS BLADDER: Unremarkable REPRODUCTIVE: Unremarkable. ABDOMEN & PELVIS STOMACH AND BOWEL: No evidence of bowel obstruction. The appendix is normal. PERITONEUM/RETROPERITONEUM: No evidence of pneumoperitoneum or free fluid. VASCULATURE: Moderate atherosclerotic calcifications are present throughout the abdominal aorta and i ts branches. No evidence of aortic aneurysm. MUSCULOSKELETAL: No acute osseous abnormalities. Fixation changes in the lumbar spine appear intact. LYMPH NODES: No gross evidence for lymphadenopathy. SOFT TISSUE/ABDOMINAL WALL: Tiny fat-containing umbilical hernia. IMPRESSION: 1. Left lower lung airspace consolidation correlate for pneumonia. 2. Trace left pleural effusion. 3. No acute intra-abdominal process.
[2023-12-21 16:33] LABS: Glucose,Whole Blood 269 mg/dL (70-110)
[2023-12-21] MEDS ORDERED: MIDODRINE 5 MG TAB PO PRN (17:44)
--- NOTE | 2023-12-21 17:49 | P.HPIM ---
History of Present Illness H&P Date: 12/21/23 Chief Complaint: Difficulty breathing 73-year-old male with a past medical history significant of atrial fibrillation, COPD, diabetes, open heart surgery, renal disease, iron deficiency anemia, and hypertension presented to ER via EMS with a chief complaint of shortness of b reath. Patient states he started to experience shortness of breath last night with mild chest discomfort. He describes it as a "pain". He states the chest discomfort has since resolved. He does report a history of congestive heart failure. He does not normally wear oxygen at home. He denies any fevers, cough, congestion. He does state he tried 3 breathing treatments at home with no improvement of her symptoms which prompted him to call EMS. EMS states they found patient satting 84% on room air. He did receive 1 breathing treatment by EMS. He denies any abdominal pain, constipation/diarrhea, urinary complaints or peripheral edema. Chest x-ray is concerning for pneumonia; viral swabs are completed and are negative Blood work completed in ED reveals a WBC of 16.6, hemoglobin of 10.9 and platelet count of 140, sodium 135, potassium 4.4, BUNs/creatinine of 98/1.83 and blood glucose of 230 -Patient is placed on IV Rocephin and azithromycin in ED and is admitted to the hospital for further treatment Review of Systems REVIEW OF SYSTEMS: CONSTITUTIONAL: No fever, no malaise, no fatigue. HEENT: No recent visual problems or hearing problems. Denied any sore throat. CARDIOVASCULAR: No chest pain, orthopnea, PND, no palpitations, no syncope. PULMONARY: Complains of shortness of breath, no cough, no hemoptysis. GASTROINTESTINAL: No diarrhea, no nausea, no vomiting, no abdominal pain. NEUROLOGICAL: No headaches, no weakness, no numbness. HEMATOLOGICAL: Denies any bleeding or petechiae. GENITOURINARY: Denies any burning micturition, frequency, or urgency. MUSCULOSKELETAL/RHEUMATOLOGICAL: Denies any joint pain, swelling, or any muscle pain. ENDOCRINE: Denies any polyuria or polydipsia. The rest of the 14-point review of systems is negative. Past Medical History Past Medical History: Atrial Fibrillation, Coronary Artery Disease (CAD), COPD, Diabetes Mellitus, GI Bleed, Hearing Disorder / Deafness, Hyperlipidemia, Hypertension, Myocardial Infarction ([place]), Renal Disease Additional Past Medical History / Comment(s): Previous bypass surgery, previous repair of the mitral valve, comp to get postoperative course requiring dialysis for renal failure and the patient also developed GI bleed requiring blood transfusions recent significant developed a chronic loculated left-sided pleural effusion. Other comorbidities include COPD, chronic systolic heart failure with an ejection fraction 4045%, hypertension, hyperlipidemia, paroxysmal A. fib Last Myocardial Infarction Date:: 11/2021 History of Any Multi-Drug Resistant Organisms: None Reported Past Surgical History: Back Surgery, Heart Catheterization With Stent, Joint Replacement, Orthopedic Surgery Additional Past Surgical History / Comment(s): BILATERAL KNEE REPLACEMENTS, BILATERAL SHOULDER SURGERY, ONE CARDIAC STENT, back surgery X2 (lumbar decompression and fusion), BACK INJECTIONS, COLONOSCOPY, BILATERAL CATARACTS REMOVED WITH LENS IMPLANTS, Cardioversion. ganglion cyst rt wrist removed Past Anesthesia/Blood Transfusion Reactions: No Reported Reaction Additional Past Anesthesia/Blood Transfusion Reaction / Comment(s): no issues with blood transfusions Date of Last Stent Placement:: 2000 Past Psychological History: No Psychological Hx Reported Smoking Status: Former smoker Past Alcohol Use History: None Reported Additional Past Alcohol Use History / Comment(s): SMOKED 1 PPD SINCE AGE 17, now down to 1 cigarette per week. quit 04/2022 Past Drug Use History: None Reported Additional Drug Use History / Comment(s): CBD for back pain. No use 24 hrs prior to surgery. - Past Family History Father Family Medical History: No Reported History Mother Family Medical History: No Reported History Medications and Allergies Home Medications Medication Instructions Recorded Confirmed Type Fluticasone/Umeclidin/Vilanter 1 puff INHALATION RT-DAILY 11/09/21 12/21/23 History [Carlos Ellipta 100-62.5-25] Aspirin 81 mg PO DAILY 05/19/22 12/21/23 History Liraglutide [Victoza 3-Casey] 1.8 mg SQ DAILY 10/17/22 12/21/23 History Atorvastatin [Lipitor] 80 mg PO HS 11/07/22 12/21/23 History Ipratropium/Albuter 20-100Mcg 1 puff INHALATION RT-QID PRN 11/07/22 12/21/23 History [Combivent Respimat 20-100Mcg Inhaler] Acetaminophen Tab [Tylenol] 650 mg PO Q6HR PRN tab 03/19/23 12/21/23 Rx Metoprolol Tartrate [Lopressor] 12.5 mg PO BID #0 03/19/23 12/21/23 Rx Spironolactone [Aldactone] 50 mg PO DAILY #30 tab 03/19/23 12/21/23 Rx allopurinoL 100 mg PO DAILY 07/02/23 12/21/23 History ALPRAZolam [Xanax] 0.25 - 0.5 mg PO DAILY PRN 12/21/23 12/21/23 History Ammonium Lactate Cream [Lac-Hydrin 1 applic TOPICAL BID PRN 12/21/23 12/21/23 History 12% Cream] Bumetanide [BUMEX] 2 mg PO BID 12/21/23 12/21/23 History Clobetasol Propionate [Temovate 1 applic TOPICAL BID PRN 12/21/23 12/21/23 History 0.05% Oint] Docusate [Colace] 100 mg PO BID 12/21/23 12/21/23 History HYDROcodone/APAP 10-325MG [[place] 1 tab PO BID PRN 12/21/23 12/21/23 History 10-325] Midodrine [ProAmatine] 5 mg PO DAILY PRN 12/21/23 12/21/23 History Vit C/E/Zn/Coppr/Lutein/Zeaxan 1 cap PO BID 12/21/23 12/21/23 History [Preservision Areds 2 Softgel] hydrOXYzine HCL [Atarax] 10 mg PO DAILY 12/21/23 12/21/23 History Allergies Allergy/AdvReac Type Severity Reaction Status Date / Time protamine Allergy Anaphylaxis Verified 12/21/23 13:47 apixaban [From Eliquis] AdvReac "stomach Verified 12/21/23 13:47 bleeds" dapagliflozin [From Farxiga] AdvReac Itching Verified 12/21/23 13:47 empagliflozin AdvReac Itching Verified 12/21/23 13:47 [From Jardiance] Physical Exam Vitals: Vital Signs Temp Pulse Pulse Resp BP BP Pulse Ox 12/21/23 09:59 98.7 F 88 81 19 101/68 97/60 90 L 12/21/23 08:55 99.7 F H 89 18 106/58 94 L 12/21/23 06:38 100.3 F H 91 20 130/66 93 L Intake and Output 12/20/23 12/21/23 12/21/23 22:59 06:59 14:59 Other: # Voids 1 Weight 72.575 kg 72.575 kg General appearance: alert, in no apparent distress Respiratory exam: Present: other (Decreased breath sounds bilaterally) Cardiovascular Exam: Present: regular rate, normal rhythm, normal heart sounds. Absent: systolic murmur, diastolic murmur, rubs, gallop, clicks GI/Abdominal exam: Present: soft, normal bowel sounds. Absent: distended, tenderness, guarding, rebound, rigid Extremities exam: Present: normal inspection, full ROM, normal capillary refill. Absent: tenderness, pedal edema, joint swelling, calf tenderness Back exam: Present: normal inspection Psychiatric exam: Present: normal affect, normal mood Results CBC & Chem 7: 12/21/23 07:09 12/21/23 07:09 Labs: Abnormal Lab Results - Last 24 Hours (Table) 12/21/23 12/21/23 12/21/23 Range/Units 07:09 07:09 11:33 WBC 16.6 H (3.8-10.6) k/uL RBC 3.64 L (4.30-5.90) m/uL Hgb 10.9 L (13.0-17.5) gm/dL Hct 34.0 L (39.0-53.0) % RDW 15.6 H (11.5-15.5) % Plt Count 140 L (150-450) k/uL Neutrophils # 15.5 H (1.3-7.7) k/uL Lymphocytes # 0.2 L (1.0-4.8) k/uL Sodium 135 L (137-145) mmol/L Carbon Dioxide 19 L (22-30) mmol/L BUN 98 H (9-20) mg/dL Creatinine 1.83 H (0.66-1.25) mg/dL Glucose 230 H (74-99) mg/dL POC Glucose (mg/dL) 232 H (70-110) mg/dL Total Bilirubin 1.6 H (0.2-1.3) mg/dL Thrombosis Risk Factor Assmnt - Choose All That Apply Each Factor Represents 1 point: Abnormal pulmonary function (COPD) Each Risk Factor Represents 2 Points: Age 61-74 years Thrombosis Risk Factor Assessment Total Risk Factor Score: 3 Thrombosis Risk Factor Assessment Level: Moderate Risk Assessment and Plan Assessment: 1. Community-acquired pneumonial left lower lobe -Patient received IV Rocephin and azithromycin in ED; has been evaluated by ID and Rocephin has been discontinued and patient is placed on Zosyn 3.375 g IV every 8 hours -Patient has been pancultured; monitor CBC, CRP and procalcitonin 2. Left-sided pleural effusion; trace; likely parapneumonic; recommend repeat chest x-ray once clinically stable 3. Acute renal injury; patient is placed on slow IV fluid hydration with normal saline at rate of 75 cc an hour; we will hold off on home dose of Bumex; monitor strict JERICA's, daily weights, renal function electrolytes; avoid nephrotoxins and hypotension 4. Hyperbilirubinemia; we will repeat liver enzymes 5. Hyperglycemia/diabetes mellitus; patient takes Victoza which can be continued upon discharge; will monitor Accu-Cheks q. CHS with insulin sliding scale 6. Hypertension; metoprolol 12.5 mg twice daily; Aldactone 50 mg daily; Bumex 1 mg twice daily 4. COPD; not in exacerbation; continue with home inhaler therapy DVT prophylaxis; SCDs/subcu heparin CODE STATUS; full code
[2023-12-21 20:27] LABS: Glucose,Whole Blood 186 mg/dL (70-110)
[2023-12-21] MEDS: METOPROLOL TARTRATE 12.5 MG TAB PO SCH (20:36)
[2023-12-21] MEDS: ATORVASTATIN 80 MG TAB PO SCH (20:36)
[2023-12-21] MEDS: DOCUSATE 100 MG CAP PO SCH (20:36)
[2023-12-21] MEDS: HYDROcodone/APAP 10-325MG 1 EACH TAB PO PRN (20:42)
[2023-12-21] MEDS: SYMBICORT 80-4.5 MCG INHALER INHALATION SCH (20:56)
[2023-12-22 05:44] LABS: Glucose,Whole Blood 192 mg/dL (70-110)
--- NOTE | 2023-12-22 07:19 | P.CONS ---
History of Present Illness - Reason for Consult Consult date: 12/21/23 Sepsis, pneumonia Requesting physician: Ruth Serrano - Chief Complaint Shortness of breath and vomiting x 1 day - History of Present Illness Patient is a 73-year-old male with a past medical history significant for diabetes mellitus hypertension hyperlipidemia [place] atrial fibrillation coronary artery disease patient presenting to the hospital earlier this morning complaining of shortness of breath patient mention his symptoms started around 4 AM has been complaining of significant shortness of breath and did have some chest pain that has subsequently resolved patient did have a mild cough but not bringing up any sputum patient also complaining of multiple episodes of vomiting after his shortness of breath started but denies having any abdominal pain den ies any diarrhea or any constipation patient mention he tried 3 breathing treatment had denied any improvement in his symptoms EMS was called and on arrival to the EMS patient was noted to be hypoxic with O2 sats of 84% patient was brought into the hospital on arrival to the ER patient did have a fever of 100.3 F patient was significantly tachycardic hypotensive or hypoxic and no need for supplemental oxygen patient did have a white count of 16.6 with a left shift BUN/creatinine has been mildly elevated liver enzymes are normal influenza RSV COVID testing has been negative patient did have a chest x-ray airspace opacity present on lung correlate for pneumonia patient was given a dose of Bradley ephin and Zithromax in the ER has been admitted to the hospital infectious disease was consulted for further management of antibiotic therapy Review of Systems Positive point and negatives has been mentioned in the HPI, complete review of systems was performed and all other systems are negative Past Medical History Past Medical History: Atrial Fibrillation, Coronary Artery Disease (CAD), COPD, Diabetes Mellitus, GI Bleed, Hearing Disorder / Deafness, Hyperlipidemia, Hypertension, Myocardial Infarction ([place]), Renal Disease Additional Past Medical History / Comment(s): Previous bypass surgery, previous repair of the mitral valve, comp to get postoperative course requiring dialysis for renal failure and the patient also developed GI bleed requiring blood transfusions recent significant developed a chronic loculated left-sided pleural effusion. Other comorbidities include COPD, chronic systolic heart failure with an ejection fraction 4045%, hypertension, hyperlipidemia, paroxysmal A. fib Last Myocardial Infarction Date:: 11/2021 History of Any Multi-Drug Resistant Organisms: None Reported Past Surgical History: Back Surgery, Heart Catheterization With Stent, Joint Replacement, Orthopedic Surgery Additional Past Surgical History / Comment(s): BILATERAL KNEE REPLACEMENTS, BILATERAL SHOULDER SURGERY, ONE CARDIAC STENT, back surgery X2 (lumbar decompression and fusion), BACK INJECTIONS, COLONOSCOPY, BILATERAL CATARACTS REMOVED WITH LENS IMPLANTS, Cardioversion. ganglion cyst rt wrist removed Past Anesthesia/Blood Transfusion Reactions: No Reported Reaction Additional Past Anesthesia/Blood Transfusion Reaction / Comm: no issues with blood transfusions Date of Last Stent Placement:: 2000 Past Psychological History: No Psychological Hx Reported Smoking Status: Former smoker - Past Family History Father Family Medical History: No Reported History Mother Family Medical History: No Reported History Medications and Allergies Home Medications Medication Instructions Recorded Confirmed Type Fluticasone/Umeclidin/Vilanter 1 puff INHALATION RT-DAILY 11/09/21 12/21/23 History [Treleradha Ellipta 100-62.5-25] Aspirin 81 mg PO DAILY 05/19/22 12/21/23 History Liraglutide [Victoza 3-Casey] 1.8 mg SQ DAILY 10/17/22 12/21/23 History Atorvastatin [Lipitor] 80 mg PO HS 11/07/22 12/21/23 History Ipratropium/Albuter 20-100Mcg 1 puff INHALATION RT-QID PRN 11/07/22 12/21/23 History [Combivent Respimat 20-100Mcg Inhaler] Acetaminophen Tab [Tylenol] 650 mg PO Q6HR PRN tab 03/19/23 12/21/23 Rx Metoprolol Tartrate [Lopressor] 12.5 mg PO BID #0 03/19/23 12/21/23 Rx Spironolactone [Aldactone] 50 mg PO DAILY #30 tab 03/19/23 12/21/23 Rx allopurinoL 100 mg PO DAILY 07/02/23 12/21/23 History ALPRAZolam [Xanax] 0.25 - 0.5 mg PO DAILY PRN 12/21/23 12/21/23 History Ammonium Lactate Cream [Lac-Hydrin 1 applic TOPICAL BID PRN 12/21/23 12/21/23 History 12% Cream] Bumetanide [BUMEX] 2 mg PO BID 12/21/23 12/21/23 History Clobetasol Propionate [Temovate 1 applic TOPICAL BID PRN 12/21/23 12/21/23 Hi story 0.05% Oint] Docusate [Colace] 100 mg PO BID 12/21/23 12/21/23 History HYDROcodone/APAP 10-325MG [[place] 1 tab PO BID PRN 12/21/23 12/21/23 History 10-325] Midodrine [ProAmatine] 5 mg PO DAILY PRN 12/21/23 12/21/23 History Vit C/E/Zn/Coppr/Lutein/Zeaxan 1 cap PO BID 12/21/23 12/21/23 History [Preservision Areds 2 Softgel] hydrOXYzine HCL [Atarax] 10 mg PO DAILY 12/21/23 12/21/23 History Allergies Allergy/AdvReac Type Severity Reaction Status Date / Time protamine Allergy Anaphylaxis Verified 12/21/23 13:47 apixaban [From Eliquis] AdvReac "stomach Verified 12/21/23 13:47 bleeds" dapagliflozin [From Farxiga] AdvReac Itching Verified 12/21/23 13:47 empagliflozin AdvReac Itching Verified 12/21/23 13:47 [From Jardiance] Physical Exam Vitals: Vital Signs Temp Pulse Pulse Resp BP BP Pulse Ox 12/21/23 09:59 98.7 F 88 81 19 101/68 97/60 90 L 12/21/23 08:55 99.7 F H 89 18 106/58 94 L 12/21/23 06:38 100.3 F H 91 20 130/66 93 L Intake and Output 12/20/23 12/21/23 12/21/23 22:59 06:59 14:59 Other: # Voids 1 Weight 72.575 kg GENERAL DESCRIPTION: Elderly male lying in bed, no distress. No tachypnea or accessory muscle of respiration use. HEENT: Shows Pallor , no scleral icterus. Oral mucous membrane is dry. No pharyngeal erythema or thrush NECK: Trachea central, no thyromegaly. LUNGS: Unlabored breathing. Decreased breath sound at the left base HEART: S1, S2, regular rate and rhythm. No loud murmur ABDOMEN: Soft, mildly distended EXTREMITIES: No edema of feet. SKIN: No rash, no masses palpable. NEUROLOGICAL: The patient is awake, alert, oriented x3, mood and affect normal. Results CBC & Chem 7: 12/21/23 07:09 12/21/23 07:09 Labs: Abnormal Lab Results - Last 24 Hours (Table) 12/21/23 12/21/23 12/21/23 Range/Units 07:09 07:09 11:33 WBC 16.6 H (3.8-10.6) k/uL RBC 3.64 L (4.30-5.90) m/uL Hgb 10.9 L (13.0-17.5) gm/dL Hct 34.0 L (39.0-53.0) % RDW 15.6 H (11.5-15.5) % Plt Count 140 L (150-450) k/uL Neutrophils # 15.5 H (1.3-7.7) k/uL Lymphocytes # 0.2 L (1.0-4.8) k/uL Sodium 135 L (137-145) mmol/L Carbon Dioxide 19 L (22-30) mmol/L BUN 98 H (9-20) mg/dL Creatinine 1.83 H (0.66-1.25) mg/dL Glucose 230 H (74-99) mg/dL POC Glucose (mg/dL) 232 H (70-110) mg/dL Total Bilirubin 1.6 H (0.2-1.3) mg/dL Assessment and Plan (1) Pneumonia Current Visit: Yes Status: Acute Code(s): J18.9 - PNEUMONIA, UNSPECIFIED ORGANISM SNOMED Code(s): 633862567 (2) Sepsis Current Visit: Yes Status: Acute Code(s): A41.9 - SEPSIS, UNSPECIFIED ORGANISM SNOMED Code(s): 67363615 Plan: 1patient presented hospital with sepsis in this patient who did have a fever elevated white count meeting currently for SIRS source possible pneumonia however the patient also have predominantly abdominal symptom of nausea and vomiting did have some abdominal distention underlying abdominal source not entirely excluded 2-patient did have a borderline kidney function and high risk of nephrotoxicity from certain antibiotics and investigation 3-we will obtain CT of abdominal pelvis with oral contrast only to better define lower lung as well as intra-abdominal viscera 4check inflammatory markers. 5we will start the patient on Zosyn 3.375 g every 8-hour pending workup completion We will follow on clinical condition and cultures to further adjust medication if needed Thank you for this consultation we will follow the patient along with you Dictation was produced using [employer] dictation software. please excuse any gra mmatical, word or spelling errors. Time with Patient: Greater than 30
[2023-12-22] MEDS ORDERED: VANCOMYCIN IV PER PHARMACY 1 EACH MISC MISCELLANE PRN (07:20)
[2023-12-22] MEDS: IPRATROPIUM 0.5 MG/2.5 ML NEBU INHALATION SCH (07:57)
[2023-12-22] MEDS: VANCOMYCIN 1,250 MG in SODIUM CHLORIDE 0.9% 250 ML IVPB ONE (08:36)
[2023-12-22] MEDS: ASPIRIN 81 MG PO SCH (08:37)
[2023-12-22] MEDS: hydrOXYzine HCL 10 MG TAB PO SCH (08:39)
[2023-12-22] MEDS: allopurinoL 100 MG TAB PO SCH (08:39)
[2023-12-22 09:39] LABS: BUN/Creat Ratio 37.48 Ratio (12.00-20.00); Blood Urea Nitrogen 86.2 mg/dL (9.0-27.0); Calcium 8.6 mg/dL (8.7-10.3); Carbon Dioxide 18.2 mmol/L (21.6-31.8); Chloride 95 mmol/L (96-109); Glucose 172 mg/dL (70-110); Potassium 4.5 mmol/L (3.5-5.5); Sodium 130 mmol/L (135-145)
[2023-12-22 10:14] LABS: Basophils # (A) 0.06 X 10*3/uL (0.00-0.10); Basophils % (A) 0.4 %; Eosinophils # (A) 0.01 X 10*3/uL (0.04-0.35); Eosinophils % (A) 0.1 %; HGB 10.1 g/dL (13.0-17.0); Lymphocytes # (A) 0.22 X 10*3/uL (0.90-5.00); Lymphocytes % (A) 1.5 %; MCH 29.7 pg (27.0-32.0); MCHC 32.6 g/dL (32.0-37.0); MCV 91.2 FL (80.0-97.0); Mean Platelet Volume 11.7 FL (9.5-12.2); Monocytes # (A) 1.32 X 10*3/uL (0.20-1.00); Monocytes % (A) 9.3 %; NRBC Per 100 WBC 0.02 X 10*3/uL (0.00-0.01); Neutrophils # (A) 12.54 X 10*3/uL (1.80-7.70); Neutrophils % (A) 88.2 %; Platelet Count 109 X 10*3/uL (140-440); RDW 15.9 % (11.5-14.5); WBC 14.22 X 10*3/uL (4.50-10.00)
[2023-12-22 11:50] LABS: Glucose,Whole Blood 223 mg/dL (70-110)
[2023-12-22] MEDS: SODIUM CHLORIDE 0.9% 1,000 ML IV SCH (12:25)
--- NOTE | 2023-12-22 15:23 | P.PN ---
Subjective Progress Note Date: 12/22/23 73-year-old male with a past medical history significant of atrial fibrillation, COPD, diabetes, open heart surgery, renal disease, iron deficiency anemia, and hypertension presented to ER via EMS with a chief complaint of shortness of breath. Patient states he started to experience shortness of breath last night with mild chest discomfort. He describes it as a "pain". He states the chest discomfort has since resolved. He does report a history of congestive heart failure. He does not normally wear oxygen at home. He denies any fevers, cough, congestion. He does state he tried 3 breathing treatments at home with no improvement of her symptoms which prompted him to call EMS. EMS states they found patient satting 84% on room air. He did receive 1 breathing treatment by EMS. He denies any abdominal pain, constipation/diarrhea, urinary complaints or peripheral edema. Chest x-ray is concerning for pneumonia; viral swabs are completed and are negative Blood work completed in ED reveals a WBC of 16.6, hemoglobin of 10.9 and platelet count of 140, sodium 135, potassium 4.4, BUNs/creatinine of 98/1.83 and blood glucose of 230 -Patient is placed on IV Rocephin and azithromycin in ED and is admitted to the hospital for further treatment Lab review shows improvement in white blood count from 16.6 yesterday down to 14.2, sodium has trended down to 130 from 136 yesterday; BUNs/creatinine worsening from 98/1.83 up to 86/2.3; blood cultures are positive -- We will start patient on IV fluids in form of normal saline at rate of 75 cc an hour; monitor strict JERICA's, daily weights, renal function electrolytes; avoid nephrotoxins; recommend consulting nephrology if renal function continues to worsen -ID on board and patient has been placed on IV vancomycin in addition to Zosyn and azithromycin Objective - Vital Signs Vital signs: Vital Signs Temp 100.5 F H 12/22/23 06:55 Pulse 73 12/22/23 08:09 Resp 16 12/22/23 06:55 BP 123/70 12/22/23 06:55 Pulse Ox 90 L 12/22/23 06:55 FiO2 Intake & Output 12/21/23 12/22/23 12/22/23 18:59 06:59 18:59 Weight 72.575 kg Other: Voiding Method Toilet # Voids 1 2 # Bowel Movements 1 1 - Exam General appearance: alert, in no apparent distress Respiratory exam: Present: other (Decreased breath sounds bilaterally) Cardiovascular Exam: Present: regular rate, normal rhythm, normal heart sounds. Absent: systolic murmur, diastolic murmur, rubs, gallop, clicks GI/Abdominal exam: Present: soft, normal bowel sounds. Absent: distended, tenderness, guarding, rebound, rigid Extremities exam: Present: normal inspection, full ROM, normal capillary refill. Absent: tenderness, pedal edema, joint swelling, calf tenderness Back exam: Present: normal inspection Psychiatric exam: Present: normal affect, normal mood - Labs CBC & Chem 7: 12/22/23 04:35 12/22/23 04:35 Labs: Abnormal Lab Results - Last 24 Hours (Table) 12/21/23 12/21/23 12/21/23 Range/Units 11:33 16:32 20:26 WBC (4.50-10.00) X 10*3/uL RBC (4.40-5.60) X 10*6/uL Hgb (13.0-17.0) g/dL Hct (39.6-50.0) % RDW (11.5-14.5) % Plt Count (140-440) X 10*3/uL Immature Gran # (0.00-0.04) X 10*3/uL Neutrophils # (1.80-7.70) X 10*3/uL Lymphocytes # (0.90-5.00) X 10*3/uL Monocytes # (0.20-1.00) X 10*3/uL Eosinophils # (0.04-0.35) X 10*3/uL NRBC/100 WBC Diff (0.00-0.01) X 10*3/uL Sodium (135-145) mmol/L Chloride (96-109) mmol/L Carbon Dioxide (21.6-31.8) mmol/L Anion Gap (4.00-12.00) mmol/L BUN (9.0-27.0) mg/dL Creatinine (0.6-1.5) mg/dL Est GFR (CKD-EPI) (>=60) BUN/Creatinine Ratio (12.00-20.00) Ratio Glucose (70-110) mg/dL POC Glucose (mg/dL) 232 H 269 H 186 H (70-110) mg/dL Hemoglobin A1c (<=6.0) % Calcium (8.7-10.3) mg/dL C-Reactive Protein (0.00-0.80) mg/dL 12/22/23 12/22/23 12/22/23 Range/Units 04:35 04:35 04:35 WBC 14.22 H (4.50-10.00) X 10*3/uL RBC 3.40 L (4.40-5.60) X 10*6/uL Hgb 10.1 L (13.0-17.0) g/dL Hct 31.0 L (39.6-50.0) % RDW 15.9 H (11.5-14.5) % Plt Count 109 L (140-440) X 10*3/uL Immature Gran # 0.07 H (0.00-0.04) X 10*3/uL Neutrophils # 12.54 H (1.80-7.70) X 10*3/uL Lymphocytes # 0.22 L (0.90-5.00) X 10*3/uL Monocytes # 1.32 H (0.20-1.00) X 10*3/uL Eosinophils # 0.01 L (0.04-0.35) X 10*3/uL NRBC/100 WBC Diff 0.02 H (0.00-0.01) X 10*3/uL Sodium 130 L (135-145) mmol/L Chloride 95 L (96-109) mmol/L Carbon Dioxide 18.2 L (21.6-31.8) mmol/L Anion Gap 16.80 H (4.00-12.00) mmol/L BUN 86.2 H (9.0-27.0) mg/dL Creatinine 2.3 H (0.6-1.5) mg/dL Est GFR (CKD-EPI) 29 L (>=60) BUN/Creatinine Ratio 37.48 H (12.00-20.00) Ratio Glucose 172 H (70-110) mg/dL POC Glucose (mg/dL) (70-110) mg/dL Hemoglobin A1c 7.6 H (<=6.0) % Calcium 8.6 L (8.7-10.3) mg/dL C-Reactive Protein 8.70 H (0.00-0.80) mg/dL 12/22/23 Range/Units 05:43 WBC (4.50-10.00) X 10*3/uL RBC (4.40-5.60) X 10*6/uL Hgb (13.0-17.0) g/dL Hct (39.6-50.0) % RDW (11.5-14.5) % Plt Count (140-440) X 10*3/uL Immature Gran # (0.00-0.04) X 10*3/uL Neutrophils # (1.80-7.70) X 10*3/uL Lymphocytes # (0.90-5.00) X 10*3/uL Monocytes # (0.20-1.00) X 10*3/uL Eosinophils # (0.04-0.35) X 10*3/uL NRBC/100 WBC Diff (0.00-0.01) X 10*3/uL Sodium (135-145) mmol/L Chloride (96-109) mmol/L Carbon Dioxide (21.6-31.8) mmol/L Anion Gap (4.00-12.00) mmol/L BUN (9.0-27.0) mg/dL Creatinine (0.6-1.5) mg/dL Est GFR (CKD-EPI) (>=60) BUN/Creatinine Ratio (12.00-20.00) Ratio Glucose (70-110) mg/dL POC Glucose (mg/dL) 192 H (70-110) mg/dL Hemoglobin A1c (<=6.0) % Calcium (8.7-10.3) mg/dL C-Reactive Protein (0.00-0.80) mg/dL Microbiology - Last 24 Hours (Table) 12/21/23 07:09 Blood Culture Gram Stain - Preliminary Blood Blood Culture - Preliminary Molecular ID 12/21/23 07:09 Blood Culture Gram Stain - Preliminary Blood Assessment and Plan Assessment: 1. Community-acquired pneumonial left lower lobe -Patient received IV Rocephin and azithromycin in ED; has been evaluated by ID and Rocephin has been discontinued and patient is placed on Zosyn 3.375 g IV every 8 hours -Patient has been pancultured; monitor CBC, CRP and procalcitonin 2. Left-sided pleural effusion; trace; likely parapneumonic; recommend repeat chest x-ray once clinically stable 3. Acute renal injury; patient is placed on slow IV fluid hydration with normal saline at rate of 75 cc an hour; we will hold off on home dose of Bumex; monitor strict JERICA's, daily weights, renal function electrolytes; avoid nephrotoxins and hypotension 4. Hyperbilirubinemia; we will repeat liver enzymes 5. Hyperglycemia/diabetes mellitus; patient takes Victoza which can be continued upon discharge; will monitor Accu-Cheks q. CHS with insulin sliding scale 6. Hypertension; metoprolol 12.5 mg twice daily; Aldactone 50 mg daily; Bumex 1 mg twice daily 4. COPD; not in exacerbation; continue with home inhaler therapy DVT prophylaxis; SCDs/subcu heparin CODE STATUS; full code
[2023-12-22 16:26] LABS: Glucose,Whole Blood 156 mg/dL (70-110)
[2023-12-22 19:44] LABS: Glucose,Whole Blood 225 mg/dL (70-110)
--- NOTE | 2023-12-22 20:46 | P.PN ---
Subjective Progress Note Date: 12/22/23 Principal diagnosis: Reason for follow-up is pneumonia and MRSA bacteremia Patient is a 73-year-old male with a past medical history significant for diabetes mellitus hypertension hyperlipidemia [place] atrial fibrillation coronary artery disease patient presenting to the hospital complaining of shortness of breath there was concern for possible pneumonia with abdominal distention CT was done did not show any abdominal process confirming left lower lobe pneumonia blood cultures are positive with MRSA. On today's evaluation that is 12/22/2023,the patient did have a fever of 101.1 F last night and low-grade fever 100.5 this morning however the patient denies any fever or any chills at this point, patient is breathing comfortably on 2 L nasal oxygen the patient denies chest pain shortness of breath and no worsening cough or sputum production, patient denies abdominal pain, no nausea vomiting or diarrhea. Patient white count is down to 14.22, creatinine is 2.3 blood culture with MRSA Objective - Vital Signs Vital signs: Vital Signs Temp 100.5 F H 12/22/23 06:55 Pulse 73 12/22/23 08:09 Resp 16 12/22/23 06:55 BP 123/70 12/22/23 06:55 Pulse Ox 90 L 12/22/23 06:55 FiO2 Intake & Output 12/21/23 12/22/23 12/22/23 18:59 06:59 18:59 Weight 72.575 kg Other: Voiding Method Toilet # Voids 1 2 # Bowel Movements 1 1 - Exam GENERAL DESCRIPTION: An elderly male up in the chair in no distress RESPIRATORY SYSTEM: Unlabored breathing , decreased breath sounds at bases HEART: S1 S2 regular rate and rhythm , ABDOMEN: Soft , no tenderness EXTREMITIES: No edema feet - Labs CBC & Chem 7: 12/22/23 04:35 12/22/23 04:35 Labs: Abnormal Lab Results - Last 24 Hours (Table) 12/21/23 12/21/23 12/21/23 Range/Units 11:33 16:32 20:26 Sodium (135-145) mmol/L Chloride (96-109) mmol/L Carbon Dioxide (21.6-31.8) mmol/L Anion Gap (4.00-12.00) mmol/L BUN (9.0-27.0) mg/dL Creatinine (0.6-1.5) mg/dL Est GFR (CKD-EPI) (>=60) BUN/Creatinine Ratio (12.00-20.00) Ratio Glucose (70-110) mg/dL POC Glucose (mg/dL) 232 H 269 H 186 H (70-110) mg/dL Hemoglobin A1c (<=6.0) % Calcium (8.7-10.3) mg/dL C-Reactive Protein (0.00-0.80) mg/dL 12/22/23 12/22/23 12/22/23 Range/Units 04:35 04:35 05:43 Sodium 130 L (135-145) mmol/L Chloride 95 L (96-109) mmol/L Carbon Dioxide 18.2 L (21.6-31.8) mmol/L Anion Gap 16.80 H (4.00-12.00) mmol/L BUN 86.2 H (9.0-27.0) mg/dL Creatinine 2.3 H (0.6-1.5) mg/dL Est GFR (CKD-EPI) 29 L (>=60) BUN/Creatinine Ratio 37.48 H (12.00-20.00) Ratio Glucose 172 H (70-110) mg/dL POC Glucose (mg/dL) 192 H (70-110) mg/dL Hemoglobin A1c 7.6 H (<=6.0) % Calcium 8.6 L (8.7-10.3) mg/dL C-Reactive Protein 8.70 H (0.00-0.80) mg/dL Microbiology - Last 24 Hours (Table) 12/21/23 07:09 Blood Culture Gram Stain - Preliminary Blood Blood Culture - Preliminary Molecular ID 12/21/23 07:09 Blood Culture Gram Stain - Preliminary Blood Assessment and Plan (1) Pneumonia Current Visit: Yes Status: Acute Code(s): J18.9 - PNEUMONIA, UNSPECIFIED ORGANISM SNOMED Code(s): 465253228 (2) Sepsis Current Visit: Yes Status: Acute Code(s): A41.9 - SEPSIS, UNSPECIFIED ORGANISM SNOMED Code(s): 01433846 Plan: 1patient presented hospital with sepsis in this patient who did have a fever elevated white count meeting currently for SIRS source possible pneumonia however the patient also have predominantly abdominal symptom of nausea and vomiting did have some abdominal distention underlying abdominal source not entirely excluded 2-patient did have CT of abdominal pelvis with oral contrast only did not show any intra-abdominal process to confirm left lower lobe pneumonia 3patient with MRSA bacteremia source likely pneumonia as no other obvious focus of blood culture repeated document clearance 4we will discontinue Zosyn and the patient has been started on vancomycin we will watch his kidney function closely Dictation was produced using [id number] dictation software. please excuse any grammatical, word or spelling errors. Time with Patient: Less than 30
[2023-12-23 05:54] LABS: Glucose,Whole Blood 165 mg/dL (70-110)
[2023-12-23] MEDS: VANCOMYCIN 1,250 MG in SODIUM CHLORIDE 0.9% 250 ML IVPB ONE (08:20)
[2023-12-23 09:05] LABS: BUN/Creat Ratio 37.08 Ratio (12.00-20.00); Blood Urea Nitrogen 92.7 mg/dL (9.0-27.0); Calcium 8.3 mg/dL (8.7-10.3); Carbon Dioxide 19.8 mmol/L (21.6-31.8); Chloride 98 mmol/L (96-109); Glucose 133 mg/dL (70-110); Potassium 4.4 mmol/L (3.5-5.5); Sodium 130 mmol/L (135-145)
[2023-12-23 09:16] LABS: HCT 29.7 % (39.6-50.0); HGB 9.4 g/dL (13.0-17.0); MCH 29.8 pg (27.0-32.0); MCHC 31.6 g/dL (32.0-37.0); MCV 94.3 FL (80.0-97.0); NRBC Per 100 WBC 0 X 10*3/uL (0.00-0.01); Platelet Count 103 X 10*3/uL (140-440); RBC 3.15 X 10*6/uL (4.40-5.60); WBC 9.87 X 10*3/uL (4.50-10.00)
[2023-12-23 09:50] LABS: Basophils # (A) 0.06 X 10*3/uL (0.00-0.10); Basophils % (A) 0.6 %; Crenated RBC 2+; Elliptocytes 2+; Eosinophils # (A) 0.21 X 10*3/uL (0.04-0.35); Eosinophils % (A) 2.1 %; Lymphocytes # (A) 0.53 X 10*3/uL (0.90-5.00); Lymphocytes % (A) 5.4 %; Monocytes # (A) 1.82 X 10*3/uL (0.20-1.00); Monocytes % (A) 18.4 %; Neutrophils # (A) 7.16 X 10*3/uL (1.80-7.70); Neutrophils % (A) 72.6 %
[2023-12-23 11:49] LABS: Glucose,Whole Blood 259 mg/dL (70-110)
--- NOTE | 2023-12-23 12:20 | US ---
EXAMINATION TYPE: US kidneys/renal and bladder DATE OF EXAM: 12/23/2023 COMPARISON: CT CLINICAL INDICATION: Male, 73 years old with history of Syed; SYED EXAM MEASUREMENTS: Right Kidney: 9.7 x 5.6 x 5.3 cm Left Kidney: 10.7 x 4.8 x 5.0 cm Right Kidney: No hydronephrosis or masses seen Left Kidney: No hydronephrosis or masses seen Bladder: wnl Bilateral Jets seen: only right jet visualized There is no evidence for hydronephrosis at this point in time. No nephrolithiasis is seen. No skyla s are identified. The urinary bladder is anechoic. IMPRESSION: No significant abnormality seen.
--- NOTE | 2023-12-23 13:23 | P.PN ---
Subjective Progress Note Date: 12/23/23 73-year-old male with a past medical history significant of atrial fibrillation, COPD, diabetes, open heart surgery, renal disease, iron deficiency anemia, and hypertension presented to ER via EMS with a chief complaint of shortness of breath. Patient states he started to experience shortness of breath last night with mild chest discomfort. He describes it as a "pain". He states the chest discomfort has since resolved. He does report a history of congestive heart failure. He does not normally wear oxygen at home. He denies any fevers, cough, congestion. He does state he tried 3 breathing treatments at home with no improvement of her symptoms which prompted him to call EMS. EMS states they found patient satting 84% on room air. He did receive 1 breathing treatment by EMS. He denies any abdominal pain, constipation/diarrhea, urinary complaints or peripheral edema. Chest x-ray is concerning for pneumonia; viral swabs are completed and are negative Blood work completed in ED reveals a WBC of 16.6, hemoglobin of 10.9 and platelet count of 140, sodium 135, potassium 4.4, BUNs/creatinine of 98/1.83 and blood glucose of 230 -Patient is placed on IV Rocephin and azithromycin in ED and is admitted to the hospital for further treatment Lab review shows improvement in white blood count from 16.6 yesterday down to 14.2, sodium has trended down to 130 from 136 yesterday; BUNs/creatinine worsening from 98/1.83 up to 86/2.3; blood cultures are positive -- We will start patient on IV fluids in form of normal saline at rate of 75 cc an hour; monitor strict JERICA's, daily weights, renal function electrolytes; avoid nephrotoxins; recommend consulting nephrology if renal function continues to worsen -ID on board and patient has been placed on IV vancomycin in addition to Zosyn and azithromycin 12/22. Patient seen and examined. States breathing is improved. Denies any fever or chills REVIEW OF SYSTEMS: CONSTITUTIONAL: No fever, no malaise,. CARDIOVASCULAR: No chest pain, no palpitations, no syncope. PULMONARY: No shortness of breath, no cough, GASTROINTESTINAL: No diarrhea, no nausea, no vomiting, no abdominal pain. NEUROLOGICAL: No headaches, no weakness, PHYSICAL EXAMINATION: GENERAL: The patient is alert and oriented x3, not in any acute distress. Well developed, well nourished. HEENT: Pupils are round and equally reacting to light. EOMI. No scleral icterus. No conjunctival pallor. Normocephalic, atraumatic. No pharyngeal erythema. No thyromegaly. CARDIOVASCULAR: S1 and S2 present. No murmurs, rubs, or gallops. PULMONARY: Chest is clear to auscultation, no wheezing or crackles. ABDOMEN: Soft, nontender, nondistended, normoactive bowel sounds. No palpable organomegaly. MUSCULOSKELETAL: No joint swelling or deformity. EXTREMITIES: No cyanosis, clubbing, or pedal edema. NEUROLOGICAL: Gross neurological examination did not reveal any focal deficits. SKIN: No rashes. Assessment and plan Community-acquired pneumonial left lower lobe Left-sided pleural effusion; trace; likely parapneumonic; MRSA bacteremia Monitor vital signs monitor CBC Monitor CMP Blood cultures positive for MRSA. Ordered 2D echo Continue IV Vancomycin ID following Acute renal injury Monitor BMP Ultrasound of kidney Continue IV fluid Consult nephrology Hyperbilirubinemia; monitor LFTs Hyperglycemia/diabetes mellitus; patient takes Victoza which can be continued upon discharge; will monitor Accu-Cheks q. CHS with insulin sliding scale Hypertension; monitor vital signs, hold blood pressure medications for now COPD; not in exacerbation; continue with home inhaler therapy Labs and medication were reviewed.. Continue same treatment. Continue with symptomatic treatment. Resume home medication. Monitor labs and vitals. DVT and GI prophylaxis. Further recommendations as per clinical course of the pa luis Dictation was produced using [employer] dictation software. please excuse any grammatical, word or spelling errors. Objective - Vital Signs Vital signs: Vital Signs Temp 97.6 F 12/23/23 07:40 Pulse 80 12/23/23 08:17 Resp 18 12/23/23 07:40 BP 113/72 12/23/23 07:40 Pulse Ox 95 12/23/23 08:10 FiO2 Intake & Output 12/22/23 12/23/23 12/23/23 18:59 06:59 18:59 Intake Total 850 Balance 850 Intake: Intake, IV Titration 850 Amount Sodium Chloride 0.9% 1, 600 000 ml @ 75 mls/hr IV . [id number] [facility] Rx#:[id number] Vancomycin 1,250 mg In 250 Sodium Chloride 0.9% 250 ml @ 125 mls/hr IVPB ONCE ONE Rx#:[id number] Other: Voiding Method Toilet # Voids 2 - Labs CBC & Chem 7: 12/23/23 03:58 12/23/23 03:58 Labs: Abnormal Lab Results - Last 24 Hours (Table) 12/22/23 12/22/23 12/22/23 Range/Units 11:49 16:24 19:43 RBC (4.40-5.60) X 10*6/uL Hgb (13.0-17.0) g/dL Hct (39.6-50.0) % MCHC (32.0-37.0) g/dL RDW (11.5-14.5) % Plt Count (140-440) X 10*3/uL Immature Gran # (0.00-0.04) X 10*3/uL Lymphocytes # (0.90-5.00) X 10*3/uL Monocytes # (0.20-1.00) X 10*3/uL Crenated Cell Elliptocytes Sodium (135-145) mmol/L Carbon Dioxide (21.6-31.8) mmol/L Anion Gap (4.00-12.00) mmol/L BUN (9.0-27.0) mg/dL Creatinine (0.6-1.5) mg/dL Est GFR (CKD-EPI) (>=60) BUN/Creatinine Ratio (12.00-20.00) Ratio Glucose (70-110) mg/dL POC Glucose (mg/dL) 223 H 156 H 225 H (70-110) mg/dL Calcium (8.7-10.3) mg/dL 12/23/23 12/23/23 12/23/23 Range/Units 03:58 03:58 05:45 RBC 3.15 L (4.40-5.60) X 10*6/uL Hgb 9.4 L (13.0-17.0) g/dL Hct 29.7 L (39.6-50.0) % MCHC 31.6 L (32.0-37.0) g/dL RDW 16.0 H (11.5-14.5) % Plt Count 103 L (140-440) X 10*3/uL Immature Gran # 0.09 H (0.00-0.04) X 10*3/uL Lymphocytes # 0.53 L (0.90-5.00) X 10*3/uL Monocytes # 1.82 H (0.20-1.00) X 10*3/uL Crenated Cell 2+ A Elliptocytes 2+ A Sodium 130 L (135-145) mmol/L Carbon Dioxide 19.8 L (21.6-31.8) mmol/L Anion Gap 12.20 H (4.00-12.00) mmol/L BUN 92.7 H (9.0-27.0) mg/dL Creatinine 2.5 H (0.6-1.5) mg/dL Est GFR (CKD-EPI) 26 L (>=60) BUN/Creatinine Ratio 37.08 H (12.00-20.00) Ratio Glucose 133 H (70-110) mg/dL POC Glucose (mg/dL) 165 H (70-110) mg/dL Calcium 8.3 L (8.7-10.3) mg/dL Microbiology - Last 24 Hours (Table) 12/21/23 07:09 Blood Culture Gram Stain - Preliminary Blood Blood Culture - Preliminary Presumptive MRSA 12/21/23 07:09 Blood Culture Gram Stain - Preliminary Blood Blood Culture - Preliminary Presumptive MRSA Molecular ID
[2023-12-23 16:49] LABS: Glucose,Whole Blood 277 mg/dL (70-110)
--- NOTE | 2023-12-23 16:57 | CA ---
Transthoracic Echo Report Name: Derek Araiza Age: 73 Gender: M : 1950 Exam Date: 12/23/2023 15:20 Exam Location: [facility] Ht (in): 69 Wt (lb): 160 Ordering Physician: Sotero Sanchez MD Attending/Referring Phys: [employer] Executive Deyanira Laguna RDCS Procedure CPT: Indications: bacteremia Cardiac Hx: Technical Quality: Fair Contrast 1: Total Dose (mL): Contrast 2: Total Dose (mL): MEASUREMENTS (Male / Female) Normal Values 2D ECHO LV Diastolic Diameter PLAX 5.2 cm 4.2 - 5.9 / 3.9 - 5.3 cm LV Systolic Diameter PLAX 3.8 cm IVS Diastolic Thickness 1.6 cm 0.6 - 1.0 / 0.6 - 0.9 cm LVPW Diastolic Thickness 1.6 cm 0.6 - 1.0 / 0.6 - 0.9 cm LV Relative Wall Thickness 0.6 RV Internal Dim ED PLAX 5.7 cm LVOT Diameter 1.8 cm LA Volume 96.9 cm??? 18 - 58 / 22 - 52 cm??? LA Volume Index 51.4 cm???/m??? 16 - 28 cm???/m??? M-MODE Aortic Root Diameter MM 3.3 cm LA Systolic Diameter MM 4.6 cm LA Ao Ratio MM 1.4 AV Cusp Separation MM 0.7 cm DOPPLER AV Peak Velocity 305.1 cm/s AV Peak Gradient 37.2 mmHg AV Mean Velocity 207.4 cm/s AV Mean Gradient 19.8 mmHg AV Velocity Time Integral 55.9 cm LVOT Peak Velocity 102.1 cm/s LVOT Peak Gradient 4.2 mmHg LVOT Velocity Time Integral 14.7 cm LVOT Stroke Volume 36.4 cm??? LVOT Stroke Volume Index 19.3 ml/m??? LVOT Cardiac Index 1331.3 cm???/min???m??? AV Area Cont Eq vti 0.6 cm??? AV Area Cont Eq pk 0.8 cm??? MV Peak Velocity 196.2 cm/s MV Peak Gradient 15.4 mmHg MV Mean Velocity 70.1 cm/s MV Mean Gradient 3.1 mmHg MV Velocity Time Integral 38.4 cm MV Area PHT 3.2 cm??? MR Peak Velocity 488.3 cm/s MR Peak Gradient 95.4 mmHg Mitral E Point Velocity 183.4 cm/s Mitral A Point Velocity 0.4 cm/s Mitral E to A Ratio 448.1 MV Deceleration Time 235.4 ms MV E' Velocity 4.5 cm/s Mitral E to MV E' Ratio 40.4 TR Peak Velocity 417.0 cm/s TR Peak Gradient 69.5 mmHg Right Ventricular Systolic Press 73.4 mmHg FINDINGS Left Ventricle Moderately increased left ventricular wall thickness. Left ventricular cavity size normal. Abnormal (paradoxical) septal motion consistent with postoperative state. Left ventricular ejection fraction is estimated at 45- 50 %. Grade 2 diastolic dysfunction. Right Ventricle Severe right ventricular dilatation. Severe pulmonary hypertension. Right ventricular systolic pressure estimated at 73 mm hg. Right Atrium Moderate right atrial dilatation. Left Atrium Severely increased left atrial volume. Mildly increased left atrial area. Mitral Valve Mitral valve thickened. Erlwmzef-ti-yheebh mitral regurgitation, posteriorly directed mitral regurgitation jet. . Moderate mitral annular calcification. S/p MV repair. Aortic Valve Trileaflet aortic valve. Oyfd-im-qlisczlx aortic stenosis with a peak gradient of 37 mmHg and a mean gradient of 20 mmHg. Trace aortic regurgitation. Tricuspid Valve Structurally normal tricuspid valve. Severe tricuspid regurgitation. Pulmonic Valve Structurally normal pulmonic valve. Trace pulmonic regurgitation. Pericardium No pericardial effusion. Aorta Normal size aortic root and proximal ascending aorta. CONCLUSIONS Mild to moderate LV systolic dysfunction Severe pulmonary hypertension Mild to moderate aortic stenosis Severe tricuspid regurgitation Moderate to severe eccentric jet of mitral regurgitation Consider transesophageal echo if clinically indicated to rule out vegetation Previewed by: Dr. Santiago Ramos MD (Electronically Signed) Final Date: 23 December 2023 16:56
[2023-12-23 20:04] LABS: Glucose,Whole Blood 237 mg/dL (70-110)
--- NOTE | 2023-12-23 22:17 | P.PN ---
Subjective Progress Note Date: 12/23/23 Principal diagnosis: Reason for follow-up is pneumonia and MRSA bacteremia Patient is a 73-year-old male with a past medical history significant for diabetes mellitus hypertension hyperlipidemia [place] atrial fibrillation coronary artery disease patient presenting to the hospital complaining of shortness of breath there was concern for possible pneumonia with abdominal distention CT was done did not show any abdominal process confirming left lower lobe pneumonia blood cultures are positive with MRSA. On today's evaluation that is 12/23/2023,the patient remains to be afebrile, patient is on 2 L nasal cannula supplemental oxygen and denies any shortness of breath no chest pain patient continues to have cough and was able to bring up a sputum sample.Patient denies having any nausea or vomiting, no abdominal pain and no diarrhea has been reported. Patient white count is normalized to 9.87 creatinine is 2.5 blood culture with MRSA Objective - Vital Signs Vital signs: Vital Signs Temp 97.5 F L 12/23/23 19:52 Pulse 73 12/23/23 21:55 Resp 20 12/23/23 20:49 BP 96/61 12/23/23 21:55 Pulse Ox 95 12/23/23 21:55 FiO2 Intake & Output 12/23/23 12/23/23 12/24/23 06:59 18:59 06:59 Other: Voiding Method Toilet Toilet # Voids 2 2 # Bowel Movements 1 - Exam GENERAL DESCRIPTION: An elderly male up in the chair in no distress RESPIRATORY SYSTEM: Unlabored breathing , decreased breath sounds at bases HEART: S1 S2 regular rate and rhythm , ABDOMEN: Soft , no tenderness EXTREMITIES: No edema feet - Labs CBC & Chem 7: 12/23/23 03:58 12/23/23 03:58 Labs: Abnormal Lab Results - Last 24 Hours (Table) 12/23/23 12/23/23 12/23/23 Range/Units 03:58 03:58 05:45 RBC 3.15 L (4.40-5.60) X 10*6/uL Hgb 9.4 L (13.0-17.0) g/dL Hct 29.7 L (39.6-50.0) % MCHC 31.6 L (32.0-37.0) g/dL RDW 16.0 H (11.5-14.5) % Plt Count 103 L (140-440) X 10*3/uL Immature Gran # 0.09 H (0.00-0.04) X 10*3/uL Lymphocytes # 0.53 L (0.90-5.00) X 10*3/uL Monocytes # 1.82 H (0.20-1.00) X 10*3/uL Crenated Cell 2+ A Elliptocytes 2+ A Sodium 130 L (135-145) mmol/L Carbon Dioxide 19.8 L (21.6-31.8) mmol/L Anion Gap 12.20 H (4.00-12.00) mmol/L BUN 92.7 H (9.0-27.0) mg/dL Creatinine 2.5 H (0.6-1.5) mg/dL Est GFR (CKD-EPI) 26 L (>=60) BUN/Creatinine Ratio 37.08 H (12.00-20.00) Ratio Glucose 133 H (70-110) mg/dL POC Glucose (mg/dL) 165 H (70-110) mg/dL Calcium 8.3 L (8.7-10.3) mg/dL 12/23/23 12/23/23 12/23/23 Range/Units 11:48 16:47 20:03 RBC (4.40-5.60) X 10*6/uL Hgb (13.0-17.0) g/dL Hct (39.6-50.0) % MCHC (32.0-37.0) g/dL RDW (11.5-14.5) % Plt Count (140-440) X 10*3/uL Immature Gran # (0.00-0.04) X 10*3/uL Lymphocytes # (0.90-5.00) X 10*3/uL Monocytes # (0.20-1.00) X 10*3/uL Crenated Cell Elliptocytes Sodium (135-145) mmol/L Carbon Dioxide (21.6-31.8) mmol/L Anion Gap (4.00-12.00) mmol/L BUN (9.0-27.0) mg/dL Creatinine (0.6-1.5) mg/dL Est GFR (CKD-EPI) (>=60) BUN/Creatinine Ratio (12.00-20.00) Ratio Glucose (70-110) mg/dL POC Glucose (mg/dL) 259 H 277 H 237 H (70-110) mg/dL Calcium (8.7-10.3) mg/dL Microbiology - Last 24 Hours (Table) 12/22/23 07:40 Blood Culture - Preliminary Blood 12/21/23 07:09 Blood Culture Gram Stain - Preliminary Blood Blood Culture - Preliminary Presumptive MRSA 12/21/23 07:09 Blood Culture Gram Stain - Preliminary Blood Blood Culture - Preliminary Presumptive MRSA Molecular ID Assessment and Plan (1) Pneumonia Current Visit: Yes Status: Acute Code(s): J18.9 - PNEUMONIA, UNSPECIFIED ORGANISM SNOMED Code(s): 073517440 (2) Sepsis Current Visit: Yes Status: Acute Code(s): A41.9 - SEPSIS, UNSPECIFIED ORGANISM SNOMED Code(s): 63847309 Plan: 1patient presented hospital with sepsis in this patient who did have a fever elevated white count meeting currently for SIRS source possible pneumonia however the patient also have predominantly abdominal symptom of nausea and vomiting did have some abdominal distention underlying abdominal source not entirely excluded 2-patient did have CT of abdominal pelvis with oral contrast only did not show any intra-abdominal process to confirm left lower lobe pneumonia 3patient with MRSA bacteremia source likely pneumonia as no other obvious focus of blood culture has been repeated to document clearance 4patient to continue with vancomycin pharmacy to dose while watching kidney function closely Dictation was produced using [employer] dictation software. please excuse any grammatical, word or spelling errors. Time with Patient: Less than 30
[2023-12-24 05:27] LABS: ALT 49 U/L (4-49); AST 56 U/L (17-59); African American GFR (CKD) 30 (>60 ml/min/1.73 sqM); Albumin 3.3 g/dL (3.5-5.0); Albumin/Globulin Ratio 1.4; Alkaline Phosphatase 80 U/L (38-126); Anion Gap 10 mmol/L; Blood Urea Nitrogen 96 mg/dL (9-20); Calcium 8.2 mg/dL (8.4-10.2); Carbon Dioxide 14 mmol/L (22-30); Chloride 103 mmol/L (98-107); Globulin 2.3 g/dL; Glucose 140 mg/dL (74-99); Non-African American GFR(CKD) 26 (>60 ml/min/1.73 sqM); Potassium 4.8 mmol/L (3.5-5.1); Sodium 127 mmol/L (137-145); Total Bilirubin 1.3 mg/dL (0.2-1.3); Total Protein 5.6 g/dL (6.3-8.2)
[2023-12-24 05:32] LABS: Vancomycin,Random 15.5 ug/mL
[2023-12-24 06:06] LABS: Glucose,Whole Blood 179 mg/dL (70-110)
[2023-12-24 08:28] LABS: Basophils # (A) 0.07 X 10*3/uL (0.00-0.10); Basophils % (A) 0.7 %; Eosinophils # (A) 0.31 X 10*3/uL (0.04-0.35); Eosinophils % (A) 3.1 %; HGB 9.4 g/dL (13.0-17.0); Lymphocytes # (A) 0.64 X 10*3/uL (0.90-5.00); Lymphocytes % (A) 6.4 %; MCH 29.2 pg (27.0-32.0); MCHC 31.3 g/dL (32.0-37.0); MCV 93.2 FL (80.0-97.0); Mean Platelet Volume 12.1 FL (9.5-12.2); NRBC Per 100 WBC 0 X 10*3/uL (0.00-0.01); Neutrophils # (A) 7.34 X 10*3/uL (1.80-7.70); Neutrophils % (A) 73.2 %; Platelet Count 128 X 10*3/uL (140-440); RBC 3.22 X 10*6/uL (4.40-5.60); RDW 15.9 % (11.5-14.5); WBC 10.02 X 10*3/uL (4.50-10.00)
[2023-12-24] MEDS: VANCOMYCIN 1,250 MG in SODIUM CHLORIDE 0.9% 250 ML IVPB ONE (09:41)
[2023-12-24 11:46] LABS: Glucose,Whole Blood 274 mg/dL (70-110)
--- NOTE | 2023-12-24 11:52 | P.NPCON ---
History of Present Illness - Reason for Consult acute renal failure - History of Present Illness patient is a 73-year-old male with history of type 2 diabetes, COPD, chronic A. fib and chronic kidney disease stage IV with baseline creatinine about 1.6-1.8 mg/dL. Patient is admitted to the hospital with complaints of chest pain and shortness of breath. Chest x-ray shows infiltrates in the lower lung with concern for pneumonia. BP has been low with systolic in the 80s and 90s. Patient states she has been voiding. Serum creatinine was 1.8 on admission and increased to 2.4 today. currently maintained on IV fluids. Serum sodium was 135 on admission and decreased to 127 today. Remains mildly short of breath. Review of Systems as per HPI Past Medical History Past Medical History: Atrial Fibrillation, Coronary Artery Disease (CAD), COPD, Diabetes Mellitus, GI Bleed, Hearing Disorder / Deafness, Hyperlipidemia, Hypertension, Myocardial Infarction (GA), Renal Disease Additional Past Medical History / Comment(s): Previous bypass surgery, previous repair of the mitral valve, comp to get postoperative course requiring dialysis for renal failure and the patient also developed GI bleed requiring blood tra nsfusions recent significant developed a chronic loculated left-sided pleural effusion. Other comorbidities include COPD, chronic systolic heart failure with an ejection fraction 4045%, hypertension, hyperlipidemia, paroxysmal A. fib Last Myocardial Infarction Date:: 11/2021 History of Any Multi-Drug Resistant Organisms: None Reported Past Surgical History: Back Surgery, Heart Catheterization With Stent, Joint Replacement, Orthopedic Surgery Additional Past Surgical History / Comment(s): BILATERAL KNEE REPLACEMENTS, BILATERAL SHOULDER SURGERY, ONE CARDIAC STENT, back surgery X2 (lumbar decomp ression and fusion), BACK INJECTIONS, COLONOSCOPY, BILATERAL CATARACTS REMOVED WITH LENS IMPLANTS, Cardioversion. ganglion cyst rt wrist removed Past Anesthesia/Blood Transfusion Reactions: No Reported Reaction Additional Past Anesthesia/Blood Transfusion Reaction / Comment(s): no issues with blood transfusions Date of Last Stent Placement:: 2000 Past Psychological History: No Psychological Hx Reported Smoking Status: Former smoker - Past Family History Father Family Medical History: No Reported History Mother Family Medical History: No Reported History Medications and Allergies Home Medications Medication Instructions Recorded Confirmed Type Fluticasone/Umeclidin/Vilanter 1 puff INHALATION RT-DAILY 11/09/21 12/21/23 History [Trelegy Ellipta 100-62.5-25] Aspirin 81 mg PO DAILY 05/19/22 12/21/23 History Liraglutide [Victoza 3-Casey] 1.8 mg SQ DAILY 10/17/22 12/21/23 History Atorvastatin [Lipitor] 80 mg PO HS 11/07/22 12/21/23 History Ipratropium/Albuter 20-100Mcg 1 puff INHALATION RT-QID PRN 11/07/22 12/21/23 Hi story [Combivent Respimat 20-100Mcg Inhaler] Acetaminophen Tab [Tylenol] 650 mg PO Q6HR PRN tab 03/19/23 12/21/23 Rx Metoprolol Tartrate [Lopressor] 12.5 mg PO BID #0 03/19/23 12/21/23 Rx Spironolactone [Aldactone] 50 mg PO DAILY #30 tab 03/19/23 12/21/23 Rx allopurinoL 100 mg PO DAILY 07/02/23 12/21/23 History ALPRAZolam [Xanax] 0.25 - 0.5 mg PO DAILY PRN 12/21/23 12/21/23 History Ammonium Lactate Cream [Lac-Hydrin 1 applic TOPICAL BID PRN 12/21/23 12/21/23 History 12% Cream] Bumetanide [BUMEX] 2 mg PO BID 12/21/23 12/21/23 History Clobetasol Propionate [Temovate 1 applic TOPICAL BID PRN 12/21/23 12/21/23 History 0.05% Oint] Docusate [Colace] 100 mg PO BID 12/21/23 12/21/23 History HYDROcodone/APAP 10-325MG [Devine 1 tab PO BID PRN 12/21/23 12/21/23 History 10-325] Midodrine [ProAmatine] 5 mg PO DAILY PRN 12/21/23 12/21/23 History Vit C/E/Zn/Coppr/Lutein/Zeaxan 1 cap PO BID 12/21/23 12/21/23 History [Preservision Areds 2 Softgel] hydrOXYzine HCL [Atarax] 10 mg PO DAILY 12/21/23 12/21/23 History Allergies Allergy/AdvReac Type Severity Reaction Status Date / Time protamine Allergy Anaphylaxis Verified 12/21/23 13:47 apixaban [From Eliquis] AdvReac "stomach Verified 12/21/23 13:47 bleeds" dapagliflozin [From Farxiga] AdvReac Itching Verified 12/21/23 13:47 empagliflozin AdvReac Itching Verified 12/21/23 13:47 [From Jardiance] Physical Exam Vitals: Vital Signs Temp Pulse Pulse Resp BP BP Pulse Ox 12/24/23 07:59 76 12/24/23 07:49 75 95 12/24/23 07:45 65 17 12/24/23 07:13 98.2 F 65 17 100/62 93 L 12/24/23 00:53 98.2 F 68 17 101/65 97 12/23/23 21:55 73 96/61 95 12/23/23 21:50 73 97/58 12/23/23 20:49 73 20 97/58 95 12/23/23 20:00 51 L 100/52 12/23/23 19:52 97.5 F L 60 16 89/58 94 L 12/23/23 19:45 73 20 12/23/23 16:26 76 12/23/23 16:17 82 12/23/23 13:30 97.9 F 70 20 96/65 96 12/23/23 12:29 78 12/23/23 12:18 78 Intake and Output 12/23/23 12/24/23 12/24/23 22:59 06:59 14:59 Intake Total 500 520 720 Output Total 200 Balance 500 520 520 Intake: Oral 500 520 720 Output: Urine 200 Other: Voiding Method Toilet Toilet # Voids 1 1 # Bowel Movements 1 1 patient is awake, comfortable, no acute distress. Examination of the heart S1 and S2 Examination of the lungs bilateral breath sounds are heard Abdomen is soft nontender Examination of lower extremities shows 1+ edema bilaterally CAR WASHER exam grossly intact Results - Lab Results Most recent lab results Calcium 8.2 mg/dL (8.4-10.2) L 12/24/23 04:46 Magnesium 2.0 mg/dL (1.6-2.3) 12/21/23 07:09 12/24/23 04:46 12/24/23 04:46 Assessment and Plan Assessment: 1. Acute kidney injury, ATN secondary to hypotension, nonoliguric. Rule out urine retention. Check UA. no obstruction noted on ultrasound of the kidneys on 12/23/2023. 2. Hyponatremia worsening with saline administration. Rule out SIADH. Patient appears to have some lower extremity edema. Urine osmolality and random urine sodium will be ordered. I will discontinue the IV fluids for now. 3. MRSA bacteremia, source is likely pneumonia. Maintained on IV vancomycin. 4. Non-gap metabolic acidosis associated with acute kidney injury. 5. 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 Plan: DC IV fluids Sodium chloride tab 1 Check urine osmolality and random urine sodium. Check random cortisol level. Repeat labs in a.m. Repeat is pending. Check bladder scan and rule out urine retention. May continue with IV vancomycin with close monitoring of levels.\\ thank you for the consultation. We will continue to follow the patient with you during his hospitalization.
[2023-12-24] MEDS: SODIUM CHLORIDE TAB 1 GM TAB PO STA (12:09)
--- NOTE | 2023-12-24 12:33 | P.PN ---
Subjective Progress Note Date: 12/24/23 73-year-old male with a past medical history significant of atrial fibrillation, COPD, diabetes, open heart surgery, renal disease, iron deficiency anemia, and hypertension presented to ER via EMS with a chief complaint of shortness of breath. Patient states he started to experience shortness of breath last night with mild chest discomfort. He describes it as a "pain". He states the chest discomfort has since resolved. He does report a history of congestive heart failure. He does not normally wear oxygen at home. He denies any fevers, cough, congestion. He does state he tried 3 breathing treatments at home with no improvement of her symptoms which prompted him to call EMS. EMS states they found patient satting 84% on room air. He did receive 1 breathing treatment by EMS. He denies any abdominal pain, constipation/diarrhea, urinary complaints or peripheral edema. Chest x-ray is concerning for pneumonia; viral swabs are completed and are negative Blood work completed in ED reveals a WBC of 16.6, hemoglobin of 10.9 and platelet count of 140, sodium 135, potassium 4.4, BUNs/creatinine of 98/1.83 and blood glucose of 230 -Patient is placed on IV Rocephin and azithromycin in ED and is admitted to the hospital for further treatment Lab review shows improvement in white blood count from 16.6 yesterday down to 14.2, sodium has trended down to 130 from 136 yesterday; BUNs/creatinine worsening from 98/1.83 up to 86/2.3; blood cultures are positive -- We will start patient on IV fluids in form of normal saline at rate of 75 cc an hour; monitor strict JERICA's, daily weights, renal function electrolytes; avoid nephrotoxins; recommend consulting nephrology if renal function continues to worsen -ID on board and patient has been placed on IV vancomycin in addition to Zosyn and azithromycin 12/22. Patient seen and examined. States breathing is improved. Denies any fever or chills 12/23. Patient seen and examined. 2D echo done showed mild to moderate LV systolic dysfunction, severe pulmonary hypertension, mild to moderate aortic stenosis, severe tricuspid regurg, moderate to severe eccentric jet of mitral regurg. Ultrasound of kidneys done showed no abnormality REVIEW OF SYSTEMS: CONSTITUTIONAL: No fever, no malaise,. CARDIOVASCULAR: No chest pain, no palpitations, no syncope. PULMONARY: No shortness of breath, no cough, GASTROINTESTINAL: No diarrhea, no nausea, no vomiting, no abdominal pain. NEUROLOGICAL: No headaches, no weakness, PHYSICAL EXAMINATION: GENERAL: The patient is alert and oriented x3, not in any acute distress. Well developed, well nourished. HEENT: Pupils are round and equally reacting to light. EOMI. No scleral icterus. No conjunctival pallor. Normocephalic, atraumatic. No pharyngeal erythema. No thyromegaly. CARDIOVASCULAR: S1 and S2 present. No murmurs, rubs, or gallops. PULMONARY: Chest is clear to auscultation, no wheezing or crackles. ABDOMEN: Soft, nontender, nondistended, normoactive bowel sounds. No palpable organomegaly. MUSCULOSKELETAL: No joint swelling or deformity. EXTREMITIES: No cyanosis, clubbing, or pedal edema. NEUROLOGICAL: Gross neurological examination did not reveal any focal deficits. SKIN: No rashes. Assessment and plan Community-acquired pneumonial left lower lobe Left-sided pleural effusion; trace; likely parapneumonic; MRSA bacteremia Monitor vital signs monitor CBC Monitor CMP Blood cultures positive for MRSA. 2D echo done showed mild to moderate LV systolic dysfunction, severe pulmonary hypertension, mild to moderate aortic stenosis, severe tricuspid regurg, moderate to severe eccentric jet of mitral regurg. Continue IV Vancomycin ID following Acute renal injury Monitor BMP Ultrasound of kidney Continue IV fluid Consult nephrology Hyperbilirubinemia; monitor LFTs Hyperglycemia/diabetes mellitus; patient takes Victoza which can be continued upon discharge; will monitor Accu-Cheks q. CHS with insulin sliding scale Hypertension; monitor vital signs, hold blood pressure medications for now COPD; not in exacerbation; continue with home inhaler therapy Severe pulm hypertension Severe tricuspid regurg LV dysfunction Results of 2D echo noted Cardiology consulted SCOTT recommended Labs and medication were reviewed.. Continue same treatment. Continue with symptomatic treatment. Resume home medication. Monitor labs and vitals. DVT and GI prophylaxis. Further recommendations as per clinical course of the patient Dictation was produced using [employer] dictation software. please excuse any grammatical, word or spelling errors. Objective - Vital Signs Vital signs: Vital Signs Temp 98.2 F 12/24/23 07:13 Pulse 76 12/24/23 07:59 Resp 17 12/24/23 07:45 BP 100/62 12/24/23 07:13 Pulse Ox 95 12/24/23 07:49 FiO2 Intake & Output 12/23/23 12/24/23 12/24/23 18:59 06:59 18:59 Intake Total 1020 720 Output Total 200 Balance 1020 520 Intake: Oral 1020 720 Output: Urine 200 Other: Voiding Method Toilet Toilet # Voids 2 1 # Bowel Movements 1 1 1 - Labs CBC & Chem 7: 12/24/23 04:46 12/24/23 04:46 Labs: Abnormal Lab Results - Last 24 Hours (Table) 12/23/23 12/23/23 12/23/23 Range/Units 11:48 16:47 20:03 WBC (4.50-10.00) X 10*3/uL RBC (4.40-5.60) X 10*6/uL Hgb (13.0-17.0) g/dL Hct (39.6-50.0) % MCHC (32.0-37.0) g/dL RDW (11.5-14.5) % Plt Count (140-440) X 10*3/uL Immature Gran # (0.00-0.04) X 10*3/uL Lymphocytes # (0.90-5.00) X 10*3/uL Monocytes # (0.20-1.00) X 10*3/uL Sodium (137-145) mmol/L Carbon Dioxide (22-30) mmol/L BUN (9-20) mg/dL Creatinine (0.66-1.25) mg/dL Glucose (74-99) mg/dL POC Glucose (mg/dL) 259 H 277 H 237 H (70-110) mg/dL Calcium (8.4-10.2) mg/dL Total Protein (6.3-8.2) g/dL Albumin (3.5-5.0) g/dL 12/24/23 12/24/23 12/24/23 Range/Units 04:46 04:46 06:05 WBC 10.02 H (4.50-10.00) X 10*3/uL RBC 3.22 L (4.40-5.60) X 10*6/uL Hgb 9.4 L (13.0-17.0) g/dL Hct 30.0 L (39.6-50.0) % MCHC 31.3 L (32.0-37.0) g/dL RDW 15.9 H (11.5-14.5) % Plt Count 128 L (140-440) X 10*3/uL Immature Gran # 0.06 H (0.00-0.04) X 10*3/uL Lymphocytes # 0.64 L (0.90-5.00) X 10*3/uL Monocytes # 1.60 H (0.20-1.00) X 10*3/uL Sodium 127 L (137-145) mmol/L Carbon Dioxide 14 L (22-30) mmol/L BUN 96 H (9-20) mg/dL Creatinine 2.40 H (0.66-1.25) mg/dL Glucose 140 H (74-99) mg/dL POC Glucose (mg/dL) 179 H (70-110) mg/dL Calcium 8.2 L (8.4-10.2) mg/dL Total Protein 5.6 L (6.3-8.2) g/dL Albumin 3.3 L (3.5-5.0) g/dL Microbiology - Last 24 Hours (Table) 12/21/23 07:09 Blood Culture Gram Stain - Final Blood Blood Culture - Final Methicillin resist S. aureus 12/21/23 07:09 Blood Culture Gram Stain - Final Blood Blood Culture - Final Methicillin resist S. aureus Molecular ID 12/22/23 07:40 Blood Culture - Preliminary Blood
--- NOTE | 2023-12-24 13:19 | P.CRDCN ---
History of Present Illness Consult date: 12/24/23 History of present illness: History of present illness: This is a 73-year-old male patient of Dr. Man with past medical history of coronary artery disease status post three-vessel CABG with VG to diagonal 1, VG to OM1, VG to PDA, mitral valve repair April 2022, history of GI bleed, recurrent left-sided pleural effusion with Pleurx catheter and removal, hyperten eneida, hyperlipidemia, persistent atrial fibrillation maintained in sinus rhythm not on chronic anticoagulation due to risk of bleeding, chronic systolic heart failure, chronic kidney disease requiring dialysis for short period of time, chronic anemia. We have been asked to evaluate the patient for SCOTT. Patient presented to the hospital on with shortness of breath and has subsequently been seen by multiple consultants including infectious disease and nephrology. Patient has been diagnosed with acute kidney injury, hyponatremia, MRSA bacteremia, not on gap metabolic acidosis, and left lower lobe pneumonia. Due to MRSA bacteremia, we have been asked to perform SCOTT. Patient denies having an y chest pain. No shortness of breath at this time but he is on oxygen therapy. Patient does not have home oxygen therapy. Blood pressure 100/62, heart rate 65, pulse ox 95% on 2 L nasal cannula. EKG sinus rhythm with IVCD Echocardiogram performed 12/23/2023 reveals mild to moderate LV systolic dys function with EF 45 to 50%, severe pulmonary hypertension, mild to moderate aortic stenosis, severe TR. Moderate to severe eccentric jet of mitral regurgitation. Consider SCOTT to rule out vegetation. Chest x-ray: Airspace opacities project over the lung and lateral view. CT abdomen pelvis revealed left lower lung airspace consolidation correlate for pneumonia. Trace left pleural effusion. No acute intra abdominal process. Laboratory studies: WBC 10, hemoglobin 9.4, sodium 127, BUN 96 creatinine 2.4. proBNP 39,600 Home cardiac medications: Aspirin 81 mg daily, atorvastatin 80 mg at bedtime, Bumex 2 mg twice daily, metoprolol tartrate 12.5 mg twice daily, midodrine 5 mg daily as needed, spironolactone 50 mg daily. Cardiac catheterization performed 11/13/2021 revealed 30% LAD, 99% mid cir cumflex, 50% proximal OM1, 100% proximal RCA, right dominance. Exercise tolerance test performed 07/17/2022 was nondiagnostic, patient walked 3: 35 minutes. Review Of Systems: At the time of my evaluation: Constitutional: No fever, no chills. No weakness, fatigue or lethargy. EENT: No headache. No dizziness. Lungs: No shortness of breath, no cough, no sputum production. No wheezing. Cardiovascular: No chest pain, chronic mild lower extremity edema. No palpitations. No paroxysmal nocturnal dyspnea. No orthopnea. Abdominal: No abdominal pain. No nausea, vomiting. No diarrhea. No c onstipation. No bloody or tarry stools. Musculoskeletal: No myalgias. No muscle weakness, no frequent falls. Integumentary: No wounds. No rash. No unusual bruising. Neurologic: No aphasia. No facial droop. No change in mentation. Physical examination: Gen: This is a 73-year-old male appears to be in no acute distress. VS: reviewed HEENT: Head is atraumatic, normocephalic. Pupils equal, round. Sclerae is anicteric. LUNGS: Clear to auscultation. No intercostal retractions. HEART: Regular rate and rhythm. 4/6 systolic murmur and systolic ejection murmur. ABDOMEN: Soft No tenderness. EXTREMITIES: Bilateral lower extremity edema No calf tenderness. NEUROLOGICAL: Patient is awake, alert and oriented x3. Assessment: MRSA bacteremia Chronic systolic heart failure Persistent atrial fibrillation not on anticoagulation due to bleeding COPD Bilateral pleural effusions with history of left-sided Pleurx Coronary artery disease with previous CABG Valvular heart disease status post mitral valve repair Hypertension Hyperlipidemia Acute kidney injury and chronic kidney disease stage IIIb Chronic anemia Plan: Continue current cardiac medications: aspirin 81 mg daily, atorvastatin 80 mg hs, lopressor 12.5 mg bid, midodrine 5 mg daily prn Bumex and aldactone are on hold Patient will be scheduled for SCOTT tomorrow with Dr. Magda DRAKE after midnight Thank you kindly for this consultation. Nurse practitioner note has been reviewed, I agree with documented findings and plan of care. Patient was seen and examined. Past Medical History Past Medical History: Atrial Fibrillation, Coronary Artery Disease (CAD), COPD, Diabetes Mellitus, GI Bleed, Hearing Disorder / Deafness, Hyperlipidemia, Hypertension, Myocardial Infarction (ME), Renal Disease Additional Past Medical History / Comment(s): Previous bypass surgery, previous repair of the mitral valve, comp to get postoperative course requiring dialysis for renal failure and the patient also developed GI bleed requiring blood transfusions recent significant developed a chronic loculated left-sided pleural effusion. Other comorbidities include COPD, chronic systolic heart failure with an ejection fraction 4045%, hypertension, hyperlipidemia, paroxysmal A. fib Last Myocardial Infarction Date:: 11/2021 History of Any Multi-Drug Resistant Organisms: None Reported Past Surgical History: Back Surgery, Heart Catheterization With Stent, Joint Replacement, Orthopedic Surgery Additional Past Surgical History / Comment(s): BILATERAL KNEE REPLACEMENTS, BILATERAL SHOULDER SURGERY, ONE CARDIAC STENT, back surgery X2 (lumbar decompression and fusion), BACK INJECTIONS, COLONOSCOPY, BILATERAL CATARACTS REMOVED WITH LENS IMPLANTS, Cardioversion. ganglion cyst rt wrist removed Past Anesthesia/Blood Transfusion Reactions: No Reported Reaction Additional Past Anesthesia/Blood Transfusion Reaction / Comment(s): no issues with blood transfusions Date of Last Stent Placement:: 2000 Past Psychological History: No Psychological Hx Reported Smoking Status: Former smoker - Past Family History Father Family Medical History: No Reported History Mother Family Medical History: No Reported History Medications and Allergies Home Medications Medication Instructions Recorded Confirmed Type Fluticasone/Umeclidin/Vilanter 1 puff INHALATION RT-DAILY 11/09/21 12/21/23 History [Trelegy Ellipta 100-62.5-25] Aspirin 81 mg PO DAILY 05/19/22 12/21/23 History Liraglutide [Victoza 3-Casey] 1.8 mg SQ DAILY 10/17/22 12/21/23 History Atorvastatin [Lipitor] 80 mg PO HS 11/07/22 12/21/23 History Ipratropium/Albuter 20-100Mcg 1 puff INHALATION RT-QID PRN 11/07/22 12/21/23 History [Combivent Respimat 20-100Mcg Inhaler] Acetaminophen Tab [Tylenol] 650 mg PO Q6HR PRN tab 03/19/23 12/21/23 Rx Metoprolol Tartrate [Lopressor] 12.5 mg PO BID #0 03/19/23 12/21/23 Rx Spironolactone [Aldactone] 50 mg PO DAILY #30 tab 03/19/23 12/21/23 Rx allopurinoL 100 mg PO DAILY 07/02/23 12/21/23 History ALPRAZolam [Xanax] 0.25 - 0.5 mg PO DAILY PRN 12/21/23 12/21/23 History Ammonium Lactate Cream [Lac-Hydrin 1 applic TOPICAL BID PRN 12/21/23 12/21/23 History 12% Cream] Bumetanide [BUMEX] 2 mg PO BID 12/21/23 12/21/23 History Clobetasol Propionate [Temovate 1 applic TOPICAL BID PRN 12/21/23 12/21/23 History 0.05% Oint] Docusate [Colace] 100 mg PO BID 12/21/23 12/21/23 History HYDROcodone/APAP 10-325MG [[place] 1 tab PO BID PRN 12/21/23 12/21/23 History 10-325] Midodrine [ProAmatine] 5 mg PO DAILY PRN 12/21/23 12/21/23 History Vit C/E/Zn/Coppr/Lutein/Zeaxan 1 cap PO BID 12/21/23 12/21/23 History [Preservision Areds 2 Softgel] hydrOXYzine HCL [Atarax] 10 mg PO DAILY 12/21/23 12/21/23 History Allergies Allergy/AdvReac Type Severity Reaction Status Date / Time protamine Allergy Anaphylaxis Verified 12/21/23 13:47 apixaban [From Eliquis] AdvReac "stomach Verified 12/21/23 13:47 bleeds" dapagliflozin [From Farxiga] AdvReac Itching Verified 12/21/23 13:47 empagliflozin AdvReac Itching Verified 12/21/23 13:47 [From Jardiance] Physical Exam Vitals: Vital Signs Temp Pulse Pulse Resp BP BP Pulse Ox 12/24/23 07:59 76 12/24/23 07:49 75 95 12/24/23 07:45 65 17 12/24/23 07:13 98.2 F 65 17 100/62 93 L 12/24/23 00:53 98.2 F 68 17 101/65 97 12/23/23 21:55 73 96/61 95 12/23/23 21:50 73 97/58 12/23/23 20:49 73 20 97/58 95 12/23/23 20:00 51 L 100/52 12/23/23 19:52 97.5 F L 60 16 89/58 94 L 12/23/23 19:45 73 20 12/23/23 16:26 76 12/23/23 16:17 82 12/23/23 13:30 97.9 F 70 20 96/65 96 12/23/23 12:29 78 12/23/23 12:18 78 Intake and Output 12/23/23 12/24/23 12/24/23 22:59 06:59 14:59 Intake Total 500 520 720 Output Total 200 Balance 500 520 520 Intake: Oral 500 520 720 Output: Urine 200 Other: Voiding Method Toilet Toilet # Voids 1 1 # Bowel Movements 1 1 Results 12/24/23 04:46 12/24/23 04:46 Cardiac Enzymes 12/24/23 Range/Units 04:46 AST 56 (17-59) U/L CBC 12/24/23 Range/Units 04:46 WBC 10.02 H (4.50-10.00) X 10*3/uL RBC 3.22 L (4.40-5.60) X 10*6/uL Hgb 9.4 L (13.0-17.0) g/dL Hct 30.0 L (39.6-50.0) % Plt Count 128 L (140-440) X 10*3/uL Comprehensive Metabolic Panel 12/24/23 Range/Units 04:46 Sodium 127 L (137-145) mmol/L Potassium 4.8 (3.5-5.1) mmol/L Chloride 103 (98-107) mmol/L Carbon Dioxide 14 L (22-30) mmol/L BUN 96 H (9-20) mg/dL Creatinine 2.40 H (0.66-1.25) mg/dL Glucose 140 H (74-99) mg/dL Calcium 8.2 L (8.4-10.2) mg/dL AST 56 (17-59) U/L ALT 49 (4-49) U/L Alkaline Phosphatase 80 (38-126) U/L Total Protein 5.6 L (6.3-8.2) g/dL Albumin 3.3 L (3.5-5.0) g/dL Current Medications Generic Name Dose Route Start Last Admin Trade Name Freq PRN Reason Stop Dose Admin Acetaminophen 650 mg 12/21/23 17:44 12/24/23 08:28 Acetaminophen Tab 325 Mg Tab PO 650 mg Q6HR PRN Administration Mild Pain or Fever > 100.5 Hydrocodone Bitart/Acetaminophen 1 each 12/21/23 17:44 12/23/23 21:58 Hydrocodone/Apap 10-325mg 1 Each Tab PO 1 each BID PRN Administration Pain Allopurinol 100 mg 12/22/23 09:00 12/24/23 08:28 Allopurinol 100 Mg Tab PO 100 mg DAILY ZULMA Administration Alprazolam 0.5 mg 12/21/23 17:44 Alprazolam 0.5 Mg Tab PO DAILY PRN SLEEP/ANXIETY Aspirin 81 mg 12/22/23 09:00 12/24/23 08:28 Aspirin 81 Mg PO 81 mg DAILY ZULMA Administration Atorvastatin Calcium 80 mg 12/21/23 21:00 12/23/23 20:49 Atorvastatin 80 Mg Tab PO 80 mg HS ZULMA Administration Budesonide/Formoterol Fumarate 2 puff 12/21/23 20:00 12/24/23 07:49 Symbicort 80-4.5 Mcg Inhaler INHALATION 2 puff RT-BID ZULMA Administration Dextrose/Water 25 ml 12/21/23 12:03 Dextrose 50% Syringe 50 Ml IVP PER PROTOCOL PRN Hypoglycemia Protocol Dextrose/Water 50 ml 12/21/23 12:03 Dextrose 50% Syringe 50 Ml IVP PER PROTOCOL PRN Hypoglycemia Protocol Docusate Sodium 100 mg 12/21/23 21:00 12/24/23 08:28 Docusate 100 Mg Cap PO 100 mg BID ZULMA Administration Hydromorphone HCl 0.5 mg 12/21/23 08:26 12/22/23 16:21 Hydromorphone 0.5 Mg/0.5 Ml Syringe IVP 0.5 mg Q4HR PRN Administration Pain Hydroxyzine HCl 10 mg 12/22/23 09:00 12/24/23 08:28 Hydroxyzine Hcl 10 Mg Tab PO 10 mg DAILY ZULMA Administration Vancomycin HCl 1,250 mg/ 250 mls @ 125 mls/hr 12/24/23 10:00 12/24/23 09:41 Sodium Chloride IVPB 12/24/23 11:59 125 mls/hr ONCE ONE Administration Insulin Aspart 0 unit 12/21/23 12:30 12/24/23 06:32 Insulin Aspart (Novolog) 100 Unit/Ml Vial SQ 2 unit ACHS ZULMA Administration Protocol Ipratropium Wallace 0.5 mg 12/22/23 08:00 12/24/23 07:48 Ipratropium 0.5 Mg/2.5 Ml Nebu INHALATION 0.5 mg RT-QID ZULMA Administration Metoprolol Tartrate 12.5 mg 12/21/23 21:00 12/24/23 08:28 Metoprolol Tartrate 12.5 Mg Tab PO 12.5 mg BID ZULMA Administration Midodrine 5 mg 12/21/23 17:44 Midodrine 5 Mg Tab PO DAILY PRN BP <110 Miscellaneous Information 1 each 12/22/23 07:20 Vancomycin Iv Per Pharmacy 1 Each Misc MISCELLANE DIRECTED PRN Per Protocol Protocol Naloxone HCl 0.2 mg 12/21/23 08:06 Naloxone 0.4 Mg/Ml 1 Ml Vial IV Q2M PRN Opioid Reversal Ondansetron HCl 4 mg 12/21/23 08:06 Ondansetron 4 Mg/2 Ml Vial IVP Q8HR PRN Nausea And Vomiting Sodium Bicarbonate 650 mg 12/24/23 16:00 Sodium Bicarbonate Tab 650 Mg Tab PO TID ZULMA Intake and Output 12/23/23 12/24/23 12/24/23 22:59 06:59 14:59 Intake Total 500 520 720 Output Total 200 Balance 500 520 520 Intake: Oral 500 520 720 Output: Urine 200 Other: Voiding Method Toilet Toilet # Voids 1 1 # Bowel Movements 1 1 12/24/23 04:46 12/24/23 04:46
[2023-12-24] MEDS: SODIUM BICARBONATE TAB 650 MG TAB PO SCH (16:04)
--- NOTE | 2023-12-24 16:20 | P.PN ---
Subjective Progress Note Date: 12/24/23 Principal diagnosis: Reason for follow-up is pneumonia and MRSA bacteremia Patient is a 73-year-old male with a past medical history significant for diabetes mellitus hypertension hyperlipidemia [place] atrial fibrillation coronary artery disease patient presenting to the hospital complaining of shortness of breath there was concern for possible pneumonia with abdominal distention CT was done did not show any abdominal process confirming left lower lobe pneumonia blood cultures are positive with MRSA. On today's evaluation that is 12/24/2023, the patient continues to be afebrile, the patient is on 2 L current oxygen and breathing comfortably, the Pt denies having any chest pain patient cough has decreased in intensity, the patient denies having any abdominal pain no vomiting or any diarrhea has been reported by the nursing staff. Patient white count is 10.2 and creatinine 2.40 Vicryl running was 15 point 5 repeat blood and sputum cultures currently pending Objective - Vital Signs Vital signs: Vital Signs Temp 98.2 F 12/24/23 07:13 Pulse 76 12/24/23 07:59 Resp 17 12/24/23 07:45 BP 100/62 12/24/23 07:13 Pulse Ox 95 12/24/23 07:49 FiO2 Intake & Output 12/23/23 12/24/23 12/24/23 18:59 06:59 18:59 Intake Total 1020 720 Output Total 200 Balance 1020 520 Intake: Oral 1020 720 Output: Urine 200 Other: Voiding Method Toilet Toilet # Voids 2 1 # Bowel Movements 1 1 1 - Exam GENERAL DESCRIPTION: An elderly male up in the chair in no distress RESPIRATORY SYSTEM: Unlabored breathing , decreased breath sounds at bases HEART: S1 S2 regular rate and rhythm , ABDOMEN: Soft , no tenderness EXTREMITIES: No edema feet - Labs CBC & Chem 7: 12/24/23 04:46 12/24/23 04:46 Labs: Abnormal Lab Results - Last 24 Hours (Table) 12/23/23 12/23/23 12/24/23 Range/Units 16:47 20:03 04:46 WBC (4.50-10.00) X 10*3/uL RBC (4.40-5.60) X 10*6/uL Hgb (13.0-17.0) g/dL Hct (39.6-50.0) % MCHC (32.0-37.0) g/dL RDW (11.5-14.5) % Plt Count (140-440) X 10*3/uL Immature Gran # (0.00-0.04) X 10*3/uL Lymphocytes # (0.90-5.00) X 10*3/uL Monocytes # (0.20-1.00) X 10*3/uL Sodium 127 L (137-145) mmol/L Carbon Dioxide 14 L (22-30) mmol/L BUN 96 H (9-20) mg/dL Creatinine 2.40 H (0.66-1.25) mg/dL Glucose 140 H (74-99) mg/dL POC Glucose (mg/dL) 277 H 237 H (70-110) mg/dL Calcium 8.2 L (8.4-10.2) mg/dL Total Protein 5.6 L (6.3-8.2) g/dL Albumin 3.3 L (3.5-5.0) g/dL 12/24/23 12/24/23 12/24/23 Range/Units 04:46 06:05 11:45 WBC 10.02 H (4.50-10.00) X 10*3/uL RBC 3.22 L (4.40-5.60) X 10*6/uL Hgb 9.4 L (13.0-17.0) g/dL Hct 30.0 L (39.6-50.0) % MCHC 31.3 L (32.0-37.0) g/dL RDW 15.9 H (11.5-14.5) % Plt Count 128 L (140-440) X 10*3/uL Immature Gran # 0.06 H (0.00-0.04) X 10*3/uL Lymphocytes # 0.64 L (0.90-5.00) X 10*3/uL Monocytes # 1.60 H (0.20-1.00) X 10*3/uL Sodium (137-145) mmol/L Carbon Dioxide (22-30) mmol/L BUN (9-20) mg/dL Creatinine (0.66-1.25) mg/dL Glucose (74-99) mg/dL POC Glucose (mg/dL) 179 H 274 H (70-110) mg/dL Calcium (8.4-10.2) mg/dL Total Protein (6.3-8.2) g/dL Albumin (3.5-5.0) g/dL Microbiology - Last 24 Hours (Table) 12/23/23 03:58 Blood Culture - Preliminary Blood 12/21/23 07:09 Blood Culture Gram Stain - Final Blood Blood Culture - Final Methicillin resist S. aureus 12/21/23 07:09 Blood Culture Gram Stain - Final Blood Blood Culture - Final Methicillin resist S. aureus Molecular ID 12/22/23 07:40 Blood Culture - Preliminary Blood Assessment and Plan (1) Pneumonia Current Visit: Yes Status: Acute Code(s): J18.9 - PNEUMONIA, UNSPECIFIED ORGANISM SNOMED Code(s): 058218981 (2) Sepsis Current Visit: Yes Status: Acute Code(s): A41.9 - SEPSIS, UNSPECIFIED ORGANISM SNOMED Code(s): 60650693 Plan: 1patient presented hospital with sepsis in this patient who did have a fever elevated white count meeting currently for SIRS source possible pneumonia ho wever the patient also have predominantly abdominal symptom of nausea and vomiting did have some abdominal distention underlying abdominal source not entirely excluded 2-patient did have CT of abdominal pelvis with oral contrast only did not show any intra-abdominal process to confirm left lower lobe pneumonia 3patient with MRSA bacteremia source likely pneumonia transthoracic echo did show some valvular abnor echocardiogrammality SCOTT has been ordered scheduled for tomorrow 4patient to continue with vancomycin pharmacy to dose while watching kidney function closely Dictation was produced using [employer] dictation software. please excuse any grammatical, word or spelling errors. Time with Patient: Less than 30
[2023-12-24 16:39] LABS: Glucose,Whole Blood 266 mg/dL (70-110)
[2023-12-24 16:54] LABS: Appearance,Urine Cloudy (Clear); Bacteria,Urine Rare /hpf; Bilirubin,Urine Negative (Negative); Blood,Urine Large (Negative); Color,Urine Yellow; Glucose,Urine (UA) Negative (Negative); Hyaline Casts,Urine 3 /lpf (0-2); Ketones,Urine Negative (Negative); Leukocyte Esterase,Urine Large (Negative); Mucus,Urine Rare /hpf; Nitrite,Urine Negative (Negative); Protein,Urine Trace (Negative); RBC,Urine >182 /hpf (0-5); Specific Gravity,Urine 1.015 (1.001-1.035); Squamous Epithelial Cell,Urine <1 /hpf (0-4); Urobilinogen,Urine <2.0 mg/dL (<2.0); WBC,Urine 38 /hpf (0-5)
[2023-12-24 21:33] LABS: Glucose,Whole Blood 143 mg/dL (70-110)
[2023-12-24] MEDS ORDERED: SODIUM CHLORIDE 0.9% 1,000 ML IV SCH (22:00)
[2023-12-25] MEDS: FUROSEMIDE 10 MG/ML 2 ML VIAL IV STA (00:38)
[2023-12-25 06:12] LABS: Glucose,Whole Blood 174 mg/dL (70-110)
[2023-12-25] MEDS ORDERED: fentaNYL (PF) 50 MCG/ML 2 ML AMP ONE (06:40)
[2023-12-25] MEDS: BENZOCAINE SPRAY 1 CAN TOPICAL ONE (07:01)
[2023-12-25] MEDS: fentaNYL (PF) 50 MCG/1 ML VIAL IVP ONE (07:16)
[2023-12-25] MEDS: MIDAZOLAM 2 MG/2 ML VIAL IVP ONE (07:16)
--- NOTE | 2023-12-25 07:37 | P.PCN ---
Date of Procedure: 12/25/23 Description of Procedure: Indication: Endocarditis Procedure Description: After explaining the procedure to the patient, it's risk and complications, blood pressure, heart rate and O2 saturation were monitored. The throat was sprayed with Cetacaine. Patient received 2 mg intravenous Versed, 50 mcg intravenous fentanyl. The probe was introduced into the esophagus without difficulty. Images were obtained. Following that, the probe was removed. There was no immediate complication. Findings: Biatrial enlargement was noted, the left atrial appendage was closed. The left ventricle systolic function is mildly impaired with inferior wall hypokinesis, ejection fraction 45 to 50%. The aortic valve is a tricuspid valve with fibrocalcific changes. Mitral annuloplasty was noted with no evidence of vegetation on the mitral valve. The tricuspid valve appears to be normal. Pulmonic valve appears to be normal. No pericardial fusion was noted. Contrast bubble study revealed no shunting across the interatrial septum with Valsalva maneuver. Moderate atherosclerotic changes of the descending thoracic aorta was noted. Doppler: Pulse wave and color Doppler were obtained, and revealed moderate severe mitral with severe tricuspid regurgitation and severe pulmonary hypertension. Pulmonary pressures estimated at 60 mmHg. There was mild aortic and pulmonic regurgitation. No shunting by color Doppler study was noted. Conclusion: 1. Biatrial enlargement 2. Mildly impaired left ventricle systolic function 3. Evidence of mitral valve annuloplasty with no evidence of vegetations and moderate to severe mitral regurgitation 4. Severe tricuspid regurgitation with severe pulmonary hypertension and no evidence of vegetations 5. Moderate calcification of the aortic valve with mild aortic regurgitation 6. Mild pulmonic regurgitation 7. No evidence of vegetations 8. No shunting across the interatrial septum
[2023-12-25] MEDS: SODIUM CHLORIDE 0.9% 1,000 ML IV SCH (10:50)
[2023-12-25 11:26] LABS: Glucose,Whole Blood 294 mg/dL (70-110)
[2023-12-25 11:40] LABS: ALT 62 U/L (4-49); AST 68 U/L (17-59); African American GFR (CKD) 28 (>60 ml/min/1.73 sqM); Albumin 3.7 g/dL (3.5-5.0); Albumin/Globulin Ratio 1.6; Alkaline Phosphatase 103 U/L (38-126); Anion Gap 11 mmol/L; Blood Urea Nitrogen 99 mg/dL (9-20); Calcium 8.3 mg/dL (8.4-10.2); Carbon Dioxide 15 mmol/L (22-30); Chloride 103 mmol/L (98-107); Globulin 2.3 g/dL; Glucose 168 mg/dL (74-99); Non-African American GFR(CKD) 24 (>60 ml/min/1.73 sqM); Potassium 4.9 mmol/L (3.5-5.1); Sodium 129 mmol/L (137-145); Total Bilirubin 1.4 mg/dL (0.2-1.3)
--- NOTE | 2023-12-25 12:13 | P.PN ---
Subjective patient is seen for follow-up for hyponatremia. He appears hypervolemic. Saline has been discontinued. Patient also received a dose of IV Lasix last night. Sodium has improved to 129 from 125 last night. no significant complaints today. Serum creatinine at 2.5 mg/dL. Objective - Vital Signs Vital signs: Vital Signs Temp 97.6 F 12/25/23 07:44 Pulse 68 12/25/23 08:57 Resp 19 12/25/23 07:44 BP 100/65 12/25/23 07:44 Pulse Ox 94 L 12/25/23 08:43 FiO2 Intake & Output 12/24/23 12/25/23 12/25/23 18:59 06:59 18:59 Intake Total 1870 Output Total 313 300 Balance 1557 -300 Intake: Intake, IV Titration 600 Amount Sodium Chloride 0.9% 1, 600 000 ml @ 75 mls/hr IV . [id number] [facility] Rx#:[id number] Oral 1270 Output: Urine 200 300 Post Void Residual 113 Other: Voiding Method Toilet Toilet Urinal # Voids 1 # Bowel Movements 1 - Exam patient is awake, comfortable, no acute distress. Examination of the heart S1 and S2 Examination of the lungs bilateral breath sounds are heard Abdomen is soft nontender Examination of lower extremities shows 1+ edema bilaterally DESIGN CHECKER exam grossly intact - Labs CBC & Chem 7: 12/24/23 04:46 12/25/23 10:58 Labs: Abnormal Lab Results - Last 24 Hours (Table) 12/22/23 12/24/23 12/24/23 Range/Units 04:35 11:30 11:30 Sodium (137-145) mmol/L Carbon Dioxide (22-30) mmol/L BUN (9-20) mg/dL Creatinine (0.66-1.25) mg/dL Glucose (74-99) mg/dL POC Glucose (mg/dL) (70-110) mg/dL Calcium (8.4-10.2) mg/dL Total Bilirubin (0.2-1.3) mg/dL AST (17-59) U/L ALT (4-49) U/L Total Protein (6.3-8.2) g/dL Procalcitonin 1.20 H (0.02-0.09) ng/mL Urine Protein (Negative) Urine Blood (Negative) Ur Leukocyte Esterase (Negative) Urine RBC (0-5) /hpf Urine WBC (0-5) /hpf Urine WBC Clumps (None) /hpf Urine Bacteria (None) /hpf Hyaline Casts (0-2) /lpf Urine Mucus (None) /hpf Urine Osmolality 362 L (400-1100) mOsm/kg Ur Random Sodium <20 L (40-220) mmol/L 12/24/23 12/24/23 12/24/23 Range/Units 11:30 16:38 17:46 Sodium 125 L (137-145) mmol/L Carbon Dioxide (22-30) mmol/L BUN (9-20) mg/dL Creatinine (0.66-1.25) mg/dL Glucose (74-99) mg/dL POC Glucose (mg/dL) 266 H (70-110) mg/dL Calcium (8.4-10.2) mg/dL Total Bilirubin (0.2-1.3) mg/dL AST (17-59) U/L ALT (4-49) U/L Total Protein (6.3-8.2) g/dL Procalcitonin (0.02-0.09) ng/mL Urine Protein Trace H (Negative) Urine Blood Large H (Negative) Ur Leukocyte Esterase Large H (Negative) Urine RBC >182 H (0-5) /hpf Urine WBC 38 H (0-5) /hpf Urine WBC Clumps Few H (None) /hpf Urine Bacteria Rare H (None) /hpf Hyaline Casts 3 H (0-2) /lpf Urine Mucus Rare H (None) /hpf Urine Osmolality (400-1100) mOsm/kg Ur Random Sodium (40-220) mmol/L 12/24/23 12/25/23 12/25/23 Range/Units 21:30 06:10 10:58 Sodium 129 L (137-145) mmol/L Carbon Dioxide 15 L (22-30) mmol/L BUN 99 H (9-20) mg/dL Creatinine 2.50 H (0.66-1.25) mg/dL Glucose 168 H (74-99) mg/dL POC Glucose (mg/dL) 143 H 174 H (70-110) mg/dL Calcium 8.3 L (8.4-10.2) mg/dL Total Bilirubin 1.4 H (0.2-1.3) mg/dL AST 68 H (17-59) U/L ALT 62 H (4-49) U/L Total Protein 6.0 L (6.3-8.2) g/dL Procalcitonin (0.02-0.09) ng/mL Urine Protein (Negative) Urine Blood (Negative) Ur Leukocyte Esterase (Negative) Urine RBC (0-5) /hpf Urine WBC (0-5) /hpf Urine WBC Clumps (None) /hpf Urine Bacteria (None) /hpf Hyaline Casts (0-2) /lpf Urine Mucus (None) /hpf Urine Osmolality (400-1100) mOsm/kg Ur Random Sodium (40-220) mmol/L 12/25/23 Range/Units 11:25 Sodium (137-145) mmol/L Carbon Dioxide (22-30) mmol/L BUN (9-20) mg/dL Creatinine (0.66-1.25) mg/dL Glucose (74-99) mg/dL POC Glucose (mg/dL) 294 H (70-110) mg/dL Calcium (8.4-10.2) mg/dL Total Bilirubin (0.2-1.3) mg/dL AST (17-59) U/L ALT (4-49) U/L Total Protein (6.3-8.2) g/dL Procalcitonin (0.02-0.09) ng/mL Urine Protein (Negative) Urine Blood (Negative) Ur Leukocyte Esterase (Negative) Urine RBC (0-5) /hpf Urine WBC (0-5) /hpf Urine WBC Clumps (None) /hpf Urine Bacteria (None) /hpf Hyaline Casts (0-2) /lpf Urine Mucus (None) /hpf Urine Osmolality (400-1100) mOsm/kg Ur Random Sodium (40-220) mmol/L Microbiology - Last 24 Hours (Table) 12/22/23 07:40 Blood Culture - Preliminary Blood 12/23/23 12:21 Gram Stain - Preliminary Sputum 12/23/23 03:58 Blood Culture - Preliminary Blood 12/21/23 07:09 Blood Culture Gram Stain - Final Blood Blood Culture - Final Methicillin resist S. aureus 12/21/23 07:09 Blood Culture Gram Stain - Final Blood Blood Culture - Final Methicillin resist S. aureus Molecular ID Assessment and Plan Assessment: 1. Acute kidney injury, ATN secondary to hypotension, nonoliguric. UA shows trace protein WBCs 38 large blood. No obstruction noted on ultrasound of the kidneys on 12/23/2023. 2. Hyponatremia worsening with saline administration. patient appears hypervolemic. I will discontinue the IV fluids for now. urine osmolality at 362 with random urine sodium less than 20 which can be seen in CHF. 3. MRSA bacteremia, source is likely pneumonia. Maintained on IV vancomycin. 4. Non-gap metabolic acidosis associated with acute kidney injury. 5. 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 Plan: continue off of IV fluids. Diurese patient Repeat sodium in a.m. Continue with oral sodium bicarb. Maintain off of sodium chloride tabs due to hypevolemia.
[2023-12-25] MEDS: FUROSEMIDE 20 MG TAB PO SCH (12:19)
--- NOTE | 2023-12-25 13:13 | P.PN ---
Subjective Progress Note Date: 12/25/23 73-year-old male with a past medical history significant of atrial fibrillation, COPD, diabetes, open heart surgery, renal disease, iron deficiency anemia, and hypertension presented to ER via EMS with a chief complaint of shortness of breath. Patient states he started to experience shortness of breath last night with mild chest discomfort. He describes it as a "pain". He states the chest discomfort has since resolved. He does report a history of congestive heart failure. He does not normally wear oxygen at home. He denies any fevers, cough, congestion. He does state he tried 3 breathing treatments at home with no improvement of her symptoms which prompted him to call EMS. EMS states they found patient satting 84% on room air. He did receive 1 breathing treatment by EMS. He denies any abdominal pain, constipation/diarrhea, urinary complaints or peripheral edema. Chest x-ray is concerning for pneumonia; viral swabs are completed and are negative Blood work completed in ED reveals a WBC of 16.6, hemoglobin of 10.9 and platelet count of 140, sodium 135, potassium 4.4, BUNs/creatinine of 98/1.83 and blood glucose of 230 -Patient is placed on IV Rocephin and azithromycin in ED and is admitted to the hospital for further treatment Lab review shows improvement in white blood count from 16.6 yesterday down to 14.2, sodium has trended down to 130 from 136 yesterday; BUNs/creatinine worsening from 98/1.83 up to 86/2.3; blood cultures are positive -- We will start patient on IV fluids in form of normal saline at rate of 75 cc an hour; monitor strict JERICA's, daily weights, renal function electrolytes; avoid nephrotoxins; recommend consulting nephrology if renal function continues to worsen -ID on board and patient has been placed on IV vancomycin in addition to Zosyn and azithromycin 12/22. Patient seen and examined. States breathing is improved. Denies any fever or chills 12/23. Patient seen and examined. 2D echo done showed mild to moderate LV systolic dysfunction, severe pulmonary hypertension, mild to moderate aortic stenosis, severe tricuspid regurg, moderate to severe eccentric jet of mitral regurg. Ultrasound of kidneys done showed no abnormality 12/24. Patient seen and examined. Denies any chest pain. Denies any shortness of breath REVIEW OF SYSTEMS: CONSTITUTIONAL: No fever, no malaise,. CARDIOVASCULAR: No chest pain, no palpitations, no syncope. PULMONARY: No shortness of breath, no cough, GASTROINTESTINAL: No diarrhea, no nausea, no vomiting, no abdominal pain. NEUROLOGICAL: No headaches, no weakness, PHYSICAL EXAMINATION: GENERAL: The patient is alert and oriented x3, not in any acute distress. Well developed, well nourished. HEENT: Pupils are round and equally reacting to light. EOMI. No scleral icterus. No conjunctival pallor. Normocephalic, atraumatic. No pharyngeal erythema. No thyromegaly. CARDIOVASCULAR: S1 and S2 present. PULMONARY: Chest is clear to auscultation, no wheezing or crackles. ABDOMEN: Soft, nontender, nondistended, normoactive bowel sounds. No palpable organomegaly. MUSCULOSKELETAL: No joint swelling or deformity. EXTREMITIES: No cyanosis, clubbing, or pedal edema. NEUROLOGICAL: Gross neurological examination did not reveal any focal deficits. SKIN: No rashes. Assessment and plan Community-acquired pneumonial left lower lobe Left-sided pleural effusion; trace; likely parapneumonic; MRSA bacteremia Monitor vital signs monitor CBC Monitor CMP Blood cultures positive for MRSA. 2D echo done showed mild to moderate LV systolic dysfunction, severe pulmonary hypertension, mild to moderate aortic stenosis, severe tricuspid regurg, moderate to severe eccentric jet of mitral regurg. Continue IV Vancomycin ID following Acute renal injury Monitor BMP Ultrasound of kidney Nephrology following Hyperbilirubinemia; monitor LFTs Hyperglycemia/diabetes mellitus; patient takes Victoza which can be continued upon discharge; will monitor Accu-Cheks q. CHS with insulin sliding scale Hypertension; monitor vital signs, hold blood pressure medications for now COPD; not in exacerbation; continue with home inhaler therapy Severe pulm hypertension Severe tricuspid regurg LV dysfunction Results of 2D echo noted Cardiology following Labs and medication were reviewed.. Continue same treatment. Continue with symptomatic treatment. Resume home medication. Monitor labs and vitals. DVT and GI prophylaxis. Further recommendations as per clinical course of the patient Dictation was produced using [employer] dictation software. please excuse any grammatical, word or spelling errors. Objective - Vital Signs Vital signs: Vital Signs Temp 97.6 F 12/25/23 07:44 Pulse 70 12/25/23 12:23 Resp 19 12/25/23 07:44 BP 100/65 07/24/24 07:44 Pulse Ox 94 L 12/25/23 08:43 FiO2 Intake & Output 12/24/23 12/25/23 12/25/23 18:59 06:59 18:59 Intake Total 1870 Output Total 313 300 Balance 1557 -300 Intake: Intake, IV Titration 600 Amount Sodium Chloride 0.9% 1, 600 000 ml @ 75 mls/hr IV . [id number] [facility] Rx#:[id number] Oral 1270 Output: Urine 200 300 Post Void Residual 113 Other: Voiding Method Toilet Toilet Urinal # Voids 1 # Bowel Movements 1 - Labs CBC & Chem 7: 12/24/23 04:46 12/25/23 10:58 Labs: Abnormal Lab Results - Last 24 Hours (Table) 12/22/23 12/24/23 12/24/23 Range/Units 04:35 11:30 11:30 Sodium (137-145) mmol/L Carbon Dioxide (22-30) mmol/L BUN (9-20) mg/dL Creatinine (0.66-1.25) mg/dL Glucose (74-99) mg/dL POC Glucose (mg/dL) (70-110) mg/dL Calcium (8.4-10.2) mg/dL Total Bilirubin (0.2-1.3) mg/dL AST (17-59) U/L ALT (4-49) U/L Total Protein (6.3-8.2) g/dL Procalcitonin 1.20 H (0.02-0.09) ng/mL Urine Protein (Negative) Urine Blood (Negative) Ur Leukocyte Esterase (Negative) Urine RBC (0-5) /hpf Urine WBC (0-5) /hpf Urine WBC Clumps (None) /hpf Urine Bacteria (None) /hpf Hyaline Casts (0-2) /lpf Urine Mucus (None) /hpf Urine Osmolality 362 L (400-1100) mOsm/kg Ur Random Sodium <20 L (40-220) mmol/L 12/24/23 12/24/23 12/24/23 Range/Units 11:30 16:38 17:46 Sodium 125 L (137-145) mmol/L Carbon Dioxide (22-30) mmol/L BUN (9-20) mg/dL Creatinine (0.66-1.25) mg/dL Glucose (74-99) mg/dL POC Glucose (mg/dL) 266 H (70-110) mg/dL Calcium (8.4-10.2) mg/dL Total Bilirubin (0.2-1.3) mg/dL AST (17-59) U/L ALT (4-49) U/L Total Protein (6.3-8.2) g/dL Procalcitonin (0.02-0.09) ng/mL Urine Protein Trace H (Negative) Urine Blood Large H (Negative) Ur Leukocyte Esterase Large H (Negative) Urine RBC >182 H (0-5) /hpf Urine WBC 38 H (0-5) /hpf Urine WBC Clumps Few H (None) /hpf Urine Bacteria Rare H (None) /hpf Hyaline Casts 3 H (0-2) /lpf Urine Mucus Rare H (None) /hpf Urine Osmolality (400-1100) mOsm/kg Ur Random Sodium (40-220) mmol/L 12/24/23 12/25/23 12/25/23 Range/Units 21:30 06:10 10:58 Sodium 129 L (137-145) mmol/L Carbon Dioxide 15 L (22-30) mmol/L BUN 99 H (9-20) mg/dL Creatinine 2.50 H (0.66-1.25) mg/dL Glucose 168 H (74-99) mg/dL POC Glucose (mg/dL) 143 H 174 H (70-110) mg/dL Calcium 8.3 L (8.4-10.2) mg/dL Total Bilirubin 1.4 H (0.2-1.3) mg/dL AST 68 H (17-59) U/L ALT 62 H (4-49) U/L Total Protein 6.0 L (6.3-8.2) g/dL Procalcitonin (0.02-0.09) ng/mL Urine Protein (Negative) Urine Blood (Negative) Ur Leukocyte Esterase (Negative) Urine RBC (0-5) /hpf Urine WBC (0-5) /hpf Urine WBC Clumps (None) /hpf Urine Bacteria (None) /hpf Hyaline Casts (0-2) /lpf Urine Mucus (None) /hpf Urine Osmolality (400-1100) mOsm/kg Ur Random Sodium (40-220) mmol/L 07/24/24 Range/Units 11:25 Sodium (137-145) mmol/L Carbon Dioxide (22-30) mmol/L BUN (9-20) mg/dL Creatinine (0.66-1.25) mg/dL Glucose (74-99) mg/dL POC Glucose (mg/dL) 294 H (70-110) mg/dL Calcium (8.4-10.2) mg/dL Total Bilirubin (0.2-1.3) mg/dL AST (17-59) U/L ALT (4-49) U/L Total Protein (6.3-8.2) g/dL Procalcitonin (0.02-0.09) ng/mL Urine Protein (Negative) Urine Blood (Negative) Ur Leukocyte Esterase (Negative) Urine RBC (0-5) /hpf Urine WBC (0-5) /hpf Urine WBC Clumps (None) /hpf Urine Bacteria (None) /hpf Hyaline Casts (0-2) /lpf Urine Mucus (None) /hpf Urine Osmolality (400-1100) mOsm/kg Ur Random Sodium (40-220) mmol/L Microbiology - Last 24 Hours (Table) 12/23/23 03:58 Blood Culture - Preliminary Blood 12/22/23 07:40 Blood Culture - Preliminary Blood 12/23/23 12:21 Gram Stain - Preliminary Sputum 12/21/23 07:09 Blood Culture Gram Stain - Final Blood Blood Culture - Final Methicillin resist S. aureus 12/21/23 07:09 Blood Culture Gram Stain - Final Blood Blood Culture - Final Methicillin resist S. aureus Molecular ID
[2023-12-25 16:40] LABS: Glucose,Whole Blood 255 mg/dL (70-110)
[2023-12-25] MEDS: VANCOMYCIN 1,250 MG in SODIUM CHLORIDE 0.9% 250 ML IVPB ONE (16:42)
[2023-12-25 20:52] LABS: Glucose,Whole Blood 220 mg/dL (70-110)
[2023-12-25] MEDS: ONDANSETRON 4 MG/2 ML VIAL IVP PRN (21:22)
[2023-12-26 06:21] LABS: Glucose,Whole Blood 164 mg/dL (70-110)
[2023-12-26 11:03] LABS: Glucose,Whole Blood 186 mg/dL (70-110)
[2023-12-26 11:27] LABS: African American GFR (CKD) 28 (>60 ml/min/1.73 sqM); Anion Gap 7 mmol/L; Blood Urea Nitrogen 95 mg/dL (9-20); Calcium 8.4 mg/dL (8.4-10.2); Carbon Dioxide 20 mmol/L (22-30); Chloride 101 mmol/L (98-107); Glucose 158 mg/dL (74-99); Non-African American GFR(CKD) 24 (>60 ml/min/1.73 sqM); Potassium 4.8 mmol/L (3.5-5.1); Sodium 128 mmol/L (137-145)
[2023-12-26] MEDS: SODIUM CHLORIDE 0.65% NASAL SPRAY 44 ML BTL NASAL PRN (11:51)
--- NOTE | 2023-12-26 13:07 | P.PN ---
Subjective patient is seen for follow-up for hyponatremia. Improved with diuresis no significant complaints today. Serum creatinine staying at 2.5 mg/dL. Objective - Vital Signs Vital signs: Vital Signs Temp 97.8 F 12/26/23 07:00 Pulse 66 12/26/23 11:20 Resp 18 12/26/23 07:00 BP 106/65 12/26/23 07:00 Pulse Ox 95 12/26/23 08:32 FiO2 Intake & Output 12/25/23 12/26/23 12/26/23 18:59 06:59 18:59 Output Total 450 Balance -450 Output: Urine 450 Other: Voiding Method Toilet Urinal # Voids 2 # Bowel Movements 2 - Exam patient is awake, comfortable, no acute distress. Examination of the heart S1 and S2 Examination of the lungs bilateral breath sounds are heard Abdomen is soft nontender Examination of lower extremities shows 1+ edema bilaterally PST MANAGER exam grossly intact - Labs CBC & Chem 7: 12/24/23 04:46 12/26/23 10:50 Labs: Abnormal Lab Results - Last 24 Hours (Table) 12/25/23 12/25/23 12/26/23 Range/Units 16:38 20:51 06:20 Sodium (137-145) mmol/L Carbon Dioxide (22-30) mmol/L BUN (9-20) mg/dL Creatinine (0.66-1.25) mg/dL Glucose (74-99) mg/dL POC Glucose (mg/dL) 255 H 220 H 164 H (70-110) mg/dL 12/26/23 12/26/23 Range/Units 10:50 11:02 Sodium 128 L (137-145) mmol/L Carbon Dioxide 20 L (22-30) mmol/L BUN 95 H (9-20) mg/dL Creatinine 2.50 H (0.66-1.25) mg/dL Glucose 158 H (74-99) mg/dL POC Glucose (mg/dL) 186 H (70-110) mg/dL Microbiology - Last 24 Hours (Table) 12/23/23 03:58 Blood Culture - Preliminary Blood 12/23/23 12:21 Gram Stain - Final Sputum Sputum Culture - Final Margo albicans Escherichia coli 12/22/23 07:40 Blood Culture - Preliminary Blood Assessment and Plan Assessment: 1. Acute kidney injury, ATN secondary to hypotension, nonoliguric. UA shows trace protein WBCs 38 large blood. No obstruction noted on ultrasound of the kidneys on 12/23/2023. 2. Hyponatremia worsening with saline administration. Hypervolemic and improved with diuresis. urine osmolality at 362 with random urine sodium less than 20 which can be seen in CHF. 3. MRSA bacteremia, source is likely pneumonia. Maintained on IV vancomycin. 4. Non-gap metabolic acidosis associated with acute kidney injury. 5. 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 Plan: continue off of IV fluids. Increase Lasix Repeat sodium in a.m. Continue with oral sodium bicarb.
[2023-12-26] MEDS: FUROSEMIDE 10 MG/ML 4 ML VIAL IV STA (14:06)
[2023-12-26] MEDS: AMOXIC-POT CLAV 500-125 MG 1 EACH TAB PO SCH (14:06)
[2023-12-26 14:41] VITALS: BMI 23.6
--- NOTE | 2023-12-26 15:39 | P.PN ---
Progress Note - Text Progress Note Date: 12/26/23 73-year-old male with a past medical history significant of atrial fibrillation, COPD, diabetes, open heart surgery, renal disease, iron deficiency anemia, and hypertension presented to ER via EMS with a chief complaint of shortness of breath. Patient states he started to experience shortness of breath last night with mild chest discomfort. He describes it as a "pain". He states the chest discomfort has since resolved. He does report a history of congestive heart failure. He does not normally wear oxygen at home. He denies any fevers, cough, congestion. He does state he tried 3 breathing treatments at home with no improvement of her symptoms which prompted him to call EMS. EMS states they found patient satting 84% on room air. He did receive 1 breathing treatment by EMS. He denies any abdominal pain, constipation/diarrhea, urinary complaints or peripheral edema. Chest x-ray is concerning for pneumonia; viral swabs are completed and are negative Blood work completed in ED reveals a WBC of 16.6, hemoglobin of 10.9 and platelet count of 140, sodium 135, potassium 4.4, BUNs/creatinine of 98/1.83 and blood glucose of 230 -Patient is placed on IV Rocephin and azithromycin in ED and is admitted to the hospital for further treatment Lab review shows improvement in white blood count from 16.6 yesterday down to 14.2, sodium has trended down to 130 from 136 yesterday; BUNs/creatinine worsening from 98/1.83 up to 86/2.3; blood cultures are positive -- We will start patient on IV fluids in form of normal saline at rate of 75 cc an hour; monitor strict JERICA's, daily weights, renal function electrolytes; avoid nephrotoxins; recommend consulting nephrology if renal function continues to worsen -ID on board and patient has been placed on IV vancomycin in addition to Zosyn and azithromycin 12/22. Patient seen and examined. States breathing is improved. Denies any fever or chills 12/23. Patient seen and examined. 2D echo done showed mild to moderate LV systolic dysfunction, severe pulmonary hypertension, mild to moderate aortic stenosis, severe tricuspid regurg, moderate to severe eccentric jet of mitral regurg. Ultrasound of kidneys done showed no abnormality 12/24. Patient seen and examined. Denies any chest pain. Denies any shortness of breath December 25: Up in a chair. Eating well. Breathing is better. Feels a bit weak. Edema coming down. On IV vancomycin for MRSA bacteremia. Sodium bicarbonate for metabolic acidosis. Repeat blood culture negative for MRSA. SCOTT done yesterday showed no vegetation Social history: Patient smoked for 55 years, stopped l 2021. No alcohol. Does use CBD for back pain. Physical examination: VITAL SIGNS: 98, 69, 18, 118/69, 92% room air GENERAL: Up in a chair, EYES: Pupils equal. Conjunctiva normal. HEENT: External appearance of nose and ears normal, oral cavity grossly normal. NECK: JVD raised; masses not palpable. HEART: First and second heart sounds are normal; some edema LUNGS: Respiratory rate increased; decreased breath sounds.. Some basal crackles ABDOMEN: Soft, nontender, liver spleen not palpable, no masses palpable. Edema present PSYCH: Alert and oriented x3; mood and affect normal. MUSCULOSKELETAL:No Clubbing/cyanosis;muscles-grossly intact INVESTIGATIONS, reviewed in the clinical context: December 25: Sodium 128 potassium 4.8 BUN 95 creatinine 2.5 2D echo: EF 45 to 50% Severe pulmonary hypertension, pressure 73 mmHg. Moderate right atrial dilatation. Moderate to severe mitral regurgitation. Moderate mitral annular calcification. Status post mitral valve repair. Mild to moderate arctic stenosis. Severe tricuspid regurgitation. SCOTT: No vegetation Assessment and plan: -Community-acquired pneumonial left lower lobe, from MRSA IV vancomycin -Left-sided pleural effusion; trace; likely parapneumonic; -MRSA bacteremia, from pneumonia IV vancomycin, ID following -Acute renal injury, ATN secondary to hypotension. Nonoliguric. -CAD with prior history of stent Aspirin -Paroxysmal atrial fibrillation, currently sinus rhythm Lopressor -Hyperbilirubinemia; -Diabetes mellitus type 2, uncontrolled with hyperglycemia Follow Accu-Cheks. Victoza-to be resumed from home. -Chronic kidney disease stage IIIb secondary to nephrosclerosis baseline creatinine around 1.6-1.8 in March 2023 -[place] metabolic acidosis secondary to acute kidney injury Sodium bicarbonate -Hypertension; Lopressor 12.5 twice daily -COPD; in a previous smoker Symbicort -Severe secondary pulm hypertension -Moderate to severe mitral regurgitation. Moderate mitral annular calcification. Status post mitral valve repair. Mild to moderate arctic stenosis. Severe tricuspid regurgitation. -Acute on chronic congestive heart failure from mild systolic dysfunction and severe valvular disease including tricuspid and mitral regurgitation: Received extra dose of IV Lasix. Fluid restriction
--- NOTE | 2023-12-26 16:02 | P.PN ---
Subjective Progress Note Date: 12/25/23 Principal diagnosis: Reason for follow-up is pneumonia and MRSA bacteremia Patient is a 73-year-old male with a past medical history significant for diabetes mellitus hypertension hyperlipidemia [place] atrial fibrillation coronary artery disease patient presenting to the hospital complaining of shortness of breath there was concern for possible pneumonia with abdominal distention CT was done did not show any abdominal process confirming left lower lobe pneumonia blood cultures are positive with MRSA.Patient did have a SCOTT completed on 12/25/2023 with no evidence of any vegetation. On today's evaluation that is 12/25/2023, Patient is afebrile patient is currently on 3 L current oxygen and denies having any shortness of breath, the patient denies any chest pain or any worsening cough, the patient denies any nausea vomiting did not have any abdominal pain and no diarrhea. No CBC was done today creatinine is 2.50 blood culture repeat has been negative Objective - Vital Signs Vital signs: Vital Signs Temp 97.5 F 12/25/23 13:07 Pulse 69 12/25/23 13:07 Resp 17 12/25/23 13:07 BP 122/70 12/25/23 13:07 Pulse Ox 92 L 12/25/23 13:07 FiO2 - Exam GENERAL DESCRIPTION: An elderly male up in the chair in no distress RESPIRATORY SYSTEM: Unlabored breathing , decreased breath sounds at bases HEART: S1 S2 regular rate and rhythm , ABDOMEN: Soft , no tenderness EXTREMITIES: No edema feet - Labs CBC & Chem 7: 12/24/23 04:46 12/26/23 10:50 Labs: Abnormal Lab Results - Last 24 Hours (Table) 12/25/23 12/25/23 12/26/23 Range/Units 16:38 20:51 06:20 Sodium (137-145) mmol/L Carbon Dioxide (22-30) mmol/L BUN (9-20) mg/dL Creatinine (0.66-1.25) mg/dL Glucose (74-99) mg/dL POC Glucose (mg/dL) 255 H 220 H 164 H (70-110) mg/dL 12/26/23 12/26/23 Range/Units 10:50 11:02 Sodium 128 L (137-145) mmol/L Carbon Dioxide 20 L (22-30) mmol/L BUN 95 H (9-20) mg/dL Creatinine 2.50 H (0.66-1.25) mg/dL Glucose 158 H (74-99) mg/dL POC Glucose (mg/dL) 186 H (70-110) mg/dL Microbiology - Last 24 Hours (Table) 12/23/23 03:58 Blood Culture - Preliminary Blood 12/23/23 12:21 Gram Stain - Final Sputum Sputum Culture - Final Margo albicans Escherichia coli 12/22/23 07:40 Blood Culture - Preliminary Blood Assessment and Plan (1) Pneumonia Current Visit: Yes Status: Acute Code(s): J18.9 - PNEUMONIA, UNSPECIFIED O RGANISM SNOMED Code(s): 741411089 (2) Sepsis Current Visit: Yes Status: Acute Code(s): A41.9 - SEPSIS, UNSPECIFIED ORGANISM SNOMED Code(s): 79812741 Plan: 1patient presented hospital with sepsis in this patient who did have a fever elevated white count meeting currently for SIRS source possible pneumonia however the patient also have predominantly abdominal symptom of nausea and vomiting did have some abdominal distention underlying abdominal source not entirely excluded 2-patient did have CT of abdominal pelvis with oral contrast only did not show any intra-abdominal process to confirm left lower lobe pneumonia 3patient with MRSA bacteremia source likely pneumonia transthoracic echo did show some valvular abnormality patient is status post SCOTT did not show any evidence of vegetation 4patient to continue with vancomycin pharmacy to dose while watching kidney function closely, at the bedside questions were answered Dictation was produced using [employer] dictation software. please excuse any gramma tical, word or spelling errors. Time with Patient: Less than 30
--- NOTE | 2023-12-26 16:03 | P.PN ---
Subjective Progress Note Date: 12/26/23 Principal diagnosis: Reason for follow-up is pneumonia and MRSA bacteremia Patient is a 73-year-old male with a past medical history significant for diabetes mellitus hypertension hyperlipidemia [place] atrial fibrillation coronary artery disease patient presenting to the hospital complaining of shortness of breath there was concern for possible pneumonia with abdominal distention CT was done did not show any abdominal process confirming left lower lobe pneumonia blood cultures are positive with MRSA.Patient did have a SCOTT completed on 12/25/2023 with no evidence of any vegetation. On today's evaluation that is 12/26/2023, patient has been afebrile, patient is breathing comfortably and is currently on 3 L current oxygen, patient cough is decreased intensity mostly dry in nature no chest pain shortness of breath, patient denies nausea vomiting or diarrhea and no abdominal pain. Patient did have a creatinine 2.50, sputum growing Margo albicans and E. coli Objective - Vital Signs Vital signs: Vital Signs Temp 97.8 F 12/26/23 07:00 Pulse 66 12/26/23 11:20 Resp 18 12/26/23 07:00 BP 106/65 12/26/23 07:00 Pulse Ox 95 12/26/23 08:32 FiO2 Intake & Output 12/25/23 12/26/23 12/26/23 18:59 06:59 18:59 Output Total 450 Balance -450 Output: Urine 450 Other: Voiding Method Toilet Urinal # Voids 2 # Bowel Movements 2 - Exam GENERAL DESCRIPTION: An elderly male up in the chair in no distress RESPIRATORY SYSTEM: Unlabored breathing , decreased breath sounds at bases HEART: S1 S2 regular rate and rhythm , ABDOMEN: Soft , no tenderness EXTREMITIES: No edema feet - Labs CBC & Chem 7: 12/24/23 04:46 12/26/23 10:50 Labs: Abnormal Lab Results - Last 24 Hours (Table) 12/25/23 12/25/23 12/26/23 Range/Units 16:38 20:51 06:20 Sodium (137-145) mmol/L Carbon Dioxide (22-30) mmol/L BUN (9-20) mg/dL Creatinine (0.66-1.25) mg/dL Glucose (74-99) mg/dL POC Glucose (mg/dL) 255 H 220 H 164 H (70-110) mg/dL 12/26/23 12/26/23 Range/Units 10:50 11:02 Sodium 128 L (137-145) mmol/L Carbon Dioxide 20 L (22-30) mmol/L BUN 95 H (9-20) mg/dL Creatinine 2.50 H (0.66-1.25) mg/dL Glucose 158 H (74-99) mg/dL POC Glucose (mg/dL) 186 H (70-110) mg/dL Microbiology - Last 24 Hours (Table) 12/23/23 03:58 Blood Culture - Preliminary Blood 12/23/23 12:21 Gram Stain - Final Sputum Sputum Culture - Final Margo albicans Escherichia coli 12/22/23 07:40 Blood Culture - Preliminary Blood Assessment and Plan (1) Pneumonia Current Visit: Yes Status: Acute Code(s): J18.9 - PNEUMONIA, UNSPECIFIED ORGANISM SNOMED Code(s): 056205758 (2) Sepsis Current Visit: Yes Status: Acute Code(s): A41.9 - SEPSIS, UNSPECIFIED ORGANISM SNOMED Code(s): 67496278 Plan: 1patient presented hospital with sepsis in this patient who did have a fever elevated white count meeting currently for SIRS source possible pneumonia however the patient also have predominantly abdominal symptom of nausea and vomi ting did have some abdominal distention underlying abdominal source not entirely excluded 2-patient did have CT of abdominal pelvis with oral contrast only did not show any intra-abdominal process to confirm left lower lobe pneumonia 3patient with MRSA bacteremia source likely pneumonia transthoracic echo did show some valvular abnormality patient is status post SCOTT did not show any evidence of vegetation we will obtain a WBC scan if no evidence of any deeper focus of infection 4patient to continue with vancomycin pharmacy to dose while watching kidney function closely, with a sputum showing E. coli we will add oral Augmentin Margo is more likely colonizer Dictation was produced using [employer] software. please excuse any grammatical, word or spelling errors. Time with Patient: Less than 30
[2023-12-26 16:41] LABS: Glucose,Whole Blood 251 mg/dL (70-110)
[2023-12-26] MEDS: CALCIUM CARBONATE 500 MG CHEWABLE PO PRN (17:49)
[2023-12-26] MEDS: ENOXAPARIN 40 MG/0.4 ML SYRINGE SQ SCH (17:49)
[2023-12-26 20:35] LABS: Glucose,Whole Blood 190 mg/dL (70-110)
[2023-12-27 05:52] LABS: Glucose,Whole Blood 160 mg/dL (70-110)
[2023-12-27 06:29] LABS: African American GFR (CKD) 28 (>60 ml/min/1.73 sqM); Non-African American GFR(CKD) 24 (>60 ml/min/1.73 sqM)
[2023-12-27 07:11] LABS: African American GFR (CKD) 28 (>60 ml/min/1.73 sqM); Anion Gap 10 mmol/L; Blood Urea Nitrogen 92 mg/dL (9-20); Calcium 8.5 mg/dL (8.4-10.2); Carbon Dioxide 18 mmol/L (22-30); Chloride 102 mmol/L (98-107); Glucose 137 mg/dL (74-99); Non-African American GFR(CKD) 24 (>60 ml/min/1.73 sqM); Potassium 4.7 mmol/L (3.5-5.1); Sodium 130 mmol/L (137-145)
[2023-12-27] MEDS: FUROSEMIDE 40 MG TAB PO SCH (08:28)
[2023-12-27] MEDS: ENOXAPARIN 30 MG/0.3 ML SYRINGE SQ SCH (08:29)
[2023-12-27] MEDS: Liraglutide [Victoza 3-Pak] 0.6 MG/0.1 ML Ml SQ SCH (08:30)
[2023-12-27 11:01] LABS: Glucose,Whole Blood 248 mg/dL (70-110)
[2023-12-27] MEDS: ALPRAZolam 0.5 MG TAB PO PRN (11:57)
[2023-12-27] MEDS: VANCOMYCIN 1,000 MG in SODIUM CHLORIDE 0.9% 250 ML IVPB SCH (11:57)
--- NOTE | 2023-12-27 13:37 | P.PN ---
Subjective patient is seen for follow-up for hyponatremia. Improved with diuresis. Sodium is 130 today no significant complaints today. Serum creatinine staying at 2.5 mg/dL. Objective - Vital Signs Vital signs: Vital Signs Temp 97.5 F L 12/27/23 07:25 Pulse 80 12/27/23 11:47 Resp 16 12/27/23 11:47 BP 110/68 12/27/23 07:25 Pulse Ox 95 12/27/23 08:58 FiO2 Intake & Output 12/26/23 12/27/23 12/27/23 18:59 06:59 18:59 Weight 72.575 kg Other: Voiding Method Toilet Toilet Urinal Urinal # Voids 1 2 - Exam patient is awake, comfortable, no acute distress. 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 - Labs CBC & Chem 7: 12/24/23 04:46 12/27/23 05:53 Labs: Abnormal Lab Results - Last 24 Hours (Table) 12/26/23 12/26/23 12/27/23 Range/Units 16:38 20:33 05:50 Sodium (137-145) mmol/L Carbon Dioxide (22-30) mmol/L BUN (9-20) mg/dL Creatinine (0.66-1.25) mg/dL Glucose (74-99) mg/dL POC Glucose (mg/dL) 251 H 190 H 160 H (70-110) mg/dL 12/27/23 12/27/23 12/27/23 Range/Units 05:53 05:53 10:59 Sodium 130 L (137-145) mmol/L Carbon Dioxide 18 L (22-30) mmol/L BUN 92 H (9-20) mg/dL Creatinine 2.50 H 2.55 H (0.66-1.25) mg/dL Glucose 137 H (74-99) mg/dL POC Glucose (mg/dL) 248 H (70-110) mg/dL Microbiology - Last 24 Hours (Table) 12/23/23 03:58 Blood Culture - Preliminary Blood Assessment and Plan Assessment: 1. Acute kidney injury, ATN secondary to hypotension, nonoliguric. UA shows trace protein WBCs 38 large blood. No obstruction noted on ultrasound of the kidneys on 12/23/2023. 2. Hyponatremia Hypervolemic and improved with diuresis. urine osmolality at 362 with random urine sodium less than 20 which can be seen in CHF. 3. MRSA bacteremia, source is likely pneumonia. Maintained on IV vancomycin. 4. Non-gap metabolic acidosis associated with acute kidney injury. 5. 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 Plan: continue off of IV fluids. continue with Lasix Repeat sodium in a.m. Continue with oral sodium bicarb.
--- NOTE | 2023-12-27 15:49 | P.PN ---
Subjective Progress Note Date: 12/27/23 Principal diagnosis: Reason for follow-up is pneumonia and MRSA bacteremia Patient is a 73-year-old male with a past medical history significant for diabetes mellitus hypertension hyperlipidemia ID atrial fibrillation coronary artery disease patient presenting to the hospital complaining of shortness of breath there was concern for possible pneumonia with abdominal distention CT was done did not show any abdominal process confirming left lower lobe pneumonia blood cultures are positive with MRSA.Patient did have a SCOTT completed on 12/25/2023 with no evidence of any vegetation. On today's evaluation that is 12/27/2023, Patient is afebrile this morning patient denies having any chest pain shortness of breath patient cough and decreased intensity not bring up any sputum, the patient is breathing comfortably and currently on room air, patient denies any abdominal pain no diarrhea no nausea no vomiting. Patient creatinine is 2.55 vancomycin level is 18.9 blood culture repeat has been negative Objective - Vital Signs Vital signs: Vital Signs Temp 97.5 F L 12/27/23 07:25 Pulse 80 12/27/23 11:47 Resp 16 12/27/23 11:47 BP 110/68 12/27/23 07:25 Pulse Ox 95 12/27/23 08:58 FiO2 Intake & Output 12/26/23 12/27/23 12/27/23 18:59 06:59 18:59 Weight 72.575 kg Other: Voiding Method Toilet Toilet Urinal Urinal # Voids 1 2 - Exam GENERAL DESCRIPTION: An elderly male up in the chair in no distress RESPIRATORY SYSTEM: Unlabored breathing , decreased breath sounds at bases HEART: S1 S2 regular rate and rhythm , ABDOMEN: Soft , no tenderness EXTREMITIES: No edema feet - Labs CBC & Chem 7: 12/24/23 04:46 12/27/23 05:53 Labs: Abnormal Lab Results - Last 24 Hours (Table) 12/26/23 12/26/23 12/27/23 Range/Units 16:38 20:33 05:50 Sodium (137-145) mmol/L Carbon Dioxide (22-30) mmol/L BUN (9-20) mg/dL Creatinine (0.66-1.25) mg/dL Glucose (74-99) mg/dL POC Glucose (mg/dL) 251 H 190 H 160 H (70-110) mg/dL 12/27/23 12/27/23 12/27/23 Range/Units 05:53 05:53 10:59 Sodium 130 L (137-145) mmol/L Carbon Dioxide 18 L (22-30) mmol/L BUN 92 H (9-20) mg/dL Creatinine 2.50 H 2.55 H (0.66-1.25) mg/dL Glucose 137 H (74-99) mg/dL POC Glucose (mg/dL) 248 H (70-110) mg/dL Microbiology - Last 24 Hours (Table) 12/23/23 03:58 Blood Culture - Preliminary Blood Assessment and Plan (1) Pneumonia Current Visit: Yes Status: Acute Code(s): J18.9 - PNEUMONIA, UNSPECIFIED ORGANISM SNOMED Code(s): 486649678 (2) Sepsis Current Visit: Yes Status: Acute Code(s): A41.9 - SEPSIS, UNSPECIFIED ORGANISM SNOMED Code(s): 82931903 Plan: 1patient presented hospital with sepsis in this patient who did have a fever elevated white count meeting currently for SIRS source possible pneumonia however the patient also have predominantly abdominal symptom of nausea and vomiting did have some abdominal distention underlying abdominal source not entirely excluded 2-patient did have CT of abdominal pelvis with oral contrast only did not show any intra-abdominal process to confirm left lower lobe pneumonia 3patient with MRSA bacteremia source likely pneumonia transthoracic echo did show some valvular abnormality patient is status post SCOTT did not show any evidence of vegetation patient is currently undergoing WBC scan to make sure no evidence of any deeper focus of infection 4patient to continue with vancomycin pharmacy to dose while watching kidney function closely, with a sputum showing E. coli we will add oral Augmentin, discharge antibiotic on the basis of WBC scan result Dictation was produced using [employer] dictation software. please excuse any grammatical, word or spelling errors. Time with Patient: Less than 30
[2023-12-27 16:13] LABS: Glucose,Whole Blood 180 mg/dL (70-110)
--- NOTE | 2023-12-27 17:30 | P.PN ---
Progress Note - Text Progress Note Date: 12/27/23 73-year-old male with a past medical history significant of atrial fibrillation, COPD, diabetes, open heart surgery, renal disease, iron deficiency anemia, and hypertension presented to ER via EMS with a chief complaint of shortness of breath. Patient states he started to experience shortness of breath last night with mild chest discomfort. He describes it as a "pain". He states the chest discomfort has since resolved. He does report a history of congestive heart failure. He does not normally wear oxygen at home. He denies any fevers, cough, congestion. He does state he tried 3 breathing treatments at home with no improvement of her symptoms which prompted him to call EMS. EMS states they found patient satting 84% on room air. He did receive 1 breathing treatment by EMS. He denies any abdominal pain, constipation/diarrhea, urinary complaints or peripheral edema. Chest x-ray is concerning for pneumonia; viral swabs are completed and are negative Blood work completed in ED reveals a WBC of 16.6, hemoglobin of 10.9 and platelet count of 140, sodium 135, potassium 4.4, BUNs/creatinine of 98/1.83 and blood glucose of 230 -Patient is placed on IV Rocephin and azithromycin in ED and is admitted to the hospital for further treatment Lab review shows improvement in white blood count from 16.6 yesterday down to 14.2, sodium has trended down to 130 from 136 yesterday; BUNs/creatinine worsening from 98/1.83 up to 86/2.3; blood cultures are positive -- We will start patient on IV fluids in form of normal saline at rate of 75 cc an hour; monitor strict JERICA's, daily weights, renal function electrolytes; avoid nephrotoxins; recommend consulting nephrology if renal function continues to worsen -ID on board and patient has been placed on IV vancomycin in addition to Zosyn and azithromycin 12/22. Patient seen and examined. States breathing is improved. Denies any fever or chills 12/23. Patient seen and examined. 2D echo done showed mild to moderate LV systolic dysfunction, severe pulmonary hypertension, mild to moderate aortic stenosis, severe tricuspid regurg, moderate to severe eccentric jet of mitral regurg. Ultrasound of kidneys done showed no abnormality 12/24. Patient seen and examined. Denies any chest pain. Denies any shortness of breath December 25: Up in a chair. Eating well. Breathing is better. Feels a bit weak. Edema coming down. On IV vancomycin for MRSA bacteremia. Sodium bicarbonate for metabolic acidosis. Repeat blood culture negative for MRSA. SCOTT done yesterday showed no vegetation December 26: Remains on IV vancomycin. Eating fair. Some edema present. Being switched over to oral Lasix. Fluid restriction. WBC scan ordered by ID Active Medications Acetaminophen (Acetaminophen Tab 325 Mg Tab) 650 mg PO Q6HR PRN PRN Reason: Mild Pain or Fever > 100.5 Last Admin: 12/24/23 21:58 Dose: 650 mg Hydrocodone Bitart/Acetaminophen (Hydrocodone/Apap 10-325mg 1 Each Tab) 1 each PO BID PRN PRN Reason: Pain Last Admin: 12/26/23 22:18 Dose: 1 each Allopurinol (Allopurinol 100 Mg Tab) 100 mg PO DAILY [facility] Last Admin: 12/27/23 08:28 Dose: 100 mg Alprazolam (Alprazolam 0.5 Mg Tab) 0.5 mg PO DAILY PRN PRN Reason: SLEEP/ANXIETY Last Admin: 12/27/23 11:57 Dose: 0.5 mg Amoxicillin/Clavulanate Potassium (Amoxic-Pot Clav 500-125 Mg 1 Each Tab) 1 each PO BID [facility]; Protocol Last Admin: 12/27/23 08:28 Dose: 1 each Aspirin (Aspirin 81 Mg) 81 mg PO DAILY [facility] Last Admin: 12/27/23 08:28 Dose: 81 mg Atorvastatin Calcium (Atorvastatin 80 Mg Tab) 80 mg PO HS [facility] Last Admin: 12/26/23 20:37 Dose: 80 mg Budesonide/Formoterol Fumarate (Symbicort 80-4.5 Mcg Inhaler) 2 puff INHALATION RT-BID [facility] Last Admin: 12/27/23 08:58 Dose: 2 puff Calcium Carbonate/Glycine (Calcium Carbonate 500 Mg Chewable) 500 mg PO TID PRN PRN Reason: Heartburn Last Admin: 12/26/23 17:49 Dose: 500 mg Dextrose/Water (Dextrose 50% Syringe 50 Ml) 25 ml IVP PER PROTOCOL PRN; Protocol PRN Reason: Hypoglycemia Dextrose/Water (Dextrose 50% Syringe 50 Ml) 50 ml IVP PER PROTOCOL PRN; Protocol PRN Reason: Hypoglycemia Docusate Sodium (Docusate 100 Mg Cap) 100 mg PO BID [facility] Last Admin: 12/27/23 08:32 Dose: Not Given Enoxaparin Sodium (Enoxaparin 30 Mg/0.3 Ml Syringe) 30 mg SQ DAILY [facility] Last Admin: 12/27/23 08:29 Dose: 30 mg Furosemide (Furosemide 40 Mg Tab) 40 mg PO DAILY [facility] Last Admin: 12/27/23 08:28 Dose: 40 mg Hydromorphone HCl (Hydromorphone 0.5 Mg/0.5 Ml Syringe) 0.5 mg IVP Q4HR PRN PRN Reason: Pain Last Admin: 12/22/23 16:21 Dose: 0.5 mg Hydroxyzine HCl (Hydroxyzine Hcl 10 Mg Tab) 10 mg PO DAILY [facility] Last Admin: 12/27/23 08:29 Dose: 10 mg Vancomycin HCl 1,000 mg/ (Sodium Chloride) 250 mls @ 125 mls/hr IVPB Q36H [facility] Last Admin: 12/27/23 11:57 Dose: 125 mls/hr Insulin Aspart (Insulin Aspart (Novolog) 100 Unit/Ml Vial) 0 unit SQ ACHS [facility]; Protocol Last Admin: 12/27/23 17:01 Dose: 2 unit Ipratropium [place] (Ipratropium 0.5 Mg/2.5 Ml Nebu) 0.5 mg INHALATION RT-QID [facility] Last Admin: 12/27/23 15:59 Dose: 0.5 mg Metoprolol Tartrate (Metoprolol Tartrate 12.5 Mg Tab) 12.5 mg PO BID [facility] Last Admin: 12/27/23 08:28 Dose: 12.5 mg Midodrine (Midodrine 5 Mg Tab) 5 mg PO DAILY PRN PRN Reason: BP <110 Naloxone HCl (Naloxone 0.4 Mg/Ml 1 Ml Vial) 0.2 mg IV Q2M PRN PRN Reason: Opioid Reversal Liraglutide [Victoza 3-Casey] 0.6 Mg/0.1 Ml Ml 1.8 each SQ DAILY [facility] Last Admin: 12/27/23 08:30 Dose: Not Given Ondansetron HCl (Ondansetron 4 Mg/2 Ml Vial) 4 mg IVP Q8HR PRN PRN Reason: Nausea And Vomiting Last Admin: 12/25/23 21:22 Dose: 4 mg Sodium Bicarbonate (Sodium Bicarbonate Tab 650 Mg Tab) 650 mg PO TID [facility] Last Admin: 12/27/23 17:01 Dose: 650 mg Sodium Chloride (Sodium Chloride 0.65% Nasal Ambia 44 Ml Btl) 2 spray NASAL QID PRN PRN Reason: Dry Nasal Passages Last Admin: 12/26/23 11:51 Dose: 2 spray Social history: Patient smoked for 55 years, stopped l 2021. No alcohol. Does use CBD for back pain. Physical examination: VITAL SIGNS: 98, 69, 18, 118/69, 92% room air GENERAL: Up in a chair, EYES: Pupils equal. Conjunctiva normal. HEENT: External appearance of nose and ears normal, oral cavity grossly normal. NECK: JVD raised; masses not palpable. HEART: First and second heart sounds are normal; some edema LUNGS: Respiratory rate increased; decreased breath sounds.. Some basal crackles ABDOMEN: Soft, nontender, liver spleen not palpable, no masses palpable. Edema present PSYCH: Alert and oriented x3; mood and affect normal. MUSCULOSKELETAL:No Clubbing/cyanosis;muscles-grossly intact INVESTIGATIONS, reviewed in the clinical context: December 25: Sodium 128 potassium 4.8 BUN 95 creatinine 2.5 2D echo: EF 45 to 50% Severe pulmonary hypertension, pressure 73 mmHg. Moderate right atrial dilatation. Moderate to severe mitral regurgitation. Moderate mitral annular calcification. Status post mitral valve repair. Mild to moderate arctic stenosis. Severe tricuspid regurgitation. SCOTT: No vegetation Assessment and plan: -Community-acquired pneumonial left lower lobe, from MRSA/E. coli IV vancomycin, Augmentin -Left-sided pleural effusion; trace; likely parapneumonic; -MRSA bacteremia, from pneumonia IV vancomycin, ID following -Acute renal injury, ATN secondary to hypotension. Nonoliguric. Creatinine has remained at 2.5 -CAD with prior history of stent Aspirin -Paroxysmal atrial fibrillation, currently sinus rhythm Lopressor -Hyperbilirubinemia; -Diabetes mellitus type 2, uncontrolled with hyperglycemia Follow Accu-Cheks. Victoza-to be resumed from home. -Chronic kidney disease stage IIIb secondary to nephrosclerosis baseline creatinine around 1.6-1.8 in March 2023 -Nongap metabolic acidosis secondary to acute kidney injury Sodium bicarbonate -Hypertension; Lopressor 12.5 twice daily -COPD; in a previous smoker Symbicort -Severe secondary pulm hypertension -Moderate to severe mitral regurgitation. Moderate mitral annular calcification. Status post mitral valve repair. Mild to moderate arctic stenosis. Severe tricuspid regurgitation. -Acute on chronic congestive heart failure from mild systolic dysfunction and severe valvular disease including tricuspid and mitral regurgitation: Oral Lasix 40 mg Fluid restriction Continue current medication treatment plan. Follow-up with ID, nephrology
[2023-12-27 20:27] LABS: Glucose,Whole Blood 211 mg/dL (70-110)
[2023-12-28 04:47] LABS: African American GFR (CKD) 27 (>60 ml/min/1.73 sqM); Non-African American GFR(CKD) 23 (>60 ml/min/1.73 sqM)
[2023-12-28 06:07] LABS: Glucose,Whole Blood 167 mg/dL (70-110)
--- NOTE | 2023-12-28 11:11 | NM ---
EXAMINATION TYPE: NM WBC whole body DATE OF EXAM: 12/27/2023 COMPARISON: NONE CLINICAL INDICATION: Male, 73 years old with history of bacteremia , source; TECHNIQUE: Following administration of 17.8 mCi Tc99m Ceretec. Images obtained 3 hours post injecti on. FINDINGS: Normal physiological tracer activity is noted in the liver and spleen and in the bone marrow of the a xial and appendicular skeleton. IMPRESSION: Normal white blood cell scan. No evidence for abnormal tracer activity.
[2023-12-28 11:48] LABS: Glucose,Whole Blood 208 mg/dL (70-110)
[2023-12-28 12:23] LABS: Anion Gap 10 mmol/L; Blood Urea Nitrogen 93 mg/dL (9-20); Calcium 8.6 mg/dL (8.4-10.2); Carbon Dioxide 18 mmol/L (22-30); Chloride 101 mmol/L (98-107); Glucose 132 mg/dL (74-99); Potassium 4.9 mmol/L (3.5-5.1); Sodium 129 mmol/L (137-145)
--- NOTE | 2023-12-28 14:09 | P.PN ---
Subjective patient is seen for follow-up for hyponatremia. Improved with diuresis. Sodium staying at 129 to 130 No significant complaints today. Patient wants to go home. Maintained on Lasix 40 mg by mouth daily. Serum creatinine at 2.6 today. BP has been low. . Maintained on midodrine. Repeat blood cultures on and have been negative. Vancomycin level 18.9 on 12/27/2023 Objective - Vital Signs Vital signs: Vital Signs Temp 97.9 F 12/28/23 07:19 Pulse 64 12/28/23 13:24 Resp 17 12/28/23 07:19 BP 108/67 12/28/23 07:19 Pulse Ox 95 12/28/23 13:01 FiO2 Intake & Output 12/27/23 12/28/23 12/28/23 18:59 06:59 18:59 Intake Total 480 Balance 480 Intake: Oral 480 Other: Voiding Method Toilet Toilet Toilet Urinal Urinal Urinal # Voids 2 3 3 # Bowel Movements 3 0 - Exam patient is awake, comfortable, no acute distress. Examination of the heart S1 and S2 Examination of the lungs bilateral breath sounds are heard Abdomen is soft nontender Examination of lower extremities shows 1+ edema bilaterally, legs are wrapped. 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 - Labs CBC & Chem 7: 12/24/23 04:46 12/28/23 03:43 Labs: Abnormal Lab Results - Last 24 Hours (Table) 12/27/23 12/27/23 12/28/23 Range/Units 16:12 20:13 03:43 Sodium 129 L (137-145) mmol/L Carbon Dioxide 18 L (22-30) mmol/L BUN 93 H (9-20) mg/dL Creatinine 2.61 H (0.66-1.25) mg/dL Glucose 132 H (74-99) mg/dL POC Glucose (mg/dL) 180 H 211 H (70-110) mg/dL 12/28/23 12/28/23 Range/Units 06:03 11:47 Sodium (137-145) mmol/L Carbon Dioxide (22-30) mmol/L BUN (9-20) mg/dL Creatinine (0.66-1.25) mg/dL Glucose (74-99) mg/dL POC Glucose (mg/dL) 167 H 208 H (70-110) mg/dL Microbiology - Last 24 Hours (Table) 12/23/23 03:58 Blood Culture - Final Blood 12/22/23 07:40 Blood Culture - Final Blood Assessment and Plan Assessment: 1. Acute kidney injury, ATN secondary to hypotension, nonoliguric. UA shows trace protein WBCs 38 large blood. No obstruction noted on ultrasound of the kidneys on 12/23/2023. serum creatinine staying at 2.5 for the last few days. Check bladder scan and rule out urine retention. Patient is also maintained on vancomycin and level was 18.9 on 12/27/2023 the contributing to some degree of nephrotoxicity. 2. Hyponatremia Hypervolemic and improved with diuresis. urine osmolality at 362 with random urine sodium less than 20 which can be seen in CHF. 3. MRSA bacteremia, source is likely pneumonia. Maintained on IV vancomycin. 4. Non-gap metabolic acidosis associated with acute kidney injury. 5. 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 Plan: continue off of IV fluids. continue with Lasix Increase midodrine Repeat vancomycin level in a.m. Check bladder scan and rule out urine retention Repeat sodium in a.m. Continue with oral sodium bicarb.
--- NOTE | 2023-12-28 15:09 | P.PN ---
Subjective Progress Note Date: 12/28/23 Principal diagnosis: Reason for follow-up is pneumonia and MRSA bacteremia Patient is a 73-year-old male with a past medical history significant for diabetes mellitus hypertension hyperlipidemia SC atrial fibrillation coronary artery disease patient presenting to the hospital complaining of shortness of breath there was concern for possible pneumonia with abdominal distention CT was done did not show any abdominal process confirming left lower lobe pneumonia blood cultures are positive with MRSA.Patient did have a SCOTT completed on 12/25/2023 with no evidence of any vegetation. On today's evaluation that is 12/28/2023,the patient denies any fever or any chills, patient is breathing comfortably on room air, the patient denies chest pain shortness of breath and no significant cough, patient denies abdominal pain, no nausea vomiting or diarrhea. Patient mention feeling better wants to go home. Patient creatinine is 2.61 blood culture repeat has been negative Objective - Vital Signs Vital signs: Vital Signs Temp 97.9 F 12/28/23 07:19 Pulse 70 12/28/23 10:01 Resp 17 12/28/23 07:19 BP 108/67 12/28/23 07:19 Pulse Ox 85 L 12/28/23 09:56 FiO2 Intake & Output 12/27/23 12/28/23 12/28/23 18:59 06:59 18:59 Intake Total 480 Balance 480 Intake: Oral 480 Other: Voiding Method Toilet Toilet Urinal Urinal # Voids 2 3 # Bowel Movements 3 0 - Exam GENERAL DESCRIPTION: An elderly male up in the chair in no distress RESPIRATORY SYSTEM: Unlabored breathing , decreased breath sounds at bases HEART: S1 S2 regular rate and rhythm , ABDOMEN: Soft , no tenderness EXTREMITIES: No edema feet - Labs CBC & Chem 7: 12/24/23 04:46 12/28/23 03:43 Labs: Abnormal Lab Results - Last 24 Hours (Table) 12/27/23 12/27/23 12/28/23 Range/Units 16:12 20:13 03:43 Creatinine 2.61 H (0.66-1.25) mg/dL POC Glucose (mg/dL) 180 H 211 H (70-110) mg/dL 12/28/23 Range/Units 06:03 Creatinine (0.66-1.25) mg/dL POC Glucose (mg/dL) 167 H (70-110) mg/dL Microbiology - Last 24 Hours (Table) 12/22/23 07:40 Blood Culture - Final Blood Assessment and Plan (1) Pneumonia Current Visit: Yes Status: Acute Code(s): J18.9 - PNEUMONIA, UNSPECIFIED ORGANISM SNOMED Code(s): 650110778 (2) Sepsis Current Visit: Yes Status: Acute Code(s): A41.9 - SEPSIS, UNSPECIFIED ORGANISM SNOMED Code(s): 74035600 Plan: 1patient presented hospital with sepsis in this patient who did have a fever elevated white count meeting currently for SIRS source possible pneumonia however the patient also have predominantly abdominal symptom of nausea and vomiting did have some abdominal distention underlying abdominal source not entirely excluded 2-patient did have CT of abdominal pelvis with oral contrast only did not show any intra-abdominal process to confirm left lower lobe pneumonia 3patient with MRSA bacteremia source likely pneumonia transthoracic echo did show some valvular abnormality patient is status post SCOTT did not show any evidence of vegetation patient WBC scan was reported negative 4patient has received about a week of IV vancomycin keeping in mind his kidney function high risk of nephrotoxicity from outpatient IV Vanco with a source possible pneumonia we will consider a 10-day course of oral Zyvox on discharge and close outpatient follow-up prescription was sent to the pharmacy we will be repeating a set of blood culture a week after completion of his antibiotic patient evidence of a recurrence of bacteremia this was explained to the patient and the in layman terms Dictation was produced using [employer] dictation software. please excuse any grammatical, word or spelling errors. Time with Patient: Less than 30
[2023-12-28 15:18] VITALS: BP 110/67; PULSE 56; RESP 18; TEMP 97.4
[2023-12-28] MEDS ORDERED: MIDODRINE 5 MG TAB PO SCH (17:30)
--- NOTE | 2023-12-28 18:28 | P.DS ---
Providers Date of admission: 12/21/23 07:48 Expected date of discharge: 12/28/23 Attending physician: Beto Bynum Consults: 12/21/23 08:06 Consult Physician Urgent Consulting Provider: Sabi Chen Consult Reason/Comments: sepsis/pneumonia Do you want consulting provider notified?: Yes 12/23/23 10:54 Consult Physician Routine Consulting Provider: Darlin Boateng Consult Reason/Comments: Acute kidney injury Do you want consulting provider notified?: Yes 12/24/23 10:25 Consult Physician Routine Consulting Provider: Santiago Ramos Consult Reason/Comments: Systolic dysfunction, severe pulm hypertension, bacteremia, needs SCOTT Do you want consulting provider notified?: Yes Primary care physician: [facility] Course: 73-year-old male with a past medical history significant of atrial fibrillation, COPD, diabetes, open heart surgery, renal disease, iron deficiency anemia, and hypertension presented to ER via EMS with a chief complaint of shortness of breath. Patient states he started to experience shortness of breath last night with mild chest discomfort. He describes it as a "pain". He states the chest discomfort has since resolved. He does report a history of congestive heart failure. He does not normally wear oxygen at home. He denies any fevers, cough, congestion. He does state he tried 3 breathing treatments at home with no improvement of her symptoms which prompted him to call EMS. EMS states they found patient satting 84% on room air. He did receive 1 breathing treatment by EMS. He denies any abdominal pain, constipation/diarrhea, urinary complaints or peripheral edema. Chest x-ray is concerning for pneumonia; viral swabs are completed and are negative Blood work completed in ED reveals a WBC of 16.6, hemoglobin of 10.9 and platelet count of 140, sodium 135, potassium 4.4, BUNs/creatinine of 98/1.83 and blood glucose of 230 -Patient is placed on IV Rocephin and azithromycin in ED and is admitted to the hospital for further treatment Lab review shows improvement in white blood count from 16.6 yesterday down to 14.2, sodium has trended down to 130 from 136 yesterday; BUNs/creatinine worsening from 98/1.83 up to 86/2.3; blood cultures are positive -- We will start patient on IV fluids in form of normal saline at rate of 75 cc an hour; monitor strict JERICA's, daily weights, renal function electrolytes; avoid nephrotoxins; recommend consulting nephrology if renal function continues to worsen -ID on board and patient has been placed on IV vancomycin in addition to Zosyn and azithromycin 12/22. Patient seen and examined. States breathing is improved. Denies any fever or chills 12/23. Patient seen and examined. 2D echo done showed mild to moderate LV systolic dysfunction, severe pulmonary hypertension, mild to moderate aortic stenosis, severe tricuspid regurg, moderate to severe eccentric jet of mitral regurg. Ultrasound of kidneys done showed no abnormality 12/24. Patient seen and examined. Denies any chest pain. Denies any shortness of breath December 25: Up in a chair. Eating well. Breathing is better. Feels a bit weak. Edema coming down. On IV vancomycin for MRSA bacteremia. Sodium bicarbonate for metabolic acidosis. Repeat blood culture negative for MRSA. SCOTT done yesterday showed no vegetation December 26: Remains on IV vancomycin. Eating fair. Some edema present. Being switched over to oral Lasix. Fluid restriction. WBC scan ordered by ID December 27: Doing well. Eating well. WBC scan unremarkable. Discussed with ID. Patient to complete a course of Zyvox. Switch back to Bumex. Also follow-up with nephrology outpatient. Questions answered. at the bedside. Discussion and discharge planning more than 35 minutes Social history: Patient smoked for 55 years, stopped l 2021. No alcohol. Does use CBD for back pain. Physical examination: VITAL SIGNS: 97.4, 56, 18, 110 x 77, 94% room air GENERAL: Sitting up comfortable EYES: Pupils equal. Conjunctiva normal. HEENT: External appearance of nose and ears normal, oral cavity grossly normal. NECK: JVD raised; masses not palpable. HEART: First and second heart sounds are normal; some edema LUNGS: Respiratory rate increased; decreased breath sounds.. Lung bases clear ABDOMEN: Soft, nontender, liver spleen not palpable, no masses palpable. Edema present PSYCH: Alert and oriented x3; mood and affect normal. MUSCULOSKELETAL:No Clubbing/cyanosis;muscles-grossly intact INVESTIGATIONS, reviewed in the clinical context: December 27: Sodium 129 potassium 4.9 creatinine 2.61 December 25: Sodium 128 potassium 4.8 BUN 95 creatinine 2.5 2D echo: EF 45 to 50% Severe pulmonary hypertension, pressure 73 mmHg. Moderate right atrial dilatation. Moderate to severe mitral regurgitation. Moderate mitral annular calcification. Status post mitral valve repair. Mild to moderate arctic stenosis. Severe tricuspid regurgitation. SCOTT: No vegetation Assessment and plan: -Community-acquired pneumonial left lower lobe, from MRSA IV vancomycin, DC on Zyvox 600 g every 12 10 days -Left-sided pleural effusion; trace; likely parapneumonic; -MRSA bacteremia, from pneumonia IV vancomycin, ID following Discharge on Zyvox -Acute renal injury, ATN secondary to hypotension. Nonoliguric. Creatinine has remained at 2.5 Follow-up with Dr. Boateng outpatient -CAD with prior history of stent Aspirin -Paroxysmal atrial fibrillation, currently sinus rhythm Lopressor -Hyperbilirubinemia; -Diabetes mellitus type 2, uncontrolled with hyperglycemia Follow Accu-Cheks. 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 Moderate mitral annular calcification. Status post mitral valve repair. Mild to moderate arctic stenosis. Severe tricuspid regurgitation. -Acute on chronic congestive heart failure from mild systolic dysfunction and severe valvular disease including tricuspid and mitral regurgitation: Resume home dose of Bumex Fluid restriction Disposition: Home Plan - Discharge Summary Discharge Rx Participant: No New Discharge Prescriptions: New Linezolid [Zyvox] 600 mg PO Q12H #20 tab Sodium Bicarbonate Tab 650 mg PO TID #90 tab Continue Aspirin 81 mg PO DAILY Liraglutide [Victoza 3-Casey] 1.8 mg SQ DAILY Ipratropium/Albuter 20-100Mcg [Combivent Respimat 20-100Mcg Inhaler] 1 puff INHALATION RT-QID PRN PRN Reason: Shortness Of Breath Atorvastatin [Lipitor] 80 mg PO HS Acetaminophen Tab [Tylenol] 650 mg PO Q6HR PRN tab PRN Reason: Mild Pain Or Fever > 100.5 Metoprolol Tartrate [Lopressor] 12.5 mg PO BID #0 Vit C/E/Zn/Coppr/Lutein/Zeaxan [Preservision Areds 2 Softgel] 1 cap PO BID HYDROcodone/APAP 10-325MG [Palmetto 10-325] 1 tab PO BID PRN PRN Reason: Pain ALPRAZolam [Xanax] 0.25 - 0.5 mg PO DAILY PRN PRN Reason: SLEEP/ANXIETY Midodrine [ProAmatine] 5 mg PO DAILY PRN PRN Reason: BP <110 hydrOXYzine HCL [Atarax] 10 mg PO DAILY Fluticasone/Umeclidin/Vilanter [Trelegy Ellipta 100-62.5-25] 1 puff INHALATION RT-DAILY allopurinoL 100 mg PO DAILY Ammonium Lactate Cream [Lac-Hydrin 12% Cream] 1 applic TOPICAL BID PRN PRN Reason: dryness, legs and body Bumetanide [BUMEX] 2 mg PO BID Clobetasol Propionate [Temovate 0.05% Oint] 1 applic TOPICAL BID PRN PRN Reason: dryness/rash Discontinued Docusate [Colace] 100 mg PO BID Spironolactone [Aldactone] 50 mg PO DAILY #30 tab Discharge Medication List Fluticasone/Umeclidin/Vilanter [Trelegy Ellipta 100-62.5-25] 1 puff INHALATION RT-DAILY 11/09/21 [History] Aspirin 81 mg PO DAILY 05/19/22 [History] Liraglutide [Victoza 3-Casey] 1.8 mg SQ DAILY 10/17/22 [History] Atorvastatin [Lipitor] 80 mg PO HS 11/07/22 [History] Ipratropium/Albuter 20-100Mcg [Combivent Respimat 20-100Mcg Inhaler] 1 puff INHALATION RT-QID PRN 11/07/22 [History] Acetaminophen Tab [Tylenol] 650 mg PO Q6HR PRN tab 03/19/23 [Rx] Metoprolol Tartrate [Lopressor] 12.5 mg PO BID #0 03/19/23 [Rx] allopurinoL 100 mg PO DAILY 07/02/23 [History] ALPRAZolam [Xanax] 0.25 - 0.5 mg PO DAILY PRN 12/21/23 [History] Ammonium Lactate Cream [Lac-Hydrin 12% Cream] 1 applic TOPICAL BID PRN 12/21/23 [History] Bumetanide [BUMEX] 2 mg PO BID 12/21/23 [History] Clobetasol Propionate [Temovate 0.05% Oint] 1 applic TOPICAL BID PRN 12/21/23 [History] HYDROcodone/APAP 10-325MG [Palmetto 10-325] 1 tab PO BID PRN 12/21/23 [History] Midodrine [ProAmatine] 5 mg PO DAILY PRN 12/21/23 [History] Vit C/E/Zn/Coppr/Lutein/Zeaxan [Preservision Areds 2 Softgel] 1 cap PO BID 12/21/23 [History] hydrOXYzine HCL [Atarax] 10 mg PO DAILY 12/21/23 [History] Linezolid [Zyvox] 600 mg PO Q12H #20 tab 12/28/23 [Rx] Sodium Bicarbonate Tab 650 mg PO TID #90 tab 12/28/23 [Rx] Follow up Appointment(s)/Referral(s): Darlin Boateng MD [STAFF PHYSICIAN] - 1 Week Clyde Leal DO [Primary Care Provider] - 1-2 days Sabi Chen MD [STAFF PHYSICIAN] - 1 Week Ambulatory/Diagnostic Orders: Basic Metabolic Panel [LAB.AMB] Location: None Selected Patient Instructions/Handouts: Viral Pneumonia (DC), Sepsis (DC), Fluid Restriction (DC) Activity/Diet/Wound Care/Special Instructions: fluid restrict 1800 cc/day Discharge Disposition: HOME SELF-CARE
== END 2023-12-28 15:40 | disposition home or self-care (01) | DRG 871 ==
LOC: EC 06:34 → 4SSUR 07:48
PROVIDERS: ADMIT Hospitalist; ATTEND Hospitalist
PROC: B24BZZ4 Ultrasonography of Heart with Aorta, Transesophageal (ICD-10-PCS; principal; 2023-12-25 07:15)
DX: A41.02 Sepsis due to Methicillin resistant Staphylococcus aureus (principal); I50.23 Acute on chronic systolic (congestive) heart failure; J18.9 Pneumonia, unspecified organism; N17.0 Acute kidney failure with tubular necrosis; E87.1 Hypo-osmolality and hyponatremia; E87.20 Acidosis, unspecified; I13.0 Hypertensive heart and chronic kidney disease with heart failure and stage 1 through stage 4 chronic kidney disease, or unspecified chronic kidney disease; I48.19 Other persistent atrial fibrillation; J44.0 Chronic obstructive pulmonary disease with (acute) lower respiratory infection; R17 Unspecified jaundice; D63.1 Anemia in chronic kidney disease; E11.22 Type 2 diabetes mellitus with diabetic chronic kidney disease; E11.65 Type 2 diabetes mellitus with hyperglycemia; E78.5 Hyperlipidemia, unspecified; H91.90 Unspecified hearing loss, unspecified ear; I08.3 Combined rheumatic disorders of mitral, aortic and tricuspid valves; I25.10 Atherosclerotic heart disease of native coronary artery without angina pectoris; I27.20 Pulmonary hypertension, unspecified; N18.32 Chronic kidney disease, stage 3b; R09.02 Hypoxemia; Z96.1 Presence of intraocular lens; Z96.653 Presence of artificial knee joint, bilateral; I25.2 Old myocardial infarction; Z79.51 Long term (current) use of inhaled steroids; Z79.82 Long term (current) use of aspirin; Z79.899 Other long term (current) drug therapy; Z87.891 Personal history of nicotine dependence; Z95.1 Presence of aortocoronary bypass graft; Z95.5 Presence of coronary angioplasty implant and graft; Z11.52 Encounter for screening for COVID-19
CPT/HCPCS: 36415; 71046; 74176; 76770; 78306; 80048; 80053; 80202; 81001; 82533; 82565; 83036; 83605; 83735; 83880; 83935; 84145; 84295; 84300; 84484; 85025; 85610; 85730; 86140; 87040; 87070; 87077; 87186; 87205; 87636; 93005; 93306; 93312; 93320; 93325; 94640; 94760; 96361; 96365; 96375; 99285

== ENCOUNTER 2024-02-22 10:23 | Observation (INO) | payer MEDICARE ==
--- NOTE | 2024-02-22 11:08 | ED ---
General Adult HPI - General Chief complaint: Recheck/Abnormal Lab/Rx Stated complaint: Port Change Time Seen by Provider: 02/22/24 10:42 Source: patient, family, RN notes reviewed Mode of arrival: wheelchair Limitations: no limitations - History of Present Illness Initial comments: Patient is a 73-year-old male present to the emergency department with n onfunctional dialysis catheter. Patient states it was placed a couple weeks ago with Dr. Markham. Patient states yesterday during dialysis they were unable to do even a half of dialysis. Patient was advised to come to the hospital. Patient is concerned that he is filling up with fluid. Patient has edema of the abdomen and legs. Patient does have some dyspnea that is increased from baseline. - Related Data Home Medications Medication Instructions Recorded Confirmed Fluticasone/Umeclidin/Vilanter 1 puff INHALATION RT-DAILY 11/09/21 12/21/23 [Trelegy Ellipta 100-62.5-25] Aspirin 81 mg PO DAILY 05/19/22 12/21/23 Liraglutide [Victoza 3-Casey] 1.8 mg SQ DAILY 10/17/22 12/21/23 Atorvastatin [Lipitor] 80 mg PO HS 11/07/22 12/21/23 Ipratropium/Albuter 20-100Mcg 1 puff INHALATION RT-QID PRN 11/07/22 12/21/23 [Combivent Respimat 20-100Mcg Inhaler] allopurinoL 100 mg PO DAILY 07/02/23 12/21/23 ALPRAZolam [Xanax] 0.25 - 0.5 mg PO DAILY PRN 12/21/23 12/21/23 Ammonium Lactate Cream [Lac-Hydrin 1 applic TOPICAL BID PRN 12/21/23 12/21/23 12% Cream] Bumetanide [BUMEX] 2 mg PO BID 12/21/23 12/21/23 Clobetasol Propionate [Temovate 1 applic TOPICAL BID PRN 12/21/23 12/21/23 0.05% Oint] HYDROcodone/APAP 10-325MG [[place] 1 tab PO BID PRN 12/21/23 12/21/23 10-325] Midodrine [ProAmatine] 5 mg PO DAILY PRN 12/21/23 12/21/23 Vit C/E/Zn/Coppr/Lutein/Zeaxan 1 cap PO BID 12/21/23 12/21/23 [Preservision Areds 2 Softgel] hydrOXYzine HCL [Atarax] 10 mg PO DAILY 12/21/23 12/21/23 Previous Rx's Medication Instructions Recorded Acetaminophen Tab [Tylenol] 650 mg PO Q6HR PRN tab 03/19/23 Metoprolol Tartrate [Lopressor] 12.5 mg PO BID #0 03/19/23 Linezolid [Zyvox] 600 mg PO Q12H #20 tab 12/28/23 Sodium Bicarbonate Tab 650 mg PO TID #90 tab 12/28/23 Allergies Allergy/AdvReac Type Severity Reaction Status Date / Time protamine Allergy Anaphylaxis Verified 02/22/24 10:38 apixaban [From Eliquis] AdvReac "stomach Verified 02/22/24 10:38 bleeds" dapagliflozin [From Farxiga] AdvReac Itching Verified 02/22/24 10:38 empagliflozin AdvReac Itching Verified 02/22/24 10:38 [From Jardiance] Review of Systems ROS Statement: Those systems with pertinent positive or pertinent negative responses have been documented in the HPI. ROS Other: All systems not noted in ROS Statement are negative. Constitutional: Denies: fever Eyes: Denies: eye pain Respiratory: Reports: as per HPI, dyspnea Cardiovascular: Reports: dyspnea on exertion, orthopnea, edema. Denies: chest pain Endocrine: Reports: fatigue Past Medical History Past Medical History: Atrial Fibrillation, Coronary Artery Disease (CAD), COPD, Diabetes Mellitus, GI Bleed, Hearing Disorder / Deafness, Hyperlipidemia, Hypertension, Myocardial Infarction (NE), Renal Disease Additional Past Medical History / Comment(s): Previous bypass surgery, previous repair of the mitral valve, comp to get postoperative course requiring dialysis for renal failure and the patient also developed GI bleed requiring blood transfusions recent significant developed a chronic loculated left-sided pleural effusion. Other comorbidities include COPD, chronic systolic heart failure with an ejection fraction 4045%, hypertension, hyperlipidemia, paroxysmal A. fib Last Myocardial Infarction Date:: 11/2021 History of Any Multi-Drug Resistant Organisms: None Reported Date of last positivie culture/infection: 12/21/23 MDRO Source:: blood Past Surgical History: Back Surgery, Heart Catheterization With Stent, Joint Replacement, Orthopedic Surgery Additional Past Surgical History / Comment(s): BILATERAL KNEE REPLACEMENTS, BILATERAL SHOULDER SURGERY, ONE CARDIAC STENT, back surgery X2 (lumbar decompression and fusion), BACK INJECTIONS, COLONOSCOPY, BILATERAL CATARACTS REMOVED WITH LENS IMPLANTS, Cardioversion. ganglion cyst rt wrist removed Past Anesthesia/Blood Transfusion Reactions: No Reported Reaction Additional Past Anesthesia/Blood Transfusion Reaction / Comment(s): no issues with blood transfusions Date of Last Stent Placement:: 2000 Past Psychological History: No Psychological Hx Reported Smoking Status: Former smoker - Past Family History Father Family Medical History: No Reported History Mother Family Medical History: No Reported History General Exam Limitations: no limitations General appearance: alert, in no apparent distress Head exam: Present: normocephalic Eye exam: Present: normal appearance Neck exam: Present: normal inspection Respiratory exam: Present: normal lung sounds bilaterally Cardiovascular Exam: Present: regular rate, normal rhythm, systolic murmur GI/Abdominal exam: Present: soft, other (Patient does have some edema of the). Absent: tenderness Extremities exam: Present: pedal edema. Absent: calf tenderness Neurological exam: Present: alert Psychiatric exam: Present: normal affect, normal mood Skin exam: Present: normal color Course Vital Signs 02/22/24 02/22/24 10:34 11:16 Temperature 97.8 F Pulse Rate 78 75 Respiratory 18 18 Rate Blood Pressure 99/60 89/52 O2 Sat by Pulse 95 95 Oximetry EKG Findings - EKG Results: EKG: interpreted by ERMD (First-degree AV block with a [place] of 224. There is some T wave inversion inferior and anterior), sinus rhythm, normal axis, normal QRS Medical Decision Making - Medical Decision Making MDM was pt. sent in by a medical professional or institution (, PA, DRAMATIC COACH, [facility], hospital, or prison...) When possible be specific @ -Patient was advised by dialysis yesterday to come to the hospital Did you speak to anyone other than the patient for history (EMS, parent, family, police, friend...)? What history was obtained from this source @ -Family is present and helps provide history that he was advised to come to the hospital about a dialysis nurse Did you review nursing and triage notes (agree or disagree)? Why? @ -I reviewed and agree with nursing and triage notes Were old charts reviewed (outside hosp., previous admission, EMS record, old EKG , old radiological studies, urgent care reports/EKG's, prison records)? Report findings @ -Previous chest x-ray reviewed showing similar postoperative changes Differential Diagnosis (chest pain, altered mental status, abdominal pain women, abdominal pain men, vaginal bleeding, weakness, fever, dyspnea, syncope, headache, dizziness, GI bleed, back pain, seizure, CVA, palpatations, mental he alth, musculoskeletal)? @ -Differential Dyspnea: Coronary syndrome, arrhythmia, tamponade, asthma, COPD, pulmonary embolism, pneumonia, pneumothorax, pulmonary effusion, anaphylaxis, diabetic ketoacidosis, flailed chest, pulmonary contusion, diaphragmatic rupture, anemia, neuromuscular, this is not meant to be an all-inclusive list. EKG interpreted by me (3pts min.). @ -As above X-rays interpreted by me (1pt min.). @ -Chest x-ray shows postoperative changes of sternotomy and heart valve. Patient also has dialysis catheter and remote rib fractures. increased interstitial markings. CT interpreted by me (1pt min.). @ -None done U/S interpreted by me (1pt. min.). @ -None done What testing was considered but not performed or refused? (CT, X-rays, U/S, labs)? Why? @ -None What meds were considered but not given or refused? Why? @ -None Did you discuss the management of the patient with other professionals (professionals i.e. , PA, DRAMATIC COACH, lab, RT, psych nurse, social services director, aging box hand, teacher, legal officer, leather case finisher)? Give summary @ -Case discussed with Dr. aSrah brady who will admit covering Dr. Henry for us. Case also discussed with Dr. Markham who will consult for dialysis catheter exchange Was smoking cessation discussed for >3mins.? @ -No Was critical care preformed (if so, how long)? @ -No Were there social determinants of health that impacted care today? How? (Home lessness, low income, unemployed, alcoholism, drug addiction, transportation, low edu. Level, literacy, decrease access to med. care, senior care, rehab)? @ -No Was there de-escalation of care discussed even if they declined (Discuss DNR or withdrawal of care, Hospice)? DNR status @ -No What co-morbidities impacted this encounter? (DM, HTN, Smoking, COPD, CAD, Cancer, CVA, ARF, Chemo, Hep., AIDS, mental health diagnosis, sleep apnea, morbid obesity)? @ -End-stage renal disease on hemodialysis Was patient admitted / discharged? Hospital course, mention meds given and route, prescriptions, significant lab abnormalities, going to OR and other pertinent info. @ -Patient and family updated. Patient will be admitted for catheter exchange and dialysis, admission orders written. Consults placed Undiagnosed new problem with uncertain prognosis? @ -No Drug Therapy requiring intensive monitoring for toxicity (Heparin, Nitro, Insulin, Cardizem)? @ -No Were any procedures done? @ -No Diagnosis/symptom? @ -Edema, dialysis catheter malfunction, end-stage renal disease on hemodialysis Acute, or Chronic, or Acute on Chronic? @ -Acute, acute, chronic Uncomplicated (without systemic symptoms) or Complicated (systemic symptoms)? @ -Default Side effects of treatment? @ -No Exacerbation, Progression, or Severe Exacerbation? @ -No Poses a threat to life or bodily function? How? (Chest pain, [place], NE, pneumonia, PE, COPD, DKA, ARF, appy, cholecystitis, CVA, Diverticulitis, Homicidal, Suicidal, threat to staff... and all critical care pts) @ -Pulmonary and renal function - Lab Data Result diagrams: 02/22/24 11:15 Lab Results 02/22/24 02/22/24 Range/Units 11:15 11:15 WBC 9.6 (3.8-10.6) k/uL RBC 3.44 L (4.30-5.90) m/uL Hgb 9.6 L (13.0-17.5) gm/dL Hct 32.5 L (39.0-53.0) % MCV 94.4 (80.0-100.0) fL MCH 27.9 (25.0-35.0) pg MCHC 29.6 L (31.0-37.0) g/dL RDW 19.9 H (11.5-15.5) % Plt Count 175 (150-450) k/uL MPV 10.3 Neutrophils % 84 % Lymphocytes % 4 % Monocytes % 9 % Eosinophils % 1 % Basophils % 1 % Neutrophils # 8.0 H (1.3-7.7) k/uL Lymphocytes # 0.4 L (1.0-4.8) k/uL Monocytes # 0.9 (0-1.0) k/uL Eosinophils # 0.1 (0-0.7) k/uL Basophils # 0.1 (0-0.2) k/uL Hypochromasia Marked Poikilocytosis Slight Anisocytosis Slight Macrocytosis Slight PT 13.4 H (10.0-12.5) sec INR 1.3 H (<1.2) APTT 25.5 (22.0-30.0) sec Disposition Clinical Impression: Hemodialysis catheter malfunction, End-stage renal disease on hemodialysis, Edema Disposition: ADMITTED IP TO THIS HOSP Is patient prescribed a controlled substance at d/c from ED?: No Referrals: Clyde Leal DO [Primary Care Provider] - 1-2 days
[2024-02-22 11:23] LABS: Anisocytosis Slight; Basophils # (A) 0.1 k/uL (0-0.2); Basophils % (A) 1 %; Eosinophils # (A) 0.1 k/uL (0-0.7); Eosinophils % (A) 1 %; HCT 32.5 % (39.0-53.0); HGB 9.6 gm/dL (13.0-17.5); Hypochromasia Marked; Lymphocytes # (A) 0.4 k/uL (1.0-4.8); Lymphocytes % (A) 4 %; MCH 27.9 pg (25.0-35.0); MCHC 29.6 g/dL (31.0-37.0); MCV 94.4 fL (80.0-100.0); Macrocytosis Slight; Mean Platelet Volume 10.3; Monocytes # (A) 0.9 k/uL (0-1.0); Monocytes % (A) 9 %; Neutrophils % (A) 84 %; Platelet Count 175 k/uL (150-450); Poikilocytosis Slight; RBC 3.44 m/uL (4.30-5.90); RDW 19.9 % (11.5-15.5); WBC 9.6 k/uL (3.8-10.6)
[2024-02-22 11:32] LABS: INR 1.3 (<1.2); Partial Thromboplastin Time 25.5 sec (22.0-30.0); Prothrombin Time 13.4 sec (10.0-12.5)
--- NOTE | 2024-02-22 11:45 | XR ---
EXAMINATION TYPE: XR chest 2V DATE OF EXAM: 02/22/2024 11:27 AM CLINICAL INDICATION: Male, 73 years old with history of Weakness; [facility] COMPARISON: Chest radiographs from 12/21/2023 TECHNIQUE: XR chest 2V Frontal view of the chest. FINDINGS: Lungs/Pleura: Consolidation changes in the lung base are unchanged from prior. Bilateral pleural effu sions. No evidence for pneumothorax. Pulmonary vascularity: Pulmonary vascular congestion. Heart/mediastinum: Cardiomediastinal silhouette is enlarged. Post aortic valve repair changes. Musculoskeletal: No acute osseous pathology. Midline sternotomy wires are noted. Rotator cuff repair anchors bilaterally. Severe degeneration changes of the spine. Other findings: None Lines/Tubes: Right internal jugular central venous catheter with distal tip at the cavoatrial junction. IMPRESSION: Right central venous catheter with tip in appropriate position. Cardiomegaly, pulmonary vascular congestion and bilateral pleural effusions. Correlate with BNP for c ongestive heart failure. Consolidation changes in the lung bases are unchanged from 12/21/2023. [facility], , 02/22/2024 11:43 AM
[2024-02-22] MEDS ORDERED: NALOXONE 0.4 MG/ML 1 ML VIAL IV PRN (12:47)
[2024-02-22 12:51] LABS: ALT 12 U/L (4-49); AST 29 U/L (17-59); African American GFR (CKD) 23 (>60 ml/min/1.73 sqM); Albumin 3.2 g/dL (3.5-5.0); Alkaline Phosphatase 125 U/L (38-126); Blood Urea Nitrogen 32 mg/dL (9-20); Calcium 8.3 mg/dL (8.4-10.2); Carbon Dioxide 30 mmol/L (22-30); Glucose 219 mg/dL (74-99); Non-African American GFR(CKD) 20 (>60 ml/min/1.73 sqM); Phosphorus 3.9 mg/dL (2.5-4.5); Potassium 3.7 mmol/L (3.5-5.1); Sodium 137 mmol/L (137-145); Total Bilirubin 0.9 mg/dL (0.2-1.3); Total Protein 5.7 g/dL (6.3-8.2)
[2024-02-22 13:05] LABS: Chloride 99 mmol/L (98-107)
[2024-02-22 13:51] LABS: Anion Gap 8 mmol/L
[2024-02-22] MEDS: SODIUM CHLORIDE 0.9% 500 ML 500 ML IV ONE (14:10)
[2024-02-22] MEDS: MIDAZOLAM 2 MG/2 ML VIAL IVP ONE (14:16)
[2024-02-22] MEDS: fentaNYL (PF) 50 MCG/ML 2 ML AMP IVP ONE (14:16)
[2024-02-22] MEDS: LIDOCAINE 1% INJ 10MG/ML (20 ML MDV) SQ ONE (14:18)
--- NOTE | 2024-02-22 14:32 | P.NPCON ---
History of Present Illness - Reason for Consult Consult date: 02/22/24 - Chief Complaint Catheter Dysfunction - History of Present Illness Patient is a 73-year-old male present to the emergency department with nonfunctional dialysis catheter. Patient states it was placed a couple weeks ago with Dr. Markham. Patient states yesterday during dialysis they were unable to do even a half of dialysis. Patient was advised to come to the hospital. Patient is concerned that he is filling up with fluid. Patient has edema of the abdomen and legs. Patient does have some dyspnea that is increased from baseline. patient is awake, comfortable, no acute distress. Examination of the heart S1 and S2 Examination of the lungs bilateral breath sounds are heard Abdomen is soft nontender obese Examination lower extremity shows no edema Review of Systems Constitutional: Reports as per HPI Past Medical History Past Medical History: Atrial Fibrillation, Coronary Artery Disease (CAD), COPD, Diabetes Mellitus, GI Bleed, Hearing Disorder / Deafness, Hyperlipidemia, Hypertension, Myocardial Infarction ([place]), Renal Disease Additional Past Medical History / Comment(s): Previous bypass surgery, previous repair of the mitral valve, comp to get postoperative course requiring dialysis for renal failure and the patient also developed GI bleed requiring blood transfusions recent significant developed a chronic loculated left-sided pleural effusion. Other comorbidities include COPD, chronic systolic heart failure with an ejection fraction 4045%, hypertension, hyperlipidemia, paroxysmal A. fib Last Myocardial Infarction Date:: 11/2021 History of Any Multi-Drug Resistant Organisms: None Reported Date of last positivie culture/infection: 12/21/23 MDRO Source:: blood Past Surgical History: Back Surgery, Heart Catheterization With Stent, Joint Replacement, Orthopedic Surgery Additional Past Surgical History / Comment(s): BILATERAL KNEE REPLACEMENTS, BILATERAL SHOULDER SURGERY, ONE CARDIAC STENT, back surgery X2 (lumbar decompression and fusion), BACK INJECTIONS, COLONOSCOPY, BILATERAL CATARACTS REMOVED WITH LENS IMPLANTS, Cardioversion. ganglion cyst rt wrist removed Past Anesthesia/Blood Transfusion Reactions: No Reported Reaction Additional Past Anesthesia/Blood Transfusion Reaction / Comment(s): no issues with blood transfusions Date of Last Stent Placement:: 2000 Past Psychological History: No Psychological Hx Reported Smoking Status: Former smoker - Past Family History Father Family Medical History: No Reported History Mother Family Medical History: No Reported History Medications and Allergies Home Medications Medication Instructions Recorded Confirmed Type Fluticasone/Umeclidin/Vilanter 1 puff INHALATION RT-DAILY 11/09/21 02/22/24 History [Trelegy Ellipta 100-62.5-25] Atorvastatin [Lipitor] 80 mg PO HS 11/07/22 02/22/24 History allopurinoL 100 mg PO DAILY 07/02/23 02/22/24 History ALPRAZolam [Xanax] 0.25 - 0.5 mg PO DAILY PRN 12/21/23 02/22/24 History HYDROcodone/APAP 10-325MG [[place] 1 tab PO BID PRN 12/21/23 02/22/24 History 10-325] Vit C/E/Zn/Coppr/Lutein/Zeaxan 1 cap PO BID 12/21/23 02/22/24 History [Preservision Areds 2 Softgel] Albuterol Sulfate [Albuterol 2 puff INHALATION RT-Q6H PRN 02/22/24 02/22/24 History Sulfate Hfa] Aspirin EC [Ecotrin Low Dose] 81 mg PO DAILY 02/22/24 02/22/24 History Bacitracin Zinc Oint 1 applic TOPICAL BID 02/22/24 02/22/24 History Cefuroxime [Ceftin] 250 mg PO BID 02/22/24 02/22/24 History Ipratropium-Albuterol Nebulize 3 ml INHALATION RT-QID 02/22/24 02/22/24 History [Duoneb 0.5 mg-3 mg/3 ml Soln] Liraglutide [Victoza 3-Casey] 1.8 mg SQ DAILY 02/22/24 02/22/24 History Metoprolol Tartrate [Lopressor] 12.5 mg PO DAILY 02/22/24 02/22/24 History Midodrine HCl [ProAmatine] 10 mg PO AC-TID 02/22/24 02/22/24 History Midodrine HCl [ProAmatine] 10 mg PO DAILY PRN 02/22/24 02/22/24 History Multivitamins, Thera [Multivitamin 1 tab PO DAILY 02/22/24 02/22/24 History (formulary)] Sennosides [Senokot] 8.6 mg PO BID PRN 02/22/24 02/22/24 History Torsemide [Soaanz] 40 mg PO DAILY 02/22/24 02/22/24 History clindamycin HCL [Cleocin] 300 mg PO TID 02/22/24 02/22/24 History Allergies Allergy/AdvReac Type Severity Reaction Status Date / Time protamine Allergy Anaphylaxis Verified 02/22/24 13:52 apixaban [From Eliquis] AdvReac "stomach Verified 02/22/24 13:52 bleeds" dapagliflozin [From Farxiga] AdvReac Itching Verified 02/22/24 13:52 empagliflozin AdvReac Itching Verified 02/22/24 13:52 [From Jardiance] Physical Exam Vitals: Vital Signs Temp Pulse Resp BP Pulse Ox 02/22/24 13:15 71 18 97/64 96 02/22/24 11:16 75 18 89/52 95 02/22/24 10:34 97.8 F 78 18 99/60 95 Intake and Output 02/21/24 02/22/24 02/22/24 22:59 06:59 14:59 Other: Weight 80.195 kg Results - Lab Results Most recent lab results Calcium 8.3 mg/dL (8.4-10.2) L 02/22/24 11:15 Phosphorus 3.9 mg/dL (2.5-4.5) 02/22/24 11:15 Magnesium 2.0 mg/dL (1.6-2.3) 02/22/24 11:15 02/22/24 11:15 02/22/24 11:15 Assessment and Plan Assessment: 1. ESRD on HD MWF 2. Permcath dysfunction 3. Fluid overload 4. Anemia with ESRD 5. HTN with ESRD 6. MBD with ESRD Plan: Vascular surgery for Permcath exchange today HD planned after catheter exchange Continue home medications Clear for discharge tomorrow if catheter works well with HD today
[2024-02-22] MEDS ORDERED: ALBUTEROL HFA INHALER INHALATION PRN (15:38)
[2024-02-22] MEDS ORDERED: SENNOSIDES 8.6 MG TAB PO PRN (15:38)
--- NOTE | 2024-02-22 15:40 | P.HPIM ---
History of Present Illness H&P Date: 02/22/24 History of present illness: 73-year-old male patient with past medical history significant for coronary artery disease status post CABG, history of atrial fibrillation not on anticoagulation due to history of GI bleed, history of end-stage renal disease on hemodialysis Saturday, hearing disorder, diabetes mellitus, hypertension, hyperlipidemia history of loculated left-sided pleural effusion, COPD, ischemic cardiomyopathy with EF 40 to 45% who was brought to the ED due to nonfunctional hemodialysis catheter. Patient stated that he had a hemodialysis catheter replaced a couple of weeks ago with Dr. Markham, yesterday patient went for hemodialysis, they were unable to complete even half of hemodialysis, patient was advised to come to the hospital. Patient reported that he got concerned as patient continued to have swelling in the legs, abdomen and upper extremities, also reported shortness of breath increased from baseline. Patient denied any fever, chills, sore throat, productive cough, nausea vomiting diarrhea constipation abdominal pain dysuria urgency frequency weakness or numbness of extremities. Patient afebrile, heart rate 78, respiratory rate 18, blood pressure 99/60, saturating 95% on room air. WBC 9.6, hemoglobin 9.6, platelet 175. INR 1.3. Sodium 137 potassium 3.7 BUN 32 creatinine 2.96. REVIEW OF SYSTEMS: CONSTITUTIONAL: No fever, no malaise, no fatigue. HEENT: No recent visual problems or hearing problems. Denied any sore throat. CARDIOVASCULAR: No chest pain, orthopnea, PND, no palpitations, no syncope. PULMONARY: No shortness of breath, no cough, no hemoptysis. GASTROINTESTINAL: No diarrhea, no nausea, no vomiting, no abdominal pain. NEUROLOGICAL: No headaches, no weakness, no numbness. HEMATOLOGICAL: Denies any bleeding or petechiae. GENITOURINARY: Denies any burning micturition, frequency, or urgency. MUSCULOSKELETAL/RHEUMATOLOGICAL: Denies any joint pain, swelling, or any muscle pain. ENDOCRINE: Denies any polyuria or polydipsia. The rest of the 14-point review of systems is negative. PHYSICAL EXAMINATION: GENERAL: The patient is A&O x3, NAD HEENT: EOMI, Sclerae anicteric, Moist Mucous membranes Neck: Supple, Non tender, No JVD PULMONARY: Equal breath souds B/L, No wheezing, No crackles. CARDIOVASCULAR: S1, S2 present. No murmurs, rubs, or gallops. ABDOMEN: Soft, nontender, nondistended, normoactive bowel sounds. No guarding or rebound tenderness. MUSCULOSKELETAL: + edema, No cyanosis. No clubbing. Normal ROM. Intact peripheral pulses. EXTREMITIES: No cyanosis, clubbing, or pedal edema. NEUROLOGICAL: CN 2-12 grossly intact. No FND Assessment and plan: ESRD on HD MWF: PermCath malfunction: Fluid overload: Acute on chronic systolic CHF: Ischemic cardiomyopathy with EF 40 to 45%: History of CAD/CABG: COPD: Anemia of chronic disease Diabetes mellitus: Hypertension Hyperlipidemia Paroxysmal atrial fibrillation: Not on anticoagulation History of GI bleed: Plan: Continue home meds Vascular surgery consultedhemodialysis catheter exchanged today. Nephrology consulted, plan for hemodialysis after catheter exchange. Monitor BMP Monitor fluid status, respiratory status DVT prophylaxis SCD Monitor vital signs and labs Labs and medication were reviewed. Continue same treatment. Resume home medication. Further recommendations as per clinical course of the patient Dictation was produced using [employer] dictation software. please excuse any grammatical, word or spelling errors. Past Medical History Past Medical History: Atrial Fibrillation, Coronary Artery Disease (CAD), COPD, Diabetes Mellitus, GI Bleed, Hearing Disorder / Deafness, Hyperlipidemia, Hypertension, Myocardial Infarction ([place]), Renal Disease Additional Past Medical History / Comment(s): Previous bypass surgery, previous repair of the mitral valve, comp to get postoperative course requiring dialysis for renal failure and the patient also developed GI bleed requiring blood transfusions recent significant developed a chronic loculated left-sided pleural effusion. Other comorbidities include COPD, chronic systolic heart failure with an ejection fraction 4045%, hypertension, hyperlipidemia, paroxysmal A. fib Last Myocardial Infarction Date:: 11/2021 History of Any Multi-Drug Resistant Organisms: None Reported Date of last positivie culture/infection: 12/21/23 MDRO Source:: blood Past Surgical History: Back Surgery, Heart Catheterization With Stent, Joint Replacement, Orthopedic Surgery Additional Past Surgical History / Comment(s): BILATERAL KNEE REPLACEMENTS, BILATERAL SHOULDER SURGERY, ONE CARDIAC STENT, back surgery X2 (lumbar decompression and fusion), BACK INJECTIONS, COLONOSCOPY, BILATERAL CATARACTS REMOVED WITH LENS IMPLANTS, Cardioversion. ganglion cyst rt wrist removed Past Anesthesia/Blood Transfusion Reactions: No Reported Reaction Additional Past Anesthesia/Blood Transfusion Reaction / Comment(s): no issues with blood transfusions Date of Last Stent Placement:: 2000 Past Psychological History: No Psychological Hx Reported Smoking Status: Former smoker - Past Family History Father Family Medical History: No Reported History Mother Family Medical History: No Reported History Medications and Allergies Home Medications Medication Instructions Recorded Confirmed Type Fluticasone/Umeclidin/Vilanter 1 puff INHALATION RT-DAILY 11/09/21 02/22/24 History [Trelegy Ellipta 100-62.5-25] Atorvastatin [Lipitor] 80 mg PO HS 11/07/22 02/22/24 History allopurinoL 100 mg PO DAILY 07/02/23 02/22/24 History ALPRAZolam [Xanax] 0.25 - 0.5 mg PO DAILY PRN 12/21/23 02/22/24 History HYDROcodone/APAP 10-325MG [[place] 1 tab PO BID PRN 12/21/23 02/22/24 History 10-325] Vit C/E/Zn/Coppr/Lutein/Zeaxan 1 cap PO BID 12/21/23 02/22/24 History [Preservision Areds 2 Softgel] Albuterol Sulfate [Albuterol 2 puff INHALATION RT-Q6H PRN 02/22/24 02/22/24 History Sulfate Hfa] Aspirin EC [Ecotrin Low Dose] 81 mg PO DAILY 02/22/24 02/22/24 History Bacitracin Zinc Oint 1 applic TOPICAL BID 02/22/24 02/22/24 History Cefuroxime [Ceftin] 250 mg PO BID 02/22/24 02/22/24 History Ipratropium-Albuterol Nebulize 3 ml INHALATION RT-QID 02/22/24 02/22/24 History [Duoneb 0.5 mg-3 mg/3 ml Soln] Liraglutide [Victoza 3-Casey] 1.8 mg SQ DAILY 02/22/24 02/22/24 History Metoprolol Tartrate [Lopressor] 12.5 mg PO DAILY 02/22/24 02/22/24 History Midodrine HCl [ProAmatine] 10 mg PO AC-TID 02/22/24 02/22/24 History Midodrine HCl [ProAmatine] 10 mg PO DAILY PRN 02/22/24 02/22/24 History Multivitamins, Thera [Multivitamin 1 tab PO DAILY 02/22/24 02/22/24 History (formulary)] Sennosides [Senokot] 8.6 mg PO BID PRN 02/22/24 02/22/24 History Torsemide [Soaanz] 40 mg PO DAILY 02/22/24 02/22/24 History clindamycin HCL [Cleocin] 300 mg PO TID 02/22/24 02/22/24 History Allergies Allergy/AdvReac Type Severity Reaction Status Date / Time protamine Allergy Anaphylaxis Verified 02/22/24 13:52 apixaban [From Eliquis] AdvReac "stomach Verified 02/22/24 13:52 bleeds" dapagliflozin [From Farxiga] AdvReac Itching Verified 02/22/24 13:52 empagliflozin AdvReac Itching Verified 02/22/24 13:52 [From Jardiance] Physical Exam Vitals: Vital Signs Temp Pulse Resp BP Pulse Ox 02/22/24 13:55 72 18 94/59 98 02/22/24 13:15 71 18 97/64 96 02/22/24 11:16 75 18 89/52 95 02/22/24 10:34 97.8 F 78 18 99/60 95 Intake and Output 02/22/24 02/22/24 02/22/24 06:59 14:59 22:59 Intake Total 50 Balance 50 Intake: IV 50 Other: Weight 80.195 kg Results CBC & Chem 7: 02/22/24 11:15 02/22/24 11:15 Labs: Abnormal Lab Results - Last 24 Hours (Table) 02/22/24 02/22/24 02/22/24 Range/Units 11:15 11:15 11:15 RBC 3.44 L (4.30-5.90) m/uL Hgb 9.6 L (13.0-17.5) gm/dL Hct 32.5 L (39.0-53.0) % MCHC 29.6 L (31.0-37.0) g/dL RDW 19.9 H (11.5-15.5) % Neutrophils # 8.0 H (1.3-7.7) k/uL Lymphocytes # 0.4 L (1.0-4.8) k/uL PT 13.4 H (10.0-12.5) sec INR 1.3 H (<1.2) BUN 32 H (9-20) mg/dL Creatinine 2.96 H (0.66-1.25) mg/dL Glucose 219 H (74-99) mg/dL Calcium 8.3 L (8.4-10.2) mg/dL Total Protein 5.7 L (6.3-8.2) g/dL Albumin 3.2 L (3.5-5.0) g/dL
--- NOTE | 2024-02-22 15:42 | P.GSCN ---
History of Present Illness History of present illness: 69-year-old gentleman known to me patient had a right IJ catheter placed 2 weeks ago patient went for dialysis had a difficulty in dialyzing through the catheter. Patient is scheduled to have a dialysis catheter placement History of coronary coronary disease post mitral valve replacement patient also history of hypertension A-fib diabetes Neck is supple patient has a right IJ catheter Chest few crackles at lung bases. Second sound present Abdomen soft nontender Vascular femoral pulses are 1+ bilateral Plan is placement of a new catheter risk and complication discussed Past Medical History Past Medical History: Atrial Fibrillation, Coronary Artery Disease (CAD), COPD, Diabetes Mellitus, GI Bleed, Hearing Disorder / Deafness, Hyperlipidemia, Hypertension, Myocardial Infarction ([place]), Renal Disease Additional Past Medical History / Comment(s): Previous bypass surgery, previous repair of the mitral valve, comp to get postoperative course requiring dialysis for renal failure and the patient also developed GI bleed requiring blood transfusions recent significant developed a chronic loculated left-sided pleural effusion. Other comorbidities include COPD, chronic systolic heart failure with an ejection fraction 4045%, hypertension, hyperlipidemia, paroxysmal A. fib Last Myocardial Infarction Date:: 11/2021 History of Any Multi-Drug Resistant Organisms: None Reported Year Discovered:: 12/21/23 MDRO Source:: blood Past Surgical History: Back Surgery, Heart Catheterization With Stent, Joint Replacement, Orthopedic Surgery Additional Past Surgical History / Comment(s): BILATERAL KNEE REPLACEMENTS, BILATERAL SHOULDER SURGERY, ONE CARDIAC STENT, back surgery X2 (lumbar decompression and fusion), BACK INJECTIONS, COLONOSCOPY, BILATERAL CATARACTS REMOVED WITH LENS IMPLANTS, Cardioversion. ganglion cyst rt wrist removed Past Anesthesia/Blood Transfusion Reactions: No Reported Reaction Additional Past Anesthesia/Blood Transfusion Reaction / Comm: no issues with blood transfusions Date of Last Stent Placement:: 2000 Past Psychological History: No Psychological Hx Reported Smoking Status: Former smoker - Past Family History Father Family Medical History: No Reported History Mother Family Medical History: No Reported History Medications and Allergies Home Medications Medication Instructions Recorded Confirmed Type Fluticasone/Umeclidin/Vilanter 1 puff INHALATION RT-DAILY 11/09/21 02/22/24 History [Trelegy Ellipta 100-62.5-25] Atorvastatin [Lipitor] 80 mg PO HS 11/07/22 02/22/24 History allopurinoL 100 mg PO DAILY 07/02/23 02/22/24 History ALPRAZolam [Xanax] 0.25 - 0.5 mg PO DAILY PRN 12/21/23 02/22/24 History HYDROcodone/APAP 10-325MG [[place] 1 tab PO BID PRN 12/21/23 02/22/24 History 10-325] Vit C/E/Zn/Coppr/Lutein/Zeaxan 1 cap PO BID 12/21/23 02/22/24 History [Preservision Areds 2 Softgel] Albuterol Sulfate [Albuterol 2 puff INHALATION RT-Q6H PRN 02/22/24 02/22/24 History Sulfate Hfa] Aspirin EC [Ecotrin Low Dose] 81 mg PO DAILY 02/22/24 02/22/24 History Bacitracin Zinc Oint 1 applic TOPICAL BID 02/22/24 02/22/24 History Cefuroxime [Ceftin] 250 mg PO BID 02/22/24 02/22/24 History Ipratropium-Albuterol Nebulize 3 ml INHALATION RT-QID 02/22/24 02/22/24 History [Duoneb 0.5 mg-3 mg/3 ml Soln] Liraglutide [Victoza 3-Casey] 1.8 mg SQ DAILY 02/22/24 02/22/24 History Metoprolol Tartrate [Lopressor] 12.5 mg PO DAILY 02/22/24 02/22/24 History Midodrine HCl [ProAmatine] 10 mg PO AC-TID 02/22/24 02/22/24 History Midodrine HCl [ProAmatine] 10 mg PO DAILY PRN 02/22/24 02/22/24 History Multivitamins, Thera [Multivitamin 1 tab PO DAILY 02/22/24 02/22/24 History (formulary)] Sennosides [Senokot] 8.6 mg PO BID PRN 02/22/24 02/22/24 History Torsemide [Soaanz] 40 mg PO DAILY 02/22/24 02/22/24 History clindamycin HCL [Cleocin] 300 mg PO TID 02/22/24 02/22/24 History Allergies Allergy/AdvReac Type Severity Reaction Status Date / Time protamine Allergy Anaphylaxis Verified 02/22/24 13:52 apixaban [From Eliquis] AdvReac "stomach Verified 02/22/24 13:52 bleeds" dapagliflozin [From [facility]] AdvReac Itching Verified 02/22/24 13:52 empagliflozin AdvReac Itching Verified 02/22/24 13:52 [From [facility]] Surgical - Exam Vital Signs Temp Pulse Resp BP Pulse Ox 97.8 F 78 18 99/60 95 02/22/24 10:34 02/22/24 10:34 02/22/24 10:34 02/22/24 10:34 02/22/24 10:34 Results - Labs 02/22/24 11:15 02/22/24 11:15 Abnormal Lab Results - Last 24 Hours (Table) 02/22/24 02/22/24 02/22/24 Range/Units 11:15 11:15 11:15 RBC 3.44 L (4.30-5.90) m/uL Hgb 9.6 L (13.0-17.5) gm/dL Hct 32.5 L (39.0-53.0) % MCHC 29.6 L (31.0-37.0) g/dL RDW 19.9 H (11.5-15.5) % Neutrophils # 8.0 H (1.3-7.7) k/uL Lymphocytes # 0.4 L (1.0-4.8) k/uL PT 13.4 H (10.0-12.5) sec INR 1.3 H (<1.2) BUN 32 H (9-20) mg/dL Creatinine 2.96 H (0.66-1.25) mg/dL Glucose 219 H (74-99) mg/dL Calcium 8.3 L (8.4-10.2) mg/dL Total Protein 5.7 L (6.3-8.2) g/dL Albumin 3.2 L (3.5-5.0) g/dL Diabetes panel 02/22/24 Range/Units 11:15 Sodium 137 (137-145) mmol/L Potassium 3.7 (3.5-5.1) mmol/L Chloride 99 (98-107) mmol/L Carbon Dioxide 30 (22-30) mmol/L BUN 32 H (9-20) mg/dL Creatinine 2.96 H (0.66-1.25) mg/dL Glucose 219 H (74-99) mg/dL Calcium 8.3 L (8.4-10.2) mg/dL AST 29 (17-59) U/L ALT 12 (4-49) U/L Alkaline Phosphatase 125 (38-126) U/L Total Protein 5.7 L (6.3-8.2) g/dL Albumin 3.2 L (3.5-5.0) g/dL Calcium panel 02/22/24 Range/Units 11:15 Calcium 8.3 L (8.4-10.2) mg/dL Phosphorus 3.9 (2.5-4.5) mg/dL Albumin 3.2 L (3.5-5.0) g/dL Pituitary panel 02/22/24 Range/Units 11:15 Sodium 137 (137-145) mmol/L Potassium 3.7 (3.5-5.1) mmol/L Chloride 99 (98-107) mmol/L Carbon Dioxide 30 (22-30) mmol/L BUN 32 H (9-20) mg/dL Creatinine 2.96 H (0.66-1.25) mg/dL Glucose 219 H (74-99) mg/dL Calcium 8.3 L (8.4-10.2) mg/dL Adrenal panel 02/22/24 Range/Units 11:15 Sodium 137 (137-145) mmol/L Potassium 3.7 (3.5-5.1) mmol/L Chloride 99 (98-107) mmol/L Carbon Dioxide 30 (22-30) mmol/L BUN 32 H (9-20) mg/dL Creatinine 2.96 H (0.66-1.25) mg/dL Glucose 219 H (74-99) mg/dL Calcium 8.3 L (8.4-10.2) mg/dL Total Bilirubin 0.9 (0.2-1.3) mg/dL AST 29 (17-59) U/L ALT 12 (4-49) U/L Alkaline Phosphatase 125 (38-126) U/L Total Protein 5.7 L (6.3-8.2) g/dL Albumin 3.2 L (3.5-5.0) g/dL
--- NOTE | 2024-02-22 15:44 | P.PCN ---
Description of Procedure: Preop diagnosis malfunctioning dialysis catheter right jugular approach Postop the same found to have a there was a kink of the dialysis catheter Procedure placement of a 23 cm dilated the right jugular approach Patient brought to the [employer] neck and chest were prepped and draped in Prestel manner 1 g of Kefzol given incision was made in the neck a guidewire was passed which was parked at the inferior vena cava the old catheter was removed. A tunnel was created through the tunnel we brought 23 cm dialysis catheter he dilator was advanced on the top of the guidewire. Then the sheath was advanced over the guidewire. Through this sheath we placed dialysis catheter tip with catheter superior vena cava after injection flushed with heparin saline and hep- locked secured with 0 nylon patient taught the procedure well x-ray of the chest patient will go for dialysis
[2024-02-22] MEDS: IPRATROPIUM-ALBUTEROL 3 ML NEB INHALATION SCH (16:18)
[2024-02-22 17:05] LABS: Glucose,Whole Blood 115 mg/dL (70-110)
[2024-02-22] MEDS: ASPIRIN 81 MG PO SCH (17:09)
[2024-02-22] MEDS: MIDODRINE 5 MG TAB PO SCH (17:09)
[2024-02-22] MEDS: SYMBICORT 80-4.5 MCG INHALER INHALATION SCH (18:38)
[2024-02-22 20:00] LABS: Glucose,Whole Blood 181 mg/dL (70-110)
[2024-02-22 20:36] VITALS: RESP 16
[2024-02-22] MEDS: HYDROcodone/APAP 10-325MG 1 EACH TAB PO PRN (21:55)
[2024-02-22] MEDS: ATORVASTATIN 80 MG TAB PO SCH (21:55)
[2024-02-22] MEDS: ALPRAZolam 0.5 MG TAB PO PRN (23:32)
[2024-02-23 07:41] LABS: Glucose,Whole Blood 121 mg/dL (70-110)
[2024-02-23] MEDS ORDERED: NON FORMULARY DRUG (Fluticasone/Umeclidin/Vilanter [Trelegy Ellipta 100-62.5-25] 1 EACH Bl INHALATION SCH (08:00)
[2024-02-23] MEDS: allopurinoL 100 MG TAB PO SCH (08:30)
[2024-02-23] MEDS: MULTIVITAMINS, THERA 1 EACH TAB PO SCH (08:30)
[2024-02-23] MEDS: METOPROLOL TARTRATE 12.5 MG TAB PO SCH (08:30)
[2024-02-23 09:11] LABS: Hepatitis B Surface Antigen Nonreactive (Nonreactive)
[2024-02-23 10:09] LABS: ALT 17 U/L (10-49); AST 30 U/L (14-35); Albumin 3.3 g/dL (3.8-4.9); Albumin/Globulin Ratio 1.38 Ratio (1.60-3.17); Alkaline Phosphatase 137 U/L (41-126); BUN/Creat Ratio 8.65 Ratio (12.00-20.00); Blood Urea Nitrogen 22.5 mg/dL (9.0-27.0); Calcium 8.4 mg/dL (8.7-10.3); Carbon Dioxide 24.6 mmol/L (21.6-31.8); Chloride 99 mmol/L (96-109); Globulin 2.4 g/dL (1.6-3.3); Glucose 144 mg/dL (70-110); Magnesium 1.9 mg/dL (1.5-2.4); Phosphorus 3.6 mg/dL (2.4-5.1); Potassium 4.2 mmol/L (3.5-5.5); Sodium 137 mmol/L (135-145); Total Bilirubin 0.6 mg/dL (0.3-1.2); Total Protein 5.7 g/dL (6.2-8.2)
[2024-02-23 10:26] LABS: Hepatitis B Surface AB- Quant 3.5 mIU/mL
[2024-02-23 12:07] LABS: Glucose,Whole Blood 181 mg/dL (70-110)
--- NOTE | 2024-02-23 12:23 | P.PN ---
Subjective Progress Note Date: 02/23/24 Patient seen in follow-up for ESRD. Had permcath exchanged yesterday and dialysis completed. Still positional catheter problems after exchange. Vital signs are stable. General: No acute distress. HEENT: Head exam is unremarkable. LUNGS: No audible rhonchi or wheezes. HEART: Rate and Rhythm are regular. ABDOMEN: Nontender. EXTREMITITES: No edema. Objective - Vital Signs Vital signs: Vital Signs Temp 97.7 F 02/23/24 07:25 Pulse 80 02/23/24 08:27 Resp 16 02/23/24 07:25 BP 99/64 02/23/24 07:25 Pulse Ox 96 02/23/24 08:16 FiO2 Intake & Output 02/22/24 02/23/24 02/23/24 18:59 06:59 18:59 Intake Total 590 1230 476 Output Total 5400 Balance 590 -4170 476 Weight 80.195 kg Intake: IV 50 Oral 540 830 476 Hemodialysis 400 Output: Hemodialysis 2900 Hemodialysis Net Amount 2500 - Labs CBC & Chem 7: 02/22/24 11:15 02/23/24 03:54 Labs: Abnormal Lab Results - Last 24 Hours (Table) 02/22/24 02/22/24 02/22/24 Range/Units 11:15 11:15 11:15 RBC 3.44 L (4.30-5.90) m/uL Hgb 9.6 L (13.0-17.5) gm/dL Hct 32.5 L (39.0-53.0) % MCHC 29.6 L (31.0-37.0) g/dL RDW 19.9 H (11.5-15.5) % Neutrophils # 8.0 H (1.3-7.7) k/uL Lymphocytes # 0.4 L (1.0-4.8) k/uL PT 13.4 H (10.0-12.5) sec INR 1.3 H (<1.2) Anion Gap (4.00-12.00) mmol/L BUN 32 H (9-20) mg/dL Creatinine 2.96 H (0.66-1.25) mg/dL Est GFR (CKD-EPI) (>=60) BUN/Creatinine Ratio (12.00-20.00) Ratio Glucose 219 H (74-99) mg/dL POC Glucose (mg/dL) (70-110) mg/dL Calcium 8.3 L (8.4-10.2) mg/dL Alkaline Phosphatase (41-126) U/L Total Protein 5.7 L (6.3-8.2) g/dL Albumin 3.2 L (3.5-5.0) g/dL Albumin/Globulin Ratio (1.60-3.17) Ratio 02/22/24 02/22/24 02/23/24 Range/Units 17:04 19:59 03:54 RBC (4.30-5.90) m/uL Hgb (13.0-17.5) gm/dL Hct (39.0-53.0) % MCHC (31.0-37.0) g/dL RDW (11.5-15.5) % Neutrophils # (1.3-7.7) k/uL Lymphocytes # (1.0-4.8) k/uL PT (10.0-12.5) sec INR (<1.2) Anion Gap 13.40 H (4.00-12.00) mmol/L BUN (9-20) mg/dL Creatinine 2.6 H (0.66-1.25) mg/dL Est GFR (CKD-EPI) 25 L (>=60) BUN/Creatinine Ratio 8.65 L (12.00-20.00) Ratio Glucose 144 H (74-99) mg/dL POC Glucose (mg/dL) 115 H 181 H (70-110) mg/dL Calcium 8.4 L (8.4-10.2) mg/dL Alkaline Phosphatase 137 H (41-126) U/L Total Protein 5.7 L (6.3-8.2) g/dL Albumin 3.3 L (3.5-5.0) g/dL Albumin/Globulin Ratio 1.38 L (1.60-3.17) Ratio 02/23/24 Range/Units 07:39 RBC (4.30-5.90) m/uL Hgb (13.0-17.5) gm/dL Hct (39.0-53.0) % MCHC (31.0-37.0) g/dL RDW (11.5-15.5) % Neutrophils # (1.3-7.7) k/uL Lymphocytes # (1.0-4.8) k/uL PT (10.0-12.5) sec INR (<1.2) Anion Gap (4.00-12.00) mmol/L BUN (9-20) mg/dL Creatinine (0.66-1.25) mg/dL Est GFR (CKD-EPI) (>=60) BUN/Creatinine Ratio (12.00-20.00) Ratio Glucose (74-99) mg/dL POC Glucose (mg/dL) 121 H (70-110) mg/dL Calcium (8.4-10.2) mg/dL Alkaline Phosphatase (41-126) U/L Total Protein (6.3-8.2) g/dL Albumin (3.5-5.0) g/dL Albumin/Globulin Ratio (1.60-3.17) Ratio Assessment and Plan Assessment: 1. ESRD on HD MWF 2. Permcath dysfunction 3. Fluid overload 4. Anemia with ESRD 5. HTN with ESRD 6. MBD with ESRD Plan: Permcath exchange 02/21 HD completed yesterday Continue home medications Discussed with heber hicks for discharge
[2024-02-23 12:53] VITALS: BP 92/56; PULSE 70; TEMP 97.3
--- NOTE | 2024-02-23 13:03 | P.DS ---
Providers Date of admission: 02/22/24 12:47 Expected date of discharge: 02/23/24 Attending physician: Kofi Sousa MD Consults: 02/22/24 12:08 Consult Physician Urgent Consulting Provider: Esvin Markham Consult Reason/Comments: dialysis cath Do you want consulting provider notified?: Already Contacted 02/22/24 12:47 Consult Physician Urgent Consulting Provider: Darlin Boateng Consult Reason/Comments: dialysis Do you want consulting provider notified?: Yes Primary care physician: [facility] Course: Discharge diagnoses: ESRD on HD MWF: PermCath malfunction: Fluid overload: Acute on chronic systolic CHF: Ischemic cardiomyopathy with EF 40 to 45%: History of CAD/CABG: COPD: Anemia of chronic disease Diabetes mellitus: Hypertension Hyperlipidemia Paroxysmal atrial fibrillation: Not on anticoagulation History of GI bleed: Hospital course: 73-year-old male patient with past medical history significant for coronary artery disease status post CABG, history of atrial fibrillation not on anticoagulation due to history of GI bleed, history of end-stage renal disease on hemodialysis Saturday, hearing disorder, diabetes mellitus, hypertension, hyperlipidemia history of loculated left-sided pleural effusion, COPD, ischemic cardiomyopathy with EF 40 to 45% who was brought to the ED due to nonfunctional hemodialysis catheter. Patient stated that he had a hemodialysis catheter replaced a couple of weeks ago with Dr. Markham, yesterday patient went for hemodialysis, they were unable to complete even half of hemodialysis, patient was advised to come to the hospital. Patient reported that he got concerned as patient continued to have swelling in the legs, abdomen and upper extremities, also reported shortness of breath increased from baseline. Patient denied any fever, chills, sore throat, productive cough, nausea vomiting diarrhea constipation abdominal pain dysuria urgency frequency weakness or numbness of extremities. Patient afebrile, heart rate 78, respiratory rate 18, blood pressure 99/60, saturating 95% on room air. WBC 9.6, hemoglobin 9.6, platelet 175. INR 1.3. Sodium 137 potassium 3.7 BUN 32 creatinine 2.96. Patient was admitted hospital for further evaluation and management. Vascular surgery and nephrology was consulted. Patient had PermCath replaced by vascula okay to discharge per nephrology. Patient condition and vital stable at discharge. r surgery on 02/22/2024, underwent successful hemodialysis without issues. Initially had bleeding around PermCath insertion site which was later on stopped after vascular surgery put stitches around rate and with application of pressure dressing. Follow-up with PCP in 1 week. Follow-up with nephrology and vascular surgery as outpatient. PHYSICAL EXAMINATION: GENERAL: The patient is A&O x3, NAD HEENT: EOMI, Sclerae anicteric, Moist Mucous membranes Neck: Supple, Non tender, No JVD PULMONARY: Equal breath souds B/L, No wheezing, No crackles. CARDIOVASCULAR: S1, S2 present. No murmurs, rubs, or gallops. ABDOMEN: Soft, nontender, nondistended, normoactive bowel sounds. No guarding or rebound tenderness. MUSCULOSKELETAL: No edema, No cyanosis. No clubbing. Normal ROM. Intact peripheral pulses. EXTREMITIES: No cyanosis, clubbing, or pedal edema. NEUROLOGICAL: CN 2-12 grossly intact. No FND SKIN: No rashes. Dictation was produced using [employer] dictation software. please excuse any grammatical, word or spelling errors. Plan - Discharge Summary Discharge Rx Participant: No New Discharge Prescriptions: Continue Atorvastatin [Lipitor] 80 mg PO HS Vit C/E/Zn/Coppr/Lutein/Zeaxan [Preservision Areds 2 Softgel] 1 cap PO BID HYDROcodone/APAP 10-325MG [[place]rem 10-325] 1 tab PO BID PRN PRN Reason: Pain ALPRAZolam [Xanax] 0.25 - 0.5 mg PO DAILY PRN PRN Reason: SLEEP/ANXIETY Multivitamins, Thera [Multivitamin (formulary)] 1 tab PO DAILY Aspirin EC [Ecotrin Low Dose] 81 mg PO DAILY Torsemide [Soaanz] 40 mg PO DAILY clindamycin HCL [Cleocin] 300 mg PO TID Sennosides [Senokot] 8.6 mg PO BID PRN PRN Reason: Constipation Ipratropium-Albuterol Nebulize [Duoneb 0.5 mg-3 mg/3 ml Soln] 3 ml INHALATION RT-QID Fluticasone/Umeclidin/Vilanter [Trelegy Ellipta 100-62.5-25] 1 puff INHALATION RT-DAILY allopurinoL 100 mg PO DAILY Albuterol Sulfate [Albuterol Sulfate Hfa] 2 puff INHALATION RT-Q6H PRN PRN Reason: Shortness Of Breath Metoprolol Tartrate [Lopressor] 12.5 mg PO DAILY Midodrine HCl [ProAmatine] 10 mg PO DAILY PRN PRN Reason: before Dialysis low bp Liraglutide [Victoza 3-Casey] 1.8 mg SQ DAILY Midodrine HCl [ProAmatine] 10 mg PO AC-TID Cefuroxime [Ceftin] 250 mg PO BID Bacitracin Zinc Oint 1 applic TOPICAL BID Discharge Medication List Fluticasone/Umeclidin/Vilanter [Trelegy Ellipta 100-62.5-25] 1 puff INHALATION RT-DAILY 11/09/21 [History] Atorvastatin [Lipitor] 80 mg PO HS 11/07/22 [History] allopurinoL 100 mg PO DAILY 07/02/23 [History] ALPRAZolam [Xanax] 0.25 - 0.5 mg PO DAILY PRN 12/21/23 [History] HYDROcodone/APAP 10-325MG [Orem 10-325] 1 tab PO BID PRN 12/21/23 [History] Vit C/E/Zn/Coppr/Lutein/Zeaxan [Preservision Areds 2 Softgel] 1 cap PO BID 12/21/23 [History] Albuterol Sulfate [Albuterol Sulfate Hfa] 2 puff INHALATION RT-Q6H PRN 02/22/24 [History] Aspirin EC [Ecotrin Low Dose] 81 mg PO DAILY 02/22/24 [History] Bacitracin Zinc Oint 1 applic TOPICAL BID 02/22/24 [History] Cefuroxime [Ceftin] 250 mg PO BID 02/22/24 [History] Ipratropium-Albuterol Nebulize [Duoneb 0.5 mg-3 mg/3 ml Soln] 3 ml INHALATION RT-QID 02/22/24 [History] Liraglutide [Victoza 3-Casey] 1.8 mg SQ DAILY 02/22/24 [History] Metoprolol Tartrate [Lopressor] 12.5 mg PO DAILY 02/22/24 [History] Midodrine HCl [ProAmatine] 10 mg PO AC-TID 02/22/24 [History] Midodrine HCl [ProAmatine] 10 mg PO DAILY PRN 02/22/24 [History] Multivitamins, Thera [Multivitamin (formulary)] 1 tab PO DAILY 02/22/24 [History] Sennosides [Senokot] 8.6 mg PO BID PRN 02/22/24 [History] Torsemide [Soaanz] 40 mg PO DAILY 02/22/24 [History] clindamycin HCL [Cleocin] 300 mg PO TID 02/22/24 [History] Follow up Appointment(s)/Referral(s): Clyde Leal DO [Primary Care Provider] - 1-2 days Esvin Markham MD [STAFF PHYSICIAN] - 1 Week Discharge Disposition: HOME SELF-CARE
[2024-02-23 13:36] LABS: Anisocytosis Slight; Basophils # (A) 0.1 k/uL (0-0.2); Basophils % (A) 1 %; Eosinophils # (A) 0.1 k/uL (0-0.7); Eosinophils % (A) 2 %; HCT 30.8 % (39.0-53.0); HGB 8.8 gm/dL (13.0-17.5); Hypochromasia Marked; Lymphocytes # (A) 0.5 k/uL (1.0-4.8); Lymphocytes % (A) 6 %; MCH 27.2 pg (25.0-35.0); MCHC 28.5 g/dL (31.0-37.0); MCV 95.3 fL (80.0-100.0); Macrocytosis Slight; Mean Platelet Volume 8.8; Monocytes # (A) 0.9 k/uL (0-1.0); Monocytes % (A) 11 %; Neutrophils # (A) 6.2 k/uL (1.3-7.7); Neutrophils % (A) 77 %; Platelet Count 184 k/uL (150-450); RBC 3.23 m/uL (4.30-5.90); RDW 19.2 % (11.5-15.5)
--- NOTE | 2024-02-27 07:48 | IR ---
EXAMINATION TYPE: IR cvc replace peripheral Intraoperative/procedural fluoroscopic services were prov ided. CLINICAL INDICATION:Male, 74 years old with history of HD CATHETER EXCHANGE, 3.3min FLT, 0.18Gy; , PH H Total fluoroscopy time is 3.3 min. DAP: 0.18 Gycm2 uGym2 Please see the operative/procedural note for further details. [facility] Brian Lopez, , 02/27/2024 7:46 AM
== END 2024-02-23 13:57 | disposition home or self-care (01) ==
LOC: EC 10:23 → 5NMEDONC 12:47
PROVIDERS: ADMIT Internal Medicine; ATTEND Internal Medicine
DX: T82.41XA Breakdown (mechanical) of vascular dialysis catheter, initial encounter (principal); Y71.2 Prosthetic and other implants, materials and accessory cardiovascular devices associated with adverse incidents; I25.10 Atherosclerotic heart disease of native coronary artery without angina pectoris; J44.9 Chronic obstructive pulmonary disease, unspecified; I13.2 Hypertensive heart and chronic kidney disease with heart failure and with stage 5 chronic kidney disease, or end stage renal disease; I50.23 Acute on chronic systolic (congestive) heart failure; N18.6 End stage renal disease; E11.22 Type 2 diabetes mellitus with diabetic chronic kidney disease; E78.5 Hyperlipidemia, unspecified; I25.2 Old myocardial infarction; I48.0 Paroxysmal atrial fibrillation; D63.1 Anemia in chronic kidney disease; I25.5 Ischemic cardiomyopathy; Z99.2 Dependence on renal dialysis; Z87.891 Personal history of nicotine dependence; Z95.2 Presence of prosthetic heart valve; Z95.5 Presence of coronary angioplasty implant and graft; Z79.82 Long term (current) use of aspirin; Z79.899 Other long term (current) drug therapy; Z79.85 Long-term (current) use of injectable non-insulin antidiabetic drugs; Z95.1 Presence of aortocoronary bypass graft
CPT/HCPCS: 36415; 36583; 71046; 80053; 83735; 84100; 85025; 85610; 85730; 86706; 87340; 90935; 93005; 94640; 94760; 99285